=== PATIENT | male | born 1950 | race Caucasian/White ===

== ENCOUNTER 2016-06-10 13:35 | Inpatient (IN) | payer MEDICARE, OTHER ==
[~2016-06-10] VITALS: Ht 172.7 cm; Wt 76.8 kg
[~2016-06-10 13:35] MED LIST: /ADVA50050 IN; /ESOM40CA OR; /GLYB5TA OR; /MOXI40TA PO; /TIOT18INH INH; ACET20VL INH; ACET65TA OR; ADVAIR DISKUS 250/50 INH; ALBU83IN IN; ALBUTEROL INH; ALLE25CA OR; ASTE0.15; ASTELIN; ASTEPRO NASAL SPRAY; AVEL1TAB PO; AZIT250T3 PO; B-12100010 PO; BABY81CH OR; BACITAB3 PO; BACT800T OR; BIAX500T OR; CEFD300CAP PO; CEFT1INJ65 IV; CEFT2ADD IV; CEFT2INJ IV; CEFT500T OR; CELE10TA PO; CELE20TA PO; COMBAER6 INH; COMBVENT INH; DALI1TAB2 PO; DELT1TAB PO; FERR325T OR; FERR325T3 PO; FISHCAP PO; FLAG500T PO; FLUC10TA OR; FLUC10TA PO; FOLI1TAB OR; FOLI1TAB2 PO; GLYB25TA PO; GUAI1200 PO; IMOD2TAB14 PO; INSULANT SC; IRON CR PO; KETO0.4S OP; KETO5OPD OD; LASI20TA PO; LEVA750T PO; LIPI80TA PO; LIVA2TAB PO; LOPR50TA OR; LOPRESSOR OR; MEGA D PO; MEGA RED OMEGA PO; META800T82 PO; METO50TA2 PO; METO50TA4 OR; MUCI1TAB18 PO; MUCI600T34 PO; MUCINEX DM PO; MYCOSTATIN SS; NEUR300C OR; NITR0.4S SL; NITR4TASL SL; NYAM10003 SS; OCTAGAM IV; OMEP40CA2 PO; OXYGEN; PERCOCET PO; PERF20NE2 INH; PERFOROMIST INH; PLAV75TA PO; PLAV75TA2 OR; PRAV20TA2 OR; PRED10TA PO; PRED10TA2 OR; PRED10TA2 PO; PRED20TA OR; PRED20TA PO; PRED50TA OR; PRED50TA PO; PREDNISOLONE; PREDOPD; PROBCAP4 PO; PULM0.5S IN; PULM0.5S INH; PULM1SUS INH; RAMI25CA OR; RANI1TAB6 PO; RANI300T OR; ROCE1INJ IV; SALI0.9I2 IV; SKEL-29 PO; SKEL800T5 OR; SODI3NEB INH; THEO1CAP6 PO; THEO200T7 OR; TIOT18INH INH; TOPR50TA OR; TOPR50TA PO; TRAV0.00; TUDO1AER2 INH; TUDORZA PRESSAIR INH; TYLE325T5 PO; VENTAER IN; VENTOLIN; VENTOLIN INH; VICO5TAB OR; VIT D 2000 PO; VIT D 4000 PO; VITA10006 PO; VITA2000 PO; VITA250L PO; VITA500T OR; VITAMIN D 2 PO; ZANT300T OR; ZITH250T OR; ZOCO20TA PO; [UNRECOGNIZED DRUG - CODE] IV; [UNRECOGNIZED DRUG - CODE] IV; [UNRECOGNIZED DRUG - OTHER]; [UNRECOGNIZED DRUG - OTHER]; daliresp PO; loperamide PO; mucinex PO
[2016-06-10] MEDS ORDERED: IPRATROPIUM 0.5MG/ALBUTEROL 2.5MG INH SOL UD 3ML (DUONEB)(J7620) As Ordered ONE (14:22)
[2016-06-10 14:38] LABS: ABG BASE EXCESS 2.8 (-2.0-2.0); ABG DEVICE NASAL CANN; ABG HCO3 27.6 MEQ/L (22.0-26.0); ABG PARTIAL PRESSURE CO2 42.8 mmHg (35.0-45.0); ABG STANDARD HCO3 26.9 MEQ/L (22.0-26.0); ABG TOTAL CO2 28.9 MEQ/L (23.0-31.0); ABG pH (ARTERIAL) 7.427 UNITS (7.350-7.450)
[2016-06-10 14:44] LABS: BASO % 0.3 % (0.0-1.0); EOS % 0.3 % (0.0-3.0); LARGE UNSTAINED CELL # 0.3 K/mm3 (0.0-0.4); LARGE UNSTAINED CELL % 1.9 % (0.0-4.0); LYMPH # 0.5 K/mm3 (1.5-4.5); LYMPH % 3.8 % (24.0-44.0); MEAN CORPUSCULAR HEMOGLOBIN 32.9 pg (27.0-33.0); MEAN CORPUSCULAR HGB CONC 34.3 g/dl (32.0-36.5); MEAN CORPUSCULAR VOLUME 95.8 fl (80.0-96.0); MONO # 0.4 K/mm3 (0.0-0.8); MONO % 3.1 % (0.0-5.0); NEUTROPHILS # 12.7 K/mm3 (1.8-7.7); NEUTROPHILS % 90.6 % (36.0-66.0); PLATELET COUNT, AUTOMATED 209 k/mm3 (150-450); RED CELL DISTRIBUTION WIDTH 12.5 % (11.5-14.5)
[2016-06-10 15:06] LABS: ANION GAP 8 MEQ/L (8-16); BLOOD UREA NITROGEN 17 MG/DL (7-18); CALCIUM LEVEL 9.1 MG/DL (8.8-10.2); CARBON DIOXIDE LEVEL 30 MEQ/L (21-32); CHLORIDE LEVEL 99 MEQ/L (98-107); CREATININE FOR GFR 1.02 MG/DL (0.70-1.30); GLOMERULAR FILTRATION RATE > 60.0 (>49); GLUCOSE, FASTING 147 MG/DL (80-110); SODIUM LEVEL 137 MEQ/L (136-145)
[2016-06-10] MEDS ORDERED: methylPREDNISolone INJ 125 MG/2 ML VIAL (J2930) As Ordered ONE (15:14)
--- NOTE | 2016-06-10 15:21 | REP ---
CHEST, ONE VIEW: HISTORY: Chest pain. COMPARISON: 05/07/2016. There is elevation of the right hemidiaphragm. Increased density is present in the lower lobes consistent with scarring. The heart is normal in size. The pulmonary vasculature is normal in appearance. IMPRESSION: Bibasilar scarring. Signed by Wei Parker MD 06/10/2016 03:49 P
[2016-06-10 15:25] LABS: POTASSIUM SERUM 5.3 MEQ/L (3.5-5.1)
[2016-06-10] MEDS ORDERED: OSELTAMIVIR PHOSPHATE 75 MG CAP (TAMIFLU) As Ordered ONE (16:27)
[2016-06-10] MEDS ORDERED: ACETAMINOPHEN 325 MG TAB As Ordered ONE (16:27)
[2016-06-10] MEDS ORDERED: NITROGLYCERIN 0.4 MG SUBL TABLET SL PRN (18:00)
[2016-06-10] MEDS ORDERED: NS 1,000 ML IV SCH (18:09)
[2016-06-10] MEDS ORDERED: IPRATROPIUM 0.5MG/ALBUTEROL 2.5MG INH SOL UD 3ML (DUONEB)(J7620) NEB PRN (18:15)
[2016-06-10] MEDS ORDERED: ACETAMINOPHEN TAB 650MG DOSE (2X325MG) PO PRN (18:15)
[2016-06-10] MEDS ORDERED: ACETAMINOPHEN 650 MG SUPP PR PRN (18:15)
[2016-06-10] MEDS ORDERED: ONDANSETRON 4MG/2ML VIAL (J2405) IV PRN ×2 (18:15)
[2016-06-10] MEDS ORDERED: ALBU83IN INH (18:20)
[2016-06-10] MEDS ORDERED: IPRA2IN INH (18:20)
[2016-06-10] MEDS ORDERED: CETI10TA PO (18:20)
[2016-06-10] MEDS ORDERED: LOPE2TAB PO (18:20)
[2016-06-10] MEDS ORDERED: [UNRECOGNIZED DRUG - CODE] SC (18:20)
[2016-06-10] MEDS ORDERED: MAGN250T2 PO (18:20)
[2016-06-10] MEDS ORDERED: PRED20TA PO (18:20)
[2016-06-10] MEDS ORDERED: VITATAB11 PO (18:20)
[2016-06-10] MEDS ORDERED: RANI300T PO (18:20)
[2016-06-10] MEDS ORDERED: FLUC200T2 PO (18:21)
[2016-06-10] MEDS ORDERED: HIZENTRA SC SCH (19:15)
[2016-06-10] MEDS ORDERED: SODIUM CHLORIDE 0.9% 1000 ML IV ONE (19:45)
[2016-06-10] MEDS: FORMOTEROL FUMARATE 20 MCG/2 ML INHALATION SOLUTION (PERFOROMIST) INH SCH (20:00)
--- NOTE | 2016-06-10 20:03 | ECGEPIP ---
Stationary ECG Study [facility] - ED Test Date: 2016-06-10 Pat Name: MINOO CASTILLO Department: Room: - Gender: M Clearing Hand: Ria : 1950 Requested By: Mickie Bingham Order Number: [id number] Reading MD: Mickie Bingham Measurements Intervals Garrett Rate: 98 P: 38 NV: 137 QRS: 32 QRSD: 87 T: 81 QT: 326 QTc: 417 Interpretive Statements SINUS RHYTHM NONSPECIFIC ST & T-WAVE ABNORMALITY Electronically Signed On 06-10-2016 20:03:29 EST by Mickie Bingham
--- NOTE | 2016-06-10 20:42 | EDDOCDS ---
Physician Documentation [facility] Name: Casey Velasquez Age: 65 yrs Sex: Male : 1950 Arrival Date: 06/10/2016 Time: 13:35 Bed 15 Private MD: Blaze Ruano FPA Disposition: 06/10/16 17:29 Hospitalization ordered by Billy Angulo for Inpatient Admission. Preliminary diagnosis are Influenza due to identified novel influenza A virus with other manifestations, Chronic obstructive pulmonary disease with (acute) exacerbation. - Bed requested for PCU. - Status is Inpatient Admission. sls1 - Condition is Stable. - Problem is new. - Symptoms have improved. Historical: - Allergies: Isa; PENICILLINS; Quinine Sulfate; - Home Meds: 1. folic acid 1 mg Oral tab 1 tab once daily (Last dose: 06/10/2016 08:30) 2. Tudorza Pressair 400 mcg/actuation inhalation aepb 1 puff every 12 hours (Last dose: 06/10/2016 06:00) 3. albuterol sulfate 1.25 mg/3 mL Nebulizer nebu prn 4. Atrovent 0.02 % Nebulizer soln (Last dose: 06/10/2016 13:00) 5. Toprol XL 50 mg Oral Tb24 1 tab once daily (Last dose: 06/10/2016 08:30) 6. Perforomist 20 mcg/2 mL inhalation nebu 2 times per day (Last dose: 06/10/2016 06:00) 7. budesonide 0.5 mg/2 mL inhalation nbsp 2 times per day (Last dose: 06/10/2016 06:00) 8. Vitamin C 1,000 mg Oral tab daily (Last dose: 06/10/2016 08:30) 9. vitamin b daily (Last dose: 06/10/2016 08:30) 10. Vitamin D3 2,000 unit oral cap daily (Last dose: 06/10/2016 08:30) 11. virginie daily probiotic 1 tab daily (Last dose: 06/10/2016 08:30) 12. ferrous sulfate 325 mg (65 mg iron) Oral tab twice a day (Last dose: 06/10/2016 12:00) 13. magnesium 250mg daily (Last dose: 06/10/2016 12:00) 14. Plavix 75 mg Oral tab 1 tab once daily (Last dose: 06/09/2016 21:00) 15. nitroglycerin 0.4 mg SL subl 1 tab as needed 16. loperamide 2 mg Oral cap 2 caps daily (Last dose: 06/09/2016 21:00) 17. ranitidine HCl 300 mg Oral cap 1 cap nightly (Last dose: 06/09/2016 21:00) 18. Musinex 1200 mg twice a day (Last dose: 06/10/2016 08:30) 19. prednisone 20 mg Oral tab once daily (Last dose: 06/10/2016 08:30) 20. Livalo 2 mg oral tab 1 tab nightly (Last dose: 06/09/2016 21:00) 21. Skelaxin 800 mg Oral tab 3 times per day prn 22. Celexa 20 mg Oral tab 1 tab nightly (Last dose: 06/09/2016 21:00) 23. Zyrtec 10 mg Oral tab 1 tab once daily (Last dose: 06/10/2016 08:30) 24. saline neb twice a day 25. Oxygen 2 L NC daily 26. Hizentra subcutaneous subcutaneous once wkly (Last dose: 06/05/2016) - PMHx: COPD; Emphysema; Heart Disease; - PSHx: Cardiac stents; Laminectomy; Aortic Valve Replacement, Bovine; broncoscopy; - Social history: Smoking status: Patient states former smoker of tobacco. No barriers to communication noted, The patient speaks fluent [place], Speaks appropriately for age. - Family history: Not pertinent. - : The pt / caregiver states he / she is on anticoagulants: Plavix. Home medication list is obtained from the patient. - Exposure Risk Screening:: None identified. Vital Signs: 06/10 13:37 BP 132 / 87; Pulse 103; Resp 26 S; Temp 100.2(O); Pulse Ox 95% on 2 lpm NC; Weight dd6 80.74 kg / 178 lbs (R); Height 5 ft. 8 in. (172.72 cm) (R); 14:29 BP 118 / 66 (auto/); hs1 14:30 Pulse 96 MON; Pulse Ox 94% ; hs1 14:59 BP 124 / 80 (auto/); hs1 15:00 Pulse 108 MON; Pulse Ox 95% ; hs1 15:14 BP 123 / 89 (auto/); hs1 15:15 Pulse 110 MON; Pulse Ox 94% ; hs1 15:29 BP 125 / 83 (auto/); hs1 15:30 Pulse 112 MON; Pulse Ox 93% ; hs1 15:44 BP 128 / 81 (auto/); hs1 15:45 Pulse 114 MON; Pulse Ox 93% ; hs1 15:59 BP 133 / 82 (auto/); hs1 16:00 Pulse 112 MON; Pulse Ox 92% ; hs1 16:14 BP 122 / 81 (auto/); hs1 16:15 Pulse 110 MON; Pulse Ox 92% ; hs1 16:29 BP 123 / 82 (auto/); hs1 16:29 Pulse 108 MON; Resp 20; Temp 103.2(O); Pulse Ox 93% ; hs1 16:44 BP 118 / 80 (auto/); hs1 16:45 Pulse 106 MON; Pulse Ox 93% ; hs1 16:59 BP 120 / 82 (auto/); hs1 17:00 Pulse 104 MON; Pulse Ox 93% ; hs1 17:14 BP 115 / 74 (auto/); hs1 17:15 Pulse 100 MON; Pulse Ox 92% ; hs1 17:29 BP 112 / 71 (auto/); hs1 17:30 Pulse 98 MON; Pulse Ox 93% ; hs1 17:44 BP 111 / 70 (auto/); hs1 17:45 Pulse 94 MON; Pulse Ox 93% ; hs1 17:59 BP 114 / 73 (auto/); hs1 18:00 Pulse 92 MON; Pulse Ox 94% ; hs1 18:14 BP 116 / 74 (auto/); hs1 18:15 Pulse 92 MON; Pulse Ox 94% ; hs1 18:29 BP 133 / 88 (auto/); hs1 18:29 Pulse 92 MON; Pulse Ox 94% ; hs1 18:44 BP 131 / 89 (auto/); hs1 18:44 BP 131 / 89; Pulse 92 MON; Resp 18; Temp 98.6(O); Pulse Ox 94% ; Pain 0/10; hs1 20:33 BP 120 / 77; Pulse 92; Resp 18 S; Temp 98.5(O); Pulse Ox 95% on 2 lpm NC; af2 13:37 Body Mass Index 27.06 (80.74 kg, 172.72 cm) dd6 MDM: 13:59 ECG WITH READING ER PHYS+CARDIAG ordered. EDMS 14:06 -Blood Culture (Adults Only), peripheral from different site, or from device/port/PICC sd1 etc. if present ordered. 14:06 Call Respiratory ordered. sd1 14:06 Web Analyst/Pulse Ox/q 15 min VS ordered. sd1 14:06 IV Saline Lock ordered. sd1 14:06 Oxygen at 4L/Min NC or Home dosage ordered. sd1 14:06 Rhythm Strip to chart ordered. sd1 14:06 -Arterial Blood Gas Ordered. EDMS 14:06 -Blood Culture Ordered. EDMS 14:06 B-Type Natiuretic Peptide Ordered. EDMS 14:06 Basic Metabolic Profile Ordered. EDMS 14:06 CBC with Diff Ordered. EDMS 14:06 Cardiac Injury Profile Ordered. EDMS 14:06 Troponin Ordered. EDMS 14:06 Albuterol-Ipratropium 1 neb Nebulizer every 20 minutes x3 ordered. sd1 14:07 Solu-MEDROL 125 mg IVP once ordered. sd1 14:08 -Influenza A&B Rapid Antigen - Nose Ordered. EDMS 14:08 Chest, 1 View Ordered. EDMS 14:29 Call Respiratory complete. hs1 14:34 -Blood Culture (Adults Only), peripheral from different site, or from device/port/PICC lbd etc. if present complete. 14:38 BLOOD CULTURES Ordered. EDMS 15:19 Financial registration complete. gjb 15:23 [facility] [place] was scanned into [employer] and attached to record. gjb 16:24 Acetaminophen Tablet 650 mg PO once ordered. sd1 16:24 -Arterial Blood Gas Reviewed. sd1 16:24 Basic Metabolic Profile Reviewed. sd1 16:24 CBC with Diff Reviewed. sd1 16:24 -Influenza A&B Rapid Antigen - Nose Reviewed. sd1 16:24 B-Type Natiuretic Peptide Reviewed. sd1 16:24 Cardiac Injury Profile Reviewed. sd1 16:24 Troponin Reviewed. sd1 16:24 Chest, 1 View Reviewed. sd1 16:25 Oseltamivir 75 mg PO once ordered. sd1 17:13 Chest, 1 View Reviewed. sd1 17:14 BED REQUEST+ADM ordered. EDMS 17:39 Admission / Observation Status ordered. EDMS 17:54 Admission / Observation Status ordered. EDMS 18:16 URINALYSIS Ordered. EDMS 18:16 MAGNESIUM LEVEL Ordered. EDMS 18:17 LACTIC ACID LEVEL, LACTATE Ordered. EDMS 18:22 SPUTUM CULTURE AND GRAM STAIN Ordered. EDMS 19:08 CPAP INPATIENT ordered. EDMS 19:34 CBC WITH DIFFERENTIAL Ordered. EDMS 19:34 BASIC METABOLIC PROFILE Ordered. EDMS 19:36 LACTIC ACID LEVEL, LACTATE Ordered. EDMS 19:52 LOW FAT LOW CHOLESTEROL DIET ordered. EDMS Administered Medications: 14:28 Drug: Albuterol-Ipratropium 1 neb [ipratropium-albuterol 0.5 mg-3 mg(2.5 mg base)/3 mL sd7 nebulization soln (1 neb)] Route: Nebulizer; 14:41 Follow up: Response: Nebulizer completed 7 14:47 Drug: Albuterol-Ipratropium 1 neb [ipratropium-albuterol 0.5 mg-3 mg(2.5 mg base)/3 mL sd7 nebulization soln (1 neb)] Route: Nebulizer; 14:55 Follow up: Response: Nebulizer completed sd7 15:05 Drug: Albuterol-Ipratropium 1 neb [ipratropium-albuterol 0.5 mg-3 mg(2.5 mg base)/3 mL sd7 nebulization soln (1 neb)] Route: Nebulizer; 15:51 Follow up: Response: Nebulizer completed 7 15:17 Drug: Solu-MEDROL 125 mg [Solu-Medrol 500 mg intravenous solution (125 mg)] Route: IVP; hs1 Site: right forearm; 16:34 Drug: Acetaminophen 650 mg [acetaminophen 325 mg tablet (2 tabs)] Route: PO; hs1 16:34 Drug: Oseltamivir 75 mg [oseltamivir 75 mg capsule (1 caps)] Route: PO; hs1 Signatures: Dispatcher [employer] EDMS Mickie Bingham MD MD sd1 [address], [employer] lbd Miroslava Arreguin RN RN [facility] Mily FARRELL, SHOLA Randall RN, Hannah, RN RN hs1 Laine Moon RN RN sls1 Loreto Mary RN RN af2 Traci Cheng Samantha RT sd7 The chart was reviewed and I authenticate all verbal orders and agree with the evaluation and treatment provided.Corrections: (The following items were deleted from the chart) 18:21 18:15 LOW FAT LOW CHOLESTEROL DIET ordered. EDMS EDMS 18:58 18:21 CONSISTENT CARBOHYDRATES ordered. EDMS EDMS 19:36 19:34 COMPLETE BLOOD COUNT ordered. EDMS EDMS 19:52 18:59 LOW FAT LOW CHOLESTEROL DIET ordered. EDMS EDMS 19:55 19:34 RENAL PROFILE ordered. EDMS EDMS 19:55 19:52 LACTIC ACID LEVEL, LACTATE ordered. EDMS EDMS Attachments: 15:23 [facility] [place] gjb MTDD
--- NOTE | 2016-06-10 20:43 | EDDOCDS ---
Nurse's Notes [facility] Name: Casey Velasquez Age: 65 yrs Sex: Male : 1950 Arrival Date: 06/10/2016 Time: 13:35 Bed 15 Private MD: Blaze Ruano FPA Diagnosis: Influenza due to identified novel influenza A virus with other manifestations;Chronic obstructive pulmonary disease with (acute) exacerbation Presentation: 06/10 13:45 Presenting complaint: Patient states: chest pressure worsening over 3 days. started in [facility] back now in chest. pain does not radiate. admitted 3 weeks ago for strep pneumoniae in sputum. finished avelox Wednesday and last week was on rocephin injections for 7 days. bringing up a lot of thick stuff.SOB with speaking and exertion. Adult Sepsis Screening: The patient does not have new or worsening altered mentation. Patient has a respiratory rate of greater than or equal to 22 (1 point). Systolic blood pressure is greater than 100. Patient has a qSOFA score of 0- Negative Sepsis Screen. Suicide/Homicide risk assessment- the patient denies having any suicidal and/or homicidal ideations and does not present with any other emotional, behavioral or mental health complaints. Status: Patient is not a financial services consultant or dependent. Transition of care: patient was not received from another setting of care. 13:45 Acuity: ISABELL Level 2 [facility] 13:45 Method Of Arrival: Wheelchair [facility] 13:47 Aspirin was not taken prior to arrival. [facility] Triage Assessment: 13:55 General: Appears in no apparent distress, Behavior is appropriate for age, cooperative. srm Pain: Denies pain. Quality of pain is described as pressure. HIV screening NA for this visit Offered previously. Cardiovascular: Chest pain is described as vague, tight and pressure. radiates Does not radiate. episodes are continuous began 3-4 dfays. Historical: - Allergies: Isa; PENICILLINS; Quinine Sulfate; - Home Meds: 1. folic acid 1 mg Oral tab 1 tab once daily (Last dose: 06/10/2016 08:30) 2. Tudorza Pressair 400 mcg/actuation inhalation aepb 1 puff every 12 hours (Last dose: 06/10/2016 06:00) 3. albuterol sulfate 1.25 mg/3 mL Nebulizer nebu prn 4. Atrovent 0.02 % Nebulizer soln (Last dose: 06/10/2016 13:00) 5. Toprol XL 50 mg Oral Tb24 1 tab once daily (Last dose: 06/10/2016 08:30) 6. Perforomist 20 mcg/2 mL inhalation nebu 2 times per day (Last dose: 06/10/2016 06:00) 7. budesonide 0.5 mg/2 mL inhalation nbsp 2 times per day (Last dose: 06/10/2016 06:00) 8. Vitamin C 1,000 mg Oral tab daily (Last dose: 06/10/2016 08:30) 9. vitamin b daily (Last dose: 06/10/2016 08:30) 10. Vitamin D3 2,000 unit oral cap daily (Last dose: 06/10/2016 08:30) 11. virginie daily probiotic 1 tab daily (Last dose: 06/10/2016 08:30) 12. ferrous sulfate 325 mg (65 mg iron) Oral tab twice a day (Last dose: 06/10/2016 12:00) 13. magnesium 250mg daily (Last dose: 06/10/2016 12:00) 14. Plavix 75 mg Oral tab 1 tab once daily (Last dose: 06/09/2016 21:00) 15. nitroglycerin 0.4 mg SL subl 1 tab as needed 16. loperamide 2 mg Oral cap 2 caps daily (Last dose: 06/09/2016 21:00) 17. ranitidine HCl 300 mg Oral cap 1 cap nightly (Last dose: 06/09/2016 21:00) 18. Musinex 1200 mg twice a day (Last dose: 06/10/2016 08:30) 19. prednisone 20 mg Oral tab once daily (Last dose: 06/10/2016 08:30) 20. Livalo 2 mg oral tab 1 tab nightly (Last dose: 06/09/2016 21:00) 21. Skelaxin 800 mg Oral tab 3 times per day prn 22. Celexa 20 mg Oral tab 1 tab nightly (Last dose: 06/09/2016 21:00) 23. Zyrtec 10 mg Oral tab 1 tab once daily (Last dose: 06/10/2016 08:30) 24. saline neb twice a day 25. Oxygen 2 L NC daily 26. Hizentra subcutaneous subcutaneous once wkly (Last dose: 06/05/2016) - PMHx: COPD; Emphysema; Heart Disease; - PSHx: Cardiac stents; Laminectomy; Aortic Valve Replacement, Bovine; broncoscopy; - Social history: Smoking status: Patient states former smoker of tobacco. No barriers to communication noted, The patient speaks fluent French, Speaks appropriately for age. - Family history: Not pertinent. - : The pt / caregiver states he / she is on anticoagulants: Plavix. Home medication list is obtained from the patient. - Exposure Risk Screening:: None identified. Screenin:29 Screening information is obtained from the patient. Fall risk: No risks identified. hs1 Assistance ADL's: requires no assistance with activities of daily living. Abuse/DV Screen: The patient / caregiver reports he/she is: not in a situation that causes fear, pain or injury. Nutritional screening: No deficits noted. Advance Directives: There is no active DNR order. home support is adequate. Assessment: 14:20 General: Appears in no apparent distress, Behavior is appropriate for age. Pain: Denies hs1 pain. Neurological: No deficits noted. Cardiovascular: Rhythm is sinus rhythm No ectopy. Respiratory: Airway is patent Respiratory effort is labored, Respiratory pattern is regular, Breath sounds are diminished bilaterally. Breath sounds with wheezes. Derm: Skin is pink, warm & dry. normal. 15:38 Reassessment: Patient appears in no apparent distress at this time. Patient states hs1 symptoms have not improved. Pt still having SOB on exertion. Pt asking for drink at present. . 16:18 Reassessment: Patient appears in no apparent distress at this time. Adult Sepsis hs1 Screening: The patient does not have new or worsening altered mentation. Patient has a respiratory rate of greater than or equal to 22 (1 point). Systolic blood pressure is greater than 100. Patient has a qSOFA score of 0- Negative Sepsis Screen. General: Appears. General: Behavior is appropriate for age, cooperative. Pain: Denies pain. Cardiovascular: Rhythm is sinus rhythm. Respiratory: Airway is patent Respiratory effort is even, Respiratory pattern is regular, Breath sounds with wheezes bilaterally. Derm: Skin is normal, Skin temperature is hot. 17:35 Reassessment: Patient appears in no apparent distress at this time. Patient states hs1 symptoms have improved. Pt resting on stretcher aware of admission no needs at present. Pt wondering if Dr Angulo is integration assistant. Pt resting and is leaving at present due to weather conditions. . 18:06 General: Appears in no apparent distress, Behavior is appropriate for age, cooperative. hs1 Pain: Denies pain. Neurological: Level of Consciousness is awake, alert. Respiratory: Airway is patent Respiratory effort is even, Respiratory pattern is regular, Breath sounds are diminished bilaterally. Breath sounds with wheezes bilaterally. Reports shortness of breath on exertion. GI: No deficits noted. Derm: Skin is pink, warm & dry. 18:44 General: Appears in no apparent distress, Behavior is appropriate for age, cooperative. hs1 Neurological: Level of Consciousness is awake, alert. Cardiovascular: Rhythm is sinus rhythm No ectopy. Respiratory: Airway is patent Respiratory effort is even, unlabored, Respiratory pattern is regular, symmetrical. Derm: Skin is pink, warm & dry. 19:08 General: Appears in no apparent distress, Behavior is appropriate for age, cooperative, af2 assumed care of pt at this time, rr even and unlabored. pt eating meal.. Neurological: Level of Consciousness is awake, alert. Cardiovascular: Rhythm is sinus rhythm No ectopy. Respiratory: Airway is patent Respiratory effort is even, unlabored. Derm: Skin is normal. 19:47 General: Appears in no apparent distress, Behavior is appropriate for age, cooperative, af2 This policy writer called hospitalist to notify of critical value, lactic acid of 2.5. No new orders received. . 20:16 General: Appears in no apparent distress, Behavior is appropriate for age, cooperative, af2 pt assisted to use urinal at bedside at this time. updated regarding treatment plan at this time. . Vital Signs: 13:37 BP 132 / 87; Pulse 103; Resp 26 S; Temp 100.2(O); Pulse Ox 95% on 2 lpm NC; Weight dd6 80.74 kg (R); Height 5 ft. 8 in. (172.72 cm) (R); 14:29 BP 118 / 66 (auto/); hs1 14:30 Pulse 96 MON; Pulse Ox 94% ; hs1 14:59 BP 124 / 80 (auto/); hs1 15:00 Pulse 108 MON; Pulse Ox 95% ; hs1 15:14 BP 123 / 89 (auto/); hs1 15:15 Pulse 110 MON; Pulse Ox 94% ; hs1 15:29 BP 125 / 83 (auto/); hs1 15:30 Pulse 112 MON; Pulse Ox 93% ; hs1 15:44 BP 128 / 81 (auto/); hs1 15:45 Pulse 114 MON; Pulse Ox 93% ; hs1 15:59 BP 133 / 82 (auto/); hs1 16:00 Pulse 112 MON; Pulse Ox 92% ; hs1 16:14 BP 122 / 81 (auto/); hs1 16:15 Pulse 110 MON; Pulse Ox 92% ; hs1 16:29 BP 123 / 82 (auto/); hs1 16:29 Pulse 108 MON; Resp 20; Temp 103.2(O); Pulse Ox 93% ; hs1 16:44 BP 118 / 80 (auto/); hs1 16:45 Pulse 106 MON; Pulse Ox 93% ; hs1 16:59 BP 120 / 82 (auto/); hs1 17:00 Pulse 104 MON; Pulse Ox 93% ; hs1 17:14 BP 115 / 74 (auto/); hs1 17:15 Pulse 100 MON; Pulse Ox 92% ; hs1 17:29 BP 112 / 71 (auto/); hs1 17:30 Pulse 98 MON; Pulse Ox 93% ; hs1 17:44 BP 111 / 70 (auto/); hs1 17:45 Pulse 94 MON; Pulse Ox 93% ; hs1 17:59 BP 114 / 73 (auto/); hs1 18:00 Pulse 92 MON; Pulse Ox 94% ; hs1 18:14 BP 116 / 74 (auto/); hs1 18:15 Pulse 92 MON; Pulse Ox 94% ; hs1 18:29 BP 133 / 88 (auto/); hs1 18:29 Pulse 92 MON; Pulse Ox 94% ; hs1 18:44 BP 131 / 89 (auto/); hs1 18:44 BP 131 / 89; Pulse 92 MON; Resp 18; Temp 98.6(O); Pulse Ox 94% ; Pain 0/10; hs1 20:33 BP 120 / 77; Pulse 92; Resp 18 S; Temp 98.5(O); Pulse Ox 95% on 2 lpm NC; af2 13:37 Body Mass Index 27.06 (80.74 kg, 172.72 cm) dd6 Vitals: 13:37 Log In Time: June 10, 2016 at 13:35. RN notified that patient meets Red Flag dd6 criteria. ED Course: 13:37 Patient visited by Bradly Ramírez PCA. dd6 13:37 Blaze Ruano is Private Physician. dd6 13:37 Patient moved to Waiting dd6 13:45 Patient moved to 15 srm 13:47 Triage Initiated srm 13:55 Mickie Bingham MD is Attending Physician. sd1 13:59 Patient visited by Mickie Bingham MD. sd1 14:18 EKG done. (by ED staff). Reviewed by Mickie Bingham MD. jml1 14:19 Patient visited by Errol Gaitan. jml1 14:25 Inserted saline lock: 20 gauge in right forearm and blood collected. The patient hs1 tolerated the procedure well. 14:29 -Blood Culture Sent. hs1 14:29 B-Type Natiuretic Peptide Sent. hs1 14:29 Basic Metabolic Profile Sent. hs1 14:29 CBC with Diff Sent. hs1 14:29 Cardiac Injury Profile Sent. hs1 14:29 Troponin Sent. hs1 14:32 -Arterial Blood Gas Sent. sd7 15:17 Patient visited by Giana Phillip RN. hs1 15:23 [facility] was scanned into [employer] and attached to record. gjb 15:44 Chest, 1 View Returned. EDMS 15:51 BLOOD CULTURES Sent. jml1 16:18 Patient visited by Giana Phillip RN. hs1 16:34 Chest, 1 View Returned. EDMS 16:36 The patient / caregiver is instructed regarding the plan of care and ED course. Cardiac hs1 monitor on. Pulse ox on. NIBP on. 17:02 Patient visited by Yvan Celaya PCA. jlf 17:29 Billy Angulo DO is Hospitalizing Provider. sd1 18:50 Patient visited by Giana Phillip RN. hs1 19:04 Loreto Mary,SHOLA is Primary Nurse. af2 19:09 Patient visited by Loreto Mary RN. af2 19:48 Patient visited by Loreto Mary,RN. af2 20:06 EKG-ADULT Returned. EDMS 20:15 No procedures done that require assistance. af2 20:16 Patient visited by Loreto Mary RN. af2 20:17 Patient visited by Loreto Mary RN. af2 20:26 URINALYSIS Sent. af2 20:27 Patient visited by Loreto Mary RN. af2 Administered Medications: 14:28 Drug: Albuterol-Ipratropium 1 neb [ipratropium-albuterol 0.5 mg-3 mg(2.5 mg base)/3 mL sd7 nebulization soln (1 neb)] Route: Nebulizer; 14:41 Follow up: Response: Nebulizer completed sd7 14:47 Drug: Albuterol-Ipratropium 1 neb [ipratropium-albuterol 0.5 mg-3 mg(2.5 mg base)/3 mL sd7 nebulization soln (1 neb)] Route: Nebulizer; 14:55 Follow up: Response: Nebulizer completed sd7 15:05 Drug: Albuterol-Ipratropium 1 neb [ipratropium-albuterol 0.5 mg-3 mg(2.5 mg base)/3 mL sd7 nebulization soln (1 neb)] Route: Nebulizer; 15:51 Follow up: Response: Nebulizer completed sd7 15:17 Drug: Solu-MEDROL 125 mg [Solu-Medrol 500 mg intravenous solution (125 mg)] Route: IVP; hs1 Site: right forearm; 16:34 Drug: Acetaminophen 650 mg [acetaminophen 325 mg tablet (2 tabs)] Route: PO; hs1 16:34 Drug: Oseltamivir 75 mg [oseltamivir 75 mg capsule (1 caps)] Route: PO; hs1 Output: 20:27 Urine: 600.00ml (Voided); Total: 600.00ml. af2 RT: 14:25 ABG's drawn from left radial artery allens test done and positive pressure held for 5 sd7 minutes no bleeding noted pressure bandage applied specimen sent pt. tolerated well. 14:28 Initial Med Neb Given as ordered Patient was instructed and evaluated on procedure sd7 Patient tolerated procedure well without adverse effect. Respiratory: Breath sounds are diminished bilaterally. Breath sounds with wheezes bilaterally. at expiration. 14:50 Subsequent Med Neb Given as ordered Patient tolerated procedure well without adverse sd7 effect. Respiratory: Breath sounds are diminished bilaterally. Breath sounds with wheezes bilaterally. at expiration. 15:05 Subsequent Med Neb Given as ordered Patient tolerated procedure well without adverse sd7 effect. Respiratory: Breath sounds are diminished bilaterally. Breath sounds with wheezes bilaterally. at expiration. Order Results: Lab Order: -Arterial Blood Gas; SPEC'06/10/16 14:24 Test: ABG pH (ARTERIAL); Value: 7.427; Range: 7.350-7.450; Units: UNITS; Status: F Test: ABG PARTIAL PRESSURE CO2; Value: 42.8; Range: 35.0-45.0; Units: mmHg; Status: F Test: ABG PARTIAL PRESSURE O2; Value: 66.0; Range: 75.0-100.0; Abnormal: Below low normal; Units: mmHg; Status: F Test: ABG TOTAL CO2; Value: 28.9; Range: 23.0-31.0; Units: MEQ/L; Status: F Test: ABG HCO3; Value: 27.6; Range: 22.0-26.0; Abnormal: Above high normal; Units: MEQ/L; Status: F Test: ABG BASE EXCESS; Value: 2.8; Range: -2.0-2.0; Abnormal: Above high normal; Status: F Test: ABG STANDARD HCO3; Value: 26.9; Range: 22.0-26.0; Abnormal: Above high normal; Units: MEQ/L; Status: F Test: ABG O2 SATURATION; Value: 93.6; Range: 95.0-99.0; Abnormal: Below low normal; Units: %; Status: F Test: ABG DEVICE; Value: NASAL BHAVESH; Status: F Lab Order: B-Type Natiuretic Peptide; SPEC'06/10/16 14:31 Test: BRAIN NATRIURETIC PEPTIDE; Value: 27.4; Range: <100; Units: PG/ML; Status: F Lab Order: Basic Metabolic Profile; SPEC'06/10/16 14:31 Test: GLUCOSE, FASTING; Value: 147; Range: 80-110; Abnormal: Above high normal; Units: MG/DL; Status: F Test: BLOOD UREA NITROGEN; Value: 17; Range: 7-18; Units: MG/DL; Status: F Test: CREATININE FOR GFR; Value: 1.02; Range: 0.70-1.30; Units: MG/DL; Status: F Test: GLOMERULAR FILTRATION RATE; Value: > 60.0; Range: >49; Status: F Test: SODIUM LEVEL; Value: 137; Range: 136-145; Units: MEQ/L; Status: F Test: POTASSIUM SERUM; Value: 5.3; Range: 3.5-5.1; Abnormal: Above high normal; Units: MEQ/L; Status: F Test: CHLORIDE LEVEL; Value: 99; Range: 98-107; Units: MEQ/L; Status: F Test: CARBON DIOXIDE LEVEL; Value: 30; Range: 21-32; Units: MEQ/L; Status: F Test: ANION GAP; Value: 8; Range: 8-16; Units: MEQ/L; Status: F Test: CALCIUM LEVEL; Value: 9.1; Range: 8.8-10.2; Units: MG/DL; Status: F Test Note: ; Units are mL/min/1.73 m2 Chronic Kidney Disease Staging per NKF: Stage I & II GFR >=60 Normal to Mildly Decreased Stage III GFR 30-59 Moderately Decreased Stage IV GFR 15-29 Severely Decreased Stage V GFR <15 Very Little GFR Left ESRD GFR <15 on FITNESS TRAINER Lab Order: CBC with Diff; SPEC'M 06/10/16 14:31 Test: WHITE BLOOD COUNT; Value: 14.0; Range: 4.0-10.0; Abnormal: Above high normal; Units: K/mm3; Status: F Test: RED BLOOD COUNT; Value: 4.45; Range: 4.30-6.10; Units: M/mm3; Status: F Test: HEMOGLOBIN; Value: 14.6; Range: 14.0-18.0; Units: g/dl; Status: F Test: HEMATOCRIT; Value: 42.6; Range: 42.0-52.0; Units: %; Status: F Test: MEAN CORPUSCULAR VOLUME; Value: 95.8; Range: 80.0-96.0; Units: fl; Status: F Test: MEAN CORPUSCULAR HEMOGLOBIN; Value: 32.9; Range: 27.0-33.0; Units: pg; Status: F Test: MEAN CORPUSCULAR HGB CONC; Value: 34.3; Range: 32.0-36.5; Units: g/dl; Status: F Test: RED CELL DISTRIBUTION WIDTH; Value: 12.5; Range: 11.5-14.5; Units: %; Status: F Test: PLATELET COUNT, AUTOMATED; Value: 209; Range: 150-450; Units: k/mm3; Status: F Test: NEUTROPHILS %; Value: 90.6; Range: 36.0-66.0; Abnormal: Above high normal; Units: %; Status: F Test: LYMPH %; Value: 3.8; Range: 24.0-44.0; Abnormal: Below low normal; Units: %; Status: F Test: MONO %; Value: 3.1; Range: 0.0-5.0; Units: %; Status: F Test: EOS %; Value: 0.3; Range: 0.0-3.0; Units: %; Status: F Test: BASO %; Value: 0.3; Range: 0.0-1.0; Units: %; Status: F Test: LARGE UNSTAINED CELL %; Value: 1.9; Range: 0.0-4.0; Units: %; Status: F Test: NEUTROPHILS #; Value: 12.7; Range: 1.8-7.7; Abnormal: Above high normal; Units: K/mm3; Status: F Test: LYMPH #; Value: 0.5; Range: 1.5-4.5; Abnormal: Below low normal; Units: K/mm3; Status: F Test: MONO #; Value: 0.4; Range: 0.0-0.8; Units: K/mm3; Status: F Test: EOS #; Value: 0.0; Range: 0.0-0.50; Units: K/mm3; Status: F Test: BASO #; Value: 0.0; Range: 0.0-0.2; Units: K/mm3; Status: F Test: LARGE UNSTAINED CELL #; Value: 0.3; Range: 0.0-0.4; Units: K/mm3; Status: F Lab Order: Cardiac Injury Profile; SPEC'M 06/10/16 14:31 Test: CPK CREATINE PHOSPHOKINASE; Value: 84; Range: 39-308; Units: U/L; Status: F Test: CK-MB VALUE MASS; Value: 1.6; Range: 0.0-3.6; Units: NG/ML; Status: F Test: MB/CK RELATIVE INDEX; Value: 1.90; Range: < OR =4; Status: F Test Note: ; DIAGNOSIS CRITERIA MMB ng/ml Relative Index (RI) NON-AMI < or = 5 N/A CUEVAS ZONE > 5 < or = 4 AMI > 5 > 4 Lab Order: Troponin; SPEC'M 06/10/16 14:31 Test: TROPONIN I; Value: < 0.02; Range: < 0.10; Units: NG/ML; Status: F Test Note: ; Troponin I Reference Interval for [employer] LOCI: 99th Percentile= 0.00-0.045 ng/ml Risk Stratification: <= 0.10 ng/ml Decreased Risk for Adverse Clinical Events. 0.10-1.50 ng/ml Increased Risk for Adverse Clinical Events. Evaluation of additional criterion and/or repeat testing in 2-6 hours is suggested to rule out myocardial damage. >= 1.50 ng/ml Indicative of Myocardial Injury. Lab Order: -Influenza A&B Rapid Antigen - Nose; SPEC'M 06/10/16 14:31 Test: INFLUENZA A RAPID SCR by ICA; Value: INFLUENZA A RESULTS POSITIVE; Abnormal: Abnormal; Status: F Test: INFLUENZA A RAPID SCR by ICA; Value: Comments:; Status: F Test: INFLUENZA B RAPID SCR by ICA; Value: INFLUENZA B RESULTS NEGATIVE; Status: F Test Note: ; The Influenza test is a direct rapid immunoassay for the qualitative detection of Influenza viral antigen. Cell culture (Viral Culture) testing should be considered to confirm NEGATIVE results and to assist in detecting other viruses that can provide similar clinical symptoms. Please contact the lab within 24 hours ([phone]) if confirmatory testing is desired. Lab Order: MAGNESIUM LEVEL; SPEC'M 06/10/16 18:48 Test: MAGNESIUM LEVEL; Value: 2.3; Range: 1.8-2.4; Units: MG/DL; Status: F Lab Order: LACTIC ACID LEVEL, LACTATE; SPEC'M 06/10/16 18:48 Test: LACTIC ACID LEVEL, LACTATE; Value: 2.5; Range: 0.4-2.0; Abnormal: Above upper panic limits; Units: MMOL/L; Status: F Radiology Order: EKG-ADULT Test: EKG-ADULT REASON FOR EXAMINATION: Chest Pain; Stationary ECG Study; [facility] - ED; ; Test Date: 2016-06-10; Pat Name: CASEY VELASQUEZ Department:; Room: -; Gender: M Validation Architect: JT; : 1950 Requested By: Mickie Bingham; Order Number: [id number] Reading MD: Mickie Bingham; Measurements; Intervals [place]; Rate: 98 P: 38; ID: [id number] QRS: 32; QRSD: 87 T: 81; QT: 326; QTc: 417; Interpretive Statements; SINUS RHYTHM; NONSPECIFIC ST T-WAVE ABNORMALITY; ; Electronically Signed On 06-10-2016 20:03:29 EST by Mickie Bingham; Radiology Order: Chest, 1 View Test: Chest, 1 View REASON FOR EXAMINATION: Chest Pain; CHEST, ONE VIEW:; ; HISTORY: Chest pain.; ; COMPARISON: 05/07/2016.; ; There is elevation of the right hemidiaphragm. Increased density is present in; the lower lobes consistent with scarring. The heart is normal in size. The; pulmonary vasculature is normal in appearance.; ; IMPRESSION:; ; Bibasilar scarring.; ; ; Signed by; Wei Parker MD 06/10/2016 03:49 P; Outcome: 17:29 Decision to Hospitalize by Provider. sd1 20:15 Discharge Assessment: Patient awake, alert and oriented x 3. No cognitive and/or af2 functional deficits noted. Patient verbalized understanding of disposition instructions. patient administered narcotics - no. The following High Risk Discharge criteria are identified: None. Admitted to PCU accompanied by nurse, accompanied by tech, via stretcher, with oxygen, on monitor, with chart. Condition: stable. No special radiology studies were completed. Property :Personal belongings accompany Pt. 20:41 Patient left the ED. sls1 Signatures: Dispatcher [employer] Mickie Garrett MD MD sd1 Miroslava Arreguin, SHOLA RN Bradly Enriquez, MANAGER FINANCIAL MANAGER FINANCIAL dd6 Giana Phillip RN RN hs1 Laine Moon RN RN sls1 Errol Gaitan Jordain, MANAGER FINANCIAL MANAGER FINANCIAL jlf Omayra Britt,RT RT sd7 Loreto Mary,RN RN af2 Traci Chengb Corrections: (The following items were deleted from the chart) 13:40 13:37 BP 132 / 87; Pulse 103bpm; Resp 26bpm; Spontaneous; Pulse Ox 95% RA; Temp 100.2F dd6 Oral; 80.74 kg Reported; Height 5 ft. 8 in. Reported; BMI: 27.0; dd6 MTDD
[2016-06-10 20:45] VITALS: BP 137/73
[2016-06-10] MEDS: HumaLOG INSULIN (NovoLOG) PER UNIT SC SCH (21:00)
[2016-06-10] MEDS ORDERED: DOCUSATE SODIUM 100 MG CAP PO SCH (21:00)
[2016-06-10] MEDS ORDERED: FAMOTIDINE 20 MG TAB PO SCH (21:00)
[2016-06-10] MEDS ORDERED: LevoFLOXacin 750 MG in APPROPRIATE DILUENT 1 EA IV SCH (22:00)
[2016-06-10] MEDS: methylPREDNISolone INJ 125 MG/2 ML VIAL (J2930) IV SCH (22:21)
[2016-06-10] MEDS: guaiFENesin ER 600 MG TAB PO SCH (22:22)
[2016-06-10] MEDS: LOPERAMIDE 2 MG CAP PO SCH (22:22)
[2016-06-10] MEDS: FAMOTIDINE 20 MG TAB PO SCH (22:22)
[2016-06-10] MEDS: HEPARIN SOD (PORCINE) 5000 UNITS/ML VIAL SC SCH (22:22)
[2016-06-10] MEDS: FERROUS SULFATE 325MG TAB PO SCH (22:22)
[2016-06-10] MEDS: DOXYCYCLINE HYCLATE 100 MG TAB PO SCH (22:23)
[2016-06-10] MEDS: CLOPIDOGREL 75 MG TAB PO SCH (22:23)
[2016-06-10] MEDS: SENOKOT S TAB PO SCH (22:23)
[2016-06-10] MEDS: CitaloPRAM (CeleXA) 20 MG TAB PO SCH (22:23)
[2016-06-10] MEDS: OSELTAMIVIR PHOSPHATE 75 MG CAP (TAMIFLU) PO SCH (22:23)
[2016-06-11] VITALS: BP 138/86
[2016-06-11] MEDS ORDERED: IPRATROPIUM 0.5MG/ALBUTEROL 2.5MG INH SOL UD 3ML (DUONEB)(J7620) NEB SCH
[2016-06-11] MEDS: IPRATROPIUM 0.5MG/ALBUTEROL 2.5MG INH SOL UD 3ML (DUONEB)(J7620) NEB SCH ×3 (00:14→15:30)
[2016-06-11] MEDS: BUDESONIDE 0.5 MG/2 ML INHALATION SUSPENSION INH SCH ×3 (00:14→19:38)
[2016-06-11] MEDS ORDERED: GLUCAGON FOR INJ 1 MG VIAL (J1610) SC PRN (00:45)
[2016-06-11] MEDS ORDERED: GLUCOSE 4 GM CHEW TABLET PO PRN (00:45)
[2016-06-11] MEDS ORDERED: DEXTROSE 50% 50 ML SYRINGE IV PRN (00:45)
[2016-06-11] MEDS ORDERED: SODIUM CHLORIDE 0.9% 1000 ML IV ONE (00:45)
[2016-06-11 04:00] VITALS: BP 135/81
[2016-06-11] MEDS: methylPREDNISolone INJ 125 MG/2 ML VIAL (J2930) IV SCH ×3 (04:07→14:35)
[2016-06-11] MEDS: IPRATROPIUM 0.5MG/ALBUTEROL 2.5MG INH SOL UD 3ML (DUONEB)(J7620) NEB PRN (04:10)
[2016-06-11 06:07] LABS: BASO % 0.1 % (0.0-1.0); EOS % 0.4 % (0.0-3.0); LARGE UNSTAINED CELL # 0.1 K/mm3 (0.0-0.4); LARGE UNSTAINED CELL % 0.7 % (0.0-4.0); LYMPH # 0.4 K/mm3 (1.5-4.5); LYMPH % 4.1 % (24.0-44.0); MEAN CORPUSCULAR HEMOGLOBIN 32.1 pg (27.0-33.0); MEAN CORPUSCULAR HGB CONC 33.6 g/dl (32.0-36.5); MEAN CORPUSCULAR VOLUME 95.5 fl (80.0-96.0); MONO # 0.3 K/mm3 (0.0-0.8); MONO % 2.9 % (0.0-5.0); NEUTROPHILS # 9.1 K/mm3 (1.8-7.7); NEUTROPHILS % 91.7 % (36.0-66.0); PLATELET COUNT, AUTOMATED 193 k/mm3 (150-450); RED CELL DISTRIBUTION WIDTH 12.6 % (11.5-14.5)
[2016-06-11] MEDS: HEPARIN SOD (PORCINE) 5000 UNITS/ML VIAL SC SCH ×3 (06:25→21:13)
[2016-06-11 06:28] LABS: ANION GAP 12 MEQ/L (8-16); BLOOD UREA NITROGEN 17 MG/DL (7-18); CARBON DIOXIDE LEVEL 25 MEQ/L (21-32); CHLORIDE LEVEL 99 MEQ/L (98-107); CREATININE FOR GFR 0.95 MG/DL (0.70-1.30); GLOMERULAR FILTRATION RATE > 60.0 (>49); GLUCOSE, FASTING 184 MG/DL (80-110); POTASSIUM SERUM 4.4 MEQ/L (3.5-5.1); SODIUM LEVEL 136 MEQ/L (136-145)
[2016-06-11] MEDS: FORMOTEROL FUMARATE 20 MCG/2 ML INHALATION SOLUTION (PERFOROMIST) INH SCH ×2 (07:27→19:38)
[2016-06-11 08:00] VITALS: BP 154/90
[2016-06-11] MEDS: HumaLOG INSULIN (NovoLOG) PER UNIT SC SCH ×4 (08:01→21:00)
[2016-06-11] MEDS: AZTREONAM 2 GM in D5W MINI-BAG PLUS 100 ML IV SCH ×3 (08:01)
[2016-06-11] MEDS ORDERED: ROFLUMILAST 500 MCG TAB (DALIRESP) PO SCH (09:00)
[2016-06-11] MEDS ORDERED: ENOXAPARIN 40 MG/0.4 ML SYRINGE (J1650) SC SCH (09:00)
[2016-06-11] MEDS: LACTOBACILLUS ACIDOPHILUS CAP (BACID) PO SCH (09:18)
[2016-06-11] MEDS: FERROUS SULFATE 325MG TAB PO SCH ×2 (09:18→21:14)
[2016-06-11] MEDS: guaiFENesin ER 600 MG TAB PO SCH ×2 (09:18→21:11)
[2016-06-11] MEDS: DOXYCYCLINE HYCLATE 100 MG TAB PO SCH (09:18)
[2016-06-11] MEDS: CETIRIZINE (ZyrTEC) 10 MG TAB PO SCH (09:18)
[2016-06-11] MEDS: OSELTAMIVIR PHOSPHATE 75 MG CAP (TAMIFLU) PO SCH ×2 (09:18→21:12)
[2016-06-11] MEDS: VITAMIN B COMPLEX/VIT C CAP PO SCH (09:18)
[2016-06-11] MEDS: VITAMIN D 1,000 INTERNATIONAL UNITS TABLET PO SCH (09:18)
[2016-06-11] MEDS: METOPROLOL SUCC (TopROL XL) 50MG **XL** TAB PO SCH (09:19)
[2016-06-11] MEDS: OMEPRAZOLE 20 MG CAP PO SCH (09:19)
[2016-06-11] MEDS: LOPERAMIDE 2 MG CAP PO SCH ×2 (09:19→21:12)
[2016-06-11] MEDS: SENOKOT S TAB PO SCH ×2 (09:19→21:13)
[2016-06-11] MEDS: ASCORBIC ACID 500 MG TAB PO SCH (09:19)
[2016-06-11] MEDS: FOLIC ACID 1 MG TAB PO SCH (09:19)
[2016-06-11] MEDS: MEROPENEM INJ 500 MG in D5W MINI-BAG PLUS 100 ML IV SCH ×2 (11:52→17:10)
[2016-06-11 12:00] VITALS: BP 154/82
--- NOTE | 2016-06-11 13:49 | HPE ---
DATE OF ADMISSION: 06/10/2016 TIME PATIENT WAS SEEN: 18:00 PRIMARY CARE PROVIDER: Blaze Ruano PA-C RABBIT BREEDER: Dr. Kline INFECTIOUS DISEASE SPECIALIST: Dr. Davis RESIDENTIAL SALES REPRESENTATIVE: Dr. Otoole CHIEF COMPLAINT: Fever, chills, coughing, shortness of breath. HISTORY OF PRESENT ILLNESS: 65-year-old male with past medical history of chronic obstructive pulmonary disease, autoimmune deficiency receiving transfusion weekly, coronary artery disease, status post stent placement, obstructive sleep apnea, recurrent pneumonias, hyperglycemia secondary to steroid use, common variable immune deficiency, chronically elevated lactic acid level secondary to albuterol use, also anxiety, vitamin D deficiency, iron deficiency anemia, hyperlipidemia, aortic valve disease status post bioprosthetic valve replacement presented with shortness of breath, chest pressure started 3 days ago. It has been getting worse and, per patient, he also has some chills. In addition, he was admitted about a month ago due to chronic obstructive pulmonary disease (COPD) exacerbation and recurrent pneumonia, and patient was placed on Avelox and also Rocephin recently. Patient got better, however, it has worsened again three days ago. Per patient, he was on 2 liters of nasal cannula oxygen at home at night before the last episode; however, since discharged from last admission, patient has been on oxygen 24 hours a day. In addition, he has significant common variable immune deficiency, has been receiving infusions on a monthly basis for the past six years. However, for the past three months his infections are getting more frequent. Therefore, he has been getting weekly injection at home, and he also follows Dr. Otoole for the injection. He also sees Dr. Davis, infectious disease, and also Dr. Kline for pulmonology. Otherwise, patient also admits to some cough, has a small amount of thick mucusy sputum which was grayish in color. Denies any objective fever. Denies any recent traveling or sick contact and nothing seems to make the breathing worse or better. ALLERGIES: Patient is allergic to ASPIRIN, FEXOFENADINE, PENICILLIN, and QUININE. Aspirin causes rectal bleed. Quinine causes swelling and rash. Penicillin caused throat and face swelling. Fexofenadine causes anaphylaxis reaction and, however, patient was able to take Benadryl. HOME MEDICATIONS: Including; - albuterol 2.5 mg one inhalation twice a day - Combivent Respimat 2100 mcg one puff inhalation four times a day as needed - vitamin C 1000 mg one tablet by mouth every day - vitamin B complex one tablet by mouth every day - Pulmicort 0.5 mg one inhalation twice a day - Cetirizine 10 mg one tablet by mouth every day - vitamin D3 2000 units one tablet by mouth every day - Celexa 20 mg one tablet by mouth at bedtime - Plavix 75 mg one tablet by mouth at bedtime - ferrous sulfate 325 mg one tablet by mouth twice a day - fluconazole 200 mg one tablet by mouth every weekly on - folic acid 1 mg one tablet by mouth every day - Perforomist 20 mcg inhalation twice a day - guaifenesin 1200 mg one tablet by mouth twice a day - Hizentra injection subcutaneously every week - ipratropium bromide 0.5 mg one inhalation every day - probiotic one tablet by mouth every day - loperamide 4 mg one tablet by mouth twice a day - magnesium 250 mg one tablet by mouth every day - metoprolol succinate 50 mg one tablet by mouth every day - nitroglycerin 0.4 mg sublingual every 5 minutes as needed - omeprazole 40 mg one tablet by mouth every day - Livalo 2 mg one tablet by mouth at bedtime - prednisone 20 mg one tablet by mouth daily - ranitidine one tablet by mouth at bedtime - Tudorza Pressair 400 mcg one inhalation twice a day PAST MEDICAL HISTORY: Including; 1. Severe chronic obstructive pulmonary disease, 2 liters of oxygen 24 hours a day since last admission. Follows Dr. Kline. 2. Variable immunodeficiency. 3. Coronary artery disease status post stent placement. 4. Aortic valve disease status post aortic valve replacement. 5. Obstructive sleep apnea on continuous positive airway pressure (CPAP) at night. 6. History of pneumothorax. 7. History of diverticulitis. 8. History of dyslipidemia. 9. History of borderline diabetic mellitus. 10. History of cataract disease. 11. History of osteoarthritis and back problems. 12. Thrush. 13. Bolus on CT. 14. Bronchiectasis. SURGICAL HISTORY: 1. Cardiac stent placement 2. Laminectomy. 3. Aortic valve placement with bioprosthetic valve placement. SOCIAL HISTORY: Patient lives with his at home. Denies any smoking, drinking, or recreational drug use. Patient, however, did smoke 6 years ago and used to smoke one pack per day for 30 years. FAMILY HISTORY: Patient's grandfather had colon cancer. Father and father's siblings had heart disease and his children also have diabetes. REVIEW OF SYSTEMS: GENERAL: Patient denies any recent weight changes, any recent traveling or sick contact. Admits to fever and chills. HEENT: Denies any changes with vision, smell, hearing, or taste. Admits to cough. Admits to some sore throat. Admits to sputum production. CARDIOVASCULAR: Denies any chest pain. Admits to chest pressure. Admits to coughing. Admits to shortness of breath. PULMONARY: Admits to shortness of breath. Admits to emphysema, chronic obstructive pulmonary disease, also was on oxygen 2 liters 24 hours a day prior to this admission. GI: Denies any abdominal pain, any nausea, vomiting, diarrhea, constipation : Denies any problem with urination. Denies any blood in the urine. MUSCULOSKELETAL: Denies any pain anywhere. HEMATOLOGY/ONCOLOGY: Denies any bruising or any bleeding anywhere. ENDOCRINE: Denies any diabetes. Denies any heat or cold intolerance. PSYCH: Denies any depression or anxiety. NEURO: Denies any weakness on any side of his body. Any change of sensation. PHYSICAL EXAMINATION: VITAL SIGNS: Blood pressure 123/82, pulse 108, respiration 20, temperature 103.2. Oxygen was saturating at 93% on 2 liters of nasal cannula. Weight was 80 kg, height was 172 cm. GENERAL: Patient is a obese elderly male who was alert, awake, and oriented times three. Does not appear to be in distress, sitting up comfortably in bed with head elevated at 60 degrees. HEENT: Normocephalic, atraumatic . Extraocular motor intact. Mucous moist. NECK: Supple. No neck lymphadenopathy. CARDIOVASCULAR: Regular rate and rhythm. S1, S2. Patient does have a 2/6 systolic heart murmur. LUNGS: Diffuse wheezing bilaterally and poor air movement. ABDOMEN: Positive bowel sounds. Obese, soft, nontender, nondistended, no peritoneal signs. No ecchymosis. EXTREMITIES: No edema, clubbing or cyanosis. SKIN: Warm and dry. NEURO: Cranial nerves II through XII intact. No focal neurologic deficit. LABS: WBC 14, hemoglobin 14.6, hematocrit 42.6, platelet count of 209. MCV of 95.8. Neutrophil count was 90% and lymphocyte count was 3.8%. Sodium 137, potassium 5.3, chloride 99, bicarbonate 30, BUN 17, creatinine 1.02. Glomerular filtration rate (GFR) greater than 60. Fasting glucose 147, lactic acid 2.5, magnesium 3.2. Total CK 84, CKMB 1.6, troponin less than 0.02. BNP was 27.4. Patient had ABG done in the emergency room, shows a pH of 7.427, PCO2 42.8, PO2 66, and bicarbonate was 27. Oxygen sating was 93.6%. Base excess was 2.8 on 2 liters of nasal cannula. Patient's blood culture times two is pending. Patient's influenza rapid screen shows positive for Influenza A. Patient's sputum culture has been ordered. Result is pending. IMAGING: Patient had a portable chest x-ray in the emergency room that shows bibasilar scaring. Otherwise, no acute process. ASSESSMENT AND PLAN: 65-year-old male with past medical history of severe emphysema, chronic obstructive pulmonary disease, obstructive sleep apnea on continuous positive airway pressure (CPAP) at night, coronary artery disease status post stents, severe aortic valve disease status post bioprosthetic replacement, borderline diabetes, common variable immunoglobulin deficiency, recurrent influenza infection also recurrent pneumonia, dyslipidemia, diverticulitis, presented with: 1. Sepsis likely secondary to Influenza A virus with possible superimposed infection. However, due to patient's borderline diabetes also common variable immunodeficiency we will start patient on dual pseudomonas antibacterial therapy with aztreonam and also levofloxacin. Sputum culture has been ordered. We will also followup with blood culture and also methicillin-resistant Staphylococcus aureus (MRSA) screening and continue patient on 2 liters of nasal cannula. Patient's rapid influenza screen also shows influenza A. 2. Acute chronic obstructive pulmonary disease exacerbation with worsening hypoxia. We will start patient on Solu-Medrol 60 mg IV every 6 hours for now and we will taper down tomorrow. Continue budesonide formoterol and also Pressair inhaler and continue DuoNeb's and keep patient's oxygen saturation between 88% and 92%. 3. Common variable immunoglobulin deficiency. Patient receives injection every week currently and follows with Dr. Davis and Dr. Otoole for management. If patient requires prolonged hospital stay, we will allow patient to bring home injection kit and give him injection in the hospital. 4. Steroid induced hyperglycemia and borderline diabetes. Patient's glucose at this time was 147. Currently does not need insulin. We will keep patient on carbohydrate consistent diet and continue to monitor patient. 5. Coronary artery disease status post catheterization and stent. We will continue home medications and continue Plavix, beta jenny, and continue to monitor patient. 6. Severe aortic valve disease status post bioprosthetic valve replacement. Continue Plavix. 7. Allergies. Continue allergic medication. 8. Deep vein thrombosis prophylaxis. Heparin 5000 units subcutaneously every 8 hours. DISPOSITION: Patient has a sepsis likely secondary to influenza A virus upper respiratory infection. However, due to patient's common variable immunodeficiency, we will cover patient will dual pseudomonas coverage, and we will continue to monitor patient in the progressive care unit (PCU) due to patient's complicated history and required multiple consults in the past. Patient has been discussed with attending doctor, Dr. Blily Angulo. My preceptor for this patient encounter was Dr. Billy Angulo. The preceptor was physically present in the building during the encounter and was fully available as needed. All aspects of the patient interview, examination, medical decision making process, and medical care plan development were reviewed and approved by the preceptor. The preceptor is aware and concurs with the plan as stated in the body of this note and will attest to such by his/her co-signature. Attending Note: I have independently examined this patient and all aspects of the exam and treatment decisions have been discussed with the resident. A member of the hospitalist staff will continue to follow this patient through discharge. EDILBERTO
[2016-06-11] MEDS ORDERED: GASTROGRAFIN SOLUTION 30ML PO ONE (14:45)
[2016-06-11] MEDS ORDERED: GASTROGRAFIN SOLUTION 30ML (Q9963) PO ONE (15:15)
[2016-06-11] MEDS ORDERED: ISOVUE-370 76% 100ML VIAL (Q9967) As Ordered ONE (15:52)
[2016-06-11 16:00] VITALS: BP 154/80
[2016-06-11] MEDS: SIMETHICONE 80 MG CHEW TAB PO SCH ×2 (17:10→21:14)
--- NOTE | 2016-06-11 17:26 | REP ---
PA and lateral chest radiograph, 06/11/2016: Indication: Influenza. Comparison made with CT abdomen and pelvis 06/11/2016, CT chest 01/09/2016 performed at [facility], chest radiograph 02/25/2016. Cardiomediastinal silhouette is stable. There is mild ectasia of the ascending thoracic aorta. The patient has an aortic valvular prosthesis. There is mild bilateral hyperinflation, and fibrotic scarring is seen in the lung bases, right greater than left. There is generalized osteopenia. Small irregular density within the right lower lobe is most compatible with small calcified granuloma and/or scarring. Impression: COPD and bibasilar fibroatelectatic scarring, right greater than left. Probable small calcified granuloma and/or parenchymal scarring in the right lower lobe. Recommend correlation with CT chest also performed today Aortic valvular prosthesis. There is mild persistent ectasia within the ascending thoracic aorta. Signed by Elaina Osullivan MD 06/13/2016 03:37 P
[2016-06-11 20:00] VITALS: BP 137/83
--- NOTE | 2016-06-11 20:31 | REP ---
CT abdomen/ pelvis with IV and oral contrast 06/11/2016 Indication: Abdominal distension Comparison: CT of the abdomen and pelvis 07/30/2008, and 02/05/2013 Technique: After drinking two cups of oral contrast, each containing 10 ml gastrographin in 290 ml water, 100 L Isovue 370 mg/ml was injected intravenously, and 3 mm contiguous spiral axial sections were performed through the abdomen and pelvis. Findings: Fibro atelectatic changes and scarring present within the lung bases, with improvement in the posterior basilar segments bilaterally when compared with 02/05/2013. There are extensive coronary artery calcifications. There is aneurysmal dilatation of the ascending thoracic aorta, distal to the aortic root, measuring 4.2 cm AP by 4.5 cm transverse dimension. Descending thoracic aorta is without aneurysm in its visualized portions. There is mild diffuse fatty infiltration of liver. The spleen, pancreas are normal. Gallbladder is without stones, wall thickening, or biliary dilatation. Adrenal glands are normal. Kidneys are without hydronephrosis or obstructing ureteral calculi bilaterally. Exophytic 2.5 cm cyst is identified within the anterior left kidney. There is moderate gastric distension, moderately filled with contrast and air . Small bowel is without obstruction. The terminal ileum is normal. Appendix is without inflammation. Moderate atherosclerotic changes are noted in the ectatic abdominal aorta . Extensive calcification is noted within the superior mesenteric artery distal to its origin. Small amount of calcification and mild narrowing is seen at the origin of the celiac artery. There are no pathologically enlarged retroperitoneal nodes Bladder and prostate are normal. Moderate diffuse stool is identified within the left colon. Focal narrowing within the mid ascending colon on image 55 series 205 is most compatible with spasm/under distension. There are few scattered colonic diverticula. Bladder and prostate are normal. There is no free air or ascites. Small sclerotic density, stable, seen within the intertrochanteric portion of the left hip and unchanged from prior study 07/30/2008 therefore considered benign Impression: Significant atherosclerotic changes within the superior mesenteric artery and to a lesser extent the origin of the celiac artery. Few foci of pneumatosis are seen within the proximal sigmoid colon, a nonspecific finding but can be seen with mesenteric ischemia. At this time there is also no colonic mural thickening. Clinical follow-up is recommended. Focal area of narrowing within the mid ascending colon is most compatible with spasm/under distension. Clinical follow-up however is recommended Signed by Elaina Osullivan MD 06/11/2016 08:23 P
--- NOTE | 2016-06-11 20:32 | CR ---
DATE OF CONSULTATION: 06/11/2016 INFECTIOUS DISEASE CONSULTATION Asked to consult by Dr. Sebastián Ortiz for evaluation of chronic obstructive pulmonary disease (COPD) exacerbation and influenza. HISTORY OF PRESENT ILLNESS: Mr. Velasquez is a 64-year-old gentleman with a history of severe advanced COPD, common variable immune deficiency for which he received subcutaneous Hizentra weekly and frequent pneumonia. The patient was recently hospitalized with COPD exacerbation. Sputum culture had Streptococcus pneumoniae and Serratia marcescens. I saw him the week before [place] in followup in my office, and the patient was still complaining of significant chest pressure, cough and shortness of breath and therefore, he was treated with IV Rocephin for about 5 days at the outpatient unit. He had improved. He finished IV Rocephin on 05/30/2016 and then took avelox for another week. The patient worsened about 3 days prior to admission, somewhere around , where he required more oxygen, he had significant chest pressure, congestion and body aches. He had a low grade fever. He had a mild headache. The patient had an influenza test done which was positive for influenza A. The patient has received his influenza vaccine. He denies any nausea, vomiting or diarrhea. ALLERGIES: ASPIRIN, PENICILLIN and QUININE, NARESH. PAST MEDICAL HISTORY: COPD, severe, on chronic 2 liters of oxygen. Common variable immunodeficiency. Coronary artery disease, status post stent placement, aortic valve replacement. Obstructive sleep apnea. History of pneumothorax. Diverticulitis. Dyslipidemia. Cataracts. History of thrush from chronic antibiotics. Bronchiectasis. PAST SURGICAL HISTORY: Laminectomy. Aortic valve replacement with bioprosthetic valve. SOCIAL HISTORY: He lives with his at home. He denies any smoking, drinking. He has a dog. He has not smoked for 6 years. REVIEW OF SYSTEMS: He complains of bloating but no nausea, vomiting or diarrhea. He complains of muscle aches. He has chest pressure and increasing shortness of breath, cough is mostly nonproductive. No urinary symptoms, dysuria, hematuria. LABORATORY DATA: White count yesterday was 14, today it was 10, hemoglobin 13.5 , hematocrit 40.2, platelets 193, 91% neutrophils, 4% lymphocytes, 2% monocytes. Sodium 136, potassium 4.4, chloride 99, bicarbonate 25, BUN 17, creatinine 0.95, glucose 184, lactic acid was 4.1, down today to 2.9, calcium was 9, magnesium 2.3. Blood cultures, two sets, were no growth after 24 hours. Influenza A was positive. Influenza B negative. Chest x-ray portable showed bibasilar scarring. He is scheduled for a chest x-ray, PA and lateral; this was done portable. On physical exam, he is a sick looking gentleman in moderate respiratory discomfort. Temperature is 99.1 this morning, pulse 102, respirations 24, blood pressure 154/82, oxygen saturation 94% on 2 liters nasal cannula. Heart: Normal S1, S2, tachycardiac. Lungs: Diminished air entry, very poor aeration and wheezing throughout. Abdomen: Distended, bloated. No hepatosplenomegaly. Bowel sounds present. Back: Mild lumbosacral tenderness. Extremities: No clubbing, cyanosis or edema. MEDICATIONS: - pitavastatin one tablet daily - vitamin C 1000 mg by mouth daily - vitamin D 2000 units daily - folic acid 1 mg daily - probiotics one tablet daily - Toprol XL 50 mg daily - omeprazole 40 mg daily - vitamin B and C complex one tablet daily - Zyrtec 10 mg daily - albuterol, Atrovent nebs every 8 hours as needed - Tamiflu 75 mg by mouth twice a day - Solu-Medrol 60 mg IV every 6 hours as needed - Celexa 20 mg by mouth nightly - Plavix 75 mg by mouth nightly - ferrous sulfate 325 by mouth twice a day - Mucinex 1200 mg by mouth twice a day - Senokot one tablet by mouth twice a day - Nitrostat as needed - doxycycline 100 mg by mouth twice a day - levofloxacin 750 mg IV every 24 hours - aztreonam 2 grams IV every 8 hours IMPRESSION: This is a 65-year-old gentleman with severe chronic obstructive pulmonary disease, oxygen dependent, common variable immunodeficiency who was admitted after prolonged courses of antibiotics including IV Rocephin recently for 5 days at the infusion unit, Avelox, a 10-day course of Levaquin, who was admitted again with COPD exacerbation, but this time it is caused by influenza A. I do not think this is related to a bacterial infection; he just finished many courses of broad-spectrum antibiotic. PLAN: 1. Discontinue doxycycline, aztreonam, levofloxacin. The patient just finished a prolonged course of quinolones. 2. Continue meropenem until results of sputum culture are available. The patient has not been able to bring up anything. Will obtain a chest x-ray, PA and lateral. Discussed with pulmonary whether he could have Heliox treatment again as this has helped during his previous hospitalization. Consult pulmonary. EDILBERTO
--- NOTE | 2016-06-11 20:47 | IPN ---
DATE: 06/11/2016 Time patient was seen was this morning at 10:30. The patient has been seen and examined at bedside. No acute events overnight. The patient was breathing better today compared to the day prior. However, he still complains of trouble breathing. Denies any fever or chills. Still admits to chest pressure. Denies any abdominal pain, nausea, vomiting, diarrhea, constipation, however, the patient does admit to feeling bloated. The patient denies any other current new complaints. PHYSICAL EXAMINATION: VITAL SIGNS: Temperature 98.1, pulse 98, respirations 24, blood pressure 154/90 , oxygen saturation 97% on 2 liters. GENERAL: The patient is a pleasant, elderly male who was alert, awake, oriented times three. Does not appear to be in distress. Lying comfortably in bed with head elevated at 45 degree angle. HEENT: The patient's face does look slightly swollen. Otherwise, normocephalic , atraumatic. Extraocular motors intact. Mucosa moist. Neck supple. No neck lymphadenopathy. CARDIOVASCULAR: Regular rate and rhythm. S1, S2. No murmurs, rubs or gallops. LUNGS: Diffuse wheezing bilaterally. Also increased AP diameter. ABDOMEN: Positive bowel sounds. Soft, nontender, nondistended. No peritoneal signs. No ecchymoses. EXTREMITIES: No edema, clubbing or cyanosis. SKIN: Warm and dry. NEUROLOGIC: Cranial nerves II through XII intact. No focal neurological deficit. LABORATORY DATA: WBC 10, hemoglobin 13.5, hematocrit 40.2, platelet count of 193 and MCV of 95.5. Sodium 136, potassium 4.4, chloride 99, bicarbonate 25, BUN 17, creatinine 0.95, GFR greater than 60, fasting glucose 184, lactic acid is 2.9 this morning. Calcium level was 9. Blood culture times two shows no growth after 24 hours. Influenza A was positive on admission. The patient had a CT of the chest, abdomen and pelvis, result is pending. CURRENT MEDICATIONS: - fluconazole 200 mg one tablet by mouth every Wednesday - pitavastatin one tablet by mouth daily - Tudorza Pressair 400 mcg one inhalation twice a day - meropenem 500 mg IV every 8 hours - vitamin C 1000 mg one by mouth daily - vitamin D 2000 units by mouth daily - folic acid 1 mg one tablet by mouth daily - Bacid one tablet by mouth daily - metoprolol 50 mg one tablet by mouth daily - omeprazole 40 mg one tablet by mouth daily - vitamin D complex one tablet by mouth daily - cetirizine 10 mg one tablet by mouth daily - insulin sliding scale - dextrose glucose and Glucagon - DuoNeb treatment every 8 hours - heparin 5000 units subcutaneously every 8 hours - Tamiflu 75 mg one tablet by mouth twice a day - Solu-Medrol 80 mg IV every 6 hours - Celexa 20 mg one tablet by mouth at night - Plavix 75 mg one tablet by mouth at night - ferrous sulfate 325 mg one tablet by mouth twice a day - Mucinex 1200 mg one tablet by mouth twice a day - Colace with Senna one tablet by mouth twice a day - Imodium 4 mg one tablet by mouth twice a day - Pepcid 40 mg one tablet by mouth at night - Pulmicort 0.5 mg one inhalation twice a day - formoterol 20 mcg one inhalation twice a day - Tylenol 650 mg one tablet by mouth every 4 hours as needed - Tylenol 650 mg one suppository - Zofran 4 mg every 6 hours IV as needed - DuoNeb treatment every 2 hours as needed - nitroglycerin 0.4 mg sublingually every 5 minutes as needed ASSESSMENT AND PLAN: 65-year-old male with a past medical history of severe emphysema, chronic obstructive pulmonary disease (COPD), obstructive sleep apnea on continuous positive airway pressure (CPAP) at night, coronary artery disease status post stent, severe aortic valve disease, status post bioprosthetic replacement, borderline diabetes, common variable immunoglobulin deficiency, recurrent influenza infection, also recurrent pneumonia, dyslipidemia, diverticulitis, who presented with: 1. Sepsis, likely secondary to influenza A virus with possible superimposed infection. Dr. Davis from infectious disease has been consulted. We will follow her recommendations. The patient was on azithromycin and levofloxacin yesterday , which have been discontinued and placed on meropenem. Sputum culture has been ordered. Result is pending. Blood culture has been ordered as well and the result is pending. Currently, shows no growth. We will continue the patient on 2 liters of nasal cannula. The patient's rapid influenza screening shows influenza A. 2. COPD exacerbation with worsening hypoxia. Continue to taper down the patient's Solu-Medrol from 60 mg intravenous every 6 hours to 40 mg intravenous every 8 hours. The patient's lungs do sound better today. Continue budesonide formoterol and Pressair and continue DuoNeb and nasal cannula oxygen. Keep oxygen between 88 and 92%. 3. Common variable immunoglobulin deficiency. Dr. Davis has been consulted. We will follow her recommendations. The patient does receive infusion on a weekly basis now. We will allow him to receive infusion this Wednesday. 4. Steroid induced hyperglycemia, borderline diabetes. Glucose is 147. We will place the patient on carbohydrate consistent diet and also fingersticks and insulin sliding scale. Continue to monitor the patient. 5. Coronary artery disease status post catheterization and stents. Continue the patient on Plavix, beta jenny. Continue to monitor. 6. Severe aortic valve disease, status post bioprosthetic valve replacement. Continue Plavix. 7. Allergies. Continue allergy medication. 8. Facial swelling. Possibly secondary to steroid usage. However, we will check TSH as well tomorrow. 9. The patient also had some bloating. CT of the abdomen and pelvis, and also CT of the chest has been ordered. Results are pending. We will followup. 10. Deep vein thrombosis (DVT) prophylaxis. Continue heparin 5000 units subcutaneously every 8 hours. DISPOSITION: The patient's sepsis has improved secondary to influenza A virus and upper respiratory infection. Dr. Davis from infectious disease has been consulted. The patient is on meropenem currently. We will continue to monitor the patient and we will consider possibly consulting pulmonary tomorrow. The patient has been discussed with attending doctor, Dr. Patel. My preceptor for this patient encounter was Dr. Alisson Patel. The preceptor was physically present in the building during the encounter and was fully available. As needed, all aspects of the patient interview, examination, medical decision making process, and medical care plan development were reviewed and approved by the preceptor. The preceptor is aware and concurs with the plan as stated in the body of this note and will attest to such by his/her cosignature. I have both independently examined this patient as well as reviewed the note. I have discussed in detail with the resident the findings and plan of treatment as documented in the residents note. I will continue to follow the patient and offer further guidance to the patients care as necessary during this hospital stay. Alisson CASANOVA
[2016-06-11] MEDS: ACLIDINIUM INH SCH (21:00)
[2016-06-11] MEDS: CitaloPRAM (CeleXA) 20 MG TAB PO SCH (21:11)
[2016-06-11] MEDS: CLOPIDOGREL 75 MG TAB PO SCH (21:12)
[2016-06-11] MEDS: FAMOTIDINE 20 MG TAB PO SCH (21:13)
[2016-06-11] MEDS: methylPREDNISolone INJ 40 MG/1 ML VIAL (J2920) IV SCH (21:14)
[2016-06-12] VITALS (7 sets, daily range): BP systolic 130–156; BP diastolic 78–92
--- NOTE | 2016-06-12 00:33 | REP ---
Clinical: Dyspnea. Rule out pneumonia. Technique: Axial contrast enhanced images from the thoracic inlet to the upper abdomen using 100 ml Isovue 370 intravenous contrast material with coronal and sagittal re-formations. Comparison: 01/09/2016, 05/27/2015 . Findings: Moderate chronic COPD and emphysematous changes are again appreciated along with bronchiectasis as well as biapical, right middle lobe and bibasilar scarring and fibroatelectatic changes similar compared to prior examinations. No acute consolidation, pleural effusion/reaction, or pneumothorax. No obvious nodule or mass lesion. Normal stable mediastinal and hilar lymph nodes noted. Heart demonstrates atherosclerotic disease and prior aortic valve repair without cardiomegaly or pericardial effusion. Atherosclerotic changes to the thoracic aorta noted without aneurysm or dissection. Surrounding musculoskeletal structures are grossly intact without focal osseous abnormality. Limited upper abdomen demonstrates normal bilateral adrenal glands. Impression: 1. Moderate COPD with bronchiectasis and scattered scarring and fibroatelectatic changes. 2. No acute mediastinal or pleuroparenchymal process appreciated. Signed by Gilberto Hudson MD 06/12/2016 12:24 A
[2016-06-12] MEDS: IPRATROPIUM 0.5MG/ALBUTEROL 2.5MG INH SOL UD 3ML (DUONEB)(J7620) NEB SCH ×4 (01:31→20:00)
[2016-06-12] MEDS: MEROPENEM INJ 500 MG in D5W MINI-BAG PLUS 100 ML IV SCH (02:06)
[2016-06-12] MEDS: IPRATROPIUM 0.5MG/ALBUTEROL 2.5MG INH SOL UD 3ML (DUONEB)(J7620) NEB PRN ×2 (04:58→12:27)
[2016-06-12] MEDS: methylPREDNISolone INJ 40 MG/1 ML VIAL (J2920) IV SCH ×3 (05:17→21:09)
[2016-06-12] MEDS: HEPARIN SOD (PORCINE) 5000 UNITS/ML VIAL SC SCH ×3 (05:17→21:10)
[2016-06-12 05:33] LABS: BASO % 0.1 % (0.0-1.0); EOS % 0.4 % (0.0-3.0); LARGE UNSTAINED CELL # 0.2 K/mm3 (0.0-0.4); LARGE UNSTAINED CELL % 1.6 % (0.0-4.0); LYMPH # 0.8 K/mm3 (1.5-4.5); LYMPH % 5.6 % (24.0-44.0); MEAN CORPUSCULAR HEMOGLOBIN 32.6 pg (27.0-33.0); MEAN CORPUSCULAR VOLUME 95.7 fl (80.0-96.0); MONO # 0.6 K/mm3 (0.0-0.8); MONO % 4.3 % (0.0-5.0); NEUTROPHILS # 12.7 K/mm3 (1.8-7.7); PLATELET COUNT, AUTOMATED 193 k/mm3 (150-450); RED CELL DISTRIBUTION WIDTH 12.6 % (11.5-14.5); WHITE BLOOD COUNT 14.5 K/mm3 (4.0-10.0)
[2016-06-12 06:04] LABS: ANION GAP 11 MEQ/L (8-16); BLOOD UREA NITROGEN 20 MG/DL (7-18); CALCIUM LEVEL 9.1 MG/DL (8.8-10.2); CARBON DIOXIDE LEVEL 25 MEQ/L (21-32); CHLORIDE LEVEL 102 MEQ/L (98-107); CREATININE FOR GFR 0.96 MG/DL (0.70-1.30); FREE T4 0.85 NG/DL (0.76-1.46); GLOMERULAR FILTRATION RATE > 60.0 (>49); GLUCOSE, FASTING 185 MG/DL (80-110); POTASSIUM SERUM 4.2 MEQ/L (3.5-5.1); SODIUM LEVEL 138 MEQ/L (136-145)
[2016-06-12] MEDS: SIMETHICONE 80 MG CHEW TAB PO SCH ×3 (08:32→21:11)
[2016-06-12] MEDS: CETIRIZINE (ZyrTEC) 10 MG TAB PO SCH (08:32)
[2016-06-12] MEDS: HumaLOG INSULIN (NovoLOG) PER UNIT SC SCH ×4 (08:32→21:12)
[2016-06-12] MEDS: VITAMIN D 1,000 INTERNATIONAL UNITS TABLET PO SCH (08:32)
[2016-06-12] MEDS: LACTOBACILLUS ACIDOPHILUS CAP (BACID) PO SCH (08:32)
[2016-06-12] MEDS: FERROUS SULFATE 325MG TAB PO SCH ×2 (08:32→21:11)
[2016-06-12] MEDS: OMEPRAZOLE 20 MG CAP PO SCH (08:32)
[2016-06-12] MEDS: FOLIC ACID 1 MG TAB PO SCH (08:33)
[2016-06-12] MEDS: VITAMIN B COMPLEX/VIT C CAP PO SCH (08:33)
[2016-06-12] MEDS: guaiFENesin ER 600 MG TAB PO SCH ×2 (08:33→21:11)
[2016-06-12] MEDS: ASCORBIC ACID 500 MG TAB PO SCH (08:33)
[2016-06-12] MEDS: METOPROLOL SUCC (TopROL XL) 50MG **XL** TAB PO SCH (08:33)
[2016-06-12] MEDS: LOPERAMIDE 2 MG CAP PO SCH ×2 (08:33→21:10)
[2016-06-12] MEDS: SENOKOT S TAB PO SCH ×2 (08:34→21:00)
[2016-06-12] MEDS: ACLIDINIUM INH SCH ×2 (08:39→21:24)
[2016-06-12] MEDS: FORMOTEROL FUMARATE 20 MCG/2 ML INHALATION SOLUTION (PERFOROMIST) INH SCH ×2 (08:39→21:24)
[2016-06-12] MEDS: BUDESONIDE 0.5 MG/2 ML INHALATION SUSPENSION INH SCH ×2 (08:39→21:24)
[2016-06-12] MEDS ORDERED: SODIUM CHLORIDE HYPERTONIC 3% 15ML NEB SOL NEB ONE (08:45)
[2016-06-12] MEDS ORDERED: PITAVASTATIN CALCIUM PO SCH (09:00)
[2016-06-12] MEDS: OSELTAMIVIR PHOSPHATE 75 MG CAP (TAMIFLU) PO SCH ×2 (10:10→21:11)
[2016-06-12] MEDS ORDERED: CEPACOL LOZENGE PO PRN (13:45)
[2016-06-12] MEDS ORDERED: diphenhydrAMINE 50 MG CAP PO SCH (20:00)
[2016-06-12] MEDS ORDERED: HIZENTRA SC SCH (20:00)
[2016-06-12] MEDS: CitaloPRAM (CeleXA) 20 MG TAB PO SCH (21:09)
[2016-06-12] MEDS: FAMOTIDINE 20 MG TAB PO SCH (21:10)
[2016-06-12] MEDS: CLOPIDOGREL 75 MG TAB PO SCH (21:11)
--- NOTE | 2016-06-12 21:41 | EDDOCDS ---
Nurse's Notes [facility] Name: Casey Velasquez Age: 65 yrs Sex: Male : 1950 Arrival Date: 06/10/2016 Time: 13:35 Bed 15 Private MD: Blaze Ruano FPA Diagnosis: Influenza due to identified novel influenza A virus with other manifestations;Chronic obstructive pulmonary disease with (acute) exacerbation Presentation: 06/10 13:45 Presenting complaint: Patient states: chest pressure worsening over 3 days. started in [facility] back now in chest. pain does not radiate. admitted 3 weeks ago for strep pneumoniae in sputum. finished avelox Wednesday and last week was on rocephin injections for 7 days. bringing up a lot of thick stuff.SOB with speaking and exertion. Adult Sepsis Screening: The patient does not have new or worsening altered mentation. Patient has a respiratory rate of greater than or equal to 22 (1 point). Systolic blood pressure is greater than 100. Patient has a qSOFA score of 0- Negative Sepsis Screen. Suicide/Homicide risk assessment- the patient denies having any suicidal and/or homicidal ideations and does not present with any other emotional, behavioral or mental health complaints. 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 Transition of care: patient was not received from another setting of care. 13:45 Acuity: ISABELL Level 2 [facility] 13:45 Method Of Arrival: Wheelchair [facility] 13:47 Aspirin was not taken prior to arrival. [facility] Triage Assessment: 13:55 General: Appears in no apparent distress, Behavior is appropriate for age, cooperative. srm Pain: Denies pain. Quality of pain is described as pressure. HIV screening NA for this visit Offered previously. Cardiovascular: Chest pain is described as vague, tight and pressure. radiates Does not radiate. episodes are continuous began 3-4 dfays. Historical: - Allergies: Isa; PENICILLINS; Quinine Sulfate; - Home Meds: 1. folic acid 1 mg Oral tab 1 tab once daily (Last dose: 06/10/2016 08:30) 2. Tudorza Pressair 400 mcg/actuation inhalation aepb 1 puff every 12 hours (Last dose: 06/10/2016 06:00) 3. albuterol sulfate 1.25 mg/3 mL Nebulizer nebu prn 4. Atrovent 0.02 % Nebulizer soln (Last dose: 06/10/2016 13:00) 5. Toprol XL 50 mg Oral Tb24 1 tab once daily (Last dose: 06/10/2016 08:30) 6. Perforomist 20 mcg/2 mL inhalation nebu 2 times per day (Last dose: 06/10/2016 06:00) 7. budesonide 0.5 mg/2 mL inhalation nbsp 2 times per day (Last dose: 06/10/2016 06:00) 8. Vitamin C 1,000 mg Oral tab daily (Last dose: 06/10/2016 08:30) 9. vitamin b daily (Last dose: 06/10/2016 08:30) 10. Vitamin D3 2,000 unit oral cap daily (Last dose: 06/10/2016 08:30) 11. virginie daily probiotic 1 tab daily (Last dose: 06/10/2016 08:30) 12. ferrous sulfate 325 mg (65 mg iron) Oral tab twice a day (Last dose: 06/10/2016 12:00) 13. magnesium 250mg daily (Last dose: 06/10/2016 12:00) 14. Plavix 75 mg Oral tab 1 tab once daily (Last dose: 06/09/2016 21:00) 15. nitroglycerin 0.4 mg SL subl 1 tab as needed 16. loperamide 2 mg Oral cap 2 caps daily (Last dose: 06/09/2016 21:00) 17. ranitidine HCl 300 mg Oral cap 1 cap nightly (Last dose: 06/09/2016 21:00) 18. Musinex 1200 mg twice a day (Last dose: 06/10/2016 08:30) 19. prednisone 20 mg Oral tab once daily (Last dose: 06/10/2016 08:30) 20. Livalo 2 mg oral tab 1 tab nightly (Last dose: 06/09/2016 21:00) 21. Skelaxin 800 mg Oral tab 3 times per day prn 22. Celexa 20 mg Oral tab 1 tab nightly (Last dose: 06/09/2016 21:00) 23. Zyrtec 10 mg Oral tab 1 tab once daily (Last dose: 06/10/2016 08:30) 24. saline neb twice a day 25. Oxygen 2 L NC daily 26. Hizentra subcutaneous subcutaneous once wkly (Last dose: 06/05/2016) - PMHx: COPD; Emphysema; Heart Disease; - PSHx: Cardiac stents; Laminectomy; Aortic Valve Replacement, Bovine; broncoscopy; - Social history: Smoking status: Patient states former smoker of tobacco. No barriers to communication noted, The patient speaks fluent Malay, Speaks appropriately for age. - Family history: Not pertinent. - : The pt / caregiver states he / she is on anticoagulants: Plavix. Home medication list is obtained from the patient. - Exposure Risk Screening:: None identified. Screenin:29 Screening information is obtained from the patient. Fall risk: No risks identified. hs1 Assistance ADL's: requires no assistance with activities of daily living. Abuse/DV Screen: The patient / caregiver reports he/she is: not in a situation that causes fear, pain or injury. Nutritional screening: No deficits noted. Advance Directives: There is no active DNR order. home support is adequate. Assessment: 14:20 General: Appears in no apparent distress, Behavior is appropriate for age. Pain: Denies hs1 pain. Neurological: No deficits noted. Cardiovascular: Rhythm is sinus rhythm No ectopy. Respiratory: Airway is patent Respiratory effort is labored, Respiratory pattern is regular, Breath sounds are diminished bilaterally. Breath sounds with wheezes. Derm: Skin is pink, warm & dry. normal. 15:38 Reassessment: Patient appears in no apparent distress at this time. Patient states hs1 symptoms have not improved. Pt still having SOB on exertion. Pt asking for drink at present. . 16:18 Reassessment: Patient appears in no apparent distress at this time. Adult Sepsis hs1 Screening: The patient does not have new or worsening altered mentation. Patient has a respiratory rate of greater than or equal to 22 (1 point). Systolic blood pressure is greater than 100. Patient has a qSOFA score of 0- Negative Sepsis Screen. General: Appears. General: Behavior is appropriate for age, cooperative. Pain: Denies pain. Cardiovascular: Rhythm is sinus rhythm. Respiratory: Airway is patent Respiratory effort is even, Respiratory pattern is regular, Breath sounds with wheezes bilaterally. Derm: Skin is normal, Skin temperature is hot. 17:35 Reassessment: Patient appears in no apparent distress at this time. Patient states hs1 symptoms have improved. Pt resting on stretcher aware of admission no needs at present. Pt wondering if Dr Angulo is reservations sales agent. Pt resting and is leaving at present due to weather conditions. . 18:06 General: Appears in no apparent distress, Behavior is appropriate for age, cooperative. hs1 Pain: Denies pain. Neurological: Level of Consciousness is awake, alert. Respiratory: Airway is patent Respiratory effort is even, Respiratory pattern is regular, Breath sounds are diminished bilaterally. Breath sounds with wheezes bilaterally. Reports shortness of breath on exertion. GI: No deficits noted. Derm: Skin is pink, warm & dry. 18:44 General: Appears in no apparent distress, Behavior is appropriate for age, cooperative. hs1 Neurological: Level of Consciousness is awake, alert. Cardiovascular: Rhythm is sinus rhythm No ectopy. Respiratory: Airway is patent Respiratory effort is even, unlabored, Respiratory pattern is regular, symmetrical. Derm: Skin is pink, warm & dry. 19:08 General: Appears in no apparent distress, Behavior is appropriate for age, cooperative, af2 assumed care of pt at this time, rr even and unlabored. pt eating meal.. Neurological: Level of Consciousness is awake, alert. Cardiovascular: Rhythm is sinus rhythm No ectopy. Respiratory: Airway is patent Respiratory effort is even, unlabored. Derm: Skin is normal. 19:47 General: Appears in no apparent distress, Behavior is appropriate for age, cooperative, af2 This narrative writer called hospitalist to notify of critical value, lactic acid of 2.5. No new orders received. . 20:16 General: Appears in no apparent distress, Behavior is appropriate for age, cooperative, af2 pt assisted to use urinal at bedside at this time. updated regarding treatment plan at this time. . Vital Signs: 13:37 BP 132 / 87; Pulse 103; Resp 26 S; Temp 100.2(O); Pulse Ox 95% on 2 lpm NC; Weight dd6 80.74 kg (R); Height 5 ft. 8 in. (172.72 cm) (R); 14:29 BP 118 / 66 (auto/); hs1 14:30 Pulse 96 MON; Pulse Ox 94% ; hs1 14:59 BP 124 / 80 (auto/); hs1 15:00 Pulse 108 MON; Pulse Ox 95% ; hs1 15:14 BP 123 / 89 (auto/); hs1 15:15 Pulse 110 MON; Pulse Ox 94% ; hs1 15:29 BP 125 / 83 (auto/); hs1 15:30 Pulse 112 MON; Pulse Ox 93% ; hs1 15:44 BP 128 / 81 (auto/); hs1 15:45 Pulse 114 MON; Pulse Ox 93% ; hs1 15:59 BP 133 / 82 (auto/); hs1 16:00 Pulse 112 MON; Pulse Ox 92% ; hs1 16:14 BP 122 / 81 (auto/); hs1 16:15 Pulse 110 MON; Pulse Ox 92% ; hs1 16:29 BP 123 / 82 (auto/); hs1 16:29 Pulse 108 MON; Resp 20; Temp 103.2(O); Pulse Ox 93% ; hs1 16:44 BP 118 / 80 (auto/); hs1 16:45 Pulse 106 MON; Pulse Ox 93% ; hs1 16:59 BP 120 / 82 (auto/); hs1 17:00 Pulse 104 MON; Pulse Ox 93% ; hs1 17:14 BP 115 / 74 (auto/); hs1 17:15 Pulse 100 MON; Pulse Ox 92% ; hs1 17:29 BP 112 / 71 (auto/); hs1 17:30 Pulse 98 MON; Pulse Ox 93% ; hs1 17:44 BP 111 / 70 (auto/); hs1 17:45 Pulse 94 MON; Pulse Ox 93% ; hs1 17:59 BP 114 / 73 (auto/); hs1 18:00 Pulse 92 MON; Pulse Ox 94% ; hs1 18:14 BP 116 / 74 (auto/); hs1 18:15 Pulse 92 MON; Pulse Ox 94% ; hs1 18:29 BP 133 / 88 (auto/); hs1 18:29 Pulse 92 MON; Pulse Ox 94% ; hs1 18:44 BP 131 / 89 (auto/); hs1 18:44 BP 131 / 89; Pulse 92 MON; Resp 18; Temp 98.6(O); Pulse Ox 94% ; Pain 0/10; hs1 20:33 BP 120 / 77; Pulse 92; Resp 18 S; Temp 98.5(O); Pulse Ox 95% on 2 lpm NC; af2 13:37 Body Mass Index 27.06 (80.74 kg, 172.72 cm) dd6 Vitals: 13:37 Log In Time: June 10, 2016 at 13:35. RN notified that patient meets Red Flag dd6 criteria. ED Course: 13:37 Patient visited by Bradly Ramírez PCA. dd6 13:37 Blaze Ruano is Private Physician. dd6 13:37 Patient moved to Waiting dd6 13:45 Patient moved to 15 srm 13:47 Triage Initiated srm 13:55 Mickie Bingham MD is Attending Physician. sd1 13:59 Patient visited by Mickie Bingham MD. sd1 14:18 EKG done. (by ED staff). Reviewed by Mickie Bingham MD. jml1 14:19 Patient visited by Errol Gaitan. jml1 14:25 Inserted saline lock: 20 gauge in right forearm and blood collected. The patient hs1 tolerated the procedure well. 14:29 -Blood Culture Sent. hs1 14:29 B-Type Natiuretic Peptide Sent. hs1 14:29 Basic Metabolic Profile Sent. hs1 14:29 CBC with Diff Sent. hs1 14:29 Cardiac Injury Profile Sent. hs1 14:29 Troponin Sent. hs1 14:32 -Arterial Blood Gas Sent. sd7 15:17 Patient visited by Giana Phillip RN. hs1 15:23 [facility] Payment Agreement was scanned into [employer] and attached to record. gjb 15:44 Chest, 1 View Returned. EDMS 15:51 BLOOD CULTURES Sent. jml1 16:18 Patient visited by Giana Phillip RN. hs1 16:34 Chest, 1 View Returned. EDMS 16:36 The patient / caregiver is instructed regarding the plan of care and ED course. Cardiac hs1 monitor on. Pulse ox on. NIBP on. 17:02 Patient visited by Yvan Celaya PCA. jlf 17:29 Billy Angulo DO is Hospitalizing Provider. sd1 18:50 Patient visited by Giana Phillip RN. hs1 19:04 Loreto Mary,SHOLA is Primary Nurse. af2 19:09 Patient visited by Loreto Mary RN. af2 19:48 Patient visited by Loreto Mary,RN. af2 20:06 EKG-ADULT Returned. EDMS 20:15 No procedures done that require assistance. af2 20:16 Patient visited by Loreto Mary RN. af2 20:17 Patient visited by Lroeto Mary RN. af2 20:26 URINALYSIS Sent. af2 20:27 Patient visited by Loreto Mary RN. af2 06/12 11:30 T-Sheet-- Draft Copy was scanned into [employer] and attached to record. gb 11:31 ECG/EKG was scanned into [employer] and attached to record. gb 11:31 T-Sheet-- Draft Copy was scanned into [employer] and attached to record. gb Administered Medications: 06/10 14:28 Drug: Albuterol-Ipratropium 1 neb [ipratropium-albuterol 0.5 mg-3 mg(2.5 mg base)/3 mL sd7 nebulization soln (1 neb)] Route: Nebulizer; 14:41 Follow up: Response: Nebulizer completed sd7 14:47 Drug: Albuterol-Ipratropium 1 neb [ipratropium-albuterol 0.5 mg-3 mg(2.5 mg base)/3 mL sd7 nebulization soln (1 neb)] Route: Nebulizer; 14:55 Follow up: Response: Nebulizer completed sd7 15:05 Drug: Albuterol-Ipratropium 1 neb [ipratropium-albuterol 0.5 mg-3 mg(2.5 mg base)/3 mL sd7 nebulization soln (1 neb)] Route: Nebulizer; 15:51 Follow up: Response: Nebulizer completed sd7 15:17 Drug: Solu-MEDROL 125 mg [Solu-Medrol 500 mg intravenous solution (125 mg)] Route: IVP; hs1 Site: right forearm; 16:34 Drug: Acetaminophen 650 mg [acetaminophen 325 mg tablet (2 tabs)] Route: PO; hs1 16:34 Drug: Oseltamivir 75 mg [oseltamivir 75 mg capsule (1 caps)] Route: PO; hs1 Output: 20:27 Urine: 600.00ml (Voided); Total: 600.00ml. af2 RT: 14:25 ABG's drawn from left radial artery allens test done and positive pressure held for 5 sd7 minutes no bleeding noted pressure bandage applied specimen sent pt. tolerated well. 14:28 Initial Med Neb Given as ordered Patient was instructed and evaluated on procedure sd7 Patient tolerated procedure well without adverse effect. Respiratory: Breath sounds are diminished bilaterally. Breath sounds with wheezes bilaterally. at expiration. 14:50 Subsequent Med Neb Given as ordered Patient tolerated procedure well without adverse sd7 effect. Respiratory: Breath sounds are diminished bilaterally. Breath sounds with wheezes bilaterally. at expiration. 15:05 Subsequent Med Neb Given as ordered Patient tolerated procedure well without adverse sd7 effect. Respiratory: Breath sounds are diminished bilaterally. Breath sounds with wheezes bilaterally. at expiration. Order Results: Lab Order: -Arterial Blood Gas; SPEC'06/10/16 14:24 Test: ABG pH (ARTERIAL); Value: 7.427; Range: 7.350-7.450; Units: UNITS; Status: F Test: ABG PARTIAL PRESSURE CO2; Value: 42.8; Range: 35.0-45.0; Units: mmHg; Status: F Test: ABG PARTIAL PRESSURE O2; Value: 66.0; Range: 75.0-100.0; Abnormal: Below low normal; Units: mmHg; Status: F Test: ABG TOTAL CO2; Value: 28.9; Range: 23.0-31.0; Units: MEQ/L; Status: F Test: ABG HCO3; Value: 27.6; Range: 22.0-26.0; Abnormal: Above high normal; Units: MEQ/L; Status: F Test: ABG BASE EXCESS; Value: 2.8; Range: -2.0-2.0; Abnormal: Above high normal; Status: F Test: ABG STANDARD HCO3; Value: 26.9; Range: 22.0-26.0; Abnormal: Above high normal; Units: MEQ/L; Status: F Test: ABG O2 SATURATION; Value: 93.6; Range: 95.0-99.0; Abnormal: Below low normal; Units: %; Status: F Test: ABG DEVICE; Value: NASAL BHAVESH; Status: F Lab Order: B-Type Natiuretic Peptide; SPEC'06/10/16 14:31 Test: BRAIN NATRIURETIC PEPTIDE; Value: 27.4; Range: <100; Units: PG/ML; Status: F Lab Order: Basic Metabolic Profile; SPEC'06/10/16 14:31 Test: GLUCOSE, FASTING; Value: 147; Range: 80-110; Abnormal: Above high normal; Units: MG/DL; Status: F Test: BLOOD UREA NITROGEN; Value: 17; Range: 7-18; Units: MG/DL; Status: F Test: CREATININE FOR GFR; Value: 1.02; Range: 0.70-1.30; Units: MG/DL; Status: F Test: GLOMERULAR FILTRATION RATE; Value: > 60.0; Range: >49; Status: F Test: SODIUM LEVEL; Value: 137; Range: 136-145; Units: MEQ/L; Status: F Test: POTASSIUM SERUM; Value: 5.3; Range: 3.5-5.1; Abnormal: Above high normal; Units: MEQ/L; Status: F Test: CHLORIDE LEVEL; Value: 99; Range: 98-107; Units: MEQ/L; Status: F Test: CARBON DIOXIDE LEVEL; Value: 30; Range: 21-32; Units: MEQ/L; Status: F Test: ANION GAP; Value: 8; Range: 8-16; Units: MEQ/L; Status: F Test: CALCIUM LEVEL; Value: 9.1; Range: 8.8-10.2; Units: MG/DL; Status: F Test Note: ; Units are mL/min/1.73 m2 Chronic Kidney Disease Staging per NKF: Stage I & II GFR >=60 Normal to Mildly Decreased Stage III GFR 30-59 Moderately Decreased Stage IV GFR 15-29 Severely Decreased Stage V GFR <15 Very Little GFR Left ESRD GFR <15 on CONTRACT LEAD Lab Order: CBC with Diff; SPEC'M 06/10/16 14:31 Test: WHITE BLOOD COUNT; Value: 14.0; Range: 4.0-10.0; Abnormal: Above high normal; Units: K/mm3; Status: F Test: RED BLOOD COUNT; Value: 4.45; Range: 4.30-6.10; Units: M/mm3; Status: F Test: HEMOGLOBIN; Value: 14.6; Range: 14.0-18.0; Units: g/dl; Status: F Test: HEMATOCRIT; Value: 42.6; Range: 42.0-52.0; Units: %; Status: F Test: MEAN CORPUSCULAR VOLUME; Value: 95.8; Range: 80.0-96.0; Units: fl; Status: F Test: MEAN CORPUSCULAR HEMOGLOBIN; Value: 32.9; Range: 27.0-33.0; Units: pg; Status: F Test: MEAN CORPUSCULAR HGB CONC; Value: 34.3; Range: 32.0-36.5; Units: g/dl; Status: F Test: RED CELL DISTRIBUTION WIDTH; Value: 12.5; Range: 11.5-14.5; Units: %; Status: F Test: PLATELET COUNT, AUTOMATED; Value: 209; Range: 150-450; Units: k/mm3; Status: F Test: NEUTROPHILS %; Value: 90.6; Range: 36.0-66.0; Abnormal: Above high normal; Units: %; Status: F Test: LYMPH %; Value: 3.8; Range: 24.0-44.0; Abnormal: Below low normal; Units: %; Status: F Test: MONO %; Value: 3.1; Range: 0.0-5.0; Units: %; Status: F Test: EOS %; Value: 0.3; Range: 0.0-3.0; Units: %; Status: F Test: BASO %; Value: 0.3; Range: 0.0-1.0; Units: %; Status: F Test: LARGE UNSTAINED CELL %; Value: 1.9; Range: 0.0-4.0; Units: %; Status: F Test: NEUTROPHILS #; Value: 12.7; Range: 1.8-7.7; Abnormal: Above high normal; Units: K/mm3; Status: F Test: LYMPH #; Value: 0.5; Range: 1.5-4.5; Abnormal: Below low normal; Units: K/mm3; Status: F Test: MONO #; Value: 0.4; Range: 0.0-0.8; Units: K/mm3; Status: F Test: EOS #; Value: 0.0; Range: 0.0-0.50; Units: K/mm3; Status: F Test: BASO #; Value: 0.0; Range: 0.0-0.2; Units: K/mm3; Status: F Test: LARGE UNSTAINED CELL #; Value: 0.3; Range: 0.0-0.4; Units: K/mm3; Status: F Lab Order: Cardiac Injury Profile; SPEC'M 06/10/16 14:31 Test: CPK CREATINE PHOSPHOKINASE; Value: 84; Range: 39-308; Units: U/L; Status: F Test: CK-MB VALUE MASS; Value: 1.6; Range: 0.0-3.6; Units: NG/ML; Status: F Test: MB/CK RELATIVE INDEX; Value: 1.90; Range: < OR =4; Status: F Test Note: ; DIAGNOSIS CRITERIA MMB ng/ml Relative Index (RI) NON-AMI < or = 5 N/A [place] ZONE > 5 < or = 4 AMI > 5 > 4 Lab Order: Troponin; SPEC'M 06/10/16 14:31 Test: TROPONIN I; Value: < 0.02; Range: < 0.10; Units: NG/ML; Status: F Test Note: ; Troponin I Reference Interval for [place] LOCI: 99th Percentile= 0.00-0.045 ng/ml Risk Stratification: <= 0.10 ng/ml Decreased Risk for Adverse Clinical Events. 0.10-1.50 ng/ml Increased Risk for Adverse Clinical Events. Evaluation of additional criterion and/or repeat testing in 2-6 hours is suggested to rule out myocardial damage. >= 1.50 ng/ml Indicative of Myocardial Injury. Lab Order: -Influenza A&B Rapid Antigen - Nose; SPEC'M 06/10/16 14:31 Test: INFLUENZA A RAPID SCR by ICA; Value: INFLUENZA A RESULTS POSITIVE; Abnormal: Abnormal; Status: F Test: INFLUENZA A RAPID SCR by ICA; Value: Comments:; Status: F Test: INFLUENZA B RAPID SCR by ICA; Value: INFLUENZA B RESULTS NEGATIVE; Status: F Test Note: ; The Influenza test is a direct rapid immunoassay for the qualitative detection of Influenza viral antigen. Cell culture (Viral Culture) testing should be considered to confirm NEGATIVE results and to assist in detecting other viruses that can provide similar clinical symptoms. Please contact the lab within 24 hours ([phone] if confirmatory testing is desired. Lab Order: MAGNESIUM LEVEL; SPEC'M 06/10/16 18:48 Test: MAGNESIUM LEVEL; Value: 2.3; Range: 1.8-2.4; Units: MG/DL; Status: F Lab Order: LACTIC ACID LEVEL, LACTATE; SPEC'M 06/10/16 18:48 Test: LACTIC ACID LEVEL, LACTATE; Value: 2.5; Range: 0.4-2.0; Abnormal: Above upper panic limits; Units: MMOL/L; Status: F Radiology Order: EKG-ADULT Test: EKG-ADULT REASON FOR EXAMINATION: Chest Pain; Stationary ECG Study; [facility] - ED; ; Test Date: 2016-06-10; Pat Name: CASEY VELASQUEZ Department:; Room: -; Gender: M Manager Agricultural: JT; : 1950 Requested By: Mickie Bingham; Order Number: [id number] Reading MD: Mickie Bingham; Measurements; Intervals [place]; Rate: 98 P: 38; PA: 137 QRS: 32; QRSD: 87 T: 81; QT: 326; QTc: 417; Interpretive Statements; SINUS RHYTHM; NONSPECIFIC ST T-WAVE ABNORMALITY; ; Electronically Signed On 06-10-2016 20:03:29 EST by Mickie Bingham; Radiology Order: Chest, 1 View Test: Chest, 1 View REASON FOR EXAMINATION: Chest Pain; CHEST, ONE VIEW:; ; HISTORY: Chest pain.; ; COMPARISON: 05/07/2016.; ; There is elevation of the right hemidiaphragm. Increased density is present in; the lower lobes consistent with scarring. The heart is normal in size. The; pulmonary vasculature is normal in appearance.; ; IMPRESSION:; ; Bibasilar scarring.; ; ; Signed by; Wei Parker MD 06/10/2016 03:49 P; Outcome: 17:29 Decision to Hospitalize by Provider. sd1 20:15 Discharge Assessment: Patient awake, alert and oriented x 3. No cognitive and/or af2 functional deficits noted. Patient verbalized understanding of disposition instructions. patient administered narcotics - no. The following High Risk Discharge criteria are identified: None. Admitted to PCU accompanied by nurse, accompanied by tech, via stretcher, with oxygen, on monitor, with chart. Condition: stable. No special radiology studies were completed. Property :Personal belongings accompany Pt. 20:41 Patient left the ED. sls1 Signatures: Dispatcher [employer] EDMA Zachery, Mickie, MD MD sd1 Miroslava Arreguin, RN RN srm Autumn, Annette, Reg Reg gb Bradly Ramírez, CRM TECHNICAL LEAD CRM TECHNICAL LEAD dd6 Giana Phillip, SHOLA RN hs1 Laine Moon RN RN sls1 Errol Gaitan jml1 Belia, Yvan, CRM TECHNICAL LEAD CRM TECHNICAL LEAD jlf Omayra Britt,RT RT sd7 Loreto Mary RN RN af2 Traci Cheng Corrections: (The following items were deleted from the chart) 13:40 13:37 BP 132 / 87; Pulse 103bpm; Resp 26bpm; Spontaneous; Pulse Ox 95% RA; Temp 100.2F dd6 Oral; 80.74 kg Reported; Height 5 ft. 8 in. Reported; BMI: 27.0; dd6 Chart Complete MTDD
--- NOTE | 2016-06-12 21:41 | EDDOCDS ---
Physician Documentation [facility] Name: Casey Velasquez Age: 65 yrs Sex: Male : 1950 Arrival Date: 06/10/2016 Time: 13:35 Bed 15 Private MD: Blaze Ruano FPA Disposition: 06/10/16 17:29 Hospitalization ordered by Billy Anguol for Inpatient Admission. Preliminary diagnosis are Influenza due to identified novel influenza A virus with other manifestations, Chronic obstructive pulmonary disease with (acute) exacerbation. - Bed requested for PCU. - Status is Inpatient Admission. sls1 - Condition is Stable. - Problem is new. - Symptoms have improved. Historical: - Allergies: Isa; PENICILLINS; Quinine Sulfate; - Home Meds: 1. folic acid 1 mg Oral tab 1 tab once daily (Last dose: 06/10/2016 08:30) 2. Tudorza Pressair 400 mcg/actuation inhalation aepb 1 puff every 12 hours (Last dose: 06/10/2016 06:00) 3. albuterol sulfate 1.25 mg/3 mL Nebulizer nebu prn 4. Atrovent 0.02 % Nebulizer soln (Last dose: 06/10/2016 13:00) 5. Toprol XL 50 mg Oral Tb24 1 tab once daily (Last dose: 06/10/2016 08:30) 6. Perforomist 20 mcg/2 mL inhalation nebu 2 times per day (Last dose: 06/10/2016 06:00) 7. budesonide 0.5 mg/2 mL inhalation nbsp 2 times per day (Last dose: 06/10/2016 06:00) 8. Vitamin C 1,000 mg Oral tab daily (Last dose: 06/10/2016 08:30) 9. vitamin b daily (Last dose: 06/10/2016 08:30) 10. Vitamin D3 2,000 unit oral cap daily (Last dose: 06/10/2016 08:30) 11. virginie daily probiotic 1 tab daily (Last dose: 06/10/2016 08:30) 12. ferrous sulfate 325 mg (65 mg iron) Oral tab twice a day (Last dose: 06/10/2016 12:00) 13. magnesium 250mg daily (Last dose: 06/10/2016 12:00) 14. Plavix 75 mg Oral tab 1 tab once daily (Last dose: 06/09/2016 21:00) 15. nitroglycerin 0.4 mg SL subl 1 tab as needed 16. loperamide 2 mg Oral cap 2 caps daily (Last dose: 06/09/2016 21:00) 17. ranitidine HCl 300 mg Oral cap 1 cap nightly (Last dose: 06/09/2016 21:00) 18. Musinex 1200 mg twice a day (Last dose: 06/10/2016 08:30) 19. prednisone 20 mg Oral tab once daily (Last dose: 06/10/2016 08:30) 20. Livalo 2 mg oral tab 1 tab nightly (Last dose: 06/09/2016 21:00) 21. Skelaxin 800 mg Oral tab 3 times per day prn 22. Celexa 20 mg Oral tab 1 tab nightly (Last dose: 06/09/2016 21:00) 23. Zyrtec 10 mg Oral tab 1 tab once daily (Last dose: 06/10/2016 08:30) 24. saline neb twice a day 25. Oxygen 2 L NC daily 26. Hizentra subcutaneous subcutaneous once wkly (Last dose: 06/05/2016) - PMHx: COPD; Emphysema; Heart Disease; - PSHx: Cardiac stents; Laminectomy; Aortic Valve Replacement, Bovine; broncoscopy; - Social history: Smoking status: Patient states former smoker of tobacco. No barriers to communication noted, The patient speaks fluent Pashto, Speaks appropriately for age. - Family history: Not pertinent. - : The pt / caregiver states he / she is on anticoagulants: Plavix. Home medication list is obtained from the patient. - Exposure Risk Screening:: None identified. Vital Signs: 06/10 13:37 BP 132 / 87; Pulse 103; Resp 26 S; Temp 100.2(O); Pulse Ox 95% on 2 lpm NC; Weight dd6 80.74 kg / 178 lbs (R); Height 5 ft. 8 in. (172.72 cm) (R); 14:29 BP 118 / 66 (auto/); hs1 14:30 Pulse 96 MON; Pulse Ox 94% ; hs1 14:59 BP 124 / 80 (auto/); hs1 15:00 Pulse 108 MON; Pulse Ox 95% ; hs1 15:14 BP 123 / 89 (auto/); hs1 15:15 Pulse 110 MON; Pulse Ox 94% ; hs1 15:29 BP 125 / 83 (auto/); hs1 15:30 Pulse 112 MON; Pulse Ox 93% ; hs1 15:44 BP 128 / 81 (auto/); hs1 15:45 Pulse 114 MON; Pulse Ox 93% ; hs1 15:59 BP 133 / 82 (auto/); hs1 16:00 Pulse 112 MON; Pulse Ox 92% ; hs1 16:14 BP 122 / 81 (auto/); hs1 16:15 Pulse 110 MON; Pulse Ox 92% ; hs1 16:29 BP 123 / 82 (auto/); hs1 16:29 Pulse 108 MON; Resp 20; Temp 103.2(O); Pulse Ox 93% ; hs1 16:44 BP 118 / 80 (auto/); hs1 16:45 Pulse 106 MON; Pulse Ox 93% ; hs1 16:59 BP 120 / 82 (auto/); hs1 17:00 Pulse 104 MON; Pulse Ox 93% ; hs1 17:14 BP 115 / 74 (auto/); hs1 17:15 Pulse 100 MON; Pulse Ox 92% ; hs1 17:29 BP 112 / 71 (auto/); hs1 17:30 Pulse 98 MON; Pulse Ox 93% ; hs1 17:44 BP 111 / 70 (auto/); hs1 17:45 Pulse 94 MON; Pulse Ox 93% ; hs1 17:59 BP 114 / 73 (auto/); hs1 18:00 Pulse 92 MON; Pulse Ox 94% ; hs1 18:14 BP 116 / 74 (auto/); hs1 18:15 Pulse 92 MON; Pulse Ox 94% ; hs1 18:29 BP 133 / 88 (auto/); hs1 18:29 Pulse 92 MON; Pulse Ox 94% ; hs1 18:44 BP 131 / 89 (auto/); hs1 18:44 BP 131 / 89; Pulse 92 MON; Resp 18; Temp 98.6(O); Pulse Ox 94% ; Pain 0/10; hs1 20:33 BP 120 / 77; Pulse 92; Resp 18 S; Temp 98.5(O); Pulse Ox 95% on 2 lpm NC; af2 13:37 Body Mass Index 27.06 (80.74 kg, 172.72 cm) dd6 MDM: 13:59 ECG WITH READING ER PHYS+CARDIAG ordered. EDMS 14:06 -Blood Culture (Adults Only), peripheral from different site, or from device/port/PICC sd1 etc. if present ordered. 14:06 Call Respiratory ordered. sd1 14:06 Lamp Wirer/Pulse Ox/q 15 min VS ordered. sd1 14:06 IV Saline Lock ordered. sd1 14:06 Oxygen at 4L/Min NC or Home dosage ordered. sd1 14:06 Rhythm Strip to chart ordered. sd1 14:06 -Arterial Blood Gas Ordered. EDMS 14:06 -Blood Culture Ordered. EDMS 14:06 B-Type Natiuretic Peptide Ordered. EDMS 14:06 Basic Metabolic Profile Ordered. EDMS 14:06 CBC with Diff Ordered. EDMS 14:06 Cardiac Injury Profile Ordered. EDMS 14:06 Troponin Ordered. EDMS 14:06 Albuterol-Ipratropium 1 neb Nebulizer every 20 minutes x3 ordered. sd1 14:07 Solu-MEDROL 125 mg IVP once ordered. sd1 14:08 -Influenza A&B Rapid Antigen - Nose Ordered. EDMS 14:08 Chest, 1 View Ordered. EDMS 14:29 Call Respiratory complete. hs1 14:34 -Blood Culture (Adults Only), peripheral from different site, or from device/port/PICC lbd etc. if present complete. 14:38 BLOOD CULTURES Ordered. EDMS 15:19 Financial registration complete. gjb 15:23 [facility] [place] Agreement was scanned into [employer] and attached to record. gjb 16:24 Acetaminophen Tablet 650 mg PO once ordered. sd1 16:24 -Arterial Blood Gas Reviewed. sd1 16:24 Basic Metabolic Profile Reviewed. sd1 16:24 CBC with Diff Reviewed. sd1 16:24 -Influenza A&B Rapid Antigen - Nose Reviewed. sd1 16:24 B-Type Natiuretic Peptide Reviewed. sd1 16:24 Cardiac Injury Profile Reviewed. sd1 16:24 Troponin Reviewed. sd1 16:24 Chest, 1 View Reviewed. sd1 16:25 Oseltamivir 75 mg PO once ordered. sd1 17:13 Chest, 1 View Reviewed. sd1 17:14 BED REQUEST+ADM ordered. EDMS 17:39 Admission / Observation Status ordered. EDMS 17:54 Admission / Observation Status ordered. EDMS 18:16 URINALYSIS Ordered. EDMS 18:16 MAGNESIUM LEVEL Ordered. EDMS 18:17 LACTIC ACID LEVEL, LACTATE Ordered. EDMS 18:22 SPUTUM CULTURE AND GRAM STAIN Ordered. EDMS 19:08 CPAP INPATIENT ordered. EDMS 19:34 CBC WITH DIFFERENTIAL Ordered. EDMS 19:34 BASIC METABOLIC PROFILE Ordered. EDMS 19:36 LACTIC ACID LEVEL, LACTATE Ordered. EDMS 19:52 LOW FAT LOW CHOLESTEROL DIET ordered. EDMS 06/11 12:17 LACTIC ACID LEVEL, LACTATE Reviewed. sd1 12:17 MAGNESIUM LEVEL Reviewed. sd1 12:17 EKG-ADULT Reviewed. sd1 06/12 11:30 T-Sheet-- Draft Copy was scanned into [employer] and attached to record. gb 11:31 ECG/EKG was scanned into [employer] and attached to record. gb 11:31 T-Sheet-- Draft Copy was scanned into [employer] and attached to record. gb Administered Medications: 06/10 14:28 Drug: Albuterol-Ipratropium 1 neb [ipratropium-albuterol 0.5 mg-3 mg(2.5 mg base)/3 mL sd7 nebulization soln (1 neb)] Route: Nebulizer; 14:41 Follow up: Response: Nebulizer completed sd7 14:47 Drug: Albuterol-Ipratropium 1 neb [ipratropium-albuterol 0.5 mg-3 mg(2.5 mg base)/3 mL sd7 nebulization soln (1 neb)] Route: Nebulizer; 14:55 Follow up: Response: Nebulizer completed sd7 15:05 Drug: Albuterol-Ipratropium 1 neb [ipratropium-albuterol 0.5 mg-3 mg(2.5 mg base)/3 mL sd7 nebulization soln (1 neb)] Route: Nebulizer; 15:51 Follow up: Response: Nebulizer completed sd7 15:17 Drug: Solu-MEDROL 125 mg [Solu-Medrol 500 mg intravenous solution (125 mg)] Route: IVP; hs1 Site: right forearm; 16:34 Drug: Acetaminophen 650 mg [acetaminophen 325 mg tablet (2 tabs)] Route: PO; hs1 16:34 Drug: Oseltamivir 75 mg [oseltamivir 75 mg capsule (1 caps)] Route: PO; hs1 Signatures: Dispatcher [employer] EDMS Mickie Bingham MD MD sd1 [address], [employer] lbd Miroslava Arreguin RN SH[facility] Randall RN daq Annette Leyva, Reg Reg gb Giana Phillip RN RN hs1 Laine Moon RN RN sls1 Loreto Mary RN RN af2 Traci Cheng gjb Omayra Britt RT sd7 The chart was reviewed and I authenticate all verbal orders and agree with the evaluation and treatment provided.Corrections: (The following items were deleted from the chart) 18:21 18:15 LOW FAT LOW CHOLESTEROL DIET ordered. EDMS EDMS 18:58 18:21 CONSISTENT CARBOHYDRATES ordered. EDMS EDMS 19:36 19:34 COMPLETE BLOOD COUNT ordered. EDMS EDMS 19:52 18:59 LOW FAT LOW CHOLESTEROL DIET ordered. EDMS EDMS 19:55 19:34 RENAL PROFILE ordered. EDMS EDMS 19:55 19:52 LACTIC ACID LEVEL, LACTATE ordered. EDMS EDMS Attachments: 15:23 [facility] [place] Payment Agreement gjb 11:31 ECG/EKG gb 11:31 T-Sheet-- Draft Copy gb Chart Complete MTDD
[2016-06-13] MEDS: IPRATROPIUM 0.5MG/ALBUTEROL 2.5MG INH SOL UD 3ML (DUONEB)(J7620) NEB SCH ×7 (00:53→23:54)
--- NOTE | 2016-06-13 04:22 | IPN ---
DATE OF SERVICE: 06/12/2016 Mr. Velasquez seems a little better today than yesterday. He has not had any fever, but he complains of generalized achiness, mild headache intermittently. He has been afebrile. Temperature is 97.7, pulse 78, respirations 18, blood pressure 136/80, oxygen saturation 95% on 3 liters nasal cannula. LABORATORY DATA: White count is 14.5, hemoglobin 13.5, hematocrit 39.6, platelets 193, 88% neutrophils, 5% lymphocytes. Sodium 138, potassium 4.2, chloride 102, bicarbonate 25, BUN 20, creatinine 0.96, glucose 185, calcium 9.1, TSH 0.257, free T4 0.85, lactic acid down from 4.1 to 2.9. Sputum culture could not be obtained. The patient is not able to bring up his sputum. Blood cultures two sets are no growth after 24 hours. Influenza A positive. IMAGING STUDIES: Chest x-ray shows bibasilar fibroatelectatic scarring, right more than left, possible small calcified granuloma, previous aortic valve prosthesis, mild persistent ectasia in thoracic aorta. No acute infiltrate noted. CT abdomen shows a focal area of narrowing in the mid descending colon compatible with spasm, few foci of pneumatosis in the proximal sigmoid colon, no mural thickening, scarring of both base lungs, improved compared to 2013. Extensive coronary artery calcifications. IMPRESSION: 1. Influenza with chronic obstructive pulmonary disease (COPD) exacerbation. The patient has significant respiratory wheezing and shortness of breath, but he is not significantly hypoxic. The patient has myalgia consistent with influenza. He has been on broad-spectrum antibiotics for the past 3 weeks. I doubt he has a bacterial infection. His chest x-ray does not suggest pneumonia and I would rather treat him with Tamiflu and steroids than giving him more broad-spectrum antibiotics. The patient is at very high risk of multidrug resistant infection as he is on antibiotics more than three-quarters of the month as an outpatient. He had just finished a course of Rocephin, Levaquin and Avelox. Continue treatment for influenza unless the patient deteriorates or is febrile sputum culture is consistent more for Pseudomonas infection. 2. Common variable immunodeficiency. The patient is on Hizentra subcutaneously once a week, which could be held during this hospitalization and be given every other week. His most recent IgG level 162 during previous hospitalization.
[2016-06-13 04:45] VITALS: BP 143/79
[2016-06-13 05:43] LABS: BASO # 0.1 K/mm3 (0.0-0.2); BASO % 0.6 % (0.0-1.0); EOS # 0.1 K/mm3 (0.0-0.50); EOS % 0.5 % (0.0-3.0); LARGE UNSTAINED CELL # 0.4 K/mm3 (0.0-0.4); LARGE UNSTAINED CELL % 3.1 % (0.0-4.0); LYMPH # 0.8 K/mm3 (1.5-4.5); LYMPH % 6.4 % (24.0-44.0); MEAN CORPUSCULAR HGB CONC 33.7 g/dl (32.0-36.5); MONO # 0.5 K/mm3 (0.0-0.8); NEUTROPHILS # 10.5 K/mm3 (1.8-7.7); NEUTROPHILS % 85.4 % (36.0-66.0); PLATELET COUNT, AUTOMATED 208 k/mm3 (150-450); RED CELL DISTRIBUTION WIDTH 12.7 % (11.5-14.5); WHITE BLOOD COUNT 12.3 K/mm3 (4.0-10.0)
[2016-06-13 06:06] LABS: ANION GAP 9 MEQ/L (8-16); BLOOD UREA NITROGEN 27 MG/DL (7-18); CALCIUM LEVEL 9.1 MG/DL (8.8-10.2); CARBON DIOXIDE LEVEL 26 MEQ/L (21-32); CHLORIDE LEVEL 102 MEQ/L (98-107); CREATININE FOR GFR 0.86 MG/DL (0.70-1.30); GLOMERULAR FILTRATION RATE > 60.0 (>49); GLUCOSE, FASTING 227 MG/DL (80-110); POTASSIUM SERUM 4.3 MEQ/L (3.5-5.1); SODIUM LEVEL 137 MEQ/L (136-145)
[2016-06-13] MEDS: HEPARIN SOD (PORCINE) 5000 UNITS/ML VIAL SC SCH ×3 (06:06→20:55)
[2016-06-13] MEDS: methylPREDNISolone INJ 40 MG/1 ML VIAL (J2920) IV SCH ×3 (06:06→20:55)
[2016-06-13] MEDS: BUDESONIDE 0.5 MG/2 ML INHALATION SUSPENSION INH SCH ×2 (07:17→19:24)
[2016-06-13] MEDS: FORMOTEROL FUMARATE 20 MCG/2 ML INHALATION SOLUTION (PERFOROMIST) INH SCH ×2 (07:17→19:24)
[2016-06-13] MEDS: ACLIDINIUM INH SCH ×2 (07:18→19:26)
[2016-06-13 08:00] VITALS: BP 135/87
[2016-06-13] MEDS: HumaLOG INSULIN (NovoLOG) PER UNIT SC SCH ×4 (08:24→21:25)
[2016-06-13] MEDS: LOPERAMIDE 2 MG CAP PO SCH ×2 (08:25→20:54)
[2016-06-13] MEDS: OSELTAMIVIR PHOSPHATE 75 MG CAP (TAMIFLU) PO SCH ×2 (08:25→20:54)
[2016-06-13] MEDS: FOLIC ACID 1 MG TAB PO SCH (08:25)
[2016-06-13] MEDS: VITAMIN B COMPLEX/VIT C CAP PO SCH (08:25)
[2016-06-13] MEDS: FERROUS SULFATE 325MG TAB PO SCH ×2 (08:25→20:53)
[2016-06-13] MEDS: guaiFENesin ER 600 MG TAB PO SCH ×2 (08:25→20:54)
[2016-06-13] MEDS: LACTOBACILLUS ACIDOPHILUS CAP (BACID) PO SCH (08:25)
[2016-06-13] MEDS: CETIRIZINE (ZyrTEC) 10 MG TAB PO SCH (08:25)
[2016-06-13] MEDS: ASCORBIC ACID 500 MG TAB PO SCH (08:25)
[2016-06-13] MEDS: METOPROLOL SUCC (TopROL XL) 50MG **XL** TAB PO SCH (08:26)
[2016-06-13] MEDS: SENOKOT S TAB PO SCH ×2 (08:26→21:03)
[2016-06-13] MEDS: OMEPRAZOLE 20 MG CAP PO SCH (08:26)
[2016-06-13] MEDS: VITAMIN D 1,000 INTERNATIONAL UNITS TABLET PO SCH (08:26)
[2016-06-13] MEDS: SIMETHICONE 80 MG CHEW TAB PO SCH ×3 (08:26→20:53)
--- NOTE | 2016-06-13 09:43 | IPN ---
DATE OF SERVICE: 06/12/2015 Patient seen and examined. Continues to have dyspnea and chest pressure. Denies any fevers or chills. No able to cough up any sputum, but comfortable. VITAL SIGNS: Temperature 97.7, pulse 78, respirations 18, blood pressure 136/80, pulse oximetry 95% on 2 liters nasal cannula. LABORATORIES: WBC 14.5, hemoglobin and hematocrit (H and H) 13.5 and 39.6, platelets 193. Chemistry: Sodium 138, potassium 4.2, chloride 102, bicarbonate 25, BUN 20, creatinine 0.96. PHYSICAL EXAMINATION: GENERAL: Patient is pleasant, elderly, alert and oriented times three. No acute distress. Lying comfortably in bed. HEENT: Normocephalic, atraumatic. Moist mucous membranes. CARDIAC: Regular rate and rhythm. Normal S1, S2. No murmurs detected. PULMONARY: Diffuse bilateral wheeze. Distant breath sounds. ABDOMEN: Soft, nontender. Positive bowel sounds. No rebound. No guarding. EXTREMITIES: No clubbing, cyanosis or edema. ASSESSMENT AND PLAN: This a 65-year-old male patient with underlying medical history of severe emphysema, chronic obstructive pulmonary disease (COPD) end-stage, oxygen dependent, obstructive sleep apnea on continuous positive airway pressure (CPAP) at night, coronary artery disease with stent placement, severe aortic valve disease status post bioprosthetic valve replacement, borderline diabetes, common variable immunodeficiency, recurrent influenza infection, recurrent pneumonia, dyslipidemia, diverticulitis, who presented with sepsis secondary to influenza A virus with possible superimposed infection. 1. Sepsis secondary to influenza A virus with possible superimposed infection. Patient initially given antibiotics. Infectious disease, Dr. Davis, was consulted. Currently patient on Tamiflu. CT scan of the chest has been appreciated. Will follow C-reactive protein. Adjustment of antibiotics as per Dr. Davis. 2. Chronic obstructive pulmonary disease (COPD) exacerbation with worsening hypoxia. Continue taper steroids as tolerated. Die Repairer Trimmer Dies, Dr. Kline, has been consulted. Patient with severe end-stage emphysema/COPD. Continue inhalers of budesonide, formoterol, ProAir, nebulizer treatment, oxygen supplementation. Further management as per Dr. Kline. Patient previously required heliox during previous admissions. 3. Common variable immunodeficiency. Dr. Davis has been consulted. Continue home medications. Refusing weekly infusion. Continue medication as ordered. 4. Steroid-induced hypoglycemia and borderline diabetes. Followup fingersticks. Insulin as needed. Continue to monitor. 5. Coronary artery disease with catheterization. Continue Plavix, beta-jenny. Continue to monitor. 6. Severe aortic valve disease with bioprosthetic valve. Continue Plavix. 7. Allergy. Continue medication as ordered. 8. Facial swelling, possibly related to steroids. Continue to follow. Thyroid stimulating hormone (TSH) appreciated. 9. Abdominal distention. CT appreciated. No obstructive pattern. Bowel regimen as prescribed. 10. Constipation. Bowl regimen as prescribed. Follow up bowel movements. 11. Deep venous thrombosis (DVT) prophylaxis. Heparin subcutaneously. DISPOSITION PLANNING: Pending clinical improvement, cultures, IDN, pulmonary recommendations. Patient with severe lung disease, immunocompromised. Poor overall prognosis.
[2016-06-13 12:00] VITALS: BP 134/78
[2016-06-13 16:00] VITALS: BP 151/77
[2016-06-13 20:00] VITALS: BP 156/72
[2016-06-13] MEDS: MONTELUKAST 10 MG TAB PO SCH (20:53)
[2016-06-13] MEDS: FAMOTIDINE 20 MG TAB PO SCH (20:54)
[2016-06-13] MEDS: CLOPIDOGREL 75 MG TAB PO SCH (20:54)
[2016-06-13] MEDS: CitaloPRAM (CeleXA) 20 MG TAB PO SCH (20:54)
[2016-06-13] MEDS ORDERED: HIZENTRA SC ONE (21:00)
[2016-06-13] MEDS ORDERED: diphenhydrAMINE 50 MG CAP As Ordered ONE (21:19)
[2016-06-13 23:59] VITALS: BP 153/90
[2016-06-14] MEDS: IPRATROPIUM 0.5MG/ALBUTEROL 2.5MG INH SOL UD 3ML (DUONEB)(J7620) NEB SCH ×6 (03:08→23:48)
[2016-06-14 04:45] VITALS: BP 160/88
[2016-06-14] MEDS: methylPREDNISolone INJ 40 MG/1 ML VIAL (J2920) IV SCH (05:28)
[2016-06-14] MEDS: HEPARIN SOD (PORCINE) 5000 UNITS/ML VIAL SC SCH ×3 (05:28→22:38)
[2016-06-14 05:31] LABS: BASO # 0.3 K/mm3 (0.0-0.2); BASO % 2.2 % (0.0-1.0); LARGE UNSTAINED CELL # 0.9 K/mm3 (0.0-0.4); LARGE UNSTAINED CELL % 5.6 % (0.0-4.0); LYMPH % 7.4 % (24.0-44.0); MEAN CORPUSCULAR HEMOGLOBIN 32.4 pg (27.0-33.0); MEAN CORPUSCULAR VOLUME 95.1 fl (80.0-96.0); MONO # 0.5 K/mm3 (0.0-0.8); MONO % 3.4 % (0.0-5.0); NEUTROPHILS # 12.4 K/mm3 (1.8-7.7); NEUTROPHILS % 81.3 % (36.0-66.0); PLATELET COUNT, AUTOMATED 224 k/mm3 (150-450); RED CELL DISTRIBUTION WIDTH 13.4 % (11.5-14.5); WHITE BLOOD COUNT 15.2 K/mm3 (4.0-10.0)
[2016-06-14 06:35] LABS: ANION GAP 10 MEQ/L (8-16); BLOOD UREA NITROGEN 25 MG/DL (7-18); CALCIUM LEVEL 9.1 MG/DL (8.8-10.2); CARBON DIOXIDE LEVEL 25 MEQ/L (21-32); CHLORIDE LEVEL 100 MEQ/L (98-107); CREATININE FOR GFR 0.92 MG/DL (0.70-1.30); GLOMERULAR FILTRATION RATE > 60.0 (>49); GLUCOSE, FASTING 199 MG/DL (80-110); POTASSIUM SERUM 4.2 MEQ/L (3.5-5.1); SODIUM LEVEL 135 MEQ/L (136-145)
[2016-06-14] MEDS: FORMOTEROL FUMARATE 20 MCG/2 ML INHALATION SOLUTION (PERFOROMIST) INH SCH ×2 (07:23→19:33)
[2016-06-14] MEDS: BUDESONIDE 0.5 MG/2 ML INHALATION SUSPENSION INH SCH ×2 (07:23→19:33)
[2016-06-14] MEDS: ACLIDINIUM INH SCH ×2 (07:24→21:00)
[2016-06-14 08:00] VITALS: BP 121/78
[2016-06-14] MEDS: HumaLOG INSULIN (NovoLOG) PER UNIT SC SCH ×4 (08:03→22:39)
[2016-06-14] MEDS: VITAMIN B COMPLEX/VIT C CAP PO SCH (08:04)
[2016-06-14] MEDS: FOLIC ACID 1 MG TAB PO SCH (08:05)
[2016-06-14] MEDS: METOPROLOL SUCC (TopROL XL) 50MG **XL** TAB PO SCH (08:05)
[2016-06-14] MEDS: LACTOBACILLUS ACIDOPHILUS CAP (BACID) PO SCH (08:05)
[2016-06-14] MEDS: OMEPRAZOLE 20 MG CAP PO SCH (08:05)
[2016-06-14] MEDS: ASCORBIC ACID 500 MG TAB PO SCH (08:05)
[2016-06-14] MEDS: FERROUS SULFATE 325MG TAB PO SCH ×2 (08:06→22:39)
[2016-06-14] MEDS: VITAMIN D 1,000 INTERNATIONAL UNITS TABLET PO SCH (08:06)
[2016-06-14] MEDS: OSELTAMIVIR PHOSPHATE 75 MG CAP (TAMIFLU) PO SCH ×2 (08:06→22:40)
[2016-06-14] MEDS: LOPERAMIDE 2 MG CAP PO SCH ×2 (08:06→22:39)
[2016-06-14] MEDS: CETIRIZINE (ZyrTEC) 10 MG TAB PO SCH (08:06)
[2016-06-14] MEDS: SIMETHICONE 80 MG CHEW TAB PO SCH ×3 (08:07→22:40)
[2016-06-14] MEDS: SENOKOT S TAB PO SCH ×2 (08:07→22:39)
[2016-06-14] MEDS: guaiFENesin ER 600 MG TAB PO SCH ×2 (08:07→22:40)
--- NOTE | 2016-06-14 10:54 | IPN ---
DATE OF SERVICE: 06/13/2016 TIME THE PATIENT WAS SEEN: Was at 9:25. ATTENDING DOCTOR: Dr. Alisson Patel The patient was seen and examined at bedside. No acute events overnight. The patient stated that he is breathing better with the heliox treatment. Denies any fever or chills. He admits to a little bit of chest pressure. Otherwise, no abdominal pains, nausea, vomiting, diarrhea, constipation, or problem with urination. PHYSICAL EXAMINATION: VITAL SIGNS: Temperature was 96.6, pulse 73, respiration 18, blood pressure 125/87, oxygen was saturating 99% on 2 liters of nasal cannula. GENERAL: The patient is an obese elderly male who was alert, awake, oriented times three. Does not appear to be in distress. Resting comfortably in bed with head elevated at 60-degree angle. HEENT: Normocephalic, atraumatic. Extraocular motor intact. Mucosa moist. NECK: Supple. No neck lymphadenopathy. CARDIOVASCULAR: Regular rate and rhythm. S1, S2. Difficult to auscultate due to increased AP diameter and body habitus. LUNGS: Diffuse wheezing bilaterally, mostly on expiration, and the patient does have increased AP diameter. The patient also has prolonged expiration around 3 seconds. ABDOMEN: Positive bowel sounds. Soft, nontender, nondistended. No peritoneal signs. No ecchymosis. EXTREMITIES: No edema, clubbing, or cyanosis. SKIN: Warm and dry. NEUROLOGIC: Cranial nerves II-XII intact. No focal neurologic deficit. LABORATORIES: On 06/13/2016, the patient WBC 12.3, hemoglobin 13.2, hematocrit 39.2, with a platelet count of 208, MCV was 95. Sodium 137, potassium 4.3, chloride 102, bicarbonate 26, BUN 27, creatinine 0.86 , GFR greater than 60, fasting glucose 227, calcium 9.1, CRP was 3.02. Accu-Chek blood glucose was 262, 235, 240. Blood culture times two shows no growth after 3 days. No new imaging. ASSESSMENT AND PLAN: A 65-year-old male with a past medical history of severe emphysema, chronic obstructive pulmonary disease (COPD) end-stage, oxygen dependent, and obstructive sleep apnea on continuous positive airway pressure (CPAP) at night, coronary artery disease with stent placement, severe aortic valve disease status post bioprosthetic valve replacement, borderline diabetes, common variable immunoglobulin deficiency, recurrent influenza infection, recurrent pneumonia, dyslipidemia, diverticulitis, who presented with sepsis secondary to influenza A virus and possible superimposed infection. 1. Sepsis secondary to influenza A virus and possible superimposed infection. Infectious disease, Dr. Davis, has been consulted. We appreciate her help. Continue the patient on Tamiflu. CT scan of the chest was done. Will continue to trend C-reactive protein (CRP) and will adjust antibiotic per Dr. Davis. The patient was on Merrem 2. Chronic obstructive pulmonary disease (COPD) exacerbation with worsening hypoxia. Continue to taper steroid per crowning inspector, Dr. Kline', recommendation. Will continue to follow Dr. Kline' recommendation regarding management. Continue inhalers of budesonide, formoterol, ProAir, nebulizer treatment, oxygen supplements. The patient is also on heliox. Will continue. 3. Common variable immunoglobulin deficiency. Dr. Davis has been consulted. Will follow her recommendation. Per Dr. Davis, the patient does not need a weekly infusion while in the hospital due to stable immunoglobulin the last time he was in the hospital and can go back to biweekly infusion while the patient is in the hospital. 4. Steroid-induced hypoglycemia and borderline diabetes. Continue fingersticks and insulin as needed. 5. Coronary artery disease with stent placement and catheterization. Continue Plavix, beta jenny. Continue to monitor. 6. Severe aortic valve disease with bioprosthetic valve. Continue Plavix. 7. Allergies. Continue home medication. 8. Facial swelling, possibly related to steroid. Continue to follow. Thyroid stimulating hormone (TSH) has been normal. 9. Abdominal distention. CT has been ordered. No obstruction. Continue bowel regimen. 10. Constipation. Continue bowel regimen. 11. Deep venous thrombosis (DVT) prophylaxis. On subcutaneous heparin. DISPOSITION: Pending clinical improvement. Will continue to follow infectious disease and pulmonary recommendations. The patient, however, does have a poor prognosis overall and due to severe lung disease and the immunocompromise. The patient has been discussed with attending doctor, Dr. Patel. My preceptor for this patient encounter was Dr. Alisson Patel. The preceptor was physically present in the building during the encounter and was fully available. As needed, all aspects of the patient interview, examination, medical decision making process, and medical care plan development were reviewed and approved by the preceptor. The preceptor is aware and concurs with the plan as stated in the body of this note and will attest to such by his/her cosignature. I have both independently examined this patient as well as reviewed the note. I have discussed in detail with the resident the findings and plan of treatment as documented in the residents note. I will continue to follow the patient and offer further guidance to the patients care as necessary during this hospital stay. Alisson CASANOVA
[2016-06-14 12:00] VITALS: BP 156/90
[2016-06-14] MEDS: predniSONE 20 MG TAB PO SCH (12:42)
[2016-06-14 16:00] VITALS: BP 168/85
[2016-06-14 22:25] VITALS: BP 157/83
[2016-06-14] MEDS: MONTELUKAST 10 MG TAB PO SCH (22:39)
[2016-06-14] MEDS: CLOPIDOGREL 75 MG TAB PO SCH (22:39)
[2016-06-14] MEDS: CitaloPRAM (CeleXA) 20 MG TAB PO SCH (22:39)
[2016-06-14] MEDS: FAMOTIDINE 20 MG TAB PO SCH (22:40)
[2016-06-14 23:59] VITALS: BP 158/84
[2016-06-15] MEDS: IPRATROPIUM 0.5MG/ALBUTEROL 2.5MG INH SOL UD 3ML (DUONEB)(J7620) NEB SCH ×3 (03:12→11:56)
[2016-06-15 03:15] VITALS: O2SAT 91
[2016-06-15 04:00] VITALS: BP 162/87
[2016-06-15] MEDS: HEPARIN SOD (PORCINE) 5000 UNITS/ML VIAL SC SCH (05:13)
[2016-06-15 05:44] LABS: BASO # 0.1 K/mm3 (0.0-0.2); BASO % 0.7 % (0.0-1.0); EOS % 0.2 % (0.0-3.0); LARGE UNSTAINED CELL # 0.4 K/mm3 (0.0-0.4); LARGE UNSTAINED CELL % 3.5 % (0.0-4.0); LYMPH # 2.2 K/mm3 (1.5-4.5); LYMPH % 17.9 % (24.0-44.0); MEAN CORPUSCULAR HEMOGLOBIN 32.9 pg (27.0-33.0); MEAN CORPUSCULAR HGB CONC 35.3 g/dl (32.0-36.5); MEAN CORPUSCULAR VOLUME 93.5 fl (80.0-96.0); MONO # 0.6 K/mm3 (0.0-0.8); MONO % 5.1 % (0.0-5.0); NEUTROPHILS % 72.5 % (36.0-66.0); PLATELET COUNT, AUTOMATED 239 k/mm3 (150-450); RED CELL DISTRIBUTION WIDTH 12.5 % (11.5-14.5); WHITE BLOOD COUNT 12.4 K/mm3 (4.0-10.0)
[2016-06-15 06:10] LABS: ANION GAP 9 MEQ/L (8-16); BLOOD UREA NITROGEN 30 MG/DL (7-18); CALCIUM LEVEL 8.7 MG/DL (8.8-10.2); CARBON DIOXIDE LEVEL 27 MEQ/L (21-32); CHLORIDE LEVEL 104 MEQ/L (98-107); CREATININE FOR GFR 0.76 MG/DL (0.70-1.30); GLOMERULAR FILTRATION RATE > 60.0 (>49); GLUCOSE, FASTING 149 MG/DL (80-110); POTASSIUM SERUM 3.7 MEQ/L (3.5-5.1); SODIUM LEVEL 140 MEQ/L (136-145); T UPTAKE 35 % (33-40); THYROXINE (T4) 3.1 UG/DL (4.5-12.0)
[2016-06-15 07:40] VITALS: BP 166/89
[2016-06-15] MEDS: BUDESONIDE 0.5 MG/2 ML INHALATION SUSPENSION INH SCH (08:34)
[2016-06-15] MEDS: FORMOTEROL FUMARATE 20 MCG/2 ML INHALATION SOLUTION (PERFOROMIST) INH SCH (08:34)
[2016-06-15] MEDS: ACLIDINIUM INH SCH (08:37)
[2016-06-15] MEDS: SENOKOT S TAB PO SCH (09:00)
[2016-06-15] MEDS ORDERED: FLUCONAZOLE 100 MG TAB PO SCH (09:00)
[2016-06-15] MEDS ORDERED: CEPA1LOZ2 PO (09:07)
[2016-06-15] MEDS ORDERED: PRED20TA PO (09:07)
[2016-06-15] MEDS ORDERED: ALBU83IN INH (09:07)
[2016-06-15] MEDS ORDERED: IPRA2IN INH (09:07)
[2016-06-15] MEDS ORDERED: SIME80TA PO (09:07)
[2016-06-15] MEDS ORDERED: MONT10TA2 PO (09:07)
[2016-06-15] MEDS ORDERED: SENN1TAB2 PO (09:07)
[2016-06-15] MEDS: HumaLOG INSULIN (NovoLOG) PER UNIT SC SCH ×2 (09:58→12:00)
[2016-06-15] MEDS: ASCORBIC ACID 500 MG TAB PO SCH (09:59)
[2016-06-15] MEDS: OMEPRAZOLE 20 MG CAP PO SCH (09:59)
[2016-06-15] MEDS: LACTOBACILLUS ACIDOPHILUS CAP (BACID) PO SCH (09:59)
[2016-06-15] MEDS: guaiFENesin ER 600 MG TAB PO SCH (10:00)
[2016-06-15] MEDS: predniSONE 20 MG TAB PO SCH (10:00)
[2016-06-15] MEDS: FOLIC ACID 1 MG TAB PO SCH (10:00)
[2016-06-15] MEDS: VITAMIN B COMPLEX/VIT C CAP PO SCH (10:01)
[2016-06-15] MEDS: VITAMIN D 1,000 INTERNATIONAL UNITS TABLET PO SCH (10:01)
[2016-06-15] MEDS: LOPERAMIDE 2 MG CAP PO SCH (10:02)
[2016-06-15] MEDS: CETIRIZINE (ZyrTEC) 10 MG TAB PO SCH (10:02)
[2016-06-15 10:03] VITALS: BP 166/89
[2016-06-15] MEDS: METOPROLOL SUCC (TopROL XL) 50MG **XL** TAB PO SCH (10:03)
[2016-06-15] MEDS: OSELTAMIVIR PHOSPHATE 75 MG CAP (TAMIFLU) PO SCH (10:03)
[2016-06-15] MEDS: SIMETHICONE 80 MG CHEW TAB PO SCH (10:04)
[2016-06-15] MEDS: FERROUS SULFATE 325MG TAB PO SCH (10:04)
--- NOTE | 2016-06-15 19:53 | IPN ---
DATE OF SERVICE: 06/14/2016 The patient feels a little better today. Denies any worsening of shortness of breath. He does feel that he is moving more air. Denies any fever or chills. Denies any nausea or vomiting or diarrhea. Denies any abdominal pain or cough. Denies any leg swelling. PHYSICAL EXAMINATION: VITAL SIGNS: Temperature 96, pulse 80, respiratory rate 20, blood pressure 156/90, pulse oximetry 94% on 2 liters nasal cannula. GENERAL: The patient is awake, alert and oriented times three. Sitting up in bed in no acute distress. HEENT: Normocephalic atraumatic. Moist mucous membranes. Anicteric eyes. CHEST: Overall poor air entry; however, right sided air entry is worse than the left. There is mild wheezing present on the right also. CARDIOVASCULAR: S1, S2 regular. ABDOMEN: Obese, soft, nontender. Bowel sounds present. EXTREMITIES: No edema. LABORATORY DATA: WBC 15, hemoglobin 13.6, platelets 224. Sodium 135, potassium 4.2. Chloride 100, bicarbonate 25, BUN 25, creatinine 0.9. Glucose 199, calcium 9.1. ASSESSMENT AND PLAN: This is a 65-year-old male admitted for influenza A, sepsis , possible superimposed secondary infection and chronic pulmonary obstructive disease (COPD) exacerbation. PLAN: 1. Influenza A. Will continue treatment with Tamiflu. The patient does not seem to have any other focus of infection so antibiotics have been discontinued. 2. Chronic obstructive pulmonary disease (COPD) exacerbation thought to be due to influenza. The patient's treatment as per Dr. Kline. The patient has been started on steroid tapering. The patient is on Heliox. Will continue with budesonide, formoterol, albuterol nebulizer treatment. 3. Common variable immunoglobulin deficiency. The patient has stable IgG levels from outpatient so as per Dr. Davis does not need weekly infusions at this point. Can do biweekly infusions while in the hospital. 4. Steroid induced hyperglycemia. Better controlled now with a decreasing dose of steroids. Leukocytosis possibly related to a combination of COPD exacerbation and steroids. 5. Coronary artery disease with history of cardiac catheterization. Continue with beta jenny and Plavix. 6. History of bioprosthetic aortic valve replacement. Stable at this point. 7. History of ALLERGIES: Continue home medications. 8. Deep venous thrombosis (DVT) prophylaxis, has been ordered. 9. Abnormal thyroid function test with low TSH level and low normal free T4 level. Will recheck levels tomorrow. MTDD
--- NOTE | 2016-06-19 02:54 | DSES ---
DATE OF ADMISSION: 06/10/2016 DATE OF DISCHARGE: 06/15/2016 PRIMARY CARE PROVIDER: MARGA Walsh. TIMERS INSPECTOR: Warren Kline DO. DISCHARGE DIAGNOSES: 1. Influenza A treated with a course of Tamiflu. 2. Chronic obstructive pulmonary disease (COPD) exacerbation. 3. 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 4. Steroid-induced hyperglycemia. 5. Coronary artery disease with a history of cardiac catheterization. 6. Aortic stenosis status post bioprosthetic aortic valve replacement. 7. Chronic respiratory failure with hypoxia. 8. Lactic acidosis, resolved. 9. Obstructive sleep apnea. 10. Bronchiectasis. 11. Hyperlipidemia. 12. History of pneumothorax. 13. Hypertension. DISCHARGE MEDICATIONS: - albuterol ipratropium metered-dose inhaler (MDI) one puff inhalation four times a day as needed - ascorbic acid 1000 mg by mouth daily - Montelukast sodium 10 mg by mouth at bedtime - prednisone tapering course. - simethicone 80 mg by mouth three times a day - Senokot-S one tablet by mouth twice a day - Cepacol lozenges one lozenge every 4 hours as needed for cough - vitamin B complex one tablet by mouth daily - budesonide inhalation 0.5 mg inhalation twice a day - sertraline 10 mg by mouth daily - cholecalciferol 2000 units by mouth daily - Celexa 20 mg at bedtime - Plavix 75 mg at bedtime - ferrous sulfate 325 mg by mouth twice a day - fluconazole 200 mg once a week - folic acid 1 mg by mouth daily - formoterol nebulizer solution 20 mcg twice a day - guaifenesin 1200 mg by mouth twice a day - Hizentra one injection subcutaneously every 2 weeks, dose reduced from every week to every 2 weeks - lactobacillus one capsule by mouth daily - loperamide 4 mg by mouth twice a day - magnesium 250 mg by mouth daily - metoprolol succinate 50 mg by mouth daily - nitroglycerin 0.4 mg sublingually as needed for angina - omeprazole 40 mg by mouth daily - pitavastatin 20 mg by mouth at bedtime - ranitidine 300 mg at bedtime - Tudorza Pressair one inhalation twice a day - albuterol nebulizer solution one twice a day - ipratropium nebulizer solution 0.4 mg three times a day HOSPITAL COURSE: This is a 65-year-old male who presented to the hospital with fever, chills, cough, and shortness of breath. Patient was diagnosed with influenza A and was started on Tamiflu. Patient was also found to have COPD exacerbation thought to be due to influenza requiring increased oxygenation, frequent nebulizers, high-dose steroids, as well as heliox treatment. Patient was seen by Dr. Davis, infectious disease and Dr. Kline, pharmacy technician per diem in the hospital. Patient slowly improved in the hospital and gradually oxygen was tapered down to his home level of 2 liters. Patient's IgG level was checked and found to be most recent level was 162 during a previous hospitalization and as per Dr. Davis's recommendation, his Hizentra injection was reduced from once a week to once every 2 weeks. On the day of the discharge, patient was comfortable with stable vital signs, back to his functional baseline. Patient opted to be DO NOT RESUSCITATE. His Medical Orders for Life-Sustaining Treatment (MOLST) form has been placed in his chart. VITAL SIGNS: Temperature 96.5, pulse 77, respiratory rate 20, blood pressure 166/89, pulse oximetry 95% with 2 liters nasal cannula. GENERAL: Patient awake, alert, oriented times three, sitting up in bed in no acute distress. HEENT: Normocephalic, atraumatic. Moist mucous membranes. Anicteric eyes. CHEST: Clear to auscultation. CARDIOVASCULAR: S1, S2, regular. No rub, murmur or gallop. ABDOMEN: Obese, soft, nontender, bowel sounds present. EXTREMITIES: No edema. LABORATORY DATA: WBC 12.4, hemoglobin 13.1, platelets 239. Sodium 140, potassium 3.7, chloride 104, bicarbonate 27, BUN 13, creatinine 0.6, glucose 149, calcium 8.7. TSH was 1.29. Blood cultures were negative. DISPOSITION: Patient is discharged home in a stable condition. DISCHARGE INSTRUCTIONS: Patient to followup with primary care provider in 1-2 weeks. Patient to followup with Dr. Kline as an outpatient. Carbohydrate consistent diet. Activity as tolerated.
== END 2016-06-15 15:00 | disposition home or self-care (01) | DRG 872 ==
LOC: M ED 13:35 → M ED INP 17:36 → M PCU 20:42
PROVIDERS: ADMIT Hospitalist; ATTEND Internal Medicine Nephrology
DX: A41.9 Sepsis, unspecified organism (principal); D83.9 Common variable immunodeficiency, unspecified; E87.2 Acidosis; J44.1 Chronic obstructive pulmonary disease with (acute) exacerbation; J96.11 Chronic respiratory failure with hypoxia; J10.1 Influenza due to other identified influenza virus with other respiratory manifestations; I25.10 Atherosclerotic heart disease of native coronary artery without angina pectoris; G47.33 Obstructive sleep apnea (adult) (pediatric); F41.9 Anxiety disorder, unspecified; E55.9 Vitamin D deficiency, unspecified; K59.00 Constipation, unspecified; R14.0 Abdominal distension (gaseous); D50.9 Iron deficiency anemia, unspecified; R22.0 Localized swelling, mass and lump, head; E78.5 Hyperlipidemia, unspecified; R73.03 Prediabetes; T38.0X5A Adverse effect of glucocorticoids and synthetic analogues, initial encounter; Z88.0 Allergy status to penicillin; Z88.6 Allergy status to analgesic agent; Z88.8 Allergy status to other drugs, medicaments and biological substances; Z79.51 Long term (current) use of inhaled steroids; Z79.52 Long term (current) use of systemic steroids; Z79.899 Other long term (current) drug therapy; Z99.81 Dependence on supplemental oxygen; Z95.5 Presence of coronary angioplasty implant and graft; Z95.2 Presence of prosthetic heart valve; Z79.02 Long term (current) use of antithrombotics/antiplatelets

== ENCOUNTER → 2016-07-01 | Outpatient (CLI) | payer MEDICARE, OTHER ==
[~2016-07-01] MED LIST changes: +ALBU83IN INH; +CEPA1LOZ2 PO; +CETI10TA PO; +FLUC200T2 PO; -IMOD2TAB14 PO; +IMOD2TAB16 PO; +IPRA2IN INH; +LOPE2TAB PO; +MAGN250T2 PO; +MONT10TA2 PO; -PLAV75TA PO; +PLAV75TA38 PO; +RANI300T PO; +SENN1TAB2 PO; +SIME80TA PO; +THEO1CAP2 PO; -THEO1CAP6 PO; +VITATAB11 PO; +[UNRECOGNIZED DRUG - CODE] SC
== END ==
LOC: M RADPRO 08:00
PROVIDERS: ATTEND Internal Medicine Infectious Disease
DX: A49.1 Streptococcal infection, unspecified site (principal)

== ENCOUNTER 2016-07-02 09:47 | Outpatient (CLI) | payer MEDICARE, OTHER ==
[~2016-07-02 09:47] MED LIST changes: +SODIUM CHLORIDE 0.9% INJ 10 ML SYR IV PRN
[2016-07-02] MEDS ORDERED: VANCOMYCIN HCL 1,000 MG, VIAL MATE ADAPTER 1 EACH in D5W 250 ML IV ONE (10:00)
[2016-07-02] MEDS ORDERED: SODIUM CHLORIDE 0.9% INJ 10 ML SYR IV SCH (18:00)
== END 2016-07-02 11:10 | disposition home or self-care (01) ==
LOC: M INFU 09:47
PROVIDERS: ATTEND Internal Medicine Infectious Disease
DX: A49.1 Streptococcal infection, unspecified site (principal)

== ENCOUNTER → 2016-07-02 | Outpatient (CLI) | payer MEDICARE, OTHER ==
--- NOTE | 2016-07-02 17:00 | REP ---
PICC LINE INSERTION WITH SITE-RITE: The procedure was performed under the direct supervision of Dr. Donaldson. The risks and benefits of the procedure were explained to the patient and informed consent was obtained. The right basilic vein was localized using ultrasound guidance. The skin was prepped and draped in a sterile fashion. 2% Lidocaine was used as a local anesthetic. Using ultrasound guidance the basilic vein was cannulated and a 0.018 guidewire was inserted and then advanced to the SVC using fluoroscopic guidance. The needle was removed and a 4.5-[place] dilator and peel-away sheath was inserted over the guidewire. A 4.5-[place]ank[place] single lumen catheter was cut to a length of 45 cm. The dilator was removed and the catheter was inserted over the guidewire with the tip ending in the SVC. The peel-away sheath was removed and the catheter with flushed with heparinized saline as per hospital protocol. The catheter was affixed to the skin and a sterile dressing was applied. The patient tolerated the procedure well and there were no immediate complications. 0.2 minutes of fluoroscopic time was utilized for this procedure. Reviewed by OZZY Quesada 07/03/2016 10:09 AEdited and Signed by Arnie Donaldson MD 07/03/2016 10:42 A
== END ==
LOC: M RADPRO 08:15
PROVIDERS: ATTEND Internal Medicine Infectious Disease
DX: A49.1 Streptococcal infection, unspecified site (principal)
CPT/HCPCS: 36569; 76937; 96365; J3370

== ENCOUNTER → 2016-07-08 | Outpatient (REF) | payer MEDICARE, OTHER ==
[~2016-07-08] MED LIST changes: -SODIUM CHLORIDE 0.9% INJ 10 ML SYR IV PRN
[2016-07-08 12:39] LABS: BASO # 0.1 K/mm3 (0.0-0.2); BASO % 0.4 % (0.0-1.0); EOS # 0.1 K/mm3 (0.0-0.50); EOS % 0.8 % (0.0-3.0); LARGE UNSTAINED CELL # 0.2 K/mm3 (0.0-0.4); LARGE UNSTAINED CELL % 1.5 % (0.0-4.0); LYMPH # 1.8 K/mm3 (1.5-4.5); LYMPH % 12.9 % (24.0-44.0); MEAN CORPUSCULAR HEMOGLOBIN 31.5 pg (27.0-33.0); MEAN CORPUSCULAR HGB CONC 32.7 g/dl (32.0-36.5); MEAN CORPUSCULAR VOLUME 96.3 fl (80.0-96.0); MONO # 0.5 K/mm3 (0.0-0.8); MONO % 3.5 % (0.0-5.0); NEUTROPHILS # 11.1 K/mm3 (1.8-7.7); NEUTROPHILS % 80.9 % (36.0-66.0); PLATELET COUNT, AUTOMATED 396 k/mm3 (150-450); RED CELL DISTRIBUTION WIDTH 12.9 % (11.5-14.5); WHITE BLOOD COUNT 13.7 K/mm3 (4.0-10.0)
[2016-07-08 13:11] LABS: ANION GAP 9 MEQ/L (8-16); BLOOD UREA NITROGEN 17 MG/DL (7-18); CALCIUM LEVEL 9.2 MG/DL (8.8-10.2); CARBON DIOXIDE LEVEL 31 MEQ/L (21-32); CHLORIDE LEVEL 102 MEQ/L (98-107); CREATININE FOR GFR 0.85 MG/DL (0.70-1.30); GLOMERULAR FILTRATION RATE > 60.0 (>49); GLUCOSE, FASTING 96 MG/DL (80-110); POTASSIUM SERUM 4.3 MEQ/L (3.5-5.1); SODIUM LEVEL 142 MEQ/L (136-145)
== END ==
LOC: M SHH 12:16
PROVIDERS: ATTEND Internal Medicine Infectious Disease
DX: A49.1 Streptococcal infection, unspecified site (principal)

== ENCOUNTER → 2016-07-09 | Outpatient (REF) | payer MEDICARE, OTHER | LOC: M SFHCPLAZ 13:56 | PROVIDERS: ATTEND Internal Medicine Infectious Disease | DX: A49.1 Streptococcal infection, unspecified site (principal) | CPT/HCPCS: 87070; 87077; 87185; 87205; G0463 ==

== ENCOUNTER 2016-07-10 08:24 | Outpatient (CLI) | payer MEDICARE, OTHER ==
[~2016-07-10] VITALS: Ht 172.7 cm; Wt 74.5 kg
[~2016-07-10 08:24] MED LIST changes: +SODIUM CHLORIDE 0.9% INJ 10 ML SYR IV SCH
[2016-07-10] MEDS ORDERED: SODIUM CHLORIDE 0.9% INJ 10 ML SYR IV PRN (08:45)
[2016-07-10] MEDS ORDERED: CEFTAROLINE FOSAMIL 600 MG in D5W MINI-BAG PLUS 50 ML IV ONE (09:00)
== END 2016-07-10 10:00 | disposition home or self-care (01) ==
LOC: M INFU 08:24
PROVIDERS: ATTEND Internal Medicine Infectious Disease
DX: A49.1 Streptococcal infection, unspecified site (principal)

== ENCOUNTER → 2016-07-15 | Outpatient (REF) | payer MEDICARE, OTHER ==
[~2016-07-15] MED LIST changes: -SODIUM CHLORIDE 0.9% INJ 10 ML SYR IV SCH
[2016-07-15 21:45] LABS: MEAN CORPUSCULAR HEMOGLOBIN 32.6 pg (27.0-33.0); MEAN CORPUSCULAR HGB CONC 33.4 g/dl (32.0-36.5); MEAN CORPUSCULAR VOLUME 97.8 fl (80.0-96.0); WHITE BLOOD COUNT 10.2 K/mm3 (4.0-10.0)
== END ==
LOC: M LAB REF 21:03
PROVIDERS: ATTEND Internal Medicine Infectious Disease
DX: N18.6 End stage renal disease (principal)

== ENCOUNTER → 2016-07-22 | Outpatient (REF) | payer MEDICARE, OTHER ==
[2016-07-22 15:07] LABS: MEAN CORPUSCULAR HEMOGLOBIN 32.8 pg (27.0-33.0); MEAN CORPUSCULAR HGB CONC 33.7 g/dl (32.0-36.5); MEAN CORPUSCULAR VOLUME 97.1 fl (80.0-96.0); RED CELL DISTRIBUTION WIDTH 13.3 % (11.5-14.5); WHITE BLOOD COUNT 12.2 K/mm3 (4.0-10.0)
== END ==
LOC: M SHH 14:30
PROVIDERS: ATTEND Internal Medicine Infectious Disease
DX: D83.9 Common variable immunodeficiency, unspecified (principal)

== ENCOUNTER → 2016-07-23 | Outpatient (REF) | payer MEDICARE, OTHER | LOC: M LAB REF 13:07 | PROVIDERS: ATTEND Internal Medicine Pulmonary Disease | DX: J44.9 Chronic obstructive pulmonary disease, unspecified (principal) ==

== ENCOUNTER → 2016-07-29 | Outpatient (REF) | payer MEDICARE, OTHER ==
[2016-07-29 15:36] LABS: RED CELL DISTRIBUTION WIDTH 13.1 % (11.5-14.5); WHITE BLOOD COUNT 10.6 K/mm3 (4.0-10.0)
== END ==
LOC: M SHH 15:21 → M LAB REF 15:21
PROVIDERS: ATTEND Internal Medicine Infectious Disease
DX: N18.6 End stage renal disease (principal)

== ENCOUNTER → 2016-07-31 | Outpatient (REF) | payer MEDICARE, OTHER | LOC: M LAB REF 13:03 | PROVIDERS: ATTEND Internal Medicine Pulmonary Disease | DX: J44.9 Chronic obstructive pulmonary disease, unspecified (principal) ==

== ENCOUNTER → 2016-08-26 | Outpatient (REF) | payer MEDICARE, OTHER | LOC: M SFHCPLAZ 15:33 | PROVIDERS: ATTEND Internal Medicine Infectious Disease | DX: J44.1 Chronic obstructive pulmonary disease with (acute) exacerbation (principal) ==

== ENCOUNTER → 2016-09-15 | Outpatient (REF) | payer MEDICARE, OTHER | LOC: M SFHCPLAZ 08:32 | PROVIDERS: ATTEND Internal Medicine Infectious Disease | DX: J44.9 Chronic obstructive pulmonary disease, unspecified (principal) ==

== ENCOUNTER → 2017-01-04 | Outpatient (CLI) | payer MEDICARE, OTHER ==
[~2017-01-04] MED LIST changes: -AVEL1TAB PO; +AVEL1TAB3 PO; +AZIT-12 PO; -AZIT250T3 PO; +AZIT500T2 PO; +BACITAB PO; -BACITAB3 PO; +BACT800T5 PO; +CEFD1CAP8 PO; -FOLI1TAB2 PO; +FOLI1TAB4 PO; +GUAI400T6 PO; -LEVA750T PO; +LEVA750T7 PO; +LOPE2CAP PO; -LOPE2TAB PO; +LOPE2TAB3 PO; +LOPE2TAB5 PO; -MAGN250T2 PO; +MAGN250T7 PO; +METH125VL IM; +MUCI600T37 PO; +PLAV1TAB2 PO; -PLAV75TA38 PO; -SKEL-29 PO; +SKEL800T97 PO; +TUSS1CAP5 PO; +TUSSSUS6 PO; +[UNRECOGNIZED DRUG - CODE] PO; +omnicef PO
[2017-01-04 13:40] LABS: ANION GAP 12 MEQ/L (8-16); BLOOD UREA NITROGEN 13 MG/DL (7-18); CALCIUM LEVEL 9.4 MG/DL (8.8-10.2); CARBON DIOXIDE LEVEL 25 MEQ/L (21-32); CHLORIDE LEVEL 104 MEQ/L (98-107); CREATININE FOR GFR 1.24 MG/DL (0.70-1.30); GLOMERULAR FILTRATION RATE > 60.0 (>49); GLUCOSE, FASTING 138 MG/DL (80-110); POTASSIUM SERUM 4.5 MEQ/L (3.5-5.1); SODIUM LEVEL 141 MEQ/L (136-145)
== END ==
LOC: M SMT 08:04
PROVIDERS: ATTEND Physician Assistant
DX: R60.0 Localized edema (principal); R06.02 Shortness of breath

== ENCOUNTER 2017-02-05 08:54 | Inpatient (IN) | payer MEDICARE, OTHER ==
[~2017-02-05] VITALS: Ht 172.7 cm; Wt 84.2 kg
[~2017-02-05 08:54] MED LIST changes: -AZIT500T2 PO; -BACT800T5 PO; -CEFD1CAP8 PO; -GUAI400T6 PO; -LOPE2TAB3 PO; -LOPE2TAB5 PO; -METH125VL IM; -TUSS1CAP5 PO; -TUSSSUS6 PO; -[UNRECOGNIZED DRUG - CODE] PO; -omnicef PO
[2017-02-05] MEDS ORDERED: LOPE2TAB5 PO (09:16)
[2017-02-05] MEDS ORDERED: AZIT500T2 PO (09:16)
[2017-02-05] MEDS ORDERED: [UNRECOGNIZED DRUG - CODE] PO (09:16)
[2017-02-05] MEDS ORDERED: DALI1TAB2 PO (09:16)
[2017-02-05] MEDS ORDERED: LOPE2CAP PO (09:16)
[2017-02-05] MEDS ORDERED: BACT800T5 PO (09:16)
[2017-02-05] MEDS ORDERED: omnicef PO (09:16)
--- NOTE | 2017-02-05 09:49 | ECGEPIP ---
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
[2017-02-05] MEDS ORDERED: methylPREDNISolone INJ 125 MG/2 ML VIAL (J2930) IV ONE (10:00)
[2017-02-05] MEDS: IPRATROPIUM 0.5MG/ALBUTEROL 2.5MG INH SOL UD 3ML (DUONEB)(J7620) NEB PRN ×3 (10:18→10:42)
[2017-02-05 10:24] LABS: ABG BASE EXCESS 3.2 (-2.0-2.0); ABG HCO3 27.1 MEQ/L (22.0-26.0); ABG PARTIAL PRESSURE CO2 39.1 mmHg (35.0-45.0); ABG PARTIAL PRESSURE O2 74.8 mmHg (75.0-100.0); ABG STANDARD HCO3 27.3 MEQ/L (22.0-26.0); ABG TOTAL CO2 28.3 MEQ/L (23.0-31.0); ABG pH (ARTERIAL) 7.459 UNITS (7.350-7.450)
[2017-02-05 10:29] LABS: BASO % 0.3 % (0.0-1.0); EOS # 0.1 K/mm3 (0.0-0.50); EOS % 0.5 % (0.0-3.0); LARGE UNSTAINED CELL # 0.2 K/mm3 (0.0-0.4); LARGE UNSTAINED CELL % 1.1 % (0.0-4.0); LYMPH # 2.2 K/mm3 (1.5-4.5); LYMPH % 14.3 % (24.0-44.0); MEAN CORPUSCULAR HGB CONC 34.1 g/dl (32.0-36.5); MEAN CORPUSCULAR VOLUME 96.7 fl (80.0-96.0); MONO # 0.7 K/mm3 (0.0-0.8); MONO % 5.1 % (0.0-5.0); NEUTROPHILS # 11.4 K/mm3 (1.8-7.7); NEUTROPHILS % 78.8 % (36.0-66.0); PLATELET COUNT, AUTOMATED 283 k/mm3 (150-450); RED CELL DISTRIBUTION WIDTH 12.4 % (11.5-14.5); WHITE BLOOD COUNT 14.5 K/mm3 (4.0-10.0)
[2017-02-05 10:39] LABS: ANION GAP 8 MEQ/L (8-16); BLOOD UREA NITROGEN 23 MG/DL (7-18); CALCIUM LEVEL 9.4 MG/DL (8.8-10.2); CARBON DIOXIDE LEVEL 28 MEQ/L (21-32); CHLORIDE LEVEL 103 MEQ/L (98-107); CREATININE FOR GFR 0.89 MG/DL (0.70-1.30); GLOMERULAR FILTRATION RATE > 60.0 (>49); GLUCOSE, FASTING 185 MG/DL (80-110); POTASSIUM SERUM 3.8 MEQ/L (3.5-5.1); SODIUM LEVEL 139 MEQ/L (136-145)
[2017-02-05] MEDS ORDERED: GUAI400T6 PO (10:57)
[2017-02-05] MEDS ORDERED: IPRA2IN INH (10:57)
[2017-02-05] MEDS ORDERED: METH125VL IM (10:57)
[2017-02-05] MEDS ORDERED: CEFD1CAP8 PO (10:57)
[2017-02-05] MEDS ORDERED: PRED20TA PO (10:57)
[2017-02-05] MEDS ORDERED: ALBU83IN INH (10:57)
[2017-02-05] MEDS ORDERED: LOPE2TAB3 PO (10:57)
[2017-02-05] MEDS ORDERED: IPRATROPIUM 0.5MG/ALBUTEROL 2.5MG INH SOL UD 3ML (DUONEB)(J7620) NEB PRN (13:15)
[2017-02-05] MEDS ORDERED: ACETAMINOPHEN TAB 650MG DOSE (2X325MG) PO PRN (13:30)
[2017-02-05] MEDS ORDERED: ONDANSETRON 4MG/2ML VIAL (J2405) IV PRN (13:30)
[2017-02-05] MEDS: IPRATROPIUM 0.5MG/ALBUTEROL 2.5MG INH SOL UD 3ML (DUONEB)(J7620) NEB SCH ×2 (13:49→20:00)
--- NOTE | 2017-02-05 14:14 | CCN ---
DATE: 02/05/2017 PULMONARY CRITICAL CARE SERVICE I was called to see this patient in the emergency department. A 66-year-old male with severe dyspnea. He is known to our service. He has a advanced obstructive lung disease related to a 30 pack-year smoking history and severe reactive component. His symptoms have been increasing over the past 5-6 days with dyspnea, dry cough. He was exposed to some cement dust prior to this occasion, but recalls no ill contacts. He has no chest pain. Has had no hemoptysis. He has been using his nebulizers six times a day and receiving IV Solu-Medrol on an outpatient basis. There is a significant past history of advanced obstructive airways disease with an FEV-1 of 1.4 (32% predicted) and FEV-1 of 0.93 (28% predicted). He has a 30 pack-year smoking history in the past. He also has a history of coronary artery disease post stent. He had an aortic valve replaced and has immune deficiency, for which he receives immunoglobulins and rotating antibiotics. At bedside he is dyspneic, able to speak. His temperature is 97, pulse rate is 99, respirations 18, blood pressure 135/97. He is cushingoid in appearance. Oral mucosa is pink. Neck is supple without adenopathy. The jugular veins are not distended. Carotid upstroke sluggish without bruit. Heart sounds are regular with a systolic murmur. Breath sounds diffuse fine expiratory wheezes bilaterally and depressed lung sounds in the bases. Chest is hyperinflated. Hyperresonance percussion. Abdomen is soft with intact bowel sounds. Extremities show trace edema. DIAGNOSTIC STUDIES: Chest x-ray shows some scarring in the right side. A CT scan has been ordered. White cell count is 14, hemoglobin 14, hematocrit 42, platelet count 283,000. Differential, white cell count shows 78% neutrophils. Sodium is 139, potassium 3.8, chloride 103, CO2 28, BUN 33, creatinine 0.89, glucose 185. Arterial blood gases show pH 7.45, pCO2 39, pO2 74. The primary problem requiring critical attention is status asthmaticus. I agree with the use of IV steroids and nebulized therapy. We will change delivery device to Heliox with 70/30 helium and reevaluate. Admission for close monitoring is appropriate. 76 minutes was spent in provision of bedside critical care coordination in exclusion of procedure time.
[2017-02-05 14:38] LABS: ERYTHROCYTE SEDIMENTATION RATE 8 mm/hr (0-20)
--- NOTE | 2017-02-05 14:45 | REP ---
Chest one-view HISTORY: Dyspnea Comparison: 09/25/2016 There is elevation of the right hemidiaphragm. Linear densities are present in the lower lobes consistent with scarring. The heart is normal in size. The pulmonary vasculature is normal in appearance. Impression: Bibasilar scarring. Signed by Wei Parker MD 02/05/2017 10:09 A
--- NOTE | 2017-02-05 14:54 | REP ---
Clinical: Cough and dyspnea. Technique: Axial noncontrast images from the thoracic inlet to the upper abdomen with coronal and sagittal re-formations. Comparison: 06/11/2016. Findings: Lung rodriguez demonstrate moderate to advanced COPD and emphysematous changes including biapical scarring and bilateral mid to lower lobe chronic fibro atelectatic changes. No acute consolidation, nodule or mass lesion appreciated. No pleural effusion/reaction or pneumothorax. Again bronchial tree is patent. Atherosclerotic changes to the thoracic aorta and coronary arteries noted. No cardiomegaly or pericardial effusion. Musculoskeletal structures demonstrate age-related osteopenia and degenerative change. Impression: 1. Moderate to early advanced chronic COPD and emphysematous changes along with biapical scarring and bilateral fibro atelectatic changes. 2. No acute mediastinal or pleuroparenchymal process. Signed by Gilberto Hudson MD 02/05/2017 02:22 P
[2017-02-05 15:30] VITALS: BP 115/73
[2017-02-05] MEDS: methylPREDNISolone INJ 125 MG/2 ML VIAL (J2930) IV SCH (17:59)
[2017-02-05] MEDS: BACTRIM 160MG/800MG DS TAB PO SCH (18:57)
[2017-02-05 19:29] VITALS: BP 122/73
[2017-02-05] MEDS: BUDESONIDE 0.5 MG/2 ML INHALATION SUSPENSION INH SCH (19:40)
[2017-02-05] MEDS: FORMOTEROL FUMARATE 20 MCG/2 ML INHALATION SOLUTION (PERFOROMIST) INH SCH (19:40)
[2017-02-05] MEDS: CitaloPRAM (CeleXA) 20 MG TAB PO SCH (22:24)
[2017-02-05] MEDS: FERROUS SULFATE 325MG TAB PO SCH (22:24)
[2017-02-05] MEDS: guaiFENesin ER 600 MG TAB PO SCH (22:24)
[2017-02-05] MEDS: LACTOBACILLUS ACIDOPHILUS CAP (BACID) PO SCH (22:24)
[2017-02-05] MEDS: CLOPIDOGREL 75 MG TAB PO SCH (22:25)
[2017-02-05] MEDS: HEPARIN SOD (PORCINE) 5000 UNITS/ML VIAL SC SCH (22:25)
[2017-02-05] MEDS: CEFDINIR 300 MG CAP (OMNICEF) PO SCH (22:25)
[2017-02-05] MEDS: FAMOTIDINE 20 MG TAB PO SCH (22:26)
--- NOTE | 2017-02-06 00:11 | HPE ---
DATE OF ADMISSION: 02/05/2017 PRIMARY CARE PROVIDER: Blaze Ruano. BUTTON ATTACHING MACHINE OPERATOR: Dr. Kline, covered by Dr. Pedroza INFECTIOUS DISEASE: Dr. Davis. CUSTODIAL OPERATIONS MANAGER: Dr. Elizondo CHIEF COMPLAINT: Shortness of breath and chest tightness. HISTORY OF THE PRESENT ILLNESS: This is a 66-year-old male patient with underlying medical history of chronic obstructive pulmonary disease (COPD) - on oxygen at home, 2 to 4 liters, autoimmune deficiency with variable immune deficiency, receiving transfusion weekly, immunoglobulin, as well as coronary artery disease with stent placement, obstructive sleep apnea, recurrent pneumonia, hyperglycemia secondary to steroid use, common variable immunodeficiency, chronically elevated lactic acid secondary to albuterol use. Also, anxiety, vitamin D deficiency, iron deficiency anemia, dyslipidemia, aortic valve disease status post bioprosthetic valve replacement. Furthermore, patient is chronically on suppression antibiotics for prophylaxis. He presented with since yesterday shortness of breath, chest tightness for 2 days with cough that is nonproductive. Denies any fevers, chills, palpitations. Unable to cough up any mucus. As per patient, he has been getting steroid injections by primary care provider for the past week or so, initially with mild improvement since Wednesday, but over the weekend, the patient's symptoms got worse and subsequently, during the week, the patient has not improved with steroid injection of Solu-Medrol. Furthermore, the patient had sick contact with granddaughter who had upper respiratory infection (URI) versus allergy symptoms. Denies any recent travel. ALLERGIES: To ASPIRIN, FEXOFENADINE, LEVOFLOXACIN, PENICILLIN, QUININE. PAST MEDICAL HISTORY: Severe COPD, on 2 to 4 liters of oxygen at home. Variable immunodeficiency. Coronary artery disease with stent. Aortic valve disease with bioprosthetic valve. Obstructive sleep apnea, on continuous positive airway pressure (CPAP) at night. History of pneumothorax. History of diverticulitis. History of dyslipidemia. History of borderline diabetes. History of cataract disease. History of osteoarthritis and back problem. Oral thrush. Bullous emphysema. Bronchiectasis. PAST SURGICAL HISTORY: Cardiac stent. Laminectomy. Aortic valve replacement with bioprosthetic valve. SOCIAL HISTORY: Lives at home with . Denies any smoking, recreational drugs. Quit smoking 7 years ago, [id number] smoke history. No alcohol use. FAMILY HISTORY: Grandfather with colon cancer. Father with heart disease. REVIEW OF SYSTEMS: Reported shortness of breath, chest tightness, wheezing, coughing, nonproductive. All other review of systems are negative. HOME MEDICATIONS: - albuterol 2.5 mg inhalation three times a day - vitamin C 1000 mg by mouth daily - azithromycin 100 mg by mouth daily - vitamin B complex one tablet by mouth daily - Pulmicort inhalation twice a day - calcium citrate 1000 mg by mouth twice a day - cefdinir 300 mg by mouth twice a day - citalopram 20 mg by mouth nightly - Plavix 75 mg by mouth nightly - ferrous sulfate 325 mg by mouth twice a day - fluconazole 200 mg by mouth weekly - folic acid 1 mg by mouth daily - formoterol inhalation twice a day - Mucinex 1200 mg by mouth twice a day - Hizentra weekly - ipratropium inhalation three times a day nebulized - probiotics by mouth daily - loperamide 4 mg by mouth nightly and 2 mg by mouth every morning - Solu-Medrol 125 mg injection daily - metoprolol 50 mg by mouth daily - nitroglycerin sublingual 0.4 as needed - omeprazole 40 mg by mouth daily - Livalo 2 mg by mouth nightly - prednisone 20 mg by mouth daily - ranitidine one tablet by mouth nightly - Daliresp 500 mcg by mouth daily - Bactrim double strength 800/160 by mouth three times a day - Tudorza inhalation twice a day PHYSICAL EXAMINATION: VITAL SIGNS: Temperature 99, pulse 109, respirations 21, blood pressure 115/73, pulse oximetry 95% on 2 liters. GENERAL: Patient alert and oriented times three, in no acute distress. HEENT: Normocephalic, atraumatic. PULMONARY: Bilateral expiratory wheeze. No rhonchi. CARDIAC: Mild tachycardia, regular, S1, S2. ABDOMEN: Soft, nontender. Positive bowel sounds. EXTREMITIES: No clubbing, cyanosis or edema. LABORATORY: WBC 14.5, hemoglobin and hematocrit 14.3 over 41.9, platelets 283. Chemistry: Sodium 139, potassium 3.8, chloride 103, bicarbonate 28, BUN 23, creatinine 0.89, C-reactive protein negative, lactic acid 1.7, cardiac enzymes negative times two. EKG: Sinus rhythm. No ST segment changes. ASSESSMENT AND PLAN: This is a 66-year-old male patient with underlying medical history of severe chronic obstructive pulmonary disease, variable immunodeficiency, coronary artery disease with stent, obstructive sleep apnea, recurrent pneumonia, hyperglycemia, vitamin D deficiency, iron deficiency anemia, dyslipidemia, aortic valve disease with bioprosthetic valve replacement, admitted for acute COPD exacerbation. PROBLEMS: 1. Acute COPD exacerbation. Nebulizer treatment. Solu-Medrol IV. Taper as tolerated. Continue Pulmicort, formoterol. Continue home medication. Aerospace Engineer, Dr. Pedroza, has been consulted. 2. Variable immune deficiency. Continue suppressive antibiotics as ordered. Case was discussed with Dr. Davis. C-reactive protein has been negative. 3. Coronary artery disease. Continue Plavix, beta jenny. 4. History of aortic valve disease with bioprosthetic valve. Supportive care. Outpatient followup. 5. Sleep apnea. Encourage continuous positive airway pressure (CPAP) at night. Monitor oxygen saturations. 6. Chronic hypoxia. Oxygen supplementation. 7. Dyslipidemia. Continue statin. 8. Diabetes. Secondary to steroids, chronic steroid use. Insulin as per protocol. 9. History of oral thrush. Continue current medications. Will continue to monitor. 10. Gastroesophageal reflux disease (GERD). Continue proton pump inhibitor (PPI). 11. Deep vein thrombosis (DVT) prophylaxis. Heparin subcutaneously. DISPOSITION PLANNING Pending cardiology consultation, clinical improvement.
[2017-02-06 00:28] VITALS: BP 123/85
[2017-02-06] MEDS: methylPREDNISolone INJ 125 MG/2 ML VIAL (J2930) IV SCH ×3 (01:20→17:52)
[2017-02-06 04:26] VITALS: BP 145/81
[2017-02-06] MEDS: IPRATROPIUM 0.5MG/ALBUTEROL 2.5MG INH SOL UD 3ML (DUONEB)(J7620) NEB SCH ×4 (04:34→20:00)
[2017-02-06 04:37] LABS: MEAN CORPUSCULAR HGB CONC 34.6 g/dl (32.0-36.5); MEAN CORPUSCULAR VOLUME 95.3 fl (80.0-96.0); RED CELL DISTRIBUTION WIDTH 12.3 % (11.5-14.5); WHITE BLOOD COUNT 14.5 K/mm3 (4.0-10.0)
[2017-02-06 05:00] LABS: ALBUMIN 3.3 GM/DL (3.2-5.2); ALBUMIN/GLOBULIN RATIO 0.87 (1.00-1.93); ALKALINE PHOSPHATASE 66 U/L (45-117); ALT/SGPT 44 U/L (12-78); ANION GAP 9 MEQ/L (8-16); AST/SGOT 15 U/L (15-37); BILIRUBIN,TOTAL 0.3 MG/DL (0.2-1.0); BLOOD UREA NITROGEN 22 MG/DL (7-18); CALCIUM LEVEL 8.6 MG/DL (8.8-10.2); CARBON DIOXIDE LEVEL 28 MEQ/L (21-32); CHLORIDE LEVEL 100 MEQ/L (98-107); CREATININE FOR GFR 1.04 MG/DL (0.70-1.30); GLOMERULAR FILTRATION RATE > 60.0 (>49); GLUCOSE, FASTING 177 MG/DL (80-110); MAGNESIUM LEVEL 2.2 MG/DL (1.8-2.4); SODIUM LEVEL 137 MEQ/L (136-145); TOTAL PROTEIN 7.1 GM/DL (6.4-8.2)
[2017-02-06 05:31] LABS: POTASSIUM SERUM 4.8 MEQ/L (3.5-5.1)
[2017-02-06] MEDS: HEPARIN SOD (PORCINE) 5000 UNITS/ML VIAL SC SCH ×3 (06:00→20:31)
[2017-02-06 08:00] VITALS: BP 114/90
[2017-02-06] MEDS: FORMOTEROL FUMARATE 20 MCG/2 ML INHALATION SOLUTION (PERFOROMIST) INH SCH ×2 (08:14→19:38)
[2017-02-06] MEDS: BUDESONIDE 0.5 MG/2 ML INHALATION SUSPENSION INH SCH ×2 (08:14→19:38)
[2017-02-06] MEDS: AZITHROMYCIN 250 MG TAB PO SCH (09:00)
[2017-02-06] MEDS: LOPERAMIDE 2 MG CAP PO SCH (09:03)
[2017-02-06] MEDS: FERROUS SULFATE 325MG TAB PO SCH ×2 (09:03→20:29)
[2017-02-06] MEDS: METOPROLOL SUCC (TopROL XL) 50MG **XL** TAB PO SCH (09:04)
[2017-02-06] MEDS: OMEPRAZOLE 20 MG CAP PO SCH (09:04)
[2017-02-06] MEDS: VITAMIN B COMPLEX/VIT C CAP PO SCH (09:04)
[2017-02-06] MEDS: CEFDINIR 300 MG CAP (OMNICEF) PO SCH ×2 (09:04→20:29)
[2017-02-06] MEDS: LACTOBACILLUS ACIDOPHILUS CAP (BACID) PO SCH ×2 (09:05→20:28)
[2017-02-06] MEDS: FOLIC ACID 1 MG TAB PO SCH (09:06)
[2017-02-06] MEDS: ASCORBIC ACID 500 MG TAB PO SCH (09:06)
[2017-02-06] MEDS: guaiFENesin ER 600 MG TAB PO SCH ×2 (09:06→20:29)
[2017-02-06 12:00] VITALS: BP 132/89
--- NOTE | 2017-02-06 15:19 | IPN ---
DATE: 02/06/2017 This morning, he is still short of breath but has been helped by his treatments. H does feel back to his baseline. Temperature 98.1, pulse 102, respiratory rate 20, blood pressure 114/89, 93% on 2 liters. Input and output notable for negative fluid balance of -170. Body mass index 27.8. He is awake, appropriately interactive. Breathing is symmetrical. Speaking in short sentences. No accessory muscle use. I/E ratio is 1:5. Diminished throughout with scattered polyphonic wheezes. Heart sounds are normal S1, S2. Abdomen soft, doughy, nontender. No significant lower extremity edema. White count 14.5, hemoglobin 14, platelets 272. BUN 22, creatinine 1.04. Respiratory panel is negative. ASSESSMENT: This is a 66-year-old with severe obstructive pulmonary disease, variable immunodeficiency, coronary artery disease with stent, obstructive sleep apnea, recurrent pneumonia, hyperglycemia, vital D deficiency, iron deficiency, dyslipidemia, aortic valve disease with bioprosthetic replacement admitted for acute COPD exacerbation. PLAN: 1. The patient has acute COPD exacerbation: I discussed this case in person with Dr. Pedroza. He has received treatment with inhaled helium, Solu-Medrol, Pulmicort. Greatly appreciative for Dr. Pedroza's input. 2. The patient has variable immunodeficiency. Continue with suppressive antibiotics as previously ordered. 3. The patient has coronary artery disease. 4. The patient has aortic valve disease, status post bioprosthetic valve. 5. The patient has obstructive sleep apnea with CPAP at night. 6. The patient has chronic hypoxia. 7. The patient has diabetes: Giving insulin as needed. 8. The patient has a history of gastroesophageal reflux disease. 9. Deep venous thrombosis (DVT) prophylaxis: Heparin.
[2017-02-06 16:00] VITALS: BP 125/79
[2017-02-06 19:34] VITALS: BP 134/79
[2017-02-06] MEDS: CitaloPRAM (CeleXA) 20 MG TAB PO SCH (20:29)
[2017-02-06] MEDS: CLOPIDOGREL 75 MG TAB PO SCH (20:30)
[2017-02-06] MEDS: FAMOTIDINE 20 MG TAB PO SCH (20:30)
[2017-02-07] MEDS: IPRATROPIUM 0.5MG/ALBUTEROL 2.5MG INH SOL UD 3ML (DUONEB)(J7620) NEB SCH ×2 (00:30→08:00)
[2017-02-07] MEDS: methylPREDNISolone INJ 125 MG/2 ML VIAL (J2930) IV SCH ×3 (02:24→17:23)
[2017-02-07 04:00] VITALS: BP 123/80
[2017-02-07 04:31] LABS: MEAN CORPUSCULAR HEMOGLOBIN 33.4 pg (27.0-33.0); MEAN CORPUSCULAR VOLUME 95.4 fl (80.0-96.0); RED CELL DISTRIBUTION WIDTH 12.3 % (11.5-14.5); WHITE BLOOD COUNT 14.2 K/mm3 (4.0-10.0)
[2017-02-07 04:56] LABS: ALBUMIN 3.4 GM/DL (3.2-5.2); ALBUMIN/GLOBULIN RATIO 1.06 (1.00-1.93); ALKALINE PHOSPHATASE 64 U/L (45-117); ALT/SGPT 43 U/L (12-78); ANION GAP 11 MEQ/L (8-16); AST/SGOT 12 U/L (15-37); BILIRUBIN,TOTAL 0.3 MG/DL (0.2-1.0); BLOOD UREA NITROGEN 22 MG/DL (7-18); CALCIUM LEVEL 9.1 MG/DL (8.8-10.2); CARBON DIOXIDE LEVEL 26 MEQ/L (21-32); CHLORIDE LEVEL 100 MEQ/L (98-107); CREATININE FOR GFR 1.02 MG/DL (0.70-1.30); GLOMERULAR FILTRATION RATE > 60.0 (>49); GLUCOSE, FASTING 201 MG/DL (80-110); MAGNESIUM LEVEL 2.7 MG/DL (1.8-2.4); POTASSIUM SERUM 4.6 MEQ/L (3.5-5.1); SODIUM LEVEL 137 MEQ/L (136-145); TOTAL PROTEIN 6.6 GM/DL (6.4-8.2)
[2017-02-07] MEDS: HEPARIN SOD (PORCINE) 5000 UNITS/ML VIAL SC SCH ×3 (06:24→21:13)
[2017-02-07 08:00] VITALS: BP 138/80
[2017-02-07] MEDS: BUDESONIDE 0.5 MG/2 ML INHALATION SUSPENSION INH SCH ×2 (08:00→19:43)
[2017-02-07] MEDS: FORMOTEROL FUMARATE 20 MCG/2 ML INHALATION SOLUTION (PERFOROMIST) INH SCH ×2 (08:05→19:43)
[2017-02-07] MEDS: CEFDINIR 300 MG CAP (OMNICEF) PO SCH ×2 (08:35→21:13)
[2017-02-07] MEDS: LACTOBACILLUS ACIDOPHILUS CAP (BACID) PO SCH ×2 (08:35→21:13)
[2017-02-07] MEDS: VITAMIN B COMPLEX/VIT C CAP PO SCH (08:35)
[2017-02-07] MEDS: OMEPRAZOLE 20 MG CAP PO SCH (08:36)
[2017-02-07] MEDS: FERROUS SULFATE 325MG TAB PO SCH ×2 (08:37→21:13)
[2017-02-07] MEDS: guaiFENesin ER 600 MG TAB PO SCH ×2 (08:37→21:13)
[2017-02-07] MEDS: ASCORBIC ACID 500 MG TAB PO SCH (08:37)
[2017-02-07] MEDS: METOPROLOL SUCC (TopROL XL) 50MG **XL** TAB PO SCH (08:37)
[2017-02-07] MEDS: LOPERAMIDE 2 MG CAP PO SCH (08:37)
[2017-02-07] MEDS: AZITHROMYCIN 250 MG TAB PO SCH (08:38)
[2017-02-07] MEDS: FOLIC ACID 1 MG TAB PO SCH (08:38)
[2017-02-07] MEDS ORDERED: ALBUTEROL SULFATE 2.5 MG/0.5 ML INH NEB SOLN INH PRN (08:45)
[2017-02-07 12:00] VITALS: BP 161/95
--- NOTE | 2017-02-07 12:27 | IPN ---
DATE: 02/07/2017 Mr. Velasquez says he is feeling about the same as he did yesterday. He has no complaints of pain and is still somewhat short of breath. He is coughing, but feels he does not have anything to produce. He has not yet given a sputum sample. Temperature 97.6, pulse 94, respiratory rate 22, blood pressure 138/80, and 92% on 2 liters. Negative fluid balance of -1690. Body mass index 26.1. He is awake and appropriately interactive, pleasantly conversant, asking good questions. Mucous membranes moist. Round facies. Neck thick. Breathing symmetrically diminished, but similar aeration to yesterday without significant wheezing. I was able to examine him during the course of receiving a nebulizer treatment. Heart is regular. The patient is off telemetry. Radial pulses 2+. Abdomen is somewhat distended, soft, nontender. White cell count 14.2, hemoglobin 14.3 and platelets 278. BUN 22, creatinine 1.02. Blood cultures are negative at 48 hours. ASSESSMENT: 66-year-old with severe obstructive pulmonary disease and very low immunodeficiency, coronary artery disease with stent, obstructive sleep apnea, recurrent pneumonia, hyperglycemia, vitamin D deficiency, iron deficiency, dyslipidemia, and aortic valve disease with bioprosthetic replacement admitted for acute chronic obstructive pulmonary disease (COPD) exacerbation. PLAN: 1. Respiratory. The patient continues with relatively aggressive treatment for acute COPD. He is on Heliox with treatments. He continues with Solu-Medrol and Pulmicort and is continuing some of his own home medications. 2. The patient has very low immunodeficiency. Continue with suppressive antibiotics and luckily blood cultures are negative at this point. 3. The patient has coronary artery disease. 4. The patient has aortic valve disease status post bioprosthetic valve. 5. The patient has obstructive sleep apnea (MYKEL) and is using his own CPAP at night, which is at bedside. 6. The patient has chronic hypoxia. 7. The patient has diabetes, currently on insulin. 8. The patient has gastroesophageal reflux disease (GERD). 9. The patient has appropriate deep vein thrombosis (DVT) prophylaxis.
[2017-02-07] MEDS: ALBUTEROL SULFATE 2.5 MG/0.5 ML INH NEB SOLN INH SCH ×4 (12:45→23:23)
[2017-02-07 20:00] VITALS: BP 130/80
[2017-02-07] MEDS: CitaloPRAM (CeleXA) 20 MG TAB PO SCH (21:13)
[2017-02-07] MEDS: FAMOTIDINE 20 MG TAB PO SCH (21:13)
[2017-02-07] MEDS: CLOPIDOGREL 75 MG TAB PO SCH (21:13)
[2017-02-07 22:35] VITALS: BP 145/89
[2017-02-07 23:14] VITALS: O2SAT 97
[2017-02-08] MEDS: methylPREDNISolone INJ 125 MG/2 ML VIAL (J2930) IV SCH ×2 (01:32→09:27)
[2017-02-08 02:00] VITALS: BP 142/62
[2017-02-08 03:30] VITALS: O2SAT 94
[2017-02-08] MEDS: ALBUTEROL SULFATE 2.5 MG/0.5 ML INH NEB SOLN INH SCH ×6 (03:37→23:12)
[2017-02-08] MEDS: HEPARIN SOD (PORCINE) 5000 UNITS/ML VIAL SC SCH ×3 (05:37→21:16)
[2017-02-08 06:00] VITALS: BP 131/80
[2017-02-08 07:11] LABS: MEAN CORPUSCULAR HGB CONC 34.5 g/dl (32.0-36.5); MEAN CORPUSCULAR VOLUME 95.5 fl (80.0-96.0); RED CELL DISTRIBUTION WIDTH 12.3 % (11.5-14.5); WHITE BLOOD COUNT 13.8 K/mm3 (4.0-10.0)
[2017-02-08 07:13] LABS: ALBUMIN 3.4 GM/DL (3.2-5.2); ALBUMIN/GLOBULIN RATIO 0.92 (1.00-1.93); ALKALINE PHOSPHATASE 60 U/L (45-117); ALT/SGPT 43 U/L (12-78); ANION GAP 11 MEQ/L (8-16); AST/SGOT 14 U/L (15-37); BILIRUBIN,TOTAL 0.3 MG/DL (0.2-1.0); BLOOD UREA NITROGEN 29 MG/DL (7-18); CALCIUM LEVEL 8.5 MG/DL (8.8-10.2); CARBON DIOXIDE LEVEL 26 MEQ/L (21-32); CHLORIDE LEVEL 97 MEQ/L (98-107); CREATININE FOR GFR 1.14 MG/DL (0.70-1.30); GLOMERULAR FILTRATION RATE > 60.0 (>49); GLUCOSE, FASTING 252 MG/DL (80-110); MAGNESIUM LEVEL 2.4 MG/DL (1.8-2.4); POTASSIUM SERUM 4.5 MEQ/L (3.5-5.1); SODIUM LEVEL 134 MEQ/L (136-145); TOTAL PROTEIN 7.1 GM/DL (6.4-8.2)
[2017-02-08] MEDS: BUDESONIDE 0.5 MG/2 ML INHALATION SUSPENSION INH SCH ×2 (07:54→18:20)
[2017-02-08] MEDS: FERROUS SULFATE 325MG TAB PO SCH ×2 (09:25→21:14)
[2017-02-08] MEDS: AZITHROMYCIN 250 MG TAB PO SCH (09:25)
[2017-02-08] MEDS: ASCORBIC ACID 500 MG TAB PO SCH (09:25)
[2017-02-08] MEDS: BACTRIM 160MG/800MG DS TAB PO SCH (09:25)
[2017-02-08] MEDS: CEFDINIR 300 MG CAP (OMNICEF) PO SCH ×2 (09:25→21:14)
[2017-02-08] MEDS: OMEPRAZOLE 20 MG CAP PO SCH (09:25)
[2017-02-08] MEDS: LOPERAMIDE 2 MG CAP PO SCH (09:25)
[2017-02-08] MEDS: VITAMIN B COMPLEX/VIT C CAP PO SCH (09:26)
[2017-02-08] MEDS: METOPROLOL SUCC (TopROL XL) 50MG **XL** TAB PO SCH (09:26)
[2017-02-08] MEDS: FOLIC ACID 1 MG TAB PO SCH (09:26)
[2017-02-08] MEDS: LACTOBACILLUS ACIDOPHILUS CAP (BACID) PO SCH ×2 (09:26→21:14)
[2017-02-08] MEDS: guaiFENesin ER 600 MG TAB PO SCH ×2 (09:26→21:14)
[2017-02-08] MEDS: FORMOTEROL FUMARATE 20 MCG/2 ML INHALATION SOLUTION (PERFOROMIST) INH SCH ×2 (11:32→18:20)
[2017-02-08] MEDS ORDERED: FLUCONAZOLE 100 MG TAB PO SCH (12:00)
[2017-02-08 14:00] VITALS: BP 148/80
--- NOTE | 2017-02-08 14:05 | IPN ---
DATE OF SERVICE: 02/08/2017 Mr. Velasquez is feeling about the same this morning. Certainly, better than arrival. He is helped with treatments with heliox. No chest pain. Not short of breath. Tolerating a diet. Temperature is 98, pulse 94, respiratory rate 18, blood pressure 131/80, 95% on room air. Intake and output (I and O) notable for a negative fluid balance of -990. One bowel movement yesterday. Breathing is symmetrical, diminished. I-to-E ratio is 1:4. No wheezes, rales, or rhonchi. Heart is distant sounding. Normal S1, S2. Abdomen is soft, doughy, nontender. No significant lower extremity edema. White count 13.8, hemoglobin 14.5, platelets of 291. Sodium is 134, creatinine is 1.14. This is a 66-year-old with severe obstructive pulmonary disease and combined immunodeficiency, coronary artery disease with stent, obstructive sleep apnea (MYKEL), recurrent pneumonia, hyperglycemia, vitamin D deficiency, iron deficiency, dyslipidemia, and aortic valve disease with bioprosthetic replacement, admitted for acute chronic obstructive pulmonary disease (COPD) exacerbation. The plan is as follows: 1. Respiratory. The patient continues with heliox treatments this morning. He is on steroids. Continues on steroids, which can be weaned today. 2. The patient has aortic valve disease, status post bioprosthetic valve. 3. The patient has coronary artery disease. 4. The patient has obstructive sleep apnea and has been compliant with continuous positive airway pressure (CPAP) at night. 5. The patient has chronic hypoxia. 6. The patient has diabetes, on insulin. 7. The patient has appropriate deep vein thrombosis (DVT) prophylaxis.
[2017-02-08] MEDS: FAMOTIDINE 20 MG TAB PO SCH (21:14)
[2017-02-08] MEDS: CitaloPRAM (CeleXA) 20 MG TAB PO SCH (21:14)
[2017-02-08] MEDS: CLOPIDOGREL 75 MG TAB PO SCH (21:14)
[2017-02-08] MEDS: methylPREDNISolone INJ 40 MG/1 ML VIAL (J2920) IV SCH (21:15)
[2017-02-08 22:00] VITALS: BP 144/95
[2017-02-08 23:13] VITALS: O2SAT 96
[2017-02-09] MEDS: ALBUTEROL SULFATE 2.5 MG/0.5 ML INH NEB SOLN INH SCH ×6 (03:12→23:31)
[2017-02-09] MEDS: HEPARIN SOD (PORCINE) 5000 UNITS/ML VIAL SC SCH ×3 (05:45→21:09)
[2017-02-09 06:00] VITALS: BP 129/99
[2017-02-09 06:43] LABS: MEAN CORPUSCULAR HEMOGLOBIN 34.3 pg (27.0-33.0); MEAN CORPUSCULAR VOLUME 95.3 fl (80.0-96.0); RED CELL DISTRIBUTION WIDTH 12.2 % (11.5-14.5); WHITE BLOOD COUNT 15.3 K/mm3 (4.0-10.0)
[2017-02-09] MEDS: BUDESONIDE 0.5 MG/2 ML INHALATION SUSPENSION INH SCH ×2 (07:16→19:20)
[2017-02-09] MEDS: FORMOTEROL FUMARATE 20 MCG/2 ML INHALATION SOLUTION (PERFOROMIST) INH SCH ×2 (07:16→19:20)
[2017-02-09 07:56] LABS: ALBUMIN 3.6 GM/DL (3.2-5.2); ALBUMIN/GLOBULIN RATIO 1.13 (1.00-1.93); ALKALINE PHOSPHATASE 64 U/L (45-117); ALT/SGPT 49 U/L (12-78); ANION GAP 13 MEQ/L (8-16); AST/SGOT 13 U/L (15-37); BILIRUBIN,TOTAL 0.4 MG/DL (0.2-1.0); BLOOD UREA NITROGEN 26 MG/DL (7-18); CARBON DIOXIDE LEVEL 25 MEQ/L (21-32); CHLORIDE LEVEL 95 MEQ/L (98-107); CREATININE FOR GFR 1.01 MG/DL (0.70-1.30); GLOMERULAR FILTRATION RATE > 60.0 (>49); GLUCOSE, FASTING 225 MG/DL (80-110); MAGNESIUM LEVEL 2.6 MG/DL (1.8-2.4); POTASSIUM SERUM 4.5 MEQ/L (3.5-5.1); SODIUM LEVEL 133 MEQ/L (136-145); TOTAL PROTEIN 6.8 GM/DL (6.4-8.2)
[2017-02-09] MEDS: AZITHROMYCIN 250 MG TAB PO SCH (09:42)
[2017-02-09] MEDS: FOLIC ACID 1 MG TAB PO SCH (09:42)
[2017-02-09] MEDS: FERROUS SULFATE 325MG TAB PO SCH ×2 (09:42→21:12)
[2017-02-09] MEDS: guaiFENesin ER 600 MG TAB PO SCH ×2 (09:43→21:11)
[2017-02-09] MEDS: LOPERAMIDE 2 MG CAP PO SCH (09:44)
[2017-02-09] MEDS: OMEPRAZOLE 20 MG CAP PO SCH (09:44)
[2017-02-09] MEDS: METOPROLOL SUCC (TopROL XL) 50MG **XL** TAB PO SCH (09:44)
[2017-02-09] MEDS: CEFDINIR 300 MG CAP (OMNICEF) PO SCH ×2 (09:44→21:11)
[2017-02-09] MEDS: VITAMIN B COMPLEX/VIT C CAP PO SCH (09:44)
[2017-02-09] MEDS: methylPREDNISolone INJ 40 MG/1 ML VIAL (J2920) IV SCH ×2 (09:44→21:09)
[2017-02-09] MEDS: ASCORBIC ACID 500 MG TAB PO SCH (09:44)
[2017-02-09] MEDS: LACTOBACILLUS ACIDOPHILUS CAP (BACID) PO SCH ×2 (09:44→21:11)
[2017-02-09 14:00] VITALS: BP 157/86
--- NOTE | 2017-02-09 14:19 | IPNPDOC ---
Date Seen The patient was seen on 02/09/17. Progress Note SUBJECTIVE: Patient is a 66-year-old Male that presented on Monday 02/05 with COPD exacerbation. Pt has PMH of autoimmune deficiency receiving transfusion weekly, CAD with stent placement, MYKEL on CPAP, recurrent pneumonia and immunodeficiency on rotating antibiotic prophylaxis, hyperglycemia secondary to steroid use, anemia, dyslipidemia, aortic valve disease with valve replacement. Pt presented with SOB and is being treated with heliox and continuous 2L O2 nasal cannula. Pt has been eating his normal diet and drinking fluids regularly. Pt states he is feeling better today and states throughout the night he experienced hot flashes, nonproductive cough, improvement of his SOB with occasional wheezing, and improvement of his chest tightness. Pt is still SOB and explains that before this exacerbation he used to be able to walk for 1 hour (40 min of rest, 20 min walking) until experiencing SOB. Today he states he is able to walk from his bed to the door before getting SOB. Pt has been having his normal BM of 1-2 per day with regular, frequent urination. Pt denies fever, chills, change in vision, change in hearing, sinus pain, throat pain, palpitations, orthopnea, paroxysmal nocturnal dyspnea, abdominal pain, N/V /D/C, change in bowel or urinary habits, edema, numbness, tingling. OBJECTIVE PHYSICAL EXAMINATION: VITAL SIGNS: Please see below. GENERAL: 66yo male that appears stated age. AXOx3. NAD. Pt clammy and warm to touch. HEENT: AT/NC. Orbits without pain on palpation. PERRL. External ears without pain or deformity. Sinuses and nasal bones nontender to palpation. Mucosa pink, septum midline. No thyromegaly or lymphadenopathy. Posterior pharynx pink and moist without exudate. CARDIOVASCULAR: Chest w/o palpable lifts, heaves, thrills. RRR w/o MRG. PMI nondisplaced. RESPIRATORY: Nontender to palpation. Chest expansion equal bilaterally. Crackles appreciated in the left middle lobe with audible wheezes. ABDOMINAL: Symmetrical, soft nontender with active BS w/o bruits of any arteries. Resonant to percussion. Without masses or guarding. EXTREMITIES: No edema of lower extremities. Pulses (carotid, brachial, radial, posterior tibialis) 2+ and equal bilaterally. Cap refill <2 sec. NEUROLOGICAL: EOMI, sensation intact upper and lower extremities. LABORATORY DATA: Please see below. MICROBIOLOGY: Please see below. 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 Today pt has improvement of SOB, chest tightness, and cough (now nonproductive) since admission. PROBLEMS: 1. COPD exacerbation and chronic hypoxia: Continue with Heliox, O2, duoneb, pulmicort, mucinex, proventil nebulizers, solumedrol. Consider weaning steroids. 2. Aortic Valve Dz: Post valve replacement. 3. Obstructive Sleep Apnea: Continue CPAP at night. 4. Hyperglycemia secondary to steroid use. 5. CAD: Plavix, Metoprolol. 6. Variable immune deficiency: Continue Bactrim, Cefdinir, Azithromycin. 7. Dyslipidemia: Continue Statin. 8. GERD: Continue with pepcid. DISPOSITION: Continue to appreciate pulmonary consult. Continue with Heliox. Pt has been cleared by PT to return home. VS, I&O, 24H, [facility] Vital Signs/I&O Vital Signs Date Time Temp Pulse Resp B/P (MAP) Pulse Ox O2 Delivery O2 Flow Rate FiO2 02/09/17 06:00 97.4 92 16 129/99 (109) 93 Nasal Cannula 2.0 02/05/17 10:19 98 I&O- Last 24 Hours up to 6 AM 02/09/17 05:59 Intake Total 1460 ml Output Total 1550 ml Balance -90 ml Laboratory Data 24H LABS Laboratory Tests 2 02/09/17 07:16: Anion Gap 13, Glomerular Filtration Rate > 60.0, Blood Urea Nitrogen 26H, Creatinine 1.01, Sodium Level 133L, Potassium Level 4.5, Chloride Level 95L, Carbon Dioxide Level 25, Calcium Level 9.0, Aspartate Amino Transf (AST/SGOT) 13L, Alanine Aminotransferase (ALT/SGPT) 49, Alkaline Phosphatase 64, Total Bilirubin 0.4, Total Protein 6.8, Albumin 3.6, Magnesium Level 2.6H, C-Reactive Protein, Quantitative < 0.30, Albumin/Globulin Ratio 1.13 CBC/BMP Laboratory Tests 02/09/17 06:28 Red Blood Count 4.37, Mean Corpuscular Volume 95.3, Mean Corpuscular Hemoglobin 34.3 H, Mean Corpuscular Hemoglobin Concent 36.0, Red Cell Distribution Width 12.2 02/09/17 07:16 Calcium Level 9.0, Aspartate Amino Transf (AST/SGOT) 13 L, Alanine Aminotransferase (ALT/SGPT) 49, Alkaline Phosphatase 64, Total Bilirubin 0.4, Total Protein 6.8, Albumin 3.6 Microbiology Microbiology 02/05/17 Blood Culture - Preliminary, Resulted No Growth after 72 hours. All specime... 02/05/17 Blood Culture - Preliminary, Resulted No Growth after 72 hours. All specime... 02/05/17 Respiratory Virus Panel (PCR) ([facility]) - Final, Complete MALINDA GAITAN-Melinda Feb 09, 2017 09:13
[2017-02-09 19:22] VITALS: O2SAT 95
[2017-02-09] MEDS: LIVALO 2 MG PO SCH (21:09)
[2017-02-09] MEDS: CitaloPRAM (CeleXA) 20 MG TAB PO SCH (21:11)
[2017-02-09] MEDS: CLOPIDOGREL 75 MG TAB PO SCH (21:12)
[2017-02-09] MEDS: FAMOTIDINE 20 MG TAB PO SCH (21:12)
[2017-02-09 22:00] VITALS: BP 119/80
[2017-02-09 23:31] VITALS: O2SAT 94
[2017-02-10] MEDS: ALBUTEROL SULFATE 2.5 MG/0.5 ML INH NEB SOLN INH SCH ×6 (03:49→23:09)
[2017-02-10] MEDS: HEPARIN SOD (PORCINE) 5000 UNITS/ML VIAL SC SCH ×3 (05:12→21:05)
[2017-02-10 07:19] LABS: MEAN CORPUSCULAR HEMOGLOBIN 34.2 pg (27.0-33.0); MEAN CORPUSCULAR VOLUME 94.9 fl (80.0-96.0); RED CELL DISTRIBUTION WIDTH 11.8 % (11.5-14.5); WHITE BLOOD COUNT 14.4 K/mm3 (4.0-10.0)
[2017-02-10] MEDS: BUDESONIDE 0.5 MG/2 ML INHALATION SUSPENSION INH SCH ×2 (07:19→19:13)
[2017-02-10] MEDS: FORMOTEROL FUMARATE 20 MCG/2 ML INHALATION SOLUTION (PERFOROMIST) INH SCH ×2 (07:19→19:13)
[2017-02-10 07:41] LABS: ALBUMIN 3.4 GM/DL (3.2-5.2); ALBUMIN/GLOBULIN RATIO 0.94 (1.00-1.93); ALKALINE PHOSPHATASE 57 U/L (45-117); ALT/SGPT 50 U/L (12-78); ANION GAP 12 MEQ/L (8-16); AST/SGOT 27 U/L (15-37); BILIRUBIN,TOTAL 0.4 MG/DL (0.2-1.0); BLOOD UREA NITROGEN 28 MG/DL (7-18); CALCIUM LEVEL 8.4 MG/DL (8.8-10.2); CARBON DIOXIDE LEVEL 26 MEQ/L (21-32); CHLORIDE LEVEL 96 MEQ/L (98-107); CREATININE FOR GFR 0.98 MG/DL (0.70-1.30); GLOMERULAR FILTRATION RATE > 60.0 (>49); GLUCOSE, FASTING 199 MG/DL (80-110); MAGNESIUM LEVEL 2.4 MG/DL (1.8-2.4); POTASSIUM SERUM 4.9 MEQ/L (3.5-5.1); SODIUM LEVEL 134 MEQ/L (136-145)
[2017-02-10] MEDS: LACTOBACILLUS ACIDOPHILUS CAP (BACID) PO SCH ×2 (09:13→21:03)
[2017-02-10] MEDS: FOLIC ACID 1 MG TAB PO SCH (09:14)
[2017-02-10] MEDS: BACTRIM 160MG/800MG DS TAB PO SCH (09:14)
[2017-02-10] MEDS: FERROUS SULFATE 325MG TAB PO SCH ×2 (09:14→21:03)
[2017-02-10] MEDS: LOPERAMIDE 2 MG CAP PO SCH (09:14)
[2017-02-10] MEDS: guaiFENesin ER 600 MG TAB PO SCH ×2 (09:15→21:03)
[2017-02-10] MEDS: CEFDINIR 300 MG CAP (OMNICEF) PO SCH ×2 (09:15→21:08)
[2017-02-10] MEDS: VITAMIN B COMPLEX/VIT C CAP PO SCH (09:18)
[2017-02-10] MEDS: OMEPRAZOLE 20 MG CAP PO SCH (09:18)
[2017-02-10] MEDS: ASCORBIC ACID 500 MG TAB PO SCH (09:19)
[2017-02-10] MEDS: AZITHROMYCIN 250 MG TAB PO SCH (09:19)
[2017-02-10] MEDS: METOPROLOL SUCC (TopROL XL) 50MG **XL** TAB PO SCH (09:19)
[2017-02-10] MEDS: methylPREDNISolone INJ 40 MG/1 ML VIAL (J2920) IV SCH ×2 (09:28→21:02)
--- NOTE | 2017-02-10 10:57 | IPNPDOC ---
Date Seen The patient was seen on 02/10/17. Progress Note SUBJECTIVE: Patient is a 66-year-old Male with COPD exacerbation that began Wednesday02/05/17. Pt has a PMH of COPD for 7 years, autoimmune deficiency with stent placement, MYKEL on CPAP at night, recurrent pneumonia and immunodeficiency on antibiotic prophylaxis, dyslipidemia, hyperglycemia secondary to steroid use, valve disease with valve replacement. Pt is currently being treated for COPD exacerbation with heliox and continuous O2 2L nasal cannula at 96%. Pt states he feels about the same today and is still experiencing ZAVALA, SOB, nonproductive cough, and chest pressure without chest pain that pt describes as "not being able to get enough air in." Pt states he has been drinking fluids more than normal due to his dry mouth. Pt pulled out IV last night that was in the R arm, now placed in L arm. Pt is able to walk around room with getting SOB when walking to door and back causing a drop in his O2 from 96% to 93%. Pt denies fever, chills, night sweats, sinus congestion/ pain, throat pain, trouble swallowing, palpitations, orthopnea, paroxysmal nocturnal dyspnea, abdominal pain, N/V/D/C, changes in bowel or urinary habits, lower leg edema, numbness, tingling. OBJECTIVE PHYSICAL EXAMINATION: VITAL SIGNS: Please see below. GENERAL: 66yo male who appears stated age. AXOx3. NAD. Pt warm to touch. Bruising noted right antecubital space due to pulling out of IV. HEENT: AT/NC. PEERL. External ears without pain on palpation. Sinuses and nasal bones nontender to palpation. No lymphadenopathy noted. Lips dry. Posterior pharynx pink and moist without exudate. CARDIOVASCULAR: W/o palpable lifts, heaves, or thrills. RRR w/o MRG. RESPIRATORY: Nontender to palpation. Chest expansion equal bilaterally. Decreased TF, decreased E-A change, crackles, audible wheezing throughout lung space. Resonant to percussion throughout. ABDOMINAL: Symmetrical, nontender with active BS w/o bruits of any arteries. Nontender to palpation without masses or guarding. EXTREMITIES: No edema noted on lower extremities. Pulses (carotid, brachial, radial, PT, DP) 2+ and equal bilaterally. Cap refill <2 sec. LABORATORY DATA: Please see below. MICROBIOLOGY: Please see below. DVT prophylaxis ordered: Heparin 5,000 units SC every 8 hours. ASSESSMENT AND PLAN: This is a 66-year-old Male with COPD exacerbation and PMH of autoimmune deficiency, CAD, MYKEL, recurrent pneumonia, immunodeficiency, dyslipidemia, aortic valve disease, hyperglycemia secondary to steroid use. Today, pt complains of ongoing nonproductive cough, chest pressure, ZAVALA, and SOB. PROBLEMS: 1. COPD exacerbation with Chronic hypoxia: Continue with Heliox, O2, Duoneb, Pulmicort, Mucinex, Proventil nebs, Solumedrol. Consider weaning steroids. Appreciate pulmonology's assistance. 2. Aortic valve disease: Post valve replacement. 3. Obstructive Sleep Apnea: Continue CPAP at night. 4. Hyperglycemia and leukocytosis secondary to steroid use. 5. CAD: Continue Plavix and Metoprolol. 6. Variable immune deficiency: Continue Bactrim, Cefdinir, Azithromycin prophylaxis. Patient remains on diflucan. 7. Dyslipidemia: Continue Statin. 8. GERD: Continue Pepcid and Prilosec. 9. Bowel regimen: Continue with bacid and immodium. DISPOSITION: Appreciate the continued assistance of pulmonology. Continue with Heliox. Pt has been cleared by PT to return home. VS, I&O, 24H, [facility] Vital Signs/I&O Vital Signs Date Time Temp Pulse Resp B/P (MAP) Pulse Ox O2 Delivery O2 Flow Rate FiO2 02/09/17 23:31 94 BIPAP/CPAP 2.0 02/09/17 22:00 96.2 95 17 119/80 (93) 02/05/17 10:19 98 I&O- Last 24 Hours up to 6 AM 02/10/17 06:00 Intake Total 1920 ml Output Total 2250 ml Balance -330 ml Laboratory Data 24H LABS Laboratory Tests 2 02/09/17 20:32: Bedside Glucose (Misc Panel) 357H 02/10/17 06:40: Bedside Glucose (Misc Panel) 217H 02/10/17 06:53: Anion Gap 12, Glomerular Filtration Rate > 60.0, Blood Urea Nitrogen 28H, Creatinine 0.98, Sodium Level 134L, Potassium Level 4.9, Chloride Level 96L, Carbon Dioxide Level 26, Calcium Level 8.4L, Aspartate Amino Transf (AST/SGOT) 27, Alanine Aminotransferase (ALT/SGPT) 50, Alkaline Phosphatase 57, Total Bilirubin 0.4, Total Protein 7.0, Albumin 3.4, Magnesium Level 2.4, C-Reactive Protein, Quantitative < 0.30, Albumin/Globulin Ratio 0.94L CBC/BMP Laboratory Tests 02/10/17 06:53 Red Blood Count 4.44, Mean Corpuscular Volume 94.9, Mean Corpuscular Hemoglobin 34.2 H, Mean Corpuscular Hemoglobin Concent 36.0, Red Cell Distribution Width 11.8, Calcium Level 8.4 L, Aspartate Amino Transf (AST/SGOT) 27, Alanine Aminotransferase (ALT/SGPT) 50, Alkaline Phosphatase 57, Total Bilirubin 0.4, Total Protein 7.0, Albumin 3.4 Microbiology Microbiology 02/05/17 Blood Culture - Final, Complete 02/05/17 Blood Culture - Final, Complete 02/05/17 Respiratory Virus Panel (PCR) ([facility]) - Final, Complete MALINDA GAITAN-Melinda Feb 10, 2017 09:12
[2017-02-10 14:00] VITALS: BP 133/84
[2017-02-10] MEDS: LIVALO 2 MG PO SCH (19:13)
[2017-02-10] MEDS: CitaloPRAM (CeleXA) 20 MG TAB PO SCH (21:03)
[2017-02-10] MEDS: FAMOTIDINE 20 MG TAB PO SCH (21:03)
[2017-02-10] MEDS: CLOPIDOGREL 75 MG TAB PO SCH (21:03)
[2017-02-10 22:00] VITALS: BP 129/85
[2017-02-11] MEDS: ALBUTEROL SULFATE 2.5 MG/0.5 ML INH NEB SOLN INH SCH ×6 (04:00→22:53)
[2017-02-11] MEDS: HEPARIN SOD (PORCINE) 5000 UNITS/ML VIAL SC SCH ×3 (05:26→21:22)
[2017-02-11 06:00] VITALS: BP 145/90
[2017-02-11] MEDS: BUDESONIDE 0.5 MG/2 ML INHALATION SUSPENSION INH SCH ×2 (07:08→19:46)
[2017-02-11] MEDS: FORMOTEROL FUMARATE 20 MCG/2 ML INHALATION SOLUTION (PERFOROMIST) INH SCH ×2 (07:08→21:42)
[2017-02-11 07:13] LABS: MEAN CORPUSCULAR HGB CONC 36.1 g/dl (32.0-36.5); MEAN CORPUSCULAR VOLUME 94.2 fl (80.0-96.0); RED CELL DISTRIBUTION WIDTH 11.7 % (11.5-14.5); WHITE BLOOD COUNT 13.3 K/mm3 (4.0-10.0)
[2017-02-11 08:00] LABS: ALBUMIN 3.6 GM/DL (3.2-5.2); ALBUMIN/GLOBULIN RATIO 1.16 (1.00-1.93); ALKALINE PHOSPHATASE 56 U/L (45-117); ALT/SGPT 55 U/L (12-78); ANION GAP 12 MEQ/L (8-16); AST/SGOT 13 U/L (15-37); BILIRUBIN,TOTAL 0.4 MG/DL (0.2-1.0); BLOOD UREA NITROGEN 22 MG/DL (7-18); CALCIUM LEVEL 8.8 MG/DL (8.8-10.2); CARBON DIOXIDE LEVEL 24 MEQ/L (21-32); CHLORIDE LEVEL 97 MEQ/L (98-107); CREATININE FOR GFR 0.96 MG/DL (0.70-1.30); GLOMERULAR FILTRATION RATE > 60.0 (>49); GLUCOSE, FASTING 190 MG/DL (80-110); MAGNESIUM LEVEL 2.3 MG/DL (1.8-2.4); POTASSIUM SERUM 4.4 MEQ/L (3.5-5.1); SODIUM LEVEL 133 MEQ/L (136-145); TOTAL PROTEIN 6.7 GM/DL (6.4-8.2)
[2017-02-11] MEDS: AZITHROMYCIN 250 MG TAB PO SCH (09:10)
[2017-02-11] MEDS: FERROUS SULFATE 325MG TAB PO SCH ×2 (09:10→21:26)
[2017-02-11] MEDS: VITAMIN B COMPLEX/VIT C CAP PO SCH (09:10)
[2017-02-11] MEDS: methylPREDNISolone INJ 40 MG/1 ML VIAL (J2920) IV SCH ×2 (09:10→21:23)
[2017-02-11] MEDS: LACTOBACILLUS ACIDOPHILUS CAP (BACID) PO SCH ×2 (09:11→21:25)
[2017-02-11] MEDS: LOPERAMIDE 2 MG CAP PO SCH (09:11)
[2017-02-11] MEDS: METOPROLOL SUCC (TopROL XL) 50MG **XL** TAB PO SCH (09:11)
[2017-02-11] MEDS: ASCORBIC ACID 500 MG TAB PO SCH (09:11)
[2017-02-11] MEDS: guaiFENesin ER 600 MG TAB PO SCH ×2 (09:11→21:24)
[2017-02-11] MEDS: CEFDINIR 300 MG CAP (OMNICEF) PO SCH ×2 (09:11→21:23)
[2017-02-11] MEDS: FOLIC ACID 1 MG TAB PO SCH (09:12)
[2017-02-11] MEDS: OMEPRAZOLE 20 MG CAP PO SCH (09:12)
--- NOTE | 2017-02-11 09:31 | IPNPDOC ---
Date Seen The patient was seen on 02/11/17. Progress Note SUBJECTIVE: Patient is a 66-year-old Male with COPD exacerbation that began Wednesday02/05/17. Pt has a PMH of COPD for 7 years, autoimmune deficiency with stent placement, MYKEL on CPAP at night, recurrent pneumonia and immunodeficiency on antibiotic prophylaxis, dyslipidemia, hyperglycemia secondary to steroid use, valve disease with valve replacement. Pt is currently being treated for COPD exacerbation with O2 2L nasal cannula at 95%. Pt feels the same today, but did have a bad night. Pt was up last night due to night sweats and nonproductive cough. Pt is still experiencing ZAVALA, SOB, nonproductive cough, and chest pressure without chest pain. Pt has been drinking fluids more than normal due to his dry mouth. Pt gets SOB when walking around room and into bathroom. Pt has mild tingling in his toes bilaterally. Pt denies fever, chills, change in vision, sinus congestion, sore throat, trouble swallowing, palpitations, orthopnea, paroxysmal nocturnal dyspnea, abdominal pain/cramping, N/V/D/C, changes in bowel or urinary habits, lower leg edema. OBJECTIVE PHYSICAL EXAMINATION: VITAL SIGNS: Please see below. GENERAL: 66yo male who appears stated age. AXOx3. NAD. Skin clammy. Bruising noted right antecubital space due to pulling out of IV Wednesday and lower abdomen due to heparin injections. HEENT: AT/NC. PERRLA. Sinuses and nasal bones nontender to palpation. No lymphadenopathy noted. Lips dry. CARDIOVASCULAR: W/o palpable lifts, heaves, or thrills. RRR w/o MRG. RESPIRATORY: Nontender to palpation. Chest expansion equal bilaterally. Decreased TF, decreased E-A change, wheezing throughout lung space. Resonant to percussion throughout. Pt was completing breathing treatment during lung exam. ABDOMINAL: Symmetrical, tender over bruising of lower abdomen, nontender remainder of abdomen. Active BS w/o bruits of any arteries. No masses or guarding. EXTREMITIES: No edema of lower extremities. Pulses (carotid, brachial, radial, PT, DP) 2+ and equal bilaterally. Cap refill <2 sec. NEUROLOGICAL: Sensation intact lower extremities. LABORATORY DATA: Please see below. MICROBIOLOGY: Please see below. DVT prophylaxis ordered: Heparin 5,000 units SC every 8 hours, but is refusing secondary to increased tenderness to his abdomen. ASSESSMENT AND PLAN: Pt 66-year-old Male with COPD exacerbation and PMH of autoimmune deficiency, CAD, MYKEL, recurrent pneumonia, immunodeficiency, dyslipidemia, aortic valve disease, hyperglycemia secondary to steroid use. Today, pt complains of night sweats, nonproductive cough, chest pressure, ZAVALA, SOB, and mild tingling on toes bilaterally. PROBLEMS: 1. COPD exacerbation with Chronic hypoxia: Continue O2, Duoneb, Pulmicort, Mucinex, Proventil nebs, Solumedrol. Continue weaning steroids from IV to PO. Appreciate pulmonology's assistance. 2. Aortic valve disease: Post valve replacement. 3. Obstructive Sleep Apnea: Continue CPAP at night. 4. Hyperglycemia and leukocytosis secondary to steroid use. 5. CAD: Continue Plavix and Metoprolol. 6. Variable immune deficiency: Continue Bactrim, Cefdinir, Azithromycin prophylaxis. Patient remains on Diflucan. 7. Dyslipidemia: Continue Statin. 8. GERD: Continue Pepcid and Prilosec. 9. Bowel regimen: Continue with Bacid and Imodium. DISPOSITION: Appreciate the continued assistance of pulmonology. Continue weaning steroids. Ambulate pt with and without O2 to consider continuous O2 use at home. [facility] Sign[facility]I&O Vital Signs Date Time Temp Pulse Resp B/P (MAP) Pulse Ox O2 Delivery O2 Flow Rate FiO2 02/11/17 06:00 97.4 83 18 145/90 (108) 95 Room Air 02/10/17 21:54 2.0 02/05/17 10:19 98 I&O- Last 24 Hours up to 6 AM 02/11/17 06:00 Intake Total 2060 ml Output Total 3150 ml Balance -1090 ml Laboratory Data 24H LABS Laboratory Tests 2 02/11/17 07:29: Anion Gap 12, Glomerular Filtration Rate > 60.0, Blood Urea Nitrogen 22H, Creatinine 0.96, Sodium Level 133L, Potassium Level 4.4, Chloride Level 97L, Carbon Dioxide Level 24, Calcium Level 8.8, Aspartate Amino Transf (AST/SGOT) 13L, Alanine Aminotransferase (ALT/SGPT) 55, Alkaline Phosphatase 56, Total Bilirubin 0.4, Total Protein 6.7, Albumin 3.6, Magnesium Level 2.3, C-Reactive Protein, Quantitative < 0.30, Albumin/Globulin Ratio 1.16 CBC/BMP Laboratory Tests 02/11/17 06:33 Red Blood Count 4.50, Mean Corpuscular Volume 94.2, Mean Corpuscular Hemoglobin 34.0 H, Mean Corpuscular Hemoglobin Concent 36.1, Red Cell Distribution Width 11.7 02/11/17 07:29 Calcium Level 8.8, Aspartate Amino Transf (AST/SGOT) 13 L, Alanine Aminotransferase (ALT/SGPT) 55, Alkaline Phosphatase 56, Total Bilirubin 0.4, Total Protein 6.7, Albumin 3.6 Microbiology Microbiology 02/05/17 Blood Culture - Final, Complete 02/05/17 Blood Culture - Final, Complete 02/05/17 Respiratory Virus Panel (PCR) ([facility]) - Final, Complete MALINDA GAITAN-Melinda Feb 11, 2017 08:55
[2017-02-11 14:00] VITALS: BP 148/91
[2017-02-11] MEDS ORDERED: TUSSICAPS ER 10/8MG CAPSULE PO SCH (21:00)
[2017-02-11] MEDS: LIVALO 2 MG PO SCH (21:21)
[2017-02-11] MEDS: FAMOTIDINE 20 MG TAB PO SCH (21:25)
[2017-02-11] MEDS: CitaloPRAM (CeleXA) 20 MG TAB PO SCH (21:25)
[2017-02-11] MEDS: CLOPIDOGREL 75 MG TAB PO SCH (21:25)
[2017-02-11 22:00] VITALS: BP 117/80
[2017-02-12] MEDS: ALBUTEROL SULFATE 2.5 MG/0.5 ML INH NEB SOLN INH SCH ×3 (03:08→11:19)
[2017-02-12 06:00] VITALS: BP 135/84
[2017-02-12] MEDS: HEPARIN SOD (PORCINE) 5000 UNITS/ML VIAL SC SCH ×2 (06:13→13:10)
[2017-02-12 06:33] LABS: MEAN CORPUSCULAR HEMOGLOBIN 33.5 pg (27.0-33.0); MEAN CORPUSCULAR HGB CONC 35.1 g/dl (32.0-36.5); MEAN CORPUSCULAR VOLUME 95.4 fl (80.0-96.0); RED CELL DISTRIBUTION WIDTH 12.2 % (11.5-14.5); WHITE BLOOD COUNT 13.5 K/mm3 (4.0-10.0)
[2017-02-12 06:42] LABS: ALBUMIN 3.7 GM/DL (3.2-5.2); ALKALINE PHOSPHATASE 63 U/L (45-117); ALT/SGPT 58 U/L (12-78); ANION GAP 13 MEQ/L (8-16); AST/SGOT 27 U/L (15-37); BILIRUBIN,TOTAL 0.5 MG/DL (0.2-1.0); BLOOD UREA NITROGEN 24 MG/DL (7-18); CARBON DIOXIDE LEVEL 23 MEQ/L (21-32); CHLORIDE LEVEL 95 MEQ/L (98-107); CREATININE FOR GFR 1.02 MG/DL (0.70-1.30); GLOMERULAR FILTRATION RATE > 60.0 (>49); GLUCOSE, FASTING 231 MG/DL (80-110); MAGNESIUM LEVEL 2.4 MG/DL (1.8-2.4); POTASSIUM SERUM 4.4 MEQ/L (3.5-5.1); SODIUM LEVEL 131 MEQ/L (136-145); TOTAL PROTEIN 7.4 GM/DL (6.4-8.2)
[2017-02-12] MEDS: BUDESONIDE 0.5 MG/2 ML INHALATION SUSPENSION INH SCH (07:10)
[2017-02-12] MEDS: FORMOTEROL FUMARATE 20 MCG/2 ML INHALATION SOLUTION (PERFOROMIST) INH SCH (07:10)
[2017-02-12] MEDS ORDERED: TUSS1CAP5 PO (08:59)
[2017-02-12] MEDS ORDERED: PRED20TA PO ×3 (08:59→09:25)
[2017-02-12] MEDS ORDERED: predniSONE 10 MG TAB PO SCH (09:00)
[2017-02-12] MEDS: AZITHROMYCIN 250 MG TAB PO SCH (09:14)
[2017-02-12] MEDS: CEFDINIR 300 MG CAP (OMNICEF) PO SCH (09:15)
[2017-02-12] MEDS: VITAMIN B COMPLEX/VIT C CAP PO SCH (09:15)
[2017-02-12 09:16] VITALS: BP 135/84
[2017-02-12] MEDS: ASCORBIC ACID 500 MG TAB PO SCH (09:16)
[2017-02-12] MEDS: METOPROLOL SUCC (TopROL XL) 50MG **XL** TAB PO SCH (09:16)
[2017-02-12] MEDS: FOLIC ACID 1 MG TAB PO SCH (09:16)
[2017-02-12] MEDS: OMEPRAZOLE 20 MG CAP PO SCH (09:16)
[2017-02-12] MEDS: LACTOBACILLUS ACIDOPHILUS CAP (BACID) PO SCH (09:16)
[2017-02-12] MEDS: guaiFENesin ER 600 MG TAB PO SCH (09:17)
[2017-02-12] MEDS: LOPERAMIDE 2 MG CAP PO SCH (09:17)
[2017-02-12] MEDS: FERROUS SULFATE 325MG TAB PO SCH (09:17)
[2017-02-12] MEDS: BACTRIM 160MG/800MG DS TAB PO SCH (09:17)
[2017-02-12] MEDS ORDERED: PRED50TA PO (09:21)
[2017-02-12] MEDS ORDERED: TUSSSUS6 PO (13:34)
--- NOTE | 2017-02-12 14:25 | DS.PDOC ---
Discharge Summary General Date of Admission Feb 05, 2017 at 13:16 Date of Discharge 02/12/2017 Attending Physician: PAMELA BARRIGA MD Specialist/Consultants Involve: Sidney Pedroza DO, [facility] Specialist/Consultants Involve Primary care provider: Roman Ruano Discharge Summary PROCEDURES PERFORMED DURING STAY: None. ADMITTING DIAGNOSES: 1. COPD exacerbation. 2. Variable immune deficiency. 3. Coronary artery disease. 4. Aortic bioprosthetic valve. 5. Sleep apnea with CPAP. 6. Dyslipidemia. 7. Gastroesophageal reflux disease. DISCHARGE DIAGNOSES: 1. COPD exacerbation. 2. Variable immune deficiency. 3. Coronary artery disease. 4. Aortic bioprosthetic valve. 5. Sleep apnea with CPAP. 6. Dyslipidemia. 7. Gastroesophageal reflux disease. COMPLICATIONS/CHIEF COMPLAINT: COPD Exacerbation. HISTORY OF PRESENT ILLNESS: Mr. Velasquez is a 66-year-old male patient with underlying medical history of chronic obstructive pulmonary disease (COPD) - on oxygen at home, 2 to 4 liters, autoimmune deficiency with variable immune deficiency, receiving transfusion weekly, immunoglobulin, as well as coronary artery disease with stent placement, obstructive sleep apnea, recurrent pneumonia, hyperglycemia secondary to steroid use, chronically elevated lactic acid secondary to albuterol use. Also, anxiety, vitamin D deficiency, iron deficiency anemia, dyslipidemia, aortic valve disease status post bioprosthetic valve replacement. Furthermore, patient is chronically on suppression antibiotics for prophylaxis. He presented with since yesterday shortness of breath, chest tightness for 2 days with cough that is nonproductive. Denies any fevers, chills, palpitations. Unable to cough up any mucus. As per patient, he has been getting steroid injections by primary care provider for the past week or so, initially with mild improvement since Wednesday, but over the weekend, the patient's symptoms got worse and subsequently, during the week, the patient has not improved with steroid injection of Solu-Medrol. Furthermore, the patient had sick contact with granddaughter who had upper respiratory infection (URI) versus allergy symptoms. Denies any recent travel. HOSPITAL COURSE: Patient was admitted to the medical-surgical unit and his COPD exacerbation was managed with IV SoluMedrol taper with eventual switch to tapering dose of oral prednisone, pulmicort, formoterol, and continued other current home medication regimen. Pulmonology was consulted. Recommendations from pulmonary included administering Heliox 70/30. Upon discharge patient was given Tussionex Pennkinetic for a cough. Patient remained on rotating antibiotics for variable immune deficiency. Coronary artery disease was managed with Plavix and beta jenny. Sleep apnea managed with continuous positive airway pressure (CPAP) at night. Remained on oxygen throughout hospitalization. Continued on statin for dyslipidemia. Proton pump inhibitor for GERD. Heparin for anticoagulation prophylaxis. Patient improved throughout hospitalization and had returned to baseline by time of discharge. Patient did note during hospitalization that there was mention of considering immunotherapy with IgE. Advised patient to discuss with primary care provider and various specialists involved with patient's care. DISCHARGE MEDICATIONS: Please see below. ALLERGIES: Please see below. PHYSICAL EXAMINATION ON DISCHARGE: VITAL SIGNS: Please see below. GENERAL: Pleasant male, appears stated age, well nourished, well developed, in no acute distress HEENT: Atraumatic, normocephalic, PERRL, EOMI, oral mucosa appears pink and moist, nasal septum appears midline, nares are patent NECK: Round, soft, supple, trachea midline, no lymphadenopathy CARDIOVASCULAR EXAMINATION: Regular rate and rhythm, normal S1 and S2, no murmur , rub, click RESPIRATORY EXAMINATION: Left upper right lobes with rales that are improving, great improvement in wheezing ABDOMINAL EXAMINATION: Obese, soft, non-distended, bowel sounds appreciated, multiple ecchymoses along lower abdomen from heparin injection EXTREMITIES: Peripheral pulses appreciated bilaterally, equal, symmetrical, +2/4 SKIN: Warm, dry, intact NEUROLOGICAL EXAMINATION: CN II-XII grossly intact PSYCHIATRIC EXAMINATION: Pleasant LABORATORY DATA: Please see below. IMAGING: Chest x-ray IMPRESSION: Bibasilar scarring. CT chest without contrast IMPRESSION: 1. Moderate to early advanced chronic COPD and emphysematous changes along with biapical scarring and bilateral fibro atelectatic changes. 2. No acute mediastinal or pleuroparenchymal process. PROGNOSIS: Long-term prognosis guarded, but stable at discharge ACTIVITY: As tolerated. DIET: 2mg sodium. DISCHARGE PLAN: 1. Continue oral tapering dose of prednisone starting with 30mg daily for one week, 25mg daily for one week, and ending with home daily dose of 20mg. 2. Start taking Tussionex Pennkinetic 5mL at night for cough. 3. Return to the emergency department if your symptoms do not improve or worsen. DISPOSITION: Home. DISCHARGE INSTRUCTIONS: 1. Follow-up with Roman Ruano in 7-10 days. 2. Follow-up with Dr. Kline in 7-10 days. 3. Follow-up with Dr. Davis in 7-10 days. 4. Follow-up with Dr. Otoole in 7-10 days. ITEMS TO FOLLOWUP ON ON OUTPATIENT: 1. COPD. 2. Variable immunodeficiency. 3. Chronic medical conditions. DISCHARGE CONDITION: Stable. TIME SPENT ON DISCHARGE: Greater than 30 minutes. Vital Signs/I&Os Vital Signs Date Time Temp Pulse Resp B/P (MAP) Pulse Ox O2 Delivery O2 Flow Rate FiO2 02/12/17 09:16 84 135/84 02/12/17 09:00 Nasal Cannula 2.0 02/12/17 06:00 96.9 18 97 I&O- Last 24 Hours up to 6 AM 02/12/17 06:00 Intake Total 720 ml Output Total 1150 ml Balance -430 ml Laboratory Data Labs 24H Laboratory Tests 2 02/12/17 05:48: Anion Gap 13, Glomerular Filtration Rate > 60.0, Blood Urea Nitrogen 24H, Creatinine 1.02, Sodium Level 131L, Potassium Level 4.4, Chloride Level 95L, Carbon Dioxide Level 23, Calcium Level 9.0, Aspartate Amino Transf (AST/SGOT) 27 , Alanine Aminotransferase (ALT/SGPT) 58, Alkaline Phosphatase 63, Total Bilirubin 0.5, Total Protein 7.4, Albumin 3.7, Magnesium Level 2.4, C-Reactive Protein, Quantitative < 0.30, Albumin/Globulin Ratio 1.00 CBC/BMP Laboratory Tests 02/12/17 05:48 Red Blood Count 4.58, Mean Corpuscular Volume 95.4, Mean Corpuscular Hemoglobin 33.5 H, Mean Corpuscular Hemoglobin Concent 35.1, Red Cell Distribution Width 12.2, Calcium Level 9.0, Aspartate Amino Transf (AST/SGOT) 27, Alanine Aminotransferase (ALT/SGPT) 58, Alkaline Phosphatase 63, Total Bilirubin 0.5, Total Protein 7.4, Albumin 3.7 Microbiology Microbiology 02/05/17 Blood Culture - Final, Complete 02/05/17 Blood Culture - Final, Complete 02/05/17 Respiratory Virus Panel (PCR) ([facility]YMAN) - Final, Complete Discharge Medications Scheduled (Tudorza Pressair) 400 Mcg/Act Aer, 1 INH INH BID, (Reported) (Juanzenjeimy) Unknown Strength Inj, Unknown Dose SC QWEEK, (Reported) SATURDAYS Albuterol Sulfate (Albuterol Sulfate) 2.5 Mg/3 Ml Nebu, 2.5 MG INH TID, ( Reported) Ascorbic Acid (Vitamin C) 1,000 Mg Tab, 1,000 MG PO DAILY, (Reported) Azithromycin (Azithromycin) 500 Mg Tab, 500 MG PO DAILY, (Reported) STARTED 02/04 FOR 7 DAYS B1/B2/B3/B5/B6 (Vitamin B Complex) 1 Tab Tab, 1 TAB PO DAILY, (Reported) Budesonide (Pulmicort) 0.5 Mg/2 Ml Mely, 0.5 MG INH BID, (Reported) USED WITH PERFOROMIST Calcium Citrate (Calcium Citrate) 1,040 Mg Tab, 1,000 MG PO BID, (Reported) Cefdinir (Cefdinir) 300 Mg Cap, 300 MG PO BID, (Reported) STARTED 02/02 FOR 14 DAYS Chlorphenir/Hydrocod Polistir (Tussicaps 10-8 mg) 1 Cap Cap, 1 CAP PO QHS Citalopram Hydrobromide (Celexa) 20 Mg Tab, 20 MG PO QHS, (Reported) Clopidogrel Bisulfate (Plavix) 75 Mg Tab, 75 MG PO QHS, (Reported) Ferrous Sulfate (Ferrous Sulfate) 325 Mg Tab, 325 MG PO BID, (Reported) TAKES AT NOON, AND BEDTIME Fluconazole (Fluconazole) 200 Mg Tab, 200 MG PO QWEEK, (Reported) MONDAYS AT NOON Folic Acid (Folic Acid) 1 Mg Tab, 1 MG PO DAILY, (Reported) Formoterol Fumarate Dihydrate (Perforomist) 20 Mcg/2 Ml Neb, 20 MCG INH BID, ( Reported) USED WITH PULMICORT NEB Guaifenesin (Guaifenesin) 400 Mg Tab, 1,200 MG PO BID, (Reported) Ipratropium Norman (Ipratropium Norman) 0.5 Mg/2.5 Ml Soln, 0.5 MG INH TID, ( Reported) Lactobacillus Acidophilus (Probiotic) 1 Cap Cap, 1 CAP PO DAILY, (Reported) Loperamide HCl (Loperamide HCl) 2 Mg Tab, 4 MG PO QHS, (Reported) Loperamide HCl (Loperamide A-D) 2 Mg Tab, 2 MG PO QAM, (Reported) Metoprolol Succinate (Toprol Xl) 50 Mg Tab, 50 MG PO DAILY, (Reported) Omeprazole (Omeprazole) 40 Mg Cap, 40 MG PO DAILY, (Reported) Pitavastatin Calcium (Livalo) 2 Mg Tab, 2 MG PO QHS, (Reported) Prednisone (Prednisone) 20 Mg Tab, 30 MG PO DAILY TAKE 30MG FOR ONE WEEK, THEN 25MG FOR ONE WEEK, THEN REGULAR DOSE OF 20MG Prednisone (Prednisone) 50 Mg Tab, 25 MG PO DAILY TAKE 30MG FOR ONE WEEK, THEN 25MG FOR ONE WEEK, THEN REGULAR DOSE OF 20MG DAILY Prednisone (Prednisone) 20 Mg Tab, 20 MG PO DAILY TAKE 30MG DAILY FOR ONE WEEK, THEN 25MG DAILY FOR ONE WEEK, THEN TAKE REGULAR 20MG DAILY Ranitidine HCl (Ranitidine HCl) 300 Mg Tab, 1 TAB PO QHS, (Reported) Roflumilast (Daliresp) 500 Mcg Tab, 500 MCG PO DAILY, (Reported) NOONTIME Trimethoprim/Sulfamethoxazole (Bactrim Ds 800-160 mg) 1 Tab Tab, 1 TAB PO 3XW, ( Reported) WED/WED/WED Scheduled PRN Nitroglycerin (Nitrostat) 0.4 Mg Subl, 0.4 MG SL Q5MP PRN for ANGINA, (Reported) Allergies Coded Allergies: Fexofenadine (Verified Allergy, Severe, ANAPHYLAXIS; BENADRYL [place], 09/12/12) Penicillins (Verified Allergy, Severe, THROAT AND FACE SWELLING, 09/30/15) PT REPORTS THAT HE HAS TAKEN ROCEPHIN AND OTHER CEPHALOSPORNS IN THE PAST WITH NO ADVERSE EFFECTS Quinine (Verified Allergy, Intermediate, SWELLING AND RASH, 09/12/12) Aspirin (Unverified Adverse Reaction, Unknown, Rectal Bleeding, 09/28/15) Levofloxacin (Verified Adverse Reaction, Unknown, extremity cramping, ) MALINDA GAITAN-Melinda Feb 12, 2017 14:25
== END 2017-02-12 14:00 | disposition home or self-care (01) | DRG 191 ==
LOC: M ED 08:54 → M ED INP 13:16 → M ICU 15:30 → M MS5PR 02-07 22:24
PROVIDERS: ADMIT Hospitalist; ATTEND Internal Medicine
DX: J44.1 Chronic obstructive pulmonary disease with (acute) exacerbation (principal); D83.9 Common variable immunodeficiency, unspecified; I25.10 Atherosclerotic heart disease of native coronary artery without angina pectoris; G47.33 Obstructive sleep apnea (adult) (pediatric); F41.9 Anxiety disorder, unspecified; E55.9 Vitamin D deficiency, unspecified; R73.03 Prediabetes; D50.9 Iron deficiency anemia, unspecified; K21.9 Gastro-esophageal reflux disease without esophagitis; R09.02 Hypoxemia; E78.5 Hyperlipidemia, unspecified; Z99.81 Dependence on supplemental oxygen; Z95.2 Presence of prosthetic heart valve; Z88.0 Allergy status to penicillin; Z88.1 Allergy status to other antibiotic agents; Z88.6 Allergy status to analgesic agent; Z88.8 Allergy status to other drugs, medicaments and biological substances; Z95.5 Presence of coronary angioplasty implant and graft; Z87.891 Personal history of nicotine dependence; Z79.02 Long term (current) use of antithrombotics/antiplatelets; Z79.52 Long term (current) use of systemic steroids; Z79.899 Other long term (current) drug therapy

== ENCOUNTER → 2017-02-23 | Outpatient (REF) | payer MEDICARE, OTHER ==
[~2017-02-23] MED LIST changes: +AZIT500T2 PO; +BACT800T5 PO; +CEFD1CAP8 PO; +GUAI400T6 PO; +LOPE2TAB3 PO; +LOPE2TAB5 PO; +METH125VL IM; +TUSS1CAP5 PO; +TUSSSUS6 PO; +[UNRECOGNIZED DRUG - CODE] PO; +omnicef PO
[2017-02-23 14:47] LABS: IMMUNOGLOBULIN G 895 MG/DL (681-1648)
[2017-02-23 15:09] LABS: IMMUNOGLOBULIN A 15.3 MG/DL (70-400); IMMUNOGLOBULIN M < 5.3 MG/DL (40-230)
== END ==
LOC: M SFHCPLAZ 11:02
PROVIDERS: ATTEND Internal Medicine Infectious Disease
DX: J44.9 Chronic obstructive pulmonary disease, unspecified (principal)

== ENCOUNTER → 2017-03-02 | Outpatient (REF) | payer MEDICARE, OTHER | LOC: M LAB REF 13:24 | PROVIDERS: ATTEND Internal Medicine Pulmonary Disease | DX: J47.9 Bronchiectasis, uncomplicated (principal); R05 Cough ==

== ENCOUNTER 2017-04-25 10:19 | Emergency (ER) | payer MEDICARE, OTHER ==
[~2017-04-25] VITALS: Ht 172.7 cm; Wt 79.1 kg
[2017-04-25] MEDS ORDERED: DYMI137S (10:35)
[2017-04-25] MEDS ORDERED: GLIM2TAB PO (10:35)
[2017-04-25] MEDS ORDERED: SING10TA32 PO (10:35)
[2017-04-25] MEDS ORDERED: PERC5TAB12 PO (10:35)
[2017-04-25 11:26] LABS: BASO # 0.1 10^3/uL (0.0-0.2); BASO % 0.6 % (0.0-1.0); EOS # 0.2 10^3/uL (0.0-0.50); EOS % 1.5 % (0.0-3.0); IMMATURE GRANULOCYTE % 0.5 % (0-0); LYMPH # 1.9 10^3/uL (1.5-4.5); MEAN CORPUSCULAR HEMOGLOBIN 33.1 pg (27.0-33.0); MEAN CORPUSCULAR HGB CONC 34.5 g/dl (32.0-36.5); MEAN CORPUSCULAR VOLUME 96.1 fl (80.0-96.0); MONO # 1.1 10^3/uL (0.0-0.8); MONO % 8.9 % (0.0-5.0); NEUTROPHILS # 8.8 10^3/uL (1.8-7.7); NEUTROPHILS % 72.5 % (36.0-66.0); PLATELET COUNT, AUTOMATED 315 10^3/uL (150-450); RED CELL DISTRIBUTION WIDTH 12.7 % (11.5-14.5); WHITE BLOOD COUNT 12.1 10^3/uL (4.0-10.0)
[2017-04-25] MEDS ORDERED: methylPREDNISolone INJ 125 MG/2 ML VIAL (J2930) IV ONE (11:30)
[2017-04-25] MEDS ORDERED: IPRATROPIUM 0.5MG/ALBUTEROL 2.5MG INH SOL UD 3ML (DUONEB)(J7620) NEB ONE (11:30)
--- NOTE | 2017-04-25 11:33 | ECGEPIP ---
Stationary ECG Study [facility] Test Date: 2017-04-25 Pat Name: MINOO CASTILLO Department: Room: - Gender: M [employer] Specialist: HIEN : 1950 Requested By: MAURILIO Parr Order Number: [id number] Reading MD: Nhung Stanton Measurements Intervals [place] Rate: 72 P: 27 CA: 148 QRS: 19 QRSD: 100 T: 47 QT: 413 QTc: 452 Interpretive Statements SINUS RHYTHM NO CHANGE SINCE 02/05/17 Electronically Signed On 04-25-2017 11:32:54 EST by Nhung Stanton
[2017-04-25 11:40] LABS: ALBUMIN 3.6 GM/DL (3.2-5.2); ALBUMIN/GLOBULIN RATIO 0.92 (1.00-1.93); ALKALINE PHOSPHATASE 91 U/L (45-117); ALT/SGPT 28 U/L (12-78); ANION GAP 5 MEQ/L (8-16); AST/SGOT 17 U/L (7-37); BILIRUBIN,DIRECT 0.1 MG/DL (0.0-0.2); BILIRUBIN,TOTAL 0.5 MG/DL (0.2-1.0); BLOOD UREA NITROGEN 9 MG/DL (7-18); CALCIUM LEVEL 9.3 MG/DL (8.8-10.2); CARBON DIOXIDE LEVEL 27 MEQ/L (21-32); CHLORIDE LEVEL 106 MEQ/L (98-107); CREATININE FOR GFR 0.96 MG/DL (0.70-1.30); GLOMERULAR FILTRATION RATE > 60.0 (>49); GLUCOSE, FASTING 114 MG/DL (80-110); POTASSIUM SERUM 4.4 MEQ/L (3.5-5.1); SODIUM LEVEL 138 MEQ/L (136-145); TOTAL PROTEIN 7.5 GM/DL (6.4-8.2)
[2017-04-25 11:43] LABS: INR 0.96
[2017-04-25] MEDS ORDERED: ISOVUE-370 76% 100ML VIAL (Q9967) As Ordered ONE (11:49)
--- NOTE | 2017-04-25 13:33 | REP ---
PORTABLE CHEST: AP portable view of the chest is performed and compared to a prior study of 02/05/2017. There is linear fibroatelectatic change in each lung base with mild diffuse interstitial fibrosis. Heart is normal in size. There is calcification of the thoracic aorta. The mediastinal silhouette is unchanged. IMPRESSION: Mild bibasilar fibroatelectasis. Signed by Choco Schneider MD 04/25/2017 05:37 P
--- NOTE | 2017-04-25 13:56 | REP ---
CT ANGIOGRAM ABDOMEN AND PELVIS: TECHNIQUE: Axial contrast enhanced images from the lung bases to the pubic symphysis using 100 mL Isovue 370 intravenous contrast material with multiplanar reformations and reconstruction images. There is no evidence of abdominal aortic aneurysm. There are moderate atherosclerotic calcifications of the abdominal aorta diffusely. There is moderate stenosis at the origin of the celiac and superior mesenteric arteries and there also appears to be narrowing at the origin of the inferior mesenteric artery. There appears to be fairly high grade stenosis at the origin of the right renal artery. There is moderate stenosis at the origin of the left renal artery. The liver, spleen, adrenals, and pancreas are unremarkable. Right kidney is unremarkable. There is a left renal cyst. This measures about 2.3 cm in diameter, located in the mid anterior left kidney. There is no free air or free fluid. There is no bowel wall thickening. There is no evidence of appendicitis. Urinary bladder appears unremarkable. There is no pelvic mass. There is sigmoid diverticulosis without acute diverticulitis. IMPRESSION: No evidence of abdominal aortic aneurysm or dissection. Moderate diffuse atherosclerotic calcifications with stenosis at the origin of the mesenteric arteries and renal arteries as discussed in detail above. No free air or free fluid. No acute abdominal or pelvic abnormality. Note is made of a new mild compression fracture of T9 when compared to the prior CT of the chest 02/05/2017 with no retropulsion of fragments into the spinal canal. Signed by Choco Schneider MD 04/25/2017 05:38 P
[2017-04-25] MEDS ORDERED: PERCOCET 5MG/325MG TAB PO ONE (16:15)
[2017-04-25 16:24] VITALS: BP 126/80
[2017-04-25] MEDS ORDERED: [UNRECOGNIZED DRUG - SUPPLY] EXT (16:24)
--- NOTE | 2017-04-26 06:19 | REP ---
CT ANGIOGRAM OF THE CHEST: TECHNIQUE: Axial contrast enhanced images from the thoracic inlet to the upper abdomen using 100 mL Isovue 370 intravenous contrast material with multiplanar reformations. There is mild dilatation of the ascending thoracic aorta with a maximum AP diameter of 4.4 cm. There is no evidence of aortic dissection. Mild atherosclerotic calcifications are scattered throughout the thoracic aorta. There is no evidence of pulmonary embolism. No adenopathy is seen in the chest. The heart is normal in size. There is no pleural or pericardial effusion. There is diffuse interstitial fibrosis. There is mild biapical pleural scarring. There is mild patchy atelectasis/infiltrate in each lung base not seen on prior CT of 02/05/2017. There is right lower lobe bronchiectasis with some mild inspissated secretions within these dilated bronchioles. There are two old compression deformities of the T6 and T7 vertebral bodies. There is a new mild compression fracture of T9 not seen on prior CT of 02/05/2017. IMPRESSION: Mild dilatation of ascending thoracic aorta at 4.4 cm in AP diameter. No evidence of aortic dissection. Chronic fibrotic changes in both lungs with mild superimposed atelectasis/infiltrate in each lung base. There is right lower lobe bronchiectasis with some mild inspissated secretions in the right lower lobe dilated bronchioles. There are two old compression deformities of the T6 and T7 vertebral bodies. There is a new mild compression fracture of T9 not seen on prior CT of 02/05/2017. Signed by Choco Schneider MD 04/26/2017 09:06 A
== END 2017-04-25 17:05 | disposition home or self-care (01) ==
LOC: M ED 10:19
DX: J44.9 Chronic obstructive pulmonary disease, unspecified (principal); S22.070A Wedge compression fracture of T9-T10 vertebra, initial encounter for closed fracture; X58.XXXA Exposure to other specified factors, initial encounter; Y92.89 Other specified places as the place of occurrence of the external cause; Y93.89 Activity, other specified; Y99.8 Other external cause status; I10 Essential (primary) hypertension; G47.30 Sleep apnea, unspecified; M48.00 Spinal stenosis, site unspecified; F41.9 Anxiety disorder, unspecified; F33.9 Major depressive disorder, recurrent, unspecified; I25.2 Old myocardial infarction; Z79.899 Other long term (current) drug therapy; Z79.01 Long term (current) use of anticoagulants; Z88.8 Allergy status to other drugs, medicaments and biological substances; Z88.1 Allergy status to other antibiotic agents; Z95.2 Presence of prosthetic heart valve; Z95.5 Presence of coronary angioplasty implant and graft; Z86.79 Personal history of other diseases of the circulatory system; Z87.442 Personal history of urinary calculi; Z86.73 Personal history of transient ischemic attack (TIA), and cerebral infarction without residual deficits; Z87.891 Personal history of nicotine dependence
CPT/HCPCS: 36415; 71010; 71275; 74174; 80048; 80076; 81001; 82550; 82553; 83605; 83690; 84484; 85025; 85610; 87070; 87077; 87186; 87205; 93005; 93041; 94640; 99285; J2930; Q9967

== ENCOUNTER → 2017-06-10 | Outpatient (CLI) | payer MEDICARE, OTHER | LOC: M SMT 13:09 | DX: S22.079A Unspecified fracture of T9-T10 vertebra, initial encounter for closed fracture (principal); Z87.310 Personal history of (healed) osteoporosis fracture; X58.XXXA Exposure to other specified factors, initial encounter; Y92.9 Unspecified place or not applicable; Y93.9 Activity, unspecified; Y99.8 Other external cause status | CPT/HCPCS: 72072 ==

== ENCOUNTER → 2017-06-28 | Outpatient (CLI) | payer MEDICARE, OTHER | LOC: M WHC 08:58 | DX: M80.88XS Other osteoporosis with current pathological fracture, vertebra(e), sequela (principal); Z79.52 Long term (current) use of systemic steroids | CPT/HCPCS: 77080 ==

== ENCOUNTER → 2017-07-12 | Outpatient (CLI) | payer MEDICARE, OTHER ==
[2017-07-12 13:37] LABS: BASO % 0.3 % (0.0-1.0); EOS # 0.2 10^3/uL (0.0-0.50); EOS % 2.3 % (0.0-3.0); HEMATOCRIT 44.7 % (42.0-52.0); HEMOGLOBIN 15.3 g/dl (14.0-18.0); IMMATURE GRANULOCYTE % 0.2 % (0-0); MEAN CORPUSCULAR HEMOGLOBIN 32.2 pg (27.0-33.0); MEAN CORPUSCULAR HGB CONC 34.2 g/dl (32.0-36.5); MEAN CORPUSCULAR VOLUME 94.1 fl (80.0-96.0); MONO # 0.9 10^3/uL (0.0-0.8); MONO % 9.5 % (0.0-5.0); NEUTROPHILS # 6.5 10^3/uL (1.8-7.7); NEUTROPHILS % 66.7 % (36.0-66.0); PLATELET COUNT, AUTOMATED 362 10^3/uL (150-450); RED BLOOD COUNT 4.75 10^6/uL (4.30-6.10); RED CELL DISTRIBUTION WIDTH 12.5 % (11.5-14.5); WHITE BLOOD COUNT 9.7 10^3/uL (4.0-10.0)
[2017-07-12 14:47] LABS: IMMUNOGLOBULIN E 7.6 IU/ML (<100)
== END ==
LOC: M SMT 09:41
DX: J44.9 Chronic obstructive pulmonary disease, unspecified (principal); Z91.048 Other nonmedicinal substance allergy status
CPT/HCPCS: 82785

== ENCOUNTER → 2017-09-22 | Outpatient (CLI) | payer MEDICARE, OTHER ==
[2017-09-22 13:52] LABS: BASO # 0.1 10^3/uL (0.0-0.2); BASO % 0.9 % (0.0-1.0); EOS # 0.2 10^3/uL (0.0-0.50); EOS % 1.7 % (0.0-3.0); HEMATOCRIT 41.8 % (42.0-52.0); HEMOGLOBIN 14.1 g/dl (13.5-17.5); IMMATURE GRANULOCYTE # 0.1 10^3/uL (0-0); IMMATURE GRANULOCYTE % 0.8 % (0-3.0); LYMPH # 3.3 10^3/uL (1.5-4.5); LYMPH % 32.7 % (24.0-44.0); MEAN CORPUSCULAR HEMOGLOBIN 32.6 pg (27.0-33.0); MEAN CORPUSCULAR HGB CONC 33.7 g/dl (32.0-36.5); MEAN CORPUSCULAR VOLUME 96.5 fl (80.0-96.0); MONO # 0.9 10^3/uL (0.0-0.8); MONO % 8.8 % (0.0-5.0); NEUTROPHILS # 5.6 10^3/uL (1.8-7.7); NEUTROPHILS % 55.1 % (36.0-66.0); PLATELET COUNT, AUTOMATED 324 10^3/uL (150-450); RED BLOOD COUNT 4.33 10^6/uL (4.30-6.10); RED CELL DISTRIBUTION WIDTH 13.2 % (11.5-14.5); WHITE BLOOD COUNT 10.1 10^3/uL (4.0-10.0)
[2017-09-22 14:18] LABS: ALBUMIN 3.8 GM/DL (3.2-5.2); ALBUMIN/GLOBULIN RATIO 1.06 (1.00-1.93); ALKALINE PHOSPHATASE 95 U/L (45-117); ALT/SGPT 36 U/L (12-78); ANION GAP 5 MEQ/L (8-16); AST/SGOT 21 U/L (7-37); BILIRUBIN,TOTAL 0.3 MG/DL (0.2-1.0); BLOOD UREA NITROGEN 10 MG/DL (7-18); CALCIUM LEVEL 9.5 MG/DL (8.8-10.2); CARBON DIOXIDE LEVEL 28 MEQ/L (21-32); CHLORIDE LEVEL 106 MEQ/L (98-107); CREATININE FOR GFR 0.98 MG/DL (0.70-1.30); GLOMERULAR FILTRATION RATE > 60.0 (>49); GLUCOSE, FASTING 79 MG/DL (70-100); IMMUNOGLOBULIN G 1140 MG/DL (681-1648); POTASSIUM SERUM 4.2 MEQ/L (3.5-5.1); SODIUM LEVEL 139 MEQ/L (136-145); TOTAL PROTEIN 7.4 GM/DL (6.4-8.2)
== END ==
LOC: M SMT 08:49
DX: D83.9 Common variable immunodeficiency, unspecified (principal)
CPT/HCPCS: 80053

== ENCOUNTER → 2017-10-18 | Outpatient (REF) | payer MEDICARE, OTHER | LOC: M SFHCPLAZ 15:33 | DX: J44.1 Chronic obstructive pulmonary disease with (acute) exacerbation (principal) | CPT/HCPCS: 87186; 87205 ==

== ENCOUNTER → 2017-11-16 | Outpatient (CLI) | payer MEDICARE, OTHER | LOC: M RAD 12:06 | DX: I70.213 Atherosclerosis of native arteries of extremities with intermittent claudication, bilateral legs (principal); Z87.891 Personal history of nicotine dependence; I65.23 Occlusion and stenosis of bilateral carotid arteries | CPT/HCPCS: 93880 ==

== ENCOUNTER → 2017-11-26 | Outpatient (CLI) | payer MEDICARE, OTHER | LOC: M CARPUL 09:10 | DX: I25.10 Atherosclerotic heart disease of native coronary artery without angina pectoris (principal); J42 Unspecified chronic bronchitis; Z95.2 Presence of prosthetic heart valve | CPT/HCPCS: 93306 ==

== ENCOUNTER → 2017-11-30 | Outpatient (REF) | payer MEDICARE, OTHER | LOC: M LAB REF 17:12 | DX: J44.1 Chronic obstructive pulmonary disease with (acute) exacerbation (principal) | CPT/HCPCS: 87186 ==

== ENCOUNTER → 2017-12-01 | Outpatient (CLI) | payer MEDICARE, OTHER | LOC: M RAD 08:05 | DX: J44.9 Chronic obstructive pulmonary disease, unspecified (principal) | CPT/HCPCS: 71250 ==

== ENCOUNTER 2017-12-09 16:43 | Inpatient (IN) | payer MEDICARE, OTHER ==
[2017-12-08] MEDS: CEFDINIR 300 MG CAP (OMNICEF) PO (21:00)
[2017-12-09] MEDS: CEFDINIR 300 MG CAP (OMNICEF) PO ×3 (09:00→23:39)
[~2017-12-09 16:43] MED LIST changes: -/ADVA50050 IN; -/ESOM40CA OR; -/GLYB5TA OR; -/MOXI40TA PO; -/TIOT18INH INH; -ACET20VL INH; -ACET65TA OR; -ADVAIR DISKUS 250/50 INH; -ALBU83IN IN; -ALBU83IN INH; -ALBUTEROL INH; -ALLE25CA OR; -ASTE0.15; -ASTELIN; -ASTEPRO NASAL SPRAY; -AVEL1TAB3 PO; -AZIT-12 PO; -AZIT500T2 PO; -B-12100010 PO; -BABY81CH OR; -BACITAB PO; -BACT800T OR; -BACT800T5 PO; -BIAX500T OR; +BUDESONIDE 0.5 MG/2 ML INHALATION SUSPENSION INH; -CEFD1CAP8 PO; -CEFD300CAP PO; -CEFT1INJ65 IV; -CEFT2ADD IV; -CEFT2INJ IV; -CEFT500T OR; -CELE10TA PO; -CELE20TA PO; -CEPA1LOZ2 PO; -CETI10TA PO; -COMBAER6 INH; -COMBVENT INH; -DALI1TAB2 PO; -DELT1TAB PO; -FERR325T OR; -FERR325T3 PO; -FISHCAP PO; -FLAG500T PO; -FLUC10TA OR; -FLUC10TA PO; -FLUC200T2 PO; -FOLI1TAB OR; -FOLI1TAB4 PO; -GLYB25TA PO; -GUAI1200 PO; -GUAI400T6 PO; -IMOD2TAB16 PO; -INSULANT SC; -IPRA2IN INH; -IRON CR PO; -KETO0.4S OP; -KETO5OPD OD; -LASI20TA PO; -LEVA750T7 PO; -LIPI80TA PO; -LIVA2TAB PO; -LOPE2CAP PO; -LOPE2TAB3 PO; -LOPE2TAB5 PO; -LOPR50TA OR; -LOPRESSOR OR; -MAGN250T7 PO; -MEGA D PO; -MEGA RED OMEGA PO; -META800T82 PO; -METH125VL IM; -METO50TA2 PO; -METO50TA4 OR; -MONT10TA2 PO; -MUCI1TAB18 PO; -MUCI600T34 PO; -MUCI600T37 PO; -MUCINEX DM PO; -MYCOSTATIN SS; -NEUR300C OR; -NITR0.4S SL; -NITR4TASL SL; -NYAM10003 SS; -OCTAGAM IV; -OMEP40CA2 PO; -OXYGEN; -PERCOCET PO; -PERF20NE2 INH; -PERFOROMIST INH; -PLAV1TAB2 PO; -PLAV75TA2 OR; -PRAV20TA2 OR; -PRED10TA PO; -PRED10TA2 OR; -PRED10TA2 PO; -PRED20TA OR; -PRED20TA PO; -PRED50TA OR; -PRED50TA PO; -PREDNISOLONE; -PREDOPD; -PROBCAP4 PO; -PULM0.5S IN; -PULM0.5S INH; -PULM1SUS INH; -RAMI25CA OR; -RANI1TAB6 PO; -RANI300T OR; -RANI300T PO; -ROCE1INJ IV; -SALI0.9I2 IV; -SENN1TAB2 PO; -SIME80TA PO; -SKEL800T5 OR; -SKEL800T97 PO; -SODI3NEB INH; -THEO1CAP2 PO; -THEO200T7 OR; -TIOT18INH INH; -TOPR50TA OR; -TOPR50TA PO; -TRAV0.00; -TUDO1AER2 INH; -TUDORZA PRESSAIR INH; -TUSS1CAP5 PO; -TUSSSUS6 PO; -TYLE325T5 PO; -VENTAER IN; -VENTOLIN; -VENTOLIN INH; -VICO5TAB OR; -VIT D 2000 PO; -VIT D 4000 PO; -VITA10006 PO; -VITA2000 PO; -VITA250L PO; -VITA500T OR; -VITAMIN D 2 PO; -VITATAB11 PO; -ZANT300T OR; -ZITH250T OR; -ZOCO20TA PO; -[UNRECOGNIZED DRUG - CODE] IV; -[UNRECOGNIZED DRUG - CODE] IV; -[UNRECOGNIZED DRUG - CODE] PO; -[UNRECOGNIZED DRUG - CODE] SC; -[UNRECOGNIZED DRUG - OTHER]; -[UNRECOGNIZED DRUG - OTHER]; -daliresp PO; -loperamide PO; -mucinex PO; -omnicef PO
[2017-12-09] MEDS ORDERED: methylPREDNISolone INJ 125 MG/2 ML VIAL (J2930) IV (18:00)
[2017-12-09] MEDS: IPRATROPIUM 0.5MG/ALBUTEROL 2.5MG INH SOL UD 3ML (DUONEB)(J7620) NEB ×3 (18:12→18:58)
[2017-12-09 18:27] LABS: ABG BASE EXCESS 0.1 (-2.0-2.0); ABG HCO3 23.2 MEQ/L (22.0-26.0); ABG O2 SATURATION 78.5 % (95.0-99.0); ABG PARTIAL PRESSURE CO2 33.4 mmHg (35.0-45.0); ABG STANDARD HCO3 24.1 MEQ/L (22.0-26.0); ABG TOTAL CO2 24.2 MEQ/L (23.0-31.0); ABG pH (ARTERIAL) 7.459 UNITS (7.350-7.450)
[2017-12-09 18:40] LABS: ABG PARTIAL PRESSURE O2 41.9 mmHg (75.0-100.0)
[2017-12-09] MEDS: methylPREDNISolone INJ 40 MG/1 ML VIAL (J2920) IV (18:52)
[2017-12-09 18:55] LABS: BASO % 0.2 % (0.0-1.0); HEMATOCRIT 41.3 % (42.0-52.0); IMMATURE GRANULOCYTE % 1.8 % (0-3.0); LYMPH # 0.5 10^3/uL (1.5-4.5); LYMPH % 2.9 % (24.0-44.0); MEAN CORPUSCULAR HEMOGLOBIN 33.6 pg (27.0-33.0); MEAN CORPUSCULAR HGB CONC 36.3 g/dl (32.0-36.5); MEAN CORPUSCULAR VOLUME 92.4 fl (80.0-96.0); MONO # 0.3 10^3/uL (0.0-0.8); MONO % 1.5 % (0.0-5.0); NEUTROPHILS # 15.3 10^3/uL (1.8-7.7); NEUTROPHILS % 93.6 % (36.0-66.0); PLATELET COUNT, AUTOMATED 271 10^3/uL (150-450); RED BLOOD COUNT 4.47 10^6/uL (4.30-6.10); RED CELL DISTRIBUTION WIDTH 12.6 % (11.5-14.5); WHITE BLOOD COUNT 16.3 10^3/uL (4.0-10.0)
[2017-12-09 19:04] LABS: INR 0.84; PROTHROMBIN TIME 11.6 SECONDS (12.1-14.4)
[2017-12-09 19:28] LABS: ALBUMIN 3.5 GM/DL (3.2-5.2); ALKALINE PHOSPHATASE 84 U/L (45-117); ALT/SGPT 58 U/L (12-78); ANION GAP 15 MEQ/L (8-16); AST/SGOT 17 U/L (7-37); BILIRUBIN,DIRECT 0.1 MG/DL (0.0-0.2); BILIRUBIN,TOTAL 0.4 MG/DL (0.2-1.0); BLOOD UREA NITROGEN 28 MG/DL (7-18); CALCIUM LEVEL 8.7 MG/DL (8.8-10.2); CARBON DIOXIDE LEVEL 22 MEQ/L (21-32); CHLORIDE LEVEL 94 MEQ/L (98-107); CK-MB VALUE MASS 1.8 NG/ML (<3.6); CPK CREATINE PHOSPHOKINASE 61 U/L (39-308); CREATININE FOR GFR 1.14 MG/DL (0.70-1.30); GLOMERULAR FILTRATION RATE > 60.0 (>49); GLUCOSE, FASTING 344 MG/DL (70-100); MB/CK RELATIVE INDEX 2.95 (< OR =4); NT-PRO BNP 120 PG/ML (<125); POTASSIUM SERUM 4.8 MEQ/L (3.5-5.1); SODIUM LEVEL 131 MEQ/L (136-145); TROPONIN I < 0.02 NG/ML (< 0.10)
[2017-12-09 19:37] LABS: LACTIC ACID SEPSIS PROTOCOL 5.7 MMOL/L (0.4-2.0)
[2017-12-09] MEDS: BUDESONIDE 0.5 MG/2 ML INHALATION SUSPENSION INH (20:00)
[2017-12-09] MEDS: FORMOTEROL FUMARATE 20 MCG/2 ML INHALATION SOLUTION (PERFOROMIST) INH (20:00)
[2017-12-09] MEDS: IPRATROPIUM 0.02% SOLN 0.5MG/2.5 ML NEB INH (20:00)
[2017-12-09] MEDS ORDERED: GLUCAGON FOR INJ 1 MG VIAL (J1610) SC (20:45)
[2017-12-09] MEDS: MAGNESIUM OXIDE 400 MG TAB (MAG-OX) PO (20:45)
[2017-12-09] MEDS ORDERED: NITROGLYCERIN 0.4 MG SUBL TABLET SL (20:45)
[2017-12-09] MEDS ORDERED: GLUCOSE 4 GM CHEW TABLET PO (20:45)
[2017-12-09] MEDS ORDERED: BISACODYL 5 MG TAB PO (20:45)
[2017-12-09] MEDS ORDERED: DEXTROSE 50% 50 ML SYRINGE IV (20:45)
[2017-12-09] MEDS: ALBUTEROL SULFATE 2.5 MG/0.5 ML INH NEB SOLN INH (21:00)
[2017-12-09 22:16] LABS: ABG BASE EXCESS -0.6 (-2.0-2.0); ABG HCO3 21.8 MEQ/L (22.0-26.0); ABG O2 SATURATION 96.2 % (95.0-99.0); ABG PARTIAL PRESSURE CO2 30.3 mmHg (35.0-45.0); ABG PARTIAL PRESSURE O2 81.7 mmHg (75.0-100.0); ABG STANDARD HCO3 23.9 MEQ/L (22.0-26.0); ABG TOTAL CO2 22.7 MEQ/L (23.0-31.0); ABG pH (ARTERIAL) 7.475 UNITS (7.350-7.450)
[2017-12-09] MEDS: FAMOTIDINE 20 MG TAB PO (23:39)
[2017-12-09] MEDS: guaiFENesin 200 MG TAB PO (23:39)
[2017-12-09] MEDS: MONTELUKAST 10 MG TAB PO (23:39)
[2017-12-09] MEDS: ATORVASTATIN 20 MG TAB PO (23:40)
[2017-12-09] MEDS: CitaloPRAM (CeleXA) 20 MG TAB PO (23:40)
[2017-12-09] MEDS: CLOPIDOGREL 75 MG TAB PO (23:40)
[2017-12-09] MEDS: FERROUS SULFATE 325MG TAB PO (23:40)
[2017-12-09] MEDS: HEPARIN SOD (PORCINE) 5000 UNITS/ML VIAL SC (23:41)
[2017-12-10 04:28] LABS: BASO % 0.2 % (0.0-1.0); HEMATOCRIT 40.4 % (42.0-52.0); HEMOGLOBIN 14.6 g/dl (13.5-17.5); IMMATURE GRANULOCYTE % 1.8 % (0-3.0); LYMPH # 0.6 10^3/uL (1.5-4.5); MEAN CORPUSCULAR HEMOGLOBIN 33.3 pg (27.0-33.0); MEAN CORPUSCULAR HGB CONC 36.1 g/dl (32.0-36.5); MONO # 0.5 10^3/uL (0.0-0.8); MONO % 3.2 % (0.0-5.0); NEUTROPHILS # 13.1 10^3/uL (1.8-7.7); NEUTROPHILS % 90.8 % (36.0-66.0); PLATELET COUNT, AUTOMATED 254 10^3/uL (150-450); RED BLOOD COUNT 4.39 10^6/uL (4.30-6.10); RED CELL DISTRIBUTION WIDTH 12.6 % (11.5-14.5); WHITE BLOOD COUNT 14.5 10^3/uL (4.0-10.0)
[2017-12-10 04:46] LABS: ESTIMATED AVERAGE GLUCOSE 160 MG/DL (60-110); HEMOGLOBIN A1c 7.2 %
[2017-12-10 05:04] LABS: ANION GAP 11 MEQ/L (8-16); BLOOD UREA NITROGEN 27 MG/DL (7-18); CALCIUM LEVEL 8.4 MG/DL (8.8-10.2); CARBON DIOXIDE LEVEL 26 MEQ/L (21-32); CHLORIDE LEVEL 95 MEQ/L (98-107); CREATININE FOR GFR 1.04 MG/DL (0.70-1.30); GLOMERULAR FILTRATION RATE > 60.0 (>49); GLUCOSE, FASTING 248 MG/DL (70-100); POTASSIUM SERUM 4.6 MEQ/L (3.5-5.1); SODIUM LEVEL 132 MEQ/L (136-145); THYROID STIMULATING HORMONE 0.439 uIU/ML (0.358-3.740)
[2017-12-10 06:05] LABS: ABG BASE EXCESS 1.3 (-2.0-2.0); ABG HCO3 24.5 MEQ/L (22.0-26.0); ABG PARTIAL PRESSURE CO2 34.7 mmHg (35.0-45.0); ABG PARTIAL PRESSURE O2 88.3 mmHg (75.0-100.0); ABG STANDARD HCO3 25.6 MEQ/L (22.0-26.0); ABG TOTAL CO2 25.6 MEQ/L (23.0-31.0); ABG pH (ARTERIAL) 7.467 UNITS (7.350-7.450)
[2017-12-10] MEDS: HEPARIN SOD (PORCINE) 5000 UNITS/ML VIAL SC ×3 (07:06→21:09)
[2017-12-10] MEDS: BUDESONIDE 0.5 MG/2 ML INHALATION SUSPENSION INH ×2 (07:46→19:33)
[2017-12-10] MEDS: ALBUTEROL SULFATE 2.5 MG/0.5 ML INH NEB SOLN INH ×4 (07:46→19:33)
[2017-12-10] MEDS: IPRATROPIUM 0.02% SOLN 0.5MG/2.5 ML NEB INH ×3 (07:46→19:33)
[2017-12-10] MEDS: FORMOTEROL FUMARATE 20 MCG/2 ML INHALATION SOLUTION (PERFOROMIST) INH ×2 (07:46→19:32)
[2017-12-10] MEDS: CEFDINIR 300 MG CAP (OMNICEF) PO ×2 (08:43→21:09)
[2017-12-10] MEDS: HumaLOG INSULIN (NovoLOG) PER UNIT SC ×3 (08:43→16:33)
[2017-12-10] MEDS: predniSONE 20 MG TAB PO (08:43)
[2017-12-10] MEDS: guaiFENesin 200 MG TAB PO (08:44)
[2017-12-10] MEDS: OMEPRAZOLE 20 MG CAP PO (08:44)
[2017-12-10] MEDS: FOLIC ACID 1 MG TAB PO (08:44)
[2017-12-10] MEDS: VITAMIN D 1,000 INTERNATIONAL UNITS TABLET PO (08:44)
[2017-12-10] MEDS: VITAMIN B COMPLEX/VIT C CAP PO (08:44)
[2017-12-10] MEDS: ASCORBIC ACID 500 MG TAB PO (08:44)
[2017-12-10] MEDS: LACTOBACILLUS ACIDOPHILUS CAP (BACID) PO (08:44)
[2017-12-10] MEDS: NYSTATIN 500,000 U/5 ML SUSP UDC PO (08:45)
[2017-12-10 11:55] LABS: BEDSIDE GLUCOSE 227 MG/DL (80-115)
[2017-12-10] MEDS: FERROUS SULFATE 325MG TAB PO ×2 (12:21→21:08)
[2017-12-10] MEDS: FLUCONAZOLE 100 MG TAB PO (13:47)
[2017-12-10 16:19] LABS: BEDSIDE GLUCOSE 335 MG/DL (80-115)
[2017-12-10] MEDS: CLOTRIMAZOLE 10 MG TROCHE MT (16:33)
[2017-12-10 19:47] LABS: BEDSIDE GLUCOSE 312 MG/DL (80-115)
[2017-12-10] MEDS: MONTELUKAST 10 MG TAB PO (21:08)
[2017-12-10] MEDS: CitaloPRAM (CeleXA) 20 MG TAB PO (21:08)
[2017-12-10] MEDS: FAMOTIDINE 20 MG TAB PO (21:08)
[2017-12-10] MEDS: SIMBRINZA OU (21:09)
[2017-12-10] MEDS: guaiFENesin ER 600 MG TAB PO (21:09)
[2017-12-10] MEDS: CLOPIDOGREL 75 MG TAB PO (21:09)
[2017-12-10] MEDS: methylPREDNISolone INJ 40 MG/1 ML VIAL (J2920) IV (21:09)
[2017-12-11] MEDS: HEPARIN SOD (PORCINE) 5000 UNITS/ML VIAL SC ×3 (05:33→21:07)
[2017-12-11 06:34] LABS: BEDSIDE GLUCOSE 286 MG/DL (80-115)
[2017-12-11] MEDS: FORMOTEROL FUMARATE 20 MCG/2 ML INHALATION SOLUTION (PERFOROMIST) INH ×2 (07:10→19:36)
[2017-12-11] MEDS: BUDESONIDE 0.5 MG/2 ML INHALATION SUSPENSION INH ×2 (07:12→19:36)
[2017-12-11] MEDS: ALBUTEROL SULFATE 2.5 MG/0.5 ML INH NEB SOLN INH ×4 (08:00→19:36)
[2017-12-11] MEDS: IPRATROPIUM 0.02% SOLN 0.5MG/2.5 ML NEB INH ×3 (08:00→19:37)
[2017-12-11] MEDS: LACTOBACILLUS ACIDOPHILUS CAP (BACID) PO (08:36)
[2017-12-11] MEDS: FOLIC ACID 1 MG TAB PO (08:36)
[2017-12-11] MEDS: FLUCONAZOLE 100 MG TAB PO (08:36)
[2017-12-11] MEDS: CEFDINIR 300 MG CAP (OMNICEF) PO ×2 (08:36→21:06)
[2017-12-11] MEDS: ASCORBIC ACID 500 MG TAB PO (08:36)
[2017-12-11] MEDS: VITAMIN B COMPLEX/VIT C CAP PO (08:36)
[2017-12-11] MEDS: guaiFENesin ER 600 MG TAB PO ×2 (08:36→21:06)
[2017-12-11] MEDS: predniSONE 20 MG TAB PO (08:37)
[2017-12-11] MEDS: VITAMIN D 1,000 INTERNATIONAL UNITS TABLET PO (08:37)
[2017-12-11] MEDS: OMEPRAZOLE 20 MG CAP PO (08:37)
[2017-12-11] MEDS: NYSTATIN 500,000 U/5 ML SUSP UDC PO (08:37)
[2017-12-11] MEDS: SIMBRINZA OU ×2 (08:38→21:06)
[2017-12-11] MEDS: CLOTRIMAZOLE 10 MG TROCHE MT (08:38)
[2017-12-11] MEDS: HumaLOG INSULIN (NovoLOG) PER UNIT SC ×3 (08:39→17:30)
[2017-12-11 12:30] LABS: BEDSIDE GLUCOSE 285 MG/DL (80-115)
[2017-12-11] MEDS: FERROUS SULFATE 325MG TAB PO ×2 (12:58→21:06)
[2017-12-11] MEDS ORDERED: SCOPOLAMINE 1MG TRANSDERMAL PATCH TOP (14:00)
[2017-12-11] MEDS: CLOPIDOGREL 75 MG TAB PO (21:06)
[2017-12-11] MEDS: MONTELUKAST 10 MG TAB PO (21:06)
[2017-12-11] MEDS: FAMOTIDINE 20 MG TAB PO (21:06)
[2017-12-11] MEDS: CitaloPRAM (CeleXA) 20 MG TAB PO (21:06)
[2017-12-12] MEDS: HEPARIN SOD (PORCINE) 5000 UNITS/ML VIAL SC ×3 (05:31→21:41)
[2017-12-12] MEDS: HumaLOG INSULIN (NovoLOG) PER UNIT SC ×3 (07:30→17:33)
[2017-12-12] MEDS: ALBUTEROL SULFATE 2.5 MG/0.5 ML INH NEB SOLN INH ×4 (08:00→20:00)
[2017-12-12] MEDS: VITAMIN D 1,000 INTERNATIONAL UNITS TABLET PO (08:10)
[2017-12-12] MEDS: NYSTATIN 500,000 U/5 ML SUSP UDC PO (08:10)
[2017-12-12] MEDS: SIMBRINZA OU ×2 (08:10→21:42)
[2017-12-12] MEDS: LORazepam 1 MG TAB PO (08:10)
[2017-12-12] MEDS: LACTOBACILLUS ACIDOPHILUS CAP (BACID) PO (08:10)
[2017-12-12] MEDS: FOLIC ACID 1 MG TAB PO (08:10)
[2017-12-12] MEDS: OMEPRAZOLE 20 MG CAP PO (08:11)
[2017-12-12] MEDS: FLUCONAZOLE 100 MG TAB PO (08:11)
[2017-12-12] MEDS: guaiFENesin ER 600 MG TAB PO ×2 (08:11→21:42)
[2017-12-12] MEDS: predniSONE 20 MG TAB PO (08:11)
[2017-12-12] MEDS: ASCORBIC ACID 500 MG TAB PO (08:12)
[2017-12-12] MEDS: CEFDINIR 300 MG CAP (OMNICEF) PO ×2 (08:12→21:42)
[2017-12-12] MEDS: VITAMIN B COMPLEX/VIT C CAP PO (08:13)
[2017-12-12] MEDS: IPRATROPIUM 0.02% SOLN 0.5MG/2.5 ML NEB INH ×3 (08:20→20:49)
[2017-12-12] MEDS: BUDESONIDE 0.5 MG/2 ML INHALATION SUSPENSION INH ×2 (08:20→20:49)
[2017-12-12] MEDS: FORMOTEROL FUMARATE 20 MCG/2 ML INHALATION SOLUTION (PERFOROMIST) INH ×2 (08:20→20:49)
[2017-12-12] MEDS: ACETAMINOPHEN TAB 650MG DOSE (2X325MG) PO (12:34)
[2017-12-12] MEDS: FERROUS SULFATE 325MG TAB PO ×2 (12:34→21:42)
[2017-12-12 16:02] LABS: BEDSIDE GLUCOSE 347 MG/DL (80-115)
[2017-12-12] MEDS: CLOPIDOGREL 75 MG TAB PO (21:42)
[2017-12-12] MEDS: MONTELUKAST 10 MG TAB PO (21:42)
[2017-12-12] MEDS: FAMOTIDINE 20 MG TAB PO (21:42)
[2017-12-12] MEDS: CitaloPRAM (CeleXA) 20 MG TAB PO (21:42)
[2017-12-12] MEDS: MORPHINE 10MG/0.5ML ORAL CONCENTRATE SOLUTION U/D SL (21:44)
[2017-12-13] MEDS: HEPARIN SOD (PORCINE) 5000 UNITS/ML VIAL SC (05:45)
[2017-12-13] MEDS: ALBUTEROL SULFATE 2.5 MG/0.5 ML INH NEB SOLN INH ×2 (08:00→12:00)
[2017-12-13 08:19] LABS: BEDSIDE GLUCOSE 175 MG/DL (80-115)
[2017-12-13] MEDS: IPRATROPIUM 0.02% SOLN 0.5MG/2.5 ML NEB INH (08:34)
[2017-12-13] MEDS: BUDESONIDE 0.5 MG/2 ML INHALATION SUSPENSION INH (08:34)
[2017-12-13] MEDS: FORMOTEROL FUMARATE 20 MCG/2 ML INHALATION SOLUTION (PERFOROMIST) INH (08:34)
[2017-12-13] MEDS: HumaLOG INSULIN (NovoLOG) PER UNIT SC ×2 (09:17→13:33)
[2017-12-13] MEDS: NYSTATIN 500,000 U/5 ML SUSP UDC PO (09:17)
[2017-12-13] MEDS: LACTOBACILLUS ACIDOPHILUS CAP (BACID) PO (09:17)
[2017-12-13] MEDS: predniSONE 20 MG TAB PO (09:18)
[2017-12-13] MEDS: VITAMIN B COMPLEX/VIT C CAP PO (09:18)
[2017-12-13] MEDS: ASCORBIC ACID 500 MG TAB PO (09:18)
[2017-12-13] MEDS: VITAMIN D 1,000 INTERNATIONAL UNITS TABLET PO (09:18)
[2017-12-13] MEDS: FLUCONAZOLE 100 MG TAB PO (09:18)
[2017-12-13] MEDS: CEFDINIR 300 MG CAP (OMNICEF) PO (09:18)
[2017-12-13] MEDS: OMEPRAZOLE 20 MG CAP PO (09:19)
[2017-12-13] MEDS: FOLIC ACID 1 MG TAB PO (09:19)
[2017-12-13] MEDS: SIMBRINZA OU (09:20)
[2017-12-13] MEDS: guaiFENesin ER 600 MG TAB PO (09:20)
[2017-12-13 11:49] LABS: BEDSIDE GLUCOSE 191 MG/DL (80-115)
[2017-12-13] MEDS: IPRATROPIUM 0.5MG/ALBUTEROL 2.5MG INH SOL UD 3ML (DUONEB)(J7620) INH (12:23)
[2017-12-13] MEDS: FERROUS SULFATE 325MG TAB PO (13:33)
== END 2017-12-13 14:18 | disposition home health service (06) | DRG 189 ==
LOC: M MSPAV 12-10 16:45 → M ED 16:43 → M ED INP 20:43 → M ICU 23:15
DX: J96.21 Acute and chronic respiratory failure with hypoxia (principal); J44.1 Chronic obstructive pulmonary disease with (acute) exacerbation; E87.2 Acidosis; D83.9 Common variable immunodeficiency, unspecified; D50.9 Iron deficiency anemia, unspecified; I25.10 Atherosclerotic heart disease of native coronary artery without angina pectoris; G47.33 Obstructive sleep apnea (adult) (pediatric); F41.9 Anxiety disorder, unspecified; T38.0X5A Adverse effect of glucocorticoids and synthetic analogues, initial encounter; E55.9 Vitamin D deficiency, unspecified; Z51.5 Encounter for palliative care; R73.9 Hyperglycemia, unspecified; E78.5 Hyperlipidemia, unspecified; Z66 Do not resuscitate; Z95.3 Presence of xenogenic heart valve; Z99.81 Dependence on supplemental oxygen; Z95.5 Presence of coronary angioplasty implant and graft; Z87.891 Personal history of nicotine dependence; Z79.52 Long term (current) use of systemic steroids; Z79.84 Long term (current) use of oral hypoglycemic drugs; Z79.899 Other long term (current) drug therapy; Z88.6 Allergy status to analgesic agent; Z88.8 Allergy status to other drugs, medicaments and biological substances; Z88.1 Allergy status to other antibiotic agents

== ENCOUNTER → 2018-01-05 | Outpatient (CLI) | payer MEDICARE, OTHER ==
[~2018-01-05] MED LIST changes: -BUDESONIDE 0.5 MG/2 ML INHALATION SUSPENSION INH; +HEPARIN 1,000 UNITS/ML 10ML VIAL (FOR RADIOLOGY& DIALYSIS ONLY) As Ordered; +ISOVUE-300 61% 50ML VIAL (Q9967) As Ordered; +MIDAZOLAM INJ 2 MG/2 ML VIAL (J2250) As Ordered; +fentaNYL 100 MCG/2 ML INJECTION (J3010) As Ordered
== END | disposition home or self-care (01) ==
LOC: M IRPRO 06:35
DX: I70.212 Atherosclerosis of native arteries of extremities with intermittent claudication, left leg (principal); I70.92 Chronic total occlusion of artery of the extremities; I25.10 Atherosclerotic heart disease of native coronary artery without angina pectoris; J44.9 Chronic obstructive pulmonary disease, unspecified; E11.9 Type 2 diabetes mellitus without complications
CPT/HCPCS: 36247

== ENCOUNTER → 2018-01-27 | Outpatient (REF) | payer MEDICARE, OTHER | LOC: M LAB REF 13:24 | DX: J44.1 Chronic obstructive pulmonary disease with (acute) exacerbation (principal) | CPT/HCPCS: 87205 ==

== ENCOUNTER → 2018-02-17 | Outpatient (REF) | payer MEDICARE, OTHER ==
[2018-02-17 15:09] LABS: BASO # 0.1 10^3/uL (0.0-0.2); BASO % 0.5 % (0.0-1.0); EOS # 0.1 10^3/uL (0.0-0.50); EOS % 1.2 % (0.0-3.0); HEMOGLOBIN 13.7 g/dl (13.5-17.5); LYMPH # 1.1 10^3/uL (1.5-4.5); LYMPH % 10.9 % (24.0-44.0); MEAN CORPUSCULAR HEMOGLOBIN 33.4 pg (27.0-33.0); MEAN CORPUSCULAR HGB CONC 33.4 g/dl (32.0-36.5); MONO # 0.7 10^3/uL (0.0-0.8); MONO % 6.8 % (0.0-5.0); NEUTROPHILS # 7.7 10^3/uL (1.8-7.7); NEUTROPHILS % 79.6 % (36.0-66.0); PLATELET COUNT, AUTOMATED 288 10^3/uL (150-450); RED CELL DISTRIBUTION WIDTH 12.7 % (11.5-14.5); WHITE BLOOD COUNT 9.7 10^3/uL (4.0-10.0)
[2018-02-17 17:06] LABS: ALBUMIN 4.1 GM/DL (3.2-5.2); ALBUMIN/GLOBULIN RATIO 1.24 (1.00-1.93); ALKALINE PHOSPHATASE 66 U/L (45-117); ALT/SGPT 44 U/L (12-78); ANION GAP 6 MEQ/L (8-16); AST/SGOT 22 U/L (7-37); BILIRUBIN,TOTAL 0.3 MG/DL (0.2-1.0); BLOOD UREA NITROGEN 14 MG/DL (7-18); CALCIUM LEVEL 9.7 MG/DL (8.8-10.2); CARBON DIOXIDE LEVEL 29 MEQ/L (21-32); CHLORIDE LEVEL 105 MEQ/L (98-107); CREATININE FOR GFR 0.95 MG/DL (0.70-1.30); GLOMERULAR FILTRATION RATE > 60.0 (>49); GLUCOSE, FASTING 99 MG/DL (70-100); IMMUNOGLOBULIN G 955 MG/DL (681-1648); POTASSIUM SERUM 4.3 MEQ/L (3.5-5.1); SODIUM LEVEL 140 MEQ/L (136-145); TOTAL PROTEIN 7.4 GM/DL (6.4-8.2)
[2018-02-17 19:08] LABS: IMMUNOGLOBULIN M < 5.3 MG/DL (40-230)
== END ==
LOC: M SFHCPLAZ 09:25
DX: D83.9 Common variable immunodeficiency, unspecified (principal)
CPT/HCPCS: 80053

== ENCOUNTER 2018-03-12 10:29 | Inpatient (IN) | payer MEDICARE, OTHER ==
[2018-03-12 11:32] LABS: BASO % 0.2 % (0.0-1.0); HEMATOCRIT 42.3 % (42.0-52.0); HEMOGLOBIN 14.5 g/dl (13.5-17.5); IMMATURE GRANULOCYTE % 1.2 % (0-3.0); MEAN CORPUSCULAR HEMOGLOBIN 32.8 pg (27.0-33.0); MEAN CORPUSCULAR HGB CONC 34.3 g/dl (32.0-36.5); MEAN CORPUSCULAR VOLUME 95.7 fl (80.0-96.0); MONO # 1.2 10^3/uL (0.0-0.8); MONO % 5.9 % (0.0-5.0); NEUTROPHILS # 17.2 10^3/uL (1.8-7.7); NEUTROPHILS % 87.7 % (36.0-66.0); PLATELET COUNT, AUTOMATED 333 10^3/uL (150-450); RED BLOOD COUNT 4.42 10^6/uL (4.30-6.10); RED CELL DISTRIBUTION WIDTH 12.2 % (11.5-14.5); WHITE BLOOD COUNT 19.5 10^3/uL (4.0-10.0)
[2018-03-12] MEDS: IPRATROPIUM 0.5MG/ALBUTEROL 2.5MG INH SOL UD 3ML (DUONEB)(J7620) NEB ×3 (11:37→12:01)
[2018-03-12] MEDS: methylPREDNISolone INJ 125 MG/2 ML VIAL (J2930) IV ×2 (11:40→20:46)
[2018-03-12 11:41] LABS: ABG BASE EXCESS 2.8 (-2.0-2.0); ABG HCO3 26.5 MEQ/L (22.0-26.0); ABG O2 SATURATION 95.6 % (95.0-99.0); ABG PARTIAL PRESSURE CO2 37.8 mmHg (35.0-45.0); ABG PARTIAL PRESSURE O2 78.1 mmHg (75.0-100.0); ABG STANDARD HCO3 26.9 MEQ/L (22.0-26.0); ABG TOTAL CO2 27.7 MEQ/L (23.0-31.0); ABG pH (ARTERIAL) 7.464 UNITS (7.350-7.450)
[2018-03-12 11:51] LABS: ANION GAP 10 MEQ/L (8-16); BLOOD UREA NITROGEN 21 MG/DL (7-18); CALCIUM LEVEL 9.7 MG/DL (8.8-10.2); CARBON DIOXIDE LEVEL 29 MEQ/L (21-32); CHLORIDE LEVEL 101 MEQ/L (98-107); CPK CREATINE PHOSPHOKINASE 76 U/L (39-308); CREATININE FOR GFR 1.07 MG/DL (0.70-1.30); GLOMERULAR FILTRATION RATE > 60.0 (>49); GLUCOSE, FASTING 134 MG/DL (70-100); MB/CK RELATIVE INDEX 5.39 (< OR =4); NT-PRO BNP 161 PG/ML (<125); POTASSIUM SERUM 4.1 MEQ/L (3.5-5.1); SODIUM LEVEL 140 MEQ/L (136-145); TROPONIN I < 0.02 NG/ML (< 0.10)
[2018-03-12 11:53] LABS: LACTIC ACID SEPSIS PROTOCOL 2.9 MMOL/L (0.4-2.0)
[2018-03-12] MEDS ORDERED: LEVALBUTEROL 1.25 MG/0.5 ML CONCENTRATE NEB NEB (12:45)
[2018-03-12] MEDS: LEVALBUTEROL 1.25 MG/0.5 ML CONCENTRATE NEB NEB ×3 (13:19→23:38)
[2018-03-12] MEDS: IPRATROPIUM 0.02% SOLN 0.5MG/2.5 ML NEB INH ×2 (14:00→20:00)
[2018-03-12] MEDS: AZITHROMYCIN 250 MG TAB PO (14:04)
[2018-03-12] MEDS ORDERED: CLOTRIMAZOLE 10 MG TROCHE MT (14:30)
[2018-03-12] MEDS ORDERED: NYSTATIN 500,000 U/5 ML SUSP UDC PO (14:30)
[2018-03-12] MEDS ORDERED: GLUCOSE 4 GM CHEW TABLET PO ×2 (14:45)
[2018-03-12] MEDS ORDERED: GLUCAGON FOR INJ 1 MG VIAL (J1610) SC ×2 (14:45)
[2018-03-12] MEDS ORDERED: DEXTROSE 50% 50 ML SYRINGE IV ×2 (14:45)
[2018-03-12 15:40] LABS: ESTIMATED AVERAGE GLUCOSE 146 MG/DL (60-110); HEMOGLOBIN A1c 6.7 %
[2018-03-12] MEDS: NS 1,000 ML IV ×2 (15:46→17:00)
[2018-03-12] MEDS ORDERED: cefTRIAXone SOD 2 GM in D5W MINI-BAG PLUS 50 ML IV (17:00)
[2018-03-12 17:11] LABS: BEDSIDE GLUCOSE 247 MG/DL (80-115)
[2018-03-12] MEDS ORDERED: HumaLOG INSULIN (NovoLOG) PER UNIT SC ×2 (17:30→21:00)
[2018-03-12] MEDS: cefTRIAXone SOD 2 GM in D5W MINI-BAG PLUS 50 ML IV (17:58)
[2018-03-12] MEDS: HumaLOG INSULIN (NovoLOG) PER UNIT SC ×2 (17:59→20:47)
[2018-03-12 18:27] LABS: CPK CREATINE PHOSPHOKINASE 60 U/L (39-308); TROPONIN I < 0.02 NG/ML (< 0.10)
[2018-03-12] MEDS: FORMOTEROL FUMARATE 20 MCG/2 ML INHALATION SOLUTION (PERFOROMIST) INH (20:00)
[2018-03-12] MEDS: BUDESONIDE 0.5 MG/2 ML INHALATION SUSPENSION INH (20:00)
[2018-03-12 20:08] LABS: BEDSIDE GLUCOSE 327 MG/DL (80-115)
[2018-03-12] MEDS: LEVEMIR (INSULIN DETEMIR) 1 UNITS/0.01ML SC (20:47)
[2018-03-12] MEDS: MONTELUKAST 10 MG TAB PO (20:47)
[2018-03-12] MEDS: CLOPIDOGREL 75 MG TAB PO (20:47)
[2018-03-12] MEDS: LATANOPROST 0.005% OPHTH SOLN 2.5 ML OU (20:48)
[2018-03-12] MEDS: guaiFENesin ER 600 MG TAB PO (20:48)
[2018-03-12] MEDS: FERROUS SULFATE 325MG TAB PO (20:48)
[2018-03-12] MEDS: CitaloPRAM (CeleXA) 20 MG TAB PO (20:48)
[2018-03-12] MEDS ORDERED: metFORMIN (GLUCOPHAGE) 500 MG TAB PO (21:00)
[2018-03-13 00:40] LABS: CPK CREATINE PHOSPHOKINASE 54 U/L (39-308); TROPONIN I < 0.02 NG/ML (< 0.10)
[2018-03-13] MEDS: methylPREDNISolone INJ 125 MG/2 ML VIAL (J2930) IV ×3 (04:09→19:58)
[2018-03-13] MEDS: LEVALBUTEROL 1.25 MG/0.5 ML CONCENTRATE NEB NEB ×5 (04:56→20:00)
[2018-03-13 06:33] LABS: HEMATOCRIT 37.9 % (42.0-52.0); HEMOGLOBIN 12.9 g/dl (13.5-17.5); MEAN CORPUSCULAR HEMOGLOBIN 32.5 pg (27.0-33.0); MEAN CORPUSCULAR VOLUME 95.5 fl (80.0-96.0); PLATELET COUNT, AUTOMATED 293 10^3/uL (150-450); RED BLOOD COUNT 3.97 10^6/uL (4.30-6.10); WHITE BLOOD COUNT 16.4 10^3/uL (4.0-10.0)
[2018-03-13 07:04] LABS: ALBUMIN 3.3 GM/DL (3.2-5.2); ANION GAP 9 MEQ/L (8-16); BLOOD UREA NITROGEN 22 MG/DL (7-18); CALCIUM LEVEL 8.3 MG/DL (8.8-10.2); CARBON DIOXIDE LEVEL 27 MEQ/L (21-32); CHLORIDE LEVEL 103 MEQ/L (98-107); CREATININE FOR GFR 0.87 MG/DL (0.70-1.30); GLOMERULAR FILTRATION RATE > 60.0 (>49); GLUCOSE, FASTING 172 MG/DL (70-100); PHOSPHORUS LEVEL 2.5 MG/DL (2.5-4.9); POTASSIUM SERUM 3.6 MEQ/L (3.5-5.1); SODIUM LEVEL 139 MEQ/L (136-145)
[2018-03-13] MEDS: IPRATROPIUM 0.02% SOLN 0.5MG/2.5 ML NEB INH ×3 (08:00→20:00)
[2018-03-13] MEDS: BUDESONIDE 0.5 MG/2 ML INHALATION SUSPENSION INH ×2 (08:09→20:00)
[2018-03-13] MEDS: FORMOTEROL FUMARATE 20 MCG/2 ML INHALATION SOLUTION (PERFOROMIST) INH ×2 (08:09→20:00)
[2018-03-13] MEDS: ASCORBIC ACID 500 MG TAB PO (08:51)
[2018-03-13] MEDS: VITAMIN B COMPLEX/VIT C CAP PO (08:52)
[2018-03-13] MEDS: OMEPRAZOLE 20 MG CAP PO (08:52)
[2018-03-13] MEDS: AZITHROMYCIN 250 MG TAB PO (08:52)
[2018-03-13] MEDS: VITAMIN D 1,000 INTERNATIONAL UNITS TABLET PO (08:52)
[2018-03-13] MEDS: LACTOBACILLUS ACIDOPHILUS CAP (BACID) PO (08:52)
[2018-03-13] MEDS: FOLIC ACID 1 MG TAB PO (08:52)
[2018-03-13] MEDS: guaiFENesin ER 600 MG TAB PO ×2 (08:52→20:25)
[2018-03-13] MEDS: HumaLOG INSULIN (NovoLOG) PER UNIT SC ×4 (08:53→20:25)
[2018-03-13 12:31] LABS: BEDSIDE GLUCOSE 271 MG/DL (80-115)
[2018-03-13] MEDS: FERROUS SULFATE 325MG TAB PO ×2 (12:41→20:25)
[2018-03-13 16:42] LABS: BEDSIDE GLUCOSE 386 MG/DL (80-115)
[2018-03-13] MEDS: BRIMONIDINE 0.2% EYE DROPS (PATIENT'S OWN MED) OU ×3 (17:11→20:36)
[2018-03-13] MEDS: TUDORZA PRESSAIR INH ×3 (18:55→21:00)
[2018-03-13 20:12] LABS: BEDSIDE GLUCOSE 323 MG/DL (80-115)
[2018-03-13] MEDS: LEVEMIR (INSULIN DETEMIR) 1 UNITS/0.01ML SC (20:25)
[2018-03-13] MEDS: CitaloPRAM (CeleXA) 20 MG TAB PO (20:26)
[2018-03-13] MEDS: MONTELUKAST 10 MG TAB PO (20:26)
[2018-03-13] MEDS: LATANOPROST 0.005% OPHTH SOLN 2.5 ML OU (20:26)
[2018-03-13] MEDS: CLOPIDOGREL 75 MG TAB PO (20:26)
[2018-03-14] MEDS: LEVALBUTEROL 1.25 MG/0.5 ML CONCENTRATE NEB NEB ×6 (00:06→20:00)
[2018-03-14] MEDS: methylPREDNISolone INJ 125 MG/2 ML VIAL (J2930) IV ×3 (03:43→21:21)
[2018-03-14] MEDS: TUDORZA PRESSAIR INH ×2 (06:18→20:20)
[2018-03-14] MEDS: BUDESONIDE 0.5 MG/2 ML INHALATION SUSPENSION INH ×2 (06:18→20:08)
[2018-03-14] MEDS: FORMOTEROL FUMARATE 20 MCG/2 ML INHALATION SOLUTION (PERFOROMIST) INH ×2 (06:18→20:08)
[2018-03-14] MEDS: IPRATROPIUM 0.02% SOLN 0.5MG/2.5 ML NEB INH ×3 (06:18→20:08)
[2018-03-14 07:08] LABS: HEMATOCRIT 38.6 % (42.0-52.0); HEMOGLOBIN 13.4 g/dl (13.5-17.5); MEAN CORPUSCULAR HEMOGLOBIN 32.8 pg (27.0-33.0); MEAN CORPUSCULAR HGB CONC 34.7 g/dl (32.0-36.5); MEAN CORPUSCULAR VOLUME 94.4 fl (80.0-96.0); PLATELET COUNT, AUTOMATED 311 10^3/uL (150-450); RED BLOOD COUNT 4.09 10^6/uL (4.30-6.10); RED CELL DISTRIBUTION WIDTH 12.1 % (11.5-14.5); WHITE BLOOD COUNT 18.8 10^3/uL (4.0-10.0)
[2018-03-14 07:29] LABS: ALBUMIN 3.5 GM/DL (3.2-5.2); ANION GAP 10 MEQ/L (8-16); BLOOD UREA NITROGEN 28 MG/DL (7-18); CALCIUM LEVEL 8.8 MG/DL (8.8-10.2); CARBON DIOXIDE LEVEL 25 MEQ/L (21-32); CHLORIDE LEVEL 104 MEQ/L (98-107); CREATININE FOR GFR 1.07 MG/DL (0.70-1.30); GLOMERULAR FILTRATION RATE > 60.0 (>49); GLUCOSE, FASTING 209 MG/DL (70-100); PHOSPHORUS LEVEL 3.2 MG/DL (2.5-4.9); POTASSIUM SERUM 4.2 MEQ/L (3.5-5.1); SODIUM LEVEL 139 MEQ/L (136-145)
[2018-03-14] MEDS: ASCORBIC ACID 500 MG TAB PO (08:15)
[2018-03-14] MEDS: VITAMIN B COMPLEX/VIT C CAP PO (08:15)
[2018-03-14] MEDS: VITAMIN D 1,000 INTERNATIONAL UNITS TABLET PO (08:15)
[2018-03-14] MEDS: FOLIC ACID 1 MG TAB PO (08:15)
[2018-03-14] MEDS: HumaLOG INSULIN (NovoLOG) PER UNIT SC ×4 (08:15→21:21)
[2018-03-14] MEDS: OMEPRAZOLE 20 MG CAP PO (08:15)
[2018-03-14] MEDS: AZITHROMYCIN 250 MG TAB PO (08:16)
[2018-03-14] MEDS: BACTRIM 160MG/800MG DS TAB PO (08:16)
[2018-03-14] MEDS: LACTOBACILLUS ACIDOPHILUS CAP (BACID) PO (08:16)
[2018-03-14] MEDS: guaiFENesin ER 600 MG TAB PO ×2 (08:16→21:20)
[2018-03-14] MEDS: BRIMONIDINE 0.2% EYE DROPS (PATIENT'S OWN MED) OU ×2 (08:17→21:22)
[2018-03-14 11:37] LABS: BEDSIDE GLUCOSE 292 MG/DL (80-115)
[2018-03-14] MEDS: FERROUS SULFATE 325MG TAB PO ×2 (12:47→21:20)
[2018-03-14] MEDS: ACETYLCYSTEINE 20% 4 ML VIAL (200MG/ML) INH ×2 (13:30→20:00)
[2018-03-14 17:00] LABS: BEDSIDE GLUCOSE 336 MG/DL (80-115)
[2018-03-14] MEDS ORDERED: cefTRIAXone SOD 1 GM in D5W MINI-BAG PLUS 50 ML IV (18:00)
[2018-03-14 20:08] LABS: BEDSIDE GLUCOSE 375 MG/DL (80-115)
[2018-03-14] MEDS: MONTELUKAST 10 MG TAB PO (21:20)
[2018-03-14] MEDS: CitaloPRAM (CeleXA) 20 MG TAB PO (21:20)
[2018-03-14] MEDS: CLOPIDOGREL 75 MG TAB PO (21:20)
[2018-03-14] MEDS: LEVEMIR (INSULIN DETEMIR) 1 UNITS/0.01ML SC (21:21)
[2018-03-14] MEDS: LATANOPROST 0.005% OPHTH SOLN 2.5 ML OU (21:22)
[2018-03-15] MEDS: methylPREDNISolone INJ 125 MG/2 ML VIAL (J2930) IV ×3 (03:20→21:06)
[2018-03-15 05:49] LABS: HEMOGLOBIN 13.2 g/dl (13.5-17.5); MEAN CORPUSCULAR HEMOGLOBIN 32.7 pg (27.0-33.0); MEAN CORPUSCULAR HGB CONC 34.7 g/dl (32.0-36.5); MEAN CORPUSCULAR VOLUME 94.1 fl (80.0-96.0); PLATELET COUNT, AUTOMATED 287 10^3/uL (150-450); RED BLOOD COUNT 4.04 10^6/uL (4.30-6.10); RED CELL DISTRIBUTION WIDTH 11.9 % (11.5-14.5); WHITE BLOOD COUNT 17.6 10^3/uL (4.0-10.0)
[2018-03-15 06:17] LABS: ALBUMIN 3.3 GM/DL (3.2-5.2); ANION GAP 8 MEQ/L (8-16); BLOOD UREA NITROGEN 25 MG/DL (7-18); CALCIUM LEVEL 8.4 MG/DL (8.8-10.2); CARBON DIOXIDE LEVEL 27 MEQ/L (21-32); CHLORIDE LEVEL 101 MEQ/L (98-107); CREATININE FOR GFR 0.98 MG/DL (0.70-1.30); GLOMERULAR FILTRATION RATE > 60.0 (>49); GLUCOSE, FASTING 201 MG/DL (70-100); PHOSPHORUS LEVEL 2.7 MG/DL (2.5-4.9); POTASSIUM SERUM 4.2 MEQ/L (3.5-5.1); SODIUM LEVEL 136 MEQ/L (136-145)
[2018-03-15] MEDS: LEVALBUTEROL 1.25 MG/0.5 ML CONCENTRATE NEB NEB ×5 (08:00→20:00)
[2018-03-15] MEDS: IPRATROPIUM 0.02% SOLN 0.5MG/2.5 ML NEB INH ×3 (08:00→20:00)
[2018-03-15] MEDS: ACETYLCYSTEINE 20% 4 ML VIAL (200MG/ML) INH ×2 (08:08→20:26)
[2018-03-15] MEDS: FORMOTEROL FUMARATE 20 MCG/2 ML INHALATION SOLUTION (PERFOROMIST) INH ×2 (08:08→20:26)
[2018-03-15] MEDS: BUDESONIDE 0.5 MG/2 ML INHALATION SUSPENSION INH ×2 (08:08→20:26)
[2018-03-15] MEDS: TUDORZA PRESSAIR INH ×2 (08:09→20:27)
[2018-03-15] MEDS: ASCORBIC ACID 500 MG TAB PO (08:38)
[2018-03-15] MEDS: OMEPRAZOLE 20 MG CAP PO (08:38)
[2018-03-15] MEDS: LACTOBACILLUS ACIDOPHILUS CAP (BACID) PO (08:38)
[2018-03-15] MEDS: HumaLOG INSULIN (NovoLOG) PER UNIT SC ×4 (08:38→21:07)
[2018-03-15] MEDS: VITAMIN D 1,000 INTERNATIONAL UNITS TABLET PO (08:38)
[2018-03-15] MEDS: BRIMONIDINE 0.2% EYE DROPS (PATIENT'S OWN MED) OU ×2 (08:39→21:05)
[2018-03-15] MEDS: VITAMIN B COMPLEX/VIT C CAP PO (08:39)
[2018-03-15] MEDS: FOLIC ACID 1 MG TAB PO (08:39)
[2018-03-15] MEDS: guaiFENesin ER 600 MG TAB PO ×2 (08:39→21:06)
[2018-03-15 12:33] LABS: BEDSIDE GLUCOSE 313 MG/DL (80-115)
[2018-03-15] MEDS: FERROUS SULFATE 325MG TAB PO ×2 (12:44→21:06)
[2018-03-15 17:14] LABS: BEDSIDE GLUCOSE 448 MG/DL (80-115)
[2018-03-15 20:50] LABS: BEDSIDE GLUCOSE 405 MG/DL (80-115)
[2018-03-15] MEDS: LATANOPROST 0.005% OPHTH SOLN 2.5 ML OU (21:05)
[2018-03-15] MEDS: CLOPIDOGREL 75 MG TAB PO (21:06)
[2018-03-15] MEDS: CitaloPRAM (CeleXA) 20 MG TAB PO (21:06)
[2018-03-15] MEDS: MONTELUKAST 10 MG TAB PO (21:06)
[2018-03-15] MEDS: LEVEMIR (INSULIN DETEMIR) 1 UNITS/0.01ML SC (21:08)
[2018-03-16] MEDS: LEVALBUTEROL 1.25 MG/0.5 ML CONCENTRATE NEB NEB ×4 (00:15→11:50)
[2018-03-16] MEDS: methylPREDNISolone INJ 125 MG/2 ML VIAL (J2930) IV ×2 (03:04→11:32)
[2018-03-16 07:08] LABS: HEMATOCRIT 38.4 % (42.0-52.0); HEMOGLOBIN 13.1 g/dl (13.5-17.5); MEAN CORPUSCULAR HEMOGLOBIN 32.6 pg (27.0-33.0); MEAN CORPUSCULAR HGB CONC 34.1 g/dl (32.0-36.5); MEAN CORPUSCULAR VOLUME 95.5 fl (80.0-96.0); PLATELET COUNT, AUTOMATED 295 10^3/uL (150-450); RED BLOOD COUNT 4.02 10^6/uL (4.30-6.10)
[2018-03-16] MEDS: IPRATROPIUM 0.02% SOLN 0.5MG/2.5 ML NEB INH ×2 (07:28→11:50)
[2018-03-16] MEDS: ACETYLCYSTEINE 20% 4 ML VIAL (200MG/ML) INH (07:29)
[2018-03-16] MEDS: FORMOTEROL FUMARATE 20 MCG/2 ML INHALATION SOLUTION (PERFOROMIST) INH (07:29)
[2018-03-16] MEDS: BUDESONIDE 0.5 MG/2 ML INHALATION SUSPENSION INH (07:29)
[2018-03-16] MEDS: HumaLOG INSULIN (NovoLOG) PER UNIT SC ×2 (07:30→11:31)
[2018-03-16 07:39] LABS: ALBUMIN 3.1 GM/DL (3.2-5.2); ANION GAP 9 MEQ/L (8-16); BLOOD UREA NITROGEN 29 MG/DL (7-18); CALCIUM LEVEL 7.8 MG/DL (8.8-10.2); CARBON DIOXIDE LEVEL 26 MEQ/L (21-32); CHLORIDE LEVEL 102 MEQ/L (98-107); CREATININE FOR GFR 0.97 MG/DL (0.70-1.30); GLOMERULAR FILTRATION RATE > 60.0 (>49); GLUCOSE, FASTING 231 MG/DL (70-100); PHOSPHORUS LEVEL 2.5 MG/DL (2.5-4.9); POTASSIUM SERUM 4.3 MEQ/L (3.5-5.1); SODIUM LEVEL 137 MEQ/L (136-145)
[2018-03-16] MEDS: guaiFENesin ER 600 MG TAB PO (08:40)
[2018-03-16] MEDS: OMEPRAZOLE 20 MG CAP PO (08:40)
[2018-03-16] MEDS: LACTOBACILLUS ACIDOPHILUS CAP (BACID) PO (08:40)
[2018-03-16] MEDS: FOLIC ACID 1 MG TAB PO (08:40)
[2018-03-16] MEDS: VITAMIN D 1,000 INTERNATIONAL UNITS TABLET PO (08:40)
[2018-03-16] MEDS: BACTRIM 160MG/800MG DS TAB PO (08:41)
[2018-03-16] MEDS: ASCORBIC ACID 500 MG TAB PO (08:41)
[2018-03-16] MEDS: VITAMIN B COMPLEX/VIT C CAP PO (08:41)
[2018-03-16] MEDS: BRIMONIDINE 0.2% EYE DROPS (PATIENT'S OWN MED) OU (08:44)
[2018-03-16] MEDS: TUDORZA PRESSAIR INH (08:47)
[2018-03-16 11:08] LABS: BEDSIDE GLUCOSE 257 MG/DL (80-115)
[2018-03-16] MEDS: FERROUS SULFATE 325MG TAB PO (11:31)
[2018-03-16] MEDS: FLUBLOK(EGG FREE)(QUAD)INFLUENZA VACC 0.5ML SYRINGE (90682)18YRS&OLDER IM (11:36)
== END 2018-03-16 13:19 | disposition home health service (06) | DRG 191 ==
LOC: M ED 10:29 → M ED INP 12:33 → M MS5PR 14:32
DX: J44.1 Chronic obstructive pulmonary disease with (acute) exacerbation (principal); D83.9 Common variable immunodeficiency, unspecified; J96.11 Chronic respiratory failure with hypoxia; E87.2 Acidosis; B37.0 Candidal stomatitis; G47.33 Obstructive sleep apnea (adult) (pediatric); I25.10 Atherosclerotic heart disease of native coronary artery without angina pectoris; F41.9 Anxiety disorder, unspecified; E55.9 Vitamin D deficiency, unspecified; I73.9 Peripheral vascular disease, unspecified; E78.5 Hyperlipidemia, unspecified; B34.8 Other viral infections of unspecified site; J06.9 Acute upper respiratory infection, unspecified; D50.9 Iron deficiency anemia, unspecified; Z66 Do not resuscitate; Z99.81 Dependence on supplemental oxygen; Z79.51 Long term (current) use of inhaled steroids; Z95.5 Presence of coronary angioplasty implant and graft; Z95.4 Presence of other heart-valve replacement; Z87.891 Personal history of nicotine dependence; Z88.6 Allergy status to analgesic agent; Z88.1 Allergy status to other antibiotic agents; Z88.8 Allergy status to other drugs, medicaments and biological substances; Z79.02 Long term (current) use of antithrombotics/antiplatelets; Z79.84 Long term (current) use of oral hypoglycemic drugs; Z79.899 Other long term (current) drug therapy; Z79.52 Long term (current) use of systemic steroids

== ENCOUNTER 2018-03-22 09:24 | Inpatient (IN) | payer MEDICARE, OTHER ==
[2018-03-22 10:14] LABS: BEDSIDE GLUCOSE 270 MG/DL (80-115)
[2018-03-22] MEDS: LR 1,000 ML IV ×2 (10:47→14:41)
[2018-03-22] MEDS ORDERED: MIDAZOLAM INJ 2 MG/2 ML VIAL (J2250) As Ordered (11:53)
[2018-03-22] MEDS ORDERED: ceFAZolin 2 GM/D5W 50 ML IV BAG (J0690 PER 500MG) As Ordered (12:02)
[2018-03-22] MEDS ORDERED: PROPOFOL 200 MG/20 ML VIAL As Ordered (12:39)
[2018-03-22] MEDS ORDERED: fentaNYL 100 MCG/2 ML INJECTION (J3010) As Ordered (12:39)
[2018-03-22] MEDS ORDERED: ONDANSETRON 4MG/2ML VIAL (J2405) As Ordered (12:39)
[2018-03-22] MEDS: LIDOCAINE 1% MDV 20ML VIAL As Ordered (12:58)
[2018-03-22] MEDS: BUPIVACAINE HCL 0.5% 30 ML VIAL As Ordered (12:58)
[2018-03-22] MEDS ORDERED: HEPARIN SOD (PORCINE) 5000 UNITS/ML VIAL As Ordered ×2 (13:02)
[2018-03-22] MEDS: HEPARIN SOD (PORCINE) 5000 UNITS/ML VIAL As Ordered (13:10)
[2018-03-22] MEDS: THROMBIN SOLN 20,000 UNITS KIT As Ordered (14:00)
[2018-03-22] MEDS ORDERED: PROTAMINE SULF INJ 50 MG/5 ML VIAL (J2720) As Ordered (14:08)
[2018-03-22] MEDS ORDERED: ONDANSETRON 4MG/2ML VIAL (J2405) IV ×2 (14:30→15:15)
[2018-03-22] MEDS ORDERED: NITROGLYCERIN 0.4 MG SUBL TABLET SL (14:30)
[2018-03-22] MEDS ORDERED: BISACODYL 10 MG SUPP PR (14:30)
[2018-03-22] MEDS ORDERED: NYSTATIN 500,000 U/5 ML SUSP UDC PO (14:30)
[2018-03-22] MEDS ORDERED: ACETAMINOPHEN TAB 650MG DOSE (2X325MG) PO (14:30)
[2018-03-22] MEDS ORDERED: IPRATROPIUM 0.5MG/ALBUTEROL 2.5MG INH SOL UD 3ML (DUONEB)(J7620) INH (14:30)
[2018-03-22] MEDS ORDERED: predniSONE 50 MG TAB PO (14:30)
[2018-03-22] MEDS ORDERED: MOM 30ML SUSPENSION UDC PO (14:30)
[2018-03-22] MEDS ORDERED: predniSONE 20 MG TAB PO (14:30)
[2018-03-22 15:09] LABS: BASO % 0.2 % (0.0-1.0); EOS % 0.2 % (0.0-3.0); HEMOGLOBIN 12.4 g/dl (13.5-17.5); IMMATURE GRANULOCYTE % 1.2 % (0-3.0); LYMPH # 1.4 10^3/uL (1.5-4.5); LYMPH % 11.6 % (24.0-44.0); MEAN CORPUSCULAR HEMOGLOBIN 32.6 pg (27.0-33.0); MEAN CORPUSCULAR HGB CONC 33.5 g/dl (32.0-36.5); MEAN CORPUSCULAR VOLUME 97.4 fl (80.0-96.0); MONO # 0.7 10^3/uL (0.0-0.8); MONO % 5.7 % (0.0-5.0); NEUTROPHILS % 81.1 % (36.0-66.0); PLATELET COUNT, AUTOMATED 199 10^3/uL (150-450); RED CELL DISTRIBUTION WIDTH 12.2 % (11.5-14.5); WHITE BLOOD COUNT 12.3 10^3/uL (4.0-10.0)
[2018-03-22] MEDS ORDERED: fentaNYL 100 MCG/2 ML INJECTION (J3010) IV (15:15)
[2018-03-22 15:30] LABS: ALBUMIN 2.9 GM/DL (3.2-5.2); ALKALINE PHOSPHATASE 58 U/L (45-117); ALT/SGPT 40 U/L (12-78); ANION GAP 6 MEQ/L (8-16); AST/SGOT 9 U/L (7-37); BILIRUBIN,TOTAL 0.3 MG/DL (0.2-1.0); BLOOD UREA NITROGEN 13 MG/DL (7-18); CALCIUM LEVEL 7.7 MG/DL (8.8-10.2); CARBON DIOXIDE LEVEL 28 MEQ/L (21-32); CHLORIDE LEVEL 103 MEQ/L (98-107); CREATININE FOR GFR 0.96 MG/DL (0.70-1.30); GLOMERULAR FILTRATION RATE > 60.0 (>49); GLUCOSE, FASTING 181 MG/DL (70-100); POTASSIUM SERUM 4.7 MEQ/L (3.5-5.1); SODIUM LEVEL 137 MEQ/L (136-145); TOTAL PROTEIN 5.8 GM/DL (6.4-8.2)
[2018-03-22] MEDS: NORCO, ANEXSIA 5/325MG TABLET (HYDROcodone/ACETAMINOPHEN) PO ×2 (16:05→21:31)
[2018-03-22] MEDS: GLIMEPIRIDE 2 MG TAB PO (17:30)
[2018-03-22] MEDS: metFORMIN (GLUCOPHAGE) 500 MG TAB PO (18:00)
[2018-03-22 18:27] LABS: BEDSIDE GLUCOSE 84 MG/DL (80-115)
[2018-03-22] MEDS: FOLIC ACID 1 MG TAB PO (18:49)
[2018-03-22] MEDS: LACTOBACILLUS ACIDOPHILUS CAP (BACID) PO (18:49)
[2018-03-22] MEDS: ASCORBIC ACID 500 MG TAB PO (18:49)
[2018-03-22] MEDS: VITAMIN D 1,000 INTERNATIONAL UNITS TABLET PO (18:50)
[2018-03-22] MEDS: ALBUTEROL SULFATE 2.5 MG/0.5 ML INH NEB SOLN INH (19:48)
[2018-03-22] MEDS: IPRATROPIUM 0.02% SOLN 0.5MG/2.5 ML NEB INH (19:48)
[2018-03-22] MEDS: BUDESONIDE 0.5 MG/2 ML INHALATION SUSPENSION INH (19:49)
[2018-03-22] MEDS: FORMOTEROL FUMARATE 20 MCG/2 ML INHALATION SOLUTION (PERFOROMIST) INH (19:49)
[2018-03-22 21:13] LABS: BEDSIDE GLUCOSE 119 MG/DL (80-115)
[2018-03-22] MEDS: LATANOPROST 0.005% OPHTH SOLN 2.5 ML OU (21:29)
[2018-03-22] MEDS: HEPARIN SOD (PORCINE) 5000 UNITS/ML VIAL SC (21:29)
[2018-03-22] MEDS: FAMOTIDINE 20 MG TAB PO (21:31)
[2018-03-22] MEDS: DOCUSATE SODIUM 100 MG CAP PO (21:31)
[2018-03-22] MEDS: SENOKOT S TAB PO (21:31)
[2018-03-22] MEDS: CitaloPRAM (CeleXA) 20 MG TAB PO (21:31)
[2018-03-22] MEDS: CLOPIDOGREL 75 MG TAB PO (21:31)
[2018-03-22] MEDS: guaiFENesin ER 600 MG TAB PO (21:31)
[2018-03-22] MEDS: MONTELUKAST 10 MG TAB PO (21:31)
[2018-03-22] MEDS: FERROUS SULFATE 325MG TAB PO (21:32)
[2018-03-22] MEDS: TUDORZA 400 MCG INH (23:46)
[2018-03-23] MEDS: MORPHINE 4 MG/ML 1ML VIAL/SYRINGE (J2270) IV (00:07)
[2018-03-23] MEDS: HEPARIN SOD (PORCINE) 5000 UNITS/ML VIAL SC (05:36)
[2018-03-23] MEDS: FORMOTEROL FUMARATE 20 MCG/2 ML INHALATION SOLUTION (PERFOROMIST) INH (07:46)
[2018-03-23] MEDS: BUDESONIDE 0.5 MG/2 ML INHALATION SUSPENSION INH (07:48)
[2018-03-23] MEDS: TUDORZA 400 MCG INH (07:49)
[2018-03-23] MEDS: IPRATROPIUM 0.02% SOLN 0.5MG/2.5 ML NEB INH (07:50)
[2018-03-23] MEDS: ALBUTEROL SULFATE 2.5 MG/0.5 ML INH NEB SOLN INH ×2 (07:50→12:29)
[2018-03-23 08:08] LABS: BEDSIDE GLUCOSE 107 MG/DL (80-115)
[2018-03-23] MEDS: GLIMEPIRIDE 2 MG TAB PO (08:49)
[2018-03-23] MEDS: DOCUSATE SODIUM 100 MG CAP PO (08:49)
[2018-03-23] MEDS: VITAMIN B COMPLEX/VIT C CAP PO (08:49)
[2018-03-23] MEDS: LACTOBACILLUS ACIDOPHILUS CAP (BACID) PO (08:49)
[2018-03-23] MEDS: OMEPRAZOLE 20 MG CAP PO (08:49)
[2018-03-23] MEDS: SENOKOT S TAB PO (08:49)
[2018-03-23] MEDS: FOLIC ACID 1 MG TAB PO (08:50)
[2018-03-23] MEDS: guaiFENesin ER 600 MG TAB PO (08:50)
[2018-03-23] MEDS: predniSONE 20 MG TAB PO (08:50)
[2018-03-23] MEDS: metFORMIN (GLUCOPHAGE) 500 MG TAB PO (08:50)
[2018-03-23] MEDS: FERROUS SULFATE 325MG TAB PO (08:51)
[2018-03-23] MEDS: ASCORBIC ACID 500 MG TAB PO (08:51)
[2018-03-23] MEDS: VITAMIN D 1,000 INTERNATIONAL UNITS TABLET PO (08:51)
[2018-03-23] MEDS: BACTRIM 160MG/800MG DS TAB PO (08:51)
[2018-03-23] MEDS: NORCO, ANEXSIA 5/325MG TABLET (HYDROcodone/ACETAMINOPHEN) PO ×2 (08:54→14:56)
[2018-03-23] MEDS ORDERED: VITAMIN D 1,000 INTERNATIONAL UNITS TABLET PO (09:00)
[2018-03-23 09:39] LABS: HEMATOCRIT 38.9 % (42.0-52.0); HEMOGLOBIN 13.5 g/dl (13.5-17.5); MEAN CORPUSCULAR HEMOGLOBIN 33.3 pg (27.0-33.0); MEAN CORPUSCULAR HGB CONC 34.7 g/dl (32.0-36.5); PLATELET COUNT, AUTOMATED 217 10^3/uL (150-450); RED BLOOD COUNT 4.05 10^6/uL (4.30-6.10); RED CELL DISTRIBUTION WIDTH 12.1 % (11.5-14.5); WHITE BLOOD COUNT 20.4 10^3/uL (4.0-10.0)
[2018-03-23 09:51] LABS: ANION GAP 6 MEQ/L (8-16); BLOOD UREA NITROGEN 14 MG/DL (7-18); CALCIUM LEVEL 8.4 MG/DL (8.8-10.2); CARBON DIOXIDE LEVEL 31 MEQ/L (21-32); CHLORIDE LEVEL 96 MEQ/L (98-107); CREATININE FOR GFR 0.92 MG/DL (0.70-1.30); GLOMERULAR FILTRATION RATE > 60.0 (>49); GLUCOSE, FASTING 101 MG/DL (70-100); POTASSIUM SERUM 3.6 MEQ/L (3.5-5.1); SODIUM LEVEL 133 MEQ/L (136-145)
[2018-03-23] MEDS: CLOTRIMAZOLE 10 MG TROCHE MT (13:00)
[2018-03-24] MEDS ORDERED: FLUBLOK(EGG FREE)(QUAD)INFLUENZA VACC 0.5ML SYRINGE (90682)18YRS&OLDER IM (09:00)
== END 2018-03-23 15:08 | disposition home or self-care (01) | DRG 271 ==
LOC: M OR 09:24 → M ICU 17:25
PROVIDERS: Surgery Vascular Surgery
PROC: 04CJ0ZZ Extirpation of Matter from Left External Iliac Artery, Open Approach (ICD-10-PCS; principal; 2018-03-22 11:00)
PROC: 04CN0ZZ Extirpation of Matter from Left Popliteal Artery, Open Approach (ICD-10-PCS; 2018-03-22 11:00)
DX: I70.212 Atherosclerosis of native arteries of extremities with intermittent claudication, left leg (principal); J96.11 Chronic respiratory failure with hypoxia; D83.9 Common variable immunodeficiency, unspecified; I10 Essential (primary) hypertension; E11.51 Type 2 diabetes mellitus with diabetic peripheral angiopathy without gangrene; E78.00 Pure hypercholesterolemia, unspecified; J45.909 Unspecified asthma, uncomplicated; J44.9 Chronic obstructive pulmonary disease, unspecified; I25.10 Atherosclerotic heart disease of native coronary artery without angina pectoris; K21.9 Gastro-esophageal reflux disease without esophagitis; D50.9 Iron deficiency anemia, unspecified; M81.0 Age-related osteoporosis without current pathological fracture; E55.9 Vitamin D deficiency, unspecified; Z95.3 Presence of xenogenic heart valve; Z95.5 Presence of coronary angioplasty implant and graft; Z98.41 Cataract extraction status, right eye; Z98.42 Cataract extraction status, left eye; Z87.891 Personal history of nicotine dependence; Z86.73 Personal history of transient ischemic attack (TIA), and cerebral infarction without residual deficits; Z79.84 Long term (current) use of oral hypoglycemic drugs; Z79.02 Long term (current) use of antithrombotics/antiplatelets; Z79.52 Long term (current) use of systemic steroids; Z79.891 Long term (current) use of opiate analgesic; Z79.899 Other long term (current) drug therapy; Z88.0 Allergy status to penicillin; Z88.8 Allergy status to other drugs, medicaments and biological substances

== ENCOUNTER → 2018-04-27 | Outpatient (CLI) | payer MEDICARE, OTHER ==
[~2018-04-27] MED LIST changes: +ACETAMINOPHEN 325 MG TAB As Ordered; +LIDOCAINE 2% MDV 20 ML VIAL As Ordered; +PROTAMINE SULF INJ 50 MG/5 ML VIAL (J2720) As Ordered
== END | disposition home or self-care (01) ==
LOC: M IRPRO 06:33
DX: I70.213 Atherosclerosis of native arteries of extremities with intermittent claudication, bilateral legs (principal); I70.0 Atherosclerosis of aorta; J44.9 Chronic obstructive pulmonary disease, unspecified
CPT/HCPCS: 37226

== ENCOUNTER → 2018-05-05 | Outpatient (REF) | payer MEDICARE, OTHER | LOC: M LAB REF 17:24 | DX: J47.9 Bronchiectasis, uncomplicated (principal) | CPT/HCPCS: 87205 ==

== ENCOUNTER 2018-05-11 21:28 | Inpatient (IN) | payer MEDICARE, OTHER ==
[2018-05-11] MEDS: MORPHINE 4 MG/ML 1ML VIAL/SYRINGE (J2270) IV (22:09)
[2018-05-11] MEDS: dexameTHASONE 20 MG/5 ML VIAL (J1100) IV (22:11)
[2018-05-11 22:12] LABS: BASO # 0.1 10^3/uL (0.0-0.2); BASO % 0.3 % (0.0-1.0); EOS # 0.4 10^3/uL (0.0-0.50); EOS % 2.1 % (0.0-3.0); HEMATOCRIT 37.9 % (42.0-52.0); HEMOGLOBIN 12.7 g/dl (13.5-17.5); IMMATURE GRANULOCYTE % 1.4 % (0-3.0); LYMPH # 1.8 10^3/uL (1.5-4.5); MEAN CORPUSCULAR HEMOGLOBIN 32.1 pg (27.0-33.0); MEAN CORPUSCULAR HGB CONC 33.5 g/dl (32.0-36.5); MEAN CORPUSCULAR VOLUME 95.7 fl (80.0-96.0); MONO % 5.7 % (0.0-5.0); NEUTROPHILS # 14.6 10^3/uL (1.8-7.7); NEUTROPHILS % 80.5 % (36.0-66.0); PLATELET COUNT, AUTOMATED 373 10^3/uL (150-450); RED BLOOD COUNT 3.96 10^6/uL (4.30-6.10); RED CELL DISTRIBUTION WIDTH 12.6 % (11.5-14.5); WHITE BLOOD COUNT 18.1 10^3/uL (4.0-10.0)
[2018-05-11] MEDS: IPRATROPIUM 0.5MG/ALBUTEROL 2.5MG INH SOL UD 3ML (DUONEB)(J7620) NEB ×3 (22:21→23:08)
[2018-05-11 22:31] LABS: ANION GAP 6 MEQ/L (8-16); BLOOD UREA NITROGEN 18 MG/DL (7-18); CALCIUM LEVEL 8.4 MG/DL (8.8-10.2); CARBON DIOXIDE LEVEL 29 MEQ/L (21-32); CHLORIDE LEVEL 98 MEQ/L (98-107); CREATININE FOR GFR 0.99 MG/DL (0.70-1.30); GLOMERULAR FILTRATION RATE > 60.0 (>49); GLUCOSE, FASTING 92 MG/DL (70-100); POTASSIUM SERUM 3.9 MEQ/L (3.5-5.1); SODIUM LEVEL 133 MEQ/L (136-145)
[2018-05-11 22:40] LABS: ABG BASE EXCESS 3.4 (-2.0-2.0); ABG HCO3 28.7 MEQ/L (22.0-26.0); ABG O2 SATURATION 92.9 % (95.0-99.0); ABG PARTIAL PRESSURE CO2 46.2 mmHg (35.0-45.0); ABG STANDARD HCO3 27.4 MEQ/L (22.0-26.0); ABG TOTAL CO2 30.1 MEQ/L (23.0-31.0); ABG pH (ARTERIAL) 7.411 UNITS (7.350-7.450)
[2018-05-12] MEDS ORDERED: IPRATROPIUM 0.5MG/ALBUTEROL 2.5MG INH SOL UD 3ML (DUONEB)(J7620) NEB ×2 (00:30→04:00)
[2018-05-12] MEDS ORDERED: ISOVUE-370 76% 100ML VIAL (Q9967) As Ordered (00:31)
[2018-05-12 00:39] LABS: INR 1.04; PROTHROMBIN TIME 13.7 SECONDS (12.1-14.4)
[2018-05-12 00:40] LABS: PARTIAL THROMBOPLASTIN TIME 24.8 SECONDS (25.4-37.6)
[2018-05-12 00:42] LABS: D-DIMER QUANT 824.39 ng/ml (<500)
[2018-05-12] MEDS ORDERED: DEXTROSE 50% 50 ML SYRINGE IV (00:45)
[2018-05-12] MEDS ORDERED: GLUCAGON FOR INJ 1 MG VIAL (J1610) SC (00:45)
[2018-05-12] MEDS ORDERED: ACETAMINOPHEN TAB 650MG DOSE (2X325MG) PO (00:45)
[2018-05-12] MEDS ORDERED: GLUCOSE 4 GM CHEW TABLET PO (00:45)
[2018-05-12] MEDS ORDERED: ONDANSETRON 4 MG TAB (S0181) PO (00:45)
[2018-05-12] MEDS ORDERED: SENOKOT S TAB PO (00:45)
[2018-05-12 00:54] LABS: CPK CREATINE PHOSPHOKINASE 128 U/L (39-308); MB/CK RELATIVE INDEX 3.36 (< OR =4); NT-PRO BNP 131 PG/ML (<125)
[2018-05-12] MEDS: HumaLOG INSULIN (NovoLOG) PER UNIT SC ×5 (00:57→20:33)
[2018-05-12] MEDS: BUDESONIDE 0.5 MG/2 ML INHALATION SUSPENSION INH ×3 (00:58→20:29)
[2018-05-12] MEDS: FORMOTEROL FUMARATE 20 MCG/2 ML INHALATION SOLUTION (PERFOROMIST) INH ×3 (00:59→20:29)
[2018-05-12] MEDS: ENOXAPARIN 80 MG/0.8 ML SYRINGE (J1650) SC (02:25)
[2018-05-12 03:21] LABS: BEDSIDE GLUCOSE 164 MG/DL (80-115)
[2018-05-12] MEDS: CLOPIDOGREL 75 MG TAB PO ×2 (03:28→20:54)
[2018-05-12] MEDS: MONTELUKAST 10 MG TAB PO ×2 (03:29→20:54)
[2018-05-12] MEDS: FERROUS SULFATE 325MG TAB PO ×3 (03:29→20:54)
[2018-05-12] MEDS: SIMVASTATIN 20 MG TAB PO ×2 (03:29→20:54)
[2018-05-12] MEDS: guaiFENesin ER 600 MG TAB PO ×3 (03:29→20:55)
[2018-05-12] MEDS: CitaloPRAM (CeleXA) 20 MG TAB PO ×2 (03:30→20:54)
[2018-05-12] MEDS: LATANOPROST 0.005% OPHTH SOLN 2.5 ML OU ×2 (03:30→20:54)
[2018-05-12 03:32] LABS: TROPONIN I 0.02 NG/ML (< 0.10)
[2018-05-12] MEDS: DOXYCYCLINE HYCLATE 100 MG in D5W MINI-BAG PLUS 100 ML IV ×2 (03:58→13:33)
[2018-05-12] MEDS: LEVALBUTEROL 1.25 MG/0.5 ML CONCENTRATE NEB NEB ×4 (04:27→20:00)
[2018-05-12 06:03] LABS: BEDSIDE GLUCOSE 266 MG/DL (80-115)
[2018-05-12 07:05] LABS: CPK CREATINE PHOSPHOKINASE 95 U/L (39-308); MB/CK RELATIVE INDEX 3.26 (< OR =4); TROPONIN I < 0.02 NG/ML (< 0.10)
[2018-05-12] MEDS: OMEPRAZOLE 20 MG CAP PO (09:43)
[2018-05-12] MEDS: LACTOBACILLUS ACIDOPHILUS CAP (BACID) PO (09:43)
[2018-05-12] MEDS: ASCORBIC ACID 500 MG TAB PO (09:43)
[2018-05-12] MEDS: predniSONE 20 MG TAB PO (09:44)
[2018-05-12] MEDS: FOLIC ACID 1 MG TAB PO (09:44)
[2018-05-12 12:05] LABS: BEDSIDE GLUCOSE 303 MG/DL (80-115)
[2018-05-12 14:33] LABS: CPK CREATINE PHOSPHOKINASE 77 U/L (39-308); MB/CK RELATIVE INDEX 3.51 (< OR =4); TROPONIN I < 0.02 NG/ML (< 0.10)
[2018-05-12] MEDS: SLF 3 ML SYR IV ×3 (14:34→21:05)
[2018-05-12] MEDS: GLIMEPIRIDE 2 MG TAB PO (16:35)
[2018-05-12 16:54] LABS: BEDSIDE GLUCOSE 270 MG/DL (80-115)
[2018-05-12 19:58] LABS: BEDSIDE GLUCOSE 224 MG/DL (80-115)
[2018-05-12] MEDS: LEVEMIR (INSULIN DETEMIR) 1 UNITS/0.01ML SC (20:55)
[2018-05-12] MEDS: PERCOCET 5MG/325MG TAB PO (20:55)
[2018-05-13] MEDS: LEVALBUTEROL 1.25 MG/0.5 ML CONCENTRATE NEB NEB ×4 (00:07→20:00)
[2018-05-13] MEDS: PERCOCET 5MG/325MG TAB PO ×4 (02:09→17:42)
[2018-05-13] MEDS: DOXYCYCLINE HYCLATE 100 MG in D5W MINI-BAG PLUS 100 ML IV ×2 (02:09→16:33)
[2018-05-13] MEDS: SLF 3 ML SYR IV ×4 (04:00→21:59)
[2018-05-13 05:58] LABS: HEMATOCRIT 34.8 % (42.0-52.0); HEMOGLOBIN 11.8 g/dl (13.5-17.5); MEAN CORPUSCULAR HEMOGLOBIN 31.3 pg (27.0-33.0); MEAN CORPUSCULAR HGB CONC 33.9 g/dl (32.0-36.5); MEAN CORPUSCULAR VOLUME 92.3 fl (80.0-96.0); PLATELET COUNT, AUTOMATED 368 10^3/uL (150-450); RED BLOOD COUNT 3.77 10^6/uL (4.30-6.10); RED CELL DISTRIBUTION WIDTH 12.5 % (11.5-14.5); WHITE BLOOD COUNT 16.8 10^3/uL (4.0-10.0)
[2018-05-13 06:22] LABS: ANION GAP 7 MEQ/L (8-16); BLOOD UREA NITROGEN 18 MG/DL (7-18); CALCIUM LEVEL 8.2 MG/DL (8.8-10.2); CARBON DIOXIDE LEVEL 28 MEQ/L (21-32); CHLORIDE LEVEL 102 MEQ/L (98-107); CREATININE FOR GFR 0.82 MG/DL (0.70-1.30); GLOMERULAR FILTRATION RATE > 60.0 (>49); GLUCOSE, FASTING 175 MG/DL (70-100); MAGNESIUM LEVEL 2.2 MG/DL (1.8-2.4); SODIUM LEVEL 137 MEQ/L (136-145)
[2018-05-13] MEDS: BUDESONIDE 0.5 MG/2 ML INHALATION SUSPENSION INH ×2 (07:14→20:31)
[2018-05-13] MEDS: FORMOTEROL FUMARATE 20 MCG/2 ML INHALATION SOLUTION (PERFOROMIST) INH ×2 (07:14→20:31)
[2018-05-13] MEDS: OMEPRAZOLE 20 MG CAP PO (08:28)
[2018-05-13] MEDS: guaiFENesin ER 600 MG TAB PO ×2 (08:28→21:56)
[2018-05-13] MEDS: predniSONE 20 MG TAB PO (08:29)
[2018-05-13] MEDS: BACTRIM 160MG/800MG DS TAB PO (08:29)
[2018-05-13] MEDS: GLIMEPIRIDE 2 MG TAB PO ×2 (08:29→13:16)
[2018-05-13] MEDS: ASCORBIC ACID 500 MG TAB PO (08:29)
[2018-05-13] MEDS: FOLIC ACID 1 MG TAB PO (08:30)
[2018-05-13] MEDS: LACTOBACILLUS ACIDOPHILUS CAP (BACID) PO (08:30)
[2018-05-13] MEDS: ENOXAPARIN 40 MG/0.4 ML SYRINGE (J1650) SC (08:30)
[2018-05-13] MEDS: HumaLOG INSULIN (NovoLOG) PER UNIT SC ×4 (08:31→21:00)
[2018-05-13 12:34] LABS: BEDSIDE GLUCOSE 257 MG/DL (80-115)
[2018-05-13] MEDS: FERROUS SULFATE 325MG TAB PO ×2 (13:15→21:57)
[2018-05-13] MEDS: DICLOFENAC EPOLAMINE 1.3 % PATCH TOP ×2 (14:57→21:58)
[2018-05-13 17:32] LABS: BEDSIDE GLUCOSE 275 MG/DL (80-115)
[2018-05-13] MEDS: SIMVASTATIN 20 MG TAB PO (21:56)
[2018-05-13] MEDS: MONTELUKAST 10 MG TAB PO (21:57)
[2018-05-13] MEDS: CLOPIDOGREL 75 MG TAB PO (21:57)
[2018-05-13] MEDS: CitaloPRAM (CeleXA) 20 MG TAB PO (21:57)
[2018-05-13] MEDS: LEVEMIR (INSULIN DETEMIR) 1 UNITS/0.01ML SC (21:58)
[2018-05-13] MEDS: LATANOPROST 0.005% OPHTH SOLN 2.5 ML OU (21:59)
[2018-05-13 22:16] LABS: BEDSIDE GLUCOSE 212 MG/DL (80-115)
[2018-05-14] MEDS: DOXYCYCLINE HYCLATE 100 MG in D5W MINI-BAG PLUS 100 ML IV ×2 (01:18→15:56)
[2018-05-14] MEDS: LEVALBUTEROL 1.25 MG/0.5 ML CONCENTRATE NEB NEB ×4 (01:46→20:00)
[2018-05-14 05:18] LABS: HEMATOCRIT 37.6 % (42.0-52.0); HEMOGLOBIN 12.7 g/dl (13.5-17.5); MEAN CORPUSCULAR HEMOGLOBIN 31.4 pg (27.0-33.0); MEAN CORPUSCULAR HGB CONC 33.8 g/dl (32.0-36.5); MEAN CORPUSCULAR VOLUME 92.8 fl (80.0-96.0); PLATELET COUNT, AUTOMATED 416 10^3/uL (150-450); RED BLOOD COUNT 4.05 10^6/uL (4.30-6.10); RED CELL DISTRIBUTION WIDTH 12.6 % (11.5-14.5)
[2018-05-14 05:39] LABS: ANION GAP 8 MEQ/L (8-16); BLOOD UREA NITROGEN 19 MG/DL (7-18); CALCIUM LEVEL 8.4 MG/DL (8.8-10.2); CARBON DIOXIDE LEVEL 27 MEQ/L (21-32); CHLORIDE LEVEL 105 MEQ/L (98-107); CREATININE FOR GFR 0.84 MG/DL (0.70-1.30); GLOMERULAR FILTRATION RATE > 60.0 (>49); GLUCOSE, FASTING 132 MG/DL (70-100); MAGNESIUM LEVEL 2.1 MG/DL (1.8-2.4); POTASSIUM SERUM 3.6 MEQ/L (3.5-5.1); SODIUM LEVEL 140 MEQ/L (136-145)
[2018-05-14] MEDS: SLF 3 ML SYR IV ×3 (06:00→21:09)
[2018-05-14] MEDS: PERCOCET 5MG/325MG TAB PO ×4 (06:10→18:06)
[2018-05-14] MEDS: BUDESONIDE 0.5 MG/2 ML INHALATION SUSPENSION INH ×2 (07:40→21:15)
[2018-05-14] MEDS: FORMOTEROL FUMARATE 20 MCG/2 ML INHALATION SOLUTION (PERFOROMIST) INH ×2 (07:40→21:14)
[2018-05-14] MEDS: OMEPRAZOLE 20 MG CAP PO (08:26)
[2018-05-14] MEDS: predniSONE 20 MG TAB PO (08:27)
[2018-05-14] MEDS: LACTOBACILLUS ACIDOPHILUS CAP (BACID) PO (08:28)
[2018-05-14] MEDS: FOLIC ACID 1 MG TAB PO (08:28)
[2018-05-14] MEDS: ENOXAPARIN 40 MG/0.4 ML SYRINGE (J1650) SC (08:28)
[2018-05-14] MEDS: guaiFENesin ER 600 MG TAB PO ×2 (08:28→21:06)
[2018-05-14] MEDS: ASCORBIC ACID 500 MG TAB PO (08:29)
[2018-05-14] MEDS: DICLOFENAC EPOLAMINE 1.3 % PATCH TOP ×2 (08:29→21:06)
[2018-05-14] MEDS: GLIMEPIRIDE 2 MG TAB PO ×2 (08:29→12:27)
[2018-05-14] MEDS: HumaLOG INSULIN (NovoLOG) PER UNIT SC ×4 (08:30→21:00)
[2018-05-14] MEDS: FERROUS SULFATE 325MG TAB PO ×2 (12:27→21:06)
[2018-05-14 17:09] LABS: BEDSIDE GLUCOSE 210 MG/DL (80-115)
[2018-05-14] MEDS: MONTELUKAST 10 MG TAB PO (21:06)
[2018-05-14] MEDS: CLOPIDOGREL 75 MG TAB PO (21:06)
[2018-05-14] MEDS: SIMVASTATIN 20 MG TAB PO (21:06)
[2018-05-14] MEDS: CitaloPRAM (CeleXA) 20 MG TAB PO (21:06)
[2018-05-14] MEDS: LEVEMIR (INSULIN DETEMIR) 1 UNITS/0.01ML SC (21:07)
[2018-05-14] MEDS: LATANOPROST 0.005% OPHTH SOLN 2.5 ML OU (21:07)
[2018-05-14 21:16] LABS: BEDSIDE GLUCOSE 157 MG/DL (80-115)
[2018-05-15] MEDS: LEVALBUTEROL 1.25 MG/0.5 ML CONCENTRATE NEB NEB ×2 (01:03→08:00)
[2018-05-15] MEDS: DOXYCYCLINE HYCLATE 100 MG in D5W MINI-BAG PLUS 100 ML IV (02:12)
[2018-05-15 04:57] LABS: HEMATOCRIT 38.2 % (42.0-52.0); HEMOGLOBIN 12.9 g/dl (13.5-17.5); MEAN CORPUSCULAR HEMOGLOBIN 31.2 pg (27.0-33.0); MEAN CORPUSCULAR HGB CONC 33.8 g/dl (32.0-36.5); MEAN CORPUSCULAR VOLUME 92.3 fl (80.0-96.0); PLATELET COUNT, AUTOMATED 381 10^3/uL (150-450); RED BLOOD COUNT 4.14 10^6/uL (4.30-6.10); RED CELL DISTRIBUTION WIDTH 12.6 % (11.5-14.5)
[2018-05-15 05:17] LABS: ANION GAP 6 MEQ/L (8-16); BLOOD UREA NITROGEN 16 MG/DL (7-18); CALCIUM LEVEL 8.9 MG/DL (8.8-10.2); CARBON DIOXIDE LEVEL 30 MEQ/L (21-32); CHLORIDE LEVEL 103 MEQ/L (98-107); CREATININE FOR GFR 0.77 MG/DL (0.70-1.30); GLOMERULAR FILTRATION RATE > 60.0 (>49); GLUCOSE, FASTING 69 MG/DL (70-100); POTASSIUM SERUM 3.7 MEQ/L (3.5-5.1); SODIUM LEVEL 139 MEQ/L (136-145)
[2018-05-15] MEDS: SLF 3 ML SYR IV (05:42)
[2018-05-15] MEDS ORDERED: KETOROLAC 30 MG/ML VIAL (J1885) IV (06:45)
[2018-05-15] MEDS: HumaLOG INSULIN (NovoLOG) PER UNIT SC (07:30)
[2018-05-15] MEDS: guaiFENesin ER 600 MG TAB PO (08:06)
[2018-05-15] MEDS: OMEPRAZOLE 20 MG CAP PO (08:06)
[2018-05-15] MEDS: predniSONE 20 MG TAB PO (08:06)
[2018-05-15] MEDS: ASCORBIC ACID 500 MG TAB PO (08:07)
[2018-05-15] MEDS: ENOXAPARIN 40 MG/0.4 ML SYRINGE (J1650) SC (08:07)
[2018-05-15] MEDS: FOLIC ACID 1 MG TAB PO (08:07)
[2018-05-15] MEDS: LACTOBACILLUS ACIDOPHILUS CAP (BACID) PO (08:07)
[2018-05-15] MEDS: DICLOFENAC EPOLAMINE 1.3 % PATCH TOP (08:13)
[2018-05-15] MEDS: PERCOCET 5MG/325MG TAB PO (08:17)
[2018-05-15] MEDS: BUDESONIDE 0.5 MG/2 ML INHALATION SUSPENSION INH (08:24)
[2018-05-15] MEDS: FORMOTEROL FUMARATE 20 MCG/2 ML INHALATION SOLUTION (PERFOROMIST) INH (08:24)
[2018-05-15] MEDS: GLIMEPIRIDE 2 MG TAB PO (10:23)
[2018-05-15 10:26] LABS: BEDSIDE GLUCOSE 384 MG/DL (80-115)
[2018-05-15] MEDS ORDERED: DOXYCYCLINE HYCLATE 100 MG TAB PO (21:00)
== END 2018-05-15 12:05 | disposition home or self-care (01) | DRG 191 ==
LOC: M ED INP 05-12 00:56 → M ED 21:28 → M PCU 05-12 02:53
DX: J44.1 Chronic obstructive pulmonary disease with (acute) exacerbation (principal); D83.9 Common variable immunodeficiency, unspecified; J96.11 Chronic respiratory failure with hypoxia; I25.10 Atherosclerotic heart disease of native coronary artery without angina pectoris; G47.33 Obstructive sleep apnea (adult) (pediatric); E55.9 Vitamin D deficiency, unspecified; D50.9 Iron deficiency anemia, unspecified; D64.9 Anemia, unspecified; I73.9 Peripheral vascular disease, unspecified; Z66 Do not resuscitate; E78.5 Hyperlipidemia, unspecified; I10 Essential (primary) hypertension; K21.9 Gastro-esophageal reflux disease without esophagitis; F32.9 Major depressive disorder, single episode, unspecified; E53.8 Deficiency of other specified B group vitamins; Z99.81 Dependence on supplemental oxygen; Z95.3 Presence of xenogenic heart valve; Z79.52 Long term (current) use of systemic steroids; Z79.01 Long term (current) use of anticoagulants; Z87.891 Personal history of nicotine dependence; Z88.6 Allergy status to analgesic agent; Z88.8 Allergy status to other drugs, medicaments and biological substances; Z79.899 Other long term (current) drug therapy; Z79.84 Long term (current) use of oral hypoglycemic drugs; Z95.5 Presence of coronary angioplasty implant and graft; R73.9 Hyperglycemia, unspecified; T38.0X5A Adverse effect of glucocorticoids and synthetic analogues, initial encounter

== ENCOUNTER 2018-09-27 18:19 | Emergency (ER) | payer MEDICARE, OTHER ==
[~2018-09-27] VITALS: Ht 172.7 cm; Wt 76.4 kg
[~2018-09-27 18:19] MED LIST changes: +ACET65TA OR; -ACETAMINOPHEN 325 MG TAB As Ordered; +ADVA1AER2 IN; +ADVAIR DISKUS 250/50 INH; +ALBU83IN IN; +ALBU83IN INH; +ALBUTEROL INH; +ALLE25CA OR; +ALPH0.156 OU; +ASTE0.15; +ASTELIN; +ASTEPRO NASAL SPRAY; +AUGM875T28 PO; +AVEL1TAB2 PO; +AVEL1TAB3 PO; +AZIT-12 PO; +AZIT500T2 PO; +B-12100010 PO; +BABY81CH OR; +BACITAB PO; +BACT800T OR; +BACT800T5 PO; +BIAX500T OR; +BONI1TAB PO; +BRIM0.2S13 OU; +CALC1TAB12 PO; +CEFD1CAP8 PO; +CEFD300C41 PO; +CEFP200T PO; +CEFT1INJ65 IV; +CEFT2ADD IV; +CEFT2INJ IV; +CEFT500T OR; +CELE10TA PO; +CELE20TA PO; +CEPA1LOZ2 PO; +CETI10TA PO; +CIPR500T3 PO; +CLOT10TR MT; +COLA100C5 PO; +COMBAER6 INH; +COMBVENT INH; +DALI1TAB2 PO; +DELT1TAB PO; +DICL13PA TOP; +DILT240C47 PO; +DOXY100T PO; +DYMI137S; +FERR325T OR; +FERR325T3 PO; +FISHCAP PO; +FLAG500T PO; +FLUC10TA OR; +FLUC10TA PO; +FLUC200T2 PO; +FOLI1TAB OR; +FOLI1TAB11 PO; +GLIM2TAB PO; +GLIM4TAB PO; +GLYB1TAB29 OR; +GLYB25TA PO; +GUAI1200 PO; +GUAI1TAB PO; +GUAI400T9 PO; -HEPARIN 1,000 UNITS/ML 10ML VIAL (FOR RADIOLOGY& DIALYSIS ONLY) As Ordered; +HIZE20IN IV; +HYDR-3715 PO; +HYOS125TA PO; +IMOD2TAB16 PO; +INSULANT SC; +IPRA2IN INH; +IRON CR PO; -ISOVUE-300 61% 50ML VIAL (Q9967) As Ordered; +KETO0.4S OP; +KETO0.5S15 OD; +LASI20TA3 PO; +LEVA750T7 PO; -LIDOCAINE 2% MDV 20 ML VIAL As Ordered; +LIPI80TA PO; +LIVA2TAB PO; +LOPE2CAP PO; +LOPE2TAB3 PO; +LOPE2TAB5 PO; +LOPR50TA OR; +LOPRESSOR OR; +LORA0.5T11 PO; +MAGN250T7 PO; +MAGN400C3 PO; +MEGA D PO; +MEGA RED OMEGA PO; +META800T82 PO; +METF500T13 PO; +METH125VL IM; +METH125VL IV; +METO-743 OR; +METO50TA2 PO; +METO50TA4 OR; -MIDAZOLAM INJ 2 MG/2 ML VIAL (J2250) As Ordered; +MONT10TA2 PO; +MORP20SO3 PO; +MUCI1TAB18 PO; +MUCI600T34 PO; +MUCI600T37 PO; +MUCINEX DM PO; +MYCOSTATIN SS; +NEUR300C OR; +NEXI1CAP3 OR; +NITR0.4S SL; +NITR4TASL SL; +NYAM10003 SS; +NYST50SS PO; +OCTAGAM IV; +OMEP40CA2 PO; +OXYC1TAB23 PO; +OXYGEN; +PATIENT COMMENT; +PERC5TAB12 PO; +PERCOCET PO; +PERF20NE2 INH; +PERFOROMIST INH; +PLAV1TAB2 PO; +PLAV75TA2 OR; +PRAV20TA2 OR; +PRED-351 PO; +PRED10TA2 OR; +PRED10TA2 PO; +PRED20TA OR; +PRED20TA PO; +PRED50TA OR; +PRED50TA PO; +PREDNISOLONE; +PREDOPD; +PROB250C PO; +PROBCAP4 PO; -PROTAMINE SULF INJ 50 MG/5 ML VIAL (J2720) As Ordered; +PULM0.5S IN; +PULM0.5S INH; +PULM1SUS INH; +RAMI25CA OR; +RANI1TAB6 PO; +RANI300T OR; +RANI300T PO; +ROCE1INJ IV; +SALI0.9I2 IV; +SENN1TAB40 PO; +SIMB1SUS OU; +SIME80TA PO; +SING10TA32 PO; +SKEL800T5 OR; +SKEL800T97 PO; +SODI3NEB INH; +SPIR12.9 INH; +SPIR1CAP INH; +THEO1CAP2 PO; +THEO200T7 OR; +TIOT18INH INH; +TOPR50TA PO; +TRAV0.00; +TRAV04OPD OU; +TUDO1AER2 INH; +TUDORZA PRESSAIR INH; +TUSS1CAP5 PO; +TUSS1SUS2 PO; +TYLE1TAB5 PO; +TYLE325T5 PO; +VENTAER IN; +VENTOLIN; +VENTOLIN INH; +VICO5TAB OR; +VIGA0.02; +VIT D 2000 PO; +VIT D 4000 PO; +VITA10006 PO; +VITA2000 PO; +VITA200038 PO; +VITA250L PO; +VITA500T OR; +VITAMIN D 2 PO; +VITATAB11 PO; +ZANT300T OR; +ZITH250T OR; +ZOCO20TA PO; +[UNRECOGNIZED DRUG - CODE] INH; +[UNRECOGNIZED DRUG - CODE] IV; +[UNRECOGNIZED DRUG - CODE] IV; +[UNRECOGNIZED DRUG - CODE] PO; +[UNRECOGNIZED DRUG - CODE] SC; +[UNRECOGNIZED DRUG - OTHER]; +[UNRECOGNIZED DRUG - SUPPLY] EXT; +daliresp PO; -fentaNYL 100 MCG/2 ML INJECTION (J3010) As Ordered; +loperamide PO; +mucinex PO; +mucomyst INH; +omnicef PO
[2018-09-27 19:05] LABS: BASO % 0.3 % (0.0-1.0); EOS % 0.1 % (0.0-3.0); HEMATOCRIT 41.3 % (42.0-52.0); HEMOGLOBIN 14.3 g/dl (13.5-17.5); LYMPH # 1.7 10^3/uL (1.5-4.5); LYMPH % 11.8 % (24.0-44.0); MEAN CORPUSCULAR HEMOGLOBIN 32.4 pg (27.0-33.0); MEAN CORPUSCULAR HGB CONC 34.6 g/dl (32.0-36.5); MEAN CORPUSCULAR VOLUME 93.4 fl (80.0-96.0); MONO # 0.7 10^3/uL (0.0-0.8); MONO % 4.7 % (0.0-5.0); NEUTROPHILS # 11.8 10^3/uL (1.8-7.7); NEUTROPHILS % 82.4 % (36.0-66.0); PLATELET COUNT, AUTOMATED 338 10^3/uL (150-450); RED BLOOD COUNT 4.42 10^6/uL (4.30-6.10); WHITE BLOOD COUNT 14.3 10^3/uL (4.0-10.0)
[2018-09-27 19:20] LABS: INR 0.95; PROTHROMBIN TIME 12.8 SECONDS (12.1-14.4)
[2018-09-27 19:30] LABS: ALBUMIN 3.9 GM/DL (3.2-5.2); ALT/SGPT 36 U/L (12-78); BILIRUBIN,DIRECT < 0.1 MG/DL (0.0-0.2); BILIRUBIN,TOTAL 0.3 MG/DL (0.2-1.0); BLOOD UREA NITROGEN 10 MG/DL (7-18); CALCIUM LEVEL 9.7 MG/DL (8.8-10.2); CARBON DIOXIDE LEVEL 27 MEQ/L (21-32); CHLORIDE LEVEL 101 MEQ/L (98-107); CPK CREATINE PHOSPHOKINASE 147 U/L (39-308); CREATININE FOR GFR 0.93 MG/DL (0.70-1.30); GLOMERULAR FILTRATION RATE > 60.0 (>49); GLUCOSE, FASTING 79 MG/DL (70-100); LIPASE 90 U/L (73-393); MB/CK RELATIVE INDEX 2.38 (< OR =4); NT-PRO BNP 76 PG/ML (<125); POTASSIUM SERUM 4.3 MEQ/L (3.5-5.1); SODIUM LEVEL 137 MEQ/L (136-145); TOTAL PROTEIN 7.7 GM/DL (6.4-8.2); TROPONIN I < 0.02 NG/ML (< 0.10)
[2018-09-27 20:38] VITALS: BP 108/77
--- NOTE | 2018-09-27 23:27 | ECGEPIP ---
Stationary ECG Study [facility] - ED Test Date: 2018-09-27 Pat Name: MINOO CASTILLO Department: Room: - Gender: M Patient Manager: TC : 1950 Requested By: Mickie Bingham Order Number: [id number] Reading MD: Deshawn Brandon Measurements Intervals [place] Rate: 92 P: 22 ME: 135 QRS: 20 QRSD: 90 T: 62 QT: 352 QTc: 435 Interpretive Statements SINUS RHYTHM NONSPECIFIC T-WAVE ABNORMALITY BASELINE ARTIFACT AFFECTS INTERPRETATION SIMILAR TO 05/12/18 Electronically Signed On 09-27-2018 23:27:40 EDT by Deshawn Brandon
--- NOTE | 2018-09-28 08:26 | REP ---
CHEST X-RAY: SINGLE VIEW. HISTORY: Chest pain. COMPARISON STUDY: May 11, 2018 FINDINGS: There is mild bibasilar linear fibrosis similar to the prior study. Prior sternotomy wires are seen. Patient is status post what appears to be aortic valve replacement. Heart is mildly enlarged, unchanged. There are emphysematous changes in the upper lobes. No acute infiltrate. The aorta is somewhat tortuous. IMPRESSION: No acute infiltrate. Status post aortic valve replacement. Bibasilar fibrosis and bilateral upper lobe emphysema. Electronically Signed by Arnie Donaldson MD 09/28/2018 09:16 A
== END 2018-09-27 21:08 | disposition home or self-care (01) ==
LOC: M ED 18:19
DX: J44.9 Chronic obstructive pulmonary disease, unspecified (principal); I10 Essential (primary) hypertension; E78.5 Hyperlipidemia, unspecified; I25.10 Atherosclerotic heart disease of native coronary artery without angina pectoris; G47.33 Obstructive sleep apnea (adult) (pediatric); Z95.5 Presence of coronary angioplasty implant and graft; Z99.81 Dependence on supplemental oxygen; Z79.899 Other long term (current) drug therapy; Z79.52 Long term (current) use of systemic steroids; Z79.02 Long term (current) use of antithrombotics/antiplatelets; Z88.1 Allergy status to other antibiotic agents; Z88.8 Allergy status to other drugs, medicaments and biological substances; Z87.891 Personal history of nicotine dependence

== ENCOUNTER 2018-10-02 11:25 | Inpatient (IN) | payer MEDICARE, OTHER ==
[2018-10-01] MEDS: GLYCOPYRROLATE INH SCH (19:30)
[~2018-10-02] VITALS: Ht 172.7 cm; Wt 67.5 kg
[2018-10-02] MEDS ORDERED: LIVA2TAB PO (11:56)
[2018-10-02] MEDS ORDERED: PROBCAP14 PO (11:56)
[2018-10-02] MEDS ORDERED: BONI1TAB PO (11:56)
[2018-10-02] MEDS ORDERED: [UNRECOGNIZED DRUG - CODE] INH (11:56)
[2018-10-02] MEDS ORDERED: MUCI120T PO (11:56)
[2018-10-02] MEDS ORDERED: BRIM1OPD OU (11:56)
[2018-10-02] MEDS ORDERED: CELE20TA PO (11:56)
[2018-10-02 12:23] LABS: VENOUS BASE EXCESS -0.3 (-2.0-2.0); VENOUS HCO3 23.3 MEQ/L (23.0-27.0); VENOUS O2 SATURATION 94.7 % (60.0-80.0); VENOUS PARTIAL PRESSURE CO2 35.1 mmHg (38.0-50.0); VENOUS PARTIAL PRESSURE O2 72.7 mmHg (30.0-50.0); VENOUS STANDARD HCO3 24.2 MEQ/L; VENOUS TOTAL CO2 24.4 MEQ/L (24.0-28.0)
[2018-10-02 12:24] LABS: BASO % 0.1 % (0.0-1.0); EOS % 0.2 % (0.0-3.0); HEMATOCRIT 38.1 % (42.0-52.0); HEMOGLOBIN 13.2 g/dl (13.5-17.5); LYMPH # 0.5 10^3/uL (1.5-4.5); LYMPH % 2.9 % (24.0-44.0); MEAN CORPUSCULAR HGB CONC 34.6 g/dl (32.0-36.5); MEAN CORPUSCULAR VOLUME 92.5 fl (80.0-96.0); MONO % 5.4 % (0.0-5.0); NEUTROPHILS # 16.6 10^3/uL (1.8-7.7); NEUTROPHILS % 90.7 % (36.0-66.0); PLATELET COUNT, AUTOMATED 352 10^3/uL (150-450); RED BLOOD COUNT 4.12 10^6/uL (4.30-6.10); WHITE BLOOD COUNT 18.3 10^3/uL (4.0-10.0)
[2018-10-02 12:35] LABS: INR 0.95; PROTHROMBIN TIME 12.8 SECONDS (12.1-14.4)
--- NOTE | 2018-10-02 12:49 | REP ---
Chest one-view HISTORY: Cough Comparison: None The lungs are clear. The heart is normal in size. The pulmonary vasculature is normal in appearance. Impression: No acute disease. Electronically Signed by Wei Parker MD 10/02/2018 12:40 P
[2018-10-02] MEDS ORDERED: IPRATROPIUM 0.5MG/ALBUTEROL 2.5MG INH SOL UD 3ML (DUONEB)(J7620) NEB ONE (13:00)
[2018-10-02] MEDS ORDERED: ALBUTEROL SULFATE 2.5 MG/0.5 ML INH NEB SOLN INH ONE (13:00)
[2018-10-02 13:03] LABS: ALBUMIN 3.4 GM/DL (3.2-5.2); ALT/SGPT 40 U/L (12-78); BILIRUBIN,DIRECT 0.1 MG/DL (0.0-0.2); BILIRUBIN,TOTAL 0.4 MG/DL (0.2-1.0); BLOOD UREA NITROGEN 13 MG/DL (7-18); CALCIUM LEVEL 9.1 MG/DL (8.8-10.2); CARBON DIOXIDE LEVEL 25 MEQ/L (21-32); CHLORIDE LEVEL 102 MEQ/L (98-107); CPK CREATINE PHOSPHOKINASE 50 U/L (39-308); CREATININE FOR GFR 0.84 MG/DL (0.70-1.30); GLOMERULAR FILTRATION RATE > 60.0 (>49); GLUCOSE, FASTING 60 MG/DL (70-100); NT-PRO BNP 104 PG/ML (<125); POTASSIUM SERUM 3.7 MEQ/L (3.5-5.1); SODIUM LEVEL 135 MEQ/L (136-145); TOTAL PROTEIN 7.8 GM/DL (6.4-8.2); TROPONIN I < 0.02 NG/ML (< 0.10)
[2018-10-02] MEDS ORDERED: PIPERACILLIN/TAZOBACTAM SOD 3.375 GM in D5W MINI-BAG PLUS 50 ML IV ONE (13:15)
[2018-10-02] MEDS ORDERED: dexameTHASONE 4 MG/ML 1ML VIAL (J1100) IV ONE (13:15)
[2018-10-02 13:35] LABS: INFLUENZA A AMPLIFICATION NEGATIVE (NEGATIVE); INFLUENZA B AMPLIFICATION NEGATIVE (NEGATIVE)
[2018-10-02] MEDS ORDERED: META1TAB22 PO (13:51)
[2018-10-02] MEDS ORDERED: MUCI1TAB16 PO (13:51)
[2018-10-02] MEDS ORDERED: FLUC200T2 PO (13:51)
[2018-10-02] MEDS ORDERED: ASCO500T PO (13:51)
[2018-10-02] MEDS ORDERED: EQL50TAB2 PO (13:51)
[2018-10-02] MEDS ORDERED: ALBUTEROL SULFATE 2.5 MG/0.5 ML INH NEB SOLN NEB PRN (15:00)
--- NOTE | 2018-10-02 15:16 | HPEPDOC ---
General Date of Admission 10/02/18 Chief Complaint The patient is a 67-year-old male admitted with a reason for visit of SOB. Source: Patient, Family, RN/MD, Old records Exam Limitations: No limitations Associated Symptoms: Cough, Chills, Malaise, Shortness of breath, Weakness History of Present Illness 67 year old male with PMH of COPD steroid and oxygen dependent, chronic hypoxic respiratory failure, Bronchiectasis on chronic antibiotic cycles of 1 week on and 2 weeks off { alternating between cefdinir/ ciprofloxacin/bactrim}, Emphysema, Common variable immunodeficiency on IVIG , CAD s/p stents, PAD s/p femoral endarterectomy, Diabetes, glaucoma, hearing impairment, MYKEL on CPAP, hypertension, depression, Aortic valve replaced with bioprosthetic valve, chronic thoracic vertebral body compression fracture presented to the ED with increasing cough and SOB for the past 4 days with increased sputum production sometimes green sometimes green. He has been feeling very tired at home. He has also noted episodes of feeling cold and chills. He was here in the ED 5 days ago for retrosternal chest pain when he was ruled out for ACS and discharged home. After going home he started feeling bad from the next day and he believes either he may have picked up some infection then at the ED or it was alresdy starting and the pain was from there. In the ED he was found to have an elevated WBC of 18k, CXR did not show any acute changes does show emphysema, bronchiectatic changes , fibrosis at eh right base. CXR did not show any difference from the prior one. pateint probably has acute bronchitis with acute exacerbation of bronchiectasis. He was flu negative. will check full respiratory panel. Patient admitted for acute bronchitis with acute exacerbation of Bronchiectasis. Home Medications Scheduled Albuterol Sulf (Albuterol Sulfate) 2.5 Mg/3 Ml Nebu, 2.5 MG INH QID, (Reported) Ascorbic Acid (Ascorbic Acid) 500 Mg Tablet, 1,000 MG PO DAILY, (Reported) Brimonidine Tartrate (Alphagan P) 0.1% 5ML Drops, 1 DROP OU BID, (Reported) USES MORNING/DINNERTIME Budesonide (Pulmicort) 0.5 Mg/2 Ml Mely, 0.5 MG INH BID, (Reported) USED WITH PERFOROMIST, USES 30MIN AFTER ALBUTEROL/IPRATROPIUM NEB Calcium Citrate/Vitamin D3 (Calcium Citrate-Vit D3 Caplet) 1 Tab Tab, 1 TAB PO BID, (Reported) Cefdinir (Cefdinir) 300 Mg Cap, 300 MG PO ASDIRECTED, (Reported) TAKES BID FOR 2 WEEKS, THEN OFF FOR 2 WEEKS, STARTED ON 09/30 AT HS Cholecalciferol (Vitamin D3) (Vitamin D3) 2,000 Unit Cap, 2,000 UNIT PO DAILY, (Reported) Ciprofloxacin HCl (Ciprofloxacin HCl) 500 Mg Tab, 500 MG PO ASDIRECTED, (Reported) TAKES BID FOR 2 WEEKS, THEN OFF FOR 2 WEEKS Citalopram Hydrobromide (Celexa) 20 Mg Tablet, 20 MG PO QHS, (Reported) Clopidogrel Bisulfate (Plavix) 75 Mg Tab, 75 MG PO QHS, (Reported) Diltiazem HCl (Diltiazem 24Hr ER) 240 Mg Cap, 240 MG PO DAILY, (Reported) Ferrous Sulfate (Ferrous Sulfate) 325 Mg Tab, 325 MG PO DAILY, (Reported) Folic Acid (Folic Acid) 1 Mg Tab, 1 MG PO DAILY, (Reported) Formoterol Fumarate (Perforomist) 20 Mcg/2 Ml Neb, 20 MCG INH BID, (Reported) USED WITH PULMICORT, USES 30MIN AFTER ALBUTEROL/IPRATROPIUM NEB Glimepiride (Glimepiride) 4 Mg Tab, 4 MG PO BID, (Reported) Glycopyrrolate/Neb.accessories (Lonhala Magnair 25 Mcg Refill) 25 Mcg/1 Ml Vial.neb, 25 MCG INH BID, (Reported) USES 30 MIN PRIOR TO ALBUTEROL/IPRATROPIUM NEB Guaifenesin (Mucinex) 1,200 Mg Tab.er.12h, 1,200 MG PO BID, (Reported) Ibandronate Sodium (Boniva) 150 Mg Tablet, 150 MG PO QMONTH, (Reported) TAKES ON 10TH OF EACH MONTH Immun Glob G(IgG)/Pro/Iga 0-50 (Hizentra 10 Gram/50 ml Vial) 10 Gm/50 Ml Inj, 14 GM IV QWEEK, (Reported) SATURDAYS Ipratropium Haslett (Ipratropium Haslett) 0.5 Mg/2.5 Ml Soln, 0.5 MG INH TID, (Reported) MIXES WITH ALBUTEROL, USES 30 MIN AFTER LONHALA NEB Lactobacillus Acidophilus (Probiotic) 1 Each Capsule, 1 CAP PO DAILY, (Reported) Metformin HCl (Metformin HCl) 500 Mg Tab, 500 MG PO BID, (Reported) Montelukast Sodium (Singulair) 10 Mg Tab, 10 MG PO QHS, (Reported) Omeprazole (Omeprazole) 40 Mg Cap, 40 MG PO DAILY, (Reported) Pitavastatin Calcium (Livalo) 2 Mg Tablet, 2 MG PO QHS, (Reported) Prednisone (Prednisone) 20 Mg Tab, 20 MG PO DAILY, (Reported) Ranitidine HCl (Ranitidine HCl) 300 Mg Tab, 1 TAB PO QHS, (Reported) Sulfamethoxazole/Trimethoprim (Bactrim Ds Tablet) 1 Tab Tab, 1 TAB PO 3XW, (Reported) TAKES ON WEDNESDAY, WEDNESDAY AND WEDNESDAY Travoprost (Travatan Z) 50 Drop/2.5 Ml Soln, 1 DROP OU QHS, (Reported) Vitamin B Complex (Vitamin B Complex) 1 Each Tablet, 1 TAB PO DAILY, (Reported) Scheduled PRN Clotrimazole (Clotrimazole) 10 Mg Troc, 10 MG MT Q2H PRN for THRUSH, (Reported) Fluconazole (Fluconazole) 200 Mg Tablet, 200 MG PO QWEEK PRN for THRUSH, (Reported) Ipratropium/Albuterol Sulfate (Combivent Respimat 20-100 Mcg) 1 Aer Aer, 1 PUFF INH QID PRN for SHORTNESS OF BREATH, (Reported) Metaxalone (Metaxalone) 800 Mg Tablet, 800 MG PO TID PRN for BACK PAIN, (Reported) Nitroglycerin (Nitrostat) 0.4 Mg Subl, 0.4 MG SL Q5MP PRN for CHEST PAIN, (Reported) Nystatin (Nystatin Oral Susp) 5 Ml Susp, 4 ML PO QID PRN for THRUSH, (Reported) Allergies Coded Allergies: aspirin (Verified Allergy, Mild, RECTAL BLEEDING, 10/02/18) levofloxacin (Verified Allergy, Mild, MUSCLE CRAMPING, 10/02/18) quinidine (Verified Allergy, Mild, HIVES, 10/02/18) fexofenadine (Verified Allergy, Unknown, anaphylaxis, 10/02/18) furosemide (Verified Allergy, Unknown, dizziness, 10/02/18) metoprolol (Verified Allergy, Unknown, d/t lung condition, 10/02/18) pravastatin (Verified Allergy, Unknown, 10/02/18) Past Medical History Medical History Old chronic thoracic vertebral body compression fractures. Bronchiectasis on rotating cycle of antibiotics. COPD Chronic hypoxic respiratory failure. Hypogammaglobulinemia due to Common variable immunodeficiency receives IVIG CAD with stents PAD s/p Left femoral endarterectomy in Mar 2018 Steroid induced diabetes Chronic steroid dependence Depression Hypertension MYKEL on CPAP Aortic stenosis s/p Aortic valve replacement with Bioprosthetic valve. Chronic anemia Iron deficiency Vit B12 deficiency Oral thrush osteoporosis Surgical History Invasive aortic valve replacement with bioprosthetic valve. Left femoral endarterectomy with patch repair recently in March 2018 Social History * Smoker: Denies Alcohol: Denies Drugs: denies A-FIB/CHADSVASC A-FIB History Current/History of A-Fib/PAF?: No Review of Systems Constitutional: Reports: Chills, Malaise, Fatigue Eyes: Denies: Pain, Vision change ENT: Denies: Head Aches, Ear Pain, Dysphagia Skin: Denies: Rash, Lesions, Breakdown Pulmonary: Reports: Dyspnea, Cough Cardiovascular: Reports: Chest Pain, Palpitations Gastrointestinal: Denies: Nausea, Vomiting, Abdominal Pain, Diarrhea Genitourinary: Denies: Dysuria, Frequency, Incontinence, Retention Hematologic: Denies: Bruising, Bleeding Excessively Musculoskeletal: Reports: Back Pain Physical Examination General Exam: Positive: Alert, Cooperative, No Acute Distress Eye Exam: Positive: PERRLA, Conjunctiva & lids normal, EOMI; Negative: Sclera icteric ENT Exam: Positive: Atraumatic, Mucous membr. moist/pink, Pharynx Normal Neck Exam: Positive: Supple; Negative: JVD, thyromegaly Chest Exam: Positive: Rales (bilateral coarse crackles right > left. ), Rhonchi (faint expiratory wheezing), Diminished Heart Exam: Positive: Tachycardic, Regular Rhythm, Normal S1, Normal S2 Telemetry: Positive: Sinus, Tachycardia Abdomen Exam: Positive: Normal bowel sounds, Soft; Negative: Tenderness, Hepatospenomegaly Extremity Exam: Positive: Normal pulses; Negative: Clubbing, Cyanosis, Edema Skin Exam: Positive: Nl turgor and temperature; Negative: Breakdown, Lesion Vital Signs Vital Signs Date Time Temp Pulse Resp B/P (MAP) Pulse Ox O2 Delivery O2 Flow Rate FiO2 10/02/18 12:51 99.7 10/02/18 11:29 117 28 148/82 (104) 88 Nasal Cannula 2.0 Laboratory Data Labs 24H Laboratory Tests 2 10/02/18 12:11: Immature Granulocyte % (Auto) 0.7, White Blood Count 18.3H, Red Blood Count 4.12L, Hemoglobin 13.2L, Hematocrit 38.1L, Mean Corpuscular Volume 92.5, Mean Corpuscular Hemoglobin 32.0, Mean Corpuscular Hemoglobin Concent 34.6, Red Cell Distribution Width 13.0, Platelet Count 352, Neutrophils (%) (Auto) 90.7H, Lymphocytes (%) (Auto) 2.9L, Monocytes (%) (Auto) 5.4H, Eosinophils (%) (Auto) 0.2, Basophils (%) (Auto) 0.1, Neutrophils # (Auto) 16.6H, Lymphocytes # (Auto) 0.5L, Monocytes # (Auto) 1.0H, Eosinophils # (Auto) 0.0, Basophils # (Auto) 0.0, Nucleated Red Blood Cells % (auto) 0.0, Prothrombin Time 12.8, Prothromb Time International Ratio 0.95, Blood Gas Bicarbonate Standard 24.2, Venous Blood pH 7.440H, Venous Blood Partial Pressure CO2 35.1L, Venous Blood Partial Pressure O2 72.7H, Venous Blood Total Carbon Dioxide 24.4, Venous Blood HCO3 23.3, Venous Blood Oxygen Saturation 94.7H, Venous Blood Base Excess -0.3, Anion Gap 8, Glomerular Filtration Rate > 60.0, Lactic Acid Level 1.4, Calcium Level 9.1, Aspartate Amino Transf (AST/SGOT) 26, Alanine Aminotransferase (ALT/SGPT) 40, Alkaline Phosphatase 90, Total Bilirubin 0.4, Direct Bilirubin 0.1, Total Creatine Kinase 50, Creatine Kinase MB 1.0, Creatine Kinase MB Relative Index 2.60, Troponin I < 0.02, GJ-Ujh-[id number]-Type Natriuretic Peptide 104, Total Protein 7.8, Albumin 3.4, Albumin/Globulin Ratio 0.77L, Thyroid Stimulating Hormone (TSH) 1.510 10/02/18 12:52: Influenza Type A (RT-PCR) NEGATIVE, Influenza Type B (RT-PCR) NEGATIVE CBC/BMP Laboratory Tests 10/02/18 12:11 Red Blood Count 4.12 L, Mean Corpuscular Volume 92.5, Mean Corpuscular Hemoglobin 32.0, Mean Corpuscular Hemoglobin Concent 34.6, Red Cell Distribution Width 13.0, Neutrophils (%) (Auto) 90.7 H, Lymphocytes (%) (Auto) 2.9 L, Monocy qasim (%) (Auto) 5.4 H, Eosinophils (%) (Auto) 0.2, Basophils (%) (Auto) 0.1, Neutrophils # (Auto) 16.6 H, Lymphocytes # (Auto) 0.5 L, Monocytes # (Auto) 1.0 H, Eosinophils # (Auto) 0.0, Basophils # (Auto) 0.0 Microbiology Microbiology 10/02/18 Blood Culture, Received Pending 10/02/18 Blood Culture, Received Pending 10/02/18 Gram Stain - Final, Resulted 10/02/18 Sputum Culture, Resulted Pending Assessment/Plan 67 year old male with PMH of COPD steroid and oxygen dependent, chronic hypoxic respiratory failure, Bronchiectasis on chronic antibiotic cycles of 1 week on and 2 weeks off { alternating between cefdinir/ ciprofloxacin/bactrim}, Emphysema, Common variable immunodeficiency on IVIG , CAD s/p stents, PAD s/p femoral endarterectomy, Diabetes, glaucoma, hearing impairment, MYKEL on CPAP, hypertension, depression, Aortic valve replaced with bioprosthetic valve, chronic thoracic vertebral body compression fracture presented to the ED with increasing cough and SOB for the past 4 days with increased sputum production sometimes green sometimes green. He has been feeling very tired at home. He has also noted episodes of feeling cold and chills. He was here in the ED 5 days ago for retrosternal chest pain when he was ruled out for ACS and discharged home. After going home he started feeling bad from the next day and he believes either he may have picked up some infection then at the ED or it was alresdy starting and the pain was from there. In the ED he was found to have an elevated WBC of 18k, CXR did not show any acute changes does show emphysema, bronchiectatic changes , fibrosis at eh right base. CXR did not show any difference from the prior one. pateint probably has acute bronchitis with acute exacerbation of bronchiectasis. He was flu negative. will check full respiratory panel. Patient admitted for acute bronchitis with acute exacerbation of Bronchiectasis. Acute Bronchitis with Acute flare of Bronchiectasis cannot rule out underlying pneumonia will give Zosyn continue glycopyrrolate with duonebs, chest vest percussion. COPD with chronic respiratory failure with hypoxia. Now in exacerbation. got a dose of dexamethasone in ED . Will continue his home steroids. On chronic steroids. continue duonebs, performist , budesonide, prednisone 20 mg oxygen. Old chronic thoracic vertebral body compression fractures. due to osteoporosis has chronic back pain Hypogammaglobulinemia due to Common variable immunodeficiency receives IVIG every wednesday. CAD with stents continue plavix, stain PAD s/p Left femoral endarterectomy in Mar 2018 Depression continue home meds Hypertension continue diltiazem MYKEL on CPAP may use own CPAP. Aortic stenosis s/p Aortic valve replacement with Bioprosthetic valve. no issues Chronic anemia Iron deficiency, Vit B12 deficiency continue supplementation Gi prophylaxis with omeprazole and famotidine DVT prophylaxis has been ordered. Plan / VTE VTE Prophylaxis Ordered?: Yes DENVER RAMOS MD Oct 02, 2018 14:25
[2018-10-02] MEDS ORDERED: GLUCAGON FOR INJ 1 MG VIAL (J1610) SC PRN (15:30)
[2018-10-02] MEDS ORDERED: DEXTROSE 50% 50 ML SYRINGE IV PRN (15:30)
[2018-10-02] MEDS ORDERED: GLUCOSE 4 GM CHEW TABLET PO PRN (15:30)
[2018-10-02] MEDS: IPRATROPIUM 0.5MG/ALBUTEROL 2.5MG INH SOL UD 3ML (DUONEB)(J7620) NEB SCH ×2 (16:00→19:57)
--- NOTE | 2018-10-02 16:46 | ECGEPIP ---
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
[2018-10-02] MEDS: ENOXAPARIN 40 MG/0.4 ML SYRINGE (J1650) SC SCH (17:56)
[2018-10-02] MEDS: LACTOBACILLUS ACIDOPHILUS CAP (BACID) PO SCH (17:57)
[2018-10-02] MEDS: HumaLOG INSULIN (NovoLOG) PER UNIT SC SCH ×2 (17:57→21:02)
[2018-10-02] MEDS: GLIMEPIRIDE 2 MG TAB PO SCH (17:57)
[2018-10-02] MEDS: BUDESONIDE 0.5 MG/2 ML INHALATION SUSPENSION INH SCH (19:57)
[2018-10-02] MEDS: FORMOTEROL FUMARATE 20 MCG/2 ML INHALATION SOLUTION (PERFOROMIST) INH SCH (19:57)
[2018-10-02 21:00] VITALS: BP 140/83
[2018-10-02] MEDS: BRIMONIDINE 0.1% OPHTH SOLN 5 ML OU SCH (21:01)
[2018-10-02] MEDS: guaiFENesin ER 600 MG TAB PO SCH (21:01)
[2018-10-02] MEDS: CitaloPRAM (CeleXA) 20 MG TAB PO SCH (21:01)
[2018-10-02] MEDS: MONTELUKAST 10 MG TAB PO SCH (21:01)
[2018-10-02] MEDS: LATANOPROST 0.005% OPHTH SOLN 2.5 ML OU SCH (21:01)
[2018-10-02] MEDS: FAMOTIDINE 20 MG TAB PO SCH (21:01)
[2018-10-02] MEDS: CLOPIDOGREL 75 MG TAB PO SCH (21:01)
[2018-10-02] MEDS: PIPERACILLIN/TAZOBACTAM SOD 3.375 GM in D5W MINI-BAG PLUS 50 ML IV SCH (21:02)
[2018-10-02 22:00] VITALS: BP 140/83
[2018-10-03] MEDS: PIPERACILLIN/TAZOBACTAM SOD 3.375 GM in D5W MINI-BAG PLUS 50 ML IV SCH ×4 (02:17→20:37)
[2018-10-03 06:00] VITALS: BP 157/88
[2018-10-03 06:48] LABS: HEMATOCRIT 37.6 % (42.0-52.0); HEMOGLOBIN 12.8 g/dl (13.5-17.5); MEAN CORPUSCULAR HEMOGLOBIN 31.4 pg (27.0-33.0); MEAN CORPUSCULAR VOLUME 92.4 fl (80.0-96.0); PLATELET COUNT, AUTOMATED 363 10^3/uL (150-450); RED BLOOD COUNT 4.07 10^6/uL (4.30-6.10); WHITE BLOOD COUNT 13.3 10^3/uL (4.0-10.0)
[2018-10-03 07:08] LABS: ALBUMIN 3.1 GM/DL (3.2-5.2); ALT/SGPT 37 U/L (12-78); BILIRUBIN,TOTAL 0.3 MG/DL (0.2-1.0); BLOOD UREA NITROGEN 19 MG/DL (7-18); CALCIUM LEVEL 9.2 MG/DL (8.8-10.2); CARBON DIOXIDE LEVEL 27 MEQ/L (21-32); CHLORIDE LEVEL 102 MEQ/L (98-107); CREATININE FOR GFR 0.88 MG/DL (0.70-1.30); GLOMERULAR FILTRATION RATE > 60.0 (>49); GLUCOSE, FASTING 156 MG/DL (70-100); POTASSIUM SERUM 4.2 MEQ/L (3.5-5.1); SODIUM LEVEL 136 MEQ/L (136-145); TOTAL PROTEIN 7.3 GM/DL (6.4-8.2)
[2018-10-03] MEDS: GLYCOPYRROLATE INH SCH ×2 (07:30→19:30)
[2018-10-03] MEDS: FORMOTEROL FUMARATE 20 MCG/2 ML INHALATION SOLUTION (PERFOROMIST) INH SCH ×2 (07:41→20:53)
[2018-10-03] MEDS: IPRATROPIUM 0.5MG/ALBUTEROL 2.5MG INH SOL UD 3ML (DUONEB)(J7620) NEB SCH ×4 (07:42→20:53)
[2018-10-03] MEDS: BUDESONIDE 0.5 MG/2 ML INHALATION SUSPENSION INH SCH ×2 (07:42→20:53)
[2018-10-03] MEDS: ENOXAPARIN 40 MG/0.4 ML SYRINGE (J1650) SC SCH (09:00)
[2018-10-03] MEDS: BACTRIM 160MG/800MG DS TAB PO SCH (09:13)
[2018-10-03] MEDS: OMEPRAZOLE 20 MG CAP PO SCH (09:13)
[2018-10-03] MEDS: LACTOBACILLUS ACIDOPHILUS CAP (BACID) PO SCH ×2 (09:13→17:22)
[2018-10-03] MEDS: guaiFENesin ER 600 MG TAB PO SCH ×2 (09:13→20:37)
[2018-10-03] MEDS: FERROUS SULFATE 325MG TAB PO SCH (09:13)
[2018-10-03] MEDS: GLIMEPIRIDE 2 MG TAB PO SCH ×2 (09:14→17:22)
[2018-10-03] MEDS: predniSONE 20 MG TAB PO SCH (09:14)
[2018-10-03] MEDS: ASCORBIC ACID 500 MG TAB PO SCH (09:14)
[2018-10-03] MEDS: FOLIC ACID 1 MG TAB PO SCH (09:14)
[2018-10-03] MEDS: BRIMONIDINE 0.1% OPHTH SOLN 5 ML OU SCH ×2 (09:15→20:38)
[2018-10-03] MEDS: HumaLOG INSULIN (NovoLOG) PER UNIT SC SCH ×4 (09:15→20:38)
--- NOTE | 2018-10-03 09:30 | IPN ---
DATE: 10/03/2018 PULMONARY PROGRESS NOTE Mr. Velasquez is seen on [address] [facility]. He is in his bed. He is able to speak in full sentences without dyspnea. He states he came in because of increased copious amounts of mucus and difficulty breathing. He is actually starting to feel slightly better today. He has been on Zosyn and steroids. Sputum cultures pending. I had seen him in my office last week. He was complaining about chest tightness but no increased mucus production, fevers or chills. At that time, did not sound as rhonchorous on exam as he does as outlined below. 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 This was done and he returned home. After that he had copious amounts of mucus. This morning he has had no fevers overnight; however, the patient remains on high dose steroids with a history of immunodeficiency. He does have some abdominal discomfort from the severity of coughing. PHYSICAL EXAMINATION: Temperature is 97, pulse is 80, respiratory rate is 18, blood pressure is 157/88 with a mean arterial pressure 111, oxygen saturations 97% on 3 liters, which is well above his normal. General: Awake, alert and oriented. Affect and mood are appropriate. Nutrition and hygiene are fair. HEENT: Sclerae clear and anicteric. Pupils equal, react to light. Mucous membranes are moist without lesions. Oropharynx without erythema or exudate. Neck is supple. No tracheal deviation or mass. Lymphs: No cervical, supraclavicular, or axillary adenopathy. Cardiac: Distant S1, S2, regular without murmur, rub or gallop. Point of maximum impulse (PMI) is nondisplaced. No lower extremity edema. Pulmonary: Diffuse rhonchi, which are new. He does have a significantly prolonged expiratory phase, which is not new, and prolonged expiratory wheeze, which again is not new. He is not using any accessory muscle use at this point in time. Abdomen is slightly distended but fairly potty. No discernible hepatosplenomegaly. No mass or hernia. Extremities: No cyanosis, clubbing or edema. Skin: No rash, jaundice or bruising. Musculoskeletal: Some muscle wasting without joint effusion or evidence of recent fracture. Laboratory evaluation shows white blood cell count of 13.3, hemoglobin of 12.8, platelet count of 363. His white count is down from 18.3. Sputum culture is pending. Appears to have different bacteria in it and states many gram-positive cocci in pairs and few gram-negative cocci. I have him repeating of a sputum culture. IMPRESSION: Acute on chronic obstructive pulmonary disease (COPD) exacerbation, bronchiectasis with either bronchiectatic exacerbation versus pneumonia. I do not see a pneumonia on chest x-ray. His white count is elevated. I agree with broad-spectrum antibiotics. We will obtain a second sputum culture to ensure no evidence of Pseudomonas. He is clinically slowly improving. RECOMMENDATIONS: Frequent nebulization, efforts towards mucociliary clearance.
--- NOTE | 2018-10-03 10:41 | IPNPDOC ---
Subjective Date Seen The patient was seen on 10/03/18. Subjective Chief Complaint/HPI Increased cough and sputum production and SOB. Events since last encounter Feels a little better today, still has some abdominal wall soreness from the coughing bouts. His sputum production is reducing. His SOB is improving, no fever or chills, no chest tighness today. No nausea or vomiting or diarrhea. Objective Physical Examination General Exam: Positive: Alert, Cooperative, No Acute Distress Eye Exam: Positive: PERRLA, Conjunctiva & lids normal, EOMI; Negative: Sclera icteric ENT Exam: Positive: Atraumatic, Mucous membr. moist/pink, Pharynx Normal Neck Exam: Positive: Supple; Negative: JVD, thyromegaly Chest Exam: Positive: Rales (bilateral coarse crackles right > left. ), Rhonchi (bilateral ronchi), Wheezing (faint expiratory wheezing heard. ), Diminished Heart Exam: Positive: Tachycardic, Regular Rhythm, Normal S1, Normal S2 Telemetry: Positive: Sinus, Tachycardia Abdomen Exam: Positive: Normal bowel sounds, Soft; Negative: Tenderness, Hepatospenomegaly Extremity Exam: Positive: Normal pulses; Negative: Clubbing, Cyanosis, Edema Skin Exam: Positive: Nl turgor and temperature; Negative: Breakdown, Lesion Assessment /Plan Assessment 67 year old male with PMH of COPD steroid and oxygen dependent, chronic hypoxic respiratory failure, Bronchiectasis on chronic antibiotic cycles of 1 week on and 2 weeks off { alternating between cefdinir/ ciprofloxacin/bactrim}, Emphysema, Common variable immunodeficiency on IVIG , CAD s/p stents, PAD s/p femoral endarterectomy, Diabetes, glaucoma, hearing impairment, MYKEL on CPAP, hypertension, depression, Aortic valve replaced with bioprosthetic valve, chronic thoracic vertebral body compression fracture presented to the ED with increasing cough and SOB for the past 4 days with increased sputum production sometimes green sometimes green. He has been feeling very tired at home. He has also noted episodes of feeling cold and chills. He was here in the ED 5 days ago for retrosternal chest pain when he was ruled out for ACS and discharged home. After going home he started feeling bad from the next day and he believes either he may have picked up some infection then at the ED or it was alresdy starting and the pain was from there. In the ED he was found to have an elevated WBC of 18k, CXR did not show any acute changes does show emphysema, bronchiectatic changes , fibrosis at eh right base. CXR did not show any difference from the prior one. patient probably has acute bronchitis with acute exacerbation of bronchiectasis. He was flu negative. will check full respiratory panel. Patient admitted for acute bronchitis with acute exacerbation of Bronchiectasis. Acute Bronchitis with Acute flare of Bronchiectasis cannot rule out underlying pneumonia though XCR does not show any pneumonia. will give Zosyn continue glycopyrrolate with duonebs, chest vest percussion. follow up sputum cultures. COPD with chronic respiratory failure with hypoxia. Now in exacerbation. got a dose of dexamethasone in ED . Will continue his home steroids. On chronic steroids. continue duonebs, performist , budesonide, prednisone 20 mg oxygen. Old chronic thoracic vertebral body compression fractures. due to osteoporosis has chronic back pain Hypogammaglobulinemia due to Common variable immunodeficiency receives IVIG every wednesday. CAD with stents continue plavix, stain PAD s/p Left femoral endarterectomy in Mar 2018 Depression continue home meds Hypertension continue diltiazem MYKEL on CPAP may use own CPAP. Aortic stenosis s/p Aortic valve replacement with Bioprosthetic valve. no issues Chronic anemia Iron deficiency, Vit B12 deficiency continue supplementation Gi prophylaxis with omeprazole and famotidine DVT prophylaxis has been ordered. Plan/VTE VTE Prophylaxis Ordered?: Yes VS, I&O, 24H, Fishbone Vital Signs/I&O Vital Signs Date Time Temp Pulse Resp B/P (MAP) Pulse Ox O2 Delivery O2 Flow Rate FiO2 10/03/18 09:14 80 157/88 10/03/18 08:00 3.0 10/03/18 06:00 97.0 18 97 10/02/18 16:17 Nasal Cannula I&O- Last 24 Hours up to 6 AM 10/03/18 06:00 Intake Total 290 ml Output Total 1600 ml Balance -1310 ml Laboratory Data 24H LABS Laboratory Tests 2 10/02/18 12:11: Immature Granulocyte % (Auto) 0.7, White Blood Count 18.3H, Red Blood Count 4.12L, Hemoglobin 13.2L, Hematocrit 38.1L, Mean Corpuscular Volume 92.5, Mean Corpuscular Hemoglobin 32.0, Mean Corpuscular Hemoglobin Concent 34.6, Red Cell Distribution Width 13.0, Platelet Count 352, Neutrophils (%) (Auto) 90.7H, Lymphocytes (%) (Auto) 2.9L, Monocytes (%) (Auto) 5.4H, Eosinophils (%) (Auto) 0.2, Basophils (%) (Auto) 0.1, Neutrophils # (Auto) 16.6H, Lymphocytes # (Auto) 0.5L, Monocytes # (Auto) 1.0H, Eosinophils # (Auto) 0.0, Basophils # (Auto) 0.0, Nucleated Red Blood Cells % (auto) 0.0, Prothrombin Time 12.8, Prothromb Time International Ratio 0.95, Blood Gas Bicarbonate Standard 24.2, Venous Blood pH 7.440H, Venous Blood Partial Pressure CO2 35.1L, Venous Blood Partial Pressure O2 72.7H, Venous Blood Total Carbon Dioxide 24.4, Venous Blood HCO3 23.3, Venous Blood Oxygen Saturation 94.7H, Venous Blood Base Excess -0.3, Anion Gap 8, Glomerular Filtration Rate > 60.0, Lactic Acid Level 1.4, Calcium Level 9.1, Aspartate Amino Transf (AST/SGOT) 26, Alanine Aminotransferase (ALT/SGPT) 40, Alkaline Phosphatase 90, Total Bilirubin 0.4, Direct Bilirubin 0.1, Total Creatine Kinase 50, Creatine Kinase MB 1.0, Creatine Kinase MB Relative Index 2.60, Troponin I < 0.02, UP-Oho-I-Type Natriuretic Peptide 104, Total Protein 7.8, Albumin 3.4, Albumin/Globulin Ratio 0.77L, Thyroid Stimulating Hormone (TSH) 1.510 10/02/18 12:52: Influenza Type A (RT-PCR) NEGATIVE, Influenza Type B (RT-PCR) NEGATIVE 10/02/18 17:49: Bedside Glucose (Misc Panel) 369H 10/02/18 20:38: Bedside Glucose (Misc Panel) 390H 10/03/18 06:34: Nucleated Red Blood Cells % (auto) 0.0, Anion Gap 7L, Glomerular Filtration Rate > 60.0, Blood Urea Nitrogen 19H, Creatinine 0.88, Sodium Level 136, Potassium Level 4.2, Chloride Level 102, Carbon Dioxide Level 27, Calcium Level 9.2, Aspartate Amino Transf (AST/SGOT) 17, Alanine Aminotransferase (ALT/SGPT) 37, Alkaline Phosphatase 86, Total Bilirubin 0.3, Total Protein 7.3, Albumin 3.1L, Albumin/Globulin Ratio 0.74L CBC/BMP Laboratory Tests 10/02/18 12:11 Red Blood Count 4.12 L, Mean Corpuscular Volume 92.5, Mean Corpuscular Hemog lobin 32.0, Mean Corpuscular Hemoglobin Concent 34.6, Red Cell Distribution Width 13.0, Neutrophils (%) (Auto) 90.7 H, Lymphocytes (%) (Auto) 2.9 L, Monocytes (%) (Auto) 5.4 H, Eosinophils (%) (Auto) 0.2, Basophils (%) (Auto) 0.1, Neutrophils # (Auto) 16.6 H, Lymphocytes # (Auto) 0.5 L, Monocytes # (Auto) 1.0 H, Eosinophils # (Auto) 0.0, Basophils # (Auto) 0.0 10/03/18 06:34 Red Blood Count 4.07 L, Mean Corpuscular Volume 92.4, Mean Corpuscular Hemoglobin 31.4, Mean Corpuscular Hemoglobin Concent 34.0, Red Cell Distribution Width 13.0, Calcium Level 9.2, Aspartate Amino Transf (AST/SGOT) 17, Alanine Aminotransferase (ALT/SGPT) 37, Alkaline Phosphatase 86, Total Bilirubin 0.3, Total Protein 7.3, Albumin 3.1 L Microbiology Microbiology 10/02/18 Blood Culture, Received Pending 10/02/18 Blood Culture, Received Pending 10/02/18 Gram Stain - Final, Resulted 10/02/18 Sputum Culture, Resulted Pending DENVER RAMOS MD Oct 03, 2018 10:41
[2018-10-03 14:25] VITALS: BP 116/80
[2018-10-03] MEDS: CLOPIDOGREL 75 MG TAB PO SCH (20:37)
[2018-10-03] MEDS: MONTELUKAST 10 MG TAB PO SCH (20:37)
[2018-10-03] MEDS: CitaloPRAM (CeleXA) 20 MG TAB PO SCH (20:37)
[2018-10-03] MEDS: LATANOPROST 0.005% OPHTH SOLN 2.5 ML OU SCH (20:38)
[2018-10-03] MEDS: FAMOTIDINE 20 MG TAB PO SCH (20:38)
[2018-10-03 22:00] VITALS: BP 146/83
[2018-10-03 22:02] VITALS: BP 146/83
[2018-10-04] MEDS: PIPERACILLIN/TAZOBACTAM SOD 3.375 GM in D5W MINI-BAG PLUS 50 ML IV SCH ×4 (01:40→19:50)
[2018-10-04 06:15] VITALS: BP 145/79
[2018-10-04 06:47] LABS: BASO # 0.1 10^3/uL (0.0-0.2); BASO % 0.5 % (0.0-1.0); EOS # 0.2 10^3/uL (0.0-0.50); EOS % 1.6 % (0.0-3.0); HEMATOCRIT 34.8 % (42.0-52.0); HEMOGLOBIN 12.1 g/dl (13.5-17.5); LYMPH # 2.3 10^3/uL (1.5-4.5); LYMPH % 18.1 % (24.0-44.0); MEAN CORPUSCULAR HEMOGLOBIN 32.4 pg (27.0-33.0); MEAN CORPUSCULAR HGB CONC 34.8 g/dl (32.0-36.5); MONO % 7.6 % (0.0-5.0); NEUTROPHILS % 70.5 % (36.0-66.0); PLATELET COUNT, AUTOMATED 341 10^3/uL (150-450); RED BLOOD COUNT 3.74 10^6/uL (4.30-6.10); WHITE BLOOD COUNT 12.8 10^3/uL (4.0-10.0)
[2018-10-04 07:15] LABS: BLOOD UREA NITROGEN 16 MG/DL (7-18); CALCIUM LEVEL 8.3 MG/DL (8.8-10.2); CARBON DIOXIDE LEVEL 28 MEQ/L (21-32); CHLORIDE LEVEL 105 MEQ/L (98-107); CREATININE FOR GFR 0.78 MG/DL (0.70-1.30); GLOMERULAR FILTRATION RATE > 60.0 (>49); GLUCOSE, FASTING 111 MG/DL (70-100); POTASSIUM SERUM 3.7 MEQ/L (3.5-5.1); SODIUM LEVEL 138 MEQ/L (136-145)
[2018-10-04] MEDS: GLYCOPYRROLATE INH SCH ×2 (07:30→19:30)
[2018-10-04] MEDS: IPRATROPIUM 0.5MG/ALBUTEROL 2.5MG INH SOL UD 3ML (DUONEB)(J7620) NEB SCH ×4 (07:40→20:54)
[2018-10-04] MEDS: FORMOTEROL FUMARATE 20 MCG/2 ML INHALATION SOLUTION (PERFOROMIST) INH SCH ×2 (07:40→20:54)
[2018-10-04] MEDS: BUDESONIDE 0.5 MG/2 ML INHALATION SUSPENSION INH SCH ×2 (07:40→20:54)
[2018-10-04] MEDS: FERROUS SULFATE 325MG TAB PO SCH (08:28)
[2018-10-04] MEDS: GLIMEPIRIDE 2 MG TAB PO SCH ×2 (08:28→18:19)
[2018-10-04] MEDS: LACTOBACILLUS ACIDOPHILUS CAP (BACID) PO SCH ×2 (08:28→18:19)
[2018-10-04] MEDS: ASCORBIC ACID 500 MG TAB PO SCH (08:28)
[2018-10-04] MEDS: OMEPRAZOLE 20 MG CAP PO SCH (08:28)
[2018-10-04] MEDS: HumaLOG INSULIN (NovoLOG) PER UNIT SC SCH ×4 (08:28→21:06)
[2018-10-04] MEDS: guaiFENesin ER 600 MG TAB PO SCH ×2 (08:29→21:06)
[2018-10-04] MEDS: predniSONE 20 MG TAB PO SCH (08:29)
[2018-10-04] MEDS: FOLIC ACID 1 MG TAB PO SCH (08:29)
[2018-10-04] MEDS: BRIMONIDINE 0.1% OPHTH SOLN 5 ML OU SCH ×2 (08:30→21:07)
--- NOTE | 2018-10-04 11:35 | CCN ---
DATE: 10/04/2018 Mr. Velasquez is seen on [facility]. He is in his bed and speaking in complete sentences. He states he is actually feeling better today. He states the chest pressure and tightness that he had has resolved. He states he feels he is mobilizing more sputum. He denies fevers or chills. He states he believes his breathing has been improving to some degree as well although he does still continue to have baseline dyspnea. He is on broad-spectrum antibiotics with Zosyn. He remains on oral prednisone. PHYSICAL EXAMINATION: Vitals: Temperature is 97.2, pulse 86, respiratory rate 20, blood pressure is 145/79, and pulse ox is 97% on 3 liters. General: Alert and oriented times three. Mood and affect appropriate. HEENT: Head is normocephalic, atraumatic. Sclerae clear. Pupils are reactive. Moist mucous membranes. Tongue is midline. Neck: Neck is supple. No cervical lymphadenopathy. No jugular venous distention (JVD. Trachea is midline. Cardiac: Regular rate and rhythm without obvious murmur. Pulmonary: The patient has scattered rhonchi and wheezing. Prolonged expiratory phase. No accessory muscle use. Abdomen: Positive bowel sounds, soft, nontender. No rebound or guarding. Extremities: No clubbing, cyanosis or edema. LABORATORY DATA: WBC 12.8, hemoglobin 12.1, hematocrit 34.8, platelets 341. Sodium 138, potassium 3.7, chloride 105, carbon dioxide 28, BUN 16, creatinine 0.78, glucose 111, calcium 8.3. Blood cultures showed no growth after 24 hours times two. Sputum culture grew Serratia marcescens, additional sputum culture is pending. ASSESSMENT/PLAN: 1. Acute on chronic obstructive pulmonary disease exacerbation. 2. Bronchiectasis. Bronchiectatic exacerbation versus pneumonia. White counts is down a little bit to 12.8 from 13.3 yesterday. His sputum culture grew Serratia and an additional sputum culture is pending. The patient is on broad-spectrum antibiotics with Zosyn. He is showing clinical improvement. He is afebrile. Continue with antibiotics. Continue to monitor. The patient is getting Nebs. Continue efforts towards mucociliary clearance.
[2018-10-04 14:00] VITALS: BP 153/97
--- NOTE | 2018-10-04 14:07 | IPNPDOC ---
Date Seen The patient was seen on 10/04/18. Progress Note SUBJECTIVE: Patient tells me that he is breathing more easily he is less short of breath and he is getting back to his normal. He tells me that he still has some difficulty with activity OBJECTIVE PHYSICAL EXAMINATION: VITAL SIGNS: Please see below. GENERAL: Elderly man appears older than stated age sitting comfortably in bed no acute distress HEENT: Cranial nerves II through XII are grossly intact CARDIOVASCULAR: S1 S2 regular heart sounds appreciated. RESPIRATORY: Prolonged expiratory phase no audible rails and 3 muscle use speaking complete sentences. ABDOMINAL: Obese bowel sounds present abdomen soft EXTREMITIES: no clubbing cyanosis or edema LABORATORY DATA, IMAGING STUDIES, MICROBIOLOGY: Please see below. DVT prophylaxis ordered?: Teds patient refused pharmacological agents ASSESSMENT AND PLAN: This is a 67-year-old man with cough and shortness of breath. 1. Cough and shortness of breath: Likely secondary to Acute Bronchitis with Acute flare of Bronchiectasis. I suspect less likely underlying pneumonia and more likely bronchiectasis. He appears to be improved with his current measures and as such we'll continue with Zosyn continue with sven, chest PT. follow up repeat sputum cultures. Pulmonary help is greatly appreciated he appears to be approaching his baseline respiratory status. Continue with Mucinex singular with desonide, Bactrim. Consider transitioning Zosyn to by mouth antibiotic tomorrow 2. COPD with chronic respiratory failure with hypoxia: Possibly some acute exacerbation he's been continued on his regular home steroid dosing as well as nebulizers performed with desonide, he is approaching his baseline respiratory status once again pulmonary help greatly appreciated. 3. Old chronic thoracic vertebral body compression fractures: due to osteoporosis chronic steroid use has chronic back pain, stable 4. 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 Patient is chronically immunocompromised secondary to long-standing steroid use as well he is on Bactrim for prophylaxis 5. CAD with stents: Stable continue plavix, stain no beta jenny likely secondary to his advanced pulmonary disease 6. PAD: s/p Left femoral endarterectomy in Mar 2018, continue with statin and Plavix 7. Depression: continue Celexa 8. Hypertension: continue diltiazem 9. MYKEL on CPAP:may use own CPAP. 10. Aortic stenosis: s/p Aortic valve replacement with Bioprosthetic valve.no issues 11. Chronic anemia: Iron deficiency, Vit B12 deficiency continue supplementation 12. Gastroesophageal reflux disease: Continue with omeprazole and famotidine DISPOSITION: Possibly home within the next 24-48 hours. VS, I&O, 24H, Fishbone Vital Signs/I&O Vital Signs Date Time Temp Pulse Resp B/P (MAP) Pulse Ox O2 Delivery O2 Flow Rate FiO2 10/04/18 08:29 86 145/79 10/04/18 08:00 3.0 10/04/18 06:15 97.2 20 97 10/02/18 16:17 Nasal Cannula I&O- Last 24 Hours up to 6 AM 10/04/18 06:00 Intake Total 1140 ml Output Total 950 ml Balance 190 ml Laboratory Data 24H LABS Laboratory Tests 2 10/03/18 17:08: Bedside Glucose (Misc Panel) 357H 10/03/18 20:16: Bedside Glucose (Misc Panel) 233H 10/04/18 06:36: Immature Granulocyte % (Auto) 1.7, White Blood Count 12.8H, Red Blood Count 3.74L, Hemoglobin 12.1L, Hematocrit 34.8L, Mean Corpuscular Volume 93.0, Mean Corpuscular Hemoglobin 32.4, Mean Corpuscular Hemoglobin Concent 34.8, Red Cell Distribution Width 13.1, Platelet Count 341, Neutrophils (%) (Auto) 70.5H, Lymphocytes (%) (Auto) 18.1L, Monocytes (%) (Auto) 7.6H, Eosinophils (%) (Auto) 1.6, Basophils (%) (Auto) 0.5, Neutrophils # (Auto) 9.0H, Lymphocytes # (Auto) 2.3, Monocytes # (Auto) 1.0H, Eosinophils # (Auto) 0.2, Basophils # (Auto) 0.1, Nucleated Red Blood Cells % (auto) 0.0, Anion Gap 5L, Glomerular Filtration Rate > 60.0, Blood Urea Nitrogen 16, Creatinine 0.78, Sodium Level 138, Potassium Level 3.7, Chloride Level 105, Carbon Dioxide Level 28, Calcium Level 8.3L 10/04/18 12:18: Bedside Glucose (Misc Panel) 184H CBC/BMP Laboratory Tests 10/04/18 06:36 Red Blood Count 3.74 L, Mean Corpuscular Volume 93.0, Mean Corpuscular Hemoglobin 32.4, Mean Corpuscular Hemoglobin Concent 34.8, Red Cell Distribution Width 13.1, Neutrophils (%) (Auto) 70.5 H, Lymphocytes (%) (Auto) 18.1 L, Monocytes (%) (Auto) 7.6 H, Eosinophils (%) (Auto) 1.6, Basophils (%) (Auto) 0.5, Neutrophils # (Auto) 9.0 H, Lymphocytes # (Auto) 2.3, Monocytes # (Auto) 1.0 H, Eosinophils # (Auto) 0.2, Basophils # (Auto) 0.1, Calcium Level 8.3 L Microbiology Microbiology 10/02/18 Blood Culture - Preliminary, Resulted No Growth after 48 hours. All Specime... 10/02/18 Blood Culture - Preliminary, Resulted No Growth after 48 hours. All Specime... 10/04/18 Gram Stain - Final, Resulted 10/04/18 Sputum Culture, Resulted Pending 10/02/18 Gram Stain - Final, Resulted 10/02/18 Sputum Culture - Preliminary, Resulted Serratia Marcescens RICH GREEN MD Oct 04, 2018 14:07
[2018-10-04 20:00] VITALS: BP 118/76
[2018-10-04] MEDS: LATANOPROST 0.005% OPHTH SOLN 2.5 ML OU SCH (21:05)
[2018-10-04] MEDS: CLOPIDOGREL 75 MG TAB PO SCH (21:06)
[2018-10-04] MEDS: MONTELUKAST 10 MG TAB PO SCH (21:06)
[2018-10-04] MEDS: FAMOTIDINE 20 MG TAB PO SCH (21:06)
[2018-10-04] MEDS: CitaloPRAM (CeleXA) 20 MG TAB PO SCH (21:06)
[2018-10-05] MEDS: PIPERACILLIN/TAZOBACTAM SOD 3.375 GM in D5W MINI-BAG PLUS 50 ML IV SCH ×2 (02:37→09:30)
[2018-10-05 06:00] VITALS: BP 149/88
[2018-10-05] MEDS: GLYCOPYRROLATE INH SCH (07:30)
[2018-10-05] MEDS: HumaLOG INSULIN (NovoLOG) PER UNIT SC SCH (07:30)
[2018-10-05] MEDS: FORMOTEROL FUMARATE 20 MCG/2 ML INHALATION SOLUTION (PERFOROMIST) INH SCH (07:48)
[2018-10-05] MEDS: IPRATROPIUM 0.5MG/ALBUTEROL 2.5MG INH SOL UD 3ML (DUONEB)(J7620) NEB SCH ×2 (07:49→11:43)
[2018-10-05] MEDS: BUDESONIDE 0.5 MG/2 ML INHALATION SUSPENSION INH SCH (07:49)
[2018-10-05 08:13] LABS: BASO # 0.1 10^3/uL (0.0-0.2); BASO % 0.9 % (0.0-1.0); EOS # 0.3 10^3/uL (0.0-0.50); HEMATOCRIT 35.7 % (42.0-52.0); HEMOGLOBIN 12.2 g/dl (13.5-17.5); LYMPH # 2.7 10^3/uL (1.5-4.5); LYMPH % 18.5 % (24.0-44.0); MEAN CORPUSCULAR HEMOGLOBIN 32.2 pg (27.0-33.0); MEAN CORPUSCULAR HGB CONC 34.2 g/dl (32.0-36.5); MEAN CORPUSCULAR VOLUME 94.2 fl (80.0-96.0); MONO # 1.1 10^3/uL (0.0-0.8); MONO % 7.6 % (0.0-5.0); NEUTROPHILS # 9.6 10^3/uL (1.8-7.7); PLATELET COUNT, AUTOMATED 372 10^3/uL (150-450); RED BLOOD COUNT 3.79 10^6/uL (4.30-6.10); WHITE BLOOD COUNT 14.4 10^3/uL (4.0-10.0)
[2018-10-05 08:31] LABS: BLOOD UREA NITROGEN 16 MG/DL (7-18); CALCIUM LEVEL 8.5 MG/DL (8.8-10.2); CARBON DIOXIDE LEVEL 28 MEQ/L (21-32); CHLORIDE LEVEL 107 MEQ/L (98-107); CREATININE FOR GFR 0.78 MG/DL (0.70-1.30); GLOMERULAR FILTRATION RATE > 60.0 (>49); GLUCOSE, FASTING 80 MG/DL (70-100); POTASSIUM SERUM 3.6 MEQ/L (3.5-5.1); SODIUM LEVEL 141 MEQ/L (136-145)
[2018-10-05] MEDS: BRIMONIDINE 0.1% OPHTH SOLN 5 ML OU SCH (09:00)
[2018-10-05] MEDS: BACTRIM 160MG/800MG DS TAB PO SCH (09:00)
[2018-10-05 09:29] VITALS: BP 139/87
[2018-10-05] MEDS: ASCORBIC ACID 500 MG TAB PO SCH (09:29)
[2018-10-05] MEDS: OMEPRAZOLE 20 MG CAP PO SCH (09:29)
[2018-10-05] MEDS: predniSONE 20 MG TAB PO SCH (09:29)
[2018-10-05] MEDS: guaiFENesin ER 600 MG TAB PO SCH (09:29)
[2018-10-05] MEDS: FERROUS SULFATE 325MG TAB PO SCH (09:29)
[2018-10-05] MEDS: GLIMEPIRIDE 2 MG TAB PO SCH (09:29)
[2018-10-05] MEDS: FOLIC ACID 1 MG TAB PO SCH (09:30)
[2018-10-05] MEDS: LACTOBACILLUS ACIDOPHILUS CAP (BACID) PO SCH (09:30)
--- NOTE | 2018-10-05 10:32 | CCN ---
DATE OF SERVICE: 10/05/2018 Mr. Velasquez is seen on 4 [facility]. He overall feels that he is doing much better. He states that the chest tightness and pressure has completely resolved. He states he is breathing better and feeling like he has less of a productive cough. He denies fevers or chills. PHYSICAL EXAMINATION: Vitals: Temperature 98.0, pulse 84, respiratory rate 18, blood pressure 139/87, pulse ox 96% on 2 liters. General: Alert and oriented times three. Mood and affect appropriate. The patient is sitting up in bed and talks in complete sentences. HEENT: Head is normocephalic, atraumatic. Sclerae clear. Pupils reactive. Moist mucous membranes. Tongue is midline. Neck: Neck is supple. No cervical lymphadenopathy. No jugular venous distention (JVD). Trachea is midline. Cardiac: Regular rate and rhythm. No murmur. Pulmonary: The patient has scattered expiratory wheezing. There is prolonged expiratory phase. No accessory muscle use. Abdomen: Positive bowel sounds, soft, nontender. No rebound or guarding. Extremities: No clubbing, cyanosis or edema. LABORATORY DATA: WBC 14.4, hemoglobin 12.2, hematocrit 35.7, platelets 372. Sodium 141, potassium 3.6, chloride 107, carbon dioxide 28, BUN 16, creatinine 0.78, glucose 80, calcium 8.5. Sputum collected on 10/02/2018 grew Serratia marcescens and Moraxella catarrahalis. Additional sputum culture collected on 10/04/2018 is pending. Blood culture shows no growth after 48 hours times two. ASSESSMENT/PLAN: Acute on chronic obstructive pulmonary disease exacerbation/bronchiectasis/bronchiectatic exacerbation versus pneumonia. The patient is continuing to show overall improvement. The patient is currently on IV Zosyn. Plan is likely that will transition him over to oral antibiotics and likely will be able to be discharged today. He is on chronic prednisone therapy. He is on Bactrim 3 days a week for prophylaxis. He is on nebulized budesonide and formoterol. Will continue nebs and continue efforts towards mucociliary clearance. The patient should followup with Dr. Kline at pulmonary a couple weeks after discharge.
[2018-10-05] MEDS ORDERED: CEFD300CAP PO (11:50)
--- NOTE | 2018-10-05 17:50 | DSES ---
DATE OF ADMISSION: 10/02/2018 DATE OF DISCHARGE: 10/05/2018 DISCHARGE DIAGNOSIS: Cough and shortness of breath. SECONDARY DIAGNOSES: 1. Bronchiectasis exacerbation. 2. Chronic obstructive pulmonary disease (COPD) exacerbation. 3. Chronic back pain. 4. Hypogammaglobulinemia. 5. Common variable immunodeficiency. 6. Chronic hypoxic respiratory failure. 7. Coronary artery disease. 8. Peripheral arterial disease. 9. Depression. 10. Hypertension. 11. Obstructive sleep apnea. 12. Aortic stenosis. 13. Chronic anemia. 14. Gastroesophageal reflux disease. HOSPITAL COURSE: The patient is a 67-year-old man with known frequent exacerbation of bronchiectasis and chronic obstructive pulmonary disease (COPD) with chronic 20 mg daily steroid dependence and rotating antibiotic cycles of cefdinir and ciprofloxacin. He is also is on chronic Bactrim for pneumocystis pneumonia (PCP) prophylaxis related to immunosuppressive state from chronic steroid use. He presented with cough and shortness of breath. It was felt to be related to an exacerbation of bronchiectasis as well as possibly some <<1:06>> MICHAELA. His steroids were not titrated up and he was continued on 20 mg. He was treated with nebulizer treatments and on IV Zosyn for several days. His respiratory status did improve. He also did use DuoNebs and chest physical therapy (PT). He was seen in consultation by Dr. Kline of pulmonary whose help was greatly appreciated. The patient did return to his baseline respiratory status. SUBJECTIVE: This morning, the patient tells me that his cough is resolving. His shortness of breath has improved. He feels back to normal and would like to go home. OBJECTIVE: VITAL SIGNS: Temperature 98, pulse 81, <<1:34>> blood pressure 149/88, oxygen saturation 96% on two liters. GENERAL: He is a very pleasant, obese, man sitting up in bed, awake, alert, oriented, speaking in complete sentences. He does not appear to be in any acute distress. NEUROLOGIC: Cranial nerves II-XII are grossly intact. HEENT: He has moist mucous membranes. No elevation of central venous pressure (CVP). He is wearing nasal cannula. CARDIOVASCULAR: S1, S2, regular. RESPIRATORY: Prolonged expiratory phase. No audible wheeze today. ABDOMEN: Obese. EXTREMITIES: No clubbing, cyanosis, or edema. In general, he does have a pink puffer phenotype. LABORATORY STUDIES: WBC 14.1, hemoglobin 12.2, platelet count 372. Chemistry Panel: Sodium 141, potassium 3.6, chloride 107, bicarbonate 28, BUN 16, creatinine 0.7. MICROBIOLOGY: Sputum culture is positive for Serratia marcescens and Moraxella catarrhalis, otherwise negative. IMAGING: He did have a chest x-ray at the time of his admission on 10/02/2018 that revealed no acute disease. ASSESSMENT AND PLAN: This is a 67-year-old man with cough and shortness of breath. 1. Cough and shortness of breath, likely secondary to acute exacerbation of bronchiectasis and probably acute bronchitis, less likely any pneumonia. He did improve with several days of Zosyn. He was continued on DuoNebs and chest physical therapy (PT). Pulmonary help was greatly appreciated. He is at his baseline respiratory status. Continue with Singulair, Mucinex, budesonide, Bactrim prophylaxis, chronic 20 mg prednisone. I will transition him to complete a 10-day course of antibiotics on cefdinir at pulmonary recommendations. I have discussed the case with Dr. Kline. 2. Chronic obstructive pulmonary disease (COPD) with chronic hypoxic respiratory failure. He did have some acute exacerbation and worsening of his chronic hypoxic respiratory failure. At this time, he has improved to his baseline. We did not elevated his steroids during this hospitalization. Continue with his medications as outlined above. He will followup with Dr. Kline within two weeks. 3. Chronic back pain. He has old chronic thoracic vertebral body compression fractures, likely osteoporosis secondary to chronic steroid use. Back pain is stable. Followup with his primary care provider (PCP). 4. Hypogammaglobulinemia due to common variable immunodeficiency. He received intravenous immunoglobulin (IVIG) every Wednesday. He is chronically immunocompromised due to longstanding steroid use and is on Bactrim prophylaxis for this. 5. Coronary artery disease, status post stents. He is on Plavix, statin. No beta jenny secondary to his advanced pulmonary disease. 6. Peripheral arterial disease, status post left femoral endarterectomy in March 2018. Continue with statin and Plavix. 7. Depression. He is continued on Celexa. 8. Hypertension. He is continued on diltiazem. 9. Obstructive sleep apnea. He is compliant with continuous positive airway pressure (CPAP). 10. Aortic stenosis, status post aortic bioprosthetic valve replacement. 11. Chronic anemia related to B12 and iron deficiency. He is continued on his home supplementation. 12. Gastroesophageal reflux disease. He is continued on omeprazole and Pepcid. DISPOSITION: He is being discharged home. He is at his functional baseline and his clinical syndrome has improved. He is to followup with Dr. Kline within two weeks, followup with his primary care provider (PCP) within seven days. Activity is as tolerated. His diet is as prior to admission. He is to return to the emergency room (ER) if his symptoms worsen. MEDICATIONS AT THE TIME OF DISCHARGE: - cefdinir 300 mg by mouth twice a day for seven days - albuterol sulfate 2.5 mg nebulizer four times a day - vitamin C 1 gram daily - Alphagan one drop in each eye twice a day - 0.1% budesonide 0.5 mg per 2 mL suspension 0.5 mg inhaled twice a day - calcium/vitamin D3 one tablet twice a day - cefdinir 300 mg twice a day for two weeks and then off for two weeks - vitamin D3 2000 units daily - ciprofloxacin 500 mg as directed for the two weeks and then off for two weeks - Celexa 20 mg at bedtime - Plavix 75 mg at bedtime - clotrimazole 10 mg every two hours as needed for thrush - diltiazem extended release 240 mg daily - ferrous sulfate 325 mg daily - fluconazole 200 mg weekly as needed for thrush - folic acid 1 mg daily - Perforomist 20 mcg inhaled twice a day - glimepiride 4 mg twice a day - Mucinex 1200 mg twice a day - Boniva 150 mg every month on the of each month - immunoglobulin 14 grams every Wednesday intravenously - ipratropium solution three times a day as needed nebulizer inhaler - Combivent 20/100 one puff four times a day as needed for shortness of breath - metaxalone 800 mg three times a day as needed for back pain - Bacid one capsule daily - metformin 500 mg twice a day - Singulair 10 mg at bedtime - Nitrostat 0.4 mg sublingually every five minutes as needed for chest pain - Nystatin 4 mL suspension four times a day as needed for oral thrush - omeprazole 40 mg daily - pitavastatin 2 mg at bedtime - prednisone 20 mg daily - ranitidine 300 mg at bedtime - Bactrim three times a week Wednesday, Wednesday, Wednesday - Travatan one drop daily at bedtime - vitamin B complex one tablet daily 50 minutes spent organizing disposition.
== END 2018-10-05 13:14 | disposition home or self-care (01) | DRG 191 ==
LOC: M ED 11:25 → EEVIPCON 14:46 → M ED INP 14:46 → M MS4PR 16:37
PROVIDERS: ADMIT Internal Medicine Nephrology; ATTEND Internal Medicine
DX: J47.1 Bronchiectasis with (acute) exacerbation (principal); J96.11 Chronic respiratory failure with hypoxia; D83.9 Common variable immunodeficiency, unspecified; B37.0 Candidal stomatitis; I25.10 Atherosclerotic heart disease of native coronary artery without angina pectoris; E11.51 Type 2 diabetes mellitus with diabetic peripheral angiopathy without gangrene; H40.9 Unspecified glaucoma; G47.33 Obstructive sleep apnea (adult) (pediatric); I10 Essential (primary) hypertension; K21.9 Gastro-esophageal reflux disease without esophagitis; F32.9 Major depressive disorder, single episode, unspecified; E53.8 Deficiency of other specified B group vitamins; D50.9 Iron deficiency anemia, unspecified; M80.08XD Age-related osteoporosis with current pathological fracture, vertebra(e), subsequent encounter for fracture with routine healing; Z95.3 Presence of xenogenic heart valve; Z95.5 Presence of coronary angioplasty implant and graft; Z99.81 Dependence on supplemental oxygen; Z79.84 Long term (current) use of oral hypoglycemic drugs; Z79.52 Long term (current) use of systemic steroids; Z79.899 Other long term (current) drug therapy; Z88.1 Allergy status to other antibiotic agents; Z88.5 Allergy status to narcotic agent; Z88.8 Allergy status to other drugs, medicaments and biological substances

== ENCOUNTER 2018-10-26 02:39 | Inpatient (IN) | payer MEDICARE, OTHER ==
[~2018-10-26] VITALS: Ht 172.7 cm; Wt 76.0 kg
[~2018-10-26 02:39] MED LIST changes: +ASCO500T PO; +BRIM1OPD OU; +CEFD300CAP PO; +EQL50TAB2 PO; +META1TAB22 PO; +MUCI120T PO; +MUCI1TAB16 PO; +PROBCAP14 PO; +[UNRECOGNIZED DRUG - CODE] INH
[2018-10-26] MEDS ORDERED: methylPREDNISolone INJ 125 MG/2 ML VIAL (J2930) IV ONE (03:00)
[2018-10-26] MEDS ORDERED: LORazepam 2 MG/ML VIAL (J2060) IV ONE (03:00)
[2018-10-26 03:05] LABS: BASO # 0.1 10^3/uL (0.0-0.2); BASO % 0.5 % (0.0-1.0); EOS # 0.1 10^3/uL (0.0-0.50); EOS % 0.6 % (0.0-3.0); HEMATOCRIT 42.6 % (42.0-52.0); HEMOGLOBIN 14.3 g/dl (13.5-17.5); LYMPH # 0.9 10^3/uL (1.5-4.5); LYMPH % 8.3 % (24.0-44.0); MEAN CORPUSCULAR HEMOGLOBIN 32.9 pg (27.0-33.0); MEAN CORPUSCULAR HGB CONC 33.6 g/dl (32.0-36.5); MEAN CORPUSCULAR VOLUME 97.9 fl (80.0-96.0); MONO # 0.9 10^3/uL (0.0-0.8); MONO % 7.7 % (0.0-5.0); NEUTROPHILS # 9.1 10^3/uL (1.8-7.7); NEUTROPHILS % 82.1 % (36.0-66.0); PLATELET COUNT, AUTOMATED 250 10^3/uL (150-450); RED BLOOD COUNT 4.35 10^6/uL (4.30-6.10)
[2018-10-26] MEDS: IPRATROPIUM 0.5MG/ALBUTEROL 2.5MG INH SOL UD 3ML (DUONEB)(J7620) NEB PRN ×3 (03:05→03:16)
[2018-10-26 03:35] LABS: ABG BASE EXCESS 1.7 (-2.0-2.0); ABG HCO3 29.4 MEQ/L (22.0-26.0); ABG PARTIAL PRESSURE CO2 59.5 mmHg (35.0-45.0); ABG PARTIAL PRESSURE O2 184.5 mmHg (75.0-100.0); ABG TOTAL CO2 31.2 MEQ/L (23.0-31.0); ABG pH (ARTERIAL) 7.312 UNITS (7.350-7.450)
[2018-10-26 03:43] LABS: BLOOD UREA NITROGEN 13 MG/DL (7-18); CALCIUM LEVEL 8.6 MG/DL (8.8-10.2); CARBON DIOXIDE LEVEL 30 MEQ/L (21-32); CHLORIDE LEVEL 103 MEQ/L (98-107); CPK CREATINE PHOSPHOKINASE 106 U/L (39-308); CREATININE FOR GFR 1.03 MG/DL (0.70-1.30); GLOMERULAR FILTRATION RATE > 60.0 (>49); GLUCOSE, FASTING 144 MG/DL (70-100); MB/CK RELATIVE INDEX 1.98 (< OR =4); NT-PRO BNP 210 PG/ML (<125); POTASSIUM SERUM 4.2 MEQ/L (3.5-5.1); SODIUM LEVEL 141 MEQ/L (136-145); TROPONIN I 0.03 NG/ML (< 0.10)
[2018-10-26] MEDS ORDERED: BACITAB PO (04:06)
[2018-10-26] MEDS ORDERED: ACETAMINOPHEN TAB 650MG DOSE (2X325MG) PO ONE (04:30)
--- NOTE | 2018-10-26 06:35 | REPVR ---
EXAM: CT Chest Without Contrast EXAM DATE/TIME: 10/26/2018 4:22 AM CLINICAL HISTORY: 67 years old, male; Signs and symptoms; Shortness of breath; Additional info: Fever, bronciectasis R/O pneumonia TECHNIQUE: Imaging protocol: Axial computed tomography images of the chest without intravenous contrast. Coronal and sagittal reformatted images were created and reviewed. 3D rendering: MIP reconstructed images were created and reviewed. Radiation optimization: All CT scans at this facility use at least one of these dose optimization techniques: automated exposure control; mA and/or kV adjustment per patient size (includes targeted exams where dose is matched to clinical indication); or iterative reconstruction. COMPARISON: CT Chest without contrast 12/01/2017 8:19 AM FINDINGS: Lungs: There is extensive centrilobular lung emphysema. There is a small area of scarring with volume loss in the right middle lobe, unchanged. There is small patchy opacity in the medial right lung base. Minimal subsegmental atelectatic changes seen in the left lung base. There is bronchial wall thickening. Minimal chronic changes seen in the lingula. There is a small calcified plaque in the left lung (axial image 57). Pleural space: Normal. No pneumothorax. No pleural effusion. Heart: There is severe coronary vascular calcifications versus stent. The patient status post aortic root repair. Mediastinum: Layering mucus seen in the trachea. Aorta: There is fusiform aneurysmal dilatation of the ascending aorta measuring up to 5.1 cm, grossly unchanged. There is significant calcification of the aortic arch and descending thoracic aorta. Lymph nodes: Unremarkable. No enlarged lymph nodes. Bones/joints: There is diffuse bony osteopenia. There is mild chronic compression deformity of L1 vertebral body, unchanged. There is moderate compression deformity of T9 and T10, unchanged. There is interval development of severe compression deformity of T8 vertebral body. There is mild T7 and moderate T6 chronic compression deformity. There is interval development of L2 compression deformity. Soft tissues: Unremarkable. IMPRESSION: 1. Severe centrilobular emphysematous lung changes with focal areas of scarring in the right middle lobe and lingula, grossly unchanged. 2. Mild bronchial wall thickening suggestive of an element of bronchitis. 3. More prominent bronchial wall thickening in the right lung base associated with small patchy opacity suggestive of early pneumonia. 4. Status post aortic root/valve repair with no change in the fusiform ascending aortic aneurysm measuring 5.1 cm. 5. Multiple thoracic and lumbar spine compression deformities as described above. Compression deformities at T8 and L2 vertebral bodies were not seen on the prior exam, an exact age cannot be discerned. Correlate with symptoms. If indicated MRI may be obtained for further evaluation. Electronically signed by: Diego Arreola On 10/26/2018 06:35:13 AM
--- NOTE | 2018-10-26 06:41 | HPEPDOC ---
General Date of Admission October 26, 2018 at 05:35 Date of Service: October 26, 2018 Chief Complaint The patient is a 67-year-old male admitted with a reason for visit of Acute Bronchitis & Bronchiolitis. Source: Patient, Family, RN/MD, Old records Exam Limitations: Clinical conditions, Hard of hearing Severity: Severe Associated Symptoms: Cough, Diaphoresis, Fever, Chills, Shortness of breath, Increased agitation History of Present Illness 67 year old male with PMH of COPD steroid and oxygen dependent, chronic hypoxic respiratory failure, Bronchiectasis on chronic antibiotic cycles of 2 week on and 2 weeks off { alternating between cefdinir/ ciprofloxacin/}. Bactrim prophylaxis on mon, wed, fri, Emphysema, Common variable immunodeficiency on IVIG , CAD s/p stents, PAD s/p femoral endarterectomy, Diabetes, glaucoma, hearing impairment, MYKEL on CPAP, hypertension, depression, Aortic valve replaced with bioprosthetic valve, chronic thoracic vertebral body compression fracture presented to the ED with increasing shortness of breath for 3 days, fever and chills for 1 days, increased cough and sputum production for 1 day. Patient was recently hospitalized here from 10/02 to 10/05 for exacerbation of his bronchiectasis and copd exacerbation. He was treated with zosyn then discharged home with cefdinir which he finished as instructed. He went for a cardiac cath 2 days ago and report was good did not get any more stents. His breathing was already a little worse than usual that day but it became worse the next day. He also developed chills and a fever at home. His breathing was very noisy and he had increased cough. Then overnight his breathing became so bad that he could not speak in full sentences and he could not lay down. So he was brought to the ED. In the ED on arrival he was very anxious as he needed a dose of ativan to calm him down. He also got duonebs and methyl prednisone. He was febrile to 102.3. He had a CT chest done. His ABG showed mild CO2 retention. He was admitted for Acute on chronic respiratory failure with hypercarbia and hypoxia, COPD exacerbation and exacerbation of bronchiectasis and acute bronchitis. Home Medications Scheduled Albuterol Sulf (Albuterol Sulfate) 2.5 Mg/3 Ml Nebu, 2.5 MG INH QID, (Reported) Ascorbic Acid (Ascorbic Acid) 500 Mg Tablet, 1,000 MG PO DAILY, (Reported) Brimonidine Tartrate (Alphagan P) 0.1% 5ML Drops, 1 DROP OU BID, (Reported) USES MORNING/DINNERTIME Budesonide (Pulmicort) 0.5 Mg/2 Ml Mely, 0.5 MG INH BID, (Reported) USED WITH PERFOROMIST, USES 30MIN AFTER ALBUTEROL/IPRATROPIUM NEB Calcium Citrate/Vitamin D3 (Calcium Citrate-Vit D3 Caplet) 1 Tab Tab, 1 TAB PO BID, (Reported) Cefdinir (Cefdinir) 300 Mg Cap, 300 MG PO ASDIRECTED, (Reported) TAKES BID FOR 2 WEEKS, THEN OFF FOR 2 WEEKS, STARTED ON 09/30 AT HS Cholecalciferol (Vitamin D3) (Vitamin D3) 2,000 Unit Cap, 2,000 UNIT PO DAILY, (Reported) Ciprofloxacin HCl (Ciprofloxacin HCl) 500 Mg Tab, 500 MG PO ASDIRECTED, (Reported) TAKES BID FOR 2 WEEKS, THEN OFF FOR 2 WEEKS Citalopram Hydrobromide (Celexa) 20 Mg Tablet, 20 MG PO QHS, (Reported) Clopidogrel Bisulfate (Plavix) 75 Mg Tab, 75 MG PO QHS, (Reported) Diltiazem HCl (Diltiazem 24Hr ER) 240 Mg Cap, 240 MG PO DAILY, (Reported) Ferrous Sulfate (Ferrous Sulfate) 325 Mg Tab, 325 MG PO DAILY, (Reported) Folic Acid (Folic Acid) 1 Mg Tab, 1 MG PO DAILY, (Reported) Formoterol Fumarate (Perforomist) 20 Mcg/2 Ml Neb, 20 MCG INH BID, (Reported) USED WITH PULMICORT, USES 30MIN AFTER ALBUTEROL/IPRATROPIUM NEB Glimepiride (Glimepiride) 4 Mg Tab, 4 MG PO BID, (Reported) Glycopyrrolate/Neb.accessories (Lonhala Magnair 25 Mcg Refill) 25 Mcg/1 Ml Vial.neb, 25 MCG INH BID, (Reported) USES 30 MIN PRIOR TO ALBUTEROL/IPRATROPIUM NEB Guaifenesin (Mucinex) 1,200 Mg Tab.er.12h, 1,200 MG PO BID, (Reported) Ibandronate Sodium (Boniva) 150 Mg Tablet, 150 MG PO QMONTH, (Reported) TAKES ON OF EACH MONTH Immun Glob G(IgG)/Pro/Iga 0-50 (Hizentra 10 Gram/50 ml Vial) 10 Gm/50 Ml Inj, 12 GM IV QWEEK, (Reported) SATURDAYS Ipratropium Arley (Ipratropium Arley) 0.5 Mg/2.5 Ml Soln, 0.5 MG INH TID, (Reported) MIXES WITH ALBUTEROL, USES 30 MIN AFTER LONHALA NEB L.acidoph/L.bulg/B.bif/S.therm (Bacid Caplet) 1 Each Tablet, 1 TAB PO DAILY, (Reported) Metformin HCl (Metformin HCl) 500 Mg Tab, 500 MG PO BID, (Reported) Montelukast Sodium (Singulair) 10 Mg Tab, 10 MG PO QHS, (Reported) Omeprazole (Omeprazole) 40 Mg Cap, 40 MG PO DAILY, (Reported) Pitavastatin Calcium (Livalo) 2 Mg Tablet, 2 MG PO QHS, (Reported) Prednisone (Prednisone) 20 Mg Tab, 20 MG PO DAILY, (Reported) Ranitidine HCl (Ranitidine HCl) 300 Mg Tab, 1 TAB PO QHS, (Reported) Sulfamethoxazole/Trimethoprim (Bactrim Ds Tablet) 1 Tab Tab, 1 TAB PO 3XW, (Reported) TAKES ON WEDNESDAY, WEDNESDAY AND WEDNESDAY Travoprost (Travatan Z) 50 Drop/2.5 Ml Soln, 1 DROP OU QHS, (Reported) Vitamin B Complex (Vitamin B Complex) 1 Each Tablet, 1 TAB PO DAILY, (Reported) Scheduled PRN Clotrimazole (Clotrimazole) 10 Mg Troc, 10 MG MT Q2H PRN for THRUSH, (Reported) Metaxalone (Metaxalone) 800 Mg Tablet, 800 MG PO TID PRN for MUSCLE SPASMS, (Reported) Nitroglycerin (Nitrostat) 0.4 Mg Subl, 0.4 MG SL NITRO PRN for CHEST PAIN, (Reported) Nystatin (Nystatin Oral Susp) 5 Ml Susp, 4 ML PO QID PRN for THRUSH, (Reported) Allergies Coded Allergies: aspirin (Verified Allergy, Mild, RECTAL BLEEDING, 10/26/18) levofloxacin (Verified Allergy, Mild, MUSCLE CRAMPING, 10/26/18) quinidine (Verified Allergy, Mild, HIVES, 10/26/18) fexofenadine (Verified Allergy, Unknown, anaphylaxis, 10/26/18) furosemide (Verified Allergy, Unknown, dizziness, 10/26/18) metoprolol (Verified Allergy, Unknown, d/t lung condition, 10/26/18) pravastatin (Verified Allergy, Unknown, 10/26/18) Past Medical History Medical History COPD steroid and oxygen dependent, chronic hypoxic respiratory failure, Bronchiectasis on chronic antibiotic cycles of 2 week on and 2 weeks off { alternating between cefdinir/ ciprofloxacin/}. Bactrim prophylaxis on mon, wed, wed, Emphysema, Common variable immunodeficiency on IVIG , CAD s/p stents, PAD s/p left femoral endarterectomy and right stenting, Diabetes, glaucoma, hearing impairment, MYKEL on CPAP, hypertension, depression, h/o Aortic stenosis with Aortic valve replaced with bioprosthetic valve, chronic thoracic vertebral body compression fracture ,Iron deficiency, Vit B12 deficiency, Oral thrush, osteoporosis Surgical History Invasive aortic valve replacement with bioprosthetic valve. Cardiac stents x 13, Eyelid procedure, tongue biopsy, Left femoral endarterectomy with patch repair recently in March 2018, stent in right leg 04/2018 Family History FATHER: , HEART ATTACK MOTHER: ALIVE SIBLINGS: , SISTER HOUSE FIRE SON(S): ALIVE DAUGHTER(S): ALIVE 2 BROTHER(S) , 6 SISTER(S) - HEALTHY 1 SON(S) , 1 DAUGHTER(S) -HEALTHY. Social History * Smoker: Denies Alcohol: Denies Drugs: denies A-FIB/CHADSVASC A-FIB History Current/History of A-Fib/PAF?: No Review of Systems Constitutional: Reports: Chills, Fever, Malaise, Night Sweats, Weakness, Fatigue Eyes: Denies: Pain, Vision change ENT: Denies: Head Aches, Ear Pain, Dysphagia Skin: Denies: Rash, Lesions, Breakdown Pulmonary: Reports: Dyspnea, Cough Cardiovascular: Reports: Chest Pain, Palpitations Gastrointestinal: Denies: Nausea, Vomiting, Abdominal Pain, Diarrhea Genitourinary: Denies: Dysuria, Frequency, Incontinence, Retention Hematologic: Denies: Bruising, Bleeding Excessively Musculoskeletal: Reports: Back Pain, Shoulder Pain Neurological: Reports: Weakness; Denies: Numbness, Incoordination, Change in speech, Confusion Psych: Reports: Anxiety Physical Examination General Exam: Positive: Alert, Cooperative, Severe Distress Eye Exam: Positive: PERRLA, Conjunctiva & lids normal, EOMI; Negative: Sclera icteric ENT Exam: Positive: Atraumatic, Mucous membr. moist/pink, Pharynx Normal Neck Exam: Positive: Supple Chest Exam: Positive: Rales, Rhonchi, Wheezing, Diminished, Other (accessoryry muscles working. ) Heart Exam: Positive: Tachycardic, Regular Rhythm, Normal S1, Normal S2; Negative: Irregular Rhythm, Gallops, Murmurs, Rubs Telemetry: Positive: Sinus, Tachycardia Abdomen Exam: Positive: Normal bowel sounds, Soft Extremity Exam: Negative: Clubbing, Cyanosis, Edema Psych Exam: Positive: Anxiety, Memory Intact, Oriented x 3 Vital Signs Vital Signs Date Time Temp Pulse Resp B/P (MAP) Pulse Ox O2 Delivery O2 Flow Rate FiO2 10/26/18 04:18 102.3 10/26/18 03:54 134 30 92 Nasal Cannula 2.5 10/26/18 03:18 190/95 (126) Laboratory Data Labs 24H Laboratory Tests 2 10/26/18 02:49: Immature Granulocyte % (Auto) 0.8, White Blood Count 11.0H, Red Blood Count 4.35, Hemoglobin 14.3, Hematocrit 42.6, Mean Corpuscular Volume 97.9H, Mean Corpuscular Hemoglobin 32.9, Mean Corpuscular Hemoglobin Concent 33.6, Red Cell Distribution Width 13.2, Platelet Count 250, Neutrophils (%) (Auto) 82.1H, Lym phocytes (%) (Auto) 8.3L, Monocytes (%) (Auto) 7.7H, Eosinophils (%) (Auto) 0.6, Basophils (%) (Auto) 0.5, Neutrophils # (Auto) 9.1H, Lymphocytes # (Auto) 0.9L, Monocytes # (Auto) 0.9H, Eosinophils # (Auto) 0.1, Basophils # (Auto) 0.1, Nucleated Red Blood Cells % (auto) 0.0, Anion Gap 8, Glomerular Filtration Rate > 60.0, Lactic Acid Level 2.0, Blood Urea Nitrogen 13, Creatinine 1.03, Sodium Level 141, Potassium Level 4.2, Chloride Level 103, Carbon Dioxide Level 30, Calcium Level 8.6L, Total Creatine Kinase 106, Creatine Kinase MB 2.0, Creatine Kinase MB Relative Index 1.98, Troponin I 0.03, OL-Cam-V-Type Natriuretic Peptide 210H, Thyroid Stimulating Hormone (TSH) 2.540 10/26/18 03:10: Blood Gas Bicarbonate Standard 26.0, Arterial Blood pH 7.312L, Arterial Blood Partial Pressure CO2 59.5H, Arterial Blood Partial Pressure O2 184.5H, Arterial Blood Total CO2 31.2H, Arterial Blood HCO3 29.4H, Arterial Blood Base Excess 1.7, Arterial Blood Oxygen Saturation 99.0 CBC/BMP Laboratory Tests 10/26/18 02:49 Red Blood Count 4.35, Mean Corpuscular Volume 97.9 H, Mean Corpuscular Hemoglobin 32.9, Mean Corpuscular Hemoglobin Concent 33.6, Red Cell Distribution Width 13.2, Neutrophils (%) (Auto) 82.1 H, Lymphocytes (%) (Auto) 8.3 L, Monocytes (%) (Auto) 7.7 H, Eosinophils (%) (Auto) 0.6, Basophils (%) (Auto) 0.5, Neutrophils # (Auto) 9.1 H, Lymphocytes # (Auto) 0.9 L, Monocytes # (Auto) 0.9 H, Eosinophils # (Auto) 0.1, Basophils # (Auto) 0.1, Calcium Level 8.6 L, Total Creatine Kinase 106 Microbiology Microbiology 10/26/18 Blood Culture, Received Pending 10/26/18 Blood Culture, Received Pending Assessment/Plan 67 year old male with PMH of COPD steroid and oxygen dependent, chronic hypoxic respiratory failure, Bronchiectasis on chronic antibiotic cycles of 2 week on and 2 weeks off { alternating between cefdinir/ ciprofloxacin/}. Bactrim prophylaxis on mon, wed, wed, Emphysema, Common variable immunodeficiency on IVIG , CAD s/p stents, PAD s/p femoral endarterectomy, Diabetes, glaucoma, hearing impairment, MYKEL on CPAP, hypertension, depression, Aortic valve replaced with bioprosthetic valve, chronic thoracic vertebral body compression fracture presented to the ED with increasing shortness of breath for 3 days, fever and chills for 1 days, increased cough and sputum production for 1 day. Patient was recently hospitalized here from 10/02 to 10/05 for exacerbation of his bronchiectasis and copd exacerbation. He was treated with zosyn then discharged home with cefdinir which he finished as instructed. He went for a cardiac cath 2 days ago and report was good did not get any more stents. His breathing was already a little worse than usual that day but it became worse the next day. He also developed chills and a fever at home. His breathing was very noisy and he had increased cough. Then overnight his breathing became so bad that he could no t speak in full sentences and he could not lay down. So he was brought to the ED. In the ED on arrival he was very anxious as he needed a dose of ativan to calm him down. He also got duonebs and methyl prednisone. He was febrile to 102.3. He had a CT chest done. His ABG showed mild CO2 retention. He was admitted for Acute on chronic respiratory failure with hypercarbia and hypoxia, COPD exacerbation and exacerbation of bronchiectasis and acute bronchitis. Acute exacerbation of Bronchiectasis and Acute bronchitis R/O pneumonia, CT chest pending. will sent sputum culture and gram stain resp panel Zosyn based on last sputum culture. Mucinex glycopyrrolate nebs if available Acute on chronic respiratory failure with hypoxia and hypercarbia due to copd exacerbation, and acute exacerbation or bronchiectasis will give duonebs, formoterol, budesonide nebs albuterol prn , methyl pred will reapeat ABG this am to see if there is any improvement or not patient is DNR and DNI COPD exacerbation will give duonebs, formoterol, budesonide nebs albuterol prn , methyl pred , zosyn repeat ABG. and restart CPAP if CCO2 elevated again MYKEL continue own CPAP Severe anxiety will start xanax prn. continue citalopram Diabetes secondary thought to be steroid induced continue glimiperide lispro insulin Hypertension continue Diltiazem Hyperlipidemia continue home meds if available GERD continue omeprazole and famotidine. DVT prophylaxis ordered. Plan / VTE VTE Prophylaxis Ordered?: Yes DENVER RAMOS MD October 26, 2018 06:41
[2018-10-26] MEDS ORDERED: GLUCOSE 4 GM CHEW TABLET PO PRN (06:45)
[2018-10-26] MEDS ORDERED: GLUCAGON FOR INJ 1 MG VIAL (J1610) SC PRN (06:45)
[2018-10-26] MEDS ORDERED: DEXTROSE 50% 50 ML SYRINGE IV PRN (06:45)
[2018-10-26 08:00] VITALS: BP 148/78
[2018-10-26] MEDS: [UNRECOGNIZED DRUG - OTHER] NEB SCH (08:00)
[2018-10-26] MEDS ORDERED: IPRATROPIUM 0.5MG/ALBUTEROL 2.5MG INH SOL UD 3ML (DUONEB)(J7620) NEB SCH (08:00)
[2018-10-26] MEDS: BUDESONIDE 0.5 MG/2 ML INHALATION SUSPENSION INH SCH ×2 (08:01→17:31)
[2018-10-26] MEDS: methylPREDNISolone INJ 40 MG/1 ML VIAL (J2920) IV SCH ×3 (08:12→20:35)
[2018-10-26] MEDS: BACTRIM 160MG/800MG DS TAB PO SCH (08:12)
[2018-10-26] MEDS: guaiFENesin ER 600 MG TAB PO SCH ×2 (08:13→20:36)
[2018-10-26] MEDS: OMEPRAZOLE 20 MG CAP PO SCH (08:13)
[2018-10-26] MEDS: HumaLOG INSULIN (NovoLOG) PER UNIT SC SCH ×4 (08:13→20:36)
[2018-10-26] MEDS: PIPERACILLIN/TAZOBACTAM SOD 3.375 GM in D5W MINI-BAG PLUS 50 ML IV SCH ×3 (08:14→20:37)
[2018-10-26] MEDS: BRIMONIDINE 0.1% OPHTH SOLN 5 ML OU SCH ×2 (08:14→17:56)
[2018-10-26] MEDS: FORMOTEROL FUMARATE 20 MCG/2 ML INHALATION SOLUTION (PERFOROMIST) INH SCH ×2 (09:00→17:31)
[2018-10-26] MEDS ORDERED: GLIMEPIRIDE 2 MG TAB PO SCH (09:00)
[2018-10-26] MEDS ORDERED: methylPREDNISolone INJ 40 MG/1 ML VIAL (J2920) IV SCH (09:00)
[2018-10-26 12:00] VITALS: BP 149/80
--- NOTE | 2018-10-26 12:06 | REP ---
CHEST, SINGLE VIEW: Single view of the chest is performed and compared to prior study of 10/02/2018. There is mild elevation of the right hemidiaphragm. Bilateral fibrotic changes are seen diffusely, more significantly in the right lung base. There is no definite superimposed acute infiltrate. Heart is normal in size. There is mild calcification and tortuosity of the thoracic aorta. The mediastinal silhouette is unchanged. Metallic clips are seen in the right hilar region. IMPRESSION: Stable chronic findings with no definite acute pulmonary disease. Electronically Signed by Choco Schneider MD 10/27/2018 10:53 A
[2018-10-26 13:10] VITALS: BP 188/86
[2018-10-26] MEDS: LEVALBUTEROL 1.25 MG/0.5 ML CONCENTRATE NEB INH SCH ×2 (13:31→20:08)
[2018-10-26] MEDS ORDERED: [UNRECOGNIZED DRUG - OTHER] NEB SCH (14:00)
[2018-10-26] MEDS ORDERED: SLF 3 ML SYR IV PRN (14:30)
[2018-10-26 16:00] VITALS: BP 155/82
--- NOTE | 2018-10-26 17:06 | IPNPDOC ---
Date Seen The patient was seen on 10/26/18. Progress Note SUBJECTIVE: Patient was seen and examined this morning. He continues to complain of a cough with sputum production as well as shortness of breath. He denies any chest pain. He denies any fevers or chills. OBJECTIVE PHYSICAL EXAMINATION: VITAL SIGNS: Please see below. GENERAL: Awake, alert, and oriented. He appears in no acute distress. He is ill and frail appearing. HEENT: Atrumatic, normocephalic. Eyes are nonicteric. No conjunctival injection. Nasal cannula in place CARDIOVASCULAR: Distant heart sounds. Normal S1, S2. Regular rate and rhythm. No clicks, rubs, or murmurs RESPIRATORY: Rhonchorous breath sounds bilaterally. Scattered wheezing throughout. Increased inspiratory phase. Diaphagmatic breathing ABDOMINAL: Soft, distended. Nontender to palpation throughout. No rebound tenderness or guarding. Positive bowel sounds throughout. No hernias EXTREMITIES: Full and equal pulses in bilateral lower extremities. No edema NEUROLOGICAL: No focal neurological deficits PSYCHOLOGICAL: Mood and affect appear appropriate LABORATORY DATA, IMAGING STUDIES, MICROBIOLOGY: Please see below. DVT prophylaxis ordered?: Mechanical ASSESSMENT AND PLAN: Patient is a 67 year old male with a past medical history significant for COPD steroid and oxygen dependant, chronic hypoxic respiratory failure, bronchiectasis on chronic antibiotics cycles of 2 weeks on and 2 weeks off alternating between cerfdinir/cipro, emphysema, common variable immunodeficiency on IVIG, CAD s/p JESÚS, PAD s/p endardectomy, diabetes, glaucoma, MYKEL on CPAP, hypertension, depression, aortic valve replacement with bioprosthetic valve, who presented to the [facility] ER with complaint of increasing shortness of breath and sputum production over a 3 day period. PROBLEMS: 1. Acute exacerbation of Bronchiectasis and Acute Bronchitis -Chest CT demonstrating severe centrilobular emphysematous guarding in the right middle lobe and lingula, mild bronchial wall thickening sensitive element of bronchitis, more prominent bronchial wall thickening in the right lung base associated with small patchy opacity suggestive of early pneumonia. -Sputum cultures were obtained and currently pending -Respiratory panel, resulted with Parainfluenza Type 3 2. Acute on chronic hypercarbic respiratory failure 2/2 COPD excaerbation and acute bronchitis and bronchiectasis -Patient was hypercarbic on presentation in the ER. He is currently on nasal cannula with 2 L oxygen saturations at 93%. -Patient does not appear confused and as such, will not order another blood gas. -Patient will be placed on Xopenex nebulizer sinus tachycardia. He can continue his home medication glycopyrrolate 30 min prior to Xopenex nebulizer. -Albuterol nebulizer every 2 hours when necessary -Methylprednisolone 60 mg every 6 hours IV. -Pulmicort 0.5 mg required twice a day -Mucinex tab 200 mg twice a day -Perforomist -Patient is currently on Zosyn. He does have a respiratory panel positive for Parainflunzea Type 3. I will continue antibiotics until sputum culture returns as patient does have bronchiectasis and risk factors for bacterial infection. 3. MYKEL -Patient to continue with his home CPAP 4. Anxiety -Patient was stated to have fairly severe anxiety. He was started on Xanax 0.25 mg every 12 hours when necessary. He is to be continued on citalopram 20 mg daily at bedtime 5., Diabetes -Patient is a history of diabetes, likely secondary to chronic steroid use. Continue with sliding scale protocol -Glimepiride 4 mg twice a day 6., Hypertension -Diltiazem 240 mg daily 7. Gastroesophageal reflux disease -Famotidine 40 mg daily at bedtime -Omeprazole 40 mg daily 8. Coronary disease status post JESÚS, peripheral arterial disease status post stent placement. -Continue Plavix and 75 mg daily at bedtime 9. DVT prophylaxis. -Josue's and sequentials Attending note: Patient seen and examined at bedside. Case discussed with resident physician, continue Zosyn and will continue all the home meds and an ticoagulation as patient been taken from outpatient. A-FIB/CHADSVASC A-FIB History Current/History of A-Fib/PAF?: No VS, I&O, 24H, Fishbone Vital Signs/I&O Vital Signs Date Time Temp Pulse Resp B/P (MAP) Pulse Ox O2 Delivery O2 Flow Rate FiO2 10/26/18 13:10 97.6 108 24 188/86 (120) 93 2.0 10/26/18 06:00 Nasal Cannula Laboratory Data 24H LABS Laboratory Tests 2 10/26/18 02:49: Immature Granulocyte % (Auto) 0.8, White Blood Count 11.0H, Red Blood Count 4.35, Hemoglobin 14.3, Hematocrit 42.6, Mean Corpuscular Volume 97.9H, Mean Corpuscular Hemoglobin 32.9, Mean Corpuscular Hemoglobin Concent 33.6, Red Cell Distribution Width 13.2, Platelet Count 250, Neutrophils (%) (Auto) 82.1H, Lymphocytes (%) (Auto) 8.3L, Monocytes (%) (Auto) 7.7H, Eosinophils (%) (Auto) 0.6, Basophils (%) (Auto) 0.5, Neutrophils # (Auto) 9.1H, Lymphocytes # (Auto) 0.9L, Monocytes # (Auto) 0.9H, Eosinophils # (Auto) 0.1, Basophils # (Auto) 0.1, Nucleated Red Blood Cells % (auto) 0.0, Anion Gap 8, Glomerular Filtration Rate > 60.0, Lactic Acid Level 2.0, Blood Urea Nitrogen 13, Creatinine 1.03, Sodium Level 141, Potassium Level 4.2, Chloride Level 103, Carbon Dioxide Level 30, Calcium Level 8.6L, Total Creatine Kinase 106, Creatine Kinase MB 2.0, Creatine Kinase MB Relative Index 1.98, Troponin I 0.03, [id number]-Type Natriuretic Peptide 210H, Thyroid Stimulating Hormone (TSH) 2.540 10/26/18 03:10: Blood Gas Bicarbonate Standard 26.0, Arterial Blood pH 7.312L, Arterial Blood Partial Pressure CO2 59.5H, Arterial Blood Partial Pressure O2 184.5H, Arterial Blood Total CO2 31.2H, Arterial Blood HCO3 29.4H, Arterial Blood Base Excess 1.7, Arterial Blood Oxygen Saturation 99.0 10/26/18 07:31: Bedside Glucose (Misc Panel) 210H 10/26/18 11:38: Bedside Glucose (Misc Panel) 345H CBC/BMP Laboratory Tests 10/26/18 02:49 Red Blood Count 4.35, Mean Corpuscular Volume 97.9 H, Mean Corpuscular Hemoglobin 32.9, Mean Corpuscular Hemoglobin Concent 33.6, Red Cell Distribution Width 13.2, Neutrophils (%) (Auto) 82.1 H, Lymphocytes (%) (Auto) 8.3 L, Monocytes (%) (Auto) 7.7 H, Eosinophils (%) (Auto) 0.6, Basophils (%) (Auto) 0.5, Neutrophils # (Auto) 9.1 H, Lymphocytes # (Auto) 0.9 L, Monocytes # (Auto) 0.9 H, Eosinophils # (Auto) 0.1, Basophils # (Auto) 0.1, Calcium Level 8.6 L, Total Creatine Kinase 106 Microbiology Microbiology 10/26/18 Blood Culture, Received Pending 10/26/18 Blood Culture, Received Pending 10/26/18 Gram Stain - Final, Resulted 10/26/18 Sputum Culture, Resulted Pending 10/26/18 Respiratory Virus Panel (PCR) ([facility]) - Final, Complete Parainfluenza 3 (Piv3) BREANA HERRERA DO October 26, 2018 15:33 ABEBA BURT MD October 27, 2018 07:39
[2018-10-26] MEDS: GLIMEPIRIDE 2 MG TAB PO SCH (17:33)
[2018-10-26] MEDS: ALPRAZolam 0.25 MG TAB PO PRN (17:55)
[2018-10-26 20:00] VITALS: BP 133/82
[2018-10-26] MEDS: MONTELUKAST 10 MG TAB PO SCH (20:36)
[2018-10-26] MEDS: CLOPIDOGREL 75 MG TAB PO SCH (20:36)
[2018-10-26] MEDS: FAMOTIDINE 20 MG TAB PO SCH (20:36)
[2018-10-26] MEDS: CitaloPRAM (CeleXA) 20 MG TAB PO SCH (20:36)
[2018-10-26] MEDS: SLF 3 ML SYR IV SCH (20:37)
[2018-10-26] MEDS: LATANOPROST 0.005% OPHTH SOLN 2.5 ML OU SCH (20:53)
[2018-10-26] MEDS ORDERED: ENTER DRUG NAME HERE (PATIENT'S OWN MED) NEB SCH (21:00)
[2018-10-26 23:59] VITALS: BP 149/76
[2018-10-27] VITALS (7 sets, daily range): BP systolic 125–138; BP diastolic 73–91; O2SAT 92
[2018-10-27] MEDS: LEVALBUTEROL 1.25 MG/0.5 ML CONCENTRATE NEB INH SCH ×4 (02:07→19:50)
[2018-10-27] MEDS: methylPREDNISolone INJ 40 MG/1 ML VIAL (J2920) IV SCH ×4 (03:41→20:52)
[2018-10-27] MEDS: SLF 3 ML SYR IV SCH ×3 (03:41→20:54)
[2018-10-27] MEDS: PIPERACILLIN/TAZOBACTAM SOD 3.375 GM in D5W MINI-BAG PLUS 50 ML IV SCH ×4 (03:42→20:51)
[2018-10-27 05:18] LABS: BASO % 0.1 % (0.0-1.0); HEMATOCRIT 36.9 % (42.0-52.0); HEMOGLOBIN 12.5 g/dl (13.5-17.5); LYMPH # 0.3 10^3/uL (1.5-4.5); LYMPH % 2.8 % (24.0-44.0); MEAN CORPUSCULAR HGB CONC 33.9 g/dl (32.0-36.5); MEAN CORPUSCULAR VOLUME 94.4 fl (80.0-96.0); MONO # 0.4 10^3/uL (0.0-0.8); MONO % 3.4 % (0.0-5.0); NEUTROPHILS # 10.5 10^3/uL (1.8-7.7); NEUTROPHILS % 93.3 % (36.0-66.0); PLATELET COUNT, AUTOMATED 225 10^3/uL (150-450); RED BLOOD COUNT 3.91 10^6/uL (4.30-6.10); WHITE BLOOD COUNT 11.2 10^3/uL (4.0-10.0)
[2018-10-27 05:40] LABS: BLOOD UREA NITROGEN 15 MG/DL (7-18); CALCIUM LEVEL 8.8 MG/DL (8.8-10.2); CARBON DIOXIDE LEVEL 30 MEQ/L (21-32); CHLORIDE LEVEL 97 MEQ/L (98-107); CREATININE FOR GFR 0.86 MG/DL (0.70-1.30); GLOMERULAR FILTRATION RATE > 60.0 (>49); GLUCOSE, FASTING 225 MG/DL (70-100); POTASSIUM SERUM 3.9 MEQ/L (3.5-5.1); SODIUM LEVEL 133 MEQ/L (136-145)
[2018-10-27 06:12] LABS: ABG BASE EXCESS 3.4 (-2.0-2.0); ABG HCO3 27.9 MEQ/L (22.0-26.0); ABG O2 SATURATION 97.6 % (95.0-99.0); ABG PARTIAL PRESSURE CO2 41.7 mmHg (35.0-45.0); ABG PARTIAL PRESSURE O2 95.2 mmHg (75.0-100.0); ABG STANDARD HCO3 27.5 MEQ/L (22.0-26.0); ABG TOTAL CO2 29.2 MEQ/L (23.0-31.0); ABG pH (ARTERIAL) 7.443 UNITS (7.350-7.450)
[2018-10-27] MEDS: ALPRAZolam 0.25 MG TAB PO PRN ×2 (06:28→17:53)
--- NOTE | 2018-10-27 07:13 | ECGEPIP ---
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
[2018-10-27] MEDS: BUDESONIDE 0.5 MG/2 ML INHALATION SUSPENSION INH SCH ×2 (07:29→19:50)
[2018-10-27] MEDS: FORMOTEROL FUMARATE 20 MCG/2 ML INHALATION SOLUTION (PERFOROMIST) INH SCH ×2 (07:29→19:50)
[2018-10-27] MEDS: [UNRECOGNIZED DRUG - OTHER] NEB SCH (07:31)
[2018-10-27] MEDS: HumaLOG INSULIN (NovoLOG) PER UNIT SC SCH ×4 (08:08→20:53)
[2018-10-27] MEDS: OMEPRAZOLE 20 MG CAP PO SCH (08:09)
[2018-10-27] MEDS: GLIMEPIRIDE 2 MG TAB PO SCH ×2 (08:09→17:53)
[2018-10-27] MEDS: guaiFENesin ER 600 MG TAB PO SCH ×2 (08:10→20:52)
[2018-10-27] MEDS: BRIMONIDINE 0.1% OPHTH SOLN 5 ML OU SCH ×2 (08:11→17:54)
--- NOTE | 2018-10-27 10:08 | IPNPDOC ---
Date Seen The patient was seen on 10/27/18. Progress Note SUBJECTIVE: Patient was seen and examined this morning. He states that his breathing has only mildly improved. He does admit that his breathing is not worse. He has tested positive for Parainflunenza type 3 on his respiratory panel. He continues to cough and have sputum production although he admits to having some difficulty getting mucous out. OBJECTIVE PHYSICAL EXAMINATION: VITAL SIGNS: Please see below. GENERAL: Awake, alert, and oriented. He appears in no acute distress. He does appear slightly anxious with continued accessory muscle use with respiration HEENT: Atraumatic, normocephalic. Eyes are nonicteric. Trachea is midline. Dentition is poor. CARDIOVASCULAR: Normal S1, S2. Tachycardic rate. Regular rhythm. No clicks rubs, or murmurs RESPIRATORY: Rhonchorous breath sounds bilaterally. Scattered wheezing throughout with increased expiratory phase. Diaphagmatic breathing ABDOMINAL:Soft, distended. Nontender to palpation throughout. No rebound tenderness or guarding. Positive bowel sounds throughout. No hernias or masses EXTREMITIES: No edema. Full and equal pulses in bilateral upper and lower extremities NEUROLOGICAL:No focal neurological deficits noted PSYCHOLOGICAL: Appears slightly anxious. Affect appropriate LABORATORY DATA, IMAGING STUDIES, MICROBIOLOGY: Please see below. DVT prophylaxis ordered?: Mechanical ASSESSMENT AND PLAN: Patient is a 67 year old male with a past medical history significant for COPD steroid and oxygen dependant, chronic hypoxic respiratory failure, bronchiectasis on chronic antibiotics cycles of 2 weeks on and 2 weeks off alternating between cerfdinir/cipro, emphysema, common variable immunodeficiency on IVIG, CAD s/p JESÚS, PAD s/p endardectomy, diabetes, glaucoma, MYKEL on CPAP, hypertension, depression, aortic valve replacement with bioprosthetic valve, who presented to the [facility] ER with complaint of increasing shortness of breath and sputum production over a 3 day period. PROBLEMS: 1. Acute exacerbation of Bronchiectasis and Acute Bronchitis -Chest CT demonstrating severe centrilobular emphysematous guarding in the right middle lobe and lingula, mild bronchial wall thickening sensitive element of bronchitis, more prominent bronchial wall thickening in the right lung base associated with small patchy opacity suggestive of early pneumonia. -Sputum cultures were obtained and currently pending -Respiratory panel, resulted with Parainfluenza Type 3 -Patient continues to have difficulty breathing. Will continue with Nebs. -Patient has had difficulty clearing secretions secondary to his bronchiectasis. Will add chest PT to help with clearance. Consider mucolytic such as mucomyst however will try to avoid if possible due to possibility of bronchospasm with mucomyst. 2. Acute on chronic hypercarbic respiratory failure 2/2 COPD excaerbation and acute bronchitis and bronchiectasis -Patient was hypercarbic on presentation in the ER. He is currently on nasal cannula with 2 L oxygen saturations at 93%. -Patient does not appear confused and as such, will not order another blood gas. -Patient will be placed on Xopenex nebulizer sinus tachycardia. He can continue his home medication glycopyrrolate 30 min prior to Xopenex nebulizer. -Albuterol nebulizer every 2 hours when necessary -Methylprednisolone 60 mg every 6 hours IV. -Pulmicort 0.5 mg required twice a day -Mucinex tab 200 mg twice a day -Perforomist -Patient is currently on Zosyn. He does have a respiratory panel positive for Parainflunzea Type 3. I will continue antibiotics until sputum culture returns as patient does have bronchiectasis and risk factors for bacterial infection. -Procalcitonin pending 3. MYKEL -Patient to continue with his home CPAP 4. Anxiety -Patient was stated to have fairly severe anxiety. He was started on Xanax 0.25 mg every 12 hours when necessary. He is to be continued on citalopram 20 mg daily at bedtime 5., Diabetes -Patient is a history of diabetes, likely secondary to chronic steroid use. Continue with sliding scale protocol -Glimepiride 4 mg twice a day 6., Hypertension -Diltiazem 240 mg daily 7. Gastroesophageal reflux disease -Famotidine 40 mg daily at bedtime -Omeprazole 40 mg daily 8. Coronary disease status post JESÚS, peripheral arterial disease status post s tent placement. -Continue Plavix and 75 mg daily at bedtime 9. DVT prophylaxis. -Josue's and sequentials DISPOSITION: Patient continues to have difficulty breathing 2/2 to his severe emphysema and current COPD exacerbation 2/2 Parainfluneza type 3 infection. Currently his treatment is supportive. A-FIB/CHADSVASC A-FIB History Current/History of A-Fib/PAF?: No VS, I&O, 24H, Fishbone Vital Signs/I&O Vital Signs Date Time Temp Pulse Resp B/P (MAP) Pulse Ox O2 Delivery O2 Flow Rate FiO2 10/27/18 08:10 135/83 10/27/18 08:00 97.7 107 20 96 2.0 10/26/18 06:00 Nasal Cannula I&O- Last 24 Hours up to 6 AM 10/27/18 06:00 Intake Total 1220 ml Output Total 1260 ml Balance -40 ml Laboratory Data 24H LABS Laboratory Tests 2 10/26/18 11:38: Bedside Glucose (Misc Panel) 345H 10/26/18 17:19: Bedside Glucose (Misc Panel) 259H 10/26/18 20:23: Bedside Glucose (Misc Panel) 258H 10/27/18 05:05: Immature Granulocyte % (Auto) 0.4, White Blood Count 11.2H, Red Blood Count 3.91L, Hemoglobin 12.5L, Hematocrit 36.9L, Mean Corpuscular Volume 94.4, Mean Corpuscular Hemoglobin 32.0, Mean Corpuscular Hemoglobin Concent 33.9, Red Cell Distribution Width 13.0, Platelet Count 225, Neutrophils (%) (Auto) 93.3H, Lymphocytes (%) (Auto) 2.8L, Monocytes (%) (Auto) 3.4, Eosinophils (%) (Auto) 0.0, Basophils (%) (Auto) 0.1, Neutrophils # (Auto) 10.5H, Lymphocytes # (Auto) 0.3L, Monocytes # (Auto) 0.4, Eosinophils # (Auto) 0.0, Basophils # (Auto) 0.0, Nucleated Red Blood Cells % (auto) 0.0, Anion Gap 6L, Glomerular Filtration Rate > 60.0, Blood Urea Nitrogen 15, Creatinine 0.86, Sodium Level 133#L, Potassium Level 3.9, Chloride Level 97L, Carbon Dioxide Level 30, Calcium Level 8.8 10/27/18 06:00: Blood Gas Bicarbonate Standard 27.5H, Arterial Blood pH 7.443, Arterial Blood Partial Pressure CO2 41.7, Arterial Blood Partial Pressure O2 95.2, Arterial Blood Total CO2 29.2, Arterial Blood HCO3 27.9H, Arterial Blood Base Excess 3.4H, Arterial Blood Oxygen Saturation 97.6 CBC/BMP Laboratory Tests 10/27/18 05:05 Red Blood Count 3.91 L, Mean Corpuscular Volume 94.4, Mean Corpuscular Hem oglobin 32.0, Mean Corpuscular Hemoglobin Concent 33.9, Red Cell Distribution Width 13.0, Neutrophils (%) (Auto) 93.3 H, Lymphocytes (%) (Auto) 2.8 L, Monocytes (%) (Auto) 3.4, Eosinophils (%) (Auto) 0.0, Basophils (%) (Auto) 0.1, Neutrophils # (Auto) 10.5 H, Lymphocytes # (Auto) 0.3 L, Monocytes # (Auto) 0.4, Eosinophils # (Auto) 0.0, Basophils # (Auto) 0.0, Calcium Level 8.8 Microbiology Microbiology 10/26/18 Blood Culture - Preliminary, Resulted No growth after 24 hours . All specim... 10/26/18 Blood Culture - Preliminary, Resulted No growth after 24 hours . All specim... 10/26/18 Gram Stain - Final, Resulted 10/26/18 Sputum Culture, Resulted Pending 10/26/18 Respiratory Virus Panel (PCR) ([facility]) - Final, Complete Parainfluenza 3 (Piv3) GME ATTESTATION GME ATTESTATION My faculty preceptor for this patient encounter was physically present during the encounter and was fully available. All aspects of the patient interview, examination, medical decision making process, and medical care plan development were reviewed and approved by the faculty preceptor. The faculty preceptor is aware and concurs with the plan as stated in the body of this note and will attest to such by his/her cosignature. ATTENDING NOTE Patient seen and examined at bedside, discussed the resident physician Patient has a positive test for para- influenza virus Will start Tamiflu and will also continue IV antibiotics as patient has a history of immunodeficiency Continue present care BREANA HERRERA DO October 27, 2018 10:08 ABEBA BURT MD October 27, 2018 13:55
[2018-10-27] MEDS: OSELTAMIVIR PHOSPHATE 75 MG CAP (TAMIFLU) PO SCH ×2 (12:26→20:52)
--- NOTE | 2018-10-27 19:56 | CCN ---
DATE: 10/27/2018 CRITICAL CARE TIME: 1 hour. This excludes all procedures. I was urgently called to the patient's bedside by respiratory therapy. I am attempting to contact his primary hospitalist now; however, have not received a return call. The patient is well known to me for severe end-stage lung disease with chronic immunosuppression and immunodeficiency, on IVIG and cycling antibiotics, with history of severe bronchospasm. Upon my arrival to the room, he is tripoding. He states he is unable to breathe, has trouble completing sentences. He is diaphoretic. He did state ever since he had his catheterization on Wednesday, he has felt short of breath. He was told that his catheterization showed no coronary artery disease, and his initial EKG on admission showed no ST elevation. He states his chest is tight with difficulty breathing similar to his prior exacerbations. He is unable to provide much more as far as information because he has such severe shortness of breath. PHYSICAL EXAMINATION: Temperature is 99.2, pulse is 101, respiratory rate is 34, blood pressures 138/91 with a mean arterial pressure of 107, oxygen saturation 97% on 2 liters. General: The patient is tripoding at the side of his bed, leaning over his table, diaphoretic. Using accessory muscles to breathe. HEENT: Sclerae clear, nonicteric. Pupils equal, react to light. Mucous membranes are moist without lesions. Tongue is midline. Neck is supple. No tracheal deviation. He does have steroid facies. Lymphs: No cervical, supraclavicular, or axillary adenopathy. Cardiac: Distant S1, S2 without audible murmur, rub or gallop. No elevated jugular venous pressure (JVP). No peripheral edema. Pulmonary: Diffuse expiratory wheeze, very poor air entry. There is prolongation of the expiratory phase. Abdomen: Soft, nontender, nondistended. No hepatosplenomegaly. No masses or hernia. Extremities: No cyanosis, clubbing or edema. Skin: No rash, jaundice or bruising. Musculoskeletal: No muscle wasting. No evidence of joint effusion or recent musculoskeletal injury. Neurologic: No unilateral weakness. No tremor. LABORATORY EVALUATION: Shows leukocytosis with a white blood cell count of 11.2, hematocrit of 36.9, platelet count of 225. Arterial blood gas from 6 o'clock this morning shows a pH of 7.44, pCO2 of 42, pAO2 of 95. Chemistry shows a sodium of 133, potassium 3.9, chloride 97, bicarbonate of 30, BUN of 15, creatinine of 0.86 and a fasting glucose of 225. Lactate was normal yesterday at the time of admission. Procalcitonin is pending. Blood culture showed no growth after 24 hours. Sputum culture has a few white blood cells, a few epithelial cells, moderate gram-positive cocci and few gram-negative cocci. Respiratory virus panel showed a parainfluenza III. Chest CT showed air trapping, dynamic airway collapse with some sputum in the airway. Otherwise no significant abnormalities other than his known emphysema. There is no new infiltrate to suggest a new pneumonia. There is no pleural effusions. There is chronic bronchial wall thickening and evidence of prior thoracic compression fractures. IMPRESSION: Bronchospasm due to severe chronic obstructive pulmonary disease (COPD) exacerbation, likely prompted by viral infection. Would continue high dose steroids. Due to the severity of his bronchospasm, I have started Heliox. Will continue to monitor the patient. I have also provided with Acapella given the evidence of dynamic airway collapse with mucus in the airway. Continue mucociliary clearance techniques along with nebulization is recommended. Overall, the patient has poor prognosis given the severity of his lung disease. Will continue monitoring. I agree with initial antibiotics; however, would taper as soon as possible as the patient has chronic antibiotic use. I believe this is most likely a viral infection.
[2018-10-27] MEDS: CLOPIDOGREL 75 MG TAB PO SCH (20:52)
[2018-10-27] MEDS: CitaloPRAM (CeleXA) 20 MG TAB PO SCH (20:52)
[2018-10-27] MEDS: FAMOTIDINE 20 MG TAB PO SCH (20:52)
[2018-10-27] MEDS: MONTELUKAST 10 MG TAB PO SCH (20:52)
[2018-10-27] MEDS: LATANOPROST 0.005% OPHTH SOLN 2.5 ML OU SCH (20:53)
[2018-10-28] MEDS: LEVALBUTEROL 1.25 MG/0.5 ML CONCENTRATE NEB INH SCH ×5 (02:12→23:32)
[2018-10-28] MEDS: methylPREDNISolone INJ 40 MG/1 ML VIAL (J2920) IV SCH ×4 (02:39→21:14)
[2018-10-28] MEDS: PIPERACILLIN/TAZOBACTAM SOD 3.375 GM in D5W MINI-BAG PLUS 50 ML IV SCH ×4 (02:39→21:14)
[2018-10-28 04:00] VITALS: BP 141/85
[2018-10-28] MEDS: SLF 3 ML SYR IV SCH ×3 (04:44→21:24)
[2018-10-28 05:49] LABS: BASO % 0.1 % (0.0-1.0); HEMATOCRIT 36.4 % (42.0-52.0); HEMOGLOBIN 12.2 g/dl (13.5-17.5); LYMPH # 0.4 10^3/uL (1.5-4.5); LYMPH % 4.1 % (24.0-44.0); MEAN CORPUSCULAR HEMOGLOBIN 31.4 pg (27.0-33.0); MEAN CORPUSCULAR HGB CONC 33.5 g/dl (32.0-36.5); MEAN CORPUSCULAR VOLUME 93.8 fl (80.0-96.0); MONO # 0.4 10^3/uL (0.0-0.8); MONO % 3.6 % (0.0-5.0); NEUTROPHILS # 9.3 10^3/uL (1.8-7.7); NEUTROPHILS % 91.6 % (36.0-66.0); PLATELET COUNT, AUTOMATED 248 10^3/uL (150-450); RED BLOOD COUNT 3.88 10^6/uL (4.30-6.10); WHITE BLOOD COUNT 10.1 10^3/uL (4.0-10.0)
[2018-10-28 06:17] LABS: BLOOD UREA NITROGEN 18 MG/DL (7-18); CALCIUM LEVEL 8.7 MG/DL (8.8-10.2); CARBON DIOXIDE LEVEL 31 MEQ/L (21-32); CHLORIDE LEVEL 100 MEQ/L (98-107); CREATININE FOR GFR 0.82 MG/DL (0.70-1.30); GLOMERULAR FILTRATION RATE > 60.0 (>49); GLUCOSE, FASTING 231 MG/DL (70-100); POTASSIUM SERUM 3.8 MEQ/L (3.5-5.1); SODIUM LEVEL 137 MEQ/L (136-145)
[2018-10-28] MEDS: FORMOTEROL FUMARATE 20 MCG/2 ML INHALATION SOLUTION (PERFOROMIST) INH SCH ×2 (07:21→19:48)
[2018-10-28] MEDS: BUDESONIDE 0.5 MG/2 ML INHALATION SUSPENSION INH SCH ×2 (07:21→19:48)
[2018-10-28] MEDS: [UNRECOGNIZED DRUG - OTHER] NEB SCH ×2 (07:22→19:49)
[2018-10-28 08:00] VITALS: BP 126/76
[2018-10-28] MEDS: HumaLOG INSULIN (NovoLOG) PER UNIT SC SCH ×4 (09:33→21:24)
[2018-10-28] MEDS: BRIMONIDINE 0.1% OPHTH SOLN 5 ML OU SCH ×2 (09:33→17:50)
[2018-10-28] MEDS: OSELTAMIVIR PHOSPHATE 75 MG CAP (TAMIFLU) PO SCH ×2 (09:34→21:14)
[2018-10-28] MEDS: BACTRIM 160MG/800MG DS TAB PO SCH (09:34)
[2018-10-28] MEDS: OMEPRAZOLE 20 MG CAP PO SCH (09:34)
[2018-10-28] MEDS: guaiFENesin ER 600 MG TAB PO SCH ×2 (09:34→21:14)
[2018-10-28] MEDS: GLIMEPIRIDE 2 MG TAB PO SCH ×2 (09:35→17:50)
[2018-10-28] MEDS: ALPRAZolam 0.25 MG TAB PO PRN ×2 (09:46→17:54)
--- NOTE | 2018-10-28 09:57 | CCN ---
DATE OF SERVICE: 10/28/2018 Mr. Velasquez continues to be short of breath, however, he is not using as much accessory muscles this morning. He is short of breath with minimal speech. He is unable to complete full sentences without pausing. He did notice significant improvement in his breathing with the use of Heliox, however, this has been stopped.. He states after his nebulizer his chest got tighter. He has been having difficulty with mucociliary clearance. With any movement, he feels extremely short of breath. So far, viral panel for parainfluenza is the only thing positive, sputum culture is still pending. PHYSICAL EXAMINATION: Temperature is 97.4, pulse is 98, respiratory rate is 20 to 30, although it is documented as 20 throughout the entire night I highly doubt this. Blood pressure is 126/76 with a mean arterial pressure of 93 and oxygen saturation 98% on 2 liters. General: Awake, alert and oriented. Affect and mood are appropriate. Nutrition and hygiene are good. Oral and nasal mucosa pink and moist without lesions. Oropharynx without erythema or exudate. Cardiac: Regular S1 and S2, without audible murmur, rub or gallop. Pulmonary: Diffuse expiratory wheeze throughout all lung rodriguez. There is significant prolongation of the expiratory phase. There is no dullness to percussion. There is hyperexpansion and use of accessory muscles. There is paradoxical abdominal wall motion. The abdomen is slightly protuberant, but tympanic. Soft, nontender, nondistended. No hepatosplenomegaly. No masses or hernia. Extremities: No cyanosis, clubbing or edema. Musculoskeletal: Some minimal muscle wasting. No evidence joint effusion or recent musculoskeletal injury. Neurologic: No unilateral weakness or tremor. LABORATORY EVALUATION: White blood cell count is 10.1, hemoglobin is 12.2, hematocrit of 36.4 with a platelet count of 248. Sodium is 137, potassium is 3.18, chloride is 100, bicarbonate is 31, BUN is 18, creatinine 0.82, with a fasting glucose of 231. No recent arterial blood gas. Microbiology as mentioned above, parainfluenza III on viral respiratory panel was positive. Of note, I reviewed chest CT and I do not see any significant signs of pneumonia. There is mucus in the airway. There is hyperdynamic collapse of the airway. I do not see any dense infiltrate suggesting pneumonia. There is evidence of air trapping in the lung rodriguez which can cause of the appearance of adjacent ground glass abnormalities. IMPRESSION: 67-year-old male with severe bronchospasm secondary to COPD exacerbation likely provoked by a viral illness. Because of the severity of his bronchospasm, will intermittently use Heliox. Will use this in order to be able to administer nebulized therapy. I have changed his Acapella to a blue Acapella. We discussed efforts towards mucociliary clearance. Advanced directives discussed with the patient in front of his today. He wants to be DO NOT RESUSCITATE (DNR). He does not want intubation. He does not want a trial of noninvasive ventilation. He states he could not stand the mask. He states he does not want comfort measures only. He wants antibiotics and wants to try to get better, however, does not want more aggressive measures. I feel this is reasonable. Will continue to support the patient. If he has a significant decline. will consider discussions of palliative care only.
--- NOTE | 2018-10-28 10:49 | IPNPDOC ---
Date Seen The patient was seen on 10/28/18. Progress Note SUBJECTIVE: Patient was seen and examined this morning. It appears that last night he had significant worsening of his breathing. He was evaluated urgently at bedside by pulmonary service. The patient was noted to be tripoding and significantly short of breath. He had apparently gotten up to walk to the bathroom when his breathing worsened. He was placed on Heliox and appeared to have improved. This morning he states that his breathing has improved a little bit. He states that he is still unable to cough much up. He denies fevers or chills. OBJECTIVE PHYSICAL EXAMINATION: VITAL SIGNS: Please see below. GENERAL: Awake, alert, and oriented. He appears in no acute distress. Decreased accessory muscle use. He is conversive but with conversational dyspnea HEENT: Atraumatic, normocephalic. Eyes are nonicteric. Trachea is midline. Dentition is poor. CARDIOVASCULAR: Normal S1, S2. Tachycardic rate. Regular rhythm. No clicks rubs, or murmurs RESPIRATORY: Less rhonchi compared to previous examination. Continued diffuse scattered wheezing throughout with increased expiratory phase. Diaphagmatic breathing. Less accessory muscle use compared to previous examination ABDOMINAL:Soft, distended. Nontender to palpation throughout. No rebound tenderness or guarding. Positive bowel sounds throughout. No hernias or masses EXTREMITIES: No edema. Full and equal pulses in bilateral upper and lower extremities NEUROLOGICAL:No focal neurological deficits noted PSYCHOLOGICAL: Appears slightly anxious. Affect appropriate LABORATORY DATA, IMAGING STUDIES, MICROBIOLOGY: Please see below. DVT prophylaxis ordered?: YES ASSESSMENT AND PLAN: Patient is a 67 year old male with a past medical history significant for COPD steroid and oxygen dependant, chronic hypoxic respiratory failure, bronchiectasis on chronic antibiotics cycles of 2 weeks on and 2 weeks off alternating between cerfdinir/cipro, emphysema, common variable immunodeficiency on IVIG, CAD s/p JESÚS, PAD s/p endardectomy, diabetes, glaucoma, MYKEL on CPAP, hypertension, depression, aortic valve replacement with bioprosth etic valve, who presented to the [facility] ER with complaint of increasing shortness of breath and sputum production over a 3 day period. PROBLEMS: 1. Acute exacerbation of Bronchiectasis and Acute Bronchitis -Chest CT demonstrating severe centrilobular emphysematous guarding in the right middle lobe and lingula, mild bronchial wall thickening sensitive element of bronchitis, more prominent bronchial wall thickening in the right lung base associated with small patchy opacity suggestive of early pneumonia. -Sputum cultures were obtained and currently pending -Respiratory panel, resulted with Parainfluenza Type 3 -Patient continues to have difficulty breathing. Will continue with Nebs. -Patient has had difficulty clearing secretions secondary to his bronchiectasis. -Acapella and Chest PT -Pulmonary consultation has been placed. Assistance is greatly appreciated 2. Acute on chronic hypercarbic respiratory failure 2/2 COPD exacerbation and acute bronchitis and bronchiectasis -Patient was hypercarbic on presentation in the ER. He is currently on nasal cannula with 2 L oxygen saturations at 93%. -Patient does not appear confused and as such, will not order another blood gas. -Patient will be placed on Xopenex nebulizer sinus tachycardia. He can continue his home medication glycopyrrolate 30 min prior to Xopenex nebulizer. -Albuterol nebulizer every 2 hours when necessary -Methylprednisolone 60 mg every 6 hours IV. -Pulmicort 0.5 mg required twice a day -Mucinex tab 200 mg twice a day -Perforomist -Patient is currently on Zosyn. He does have a respiratory panel positive for Parainflunzea Type 3. I will continue antibiotics until sputum culture returns as patient does have bronchiectasis and risk factors for bacterial infection. -Procalcitonin 0.49 -Pulmonary consultation has been placed assistance greatly appreciated. Patient was placed on heliox last night as he was noticed to have increased shortness of breath and was unable to tolerate nebs. He has noted improvement with the use of Heliox. He will be on Heliox intermittently. -Given the severity of the patients lung disease his fpc prognosis is fairly poor. He is currently DNR/DNI. Will continue current treatment with recommendations from pulmonary medicine. 3. MYKEL -Patient to continue with his home CPAP 4. Anxiety -Patient was stated to have fairly severe anxiety. He was started on Xanax 0.25 mg every 12 hours when necessary. He is to be continued on citalopram 20 mg daily at bedtime 5., Diabetes -Patient is a history of diabetes, likely secondary to chronic steroid use. Continue with sliding scale protocol -Glimepiride 4 mg twice a day 6., Hypertension -Diltiazem 240 mg daily 7. Gastroesophageal reflux disease -Famotidine 40 mg daily at bedtime -Omeprazole 40 mg daily 8. Coronary disease status post JESÚS, peripheral arterial disease status post stent placement. -Continue Plavix and 75 mg daily at bedtime 9. DVT prophylaxis. -Josue's and sequentials DISPOSITION: Patient continues to have difficulty breathing 2/2 to his severe emphysema and current COPD exacerbation 2/2 Parainfluneza type 3 infection. His overall dosier operator prognosis is poor. Attending note: Patient seen and examined at the bedside. Case discussed with resident Patient has been started on heliox and also was seen by Dr. Kline for pulmonary consultation Continue Xopenex anti-cholinergic from home IV steroids, IV antibiotics and by mouth antiviral meds Monitor, continuous pulse ox oxygen support A-FIB/CHADSVASC A-FIB History Current/History of A-Fib/PAF?: No VS, I&O, 24H, Fishbone Vital Signs/I&O Vital Signs Date Time Temp Pulse Resp B/P (MAP) Pulse Ox O2 Delivery O2 Flow Rate FiO2 10/28/18 09:34 98 126/76 10/28/18 08:00 97.4 20 98 2.0 10/27/18 19:30 Nasal Cannula 21 I&O- Last 24 Hours up to 6 AM 10/28/18 05:59 Intake Total 2330 ml Output Total 2350 ml Balance -20 ml Laboratory Data 24H LABS Laboratory Tests 2 10/27/18 11:28: Bedside Glucose (Misc Panel) 283H 10/27/18 16:48: Bedside Glucose (Misc Panel) 368H 10/27/18 20:35: Bedside Glucose (Misc Panel) 204H 10/28/18 05:07: Immature Granulocyte % (Auto) 0.6, White Blood Count 10.1H, Red Blood Count 3.88L, Hemoglobin 12.2L, Hematocrit 36.4L, Mean Corpuscular Volume 93.8, Mean Corpuscular Hemoglobin 31.4, Mean Corpuscular Hemoglobin Concent 33.5, Red Cell Distribution Width 13.0, Platelet Count 248, Neutrophils (%) (Auto) 91.6H, Lymphocytes (%) (Auto) 4.1L, Monocytes (%) (Auto) 3.6, Eosinophils (%) (Auto) 0.0, Basophils (%) (Auto) 0.1, Neutrophils # (Auto) 9.3H, Lymphocytes # (Auto) 0.4L, Monocytes # (Auto) 0.4, Eosinophils # (Auto) 0.0, Basophils # (Auto) 0.0, Nucleated Red Blood Cells % (auto) 0.0, Anion Gap 6L, Glomerular Filtration Rate > 60.0, Blood Urea Nitrogen 18, Creatinine 0.82, Sodium Level 137, Potassium Le tamika 3.8, Chloride Level 100, Carbon Dioxide Level 31, Calcium Level 8.7L CBC/BMP Laboratory Tests 10/28/18 05:07 Red Blood Count 3.88 L, Mean Corpuscular Volume 93.8, Mean Corpuscular Hemoglobin 31.4, Mean Corpuscular Hemoglobin Concent 33.5, Red Cell Distribution Width 13.0, Neutrophils (%) (Auto) 91.6 H, Lymphocytes (%) (Auto) 4.1 L, Monocytes (%) (Auto) 3.6, Eosinophils (%) (Auto) 0.0, Basophils (%) (Auto) 0.1, Neutrophils # (Auto) 9.3 H, Lymphocytes # (Auto) 0.4 L, Monocytes # (Auto) 0.4, Eosinophils # (Auto) 0.0, Basophils # (Auto) 0.0, Calcium Level 8.7 L Microbiology Microbiology 10/26/18 Blood Culture - Preliminary, Resulted No Growth after 48 hours. All Specime... 10/26/18 Blood Culture - Preliminary, Resulted No Growth after 48 hours. All Specime... 10/26/18 Gram Stain - Final, Resulted 10/26/18 Sputum Culture, Resulted Pending 10/26/18 Respiratory Virus Panel (PCR) ([facility]) - Final, Complete Parainfluenza 3 (Piv3) BREANA HERRERA DO October 28, 2018 10:48 ABEBA BURT MD October 28, 2018 12:48
[2018-10-28 12:00] VITALS: BP 148/87
[2018-10-28 16:00] VITALS: BP 141/83
[2018-10-28] MEDS: ALBUTEROL SULFATE 2.5 MG/0.5 ML INH NEB SOLN NEB PRN (17:09)
[2018-10-28 20:00] VITALS: BP 148/87
[2018-10-28] MEDS: CitaloPRAM (CeleXA) 20 MG TAB PO SCH (21:14)
[2018-10-28] MEDS: LATANOPROST 0.005% OPHTH SOLN 2.5 ML OU SCH (21:14)
[2018-10-28] MEDS: MONTELUKAST 10 MG TAB PO SCH (21:14)
[2018-10-28] MEDS: CLOPIDOGREL 75 MG TAB PO SCH (21:14)
[2018-10-28] MEDS: FAMOTIDINE 20 MG TAB PO SCH (21:14)
[2018-10-28 23:59] VITALS: BP 163/88
[2018-10-29] MEDS: PIPERACILLIN/TAZOBACTAM SOD 3.375 GM in D5W MINI-BAG PLUS 50 ML IV SCH ×4 (02:37→19:50)
[2018-10-29] MEDS: methylPREDNISolone INJ 40 MG/1 ML VIAL (J2920) IV SCH ×4 (02:37→19:50)
[2018-10-29 04:00] VITALS: BP 144/84
[2018-10-29] MEDS: ALBUTEROL SULFATE 2.5 MG/0.5 ML INH NEB SOLN NEB PRN ×3 (04:13→15:47)
[2018-10-29] MEDS: SLF 3 ML SYR IV SCH ×3 (05:31→21:33)
[2018-10-29 05:41] LABS: HEMATOCRIT 35.9 % (42.0-52.0); HEMOGLOBIN 12.1 g/dl (13.5-17.5); MEAN CORPUSCULAR HEMOGLOBIN 32.2 pg (27.0-33.0); MEAN CORPUSCULAR HGB CONC 33.7 g/dl (32.0-36.5); MEAN CORPUSCULAR VOLUME 95.5 fl (80.0-96.0); PLATELET COUNT, AUTOMATED 253 10^3/uL (150-450); RED BLOOD COUNT 3.76 10^6/uL (4.30-6.10); WHITE BLOOD COUNT 10.3 10^3/uL (4.0-10.0)
[2018-10-29 06:05] LABS: BLOOD UREA NITROGEN 20 MG/DL (7-18); CARBON DIOXIDE LEVEL 30 MEQ/L (21-32); CHLORIDE LEVEL 101 MEQ/L (98-107); CREATININE FOR GFR 0.74 MG/DL (0.70-1.30); GLOMERULAR FILTRATION RATE > 60.0 (>49); GLUCOSE, FASTING 255 MG/DL (70-100); SODIUM LEVEL 135 MEQ/L (136-145)
[2018-10-29 06:08] LABS: POTASSIUM SERUM 4.9 MEQ/L (3.5-5.1)
[2018-10-29 06:21] LABS: ATYPICAL LYMPH 2 % (0-5); LYMPHOCYTES 3 % (16-52); MONOCYTES 5 % (0-8); NEUTROPHILS 90 % (35-75)
[2018-10-29 06:22] LABS: PLATELET ESTIMATE NORMAL (NORMAL)
[2018-10-29] MEDS: FORMOTEROL FUMARATE 20 MCG/2 ML INHALATION SOLUTION (PERFOROMIST) INH SCH ×2 (07:47→20:26)
[2018-10-29] MEDS: BUDESONIDE 0.5 MG/2 ML INHALATION SUSPENSION INH SCH ×2 (07:47→20:26)
[2018-10-29] MEDS: LEVALBUTEROL 1.25 MG/0.5 ML CONCENTRATE NEB INH SCH ×3 (07:49→20:00)
[2018-10-29 08:00] VITALS: BP 142/82
[2018-10-29] MEDS: [UNRECOGNIZED DRUG - OTHER] NEB SCH ×2 (08:00→20:27)
[2018-10-29] MEDS: GLIMEPIRIDE 2 MG TAB PO SCH ×2 (08:47→17:58)
[2018-10-29] MEDS: HumaLOG INSULIN (NovoLOG) PER UNIT SC SCH ×4 (08:47→19:59)
[2018-10-29] MEDS: OSELTAMIVIR PHOSPHATE 75 MG CAP (TAMIFLU) PO SCH ×2 (08:48→19:50)
[2018-10-29] MEDS: guaiFENesin ER 600 MG TAB PO SCH ×2 (08:48→19:50)
[2018-10-29] MEDS: OMEPRAZOLE 20 MG CAP PO SCH (08:48)
[2018-10-29] MEDS: BRIMONIDINE 0.1% OPHTH SOLN 5 ML OU SCH ×2 (08:49→18:03)
[2018-10-29 09:27] LABS: ABG BASE EXCESS 2.6 (-2.0-2.0); ABG HCO3 27.5 MEQ/L (22.0-26.0); ABG O2 SATURATION 96.5 % (95.0-99.0); ABG PARTIAL PRESSURE CO2 43.4 mmHg (35.0-45.0); ABG STANDARD HCO3 26.7 MEQ/L (22.0-26.0); ABG TOTAL CO2 28.8 MEQ/L (23.0-31.0); ABG pH (ARTERIAL) 7.419 UNITS (7.350-7.450)
--- NOTE | 2018-10-29 09:54 | CCN ---
DATE OF SERVICE: 10/29/2018 Casey had a significant exacerbation this morning, had worsening tachypnea, however, he did receive benzodiazepines for his anxiety. On my arrival to the room he did not appear any different from yesterday, although remains in significant respiratory distress. He is dyspneic with minimal conversation although he is able to complete sentences. He continues to have a nonproductive cough. He denies any chest discomfort and his biggest complaint is that he just cannot breathe. He has had no fevers. He does complain of a skin tear on his left arm. On physical exam temperature is 97.4, pulse is 72, respiratory rate of 17 with a blood pressure 142/80, oxygen saturations 99% on 3 liters. General: Awake, alert and oriented. Affect and mood are appropriate however, does have significant anxiety when he has worsening respiratory symptoms. He is sitting upright in bed. HEENT: Sclerae clear and anicteric. Pupils equal, react to light. Mucous membranes are moist without lesions. Tongue is midline. Neck: Is supple. No tracheal deviation or mass. Lymph nodes: No cervical, supraclavicular, or axillary adenopathy. Cardiac: Distant S1-S2 without audible murmur, rub, or gallop. No elevated jugular venous pulse (JVP). No peripheral edema. Pulmonary: Increased AP diameter, decreased breath sounds throughout both lung rodriguez with very poor air entry and significantly prolonged expiratory phase. There is an expiratory wheeze throughout the entire phase of exhalation. There are no rhonchi. There are no rales. Abdomen is protuberant but tympanic, soft, no discernible hepatosplenomegaly. No masses. Extremities: No cyanosis, clubbing or edema. Skin: Is pale without rash, jaundice present. Varying stages of bruising, likely from chronic prednisone use. There is a linear skin tear in the antecubital fossa without surrounding erythema or exudate. Musculoskeletal: There is significant musculoskeletal wasting. No evidence of joint effusions. Laboratory evaluation shows a white blood cell count of 10.3, hemoglobin 12.1, platelet count of 253, sodium is 135, potassium 4.9, chloride is 101, bicarb of 30, BUN of 28, creatinine 0.74 with a glucose of 255. Arterial blood gas from 10/27/2018 shows a pH of 7.44, pCO2 of 42, pO2 of 95. The sputum shows Serratia marcescens which he had previously grown. IMPRESSION: Chronic obstructive pulmonary artery disease (COPD) exacerbation with severe respiratory distress. We will obtain arterial blood gas to look for ventilatory failure. The patient because of his severe bronchospasm does better with heliox, this is mostly salvage therapy. He remains on high dose steroids, antibiotics, inhaled therapy along with mucociliary clearance for his bronchiectasis. Prognosis remains very guarded. However, the patient has expressed he would not want noninvasive ventilation. He does not want to be resuscitated and does not want invasive mechanical ventilation.
[2018-10-29 12:00] VITALS: BP 154/84
--- NOTE | 2018-10-29 12:07 | IPNPDOC ---
Date Seen The patient was seen on 10/29/18. Progress Note SUBJECTIVE: Patient was seen and examined this morning. He continues to have exacerbations throughout the day. This morning he was quite short of breath and anxious. He continues to have difficulty with clearing his secretions. He has been continued on the heliox which he states helps his breathing. OBJECTIVE PHYSICAL EXAMINATION: VITAL SIGNS: Please see below. GENERAL: Awake, alert, and oriented. He appears in no acute distress. He has some tripoding this morning. He appears anxious. He is speaking in full sentences but becomes short of breath when speaking. HEENT: Atraumatic, normocephalic. Eyes are nonicteric. Trachea is midline. Dentition is poor. CARDIOVASCULAR: Normal S1, S2. Tachycardic rate. Regular rhythm. No clicks rubs, or murmurs RESPIRATORY: rhonchorous breath sounds throughout. Continued scattered wheezing. Prolonged expiratory phase. Continued accessory muscle use ABDOMINAL:Soft, distended and protuberant. Tympanic. Nontender to palpation throughout. No rebound tenderness or guarding. Positive bowel sounds throughout. No hernias or masses EXTREMITIES: No edema. Full and equal pulses in bilateral upper and lower extremities. Skin tear on his left antecubital fossa NEUROLOGICAL:No focal neurological deficits noted PSYCHOLOGICAL: Appears slightly anxious. Affect appropriate LABORATORY DATA, IMAGING STUDIES, MICROBIOLOGY: Please see below. 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 PROBLEMS: 1. Acute exacerbation of Bronchiectasis and Acute Bronchitis -Patient continues to have difficulty with muscocillary clearance. He has been given an Acapella which he is using. Respiratory panel was positive for Parainfluenza Type 3. His sputum culture was positive for Serratia marcescens however, he may be chornically colonized. He has been receiving Zosyn. Given his degree of bronchiectasis and condition we will continue his antibiotics. -Pulmonary consultation has been placed. Recommendations and assistance are greatly appreciated 2. Acute on chronic hypercarbic respiratory failure 2/2 COPD exacerbation and acute bronchitis and bronchiectasis -Patient was hypercarbic on presentation in the ER. He is currently on nasal cannula with 2 L oxygen saturations at 93%. -Patient will be placed on Xopenex nebulizer sinus tachycardia. He can continue his home medication glycopyrrolate 30 min prior to Xopenex nebulizer. -Albuterol nebulizer every 2 hours when necessary -Methylprednisolone 60 mg every 6 hours IV. -Pulmicort 0.5 mg required twice a day -Mucinex tab 200 mg twice a day -Perforomist -Procalcitonin 0.49 -Sputum Culture was positive for Serratia marcescens. Patient may be chronically colonized. Will continue antibiotics given patients degree of bronchiectasis -Pulmonary consultation has been placed assistance greatly appreciated. Patient will be continued on heliox -Given the severity of the patients lung disease his assisted prognosis is fairly poor. He is currently DNR/DNI. Will continue current treatment with recommendations from pulmonary medicine. 3. MYKEL -Patient to continue with his home CPAP 4. Anxiety -Patient was stated to have fairly severe anxiety. He was started on Xanax 0.25 mg every 12 hours when necessary. He is to be continued on citalopram 20 mg daily at bedtime 5., Diabetes -Patient is a history of diabetes, likely secondary to chronic steroid use. Continue with sliding scale protocol -Glimepiride 4 mg twice a day 6., Hypertension -Diltiazem 240 mg daily 7. Gastroesophageal reflux disease -Famotidine 40 mg daily at bedtime -Omeprazole 40 mg daily 8. Coronary disease status post JESÚS, peripheral arterial disease status post stent placement. -Continue Plavix and 75 mg daily at bedtime 9. DVT prophylaxis. -Josue's and sequentials DISPOSITION: Patient continues to have difficulty breathing 2/2 to his severe emphysema and current COPD exacerbation 2/2 Parainfluneza type 3 infection. His overall prognosis is poor. VS, I&O, 24H, Fishbone Vital Signs/I&O Vital Signs Date Time Temp Pulse Resp B/P (MAP) Pulse Ox O2 Delivery O2 Flow Rate FiO2 10/29/18 08:58 3.0 5/25/19 08:48 72 142/82 10/29/18 08:00 97.4 17 99 10/28/18 23:32 Nasal Cannula 10/27/18 19:30 21 I&O- Last 24 Hours up to 6 AM 10/29/18 06:00 Intake Total 2080 ml Output Total 2250 ml Balance -170 ml Laboratory Data 24H LABS Laboratory Tests 2 10/28/18 12:05: Bedside Glucose (Misc Panel) 249H 10/28/18 17:30: Bedside Glucose (Misc Panel) 365H 10/28/18 21:22: Bedside Glucose (Misc Panel) 339H 10/29/18 05:15: Nucleated Red Blood Cells % (auto) 0.0, Neutrophils 90H, Lymphocytes (Manual) 3L, Monocytes (Manual) 5, Atypical Lymphocytes 2, Platelet Estimate NORMAL, Red Blood Cell Morphology NORMAL, Anion Gap 4L, Glomerular Filtration Rate > 60.0, Blood Urea Nitrogen 20H, Creatinine 0.74, Sodium Level 135L, Potassium Level 4.9#, Chloride Level 101, Carbon Dioxide Level 30, Calcium Level 8.0L 10/29/18 09:14: Blood Gas Bicarbonate Standard 26.7H, Arterial Blood pH 7.419, Arterial Blood Partial Pressure CO2 43.4, Arterial Blood Partial Pressure O2 88.0, Arterial Blood Total CO2 28.8, Arterial Blood HCO3 27.5H, Arterial Blood Base Excess 2.6H, Arterial Blood Oxygen Saturation 96.5 10/29/18 11:34: Bedside Glucose (Misc Panel) 248H CBC/BMP Laboratory Tests 10/29/18 05:15 Red Blood Count 3.76 L, Mean Corpuscular Volume 95.5, Mean Corpuscular Hemoglobin 32.2, Mean Corpuscular Hemoglobin Concent 33.7, Red Cell Distribution Width 13.0, Calcium Level 8.0 L Microbiology Microbiology 10/26/18 Blood Culture - Preliminary, Resulted No Growth after 72 hours. All specime... 10/26/18 Blood Culture - Preliminary, Resulted No Growth after 72 hours. All specime... 10/26/18 Gram Stain - Final, Complete 10/26/18 Sputum Culture - Final, Complete Serratia Marcescens 10/26/18 Respiratory Virus Panel (PCR) ([facility]) - Final, Complete Parainfluenza 3 (Piv3) GME ATTESTATION GME ATTESTATION My faculty preceptor for this patient encounter was physically present during the encounter and was fully available. All aspects of the patient interview, examination, medical decision making process, and medical care plan development were reviewed and approved by the faculty preceptor. The faculty preceptor is aware and concurs with the plan as stated in the body of this note and will attest to such by his/her cosignature. ATTENDING NOTE Patient seen and examined at the bedside As discussed with the resident physician Patient is using ACAPELLA for Chest PT Pulmonary follow-up appreciated Continue present care BREANA HERERRA DO October 29, 2018 12:07 ABEBA BURT MD October 29, 2018 16:26
[2018-10-29 16:00] VITALS: BP 152/72
[2018-10-29] MEDS: CitaloPRAM (CeleXA) 20 MG TAB PO SCH (19:50)
[2018-10-29] MEDS: FAMOTIDINE 20 MG TAB PO SCH (19:50)
[2018-10-29] MEDS: LATANOPROST 0.005% OPHTH SOLN 2.5 ML OU SCH (19:50)
[2018-10-29] MEDS: MONTELUKAST 10 MG TAB PO SCH (19:50)
[2018-10-29] MEDS: CLOPIDOGREL 75 MG TAB PO SCH (19:50)
[2018-10-29 20:00] VITALS: BP 156/78
[2018-10-29 23:59] VITALS: BP 160/81
[2018-10-30] MEDS: PIPERACILLIN/TAZOBACTAM SOD 3.375 GM in D5W MINI-BAG PLUS 50 ML IV SCH ×4 (02:00→20:58)
[2018-10-30] MEDS: LEVALBUTEROL 1.25 MG/0.5 ML CONCENTRATE NEB INH SCH ×6 (02:08→23:35)
[2018-10-30] MEDS: methylPREDNISolone INJ 40 MG/1 ML VIAL (J2920) IV SCH ×4 (03:00→21:07)
[2018-10-30 04:00] VITALS: BP 157/76
[2018-10-30] MEDS: ALBUTEROL SULFATE 2.5 MG/0.5 ML INH NEB SOLN NEB PRN (04:36)
[2018-10-30] MEDS: SLF 3 ML SYR IV SCH ×3 (05:20→20:59)
[2018-10-30 06:28] LABS: HEMOGLOBIN 12.2 g/dl (13.5-17.5); MEAN CORPUSCULAR HGB CONC 33.9 g/dl (32.0-36.5); MEAN CORPUSCULAR VOLUME 94.5 fl (80.0-96.0); PLATELET COUNT, AUTOMATED 290 10^3/uL (150-450); RED BLOOD COUNT 3.81 10^6/uL (4.30-6.10); WHITE BLOOD COUNT 12.8 10^3/uL (4.0-10.0)
[2018-10-30 06:51] LABS: BLOOD UREA NITROGEN 23 MG/DL (7-18); CALCIUM LEVEL 8.5 MG/DL (8.8-10.2); CARBON DIOXIDE LEVEL 30 MEQ/L (21-32); CHLORIDE LEVEL 99 MEQ/L (98-107); CREATININE FOR GFR 0.77 MG/DL (0.70-1.30); GLOMERULAR FILTRATION RATE > 60.0 (>49); GLUCOSE, FASTING 233 MG/DL (70-100); SODIUM LEVEL 135 MEQ/L (136-145)
[2018-10-30 07:12] LABS: LYMPHOCYTES 18 % (16-52); NEUTROPHILS 81 % (35-75)
[2018-10-30 07:13] LABS: PLATELET ESTIMATE NORMAL (NORMAL)
[2018-10-30] MEDS: BUDESONIDE 0.5 MG/2 ML INHALATION SUSPENSION INH SCH ×2 (07:56→20:44)
[2018-10-30] MEDS: FORMOTEROL FUMARATE 20 MCG/2 ML INHALATION SOLUTION (PERFOROMIST) INH SCH ×2 (07:56→20:44)
[2018-10-30] MEDS: [UNRECOGNIZED DRUG - OTHER] NEB SCH ×2 (08:00→20:10)
[2018-10-30] MEDS: GLIMEPIRIDE 2 MG TAB PO SCH ×2 (08:01→17:31)
[2018-10-30] MEDS: HumaLOG INSULIN (NovoLOG) PER UNIT SC SCH ×4 (08:02→21:07)
[2018-10-30 08:47] VITALS: BP 152/75
[2018-10-30] MEDS: OSELTAMIVIR PHOSPHATE 75 MG CAP (TAMIFLU) PO SCH (09:12)
[2018-10-30] MEDS: ALPRAZolam 0.25 MG TAB PO PRN ×2 (09:12→20:57)
[2018-10-30] MEDS: OMEPRAZOLE 20 MG CAP PO SCH (09:12)
[2018-10-30] MEDS: guaiFENesin ER 600 MG TAB PO SCH ×2 (09:13→20:58)
[2018-10-30] MEDS: BRIMONIDINE 0.1% OPHTH SOLN 5 ML OU SCH ×2 (09:13→17:31)
--- NOTE | 2018-10-30 10:14 | IPN ---
DATE OF SERVICE: 10/30/2018 On my arrival to the patient's room today, he was sitting at bedside. Slightly tripoding but much less distress than on prior exams. He states he just cannot breathe. He states he feels this is the worst he has ever been. He is requesting that his nebulizers be given every 4 hours rather than every six. I will address this. He continues to receive his nebulizers with heliox for better laminar flow. Continues to have severe bronchospasm. He is not having any significant mucus production, although he does feel chest tightness and some chest rattling. He states he is having difficulty using the acapella device even with the reduced resistance because of shortness of breath. He states he just does not have enough in him to be able to perform this maneuver. He has had no fevers or chills. He states he is severely short of breath with minimal walking. He states he has to have people help him to the bathroom which is not usual for him. He states he is off balance also. PHYSICAL EXAMINATION: Temperature is 98.2, pulse is 95, respiratory rate is 18-22, blood pressure is 152/75 with oxygen saturation 95% on 3 liters. General: Awake, alert and oriented. Affect and mood are appropriate. Nutrition and hygiene are good. Oral nasal mucosa pink and moist. Oropharynx has no erythema. There is thrush on the soft palate, pretty extensive thrush in the posterior airway. Tongue is midline. Neck is supple. No tracheal deviation or mass. Lymph: No cervical, supraclavicular or axillary adenopathy. Cardiac: Regular S1, S2 distant without murmur, rub or gallop. No elevated JVP. No peripheral edema. Pulmonary: Decreased breath sounds throughout with prolonged expiratory phase, prolonged expiratory wheeze. For the first time I am auscultating some rhonchi bilaterally. I believe there is slightly better air entry, although overall exam continues to be poor. There is no accessory muscle use. Abdomen is protuberant but tympanic, soft, no discernible mass or hepatosplenomegaly. Extremities: No cyanosis, clubbing or edema. Laboratory evaluation shows a white blood cell count of 12.8, hemoglobin of 12.2, sodium is 135, potassium 4.0, chloride is 99, bicarb of 30 with a BUN of 23, creatinine of 0.77. IMPRESSION: 1. Chronic obstructive pulmonary disease (COPD) exacerbation, probably from parainfluenza. The patient is also growing Serratia in his sputum which he has grown before. He remains on antibiotic therapy. He is also on high dose IV steroids. Will continue the heliox nebs. Will schedule these every 4 hours and see how he does over the next few days. I think he is too bronchospastic to tolerate Mucomyst or any other potentially irritating inhalants. Overall very poor prognosis. He has had end-stage lung disease for a number of years. 2. Oral thrush. I have prescribed one dose of oral Diflucan and then Nystatin swish and swallow. He remains on high dose steroids with antibiotics. Therefore I believe he will require this during his hospital stay.
[2018-10-30] MEDS ORDERED: FLUCONAZOLE 50MG TABLET PO ONE (11:00)
[2018-10-30] MEDS: NYSTATIN 500,000 U/5 ML SUSP UDC SS SCH ×3 (11:22→20:58)
[2018-10-30 12:00] VITALS: BP 158/92
--- NOTE | 2018-10-30 12:04 | IPNPDOC ---
Subjective Date Seen The patient was seen on 10/30/18. Subjective Chief Complaint/HPI Patient feeling slightly better now, but he does have a poor prognosis. Patient is on heliox treatments General: Denies: ROS Unobtainable, Chills, Night Sweats, Fatigue, Malaise, Normal Appetite, Other Symptoms Constitutional: Denies: Chills, Fever, Malaise, Night Sweats, Weakness, Fatigue, Weight Loss, Lethargy, Other Eyes: Denies: Pain, Vision change, Conjunctivae inflammation, Eyelid inflammation, Redness, Other ENT: Denies: Head Aches, Ear Pain, Dysphagia, Sinus Congestion, Post Nasal Drip, Sore Throat, Epistaxis, Other Symptoms Skin: Denies: Rash, Lesions, Jaundice, Bruising, Itching, Dry, Breakdown, Nail Changes, Other Pulmonary: Reports: Dyspnea; Denies: Cough, Pleuritic Chest Pain, Other Symptoms Cardiovascular: Denies: Chest Pain, Palpitations, Orthopnea, Paroxysmal Noc. Dyspnea, Edema, Lt Headedness, Other Symptoms Gastrointestinal: Denies: Nausea, Vomiting, Abdominal Pain, Diarrhea, Constipation, Melena, Hematochezia, Other Symptoms Genitourinary: Denies: Dysuria, Frequency, Incontinence, Hematuria, Retention, Other Symptoms Hematologic: Denies: Bruising, Bleeding Excessively, Petecchia, Purpura, Enlarged Lymph Nodes, Other Hematologic Endocrine: Denies: Polydipsia, Polyphagia, Polyuria, Heat Intolerance, Cold Intolerance, Other Endocrine Sx Musculoskeletal: Denies: Neck Pain, Back Pain, Shoulder Pain, Arm Pain, Hand Pain, Leg Pain, Foot Pain, Joint Pain, Muscle Pain, Spasms, Other Symptoms Psych: Denies: Mood Normal, Anxiety, Depression, Memory Issues, Thoughts of Self Harm, Anger, Thoughts of Harming Other, Other Psych Objective Physical Examination General Exam: Positive: Alert, Cooperative, Severe Distress Eye Exam: Positive: PERRLA, Conjunctiva & lids normal, EOMI; Negative: Sclera icteric ENT Exam: Positive: Atraumatic, Mucous membr. moist/pink, Pharynx Normal Neck Exam: Positive: Supple Chest Exam: Positive: Rales, Rhonchi, Wheezing, Diminished, Other (accessoryry muscles working. ) Heart Exam: Positive: Tachycardic, Regular Rhythm, Normal S1, Normal S2; Negative: Irregular Rhythm, Gallops, Murmurs, Rubs Telemetry: Positive: Sinus, Tachycardia Abdomen Exam: Positive: Normal bowel sounds, Soft Extremity Exam: Negative: Clubbing, Cyanosis, Edema Psych Exam: Positive: Anxiety, Memory Intact, Oriented x 3 Assessment /Plan Problems (1) Acute on chronic respiratory failure with hypoxia and hypercapnia Status: Acute (2) Acute bronchitis and bronchiolitis Status: Acute (3) Bronchiectasis with acute exacerbation Status: Acute Plan/VTE VTE Prophylaxis Ordered?: Yes Plan 1. Acute exacerbation of Bronchiectasis and Acute Bronchitis -Patient continues to have difficulty with muscocillary clearance. He has been given an Acapella which he is using. Respiratory panel was positive for Parainfluenza Type 3. His sputum culture was positive for Serratia marcescens ho wever, he may be chornically colonized. He has been receiving Zosyn. Given his degree of bronchiectasis and condition we will continue his antibiotics. -Pulmonary follow-up appreciated Patient has poor prognosis Continue heliox treatments Further, as per Dr. Luna's recommendation 2. Acute on chronic hypercarbic respiratory failure 2/2 COPD exacerbation and acute bronchitis and bronchiectasis -Patient was hypercarbic on presentation in the ER. He is currently on nasal cannula with 2 L oxygen saturations at 93%. -Patient will be placed on Xopenex nebulizer sinus tachycardia. He can continue his home medication glycopyrrolate 30 min prior to Xopenex nebulizer. -Albuterol nebulizer every 2 hours when necessary -Methylprednisolone 60 mg every 6 hours IV. -Pulmicort 0.5 mg required twice a day -Mucinex tab 200 mg twice a day -Perforomist -Procalcitonin 0.49 -Sputum Culture was positive for Serratia marcescens. Patient may be chronically colonized. Will continue antibiotics given patients degree of bronchiectasis -Pulmonary consultation has been placed assistance greatly appreciated. 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 He is currently DNR/DNI. Will continue current treatment with r ecommendations from pulmonary medicine. 3. MYKEL -Patient to continue with his home CPAP 4. Anxiety -Patient was stated to have fairly severe anxiety. He was started on Xanax 0.25 mg every 12 hours when necessary. He is to be continued on citalopram 20 mg daily at bedtime 5., Diabetes -Patient is a history of diabetes, likely secondary to chronic steroid use. Continue with sliding scale protocol -Glimepiride 4 mg twice a day 6., Hypertension -Diltiazem 240 mg daily 7. Gastroesophageal reflux disease -Famotidine 40 mg daily at bedtime -Omeprazole 40 mg daily 8. Coronary disease status post JESÚS, peripheral arterial disease status post stent placement. -Continue Plavix and 75 mg daily at bedtime 9. DVT prophylaxis. -Josue's and sequentials VS, I&O, 24H, Fishbone Vital Signs/I&O Vital Signs Date Time Temp Pulse Resp B/P (MAP) Pulse Ox O2 Delivery O2 Flow Rate FiO2 10/30/18 11:36 3.0 10/30/18 09:13 95 152/75 10/30/18 08:47 98.2 18 95 10/28/18 23:32 Nasal Cannula 10/27/18 19:30 21 I&O- Last 24 Hours up to 6 AM 10/30/18 06:00 Intake Total 1860 ml Output Total 1050 ml Balance 810 ml Laboratory Data 24H LABS Laboratory Tests 2 10/29/18 17:43: Bedside Glucose (Misc Panel) 401H 10/29/18 19:55: Bedside Glucose (Misc Panel) 348H 10/30/18 05:45: Nucleated Red Blood Cells % (auto) 0.0, Neutrophils 81H, Band Neutrophils 1, Lymphocytes (Manual) 18, Platelet Estimate NORMAL, Anion Gap 6L, Glomerular Filtration Rate > 60.0, Blood Urea Nitrogen 23H, Creatinine 0.77, Sodium Level 135L, Potassium Level 4.0, Chloride Level 99, Carbon Dioxide Level 30, Calcium Level 8.5L 10/30/18 11:28: Bedside Glucose (Misc Panel) 370H CBC/BMP Laboratory Tests 10/30/18 05:45 Red Blood Count 3.81 L, Mean Corpuscular Volume 94.5, Mean Corpuscular Hemoglobin 32.0, Mean Corpuscular Hemoglobin Concent 33.9, Red Cell Distribution Width 13.0, Calcium Level 8.5 L Microbiology Microbiology 10/26/18 Blood Culture - Preliminary, Resulted No Growth after 72 hours. All specime... 10/26/18 Blood Culture - Preliminary, Resulted No Growth after 72 hours. All specime... 10/26/18 Gram Stain - Final, Complete 10/26/18 Sputum Culture - Final, Complete Serratia Marcescens 10/26/18 Respiratory Virus Panel (PCR) ([facility]) - Final, Complete Parainfluenza 3 (Piv3) ABEBA BURT MD October 30, 2018 12:04
[2018-10-30 16:00] VITALS: BP 146/88
[2018-10-30 20:00] VITALS: BP 150/80
[2018-10-30] MEDS: CLOPIDOGREL 75 MG TAB PO SCH (20:57)
[2018-10-30] MEDS: MONTELUKAST 10 MG TAB PO SCH (20:58)
[2018-10-30] MEDS: FAMOTIDINE 20 MG TAB PO SCH (20:58)
[2018-10-30] MEDS: CitaloPRAM (CeleXA) 20 MG TAB PO SCH (20:58)
[2018-10-30] MEDS: LATANOPROST 0.005% OPHTH SOLN 2.5 ML OU SCH (20:59)
[2018-10-30 23:59] VITALS: BP 150/74
[2018-10-31] MEDS: methylPREDNISolone INJ 40 MG/1 ML VIAL (J2920) IV SCH ×4 (02:55→21:24)
[2018-10-31] MEDS: PIPERACILLIN/TAZOBACTAM SOD 3.375 GM in D5W MINI-BAG PLUS 50 ML IV SCH ×4 (02:55→19:45)
[2018-10-31] MEDS: LEVALBUTEROL 1.25 MG/0.5 ML CONCENTRATE NEB INH SCH ×6 (03:47→23:37)
[2018-10-31 04:00] VITALS: BP 148/80
[2018-10-31 05:24] LABS: BASO % 0.1 % (0.0-1.0); HEMATOCRIT 34.7 % (42.0-52.0); HEMOGLOBIN 11.6 g/dl (13.5-17.5); LYMPH # 1.1 10^3/uL (1.5-4.5); LYMPH % 7.9 % (24.0-44.0); MEAN CORPUSCULAR HEMOGLOBIN 31.6 pg (27.0-33.0); MEAN CORPUSCULAR HGB CONC 33.4 g/dl (32.0-36.5); MEAN CORPUSCULAR VOLUME 94.6 fl (80.0-96.0); MONO # 0.6 10^3/uL (0.0-0.8); MONO % 4.6 % (0.0-5.0); NEUTROPHILS # 11.7 10^3/uL (1.8-7.7); NEUTROPHILS % 83.7 % (36.0-66.0); PLATELET COUNT, AUTOMATED 293 10^3/uL (150-450); RED BLOOD COUNT 3.67 10^6/uL (4.30-6.10)
[2018-10-31] MEDS: SLF 3 ML SYR IV SCH ×3 (05:41→21:24)
[2018-10-31 05:49] LABS: BLOOD UREA NITROGEN 23 MG/DL (7-18); CALCIUM LEVEL 7.5 MG/DL (8.8-10.2); CARBON DIOXIDE LEVEL 32 MEQ/L (21-32); CHLORIDE LEVEL 104 MEQ/L (98-107); CREATININE FOR GFR 0.76 MG/DL (0.70-1.30); GLOMERULAR FILTRATION RATE > 60.0 (>49); GLUCOSE, FASTING 254 MG/DL (70-100); POTASSIUM SERUM 4.1 MEQ/L (3.5-5.1); SODIUM LEVEL 142 MEQ/L (136-145)
[2018-10-31] MEDS: BUDESONIDE 0.5 MG/2 ML INHALATION SUSPENSION INH SCH ×2 (07:45→20:18)
[2018-10-31] MEDS: [UNRECOGNIZED DRUG - OTHER] NEB SCH ×2 (07:45→19:46)
[2018-10-31] MEDS: FORMOTEROL FUMARATE 20 MCG/2 ML INHALATION SOLUTION (PERFOROMIST) INH SCH ×2 (07:45→20:17)
[2018-10-31 08:00] VITALS: BP 160/78
[2018-10-31] MEDS: OMEPRAZOLE 20 MG CAP PO SCH (08:30)
[2018-10-31] MEDS: guaiFENesin ER 600 MG TAB PO SCH ×2 (08:30→20:44)
[2018-10-31] MEDS: NYSTATIN 500,000 U/5 ML SUSP UDC SS SCH ×3 (08:30→20:44)
[2018-10-31] MEDS: BRIMONIDINE 0.1% OPHTH SOLN 5 ML OU SCH ×2 (08:31→17:04)
[2018-10-31] MEDS: GLIMEPIRIDE 2 MG TAB PO SCH ×2 (08:31→17:04)
[2018-10-31] MEDS: BACTRIM 160MG/800MG DS TAB PO SCH (08:32)
[2018-10-31] MEDS: HumaLOG INSULIN (NovoLOG) PER UNIT SC SCH ×4 (08:32→20:44)
[2018-10-31] MEDS: LACTOBACILLUS ACIDOPHILUS CAP (BACID) PO SCH (09:36)
--- NOTE | 2018-10-31 10:17 | IPNPDOC ---
Subjective Date Seen The patient was seen on 10/31/18. Subjective Chief Complaint/HPI Patient feels much better, decreased labored breathing and has no complaint except minus SOB all the time General: Denies: ROS Unobtainable, Chills, Night Sweats, Fatigue, Malaise, Normal Appetite, Other Symptoms Constitutional: Denies: Chills, Fever, Malaise, Night Sweats, Weakness, Fatigue, Weight Loss, Lethargy, Other Eyes: Denies: Pain, Vision change, Conjunctivae inflammation, Eyelid inflammation, Redness, Other ENT: Denies: Head Aches, Ear Pain, Dysphagia, Sinus Congestion, Post Nasal Drip, Sore Throat, Epistaxis, Other Symptoms Skin: Denies: Rash, Lesions, Jaundice, Bruising, Itching, Dry, Breakdown, Nail Changes, Other Pulmonary: Reports: Dyspnea; Denies: Cough, Pleuritic Chest Pain, Other Symptoms Cardiovascular: Denies: Chest Pain, Palpitations, Orthopnea, Paroxysmal Noc. Dyspnea, Edema, Lt Headedness, Other Symptoms Gastrointestinal: Denies: Nausea, Vomiting, Abdominal Pain, Diarrhea, Constipation, Melena, Hematochezia, Other Symptoms Genitourinary: Denies: Dysuria, Frequency, Incontinence, Hematuria, Retention, Other Symptoms Hematologic: Denies: Bruising, Bleeding Excessively, Petecchia, Purpura, Enlarged Lymph Nodes, Other Hematologic Endocrine: Denies: Polydipsia, Polyphagia, Polyuria, Heat Intolerance, Cold Intolerance, Other Endocrine Sx Musculoskeletal: Denies: Neck Pain, Back Pain, Shoulder Pain, Arm Pain, Hand Pain, Leg Pain, Foot Pain, Joint Pain, Muscle Pain, Spasms, Other Symptoms Neurological: Denies: Weakness, Numbness, Incoordination, Change in speech, Confusion, Seizures, Other Symptoms Psych: Denies: Mood Normal, Anxiety, Depression, Memory Issues, Thoughts of Self Harm, Anger, Thoughts of Harming Other, Other Psych Objective Physical Examination General Exam: Positive: Alert, Cooperative, Severe Distress Eye Exam: Positive: PERRLA, Conjunctiva & lids normal, EOMI; Negative: Sclera icteric ENT Exam: Positive: Atraumatic, Mucous membr. moist/pink, Pharynx Normal Neck Exam: Positive: Supple Chest Exam: Positive: Rales, Rhonchi, Wheezing, Diminished, Other (accessoryry muscles working. ) Heart Exam: Positive: Tachycardic, Regular Rhythm, Normal S1, Normal S2; Negative: Irregular Rhythm, Gallops, Murmurs, Rubs Telemetry: Positive: Sinus, Tachycardia Abdomen Exam: Positive: Normal bowel sounds, Soft Extremity Exam: Negative: Clubbing, Cyanosis, Edema Psych Exam: Positive: Anxiety, Memory Intact, Oriented x 3 Assessment /Plan Problems (1) Acute on chronic respiratory failure with hypoxia and hypercapnia Status: Acute Problem Text: Pulmonary follow-up appreciated Patient on heliox every 6 hours Continue by mouth steroids Continue DuoNeb as per orders Poor prognosis Once cleared by pulmonary. We will discharge him home on present meds (2) Acute bronchitis and bronchiolitis Status: Acute Problem Text: As above (3) Bronchiectasis with acute exacerbation Status: Chronic Problem Text: As above Plan/VTE VTE Prophylaxis Ordered?: Yes VS, I&O, 24H, Fishbone Vital Signs/I&O Vital Signs Date Time Temp Pulse Resp B/P (MAP) Pulse Ox O2 Delivery O2 Flow Rate FiO2 10/31/18 08:30 160/78 10/31/18 08:00 97.0 64 20 98 3.0 10/28/18 23:32 Nasal Cannula 10/27/18 19:30 21 I&O- Last 24 Hours up to 6 AM 10/31/18 06:00 Intake Total 2320 ml Output Total 3550 ml Balance -1230 ml Laboratory Data 24H LABS Laboratory Tests 2 10/30/18 11:28: Bedside Glucose (Misc Panel) 370H 10/30/18 16:54: Bedside Glucose (Misc Panel) 373H 10/30/18 21:02: Bedside Glucose (Misc Panel) 491H 10/31/18 04:59: Immature Granulocyte % (Auto) 3.7H, White Blood Count 14.0H, Red Blood Count 3.67L, Hemoglobin 11.6L, Hematocrit 34.7L, Mean Corpuscular Volume 94.6, Mean Corpuscular Hemoglobin 31.6, Mean Corpuscular Hemoglobin Concent 33.4, Red Cell Distribution Width 12.9, Platelet Count 293, Neutrophils (%) (Auto) 83.7H, Lymphocytes (%) (Auto) 7.9L, Monocytes (%) (Auto) 4.6, Eosinophils (%) (Auto) 0.0, Basophils (%) (Auto) 0.1, Neutrophils # (Auto) 11.7H, Lymphocytes # (Auto) 1.1L, Monocytes # (Auto) 0.6, Eosinophils # (Auto) 0.0, Basophils # (Auto) 0.0, Nucleated Red Blood Cells % (auto) 0.2H, Anion Gap 6L, Glomerular Filtration Ra te > 60.0, Blood Urea Nitrogen 23H, Creatinine 0.76, Sodium Level 142#, Potassium Level 4.1, Chloride Level 104, Carbon Dioxide Level 32, Calcium Level 7.5L CBC/BMP Laboratory Tests 10/31/18 04:59 Red Blood Count 3.67 L, Mean Corpuscular Volume 94.6, Mean Corpuscular Hemoglobin 31.6, Mean Corpuscular Hemoglobin Concent 33.4, Red Cell Distribution Width 12.9, Neutrophils (%) (Auto) 83.7 H, Lymphocytes (%) (Auto) 7.9 L, Monocytes (%) (Auto) 4.6, Eosinophils (%) (Auto) 0.0, Basophils (%) (Auto) 0.1, Neutrophils # (Auto) 11.7 H, Lymphocytes # (Auto) 1.1 L, Monocytes # (Auto) 0.6, Eosinophils # (Auto) 0.0, Basophils # (Auto) 0.0, Calcium Level 7.5 L Microbiology Microbiology 10/26/18 Blood Culture - Final, Complete NO GROWTH AFTER 5 DAYS 10/26/18 Blood Culture - Final, Complete NO GROWTH AFTER 5 DAYS 10/26/18 Gram Stain - Final, Complete 10/26/18 Sputum Culture - Final, Complete Serratia Marcescens 10/26/18 Respiratory Virus Panel (PCR) ([facility]) - Final, Complete Parainfluenza 3 (Piv3) ABEBA BURT MD October 31, 2018 10:17
[2018-10-31 12:00] VITALS: BP 138/78
[2018-10-31 16:00] VITALS: BP 152/72
[2018-10-31 20:00] VITALS: BP 140/72
[2018-10-31] MEDS: CLOPIDOGREL 75 MG TAB PO SCH (20:44)
[2018-10-31] MEDS: CitaloPRAM (CeleXA) 20 MG TAB PO SCH (20:44)
[2018-10-31] MEDS: MONTELUKAST 10 MG TAB PO SCH (20:44)
[2018-10-31] MEDS: FAMOTIDINE 20 MG TAB PO SCH (20:44)
[2018-10-31] MEDS: ALPRAZolam 0.25 MG TAB PO PRN (20:45)
[2018-10-31] MEDS: LATANOPROST 0.005% OPHTH SOLN 2.5 ML OU SCH (20:45)
[2018-10-31 23:59] VITALS: BP 144/80
[2018-11-01] MEDS: methylPREDNISolone INJ 40 MG/1 ML VIAL (J2920) IV SCH (02:37)
[2018-11-01] MEDS: PIPERACILLIN/TAZOBACTAM SOD 3.375 GM in D5W MINI-BAG PLUS 50 ML IV SCH ×4 (02:37→20:03)
[2018-11-01] MEDS: LEVALBUTEROL 1.25 MG/0.5 ML CONCENTRATE NEB INH SCH ×6 (03:29→23:58)
[2018-11-01 04:00] VITALS: BP 160/70
[2018-11-01 05:23] LABS: BASO % 0.2 % (0.0-1.0); HEMATOCRIT 35.6 % (42.0-52.0); HEMOGLOBIN 11.9 g/dl (13.5-17.5); LYMPH # 0.8 10^3/uL (1.5-4.5); LYMPH % 5.1 % (24.0-44.0); MEAN CORPUSCULAR HEMOGLOBIN 31.5 pg (27.0-33.0); MEAN CORPUSCULAR HGB CONC 33.4 g/dl (32.0-36.5); MEAN CORPUSCULAR VOLUME 94.2 fl (80.0-96.0); MONO # 0.4 10^3/uL (0.0-0.8); MONO % 2.6 % (0.0-5.0); NEUTROPHILS # 13.7 10^3/uL (1.8-7.7); NEUTROPHILS % 88.1 % (36.0-66.0); PLATELET COUNT, AUTOMATED 320 10^3/uL (150-450); RED BLOOD COUNT 3.78 10^6/uL (4.30-6.10); WHITE BLOOD COUNT 15.6 10^3/uL (4.0-10.0)
[2018-11-01] MEDS: SLF 3 ML SYR IV SCH ×3 (05:27→20:54)
[2018-11-01 05:42] LABS: BLOOD UREA NITROGEN 21 MG/DL (7-18); CALCIUM LEVEL 7.7 MG/DL (8.8-10.2); CARBON DIOXIDE LEVEL 29 MEQ/L (21-32); CHLORIDE LEVEL 100 MEQ/L (98-107); GLOMERULAR FILTRATION RATE > 60.0 (>49); GLUCOSE, FASTING 261 MG/DL (70-100); POTASSIUM SERUM 4.3 MEQ/L (3.5-5.1); SODIUM LEVEL 138 MEQ/L (136-145)
--- NOTE | 2018-11-01 07:42 | CCN ---
DATE: 10/31/2018 The patient was interviewed and examined in his hospital room this morning. He reports subjective improvement in his breathing overnight. He states that this morning he was able to ambulate from his bed to the window and back with minimal difficulty. This is compared to his limited ambulating ability yesterday. The patient has also reported an increase in the amount of diarrhea secondary to cough. He was able to produce a small amount of sputum this morning, the first of this hospitalization. He reports subjective improvement since then. The patient denies any chest tightness or audible rattling at this time. He is continuing to receive his nebulizer treatments with heliox to improve laminar flow. He denies any headache, changes in vision, chest tightness or chest pain with deep inspiration. No chest pain or discomfort. No abdominal pain or discomfort. No nausea or vomiting. He did have diarrhea this morning as previously mentioned. No difficulty with urination. No lower extremity swelling or edema. PHYSICAL EXAMINATION: VITAL SIGNS: Temperature 95.7, pulse is 61, respiratory rate is 20, blood pressure is 148/80, mean arterial pressure of 102, pulse oximetry was 98. He still continues to receive 3 liters of oxygen via nasal cannula. GENERAL: The patient was interviewed and examined in his hospital room. The patient was found to be sitting upright in his hospital bed, wearing hospital clothing in no acute distress. The patient was able to answer questions appropriately and actively participate in his care. HEENT: Head normocephalic, atraumatic. Mucosa is pink and moist. Fair oral hygiene. The patient continues to demonstrate extensive thrush. No tracheal deviation. NECK: No cervical lymphadenopathy. No jugular venous distention (JVD). CARDIAC: Regular S1 and S2. No murmurs appreciated. No peripheral edema. PULMONARY: Decreased breath sounds throughout. The patient continues to have a prolonged expiratory phase, decreased wheezing throughout compared to prior examination. No accessory muscle use. ABDOMEN: Protuberant, nontender, nondistended. No discernible masses. EXTREMITIES: No lower extremity edema. No calf tenderness bilaterally. No cyanosis. No clubbing appreciated either. LABORATORY EVALUATION: CBC does demonstrate a white count of 14, hemoglobin and hematocrit of 11.6/34.7. BMP this morning within normal limits except for a BUN/creatinine of 23/0.76, calcium also low at 7.5. IMPRESSION: 1. Chronic obstructive pulmonary disease (COPD) exacerbation, secondary to parainfluenza. Serratia was also grown in sputum. This has also been grown before with this patient. The patient is currently receiving antibiotic therapy in addition to high dose steroids. The patient is also receiving heliox with his nebulizer treatments to increase effectiveness. He is receiving those every 4 hours. The patient has had end stage lung disease for a number of years. He has demonstrated notable improvement this morning with the aforementioned treatments. The patient will continue to receive those with a potential date of discharge for possibly Wednesday, or 11/02/2018. 2. Oral thrush. The patient is continuing on nystatin swish and swallow. He did receive an oral dose of Diflucan. The patient is on high dose steroid therapy in addition to antibiotics. 3. Diarrhea. The patient is reporting a single episode of diarrhea this morning. A probiotic will be prescribed. [facility]
[2018-11-01] MEDS: FORMOTEROL FUMARATE 20 MCG/2 ML INHALATION SOLUTION (PERFOROMIST) INH SCH ×2 (07:49→20:07)
[2018-11-01] MEDS: BUDESONIDE 0.5 MG/2 ML INHALATION SUSPENSION INH SCH ×2 (07:49→20:07)
[2018-11-01] MEDS: [UNRECOGNIZED DRUG - OTHER] NEB SCH ×2 (07:53→20:07)
[2018-11-01 08:00] VITALS: BP 166/78
[2018-11-01] MEDS: OMEPRAZOLE 20 MG CAP PO SCH (10:03)
[2018-11-01] MEDS: HumaLOG INSULIN (NovoLOG) PER UNIT SC SCH ×4 (10:04→20:53)
[2018-11-01] MEDS: LACTOBACILLUS ACIDOPHILUS CAP (BACID) PO SCH (10:04)
[2018-11-01] MEDS: GLIMEPIRIDE 2 MG TAB PO SCH ×2 (10:06→18:19)
[2018-11-01] MEDS: predniSONE 20 MG TAB PO SCH (10:06)
[2018-11-01] MEDS: NYSTATIN 500,000 U/5 ML SUSP UDC SS SCH ×3 (10:06→20:52)
[2018-11-01] MEDS: guaiFENesin ER 600 MG TAB PO SCH ×2 (10:06→20:52)
[2018-11-01] MEDS: BRIMONIDINE 0.1% OPHTH SOLN 5 ML OU SCH ×2 (10:07→18:19)
--- NOTE | 2018-11-01 10:13 | CCN ---
DATE: 11/01/2018 Mr. Velasquez is seen in progressive care unit (PCU). He states that today he is feeling better than he had been. He does feel that he is able to use his Acapella and bring up more mucus. Feels that he is moving more air than he had been. He feels he is slowly returning to baseline. He does continue to use his nebulizer treatments and Heliox. He denies any fevers or chills. He states his diarrhea has improved some. He is hoping to be able to be discharged home in the next day or two. PHYSICAL EXAMINATION: Vitals: Temperature is 97.8, pulse 70, respiratory rate 24, blood pressure is 166/78, pulse ox 99% on 3 liters. GENERAL: The patient is alert and oriented. He speaks in complete sentences. He is sitting up in his hospital bed. HEENT: Head is normocephalic, atraumatic. Moist oral mucosa. NECK: Neck is supple. No cervical lymphadenopathy. No jugular venous distention (JVD). Trachea is midline. PULMONARY: Diminished breath sounds throughout. Very prolonged expiratory phase. Scattered expiratory wheezing. No accessory muscle use. HEART: Regular rate and rhythm. S1, S2. No murmurs. ABDOMEN: Positive bowel sounds, soft, nontender. No rebound or guarding. EXTREMITIES: No lower extremity edema. LABORATORY DATA: WBC 15.6, hemoglobin 11.9, hematocrit 35.6, platelets 320. Sodium 138, potassium 4.3, chloride 100, carbon dioxide 29, BUN 21, creatinine 0.70, glucose 261, calcium 7.7. ASSESSMENT AND PLAN: 1. Chronic obstructive pulmonary disease (COPD) exacerbation secondary to parainfluenza. Serratia growth in sputum is also noted. The patient is currently being treated with Zosyn. He continues to receive Heliox with nebulizer treatments. The patient is overall improving and his breathing does sound to be close to his baseline. We feel that the patient can probably be discharged home on oral antibiotics within the next 24 hours. 2. Oral thrush. The patient is using nystatin swish and swallow.
--- NOTE | 2018-11-01 11:12 | IPNPDOC ---
Subjective Date Seen The patient was seen on 11/01/18. Subjective Chief Complaint/HPI Patient is much improved, good air exchange offers no other complaints General: Denies: ROS Unobtainable, Chills, Night Sweats, Fatigue, Malaise, Normal Appetite, Other Symptoms Constitutional: Denies: Chills, Fever, Malaise, Night Sweats, Weakness, Fatigue, Weight Loss, Lethargy, Other Eyes: Denies: Pain, Vision change, Conjunctivae inflammation, Eyelid inflammation, Redness, Other ENT: Denies: Head Aches, Ear Pain, Dysphagia, Sinus Congestion, Post Nasal Drip, Sore Throat, Epistaxis, Other Symptoms Skin: Denies: Rash, Lesions, Jaundice, Bruising, Itching, Dry, Breakdown, Nail Changes, Other Pulmonary: Denies: Dyspnea, Cough, Pleuritic Chest Pain, Other Symptoms Cardiovascular: Denies: Chest Pain, Palpitations, Orthopnea, Paroxysmal Noc. Dyspnea, Edema, Lt Headedness, Other Symptoms Gastrointestinal: Denies: Nausea, Vomiting, Abdominal Pain, Diarrhea, Cons tipation, Melena, Hematochezia, Other Symptoms Genitourinary: Denies: Dysuria, Frequency, Incontinence, Hematuria, Retention, Other Symptoms Hematologic: Denies: Bruising, Bleeding Excessively, Petecchia, Purpura, Enlarged Lymph Nodes, Other Hematologic Endocrine: Denies: Polydipsia, Polyphagia, Polyuria, Heat Intolerance, Cold Intolerance, Other Endocrine Sx Musculoskeletal: Denies: Neck Pain, Back Pain, Shoulder Pain, Arm Pain, Hand Pain, Leg Pain, Foot Pain, Joint Pain, Muscle Pain, Spasms, Other Symptoms Neurological: Denies: Weakness, Numbness, Incoordination, Change in speech, Confusion, Seizures, Other Symptoms Psych: Denies: Mood Normal, Anxiety, Depression, Memory Issues, Thoughts of Self Harm, Anger, Thoughts of Harming Other, Other Psych Objective Physical Examination General Exam: Positive: Alert, Cooperative, Severe Distress Eye Exam: Positive: PERRLA, Conjunctiva & lids normal, EOMI; Negative: Sclera icteric ENT Exam: Positive: Atraumatic, Mucous membr. moist/pink, Pharynx Normal Neck Exam: Positive: Supple Chest Exam: Positive: Diminished Heart Exam: Positive: Regular Rhythm, Normal S1, Normal S2; Negative: Irregular Rhythm, Gallops, Murmurs, Rubs Telemetry: Positive: Sinus, Tachycardia Abdomen Exam: Positive: Normal bowel sounds, Soft Extremity Exam: Negative: Clubbing, Cyanosis, Edema Psych Exam: Positive: Memory Intact, Oriented x 3 Assessment /Plan Problems (1) Acute on chronic respiratory failure with hypoxia and hypercapnia Status: Acute Problem Text: Pulmonary follow-up appreciated Patient on heliox every 6 hours Continue by mouth steroids Continue DuoNeb as per orders Improving very well Follow-up by pulmonary appreciated Possible discharge in all antibiotics in 24 hours Poor prognosis (2) Acute bronchitis and bronchiolitis Status: Acute Problem Text: As above (3) Bronchiectasis with acute exacerbation Status: Chronic Problem Text: As above Plan/VTE VTE Prophylaxis Ordered?: Yes VS, I&O, 24H, Fishbone Vital Signs/I&O Vital Signs Date Time Temp Pulse Resp B/P (MAP) Pulse Ox O2 Delivery O2 Flow Rate FiO2 11/01/18 10:05 166/78 11/01/18 08:00 97.8 70 24 99 11/01/18 04:00 3.0 10/28/18 23:32 Nasal Cannula 10/27/18 19:30 21 I&O- Last 24 Hours up to 6 AM 11/01/18 06:00 Intake Total 2860 ml Output Total 2400 ml Balance 460 ml Laboratory Data 24H LABS Laboratory Tests 2 10/31/18 11:55: Bedside Glucose (Misc Panel) 332H 10/31/18 16:48: Bedside Glucose (Misc Panel) 358H 10/31/18 20:34: Bedside Glucose (Misc Panel) 312H 11/01/18 04:55: Immature Granulocyte % (Auto) 4.0H, White Blood Count 15.6H, Red Blood Count 3.78L, Hemoglobin 11.9L, Hematocrit 35.6L, Mean Corpuscular Volume 94.2, Mean Corpuscular Hemoglobin 31.5, Mean Corpuscular Hemoglobin Concent 33.4, Red Cell Distribution Width 12.8, Platelet Count 320, Neutrophils (%) (Auto) 88.1H, Lymphocytes (%) (Auto) 5.1L, Monocytes (%) (Auto) 2.6, Eosinophils (%) (Auto) 0.0, Basophils (%) (Auto) 0.2, Neutrophils # (Auto) 13.7H, Lymphocytes # (Auto) 0.8L, Monocytes # (Auto) 0.4, Eosinophils # (Auto) 0.0, Basophils # (Auto) 0.0, Nucleated Red Blood Cells % (auto) 0.3H, Anion Gap 9, Glomerular Filtration Rate > 60.0, Blood Urea Nitrogen 21H, Creatinine 0.70, Sodium Level 138, Potassium Level 4.3, Chloride Level 100, Carbon Dioxide Level 29, Calcium Level 7.7L CBC/BMP Laboratory Tests 11/01/18 04:55 Red Blood Count 3.78 L, Mean Corpuscular Volume 94.2, Mean Corpuscular Hemoglobin 31.5, Mean Corpuscular Hemoglobin Concent 33.4, Red Cell Distribution Width 12.8, Neutrophils (%) (Auto) 88.1 H, Lymphocytes (%) (Auto) 5.1 L, Monocytes (%) (Auto) 2.6, Eosinophils (%) (Auto) 0.0, Basophils (%) (Auto) 0.2, Neutrophils # (Auto) 13.7 H, Lymphocytes # (Auto) 0.8 L, Monocytes # (Auto) 0.4, Eosinophils # (Auto) 0.0, Basophils # (Auto) 0.0, Calcium Level 7.7 L Microbiology Microbiology 10/26/18 Blood Culture - Final, Complete NO GROWTH AFTER 5 DAYS 10/26/18 Blood Culture - Final, Complete NO GROWTH AFTER 5 DAYS 10/26/18 Gram Stain - Final, Complete 10/26/18 Sputum Culture - Final, Complete Serratia Marcescens 10/26/18 Respiratory Virus Panel (PCR) ([facility]) - Final, Complete Parainfluenza 3 (Piv3) ABEBA BURT MD November 01, 2018 11:12
[2018-11-01 12:00] VITALS: BP 158/85
[2018-11-01 16:00] VITALS: BP 164/76
[2018-11-01 20:00] VITALS: BP 132/74
[2018-11-01] MEDS: FAMOTIDINE 20 MG TAB PO SCH (20:52)
[2018-11-01] MEDS: CitaloPRAM (CeleXA) 20 MG TAB PO SCH (20:52)
[2018-11-01] MEDS: MONTELUKAST 10 MG TAB PO SCH (20:52)
[2018-11-01] MEDS: CLOPIDOGREL 75 MG TAB PO SCH (20:52)
[2018-11-01] MEDS: LATANOPROST 0.005% OPHTH SOLN 2.5 ML OU SCH (20:54)
[2018-11-01 23:59] VITALS: BP 156/80
[2018-11-02] MEDS: PIPERACILLIN/TAZOBACTAM SOD 3.375 GM in D5W MINI-BAG PLUS 50 ML IV SCH ×2 (02:09→07:41)
[2018-11-02 04:00] VITALS: BP 142/68
[2018-11-02] MEDS: LEVALBUTEROL 1.25 MG/0.5 ML CONCENTRATE NEB INH SCH ×3 (04:08→11:13)
[2018-11-02] MEDS: SLF 3 ML SYR IV SCH (05:31)
[2018-11-02 05:55] LABS: HEMATOCRIT 36.9 % (42.0-52.0); HEMOGLOBIN 12.5 g/dl (13.5-17.5); MEAN CORPUSCULAR HEMOGLOBIN 31.7 pg (27.0-33.0); MEAN CORPUSCULAR HGB CONC 33.9 g/dl (32.0-36.5); MEAN CORPUSCULAR VOLUME 93.7 fl (80.0-96.0); PLATELET COUNT, AUTOMATED 335 10^3/uL (150-450); RED BLOOD COUNT 3.94 10^6/uL (4.30-6.10); WHITE BLOOD COUNT 15.1 10^3/uL (4.0-10.0)
[2018-11-02 06:16] LABS: BLOOD UREA NITROGEN 17 MG/DL (7-18); CALCIUM LEVEL 7.7 MG/DL (8.8-10.2); CARBON DIOXIDE LEVEL 32 MEQ/L (21-32); CHLORIDE LEVEL 101 MEQ/L (98-107); GLOMERULAR FILTRATION RATE > 60.0 (>49); GLUCOSE, FASTING 138 MG/DL (70-100); POTASSIUM SERUM 3.9 MEQ/L (3.5-5.1); SODIUM LEVEL 140 MEQ/L (136-145)
[2018-11-02 07:29] LABS: ATYPICAL LYMPH 1 % (0-5); LYMPHOCYTES 15 % (16-52); MONOCYTES 6 % (0-8); NEUTROPHILS 78 % (35-75)
[2018-11-02 07:30] LABS: PLATELET ESTIMATE NORMAL (NORMAL)
[2018-11-02] MEDS: GLIMEPIRIDE 2 MG TAB PO SCH (07:40)
[2018-11-02] MEDS: HumaLOG INSULIN (NovoLOG) PER UNIT SC SCH ×2 (07:41→12:39)
[2018-11-02] MEDS: BUDESONIDE 0.5 MG/2 ML INHALATION SUSPENSION INH SCH (07:51)
[2018-11-02] MEDS: FORMOTEROL FUMARATE 20 MCG/2 ML INHALATION SOLUTION (PERFOROMIST) INH SCH (07:51)
[2018-11-02] MEDS: [UNRECOGNIZED DRUG - OTHER] NEB SCH (07:53)
[2018-11-02 08:00] VITALS: BP 169/85
[2018-11-02 09:27] VITALS: BP 169/85
[2018-11-02] MEDS: OMEPRAZOLE 20 MG CAP PO SCH (09:27)
[2018-11-02] MEDS: BRIMONIDINE 0.1% OPHTH SOLN 5 ML OU SCH (09:27)
[2018-11-02] MEDS: NYSTATIN 500,000 U/5 ML SUSP UDC SS SCH (09:27)
[2018-11-02] MEDS: BACTRIM 160MG/800MG DS TAB PO SCH (09:27)
[2018-11-02] MEDS: predniSONE 20 MG TAB PO SCH (09:27)
[2018-11-02] MEDS: LACTOBACILLUS ACIDOPHILUS CAP (BACID) PO SCH (09:27)
[2018-11-02] MEDS: guaiFENesin ER 600 MG TAB PO SCH (09:27)
--- NOTE | 2018-11-02 11:10 | DS.PDOC ---
Discharge Summary General Date of Admission October 26, 2018 at 05:35 Date of Discharge 11/02/2018 Attending Physician: ABEBA BURT MD Discharge Summary PROCEDURES PERFORMED DURING STAY: None. ADMITTING DIAGNOSES: 1. Bronchiectasis. DISCHARGE DIAGNOSES: 1. Pancreatitis. COMPLICATIONS/CHIEF COMPLAINT: Acute Bronchitis & Bronchiolitis. HISTORY OF PRESENT ILLNESS: 67 year old male with PMH of COPD steroid and oxygen dependent, chronic hypoxic respiratory failure, Bronchiectasis on chronic antibiotic cycles of 2 week on and 2 weeks off { alternating between cefdinir/ ciprofloxacin/}. Bactrim prophylaxis on mon, wed, wed, Emphysema, Common variable immunodeficiency on IVIG , CAD s/p stents, PAD s/p femoral endarterectomy, Diabetes, glaucoma, hearing impairment, MYKEL on CPAP, hypertension, depression, Aortic valve replaced with bioprosthetic valve, chronic thoracic vertebral body compression fracture presented to the ED with increasing shortness of breath for 3 days, fever and chills for 1 days, increased cough and sputum production for 1 day. Patient was recently hospi talized here from 10/02 to 10/05 for exacerbation of his bronchiectasis and copd exacerbation. He was treated with zosyn then discharged home with cefdinir which he finished as instructed. He went for a cardiac cath 2 days ago and report was good did not get any more stents. His breathing was already a little worse than usual that day but it became worse the next day. He also developed chills and a fever at home. His breathing was very noisy and he had increased cough. Then overnight his breathing became so bad that he could not speak in full sentences and he could not lay down. So he was brought to the ED. In the ED on arrival he was very anxious as he needed a dose of ativan to calm him down. He also got duonebs and methyl prednisone. He was febrile to 102.3. He had a CT chest done. His ABG showed mild CO2 retention. He was admitted for Acute on chronic respiratory failure with hypercarbia and hypoxia, COPD exacerbation and exacerbation of bronchiectasis and acute bronchitis.. HOSPITAL COURSE: Patient on heliox every 6 hours Continue by mouth steroids Continue DuoNeb as per orders Improving very well Follow-up by pulmonary appreciated Possible discharge in all home antibiotic antibiotics today Discussed with Dr. Eagle as patient is clinically stable for discharge. Follow with Dr. Kline in 7-10 days Poor prognosis. DISCHARGE MEDICATIONS: Please see below. ALLERGIES: Please see below. PHYSICAL EXAMINATION ON DISCHARGE: VITAL SIGNS: Please see below. GENERAL: Normal HEENT: PERRLA NECK: Supple CARDIOVASCULAR EXAMINATION: S1, S2, regular RESPIRATORY EXAMINATION: Decreased breath sounds but no wheezing ABDOMINAL EXAMINATION: Benign EXTREMITIES: No clubbing, cyanosis SKIN: Normal, normal NEUROLOGICAL EXAMINATION: Normal PSYCHIATRIC EXAMINATION: Normal LABORATORY DATA: Please see below. IMAGING: As per EMR PROGNOSIS: Poor ACTIVITY: As tolerated. DIET: As tolerated DISCHARGE PLAN: Follow with pulmonary in 7-10 days DISPOSITION: . DISCHARGE INSTRUCTIONS: 1. As above. ITEMS TO FOLLOWUP ON ON OUTPATIENT: 1. As above. DISCHARGE CONDITION: Stable. TIME SPENT ON DISCHARGE: 35 minutes. Vital Signs/I&Os Vital Signs Date Time Temp Pulse Resp B/P (MAP) Pulse Ox O2 Delivery O2 Flow Rate FiO2 11/02/18 09:27 72 169/85 11/02/18 08:00 97.9 24 98 3.0 10/28/18 23:32 Nasal Cannula 10/27/18 19:30 21 I&O- Last 24 Hours up to 6 AM 11/02/18 06:00 Intake Total 1600 ml Output Total 3600 ml Balance -2000 ml Laboratory Data Labs 24H Laboratory Tests 2 11/01/18 11:49: Bedside Glucose (Misc Panel) 316H 11/01/18 17:23: Bedside Glucose (Misc Panel) 278H 11/01/18 20:43: Bedside Glucose (Misc Panel) 440H 11/02/18 05:22: Immature Granulocyte % (Auto) , Nucleated Red Blood Cells % (auto) 0.5H, Neutrophils 78H, Lymphocytes (Manual) 15L, Monocytes (Manual) 6, Atypical Lymphocytes 1, Platelet Estimate NORMAL, Red Blood Cell Morphology NORMAL, Anion Gap 7L, Glomerular Filtration Rate > 60.0, Blood Urea Nitrogen 17, Creatinine 0.70, Sodium Level 140, Potassium Level 3.9, Chloride Level 101, Carbon Dioxide Level 32, Calcium Level 7.7L CBC/BMP Laboratory Tests 11/02/18 05:22 Red Blood Count 3.94 L, Mean Corpuscular Volume 93.7, Mean Corpuscular Hemoglobin 31.7, Mean Corpuscular Hemoglobin Concent 33.9, Red Cell Distribution Width 12.7, Calcium Level 7.7 L FSBS Laboratory Tests Test 11/01/18 11:49 11/01/18 17:23 11/01/18 20:43 Range/Units Bedside Glucose (Misc Panel) 316 278 440 80-115 MG/DL Microbiology Microbiology 10/26/18 Blood Culture - Final, Complete NO GROWTH AFTER 5 DAYS 10/26/18 Blood Culture - Final, Complete NO GROWTH AFTER 5 DAYS 10/26/18 Gram Stain - Final, Complete 10/26/18 Sputum Culture - Final, Complete Serratia Marcescens 10/26/18 Respiratory Virus Panel (PCR) ([facility]) - Final, Complete Parainfluenza 3 (Piv3) Discharge Medications Scheduled Albuterol Sulf (Albuterol Sulfate) 2.5 Mg/3 Ml Nebu, 2.5 MG INH QID, (Reported) Ascorbic Acid (Ascorbic Acid) 500 Mg Tablet, 1,000 MG PO DAILY, (Reported) Brimonidine Tartrate (Alphagan P) 0.1% 5ML Drops, 1 DROP OU BID, (Reported) USES MORNING/DINNERTIME Budesonide (Pulmicort) 0.5 Mg/2 Ml Mely, 0.5 MG INH BID, (Reported) USED WITH PERFOROMIST, USES 30MIN AFTER ALBUTEROL/IPRATROPIUM NEB Calcium Citrate/Vitamin D3 (Calcium Citrate-Vit D3 Caplet) 1 Tab Tab, 1 TAB PO BID, (Reported) Cefdinir (Cefdinir) 300 Mg Cap, 300 MG PO ASDIRECTED, (Reported) TAKES BID FOR 2 WEEKS, THEN OFF FOR 2 WEEKS, STARTED ON 09/30 AT HS Cholecalciferol (Vitamin D3) (Vitamin D3) 2,000 Unit Cap, 2,000 UNIT PO DAILY, (Reported) Ciprofloxacin HCl (Ciprofloxacin HCl) 500 Mg Tab, 500 MG PO ASDIRECTED, (Reported) TAKES BID FOR 2 WEEKS, THEN OFF FOR 2 WEEKS Citalopram Hydrobromide (Celexa) 20 Mg Tablet, 20 MG PO QHS, (Reported) Clopidogrel Bisulfate (Plavix) 75 Mg Tab, 75 MG PO QHS, (Reported) Diltiazem HCl (Diltiazem 24Hr ER) 240 Mg Cap, 240 MG PO DAILY, (Reported) Ferrous Sulfate (Ferrous Sulfate) 325 Mg Tab, 325 MG PO DAILY, (Reported) Folic Acid (Folic Acid) 1 Mg Tab, 1 MG PO DAILY, (Reported) Formoterol Fumarate (Perforomist) 20 Mcg/2 Ml Neb, 20 MCG INH BID, (Reported) USED WITH PULMICORT, USES 30MIN AFTER ALBUTEROL/IPRATROPIUM NEB Glimepiride (Glimepiride) 4 Mg Tab, 4 MG PO BID, (Reported) Glycopyrrolate/Neb.accessories ([place] Magnair 25 Mcg Refill) 25 Mcg/1 Ml Vial.neb, 25 MCG INH BID, (Reported) USES 30 MIN PRIOR TO ALBUTEROL/IPRATROPIUM NEB Guaifenesin (Mucinex) 1,200 Mg Tab.er.12h, 1,200 MG PO BID, (Reported) Ibandronate Sodium (Boniva) 150 Mg Tablet, 150 MG PO QMONTH, (Reported) TAKES ON 10TH OF EACH MONTH Immun Glob G(IgG)/Pro/Iga 0-50 (Hizentra 10 Gram/50 ml Vial) 10 Gm/50 Ml Inj, 12 GM IV QWEEK, (Reported) SATURDAYS Ipratropium [place] (Ipratropium [place]) 0.5 Mg/2.5 Ml Soln, 0.5 MG INH TID, (Reported) MIXES WITH ALBUTEROL, USES 30 MIN AFTER LONHALA NEB L.acidoph/L.bulg/B.bif/S.therm (Bacid Caplet) 1 Each Tablet, 1 TAB PO DAILY, (Reported) Metformin HCl (Metformin HCl) 500 Mg Tab, 500 MG PO BID, (Reported) Montelukast Sodium (Singulair) 10 Mg Tab, 10 MG PO QHS, (Reported) Omeprazole (Omeprazole) 40 Mg Cap, 40 MG PO DAILY, (Reported) Pitavastatin Calcium (Livalo) 2 Mg Tablet, 2 MG PO QHS, (Reported) Prednisone (Prednisone) 20 Mg Tab, 20 MG PO DAILY, (Reported) Ranitidine HCl (Ranitidine HCl) 300 Mg Tab, 1 TAB PO QHS, (Reported) Sulfamethoxazole/Trimethoprim (Bactrim Ds Tablet) 1 Tab Tab, 1 TAB PO 3XW, (Reported) TAKES ON WEDNESDAY, WEDNESDAY AND WEDNESDAY Travoprost (Travatan Z) 50 Drop/2.5 Ml Soln, 1 DROP OU QHS, (Reported) Vitamin B Complex (Vitamin B Complex) 1 Each Tablet, 1 TAB PO DAILY, (Reported) Scheduled PRN Clotrimazole (Clotrimazole) 10 Mg Troc, 10 MG MT Q2H PRN for THRUSH, (Reported) Metaxalone (Metaxalone) 800 Mg Tablet, 800 MG PO TID PRN for MUSCLE SPASMS, (Reported) Nitroglycerin (Nitrostat) 0.4 Mg Subl, 0.4 MG SL NITRO PRN for CHEST PAIN, (Reported) Nystatin (Nystatin Oral Susp) 5 Ml Susp, 4 ML PO QID PRN for THRUSH, (Reported) Allergies Coded Allergies: aspirin (Verified Allergy, Mild, RECTAL BLEEDING, 10/26/18) levofloxacin (Verified Allergy, Mild, MUSCLE CRAMPING, 10/26/18) quinidine (Verified Allergy, Mild, HIVES, 10/26/18) fexofenadine (Verified Allergy, Unknown, anaphylaxis, 10/26/18) furosemide (Verified Allergy, Unknown, dizziness, 10/26/18) metoprolol (Verified Allergy, Unknown, d/t lung condition, 10/26/18) pravastatin (Verified Allergy, Unknown, 10/26/18) ABEBA BURT MD November 02, 2018 11:10
== END 2018-11-02 14:15 | disposition home or self-care (01) | DRG 189 ==
LOC: M ED 02:39 → M ED INP 05:35 → M PCU 13:11
PROVIDERS: ADMIT Internal Medicine Nephrology; ATTEND Internal Medicine
DX: J96.21 Acute and chronic respiratory failure with hypoxia (principal); J44.1 Chronic obstructive pulmonary disease with (acute) exacerbation; D83.9 Common variable immunodeficiency, unspecified; B37.0 Candidal stomatitis; J44.0 Chronic obstructive pulmonary disease with (acute) lower respiratory infection; J96.22 Acute and chronic respiratory failure with hypercapnia; G47.33 Obstructive sleep apnea (adult) (pediatric); F41.9 Anxiety disorder, unspecified; I10 Essential (primary) hypertension; E78.5 Hyperlipidemia, unspecified; Z66 Do not resuscitate; R19.7 Diarrhea, unspecified; K21.9 Gastro-esophageal reflux disease without esophagitis; E09.9 Drug or chemical induced diabetes mellitus without complications; B34.8 Other viral infections of unspecified site; I25.10 Atherosclerotic heart disease of native coronary artery without angina pectoris; H40.9 Unspecified glaucoma; T38.0X5D Adverse effect of glucocorticoids and synthetic analogues, subsequent encounter; Z95.5 Presence of coronary angioplasty implant and graft; Z99.81 Dependence on supplemental oxygen; Z79.52 Long term (current) use of systemic steroids; Z79.84 Long term (current) use of oral hypoglycemic drugs; Z79.899 Other long term (current) drug therapy; Z88.6 Allergy status to analgesic agent; Z88.1 Allergy status to other antibiotic agents; Z88.8 Allergy status to other drugs, medicaments and biological substances; Z79.2 Long term (current) use of antibiotics

== ENCOUNTER → 2018-11-24 | Outpatient (CLI) | payer MEDICARE, OTHER ==
--- NOTE | 2018-11-24 11:11 | REP ---
Bilateral lower extremity arterial Doppler ultrasound: History: Intermittent claudication bilaterally. Atherosclerosis. Findings: The ankle brachial index on the right is normal at 1.0. Left ZEB is reduced at 0.6. A patent stent is seen in the distal superficial femoral artery on the right. Mild multifocal plaquing is seen in the right. Moderate to severe plaquing is noted in the left popliteal fossa. Collateral vessels are seen adjacent to the distal femoral artery and popliteal artery. Significant stenosis is seen in the popliteal artery on the left. Monophasic wave form distal to this. Arterial Doppler velocity chart right lower extremity: CF A 111 cm/S Profunda 52 Proximal SFA 111 Mid SFA 104 Distal SFA stent 66 Popliteal 45 Proximal AT A 68 Tibioperoneal trunk 51 Proximal BELLOWS TESTER 62 Distal BELLOWS TESTER 66 Proximal AT A 52 Arterial Doppler velocity chart left lower extremity: CF A 62 cm/S Profunda 52 Proximal SFA 76 Mid SFA 74 Distal SFA 82 Popliteal 9.8/111 Proximal AT A not seen Tibioperoneal trunk 13 Proximal BELLOWS TESTER 28 Distal BELLOWS TESTER 16 Distal AT A 17 Electronically Signed by Arnie Donaldson MD 11/24/2018 11:02 A
== END ==
LOC: M RAD 08:53
PROVIDERS: ATTEND Surgery Vascular Surgery
DX: I70.213 Atherosclerosis of native arteries of extremities with intermittent claudication, bilateral legs (principal)

== ENCOUNTER → 2018-12-06 | Outpatient (CLI) | payer MEDICARE, OTHER ==
[~2018-12-06] MED LIST changes: -TUDO1AER2 INH; +TUDO1AER3 INH
--- NOTE | 2018-12-06 11:38 | REP ---
Clinical: Contusion. Technique: Internal rotation, external rotation, and Y view of the left shoulder. Findings: Age-related osteopenia with mild degenerative changes including cortical irregularity and subtle spurring at the acromioclavicular joint noted. No acute fracture or dislocation. No periarticular calcifications or loose bodies identified. Surrounding soft tissues are normal. Impression: Generalized age-related changes. No acute fracture or dislocation. Electronically Signed by Gilberto Hudson MD 12/06/2018 11:29 A
--- NOTE | 2018-12-06 11:39 | REP ---
Clinical: Contusion. Technique: AP and lateral views of the left humerus. Findings: Age-related degenerative changes at the shoulder and elbow joint noted. No acute fracture or dislocation. Surrounding soft tissues are unremarkable. Impression: No acute fracture or dislocation. Electronically Signed by Gilberto Hudson MD 12/06/2018 11:30 A
--- NOTE | 2018-12-06 11:49 | REP ---
REASON: Contusion. COMPARISON: None. FINDINGS: No acute fracture or destructive osseous lesion. Electronically Signed by Cornelius Andrade DO 12/06/2018 04:08 P
== END ==
LOC: M WUC 10:53
PROVIDERS: ATTEND Physician Assistant
DX: S40.022A Contusion of left upper arm, initial encounter (principal); S40.012A Contusion of left shoulder, initial encounter; M19.012 Primary osteoarthritis, left shoulder; M85.812 Other specified disorders of bone density and structure, left shoulder; X58.XXXA Exposure to other specified factors, initial encounter; Y92.9 Unspecified place or not applicable

== ENCOUNTER → 2019-01-28 | Outpatient (CLI) | payer MEDICARE, OTHER ==
--- NOTE | 2019-01-28 15:11 | REP ---
Left shoulder MRI: There are no comparison studies. The study is performed with T1, T2 and gradient echo data sets in sagittal, axial coronal projections. There is acromioclavicular osteoarthritis. There is fluid in the acromioclavicular joint. This could be physiologic or inflammatory. There is a small volume of fluid in the subacromial bursa which could be physiologic or inflammatory. There are severe tendinosis and multiple partial-thickness tears of the supraspinatus and infraspinatus tendons. There is no tendon retraction. There is tendinosis of the subscapularis tendon without retraction. There is a ring-shaped T2 signal in the superior posterior humeral head compatible with a nondisplaced Hill-Sachs fracture. There is questionably a tear of the superior glenoid labrum. Impression: Probable nondisplaced Hill-Sachs fracture. Severe tendinosis of the supraspinatus and infraspinatus and subscapularis tendons without tendon retraction. Probable superior glenoid labral tear. The inferior glenoid labrum is obscured by motion artifact. The remainder of the study is limited because of motion artifact. Electronically Signed by Choco Griffin MD 01/28/2019 03:03 P
== END ==
LOC: M RAD 10:00
PROVIDERS: ATTEND Orthopaedic Surgery
DX: S46.012A Strain of muscle(s) and tendon(s) of the rotator cuff of left shoulder, initial encounter (principal); X58.XXXA Exposure to other specified factors, initial encounter; Y92.89 Other specified places as the place of occurrence of the external cause

== ENCOUNTER 2019-05-19 15:00 | Inpatient (IN) | payer MEDICARE, OTHER ==
[~2019-05-19] VITALS: Ht 172.7 cm; Wt 70.6 kg
[~2019-05-19 15:00] MED LIST changes: -AZIT500T2 PO; +AZIT500T5 PO; -GLIM2TAB PO; +GLIM2TAB2 PO; -GLIM4TAB PO; +GLIM4TAB3 PO; -OMEP40CA2 PO; +OMEP40CA97 PO; +RANI-397 PO; -RANI1TAB6 PO; +SENN-53 PO; -SENN1TAB40 PO
[2019-05-19] MEDS ORDERED: cefTRIAXone SOD 2 GM in D5W MINI-BAG PLUS 50 ML IV ONE (15:45)
[2019-05-19] MEDS ORDERED: methylPREDNISolone INJ 125 MG/2 ML VIAL (J2930) IV ONE (15:45)
[2019-05-19 15:57] LABS: BASO % 0.2 % (0.0-1.0); EOS % 0.1 % (0.0-3.0); HEMATOCRIT 40.7 % (42.0-52.0); HEMOGLOBIN 13.9 g/dl (13.5-17.5); LYMPH # 1.5 10^3/uL (1.5-5.0); LYMPH % 7.9 % (24.0-44.0); MEAN CORPUSCULAR HEMOGLOBIN 32.3 pg (27.0-33.0); MEAN CORPUSCULAR HGB CONC 34.2 g/dl (32.0-36.5); MEAN CORPUSCULAR VOLUME 94.4 fl (80.0-96.0); MONO # 0.8 10^3/uL (0.0-0.8); MONO % 4.5 % (0.0-5.0); NEUTROPHILS # 15.6 10^3/uL (1.5-8.5); NEUTROPHILS % 85.4 % (36.0-66.0); PLATELET COUNT, AUTOMATED 477 10^3/uL (150-450); RED BLOOD COUNT 4.31 10^6/uL (4.30-6.10); WHITE BLOOD COUNT 18.2 10^3/uL (4.0-10.0)
[2019-05-19] MEDS: IPRATROPIUM 0.5MG/ALBUTEROL 2.5MG INH SOL UD 3ML (DUONEB)(J7620) NEB PRN ×3 (15:58→17:12)
[2019-05-19] MEDS ORDERED: [UNRECOGNIZED DRUG - CODE] SC (16:08)
[2019-05-19] MEDS ORDERED: TUDO1AER3 INH (16:08)
[2019-05-19 16:13] LABS: ABG BASE EXCESS 5.2 (-2.0-2.0); ABG HCO3 28.7 MEQ/L (22.0-26.0); ABG O2 SATURATION 90.8 % (95.0-99.0); ABG PARTIAL PRESSURE CO2 38.4 mmHg (35.0-45.0); ABG PARTIAL PRESSURE O2 54.4 mmHg (75.0-100.0); ABG TOTAL CO2 29.9 MEQ/L (23.0-31.0); ABG pH (ARTERIAL) 7.492 UNITS (7.350-7.450)
[2019-05-19 16:22] LABS: BLOOD UREA NITROGEN 16 MG/DL (7-18); CALCIUM LEVEL 9.8 MG/DL (8.8-10.2); CARBON DIOXIDE LEVEL 30 MEQ/L (21-32); CHLORIDE LEVEL 93 MEQ/L (98-107); CREATININE FOR GFR 0.93 MG/DL (0.70-1.30); GLOMERULAR FILTRATION RATE > 60.0 (>49); GLUCOSE, FASTING 60 MG/DL (70-100); POTASSIUM SERUM 4.3 MEQ/L (3.5-5.1); SODIUM LEVEL 133 MEQ/L (136-145)
[2019-05-19] MEDS ORDERED: MOM 30ML SUSPENSION UDC PO PRN (17:30)
[2019-05-19] MEDS ORDERED: IPRATROPIUM 0.5MG/ALBUTEROL 2.5MG INH SOL UD 3ML (DUONEB)(J7620) NEB PRN (17:30)
[2019-05-19] MEDS ORDERED: ACETAMINOPHEN TAB 650MG DOSE (2X325MG) PO PRN (17:30)
[2019-05-19] MEDS ORDERED: MAALOX 30 ML SUSP *UDC PO PRN (17:30)
--- NOTE | 2019-05-19 17:48 | HPEPDOC ---
General Date of Admission 05/19/19 Date of Service: May 19, 2019 Chief Complaint The patient is a 68-year-old male admitted with a reason for visit of SOB. Source: Patient, Family Exam Limitations: No limitations Timing/Duration: Other Severity: Moderate (5 days) Associated Symptoms: Cough, Shortness of breath History of Present Illness This is 68 years old white male with past medical history of COPD who is on steroids and oxygen dependent, chronic hypoxic respiratory failure, bron chiectasis on chronic antibiotics cycles 2 weeks on and 2 weeks off with Ceftin R and ciprofloxacin. 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 He is being admitted with strep pneumonia infection and chronic bronchiectasis. Home Medications Scheduled Aclidinium [place] (Tudorza Pressair) 400 Mcg Aer.pow.ba, 1 PUFF INH BID, (Reported) Albuterol Sulf (Albuterol Sulfate) 2.5 Mg/3 Ml Nebu, 2.5 MG INH QID, (Reported) Ascorbic Acid (Ascorbic Acid) 500 Mg Tablet, 1,000 MG PO DAILY, (Reported) Brimonidine Tartrate (Alphagan P) 0.1% 5ML Drops, 1 DROP OU BID, (Reported) USES MORNING/DINNERTIME Budesonide (Pulmicort) 0.5 Mg/2 Ml Mely, 0.5 MG INH BID, (Reported) USED WITH PERFOROMIST, USES 30MIN AFTER ALBUTEROL/IPRATROPIUM NEB Calcium Citrate/Vitamin D3 (Calcium Citrate-Vit D3 Caplet) 1 Tab Tab, 1 TAB PO BID, (Reported) Cholecalciferol (Vitamin D3) (Vitamin D3) 2,000 Unit Cap, 2,000 UNIT PO DAILY, (Reported) Ciprofloxacin HCl (Ciprofloxacin HCl) 500 Mg Tab, 500 MG PO ASDIRECTED, (Reported) TAKES BID FOR 2 WEEKS, THEN OFF FOR 2 WEEKS Citalopram Hydrobromide (Celexa) 20 Mg Tablet, 20 MG PO QHS, (Reported) Clopidogrel Bisulfate (Plavix) 75 Mg Tab, 75 MG PO QHS, (Reported) Diltiazem HCl (Diltiazem 24Hr ER) 240 Mg Cap, 240 MG PO DAILY, (Reported) Ferrous Sulfate (Ferrous Sulfate) 325 Mg Tab, 325 MG PO DAILY, (Reported) Folic Acid (Folic Acid) 1 Mg Tab, 1 MG PO DAILY, (Reported) Formoterol Fumarate (Perforomist) 20 Mcg/2 Ml Neb, 20 MCG INH BID, (Reported) USED WITH PULMICORT, USES 30MIN AFTER ALBUTEROL/IPRATROPIUM NEB Glimepiride (Glimepiride) 4 Mg Tab, 4 MG PO BID, (Reported) Glycopyrrolate/Neb.accessories (Lonhala Magnair 25 Mcg Refill) 25 Mcg/1 Ml Vial.neb, 25 MCG INH BID, (Reported) USES 30 MIN PRIOR TO ALBUTEROL/IPRATROPIUM NEB Guaifenesin (Mucinex) 1,200 Mg Tab.er.12h, 1,200 MG PO BID, (Reported) Ibandronate Sodium (Boniva) 150 Mg Tablet, 150 MG PO QMONTH, (Reported) TAKES ON 10TH OF EACH MONTH Immun Glob G(IgG)/Pro/Iga 0-50 (Hizentra 1 Gram/5 ml Vial) 1 Gm/5 Ml Vial, 14 MG SC QWEEK, (Reported) Ipratropium [place] (Ipratropium [place]) 0.5 Mg/2.5 Ml Soln, 0.5 MG INH TID, (Reported) MIXES WITH ALBUTEROL, USES 30 MIN AFTER LONHALA NEB L.acidoph/L.bulg/B.bif/S.therm (Bacid Caplet) 1 Each Tablet, 1 TAB PO DAILY, (Reported) Metformin HCl (Metformin HCl) 500 Mg Tab, 500 MG PO BID, (Reported) Montelukast Sodium (Singulair) 10 Mg Tab, 10 MG PO QHS, (Reported) Omeprazole (Omeprazole) 40 Mg Cap, 40 MG PO DAILY, (Reported) Pitavastatin Calcium (Livalo) 2 Mg Tablet, 2 MG PO QHS, (Reported) Prednisone (Prednisone) 20 Mg Tab, 12 MG PO DAILY, (Reported) Travoprost (Travatan Z) 50 Drop/2.5 Ml Soln, 1 DROP OU QHS, (Reported) Vitamin B Complex (Vitamin B Complex) 1 Each Tablet, 1 TAB PO DAILY, (Reported) Scheduled PRN Clotrimazole (Clotrimazole) 10 Mg Troc, 10 MG MT Q2H PRN for THRUSH, (Reported) Nitroglycerin (Nitrostat) 0.4 Mg Subl, 0.4 MG SL NITRO PRN for CHEST PAIN, (Reported) Nystatin (Nystatin Oral Susp) 5 Ml Susp, 4 ML PO QID PRN for THRUSH, (Reported) Allergies Coded Allergies: aspirin (Verified Allergy, Mild, RECTAL BLEEDING, 10/26/18) levofloxacin (Verified Allergy, Mild, MUSCLE CRAMPING, 10/26/18) quinidine (Verified Allergy, Mild, HIVES, 10/26/18) fexofenadine (Verified Allergy, Unknown, anaphylaxis, 10/26/18) furosemide (Verified Allergy, Unknown, dizziness, 10/26/18) metoprolol (Verified Allergy, Unknown, d/t lung condition, 10/26/18) pravastatin (Verified Allergy, Unknown, 10/26/18) Past Medical History Medical History COPD who is on steroids and oxygen dependent, chronic hypoxic respiratory failure, bronchiectasis on chronic antibiotics cycles 2 weeks on and 2 weeks off with Ceftin R and ciprofloxacin. Also on Bactrim prophylaxis on Wednesday, Wednesday, Wednesday, emphysema, common variable immunodeficiency on IVIG, CAD status post stents, PAD, status post femoral endarterectomy, diabetes mellitus, glaucoma, hearing impairment, MYKEL on CPAP, hypertension, depression, aortic wall replacement with bioprosthetic wall, chronic thoracic vertebral compression fracture Surgical History Invasive aortic wall replacement with bioprosthetic wall, cardiac stents 13, eyelid procedure, time biopsy, left femoral endarterectomy with patch repair and a stent in right leg Family History Father with CAD Social History * Smoker: Denies Alcohol: Denies Drugs: denies A-FIB/CHADSVASC A-FIB History Current/History of A-Fib/PAF?: No Review of Systems Constitutional: Reports: Chills, Fever Eyes: Denies: Pain, Vision change, Conjunctivae inflammation, Eyelid inflammation, Redness, Other ENT: Denies: Head Aches, Ear Pain, Dysphagia, Sinus Congestion, Post Nasal Drip, Sore Throat, Epistaxis, Other Symptoms Skin: Denies: Rash, Lesions, Jaundice, Bruising, Itching, Dry, Breakdown, Nail Changes, Other Pulmonary: Reports: Dyspnea Cardiovascular: Denies: Chest Pain, Palpitations, Orthopnea, Paroxysmal Noc. Dyspnea, Edema, Lt Headedness, Other Symptoms Gastrointestinal: Denies: Nausea, Vomiting, Abdominal Pain, Diarrhea, Constipation, Melena, Hematochezia, Other Symptoms Endocrine: Denies: Polydipsia, Polyphagia, Polyuria, Heat Intolerance, Cold Intolerance, Other Endocrine Sx Musculoskeletal: Denies: Neck Pain, Back Pain, Shoulder Pain, Arm Pain, Hand Pain, Leg Pain, Foot Pain, Joint Pain, Muscle Pain, Spasms, Other Symptoms Neurological: Denies: Weakness, Numbness, Incoordination, Change in speech, Confusion, Seizures, Other Symptoms Psych: Denies: Mood Normal, Anxiety, Depression, Memory Issues, Thoughts of Self Harm, Anger, Thoughts of Harming Other, Other Psych Physical Examination General Exam: Positive: Alert, Cooperative Eye Exam: Positive: PERRLA, Conjunctiva & lids normal ENT Exam: Positive: Atraumatic, Mucous membr. moist/pink Neck Exam: Positive: Supple Chest Exam: Positive: Wheezing Heart Exam: Positive: Rate Normal, Normal S1 Abdomen Exam: Positive: Normal bowel sounds, Soft, Tenderness Extremity Exam: Positive: Normal pulses Skin Exam: Positive: Nl turgor and temperature Neuro Exam: Positive: Strength at 5/5 X4 ext, Normal Tone, Sensation Intact Psych Exam: Positive: Mental status NL, Mood NL, Oriented x 3 Vital Signs Vital Signs Date Time Temp Pulse Resp B/P (MAP) Pulse Ox O2 Delivery O2 Flow Rate FiO2 05/19/19 16:15 98.0 93 18 139/72 (94) 93 05/19/19 16:09 Nasal Cannula 3.0 Laboratory Data Labs 24H Laboratory Tests 2 05/19/19 15:45: Immature Granulocyte % (Auto) 1.9, Neutrophils (%) (Auto) 85.4H, Lymphocytes (%) (Auto) 7.9L, Monocytes (%) (Auto) 4.5, Eosinophils (%) (Auto) 0.1, Basophils (%) (Auto) 0.2, Neutrophils # (Auto) 15.6H, Lymphocytes # (Auto) 1.5, Monocytes # (Auto) 0.8, Eosinophils # (Auto) 0.0, Basophils # (Auto) 0.0, Nucleated Red Blood Cells % (auto) 0.0 05/19/19 15:46: Anion Gap 10, Glomerular Filtration Rate > 60.0, Lactic Acid Level 2.8*H, Calcium Level 9.8 05/19/19 15:59: Blood Gas Bicarbonate Standard 29.0H, Arterial Blood pH 7.492H, Arterial Blood Partial Pressure CO2 38.4, Arterial Blood Partial Pressure O2 54.4L, Arterial Blood Total CO2 29.9, Arterial Blood HCO3 28.7H, Arterial Blood Base Excess 5.2H, Arterial Blood Oxygen Saturation 90.8L CBC/BMP Laboratory Tests 05/19/19 15:45 05/19/19 15:46 Microbiology Microbiology 05/19/19 Blood Culture, Received Pending 05/19/19 Blood Culture, Received Pending Problems (1) Streptococcal pneumonia Status: Acute Problem Text: This is 68 years old white male with past medical history of COPD who is on steroids and oxygen dependent, chronic hypoxic respiratory failure, bronchiectasis on chronic antibiotics cycles 2 weeks on and 2 weeks off with Ceftin R and ciprofloxacin. 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 He is being admitted with strep pneumonia infection and chronic bronchiectasis. Patient. WBC count is 18.2, hemoglobin and hematocrit within normal range. Electrolytes are within normal range. His BUN of 16, creatinine 0.93. Lactic acid is 2.8 Chest x-ray is consistent with: Admit patient to Medr floor with telemetry IV fluid normal saline at 70 mL per hour pt received 1 dose of Rocephin in ED for strep pneumoniae and will continue the same Also, will start Solu-Medrol 60 mg IV every 8 hours Oxygen supplemen DuoNeb every 6 hours and every 2 hours when necessary Pulmonary consult was called from ED awaiting the feedback DVT prophylaxis with Lovenox Regular diet Activity as tolerated Other as per pulmonary recommendation (2) Bronchiectasis Status: Acute Problem Text: O2 support Continue home meds (3) Acute on chronic respiratory failure with hypoxia Status: Acute Problem Text: Patient's ABG shows pH of 7.49, PCO2 38, PO2 54.4, and percentage 90.8% Acute on chronic respiratory failure, most likely secondary to acute infection and chronic bronchiectasis Management as per bronchiectasis and acute pneumonia (4) PVD (peripheral vascular disease) Status: Acute Problem Text: Continue home meds (5) CAD (coronary artery disease) Status: Chronic Problem Text: stable Continue home meds (6) Hypogammaglobulinemia Status: Chronic Problem Text: Continue home meds and prophylactic antibiotics (7) Diabetes mellitus Status: Chronic Problem Text: Requesting gastric blood sugar every before meals and at bedtime with coverage Home meds Plan / VTE VTE Prophylaxis Ordered?: Yes ABEBA BURT MD May 19, 2019 17:48
[2019-05-19] MEDS ORDERED: VITA100066 PO (18:09)
[2019-05-19] MEDS ORDERED: PRED20TA PO (18:09)
[2019-05-19] MEDS ORDERED: FAMO40TA3 PO (18:09)
[2019-05-19] MEDS ORDERED: TRIPOIN11 TOP (18:12)
[2019-05-19] MEDS ORDERED: MUPI2OI TOP (18:12)
[2019-05-19] MEDS ORDERED: BACT800T5 PO ×2 (18:12)
[2019-05-19] MEDS ORDERED: CEFD300CAP PO (18:15)
[2019-05-19] MEDS ORDERED: NITROGLYCERIN 0.4 MG SUBL TABLET SL PRN (18:30)
[2019-05-19] MEDS ORDERED: NEOSPORIN TOP OINT 15GM TOP PRN (18:30)
[2019-05-19] MEDS ORDERED: NYSTATIN 500,000 U/5 ML SUSP UDC PO PRN (18:30)
[2019-05-19] MEDS ORDERED: GLUCOSE 4 GM CHEW TABLET PO PRN (18:30)
[2019-05-19] MEDS ORDERED: CLOTRIMAZOLE 10 MG TROCHE MT PRN (18:30)
[2019-05-19] MEDS ORDERED: GLUCAGON FOR INJ 1 MG VIAL (J1610) SC PRN (18:30)
[2019-05-19] MEDS ORDERED: DEXTROSE 50% 50 ML SYRINGE IV PRN (18:30)
[2019-05-19] MEDS: FORMOTEROL FUMARATE 20 MCG/2 ML INHALATION SOLUTION (PERFOROMIST) INH SCH (20:00)
[2019-05-19] MEDS: IPRATROPIUM 0.5MG/ALBUTEROL 2.5MG INH SOL UD 3ML (DUONEB)(J7620) NEB SCH (20:00)
[2019-05-19] MEDS: BUDESONIDE 0.5 MG/2 ML INHALATION SUSPENSION INH SCH (20:00)
--- NOTE | 2019-05-19 20:20 | ECGEPIP ---
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
[2019-05-19] MEDS ORDERED: SODIUM CHLORIDE 0.9% 1000ML IV STA (21:36)
[2019-05-19 22:00] VITALS: BP 159/76
[2019-05-19] MEDS: BRIMONIDINE 0.1% OPHTH SOLN 5 ML OU SCH (22:00)
[2019-05-19] MEDS: MONTELUKAST 10 MG TAB PO SCH (22:00)
[2019-05-19] MEDS: guaiFENesin ER 600 MG TAB PO SCH (22:00)
[2019-05-19] MEDS ORDERED: NS 500 ML IV ONE (22:00)
[2019-05-19] MEDS: DOCUSATE SODIUM 100 MG CAP PO SCH (22:00)
[2019-05-19] MEDS: LATANOPROST 0.005% OPHTH SOLN 2.5 ML OU SCH (22:00)
[2019-05-19] MEDS: FAMOTIDINE 20 MG TAB PO SCH (22:00)
[2019-05-19] MEDS: CitaloPRAM (CeleXA) 20 MG TAB PO SCH (22:00)
[2019-05-19] MEDS: CLOPIDOGREL 75 MG TAB PO SCH (22:00)
[2019-05-19] MEDS: HumaLOG INSULIN (NovoLOG) PER UNIT SC SCH (22:01)
[2019-05-19] MEDS: NS 1,000 ML IV SCH (22:30)
[2019-05-19] MEDS: methylPREDNISolone INJ 125 MG/2 ML VIAL (J2930) IV SCH (23:53)
[2019-05-20] MEDS: IPRATROPIUM 0.5MG/ALBUTEROL 2.5MG INH SOL UD 3ML (DUONEB)(J7620) NEB SCH ×4 (02:36→19:27)
[2019-05-20 05:55] LABS: HEMATOCRIT 38.6 % (42.0-52.0); MEAN CORPUSCULAR HEMOGLOBIN 32.3 pg (27.0-33.0); MEAN CORPUSCULAR HGB CONC 33.7 g/dl (32.0-36.5); MEAN CORPUSCULAR VOLUME 95.8 fl (80.0-96.0); PLATELET COUNT, AUTOMATED 464 10^3/uL (150-450); RED BLOOD COUNT 4.03 10^6/uL (4.30-6.10); WHITE BLOOD COUNT 10.2 10^3/uL (4.0-10.0)
[2019-05-20 06:28] LABS: ALBUMIN 3.1 GM/DL (3.2-5.2); ALT/SGPT 54 U/L (12-78); BILIRUBIN,TOTAL 0.8 MG/DL (0.2-1.0); BLOOD UREA NITROGEN 17 MG/DL (7-18); CARBON DIOXIDE LEVEL 28 MEQ/L (21-32); CHLORIDE LEVEL 94 MEQ/L (98-107); CREATININE FOR GFR 1.11 MG/DL (0.70-1.30); GLOMERULAR FILTRATION RATE > 60.0 (>49); GLUCOSE, FASTING 272 MG/DL (70-100); MAGNESIUM LEVEL 2.3 MG/DL (1.8-2.4); POTASSIUM SERUM 4.6 MEQ/L (3.5-5.1); SODIUM LEVEL 133 MEQ/L (136-145); TOTAL PROTEIN 7.1 GM/DL (6.4-8.2)
--- NOTE | 2019-05-20 07:38 | REP ---
HISTORY: Cough and dyspnea. COMPARISON: 10/26/2018 Since the last examination a patchy opacity has developed in the right lower lobe with right CP angle blunting. The lung rodriguez are hyperexpanded. The left lung is clear and stable. The heart is not enlarged. There is no change in the osseous structures. Note is again made of multiple mid thoracic vertebral body compression fractures of various stages. IMPRESSION: Right lower lobe patchy opacity with right CP angle blunting consistent with pneumonia and a small right pleural effusion. Electronically Signed by Cornelius Andrade DO 05/22/2019 01:17 P
[2019-05-20] MEDS: FORMOTEROL FUMARATE 20 MCG/2 ML INHALATION SOLUTION (PERFOROMIST) INH SCH ×2 (07:47→19:26)
[2019-05-20] MEDS: BUDESONIDE 0.5 MG/2 ML INHALATION SUSPENSION INH SCH ×2 (07:47→19:27)
[2019-05-20] MEDS ORDERED: metFORMIN (GLUCOPHAGE) 500 MG TAB PO SCH (08:00)
[2019-05-20] MEDS: BRIMONIDINE 0.1% OPHTH SOLN 5 ML OU SCH ×2 (08:51→17:25)
[2019-05-20] MEDS: FOLIC ACID 1 MG TAB PO SCH (08:52)
[2019-05-20] MEDS: GLIMEPIRIDE 2 MG TAB PO SCH (08:52)
[2019-05-20] MEDS: ASCORBIC ACID 500 MG TAB PO SCH (08:52)
[2019-05-20] MEDS: guaiFENesin ER 600 MG TAB PO SCH ×2 (08:52→21:15)
[2019-05-20] MEDS: DOCUSATE SODIUM 100 MG CAP PO SCH ×2 (08:53→21:15)
[2019-05-20] MEDS: LACTOBACILLUS ACIDOPHILUS CAP (BACID) PO SCH (08:53)
[2019-05-20] MEDS: methylPREDNISolone INJ 125 MG/2 ML VIAL (J2930) IV SCH ×2 (08:53→17:23)
[2019-05-20] MEDS: NS 1,000 ML IV SCH ×2 (08:53→22:21)
[2019-05-20] MEDS: OMEPRAZOLE 20 MG CAP PO SCH (08:53)
[2019-05-20] MEDS: FERROUS SULFATE 325MG TAB PO SCH (08:53)
[2019-05-20] MEDS: ENOXAPARIN 40 MG/0.4 ML SYRINGE (J1650) SC SCH (08:53)
[2019-05-20] MEDS: VITAMIN D 1,000 INTERNATIONAL UNITS TABLET PO SCH (08:53)
[2019-05-20] MEDS: HumaLOG INSULIN (NovoLOG) PER UNIT SC SCH ×4 (08:54→21:19)
--- NOTE | 2019-05-20 11:58 | IPNPDOC ---
Subjective Date Seen The patient was seen on 05/20/19. Subjective Chief Complaint/HPI Patient is still not feeling better/still has shortness of breath General: Denies: ROS Unobtainable, Chills, Night Sweats, Fatigue, Malaise, Normal Appetite, Other Symptoms Constitutional: Denies: Chills, Fever, Malaise, Night Sweats, Weakness, Fatigue, Weight Loss, Lethargy, Other Skin: Denies: Rash, Lesions, Jaundice, Bruising, Itching, Dry, Breakdown, Nail Changes, Other Pulmonary: Reports: Dyspnea Cardiovascular: Denies: Chest Pain, Palpitations, Orthopnea, Paroxysmal Noc. Dyspnea, Edema, Lt Headedness, Other Symptoms Gastrointestinal: Denies: Nausea, Vomiting, Abdominal Pain, Diarrhea, Constipation, Melena, Hematochezia, Other Symptoms Musculoskeletal: Denies: Neck Pain, Back Pain, Shoulder Pain, Arm Pain, Hand Pain, Leg Pain, Foot Pain, Joint Pain, Muscle Pain, Spasms, Other Symptoms Neurological: Denies: Weakness, Numbness, Incoordination, Change in speech, Confusion, Seizures, Other Symptoms Objective Physical Examination General Exam: Positive: Alert, Cooperative Neck Exam: Positive: Supple Chest Exam: Positive: Wheezing Heart Exam: Positive: Rate Normal, Normal S1 Abdomen Exam: Positive: Normal bowel sounds, Soft, Tenderness Extremity Exam: Positive: Normal pulses Skin Exam: Positive: Nl turgor and temperature Neuro Exam: Positive: Strength at 5/5 X4 ext, Normal Tone, Sensation Intact Psych Exam: Positive: Mental status NL, Mood NL, Oriented x 3 Assessment /Plan Problems (1) Streptococcal pneumonia Status: Acute Problem Text: This is 68 years old white male with past medical history of COPD who is on steroids and oxygen dependent, chronic hypoxic respiratory failure, bronchiectasis on chronic antibiotics cycles 2 weeks on and 2 weeks off with Ceftin R and ciprofloxacin. 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 He is being admitted with strep pneumonia infection and chronic bronchiectasis. Patient. WBC count is 18.2, hemoglobin and hematocrit within normal range. Electrolytes are within normal range. His BUN of 16, creatinine 0.93. Lactic acid is 2.8 Chest x-ray is consistent with: [facility] with [facility] IV fluid normal saline at 70 mL per hour pt received 1 dose of Rocephin in ED for strep pneumoniae and will continue the same Also, will start Solu-Medrol 60 mg IV every 8 hours Oxygen supplemen DuoNeb every 6 hours and every 2 hours when necessary Pulmonary consult was called from ED awaiting the feedback DVT prophylaxis with Lovenox Regular diet Activity as tolerated Other as per pulmonary recommendation (2) Acute respiratory failure with hypoxia Status: Acute Problem Text: Patient's ABG shows pH of 7.49, PCO2 38, PO2 54.4, and percentage 90.8% Acute on chronic respiratory failure, most likely secondary to acute infection and chronic bronchiectasis Continue IV antibiotics Pulmonary consult has been requested Will appreciated. Recommendations from pulmonary to manage this patient (3) Bronchiectasis Status: Acute Problem Text: O2 support Discussed with Dr. Mendoza. Patient will be seen today by her Further changes in management as per pulmonary Continue home meds (4) Diabetes mellitus Status: Chronic Problem Text: Fingerstick blood sugar acute CHF with coverage Plan/VTE VTE Prophylaxis Ordered?: Yes VS, I&O, 24H, Fishbone Vital Signs/I&O Vital Signs Date Time Temp Pulse Resp B/P (MAP) Pulse Ox O2 Delivery O2 Flow Rate FiO2 05/20/19 09:00 2.0 05/20/19 08:52 95 159/76 05/20/19 06:00 98.2 16 94 Nasal Cannula I&O- Last 24 Hours up to 6 AM 05/20/19 06:00 Intake Total 650 ml Output Total 400 ml Balance 250 ml Laboratory Data 24H LABS Laboratory Tests 2 05/19/19 15:45: Immature Granulocyte % (Auto) 1.9, Neutrophils (%) (Auto) 85.4H, Lymphocytes (%) (Auto) 7.9L, Monocytes (%) (Auto) 4.5, Eosinophils (%) (Auto) 0.1, Basophils (%) (Auto) 0.2, Neutrophils # (Auto) 15.6H, Lymphocytes # (Auto) 1.5, Monocytes # (Auto) 0.8, Eosinophils # (Auto) 0.0, Basophils # (Auto) 0.0, Nucleated Red Blood Cells % (auto) 0.0 05/19/19 15:46: Anion Gap 10, Glomerular Filtration Rate > 60.0, Lactic Acid Level 2.8*H, Calcium Level 9.8 05/19/19 15:59: Blood Gas Bicarbonate Standard 29.0H, Arterial Blood pH 7.492H, Arterial Blood Partial Pressure CO2 38.4, Arterial Blood Partial Pressure O2 54.4L, Arterial Blood Total CO2 29.9, Arterial Blood HCO3 28.7H, Arterial Blood Base Excess 5.2H, Arterial Blood Oxygen Saturation 90.8L 05/19/19 20:03: Lactic Acid Followup at 4 Hours 5.2*H 05/19/19 21:28: Bedside Glucose (Misc Panel) 328H 05/20/19 05:21: Nucleated Red Blood Cells % (auto) 0.0, Anion Gap 11, Glomerular Filtration Rate > 60.0, Calcium Level 9.0, Magnesium Level 2.3, Total Bilirubin 0.8, Aspartate Amino Transf (AST/SGOT) 25, Alanine Aminotransferase (ALT/SGPT) 54, Alkaline Phosphatase 68, Total Protein 7.1, Albumin 3.1L, Albumin/Globulin Ratio 0.78L 05/20/19 11:35: Bedside Glucose (Misc Panel) 249H CBC/BMP Laboratory Tests 05/19/19 15:45 05/19/19 15:46 05/20/19 05:21 Microbiology Microbiology 05/19/19 Blood Culture, Received Pending 05/19/19 Blood Culture, Received Pending ABEBA BURT MD May 20, 2019 11:58
[2019-05-20 14:00] VITALS: BP 156/82
[2019-05-20] MEDS ORDERED: cefTRIAXone SOD 1 GM in D5W MINI-BAG PLUS 50 ML IV SCH (16:00)
--- NOTE | 2019-05-20 17:57 | CR ---
DATE OF CONSULTATION: 05/20/2019 CHIEF COMPLAINT: Shortness breath and cough. HISTORY OF PRESENT ILLNESS: Mr. Velasquez is a 68-year-old male with a past medical history of chronic obstructive pulmonary disease (COPD) with chronic hypoxemic respiratory failure, on nasal cannula oxygen supplementation, bronchiectasis, on chronic antibiotics, common variable immunodeficiency, on IVIG, coronary artery disease (CAD) status post stent, history of aortic valve replacement, obstructive sleep apnea (MYKEL), on continuous positive airway pressure (CPAP), gastroesophageal reflux disease (GERD), hyperlipidemia, who presented with complaints of increased shortness of breath and cough. The patient follows with Dr. Davis as well as Dr. Kline for pulmonary. He gets IVIG infusions through infectious disease (ID), and he also is on chronic antibiotics with cycles of 2 weeks of Ceftin and alternating with ciprofloxacin as well as with Bactrim for prophylaxis on Wednesday, Wednesday, Wednesday. He had presented to his PMD a few days ago with increased shortness breath and cough and was told to take his Bactrim daily. He also had a sputum culture done during his visit as well. The patient reports his symptoms did not improve with the Bactrim, and he was told that his sputum culture was positive for Streptococcus pneumoniae, and so he presented to the emergency department (ED) for further evaluation. The patient is also on chronic prednisone. He has been able to be weaned down, he says, to 11-12 mg daily from his previous 20 mg. He does have a history of exacerbation when he is being weaned from his prednisone. The patient denies any chest pain. Has not had any fevers or chills. Today he continues to report significant shortness of breath and difficulty getting air in. He also continues to have a cough, which is increased, but has not been productive of sputum. He denies any increased lower extremity edema or orthopnea. PAST MEDICAL AND SURGICAL HISTORY: 1. COPD with history of bronchiectasis, on chronic steroids. 2. Chronic hypoxemic respiratory failure, on nasal cannula oxygen supplementation. 3. Common variable immune deficiency, on IVIG. 4. CAD status post stents. 5. Peripheral arterial disease status post femoral endarterectomy. 6. Diabetes. 7. Glaucoma. 8. Hearing impairment. 9. MYKEL on CPAP. 10. Hypertension. 11. Aortic valve replacement. 12. Chronic thoracic vertebral compression fracture. 13. GERD. 14. Hyperlipidemia. 15. History of pneumothorax. HOME MEDICATIONS: Ascorbic acid, brimonidine drops, Pulmicort nebulizers, calcium citrate and vitamin D3, ciprofloxacin Celexa, Plavix, diltiazem, ferrous sulfate, folic acid, Perforomist, glimepiride, glycopyrrolate , Mucinex, Boniva, Hyzentra, DuoNeb, metformin, Singulair omeprazole, patavastatin, Tordoza, prednisone 12 mg daily, travoprost. ALLERGIES: ASPIRIN, LEVAQUIN, QUINIDINE, FEXOFENADINE, FUROSEMIDE, METOPROLOL PRAVASTATIN. FAMILY HISTORY: Father with history of coronary artery disease. SOCIAL HISTORY: The patient is a former smoker, 45 pack years. PHYSICAL EXAMINATION: Temperature 98.2, pulse 95, respiration 16, blood pressure 159/76, oxygen 94% on 2 liters nasal cannula. GENERAL: Patient is sitting in bed. Appears to be in some mild respiratory distress. Is using some accessory muscles for respiration but able to speak in short sentences. He is mildly diaphoretic. HEENT: Normocephalic, atraumatic. Pupils are reactive to light bilaterally. Mucous membranes are moist. He has some oral thrush noted and dentures. NECK: Supple. Trachea is midline. Unable to appreciate any cervical adenopathy. CARDIAC: Distant heart sounds with regular S1, S2 with no audible murmur. PULMONARY: Prolonged expiration bilaterally with significantly diminished breath sounds bilaterally with bilateral coarse wheezing noted. ABDOMEN: Soft, nontender, nondistended. LOWER EXTREMITIES: There is no lower extremity edema noted bilaterally. ASSESSMENT AND PLAN: Mr. Velasquez is 68-year-old male with a history of chronic obstructive pulmonary disease (COPD) with bronchiectasis, on chronic steroids, with a history of chronic hypoxemic respiratory failure, on nasal cannula oxygen supplementation, history of chronic antibiotics, common and variable immunodeficiency, on IVIG, coronary artery disease (CAD), peripheral arterial disease (PAD), diabetes, hypertension, hyperlipidemia, obstructive sleep apnea (MYKEL), on CPAP, who presented with increased shortness of breath and cough. The patient was treated as an outpatient with Bactrim with no improvement, and his sputum culture as an outpatient was positive for Streptococcus pneumoniae, which was pansensitive, as well as Serratia miracenses, which he has previously had in his sputum cultures. It was sensitive to ciprofloxacin, Levaquin, cefepime and imipenem. It was an intermediate to ceftriaxone and Zosyn. He patient continues to have shortness of breath and wheezing today. He feels his breathing is only slightly improved from previous. He does continue have a cough, although it is nonproductive at this time. 1. Acute COPD exacerbation and acute bronchiectasis exacerbation secondary to Streptococcus pneumoniae infection. - The patient was started on ceftriaxone for antibiotics for the Streptococcus pneumoniae. He has a history of Serratia, which may potentially be colonization at this point, but would consider broadening antibiotics to cefepime if there is no improvement to treat both of the organisms in his recent sputum culture. Would follow up with infectious disease (ID) consult and recommendations about antibiotics. - Continue with Solu-Medrol 60 mg every 8 hours. - Continue with DuoNeb every 6 hours and will use the heliox for the nebulizer administration, as he previously reports improvement in his shortness of breath and in his bronchospasm when he uses heliox for his nebulizer treatments - Will check a procalcitonin to help with the escalation of antibiotics. - Would restart his Bactrim for Pneumocystis carinii pneumonia (PCP) prophylaxis given his chronic steroid use. - Continue with nasal cannula oxygen supplementation. The patient is on 2 liters nasal cannula chronically, and he appears to be at his baseline. His arterial blood gas (ABG) shows chronic hypoxemic respiratory failure, which is at his baseline, with no significant respiratory acidosis. - Will continue to monitor his lactic acidosis. The patient had increased lactic acidosis, likely secondary to his increased work of breathing. Deep vein thrombosis (DVT) prophylaxis. Lovenox Code status: DO NOT RESUSCITATE/DO NOT INTUBATE. MTDD
[2019-05-20] MEDS: TUDORZA PRESSAIR INH SCH (19:26)
[2019-05-20] MEDS: MONTELUKAST 10 MG TAB PO SCH (21:15)
[2019-05-20] MEDS: CLOPIDOGREL 75 MG TAB PO SCH (21:15)
[2019-05-20] MEDS: FAMOTIDINE 20 MG TAB PO SCH (21:15)
[2019-05-20] MEDS: CitaloPRAM (CeleXA) 20 MG TAB PO SCH (21:15)
[2019-05-20] MEDS: TRAVOPROST EYE OU SCH (21:16)
[2019-05-20] MEDS: LATANOPROST 0.005% OPHTH SOLN 2.5 ML OU SCH (21:19)
[2019-05-20 22:00] VITALS: BP 149/85
[2019-05-21] MEDS: IPRATROPIUM 0.5MG/ALBUTEROL 2.5MG INH SOL UD 3ML (DUONEB)(J7620) NEB SCH ×4 (01:58→19:23)
[2019-05-21] MEDS: methylPREDNISolone INJ 125 MG/2 ML VIAL (J2930) IV SCH ×4 (02:10→23:57)
[2019-05-21 06:00] VITALS: BP 170/90
[2019-05-21 06:05] VITALS: BP 148/82
[2019-05-21] MEDS: TUDORZA PRESSAIR INH SCH ×2 (07:31→19:22)
[2019-05-21] MEDS: BUDESONIDE 0.5 MG/2 ML INHALATION SUSPENSION INH SCH ×2 (07:31→19:22)
[2019-05-21] MEDS: FORMOTEROL FUMARATE 20 MCG/2 ML INHALATION SOLUTION (PERFOROMIST) INH SCH ×2 (07:31→19:22)
[2019-05-21 08:13] LABS: BASO % 0.1 % (0.0-1.0); HEMATOCRIT 36.1 % (42.0-52.0); HEMOGLOBIN 12.4 g/dl (13.5-17.5); LYMPH # 0.6 10^3/uL (1.5-5.0); LYMPH % 2.9 % (24.0-44.0); MEAN CORPUSCULAR HEMOGLOBIN 32.8 pg (27.0-33.0); MEAN CORPUSCULAR HGB CONC 34.3 g/dl (32.0-36.5); MEAN CORPUSCULAR VOLUME 95.5 fl (80.0-96.0); MONO # 0.4 10^3/uL (0.0-0.8); MONO % 1.6 % (0.0-5.0); NEUTROPHILS # 20.2 10^3/uL (1.5-8.5); NEUTROPHILS % 93.8 % (36.0-66.0); PLATELET COUNT, AUTOMATED 483 10^3/uL (150-450); RED BLOOD COUNT 3.78 10^6/uL (4.30-6.10); WHITE BLOOD COUNT 21.5 10^3/uL (4.0-10.0)
[2019-05-21 08:44] LABS: ALBUMIN 3.1 GM/DL (3.2-5.2); ALT/SGPT 57 U/L (12-78); BILIRUBIN,TOTAL 0.3 MG/DL (0.2-1.0); BLOOD UREA NITROGEN 19 MG/DL (7-18); CALCIUM LEVEL 8.3 MG/DL (8.8-10.2); CARBON DIOXIDE LEVEL 28 MEQ/L (21-32); CHLORIDE LEVEL 100 MEQ/L (98-107); CREATININE FOR GFR 0.83 MG/DL (0.70-1.30); GLOMERULAR FILTRATION RATE > 60.0 (>49); GLUCOSE, FASTING 177 MG/DL (70-100); POTASSIUM SERUM 4.5 MEQ/L (3.5-5.1); SODIUM LEVEL 137 MEQ/L (136-145); TOTAL PROTEIN 6.2 GM/DL (6.4-8.2)
[2019-05-21] MEDS: guaiFENesin ER 600 MG TAB PO SCH ×2 (08:44→21:44)
[2019-05-21] MEDS: ASCORBIC ACID 500 MG TAB PO SCH (08:44)
[2019-05-21] MEDS: OMEPRAZOLE 20 MG CAP PO SCH (08:44)
[2019-05-21] MEDS: VITAMIN D 1,000 INTERNATIONAL UNITS TABLET PO SCH (08:44)
[2019-05-21] MEDS: DOCUSATE SODIUM 100 MG CAP PO SCH ×2 (08:45→21:45)
[2019-05-21] MEDS: FOLIC ACID 1 MG TAB PO SCH (08:45)
[2019-05-21] MEDS: GLIMEPIRIDE 2 MG TAB PO SCH (08:45)
[2019-05-21] MEDS: LACTOBACILLUS ACIDOPHILUS CAP (BACID) PO SCH (08:45)
[2019-05-21] MEDS: FERROUS SULFATE 325MG TAB PO SCH (08:45)
[2019-05-21] MEDS: ENOXAPARIN 40 MG/0.4 ML SYRINGE (J1650) SC SCH (08:46)
[2019-05-21] MEDS: HumaLOG INSULIN (NovoLOG) PER UNIT SC SCH ×4 (08:49→21:44)
[2019-05-21] MEDS: BRIMONIDINE 0.1% OPHTH SOLN 5 ML OU SCH ×2 (08:50→18:32)
[2019-05-21] MEDS: NS 1,000 ML IV SCH ×2 (08:51→21:49)
[2019-05-21] MEDS: CEFEPIME HCL 1 GM in D5W MINI-BAG PLUS 50 ML IV SCH ×2 (09:34→21:43)
--- NOTE | 2019-05-21 10:16 | IPNPDOC ---
Subjective Date Seen The patient was seen on 05/21/19. Subjective Chief Complaint/HPI Patient is slightly better but still has shortness of breath and wheezing General: Denies: ROS Unobtainable, Chills, Night Sweats, Fatigue, Malaise, Normal Appetite, Other Symptoms Constitutional: Denies: Chills, Fever, Malaise, Night Sweats, Weakness, Fatigue, Weight Loss, Lethargy, Other Pulmonary: Reports: Dyspnea Cardiovascular: Denies: Chest Pain, Palpitations, Orthopnea, Paroxysmal Noc. Dyspnea, Edema, Lt Headedness, Other Symptoms Gastrointestinal: Denies: Nausea, Vomiting, Abdominal Pain, Diarrhea, Constipation, Melena, Hematochezia, Other Symptoms Genitourinary: Denies: Dysuria, Frequency, Incontinence, Hematuria, Retention, Other Symptoms Musculoskeletal: Denies: Neck Pain, Back Pain, Shoulder Pain, Arm Pain, Hand Pain, Leg Pain, Foot Pain, Joint Pain, Muscle Pain, Spasms, Other Symptoms Neurological: Denies: Weakness, Numbness, Incoordination, Change in speech, Confusion, Seizures, Other Symptoms Objective Physical Examination Neck Exam: Positive: Supple Chest Exam: Positive: Wheezing Heart Exam: Positive: Rate Normal, Normal S1 Abdomen Exam: Positive: Normal bowel sounds, Soft, Tenderness Extremity Exam: Positive: Normal pulses Skin Exam: Positive: Nl turgor and temperature Neuro Exam: Positive: Strength at 5/5 X4 ext, Normal Tone, Sensation Intact Psych Exam: Positive: Mental status NL, Mood NL, Oriented x 3 Assessment /Plan Problems (1) Streptococcal pneumonia Status: Acute Problem Text: This is 68 years old white male with past medical history of COPD who is on steroids and oxygen dependent, chronic hypoxic respiratory fail ure, bronchiectasis on chronic antibiotics cycles 2 weeks on and 2 weeks off with Ceftin R and ciprofloxacin. 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 He is being admitted with strep pneumonia infection and chronic bronchiectasis. Patient. WBC count is 18.2, hemoglobin and hematocrit within normal range. Electrolytes are within normal range. His BUN of 16, creatinine 0.93. Lactic acid is 2.8 Chest x-ray is consistent with: Patient admitted to [facility] floor with telemetry Will DC IV fluid as he is good oral intake Rocephin DC'd and patient is started on cefepime as per pulmonary's recommendation Continue Solu-Medrol 60 mg IV every 8 hours Continue oxygen supplementation DuoNeb every 6 hours and every 2 hours when necessary Pulmonary consult appreciated and will also consult infectious disease consult as per pulmonary recommendations DVT prophylaxis with Lovenox Regular diet Activity as tolerated (2) Acute respiratory failure with hypoxia Status: Acute Problem Text: Patient's ABG shows pH of 7.49, PCO2 38, PO2 54.4, and percentage 90.8% Acute on chronic respiratory failure, most likely secondary to acute infection and chronic bronchiectasis Continue IV antibiotics Pulmonary consult and guidelines appreciated (3) Bronchiectasis Status: Acute Problem Text: O2 support Discussed with Dr. Mendoza. Patient will be seen today by her Further changes in management as per pulmonary Continue home meds (4) Diabetes mellitus Status: Chronic Problem Text: Fingerstick blood sugar acute CHF with coverage Plan/VTE VTE Prophylaxis Ordered?: Yes VS, I&O, 24H, Fishbone Vital Signs/I&O Vital Signs Date Time Temp Pulse Resp B/P (MAP) Pulse Ox O2 Delivery O2 Flow Rate FiO2 05/21/19 08:45 73 148/82 05/21/19 06:00 97.9 19 96 Nasal Cannula 2.0 I&O- Last 24 Hours up to 6 AM 05/21/19 06:00 Intake Total 2760 ml Output Total 1200 ml Balance 1560 ml Laboratory Data 24H LABS Laboratory Tests 2 05/20/19 11:35: Bedside Glucose (Misc Panel) 249H 05/20/19 16:51: Bedside Glucose (Misc Panel) 237H 05/20/19 21:16: Bedside Glucose (Misc Panel) 276H 05/21/19 06:39: Bedside Glucose (Misc Panel) 172H 05/21/19 07:54: Immature Granulocyte % (Auto) 1.6, Neutrophils (%) (Auto) 93.8H, Lymphocytes (%) (Auto) 2.9L, Monocytes (%) (Auto) 1.6, Eosinophils (%) (Auto) 0.0, Basophils (%) (Auto) 0.1, Neutrophils # (Auto) 20.2H, Lymphocytes # (Auto) 0.6L, Monocytes # (Auto) 0.4, Eosinophils # (Auto) 0.0, Basophils # (Auto) 0.0, Nucleated Red Blood Cells % (auto) 0.0, Anion Gap 9, Glomerular Filtration Rate > 60.0, Lactic Acid Level 3.1*H, Calcium Level 8.3L, Total Bilirubin 0.3#, Aspartate Amino Transf (AST/SGOT) 20, Alanine Aminotransferase (ALT/SGPT) 57, Alkaline Phosphatase 63, Total Protein 6.2L, Albumin 3.1L, Albumin/Globulin Ratio 1.00 CBC/BMP Laboratory Tests 05/21/19 07:54 Microbiology Microbiology 05/19/19 Blood Culture - Preliminary, Resulted No growth after 24 hours . All specim... 05/19/19 Blood Culture - Preliminary, Resulted No growth after 24 hours . All specim... ABEBA BURT MD May 21, 2019 10:16
[2019-05-21 14:00] VITALS: BP 145/80
--- NOTE | 2019-05-21 18:15 | IPN ---
DATE: 05/21/2019 The patient was seen and examined this morning during bedside rounds. This morning he continues report shortness of breath which has only mildly improved since his admission. He denies any chest pain but does have some chest tightness and discomfort. He continues to have a cough which is not productive of any mucus. He denies any fevers or chills. Has not had any abdominal pain. No nausea or vomiting and denies any lower extremity edema. PHYSICAL EXAMINATION: Temperature 97.9, pulse 73, respirations 19, blood pressure 148/82, oxygen saturation 96% on 2 liters nasal cannula. General: Patient is sitting in bed, is using some accessory muscles for respiration, but is able to speak in short sentences and does not appear to be in significant respiratory distress. HEENT: Normocephalic, atraumatic. Pupils reactive light bilaterally. Mucous membranes are moist. The patient has oral thrush noted and dentures. Neck is supple. Trachea is midline. Unable to appreciate any cervical adenopathy. Cardiac: Distant heart sounds with regular S1, S2 and no appreciable murmur. Pulmonary: Diminished breath sounds bilaterally with prolonged expiration. No significant wheezes or rhonchi noted today except mild wheezing with forceful exhalation. Abdomen: Soft, nontender, nondistended. No palpable masses. Extremities: There is no lower extremity edema noted bilaterally. ASSESSMENT AND PLAN: Mr. 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 The patient had sputum culture as an outpatient which was positive for Streptococcus pneumoniae as well as Serratia marcescens. Patient with an acute COPD and bronchiectasis exacerbation secondary to a Streptococcus pneumoniae infection. - The patient was initially started on ceftriaxone for antibiotics. As he reports that he has not been improving significantly he was brought in to cefepime for more broader coverage to cover both the Streptococcus pneumoniae as well as the Serratia which was resistant to the ceftriaxone. - Appreciate ID consult and recommendations about further antibiotic adjustments. - The patient procalcitonin was 0.04, however, would continue with antibiotics at this time as the procalcitonin is for trending for de-escalation and discontinuing. - Continue with Solu-Medrol 60 mg every 8 hours. - Continue with DuoNebs every 6 hours and will start heliox to be used with his nebulizer treatments to help improve his bronchospasm. - Can continue with his home nebulizers of budesonide and Perforomist as well as Tudorza. - The patient does have thrush and he was on nystatin lozenges as well as swish and swallow as outpatient - Continue with Bactrim for PCP prophylaxis given his chronic steroid use. - Continue with nasal cannula oxygen supplementation. He is at his baseline on 2 liters a minute currently. - The patient's lactic acidosis is trending down. He likely had increased lactic acidosis due to his increased work of breathing on his initial presentation. DVT prophylaxis. Lovenox. CODE STATUS: DO NOT RESUSCITATE/DO NOT INTUBATE. MTDD
[2019-05-21] MEDS: CLOPIDOGREL 75 MG TAB PO SCH (21:44)
[2019-05-21] MEDS: MONTELUKAST 10 MG TAB PO SCH (21:44)
[2019-05-21] MEDS: FAMOTIDINE 20 MG TAB PO SCH (21:44)
[2019-05-21] MEDS: CitaloPRAM (CeleXA) 20 MG TAB PO SCH (21:44)
[2019-05-21] MEDS: LATANOPROST 0.005% OPHTH SOLN 2.5 ML OU SCH (21:45)
[2019-05-21] MEDS: TRAVOPROST EYE OU SCH (21:45)
[2019-05-21 22:00] VITALS: BP 167/87
[2019-05-22 00:08] VITALS: O2SAT 95
[2019-05-22] MEDS: IPRATROPIUM 0.5MG/ALBUTEROL 2.5MG INH SOL UD 3ML (DUONEB)(J7620) NEB SCH ×6 (01:09→23:06)
[2019-05-22 06:28] LABS: BASO % 0.1 % (0.0-1.0); HEMATOCRIT 35.3 % (42.0-52.0); HEMOGLOBIN 12.1 g/dl (13.5-17.5); LYMPH # 0.6 10^3/uL (1.5-5.0); LYMPH % 2.8 % (24.0-44.0); MEAN CORPUSCULAR HEMOGLOBIN 32.7 pg (27.0-33.0); MEAN CORPUSCULAR HGB CONC 34.3 g/dl (32.0-36.5); MEAN CORPUSCULAR VOLUME 95.4 fl (80.0-96.0); MONO # 0.3 10^3/uL (0.0-0.8); MONO % 1.4 % (0.0-5.0); NEUTROPHILS # 18.3 10^3/uL (1.5-8.5); PLATELET COUNT, AUTOMATED 457 10^3/uL (150-450); WHITE BLOOD COUNT 19.5 10^3/uL (4.0-10.0)
[2019-05-22 06:54] LABS: ALBUMIN 2.8 GM/DL (3.2-5.2); ALT/SGPT 52 U/L (12-78); BILIRUBIN,TOTAL 0.2 MG/DL (0.2-1.0); BLOOD UREA NITROGEN 22 MG/DL (7-18); CALCIUM LEVEL 8.4 MG/DL (8.8-10.2); CARBON DIOXIDE LEVEL 27 MEQ/L (21-32); CHLORIDE LEVEL 103 MEQ/L (98-107); CREATININE FOR GFR 0.73 MG/DL (0.70-1.30); GLOMERULAR FILTRATION RATE > 60.0 (>49); GLUCOSE, FASTING 193 MG/DL (70-100); SODIUM LEVEL 138 MEQ/L (136-145); TOTAL PROTEIN 6.5 GM/DL (6.4-8.2)
[2019-05-22] MEDS: BUDESONIDE 0.5 MG/2 ML INHALATION SUSPENSION INH SCH ×2 (07:51→19:36)
[2019-05-22] MEDS: FORMOTEROL FUMARATE 20 MCG/2 ML INHALATION SOLUTION (PERFOROMIST) INH SCH ×2 (07:51→19:36)
[2019-05-22] MEDS: TUDORZA PRESSAIR INH SCH ×2 (07:52→19:36)
[2019-05-22 09:00] VITALS: O2SAT 94
[2019-05-22] MEDS: DOCUSATE SODIUM 100 MG CAP PO SCH (09:00)
[2019-05-22] MEDS: methylPREDNISolone INJ 125 MG/2 ML VIAL (J2930) IV SCH (09:44)
[2019-05-22] MEDS: LACTOBACILLUS ACIDOPHILUS CAP (BACID) PO SCH (09:44)
[2019-05-22] MEDS: HumaLOG INSULIN (NovoLOG) PER UNIT SC SCH ×4 (09:44→21:05)
[2019-05-22] MEDS: BRIMONIDINE 0.1% OPHTH SOLN 5 ML OU SCH ×2 (09:45→17:27)
[2019-05-22] MEDS: ENOXAPARIN 40 MG/0.4 ML SYRINGE (J1650) SC SCH (09:45)
[2019-05-22] MEDS: CEFEPIME HCL 1 GM in D5W MINI-BAG PLUS 50 ML IV SCH ×2 (09:45→21:04)
[2019-05-22] MEDS: VITAMIN D 1,000 INTERNATIONAL UNITS TABLET PO SCH (09:45)
[2019-05-22] MEDS: GLIMEPIRIDE 2 MG TAB PO SCH (09:46)
[2019-05-22] MEDS: FOLIC ACID 1 MG TAB PO SCH (09:46)
[2019-05-22] MEDS: OMEPRAZOLE 20 MG CAP PO SCH (09:46)
[2019-05-22] MEDS: guaiFENesin ER 600 MG TAB PO SCH ×2 (09:46→21:04)
[2019-05-22] MEDS: ASCORBIC ACID 500 MG TAB PO SCH (09:46)
[2019-05-22] MEDS: BACTRIM 160MG/800MG DS TAB PO SCH (09:47)
[2019-05-22] MEDS: FERROUS SULFATE 325MG TAB PO SCH (09:47)
[2019-05-22] MEDS ORDERED: DOCUSATE SODIUM 100 MG CAP PO PRN (10:00)
--- NOTE | 2019-05-22 10:32 | IPNPDOC ---
Subjective Date Seen The patient was seen on 05/22/19. Subjective Chief Complaint/HPI Patient feels slightly better but still short of breath and he wishes his nebulizer to be every 4 hours General: Denies: ROS Unobtainable, Chills, Night Sweats, Fatigue, Malaise, Normal Appetite, Other Symptoms Constitutional: Denies: Chills, Fever, Malaise, Night Sweats, Weakness, Fatigue, Weight Loss, Lethargy, Other Pulmonary: Reports: Dyspnea Cardiovascular: Denies: Chest Pain, Palpitations, Orthopnea, Paroxysmal Noc. Dyspnea, Edema, Lt Headedness, Other Symptoms Gastrointestinal: Denies: Nausea, Vomiting, Abdominal Pain, Diarrhea, Constipation, Melena, Hematochezia, Other Symptoms Genitourinary: Denies: Dysuria, Frequency, Incontinence, Hematuria, Retention, Other Symptoms Musculoskeletal: Denies: Neck Pain, Back Pain, Shoulder Pain, Arm Pain, Hand Pain, Leg Pain, Foot Pain, Joint Pain, Muscle Pain, Spasms, Other Symptoms Neurological: Denies: Weakness, Numbness, Incoordination, Change in speech, Confusion, Seizures, Other Symptoms Psych: Denies: Mood Normal, Anxiety, Depression, Memory Issues, Thoughts of Self Harm, Anger, Thoughts of Harming Other, Other Psych Objective Physical Examination General Exam: Positive: Alert, Cooperative Eye Exam: Positive: PERRLA, Conjunctiva & lids normal ENT Exam: Positive: Atraumatic, Mucous membr. moist/pink Neck Exam: Positive: Supple Chest Exam: Positive: Wheezing (significantly decreased wheezing but diminished bilaterally) Heart Exam: Positive: Rate Normal, Normal S1 Abdomen Exam: Positive: Normal bowel sounds, Soft, Tenderness Extremity Exam: Positive: Normal pulses Skin Exam: Positive: Nl turgor and temperature Neuro Exam: Positive: Strength at 5/5 X4 ext, Normal Tone, Sensation Intact Psych Exam: Positive: Mental status NL, Mood NL, Oriented x 3 Assessment /Plan Problems (1) Streptococcal pneumonia Status: Acute Problem Text: This is 68 years old white male with past medical history of COPD who is on steroids and oxygen dependent, chronic hypoxic respiratory failure, bronchiectasis on chronic antibiotics cycles 2 weeks on and 2 weeks off with Ceftin R and ciprofloxacin. 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 He is being admitted with strep pneumonia infection and chronic bronchiectasis. Patient. WBC count is 18.2, hemoglobin and hematocrit within normal range. Electrolytes are within normal range. His BUN of 16, creatinine 0.93. Lactic acid is 2.8 Patient admitted to [facility] floor with telemetry Is a slow but steady progress in his respiratory status Will DC IV fluid as he is good oral intake Continue cefepime 1 g IV piggyback every 12 hours Continue Solu-Medrol 60 mg IV every 8 hours Continue oxygen supplementation The change DuoNeb every 4 hours and every 2 hours when necessary Pulmonary was done and appreciated Infectious disease consult is pending DVT prophylaxis with Lovenox Regular diet Out of bed as tolerated (2) Acute respiratory failure with hypoxia Status: Acute Problem Text: Patient's ABG shows pH of 7.49, PCO2 38, PO2 54.4, and percentage 90.8% Acute on chronic respiratory failure, most likely secondary to acute infection and chronic bronchiectasis Continue IV antibiotics Pulmonary consult and guidelines appreciated Oxygen support as per orders (3) Bronchiectasis Status: Acute Problem Text: O2 support Discussed with Dr. Mendoza. Patient will be seen today by her Further changes in management as per pulmonary Continue home meds (4) Diabetes mellitus Status: Chronic Problem Text: Fingerstick blood sugar acute CHF with coverage Plan/VTE VTE Prophylaxis Ordered?: Yes VS, I&O, 24H, Fishbone Vital Signs/I&O Vital Signs Date Time Temp Pulse Resp B/P (MAP) Pulse Ox O2 Delivery O2 Flow Rate FiO2 05/22/19 09:48 96 152/77 05/22/19 06:00 98.9 18 93 Nasal Cannula 3.0 I&O- Last 24 Hours up to 6 AM 05/22/19 06:00 Intake Total 4275 ml Output Total 3950 ml Balance 325 ml Laboratory Data 24H LABS Laboratory Tests 2 05/21/19 11:49: Bedside Glucose (Misc Panel) 232H 05/21/19 12:08: Lactic Acid Followup at 4 Hours 3.1*H 05/21/19 16:35: Bedside Glucose (Misc Panel) 340H 05/21/19 21:03: Bedside Glucose (Misc Panel) 300H 05/22/19 05:54: Immature Granulocyte % (Auto) 1.7, Neutrophils (%) (Auto) 94.0H, Lymphocytes (%) (Auto) 2.8L, Monocytes (%) (Auto) 1.4, Eosinophils (%) (Auto) 0.0, Basophils (%) (Auto) 0.1, Neutrophils # (Auto) 18.3H, Lymphocytes # (Auto) 0.6L, Monocytes # (Auto) 0.3, Eosinophils # (Auto) 0.0, Basophils # (Auto) 0.0, Nucleated Red Blood Cells % (auto) 0.0, Anion Gap 8, Glomerular Filtration Rate > 60.0, Calcium Level 8.4L, Total Bilirubin 0.2, Aspartate Amino Transf (AST/SGOT) 18, Alanine Aminotransferase (ALT/SGPT) 52, Alkaline Phosphatase 56, Total Protein 6.5, Albumin 2.8L, Albumin/Globulin Ratio 0.76L CBC/BMP Laboratory Tests 05/22/19 05:54 Microbiology Microbiology 05/19/19 Blood Culture - Preliminary, Resulted No Growth after 48 hours. All Specime... 05/19/19 Blood Culture - Preliminary, Resulted No Growth after 48 hours. All Specime... BAEBA BURT MD May 22, 2019 10:32
--- NOTE | 2019-05-22 12:24 | IPN ---
DATE: 05/22/2019 The patient was seen, examined this morning during bedside rounds. This morning the patient reports his shortness of breath has improved slightly when using the nebulizer treatments with Heliox administration. He was asking for more frequent nebulizer treatments, however, with every 4 hours instead of every 6 hours. He continues to have an occasional cough, which is not productive of mucus. He denies any chest pain. No fevers or chills. PHYSICAL EXAMINATION: Temperature 98.9, pulse 77, respirations 18, blood pressure was 167/87, O2 sat. 93% on 3 liters nasal cannula. Ins 4.2 liters, out 2.5. GENERAL: Patient is sitting in bed. Is able to speak in short sentences and is using some accessory muscles for respiration with pursed-lip breathing but does not appear to be in significant respiratory distress. HEENT: Normocephalic, atraumatic. The pupils reactive to light bilaterally. Mucous membranes are moist. The patient has oral thrush and dentures. NECK: Supple. Trachea is midline. I do not appreciate any cervical adenopathy. CARDIAC: Distant heart sounds regular S1, S2. No appreciable murmur. PULMONARY: Diminished breath sounds bilaterally with prolonged expiration but improvement in the air entry noted. There is no wheezing or rhonchi noted today. ABDOMEN: Soft, nontender, nondistended. No palpable masses. EXTREMITIES: There is no lower extremity edema noted bilaterally. ASSESSMENT/PLAN: Mr. Velasquez is a 68-year male with history of chronic obstructive pulmonary disease (COPD) with bronchiectasis on chronic steroids with a history of chronic hypoxemic respiratory failure on nasal cannula oxygen supplementation, history of chronic antibiotics with common variable immunodeficiency on intravenous immune globulin (IVIG), coronary artery disease (CAD), peripheral artery disease (PAD) diabetes, hypertension, hyperlipidemia, obstructive sleep apnea (MYKEL) on CPAP who presented with increased shortness breath and cough. The patient has been cultured as an outpatient. It was positive for strep pneumonia as well as Serratia. Acute COPD and bronchiectasis exacerbation secondary to a possible strep pneumoniae infection. - The patient was brought in on antibiotics cefepime to cover both the Strep pneumonia and the Serratia. which was resistant to ceftriaxone which she was initially started on the - the patient's procalcitonin came back at 0.04, however, given the positive sputum culture, would continue with the antibiotics at this time pending recommendations from infectious disease (ID) for de-escalation and changing him back to his chronic alternating cycles of antibiotics. - Continue with Solu-Medrol. Will wean him down from 60 mg every 8 to 40 mg every 8 hours with a slowed wean and taper. He does have a history of exacerbating with weaning in tapering of his steroids. He was previously on chronic prednisone and 11-12 mg on his admission. - Continue with DuoNebs: Will change to every 4 hours with Helios administration to help with his severe bronchospasm. - Continue with his home nebulizers of budesonide performance and as well as with the home Tudorza. - Continue treatment for his thrush. - Continue Bactrim for PCP prophylaxis given his chronic steroid use. - Continue nasal cannula oxygen supplementation. He has at baseline on 2 liters minute. Would continue to maintain O2 sat above 90% - Will discontinue his IV fluids. The patient has been eating and drinking well. - Continue with home C-PAP for his MYKEL - Deep venous thrombosis (DVT) prophylax Lovenox. Code status: DO NOT RESUSCITATE /DO NOT INTUBATE. MTDD
[2019-05-22 14:00] VITALS: BP 132/75
[2019-05-22] MEDS: methylPREDNISolone INJ 40 MG/1 ML VIAL (J2920) IV SCH ×2 (17:27→23:14)
[2019-05-22] MEDS: LATANOPROST 0.005% OPHTH SOLN 2.5 ML OU SCH (21:03)
[2019-05-22] MEDS: TRAVOPROST EYE OU SCH (21:03)
[2019-05-22] MEDS: CLOPIDOGREL 75 MG TAB PO SCH (21:04)
[2019-05-22] MEDS: MONTELUKAST 10 MG TAB PO SCH (21:04)
[2019-05-22] MEDS: CitaloPRAM (CeleXA) 20 MG TAB PO SCH (21:04)
[2019-05-22] MEDS: FAMOTIDINE 20 MG TAB PO SCH (21:04)
[2019-05-22 22:00] VITALS: BP 141/77
[2019-05-22 23:00] VITALS: O2SAT 94
[2019-05-23] MEDS: IPRATROPIUM 0.5MG/ALBUTEROL 2.5MG INH SOL UD 3ML (DUONEB)(J7620) NEB SCH ×6 (03:39→23:51)
[2019-05-23 06:00] VITALS: BP 142/78
[2019-05-23 06:23] LABS: BASO % 0.2 % (0.0-1.0); HEMATOCRIT 37.8 % (42.0-52.0); HEMOGLOBIN 12.8 g/dl (13.5-17.5); LYMPH # 0.6 10^3/uL (1.5-5.0); LYMPH % 3.2 % (24.0-44.0); MEAN CORPUSCULAR HEMOGLOBIN 32.6 pg (27.0-33.0); MEAN CORPUSCULAR HGB CONC 33.9 g/dl (32.0-36.5); MEAN CORPUSCULAR VOLUME 96.2 fl (80.0-96.0); MONO # 0.4 10^3/uL (0.0-0.8); MONO % 2.3 % (0.0-5.0); NEUTROPHILS # 16.2 10^3/uL (1.5-8.5); NEUTROPHILS % 92.1 % (36.0-66.0); PLATELET COUNT, AUTOMATED 462 10^3/uL (150-450); RED BLOOD COUNT 3.93 10^6/uL (4.30-6.10); WHITE BLOOD COUNT 17.6 10^3/uL (4.0-10.0)
[2019-05-23 06:56] LABS: ALT/SGPT 57 U/L (12-78); BILIRUBIN,TOTAL 0.5 MG/DL (0.2-1.0); BLOOD UREA NITROGEN 20 MG/DL (7-18); CALCIUM LEVEL 8.5 MG/DL (8.8-10.2); CARBON DIOXIDE LEVEL 28 MEQ/L (21-32); CHLORIDE LEVEL 97 MEQ/L (98-107); CREATININE FOR GFR 0.88 MG/DL (0.70-1.30); GLOMERULAR FILTRATION RATE > 60.0 (>49); GLUCOSE, FASTING 206 MG/DL (70-100); POTASSIUM SERUM 4.2 MEQ/L (3.5-5.1); SODIUM LEVEL 134 MEQ/L (136-145); TOTAL PROTEIN 6.6 GM/DL (6.4-8.2)
[2019-05-23] MEDS: FORMOTEROL FUMARATE 20 MCG/2 ML INHALATION SOLUTION (PERFOROMIST) INH SCH ×2 (07:03→19:46)
[2019-05-23] MEDS: BUDESONIDE 0.5 MG/2 ML INHALATION SUSPENSION INH SCH ×2 (07:03→19:46)
[2019-05-23] MEDS: TUDORZA PRESSAIR INH SCH ×2 (07:03→19:46)
[2019-05-23] MEDS: methylPREDNISolone INJ 40 MG/1 ML VIAL (J2920) IV SCH ×2 (08:08→15:52)
[2019-05-23] MEDS: LACTOBACILLUS ACIDOPHILUS CAP (BACID) PO SCH (08:08)
[2019-05-23] MEDS: FERROUS SULFATE 325MG TAB PO SCH (08:09)
[2019-05-23] MEDS: OMEPRAZOLE 20 MG CAP PO SCH (08:09)
[2019-05-23] MEDS: ASCORBIC ACID 500 MG TAB PO SCH (08:09)
[2019-05-23] MEDS: FOLIC ACID 1 MG TAB PO SCH (08:09)
[2019-05-23] MEDS: guaiFENesin ER 600 MG TAB PO SCH ×2 (08:09→21:04)
[2019-05-23] MEDS: GLIMEPIRIDE 2 MG TAB PO SCH (08:09)
[2019-05-23] MEDS: VITAMIN D 1,000 INTERNATIONAL UNITS TABLET PO SCH (08:09)
[2019-05-23] MEDS: ENOXAPARIN 40 MG/0.4 ML SYRINGE (J1650) SC SCH (08:10)
[2019-05-23] MEDS: CEFEPIME HCL 1 GM in D5W MINI-BAG PLUS 50 ML IV SCH ×2 (08:10→21:02)
[2019-05-23] MEDS: BRIMONIDINE 0.1% OPHTH SOLN 5 ML OU SCH ×2 (08:10→17:06)
[2019-05-23] MEDS: HumaLOG INSULIN (NovoLOG) PER UNIT SC SCH ×4 (08:11→21:03)
[2019-05-23 08:17] LABS: IMMUNOGLOBULIN A 23.6 MG/DL (70-400); IMMUNOGLOBULIN M 7.6 MG/DL (40-230)
[2019-05-23 09:00] VITALS: O2SAT 93
--- NOTE | 2019-05-23 11:16 | IPN ---
DATE: 05/23/2019 The patient was seen and examined this morning during bedside rounds. He state he is feeling a lot better this morning. The tight that he felt in the center of the chest has improved overnight. He is happy with his nebulized treatments now that are every 4 hours. He does continue to admit to having occasional cough, still dry and not bringing up anything. He denies any chest pain, worsening shortness of breath, fevers or chills. He has no other complaints today. PHYSICAL EXAMINATION: VITALS: Temperature 97.9, pulse 89, respiration rate 18, blood pressure 142/78 (99), pulse ox 99% on 2 liters of nasal cannula. Intake 3257 mL. Output 2850, balance positive 407. GENERAL: This is a very pleasant 68-year-old male who presented to the emergency room in acute distress, able to speak in short sentences and not using his accessory muscle for respiration. Does not appear in respiratory distress. HEENT: Normocephalic, atraumatic, pupils equal, round, and reactive. Moist mucous membranes. No jugular venous distention (JVD). No cervical adenopathy. CARDIAC: Regular S1, S2 sounds with a rate of 97-98. No abnormal murmur, rubs or gallop. Heart sounds are not as distant today. PULMONARY: Breath sounds improving, diminished in the upper lobes with prolonged expiration that significantly improved since yesterday. Lower bibasilar expiratory wheezing appreciated as well. ABDOMEN: Soft, nontender, nondistended with no palpable masses. EXTREMITIES: No lower extremity edema noted. LABORATORY: WBC 17.6, hemoglobin 12,8, hematocrit 37.8, platelets 462. Chemistry: Sodium 134, potassium 4.2, chloride 97, carbon dioxide 28, BUN 20, creatinine 0.88, fasting glucose 206. Blood cultures times two negative for growth at 72 hours. ASSESSMENT/PLAN: Mr. Velasquez is a 68-year-old male with a history of chronic obstructive pulmonary disease, bronchiectasis on chronic steroids with a history of chronic hypoxemic respiratory failure on nasal cannula oxygen supplementation, history of chronic antibiotics with common variable immunodeficiency on intravenous immune globulin (IVIG), coronary artery disease (CAD), peripheral artery disease (PAD) diabetes, hypertension, hyperlipidemia, obstructive sleep apnea (MYKEL) on CPAP who presented with increased shortness breath and cough. The patient has been cultured as an outpatient. It was positive for strep pneumoniae as well as Serratia. Acute chronic obstructive pulmonary disease (COPD) and bronchiectasis exacerbation secondary to possible strep pneumoniae infection. He was brought in on antibiotics cefepime to cover both strep and Serratia. This was resistant to ceftriaxone, which he was initially started on. His procalcitonin came back 0.04, however, given the positive sputum cultures outpatient, will continue the antibiotics at this time pending recommendations for infectious disease. Continue with Solu- Medrol 40 mg every 8 hours for 2 more days, then taper to 40 mg every 12 for 2 days, then switch from Solu-Medrol to prednisone 40 mg daily. He will be discharged on prednisone 40 mg by mouth daily and when he follows up with Dr. Kline as outpatient, she will taper him down. He was previously on chronic prednisone of 11-12 mg on admission. Continue with DuoNebs every 4 hours as well as Heliox administration for severe bronchospasm. Continue with his home nebulizer for budesonide as well as home Tudorza. Continue his treatment for thrush. Continue Bactrim for PCP prophylaxis for his chronic steroid use. Continue with nasal cannula oxygen supplementation currently on his baseline 2 liters of nasal cannula. Maintain saturations above 90%. Continue with CPAP for his obstructive sleep apnea. Deep venous thrombosis prophylaxis, Lovenox. Code Status: DO NOT RESUSCITATE, DO NOT INTUBATE. MTDD
[2019-05-23 14:00] VITALS: BP 166/87
--- NOTE | 2019-05-23 19:45 | CR ---
DATE OF CONSULTATION: 05/22/2019 Asked to consult by the hospitalist for followup on pneumococcal infection and pneumonia. HISTORY OF PRESENT ILLNESS: Mr. Velasquez is a 68-year-old gentleman well known to me from outpatient and multiple hospitalizations. He has a history of chronic obstructive pulmonary disease (COPD) with chronic respiratory failure, on oxygen 2 liters nasal cannula, bronchiectasis, on rotating antibiotics with cefdinir and ciprofloxacin 2 weeks every months, variable immune deficiency, on subcutaneous IG, Hyzentra given to him by Dr. Otoole . The patient had finished his rotating cefdinir dose on May 05, the day after . Five days later he had a flu-like illness with a fever, and he was started on Tamiflu even though his flu test was negative. He had body aches. His arms and legs were hurting. He also was started on Bactrim DS one tablet twice a day for 10 days. The patient's fever improved. He slightly got better with temperatures and body aches, but his cough got worse, and his shortness of breath and chest heaviness got worse. The patient was admitted on Wednesday, mostly because of his shortness of breath. Sputum culture from May 10 with received. That was done at [facility]. Had numerous pneumococcus strep pneumonia and sensitive to Bactrim, and the patient had received 5 days of Bactrim. Actually it was a pansensitive pneumococcus and Serratia marcescens, which was resistant to ampicillin, amoxicillin, and inducible resistance to ceftriaxone and cefotaxime, sensitive to Invanz, gentamicin, imipenem, and cefepime. The patient initially received two doses of intravenous (IV) Rocephin daily and then was switched to cefepime. He still complains of significant congestion and shortness. PAST MEDICAL HISTORY: Significant for: 1. COPD. 2. Bronchiectasis, on chronic steroids. He was on 20 mg but had decrease to 12 mg in the past month. 3. Chronic hypoxic respiratory failure, on 2 liters oxygen. 4. Variable immune deficiency, on subcutaneous IG. 5. Coronary artery disease status post stents 6. Peripheral vascular disease status post femoral endarterectomy. 7. Diabetes. 8. Glaucoma. 9. Hearing impairment. 10. Obstructive sleep apnea, on continuous positive airway pressure (CPAP). 11. Hypertension. 12. Aortic valve replacement. 13. Chronic vertebral compression fracture. 14. GERD. 15. Hyperlipidemia. 16. History of pneumothorax. ALLERGIES ASPIRIN, NARESH FUROSEMIDE LEVAQUIN causes tendon pain, METOPROLOL, PRAVACHOL QUINIDINE. MEDICATIONS: - Alphagan one drop to both eyes twice a day - glimepiride 4 mg by mouth daily - probiotics one tablet by mouth daily - Bactrim one tablet Wednesday, Wednesday, Wednesday - diltiazem 240 mg by mouth daily - citalopram 20 mg by mouth daily - Colace 100 mg by mouth twice a day. The patient refused. - albuterol/Atrovent nebulizers as needed - metformin 500 mg by mouth twice a day - insulin sliding scale - Lovenox 40 mg subcutaneous daily - cefepime 1 gram IV every 12 hours - clotrimazole 10 mg every 2 as needed - Tudorza inhaled twice a day - famotidine 40 mg by mouth at bedtime - Perforomist 20 mcg inhaled twice a day - omeprazole 40 mg by mouth daily - Plavix 75 mg by mouth at bedtime Chest x-ray PA and lateral showed a right lower lobe opacity, consistent with pneumonia. PHYSICAL EXAMINATION: A pleasant gentleman in no acute distress. HEART: Normal S1, S2. No murmurs appreciated. Distant. LUNGS: Decreased breath sounds bilaterally with no wheezes or rhonchi. Poor air entry. ABDOMEN: Bloated, soft, nontender. No hepatosplenomegaly. BACK: No costovertebral angle (CVA) or lumbosacral tenderness. EXTREMITIES: No clubbing, cyanosis, or edema. No calf tenderness. Oropharynx dry with no thrush. No lesions. NEUROLOGIC: Alert, oriented times three. Motor strength normal. IMPRESSION: This is a 68-year-old gentleman admitted with chronic obstructive pulmonary disease (COPD) exacerbation/bronchiectasis exacerbation from pneumococcal infection with evidence of right lower lobe pneumonia on chest x-ray. The patient was on appropriate antibiotic as an outpatient with Bactrim double-strength twice a day. Fever has resolved, but his chest congestion has remained. His procalcitonin on admission was 0.04, which makes the likelihood that is persistent infection less likely. The patient has always had very long flare-up exacerbation of his COPD with any infection, and what I suspect he is dealing with right now is not infection as much as COPD/bronchiectasis acute exacerbation. He has is on appropriate antibiotic with IV cefepime and this point. Will continue with that antibiotic. I will be rediscuss with him his allergy to quinolones, to Levaquin, as this may also be an appropriate treatment at this time. PLAN: Continue IV cefepime 1 gram every 12 hours. Will discuss the side effect of Levaquin, but patient regularly takes Cipro, so I cannot imagine this bad reaction. Heliox and increase nebulizers to every 4 hours to help with COPD exacerbation. MTDD
[2019-05-23 19:50] VITALS: O2SAT 96
--- NOTE | 2019-05-23 20:08 | IPNPDOC ---
Date Seen The patient was seen on 05/23/19. 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 Patient is evaluated by pulmonology and infectious disease, currently on cef epime and Bactrim for PCP prophylaxis due to chronic oral steroids. Patient continues to have cough, without any sputum production at this time. Patient denies any chest pain, nausea, vomiting or diarrhea. 10 point review of systems negative. PHYSICAL EXAMINATION: VITAL SIGNS: Please see below. GENERAL: No distress, frail HEENT: Normocephalic, atraumatic, moist mucous membranes NECK: Supple CARDIOVASCULAR EXAMINATION: S1, S2, no murmurs RESPIRATORY EXAMINATION: Scattered rhonchi, no wheezing ABDOMINAL EXAMINATION: Soft, nontender, nondistended, positive bowel sounds EXTREMITIES: Range of motion intact SKIN: No rash NEUROLOGICAL EXAMINATION: Alert and oriented 3, no focal deficits PSYCHIATRIC EXAMINATION: Calm and cooperative LABORATORY DATA, IMAGING STUDIES, MICROBIOLOGY: Please see below. DVT prophylaxis ordered?: Yes ASSESSMENT AND PLAN: 68-year-old male with extensive medical history is admitted for pneumonia. PROBLEMS: 1. Pneumonia/bronchiectasis: Continue IV steroids, DuoNeb, Mucinex, Singulair, Pulmicort, cefepime and Bactrim for PCP prophylaxis, supplemental oxygen as needed to maintain O2 sats of 88-92%. Pulmonary and ID following.. 2. Common variable immunodeficiency: On IVIG outpatient, immunoglobulin levels low. 3. COPD: Treatment as per above. 4. Obstructive sleep apnea: Continue CPAP 5. Diabetes mellitus: Continue glimepiride and sliding scale insulin before meals and at bedtime 6. Hypertension: Continue home meds. DVT prophylaxis: Lovenox. GI professor: PPI VS, I&O, 24H, Marisa Vital Signs/I&O Vital Signs Date Time Temp Pulse Resp B/P (MAP) Pulse Ox O2 Delivery O2 Flow Rate FiO2 05/23/19 19:50 96 Nasal Cannula 2.0 05/23/19 14:00 99.0 89 15 166/87 (113) 05/22/19 12:16 28 I&O- Last 24 Hours up to 6 AM 05/23/19 06:00 Intake Total 3077 ml Output Total 2200 ml Balance 877 ml Laboratory Data 24H LABS Laboratory Tests 2 05/22/19 20:03: Bedside Glucose (Misc Panel) 299H 05/23/19 05:48: Immature Granulocyte % (Auto) 2.2, Neutrophils (%) (Auto) 92.1H, Lymphocytes (%) (Auto) 3.2L, Monocytes (%) (Auto) 2.3, Eosinophils (%) (Auto) 0.0, Basophils (%) (Auto) 0.2, Neutrophils # (Auto) 16.2H, Lymphocytes # (Auto) 0.6L, Monocytes # (Auto) 0.4, Eosinophils # (Auto) 0.0, Basophils # (Auto) 0.0, Nucleated Red Blood Cells % (auto) 0.0, Anion Gap 9, Glomerular Filtration Rate > 60.0, Calcium Level 8.5L, Total Bilirubin 0.5#, Aspartate Amino Transf (AST/SGOT) 13, Alanine Aminotransferase (ALT/SGPT) 57, Alkaline Phosphatase 56, Total Protein 6.6, Albumin 3.0L, Albumin/Globulin Ratio 0.83L, Immunoglobulin A 23.6L, Immunoglobulin G 798, Immunoglobulin M 7.6L 05/23/19 11:54: Bedside Glucose (Misc Panel) 255H 05/23/19 16:47: Bedside Glucose (Misc Panel) 337H CBC/BMP Laboratory Tests 05/23/19 05:48 Microbiology Microbiology 05/19/19 Blood Culture - Preliminary, Resulted No Growth after 72 hours. All specime... 05/19/19 Blood Culture - Preliminary, Resulted No Growth after 72 hours. All specime... MAG HERNANDEZ MD May 23, 2019 20:08
[2019-05-23 21:00] VITALS: O2SAT 94
[2019-05-23] MEDS: LATANOPROST 0.005% OPHTH SOLN 2.5 ML OU SCH (21:03)
[2019-05-23] MEDS: TRAVOPROST EYE OU SCH (21:03)
[2019-05-23] MEDS: CitaloPRAM (CeleXA) 20 MG TAB PO SCH (21:04)
[2019-05-23] MEDS: CLOPIDOGREL 75 MG TAB PO SCH (21:04)
[2019-05-23] MEDS: FAMOTIDINE 20 MG TAB PO SCH (21:04)
[2019-05-23] MEDS: MONTELUKAST 10 MG TAB PO SCH (21:04)
[2019-05-23 22:00] VITALS: BP 146/71
[2019-05-24] MEDS: methylPREDNISolone INJ 40 MG/1 ML VIAL (J2920) IV SCH ×4 (00:09→23:00)
[2019-05-24] MEDS: IPRATROPIUM 0.5MG/ALBUTEROL 2.5MG INH SOL UD 3ML (DUONEB)(J7620) NEB SCH ×6 (04:00→23:05)
[2019-05-24 06:00] VITALS: BP 144/79
[2019-05-24] MEDS: FORMOTEROL FUMARATE 20 MCG/2 ML INHALATION SOLUTION (PERFOROMIST) INH SCH ×2 (06:32→19:45)
[2019-05-24] MEDS: BUDESONIDE 0.5 MG/2 ML INHALATION SUSPENSION INH SCH ×2 (06:32→19:44)
[2019-05-24] MEDS: TUDORZA PRESSAIR INH SCH ×2 (06:32→21:52)
[2019-05-24] MEDS: CEFEPIME HCL 1 GM in D5W MINI-BAG PLUS 50 ML IV SCH ×2 (08:04→21:37)
[2019-05-24] MEDS: HumaLOG INSULIN (NovoLOG) PER UNIT SC SCH ×4 (08:04→21:52)
[2019-05-24] MEDS: guaiFENesin ER 600 MG TAB PO SCH ×2 (08:05→21:37)
[2019-05-24] MEDS: FERROUS SULFATE 325MG TAB PO SCH (08:05)
[2019-05-24] MEDS: GLIMEPIRIDE 2 MG TAB PO SCH (08:05)
[2019-05-24] MEDS: VITAMIN D 1,000 INTERNATIONAL UNITS TABLET PO SCH (08:05)
[2019-05-24] MEDS: LACTOBACILLUS ACIDOPHILUS CAP (BACID) PO SCH (08:05)
[2019-05-24] MEDS: ASCORBIC ACID 500 MG TAB PO SCH (08:05)
[2019-05-24] MEDS: FOLIC ACID 1 MG TAB PO SCH (08:05)
[2019-05-24] MEDS: OMEPRAZOLE 20 MG CAP PO SCH (08:05)
[2019-05-24] MEDS: BACTRIM 160MG/800MG DS TAB PO SCH (08:05)
[2019-05-24] MEDS: BRIMONIDINE 0.1% OPHTH SOLN 5 ML OU SCH ×2 (08:06→17:59)
[2019-05-24 09:10] VITALS: O2SAT 92
[2019-05-24] MEDS: ENOXAPARIN 40 MG/0.4 ML SYRINGE (J1650) SC SCH (09:48)
[2019-05-24 14:00] VITALS: BP 132/77
--- NOTE | 2019-05-24 16:26 | IPNPDOC ---
Date Seen The patient was seen on 05/24/19. 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 Patient is evaluated by pulmonology and infectious disease, currently on cefepime and Bactrim for PCP prophylaxis due to chronic oral steroids. Patient continues to have cough, without any sputum production at this time. Patient denies any chest pain, nausea, vomiting or diarrhea. 05/24/2019 Patient comfortable in bed, reports significant improvement of symptoms, still has dyspnea with exertion, but otherwise close to baseline. He remains on 2 L of oxygen via nasal cannula, having nonproductive cough, no other complaints. He denies any chest pain, nausea, vomiting or abdominal pain. He does report loose stools for the past 24 hours, one episode today. 10 point review of systems negative. PHYSICAL EXAMINATION: VITAL SIGNS: Please see below. GENERAL: No distress, frail HEENT: Normocephalic, atraumatic, moist mucous membranes NECK: Supple CARDIOVASCULAR EXAMINATION: S1, S2, tachycardic RESPIRATORY EXAMINATION: Scattered rhonchi, diminished, minimal wheezing appreciated. ABDOMINAL EXAMINATION: Soft, nontender, nondistended, positive bowel sounds EXTREMITIES: Range of motion intact SKIN: No rash NEUROLOGICAL EXAMINATION: Alert and oriented 3, no focal deficits PSYCHIATRIC EXAMINATION: Calm and cooperative LABORATORY DATA, IMAGING STUDIES, MICROBIOLOGY: Please see below. DVT prophylaxis ordered?: Yes ASSESSMENT AND PLAN: 68-year-old male with extensive medical history is admitted for pneumonia. PROBLEMS: 1. COPD/bronchiectasis exacerbation: Continue IV steroids, DuoNeb, Mucinex, Singulair, Pulmicort, cefepime and Bactrim for PCP prophylaxis, supplemental oxygen as needed to maintain O2 sats of 88-92%. Pulmonary and ID following. C. difficile PCR ordered 2. Common variable immunodeficiency: On IVIG outpatient 3. COPD: Treatment as per above. 4. Obstructive sleep apnea: Continue CPAP 5. Diabetes mellitus: Continue glimepiride and sliding scale insulin before meals and at bedtime 6. Hypertension: Continue home meds. DVT prophylaxis: Lovenox. GI professor: PPI VS, I&O, 24H, Fishbone Vital Signs/I&O Vital Signs Date Time Temp Pulse Resp B/P (MAP) Pulse Ox O2 Delivery O2 Flow Rate FiO2 05/24/19 14:00 98.3 91 18 132/77 (95) 95 Nasal Cannula 2.0 05/22/19 12:16 28 I&O- Last 24 Hours up to 6 AM 05/24/19 06:00 Intake Total 2800 ml Output Total 1650 ml Balance 1150 ml Laboratory Data 24H LABS Laboratory Tests 2 05/23/19 16:47: Bedside Glucose (Misc Panel) 337H 05/23/19 20:45: Bedside Glucose (Misc Panel) 337H 05/24/19 05:42: Bedside Glucose (Misc Panel) 176H 05/24/19 05:43: Procalcitonin 0.14 Microbiology Microbiology 05/19/19 Blood Culture - Final, Complete NO GROWTH AFTER 5 DAYS 05/19/19 Blood Culture - Final, Complete NO GROWTH AFTER 5 DAYS MAG HERNANDEZ MD May 24, 2019 16:26
[2019-05-24] MEDS: CitaloPRAM (CeleXA) 20 MG TAB PO SCH (21:37)
[2019-05-24] MEDS: MONTELUKAST 10 MG TAB PO SCH (21:37)
[2019-05-24] MEDS: FAMOTIDINE 20 MG TAB PO SCH (21:37)
[2019-05-24] MEDS: CLOPIDOGREL 75 MG TAB PO SCH (21:37)
[2019-05-24] MEDS: LATANOPROST 0.005% OPHTH SOLN 2.5 ML OU SCH (21:52)
[2019-05-24] MEDS: TRAVOPROST EYE OU SCH (21:53)
[2019-05-24 22:00] VITALS: BP 128/78
[2019-05-25] MEDS: IPRATROPIUM 0.5MG/ALBUTEROL 2.5MG INH SOL UD 3ML (DUONEB)(J7620) NEB SCH ×3 (03:59→11:27)
[2019-05-25 06:00] VITALS: BP 150/90
[2019-05-25 06:11] LABS: HEMATOCRIT 39.7 % (42.0-52.0); HEMOGLOBIN 13.5 g/dl (13.5-17.5); MEAN CORPUSCULAR HEMOGLOBIN 32.1 pg (27.0-33.0); MEAN CORPUSCULAR VOLUME 94.5 fl (80.0-96.0); PLATELET COUNT, AUTOMATED 409 10^3/uL (150-450); WHITE BLOOD COUNT 14.7 10^3/uL (4.0-10.0)
[2019-05-25 06:34] LABS: BLOOD UREA NITROGEN 21 MG/DL (7-18); CALCIUM LEVEL 8.3 MG/DL (8.8-10.2); CARBON DIOXIDE LEVEL 27 MEQ/L (21-32); CHLORIDE LEVEL 96 MEQ/L (98-107); CREATININE FOR GFR 0.84 MG/DL (0.70-1.30); GLOMERULAR FILTRATION RATE > 60.0 (>49); GLUCOSE, FASTING 192 MG/DL (70-100); MAGNESIUM LEVEL 2.3 MG/DL (1.8-2.4); PHOSPHORUS LEVEL 2.6 MG/DL (2.5-4.9); POTASSIUM SERUM 4.2 MEQ/L (3.5-5.1); SODIUM LEVEL 132 MEQ/L (136-145)
[2019-05-25] MEDS: BUDESONIDE 0.5 MG/2 ML INHALATION SUSPENSION INH SCH (07:32)
[2019-05-25] MEDS: FORMOTEROL FUMARATE 20 MCG/2 ML INHALATION SOLUTION (PERFOROMIST) INH SCH (07:32)
[2019-05-25] MEDS: TUDORZA PRESSAIR INH SCH (07:33)
[2019-05-25] MEDS: ENOXAPARIN 40 MG/0.4 ML SYRINGE (J1650) SC SCH (08:00)
[2019-05-25] MEDS: methylPREDNISolone INJ 40 MG/1 ML VIAL (J2920) IV SCH (08:00)
[2019-05-25] MEDS: FOLIC ACID 1 MG TAB PO SCH (08:00)
[2019-05-25] MEDS: VITAMIN D 1,000 INTERNATIONAL UNITS TABLET PO SCH (08:00)
[2019-05-25] MEDS: HumaLOG INSULIN (NovoLOG) PER UNIT SC SCH ×2 (08:00→12:16)
[2019-05-25] MEDS: FERROUS SULFATE 325MG TAB PO SCH (08:00)
[2019-05-25 08:01] VITALS: BP 150/90
[2019-05-25] MEDS: GLIMEPIRIDE 2 MG TAB PO SCH (08:01)
[2019-05-25] MEDS: OMEPRAZOLE 20 MG CAP PO SCH (08:01)
[2019-05-25] MEDS: LACTOBACILLUS ACIDOPHILUS CAP (BACID) PO SCH (08:01)
[2019-05-25] MEDS: guaiFENesin ER 600 MG TAB PO SCH (08:01)
[2019-05-25] MEDS: ASCORBIC ACID 500 MG TAB PO SCH (08:01)
[2019-05-25] MEDS: CEFEPIME HCL 1 GM in D5W MINI-BAG PLUS 50 ML IV SCH (08:02)
[2019-05-25] MEDS: BRIMONIDINE 0.1% OPHTH SOLN 5 ML OU SCH (08:05)
[2019-05-25 09:10] VITALS: O2SAT 92
[2019-05-25] MEDS ORDERED: PRED20TA PO (11:59)
[2019-05-25 14:00] VITALS: BP 127/86
--- NOTE | 2019-05-25 20:08 | DS.PDOC ---
Discharge Summary General Date of Admission May 19, 2019 at 17:19 Date of Discharge 05/25/19 Attending Physician: MAG HERNANDEZ MD Discharge Summary PROCEDURES PERFORMED DURING STAY: None ADMITTING DIAGNOSES: 1. COPD/Bronchiectasis exacerbation, PNA DISCHARGE DIAGNOSES: 1. COPD/Bronchiectasis exacerbation & PNA COMPLICATIONS/CHIEF COMPLAINT: Bronchiectasis, Strepococcal Pneumonia. HISTORY OF PRESENT ILLNESS: 68 y.o male w/ PMH of COPD, Bronchiectasis, CVID on IVIG & DM was admitted for COPD/Bronchiectasis exacerbation and PNA. Patient was treated w/ IV steroids & antibiotics with significant clinical improvement. He was evaluated by ID & Pulmonology during his stay. He is chronically oxygen & systemic steroid dependent, also requires Bactrim for PCP prophylaxis. He is clinically and hemodynamically stable for discharge and outpatient follow up w/ Senior Gis Analyst, ID & PCP. He was evaluated by PT and cleared for discharge home. HOSPITAL COURSE: as above DISCHARGE MEDICATIONS: Please see below. ALLERGIES: Please see below. PHYSICAL EXAMINATION: VITAL SIGNS: Please see below. GENERAL: No distress, frail HEENT: Normocephalic, atraumatic, moist mucous membranes NECK: Supple CARDIOVASCULAR EXAMINATION: S1, S2, tachycardic RESPIRATORY EXAMINATION: Scattered rhonchi, diminished, minimal wheezing appreciated. ABDOMINAL EXAMINATION: Soft, nontender, nondistended, positive bowel sounds EXTREMITIES: Range of motion intact SKIN: No rash NEUROLOGICAL EXAMINATION: Alert and oriented 3, no focal deficits PSYCHIATRIC EXAMINATION: Calm and cooperative LABORATORY DATA: Please see below. PROGNOSIS: guarded ACTIVITY: As tolerated DIET: cardiac w/ consistent carbs DISCHARGE PLAN: follow up w/ Pulm, ID & PCP in 1-2 weeks DISPOSITION: 01 Home, Self-Care. DISCHARGE INSTRUCTIONS: 1. as above DISCHARGE CONDITION: Stable TIME SPENT ON DISCHARGE: Greater than 32 minutes. Vital Signs/I&Os Vital Signs Date Time Temp Pulse Resp B/P (MAP) Pulse Ox O2 Delivery O2 Flow Rate FiO2 05/25/19 14:00 98.2 95 15 127/86 (100) 94 05/25/19 09:10 2.0 05/25/19 09:10 Nasal Cannula 05/22/19 12:16 28 I&O- Last 24 Hours up to 6 AM 05/25/19 05:59 Intake Total 3660 ml Output Total 3325 ml Balance 335 ml Laboratory Data Labs 24H Laboratory Tests 2 05/24/19 20:24: Bedside Glucose (Misc Panel) 348H 05/25/19 05:38: Nucleated Red Blood Cells % (auto) 0.0, Anion Gap 9, Glomerular Filtration Rate > 60.0, Calcium Level 8.3L, Phosphorus Level 2.6, Magnesium Level 2.3 05/25/19 11:40: Bedside Glucose (Misc Panel) 221H CBC/BMP Laboratory Tests 05/25/19 05:38 FSBS Laboratory Tests Test 05/24/19 20:24 05/25/19 11:40 Range/Units Bedside Glucose (Misc Panel) 348 221 80-115 MG/DL Microbiology Microbiology 05/19/19 Blood Culture - Final, Complete NO GROWTH AFTER 5 DAYS 05/19/19 Blood Culture - Final, Complete NO GROWTH AFTER 5 DAYS Discharge Medications Scheduled Aclidinium Rawlins (Tudorza Pressair) 400 Mcg Aer.pow.ba, 1 PUFF INH BID, (Reported) Albuterol Sulf (Albuterol Sulfate) 2.5 Mg/3 Ml Nebu, 2.5 MG INH QID, (Reported) MIXES WITH IPRATROPIUM Ascorbic Acid (Ascorbic Acid) 500 Mg Tablet, 1,000 MG PO DAILY, (Reported) Brimonidine Tartrate (Alphagan P) 0.1% 5ML Drops, 1 DROP OU BID, (Reported) USES MORNING/DINNERTIME Budesonide (Pulmicort) 0.5 Mg/2 Ml Mely, 0.5 MG INH BID, (Reported) USED WITH PERFOROMIST, USES 30MIN AFTER ALBUTEROL/IPRATROPIUM NEB Calcium Citrate/Vitamin D3 (Calcium Citrate-Vit D3 Caplet) 1 Tab Tab, 1 TAB PO BID, (Reported) Cholecalciferol (Vitamin D3) (Vitamin D3) 1,000 Unit Tablet, 2,000 UNIT PO DAILY, (Reported) Citalopram Hydrobromide (Celexa) 20 Mg Tablet, 20 MG PO QHS, (Reported) Clopidogrel Bisulfate (Plavix) 75 Mg Tab, 75 MG PO QHS, (Reported) Diltiazem HCl (Diltiazem 24Hr ER) 240 Mg Cap, 240 MG PO DAILY, (Reported) Famotidine (Famotidine) 40 Mg Tablet, 40 MG PO QHS, (Reported) Ferrous Sulfate (Ferrous Sulfate) 325 Mg Tab, 325 MG PO DAILY, (Reported) Folic Acid (Folic Acid) 1 Mg Tab, 1 MG PO DAILY, (Reported) Formoterol Fumarate (Perforomist) 20 Mcg/2 Ml Neb, 20 MCG INH BID, (Reported) USED WITH PULMICORT, USES 30MIN AFTER ALBUTEROL/IPRATROPIUM NEB Glimepiride (Glimepiride) 4 Mg Tab, 4 MG PO DAILY, (Reported) WILL TAKE SECOND DOSE IF BS READS HIGH Guaifenesin (Mucinex) 1,200 Mg Tab.er.12h, 1,200 MG PO BID, (Reported) Ibandronate Sodium (Boniva) 150 Mg Tablet, 150 MG PO QMONTH, (Reported) TAKES ON 10TH OF EACH MONTH Immun Glob G(IgG)/Pro/Iga 0-50 (Hizentra 1 Gram/5 ml Vial) 1 Gm/5 Ml Vial, 14 MG SC QWEEK, (Reported) DUE 05/21/19 Ipratropium Rawlins (Ipratropium Rawlins) 0.5 Mg/2.5 Ml Soln, 0.5 MG INH QID, (Reported) MIXES WITH ALBUTEROL L.acidoph/L.bulg/B.bif/S.therm (Bacid Caplet) 1 Each Tablet, 1 TAB PO DAILY, (Reported) Metformin HCl (Metformin HCl) 500 Mg Tab, 500 MG PO BID, (Reported) Montelukast Sodium (Singulair) 10 Mg Tab, 10 MG PO QHS, (Reported) Omeprazole (Omeprazole) 40 Mg Cap, 40 MG PO DAILY, (Reported) Pitavastatin Calcium (Livalo) 2 Mg Tablet, 2 MG PO QHS, (Reported) Prednisone (Prednisone) 20 Mg Tablet, 2 TAB PO DAILY Sulfamethoxazole/Trimethoprim (Bactrim Ds Tablet) 1 Each Tablet, 1 TAB PO 3XW, (Reported) MON/WED/FRI Travoprost (Travatan Z) 50 Drop/2.5 Ml Soln, 1 DROP OU QHS, (Reported) Vitamin B Complex (Vitamin B Complex) 1 Each Tablet, 1 TAB PO DAILY, (Reported) Scheduled PRN Clotrimazole (Clotrimazole) 10 Mg Troc, 10 MG MT Q2H PRN for THRUSH, (Reported) Mupirocin (Mupirocin) 22 Gm Oint...g., 1 APLCT TOP TID PRN for SORES, (Reported) APPLY TO NARES AND UPPER LIP Neomycin/Bacitracin/Polymyxinb (Triple Antibiotic Ointment) 28 Gm Oint...g., 1 APLCT TOP BID PRN for SORES, (Reported) APPLY TO NARES AND UPPER LIP Nitroglycerin (Nitrostat) 0.4 Mg Subl, 0.4 MG SL NITRO PRN for CHEST PAIN, (Reported) Nystatin (Nystatin Oral Susp) 5 Ml Susp, 4 ML PO QID PRN for THRUSH, (Reported) Allergies Coded Allergies: aspirin (Verified Allergy, Mild, RECTAL BLEEDING, 10/26/18) levofloxacin (Verified Allergy, Mild, MUSCLE CRAMPING, 10/26/18) quinidine (Verified Allergy, Mild, HIVES, 10/26/18) fexofenadine (Verified Allergy, Unknown, anaphylaxis, 10/26/18) furosemide (Verified Allergy, Unknown, dizziness, 10/26/18) metoprolol (Verified Allergy, Unknown, d/t lung condition, 10/26/18) pravastatin (Verified Allergy, Unknown, 10/26/18) MAG HERNANDEZ MD May 25, 2019 20:08
== END 2019-05-25 13:47 | disposition home or self-care (01) | DRG 193 ==
LOC: M ED 15:00 → M ED INP 17:19 → M MSPAV 20:57
PROVIDERS: ADMIT Internal Medicine; ATTEND Internal Medicine
DX: J13 Pneumonia due to Streptococcus pneumoniae (principal); J96.21 Acute and chronic respiratory failure with hypoxia; J47.1 Bronchiectasis with (acute) exacerbation; D80.1 Nonfamilial hypogammaglobulinemia; D83.9 Common variable immunodeficiency, unspecified; J43.9 Emphysema, unspecified; E11.51 Type 2 diabetes mellitus with diabetic peripheral angiopathy without gangrene; Z79.52 Long term (current) use of systemic steroids; Z99.81 Dependence on supplemental oxygen; Z79.899 Other long term (current) drug therapy; Z88.6 Allergy status to analgesic agent; Z88.8 Allergy status to other drugs, medicaments and biological substances; H40.9 Unspecified glaucoma; G47.33 Obstructive sleep apnea (adult) (pediatric); F32.9 Major depressive disorder, single episode, unspecified; Z95.2 Presence of prosthetic heart valve; I25.10 Atherosclerotic heart disease of native coronary artery without angina pectoris; E78.5 Hyperlipidemia, unspecified; Z66 Do not resuscitate

== ENCOUNTER → 2019-06-13 | Outpatient (CLI) | payer MEDICARE, OTHER ==
[~2019-06-13] MED LIST changes: +FAMO40TA3 PO; +MUPI2OI TOP; +TRIPOIN11 TOP; +VITA100066 PO
--- NOTE | 2019-06-13 10:41 | REP ---
Bilateral lower extremity arterial Doppler ultrasound: History: Peripheral vascular disease. Atherosclerosis of the [place] arteries. Intermittent claudication. Findings: Ankle brachial indices are measured at 1.1 on the right and 0.7 on the left. Asymmetric blayne brachial artery blood pressures, systolic 140 on the left and 110 on the right. Mild plaquing is seen throughout the right lower extremity moderate plaquing on the left. Significant plaquing is seen in the popliteal artery on the left with a some stenosis. Monophasic waveforms are noted at and distal to the popliteal artery on the left. There are collateral arteries identified in the in and about the knee region on the left. A patent stent is again noted at the level of the distal femoral artery on the right. Velocity chart left lower extremity arteries: CF A 105 cm/S Profunda 97 Proximal SFA 37 Mid SFA 78 Distal SFA 145 Popliteal 16/138 Proximal AT A 35 Tibioperoneal trunk 15 Proximal MULTIMEDIA MANAGER 19 Distal MULTIMEDIA MANAGER 15 Distal AT A 13 Velocity chart right lower extremity arteries: CF A 118 cm/S Profunda 88 Proximal SFA 103 Mid SFA 76 Distal SFA stent 58 Popliteal 70 Proximal AT A 57 Tibioperoneal trunk 65 Proximal MULTIMEDIA MANAGER 58 Distal MULTIMEDIA MANAGER 67 Distal AT A 42 Electronically Signed by Arnie Donaldson MD 06/13/2019 10:32 A
== END ==
LOC: M RAD 08:48
PROVIDERS: ATTEND Physician Assistant
DX: I70.213 Atherosclerosis of native arteries of extremities with intermittent claudication, bilateral legs (principal)

== ENCOUNTER 2019-09-05 09:30 | Inpatient (IN) | payer MEDICARE, OTHER ==
[~2019-09-05] VITALS: Ht 172.7 cm; Wt 73.7 kg
[~2019-09-05 09:30] MED LIST changes: -GLIM2TAB2 PO; +GLIM2TAB4 PO; -GLIM4TAB3 PO; +GLIM4TAB5 PO; -LORA0.5T11 PO; +LORA0.5T5 PO; -MONT10TA2 PO; +MONT10TA4 PO; -NYST50SS PO; +NYST50SS SSP
[2019-09-05] MEDS ORDERED: dexameTHASONE 20MG/5ML VIAL (J1100 PER 1MG) IV ONE (10:00)
[2019-09-05] MEDS: ALBUTEROL 90 MCG/ACT 8GM HFA INHALER INH PRN ×2 (10:12→13:23)
[2019-09-05 10:32] LABS: ABG BASE EXCESS -3.1 (-2.0-2.0); ABG HCO3 20.6 MEQ/L (22.0-26.0); ABG PARTIAL PRESSURE CO2 32.8 mmHg (35.0-45.0); ABG PARTIAL PRESSURE O2 90.4 mmHg (75.0-100.0); ABG STANDARD HCO3 21.9 MEQ/L (22.0-26.0); ABG TOTAL CO2 21.6 MEQ/L (23.0-31.0); ABG pH (ARTERIAL) 7.415 UNITS (7.350-7.450)
--- NOTE | 2019-09-05 10:39 | REP ---
CHEST, SINGLE VIEW: Single view of the chest is performed and compared to prior studies, most recently 05/19/2019. There is pleural and parenchymal scarring in the right base which appears stable. No new infiltrate is seen bilaterally. Heart does not appear to be significantly enlarged. There is calcification and tortuosity of the thoracic aorta. Mediastinal silhouette is unchanged. Metallic clips are seen in the mediastinum. IMPRESSION: Chronic changes with no evidence of acute infiltrate. Electronically Signed by Choco Schneider MD 09/05/2019 11:45 A
[2019-09-05 11:11] LABS: BASO # 0.1 10^3/uL (0.0-0.2); BASO % 0.4 % (0.0-1.0); EOS # 0.2 10^3/uL (0.0-0.5); EOS % 0.6 % (0.0-3.0); HEMATOCRIT 41.7 % (42.0-52.0); HEMOGLOBIN 14.5 g/dl (13.5-17.5); LYMPH # 1.4 10^3/uL (1.5-5.0); LYMPH % 5.1 % (24.0-44.0); MEAN CORPUSCULAR HEMOGLOBIN 33.6 pg (27.0-33.0); MEAN CORPUSCULAR HGB CONC 34.8 g/dl (32.0-36.5); MEAN CORPUSCULAR VOLUME 96.5 fl (80.0-96.0); MONO # 1.4 10^3/uL (0.0-0.8); MONO % 5.1 % (0.0-5.0); NEUTROPHILS # 24.4 10^3/uL (1.5-8.5); NEUTROPHILS % 87.2 % (36.0-66.0); PLATELET COUNT, AUTOMATED 335 10^3/uL (150-450); RED BLOOD COUNT 4.32 10^6/uL (4.30-6.10)
[2019-09-05 11:21] LABS: INR 0.95; PROTHROMBIN TIME 12.4 SECONDS (11.8-14.0)
[2019-09-05 11:50] LABS: ALT/SGPT 31 U/L (12-78); BILIRUBIN,DIRECT 0.1 MG/DL (0.0-0.2); BILIRUBIN,TOTAL 0.4 MG/DL (0.2-1.0); BLOOD UREA NITROGEN 18 MG/DL (7-18); CALCIUM LEVEL 9.3 MG/DL (8.8-10.2); CARBON DIOXIDE LEVEL 29 MEQ/L (21-32); CHLORIDE LEVEL 102 MEQ/L (98-107); CK-MB VALUE MASS 2.2 NG/ML (<3.6); CPK CREATINE PHOSPHOKINASE 79 U/L (39-308); CREATININE FOR GFR 0.83 MG/DL (0.70-1.30); GLOMERULAR FILTRATION RATE > 60.0 (>49); GLUCOSE, FASTING 34 MG/DL (70-100); MB/CK RELATIVE INDEX 2.78 (< OR =4); NT-PRO BNP 155 PG/ML (<125); POTASSIUM SERUM 3.9 MEQ/L (3.5-5.1); SODIUM LEVEL 137 MEQ/L (136-145); THYROXINE (T4) 5.9 UG/DL (4.5-12.0); TOTAL PROTEIN 7.4 GM/DL (6.4-8.2); TROPONIN I < 0.02 NG/ML (< 0.10)
[2019-09-05] MEDS ORDERED: DEXTROSE 50% 50 ML SYRINGE IV STA (11:53)
[2019-09-05] MEDS ORDERED: CEFD1CAP8 PO (12:42)
[2019-09-05] MEDS ORDERED: COMMENTS (12:42)
[2019-09-05] MEDS ORDERED: VITAD1000T PO (12:42)
[2019-09-05] MEDS ORDERED: PRED5TA PO (12:42)
[2019-09-05] MEDS ORDERED: CIPR500T3 PO (12:42)
[2019-09-05] MEDS ORDERED: PRED20TA PO (12:54)
--- NOTE | 2019-09-05 14:32 | HPEPDOC ---
General Date of Admission Sep 05, 2019 at 13:14 Date of Service: Sep 05, 2019 Chief Complaint The patient is a 68-year-old male admitted with a reason for visit of Difficulty Breathing. Source: Patient Exam Limitations: No limitations Severity: Moderate History of Present Illness 68 year old male presents with worsening shortness of breath. Symptoms started 3 days ago, notes compliance with medications. Denies fever/chills, N/V/D, abdominal pain, chest pain/pressure. Presents with stable vitals, afebrile, saturating 97% on 2L NC. Labs with WBC 28, glucose 34 (repeat 166 after D50), CXR negative, CT chest pending, positive rhinovirus on respiratory panel, covid- 19 pending. Started on IV zosyn, admission for further management. Home Medications Scheduled Aclidinium Thrall (Tudorza Pressair) 400 Mcg Aer.pow.ba, 1 PUFF INH BID, (Reported) Albuterol Sulf (Albuterol Sulfate) 2.5 Mg/3 Ml Nebu, 2.5 MG INH QID, (Reported) MIXES WITH IPRATROPIUM Ascorbic Acid (Ascorbic Acid) 500 Mg Tablet, 1,000 MG PO DAILY, (Reported) Brimonidine Tartrate (Alphagan P) 0.1% 5ML Drops, 1 DROP OU BID, (Reported) USES MORNING/DINNERTIME Budesonide (Pulmicort) 0.5 Mg/2 Ml Mely, 0.5 MG INH BID, (Reported) USED WITH PERFOROMIST, USES 30MIN AFTER ALBUTEROL/IPRATROPIUM NEB Calcium Citrate/Vitamin D3 (Calcium Citrate-Vit D3 Caplet) 1 Tab Tab, 1 TAB PO BID, (Reported) Cefdinir (Cefdinir) 300 Mg Capsule, 300 MG PO BID, (Reported) TOOK LAST DOSE THIS 09/05/2019. WAIT 2 DAYS THEN START CIPROFLOXACIN. Cholecalciferol (Vitamin D3) (Vitamin D3) 1,000 Unit Tablet, 2,000 UNITS PO DAILY, (Reported) Ciprofloxacin HCl (Ciprofloxacin HCl) 500 Mg Tablet, 500 MG PO BID, (Reported) WAIT TWO DAYS THEN START 14 DAY COURSE ON 09/07/2019 Citalopram Hydrobromide (Celexa) 20 Mg Tablet, 20 MG PO QHS, (Reported) Clopidogrel Bisulfate (Plavix) 75 Mg Tab, 75 MG PO QHS, (Reported) Diltiazem HCl (Diltiazem 24Hr ER) 240 Mg Cap, 240 MG PO DAILY, (Reported) Famotidine (Famotidine) 40 Mg Tablet, 40 MG PO QHS, (Reported) Ferrous Sulfate (Ferrous Sulfate) 325 Mg Tab, 325 MG PO DAILY, (Reported) Folic Acid (Folic Acid) 1 Mg Tab, 1 MG PO DAILY, (Reported) Formoterol Fumarate (Perforomist) 20 Mcg/2 Ml Neb, 20 MCG INH BID, (Reported) USED WITH PULMICORT, USES 30MIN AFTER ALBUTEROL/IPRATROPIUM NEB Glimepiride (Glimepiride) 4 Mg Tab, 4 MG PO DAILY, (Reported) WILL TAKE SECOND DOSE IF BS READS HIGH Guaifenesin (Mucinex) 1,200 Mg Tab.er.12h, 1,200 MG PO BID, (Reported) Ibandronate Sodium (Boniva) 150 Mg Tablet, 150 MG PO QMONTH, (Reported) TAKES ON 10TH OF EACH MONTH Immun Glob G(IgG)/Pro/Iga 0-50 (Hizentra 1 Gram/5 ml Vial) 1 Gm/5 Ml Vial, 14 MG SC QWEEK, (Reported) Ipratropium Thrall (Ipratropium Thrall) 0.5 Mg/2.5 Ml Soln, 0.5 MG INH QID, (Reported) MIXES WITH ALBUTEROL L.acidoph/L.bulg/B.bif/S.therm (Bacid Caplet) 1 Each Tablet, 1 TAB PO DAILY, (Reported) Metformin HCl (Metformin HCl) 500 Mg Tab, 500 MG PO BID, (Reported) Montelukast Sodium (Singulair) 10 Mg Tab, 10 MG PO QHS, (Reported) Omeprazole (Omeprazole) 40 Mg Cap, 40 MG PO DAILY, (Reported) Pitavastatin Calcium (Livalo) 2 Mg Tablet, 2 MG PO QHS, (Reported) Prednisone (Prednisone) 20 Mg Tablet, 40 MG PO DAILY, (Reported) PCP TOLD PT TO INCREASE TO 40MG AND THEN DECREASE ON 09/05 TO 30MG Sulfamethoxazole/Trimethoprim (Bactrim Ds Tablet) 1 Each Tablet, 1 TAB PO 3XW, (Reported) MON/WED/FRI Travoprost (Travatan Z) 50 Drop/2.5 Ml Soln, 1 DROP OU QHS, (Reported) Vitamin B Complex (Vitamin B Complex) 1 Each Tablet, 1 TAB PO DAILY, (Reported) Scheduled PRN Clotrimazole (Clotrimazole) 10 Mg Troc, 10 MG MT Q2H PRN for THRUSH, (Reported) Mupirocin (Mupirocin) 22 Gm Oint...g., 1 APLCT TOP TID PRN for SORES, (Reported) APPLY TO NARES AND UPPER LIP Neomycin/Bacitracin/Polymyxinb (Triple Antibiotic Ointment) 28 Gm Oint...g., 1 APLCT TOP BID PRN for SORES, (Reported) APPLY TO NARES AND UPPER LIP Nitroglycerin (Nitrostat) 0.4 Mg Subl, 0.4 MG SL NITRO PRN for CHEST PAIN, (Reported) Nystatin (Nystatin Oral Susp) 5 Ml Susp, 4 ML SSP QID PRN for THRUSH, (Reported) Miscellaneous Medications [Comments] , (Reported) PT. ALTERNATES CIPRO AND OMNICEF. TAKES ONE FOR 14 DAYS THEN WAITS TWO DAYS AND STARTS THE OTHER FOR 14 DAYS AND THEN OFF 14 DAYS. Allergies Coded Allergies: fexofenadine (Verified Allergy, Severe, anaphylaxis, 09/05/19) quinidine (Verified Allergy, Intermediate, HIVES, 09/05/19) metoprolol (Verified Adverse Reaction, Intermediate, d/t lung condition, 09/05/19) pravastatin (Verified Adverse Reaction, Intermediate, MUSCLE WEAKNESS, 09/05/19) aspirin (Verified Adverse Reaction, Mild, RECTAL BLEEDING, 09/05/19) furosemide (Verified Adverse Reaction, Mild, dizziness, 09/05/19) levofloxacin (Verified Adverse Reaction, Mild, MUSCLE CRAMPING, 09/05/19) Past Medical History Medical History COPD who is on steroids and oxygen dependent, chronic hypoxic respiratory failure, bronchiectasis on chronic antibiotics cycles 2 weeks on and 2 weeks off with Ceftin R and ciprofloxacin. Also on Bactrim prophylaxis on Wednesday, Wednesday, Wednesday, emphysema, common variable immunodeficiency on IVIG, CAD status post stents, PAD, status post femoral endarterectomy, diabetes mellitus, glaucoma, hearing impairment, MYKEL on CPAP, hypertension, depression, aortic wall replacement with bioprosthetic wall, chronic thoracic vertebral compression fracture Surgical History Invasive aortic wall replacement with bioprosthetic wall, cardiac stents 13, eyelid procedure, time biopsy, left femoral endarterectomy with patch repair and a stent in right leg Surgical History as above A-FIB/CHADSVASC A-FIB History Current/History of A-Fib/PAF?: No Review of Systems Constitutional: Reports: Fatigue; Denies: Chills, Fever, Night Sweats Eyes: Denies: Pain, Vision change ENT: Denies: Head Aches, Ear Pain, Dysphagia Skin: Denies: Rash, Lesions, Breakdown Pulmonary: Reports: Dyspnea, Cough Cardiovascular: Denies: Chest Pain, Palpitations, Orthopnea, Paroxysmal Noc. Dyspnea, Lt Headedness Gastrointestinal: Denies: Nausea, Vomiting, Abdominal Pain, Diarrhea Genitourinary: Denies: Dysuria, Frequency, Incontinence, Retention Hematologic: Denies: Bruising, Bleeding Excessively Musculoskeletal: Denies: Neck Pain, Back Pain, Joint Pain, Muscle Pain, Spasms Neurological: Denies: Weakness, Numbness, Change in speech, Confusion Psych: Reports: Mood Normal; Denies: Depression, Memory Issues Physical Examination General Exam: Positive: Alert, No Acute Distress Eye Exam: Positive: PERRLA, Conjunctiva & lids normal, EOMI; Negative: Sclera icteric ENT Exam: Positive: Atraumatic, Mucous membr. moist/pink, Pharynx Normal Neck Exam: Positive: Supple; Negative: JVD, thyromegaly Chest Exam: Positive: Clear to auscultation, Normal air movement, Diminished Heart Exam: Positive: Rate Normal, Regular Rhythm, Normal S1, Normal S2; Negative: Murmurs, Rubs Telemetry: Positive: No significant arrhythmia Abdomen Exam: Positive: Normal bowel sounds, Soft; Negative: Tenderness, Hepatospenomegaly Extremity Exam: Positive: Normal pulses; Negative: Clubbing, Cyanosis, Edema Skin Exam: Positive: Nl turgor and temperature; Negative: Breakdown, Lesion Neuro Exam: Positive: Normal Gait, Normal Speech, Cranial Nerves 3-12 NL, Reflexes 2+ Psych Exam: Positive: Mental status NL, Mood NL, Oriented x 3 Vital Signs Vital Signs Date Time Temp Pulse Resp B/P (MAP) Pulse Ox O2 Delivery O2 Flow Rate FiO2 09/05/19 14:17 97.5 84 96 09/05/19 14:15 157/86 (109) 09/05/19 09:30 24 Nasal Cannula 2.0 Laboratory Data Labs 24H Laboratory Tests 2 09/05/19 10:08: Blood Gas Bicarbonate Standard 21.9L, Arterial Blood pH 7.415, Arterial Blood Partial Pressure CO2 32.8L, Arterial Blood Partial Pressure O2 90.4, Arterial Blood Total CO2 21.6L, Arterial Blood HCO3 20.6L, Arterial Blood Base Excess - 3.1L, Arterial Blood Oxygen Saturation 97.0 09/05/19 10:32: Immature Granulocyte % (Auto) 1.6, Neutrophils (%) (Auto) 87.2H, Lymphocytes (%) (Auto) 5.1L, Monocytes (%) (Auto) 5.1H, Eosinophils (%) (Auto) 0.6, Basophils (%) (Auto) 0.4, Neutrophils # (Auto) 24.4H, Lymphocytes # (Auto) 1.4L, Monocytes # (Auto) 1.4H, Eosinophils # (Auto) 0.2, Basophils # (Auto) 0.1, Nucleated Red Blood Cells % (auto) 0.0, Prothrombin Time 12.4, Prothromb Time International Ratio 0.95, Anion Gap 6L, Glomerular Filtration Rate > 60.0, Lactic Acid Level 1.6, Calcium Level 9.3, Total Bilirubin 0.4, Direct Bilirubin 0.1, Aspartate Amino Transf (AST/SGOT) 21, Alanine Aminotransferase (ALT/SGPT) 31, Alkaline Phosphatase 77, Total Creatine Kinase 79, Creatine Kinase MB 2.2, Creatine Kinase MB Relative Index 2.78, Troponin I < 0.02, GV-Wsc-L-Type Natriuretic Peptide 155H, Total Protein 7.4, Albumin 4.0, Albumin/Globulin Ratio 1.18, Thyroid Stimulating Hormone (TSH) 1.100, Thyroxine (T4) 5.9 09/05/19 12:03: Bedside Glucose (Misc Panel) 33*L 09/05/19 12:51: Bedside Glucose (Misc Panel) 166H CBC/BMP Laboratory Tests 09/05/19 10:32 Microbiology Microbiology 09/05/19 Respiratory Virus Panel (PCR) ([facility]) - Final, Complete Human Rhinovirus/Enterovirus 09/05/19 Blood Culture, Received Pending 09/05/19 Blood Culture, Received Pending Assessment/Plan 1. acute exacerbation of bronchiectasis/acute bronchitis - sputum cultures/stain, blood cultures, strep/legionella, respiratory panel rhinovirus positive, covid pending. - droplet/contact precautions. - IV zosyn. - duonebs/albuterol prn, supplemental oxygen, IV steroids. 2. hypoglycemia - hold oral medications, monitor FSBS. - SSI coverage as needed. 3. MYKEL - continue home CPAP. 4. HTN - continue cardizem. JADE DAWN MD Sep 05, 2019 14:32
[2019-09-05 14:33] VITALS: BP 134/71
[2019-09-05] MEDS ORDERED: ACETAMINOPHEN TAB 650MG DOSE (2X325MG) PO PRN (15:00)
[2019-09-05] MEDS ORDERED: NEOSPORIN TOP OINT 15GM TOP PRN (15:15)
[2019-09-05] MEDS ORDERED: CLOTRIMAZOLE 10 MG TROCHE MT PRN (15:15)
[2019-09-05] MEDS ORDERED: NYSTATIN 500,000 U/5 ML SUSP UDC SSP PRN (15:15)
[2019-09-05] MEDS ORDERED: MUPIROCIN 2% OINT 22 GM TUBE TOP PRN (15:15)
[2019-09-05] MEDS ORDERED: ALBUTEROL 90 MCG/ACT 8GM HFA INHALER INH PRN (15:15)
--- NOTE | 2019-09-05 16:46 | REP ---
CT CHEST WITHOUT IV CONTRAST: CT chest performed without IV contrast. Sagittal and coronal reconstruction images are performed. COMPARISON: 10/26/2018 There is again mild elevation of the right hemidiaphragm with diffuse fibrotic scarring, most significantly on the right inferiorly. There is new mild ill-defined infiltrate along the left hemidiaphragm. There is no axillary or mediastinal adenopathy. There is moderate atherosclerotic calcification of the thoracic aorta. There is ectasia of the ascending thoracic aorta up to 4.7 cm. No mediastinal adenopathy is seen. There is no pleural or pericardial effusion. Multiple compression deformities of thoracic vertebral bodies are stable compared to the prior study. IMPRESSION: New mild ill-defined infiltrate along the left hemidiaphragm. Diffuse bilateral scarring is otherwise stable. Electronically Signed by Choco Schneider MD 09/05/2019 06:23 P
[2019-09-05] MEDS: PIPERACILLIN/TAZOBACTAM SOD 3.375 GM in D5W MINI-BAG PLUS 50 ML IV SCH ×2 (16:47→21:09)
[2019-09-05] MEDS: methylPREDNISolone INJ 40 MG/1 ML VIAL (J2920) IV SCH (17:42)
[2019-09-05] MEDS: BUDESONIDE 0.5 MG/2 ML INHALATION SUSPENSION INH SCH (19:59)
[2019-09-05] MEDS: FORMOTEROL FUMARATE 20 MCG/2 ML INHALATION SOLUTION (PERFOROMIST) INH SCH (19:59)
[2019-09-05] MEDS: IPRATROPIUM 0.5MG/ALBUTEROL 2.5MG INH SOL UD 3ML (DUONEB)(J7620) NEB SCH (19:59)
[2019-09-05] MEDS: CitaloPRAM (CeleXA) 20 MG TAB PO SCH (20:25)
[2019-09-05] MEDS: FAMOTIDINE 20 MG TAB PO SCH (20:25)
[2019-09-05] MEDS: BRIMONIDINE 0.1% OPHTH SOLN 5 ML OU SCH (20:26)
[2019-09-05] MEDS: LATANOPROST 0.005% OPHTH SOLN 2.5 ML OU SCH (20:26)
[2019-09-05] MEDS: guaiFENesin ER 600 MG TAB PO SCH (20:26)
[2019-09-05] MEDS: CLOPIDOGREL 75 MG TAB PO SCH (20:26)
[2019-09-05 22:00] VITALS: BP 129/75
--- NOTE | 2019-09-06 01:06 | ECGEPIP ---
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
[2019-09-06] MEDS: methylPREDNISolone INJ 40 MG/1 ML VIAL (J2920) IV SCH ×3 (01:09→17:58)
[2019-09-06] MEDS: IPRATROPIUM 0.5MG/ALBUTEROL 2.5MG INH SOL UD 3ML (DUONEB)(J7620) NEB SCH ×4 (01:13→19:32)
[2019-09-06] MEDS ORDERED: GLUCAGON FOR INJ 1 MG VIAL (J1610) SC PRN (01:15)
[2019-09-06] MEDS ORDERED: DEXTROSE 50% 50 ML SYRINGE IV PRN (01:15)
[2019-09-06] MEDS ORDERED: GLUCOSE 4 GM CHEW TABLET PO PRN (01:15)
[2019-09-06] MEDS: HumaLOG INSULIN (NovoLOG) PER UNIT SC SCH ×5 (01:31→23:41)
[2019-09-06] MEDS: PIPERACILLIN/TAZOBACTAM SOD 3.375 GM in D5W MINI-BAG PLUS 50 ML IV SCH ×4 (03:59→21:10)
[2019-09-06 06:00] VITALS: BP 133/77
[2019-09-06 06:01] LABS: ALBUMIN 3.1 GM/DL (3.2-5.2); ALT/SGPT 27 U/L (12-78); BILIRUBIN,TOTAL 0.4 MG/DL (0.2-1.0); BLOOD UREA NITROGEN 21 MG/DL (7-18); CALCIUM LEVEL 8.7 MG/DL (8.8-10.2); CARBON DIOXIDE LEVEL 26 MEQ/L (21-32); CHLORIDE LEVEL 100 MEQ/L (98-107); CREATININE FOR GFR 0.99 MG/DL (0.70-1.30); GLOMERULAR FILTRATION RATE > 60.0 (>49); GLUCOSE, FASTING 201 MG/DL (70-100); SODIUM LEVEL 136 MEQ/L (136-145); TOTAL PROTEIN 6.6 GM/DL (6.4-8.2)
[2019-09-06] MEDS: BUDESONIDE 0.5 MG/2 ML INHALATION SUSPENSION INH SCH ×2 (07:26→19:32)
[2019-09-06] MEDS: FERROUS SULFATE 325MG TAB PO SCH (08:11)
[2019-09-06] MEDS: guaiFENesin ER 600 MG TAB PO SCH ×2 (08:11→21:10)
[2019-09-06] MEDS: FOLIC ACID 1 MG TAB PO SCH (08:11)
[2019-09-06] MEDS: OMEPRAZOLE 20 MG CAP PO SCH (08:12)
[2019-09-06] MEDS: ASCORBIC ACID 500 MG TAB PO SCH (08:12)
[2019-09-06] MEDS: VITAMIN D 1,000 INTERNATIONAL UNITS TABLET PO SCH (08:12)
[2019-09-06] MEDS: BRIMONIDINE 0.1% OPHTH SOLN 5 ML OU SCH ×2 (08:13→21:10)
[2019-09-06] MEDS: FORMOTEROL FUMARATE 20 MCG/2 ML INHALATION SOLUTION (PERFOROMIST) INH SCH ×2 (08:24→19:32)
[2019-09-06 08:56] LABS: HEMATOCRIT 37.9 % (42.0-52.0); HEMOGLOBIN 13.2 g/dl (13.5-17.5); MEAN CORPUSCULAR HEMOGLOBIN 33.6 pg (27.0-33.0); MEAN CORPUSCULAR HGB CONC 34.8 g/dl (32.0-36.5); MEAN CORPUSCULAR VOLUME 96.4 fl (80.0-96.0); PLATELET COUNT, AUTOMATED 305 10^3/uL (150-450); RED BLOOD COUNT 3.93 10^6/uL (4.30-6.10); WHITE BLOOD COUNT 17.3 10^3/uL (4.0-10.0)
--- NOTE | 2019-09-06 09:54 | IPNPDOC ---
Subjective Date Seen The patient was seen on 09/06/19. Subjective Chief Complaint/HPI Seen and examined at bedside, awake and alert, d/w nurse. General: Reports: Normal Appetite; Denies: Chills, Night Sweats, Fatigue, Malaise Constitutional: Denies: Chills, Fever, Night Sweats Eyes: Denies: Pain, Vision change ENT: Denies: Head Aches, Ear Pain, Dysphagia Skin: Denies: Rash, Lesions, Breakdown Pulmonary: Reports: Dyspnea, Cough Cardiovascular: Denies: Chest Pain, Palpitations, Orthopnea, Paroxysmal Noc. Dyspnea, Lt Headedness Gastrointestinal: Denies: Nausea, Vomiting, Abdominal Pain, Diarrhea, Constipation Genitourinary: Denies: Dysuria, Frequency, Incontinence, Retention Hematologic: Denies: Bruising, Bleeding Excessively Musculoskeletal: Denies: Neck Pain, Back Pain, Joint Pain, Muscle Pain, Spasms Neurological: Denies: Weakness, Numbness, Change in speech, Confusion Psych: Reports: Mood Normal; Denies: Depression, Memory Issues Objective Physical Examination General Exam: Positive: Alert, No Acute Distress Eye Exam: Positive: PERRLA, Conjunctiva & lids normal, EOMI; Negative: Sclera icteric ENT Exam: Positive: Atraumatic, Mucous membr. moist/pink, Pharynx Normal Neck Exam: Positive: Supple; Negative: JVD, thyromegaly Chest Exam: Positive: Clear to auscultation, Normal air movement, Diminished Heart Exam: Positive: Rate Normal, Regular Rhythm, Normal S1, Normal S2; Negative: Murmurs, Rubs Telemetry: Positive: No significant arrhythmia Abdomen Exam: Positive: Normal bowel sounds, Soft; Negative: Tenderness, Hepatospenomegaly Male Exam: Positive: Normal Genital Exam Extremity Exam: Positive: Normal pulses; Negative: Clubbing, Cyanosis, Edema Skin Exam: Positive: Nl turgor and temperature; Negative: Breakdown, Lesion Neuro Exam: Positive: Normal Gait, Normal Speech, Cranial Nerves 3-12 NL, Reflexes 2+ Psych Exam: Positive: Mental status NL, Mood NL, Oriented x 3 Assessment /Plan Assessment 1. acute exacerbation of bronchiectasis/acute bronchitis - sputum cultures/stain, blood cultures, strep/legionella, respiratory panel rhinovirus positive, covid pending. - droplet/contact precautions. - CT chest with L sided infiltrate. - IV zosyn. - duonebs/albuterol prn, supplemental oxygen, IV steroids. - consult to DELILAH Davis. 2. hypoglycemia - resolved. - hold oral medications, monitor FSBS. - SSI coverage. 3. MYKEL - continue home CPAP. 4. HTN - continue cardizem. Plan/VTE VTE Prophylaxis Ordered?: Yes VS, I&O, 24H, Fishbone Vital Signs/I&O Vital Signs Date Time Temp Pulse Resp B/P (MAP) Pulse Ox O2 Delivery O2 Flow Rate FiO2 09/06/19 08:12 97 135/76 09/06/19 06:00 96.7 20 96 Nasal Cannula 2.0 I&O- Last 24 Hours up to 6 AM 09/06/19 06:00 Intake Total 1540 ml Output Total 1875 ml Balance -335 ml Laboratory Data 24H LABS Laboratory Tests 2 09/05/19 10:08: Blood Gas Bicarbonate Standard 21.9L, Arterial Blood pH 7.415, Arterial Blood Partial Pressure CO2 32.8L, Arterial Blood Partial Pressure O2 90.4, Arterial Blood Total CO2 21.6L, Arterial Blood HCO3 20.6L, Arterial Blood Base Excess - 3.1L, Arterial Blood Oxygen Saturation 97.0 09/05/19 10:32: Immature Granulocyte % (Auto) 1.6, Neutrophils (%) (Auto) 87.2H, Lymphocytes (%) (Auto) 5.1L, Monocytes (%) (Auto) 5.1H, Eosinophils (%) (Auto) 0.6, Basophils (%) (Auto) 0.4, Neutrophils # (Auto) 24.4H, Lymphocytes # (Auto) 1.4L, Monocytes # (Auto) 1.4H, Eosinophils # (Auto) 0.2, Basophils # (Auto) 0.1, Nucleated Red Blood Cells % (auto) 0.0, Prothrombin Time 12.4, Prothromb Time International Ratio 0.95, Anion Gap 6L, Glomerular Filtration Rate > 60.0, Lactic Acid Level 1.6, Calcium Level 9.3, Total Bilirubin 0.4, Direct Bilirubin 0.1, Aspartate Amino Transf (AST/SGOT) 21, Alanine Aminotransferase (ALT/SGPT) 31, Alkaline Phosphatase 77, Total Creatine Kinase 79, Creatine Kinase MB 2.2, Creatine Kinase MB Relative Index 2.78, Troponin I < 0.02, TC-Kiy-C-Type Natriuretic Peptide 155H, Total Protein 7.4, Albumin 4.0, Albumin/Globulin Ratio 1.18, Thyroid Stimulating Hormone (TSH) 1.100, Thyroxine (T4) 5.9 09/05/19 12:03: Bedside Glucose (Misc Panel) 33*L 09/05/19 12:51: Bedside Glucose (Misc Panel) 166H 09/05/19 15:48: Bedside Glucose (Misc Panel) 108 09/05/19 16:33: 09/05/19 17:25: Bedside Glucose (Misc Panel) 149H 09/06/19 00:36: Bedside Glucose (Misc Panel) 318H 09/06/19 05:03: Bedside Glucose (Misc Panel) 220H 09/06/19 05:09: Nucleated Red Blood Cells % (auto) 0.0, Anion Gap 10, Glomerular Filtration Rate > 60.0, Calcium Level 8.7L, Total Bilirubin 0.4, Aspartate Amino Transf (AST/SGOT) 11, Alanine Aminotransferase (ALT/SGPT) 27, Alkaline Phosphatase 67, Total Protein 6.6, Albumin 3.1#L, Albumin/Globulin Ratio 0.89L CBC/BMP Laboratory Tests 09/05/19 10:32 09/06/19 05:09 Microbiology Microbiology 09/05/19 Gram Stain, Received Pending 09/05/19 Sputum Culture, Received Pending 09/05/19 Blood Culture, Received Pending 09/05/19 Coronavirus COVID-19 PCR ([facility]), Received Pending 09/05/19 Respiratory Virus Panel (PCR) ([facility]) - Final, Complete Human Rhinovirus/Enterovirus 09/05/19 Blood Culture, Received Pending 09/05/19 Blood Culture, Received Pending JADE DAWN MD Sep 06, 2019 09:54
[2019-09-06 16:04] VITALS: BP 139/70
[2019-09-06] MEDS: LATANOPROST 0.005% OPHTH SOLN 2.5 ML OU SCH (21:10)
[2019-09-06] MEDS: CLOPIDOGREL 75 MG TAB PO SCH (21:11)
[2019-09-06] MEDS: FAMOTIDINE 20 MG TAB PO SCH (21:11)
[2019-09-06] MEDS: CitaloPRAM (CeleXA) 20 MG TAB PO SCH (21:11)
[2019-09-06 21:16] VITALS: BP 158/86
[2019-09-07] MEDS: IPRATROPIUM 0.5MG/ALBUTEROL 2.5MG INH SOL UD 3ML (DUONEB)(J7620) NEB SCH ×4 (01:08→20:00)
[2019-09-07] MEDS: PIPERACILLIN/TAZOBACTAM SOD 3.375 GM in D5W MINI-BAG PLUS 50 ML IV SCH ×4 (02:53→21:58)
[2019-09-07] MEDS: methylPREDNISolone INJ 40 MG/1 ML VIAL (J2920) IV SCH ×3 (02:53→17:08)
[2019-09-07 05:46] LABS: BASO % 0.1 % (0.0-1.0); HEMATOCRIT 35.7 % (42.0-52.0); HEMOGLOBIN 12.3 g/dl (13.5-17.5); LYMPH # 0.3 10^3/uL (1.5-5.0); LYMPH % 1.8 % (24.0-44.0); MEAN CORPUSCULAR HEMOGLOBIN 32.7 pg (27.0-33.0); MEAN CORPUSCULAR HGB CONC 34.5 g/dl (32.0-36.5); MEAN CORPUSCULAR VOLUME 94.9 fl (80.0-96.0); MONO # 0.5 10^3/uL (0.0-0.8); MONO % 2.5 % (0.0-5.0); NEUTROPHILS # 17.7 10^3/uL (1.5-8.5); NEUTROPHILS % 94.8 % (36.0-66.0); PLATELET COUNT, AUTOMATED 309 10^3/uL (150-450); RED BLOOD COUNT 3.76 10^6/uL (4.30-6.10); WHITE BLOOD COUNT 18.7 10^3/uL (4.0-10.0)
[2019-09-07 06:02] LABS: BLOOD UREA NITROGEN 20 MG/DL (7-18); CALCIUM LEVEL 8.7 MG/DL (8.8-10.2); CARBON DIOXIDE LEVEL 29 MEQ/L (21-32); CHLORIDE LEVEL 101 MEQ/L (98-107); CREATININE FOR GFR 0.92 MG/DL (0.70-1.30); GLOMERULAR FILTRATION RATE > 60.0 (>49); GLUCOSE, FASTING 221 MG/DL (70-100); POTASSIUM SERUM 4.1 MEQ/L (3.5-5.1); SODIUM LEVEL 137 MEQ/L (136-145)
[2019-09-07] MEDS: HumaLOG INSULIN (NovoLOG) PER UNIT SC SCH ×3 (06:08→17:09)
[2019-09-07 06:10] VITALS: BP 150/81
[2019-09-07] MEDS: guaiFENesin ER 600 MG TAB PO SCH ×2 (07:31→21:58)
[2019-09-07] MEDS: FERROUS SULFATE 325MG TAB PO SCH (07:32)
[2019-09-07] MEDS: OMEPRAZOLE 20 MG CAP PO SCH (07:32)
[2019-09-07] MEDS: FOLIC ACID 1 MG TAB PO SCH (07:32)
[2019-09-07] MEDS: ASCORBIC ACID 500 MG TAB PO SCH (07:32)
[2019-09-07] MEDS: VITAMIN D 1,000 INTERNATIONAL UNITS TABLET PO SCH (07:32)
[2019-09-07] MEDS: BRIMONIDINE 0.1% OPHTH SOLN 5 ML OU SCH ×2 (07:33→21:58)
[2019-09-07] MEDS: FORMOTEROL FUMARATE 20 MCG/2 ML INHALATION SOLUTION (PERFOROMIST) INH SCH ×2 (07:39→20:26)
[2019-09-07] MEDS: BUDESONIDE 0.5 MG/2 ML INHALATION SUSPENSION INH SCH ×2 (07:39→20:26)
--- NOTE | 2019-09-07 09:03 | IPNPDOC ---
Subjective Date Seen The patient was seen on 09/07/19. Subjective Chief Complaint/HPI Seen and examined at bedside, awake and alert, denies cp/pressure, shortness of breath near baseline. General: Reports: Normal Appetite; Denies: Chills, Night Sweats, Fatigue, Malaise Constitutional: Denies: Chills, Fever, Night Sweats Eyes: Denies: Pain, Vision change ENT: Denies: Head Aches, Ear Pain, Dysphagia Skin: Denies: Rash, Lesions, Breakdown Pulmonary: Denies: Dyspnea, Cough Cardiovascular: Denies: Chest Pain, Palpitations, Orthopnea, Paroxysmal Noc. Dyspnea, Lt Headedness Gastrointestinal: Denies: Nausea, Vomiting, Abdominal Pain, Diarrhea, Constipation Genitourinary: Denies: Dysuria, Frequency, Incontinence, Retention Hematologic: Denies: Bruising, Bleeding Excessively Musculoskeletal: Denies: Neck Pain, Back Pain, Joint Pain, Muscle Pain, Spasms Neurological: Denies: Weakness, Numbness, Change in speech, Confusion Psych: Reports: Mood Normal; Denies: Depression, Memory Issues Objective Physical Examination General Exam: Positive: Alert, No Acute Distress Eye Exam: Positive: PERRLA, Conjunctiva & lids normal, EOMI; Negative: Sclera icteric ENT Exam: Positive: Atraumatic, Mucous membr. moist/pink, Pharynx Normal Neck Exam: Positive: Supple; Negative: JVD, thyromegaly Chest Exam: Positive: Clear to auscultation, Normal air movement, Diminished Heart Exam: Positive: Rate Normal, Regular Rhythm, Normal S1, Normal S2; Negative: Murmurs, Rubs Telemetry: Positive: No significant arrhythmia Abdomen Exam: Positive: Normal bowel sounds, Soft; Negative: Tenderness, Hepatospenomegaly Male Exam: Positive: Normal Genital Exam Extremity Exam: Positive: Normal pulses; Negative: Clubbing, Cyanosis, Edema Skin Exam: Positive: Nl turgor and temperature; Negative: Breakdown, Lesion Neuro Exam: Positive: Normal Gait, Normal Speech, Cranial Nerves 3-12 NL, Reflexes 2+ Psych Exam: Positive: Mental status NL, Mood NL, Oriented x 3 Assessment /Plan Assessment 1. acute exacerbation of bronchiectasis/acute bronchitis - sputum cultures/stain, blood cultures, strep/legionella, respiratory panel rhinovirus positive, covid pending. - droplet/contact precautions. - CT chest with L sided infiltrate. - IV zosyn. - duonebs/albuterol prn, supplemental oxygen, IV steroids. - consult to DELILAH Davis. 2. hypoglycemia - resolved. - hold oral medications, monitor FSBS. - SSI coverage. 3. MYKEL - continue home CPAP. 4. HTN - continue cardizem. Plan/VTE VTE Prophylaxis Ordered?: Yes VS, I&O, 24H, Fishbone Vital Signs/I&O Vital Signs Date Time Temp Pulse Resp B/P (MAP) Pulse Ox O2 Delivery O2 Flow Rate FiO2 09/07/19 07:32 79 150/81 09/07/19 06:10 97.9 21 96 Nasal Cannula 1.0 I&O- Last 24 Hours up to 6 AM 09/07/19 06:00 Intake Total 2050 ml Output Total 3000 ml Balance -950 ml Laboratory Data 24H LABS Laboratory Tests 2 09/06/19 12:05: Bedside Glucose (Misc Panel) 387H 09/06/19 17:52: Bedside Glucose (Misc Panel) 287H 09/06/19 23:38: Bedside Glucose (Misc Panel) 400H 09/07/19 05:20: Immature Granulocyte % (Auto) 0.8, Neutrophils (%) (Auto) 94.8H, Lymphocytes (%) (Auto) 1.8L, Monocytes (%) (Auto) 2.5, Eosinophils (%) (Auto) 0.0, Basophils (%) (Auto) 0.1, Neutrophils # (Auto) 17.7H, Lymphocytes # (Auto) 0.3L, Monocytes # (Auto) 0.5, Eosinophils # (Auto) 0.0, Basophils # (Auto) 0.0, Nucleated Red Blood Cells % (auto) 0.0, Anion Gap 7L, Glomerular Filtration Rate > 60.0, Calcium Level 8.7L CBC/BMP Laboratory Tests 09/07/19 05:20 Microbiology Microbiology 09/05/19 Gram Stain - Final, Resulted 09/05/19 Sputum Culture, Resulted Pending 09/05/19 Blood Culture - Preliminary, Resulted No growth after 24 hours . All specim... 09/05/19 Coronavirus COVID-19 PCR ([facility]), Received Pending 09/05/19 Respiratory Virus Panel (PCR) ([facility]) - Final, Complete Human Rhinovirus/Enterovirus 09/05/19 Blood Culture - Preliminary, Resulted No growth after 24 hours . All specim... 09/05/19 Blood Culture - Preliminary, Resulted No growth after 24 hours . All specim... JADE DAWN MD Sep 07, 2019 09:03
[2019-09-07] MEDS: TUDORZA 400 MCG INH SCH ×2 (10:53→20:29)
[2019-09-07 11:06] LABS: ABG BASE EXCESS 1.7 (-2.0-2.0); ABG O2 SATURATION 95.8 % (95.0-99.0); ABG PARTIAL PRESSURE O2 78.3 mmHg (75.0-100.0); ABG STANDARD HCO3 25.9 MEQ/L (22.0-26.0); ABG pH (ARTERIAL) 7.507 UNITS (7.350-7.450)
[2019-09-07 14:46] VITALS: BP 146/68
--- NOTE | 2019-09-07 17:58 | CR ---
DATE OF CONSULTATION: 09/07/2019 INFECTIOUS DISEASE CONSULTATION Asked to consult by hospitalist for evaluation of chronic obstructive pulmonary disease (COPD) exacerbation and left lower lobe infiltrate. HISTORY OF PRESENT ILLNESS: Casey is a 68-year-old gentleman with end-stage COPD, oxygen and steroid dependent, on prednisone 20 mg daily. The patient started having increasing shortness of breath about 4 days prior to admission. He increased his dose of prednisone to 30, then 40 mg daily without any improvement. He denied having any fever, chills, nausea, vomiting, diarrhea, abdominal pain, sore throat or headache. He had no myalgias. The patient was brought in by his to the emergency room because of increasing congestion, difficulty bringing up the phlegm and worsening shortness of breath. He is usually on oxygen 2 liters nasal cannula and was saturating well, but his white count was elevated at 28,000, glucose 35, that increase to 166 after D50. Chest x-ray Showed chronic changes. Chest CT showed an ill-defined infiltrate at the left base with bilateral scarring. The patient was started on IV Zosyn and Solu-Medrol 40 mg every 8 hours with some improvement, but he feels he needs his nebulizers every 4 hours not every 6 hours and would like to try Heliox. He has been afebrile since he is here. The patient has a past medical history significant for severe COPD, oxygen and steroid dependent, chronic hypoxic respiratory failure, bronchiectasis, alternating 2 weeks on, 2 weeks off of ciprofloxacin and cefdinir. He also takes Bactrim for PCP prophylaxis since he is on chronic steroids at 20 mg daily. Common variable immunodeficiency, on subcu immunoglobulin, follows up with Dr. Otoole, takes weekly injections. Coronary artery disease, status post stenting, peripheral vascular disease, diabetes. glaucoma, hearing impairment, obstructive sleep apnea - on continuous positive airway pressure (CPAP), follows with Dr. Kline, hypertension, depression. PAST SURGICAL HISTORY: Post femoral endarterectomy, aortic valve replacement with bioprosthetic valve, cardiac stents, eyelid surgery, right leg stent for peripheral vascular disease. SOCIAL HISTORY: He is . He lives with his . He has children and three grandchildren that he watches since their parents are going through a divorce. He has no travel, no contact except with the three grandchildren that have been healthy. ALLERGIES: ASPIRIN, NARESH, FUROSEMIDE, LEVOFLOXACIN, METOPROLOL, PRAVACHOL, QUINIDINE. MEDICATIONS: - Zosyn 3.375 grams IV every 6 hours - ascorbic acid 1000 mg daily - vitamin D 2000 units daily - diltiazem 240 mg daily - ferrous sulfate 325 mg daily - folic acid 1 mg daily - omeprazole 40 mg daily - citalopram 20 mg by mouth nightly - Plavix 75 mg by mouth nightly - famotidine 40 mg by mouth nightly - Mucinex 1200 mg by mouth twice a day - albuterol/Atrovent nebs every 6 hours - budesonide 0.5 mg inhaled twice a day - Perforomist 20 mcg inhaled twice a day - Solu-Medrol 40 mg IV every 8 hours LABORATORY DATA: White count is 28 on admission, today it is 18.7, hemoglobin 12.3, hematocrit 35.7, platelets 309, 95% neutrophils, 2% lymphocytes. Sodium 137, potassium 4.1, chloride 101, bicarbonate 29, BUN 20, creatinine 0.92, glucose 221, calcium 8.7, albumin 3.1, total protein 6.6, AST 11, ALT 27, alkaline phosphatase 67, TSH 1.1, T4 of 5.9. PT 12.4, INR 0.95. Urine Legionella antigen is pending. Pneumococcal antigen is pending. Blood cultures, two sets, are negative. Respiratory panel positive for Enterovirus, COVID is pending. Sputum culture is negative. Gram stain had many white cells and gram-positive cocci in clusters. Chest CT had diffuse scarring with left lower lobe ill-defined infiltrate. IMPRESSION: This is a 68-year-old gentleman with known advanced COPD, oxygen and steroid dependent, on rotating antibiotics - ciprofloxacin and cefdinir 2 weeks of every month, Bactrim for PCP prophylaxis, admitted with COPD exacerbation with positive respiratory panel for rhinovirus. There is a questionable CT finding of infiltrate, may have bacterial pneumonia. Seemed to have more of a viral COPD exacerbation. He is afebrile. His white count is probably reactive leukocytosis, stress induced. He has improved on IV Zosyn, although his culture is negative, but the patient had just finished a course of antibiotic, and he is chronically on Bactrim. We will add procalcitonin to see if it is elevated; that would help us decide whether he has a bacterial superinfection. PLAN: Continue IV Zosyn at current dose 3.375 grams every 6 hours, add procalcitonin to see if it is viral or bacterial infection, change his nebulizers to every 4 hours, this is his maintenance dose, and add Heliox 70/30 to be given with a nebulizer to help with improved laminar flow. Case has been discussed with Dr. Kline, his customer program specialist, who agrees with the plan. This is definitely not COVID infection.
[2019-09-07] MEDS: CitaloPRAM (CeleXA) 20 MG TAB PO SCH (21:58)
[2019-09-07] MEDS: FAMOTIDINE 20 MG TAB PO SCH (21:58)
[2019-09-07] MEDS: CLOPIDOGREL 75 MG TAB PO SCH (21:58)
[2019-09-07] MEDS: LATANOPROST 0.005% OPHTH SOLN 2.5 ML OU SCH (21:58)
[2019-09-07 22:03] VITALS: BP 145/73
[2019-09-08] MEDS: IPRATROPIUM 0.5MG/ALBUTEROL 2.5MG INH SOL UD 3ML (DUONEB)(J7620) NEB SCH ×3 (01:17→11:00)
[2019-09-08] MEDS: methylPREDNISolone INJ 40 MG/1 ML VIAL (J2920) IV SCH ×2 (03:06→09:25)
[2019-09-08] MEDS: PIPERACILLIN/TAZOBACTAM SOD 3.375 GM in D5W MINI-BAG PLUS 50 ML IV SCH ×3 (03:07→15:10)
[2019-09-08 06:16] VITALS: BP 150/81
[2019-09-08] MEDS: HumaLOG INSULIN (NovoLOG) PER UNIT SC SCH ×3 (06:17→12:00)
[2019-09-08] MEDS: TUDORZA 400 MCG INH SCH (07:41)
[2019-09-08] MEDS: FORMOTEROL FUMARATE 20 MCG/2 ML INHALATION SOLUTION (PERFOROMIST) INH SCH (07:41)
[2019-09-08] MEDS: BUDESONIDE 0.5 MG/2 ML INHALATION SUSPENSION INH SCH (07:41)
[2019-09-08] MEDS: VITAMIN D 1,000 INTERNATIONAL UNITS TABLET PO SCH (09:24)
[2019-09-08 09:25] VITALS: BP 150/81
[2019-09-08] MEDS: BRIMONIDINE 0.1% OPHTH SOLN 5 ML OU SCH (09:25)
[2019-09-08] MEDS: ASCORBIC ACID 500 MG TAB PO SCH (09:25)
[2019-09-08] MEDS: FOLIC ACID 1 MG TAB PO SCH (09:25)
[2019-09-08] MEDS: FERROUS SULFATE 325MG TAB PO SCH (09:25)
[2019-09-08] MEDS: guaiFENesin ER 600 MG TAB PO SCH (09:25)
[2019-09-08] MEDS: OMEPRAZOLE 20 MG CAP PO SCH (09:25)
--- NOTE | 2019-09-08 10:55 | IPNPDOC ---
Subjective Date Seen The patient was seen on 09/08/19. Subjective Chief Complaint/HPI Seen and examined at bedside, awake and alert, d/w nurse. General: Reports: Normal Appetite; Denies: Chills, Night Sweats, Fatigue, Malaise Constitutional: Denies: Chills, Fever, Night Sweats Eyes: Denies: Pain, Vision change ENT: Denies: Head Aches, Ear Pain, Dysphagia Skin: Denies: Rash, Lesions, Breakdown Pulmonary: Denies: Dyspnea, Cough Cardiovascular: Denies: Chest Pain, Palpitations, Orthopnea, Paroxysmal Noc. Dyspnea, Lt Headedness Gastrointestinal: Denies: Nausea, Vomiting, Abdominal Pain, Diarrhea, Constipation Genitourinary: Denies: Dysuria, Frequency, Incontinence, Retention Hematologic: Denies: Bruising, Bleeding Excessively Musculoskeletal: Denies: Neck Pain, Back Pain, Joint Pain, Muscle Pain, Spasms Neurological: Denies: Weakness, Numbness, Change in speech, Confusion Psych: Reports: Mood Normal; Denies: Depression, Memory Issues Objective Physical Examination General Exam: Positive: Alert, No Acute Distress Eye Exam: Positive: PERRLA, Conjunctiva & lids normal, EOMI; Negative: Sclera icteric ENT Exam: Positive: Atraumatic, Mucous membr. moist/pink, Pharynx Normal Neck Exam: Positive: Supple; Negative: JVD, thyromegaly Chest Exam: Positive: Clear to auscultation, Normal air movement, Diminished Heart Exam: Positive: Rate Normal, Regular Rhythm, Normal S1, Normal S2; Negative: Murmurs, Rubs Telemetry: Positive: No significant arrhythmia Abdomen Exam: Positive: Normal bowel sounds, Soft; Negative: Tenderness, Hepatospenomegaly Male Exam: Positive: Normal Genital Exam Extremity Exam: Positive: Normal pulses; Negative: Clubbing, Cyanosis, Edema Skin Exam: Positive: Nl turgor and temperature; Negative: Breakdown, Lesion Neuro Exam: Positive: Normal Gait, Normal Speech, Cranial Nerves 3-12 NL, Reflexes 2+ Psych Exam: Positive: Mental status NL, Mood NL, Oriented x 3 Assessment /Plan Assessment 1. acute exacerbation of bronchiectasis/acute bronchitis - sputum cultures/stain, blood cultures, strep/legionella, respiratory panel rhinovirus positive, covid pending. - droplet/contact precautions. - CT chest with ?L sided infiltrate. - on IV zosyn. - duonebs/albuterol prn, supplemental oxygen, IV steroids. - seen by DELILAH Davis. - procalcitonin pending. - rhinovirus positive, f/u procalcitonin to determine need for continued a ntibiotics. 2. hypoglycemia - resolved. - hold oral medications, monitor FSBS. - SSI coverage. 3. MYKEL - continue home CPAP. 4. HTN - continue cardizem. Plan/VTE VTE Prophylaxis Ordered?: Yes VS, I&O, 24H, Fishbone Vital Signs/I&O Vital Signs Date Time Temp Pulse Resp B/P (MAP) Pulse Ox O2 Delivery O2 Flow Rate FiO2 09/08/19 09:25 82 150/81 09/08/19 09:22 2.0 09/08/19 06:16 97.8 20 98 Nasal Cannula I&O- Last 24 Hours up to 6 AM 09/08/19 06:00 Intake Total 3750 ml Output Total 4840 ml Balance -1090 ml Laboratory Data 24H LABS Laboratory Tests 2 09/07/19 10:58: Blood Gas Bicarbonate Standard 25.9, Arterial Blood pH 7.507H, Arterial Blood Partial Pressure CO2 31.0L, Arterial Blood Partial Pressure O2 78.3, Arterial Blood Total CO2 25.0, Arterial Blood HCO3 24.0, Arterial Blood Base Excess 1.7, Arterial Blood Oxygen Saturation 95.8 09/07/19 11:43: Bedside Glucose (Misc Panel) 233H 09/07/19 16:56: Bedside Glucose (Misc Panel) 283H 09/07/19 23:56: Bedside Glucose (Misc Panel) 343H 09/08/19 06:14: Bedside Glucose (Misc Panel) 258H Microbiology Microbiology 09/05/19 Gram Stain - Final, Complete 09/05/19 Sputum Culture - Final, Complete 09/05/19 Blood Culture - Preliminary, Resulted No Growth after 48 hours. All Specime... 09/05/19 Coronavirus COVID-19 PCR ([facility]), Received Pending 09/05/19 Respiratory Virus Panel (PCR) ([facility]) - Final, Complete Human Rhinovirus/Enterovirus 09/05/19 Blood Culture - Preliminary, Resulted No Growth after 48 hours. All Specime... 09/05/19 Blood Culture - Preliminary, Resulted No Growth after 48 hours. All Specime... JADE DAWN MD Sep 08, 2019 10:55
[2019-09-08 13:06] VITALS: BP 136/83
[2019-09-08] MEDS ORDERED: PRED20TA PO (14:19)
[2019-09-08] MEDS ORDERED: AUGM500T34 PO (14:19)
--- NOTE | 2019-09-08 14:19 | IPN ---
DATE: 09/08/2019 Casey is feeling better today. He wants to go home. He does not want to stay in the hospital worried about getting infected from COVID while in the hospital. He was able to bring up some phlegm yesterday which was grayish in color and that has helped with his breathing. He had heliox treatment this morning and is getting that treatment every 4 hours. LABS: Respiratory panel was positive for human rhinovirus enterovirus. Sputum culture was normal sukhi. MEDICATIONS: Currently day number day 4 of IV Zosyn. LABORATORY DATA: None were drawn today. Procalcitonin is pending from yesterday. PHYSICAL EXAMINATION: Temperature is 98.7, pulse 93, respirations 18, blood pressure 136/83, O2 sat 94% on room air. HEART: Normal S1-S2. No murmurs appreciated. LUNGS: Better air entry with few expiratory rhonchi bilaterally and few exterior wheezes. His breath sounds are diminished in general, but he has improved from yesterday. ABDOMEN: Soft, nontender. No hepatosplenomegaly. EXTREMITIES: No clubbing, cyanosis or edema. IMPRESSION: 1. COPD exacerbation most likely related to viral infection, enterovirus/rhinovirus. There is a questionable left lower lobe infiltrate ill defined along the left hemidiaphragm. The patient does not have COVID and has not been exposed, does not have any of the typical presentation. 2. Advanced chronic obstructive pulmonary disease (COPD). Oxygenating well on his baseline O2, doing better with heliox treatments. PLAN: Discharge the patient home this afternoon per his wishes and since he is clinically stable. I have discussed the case with his counter help, Dr. Kline who recommended his prednisone to be 40 mg for 1 week, 35 mg second week, 30 mg third week, 25 mg fourth week, and then back to his 20 mg baseline. The urine Legionella antigen and pneumococcal antigen are pending. He is to call pulmonary a week after discharge. He does not need to followup with infectious disease as an outpatient. The patient would like to be discharged home later this afternoon. Would suggest also giving him another 5 days of Augmentin for possibility of left lower lobe infiltrate. He has received a four day course of IV Zosyn.
[2019-09-08] MEDS ORDERED: PRED5TA PO (14:43)
--- NOTE | 2019-09-08 15:03 | DS.PDOC ---
Discharge Summary General Date of Admission Sep 05, 2019 at 13:14 Date of Discharge 09/08/19 Discharge Summary PROCEDURES PERFORMED DURING STAY: [None]. ADMITTING DIAGNOSES: 1. COPD exacerbation DISCHARGE DIAGNOSES: 1. COPD exacerbation COMPLICATIONS/CHIEF COMPLAINT: Difficulty Breathing. HISTORY OF PRESENT ILLNESS: Please refer to admission history and physical for detailed HPI. HOSPITAL COURSE: Patient was admitted to the hospital and treated for following conditions: 1. acute exacerbation of bronchiectasis/acute bronchitis - started on IV steroids, duonebs, IV zosyn. - sputum cultures/blood cultures negative, strep/legionella pending, respiratory panel rhinovirus positive, covid pending. - seen by DELILAH Davis, unlikely Covid infection, taken off contact/droplet precautions. - rhinovirus positive. - patient improved on IV steroids and duonebs, is now at baseline oxygen requirement. - cleared for discharge home, will continue prednisone taper, augmentin BID x 7 days, outpatient follow up with pulmonary in 1 week. 3. MYKEL - continue home CPAP. 4. HTN - continue cardizem. DISCHARGE MEDICATIONS: Please see below. ALLERGIES: Please see below. PHYSICAL EXAMINATION ON DISCHARGE: VITAL SIGNS: Please see below. GENERAL: awake, alert, NAD HEENT: NCAT, anicteric sclera, PERRLA/EOMI NECK: supple, no JVD, no masses/thyromegaly CARDIOVASCULAR EXAMINATION: NS1S2, regular, no M/R/G RESPIRATORY EXAMINATION: CTA b/l, no wheezes/rales/rhonchi ABDOMINAL EXAMINATION: NT/ND, positive bowel sounds x 4 EXTREMITIES: no cyanosis, clubbing, edema SKIN: warm, no rashes NEUROLOGICAL EXAMINATION: AAO x 3, no focal motor/sensory deficits PSYCHIATRIC EXAMINATION: calm, cooperative, normal affect LABORATORY DATA: Please see below. IMAGING: CT chest: New mild ill-defined infiltrate along the left hemidiaphragm. Diffuse bilateral scarring is otherwise stable. PROGNOSIS: good ACTIVITY: [As tolerated]. DIET: diabetic diet DISPOSITION: home DISCHARGE INSTRUCTIONS: 1. please follow up with pulmonary in 1 week. ITEMS TO FOLLOWUP ON ON OUTPATIENT: 1. Covid-19 testing DISCHARGE CONDITION: [Stable]. TIME SPENT ON DISCHARGE: Greater than [30] minutes. Vital Signs/I&Os Vital Signs Date Time Temp Pulse Resp B/P (MAP) Pulse Ox O2 Delivery O2 Flow Rate FiO2 09/08/19 13:06 98.7 93 18 136/83 (100) 94 Nasal Cannula 2.0 I&O- Last 24 Hours up to 6 AM 09/08/19 06:00 Intake Total 3750 ml Output Total 4840 ml Balance -1090 ml Laboratory Data Labs 24H Laboratory Tests 2 09/07/19 16:56: Bedside Glucose (Misc Panel) 283H 09/07/19 23:56: Bedside Glucose (Misc Panel) 343H 09/08/19 06:14: Bedside Glucose (Misc Panel) 258H 09/08/19 13:02: Bedside Glucose (Misc Panel) 258H FSBS Laboratory Tests Test 09/07/19 16:56 09/07/19 23:56 09/08/19 06:14 09/08/19 13:02 Range/Units Bedside Glucose (Misc Panel) 283 343 258 258 80-115 MG/DL Microbiology Microbiology 09/05/19 Gram Stain - Final, Complete 09/05/19 Sputum Culture - Final, Complete 09/05/19 Blood Culture - Preliminary, Resulted No Growth after 48 hours. All Specime... 09/05/19 Coronavirus COVID-19 PCR ([facility]), Received Pending 09/05/19 Respiratory Virus Panel (PCR) ([facility]) - Final, Complete Human Rhinovirus/Enterovirus 09/05/19 Blood Culture - Preliminary, Resulted No Growth after 72 hours. All specime... 09/05/19 Blood Culture - Preliminary, Resulted No Growth after 72 hours. All specime... Discharge Medications Scheduled Aclidinium [place] (Tudorza Pressair) 400 Mcg Aer.pow.ba, 1 PUFF INH BID, (Reported) Albuterol Sulf (Albuterol Sulfate) 2.5 Mg/3 Ml Nebu, 2.5 MG INH QID, (Reported) MIXES WITH IPRATROPIUM Amoxicillin/Potassium Clav (Augmentin 500-125 Tablet) 1 Each Tablet, 1 TAB PO BID Ascorbic Acid (Ascorbic Acid) 500 Mg Tablet, 1,000 MG PO DAILY, (Reported) Brimonidine Tartrate (Alphagan P) 0.1% 5ML Drops, 1 DROP OU BID, (Reported) USES MORNING/DINNERTIME Budesonide (Pulmicort) 0.5 Mg/2 Ml Mely, 0.5 MG INH BID, (Reported) USED WITH PERFOROMIST, USES 30MIN AFTER ALBUTEROL/IPRATROPIUM NEB Calcium Citrate/Vitamin D3 (Calcium Citrate-Vit D3 Caplet) 1 Tab Tab, 1 TAB PO BID, (Reported) Cefdinir (Cefdinir) 300 Mg Capsule, 300 MG PO BID, (Reported) TOOK LAST DOSE THIS 09/05/2019. WAIT 2 DAYS THEN START CIPROFLOXACIN. Cholecalciferol (Vitamin D3) (Vitamin D3) 1,000 Unit Tablet, 2,000 UNITS PO DAILY, (Reported) Ciprofloxacin HCl (Ciprofloxacin HCl) 500 Mg Tablet, 500 MG PO BID, (Reported) WAIT TWO DAYS THEN START 14 DAY COURSE ON 09/07/2019 Citalopram Hydrobromide (Celexa) 20 Mg Tablet, 20 MG PO QHS, (Reported) Clopidogrel Bisulfate (Plavix) 75 Mg Tab, 75 MG PO QHS, (Reported) Diltiazem HCl (Diltiazem 24Hr ER) 240 Mg Cap, 240 MG PO DAILY, (Reported) Famotidine (Famotidine) 40 Mg Tablet, 40 MG PO QHS, (Reported) Ferrous Sulfate (Ferrous Sulfate) 325 Mg Tab, 325 MG PO DAILY, (Reported) Folic Acid (Folic Acid) 1 Mg Tab, 1 MG PO DAILY, (Reported) Formoterol Fumarate (Perforomist) 20 Mcg/2 Ml Neb, 20 MCG INH BID, (Reported) USED WITH PULMICORT, USES 30MIN AFTER ALBUTEROL/IPRATROPIUM NEB Glimepiride (Glimepiride) 4 Mg Tab, 4 MG PO DAILY, (Reported) WILL TAKE SECOND DOSE IF BS READS HIGH Guaifenesin (Mucinex) 1,200 Mg Tab.er.12h, 1,200 MG PO BID, (Reported) Ibandronate Sodium (Boniva) 150 Mg Tablet, 150 MG PO QMONTH, (Reported) TAKES ON 10TH OF EACH MONTH Immun Glob G(IgG)/Pro/Iga 0-50 (Hizentra 1 Gram/5 ml Vial) 1 Gm/5 Ml Vial, 14 MG SC QWEEK, (Reported) Ipratropium [place] (Ipratropium [place]) 0.5 Mg/2.5 Ml Soln, 0.5 MG INH QID, (Reported) MIXES WITH ALBUTEROL L.acidoph/L.bulg/B.bif/S.therm (Bacid Caplet) 1 Each Tablet, 1 TAB PO DAILY, (Reported) Metformin HCl (Metformin HCl) 500 Mg Tab, 500 MG PO BID, (Reported) Montelukast Sodium (Singulair) 10 Mg Tab, 10 MG PO QHS, (Reported) Omeprazole (Omeprazole) 40 Mg Cap, 40 MG PO DAILY, (Reported) Pitavastatin Calcium (Livalo) 2 Mg Tablet, 2 MG PO QHS, (Reported) Prednisone (Prednisone) 5 Mg Tablet, 1 TAB PO DAILY 40mg daily x 7 days, then 35mg daily x 7 days, then 30mg daily x 7 days, then 25mg daily x 7 days. Sulfamethoxazole/Trimethoprim (Bactrim Ds Tablet) 1 Each Tablet, 1 TAB PO 3XW, (Reported) MON/WED/WED Travoprost (Travatan Z) 50 Drop/2.5 Ml Soln, 1 DROP OU QHS, (Reported) Vitamin B Complex (Vitamin B Complex) 1 Each Tablet, 1 TAB PO DAILY, (Reported) Scheduled PRN Clotrimazole (Clotrimazole) 10 Mg Troc, 10 MG MT Q2H PRN for THRUSH, (Reported) Mupirocin (Mupirocin) 22 Gm Oint...g., 1 APLCT TOP TID PRN for SORES, (Reported) APPLY TO NARES AND UPPER LIP Neomycin/Bacitracin/Polymyxinb (Triple Antibiotic Ointment) 28 Gm Oint...g., 1 APLCT TOP BID PRN for SORES, (Reported) APPLY TO NARES AND UPPER LIP Nitroglycerin (Nitrostat) 0.4 Mg Subl, 0.4 MG SL NITRO PRN for CHEST PAIN, (Reported) Nystatin (Nystatin Oral Susp) 5 Ml Susp, 4 ML SSP QID PRN for THRUSH, (Reported) Allergies Coded Allergies: fexofenadine (Verified Allergy, Severe, anaphylaxis, 09/05/19) quinidine (Verified Allergy, Intermediate, HIVES, 09/05/19) metoprolol (Verified Adverse Reaction, Intermediate, d/t lung condition, 09/05/19) pravastatin (Verified Adverse Reaction, Intermediate, MUSCLE WEAKNESS, 09/05/19) aspirin (Verified Adverse Reaction, Mild, RECTAL BLEEDING, 09/05/19) furosemide (Verified Adverse Reaction, Mild, dizziness, 09/05/19) levofloxacin (Verified Adverse Reaction, Mild, MUSCLE CRAMPING, 09/05/19) JADE DAWN MD Sep 08, 2019 14:47
[2019-09-09 00:06] LABS: BODY FLUID CULTURE Not indicated. (.); LEGIONELLA ANTIGEN URINE Negative (Negative); ORGANISM ID Not indicated. (.); SPECIMEN SOURCE Urine (.); URINE STREP PNEUMONIAE ANTIGEN Negative (Negative)
== END 2019-09-08 16:45 | disposition home health service (06) | DRG 202 ==
LOC: M ED 09:30 → M ED INP 13:14 → ENRESERVDT 13:27 → ENRESERVTM 13:27 → M MS5PR 14:31
PROVIDERS: ADMIT Internal Medicine; ATTEND Internal Medicine
DX: J20.6 Acute bronchitis due to rhinovirus (principal); J96.11 Chronic respiratory failure with hypoxia; D83.9 Common variable immunodeficiency, unspecified; J44.0 Chronic obstructive pulmonary disease with (acute) lower respiratory infection; J44.1 Chronic obstructive pulmonary disease with (acute) exacerbation; I25.10 Atherosclerotic heart disease of native coronary artery without angina pectoris; E11.51 Type 2 diabetes mellitus with diabetic peripheral angiopathy without gangrene; H93.90 Unspecified disorder of ear, unspecified ear; H40.9 Unspecified glaucoma; Z66 Do not resuscitate; G47.33 Obstructive sleep apnea (adult) (pediatric); I10 Essential (primary) hypertension; F32.9 Major depressive disorder, single episode, unspecified; Z95.3 Presence of xenogenic heart valve; Z95.5 Presence of coronary angioplasty implant and graft; Z95.820 Peripheral vascular angioplasty status with implants and grafts; E11.649 Type 2 diabetes mellitus with hypoglycemia without coma; Z79.52 Long term (current) use of systemic steroids; Z79.02 Long term (current) use of antithrombotics/antiplatelets; Z88.6 Allergy status to analgesic agent; Z88.1 Allergy status to other antibiotic agents; Z88.8 Allergy status to other drugs, medicaments and biological substances; Z11.59 Encounter for screening for other viral diseases

== ENCOUNTER 2019-10-05 09:12 | Inpatient (IN) | payer MEDICARE, OTHER ==
[~2019-10-05] VITALS: Ht 172.7 cm; Wt 74.7 kg
[~2019-10-05 09:12] MED LIST changes: +AUGM500T34 PO; +COMMENTS; +PRED5TA PO; +VITAD1000T PO
[2019-10-05 09:57] LABS: BASO % 0.3 % (0.0-1.0); EOS # 0.1 10^3/uL (0.0-0.5); EOS % 0.7 % (0.0-3.0); HEMATOCRIT 40.1 % (42.0-52.0); HEMOGLOBIN 13.7 g/dl (13.5-17.5); LYMPH # 1.2 10^3/uL (1.5-5.0); LYMPH % 7.6 % (24.0-44.0); MEAN CORPUSCULAR HEMOGLOBIN 32.7 pg (27.0-33.0); MEAN CORPUSCULAR HGB CONC 34.2 g/dl (32.0-36.5); MEAN CORPUSCULAR VOLUME 95.7 fl (80.0-96.0); MONO # 0.9 10^3/uL (0.0-0.8); MONO % 5.5 % (0.0-5.0); NEUTROPHILS # 13.3 10^3/uL (1.5-8.5); NEUTROPHILS % 85.2 % (36.0-66.0); PLATELET COUNT, AUTOMATED 281 10^3/uL (150-450); RED BLOOD COUNT 4.19 10^6/uL (4.30-6.10); WHITE BLOOD COUNT 15.7 10^3/uL (4.0-10.0)
[2019-10-05] MEDS ORDERED: COMBIVENT RESPIMAT 100-20MCG INHALER 4GM INH ONE (10:00)
[2019-10-05] MEDS ORDERED: methylPREDNISolone INJ 125 MG/2 ML VIAL (J2930) IV ONE (10:00)
[2019-10-05] MEDS ORDERED: NS 500 ML IV ONE (10:00)
[2019-10-05 10:11] LABS: INR 0.95; PROTHROMBIN TIME 12.4 SECONDS (11.8-14.0)
[2019-10-05 10:33] LABS: ALBUMIN 3.6 GM/DL (3.2-5.2); ALT/SGPT 32 U/L (12-78); BILIRUBIN,DIRECT 0.1 MG/DL (0.0-0.2); BILIRUBIN,TOTAL 0.5 MG/DL (0.2-1.0); BLOOD UREA NITROGEN 18 MG/DL (7-18); CALCIUM LEVEL 9.8 MG/DL (8.8-10.2); CARBON DIOXIDE LEVEL 27 MEQ/L (21-32); CHLORIDE LEVEL 102 MEQ/L (98-107); CK-MB VALUE MASS 1.5 NG/ML (<3.6); CPK CREATINE PHOSPHOKINASE 89 U/L (39-308); CREATININE FOR GFR 1.04 MG/DL (0.70-1.30); GLOMERULAR FILTRATION RATE > 60.0 (>49); GLUCOSE, FASTING 47 MG/DL (70-100); MB/CK RELATIVE INDEX 1.69 (< OR =4); POTASSIUM SERUM 3.3 MEQ/L (3.5-5.1); SODIUM LEVEL 136 MEQ/L (136-145); THYROXINE (T4) 5.4 UG/DL (4.5-12.0); TOTAL PROTEIN 7.6 GM/DL (6.4-8.2)
--- NOTE | 2019-10-05 10:37 | REP ---
REASON: Cough and dyspnea. COMPARISON: Multiple, the latest 09/05/2019. The technique utilized in obtaining the radiograph has magnified the cardiac silhouette and accentuated the interstitial markings. The cardiomediastinal silhouette and lung rodriguez are unchanged. Chronic bibasilar changes are noted status quo, right greater than left. No acute patchy parenchymal opacities or pleural effusions have developed. There is no change in the osseous structures. IMPRESSION: Stable appearing chronic changes. Electronically Signed by Cornelius Andrade DO 10/05/2019 11:00 A
[2019-10-05] MEDS ORDERED: DEXTROSE 50% 50 ML SYRINGE IV STA (10:49)
[2019-10-05 13:21] LABS: CK-MB VALUE MASS 1.1 NG/ML (<3.6); MB/CK RELATIVE INDEX 1.33 (< OR =4); TROPONIN I 0.29 NG/ML (< 0.10)
[2019-10-05] MEDS ORDERED: cefTRIAXone SOD 1 GM in D5W MINI-BAG PLUS 50 ML IV ONE (13:30)
[2019-10-05] MEDS ORDERED: DOXYCYCLINE HYCLATE 100 MG in D5W MINI-BAG PLUS 100 ML IV ONE (13:30)
--- NOTE | 2019-10-05 14:01 | REP ---
CT CHEST WITHOUT IV CONTRAST: CT chest performed without IV contrast. Sagittal and coronal reconstruction images are performed. Comparison made with a prior study of 09/05/2019. New scattered diffuse infiltrate is seen in the right lower lobe posteriorly and inferiorly. There is a slight increase in the previously noted left lower lobe infiltrate just above the diaphragm. More superiorly, there are scattered chronic pleural and parenchymal fibrotic changes which appear stable. There is again mild elevation of the right hemidiaphragm. There is no axillary or mediastinal adenopathy. There is moderate atherosclerotic calcification of the abdominal aorta without aneurysm. Ectasia is again noted of the ascending thoracic aorta. There is no pleura or pericardial effusion. The heart is normal in size. There are stable compression deformities of the thoracic vertebral bodies. IMPRESSION: New diffuse inferior right lower lobe infiltrate. Slight increase in left lower lobe infiltrate. No other acute findings. Electronically Signed by Choco Schneider MD 10/05/2019 02:43 P
[2019-10-05] MEDS ORDERED: DEXTROSE 50% 50 ML SYRINGE IV PRN (14:30)
[2019-10-05] MEDS ORDERED: GLUCAGON INJ 1MG VIAL SC PRN (14:30)
[2019-10-05] MEDS ORDERED: GLUCOSE 4GM CHEW TABLET PO PRN (14:30)
[2019-10-05] MEDS ORDERED: BACT800T5 PO (14:52)
[2019-10-05] MEDS ORDERED: FLUC200T2 PO (14:52)
[2019-10-05] MEDS ORDERED: PRED20TA PO (14:56)
[2019-10-05] MEDS ORDERED: VANCOMYCIN HCL 500 MG in D5W MINI-BAG PLUS 100 ML IV SCH (15:00)
[2019-10-05] MEDS ORDERED: MUPIROCIN 2% OINT 22 GM TUBE TOP PRN (15:30)
[2019-10-05] MEDS ORDERED: CLOTRIMAZOLE 10 MG TROCHE MT PRN (15:30)
[2019-10-05] MEDS ORDERED: NEOSPORIN TOP OINT 15GM TOP PRN (15:30)
[2019-10-05] MEDS ORDERED: BACTRIM 160MG/800MG DS TAB PO SCH (15:30)
[2019-10-05] MEDS ORDERED: NYSTATIN 500,000 U/5 ML SUSP UDC SSP PRN (15:30)
[2019-10-05] MEDS ORDERED: CIPROFLOXACIN 500MG TABLET PO SCH (15:30)
[2019-10-05] MEDS ORDERED: CEFDINIR 300 MG CAP (OMNICEF) PO SCH (15:30)
[2019-10-05] MEDS ORDERED: ENTER DRUG NAME HERE (PATIENT'S OWN MED) SC SCH (15:45)
--- NOTE | 2019-10-05 15:45 | HPEPDOC ---
[facility] Medical History & Physical Date of Admission Oct 05, 2019 Date of Service: Oct 05, 2019 Attending Physician: MAG HERNANDEZ MD History and Physical PRIMARY CARE PROVIDER: Blaze Ruano ATTENDING: Dr. Mag Hernandez CHIEF COMPLAINT: SOB HISTORY OF PRESENT ILLNESS: Patient is a 68 year old male presenting with chief complaint of shortness of breath. He states for the past 2 days he has had intermittent fevers, chills, cough productive of green sputum, and worsening shortness of breath causing him to present to [facility] ED. He denies any recent, sick contacts, exposures or changes in the last month and states he has stayed at home with his , daughter, and grandchildren who practice safe social distancing. Of note, he does report he has mostly been sitting in his chair at home all day watching tv and using his incentive spirometer only twice daily. In the ED, he was found to have an elevated WBC count and imaging findings consistent with RLL pneumonia so the hospitalist service was called for admission. 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 CAD s/p stents PAD s/p left femoral endarterectomy and right stenting Diabetes Glaucoma hearing impairment MYKEL on CPAP hypertension depression h/o Aortic stenosis with Aortic valve replaced with bioprosthetic valve chronic thoracic vertebral body compression fracture Iron deficiency Vit B12 deficiency Oral thrush osteoporosis PAST SURGICAL HISTORY: Invasive aortic valve replacement with bioprosthetic valve Cardiac stents x 13 Eyelid procedure Tongue biopsy Left femoral endarterectomy with patch repair recently in March 2018 Stent in right leg 04/2018 SOCIAL HISTORY: Denies alcohol use, Quit smoking 10 years ago, denies any marijuana, heroin, cocaine, or PCP use. Lives at home with , daughter, three grandchildren. FAMILY HISTORY: FATHER: , HEART ATTACK MOTHER: ALIVE SIBLINGS: , SISTER HOUSE FIRE SON(S): ALIVE DAUGHTER(S): ALIVE 2 BROTHER(S) , 6 SISTER(S) - HEALTHY 1 SON(S) , 1 DAUGHTER(S) -HEALTHY. ALLERGIES: Please see below. REVIEW OF SYSTEMS: GENERAL: Denies recent unexpected weight change, night sweats, hemoptysis HEENT: Denies headache, dizziness, vision changes, hearing loss, sore throat CARDIOVASCULAR: Denies chest pain, palpitations, orthopnea RESPIRATORY: Denies wheezing GASTROINTESTINAL: denies nausea, vomiting, abdominal pain, constipation, diarrhea, bloody stool GENITOURINARY: Denies dysuria,urinary urgency, hematuria. MUSCULOSKELETAL: Denies muscle/joint pain, weakness, stiffness NEUROLOGICAL: Denies any numbness/tingling, focal weakness, or syncope HOME MEDICATIONS: Please see below. PHYSICAL EXAMINATION: Vitals: (see below) General: No acute distress, sitting up comfortably in bed, no accessory muscle use, speaking in full sentences, no increased WOB. HEENT: Normocephalic, atraumatic. EOMI. No scleral icterus. Moist mucous membranes. No pharyngeal erythema or uvular deviation. Neck: No JVD, lymphadenopathy, or thyromegaly. Cardiac: RRR, Normal S1 and S2, No murmurs, gallops, rubs. Pulm: Clear to auscultation b/l. Symmetric thorax. Inspiratory rhonchi with prolonged expiratory phase, no wheezing or crackles. Abd: Bowel Sounds present. Abdomen is soft, non-tender, non-distended. No guarding, rebound tenderness, or rigidity. Ext: trace pitting edema of bilateral LE. Neuro: No focal neuro deficits. LABORATORY DATA: See below. IMAGING: MICROBIOLOGY: Please see below. ASSESSMENT/PLAN: #. Right lower lobe pneumonia -History, physical, and imaging findings consistent with right lower lobe pneumonia. -Broad-spectrum antibiotic coverage Vanc/Zosyn, giving IVF bolusx2 total, repeating lactic acid level, pro-calcitonin ordered -Incentive spirometry ordered as CT showing fairly prominent atelectasis as well #. Lactic acidosis -NS bolus given in ED, repeating NS bolusx1, suspect this is from the underlying pneumonia #. Elevated troponin level -Down trending, likely 2/2 demand ischemia from infection #. COPD steroid and O2 dependent - Home Nebs with heliox - Continue home O2, titrate for 88-92% - Continue prednisone, perforomist, atrovent, singulair, converting to home LAMA to spiriva #. Bronchiectasis -Continue on alternating antibiotics cycles of 2 week on and 2 weeks off {alternating between cefdinir/ ciprofloxacin/} #. Oral thrush likely 2/2 albuterol -Continue home nystatin, fluconazole #. 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 CAD s/p stents and PAD s/p left femoral endarterectomy and right stenting - Continue home plavix #. T2DM -Sliding scale - Consistent carb diet #. MYKEL on CPAP -May use home CPAP settings #. Glaucoma -Continue home meds #. GERD - Continue home omeprazole #. Depression - Continue home citalopram #. Iron deficiency -Continue home iron supplementation #. Sepsis -[place] sepsis as he is SIRS+ with source of infection. He is also being treated with broad spectrum abx and receiving IV fluids, though they are not at a 30cc/kg dose as I do not feel it is warranted since he appears euvolemic. However, I do not feel he exhibits signs of end organ dysfunction and so from a clinical standpoint does not meet sepsis criteria. -DVT prophy: heparin -GI prophylaxis: omeprazole Attending attestation: I evaluated and examined the patient in person; I discussed the care with Resident in detail and agree with the plan above. Vital Signs Vital Signs Date Time Temp Pulse Resp B/P (MAP) Pulse Ox O2 Delivery O2 Flow Rate FiO2 10/05/19 14:30 93 18 150/92 (111) 93 Nasal Cannula 2.0 10/05/19 12:45 98.0 Laboratory Data Labs 24H Laboratory Tests 2 10/05/19 09:38: Immature Granulocyte % (Auto) 0.7, Neutrophils (%) (Auto) 85.2H, Lymphocytes (%) (Auto) 7.6L, Monocytes (%) (Auto) 5.5H, Eosinophils (%) (Auto) 0.7, Basophils (%) (Auto) 0.3, Neutrophils # (Auto) 13.3H, Lymphocytes # (Auto) 1.2L, Monocytes # (Auto) 0.9H, Eosinophils # (Auto) 0.1, Basophils # (Auto) 0.0, Nucleated Red Blood Cells % (auto) 0.1H, Prothrombin Time 12.4, Prothromb Time International Ratio 0.95, Anion Gap 7L, Glomerular Filtration Rate > 60.0, Lactic Acid Level 2.1*H, Calcium Level 9.8, Total Bilirubin 0.5, Direct Bilirubin 0.1, Aspartate Amino Transf (AST/SGOT) 18, Alanine Aminotransferase (ALT/SGPT) 32, Alkaline Phosphatase 74, Total Creatine Kinase 89, Creatine Kinase MB 1.5, Creatine Kinase MB Relative Index 1.69, Troponin I 0.40H, ZW-Ith-P-Type Natriuretic Peptide 213H, Total Protein 7.6, Albumin 3.6, Albumin/Globulin Ratio 0.90L, Thyroid Stimulating Hormone (TSH) 1.620, Thyroxine (T4) 5.4 10/05/19 12:02: Bedside Glucose (Misc Panel) 125H 10/05/19 12:28: Total Creatine Kinase 83, Creatine Kinase MB 1.1, Creatine Kinase MB Relative Index 1.33, Troponin I 0.29#H CBC/BMP Laboratory Tests 10/05/19 09:38 Microbiology Microbiology 10/05/19 Gram Stain - Final, Resulted 10/05/19 Sputum Culture, Resulted Pending 10/05/19 Blood Culture, Received Pending 10/05/19 Blood Culture, Received Pending Home Medications Scheduled Aclidinium [place] (Tudorza Pressair) 400 Mcg Aer.pow.ba, 1 PUFF INH BID Albuterol Sulf (Albuterol Sulfate) 2.5 Mg/3 Ml Nebu, 2.5 MG INH QID MIXES WITH IPRATROPIUM Ascorbic Acid (Ascorbic Acid) 500 Mg Tablet, 1,000 MG PO DAILY Brimonidine Tartrate (Alphagan P) 0.1% 5ML Drops, 1 DROP OU BID USES MORNING/DINNERTIME Budesonide (Pulmicort) 0.5 Mg/2 Ml Mely, 0.5 MG INH BID USED WITH PERFOROMIST, USES 30MIN AFTER ALBUTEROL/IPRATROPIUM NEB Calcium Citrate/Vitamin D3 (Calcium Citrate-Vit D3 Caplet) 1 Tab Tab, 1 TAB PO BID Cefdinir (Cefdinir) 300 Mg Capsule, 1 CAP PO BID Cholecalciferol (Vitamin D3) (Vitamin D3) 1,000 Unit Tablet, 2,000 UNITS PO DAILY Citalopram Hydrobromide (Celexa) 20 Mg Tablet, 20 MG PO QHS Clopidogrel Bisulfate (Plavix) 75 Mg Tab, 75 MG PO QHS Diltiazem HCl (Diltiazem 24Hr ER) 240 Mg Cap, 240 MG PO DAILY Famotidine (Famotidine) 40 Mg Tablet, 40 MG PO QHS Ferrous Sulfate (Ferrous Sulfate) 325 Mg Tab, 325 MG PO DAILY Fluconazole (Fluconazole) 200 Mg Tablet, 200 MG PO QWEEK [place] Folic Acid (Folic Acid) 1 Mg Tab, 1 MG PO DAILY Formoterol Fumarate (Perforomist) 20 Mcg/2 Ml Neb, 20 MCG INH BID USED WITH PULMICORT, USES 30MIN AFTER ALBUTEROL/IPRATROPIUM NEB Glimepiride (Glimepiride) 4 Mg Tab, 4 MG PO BID Guaifenesin (Mucinex) 1,200 Mg Tab.er.12h, 1,200 MG PO BID Ibandronate Sodium (Boniva) 150 Mg Tablet, 150 MG PO QMONTH TAKES ON 10TH OF EACH MONTH Immun Glob G(IgG)/Pro/Iga 0-50 (Hizentra 1 Gram/5 ml Vial) 1 Gm/5 Ml Vial, 14 MG SC QWEEK SATURDAYS Ipratropium [place] (Ipratropium [place]) 0.5 Mg/2.5 Ml Soln, 0.5 MG INH QID MIXES WITH ALBUTEROL L.acidoph/L.bulg/B.bif/S.therm (Bacid Caplet) 1 Each Tablet, 1 TAB PO DAILY Metformin HCl (Metformin HCl) 500 Mg Tab, 500 MG PO BID Montelukast Sodium (Singulair) 10 Mg Tab, 10 MG PO QHS Omeprazole (Omeprazole) 40 Mg Cap, 40 MG PO DAILY Pitavastatin Calcium (Livalo) 2 Mg Tablet, 2 MG PO QHS Prednisone (Prednisone) 5 Mg Tablet, 5 MG PO DAILY Take 4 tabs (20mg) for 4 days, then take 3 tabs (15mg) for 7 days, take 2 tabs (10mg) for 7 days, take 1 tab (5mg) for 7 days. Sulfamethoxazole/Trimethoprim (Bactrim Ds Tablet) 1 Each Tablet, 1 TAB PO 3XW MON/WED/FRI Travoprost (Travatan Z) 50 Drop/2.5 Ml Soln, 1 DROP OU QHS Vitamin B Complex (Vitamin B Complex) 1 Each Tablet, 1 TAB PO DAILY Scheduled PRN Clotrimazole (Clotrimazole) 10 Mg Troc, 10 MG MT Q2H PRN for THRUSH Mupirocin (Mupirocin) 22 Gm Oint...g., 1 APLCT TOP TID PRN for SORES APPLY TO NARES AND UPPER LIP Neomycin/Bacitracin/Polymyxinb (Triple Antibiotic Ointment) 28 Gm Oint...g., 1 APLCT TOP BID PRN for SORES APPLY TO NARES AND UPPER LIP Nitroglycerin (Nitrostat) 0.4 Mg Subl, 0.4 MG SL NITRO PRN for CHEST PAIN Nystatin (Nystatin Oral Susp) 5 Ml Susp, 4 ML SSP QID PRN for THRUSH Allergies Coded Allergies: fexofenadine (Verified Allergy, Severe, anaphylaxis, 09/05/19) quinidine (Verified Allergy, Intermediate, HIVES, 09/05/19) metoprolol (Verified Adverse Reaction, Intermediate, d/t lung condition, 09/05/19) pravastatin (Verified Adverse Reaction, Intermediate, MUSCLE WEAKNESS, 09/05/19) aspirin (Verified Adverse Reaction, Mild, RECTAL BLEEDING, 09/05/19) furosemide (Verified Adverse Reaction, Mild, dizziness, 09/05/19) levofloxacin (Verified Adverse Reaction, Mild, MUSCLE CRAMPING, 09/05/19) A-FIB/CHADSVASC A-FIB History Current/History of A-Fib/PAF?: No GME ATTESTATION GME ATTESTATION My faculty preceptor for this patient encounter was physically present during the encounter and was fully available. All aspects of the patient interview, examination, medical decision making process, and medical care plan development were reviewed and approved by the faculty preceptor. The faculty preceptor is aware and concurs with the plan as stated in the body of this note and will attest to such by his/her cosignature. JOY KIRK DO Oct 05, 2019 15:44 MGA HERNANDEZ MD October 10, 2019 19:21
[2019-10-05 15:46] VITALS: BP 151/85
[2019-10-05] MEDS ORDERED: NS 1,000 ML IV ONE (16:00)
[2019-10-05] MEDS: IPRATROPIUM 0.5MG/ALBUTEROL 2.5MG INH SOL UD 3ML (DUONEB)(J7620) INH SCH ×2 (16:00→20:00)
[2019-10-05] MEDS ORDERED: ALBUTEROL SULFATE 2.5 MG/0.5 ML INH NEB SOLN INH SCH (16:00)
[2019-10-05] MEDS ORDERED: POTASSIUM CHLORIDE 10 MEQ SR TABLET PO ONE (16:15)
[2019-10-05 16:30] VITALS: O2SAT 95
[2019-10-05] MEDS: HumaLOG INSULIN (NovoLOG) PER UNIT SC SCH ×2 (17:10→21:51)
[2019-10-05] MEDS ORDERED: VANCOMYCIN HCL 1,000 MG, VIAL MATE ADAPTER 1 EACH in D5W 250 ML IV ONE (18:00)
[2019-10-05] MEDS ORDERED: VANCOMYCIN HCL 500 MG in D5W MINI-BAG PLUS 100 ML IV ONE (19:00)
[2019-10-05] MEDS: PIPERACILLIN/TAZOBACTAM SOD 4.5 GM in D5W MINI-BAG PLUS 100 ML IV SCH (20:08)
[2019-10-05] MEDS: BRIMONIDINE 0.1% OPHTH SOLN 5 ML OU SCH (20:08)
[2019-10-05] MEDS: LATANOPROST 0.005% OPHTH SOLN 2.5 ML OU SCH (20:08)
[2019-10-05] MEDS: CLOPIDOGREL 75 MG TAB PO SCH (20:09)
[2019-10-05] MEDS: CitaloPRAM (CeleXA) 20 MG TAB PO SCH (20:09)
[2019-10-05] MEDS: MONTELUKAST 10 MG TAB PO SCH (20:09)
[2019-10-05] MEDS: guaiFENesin ER 600 MG TAB PO SCH (20:09)
[2019-10-05] MEDS: FORMOTEROL FUMARATE 20 MCG/2 ML INHALATION SOLUTION (PERFOROMIST) INH SCH (20:14)
[2019-10-05] MEDS: BUDESONIDE 0.5 MG/2 ML INHALATION SUSPENSION INH SCH (20:14)
[2019-10-05] MEDS: HEPARIN SOD (PORCINE) 5000UNITS/ML VIAL (J1644 PER 1000UNITS) SC SCH (21:50)
[2019-10-05 22:00] VITALS: BP 125/65
[2019-10-06] MEDS: PIPERACILLIN/TAZOBACTAM SOD 4.5 GM in D5W MINI-BAG PLUS 100 ML IV SCH ×4 (01:32→20:50)
--- NOTE | 2019-10-06 01:51 | ECGEPIP ---
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
[2019-10-06] MEDS ORDERED: VANCOMYCIN HCL 1,000 MG, VIAL MATE ADAPTER 1 EACH in D5W 250 ML IV SCH (02:00)
[2019-10-06 04:19] LABS: HEMATOCRIT 35.6 % (42.0-52.0); HEMOGLOBIN 12.3 g/dl (13.5-17.5); MEAN CORPUSCULAR HEMOGLOBIN 33.2 pg (27.0-33.0); MEAN CORPUSCULAR HGB CONC 34.6 g/dl (32.0-36.5); MEAN CORPUSCULAR VOLUME 96.2 fl (80.0-96.0); PLATELET COUNT, AUTOMATED 234 10^3/uL (150-450); WHITE BLOOD COUNT 15.1 10^3/uL (4.0-10.0)
[2019-10-06 04:37] LABS: BLOOD UREA NITROGEN 17 MG/DL (7-18); CALCIUM LEVEL 8.7 MG/DL (8.8-10.2); CARBON DIOXIDE LEVEL 26 MEQ/L (21-32); CHLORIDE LEVEL 104 MEQ/L (98-107); CREATININE FOR GFR 0.88 MG/DL (0.70-1.30); GLOMERULAR FILTRATION RATE > 60.0 (>49); GLUCOSE, FASTING 214 MG/DL (70-100); POTASSIUM SERUM 4.3 MEQ/L (3.5-5.1); SODIUM LEVEL 136 MEQ/L (136-145)
[2019-10-06 06:00] VITALS: BP 146/84
[2019-10-06] MEDS: HEPARIN SOD (PORCINE) 5000UNITS/ML VIAL (J1644 PER 1000UNITS) SC SCH ×3 (06:32→22:15)
[2019-10-06] MEDS: FORMOTEROL FUMARATE 20 MCG/2 ML INHALATION SOLUTION (PERFOROMIST) INH SCH ×2 (07:42→19:21)
[2019-10-06] MEDS: BUDESONIDE 0.5 MG/2 ML INHALATION SUSPENSION INH SCH ×2 (07:42→19:22)
[2019-10-06] MEDS: TIOTROPIUM INHALER/CAPSULE (SPIRIVA) INH SCH (07:42)
[2019-10-06] MEDS: IPRATROPIUM 0.5MG/ALBUTEROL 2.5MG INH SOL UD 3ML (DUONEB)(J7620) INH SCH ×6 (07:43→19:22)
[2019-10-06] MEDS: HumaLOG INSULIN (NovoLOG) PER UNIT SC SCH ×4 (08:55→20:50)
[2019-10-06] MEDS: FERROUS SULFATE 325MG TAB PO SCH (08:56)
[2019-10-06] MEDS: OMEPRAZOLE 20 MG CAP PO SCH (08:56)
[2019-10-06] MEDS: LACTOBACILLUS ACIDOPHILUS CAP (BACID) PO SCH (08:56)
[2019-10-06] MEDS: FOLIC ACID 1 MG TAB PO SCH (08:56)
[2019-10-06] MEDS: BRIMONIDINE 0.1% OPHTH SOLN 5 ML OU SCH ×2 (08:59→20:50)
[2019-10-06] MEDS: guaiFENesin ER 600 MG TAB PO SCH ×2 (08:59→20:49)
[2019-10-06] MEDS ORDERED: predniSONE 5 MG TAB PO SCH (09:00)
[2019-10-06] MEDS ORDERED: FLUCONAZOLE 100 MG TAB PO SCH (09:00)
[2019-10-06 14:00] VITALS: BP 133/73; O2SAT 95
--- NOTE | 2019-10-06 15:52 | IPNPDOC ---
Text Note Date of Service The patient was seen on 10/06/19. NOTE SUBJECTIVE: Patient is a 68 year old male presented with a 2 day history of up per respiratory symptoms and diagnosed with RLL pneumonia. No acute events overnight, patient admits to mildly improved dyspnea, continues to have productive cough. Patient denies any fevers, chills, chest pain, abdominal pain, nausea, vomiting. States he has not been getting heliox with his nebulizer therapy. OBJECTIVE: PHYSICAL EXAMINATION: Vitals: (see below) General: No acute distress, sitting up comfortably in bed, no accessory muscle use, speaking in full sentences, no increased WOB. HEENT: Normocephalic, atraumatic. EOMI. No scleral icterus. Moist mucous membranes. No pharyngeal erythema or uvular deviation. Neck: No JVD, lymphadenopathy, or thyromegaly. Cardiac: RRR, Normal S1 and S2, No murmurs, gallops, rubs. Pulm: Clear to auscultation b/l. Symmetric thorax. Inspiratory rhonchi with prolonged expiratory phase, no wheezing or crackles. Abd: Bowel Sounds present. Abdomen is soft, non-tender, non-distended. No guarding, rebound tenderness, or rigidity. Ext: trace pitting edema of bilateral LE. Neuro: No focal neuro deficits. LABORATORY DATA, MICROBIOLOGY: Please see below. IMAGING STUDIES: ASSESSMENT/PLAN: #. Right lower lobe pneumonia -Continue Zosyn for broad spectrum coverage sputum culture pending, Vanc DC'd as MRSA pcr was negative. Pro-milton pending. Resp. panel negative. -Encourage incentive spirometry ordered as CT showing fairly prominent atelecta sis as well #. COPD steroid and O2 dependent - Home Nebs with heliox - Continue home O2, titrate for 88-92% - Continue prednisone, perforomist, atrovent, singulair, converting to home LAMA to spiriva #. Bronchiectasis -Continue on alternating antibiotics cycles of 2 week on and 2 weeks off {alter nating between cefdinir/ ciprofloxacin/} #. Lactic acidosis -Resolved #. Elevated troponin level -Down trending, likely 2/2 demand ischemia from infection #. Oral thrush likely 2/2 albuterol -Continue home nystatin, fluconazole #. 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 CAD s/p stents and PAD s/p left femoral endarterectomy and right stenting - Continue home plavix #. T2DM -Sliding scale - Consistent carb diet #. MYKEL on CPAP -May use home CPAP settings #. Glaucoma -Continue home meds #. GERD - Continue home omeprazole #. Depression - Continue home citalopram #. Iron deficiency -Continue home iron supplementation #. Sepsis -Patient meets N[facility] billing criteria for sepsis as he is SIRS+ with source of in fection. He was initially treated with broad spectrum abx and received IV fluids, though they were not at a 30cc/kg dose as it was not warranted. I do not feel he exhibits signs of end organ dysfunction and so from a clinical standpoint does not meet sepsis criteria. -DVT prophy: heparin -GI prophylaxis: omeprazole Attending attestation: I evaluated and examined the patient in person; I discussed the care with Resident in detail and agree with the plan above. VS,Fishbone, I+O VS, Fishbone, I+O Laboratory Tests 10/06/19 03:56 Vital Signs Date Time Temp Pulse Resp B/P (MAP) Pulse Ox O2 Delivery O2 Flow Rate FiO2 10/06/19 14:00 98.2 85 19 133/73 (93) 95 Room Air 10/06/19 06:00 2.0 I&O- Last 24 Hours up to 6 AM 10/06/19 06:00 Intake Total 2460 ml Output Total 1875 ml Balance 585 ml GME ATTESTATION GME ATTESTATION My faculty preceptor for this patient encounter was physically present during the encounter and was fully available. All aspects of the patient interview, examination, medical decision making process, and medical care plan development were reviewed and approved by the faculty preceptor. The faculty preceptor is aware and concurs with the plan as stated in the body of this note and will attest to such by his/her cosignature. JOY KIRK DO October 06, 2019 15:52 MAG HERNANDEZ MD October 10, 2019 19:25
[2019-10-06] MEDS: CLOPIDOGREL 75 MG TAB PO SCH (20:49)
[2019-10-06] MEDS: MONTELUKAST 10 MG TAB PO SCH (20:49)
[2019-10-06] MEDS: CitaloPRAM (CeleXA) 20 MG TAB PO SCH (20:49)
[2019-10-06] MEDS: LATANOPROST 0.005% OPHTH SOLN 2.5 ML OU SCH (20:50)
[2019-10-06 22:00] VITALS: BP 124/66
[2019-10-07] MEDS: IPRATROPIUM 0.5MG/ALBUTEROL 2.5MG INH SOL UD 3ML (DUONEB)(J7620) INH SCH ×7 (00:26→23:11)
[2019-10-07] MEDS: PIPERACILLIN/TAZOBACTAM SOD 4.5 GM in D5W MINI-BAG PLUS 100 ML IV SCH ×4 (01:27→20:24)
[2019-10-07 02:22] VITALS: O2SAT 97
[2019-10-07] MEDS: HEPARIN SOD (PORCINE) 5000UNITS/ML VIAL (J1644 PER 1000UNITS) SC SCH ×3 (05:49→22:44)
[2019-10-07] MEDS: ACETAMINOPHEN TAB 650MG DOSE (2X325MG) PO PRN ×2 (05:49→11:47)
[2019-10-07 06:00] VITALS: BP 138/76
[2019-10-07 06:54] LABS: HEMATOCRIT 35.5 % (42.0-52.0); HEMOGLOBIN 12.1 g/dl (13.5-17.5); MEAN CORPUSCULAR HEMOGLOBIN 32.5 pg (27.0-33.0); MEAN CORPUSCULAR HGB CONC 34.1 g/dl (32.0-36.5); MEAN CORPUSCULAR VOLUME 95.4 fl (80.0-96.0); PLATELET COUNT, AUTOMATED 247 10^3/uL (150-450); RED BLOOD COUNT 3.72 10^6/uL (4.30-6.10); WHITE BLOOD COUNT 13.2 10^3/uL (4.0-10.0)
[2019-10-07 07:08] LABS: BLOOD UREA NITROGEN 18 MG/DL (7-18); CALCIUM LEVEL 8.3 MG/DL (8.8-10.2); CARBON DIOXIDE LEVEL 27 MEQ/L (21-32); CHLORIDE LEVEL 105 MEQ/L (98-107); GLOMERULAR FILTRATION RATE > 60.0 (>49); GLUCOSE, FASTING 147 MG/DL (70-100); POTASSIUM SERUM 3.3 MEQ/L (3.5-5.1); SODIUM LEVEL 139 MEQ/L (136-145)
[2019-10-07] MEDS: BUDESONIDE 0.5 MG/2 ML INHALATION SUSPENSION INH SCH ×2 (07:10→19:13)
[2019-10-07] MEDS: TIOTROPIUM INHALER/CAPSULE (SPIRIVA) INH SCH (07:10)
[2019-10-07] MEDS: FORMOTEROL FUMARATE 20 MCG/2 ML INHALATION SOLUTION (PERFOROMIST) INH SCH ×2 (07:10→19:13)
--- NOTE | 2019-10-07 08:29 | REP ---
Clinical: Chest pain. Fever. Comparison: 10/05/2019. Findings: Mediastinum and cardiac silhouette are stable. Lung rodriguez demonstrate diffuse chronic interstitial changes with scattered scarring. Opacities in the right mid to lower lung zone and linear atelectasis in the left base are similar to prior examination. No new acute or increased areas of opacity are appreciated. No definite effusion. No pneumothorax. Impression: Diffuse chronic changes. Stable opacities in the right lower lung zone and left base without significant increase. Electronically Signed by Gilberto Hudson MD 10/07/2019 08:21 A
[2019-10-07] MEDS: LACTOBACILLUS ACIDOPHILUS CAP (BACID) PO SCH (09:18)
[2019-10-07] MEDS: guaiFENesin ER 600 MG TAB PO SCH ×2 (09:18→20:24)
[2019-10-07] MEDS: FOLIC ACID 1 MG TAB PO SCH (09:18)
[2019-10-07] MEDS: HumaLOG INSULIN (NovoLOG) PER UNIT SC SCH ×4 (09:18→21:00)
[2019-10-07] MEDS: FERROUS SULFATE 325MG TAB PO SCH (09:21)
[2019-10-07] MEDS: predniSONE 20 MG TAB PO SCH (09:21)
[2019-10-07] MEDS: OMEPRAZOLE 20 MG CAP PO SCH (09:21)
[2019-10-07] MEDS: BRIMONIDINE 0.1% OPHTH SOLN 5 ML OU SCH ×2 (09:22→20:24)
[2019-10-07 10:46] LABS: APPEARANCE, URINE CLEAR (CLEAR); BACTERIA, URINE AUTO NEGATIVE (NEGATIVE); BILIRUBIN, URINE AUTO NEGATIVE (NEGATIVE); BLOOD, URINE BLOOD NEGATIVE (NEGATIVE); COLOR, URINE YELLOW (YELLOW); GLUCOSE, URINE (UA) AUTO 3+ mg/dL (NEGATIVE); KETONE, URINE AUTO TRACE mg/dL (NEGATIVE); LEUKOCYTE ESTERASE, URINE AUTO NEGATIVE (NEGATIVE); MUCUS, URINE SMALL (NEGATIVE); NITRITE, URINE AUTO NEGATIVE (NEGATIVE); PROTEIN, URINE AUTO NEGATIVE (NEGATIVE); RBC, URINE AUTO 12 /HPF (0-3); SPECIFIC GRAVITY URINE AUTO 1.028 (1.002-1.035); SQUAMOUS EPITHELIAL CELL UR AU 0 /HPF (0-6); UROBILINOGEN, URINE AUTO 0.2 mg/dL (0.0-2.0); WBC, URINE AUTO 1 /HPF (0-3)
--- NOTE | 2019-10-07 12:51 | IPNPDOC ---
Text Note Date of Service The patient was seen on 10/07/19. NOTE SUBJECTIVE: Patient is a 68 year old male presented with a 2 day history of up per respiratory symptoms and diagnosed with RLL pneumonia. Patient had a fever early this morning and repeat blood cultures were drawn, he is feeling ok since then, he feels like his dyspnea is unchanged currently, he coughed up a lot sputum yesterday and is overall starting to feel better. Patient denies any chills, chest pain, abdominal pain, nausea, vomiting. OBJECTIVE: PHYSICAL EXAMINATION: Vitals: (see below) General: No acute distress, sitting up comfortably in bed, no accessory muscle u se, speaking in full sentences, no increased WOB. HEENT: Normocephalic, atraumatic. EOMI. No scleral icterus. Moist mucous membranes. No pharyngeal erythema or uvular deviation. Neck: No JVD, lymphadenopathy, or thyromegaly. Cardiac: RRR, Normal S1 and S2, No murmurs, gallops, rubs. Pulm: Clear to auscultation b/l. Symmetric thorax. Inspiratory rhonchi with prolonged expiratory phase improved from day prior, no wheezing or crackles. Abd: Bowel Sounds present. Abdomen is soft, non-tender, non-distended. No guarding, rebound tenderness, or rigidity. Ext: trace pitting edema of bilateral LE. Neuro: No focal neuro deficits. LABORATORY DATA, MICROBIOLOGY: Please see below. IMAGING STUDIES: ASSESSMENT/PLAN: #. Right lower lobe pneumonia -Continue Zosyn for broad spectrum coverage, sputum culture growing E.Coli, pro- milton 0.15, resp panel, initial BC negative, but with fever spike overnight will continue abx. -Encourage incentive spirometry ordered as CT showing fairly prominent at electasis as well -If patient spikes fever again, will reach out to pulmonology to see if they have any additional suggestions as they are quite familiar with this patient. #. COPD steroid and O2 dependent - Home Nebs with heliox - Continue home O2, titrate for 88-92% - Continue prednisone, perforomist, atrovent, singulair, converting to home LAMA to spiriva #. Bronchiectasis -Held alternating abx, will resume outpatient. #. Lactic acidosis -Resolved #. Elevated troponin level -Down trending, likely 2/2 demand ischemia from infection #. Oral thrush likely 2/2 albuterol -Continue home nystatin, fluconazole #. 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 CAD s/p stents and PAD s/p left femoral endarterectomy and right stenting - Continue home plavix #. T2DM -Sliding scale - Consistent carb diet #. MYKEL on CPAP -May use home CPAP settings #. Glaucoma -Continue home meds #. GERD - Continue home omeprazole #. Depression - Continue home citalopram #. Iron deficiency -Continue home iron supplementation #. Sepsis -Patient meets [facility] billing criteria for sepsis as he is SIRS+ with source of infection. He was initially treated with broad spectrum abx and received IV fluids, though they were not at a 30cc/kg dose as it was not warranted. I do not feel he exhibits signs of end organ dysfunction and so from a clinical standpoint does not meet sepsis criteria. -DVT prophy: heparin -GI prophylaxis: omeprazole Attending attestation: I evaluated and examined the patient in person; I discussed the care with Resident in detail and agree with the plan above. VS,Fishbone, I+O VS, Fishbone, I+O Laboratory Tests 10/07/19 05:48 Vital Signs Date Time Temp Pulse Resp B/P (MAP) Pulse Ox O2 Delivery O2 Flow Rate FiO2 10/07/19 09:21 105 134/75 10/07/19 07:37 99.7 10/07/19 06:00 17 94 Room Air 10/07/19 02:22 2.0 I&O- Last 24 Hours up to 6 AM 10/07/19 06:00 Intake Total 4250 ml Output Total 3800 ml Balance 450 ml GME ATTESTATION GME ATTESTATION My faculty preceptor for this patient encounter was physically present during the encounter and was fully available. All aspects of the patient interview, examination, medical decision making process, and medical care plan development were reviewed and approved by the faculty preceptor. The faculty preceptor is aware and concurs with the plan as stated in the body of this note and will attest to such by his/her cosignature. JOY KIRK DO October 07, 2019 12:51 MAG HERNANDEZ MD October 10, 2019 18:35
[2019-10-07 14:00] VITALS: BP 124/64
[2019-10-07] MEDS: MONTELUKAST 10 MG TAB PO SCH (20:24)
[2019-10-07] MEDS: CLOPIDOGREL 75 MG TAB PO SCH (20:24)
[2019-10-07] MEDS: CitaloPRAM (CeleXA) 20 MG TAB PO SCH (20:24)
[2019-10-07] MEDS: LATANOPROST 0.005% OPHTH SOLN 2.5 ML OU SCH (20:24)
[2019-10-07 22:00] VITALS: BP 135/76
[2019-10-08] MEDS: PIPERACILLIN/TAZOBACTAM SOD 4.5 GM in D5W MINI-BAG PLUS 100 ML IV SCH ×4 (02:55→20:55)
[2019-10-08] MEDS: IPRATROPIUM 0.5MG/ALBUTEROL 2.5MG INH SOL UD 3ML (DUONEB)(J7620) INH SCH ×6 (02:58→23:29)
[2019-10-08 04:23] VITALS: O2SAT 94
[2019-10-08] MEDS: HEPARIN SOD (PORCINE) 5000UNITS/ML VIAL (J1644 PER 1000UNITS) SC SCH ×3 (05:24→21:01)
[2019-10-08 06:00] VITALS: BP 141/78
[2019-10-08 06:43] LABS: HEMATOCRIT 35.5 % (42.0-52.0); HEMOGLOBIN 11.9 g/dl (13.5-17.5); MEAN CORPUSCULAR HEMOGLOBIN 32.5 pg (27.0-33.0); MEAN CORPUSCULAR HGB CONC 33.5 g/dl (32.0-36.5); PLATELET COUNT, AUTOMATED 236 10^3/uL (150-450); RED BLOOD COUNT 3.66 10^6/uL (4.30-6.10); WHITE BLOOD COUNT 11.9 10^3/uL (4.0-10.0)
[2019-10-08 07:02] LABS: BLOOD UREA NITROGEN 13 MG/DL (7-18); CALCIUM LEVEL 8.6 MG/DL (8.8-10.2); CARBON DIOXIDE LEVEL 28 MEQ/L (21-32); CHLORIDE LEVEL 105 MEQ/L (98-107); CREATININE FOR GFR 0.85 MG/DL (0.70-1.30); GLOMERULAR FILTRATION RATE > 60.0 (>49); GLUCOSE, FASTING 109 MG/DL (70-100); POTASSIUM SERUM 3.6 MEQ/L (3.5-5.1); SODIUM LEVEL 140 MEQ/L (136-145)
[2019-10-08] MEDS: BUDESONIDE 0.5 MG/2 ML INHALATION SUSPENSION INH SCH ×2 (07:27→19:24)
[2019-10-08] MEDS: TIOTROPIUM INHALER/CAPSULE (SPIRIVA) INH SCH (07:27)
[2019-10-08] MEDS: FORMOTEROL FUMARATE 20 MCG/2 ML INHALATION SOLUTION (PERFOROMIST) INH SCH ×2 (07:27→19:23)
[2019-10-08] MEDS: HumaLOG INSULIN (NovoLOG) PER UNIT SC SCH ×4 (09:06→20:56)
[2019-10-08] MEDS: OMEPRAZOLE 20 MG CAP PO SCH (09:07)
[2019-10-08] MEDS: guaiFENesin ER 600 MG TAB PO SCH ×2 (09:08→20:56)
[2019-10-08] MEDS: FOLIC ACID 1 MG TAB PO SCH (09:08)
[2019-10-08] MEDS: FERROUS SULFATE 325MG TAB PO SCH (09:08)
[2019-10-08] MEDS: LACTOBACILLUS ACIDOPHILUS CAP (BACID) PO SCH (09:08)
[2019-10-08] MEDS: predniSONE 20 MG TAB PO SCH (09:08)
[2019-10-08] MEDS: BRIMONIDINE 0.1% OPHTH SOLN 5 ML OU SCH ×2 (09:09→20:57)
--- NOTE | 2019-10-08 12:51 | IPNPDOC ---
Date Seen The patient was seen on 10/08/19. Progress Note SUBJECTIVE: 68-year-old male with past medical history of coronary artery disease, COPD, bronchiectasis, oxygen and steroid dependent, peripheral vascular disease, diabetes mellitus, obstructive sleep apnea, common variable immunodeficiency and hypertension was admitted for right lower lobe pneumonia. Patient has been treated with Zosyn with good clinical improvement, afebrile for 24 hours, no acute events overnight, without any complaints at this time. Patient continues to have mild dyspnea and cough, slightly worse than his baseline, has been ambulating around the room without difficulty or worsening in dyspnea/cough. He denies any chest pain, nausea, vomiting, diarrhea or constipation. 10 point review of system is negative except for above PHYSICAL EXAMINATION: VITAL SIGNS: Please see below. GENERAL: No distress HEENT: Normocephalic, atraumatic, moist mucous membranes NECK: Supple CARDIOVASCULAR EXAMINATION: S1, S2 RESPIRATORY EXAMINATION: Very poor air movement, no rhonchi, no wheezing ABDOMINAL EXAMINATION: Soft, nontender, nondistended, positive bowel sounds EXTREMITIES: Range of motion intact SKIN: No rash NEUROLOGICAL EXAMINATION: Alert and oriented 3, no focal deficits PSYCHIATRIC EXAMINATION: Calm and cooperative LABORATORY DATA, IMAGING STUDIES, MICROBIOLOGY: Please see below. ASSESSMENT AND PLAN: 68-year-old male with multiple medical comorbidities including COPD/bronchiectasis, steroid/oxygen dependent is admitted for pneumonia. PROBLEMS: 1. Pneumonia: Sputum cultures grew Escherichia coli, resistant to the fluoroquinolones he was getting in the outpatient setting, continue Zosyn, clinically improving, plan for discharge in 24-48 hours if continues to make steady progress. 2. COPD/bronchiectasis: Continue extensive home regimen including prednisone, nebs with heliox, supplemental oxygen to maintain O2 sats between 88-92%. 3. Common variable immunodeficiency: On weekly IVIG. 4. Obstructive sleep apnea: Continue CPAP 5. Peripheral vascular disease: Continue Plavix. 6. Hypertension: Continue Cardizem 7. Diabetes mellitus: Continue sliding scale insulin coverage with meals and at bedtime. DVT prophylaxis: Heparin subcutaneous. Reflexes: Protonix VS, I&O, 24H, Fishbone Vital Signs/I&O Vital Signs Date Time Temp Pulse Resp B/P (MAP) Pulse Ox O2 Delivery O2 Flow Rate FiO2 10/08/19 09:08 138/76 10/08/19 06:00 97.0 89 18 95 Nasal Cannula 10/08/19 04:23 2.0 I&O- Last 24 Hours up to 6 AM 10/08/19 06:00 Intake Total 2510 ml Output Total 1275 ml Balance 1235 ml Laboratory Data 24H LABS Laboratory Tests 2 10/07/19 16:36: Bedside Glucose (Misc Panel) 336H 10/07/19 20:05: Bedside Glucose (Misc Panel) 233H 10/08/19 06:02: Nucleated Red Blood Cells % (auto) 0.0, Anion Gap 7L, Glomerular Filtration Rate > 60.0, Calcium Level 8.6L 10/08/19 12:34: Bedside Glucose (Misc Panel) 175H CBC/BMP Laboratory Tests 10/08/19 06:02 Microbiology Microbiology 10/07/19 Blood Culture - Preliminary, Resulted No growth after 24 hours . All specim... 10/05/19 Respiratory Virus Panel (PCR) ([facility]) - Final, Complete 10/05/19 Gram Stain - Final, Complete 10/05/19 Sputum Culture - Final, Complete Escherichia Coli 10/05/19 Blood Culture - Preliminary, Resulted No Growth after 72 hours. All specime... 10/05/19 Blood Culture - Preliminary, Resulted No Growth after 72 hours. All specime... MAG HERNANDEZ MD October 08, 2019 12:51
[2019-10-08] MEDS: CitaloPRAM (CeleXA) 20 MG TAB PO SCH (20:56)
[2019-10-08] MEDS: CLOPIDOGREL 75 MG TAB PO SCH (20:56)
[2019-10-08] MEDS: MONTELUKAST 10 MG TAB PO SCH (20:56)
[2019-10-08] MEDS: LATANOPROST 0.005% OPHTH SOLN 2.5 ML OU SCH (20:57)
[2019-10-08 21:00] VITALS: O2SAT 93
[2019-10-08 22:00] VITALS: BP 135/76
[2019-10-09] MEDS: PIPERACILLIN/TAZOBACTAM SOD 4.5 GM in D5W MINI-BAG PLUS 100 ML IV SCH ×3 (02:13→14:41)
[2019-10-09] MEDS: IPRATROPIUM 0.5MG/ALBUTEROL 2.5MG INH SOL UD 3ML (DUONEB)(J7620) INH SCH ×4 (02:49→14:44)
[2019-10-09] MEDS: HEPARIN SOD (PORCINE) 5000UNITS/ML VIAL (J1644 PER 1000UNITS) SC SCH ×2 (05:55→14:00)
[2019-10-09 06:00] VITALS: BP 138/78
[2019-10-09] MEDS: FORMOTEROL FUMARATE 20 MCG/2 ML INHALATION SOLUTION (PERFOROMIST) INH SCH (07:05)
[2019-10-09] MEDS: TIOTROPIUM INHALER/CAPSULE (SPIRIVA) INH SCH (07:05)
[2019-10-09] MEDS: BUDESONIDE 0.5 MG/2 ML INHALATION SUSPENSION INH SCH (07:05)
[2019-10-09 07:21] LABS: HEMATOCRIT 34.7 % (42.0-52.0); HEMOGLOBIN 12.1 g/dl (13.5-17.5); MEAN CORPUSCULAR HEMOGLOBIN 33.5 pg (27.0-33.0); MEAN CORPUSCULAR HGB CONC 34.9 g/dl (32.0-36.5); MEAN CORPUSCULAR VOLUME 96.1 fl (80.0-96.0); PLATELET COUNT, AUTOMATED 247 10^3/uL (150-450); RED BLOOD COUNT 3.61 10^6/uL (4.30-6.10); WHITE BLOOD COUNT 11.8 10^3/uL (4.0-10.0)
[2019-10-09 07:44] LABS: BLOOD UREA NITROGEN 13 MG/DL (7-18); CARBON DIOXIDE LEVEL 28 MEQ/L (21-32); CHLORIDE LEVEL 102 MEQ/L (98-107); CREATININE FOR GFR 0.82 MG/DL (0.70-1.30); GLOMERULAR FILTRATION RATE > 60.0 (>49); GLUCOSE, FASTING 154 MG/DL (70-100); POTASSIUM SERUM 3.4 MEQ/L (3.5-5.1); SODIUM LEVEL 136 MEQ/L (136-145)
[2019-10-09] MEDS: predniSONE 20 MG TAB PO SCH (08:16)
[2019-10-09] MEDS: HumaLOG INSULIN (NovoLOG) PER UNIT SC SCH ×2 (08:16→12:21)
[2019-10-09] MEDS: guaiFENesin ER 600 MG TAB PO SCH (08:16)
[2019-10-09] MEDS: LACTOBACILLUS ACIDOPHILUS CAP (BACID) PO SCH (08:16)
[2019-10-09] MEDS: FOLIC ACID 1 MG TAB PO SCH (08:16)
[2019-10-09] MEDS: FERROUS SULFATE 325MG TAB PO SCH (08:16)
[2019-10-09] MEDS: OMEPRAZOLE 20 MG CAP PO SCH (08:16)
[2019-10-09 08:17] VITALS: BP 138/78
[2019-10-09] MEDS: BRIMONIDINE 0.1% OPHTH SOLN 5 ML OU SCH (08:17)
[2019-10-09 08:56] LABS: MAGNESIUM LEVEL 2.1 MG/DL (1.8-2.4)
[2019-10-09] MEDS: POTASSIUM CHLORIDE 10 MEQ SR TABLET PO SCH ×2 (10:33→12:21)
[2019-10-09] MEDS ORDERED: PRED5TA PO (11:32)
[2019-10-09] MEDS ORDERED: CEFD1CAP8 PO (11:32)
[2019-10-09 14:00] VITALS: BP 130/71; O2SAT 96
--- NOTE | 2019-10-09 15:12 | DS.PDOC ---
Discharge Summary General Date of Admission Oct 05, 2019 at 14:35 Date of Discharge October 09, 2019 Attending Physician: MAG HERNANDEZ MD Discharge Summary PROCEDURES PERFORMED DURING STAY: None. ADMITTING DIAGNOSES: 1. Pneumonia 2. COPD exacerbation 3. Common variable immunodeficiency. 4. MYKEL 5. PPD. 6. Hypertension. 7. Diabetes mellitus DISCHARGE DIAGNOSES: 1. Pneumonia 2. COPD exacerbation 3. Common variable immunodeficiency. 4. MYKEL 5. PPD. 6. Hypertension. 7. Diabetes mellitus COMPLICATIONS/CHIEF COMPLAINT: Copd Exacerbation. HISTORY OF PRESENT ILLNESS: 68 year old male presenting with chief complaint of shortness of breath. He states for the past 2 days he has had intermittent fevers, chills, cough productive of green sputum, and worsening shortness of breath causing him to present to [facility] ED. He denies any recent, sick contacts, exposures or changes in the last month and states he has stayed at home with his , daughter, and grandchildren who practice safe social distancing. Of note, he does report he has mostly been sitting in his chair at home all day watching tv and using his incentive spirometer only twice daily. In the ED, he was found to have an elevated WBC count and imaging findings consistent with RLL pneumonia so the hospitalist service was called for admission. HOSPITAL COURSE: Patient was admitted to the hospital and started on IV antib iotics with vancomycin and Zosyn for broad coverage. Based on culture results, he was switched to meropenem. He was also started on a prednisone taper. He was continued on his home nebulizer treatments. On admission, the patient was requiring higher levels of supplemental oxygen than his baseline. As he improved over the course of his admission, his oxygen requirement decreased back to his baseline 2 L, which she uses at home. He will be discharged on 1 week of oral cefdinir and a prednisone taper. On day of discharge, patient was stable and safe for discharge home. DISCHARGE MEDICATIONS: Please see below. ALLERGIES: Please see below. PHYSICAL EXAMINATION ON DISCHARGE: VITAL SIGNS: Please see below. GENERAL: Alert, comfortable, in no acute distress HEENT: Normocephalic, atraumatic, sclera anicteric, moist mucous membranes NECK: Supple, trachea midline, no lymphadenopathy, no JVD CARDIOVASCULAR: Regular rate and rhythm, normal S1 and S2. No murmurs, rubs, or gallops RESPIRATORY: Clear to auscultation bilaterally with equal air entry bilaterally. No wheezing, rhonchi, or rales. ABDOMEN: Soft, nontender, nondistended, bowel sounds present EXTREMITIES: No edema or cyanosis SKIN: [place], warm, dry NEUROLOGIC: Alert and oriented 3. No focal deficits appreciated PSYCHIATRIC: Mood and affect appropriate LABORATORY DATA: Please see below. IMAGING: CXR 10/04: Stable appearing chronic changes. CT Chest 10/04: New diffuse inferior right lower lobe infiltrate. Slight increase in left lower lobe infiltrate. No other acute findings. CXR 10/06: Diffuse chronic changes. Stable opacities in the right lower lung zone and left base without significant increase. PROGNOSIS: Fair ACTIVITY: As tolerated. DIET: Consistent Carb DISCHARGE PLAN: Oral antibiotics and prednisone taper DISPOSITION: Home DISCHARGE INSTRUCTIONS: 1. Follow up with your PCP in 7-10 days 2. Please complete the full course of antibiotics and full prednisone taper 3. If your symptoms return, call your doctor or return to the ED for further evaluation. ITEMS TO FOLLOWUP ON ON OUTPATIENT: 1. Pneumonia DISCHARGE CONDITION: Stable. TIME SPENT ON DISCHARGE: Greater than 35 minutes. Attending attestation: I evaluated and examined the patient in person; I discussed the care with Resident in detail and agree with the plan above. Vital Signs/I&Os Vital Signs Date Time Temp Pulse Resp B/P (MAP) Pulse Ox O2 Delivery O2 Flow Rate FiO2 10/09/19 14:00 96 Nasal Cannula 2.0 10/09/19 08:17 93 138/78 10/09/19 06:00 98.1 18 I&O- Last 24 Hours up to 6 AM 10/09/19 06:00 Intake Total 2950 ml Output Total 2315 ml Balance 635 ml Laboratory Data Labs 24H Laboratory Tests 2 10/08/19 16:37: Bedside Glucose (Misc Panel) 371H 10/08/19 20:06: Bedside Glucose (Misc Panel) 258H 10/09/19 06:43: Nucleated Red Blood Cells % (auto) 0.2H, Anion Gap 6L, Glomerular Filtration Rate > 60.0, Calcium Level 9.0, Magnesium Level 2.1 10/09/19 11:44: Bedside Glucose (Misc Panel) 233H CBC/BMP Laboratory Tests 10/09/19 06:43 FSBS Laboratory Tests Test 10/08/19 16:37 10/08/19 20:06 10/09/19 11:44 Range/Units Bedside Glucose (Misc Panel) 371 258 233 80-115 MG/DL Microbiology Microbiology 10/07/19 Blood Culture - Preliminary, Resulted No Growth after 48 hours. All Specime... 10/05/19 Respiratory Virus Panel (PCR) ([facility]) - Final, Complete 10/05/19 Gram Stain - Final, Complete 10/05/19 Sputum Culture - Final, Complete Escherichia Coli 10/05/19 Blood Culture - Preliminary, Resulted No Growth after 72 hours. All specime... 10/05/19 Blood Culture - Preliminary, Resulted No Growth after 72 hours. All specime... Discharge Medications Scheduled Aclidinium Stevinson (Tudorza Pressair) 400 Mcg Aer.pow.ba, 1 PUFF INH BID, (Reported) Albuterol Sulf (Albuterol Sulfate) 2.5 Mg/3 Ml Nebu, 2.5 MG INH QID, (Reported) MIXES WITH IPRATROPIUM Ascorbic Acid (Ascorbic Acid) 500 Mg Tablet, 1,000 MG PO DAILY, (Reported) Brimonidine Tartrate (Alphagan P) 0.1% 5ML Drops, 1 DROP OU BID, (Reported) USES MORNING/DINNERTIME Budesonide (Pulmicort) 0.5 Mg/2 Ml Mely, 0.5 MG INH BID, (Reported) USED WITH PERFOROMIST, USES 30MIN AFTER ALBUTEROL/IPRATROPIUM NEB Calcium Citrate/Vitamin D3 (Calcium Citrate-Vit D3 Caplet) 1 Tab Tab, 1 TAB PO BID, (Reported) Cefdinir (Cefdinir) 300 Mg Capsule, 1 CAP PO BID Cholecalciferol (Vitamin D3) (Vitamin D3) 1,000 Unit Tablet, 2,000 UNITS PO DAILY, (Reported) Citalopram Hydrobromide (Celexa) 20 Mg Tablet, 20 MG PO QHS, (Reported) Clopidogrel Bisulfate (Plavix) 75 Mg Tab, 75 MG PO QHS, (Reported) Diltiazem HCl (Diltiazem 24Hr ER) 240 Mg Cap, 240 MG PO DAILY, (Reported) Famotidine (Famotidine) 40 Mg Tablet, 40 MG PO QHS, (Reported) Ferrous Sulfate (Ferrous Sulfate) 325 Mg Tab, 325 MG PO DAILY, (Reported) Fluconazole (Fluconazole) 200 Mg Tablet, 200 MG PO QWEEK, (Reported) FRIDAYS Folic Acid (Folic Acid) 1 Mg Tab, 1 MG PO DAILY, (Reported) Formoterol Fumarate (Perforomist) 20 Mcg/2 Ml Neb, 20 MCG INH BID, (Reported) USED WITH PULMICORT, USES 30MIN AFTER ALBUTEROL/IPRATROPIUM NEB Glimepiride (Glimepiride) 4 Mg Tab, 4 MG PO BID, (Reported) Guaifenesin (Mucinex) 1,200 Mg Tab.er.12h, 1,200 MG PO BID, (Reported) Ibandronate Sodium (Boniva) 150 Mg Tablet, 150 MG PO QMONTH, (Reported) TAKES ON 10TH OF EACH MONTH Immun Glob G(IgG)/Pro/Iga 0-50 (Hizentra 1 Gram/5 ml Vial) 1 Gm/5 Ml Vial, 14 MG SC QWEEK, (Reported) SATURDAYS Ipratropium Stevinson (Ipratropium Stevinson) 0.5 Mg/2.5 Ml Soln, 0.5 MG INH QID, (Reported) MIXES WITH ALBUTEROL L.acidoph/L.bulg/B.bif/S.therm (Bacid Caplet) 1 Each Tablet, 1 TAB PO DAILY, (Reported) Metformin HCl (Metformin HCl) 500 Mg Tab, 500 MG PO BID, (Reported) Montelukast Sodium (Singulair) 10 Mg Tab, 10 MG PO QHS, (Reported) Omeprazole (Omeprazole) 40 Mg Cap, 40 MG PO DAILY, (Reported) Pitavastatin Calcium (Livalo) 2 Mg Tablet, 2 MG PO QHS, (Reported) Prednisone (Prednisone) 5 Mg Tablet, 5 MG PO DAILY Take 4 tabs (20mg) for 4 days, then take 3 tabs (15mg) for 7 days, take 2 tabs (10mg) for 7 days, take 1 tab (5mg) for 7 days. Sulfamethoxazole/Trimethoprim (Bactrim Ds Tablet) 1 Each Tablet, 1 TAB PO 3XW, (Reported) MON/WED/FRI Travoprost (Travatan Z) 50 Drop/2.5 Ml Soln, 1 DROP OU QHS, (Reported) Vitamin B Complex (Vitamin B Complex) 1 Each Tablet, 1 TAB PO DAILY, (Reported) Scheduled PRN Clotrimazole (Clotrimazole) 10 Mg Troc, 10 MG MT Q2H PRN for THRUSH, (Reported) Mupirocin (Mupirocin) 22 Gm Oint...g., 1 APLCT TOP TID PRN for SORES, (Reported) APPLY TO NARES AND UPPER LIP Neomycin/Bacitracin/Polymyxinb (Triple Antibiotic Ointment) 28 Gm Oint...g., 1 APLCT TOP BID PRN for SORES, (Reported) APPLY TO NARES AND UPPER LIP Nitroglycerin (Nitrostat) 0.4 Mg Subl, 0.4 MG SL NITRO PRN for CHEST PAIN, (Reported) Nystatin (Nystatin Oral Susp) 5 Ml Susp, 4 ML SSP QID PRN for THRUSH, (Reported) Allergies Coded Allergies: fexofenadine (Verified Allergy, Severe, anaphylaxis, 09/05/19) quinidine (Verified Allergy, Intermediate, HIVES, 09/05/19) metoprolol (Verified Adverse Reaction, Intermediate, d/t lung condition, 09/05/19) pravastatin (Verified Adverse Reaction, Intermediate, MUSCLE WEAKNESS, 09/05/19) aspirin (Verified Adverse Reaction, Mild, RECTAL BLEEDING, 09/05/19) furosemide (Verified Adverse Reaction, Mild, dizziness, 09/05/19) levofloxacin (Verified Adverse Reaction, Mild, MUSCLE CRAMPING, 09/05/19) DALJIT ANTHONY D.O. October 09, 2019 15:12 MAG HERNANDEZ MD October 10, 2019 19:51
[2019-10-14] MEDS ORDERED: predniSONE 5 MG TAB PO SCH (09:00)
[2019-10-21] MEDS ORDERED: predniSONE 10 MG TAB PO SCH (09:00)
[2019-10-28] MEDS ORDERED: predniSONE 5 MG TAB PO SCH (09:00)
== END 2019-10-09 17:15 | disposition home health service (06) | DRG 178 ==
LOC: M ED 09:12 → M ED INP 14:35 → ENRESERV 15:00 → M MSPAV 16:11
PROVIDERS: ADMIT Internal Medicine; ATTEND Internal Medicine
DX: J15.5 Pneumonia due to Escherichia coli (principal); E87.2 Acidosis; J44.0 Chronic obstructive pulmonary disease with (acute) lower respiratory infection; B37.0 Candidal stomatitis; D83.9 Common variable immunodeficiency, unspecified; J96.11 Chronic respiratory failure with hypoxia; J44.1 Chronic obstructive pulmonary disease with (acute) exacerbation; I25.10 Atherosclerotic heart disease of native coronary artery without angina pectoris; H91.90 Unspecified hearing loss, unspecified ear; Z66 Do not resuscitate; E11.51 Type 2 diabetes mellitus with diabetic peripheral angiopathy without gangrene; G47.33 Obstructive sleep apnea (adult) (pediatric); H40.9 Unspecified glaucoma; I10 Essential (primary) hypertension; M81.0 Age-related osteoporosis without current pathological fracture; F32.9 Major depressive disorder, single episode, unspecified; E53.8 Deficiency of other specified B group vitamins; E61.1 Iron deficiency; Z99.81 Dependence on supplemental oxygen; Z79.52 Long term (current) use of systemic steroids; Z95.5 Presence of coronary angioplasty implant and graft; Z95.3 Presence of xenogenic heart valve; Z79.02 Long term (current) use of antithrombotics/antiplatelets; Z79.84 Long term (current) use of oral hypoglycemic drugs; Z79.899 Other long term (current) drug therapy; Z88.1 Allergy status to other antibiotic agents; Z88.6 Allergy status to analgesic agent; Z88.8 Allergy status to other drugs, medicaments and biological substances; Z95.820 Peripheral vascular angioplasty status with implants and grafts

== ENCOUNTER → 2020-01-09 | Outpatient (REF) | payer MEDICARE, OTHER ==
[~2020-01-09] MED LIST changes: +D31000TA2 PO; -VITAD1000T PO
== END ==
LOC: M LAB REF 12:35
PROVIDERS: ATTEND Internal Medicine Pulmonary Disease
DX: J44.9 Chronic obstructive pulmonary disease, unspecified (principal)

== ENCOUNTER → 2020-02-05 | Outpatient (CLI) | payer MEDICARE, OTHER ==
--- NOTE | 2020-03-05 07:36 | REP ---
BILATERAL LOWER EXTREMITY DOPPLER ARTERIAL ULTRASOUND HISTORY: Atherosclerosis. FINDINGS: Real-time ultrasound evaluation and duplex Doppler interrogation of bilateral lower extremity arterial systems was performed. ZEB right is 0.8 and left 0.7. Heavy atherosclerotic calcifications are seen diffusely bilaterally. There appears to be a patent stent in the distal right femoral artery. Triphasic waveforms are seen in the right common femoral artery and proximal superficial femoral artery with biphasic waveforms more distally. No focal stenosis is seen in the right lower extremity arterial system. On the left, the popliteal artery is occluded. There is revascularization distally via a collateral vessel with triphasic waveforms throughout the left common femoral and superficial femoral arteries and monophasic waveforms in the left popliteal artery and calf arteries. PEAK SYSTOLIC VELOCITY RIGHT cm/s LEFT cm/s Femoral artery 43.0 94.8 Profunda 93.5 69.4 Proximal SFA 131.1 84.3 Mid SFA 127.3 92.4 Distal SFA 86.8 83.0 Popliteal 57.8 12.2 Proximal LÁZARO 66.5 19.3 Tibioperoneal trunk 50.1 16.8 Proximal SOCCER REFEREE 40.6 14.5 Distal SOCCER REFEREE 44.0 11.4 Distal LÁZARO 47.4 10.2 MTDD
== END ==
LOC: M RAD 09:09
PROVIDERS: ATTEND Physician Assistant
DX: I70.213 Atherosclerosis of native arteries of extremities with intermittent claudication, bilateral legs (principal)

== ENCOUNTER → 2020-06-11 | Outpatient (CLI) | payer MEDICARE, OTHER ==
[~2020-06-11] MED LIST changes: -MONT10TA4 PO; +MONT5TAB2 PO
--- NOTE | 2020-06-11 12:33 | REPPI ---
INDICATION: RECURRENT PNEUMONIA COMPARISON: 10/07/2019, 05/19/2019 TECHNIQUE: PA and lateral. FINDINGS: The mediastinum and cardiac silhouette are stable. The lung rodriguez demonstrate chronic stable changes including asymmetric chronic changes in the right lower lung zone. No obvious acute consolidation, effusion, or pneumothorax identified. Skeletal structures demonstrate osteopenia and degenerative changes with lateral view demonstrating chronic compression deformities of midthoracic vertebral bodies. IMPRESSION: Chronic appearing changes similar to multiple prior examinations dating through 05/19/2019. <Electronically signed by Gilberto Hudson > 06/11/20 [id number]
--- NOTE | 2020-06-11 12:39 | REPPI ---
INDICATION: RECURRENT PNEUMONIA COMPARISON: None. TECHNIQUE: Four views of the left hemithorax. FINDINGS: Multiple views of the hemithorax demonstrates no acute rib fracture/injury or pathology. IMPRESSION: Normal rib series. <Electronically signed by Gilberto Hudson > 06/11/20 [id number]
== END ==
LOC: M PLAIMG 11:39
PROVIDERS: ATTEND Internal Medicine Infectious Disease
DX: R07.81 Pleurodynia (principal); J18.9 Pneumonia, unspecified organism
CPT/HCPCS: 36415; 71046; 71100; 80053; 85652; 86140; 86360; G0463

== ENCOUNTER → 2020-06-11 | Outpatient (REF) | payer MEDICARE, OTHER ==
[2020-06-11 14:04] LABS: ALBUMIN 3.9 GM/DL (3.2-5.2); ALT/SGPT 36 U/L (12-78); BILIRUBIN,TOTAL 0.3 MG/DL (0.2-1.0); BLOOD UREA NITROGEN 14 MG/DL (7-18); C REACTIVE PROTEIN QUANTITATIV 0.51 MG/DL (0.00-0.30); CALCIUM LEVEL 9.8 MG/DL (8.8-10.2); CARBON DIOXIDE LEVEL 27 MEQ/L (21-32); CHLORIDE LEVEL 102 MEQ/L (98-107); CREATININE FOR GFR 0.97 MG/DL (0.70-1.30); GLOMERULAR FILTRATION RATE > 60.0 (>49); GLUCOSE, FASTING 119 MG/DL (70-100); POTASSIUM SERUM 4.6 MEQ/L (3.5-5.1); SODIUM LEVEL 137 MEQ/L (136-145); TOTAL PROTEIN 7.1 GM/DL (6.4-8.2)
[2020-06-12 17:12] LABS: %CD4 Pos Lymphs 36.2 % (30.8-58.5); ABS Basophils 0.1 x10E3/uL (0.0-0.2); ABS Lymphs 0.6 x10E3/uL (0.7-3.1); ABS Monocytes 0.4 x10E3/uL (0.1-0.9); Abs CD4 Helper 217 /uL (359-1519); Abs CD8 Suppres 240 /uL (109-897); CD4/CD8 Ratio 0.91 (0.92-3.72); Eosinophils 0 % (Not Estab.); HCT 40.3 % (37.5-51.0); HGB 13.8 g/dL (13.0-17.7); Imm ABS Grans 0.2 x10E3/uL (0.0-0.1); Immature Grans 1 % (Not Estab.); Lymphocytes 3 % (Not Estab.); MCH 32.9 pg (26.6-33.0); MCHC 34.2 g/dL (31.5-35.7); MCV 96 fL (79-97); Monocytes 2 % (Not Estab.); Neutrophils 94 % (Not Estab.); Platelets 256 x10E3/uL (150-450); RDW 13.1 % (11.6-15.4); WBC 17.2 x10E3/uL (3.4-10.8)
== END ==
LOC: M SFHCPLAZ 11:36
PROVIDERS: ATTEND Internal Medicine Infectious Disease
DX: J18.9 Pneumonia, unspecified organism (principal)

== ENCOUNTER 2020-11-22 17:34 | Inpatient (IN) | payer MEDICARE, OTHER ==
[~2020-11-22] VITALS: Ht 172.7 cm; Wt 59.9 kg
[~2020-11-22 17:34] MED LIST changes: +GLYB2.5T7 PO; -GLYB25TA PO; +MONT10TA10 PO; -MONT5TAB2 PO; +OMEP40CA4 PO; -OMEP40CA97 PO; +SIME80CH5 PO; -SIME80TA PO
[2020-11-22] MEDS ORDERED: methylPREDNISolone 125MG 2ML VIAL IV ONE (17:50)
[2020-11-22] MEDS ORDERED: ALBUTEROL SULFATE 2.5 MG/0.5 ML INH NEB SOLN INH ONE (17:50)
[2020-11-22] MEDS ORDERED: IPRATROPIUM 0.5MG/ALBUTEROL 2.5MG INH SOL UD 3ML (DUONEB) NEB ONE ×2 (17:50→21:00)
[2020-11-22 18:19] LABS: BASO % 0.2 % (0.0-1.0); HEMATOCRIT 44.7 % (42.0-52.0); HEMOGLOBIN 14.5 g/dl (13.5-17.5); LYMPH # 0.8 10^3/uL (1.5-5.0); MEAN CORPUSCULAR HEMOGLOBIN 31.7 pg (27.0-33.0); MEAN CORPUSCULAR HGB CONC 32.4 g/dl (32.0-36.5); MEAN CORPUSCULAR VOLUME 97.6 fl (80.0-96.0); MONO # 0.6 10^3/uL (0.0-0.8); MONO % 2.8 % (2.0-8.0); NEUTROPHILS # 19.2 10^3/uL (1.5-8.5); NEUTROPHILS % 91.6 % (36.0-66.0); PLATELET COUNT, AUTOMATED 272 10^3/uL (150-450); RED BLOOD COUNT 4.58 10^6/uL (4.30-6.10)
[2020-11-22] MEDS ORDERED: AZITHROMYCIN INJ 500 MG, VIAL MATE ADAPTER 1 EACH in NS 250 ML IV ONE (18:20)
[2020-11-22] MEDS ORDERED: cefTRIAXone SOD 1 GM in D5W MINI-BAG PLUS 50 ML IV ONE (18:20)
--- NOTE | 2020-11-22 18:35 | REP ---
INDICATION: DYSPNEA/COUGH. COMPARISON: Two view of the chest 06/11/2020 TECHNIQUE: Portable FINDINGS: The technique utilized in obtaining the radiograph has magnified the cardiac silhouette and accentuated the interstitial markings. The cardiomediastinal silhouette is magnified by technique. Mild cardiomegaly cannot be ruled out. There is chronic interstitial fibrotic change with right basilar predominance. This is stable. No acute patchy parenchymal opacities or pleural effusions have developed. There is an age undetermined old left rib fracture. IMPRESSION: Chronic changes as described above. <Electronically signed by Cornelius Andrade > 11/22/20 [id number]
[2020-11-22] MEDS ORDERED: PIPERACILLIN/TAZOBACTAM SOD 4.5 GM in D5W MINI-BAG PLUS 50 ML IV ONE (18:45)
[2020-11-22 18:53] LABS: ALBUMIN 3.9 GM/DL (3.2-5.2); ALT/SGPT 88 U/L (12-78); BILIRUBIN,DIRECT 0.2 MG/DL (0.0-0.2); BILIRUBIN,TOTAL 0.4 MG/DL (0.2-1.0); BLOOD UREA NITROGEN 26 MG/DL (7-18); CALCIUM LEVEL 8.6 MG/DL (8.8-10.2); CARBON DIOXIDE LEVEL 26 MEQ/L (21-32); CHLORIDE LEVEL 98 MEQ/L (98-107); CREATININE FOR GFR 1.02 MG/DL (0.70-1.30); GLOMERULAR FILTRATION RATE > 60.0 (>49); GLUCOSE, FASTING 232 MG/DL (70-100); NT-PRO BNP 8538 PG/ML (<125); POTASSIUM SERUM 4.8 MEQ/L (3.5-5.1); SODIUM LEVEL 133 MEQ/L (136-145); THYROXINE (T4) 4.6 UG/DL (4.5-12.0); TOTAL PROTEIN 7.5 GM/DL (6.4-8.2)
[2020-11-22] MEDS ORDERED: D5W 1,000 ML IV SCH (21:20)
[2020-11-22] MEDS ORDERED: MAALOX 30 ML SUSP *UDC PO PRN (21:20)
[2020-11-22] MEDS ORDERED: ACETAMINOPHEN TAB 650MG DOSE (2X325MG) PO PRN (21:20)
[2020-11-22] MEDS ORDERED: MOM 30ML SUSPENSION UDC PO PRN (21:20)
[2020-11-22] MEDS ORDERED: CEFD1CAP8 PO (21:42)
--- NOTE | 2020-11-22 21:43 | HPEPDOC ---
[facility] Medical History & Physical Date of Admission Nov 22, 2020 Date of Service: Nov 22, 2020 Other Provider Blaze Ruano Attending Physician: DIANA HERNANDEZ MD History and Physical TIME OF SERVICE: 947pm CHIEF COMPLAINT: shortness of breath HISTORY OF PRESENT ILLNESS: has been feeling short of breath for 3 or 4 weeks. On Wednesday, after eating out at a restaurant for his birthday, the his shortness of breath became acutely worse; his thought it might be due to the humidity and rain. He saw his PCP on Wednesday and received IV/IM steroids on Wed, Wed and for acute COPD which seemed to help his symptoms. Despite receiving another dose of steroids this morning his shortness of breath got much worse to the point that he was not able walk more than a few feet, eat and or even speak. He has also had some chest tightness but denied overt chest pain. For several years he has been sleeping in recliner because he feels like someone is hanging him if he tries to lie down on his back. He denies having lower extremity edema. REVIEW OF SYSTEMS: 10-point review of systems negative except as listed in HPI PAST MEDICAL/ SURGICAL HISTORY: DNR/DNI COPD / chronic hypoxic O2 respiratory failure (2L) / steroid dependence on Bactrim for PJP prophylaxis on wed, wed, Wednesday Bronchiectasis on chronic antibiotic cycles of 2 week on and 2 weeks off alter nating between cefdinir/ ciprofloxacin Common variable immunodeficiency (CVID) Chronic CAD w stents x 13 / chronically elevated troponin PAD s/p left femoral endarterectomy and right stenting NIDDM Glaucoma Hearing Loss MYKEL on CPAP Essential HTN Depression h/o Aortic stenosis with Aortic valve replaced with bioprosthetic valve Chronic thoracic vertebral body compression fracture / Osteoporosis Iron deficiency Vit B12 deficiency Oral thrush Eyelid procedure Tongue biopsy Left femoral endarterectomy with patch repair recently in March 2018 SOCIAL HISTORY: He quit smoking 10 years ago, denies any alcohol, marijuana, heroin, cocaine, or PCP use. Lives at home with , daughter, three grand children. FAMILY HISTORY: FATHER: , HEART ATTACK ALLERGIES: Please see below. HOME MEDICATIONS: Please see below. PHYSICAL EXAMINATION: Vital Signs Date Time Temp Pulse Resp B/P (MAP) Pulse Ox O2 Delivery O2 Flow Rate FiO2 11/22/20 17:49 124 94 11/22/20 18:00 138/80 (99) NIPPV (BIPAP/CPAP) 60 11/22/20 18:03 96.8 35 GENERAL APPEARANCE: well-nourished and developed / slightly anxious HEENT: EOMI / BIPAP mask in place / lips not cyanotic / he has JVD CARDIOVASCULAR: tachycardic/NMRG / no LE edema LUNGS: chest barrel shaped/ expiratory crackles ABDOMEN: contour convex / soft & NT w palpation MUSCULOSKELETAL: NCAT / LUCIANA x 4 INTEGUMENT: slightly flushed flushed / not diaphoretic NEUROLOGICAL: CN 2-12 intact except hearing / speech not dysarthric PSYCHIATRIC: A&O x3 LABORATORY DATA: IMAGING: Chest xray Chronic changes as described above. MICROBIOLOGY: respiratory panel neg ASSESSMENT: is a 70 yr old w COPD with steroid and O2 dependence, CVID, CAD, PAD, NIDDM, MYKEL, Essential HTN, depression, h/o Aortic stenosis with Aortic valve replaced with bioprosthetic valve, & osteoporosis who is admitted for SIRS, acute hypercapneic respiratory failure & acute COPD. PLAN: 1 Acute BIPAP dependent Hypercapneic respiratory failure Likely due to acute COPD and possibly acute CHF His PCO2 was 55.6 at 18:03 Plan: admit to ICU for BIPAP / NPO w breaks for sips & ice chips / f/u repeat ABG tonight and in the morning/ treat COPD / give 1 dose of Lasix 2 Acute COPD with steroid dependence & Chronic O2 dependent respiratory failure / Bronchiectasis Trigger of Acute COPD may be undiagnosed heart failure, aspiration, or pulmonary embolism Plan: supplemental O2 / continuous pulse oximetry / aspiration precautions / f/u ABG, d-dimer, / DuoNeb Q6H, Levalbuterol Q2HP, IV Solumedrol w PPI / c/w, Montelukast, Cefdir as scheduled for Bronchiectasis & Bactrim for PJP prophylaxis / the day time team may consider placing a Pulm consult in the morning for Heliox 3 Elevated BNP possibly due to acute CHF/ cor-pulmonale or type 3 pulmonary HTN Despite the absence of BLE, he has a hx of PND. He also has JVD, inspiratory crackles and a doubling of his BNP. 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 The EKG showed a septal infarct. He also has a hx of elevated troponins in the past Plan: telemetry / f/u repeat EKG in the morning 7 Chronic CAD w stents x 13 / PAD s/p left femoral endarterectomy and right stenting Plan: Clopidogrel / allergic to ASA / no Pivastatin on our formulary 8 CVID Plan IVIG weekly 9 NIDDM Plan: f/u accuchecks / hypoglycemia protocol / sliding scale insulin / hold oral anti-glycemic / f/u A1C (target A1C is for him bc of his age & co- morbidities is about 8.5%) 10 Essential HTN Plan: Diltiazem 12 Chronic thoracic vertebral body compression fracture / Osteoporosis Plan: calcium w vitamin D / Ibandronate monthly 15 Oral thrush Plan: Nystatin DVT px w Lovenox (Yas score is 4 points = pharmacological px indicated) Dispo: home after at least 2 midnights stay Home Medications Scheduled Aclidinium [place] (Tudorza Pressair) 400 Mcg Aer.pow.ba, 1 PUFF INH BID Albuterol Sulf (Albuterol Sulfate) 2.5 Mg/3 Ml Nebu, 2.5 MG INH QID MIXES WITH IPRATROPIUM Ascorbic Acid (Ascorbic Acid) 500 Mg Tablet, 1,000 MG PO DAILY Brimonidine Tartrate (Alphagan P) 0.1% 5ML Drops, 1 DROP OU BID USES MORNING/DINNERTIME Budesonide (Pulmicort) 0.5 Mg/2 Ml Mely, 0.5 MG INH BID USED WITH PERFOROMIST, USES 30MIN AFTER ALBUTEROL/IPRATROPIUM NEB Calcium Citrate/Vitamin D3 (Calcium Citrate-Vit D3 Caplet) 1 Tab Tab, 1 TAB PO BID Cefdinir (Cefdinir) 300 Mg Capsule, 300 MG PO BID started 11/10/20 x 2 weeks Cholecalciferol (Vitamin D3) (Vitamin D3) 1,000 Unit Tablet, 2,000 UNITS PO DAILY Citalopram Hydrobromide (Celexa) 20 Mg Tablet, 20 MG PO QHS Clopidogrel Bisulfate (Plavix) 75 Mg Tab, 75 MG PO QHS Diltiazem HCl (Diltiazem 24Hr ER) 240 Mg Cap, 240 MG PO DAILY Empagliflozin (Jardiance) 25 Mg Tablet, 25 MG PO DAILY Famotidine (Famotidine) 40 Mg Tablet, 40 MG PO QHS Ferrous Sulfate (Ferrous Sulfate) 325 Mg Tab, 325 MG PO DAILY Fluconazole (Fluconazole) 200 Mg Tablet, 200 MG PO QWEEK FRIDAYS Folic Acid (Folic Acid) 1 Mg Tab, 1 MG PO DAILY Formoterol Fumarate (Perforomist) 20 Mcg/2 Ml Neb, 20 MCG INH BID USED WITH PULMICORT, USES 30MIN AFTER ALBUTEROL/IPRATROPIUM NEB Guaifenesin (Mucinex) 600 Mg Tab.er.12h, 600 MG PO BID Ibandronate Sodium (Boniva) 150 Mg Tablet, 150 MG PO QMONTH TAKES ON 10TH OF EACH MONTH Immun Glob G(IgG)/Pro/Iga 0-50 (Hizentra 1 Gram/5 ml Vial) 1 Gm/5 Ml Vial, 14 MG SC QWEEK SATURDAYS Ipratropium [place] (Ipratropium [place]) 0.5 Mg/2.5 Ml Soln, 0.5 MG INH QID MIXES WITH ALBUTEROL L.acidoph/L.bulg/B.bif/S.therm (Bacid Caplet) 1 Each Tablet, 1 TAB PO DAILY Metformin HCl (Metformin HCl) 500 Mg Tab, 500 MG PO TID Methylprednisolone (Solu-Medrol 125 mg Vial) 125 Mg/2 Ml Vial, 125 MG IM DAILY started 11/20/20 x 3 days Montelukast Sodium (Singulair) 10 Mg Tab, 10 MG PO QHS Omeprazole (Omeprazole) 40 Mg Cap, 40 MG PO DAILY Pitavastatin Calcium (Livalo) 2 Mg Tablet, 2 MG PO QHS Prednisone (Prednisone) 10 Mg Tablet, 20 MG PO DAILY Sulfamethoxazole/Trimethoprim (Bactrim Ds Tablet) 1 Each Tablet, 1 TAB PO 3XW MON/WED/WED Travoprost (Travatan Z) 50 Drop/2.5 Ml Soln, 1 DROP OU QHS Vitamin B Complex (Vitamin B Complex) 1 Each Tablet, 1 TAB PO DAILY Scheduled PRN Nitroglycerin (Nitrostat) 0.4 Mg Subl, 0.4 MG SL NITRO PRN for CHEST PAIN Allergies Coded Allergies: fexofenadine (Verified Allergy, Severe, anaphylaxis, 09/05/19) quinidine (Verified Allergy, Intermediate, HIVES, 09/05/19) metoprolol (Verified Adverse Reaction, Intermediate, d/t lung condition, 09/05/19) pravastatin (Verified Adverse Reaction, Intermediate, MUSCLE WEAKNESS, 09/05/19) aspirin (Verified Adverse Reaction, Mild, RECTAL BLEEDING, 09/05/19) furosemide (Verified Adverse Reaction, Mild, dizziness, 09/05/19) levofloxacin (Verified Adverse Reaction, Mild, MUSCLE CRAMPING, 09/05/19) A-FIB/CHADSVASC A-FIB History Current/History of A-Fib/PAF?: No Current PO Anticoag Therapy: DIANA Caraballo MD Nov 22, 2020 21:43
[2020-11-22] MEDS ORDERED: PRED10TA2 PO (21:45)
[2020-11-22] MEDS ORDERED: MUCI600T31 PO (21:46)
[2020-11-22] MEDS ORDERED: METH125VL IM (21:55)
[2020-11-22] MEDS ORDERED: JARD1TAB3 PO (21:55)
[2020-11-22 21:57] LABS: ABG BASE EXCESS -1.2 (-2.0-2.0); ABG HCO3 23.2 MEQ/L (22.0-26.0); ABG O2 SATURATION 99.4 % (95.0-99.0); ABG PARTIAL PRESSURE CO2 38.1 mmHg (35.0-45.0); ABG PARTIAL PRESSURE O2 304.1 mmHg (75.0-100.0); ABG STANDARD HCO3 23.5 MEQ/L (22.0-26.0); ABG TOTAL CO2 24.4 MEQ/L (23.0-31.0); ABG pH (ARTERIAL) 7.403 UNITS (7.350-7.450)
[2020-11-22] MEDS ORDERED: ALBUTEROL SULFATE 2.5 MG/0.5 ML INH NEB SOLN NEB PRN (22:35)
[2020-11-22] MEDS ORDERED: ISOVUE-370 76% 100ML VIAL As Ordered ONE (22:40)
[2020-11-22] MEDS ORDERED: FUROSEMIDE 40MG/4ML VIAL (J1940) IV ONE (22:40)
[2020-11-23] VITALS (10 sets, daily range): BP systolic 111–137; BP diastolic 59–91
[2020-11-23] MEDS ORDERED: LEVALBUTEROL 1.25 MG/0.5 ML CONCENTRATE NEB INH PRN (00:45)
[2020-11-23] MEDS ORDERED: NITROGLYCERIN 0.4 MG SUBL TABLET SL PRN (01:00)
[2020-11-23] MEDS ORDERED: GLUCOSE 4GM CHEW TABLET PO PRN (01:10)
[2020-11-23] MEDS ORDERED: DEXTROSE 50% 50 ML SYRINGE IV PRN (01:10)
[2020-11-23] MEDS ORDERED: GLUCAGON INJ 1MG VIAL SC PRN (01:10)
[2020-11-23] MEDS: LATANOPROST 0.005% OPHTH SOLN 2.5 ML OU SCH ×2 (01:15→20:20)
[2020-11-23] MEDS: CitaloPRAM (CeleXA) 20 MG TAB PO SCH ×2 (01:27→20:19)
[2020-11-23] MEDS: MONTELUKAST 10 MG TAB PO SCH ×2 (01:27→20:19)
[2020-11-23] MEDS: CALCIUM/VITAMIN D 500 MG TAB PO SCH ×3 (01:27→20:19)
[2020-11-23] MEDS: CLOPIDOGREL 75 MG TAB PO SCH ×2 (01:27→20:19)
[2020-11-23] MEDS: CEFDINIR 300 MG CAP (OMNICEF) PO SCH ×3 (01:27→20:19)
[2020-11-23] MEDS: HumaLOG INSULIN (NovoLOG) PER UNIT SC SCH ×4 (01:29→18:56)
[2020-11-23] MEDS: IPRATROPIUM 0.5MG/ALBUTEROL 2.5MG INH SOL UD 3ML (DUONEB) NEB SCH ×4 (01:36→19:59)
[2020-11-23] MEDS ORDERED: methylPREDNISolone 125MG 2ML VIAL IV SCH (04:00)
[2020-11-23 04:33] LABS: HEMATOCRIT 42.2 % (42.0-52.0); HEMOGLOBIN 14.1 g/dl (13.5-17.5); MEAN CORPUSCULAR HEMOGLOBIN 31.5 pg (27.0-33.0); MEAN CORPUSCULAR HGB CONC 33.4 g/dl (32.0-36.5); MEAN CORPUSCULAR VOLUME 94.2 fl (80.0-96.0); PLATELET COUNT, AUTOMATED 221 10^3/uL (150-450); RED BLOOD COUNT 4.48 10^6/uL (4.30-6.10); WHITE BLOOD COUNT 9.8 10^3/uL (4.0-10.0)
[2020-11-23 05:14] LABS: ALBUMIN 3.7 GM/DL (3.2-5.2); ALT/SGPT 79 U/L (12-78); BILIRUBIN,TOTAL 0.5 MG/DL (0.2-1.0); BLOOD UREA NITROGEN 29 MG/DL (7-18); CALCIUM LEVEL 8.4 MG/DL (8.8-10.2); CARBON DIOXIDE LEVEL 31 MEQ/L (21-32); CHLORIDE LEVEL 98 MEQ/L (98-107); GLOMERULAR FILTRATION RATE > 60.0 (>49); GLUCOSE, FASTING 181 MG/DL (70-100); POTASSIUM SERUM 3.7 MEQ/L (3.5-5.1); SODIUM LEVEL 133 MEQ/L (136-145); TOTAL PROTEIN 7.4 GM/DL (6.4-8.2)
[2020-11-23 06:00] LABS: ABG BASE EXCESS 4.4 (-2.0-2.0); ABG HCO3 28.1 MEQ/L (22.0-26.0); ABG O2 SATURATION 98.4 % (95.0-99.0); ABG PARTIAL PRESSURE O2 118.1 mmHg (75.0-100.0); ABG STANDARD HCO3 28.4 MEQ/L (22.0-26.0); ABG TOTAL CO2 29.3 MEQ/L (23.0-31.0); ABG pH (ARTERIAL) 7.476 UNITS (7.350-7.450)
[2020-11-23] MEDS ORDERED: LevoFLOXacin 750 MG TABLET PO SCH (06:00)
--- NOTE | 2020-11-23 07:49 | ECGEPIP ---
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
--- NOTE | 2020-11-23 08:02 | ECGEPIP ---
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
[2020-11-23] MEDS ORDERED: IMMUNE GLOBULIN IM SCH (09:00)
[2020-11-23] MEDS ORDERED: ALBUTEROL SULFATE 2.5 MG/0.5 ML INH NEB SOLN INH SCH (09:00)
[2020-11-23] MEDS ORDERED: HIZENTRA SC SCH (09:00)
--- NOTE | 2020-11-23 09:54 | ECGEPIP ---
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: RUSLAN : 1950 Requested By: DIANA HERNANDEZ Order Number: [id number] Reading MD: Eloise Espinosa Measurements Intervals [place] Rate: 85 P: 26 [place]: 124 QRS: -1 QRSD: 88 T: 160 QT: 390 QTc: 464 Interpretive Statements Poor data quality, interpretation may be adversely affected Normal sinus rhythm LAE Left ventricular hypertrophy with repolarization abnormality ( R in aVL , Sokolow-Cooper , Ruperto product , Romhilt Cooper , Ruperto product , Romhilt-Gavin ) Cannot rule out Septal infarct , age undetermined LATERAL STT W ABN POSSIBLY ASSOC WITH LEFT VENTRICULAR HYPERTROPHY OR OTHER // ALSO NONSPECIFIC INF STTABN sIMILAR TO 11/22/20 Electronically Signed on 11-23-2020 9:54:41 EDT by Eloise Espinosa
[2020-11-23] MEDS: BRIMONIDINE 0.1% OPHTH SOLN 5 ML OU SCH ×2 (10:11→18:52)
[2020-11-23] MEDS: ENOXAPARIN 40MG/0.4ML SYRINGE (J1650 PER 10MG) SC SCH (10:11)
[2020-11-23] MEDS: PANTOPRAZOLE 40MG TAB (PROTONIX) PO SCH (10:12)
--- NOTE | 2020-11-23 10:29 | REPVR ---
PROCEDURE INFORMATION: Exam: US Abdomen, Limited; Right Upper Quadrant Exam date and time: 11/23/2020 7:03 AM Age: 70 years old Clinical indication: Abnormal findings; Abnormal lab test; Abnormal function test of other organs/systems; Additional info: Transaminitis TECHNIQUE: Imaging protocol: US abdomen. Real time ultrasound with image documentation. Limited exam focused on the right upper quadrant. COMPARISON: CT ABD PELVIS WITH CONTRAST 06/11/2016 3:55 PM FINDINGS: Liver: Fatty infiltration of the liver. Gallbladder: No cholelithiasis, gallbladder wall edema, or pericholecystic fluid. Technologist reported negative sonographic Grant sign. Common bile duct: Normal caliber of the common bile duct measuring 2 mm in diameter. Pancreas: Fatty replacement of the visualized proximal pancreas without obscuration of the distal pancreas by bowel gas. Right kidney: Normal right renal morphology. No hydronephrosis. IMPRESSION: Fatty infiltration of the liver. Electronically signed by: Joby Kent On 11/23/2020 10:29:27 AM
[2020-11-23] MEDS: BUDESONIDE 0.5 MG/2 ML INHALATION SUSPENSION INH SCH ×2 (11:17→19:59)
[2020-11-23] MEDS: FORMOTEROL FUMARATE 20 MCG/2 ML INHALATION SOLUTION (PERFOROMIST) INH SCH ×2 (11:17→19:59)
[2020-11-23] MEDS: predniSONE 20 MG TAB PO SCH (12:34)
[2020-11-23] MEDS ORDERED: FUROSEMIDE 40MG/4ML VIAL (J1940) IV ONE (13:00)
--- NOTE | 2020-11-23 14:39 | IPNPDOC ---
Subjective Date Seen The patient was seen on 11/23/20. Subjective Chief Complaint/HPI Dyspnea has improved. Feeling much better. Not requiring any BIPAP. oxygen requirement only 0.5 to 1 liters at rest. Echo shows severe aortic stenoisi with aortic valve area of 0.7cm2 and reduced ef of 38%. Objective Physical Examination General Exam: Positive: Alert, Cooperative, No Acute Distress Eye Exam: Positive: PERRLA, Conjunctiva & lids normal, EOMI; Negative: Sclera icteric Neck Exam: Positive: Supple; Negative: JVD, thyromegaly Chest Exam: Positive: Normal air movement, Other (bilateral basal crackles) Heart Exam: Positive: Rate Normal, Regular Rhythm, Normal S1, Normal S2, Murmurs (systolic murmur); Negative: Rubs Telemetry: Positive: No significant arrhythmia Abdomen Exam: Positive: Normal bowel sounds, Soft; Negative: Tenderness, Hepatospenomegaly Extremity Exam: Negative: Clubbing, Cyanosis, Edema Assessment /Plan Assessment is a 70 year old male with PMH of Aortic stenosis s/p bovine aortic valve replacement in 2009, COPD with chronic hypoxic respiratory failure, steroid dependent, bronchiectasis with chronic antibiotic therapy alternating between cefdinir and ciprofloxacin, common variable immunodeficiency, coronary artery disease status post multiple stents, peripheral artery disease status post femoral left femoral endarterectomy 2018 and right stents , diabetes, hypertension, MYKEL, chronic thoracic vertebral body fractures, glaucoma, depression, iron deficiency. Vitamin B-12 deficiency, hearing loss, presented to the emergency room for dyspnea for 3-4 weeks has been feeling short of breath for 3 or 4 weeks. 5 days echo after eating out at a restaurant for his birthday, the his shortness of breath became acutely worse. He saw his PCP and was started on treatment for COPD exacerbation without any improvement. On the day of admission his shortness of breath got much worse to the point that he was not able walk more than a few feet, eat and or even speak , so was brought to the emergency room. He was found to be in acute hypercarbic and hypoxic respiratory failure which was initially felt to be due to COPD exacerbation. He was started on BiPAP and given a dose of Lasix, a dose of methylprednisolone along with the standard COPD treatments. He had a negative balance of 1600 mL overnight with a dramatic improvement of his symptoms in the morning. So I think his dyspnea was due to CHF exacerbation rather than COPD. His prelim echo result was communicated to me by Dr welch which showed EF of 38% and severe aortic stenosis with a valve area of less than 0.7 cm. Acute systolic CHF exacerbation Give 1 more dose of Lasix Appears to be euvolemic at this time Fluid restriction 1.8 L Will stop diltiazem and start on coreg. Acute on chronic respiratory failure with hypoxia and hypercarbia Due to systolic CHF exacerbation Now resolved He is only requiring 0.5 L of oxygen at rest. . He tells me that he uses 2 L at home COPD Continue home Inhalers and nebs and home dose of prednisone 20 mg per day, Singulair Continue Bactrim for PJP prophylaxis Bronchiectasis Continue with antibiotic therapy as per outpatient schedule SIRS/lactic acidosis Detected dyspnea and acute CHF Leukocytosis improved this morning. Lactate improved Elevated Troponin due acute CHF discussed the elevated troponin with , the patients Stopper Maker Helper who felt that the patient could be cared for here because the patient didnt have an acute elevation in his trop. He also has a hx of elevated troponins in the past CAD w stents x 13 / PAD s/p left femoral endarterectomy and right stenting continue Clopidogrel / allergic to ASA / no Pivastatin on our formulary CVID IVIG weekly NIDDM Fingerstick before meals , lispro as per sliding scale HTN Diltiazem will has to be changed in view of his reduced EF. will start on low dose coreg Chronic thoracic vertebral body compression fracture / Osteoporosis calcium w vitamin D / Ibandronate monthly Oral thrush Nystatin Plan/VTE VTE Prophylaxis Ordered?: Yes VS, I&O, 24H, Marisa Vital Signs/I&O Vital Signs Date Time Temp Pulse Resp B/P (MAP) Pulse Ox O2 Delivery O2 Flow Rate FiO2 11/23/20 12:00 0.5 11/23/20 10:12 93 118/68 11/23/20 08:00 97.2 20 93 Room Air 11/23/20 06:00 25 I&O- Last 24 Hours up to 6 AM 11/23/20 06:00 Intake Total 350 ml Output Total 1920 ml Balance -1570 ml Laboratory Data 24H LABS Laboratory Tests 2 11/22/20 17:55: Immature Granulocyte % (Auto) 1.4, Neutrophils (%) (Auto) 91.6H, Lymphocytes (%) (Auto) 4.0L, Monocytes (%) (Auto) 2.8, Eosinophils (%) (Auto) 0.0, Basophils (%) (Auto) 0.2, Neutrophils # (Auto) 19.2H, Lymphocytes # (Auto) 0.8L, Monocytes # (Auto) 0.6, Eosinophils # (Auto) 0.0, Basophils # (Auto) 0.0, Nucleated Red Bl ood Cells % (auto) 0.0, Anion Gap 9, Glomerular Filtration Rate > 60.0, Lactic Acid Level 7.5*H, Calcium Level 8.6L, Total Bilirubin 0.4, Direct Bilirubin 0.2, Aspartate Amino Transf (AST/SGOT) 51H, Alanine Aminotransferase (ALT/SGPT) 88H, Alkaline Phosphatase 68, LP-Uya-A-Type Natriuretic Peptide 8538H, Total Protein 7.5, Albumin 3.9, Albumin/Globulin Ratio 1.1, Thyroid Stimulating Hormone (TSH) 2.000, Thyroxine (T4) 4.6 11/22/20 18:03: POC pH (Misc Panel) 7.296L, POC Base Excess (Misc Panel) 1.0, POC Saturated Percent O2 (Misc) 100H, POC pO2 (Misc Panel) 281.0H, POC pCO2 (Misc Panel) 55.6H, POC HCO3 (Misc Panel) 27.1H, POC Total CO2 (Misc Panel) 29.0H 11/22/20 18:05: POC Total CO2 (Misc Panel) 24.0, POC Glucose (Misc Panel) 241H, POC Sodium (Misc Panel) 136, POC Potassium (Misc Panel) 4.7, POC Chloride (Misc Panel) 96L, POC Blood Urea Nitrogen (Misc Panel 28H, POC Ionized Calcium (Misc Panel) 4.7, POC Creatinine (Misc Panel) 0.8, POC Hematocrit (Misc Panel) 46.0 11/22/20 18:09: POC Troponin I (Misc) 0.16H 11/22/20 20:44: POC Troponin I (Misc) 0.13H 11/22/20 21:51: Blood Gas Bicarbonate Standard 23.5, Arterial Blood pH 7.403, Arterial Blood Partial Pressure CO2 38.1, Arterial Blood Partial Pressure O2 304.1H, Arterial Blood Total CO2 24.4, Arterial Blood HCO3 23.2, Arterial Blood Base Excess -1.2, Arterial Blood Oxygen Saturation 99.4H 11/22/20 22:27: D-Dimer, Quantitative 361.67, Lactic Acid Followup at 4 Hours 1.6 11/23/20 01:28: Bedside Glucose (Misc Panel) 190H 11/23/20 04:06: Nucleated Red Blood Cells % (auto) 0.0, Anion Gap 4L, Glomerular Filtration Rate > 60.0, Calcium Level 8.4L, Total Bilirubin 0.5, Aspartate Amino Transf (AST/SGOT) 35, Alanine Aminotransferase (ALT/SGPT) 79H, Alkaline Phosphatase 61, Troponin I 0.40H, Total Protein 7.4, Albumin 3.7, Albumin/Globulin Ratio 1.0 11/23/20 05:49: Blood Gas Bicarbonate Standard 28.4H, Arterial Blood pH 7.476H, Arterial Blood P artial Pressure CO2 39.0, Arterial Blood Partial Pressure O2 118.1H, Arterial Blood Total CO2 29.3, Arterial Blood HCO3 28.1H, Arterial Blood Base Excess 4.4H, Arterial Blood Oxygen Saturation 98.4 11/23/20 09:08: Troponin I 0.40H 11/23/20 12:22: Bedside Glucose (Misc Panel) 158H CBC/BMP Laboratory Tests 11/22/20 17:55 11/23/20 04:06 Microbiology Microbiology 11/22/20 Blood Culture, Received Pending 11/22/20 Respiratory Virus Panel (PCR) ([facility]) - Final, Complete 11/22/20 Blood Culture, Received Pending DENVER RAMOS MD Nov 23, 2020 14:39
[2020-11-23] MEDS ORDERED: FAMOTIDINE 20 MG TAB PO SCH (21:00)
[2020-11-23] MEDS ORDERED: HumaLOG INSULIN (NovoLOG) PER UNIT SC SCH (21:00)
[2020-11-24] VITALS: BP 114/75
[2020-11-24] MEDS ORDERED: UNRESOLVED PATIENT OWN MED ORDER XX SCH (00:01)
[2020-11-24] MEDS: IPRATROPIUM 0.5MG/ALBUTEROL 2.5MG INH SOL UD 3ML (DUONEB) NEB SCH ×4 (02:15→13:51)
[2020-11-24 04:00] VITALS: BP 127/86
[2020-11-24 05:55] LABS: BASO % 0.1 % (0.0-1.0); HEMATOCRIT 40.3 % (42.0-52.0); HEMOGLOBIN 13.6 g/dl (13.5-17.5); LYMPH # 0.6 10^3/uL (1.5-5.0); LYMPH % 4.5 % (24.0-44.0); MEAN CORPUSCULAR HEMOGLOBIN 31.6 pg (27.0-33.0); MEAN CORPUSCULAR HGB CONC 33.7 g/dl (32.0-36.5); MEAN CORPUSCULAR VOLUME 93.5 fl (80.0-96.0); MONO # 1.1 10^3/uL (0.0-0.8); MONO % 7.9 % (2.0-8.0); NEUTROPHILS # 11.9 10^3/uL (1.5-8.5); NEUTROPHILS % 86.6 % (36.0-66.0); PLATELET COUNT, AUTOMATED 229 10^3/uL (150-450); RED BLOOD COUNT 4.31 10^6/uL (4.30-6.10); WHITE BLOOD COUNT 13.7 10^3/uL (4.0-10.0)
[2020-11-24 06:24] LABS: BLOOD UREA NITROGEN 50 MG/DL (7-18); CALCIUM LEVEL 8.6 MG/DL (8.8-10.2); CARBON DIOXIDE LEVEL 32 MEQ/L (21-32); CHLORIDE LEVEL 100 MEQ/L (98-107); CREATININE FOR GFR 0.74 MG/DL (0.70-1.30); GLOMERULAR FILTRATION RATE > 60.0 (>49); GLUCOSE, FASTING 156 MG/DL (70-100); SODIUM LEVEL 135 MEQ/L (136-145)
[2020-11-24] MEDS: FORMOTEROL FUMARATE 20 MCG/2 ML INHALATION SOLUTION (PERFOROMIST) INH SCH (07:05)
[2020-11-24] MEDS: BUDESONIDE 0.5 MG/2 ML INHALATION SUSPENSION INH SCH (07:05)
[2020-11-24] MEDS: ENOXAPARIN 40MG/0.4ML SYRINGE (J1650 PER 10MG) SC SCH (08:26)
[2020-11-24] MEDS: PANTOPRAZOLE 40MG TAB (PROTONIX) PO SCH (08:27)
[2020-11-24] MEDS: CEFDINIR 300 MG CAP (OMNICEF) PO SCH (08:27)
[2020-11-24] MEDS: HumaLOG INSULIN (NovoLOG) PER UNIT SC SCH ×2 (08:27→11:38)
[2020-11-24] MEDS: CALCIUM/VITAMIN D 500 MG TAB PO SCH (08:27)
[2020-11-24] MEDS: predniSONE 20 MG TAB PO SCH (08:27)
[2020-11-24 08:28] VITALS: BP 120/84
[2020-11-24] MEDS ORDERED: CARVedilol 3.125 MG TAB PO SCH (09:00)
[2020-11-24] MEDS: BRIMONIDINE 0.1% OPHTH SOLN 5 ML OU SCH (09:00)
[2020-11-24] MEDS ORDERED: TORS20TA2 PO (11:23)
[2020-11-24] MEDS ORDERED: CORE6.25 PO (11:23)
--- NOTE | 2020-11-24 11:46 | DS.PDOC ---
Discharge Summary General Date of Admission Nov 22, 2020 at 21:20 Date of Discharge 11/24/20 Discharge Summary PROCEDURES PERFORMED DURING STAY: [None]. DISCHARGE DIAGNOSES: Acute systolic CHF Acute on chronic respiratory failure with hypoxia and hypercarbia SECONDARY DIAGNOSIS: Aortic valve replaced by bovine valve for aortic stenosis in 2009. COPD / chronic hypoxic O2 respiratory failure (2L) / steroid dependence on Bactrim for PJP prophylaxis on wed, wed, Wednesday Bronchiectasis on chronic antibiotic cycles of 2 week on and 2 weeks off alternating between cefdinir/ ciprofloxacin Common variable immunodeficiency (CVID) Chronic CAD w stents x 13 / chronically elevated troponin PAD s/p left femoral endarterectomy and right stenting in 2018 NIDDM Glaucoma Hearing Loss MYKEL on CPAP Essential HTN Depression Chronic thoracic vertebral body compression fracture / Osteoporosis Iron deficiency Vit B12 deficiency Oral thrush Eyelid procedure Tongue biopsy COMPLICATIONS/CHIEF COMPLAINT: Dyspnea. HOSPITAL COURSE: is a 70 year old male with PMH of Aortic stenosis s/p bovine aortic valve replacement in 2009, COPD with chronic hypoxic respiratory failure, steroid dependent, bronchiectasis with chronic antibiotic therapy alternating between cefdinir and ciprofloxacin, common variable immuno deficiency, coronary artery disease status post multiple stents, peripheral artery disease status post femoral left femoral endarterectomy 2018 and right stents , diabetes, hypertension, MYKEL, chronic thoracic vertebral body fractures, glaucoma, depression, iron deficiency. Vitamin B-12 deficiency, hearing loss, presented to the emergency room for dyspnea for 3-4 weeks has been feeling short of breath for 3 or 4 weeks. 5 days echo after eating out at a restaurant for his birthday, the his shortness of breath became acutely worse. He saw his PCP and was started on treatment for COPD exacerbation without any improvement. On the day of admission his shortness of breath got much worse to the point that he was not able walk more than a few feet, eat and or even speak , so was brought to the emergency room. He was found to be in acute hypercarbic and hypoxic respiratory failure which was initially felt to be due to COPD exacerbation. He was started on BiPAP and given a dose of Lasix, a dose of methylprednisolone along with the standard COPD treatments. He had a negative balance of 1600 mL overnight with a dramatic improvement of his symptoms in the morning. So I think his dyspnea was due to CHF exacerbation rather than COPD. His prelim echo result was communicated to me by Dr welch which showed EF of 38% and severe aortic stenosis with a valve area of less than 0.7 cm. Acute systolic CHF exacerbation torsemide 20 mg daily, fluid restriction 1.8 liters/ 24 hours stopped diltiazem and started on coreg. Discussed with Dr Bal environmental protection forester pool finisher covering for Dr Gould. Patient will need to be seen within 1 week in the office for echo and medication adjustment. Instructed to call Dr Gould's office on 11/25/20 and make appointment [facility]. Acute on chronic respiratory failure with hypoxia and hypercarbia Due to systolic CHF exacerbation Now resolved He is not requiring any oxygen at rest. He tells me that he uses 2 L at home all the time Likely with better fluid status he may not need much oxygen at home. COPD Continue home Inhalers and nebs and home dose of prednisone 20 mg per day, Singulair Continue Bactrim for PJP prophylaxis Bronchiectasis Continue with antibiotic therapy as per outpatient schedule SIRS/lactic acidosis Detected dyspnea and acute CHF Leukocytosis improved this morning. Lactate improved Elevated Troponin due acute CHF discussed the elevated troponin with , the patients Forest Fire Prevention Manager who felt that the patient could be cared for here because the patient didnt have an acute elevation in his trop. He also has a hx of elevated troponins in the past CAD w stents x 13 / PAD s/p left femoral endarterectomy and right stenting continue Clopidogrel / allergic to ASA / Pitavastatin CVID IVIG weekly NIDDM Continue home meds. discuss with PMD whether he should continue jardiance now that he is going to be on fluid restriction. HTN Diltiazem stopped due to his reduced EF. started on low dose coreg and torsemide Chronic thoracic vertebral body compression fracture / Osteoporosis calcium w vitamin D / Ibandronate monthly Oral thrush Nystatin DISCHARGE MEDICATIONS: Please see below. ALLERGIES: Please see below. PHYSICAL EXAMINATION ON DISCHARGE: VITAL SIGNS: Please see below. General Exam: Positive: Alert, Cooperative, No Acute Distress Eye Exam: Positive: PERRLA, Conjunctiva & lids normal, EOMI; Negative: Sclera icteric Neck Exam: Positive: Supple; Negative: JVD, thyromegaly Chest Exam: Positive: Normal air movement, Other (bilateral basal crackles) Heart Exam: Positive: Rate Normal, Regular Rhythm, Normal S1, Normal S2, Murmurs (systolic murmur); Negative: Rubs Telemetry: Positive: No significant arrhythmia Abdomen Exam: Positive: Normal bowel sounds, Soft; Negative: Tenderness, Hepatosplenomegaly Extremity Exam: Negative: Clubbing, Cyanosis, Edema LABORATORY DATA: Please see below. ACTIVITY: [As tolerated]. DIET: carb consistent, 1.8 L/ fluid restriction DISCHARGE PLAN: Home DISCHARGE INSTRUCTIONS: follow up with Forest Fire Prevention Manager in 1 week ITEMS TO FOLLOWUP ON ON OUTPATIENT: Final echo report. DISCHARGE CONDITION: [Stable]. TIME SPENT ON DISCHARGE: 35 minutes. Vital Signs/I&Os Vital Signs Date Time Temp Pulse Resp B/P (MAP) Pulse Ox O2 Delivery O2 Flow Rate FiO2 11/24/20 08:28 99 120/84 11/24/20 04:00 0.5 11/24/20 04:00 98.1 17 94 Nasal Cannula 11/23/20 06:00 25 I&O- Last 24 Hours up to 6 AM 11/24/20 06:00 Intake Total 1550 ml Output Total 2200 ml Balance -650 ml Laboratory Data Labs 24H Laboratory Tests 2 11/23/20 12:22: Bedside Glucose (Misc Panel) 158H 11/23/20 18:52: Bedside Glucose (Misc Panel) 213H 11/23/20 20:23: Bedside Glucose (Misc Panel) 302H 11/24/20 05:21: Immature Granulocyte % (Auto) 0.9, Neutrophils (%) (Auto) 86.6H, Lymphocytes (%) (Auto) 4.5L, Monocytes (%) (Auto) 7.9, Eosinophils (%) (Auto) 0.0, Basophils (%) (Auto) 0.1, Neutrophils # (Auto) 11.9H, Lymphocytes # (Auto) 0.6L, Monocytes # (Auto) 1.1H, Eosinophils # (Auto) 0.0, Basophils # (Auto) 0.0, Nucleated Red Blood Cells % (auto) 0.0, Anion Gap 3L, Glomerular Filtration Rate > 60.0, Calcium Level 8.6L 11/24/20 11:24: Bedside Glucose (Misc Panel) 179H CBC/BMP Laboratory Tests 11/24/20 05:21 FSBS Laboratory Tests Test 11/23/20 12:22 11/23/20 18:52 11/23/20 20:23 11/24/20 11:24 Range/Units Bedside Glucose (Misc Panel) 158 213 302 179 80-115 MG/DL Microbiology Microbiology 11/22/20 Blood Culture - Preliminary, Resulted No growth after 24 hours . All specim... 11/22/20 Respiratory Virus Panel (PCR) ([facility]) - Final, Complete 11/22/20 Blood Culture - Preliminary, Resulted No growth after 24 hours . All specim... Discharge Medications Scheduled Aclidinium [place] (Tudorza Pressair) 400 Mcg Aer.pow.ba, 1 PUFF INH BID, (Reported) Albuterol Sulf (Albuterol Sulfate) 2.5 Mg/3 Ml Nebu, 2.5 MG INH QID, (Reported) MIXES WITH IPRATROPIUM Ascorbic Acid (Ascorbic Acid) 500 Mg Tablet, 1,000 MG PO DAILY, (Reported) Brimonidine Tartrate (Alphagan P) 0.1% 5ML Drops, 1 DROP OU BID, (Reported) USES MORNING/DINNERTIME Budesonide (Pulmicort) 0.5 Mg/2 Ml Mely, 0.5 MG INH BID, (Reported) USED WITH PERFOROMIST, USES 30MIN AFTER ALBUTEROL/IPRATROPIUM NEB Calcium Citrate/Vitamin D3 (Calcium Citrate-Vit D3 Caplet) 1 Tab Tab, 1 TAB PO BID, (Reported) Carvedilol (Coreg) 6.25 Mg Tablet, 1 TAB PO BID Cefdinir (Cefdinir) 300 Mg Capsule, 300 MG PO BID, (Reported) started 11/10/20 x 2 weeks Cholecalciferol (Vitamin D3) (Vitamin D3) 1,000 Unit Tablet, 2,000 UNITS PO DAILY, (Reported) Citalopram Hydrobromide (Celexa) 20 Mg Tablet, 20 MG PO QHS, (Reported) Clopidogrel Bisulfate (Plavix) 75 Mg Tab, 75 MG PO QHS, (Reported) Empagliflozin (Jardiance) 25 Mg Tablet, 25 MG PO DAILY, (Reported) Famotidine (Famotidine) 40 Mg Tablet, 40 MG PO QHS, (Reported) Ferrous Sulfate (Ferrous Sulfate) 325 Mg Tab, 325 MG PO DAILY, (Reported) Fluconazole (Fluconazole) 200 Mg Tablet, 200 MG PO QWEEK, (Reported) FRIDAYS Folic Acid (Folic Acid) 1 Mg Tab, 1 MG PO DAILY, (Reported) Formoterol Fumarate (Perforomist) 20 Mcg/2 Ml Neb, 20 MCG INH BID, (Reported) USED WITH PULMICORT, USES 30MIN AFTER ALBUTEROL/IPRATROPIUM NEB Guaifenesin (Mucinex) 600 Mg Tab.er.12h, 600 MG PO BID, (Reported) Ibandronate Sodium (Boniva) 150 Mg Tablet, 150 MG PO QMONTH, (Reported) TAKES ON 10TH OF EACH MONTH Immun Glob G(IgG)/Pro/Iga 0-50 (Hizentra 1 Gram/5 ml Vial) 1 Gm/5 Ml Vial, 14 MG SC QWEEK, (Reported) SATURDAYS Ipratropium [place] (Ipratropium [place]) 0.5 Mg/2.5 Ml Soln, 0.5 MG INH QID, (Reported) MIXES WITH ALBUTEROL L.acidoph/L.bulg/B.bif/S.therm (Bacid Caplet) 1 Each Tablet, 1 TAB PO DAILY, (R eported) Metformin HCl (Metformin HCl) 500 Mg Tab, 500 MG PO TID, (Reported) Montelukast Sodium (Singulair) 10 Mg Tab, 10 MG PO QHS, (Reported) Omeprazole (Omeprazole) 40 Mg Cap, 40 MG PO DAILY, (Reported) Pitavastatin Calcium (Livalo) 2 Mg Tablet, 2 MG PO QHS, (Reported) Prednisone (Prednisone) 10 Mg Tablet, 20 MG PO DAILY, (Reported) Sulfamethoxazole/Trimethoprim (Bactrim Ds Tablet) 1 Each Tablet, 1 TAB PO 3XW, (Reported) MON/WED/FRI Torsemide (Torsemide) 20 Mg Tablet, 1 TAB PO DAILY Travoprost (Travatan Z) 50 Drop/2.5 Ml Soln, 1 DROP OU QHS, (Reported) Vitamin B Complex (Vitamin B Complex) 1 Each Tablet, 1 TAB PO DAILY, (Reported) Scheduled PRN Nitroglycerin (Nitrostat) 0.4 Mg Subl, 0.4 MG SL NITRO PRN for CHEST PAIN, (Reported) Allergies Coded Allergies: fexofenadine (Verified Allergy, Severe, anaphylaxis, 09/05/19) quinidine (Verified Allergy, Intermediate, HIVES, 09/05/19) metoprolol (Verified Adverse Reaction, Intermediate, d/t lung condition, 09/05/19) pravastatin (Verified Adverse Reaction, Intermediate, MUSCLE WEAKNESS, 09/05/19) aspirin (Verified Adverse Reaction, Mild, RECTAL BLEEDING, 09/05/19) furosemide (Verified Adverse Reaction, Mild, dizziness, 09/05/19) levofloxacin (Verified Adverse Reaction, Mild, MUSCLE CRAMPING, 09/05/19) DENVER RAMOS MD Nov 24, 2020 11:46
[2020-11-24 12:00] VITALS: BP 123/74
--- NOTE | 2020-11-25 08:48 | ECHO ---
ECHOCARDIOGRAM DATE OF PROCEDURE: 11/23/2020 Age: 70 Gender: Male Height: 163 cm Weight: 64 kg REFERRING PHYSICIAN: Analisa Pedersen M.D. INDICATION: Dyspnea, unspecified. MEASUREMENTS: 2D Measurements: Aortic root 4.0 cm Proximal ascending aorta 4.0 cm Aortic annulus 2.5 cm Left atrium 4.2 cm Interventricular septum 1.38 cm Posterior wall 1.44 cm Left ventricle diastole 5.0 cm Left ventricle asystole 4.1 cm Inferior vena cava 1.8 cm with reduced respiratory variations suggestive of elevated CVP (CVP estimated to be 10-15 mmHg) Right ventricle 3.1 cm Doppler Measurements: Peak aortic valve velocity 425 cm/s Peak aortic valve gradient 72 mmHg Mean aortic valve gradient 49 mmHg Aortic valve VTI 95.2 cm/s Aortic valve area (continuity equation) 0.71 cm2 Dimensionless index 0.145 LVOT velocity 57.4 cm/s LVOT VTI 13.8 cm Trace mitral regurgitation Mitral E velocity 77.6 cm/s Mitral A velocity 97.6 cm/s Mitral deceleration time 108 msec Trace tricuspid regurgitation No pulmonic regurgitation Pulmonary artery acceleration time 119 ms suggestive of normal PA systolic pressure. MITRAL ANNULAR TISSUE DOPPLER E prime septal 4.7 cm/s E prime lateral 6.2 cm/s DESCRIPTION: Rhythm was sinus. The image quality was fair. No pericardial effusion. This was a 2D, M-mode, color flow Doppler and pulsed wave Doppler examination and included mitral annular tissue Doppler. CONCLUSIONS: 1. Well-seated abnormal aortic valve bioprosthesis with severe thickening and calcification and severe reduction of mobility of the aortic cusp. Severe aortic stenosis. Trace aortic regurgitation. Mean aortic valve gradient 49 mmHg. Aortic valve area (VTI, continuity creation) 0.71 cm2, dimensions index 0.145. Trace aortic regurgitation. 2. Mild concentric left ventricular hypertrophy with moderate global left ventricular (LV) hypokinesis, left ventricular ejection fraction (LVEF) 38% (3D). Grade 1 LV diastolic dysfunction (impaired relaxation filling pattern). 3. Mild dilatation of the aortic root at the level of the sinuses of Valsalva and proximal ascending aorta. 4. Normal right ventricle size and systolic function. Suggestive of normal pulmonary PA systolic pressure. Suggestive of mild elevation of CVP (10-15 mmHg). 5. Mild mitral annular calcification. Trace mitral regurgitation. 6. Mild left atrial dilatation. ADDITIONAL COMMENTS AND RECOMMENDATIONS: Results of this echocardiogram Doppler were provided by cell phone call to Dr. Yakelin Parker. I recommend patient be seen by the valve clinic at [facility] in [place] for consideration of valve replacement. Recommend infective endocarditis prophylaxis prior to dental procedures likely to produce transient bacteremia.
[2020-11-25] MEDS ORDERED: BACTRIM 160MG/800MG DS TAB PO SCH (09:00)
[2020-11-29] MEDS ORDERED: FLUCONAZOLE 100 MG TAB PO SCH (09:00)
== END 2020-11-24 14:20 | disposition home or self-care (01) | DRG 291 ==
LOC: M ED 17:34 → M ED INP 21:20 → M ICU 11-23 00:08 → M PCU 11-23 21:09
PROVIDERS: ADMIT Internal Medicine; ATTEND Internal Medicine Nephrology
DX: I11.0 Hypertensive heart disease with heart failure (principal); J96.21 Acute and chronic respiratory failure with hypoxia; J96.22 Acute and chronic respiratory failure with hypercapnia; J44.1 Chronic obstructive pulmonary disease with (acute) exacerbation; D83.9 Common variable immunodeficiency, unspecified; E87.2 Acidosis; B37.0 Candidal stomatitis; I50.23 Acute on chronic systolic (congestive) heart failure; I25.10 Atherosclerotic heart disease of native coronary artery without angina pectoris; E11.51 Type 2 diabetes mellitus with diabetic peripheral angiopathy without gangrene; H91.90 Unspecified hearing loss, unspecified ear; H40.9 Unspecified glaucoma; Z66 Do not resuscitate; G47.33 Obstructive sleep apnea (adult) (pediatric); I35.0 Nonrheumatic aortic (valve) stenosis; F32.9 Major depressive disorder, single episode, unspecified; Z95.3 Presence of xenogenic heart valve; M80.08XD Age-related osteoporosis with current pathological fracture, vertebra(e), subsequent encounter for fracture with routine healing; E53.8 Deficiency of other specified B group vitamins; E61.1 Iron deficiency; Z87.891 Personal history of nicotine dependence; Z95.5 Presence of coronary angioplasty implant and graft; Z79.02 Long term (current) use of antithrombotics/antiplatelets; Z79.52 Long term (current) use of systemic steroids; Z79.899 Other long term (current) drug therapy; Z88.1 Allergy status to other antibiotic agents; Z88.6 Allergy status to analgesic agent; Z88.8 Allergy status to other drugs, medicaments and biological substances; Z20.822 Contact with and (suspected) exposure to COVID-19; Z95.820 Peripheral vascular angioplasty status with implants and grafts; Z79.84 Long term (current) use of oral hypoglycemic drugs

== ENCOUNTER → 2021-02-18 | Outpatient (REF) | payer MEDICARE, OTHER ==
[~2021-02-18] MED LIST changes: +CORE6.25 PO; +JARD1TAB3 PO; +MORP1SOL5 PO; -MORP20SO3 PO; +MUCI600T31 PO; +TORS20TA2 PO
[2021-02-18 13:50] LABS: APPEARANCE, URINE CLEAR (CLEAR); BACTERIA, URINE AUTO NEGATIVE (NEGATIVE); BILIRUBIN, URINE AUTO NEGATIVE (NEGATIVE); BLOOD, URINE BLOOD NEGATIVE (NEGATIVE); CALCIUM OXALATE CRYSTALS SMALL; COLOR, URINE YELLOW (YELLOW); GLUCOSE, URINE (UA) AUTO NEGATIVE (NEGATIVE); KETONE, URINE AUTO NEGATIVE (NEGATIVE); LEUKOCYTE ESTERASE, URINE AUTO NEGATIVE (NEGATIVE); NITRITE, URINE AUTO NEGATIVE (NEGATIVE); PROTEIN, URINE AUTO NEGATIVE (NEGATIVE); RBC, URINE AUTO 1 /HPF (0-3); SPECIFIC GRAVITY URINE AUTO 1.015 (1.002-1.035); SQUAMOUS EPITHELIAL CELL UR AU 0 /HPF (0-6); UROBILINOGEN, URINE AUTO 0.2 mg/dL (0.0-2.0); WBC, URINE AUTO 0 /HPF (0-3)
== END ==
LOC: M SMT 12:53
PROVIDERS: ATTEND Urology
DX: R35.0 Frequency of micturition (principal)
CPT/HCPCS: 81001; 87086; G0463

== ENCOUNTER → 2021-03-27 | Outpatient (CLI) | payer MEDICARE, OTHER ==
--- NOTE | 2021-03-27 15:55 | REP ---
INDICATION: ATHEROSCLEROSIS COMPARISON: None. TECHNIQUE: Bilateral lower extremity arterial ultrasound with Doppler FINDINGS: All numeric values represent peak systolic velocities in cm/S EC On the right: The ankle brachial index is 1.4 METALLURGICAL ENGINEERING TECHNICIAN: 90.6 triphasic Profunda: 77.5 triphasic SFA proximal: 84.4 biphasic SFA mid: 90.3 triphasic SFA distal: 59.5 triphasic Popliteal: 126.6 biphasic LÁZARO proximal: 52.6 biphasic Tibioperoneal trunk: 58.9 triphasic DISEASE CASE MANAGER proximal: 49.4 biphasic DISEASE CASE MANAGER distal: 48.3 biphasic LÁZARO distal: 52.4 biphasic On the left: The ankle brachial index is 0.5 METALLURGICAL ENGINEERING TECHNICIAN: 82.3 biphasic Profunda: 74.4 triphasic SFA proximal: 40.1 biphasic SFA mid: 41.6 triphasic SFA distal: 66.3 triphasic Popliteal: Proximal occluded/distal 26.8 monophasic LÁZARO proximal: 19.8 monophasic Tibioperoneal trunk: 24.8 monophasic DISEASE CASE MANAGER proximal: 15.5 monophasic DISEASE CASE MANAGER distal: 12.4 monophasic LÁZARO distal: 5.6 with no diastolic flow monophasic Severe plaque was seen bilaterally popliteal was seen to be occluded on the left with collateral revascularization distally or monophasic waveform was seen from there to the ankle . IMPRESSION: As above <Electronically signed by Cornelius Andrade > 03/27/21 [id number]
== END ==
LOC: M RAD 12:12
PROVIDERS: ATTEND Surgery Vascular Surgery
DX: I70.213 Atherosclerosis of native arteries of extremities with intermittent claudication, bilateral legs (principal); Z95.828 Presence of other vascular implants and grafts

== ENCOUNTER 2021-05-01 09:58 | Inpatient (IN) | payer MEDICARE, OTHER ==
[~2021-05-01] VITALS: Ht 172.7 cm; Wt 62.3 kg
[2021-05-01 03:15] VITALS: BP 132/67
[~2021-05-01 09:58] MED LIST changes: -CEFD1CAP8 PO; -FLUC200T2 PO; +FLUC200T4 PO; +FLUCONAZOLE 100 MG TAB PO SCH; -MONT10TA10 PO; +MONT10TA97 PO
[2021-05-01] MEDS ORDERED: dexameTHASONE 4 MG/ML 1ML VIAL (J1100 PER 1MG) IV ONE (10:20)
[2021-05-01 10:48] LABS: VENOUS BASE EXCESS 0.5 (-2.0-2.0); VENOUS HCO3 25.7 MEQ/L (23.0-27.0); VENOUS O2 SATURATION 83.3 % (60.0-80.0); VENOUS PARTIAL PRESSURE CO2 43.4 mmHg (38.0-50.0); VENOUS PARTIAL PRESSURE O2 47.6 mmHg (30.0-50.0); VENOUS PH 7.391 UNITS (7.330-7.430); VENOUS STANDARD HCO3 24.6 MEQ/L; VENOUS TOTAL CO2 27.1 MEQ/L (24.0-28.0)
[2021-05-01 10:53] LABS: BASO # 0.1 10^3/uL (0.0-0.2); BASO % 0.3 % (0.0-1.0); EOS # 0.1 10^3/uL (0.0-0.5); EOS % 0.4 % (0.0-3.0); HEMATOCRIT 43.9 % (42.0-52.0); HEMOGLOBIN 14.8 g/dl (13.5-17.5); LYMPH # 0.6 10^3/uL (1.5-5.0); LYMPH % 3.8 % (24.0-44.0); MEAN CORPUSCULAR HEMOGLOBIN 31.8 pg (27.0-33.0); MEAN CORPUSCULAR HGB CONC 33.7 g/dl (32.0-36.5); MEAN CORPUSCULAR VOLUME 94.2 fl (80.0-96.0); MONO # 0.8 10^3/uL (0.0-0.8); MONO % 5.3 % (2.0-8.0); NEUTROPHILS # 13.4 10^3/uL (1.5-8.5); NEUTROPHILS % 89.2 % (36.0-66.0); PLATELET COUNT, AUTOMATED 200 10^3/uL (150-450); RED BLOOD COUNT 4.66 10^6/uL (4.30-6.10); WHITE BLOOD COUNT 15.1 10^3/uL (4.0-10.0)
[2021-05-01 11:04] LABS: INR 0.93; PARTIAL THROMBOPLASTIN TIME 26.3 SECONDS (25.9-37.0); PROTHROMBIN TIME 12.8 SECONDS (12.7-14.5)
[2021-05-01 11:18] LABS: CK-MB VALUE MASS 2.2 NG/ML (<3.6); MB/CK RELATIVE INDEX 3.38 (< OR =4)
[2021-05-01 11:30] LABS: RSV AMPLIFICATION NEGATIVE (NEGATIVE)
[2021-05-01 11:36] LABS: ALBUMIN 3.6 GM/DL (3.2-5.2); ALT/SGPT 33 U/L (12-78); BILIRUBIN,DIRECT < 0.1 MG/DL (0.0-0.2); BILIRUBIN,TOTAL 0.4 MG/DL (0.2-1.0); BLOOD UREA NITROGEN 11 MG/DL (7-18); C REACTIVE PROTEIN QUANTITATIV 2.55 MG/DL (0.00-0.30); CALCIUM LEVEL 10.2 MG/DL (8.8-10.2); CARBON DIOXIDE LEVEL 28 MEQ/L (21-32); CHLORIDE LEVEL 101 MEQ/L (98-107); FERRITIN 80 NG/ML (26-388); GLOMERULAR FILTRATION RATE > 60.0 (>49); GLUCOSE, FASTING 79 MG/DL (70-100); LDH LACTATE DEHYDROGENASE 290 U/L (87-241); NT-PRO BNP 453 PG/ML (<125); POTASSIUM SERUM 3.8 MEQ/L (3.5-5.1); SODIUM LEVEL 136 MEQ/L (136-145); TOTAL PROTEIN 7.7 GM/DL (6.4-8.2)
[2021-05-01] MEDS: COMBIVENT RESPIMAT 100-20MCG INHALER 4GM INH SCH ×3 (11:41→12:20)
[2021-05-01] MEDS ORDERED: AZITHROMYCIN INJ 500 MG, VIAL MATE ADAPTER 1 EACH in NS 250 ML IV SCH (12:20)
[2021-05-01] MEDS ORDERED: GLUCOSE 4GM CHEW TABLET PO PRN (12:20)
[2021-05-01] MEDS ORDERED: ACETAMINOPHEN TAB 650MG DOSE (2X325MG) PO PRN (12:20)
[2021-05-01] MEDS ORDERED: cefTRIAXone SOD 1 GM in D5W MINI-BAG PLUS 50 ML IV SCH (12:20)
[2021-05-01] MEDS ORDERED: DEXTROSE 50% 50 ML SYRINGE IV PRN (12:20)
[2021-05-01] MEDS ORDERED: GLUCAGON INJ 1MG VIAL SC PRN (12:20)
[2021-05-01] MEDS ORDERED: ZINC1TAB2 PO (12:37)
[2021-05-01] MEDS ORDERED: CIPR-249 PO (12:37)
[2021-05-01] MEDS ORDERED: LEVO50TA5 PO (12:37)
[2021-05-01] MEDS ORDERED: DILT240C83 PO (12:37)
[2021-05-01] MEDS ORDERED: GLIM4TAB5 PO (12:37)
[2021-05-01] MEDS ORDERED: HOME MED LIST COMPLETE! XX SCH (12:40)
[2021-05-01] MEDS ORDERED: ACETAMINOPHEN TAB 650MG DOSE (2X325MG) PO ONE (14:05)
[2021-05-01 15:01] VITALS: O2SAT 96
[2021-05-01] MEDS: IPRATROPIUM 0.02% SOLN 0.5MG 2.5ML NEB INH SCH ×2 (15:45→20:17)
[2021-05-01 15:52] VITALS: O2SAT 97
[2021-05-01] MEDS ORDERED: REMDESIVIR 200 MG in NS 250 ML IV ONE (16:00)
[2021-05-01] MEDS ORDERED: SODIUM CHLORIDE 0.9% INJ 10 ML SYR IV ONE (18:00)
[2021-05-01] MEDS: methylPREDNISolone 125MG 2ML VIAL IV SCH (18:28)
[2021-05-01] MEDS: HumaLOG INSULIN (NovoLOG) PER UNIT SC SCH ×2 (18:29→21:55)
[2021-05-01 19:35] VITALS: BP 133/86
[2021-05-01] MEDS: FORMOTEROL FUMARATE 20 MCG/2 ML INHALATION SOLUTION (PERFOROMIST) INH SCH (20:00)
[2021-05-01] MEDS: BUDESONIDE 0.5 MG/2 ML INHALATION SUSPENSION INH SCH (20:17)
[2021-05-01] MEDS ORDERED: LATANOPROST 0.005% OPHTH SOLN 2.5 ML OU SCH (21:00)
[2021-05-01] MEDS: TRAVOPROST OU SCH (21:55)
[2021-05-01] MEDS: BRIMONIDINE 0.1% OPHTH SOLN 5 ML OU SCH (21:55)
[2021-05-01] MEDS: CEFDINIR 300 MG CAP (OMNICEF) PO SCH (21:56)
[2021-05-01] MEDS: LEVOTHYROXINE 50MCG TABLET (0.05MG) PO SCH (21:56)
[2021-05-01] MEDS: MONTELUKAST 10 MG TAB PO SCH (21:56)
[2021-05-01] MEDS: guaiFENesin ER 600 MG TAB PO SCH (21:56)
[2021-05-01] MEDS: CitaloPRAM (CeleXA) 20 MG TAB PO SCH (21:56)
[2021-05-01] MEDS: CLOPIDOGREL 75 MG TAB PO SCH (21:56)
[2021-05-01 23:30] VITALS: O2SAT 97
[2021-05-02] VITALS (7 sets, daily range): BP systolic 117–150; BP diastolic 81–88; O2SAT 94–96
[2021-05-02] MEDS: methylPREDNISolone 125MG 2ML VIAL IV SCH ×3 (01:27→17:25)
[2021-05-02 07:34] LABS: HEMATOCRIT 39.5 % (42.0-52.0); HEMOGLOBIN 13.3 g/dl (13.5-17.5); MEAN CORPUSCULAR HEMOGLOBIN 31.7 pg (27.0-33.0); MEAN CORPUSCULAR HGB CONC 33.7 g/dl (32.0-36.5); MEAN CORPUSCULAR VOLUME 94.3 fl (80.0-96.0); PLATELET COUNT, AUTOMATED 192 10^3/uL (150-450); RED BLOOD COUNT 4.19 10^6/uL (4.30-6.10)
[2021-05-02] MEDS: IPRATROPIUM 0.02% SOLN 0.5MG 2.5ML NEB INH SCH ×4 (07:59→20:30)
[2021-05-02] MEDS: FORMOTEROL FUMARATE 20 MCG/2 ML INHALATION SOLUTION (PERFOROMIST) INH SCH ×2 (07:59→20:30)
[2021-05-02] MEDS: BUDESONIDE 0.5 MG/2 ML INHALATION SUSPENSION INH SCH ×2 (07:59→20:31)
[2021-05-02 08:26] LABS: ALBUMIN 2.8 GM/DL (3.2-5.2); ALT/SGPT 27 U/L (12-78); BILIRUBIN,TOTAL 0.1 MG/DL (0.2-1.0); BLOOD UREA NITROGEN 21 MG/DL (7-18); CALCIUM LEVEL 8.3 MG/DL (8.8-10.2); CARBON DIOXIDE LEVEL 27 MEQ/L (21-32); CHLORIDE LEVEL 101 MEQ/L (98-107); GLOMERULAR FILTRATION RATE > 60.0 (>49); GLUCOSE, FASTING 216 MG/DL (70-100); MAGNESIUM LEVEL 1.8 MG/DL (1.8-2.4); POTASSIUM SERUM 4.2 MEQ/L (3.5-5.1); SODIUM LEVEL 134 MEQ/L (136-145); TOTAL PROTEIN 6.9 GM/DL (6.4-8.2)
[2021-05-02] MEDS: VITAMIN D 1,000 INTERNATIONAL UNITS TABLET PO SCH (08:44)
[2021-05-02] MEDS: CEFDINIR 300 MG CAP (OMNICEF) PO SCH ×2 (08:44→20:39)
[2021-05-02] MEDS: FOLIC ACID 1 MG TAB PO SCH (08:44)
[2021-05-02] MEDS: OMEPRAZOLE 20MG CAP PO SCH (08:44)
[2021-05-02] MEDS: guaiFENesin ER 600 MG TAB PO SCH ×2 (08:44→20:40)
[2021-05-02] MEDS: FERROUS SULFATE 325MG TAB PO SCH (08:44)
[2021-05-02] MEDS: LACTOBACILLUS ACIDOPHILUS CAP (BACID) PO SCH (08:44)
[2021-05-02] MEDS: ASCORBIC ACID 500 MG TAB PO SCH (08:44)
[2021-05-02] MEDS: ENOXAPARIN 40MG/0.4ML SYRINGE (J1650 PER 10MG) SC SCH (08:46)
[2021-05-02] MEDS: HumaLOG INSULIN (NovoLOG) PER UNIT SC SCH ×4 (08:47→20:40)
[2021-05-02] MEDS: BRIMONIDINE 0.1% OPHTH SOLN 5 ML OU SCH ×2 (08:49→20:40)
[2021-05-02] MEDS ORDERED: BACTRIM 160MG/800MG DS TAB PO SCH (09:00)
[2021-05-02] MEDS ORDERED: REMDESIVIR 100 MG in NS 250 ML IV SCH (17:00)
[2021-05-02] MEDS ORDERED: SODIUM CHLORIDE 0.9% INJ 10 ML SYR IV SCH (18:00)
[2021-05-02] MEDS: LEVOTHYROXINE 50MCG TABLET (0.05MG) PO SCH (20:39)
[2021-05-02] MEDS: MONTELUKAST 10 MG TAB PO SCH (20:39)
[2021-05-02] MEDS: CitaloPRAM (CeleXA) 20 MG TAB PO SCH (20:39)
[2021-05-02] MEDS: TRAVOPROST OU SCH (20:40)
[2021-05-02] MEDS: CLOPIDOGREL 75 MG TAB PO SCH (20:40)
[2021-05-03] MEDS: methylPREDNISolone 125MG 2ML VIAL IV SCH (01:27)
[2021-05-03 04:00] VITALS: BP 136/89
[2021-05-03] MEDS: FORMOTEROL FUMARATE 20 MCG/2 ML INHALATION SOLUTION (PERFOROMIST) INH SCH (07:51)
[2021-05-03] MEDS: IPRATROPIUM 0.02% SOLN 0.5MG 2.5ML NEB INH SCH ×2 (07:51→11:50)
[2021-05-03] MEDS: BUDESONIDE 0.5 MG/2 ML INHALATION SUSPENSION INH SCH (07:51)
[2021-05-03 08:00] VITALS: O2SAT 98
[2021-05-03] MEDS: ASCORBIC ACID 500 MG TAB PO SCH (08:14)
[2021-05-03] MEDS: ENOXAPARIN 40MG/0.4ML SYRINGE (J1650 PER 10MG) SC SCH (08:14)
[2021-05-03] MEDS: guaiFENesin ER 600 MG TAB PO SCH (08:14)
[2021-05-03] MEDS: FOLIC ACID 1 MG TAB PO SCH (08:14)
[2021-05-03] MEDS: LACTOBACILLUS ACIDOPHILUS CAP (BACID) PO SCH (08:14)
[2021-05-03] MEDS: FERROUS SULFATE 325MG TAB PO SCH (08:14)
[2021-05-03] MEDS: CEFDINIR 300 MG CAP (OMNICEF) PO SCH (08:14)
[2021-05-03] MEDS: OMEPRAZOLE 20MG CAP PO SCH (08:15)
[2021-05-03] MEDS: VITAMIN D 1,000 INTERNATIONAL UNITS TABLET PO SCH (08:15)
[2021-05-03] MEDS: BRIMONIDINE 0.1% OPHTH SOLN 5 ML OU SCH (08:15)
[2021-05-03 08:39] LABS: HEMATOCRIT 38.7 % (42.0-52.0); MEAN CORPUSCULAR HEMOGLOBIN 31.5 pg (27.0-33.0); MEAN CORPUSCULAR HGB CONC 33.6 g/dl (32.0-36.5); MEAN CORPUSCULAR VOLUME 93.7 fl (80.0-96.0); PLATELET COUNT, AUTOMATED 200 10^3/uL (150-450); RED BLOOD COUNT 4.13 10^6/uL (4.30-6.10); WHITE BLOOD COUNT 19.1 10^3/uL (4.0-10.0)
[2021-05-03] MEDS ORDERED: predniSONE 20 MG TAB PO SCH (09:00)
[2021-05-03 09:01] LABS: BLOOD UREA NITROGEN 16 MG/DL (7-18); CARBON DIOXIDE LEVEL 29 MEQ/L (21-32); CHLORIDE LEVEL 101 MEQ/L (98-107); CREATININE FOR GFR 0.71 MG/DL (0.70-1.30); GLOMERULAR FILTRATION RATE > 60.0 (>49); GLUCOSE, FASTING 174 MG/DL (70-100); POTASSIUM SERUM 3.9 MEQ/L (3.5-5.1); SODIUM LEVEL 136 MEQ/L (136-145)
[2021-05-03 09:02] LABS: CALCIUM LEVEL 8.8 MG/DL (8.8-10.2); MAGNESIUM LEVEL 2.1 MG/DL (1.8-2.4)
[2021-05-03] MEDS ORDERED: PRED10TA2 PO (09:35)
[2021-05-03] MEDS: HumaLOG INSULIN (NovoLOG) PER UNIT SC SCH (09:40)
== END 2021-05-03 11:47 | disposition home or self-care (01) | DRG 178 ==
LOC: M ED 09:58 → M ED INP 12:19 → ENRESERV 13:12 → M 4MAIN 15:15
PROVIDERS: ADMIT Family Medicine; ATTEND Family Medicine
PROC: XW033E5 Introduction of Remdesivir Anti-infective into Peripheral Vein, Percutaneous Approach, New Technology Group 5 (ICD-10-PCS; principal; 2021-05-01)
PROC: 3E0333Z Introduction of Anti-inflammatory into Peripheral Vein, Percutaneous Approach (ICD-10-PCS; 2021-05-01)
DX: U07.1 COVID-19 (principal); J44.1 Chronic obstructive pulmonary disease with (acute) exacerbation; J96.11 Chronic respiratory failure with hypoxia; I10 Essential (primary) hypertension; E11.51 Type 2 diabetes mellitus with diabetic peripheral angiopathy without gangrene; Z99.81 Dependence on supplemental oxygen; I25.10 Atherosclerotic heart disease of native coronary artery without angina pectoris; Z95.5 Presence of coronary angioplasty implant and graft; Z95.820 Peripheral vascular angioplasty status with implants and grafts; F32.A Depression, unspecified; H40.9 Unspecified glaucoma; G47.33 Obstructive sleep apnea (adult) (pediatric); H91.90 Unspecified hearing loss, unspecified ear; Z95.2 Presence of prosthetic heart valve; Z87.891 Personal history of nicotine dependence; Z66 Do not resuscitate; Z79.02 Long term (current) use of antithrombotics/antiplatelets; Z79.899 Other long term (current) drug therapy; Z79.84 Long term (current) use of oral hypoglycemic drugs; Z88.6 Allergy status to analgesic agent; Z88.8 Allergy status to other drugs, medicaments and biological substances; Z88.1 Allergy status to other antibiotic agents

== ENCOUNTER 2021-05-06 08:22 | Inpatient (IN) | payer MEDICARE, OTHER ==
[~2021-05-06] VITALS: Ht 167.6 cm; Wt 66.7 kg
[2021-05-06] MEDS: TIOTROPIUM INHALER/CAPSULE (SPIRIVA) INH SCH (08:00)
[~2021-05-06 08:22] MED LIST changes: +CEFD1CAP8 PO; +CIPR-249 PO; +DILT240C83 PO; +FLUC200T2 PO; -FLUC200T4 PO; -FLUCONAZOLE 100 MG TAB PO SCH; +LEVO50TA5 PO; +MONT10TA10 PO; -MONT10TA97 PO; +ZINC1TAB2 PO
--- OUTSIDE RECORDS SUMMARY | 2021-05-06 08:31 | CCD | Continuity of Care Document ---
Author Author Casey RUANO [facility] Organization Unknown Address [address] [facility] [address] [place] [address] Phone [phone] Care Team Providers Care Crowning Hammer Operator Name Role Phone [facility] AUTM [phone] [facility] - [facility] AUTM [phone] Problems Active Problems Provider Date Coronary arteriosclerosis AmFady antoine Onset: 009 Note: Dr. Sequeira Type 2 diabetes mellitus Fady Salter Onset: 08/09/19 09 Heart murmur AmFady antoine Onset: 08/08/2008 Chronic obstructive lung disease AmFady antoine Onset: 08/08/2008 Sleep apnea AmFady antoine R Onset: 08/08/2008 Diverticulitis of colon Fady Salter Onset: 9 Gastroesophageal reflux disease Nahun Tolentino M.D. Onset: 01/08/2009 Pulmonary emphysema Blaze Ruano RPA Onset: 06/27/2009 Low back pain Blaze Ruano RPA Onset: 08/07/2009 Aortic valve disorder Blaze Ruano RPA Onset: 01/08/20 10 Common variable agammaglobulinemia Blaze Ruano RPA On set: 10/28/2010 Note: Dr. 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 Blaze Ruano RPA On set: 07/05/2017 Nocturia Blaze Ruano RPA Onset: 11/25/2018 Chronic hypoxemic respiratory failure Blaze Ruano RPA Onset: 11/25/2018 Long-term current use of systemic steroid Blaze Ruano RPA Onset: 11/25/2018 Hyperlipidemia Blaze Ruano RPA Onset: 06/19/2020 Aneurysm of ascending aorta Blaze Ruano RPA Onset: Note: 4.7cm 08/27/20 Hypothyroidism Blaze Ruano RPA Onset: 01/09/2021 Social History Type Date Description Comments Sex Unknown ETOH Use Denies alcohol use Tobacco Use Start: Unknown End: Unknown Patient is a former smoker Cigarettes, Cigars and Pipe - Quit 12/24/09 Recreational Drug Use Denies Drug Use Allergies and adverse reactions Active Allergies Criticality Reaction | Severity Comments Date Penicillin Unable to assess criticality 08/08/2008 Quinine Unable to assess criticality 08/08/2008 Levaquin Unable to assess criticality muscle pain 11/20/2009 Isa Unable to assess criticality heart races 11/02/2012 Pravastatin Unable to assess criticality Headaches 02/16/2013 Crestor Unable to assess criticality Myalgias/Abn ormal LFT's 02/16/2013 Medications Active Medications SIG Qnty Indications Ordering Provide r Date Flagyl 500mg Tablets 1 by mouth three times a day x 7 days 21tabs Stephen Pugh D.O., FAAF P 04/09/2021 Glimepiride 4mg Tablets 1 by mouth every day 30minutes before his largest meal. change 02/06/21) 90tabs Stephen Pugh D.O., FAAFP 02/06/2021 Synthroid 50mcg Tablets 1 by mouth every day 90tabs Stephen Pugh D.O., FAAFP 11/2020 Solu-Medrol 125mg Solution Rec intramuscular stat 1units Stephen Pugh D.O., FAAFP 07/18/2020 Metformin HCL 500mg Tablets take one tablet by mouth three times a day (change 07/29/20) 270tabs Stephen Pugh D.O., FAAFP 05/27/2020 Lidoderm 5% Patches apply 1 patch to the affected area(s) once daily (12 hours on and 12 hours off) 30units Stephen Pugh D.O., FAAFP 04/17/2020 Zinc 50mg Tablets 1 PO Daily Stephen Pugh D.O., FAAFP 03/19/2020 Diflucan 200mg Tablets take 1 tablet by mouth daily for 5 days and then once a week 10tabs Stephen Pugh D.O., FAAFP 12/15/2019 Vitamin B12 1000mcg Tablets ER 2.5 by mouth every day otc Stephen Pugh D.O., FAAFP 03/2020 Famotidine 40mg Tablets take 1 tablet by mouth every night at bedtime 90tabs Av Greenberg, FAAFP 03/06/2019 Singulair 10mg Tablets take one tablet by mouth at bedtime 30tabs Stephen Pugh D.O., FAAFP Nystatin [id number] Suspension 1 teaspoon by mouth four times a day swish and swallow x 7 days 140ml Yogesh Yanez M.D. 11/19/2017 Albuterol Sulfate (2 .5mg/3ML) 0.083% Nebulizer 1 vial via nebulizer every 4-6 hours as needed for cough. (replaces xopenex) 360ml Stephen Pugh D.O., FAAFP Cardizem CD 240mg Caps ER 24HR take one capsule by mouth every day 90caps Stephen Pugh D.O. , FAAFP 09/28/2017 Boniva 150mg Tablets take 1 tablet by mouth every month. take 30 minutes before a meal and stay upright for 30 minutes after taking 3tabs Stephen Pugh D.O., FAAFP 07/2017 Nebulizer Misc Nebulizer Compressor , use every 4 hours prn for sob. 1units Stephen Pugh D.O. , [facility] 08/09/2015 Folic Acid 1mg Tablets 1 by mouth every day 90tabs Stephen Pugh D.O., [facility] Onetouch Verio Strips use every day before meals and as needed to test blood sugars E11.9 300units E11.9 Stephen Pugh D.O., [facility] 05/10/2014 Onetouch Delica Lancets Fine 30G 3 0G Misc use every day before meals and as needed as directed 300units E11.9 Stephen Pugh D.O., [facility] 05/10/2014 Celexa 20mg Tablets take one tablet by mouth once daily 90tabs Stephen Pugh D.O., [facility] Nebulizer Kit/Tubing/Mouthpiece/Cup Kit for use with nebulizer 1units Stephen Pugh D.O., [facility] 07/13/2013 Iron 325(65Fe) mg Tablets 1 p o bid Laine Shearer D.O. 07/08/2010 Tamsulosin HCL 0.4mg Capsules 1 by mouth every day Unknown Nitrostat 0.4mg Tablets Sub 1 sl q 5 min for chest pain. may take up to 3 doses at which point also seek medical attention. 30tabs Stephen Pugh D.O., [facility] Torsemide 10mg Tablets Unknown Tudorza Pressair 400mcg/Act Aeroso l 1 puff twice a day Unknown Prednisone 10mg Tablets 2 po daily Unknown Livalo 2mg Tablets take one tablet by mouth every day 90tabs Stephen Pugh D.O., [facility] Cefdinir 300mg Capsules 1 tab by mouth twice a day for 2 weeks, alternate with Cipro Un known Cipro 500mg Tablets 1 by mouth twice a day x 2 weeks.. alt. with cefdinir Unknown [address] 1 by mouth every day Unknown Calcium Citrate + D [id number] Tablets 2 by mouth daily Unknown Hizentra Solution inj ect every other wek Unknown Alphagan P 0.1% Solution 1 drop three times daily both eyes Unknown Travatan Z 0.004% Solution instill one drop in each eye once daily Unknown Bactrim DS 800-160mg Tablets 1 by mouth on Wed, Wed,and Wed Unknown Ipratropium Spencer 0.02% Solution inhale one vial via nebulizer 3 times a day Unknown Vitamin B Complex Tablets 1 by mouth every day OTC Unknown Probiotic Capsules 1 by mouth every day OTC Unknown Vitamin C 1000mg Tablets 1 by mouth every day Unknown Perforomist 20mcg/2ML Nebulizer as directed Unknown Budesonide 0.5mg/2ML Suspension use one vial in nebulizer twice daily Unknown Mucinex 1200mg. 1 tab po bid Unknown O2 @ 2L Via NC @ hs Unknown Plavix 75mg Tablets 1 PO qd Unknown History Medications Glimepiride 2mg Tablets 1 by mouth every day 30minutes before his largest meal. 90tabs Stephen Pugh D.O., [facility] 01/02/2021 - 02/06/2021 Januvia 100mg Tablets 1 by mouth every day 90tabs Stephen Pugh D.O., FAAFP - 01/02/2021 Medications Administered in Office Medication SIG Qnty Indications Ordering Provider Date Injection (SC)/(Im) Injection Yogesh Yanez M.D. 07/19/2020 Injection (SC)/(Im) Injection Nurses Schedule 07/19/2020 Injection (SC)/(Im) Injection Blaze Ruano, RPA 07/18/2020 Injection (SC)/(Im) Injection Blaze Ruano, RPA 07/17/2020 Injection (SC)/(Im) Injection Blaze Ruano, RPA 06/21/2020 Injection (SC)/(Im) Injection Blaze Ruano, [facility] 06/20/2020 Injection (SC)/(Im) Injection Blaze Ruano, [facility] 06/19/2020 Injection (SC)/(Im) Injection Blaze Ruano, [facility] 08/19/2018 Injection (SC)/(Im) Injection Blaze Ruano, [facility] 08/18/2018 Injection (SC)/(Im) Injection Blaze Ruano, [facility] 05/06/2018 Injection (SC)/(Im) Injection Blaze Ruano, [facility] 04/25/2018 Injection (SC)/(Im) Injection Blaze Ruano, [facility] 12/02/2017 Injection (SC)/(Im) Injection Blaze Ruano, [facility] 12/01/2017 Injection (SC)/(Im) Injection Blaze Ruano, [facility] 10/29/2017 Injection (SC)/(Im) Injection Blaze Ruano, [facility] 10/28/2017 Injection (SC)/(Im) Injection Blaze Ruano, [facility] 10/27/2017 Injection (SC)/(Im) Injection Blaze Ruano, [facility] 10/08/2017 Injection (SC)/(Im) Injection Blaze Ruano, [facility] 10/07/2017 Injection (SC)/(Im) Injection Blaze Ruano, [facility] 10/06/2017 Injection (SC)/(Im) Injection Blaze Ruano, [facility] 10/05/2017 Injection (SC)/(Im) Injection Blaze Ruano, [facility] 10/04/2017 Injection (SC)/(Im) Injection Blaze Ruano, [facility] 10/01/2017 Injection (SC)/(Im) Injection Kimberly Tijerina, COMPOSING MACHINE OPERATOR-C 08/06/2017 Injection (SC)/(Im) Injection Kimberly Tijerina, COMPOSING MACHINE OPERATOR-C 08/05/2017 Injection (SC)/(Im) Injection Kimberly Tijerina, COMPOSING MACHINE OPERATOR-C 08/04/2017 Injection (SC)/(Im) Injection Kimberly Tijerina, COMPOSING MACHINE OPERATOR-C 08/03/2017 Injection (SC)/(Im) Injection Kimberly Breezy, COMPOSING MACHINE OPERATOR-C 08/02/2017 Injection (SC)/(Im) Injection Blaze Ruano, [facility] 05/14/2017 Injection (SC)/(Im) Injection Blaze Ruano, [facility] 05/13/2017 Injection (SC)/(Im) Injection Blaze Ruano, [facility] 05/12/2017 Injection (SC)/(Im) Injection Blaze Ruano, [facility] 05/11/2017 Injection (SC)/(Im) Injection Blaze Ruano, [facility] 05/07/2017 Injection (SC)/(Im) Injection Blaze Ruano, [facility] 05/07/2017 Injection (SC)/(Im) Injection Blaze Ruano, [facility] 05/06/2017 Injection (SC)/(Im) Injection Blaze Ruano, [facility] 05/06/2017 Injection (SC)/(Im) Injection Blaze Ruano, [facility] 05/05/2017 Injection (SC)/(Im) Injection Blaze Ruano, [facility] 05/05/2017 Injection (SC)/(Im) Injection Blaze Ruano, [facility] 02/04/2017 Injection (SC)/(Im) Injection Blaze Ruano, [facility] 02/03/2017 Injection (SC)/(Im) Injection Blaze Ruano, [facility] 02/02/2017 Injection (SC)/(Im) Injection Blaze Ruano, [facility] 02/01/2017 Injection (SC)/(Im) Injection Balze Ruano, [facility] 09/23/2016 Injection (SC)/(Im) Injection Blaze Ruano, [facility] 09/22/2016 Injection (SC)/(Im) Injection Blaze Ruano, [facility] 09/21/2016 Injection (SC)/(Im) Injection Blaze Ruano, [facility] 09/17/2016 Injection (SC)/(Im) Injection Blaze Ruano, [facility] 06/19/2016 Injection (SC)/(Im) Injection Blaze Ruano, [facility] 06/19/2016 Injection (SC)/(Im) Injection Blaze Ruano, [facility] 06/18/2016 Injection (SC)/(Im) Injection Blaze Ruano, [facility] 06/18/2016 Injection (SC)/(Im) Injection Blaze Ruano, RPA 04/10/2016 Injection (SC)/(Im) Injection Blaze Ruano, RPA 04/10/2016 Injection (SC)/(Im) Injection Blaze Ruano, RPA 02/07/2016 Injection (SC)/(Im) Injection Blaze Ruano, RPA 02/06/2016 Injection (SC)/(Im) Injection Blaze Ruano, RPA 11/08/2015 Injection (SC)/(Im) Injection Yogesh Yanez M.D. 08/16/2015 Injection (SC)/(Im) Injection Blaze Ruano, RPA 08/15/2015 Injection (SC)/(Im) Injection Yogesh Yanez M.D. 08/14/2015 Injection (SC)/(Im) Injection [facility] 08/14/2015 Injection (SC)/(Im) Injection Mickie Shearer, [facility] 08/13/2015 Injection (SC)/(Im) Injection Mickie Shearer, [facility] 08/13/2015 Injection (SC)/(Im) Injection Blaze Ruano, RPA 09/07/2014 Injection (SC)/(Im) Injection Stephen Pugh D.O., [facility] 09/06/2014 Injection (SC)/(Im) Injection Blaze Ruano, [facility] 09/05/2014 Injection (SC)/(Im) Injection Blaze Ruano, RPA 04/30/2014 Injection (SC)/(Im) Injection Kajal Harris, COMPOSING MACHINE OPERATOR-C 01/05/2014 Injection (SC)/(Im) Injection Kajal Harris, COMPOSING MACHINE OPERATOR-C 01/04/2014 Injection (SC)/(Im) Injection Kajal Harris, COMPOSING MACHINE OPERATOR-C 01/03/2014 Injection (SC)/(Im) Injection Blaze Ruano, RPA 12/15/2013 Injection (SC)/(Im) Injection Blaze Ruano, RPA 12/14/2013 Injection (SC)/(Im) Injection Blaze Ruano, RPA 05/01/2013 Injection (SC)/(Im) Injection Blaze Ruano, RPA 04/28/2013 Injection (SC)/(Im) Injection Blaze Ruano, [facility] 04/27/2013 Injection (SC)/(Im) Injection Blaze Ruano, [facility] 01/18/2013 Injection (SC)/(Im) Injection Blaze Ruano, [facility] 12/19/2012 Injection (SC)/(Im) Injection Blaze Ruano, [facility] 10/10/2012 Injection (SC)/(Im) Injection Blaze Ruano, [facility] 10/07/2012 Injection (SC)/(Im) Injection Blaze Ruano, [facility] 10/06/2012 Injection (SC)/(Im) Injection Blaze Ruano, [facility] 10/05/2012 Injection (SC)/(Im) Injection Blaze Ruano, [facility] 10/04/2012 Injection (SC)/(Im) Injection Blaze Ruano, [facility] 07/25/2012 Injection (SC)/(Im) Injection Blaze Ruano, [facility] 05/25/2012 Injection (SC)/(Im) Injection Blaze Ruano, [facility] 04/14/2012 Injection (SC)/(Im) Injection Blaze Ruano, [facility] 12/29/2011 Injection (SC)/(Im) Injection Blaze Ruano, [facility] 12/24/2011 Injection (SC)/(Im) Injection Blaze Ruano, [facility] 07/07/2011 Injection (SC)/(Im) Injection Blaze Ruano, [facility] 07/06/2011 Injection (SC)/(Im) Injection Blaze Ruano, [facility] 07/02/2011 Injection (SC)/(Im) Injection Blaze Ruano, [facility] 06/25/2011 Injection (SC)/(Im) Injection Blaze Ruano, [facility] 06/05/2011 Injection (SC)/(Im) Injection Blaze Ruano, [facility] 04/11/2010 Injection (SC)/(Im) Injection Blaze Ruano, [facility] 04/10/2010 Injection (SC)/(Im) Injection Blaze Ruano, [facility] 03/28/2010 Injection (SC)/(Im) Injection Blaze Ruano, [facility] 03/27/2010 Injection (SC)/(Im) Injection Blaze Ruano, [facility] 10/11/2009 Injection (SC)/(Im) Injection Blaze Ruano, [facility] 06/21/2009 Injection (SC)/(Im) Injection Fady Salter 11/02/2008 Immunizations CPT Code Status Date Vaccine Reaction Lot # [id number] Given 12/30/2017 Zoster (Shingles) Vaccine RE CEIVED AT [facility] [address] [id number] Refused 04/09/2021 Influenza Virus Vaccine, Quadrivalent, Slit Virus, Im Use 3Y & Up RECEIVED AT [facility] 03/16/21 [id number] Refused 03/19/2020 Influenza Virus Vaccine, Quadrivalent, Slit Virus, Im Use 3Y & Up Senior dose given 03/11/2020 at [facility] Vital Signs Date Vital Result Comment 04/09/2021 3:33pm BP Systolic 124 mmHg BP Diastolic 84 mmHg Body Temperature 97.6 F Heart Rate 105 /min Respiratory Rate 20 /min Height 68 inches 5'8" Weight 147.00 lb Hallie Body Weight 154 lb BMI (Body Mass Index) 22.3 kg/m2 O2 % BldC Oximetry 97 % (On O2 @ 2 LPM NC) 02/24/2021 4:04pm BP Systolic 130 mmHg BP Diastolic 80 mmHg Body Temperature 97.6 F Heart Rate 85 /min Respiratory Rate 16 /min Height 68 inches 5'8" Weight 151.00 lb Hallie Body Weight 154 lb BMI (Body Mass Index) 23.0 kg/m2 O2 % BldC Oximetry 93 % (Room Air) Results Test Acquired Date Facility Test Result H/L Range Note Laboratory test finding 05/01/2021 [facility] (Interface) [phone] Lactic Acid Sepsis Protocol 1.5 mmol/L Normal 0.4- 2.0 1 Influenza A/B RSV Covid Amp 05/01/2021 [facility] dical (Interface) [phone] Influenza A Amplification NEGATIVE Normal Negati ve 2 Influenza B Amplification NEGATIVE Normal Negative 3 RSV Amplification NEGATIVE Normal Negative 4 Sars Covid-19 Amplification POSITIVE Abnormal Negative 5 Laboratory test finding 05/01/2021 [facility] (Interface) [phone] Procalcitonin <0.05 Normal 6 Venous Blood Gas 05/01/2021 [facility] Medical (I nterface) [phone] Venous PH 7.391 units Normal 7.330-7.430 Venous Partial Pressure Co2 43.4 mmHg Normal 38.0-50.0 Venous Partial Pressure O2 47.6 mmHg Normal 30.0-50.0 Venous Total Co2 27.1 mEq/L Normal 24.0-28.0 Venous Hco3 25.7 mEq/L Normal 23.0-27.0 Venous Base Excess 0.5 Normal -2.0-2.0 Venous Standard Hco3 24.6 mEq/L Normal Venous O2 Saturation 83.3 % High 60.0-80.0 PT & Aptt 05/01/2021 [facility] ([facility]) [phone] Prothrombin Time 12.8 seconds Normal 12.7-14.5 Inr 0.93 Normal 7 Partial Thromboplastin Time 26.3 seconds Normal 25.9-37.0 Laboratory test finding 05/01/2021 [facility] (Interface) [phone] Fibrinogen 566 mg/dL High 268-480 Cardiac Marker Panel 05/01/2021 [facility] ( Interface) [phone] CPK Creatine Phosphokinase 65 U/L Normal 39-30 8 CK-MB Value Mass 2.2 NG/ML Normal <3.6 MB/CK Relative Index 3.38 Normal < Or =4 8 Troponin I High Sensitivity 53.0 ng/L Normal 3.0-78 Liver Profile 05/01/2021 [facility] ([facility]) [phone] Ast/Sgot 23 U/L Normal 7-37 Alt/SGPT 33 U/L Normal 12-78 Alkaline Phosphatase 79 U/L Normal 45-117 Bilirubin,Total 0.4 mg/dL Normal 0.2-1.0 Bilirubin,Direct < 0.1 mg/dL Normal 0.0-0.2 Total Protein 7.7 GM/DL Normal 6.4-8.2 Albumin 3.6 GM/DL Normal 3.2-5.2 Albumin/Globulin Ratio 0.9 Normal Basic Metabolic Profile 05/01/2021 [facility] (Interface) [phone] Glucose, Fasting 79 mg/dL Normal 70-100 Blood Urea Nitrogen 11 mg/dL Normal 7-18 Creatinine For GFR 1.00 mg/dL Normal 0.70-1.30 Glomerular Filtration Rate > 60.0 Normal >49 9 Sodium Level 136 mEq/L Normal 136-145 Potassium Serum 3.8 mEq/L Normal 3.5-5.1 Chloride Level 101 mEq/L Normal 98-107 Carbon Dioxide Level 28 mEq/L Normal 21-32 Anion Gap 7 mEq/L Low 8-16 Calcium Level 10.2 mg/dL Normal 8.8-10.2 Laboratory test finding 05/01/2021 [facility] (Interface) [phone] LDH Lactate Dehydrogenase 290 U/L High 87-241 Magnesium Level 2.0 mg/dL Normal 1.8-2.4 NT-Pro BNP 453 pg/mL High <125 Thyroid Stimulating Hormone 1.050 uIU/ML Normal 0.358-3.740 Ferritin 80 NG/ML Normal 26-388 C Reactive Protein Quantitativ 2.55 mg/dL High 0.00-0.30 CBC With Differential 05/01/2021 [facility] (Interface) [phone] White Blood Count 15.1 10 High 4.0-10.0 Red Blood Count 4.66 10 Normal 4.30-6.10 Hemoglobin 14.8 g/dL Normal 13.5-17.5 Hematocrit 43.9 % Normal 42.0-52.0 Mean Corpuscular Volume 94.2 fl Normal 80.0-96.0 Mean Corpuscular Hemoglobin 31.8 pg Normal 27.0-33.0 Mean Corpuscular HGB Conc 33.7 g/dL Normal 32.0-36.5 Red Cell Distribution Width 13.6 % Normal 11.5-14.5 Platelet Count, Automated 200 10 Normal 150-450 Neutrophils % 89.2 % High 36.0-66.0 Lymph % 3.8 % Low 24.0-44.0 Barron % 5.3 % Normal 2.0-8.0 Eos % 0.4 % Normal 0.0-3.0 Baso % 0.3 % Normal 0.0-1.0 Immature Granulocyte % 1.0 % Normal 0-3.0 Nucleated Red Blood Cell % 0.0 % Normal 0-0 Neutrophils # 13.4 10 High 1.5-8.5 Lymph # 0.6 10 Low 1.5-5.0 Barron # 0.8 10 Normal 0.0-0.8 Eos # 0.1 10 Normal 0.0-0.5 Baso # 0.1 10 Normal 0.0-0.2 Laboratory test finding 02/24/2021 [facility] TSH 2.449 ulU/mL 0.60 - 4.8 CBC W/Automated Diff 02/21/2021 [facility] [place] [address] [phone] CBC W/Automated Diff (SEE NOTE) 10 WBC 17.4 10^3/uL High 4.2 - 11.0 RBC 4.26 10^6/uL Low 4.50 - 6.30 Hemoglobin 13.7 g/dL Low 14.0 - 16.0 Hematocrit 41.1 % 41.0 - 51.0 MCV 96.5 fL High 80.0 - 94.0 MCH 32.2 pg 27.0 - 34.0 MCHC 33.3 g/dL 31.0 - 36.0 RDW 13.4 % 11.5 - 14.8 Platelets 247 10^3/uL 150 - 450 MPV 8.6 fL 7.4 - 10.4 Neut 89.8 % High 37.0 - 80.0 Lymph 5.5 % Low 25.0 - 40.0 Barron 2.9 % Low 3.0 - 8.0 Eos 0.4 % 0.0 - 7.0 Baso 0.4 % 0.0 - 2.0 %Ig 1.0 % High 0.0 - 0.0 %NRBC 0.0 % 0.0 - 0.0 #Neut 15.59 10^3/uL High 2.00 - 6.90 #Lymph 0.96 10^3/uL 0.60 - 3.40 #Barron 0.51 10^3/uL 0.00 - 0.90 #Eos 0.07 10^3/uL 0.00 - 0.70 #Baso 0.07 10^3/uL 0.00 - 0.20 #Ig 0.18 10^3/uL High 0.00 - 0.10 #NRBC 0.00 10^3/uL 0.00 - 0.00 Manual Diff NOT INDICATED RBC Morph NOT INDICATED Laboratory test finding 02/21/2021 [facility] [place], [place] [id number] [phone] Immunoglob G (Igg) S 955 mg/dL [phone] Comprehensive Metabolic Panel 02/21/2021 [place] [address] [phone] Comprehensive Metabo (SEE NOTE) 11 Sodium 136 mEq/L 134 - 153 Potassium 4.3 mEq/L 3.6 - 5.0 Chloride 99 mEq/L 98 - 107 Co2 23 mEq/L 22 - 30 Glucose 126 mg/dL High 70 - 99 BUN 22 mg/dL High 7 - 21 Creatinine 0.8 mg/dL 0.7 - 1.5 BUN/Creat 28 High 8 - 27 Total Protein 7.0 g/dL 6.3 - 8.2 Albumin 4.7 g/dL 3.9 - 5.0 Globulin 2.3 GM/DL Low 2.4 - 3.2 A/G Ratio 2.0 0.8 - 2.0 Calcium 9.9 mg/dL 8.4 - 10.2 Total Bili <0.7 mg/dL 0.2 - 1.3 Alkaline Phos 71 U/L 38 - 126 Sgot/Ast 26 U/L 5 - 40 SGPT/Alt 22 U/L 7 - 56 Anion Gap 14.0 mmol/L 8.0 - 16.0 Age 70 yrs Non-Aa GFR >60 mL/min Afr Amer GFR >60 mL/min 12 Laboratory test finding 01/07/2021 [facility] TSH 13.532 ulU/mL High 0.60 - 4.8 CMP 01/07/2021 [facility] Glu 69 mg/dL Low 70 - 110 13 BUN 14 mg/dL 8 - 23 Creat 0.6 mg/dL Low 0.7 - 1.2 BUN/Creatinine Ratio 23.4 Calc Na 135 mmol/L Low 136 - 145 K 4.4 mmol/L 3.5 - 5.1 CL 99.3 mmol/L 98.0 - 107.0 Co2 24.8 mmol/L 22.0 - 29.0 CA 10.2 mg/dL 8.6 - 10.2 TP 7.1 g/dL 6.6 - 8.7 Alb 4.4 g/dL 3.5 - 5.2 A/G Ratio 1.6 Calc Globulin 2.7 Calc Alp 76.4 U/L 40 - 129 Alt (SGPT) 24 U/L 0 - 41 Ast (Sgot) 18 U/L 0 - 40 Tbili 0.20 mg/dL 0.0 - 1.2 Osmolality-Calculated 268.2 Calc Anion Gap 15 mmol/L eGFR 120 # Calc 14 eGFR Non-Afr. Vincentian 103 # Calc 15 Lipid Panel 01/07/2021 [facility] Chol 166 mg/dL 0 - 200 Trig 175 mg/dL 35 - 200 HDL 68 mg/dL High 35 - 55 LDL_C 63 Calc Low 75 - 129 Cho/HDL Ratio 2.5 Calc Laboratory test finding 01/07/2021 [facility] Hemoglobin A1c 6.3 % High 4.50-6.20 U/A DIP A 12/12/2020 [facility] Color Urine YELLOW Yellow Appearance CLEAR Clear Specific [place] 1.025 1.00-1.03 PH Urine 7.5 5.0-8.0 Glucose Urine 1+ High Negative Bilirubin Urine NEG Negative Ketones TRACE Negative Blood Urine NEG Negative Protein Urine NEG Negative Urobilinogen .2 EU/dl 0.2-1.0 Nitrite NEG Negative Leukocytes NEG Negative U/A DIP FPA 12/04/2020 [facility] Color Urine yellow Yellow Appearance clear Clear Specific [place] 1.010 1.00-1.03 PH Urine 5.0 5.0-8.0 Glucose Urine 2+ High Negative Bilirubin Urine neg Negative Ketones neg Negative Blood Urine neg Negative Protein Urine neg Negative Urobilinogen .2 EU/dl 0.2-1.0 Nitrite neg Negative Leukocytes neg Negative CBC 12/04/2020 [facility] WBC 14.0 10E3/uL High 4.1 - 10.9 16 RBC 4.54 10E6/uL 4.20 - 6.30 HGB 14.8 g/dL 12.0 - 18.0 HCT 43.4 % 37.0 - 51.0 MCV 95.6 fL 80.0 - 97.0 MCH 32.6 pg High 26.0 - 32.0 MCHC 34.1 g/dL 31.0 - 36.0 PLT 227 10E3/uL 140 - 440 RDW-CV 13.7 % 11.5 - 14.5 Lym% 11.1 % 10.0 - 58.5 Neut% 83.0 % 37.0 - 92.0 MXD% 5.9 % 0.1 - 24.0 Lym# 1.6 10E3/uL 0.6 - 4.1 Neut# 11.6 % High 2.0 - 7.8 MXD# 0.8 10E3/uL 0.0 - 1.8 MPV 9.7 fL 9.0 - 13.0 CMP 12/04/2020 [facility]/Inhouse Glu 119 mg/dL High 70 - 110 BUN 24 mg/dL High 8 - 23 Creat 0.8 mg/dL 0.7 - 1.2 BUN/Creatinine Ratio 29.0 CALC Na 136 mmol/L 136 - 145 K 4.2 mmol/L 3.5 - 5.1 CL 100.5 mmol/L 98.0 - 107.0 Co2 21.2 mmol/L Low 22.0 - 29.0 CA 9.7 mg/dL 8.6 - 10.2 TP 6.7 g/dL 6.6 - 8.7 Alb 4.3 g/dL 3.5 - 5.2 A/G Ratio 1.8 CALC Globulin 2.4 CALC Alp 93.2 U/L 40 - 129 Alt (SGPT) 21 U/L 0 - 41 Ast (Sgot) 16 U/L 0 - 40 Tbili 0.27 mg/dL 0.0 - 1.2 Osmolality-Calculated 277.5 CALC Anion Gap 19 mmol/L eGFR 106 # Calc 17 eGFR Non-Afr. Vincentian 92 # Calc 18 1 Y/N query for Sepsis Lactate Rule: Y 2 Negative results do not prec lude influenza or RSV virus infection and should not be used as the sole basis for treatment or other patient management decisions. 3 Negative results do not prec lude influenza or RSV virus infection and should not be used as the sole basis for treatment or other patient management decisions. 4 Negative results do not prec lude influenza or RSV virus infection and should not be used as the sole basis for treatment or other patient management decisions. 5 ASSAY INFORMATION: Real Time RT-PCR test. DISCLAIMER: Testing was performed using the [employer] SARS-CoV-2 test. This test was developed and its performance characteristics determined by [employer]. This test has not been FDA cleared or approved. This test has been authorized by FDA under an Emergency Use Authorization (EUA). This test is only authorized for the duration of time the declaration that circumstances exist justifying the authorization of the emergency use of in vitro diagnostic tests for detection of SARS-CoV-2 virus and/or diagnosis of COVID-19 infection under section 564(b)(1) of the Act, 21 U.S.C. 360bbb-3(b)(1), unless the authorization is terminated or revoked sooner. 6 SEPSIS INTERPRETATION OF RES ULTS <0.5 ng/ml Low risk for progression to severe sepsis and or septic shock. 0.50-2.00 ng/ml Sepsis should be consid ered. >2.00 ng/ml High risk for progression to severe sepsis and or septic shock. LOWER RESPIRATORY TRACT INFECTION REFERENCE INTERVAL <0.1 ng/ml Antibiotics strongly discouraged. 0.1-0.25 ng/ml Antibiotics are disc ouraged. 0.26-0.5 ng/ml Antibiotics are enco uraged. >0.5 ng/ml Antibiotics are strongly encouraged. 7 THERAPUTIC HUMAN INR VALUES INDICATIONS NORMAL RANGES PROPHYLAXIS/TREATMENT OF: VENOUS THROMBOSIS 2.0-3.0 PULMONARY EMBOLISM 2.0-3.0 PREVENTION OF SYSTEMIC EMBOLISM FROM: TISSUE HEART VALVES 2.0-3.0 ACUTE MYOCARDIAL INFARCTION 2.0-3.0 VALVULAR HEART DISEASE 2.0-3.0 ATRIAL FIBRILLATION 2.0-3.0 MECHANICAL VALVES(HIGH RISK) 2.5-3.5 RECURRENT MYOCARDIAL INFARCTION 2.5-3.5 8 DIAGNOSIS CRITERIA MMB ng/ml Relative Index (RI) NON-AMI < or = 5 N/A CUEVAS ZONE > 5 < or = 4 AMI > 5 > 4 9 Units are mL/min/1.73 m2 Chronic Kidney Disease Staging per NKF: Stage I & II GFR >=60 Normal to Mildly Decreased Stage III GFR 30-59 Moderately Decreased Stage IV GFR 15-29 Severely Decreased Stage V GFR <15 Very Little GFR Left ESRD GFR <15 on [employer] 10 COMPLETE BLOOD COUNT [address] METABOLIC PANE L 12 Male GFR Interprentation 20-49 yrs >60 mL/min Normal 50-59 yrs >56 mL/min Normal 60-69 yrs >49 mL/min Normal 70-79yrs >42 mL/min Normal 80 and above >35 mL/min Normal Female GFR Interpretation 20-39 yrs >60 mL/min Normal 40-49 yrs >58 mL/min Normal 50-59 yrs >51 mL/min Normal 60-69 yrs >45 mL/min Normal 70-79 yrs >39 mL/min Normal 80 and above >32 mL/min Normal 13 CHRONIC KIDNEY DISEASE STAGI NG PER NKF: MALE GFR INTERPRETATION: 20-49 YRS: >60 mL/min Normal 50-59 YRS: >56 mL/min Normal 60-69 YRS: >49 mL/min Normal 70-79 YRS: >42 mL/min Normal 80 and above >35 mL/min Normal FEMALE GRF INTERPRETATION: 20-39 YRS: >60 mL/min Normal 40-49 YRS: >58 mL/min Normal 50-59 YRS: >51 mL/min Normal 60-69 YRS: >45 mL/min Normal 70-79 YRS: >39 mL/min Normal 80 and above >32 mL/min NormalCLASSIFICATION CHOLESTEROL FOR ADULTS CHILDREN/ADOLESCENTS* DESIRABLE: <200 MG/DL <170 MG/DL BORDER-LINE HIGH RISK: 200-239 MG/DL 170-199 MG/DL HIGH RISK: >240 MG/DL >200 MG/DL CLASS. FOR PRIMARY LDL CHOL PREVENTION: LDL CHOL-CHILD/ADOLESCENTS* DESIRABLE: <130 MG/DL <110 MG/DL BORDERLINE-HIGH RISK: 130-159 MG/DL 110-129 MG/DL HIGH RISK: >160 MG/DL >130 MG/DL *CHILDREN AND ADOLESCENTS REPRESENTS INDIVIDUALA AGED 2-19 YEARS EXCLUSIVE. 14 CKD-EPI 15 CKD-EPI 16 NORMAL RANGES Age WBC RBC HGB HCT MCV PLT Adult M 4.1-10.9 4.20-6.30 12.0-18.0 37.0-51.0 80-97 140-440 Adult F 4.1-10.9 4.04-5.48 12.0-18.0 37.0-51.0 80-97 140-440 0 -1 Yr 5.0-20.0 3.9-5.9 15-18 MV: 44 MV: 91 MV: 277 2-9 Yr. 6.0-17.0 3.8-5.4 11-13 MV: 37 MV: 78 MV: 300 10 Yrs. 5.0-13.0 3.8-5.4 12-15 MV: 39 MV: 80 MV: 250 NOTE: * FOR ADULT BLACK MALES AND FEMALES, NORMAL WBC IS 2.9-7.7 K/ML * FOR ADULT BLACK MALES AND FEMALES, NORMAL RBC,HGB, AND HCT IS 5% LESS SOURCE FOR DATA: [employer] 1800 OPERATION MANUAL( AUTOMATED BLOOD COUNTS AND DIFF.) APPENDIX B-3 CHRONIC KIDNEY DISEASE STAGING PER NKF: MALE GFR INTERPRETATION: 20-49 YRS: >60 mL/min Normal 50-59 YRS: >56 mL/min Normal 60-69 YRS: >49 mL/min Normal 70-79 YRS: >42 mL/min Normal 80 and above >35 mL/min Normal FEMALE GRF INTERPRETATION: 20-39 YRS: >60 mL/min Normal 40-49 YRS: >58 mL/min Normal 50-59 YRS: >51 mL/min Normal 60-69 YRS: >45 mL/min Normal 70-79 YRS: >39 mL/min Normal 80 and above >32 mL/min Normal 17 CKD-EPI 18 CKD-EPI Procedures Date Code Description Status 04/09/2021 13726 Office/Outpatient Established Mo d MDM 30-39 Min Completed 02/24/2021 35115 Office/Outpatient Established Lo w MDM 20-29 Min Completed 01/07/2021 99660 Office/Outpatient Established Mo d MDM 30-39 Min Completed 12/04/2020 56541 Office/Outpatient Established Mo d MDM 30-39 Min Completed 11/21/2020 03204 Office/Outpatient Established Lo w MDM 20-29 Min Completed 11/20/2020 07403 Office/Outpatient Established Lo w MDM 20-29 Min Completed 11/19/2020 29600 Office/Outpatient Established Mo d MDM 30-39 Min Completed Medical Devices Description No Information Available Encounters Type Date Location Provider Dx Diagnosis Office Visit 04/09/2021 3:30p [facility] Blaze Ruano, RP A E11.9 Type 2 diabetes mellitus without complications I10 Essential (primary) hyperten dennise E78.5 Hyperlipidemia, unspecified E03.9 Hypothyroidism, unspecified J44.9 Chronic obstructive pulmonar y disease, unspecified R30.0 Dysuria Office Visit 02/24/2021 10:20a [facility] Blaze Ruano, RP A E03.9 Hypothyroidism, unspecified Office Visit 01/07/2021 11:15a [facility] Blaze Ruano, RP A E11.9 Type 2 diabetes mellitus without complications I10 Essential (primary) hyperten dennise E78.5 Hyperlipidemia, unspecified 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, unspecified R30.0 Dysuria Office Visit 12/04/2020 9:45a [facility] Blaze Ruano, RP A I50.21 Acute systolic (congestive) heart failure I35.1 Nonrheumatic aortic (valve) insufficiency I10 Essential (primary) hyperten dennise E11.9 Type 2 diabetes mellitus wit hout complications Office Visit 11/21/2020 8:15a [facility] Blaze Ruano, RP A J44.1 Chronic obstructive pulmonary disease w (acute) exacerbation R06.02 Shortness of breath Office Visit 11/20/2020 2:20p [facility] Blaze Ruano, RP A J44.1 Chronic obstructive pulmonary disease w (acute) exacerbation R06.02 Shortness of breath Office Visit 11/19/2020 11:00a [facility] Blaze Ruano, RP A J44.1 Chronic obstructive pulmonary disease w (acute) exacerbation R06.02 Shortness of breath Assessments Date Code Description Provider 04/09/2021 E11.9 Type 2 diabetes mellitus without complications Blaze Ruano, RPA 04/09/2021 I10 Essential (primary) hypertension Blaze Ruano, RPA 04/09/2021 E78.5 Hyperlipidemia, unspecified Blaze Garcia, RPA 04/09/2021 E03.9 Hypothyroidism, unspecified Blaze Garcia, RPA 04/09/2021 J44.9 Chronic obstructive pulmonary di sease, unspecified Blaze Ruano, RPA 04/09/2021 R30.0 Dysuria Blaze Ruano, RPA 02/24/2021 E03.9 Hypothyroidism, unspecified Blaze Garcia, RPA 01/07/2021 E11.9 Type 2 diabetes mellitus without complications Blaze Ruano, RPA 01/07/2021 I10 Essential (primary) hypertension Blaze Ruano, RPA 01/07/2021 E78.5 Hyperlipidemia, unspecified Blaze Garcia, RPA 01/07/2021 D83.9 Common variable immunodeficiency , unspecified Blaze Ruano, RPA 01/07/2021 R30.0 Dysuria Blaze Ruano, RPA 12/12/2020 E11.9 Type 2 diabetes mellitus without complications Stephen Pugh D.O., [facility] 12/12/2020 E11.9 Type 2 diabetes mellitus without complications [facility] 12/12/2020 I50.21 Acute systolic (congestive) hear t failure Blaze Ruano, RPA 12/04/2020 I50.21 Acute systolic (congestive) hear t failure Blaze Ruano, RPA 12/04/2020 I35.1 Nonrheumatic aortic (valve) insu fficiency Blaze Ruano, RPA 12/04/2020 I10 Essential (primary) hypertension Blaze Ruano, RPA 12/04/2020 E11.9 Type 2 diabetes mellitus without complications Blaze Ruano, RPA 11/21/2020 J44.1 Chronic obstructive pulmonary disease with (acute) exacerbation Blaze Ruano, RPA 11/21/2020 R06.02 Shortness of breath Santo Ruano, RPA 11/20/2020 J44.1 Chronic obstructive pulmonary disease with (acute) exacerbation Blaze Ruano, RPA 11/20/2020 R06.02 Shortness of breath Santo Ruano, RPA 11/19/2020 J44.1 Chronic obstructive pulmonary disease with (acute) exacerbation Blaze Ruano, RPA 11/19/2020 R06.02 Shortness of breath Santo Ruano, RPA Plan of Treatment Future Appointment(s):* 07/11/2021 8:30 am - Blaze Ruano RPA at [facility] Functional Status Description No Information Available Mental Status Description No Information Available Referrals Refer to Reason for Referral Status Appt Date [facility] Burning, frequency, and urin dasha urgency dating to 12/04/20. See UA for 12/04/20 and 12/12/20. Sent 02/18/2021 [id number] [facility], [facility] [place] [address] [phone]
--- OUTSIDE RECORDS SUMMARY | 2021-05-06 08:31 | CCD | Continuity of Care Document ---
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 1units Stephen Pugh D.O. , [facility] 08/09/2015 Folic Acid 1mg Tablets 1 by mouth every day 90tabs Stephen Pugh D.O., [facility] Onetouch Verio Strips use every day before meals and as needed to test blood sugars E11.9 300units E11.9 Stephen Pugh D.O., [facility] 05/10/2014 Onetouch Delica Lancets Fine 30G 3 0G Misc use every day before meals and as needed as directed 300units E11.9 Stephen Pugh D.O., [facility] 05/10/2014 Celexa 20mg Tablets take one tablet by mouth once daily 90tabs Stephen Pugh D.O., [facility] Nebulizer Kit/Tubing/Mouthpiece/Cup Kit for use with nebulizer 1units Stephen Pugh D.O., [facility] 07/13/2013 Iron 325(65Fe) mg Tablets 1 p o bid Laine Shearer D.O. 07/08/2010 Tamsulosin HCL 0.4mg Capsules 1 by mouth every day Unknown Nitrostat 0.4mg Tablets Sub 1 sl q 5 min for chest pain. may take up to 3 doses at which point also seek medical attention. 30tabs Stephen Pugh D.O., [facility] Torsemide 10mg Tablets Unknown Tudorza Pressair 400mcg/Act Aeroso l 1 puff twice a day Unknown Prednisone 10mg Tablets 2 po daily Unknown Livalo 2mg Tablets take one tablet by mouth every day 90tabs Stephen Pugh D.O., [facility] Cefdinir 300mg Capsules 1 tab by mouth twice a day for 2 weeks, alternate with Cipro Un known Cipro 500mg Tablets 1 by mouth twice a day x 2 weeks.. alt. with cefdinir Unknown [address] 1 by mouth every day Unknown Calcium Citrate + D 499-468yd-Ipyw Tablets 2 by mouth daily Unknown Hizentra Solution inj ect every other wek Unknown Alphagan P 0.1% Solution 1 drop three times daily both eyes Unknown Travatan Z 0.004% Solution instill one drop in each eye once daily Unknown Bactrim DS 800-160mg Tablets 1 by mouth on Wed, Wed,and Wed Unknown Ipratropium Megargel 0.02% Solution inhale one vial via nebulizer [...] his largest meal. 90tabs Stephen Pugh D.O., [facility] 01/02/2021 - 02/06/2021 Januvia 100mg Tablets [...] RPA 06/21/2020 Injection (SC)/(Im) Injection Blaze Ruano, [facility] 06/20/2020 Injection (SC)/(Im) Injection Blaze Ruano, [facility] 06/19/2020 Injection (SC)/(Im) Injection Blaze Ruano, [facility] 08/19/2018 Injection (SC)/(Im) Injection Blaze Ruano, [facility] 08/18/2018 Injection (SC)/(Im) Injection Blaze Ruano, [facility] 05/06/2018 Injection (SC)/(Im) Injection Blaze Ruano, [facility] 04/25/2018 Injection (SC)/(Im) Injection Blaze Ruano, [facility] 12/02/2017 Injection (SC)/(Im) Injection Blaze Ruano, [facility] 12/01/2017 Injection (SC)/(Im) Injection Blaze Ruano, [facility] 10/29/2017 Injection (SC)/(Im) Injection Blaze Ruano, [facility] 10/28/2017 Injection (SC)/(Im) Injection Blaze Ruano, [facility] 10/27/2017 Injection (SC)/(Im) Injection Blaze Ruano, [facility] 10/08/2017 Injection (SC)/(Im) Injection Blaze Ruano, [facility] 10/07/2017 Injection (SC)/(Im) Injection Blaze Ruano, [facility] 10/06/2017 Injection (SC)/(Im) Injection Blaze Ruano, [facility] 10/05/2017 Injection (SC)/(Im) Injection Blaze Rauno, [facility] 10/04/2017 Injection (SC)/(Im) Injection Blaze Ruano, [facility] 10/01/2017 Injection (SC)/(Im) Injection Kimberly Tijerina, [facility] 08/06/2017 Injection (SC)/(Im) Injection Kimberly Tijerina, [facility] 08/05/2017 Injection (SC)/(Im) Injection Kimberly Tijerina, [facility] 08/04/2017 Injection (SC)/(Im) Injection Kimberly Tijerina, [facility] 08/03/2017 Injection (SC)/(Im) Injection Kimberly Breezy, [facility] 08/02/2017 Injection (SC)/(Im) Injection Blaze Ruano, [facility] 05/14/2017 Injection (SC)/(Im) Injection Blaze Ruano, [facility] 05/13/2017 Injection (SC)/(Im) Injection Blaze Ruano, [facility] 05/12/2017 Injection (SC)/(Im) Injection Blaze Ruano, [facility] 05/11/2017 Injection (SC)/(Im) Injection Blaze Ruano, [facility] 05/07/2017 Injection (SC)/(Im) Injection Blaze Ruano, [facility] 05/07/2017 Injection (SC)/(Im) Injection Blaze Ruano, [facility] 05/06/2017 Injection (SC)/(Im) Injection Blaze Ruano, [facility] 05/06/2017 Injection (SC)/(Im) Injection Blaze Ruano, [facility] 05/05/2017 Injection (SC)/(Im) Injection Blaze Ruano, [facility] 05/05/2017 Injection (SC)/(Im) Injection Blaze Ruano, [facility] 02/04/2017 Injection (SC)/(Im) Injection Blaze Ruano, [facility] 02/03/2017 Injection (SC)/(Im) Injection Blaze Ruano, [facility] 02/02/2017 Injection (SC)/(Im) Injection Blaze Ruano, [facility] 02/01/2017 Injection (SC)/(Im) Injection Blaze Ruano, [facility] 09/23/2016 Injection (SC)/(Im) Injection Blaze Ruano, [facility] 09/22/2016 Injection (SC)/(Im) Injection Blaze Ruano, [facility] 09/21/2016 Injection (SC)/(Im) Injection Blaze Ruano, [facility] 09/17/2016 Injection (SC)/(Im) Injection Blaze Ruano, [facility] 06/19/2016 Injection (SC)/(Im) Injection Blaze Ruano, [facility] 06/19/2016 Injection (SC)/(Im) Injection Blaze Ruano, [facility] 06/18/2016 Injection (SC)/(Im) Injection Blaze Ruano, [facility] 06/18/2016 Injection (SC)/(Im) Injection Blaze Ruano, [facility] 04/10/2016 Injection (SC)/(Im) Injection Blaze Ruano, [facility] 04/10/2016 Injection (SC)/(Im) Injection Blaze Ruano, [facility] 02/07/2016 Injection (SC)/(Im) Injection Blaze Ruano, [facility] 02/06/2016 Injection (SC)/(Im) Injection Blaze Ruano, [facility] 11/08/2015 Injection (SC)/(Im) Injection Yogesh Yanez M.D. 08/16/2015 Injection (SC)/(Im) Injection Blaze Ruano, [facility] 08/15/2015 Injection (SC)/(Im) Injection Yogesh Yanez M.D. 08/14/2015 Injection (SC)/(Im) Injection [facility] 08/14/2015 Injection (SC)/(Im) Injection Mickie Shearer, [facility] 08/13/2015 Injection (SC)/(Im) Injection Mickie Shearer, [facility] 08/13/2015 Injection (SC)/(Im) Injection Blaze Ruano, [facility] 09/07/2014 Injection (SC)/(Im) Injection Stephen Pugh D.O., [facility] 09/06/2014 Injection (SC)/(Im) Injection Blaze Ruano, [facility] 09/05/2014 Injection (SC)/(Im) Injection Blaze Ruano, [facility] 04/30/2014 Injection (SC)/(Im) Injection Kajal Harris, [facility] 01/05/2014 Injection (SC)/(Im) Injection Kajal Harris, [facility] 01/04/2014 Injection (SC)/(Im) Injection Kajal Harris, [facility] 01/03/2014 Injection (SC)/(Im) Injection Blaze Ruano, [facility] 12/15/2013 Injection (SC)/(Im) Injection Blaze Ruano, [facility] 12/14/2013 Injection (SC)/(Im) Injection Blaze Ruano, [facility] 05/01/2013 Injection (SC)/(Im) Injection Blaze Ruano, [facility] 04/28/2013 Injection (SC)/(Im) Injection Blaze Ruano, [facility] 04/27/2013 Injection (SC)/(Im) Injection Blaze Ruano, [facility] 01/18/2013 Injection (SC)/(Im) Injection Blaze Ruano, [facility] 12/19/2012 Injection (SC)/(Im) Injection Blaze Ruano, [facility] 10/10/2012 Injection (SC)/(Im) Injection Blaze Ruano, [facility] 10/07/2012 Injection (SC)/(Im) Injection Blaze Ruano, [facility] 10/06/2012 Injection (SC)/(Im) Injection Blaze Ruano, [facility] 10/05/2012 Injection (SC)/(Im) Injection Blaze Ruano, [facility] 10/04/2012 Injection (SC)/(Im) Injection Blaze Ruano, [facility] 07/25/2012 Injection (SC)/(Im) Injection Blaze Ruano, [facility] 05/25/2012 Injection (SC)/(Im) Injection Blaze Ruano, [facility] 04/14/2012 Injection (SC)/(Im) Injection Blaze Ruano, [facility] 12/29/2011 Injection (SC)/(Im) Injection Blaze Ruano, [facility] 12/24/2011 Injection (SC)/(Im) Injection Blaze Ruano, [facility] 07/07/2011 Injection (SC)/(Im) Injection Blaze Ruano, [facility] 07/06/2011 Injection (SC)/(Im) Injection Blaze Ruano, [facility] 07/02/2011 Injection (SC)/(Im) Injection Blaze Ruano, [facility] 06/25/2011 Injection (SC)/(Im) Injection Blaze Ruano, [facility] 06/05/2011 Injection (SC)/(Im) Injection Blaze Ruano, [facility] 04/11/2010 Injection (SC)/(Im) Injection Blaze Ruano, [facility] 04/10/2010 Injection (SC)/(Im) Injection Blaze Ruano, [facility] 03/28/2010 Injection (SC)/(Im) Injection Blaze Ruano, [facility] 03/27/2010 Injection (SC)/(Im) Injection Blaze Ruano, [facility] 10/11/2009 Injection (SC)/(Im) Injection Blaze Ruano, [facility] 06/21/2009 Injection (SC)/(Im) Injection Fady Salter 11/02/2008 Immunizations CPT Code Status Date Vaccine Reaction Lot # [id number] Given 12/30/2017 Zoster (Shingles) Vaccine RE CEIVED AT [facility] [address] [address] Refused 04/09/2021 Influenza Virus Vaccine, Quadrivalent, Slit Virus, Im Use 3Y & Up RECEIVED AT [facility] 03/16/21 23060 Refused 03/19/2020 Influenza Virus Vaccine, Quadrivalent, Slit Virus, Im Use 3Y & Up Senior dose given 03/11/2020 at [facility] Vital Signs Date Vital Result Comment 04/09/2021 3:33pm BP Systolic 124 mmHg BP Diastolic 84 mmHg Body Temperature 97.6 F Heart Rate 105 /min Respiratory Rate 20 /min Height 68 inches 5'8" Weight 147.00 lb [place] Body Weight 154 lb BMI (Body Mass Index) 22.3 kg/m2 O2 % BldC Oximetry 97 % (On O2 @ 2 LPM NC) 02/24/2021 4:04pm BP Systolic 130 mmHg BP Diastolic 80 mmHg Body Temperature 97.6 F Heart Rate 85 /min Respiratory Rate 16 /min Height 68 inches 5'8" Weight 151.00 lb [place] Body Weight 154 lb BMI (Body Mass Index) 23.0 kg/m2 O2 % BldC Oximetry 93 % (Room Air) Results Test Acquired Date Facility Test Result H/L Range Note Laboratory test finding 05/01/2021 [facility] (Interface) [phone] Lactic Acid Sepsis Protocol 1.5 mmol/L Normal 0.4- 2.0 1 Influenza A/B RSV Covid Amp 05/01/2021 [facility] dical (Interface) [phone] Influenza A Amplification NEGATIVE Normal Negati ve 2 Influenza B Amplification NEGATIVE Normal Negative 3 RSV Amplification NEGATIVE Normal Negative 4 Sars Covid-19 Amplification POSITIVE Abnormal Negative 5 Laboratory test finding 05/01/2021 [facility] (Interface) [phone] Procalcitonin <0.05 Normal 6 Venous Blood Gas 05/01/2021 [facility] (I nterface) [phone] Venous PH 7.391 units Normal 7.330-7.430 Venous Partial Pressure Co2 43.4 mmHg Normal 38.0-50.0 Venous Partial Pressure O2 47.6 mmHg Normal 30.0-50.0 Venous Total Co2 27.1 mEq/L Normal 24.0-28.0 Venous Hco3 25.7 mEq/L Normal 23.0-27.0 Venous Base Excess 0.5 Normal -2.0-2.0 Venous Standard Hco3 24.6 mEq/L Normal Venous O2 Saturation 83.3 % High 60.0-80.0 PT & Aptt 05/01/2021 [facility] ([facility]) [phone] Prothrombin Time 12.8 seconds Normal 12.7-14.5 Inr 0.93 Normal 7 Partial Thromboplastin Time 26.3 seconds Normal 25.9-37.0 Laboratory test finding 05/01/2021 [facility] (Interface) [phone] Fibrinogen 566 mg/dL High 268-480 Cardiac Marker Panel 05/01/2021 [facility] ( Interface) [phone] CPK Creatine Phosphokinase 65 U/L Normal 39-30 8 CK-MB Value Mass 2.2 NG/ML Normal <3.6 MB/CK Relative Index 3.38 Normal < Or =4 8 Troponin I High Sensitivity 53.0 ng/L Normal 3.0-78 Liver Profile 05/01/2021 [facility] ([facility]) [phone] Ast/Sgot 23 U/L Normal 7-37 Alt/SGPT 33 U/L Normal 12-78 Alkaline Phosphatase 79 U/L Normal 45-117 Bilirubin,Total 0.4 mg/dL Normal 0.2-1.0 Bilirubin,Direct < 0.1 mg/dL Normal 0.0-0.2 Total Protein 7.7 GM/DL Normal 6.4-8.2 Albumin 3.6 GM/DL Normal 3.2-5.2 Albumin/Globulin Ratio 0.9 Normal Basic Metabolic Profile 05/01/2021 [facility] (Interface) [phone] Glucose, Fasting 79 mg/dL Normal 70-100 Blood [...] mg/dL Normal 8.8-10.2 Laboratory test finding 05/01/2021 [facility] (Interface) [phone] LDH Lactate Dehydrogenase 290 U/L High 87-241 Magnesium Level 2.0 mg/dL Normal 1.8-2.4 NT-Pro BNP 453 pg/mL High <125 Thyroid Stimulating Hormone 1.050 uIU/ML Normal 0.358-3.740 Ferritin 80 NG/ML Normal 26-388 C Reactive Protein Quantitativ 2.55 mg/dL High 0.00-0.30 CBC With Differential 05/01/2021 [facility] (Interface) [phone] White Blood Count 15.1 10 High 4.0-10.0 [...] 36.0-66.0 Lymph % 3.8 % Low 24.0-44.0 Bacon % 5.3 % Normal 2.0-8.0 Eos % 0.4 % Normal 0.0-3.0 Baso % 0.3 % Normal 0.0-1.0 Immature Granulocyte % 1.0 % Normal 0-3.0 Nucleated Red Blood Cell % 0.0 % Normal 0-0 Neutrophils # 13.4 10 High 1.5-8.5 Lymph # 0.6 10 Low 1.5-5.0 Bacon # 0.8 10 Normal 0.0-0.8 Eos # 0.1 10 Normal 0.0-0.5 Baso # 0.1 10 Normal 0.0-0.2 Laboratory test finding 02/24/2021 [facility] TSH 2.449 ulU/mL 0.60 - 4.8 CBC W/Automated Diff 02/21/2021 [facility] [place] [address] [phone] CBC W/Automated Diff (SEE NOTE) 10 WBC [...] Lymph 5.5 % Low 25.0 - 40.0 Bacon 2.9 % Low 3.0 - 8.0 Eos 0.4 % 0.0 - 7.0 Baso 0.4 % 0.0 - 2.0 %Ig 1.0 % High 0.0 - 0.0 %NRBC 0.0 % 0.0 - 0.0 #Neut 15.59 10^3/uL High 2.00 - 6.90 #Lymph 0.96 10^3/uL 0.60 - 3.40 #Bacon 0.51 10^3/uL 0.00 - 0.90 #Eos 0.07 10^3/uL 0.00 - 0.70 #Baso 0.07 10^3/uL 0.00 - 0.20 #Ig 0.18 10^3/uL High 0.00 - 0.10 #NRBC 0.00 10^3/uL 0.00 - 0.00 Manual Diff NOT INDICATED RBC Morph NOT INDICATED Laboratory test finding 02/21/2021 [facility] [place], [place] [id number] [phone] Immunoglob G (Igg) S 955 mg/dL [phone] Comprehensive Metabolic Panel 02/21/2021 [place] [address] [phone] Comprehensive Metabo (SEE NOTE) 11 Sodium 136 [...] eGFR 120 # Calc 14 eGFR Non-Afr. Kenyan 103 # Calc 15 Lipid Panel 01/07/2021 [facility] Chol 166 mg/dL 0 - 200 Trig 175 mg/dL 35 - 200 HDL 68 mg/dL High 35 - 55 LDL_C 63 Calc Low 75 - 129 Cho/HDL Ratio 2.5 Calc Laboratory test finding 01/07/2021 [facility] Hemoglobin A1c 6.3 % High 4.50-6.20 U/A DIP A 12/12/2020 [facility] Color Urine YELLOW Yellow Appearance CLEAR Clear Specific [place] 1.025 1.00-1.03 PH Urine 7.5 5.0-8.0 Glucose Urine 1+ High Negative Bilirubin Urine NEG Negative Ketones TRACE Negative Blood Urine NEG Negative Protein Urine NEG Negative Urobilinogen .2 EU/dl 0.2-1.0 Nitrite NEG Negative Leukocytes NEG Negative U/A DIP FPA 12/04/2020 [facility]so ci[facility] Color Urine yellow Yellow Appearance clear Clear Specific [place] 1.010 1.00-1.03 PH Urine 5.0 5.0-8.0 Glucose [...] eGFR 106 # Calc 17 eGFR Non-Afr. Kenyan 92 # Calc 18 1 Y/N query [...] test. DISCLAIMER: Testing was performed using the [employer] SARS-CoV-2 test. This test was developed and its performance characteristics determined by [employer]. This test has not been FDA cleared [...] Little GFR Left ESRD GFR <15 on CONTOUR PATH TAPE MILL OPERATOR 10 COMPLETE BLOOD COUNT 11 COMPREHENSIVE METABOLIC [...] HCT IS 5% LESS SOURCE FOR DATA: [employer] 1800 OPERATION MANUAL( AUTOMATED BLOOD COUNTS AND [...] CKD-EPI Procedures Date Code Description Status 04/09/2021 40575 Office/Outpatient Established Mo d MDM 30-39 Min Completed 02/24/2021 18329 Office/Outpatient Established Lo w MDM 20-29 Min Completed 01/07/2021 41259 Office/Outpatient Established Mo d MDM 30-39 Min Completed 12/04/2020 87497 Office/Outpatient Established Mo d MDM 30-39 Min Completed 11/21/2020 41513 Office/Outpatient Established Lo w MDM 20-29 Min Completed 11/20/2020 25813 Office/Outpatient Established Lo w MDM 20-29 Min Completed 11/19/2020 93315 Office/Outpatient Established Mo d MDM 30-39 Min Completed Medical Devices Description No Information Available Encounters Type Date Location Provider Dx Diagnosis Office Visit 04/09/2021 3:30p [place] [facility] Blaze Ruano, RP A E11.9 Type 2 diabetes mellitus without complications I10 Essential (primary) hyperten dennise E78.5 Hyperlipidemia, unspecified E03.9 Hypothyroidism, unspecified J44.9 Chronic obstructive pulmonar y disease, unspecified R30.0 Dysuria Office Visit 02/24/2021 10:20a [place] Blaze Ruano, RP A E03.9 Hypothyroidism, unspecified Office Visit 01/07/2021 11:15a [place] Blaze Ruano, RP A E11.9 Type 2 diabetes mellitus without complications I10 Essential (primary) hyperten dennise E78.5 Hyperlipidemia, unspecified 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, unspecified R30.0 Dysuria Office Visit 12/04/2020 9:45a [place] Blaze Ruano, RP A I50.21 Acute systolic (congestive) heart failure I35.1 Nonrheumatic aortic (valve) insufficiency I10 Essential (primary) hyperten dennise E11.9 Type 2 diabetes mellitus wit hout complications Office Visit 11/21/2020 8:15a [place] Blaze Ruano, RP A J44.1 Chronic obstructive pulmonary disease w (acute) exacerbation R06.02 Shortness of breath Office Visit 11/20/2020 2:20p [facility] Blaze Ruano, RP A J44.1 Chronic obstructive pulmonary disease w (acute) exacerbation R06.02 Shortness of breath Office Visit 11/19/2020 11:00a [place] Blaze Ruano, RP A J44.1 Chronic [...] diabetes mellitus without complications Stephen Pugh D.O., [facility] 12/12/2020 E11.9 Type 2 diabetes mellitus without complications Laboratory [place] Schedule 12/12/2020 I50.21 Acute systolic (congestive) hear [...] 8:30 am - Blaze Ruano RPA at [place] [facility] Functional Status Description No Information Available Mental Status Description No Information Available Referrals Refer to Reason for Referral Status Appt Date [facility] Burning, frequency, and urin dasha urgency dating to 12/04/20. See UA for 12/04/20 and 12/12/20. Sent 02/18/2021 [address] [facility], [place] [address] [phone]
--- OUTSIDE RECORDS SUMMARY | 2021-05-06 08:34 | CCD ---
Author Author [facility] Organization [facility] Address Unknown Phone Unavailable Care Team Providers Care Efficiency Engineer Name Role Phone KETTY ESCALANTE MD Unavailable Unavailable KETTY ESCALANTE MD Unavailable Unavailable KETTY ESCALANTE MD Unavailable Unavailable KETTY ESCALANTE MD Unavailable Unavailable KETTY ESCALANTE MD Unavailable Unavailable KETTY ESCALANTE MD Unavailable Unavailable KETTY ESCALANTE MD Unavailable Unavailable KETTY ESCALANTE MD Unavailable Unavailable KETTY ESCALANTE MD Unavailable Unavailable KETTY ESCALANTE MD Unavailable Unavailable KETTY ESCALANTE MD Unavailable Unavailable KETTY ESCALANTE MD Unavailable Unavailable KETTY ESCALANTE MD Unavailable Unavailable KETTY ESCALANTE MD Unavailable Unavailable KETTY ESCALANTE MD Unavailable Unavailable KETTY ESCALANTE MD Unavailable Unavailable KETTY ESCALANTE MD Unavailable Unavailable KETTY ESCALANTE MD Unavailable Unavailable CHROSTOWSKIJONELLEKETTY MD Unavailable Unavailable CHROSTOWSKIJONELLEKETTY MD Unavailable Unavailable CHROSTOWSKIJONELLEKETTY MD Unavailable Unavailable CHROSTOWSKIJONELLEKETTY MD Unavailable Unavailable CHROSTOWSKIJONELLEKETTY MD Unavailable Unavailable CHROSTOWSKIJONELLEKETTY MD Unavailable Unavailable CHROSTOWSKI, KETTY MD Unavailable Unavailable CHROSTOWSKI KETTY MD Unavailable Unavailable CHROSTOWSKI, KETTY MD Unavailable Unavailable CHROSTOWSKI KETTY MD Unavailable Unavailable CHROSTOWSKI, KETTY MD Unavailable Unavailable CHROSTOWSKI, KETTY MD Unavailable Unavailable CHROSTOWSKI, KETTY MD Unavailable Unavailable CHROSTOWSKI, KETTY MD Unavailable Unavailable CHROSTOWSKI, KETTY MD Unavailable Unavailable CHROSTOWSKI, KETTY MD Unavailable Unavailable CHROSTOWSKI, KETTY MD Unavailable Unavailable CHROSTOWSKIJONELLEKETTY MD Unavailable Unavailable CHROSTOWSKIJONELLEKETTY MD Unavailable Unavailable CHROSTOWSKIKETTY MD Unavailable Unavailable CHROSTOWSKIKETTY MD Unavailable Unavailable Felicity Mtz MD Unavailable Unavailable Felicity Mtz MD Unavailable Unavailable Felicity Mtz MD Unavailable Unavailable Felicity Mtz MD Unavailable Unavailable Felicity Mtz MD Unavailable Unavailable Felicity Mtz MD Unavailable Unavailable Felicity Mtz MD Unavailable Unavailable Felicity Mtz MD Unavailable Unavailable Felicity Mtz MD Unavailable Unavailable Felicity Mtz MD Unavailable Unavailable Felicity Mtz MD Unavailable Unavailable Felicity Mtz MD Unavailable Unavailable Felicity Mtz MD Unavailable Unavailable Felicity Mtz MD Unavailable Unavailable Felicity Mtz MD Unavailable Unavailable Felicity Mtz MD Unavailable Unavailable Felicity Mtz MD Unavailable Unavailable Felicity Mtz MD Unavailable Unavailable Felicity Mtz MD Unavailable Unavailable Felicity Mtz MD Unavailable Unavailable Felicity Mtz MD Unavailable Unavailable Felicity Mtz MD Unavailable Unavailable Felicity Mtz MD Unavailable Unavailable Felicity Mtz MD Unavailable Unavailable Felicity Mtz MD Unavailable Unavailable Felicity Mtz MD Unavailable Unavailable Felicity Mtz MD Unavailable Unavailable Felicity Mtz MD Unavailable Unavailable Felicity Mtz MD Unavailable Unavailable Felicity Mtz MD Unavailable Unavailable Felicity Mtz MD Unavailable Unavailable Felicity Mtz MD Unavailable Unavailable Felicity Mtz MD Unavailable Unavailable Felicity Mtz MD Unavailable Unavailable Felicity Mtz MD Unavailable Unavailable Felicity Mtz MD Unavailable Unavailable Felicity Mtz MD Unavailable Unavailable Bibi, Felicity Camilo MD Unavailable Unavailable Cheridalia, Felicity Camilo MD Unavailable Unavailable Cheridalia, Felicity Camilo MD Unavailable Unavailable Cheridalia, Felicity Camilo MD Unavailable Unavailable Cheridalia, Felicity Camilo MD Unavailable Unavailable Cheridalia, Felicity Camilo MD Unavailable Unavailable Bibi, Felicity Camilo MD Unavailable Unavailable Bibi, Felicity Camilo MD Unavailable Unavailable Bibi, Felicity Camilo MD Unavailable Unavailable CAMPITELLI, Domingo CHONG MD Unavailable Unavailable CAMPITELLI, Domingo CHONG MD Unavailable Unavailable CAMPITELLI, Domingo CHONG MD Unavailable Unavailable FISCHI, Fco BAY MD Unavailable Unavailable FISCHI, Fco BAY MD Unavailable Unavailable FISCHI, Fco BAY MD Unavailable Unavailable FISCHI, Fco BAY MD Unavailable Unavailable FISCHI, Fco BAY MD Unavailable Unavailable FISCHI, Fco BAY MD Unavailable Unavailable FISCHI, Fco BAY MD Unavailable Unavailable FISCHI, Fco BAY MD Unavailable Unavailable FISCHI, Fco BAY MD Unavailable Unavailable FISCHI, Fco BAY MD Unavailable Unavailable FISCHI, Fco BAY MD Unavailable Unavailable FISCHI, Fco BAY MD Unavailable Unavailable FISCHI, Fco BAY MD Unavailable Unavailable FISCHI, Fco BAY MD Unavailable Unavailable FISCHI, Fco BAY MD Unavailable Unavailable FISCHI, Fco BAY MD Unavailable Unavailable FISCHI, Fco BAY MD Unavailable Unavailable FISCHI, Fco BAY MD Unavailable Unavailable FISCHI, Fco BAY MD Unavailable Unavailable FISCHI, Fco BAY MD Unavailable Unavailable FISCHI, Fco BAY MD Unavailable Unavailable FISCHI, Fco BAY MD Unavailable Unavailable FISCHI, Fco BAY MD Unavailable Unavailable FISCHI, Fco BAY MD Unavailable Unavailable FISCHI, Fco BAY MD Unavailable Unavailable FISCHI, Fco BAY MD Unavailable Unavailable FISCHI, Fco BAY MD Unavailable Unavailable FISCHI, Fco BAY MD Unavailable Unavailable FISCHI, Fco BAY MD Unavailable Unavailable FISCHI, Fco BAY MD Unavailable Unavailable FISCHI, Fco BAY MD Unavailable Unavailable FISCHI, Fco BAY MD Unavailable Unavailable FISCHI, Fco BAY MD Unavailable Unavailable FISCHI, Foc BAY MD Unavailable Unavailable FISCHI, Fco BAY MD Unavailable Unavailable FISCHI, Fco BAY MD Unavailable Unavailable FISCHI, Fco BAY MD Unavailable Unavailable FISCHI, Fco BAY MD Unavailable Unavailable FISCHI, Fco BAY MD Unavailable Unavailable FISCHI, Fco BAY MD Unavailable Unavailable FISCHI, Fco BAY MD Unavailable Unavailable FISCHI, Fco BAY MD Unavailable Unavailable FISCHI, Fco ABY MD Unavailable Unavailable FISCHI, Fco BAY MD Unavailable Unavailable FISCHI, Fco BAY MD Unavailable Unavailable FISCHI, Fco BAY MD Unavailable Unavailable FISCHI, Fco BAY MD Unavailable Unavailable FISCHI, Fco BAY MD Unavailable Unavailable FISCHI, Fco BAY MD Unavailable Unavailable FISCHI, Fco BAY MD Unavailable Unavailable FISCHI, Fco BAY MD Unavailable Unavailable FISCHI, Fco BAY MD Unavailable Unavailable FISCHI, Fco BAY MD Unavailable Unavailable FISCHI, Fco BAY MD Unavailable Unavailable FISCHI, Fco BAY MD Unavailable Unavailable FISCHI, Fco BAY MD Unavailable Unavailable FISCHI, Fco BAY MD Unavailable Unavailable FISCHI, Fco BAY MD Unavailable Unavailable FISCHI, Fco BAY MD Unavailable Unavailable FISCHI, Fco BAY MD Unavailable Unavailable FISCHI, Fco BAY MD Unavailable Unavailable FISCHI, Fco BAY MD Unavailable Unavailable FISCHI, Fco BAY MD Unavailable Unavailable FISCHI, Fco BAY MD Unavailable Unavailable FISCHI, Fco BAY MD Unavailable Unavailable FISCHI, Fco BAY MD Unavailable Unavailable FISCHI, Fco BAY MD Unavailable Unavailable FISCHI, Fco BAY MD Unavailable Unavailable FISCHI, Fco BAY MD Unavailable Unavailable FISCHI, Fco BAY MD Unavailable Unavailable FISCHI, Fco BAY MD Unavailable Unavailable FISCHI, Fco BAY MD Unavailable Unavailable FISCHI, Fco BAY MD Unavailable Unavailable FISCHI, Fco BAY MD Unavailable Unavailable FISCHI, Fco BAY MD Unavailable Unavailable FISCHI, Fco BAY MD Unavailable Unavailable FISCHI, Fco BAY MD Unavailable Unavailable FISCHI, Fco BAY MD Unavailable Unavailable FISCHI, Fco BAY MD Unavailable Unavailable Mohan, L Karla RPA Unavailable Unavailable Mohan, L Karla RPA Unavailable Unavailable Mohan, L Karla RPA Unavailable Unavailable Mohan, L Karla RPA Unavailable Unavailable Mohan, L Karla RPA Unavailable Unavailable Mohan, L Karla RPA Unavailable Unavailable Mohan, L Karla RPA Unavailable Unavailable Mohan, L Karla RPA Unavailable Unavailable Mohan, L Karla RPA Unavailable Unavailable Mohan, L Karla RPA Unavailable Unavailable Mohan, L Karla RPA Unavailable Unavailable Mohan, L Karla RPA Unavailable Unavailable Mohan, L Karla RPA Unavailable Unavailable Mohan, L Karla RPA Unavailable Unavailable Mohan, L Karla RPA Unavailable Unavailable Mohan, L Karla RPA Unavailable Unavailable Mohan, L Karla RPA Unavailable Unavailable Mohan, L Karla RPA Unavailable Unavailable Mohan, L Karla RPA Unavailable Unavailable Mohan, L Karla RPA Unavailable Unavailable Mohan, L Karla RPA Unavailable Unavailable Mohan, L Karla RPA Unavailable Unavailable Mohan, L Karla RPA Unavailable Unavailable Mohan, L Karla RPA Unavailable Unavailable Mohan, L Karla RPA Unavailable Unavailable Mohan, L Karla RPA Unavailable Unavailable Mohan, L Karla RPA Unavailable Unavailable Mohan, L Karla RPA Unavailable Unavailable Mohan, L Karla RPA Unavailable Unavailable Mohan, L Karla RPA Unavailable Unavailable Mohan, L Karla RPA Unavailable Unavailable Mohan, L Karla RPA Unavailable Unavailable Sweet, Gambee Renae PA-C Unavailable Unavailable Sweet, Gambee Renae PA-C Unavailable Unavailable Sweet, Gambee Renae PA-C Unavailable Unavailable Sweet, Gambee Renae PA-C Unavailable Unavailable Sweet, Gambee Renae PA-C Unavailable Unavailable Sweet, Gambee Renae PA-C Unavailable Unavailable Sweet, Gambee Renae PA-C Unavailable Unavailable Sweet, Gambee Renae PA-C Unavailable Unavailable Sweet, Gambee Renae PA-C Unavailable Unavailable Sweet, Gambee Renae PA-C Unavailable Unavailable Sweet, Gambee Renae PA-C Unavailable Unavailable Sweet, Gambee Renae PA-C Unavailable Unavailable Sweet, Gambee Renae PA-C Unavailable Unavailable Sweet, Gambee Renae PA-C Unavailable Unavailable Sweet, Gambee Renae PA-C Unavailable Unavailable Sweet, Gambee Renae PA-C Unavailable Unavailable Sweet, Gambee Renae PA-C Unavailable Unavailable Sweet, Gambee Renae PA-C Unavailable Unavailable Sweet, Gambee Renae PA-C Unavailable Unavailable Sweet, Gambee Renae PA-C Unavailable Unavailable Sweet, Gambee Renae PA-C Unavailable Unavailable Sweet, Gambee Renae PA-C Unavailable Unavailable Sweet, Gambee Renae PA-C Unavailable Unavailable Sweet, Gambee Renae PA-C Unavailable Unavailable Sweet, Gambee Renae PA-C Unavailable Unavailable Sweet, Gambee Renae PA-C Unavailable Unavailable Sweet, Gambee Renae PA-C Unavailable Unavailable Sweet, Gambee Renae PA-C Unavailable Unavailable Sweet, Gambee Renae PA-C Unavailable Unavailable Sweet, Gambee Renae PA-C Unavailable Unavailable Sweet, Gambee Renae PA-C Unavailable Unavailable Sweet, Gambee Renae PA-C Unavailable Unavailable Sweet, Gambee Renae PA-C Unavailable Unavailable Sweet, Gambee Renae PA-C Unavailable Unavailable Sweet, Gambee Renae PA-C Unavailable Unavailable Sweet, Gambee Renae PA-C Unavailable Unavailable Sweet, Gambee Renae PA-C Unavailable Unavailable Sweet, Gambee Renae PA-C Unavailable Unavailable Sweet, Gambee Renae PA-C Unavailable Unavailable Sweet, Gambee Renae PA-C Unavailable Unavailable FISCHI, Fco BAY MD Unavailable Unavailable FISCHI, Fco BAY MD Unavailable Unavailable FISCHI, Fco BAY MD Unavailable Unavailable FISCHI, Fco BAY MD Unavailable Unavailable FISCHI, Fco BAY MD Unavailable Unavailable FISCHI, Fco BAY MD Unavailable Unavailable FISCHI, Fco BAY MD Unavailable Unavailable FISCHI, Fco BAY MD Unavailable Unavailable FISCHI, Fco BAY MD Unavailable Unavailable FISCHI, Fco BAY MD Unavailable Unavailable FISCHI, Fco BAY MD Unavailable Unavailable FISCHI, Fco BAY MD Unavailable Unavailable FISCHI, Fco BAY MD Unavailable Unavailable FISCHI, Fco BAY MD Unavailable Unavailable FISCHI, Fco BAY MD Unavailable Unavailable FISCHI, Fco BAY MD Unavailable Unavailable FISCHI, Fco BAY MD Unavailable Unavailable FISCHI, Fco BAY MD Unavailable Unavailable FISCHI, Fco BAY MD Unavailable Unavailable FISCHI, Fco BAY MD Unavailable Unavailable FISCHI, Fco BAY MD Unavailable Unavailable FISCHI, Fco BAY MD Unavailable Unavailable FISCHI, Fco BAY MD Unavailable Unavailable FISCHI, Fco BAY MD Unavailable Unavailable FISCHI, Fco BAY MD Unavailable Unavailable FISCHI, Fco BAY MD Unavailable Unavailable FISCHI, Fco BAY MD Unavailable Unavailable FISCHI, Fco BAY MD Unavailable Unavailable FISCHI, Fco BAY MD Unavailable Unavailable FISCHI, Fco BAY MD Unavailable Unavailable FISCHI, Fco BAY MD Unavailable Unavailable FISCHI, Fco BAY MD Unavailable Unavailable FISCHI, Fco BAY MD Unavailable Unavailable FISCHI, Fco BAY MD Unavailable Unavailable FISCHI, Fco BAY MD Unavailable Unavailable FISCHI, Fco BAY MD Unavailable Unavailable FISCHI, Fco BAY MD Unavailable Unavailable FISCHI, Fco BAY MD Unavailable Unavailable FISCHI, Fco BAY MD Unavailable Unavailable FISCHI, Fco BAY MD Unavailable Unavailable FISCHI, Fco BAY MD Unavailable Unavailable FISCHI, Fco BAY MD Unavailable Unavailable FISCHI, Fco BAY MD Unavailable Unavailable FISCHI, Fco BAY MD Unavailable Unavailable FISCHI, Fco BAY MD Unavailable Unavailable FISCHI, Fco BAY MD Unavailable Unavailable FISCHI, Fco BAY MD Unavailable Unavailable FISCHI, Fco BAY MD Unavailable Unavailable FISCHI, Fco BAY MD Unavailable Unavailable FISCHI, Fco BAY MD Unavailable Unavailable FISCHI, Fco BAY MD Unavailable Unavailable FISCHI, Fco BAY MD Unavailable Unavailable FISCHI, Fco BAY MD Unavailable Unavailable FISCHI, Fco BAY MD Unavailable Unavailable FISCHI, Fco BAY MD Unavailable Unavailable FISCHI, Fco BAY MD Unavailable Unavailable FISCHI, Fco BAY MD Unavailable Unavailable FISCHI, Fco BAY MD Unavailable Unavailable FISCHI, Fco BAY MD Unavailable Unavailable FISCHI, Fco BAY MD Unavailable Unavailable FISCHI, Fco BAY MD Unavailable Unavailable FISCHI, Fco BAY MD Unavailable Unavailable FISCHI, Fco BAY MD Unavailable Unavailable FISCHI, Fco BAY MD Unavailable Unavailable FISCHI, Fco BAY MD Unavailable Unavailable FISCHI, Fco BAY MD Unavailable Unavailable FISCHI, Fco BAY MD Unavailable Unavailable FISCHI, Fco BAY MD Unavailable Unavailable FISCHI, Fco BAY MD Unavailable Unavailable FISCHI, Fco BAY MD Unavailable Unavailable FISCHI, Fco BAY MD Unavailable Unavailable FISCHI, Fco BAY MD Unavailable Unavailable FISCHI, Fco BAY MD Unavailable Unavailable FISCHI, cFo BAY MD Unavailable Unavailable FISCHI, Fco BAY MD Unavailable Unavailable FISCHI, Fco BAY MD Unavailable Unavailable FISCHI, Fco BYA MD Unavailable Unavailable FISCHI, Fco BAY MD Unavailable Unavailable FISCHI, Fco BAY MD Unavailable Unavailable Overholt, T Henri PA Unavailable Unavailable Overholt, T Henri PA Unavailable Unavailable Overholt, T Henri PA Unavailable Unavailable Overholt, T Henri PA Unavailable Unavailable Overholt, T Henri PA Unavailable Unavailable Overholt, T Henri PA Unavailable Unavailable Overholt, T Henri PA Unavailable Unavailable Overholt, T Henri PA Unavailable Unavailable Overholt, T Henri PA Unavailable Unavailable Overholt, T Henri PA Unavailable Unavailable Overholt, T Henri PA Unavailable Unavailable Overholt, T Henri PA Unavailable Unavailable Overholt, T Henri PA Unavailable Unavailable Overholt, T Henri PA Unavailable Unavailable Overholt, T Henri PA Unavailable Unavailable Oswald, Nina Bay PA Unavailable Unavailable Oswald, Nina Bay PA Unavailable Unavailable OswaldNina wright PA Unavailable Unavailable OswaldNina wright PA Unavailable Unavailable OswaldNina wright PA Unavailable Unavailable OswaldNina wright PA Unavailable Unavailable OswaldNina wright PA Unavailable Unavailable OswaldNina wright PA Unavailable Unavailable OswaldNina wright PA Unavailable Unavailable OswaldNina wright PA Unavailable Unavailable OswaldNina wright PA Unavailable Unavailable Oswald, Nina Bay PA Unavailable Unavailable OswaldNina wright PA Unavailable Unavailable OswaldNina lou PA Unavailable Unavailable OswaldNina lou PA Unavailable Unavailable OswaldNina lou PA Unavailable Unavailable OswaldNina lou PA Unavailable Unavailable OswaldNina lou PA Unavailable Unavailable OswaldNina lou PA Unavailable Unavailable OswaldNina lou PA Unavailable Unavailable OswaldNina lou PA Unavailable Unavailable OswaldNina lou PA Unavailable Unavailable Oswald, D Shanique PA Unavailable Unavailable Oswald, D Shanique PA Unavailable Unavailable Oswald, D Shanique PA Unavailable Unavailable Oswald, D Shanique PA Unavailable Unavailable Oswald, D Shanique PA Unavailable Unavailable Oswald, D Shanique PA Unavailable Unavailable Oswald, D Shanique PA Unavailable Unavailable Oswald, D Shanique PA Unavailable Unavailable Oswald, D Shanique PA Unavailable Unavailable Oswald, D Shanique PA Unavailable Unavailable Oswald, D Shanique PA Unavailable Unavailable Oswald, D Shanique PA Unavailable Unavailable Oswald, D Shanique PA Unavailable Unavailable Oswald, D Shanique PA Unavailable Unavailable Oswald, D Shanique PA Unavailable Unavailable Oswald, D Shanique PA Unavailable Unavailable Oswald, D Shanique PA Unavailable Unavailable Oswald, D Shanique PA Unavailable Unavailable Oswald, D Shanique PA Unavailable Unavailable Oswald, D Shanique PA Unavailable Unavailable Oswald, D Shanique PA Unavailable Unavailable Oswald, D Shanique PA Unavailable Unavailable Oswald, D Shanique PA Unavailable Unavailable Oswald, D Shanique PA Unavailable Unavailable Oswald, D Shanique PA Unavailable Unavailable Oswald, D Shanique PA Unavailable Unavailable Oswald, D Shanique PA Unavailable Unavailable Oswald, D Shanique PA Unavailable Unavailable Oswald, D Shanique PA Unavailable Unavailable Oswald, D Shanique PA Unavailable Unavailable Oswald, D Shanique PA Unavailable Unavailable Oswald, D Shanique PA Unavailable Unavailable Oswald, D Shanique PA Unavailable Unavailable Oswald, D Shanique PA Unavailable Unavailable Oswald, D Shanique PA Unavailable Unavailable Oswald, D Shanique PA Unavailable Unavailable Oswald, D Shanique PA Unavailable Unavailable Oswald, D Shanique PA Unavailable Unavailable Oswald, D Shanique PA Unavailable Unavailable Oswald, D Shanique PA Unavailable Unavailable Oswald, D Shanique PA Unavailable Unavailable Oswald, D Shanique PA Unavailable Unavailable Oswald, D Shanique PA Unavailable Unavailable Oswald, D Shanique PA Unavailable Unavailable Oswald, D Shanique PA Unavailable Unavailable Oswald, D Shanique PA Unavailable Unavailable Fco PLASENCIA MD Unavailable Unavailable Fco PLASENCIA MD Unavailable Unavailable Fco PLASENCIA MD Unavailable Unavailable Fco PLASENCIA MD Unavailable Unavailable Fco PLASENCIA MD Unavailable Unavailable Fco PLASENCIA MD Unavailable Unavailable Fco PLASENCIA MD Unavailable Unavailable Fco PLASENCIA MD Unavailable Unavailable Fco PLASENCIA MD Unavailable Unavailable Fco PLASENCIA MD Unavailable Unavailable Fco PLASENCIA MD Unavailable Unavailable Fco PLASENCIA MD Unavailable Unavailable Fco PLASENCIA MD Unavailable Unavailable Fco PLASENCIA MD Unavailable Unavailable Fco PLASENCIA MD Unavailable Unavailable Fco PLASENCIA MD Unavailable Unavailable Fco PLASENCIA MD Unavailable Unavailable SOBIAFco MERCER MD Unavailable Unavailable Fco PLASENCIA MD Unavailable Unavailable SOBIAFco MERCER MD Unavailable Unavailable SOBIAFco MERCER MD Unavailable Unavailable Fco PLASENCIA MD Unavailable Unavailable SOBIAFco MERCER MD Unavailable Unavailable SOBIAFco MERCER MD Unavailable Unavailable SOBIAFco MD Unavailable Unavailable SOBIAFco MERCER MD Unavailable Unavailable SOBIAFco MERCER MD Unavailable Unavailable Fco PLASENCIA MD Unavailable Unavailable Fco PLASENCIA MD Unavailable Unavailable SOBIAFco MERCER MD Unavailable Unavailable SOBIAFco MERCER MD Unavailable Unavailable SOBIAFco MD Unavailable Unavailable SOBIAFco MD Unavailable Unavailable SOBIA, C ASHANTI MD Unavailable Unavailable Homero II, Ajay PA Unavailable Unavailable Homero II, Ajay PA Unavailable Unavailable Homero II, Ajay PA Unavailable Unavailable Homero II, Ajay PA Unavailable Unavailable Homero II, Ajay PA Unavailable Unavailable Homero II, Ajay PA Unavailable Unavailable Homero II, Ajay PA Unavailable Unavailable Homero II, Ajay PA Unavailable Unavailable Homero II, Ajay PA Unavailable Unavailable Homero II, Ajay PA Unavailable Unavailable Homero II, Ajay PA Unavailable Unavailable Homero II, Ajay PA Unavailable Unavailable Homero II, Ajay PA Unavailable Unavailable Homero II, Ajay PA Unavailable Unavailable Homero II, Ajay PA Unavailable Unavailable Homero II, Ajay PA Unavailable Unavailable Homero II, Ajay PA Unavailable Unavailable Homero II, Ajay PA Unavailable Unavailable Homero II, Ajay PA Unavailable Unavailable Ria OCASIO MD Unavailable Unavailable Ria OCASIO MD Unavailable Unavailable Ria OCASIO MD Unavailable Unavailable Ria OCASIO MD Unavailable Unavailable Ria OCASIO MD Unavailable Unavailable FERMIN ROSAS MD Unavailable Unavailable FERMIN ROSAS MD Unavailable Unavailable FERMIN ROSAS MD Unavailable Unavailable KETTY ESCALANTE MD Unavailable Unavailable KETTY ESCALANTE MD Unavailable Unavailable KETTY ESCALANTE MD Unavailable Unavailable CHROSTOWSKI, KETTY MD Unavailable Unavailable CHROSTOWSKIJONELLEKETTY MD Unavailable Unavailable CHROSTOWSKIJONELLEKETTY MD Unavailable Unavailable CHROSTOWSKIKETTY MD Unavailable Unavailable CHROSTOWSKIKETTY MD Unavailable Unavailable CHROSTOWSKIKETTY MD Unavailable Unavailable CHROSTOWSKIKETTY MD Unavailable Unavailable CHROSTOWSKIJONELLEKETTY MD Unavailable Unavailable CHROSTOWSKIJONELLEKETTY MD Unavailable Unavailable CHROSTOWSKIJONELLEKETTY MD Unavailable Unavailable CHROSTOWSKIKETTY MD Unavailable Unavailable CHROSTOWSKIKETTY MD Unavailable Unavailable CHROSTOWSKIJONELLEKETTY MD Unavailable Unavailable CHROSTOWSKIJONELLEKETTY MD Unavailable Unavailable CHROSTOWSKIJONELLEKETTY MD Unavailable Unavailable CHROSTOWSKIJONELLEKETTY MD Unavailable Unavailable CHROSTOWSKIKETTY MD Unavailable Unavailable CHROSTOWSKIKETTY MD Unavailable Unavailable CHROSTOWSKIKETTY MD Unavailable Unavailable CHROSTOWSKIJONELLEKETTY MD Unavailable Unavailable CHROSTOWSKIJONELLEKETTY MD Unavailable Unavailable CHROSTOWSKIJONELLEKETTY MD Unavailable Unavailable CHROSTOWSKIKETTY MD Unavailable Unavailable CHROSTOWSKIKETTY MD Unavailable Unavailable CHROSTOWSKIKETTY MD Unavailable Unavailable CHROSTOWSKIJONELLEKETTY MD Unavailable Unavailable CHROSTOWSKIJONELLEKETTY MD Unavailable Unavailable CHROSTOWSKIJONELLEKETTY MD Unavailable Unavailable CHROSTOWSKIKETTY MD Unavailable Unavailable CHROSTOWSKIKETTY MD Unavailable Unavailable CHROSTOWSKIKETTY MD Unavailable Unavailable CHROSTOWSKIJONELLEKETTY MD Unavailable Unavailable CHROSTOWSKIJONELLEKETTY MD Unavailable Unavailable CHROSTOWSKIJONELLEKETTY MD Unavailable Unavailable CHROSTOWSKIKETTY MD Unavailable Unavailable CHROSTOWSKIKETTY MD Unavailable Unavailable ZABOROWSKI, J PO FOREST FIRE FIGHTER Unavailable Unavailable ZABOROWSKI, J PO FOREST FIRE FIGHTER Unavailable Unavailable ZABOROWSKI, J PO FOREST FIRE FIGHTER Unavailable Unavailable ZABOROWSKI, J PO FOREST FIRE FIGHTER Unavailable Unavailable ZABOROWSKI, J PO FOREST FIRE FIGHTER Unavailable Unavailable ZABOROWSKI, J PO FOREST FIRE FIGHTER Unavailable Unavailable ZABOROWSKI, J PO FOREST FIRE FIGHTER Unavailable Unavailable ZABOROWSKI, J PO FOREST FIRE FIGHTER Unavailable Unavailable ZABOROWSKI, J PO FOREST FIRE FIGHTER Unavailable Unavailable ZABOROWSKI, J PO FOREST FIRE FIGHTER Unavailable Unavailable ZABOROWSKI, J PO FOREST FIRE FIGHTER Unavailable Unavailable ZABOROWSKI, J PO FOREST FIRE FIGHTER Unavailable Unavailable ZABOROWSKI, J PO FOREST FIRE FIGHTER Unavailable Unavailable ZABOROWSKI, J PO FOREST FIRE FIGHTER Unavailable Unavailable ZABOROWSKI, J PO FOREST FIRE FIGHTER Unavailable Unavailable ZABOROWSKI, J PO FOREST FIRE FIGHTER Unavailable Unavailable ZABOROWSKI, J PO FOREST FIRE FIGHTER Unavailable Unavailable ZABOROWSKI, J PO FOREST FIRE FIGHTER Unavailable Unavailable ZABOROWSKI, J PO FOREST FIRE FIGHTER Unavailable Unavailable ZABOROWSKI, J PO FOREST FIRE FIGHTER Unavailable Unavailable ZABOROWSKI, J PO FOREST FIRE FIGHTER Unavailable Unavailable ZABOROWSKI, J PO FOREST FIRE FIGHTER Unavailable Unavailable ZABOROWSKI, J PO FOREST FIRE FIGHTER Unavailable Unavailable ZABOROWSKI, J PO FOREST FIRE FIGHTER Unavailable Unavailable ZABOROWSKI, J PO FOREST FIRE FIGHTER Unavailable Unavailable ZABOROWSKI, J PO FOREST FIRE FIGHTER Unavailable Unavailable ZABOROWSKI, J PO FOREST FIRE FIGHTER Unavailable Unavailable ZABOROWSKI, J PO FOREST FIRE FIGHTER Unavailable Unavailable ZABOROWSKI, J PO FOREST FIRE FIGHTER Unavailable Unavailable ZABOROWSKI, J PO FOREST FIRE FIGHTER Unavailable Unavailable ZABOROWSKI, J PO FOREST FIRE FIGHTER Unavailable Unavailable ZABOROWSKI, J PO FOREST FIRE FIGHTER Unavailable Unavailable ZABOROWSKI, J PO FOREST FIRE FIGHTER Unavailable Unavailable ZABOROWSKI, J PO FOREST FIRE FIGHTER Unavailable Unavailable ZABOROWSKI, J PO FOREST FIRE FIGHTER Unavailable Unavailable ZABOROWSKI, J PO FOREST FIRE FIGHTER Unavailable Unavailable ZABOROWSKI, J PO FOREST FIRE FIGHTER Unavailable Unavailable ZABOROWSKI, J PO FOREST FIRE FIGHTER Unavailable Unavailable ZABOROWSKI, J PO FOREST FIRE FIGHTER Unavailable Unavailable ZABOROWSKI, J PO FOREST FIRE FIGHTER Unavailable Unavailable ZABOROWSKI, J PO FOREST FIRE FIGHTER Unavailable Unavailable ZABOROWSKI, J PO FOREST FIRE FIGHTER Unavailable Unavailable ZABOROWSKI, J PO FOREST FIRE FIGHTER Unavailable Unavailable ZABOROWSKI, J PO FOREST FIRE FIGHTER Unavailable Unavailable ZABOROWSKI, J PO FOREST FIRE FIGHTER Unavailable Unavailable ZABOROWSKI, J PO FOREST FIRE FIGHTER Unavailable Unavailable ZABOROWSKI, J PO FOREST FIRE FIGHTER Unavailable Unavailable ZABOROWSKI, J PO FOREST FIRE FIGHTER Unavailable Unavailable ZABOROWSKI, J PO FOREST FIRE FIGHTER Unavailable Unavailable SEARS, A DINESH DO Unavailable Unavailable SEARS, A DINESH DO Unavailable Unavailable SEARS, A DINESH DO Unavailable Unavailable SEARS, A DINESH DO Unavailable Unavailable SEARS, A DINESH DO Unavailable Unavailable SEARS, A DINESH DO Unavailable Unavailable SEARS, A DINESH DO Unavailable Unavailable SEARS, A DINESH DO Unavailable Unavailable SEARS, A DINESH DO Unavailable Unavailable SEARS, A DINESH DO Unavailable Unavailable SEARS, A DINESH DO Unavailable Unavailable SEARS, A DINESH DO Unavailable Unavailable SEARS, A DINESH DO Unavailable Unavailable SEARS, A DINESH DO Unavailable Unavailable SEARS, A DINESH DO Unavailable Unavailable SEARS, A DINESH DO Unavailable Unavailable SEARS, A DINESH DO Unavailable Unavailable SEARS, A DINESH DO Unavailable Unavailable SEARS, A DINESH DO Unavailable Unavailable SEARS, A DINESH DO Unavailable Unavailable SEARS, A DINESH DO Unavailable Unavailable SEARS, A DINESH DO Unavailable Unavailable SEARS, A DINESH DO Unavailable Unavailable SEARS, A DINESH DO Unavailable Unavailable SEARS, A DINESH DO Unavailable Unavailable SEARS, A DINESH DO Unavailable Unavailable SEARS, A DINESH DO Unavailable Unavailable SEARS, A DINESH DO Unavailable Unavailable SEARS, A DINESH DO Unavailable Unavailable SEARS, A DINESH DO Unavailable Unavailable SEARS, A DINESH DO Unavailable Unavailable SEARS, A DINESH DO Unavailable Unavailable SEARS, A DINESH DO Unavailable Unavailable SEARS, A DINESH DO Unavailable Unavailable SEARS, A DINESH DO Unavailable Unavailable SEARS, A DINESH DO Unavailable Unavailable SEARS, A DINESH DO Unavailable Unavailable SEARS, A DINESH DO Unavailable Unavailable SEARS, A DINESH DO Unavailable Unavailable SEARS, A DINESH DO Unavailable Unavailable SEARS, A DINESH DO Unavailable Unavailable SEARS, A DINESH DO Unavailable Unavailable SEARS, A DINESH DO Unavailable Unavailable SEARS, A DINESH DO Unavailable Unavailable SEARS, A DINESH DO Unavailable Unavailable SEARS, A DINESH DO Unavailable Unavailable SEARS, A DINESH DO Unavailable Unavailable SEARS, A DINESH DO Unavailable Unavailable Oswald, D Shanique PA Unavailable Unavailable Oswald, D Shanique PA Unavailable Unavailable Oswald, D Shanique PA Unavailable Unavailable Oswald, D Shanique PA Unavailable Unavailable Oswald, D Shanique PA Unavailable Unavailable Oswald, D Shanique PA Unavailable Unavailable Oswald, D Shanique PA Unavailable Unavailable Oswald, D Shanique PA Unavailable Unavailable Oswald, D Shanique PA Unavailable Unavailable Oswald, D Shanique PA Unavailable Unavailable Oswald, D Shanique PA Unavailable Unavailable Oswald, D Shanique PA Unavailable Unavailable Oswald, D Shanique PA Unavailable Unavailable Oswald, D Shanique PA Unavailable Unavailable Oswald, D Shanique PA Unavailable Unavailable Oswald, D Shanique PA Unavailable Unavailable Oswald, D Shanique PA Unavailable Unavailable Oswald, D Shanique PA Unavailable Unavailable Oswald, D Shanique PA Unavailable Unavailable Oswald, D Shanique PA Unavailable Unavailable Oswald, D Shanique PA Unavailable Unavailable Oswald, D Shanique PA Unavailable Unavailable Oswald, D Shanique PA Unavailable Unavailable Oswald, D Shanique PA Unavailable Unavailable Oswald, D Shanique PA Unavailable Unavailable Oswald, D Shanique PA Unavailable Unavailable Oswald, D Shanique PA Unavailable Unavailable Oswald, D Shanique PA Unavailable Unavailable Oswald, D Shanique PA Unavailable Unavailable Oswald, D Shanique PA Unavailable Unavailable Oswald, D Shanique PA Unavailable Unavailable Oswald, D Shanique PA Unavailable Unavailable Oswald, D Shanique PA Unavailable Unavailable Oswald, D Shanique PA Unavailable Unavailable Oswald, D Shanique PA Unavailable Unavailable Oswald, D Shanique PA Unavailable Unavailable Oswald, D Shanique PA Unavailable Unavailable Oswald, D Shanique PA Unavailable Unavailable Oswald, D Shanique PA Unavailable Unavailable Oswald, D Shanique PA Unavailable Unavailable Oswald, D Shanique PA Unavailable Unavailable Oswald, D Shanique PA Unavailable Unavailable Oswald, D Shanique PA Unavailable Unavailable Oswald, D Shanique PA Unavailable Unavailable Oswald, D Shanique PA Unavailable Unavailable Oswald, D Shanique PA Unavailable Unavailable Oswald, D Shanique PA Unavailable Unavailable Oswald, D Shanique PA Unavailable Unavailable Oswald, D Shanique PA Unavailable Unavailable Oswald, D Shanique PA Unavailable Unavailable Oswald, D Shanique PA Unavailable Unavailable Oswald, D Shanique PA Unavailable Unavailable Oswald, D Shanique PA Unavailable Unavailable Oswald, D Shanique PA Unavailable Unavailable Oswald, D Shanique PA Unavailable Unavailable Oswald, D Shanique PA Unavailable Unavailable Oswald, D Shanique PA Unavailable Unavailable Oswald, D Shanique PA Unavailable Unavailable Oswald, D Shanique PA Unavailable Unavailable Oswald, D Shanique PA Unavailable Unavailable Oswald, D Shanique PA Unavailable Unavailable Oswald, D Shanique PA Unavailable Unavailable Oswald, D Shanique PA Unavailable Unavailable Oswald, D Shanique PA Unavailable Unavailable Oswald, D Shanique PA Unavailable Unavailable Oswald, D Shanique PA Unavailable Unavailable Oswald, D Shanique PA Unavailable Unavailable Oswald, D Shanique PA Unavailable Unavailable Mohan, L Karla RPA Unavailable Unavailable Mohan, L Karla RPA Unavailable Unavailable Mohan, L Karla RPA Unavailable Unavailable Mohan, L Karla RPA Unavailable Unavailable Mohan, L Karla RPA Unavailable Unavailable Mohan, L Karla RPA Unavailable Unavailable Mohan, L Karla RPA Unavailable Unavailable Mohan, L Karla RPA Unavailable Unavailable Mohan, L Karla RPA Unavailable Unavailable Mohan, L Karla RPA Unavailable Unavailable Mohan, L Karla RPA Unavailable Unavailable Mohan, L Karla RPA Unavailable Unavailable Mohan, L Karla RPA Unavailable Unavailable Mohan, L Karla RPA Unavailable Unavailable Mohan, L Karla RPA Unavailable Unavailable Mohan, L Karla RPA Unavailable Unavailable Mohan, L Karla RPA Unavailable Unavailable Mohan, L Karla RPA Unavailable Unavailable Mohan, L Karla RPA Unavailable Unavailable Mohan, L Karla RPA Unavailable Unavailable Mhoan, L Karla RPA Unavailable Unavailable Mohan, L Karla RPA Unavailable Unavailable Mohan, L Karla RPA Unavailable Unavailable Mohan, L Karla RPA Unavailable Unavailable Mohan, L Karla RPA Unavailable Unavailable Mohan, L Karla RPA Unavailable Unavailable Mohan, L Karla RPA Unavailable Unavailable Mohan, L Karla RPA Unavailable Unavailable Mohan, L Karla RPA Unavailable Unavailable Mohan, L Karla RPA Unavailable Unavailable Mohan, L Karla RPA Unavailable Unavailable Mohan, L Karla RPA Unavailable Unavailable BESHARA, MAZEN MD Unavailable Unavailable BESHARA, MAZEN MD Unavailable Unavailable BESHARA, MAZEN MD Unavailable Unavailable BESHARA, MAZEN MD Unavailable Unavailable BESHARA, MAZEN MD Unavailable Unavailable BESHARA, MAZEN MD Unavailable Unavailable BESHARA, MAZEN MD Unavailable Unavailable BESHARA, MAZEN MD Unavailable Unavailable BESHARA, MAZEN MD Unavailable Unavailable BESHARA, MAZEN MD Unavailable Unavailable BESHARA, MAZEN MD Unavailable Unavailable BESHARA, MAZEN MD Unavailable Unavailable BESHARA, MAZEN MD Unavailable Unavailable BESHARA, MAZEN MD Unavailable Unavailable BESHARA, MAZEN MD Unavailable Unavailable BESHARA, MAZEN MD Unavailable Unavailable BESHARA, MAZEN MD Unavailable Unavailable BESHARA, MAZEN MD Unavailable Unavailable BESHARA, MAZEN MD Unavailable Unavailable BESHARA, MAZEN MD Unavailable Unavailable BESHARA, MAZEN MD Unavailable Unavailable BESHARA, MAZEN MD Unavailable Unavailable BESHARA, MAZEN MD Unavailable Unavailable BESHARA, MAZEN MD Unavailable Unavailable BESHARA, MAZEN MD Unavailable Unavailable BESHARA, MAZEN MD Unavailable Unavailable BESHARA, MAZEN MD Unavailable Unavailable BESHARA, MAZEN MD Unavailable Unavailable BESHARA, MAZEN MD Unavailable Unavailable BESHARA, MAZEN MD Unavailable Unavailable BESHARA, MAZEN MD Unavailable Unavailable BESHARA, MAZEN MD Unavailable Unavailable BESHARA, MAZEN MD Unavailable Unavailable BESHARA, MAZEN MD Unavailable Unavailable BESHARA, MAZEN MD Unavailable Unavailable BESHARA, MAZEN MD Unavailable Unavailable BESHARA, MAZEN MD Unavailable Unavailable BESHARA, MAZEN MD Unavailable Unavailable BESHARA, MAZEN MD Unavailable Unavailable BESHARA, MAZEN MD Unavailable Unavailable BESHARA, MAZEN MD Unavailable Unavailable BESHARA, MAZEN MD Unavailable Unavailable BESHARA, MAZEN MD Unavailable Unavailable BESHARA, MAZEN MD Unavailable Unavailable BESHARA, MAZEN MD Unavailable Unavailable BESHARA, MAZEN MD Unavailable Unavailable BESHARA, MAZEN MD Unavailable Unavailable BESHARA, MAZEN MD Unavailable Unavailable BESHARA, MAZEN MD Unavailable Unavailable BESHARA, MAZEN MD Unavailable Unavailable BESHARA, MAZEN MD Unavailable Unavailable BESHARA, MAZEN MD Unavailable Unavailable BESHARA, MAZEN MD Unavailable Unavailable BESHARA, MAZEN MD Unavailable Unavailable BESHARA, MAZEN MD Unavailable Unavailable BESHARA, MAZEN MD Unavailable Unavailable BESHARA, MAZEN MD Unavailable Unavailable BESHARA, MAZEN MD Unavailable Unavailable BESHARA, MAZEN MD Unavailable Unavailable BESHARA, MAZEN MD Unavailable Unavailable BESHARA, MAZEN MD Unavailable Unavailable BESHARA, MAZEN MD Unavailable Unavailable BESHARA, MAZEN MD Unavailable Unavailable BESHARA, MAZEN MD Unavailable Unavailable BESHARA, MAZEN MD Unavailable Unavailable Re-disclosure Warning The records that you are about to access may contain information from federally-assisted alcohol or drug abuse programs. If such information is present, then the following federally mandated warning applies: This information has been disclosed to you from records protected by federal confidentiality rules (42 CFR part 2). The federal rules prohibit you from making any further disclosure of this information unless further disclosure is expressly permitted by the written consent of the person to whom it pertains or as otherwise permitted by 42 CFR part 2. A general authorization for the release of medical or other information is NOT sufficient for this purpose. The Federal rules restrict any use of the information to criminally investigate or prosecute any alcohol or drug abuse patient.The records that you are about to access may contain highly sensitive health information, the redisclosure of which is protected by Article 27-F of the [place] [facility] Public Health law. If you continue you may have access to information: Regarding HIV / AIDS; Provided by facilities licensed or operated by the [facility] Office of Mental Health; or Provided by the [facility] Office for People With Developmental Disabilities. If such information is present, then the following [facility] mandated warning applies: This information has been disclosed to you from confidential records which are protected by state law. State law prohibits you from making any further disclosure of this information without the specific written consent of the person to whom it pertains, or as otherwise permitted by law. Any unauthorized further disclosure in violation of state law may result in a fine or senior living sentence or both. A general authorization for the release of medical or other information is NOT sufficient authorization for further disc losure. Allergies and Adverse Reactions Type Description Substance Reaction Status Data Source(s ) Drug allergy QUININE QUININE [facility] Propensity to adverse reactions NARESH NARESH tachycardia [facility] Propensity to adverse reactions PENICILLINS (CLASS) PENICILLINS (CLASS) ANAPHYLAXIS [facility] Propensity to adverse reactions PRAVASTATIN Pravastatin Ac tive [facility] Propensity to adverse reactions ASPIRIN Aluminum aspirin Active [facility] Family History Family Member Name Family Member Gender Family Member Status Date o f Status Description Data Source(s) Unknown Female Problem [facility] ([facility] Encounters Encounter Providers Location Date Indications Data Source(s ) Outpatient Attender: SAHIL Plasencia/Lan/Armand/Re indl 04/10/2021 01:00:00 PM EDT [facility] ([facility] Outpatient Attender: Shanique GRESHAM [place] [facility] 08/2020 03:30:00 PM EDT [facility] ([facility] [place] [address] [address] 03/27/2021 12:00:00 AM EDT [facility] Outpatient Attender: CASTILLO Plasencia/Lan/Armand/ Reindl 03/03/2021 02:45:00 PM EDT [facility] ([facility] Outpatient Attender: KETTY ESCALANTE MD Main Office 02/28/2021 09:15:00 AM EDT [facility] ([facility] Outpatient Attender: Shanique GRESHAM [place] [facility] 10:20:00 AM EDT [facility] ([facility] Outpatient Attender: KETTY ESCALANTE MDConsultant: Santo GRESHAM 02/21/2021 11:22:00 AM EDT - 02/21/2021 12:22:00 PM EDT [facility] [place] [address] [address] 02/20/2021 12:00:00 AM EDT eCW1 ([facility]) [place]patient [address] [address] 02/18/2021 12:00:00 AM EDT eCW1 ([facility]) Outpatient Referrer: PO MACHUCA NP BF-BF 02:03:11 PM EDT - 01/29/2021 03:41:49 PM EDT [facility] Outpatient Attender: PO MACHUCA NP BF-BF 12:00:00 AM EDT - 01/29/2021 03:51:17 PM EDT [facility] Outpatient Attender: Shanique GRESHAM [facility] 08/2020 11:15:00 AM EDT [facility] ([facility] Inpatient Admitter: SHANIQUE RAMÍREZ MDReferrer: ARTURO OCASIO MD [id number] 12/25/2020 11:37:19 AM EDT [facility] Inpatient Attender: SHANIQUE RAMÍREZ MDAdmitter: SHANIQUE PEREZ CHI, MD [id number] 12/25/2020 10:06:00 AM EDT - 12/26/2020 05:14:00 PM EDT [facility] Patient discharged. Outpatient Attender: SHANIQUE RAMÍREZ MDReferrer: SHANIQUE PEREZ CHI, MD [id number] 12/23/2020 09:06:37 AM EDT - 12/23/2020 11:35:43 AM EDT [facility] Outpatient Attender: Ton Mtz MD [id number] 12/10 10:04:42 AM EDT - 12/10/2020 11:59:00 PM EDT [facility] Patient discharged. [facility] 12:00:00 AM EDT - 12/10/2020 02:08:44 PM EDT [facility] Outpatient Attender: [place] [facility] 09:45:00 AM EDT [facility] ([facility] Outpatient Referrer: SHANIQUE RAMÍREZ MD 12/03/2020 03:18:02 PM EDT [facility] Outpatient Attender: CALLIE ENAMORADO MDAd mitter: CALLIE ENAMORADO MDReferrer: CALLIE ENAMORADO MD [id number] 11/27/2020 06:29:00 AM EDT - 11/27/2020 02:51:00 PM EDT [facility] Patient discharged. Outpatient Attender: Renae [facility] 12:00:00 AM EDT - 11/25/2020 03:56:53 PM EDT [facility] Outpatient Attender: Shanique [place] [facility] 08:15:00 AM EDT [facility] ([facility] Outpatient Attender: [facility] [place] [facility] 02:20:00 PM EDT [facility] ([facility] Outpatient Attender: [place]ique [place] [facility] 11:00:00 AM EDT [facility] ([facility] Outpatient Attender: Shanique Ruano PAConsultant: Shanique GRESHAM 10/22/2020 10:59:00 AM EDT - 10/22/2020 11:59:00 AM EDT [facility] Outpatient Attender: DINESH Trivedi/Lan/Armand/Bety 10/08/2020 02:30:00 PM EDT [facility] ([facility] Outpatient Attender: Ajay Plasencia/[place]/Armand/Rein dl 09/23/2020 01:00:00 PM EDT [facility] ([facility] Outpatient Attender: ASHANTI Plasencia/[place]/Armand/Reind l 08/30/2020 03:30:00 PM EDT [facility] ([facility] Outpatient Attender: KETTY ESCALANTE MD Main Office 08/28/2020 11:00:00 AM EDT [facility] ([facility] Outpatient Attender: Shanique Ruano PAConsultant: Shanique GRESHAM 08/22/2020 08:46:00 AM EDT - 08/22/2020 09:46:00 AM EDT [facility] Patient discharged. Outpatient Attender: Karla Plasencia/[place]/Armand/R eindl 07/24/2020 10:15:00 AM EST [facility] ([facility] Outpatient Attender: Karla Mohan RPA 07/23/2020 0 8:32:00 AM EST BILATERAL ARTERIAL LEGS, DISCOLORATION OF TOES [facility] BILATERAL ARTERIAL LEGS, DISCOLORATION O F TOES Outpatient Attender: Karla Plasencia/[place]/Armand/R eindl 07/17/2020 12:30:00 PM EST [facility] Outpatient Attender: DINESH Trivedi/[place]/Armand/Reindl 07/16/2020 08:00:00 AM EST [facility] ([facility] Outpatient Attender: Shanique GRESHAM [place] [facility] 07:45:00 AM EST [facility] ([facility] [place] [address] [address] 06/11/2020 12:00:00 AM EST eCW1 ([facility]) [place] [address] [address] 06/11/2020 12:00:00 AM EST eCW1 ([facility]) Outpatient Attender: Shanique GRESHAM [place] [facility] 04/2020 10:00:00 AM EST [facility] ([facility] Outpatient Attender: DINESH Trivedi/Lan/Armand/Reindl 04/03/2020 11:00:00 AM EDT [facility] ([facility] Outpatient Attender: Henri Overholt PAConsultant: Shanique GRESHAM 03/28/2020 09:14:00 AM EDT - 03/28/2020 10:14:00 AM EDT [facility] Outpatient Attender: Shanique GRESHAM [place] [facility] 09:00:00 AM EDT MED[facility] ([facility] Immunizations Vaccine Date Status Description Data Source(s) COVID-19 VACCINE Moderna 04/26/2021 12:00:00 AM EST completed [facility] Vaccine Series Complete: YESThis Data wa s Submitted to [facility] Via [employer]. New in 2012. IIV4 04/09/2021 03:34:00 PM EDT completed [facility] ([facility] 207 09/04/2020 12:00:00 AM EDT completed <td I D="[id number]">Covid-19 (Moderna)</td><td>09/04/2020, 08/04/2020</td><td></td> [facility] COVID-19 VACCINE Moderna 09/04/2020 12:00:00 AM EDT completed [facility] Vaccine Series Complete: YESThis Data wa s Submitted to [facility] [employer]. COVID-19 VACCINE Moderna 09/04/2020 12:00:00 AM EDT completed [facility] Vaccine Series Complete: YESThis Data wa s Submitted to [facility] Via [employer]. COVID-19 VACCINE, MRNA-1273, LNP-S (MODERNA)/PF 09/04/2020 1 2:00:00 AM EDT completed [facility] 207 08/04/2020 12:00:00 AM EST completed <td I D="[id number]">Covid-19 (Moderna)</td><td>09/04/2020, 08/04/2020</td><td></td> [facility] COVID-19 VACCINE Moderna 08/04/2020 12:00:00 AM EST completed [facility] Vaccine Series Complete: YESThis Data wa s Submitted to [facility] [employer]. COVID-19 VACCINE Moderna 08/04/2020 12:00:00 AM EST completed [facility] Vaccine Series Complete: NOThis Data was Submitted to [facility] [employer]. COVID-19 VACCINE, MRNA-1273, LNP-S (MODERNA)/PF 08/04/2020 1 2:00:00 AM EST completed [facility] New in 2012. IIV4 03/19/2020 09:09:00 AM EDT completed [facility] ([facility] Medications Medication Brand Name Start Date Product Form Dose Route Admi nistrative Instructions Pharmacy Instructions Status Indications Reaction Description Data Source(s) Metronidazole 500 MG Oral Tablet [Flagyl] Flagyl 04/09/2021 12:00 :00 AM EDT ORAL active [facility] ([facility] Phenazopyridine hydrochloride 100 MG Oral Tablet [Pyri dium] Pyridium 100 MG Pyridium 100 MG 03/27/2021 12:00:00 AM EDT active Pyridium 100 MG eCW1 ([facility]) 240 mcg/0.7 mL 03/16/2021 12:00:00 AM EDT syringe 0 INJECT DIRECTED PER STANDING ORDER INJECT DIRECTED PER STANDING ORDER SOLD: 03/16/2021 [facility] Tamsulosin hydrochloride 0.4 MG Oral Capsule Tamsulosi n HCl 0.4 MG Tamsulosin HCl 0.4 MG 02/21/2021 12:00:00 AM EDT 1.0 {capsule} active Tamsulosin HCl 0.4 MG eCW1 ([facility]) Tamsulosin hydrochloride 0.4 MG Oral Capsule Tamsulosi n HCl 0.4 MG Tamsulosin HCl 0.4 MG 02/21/2021 12:00:00 AM EDT 1.0 {capsule} active Tamsulosin HCl 0.4 MG eCW1 ([facility]) Tamsulosin hydrochloride 0.4 MG Oral Capsule Tamsulosi n HCl 0.4 MG Tamsulosin HCl 0.4 MG 02/21/2021 12:00:00 AM EDT 1.0 {capsule} active Tamsulosin HCl 0.4 MG eCW1 ([facility]) Tamsulosin hydrochloride 0.4 MG Oral Capsule Tamsulosi n HCl 0.4 MG Tamsulosin HCl 0.4 MG 02/18/2021 12:00:00 AM EDT 1.0 {capsule} active Tamsulosin HCl 0.4 MG eCW1 ([facility]) Tamsulosin hydrochloride 0.4 MG Oral Capsule Tamsulosi n HCl 0.4 MG Tamsulosin HCl 0.4 MG 02/18/2021 12:00:00 AM EDT 1.0 {capsule} active Tamsulosin HCl 0.4 MG eCW1 ([facility]) Tamsulosin hydrochloride 0.4 MG Oral Capsule Tamsulosi n HCl 0.4 MG Tamsulosin HCl 0.4 MG 02/18/2021 12:00:00 AM EDT 1.0 {capsule} active Tamsulosin HCl 0.4 MG eCW1 ([facility]) glimepiride 4 MG Oral Tablet Glimepiride 02/06/2021 12:00:00 AM EDT ORAL active [facility] ([facility] Hizentra Hizentra 02/05/2021 12:00:00 AM EDT SUBCUTANEOUS active [facility] Nystatin [id number] UNT/ML Oral Suspension Nystatin 02/05/2021 12:00:00 AM EDT ORAL active [facility] Levothyroxine Sodium 0.05 MG Oral Tablet [Synthroid] Synthro id 01/10/2021 12:00:00 AM EDT ORAL active M [facility]ENT ([facility] Levothyroxine Sodium 0.05 MG Oral Tablet levothyroxine (SYNTHROID, LEVOTHROID) 50 MCG tablet levothyroxine (SYNTHROID, LEVOTHROID) 50 MCG tablet 12:00:00 AM EDT 50 ug Oral active Take 50 mcg by mouth daily [facility] glimepiride 2 MG Oral Tablet Glimepiride 01/02/2021 12:00:00 AM EDT ORAL completed [facility] ([facility] glimepiride 2 MG Oral Tablet glimepiride (AMARYL) 2 MG tablet glimepiride (AMARYL) 2 MG tablet 01/02/2021 12:00:00 AM EDT active TAKE ONE TABLET BY MOUTH EVERY DAY 30 MINUTES BEFORE HIS LARGEST MEAL [facility] glimepiride 2 MG Oral Tablet GLIMEPIRIDE 01/02/2021 12:00:00 AM EDT ta blet 30 TAKE ONE TABLET BY MOUTH EVERY DAY 30 MINUTES BEFORE HIS LARGEST MEAL TAKE ONE TABLET BY MOUTH EVERY DAY 30 MINUTES BEFORE HIS LARGEST MEAL SOLD: 01/02/2021 [facility] sitagliptin 100 MG Oral Tablet [Januvia] Januvia 01/01/2021 12:00: 00 AM EDT ORAL completed [facility] ([facility] [facility] Bisacodyl 10 MG Rectal Suppository bisacodyl (DULCOLAX ) suppository 10 mg bisacodyl (DULCOLAX) suppository 10 mg 12/28/2020 09:00:00 AM EDT 10 mg Rectal active 10 mg, Rectal, Daily PRN, constipation, Starting on 12/28/20 at 0900, Post-op
If lactulose not effective, give bisacodyl suppository x 1 per rectum prn starting POD #3.
[facility] Medication administered onsite Sulfamethoxazole 800 MG / Trimethoprim 1 60 MG Oral Tablet sulfamethoxazole- trimethoprim (BACTRIM DS,SEPTRA DS) 800-160 MG per tablet 1 tablet sulfamethoxazole-trimethoprim (BACTRIM DS,SEPTRA DS) 800-160 MG per tablet 1 tablet 12/27/2020 09:00:00 AM EDT 1 {tbl} Oral activ e Urinary Tract Infection 1 tablet, Oral, 3 times week ly (Once per day on Wed), Indications: Urinary Tract Infection, First dose on Wed12/27/20 at 0900 [facility] Urinary Tract Infection Medication administered onsite POLYETHYLENE GLYCOL 3350 142 MG/ML Oral Solution polyethylene glycol (GLYCOLAX) packet 17 g polyethylene glycol (GLYCOLAX) packet 17 g 12/27/2020 07:00:00 AM EDT 17 g Oral active 17 g, Or al, Daily PRN, For constipation, Starting on Wed12/27/20 at 0700, PACU & Post-op
hold for loose stools
[facility] Medication administered onsite latanoprost 0.05 MG/ML Ophthalmic Soluti on latanoprost (XALATAN) 0.005 % ophthalmic solution 1 drop latanoprost (XALATAN) 0.005 % ophthalmic solution 1 drop 12/26/2020 09:00:00 AM EDT 1 [drp] active 1 drop, Both Eyes, Daily, First dose on Lottie 12/26/20 at 0900 [facility] Medication administered onsite Prednisone 20 MG Oral Tablet predniSONE (DELTASONE) ta blet 20 mg predniSONE (DELTASONE) tablet 20 mg 12/26/2020 09:00:00 AM EDT 20 mg Oral active 20 mg, Oral, Daily, First dose on Wed12/26/20 at 0900 [facility] Medication administered onsite Docusate Sodium 100 MG Oral Capsule docusate sodium (C OLACE) capsule 100 mg docusate sodium (COLACE) capsule 100 mg 12/26/2020 09:00:00 AM EDT 100 mg Oral active 100 mg, Oral, 2 times daily, First dose on Wed12/26/20 at 0900, Post-op
Start first POD.
[facility] Medication administered onsite heparin (porcine) injection 5,000 Units [id number] 12/27/19 09:00:00 AM EDT 5000 U Subcutaneous active 5,000 Units , Subcutaneous, Every 12 hours (scheduled), First dose on Wed12/26/20 at 0900, Post-op
If platelet count is less than 100,000 or hematocrit is less than 25, or if there is a 5 point decrea se in hematocrit, do not give the dose and call physician/designee. Hold for INR greater than or equal to 1.7 if receiving Coumadin therapy.
[facility] Medication administered onsite Folic Acid 1 MG Oral Tablet folic acid (FOLVITE) table t 1 mg folic acid (FOLVITE) tablet 1 mg 12/26/2020 09:00:00 AM EDT 1 mg Oral active 1 mg, Oral, Daily, First dose on Lottie 12/26/20 at 0900 [facility] Medication administered onsite Aspirin 81 MG Delayed Release Oral Tablet aspirin EC t ablet 81 mg aspirin EC tablet 81 mg 12/26/2020 09:00:00 AM EDT 81 mg Oral activ e 81 mg, Oral, Daily, First dose on Lottie 12/26/20 at 0900, Post-op
Starting POD # 1 for DAVIDE patient. Hold for platelet count less than 90,000. If OG tube in place, give non-enteric aspirin.
[facility] Medication administered onsite clopidogrel 75 MG Oral Tablet clopidogrel (PLAVIX) tab let 75 mg clopidogrel (PLAVIX) tablet 75 mg 12/26/2020 09:00:00 AM EDT 75 mg Oral active 75 mg, Oral, Daily, First dose on Lottie 12/26/20 at 0900, Post-op
Start first POD.
[facility] Medication administered onsite Insulin Lispro 100 UNT/ML Injectable Chloe ution insulin lispro (HumaLOG) injection 1-4 Units insulin lispro (HumaLOG) injection 1-4 Units 08:00:00 AM EDT U Subcutaneous active 1-4 Units, Subcutaneous, MEALSS, First dose on Lottie 12/26/20 at 0800
2 units Nutritional and Correction Insulin Scale Blood Glucose (mg/dl) <70 start hypoglycemia protocol Glucose &nbsp ; Eats >=50% Eats <50%& amp;nbsp; Eats Nothing (mg/dl) of meal of meal or NPO &am p;nbsp;70- 120 1 units 1 units 0 units 121-170 & amp;nbsp; 2 units 1 units 0 units 171-220 & nbsp; 2 units 1 units 0 units 221-270 &n bsp; 3 units 2 units 1 units 271- 320 3 units 2 units 1 units 321- 370 3 units 2 units 1 units 371-42 0 4 units 3 units 2 units >420 call MD 4 units 3 units 2 units Test glucose within 30 minutes of insulin administration. Administer insulin within 15 minutes (before or after) of the patient starting to eat. For patients that are NPO, use the NPO (correction) scale to cover POC glucose at 08:00, 12:00, 17:00.
[facility] Medication administered onsite clopidogrel 75 MG Oral Tablet clopidogrel (PLAVIX) 75 MG tablet clopidogrel (PLAVIX) 75 MG tablet 12/26/2020 12:00:00 AM EDT 75 mg Oral active Take 1 tablet (75 mg total) by mouth nightly [facility] normal saline flush 0.9 % injection 3 mL [id number] 12/25/2020 09:00:00 PM EDT 3 mL Intravenous active 3 mL , Intravenous, PROTOCOL, First dose on Wed12/25/20 at 2100, Post-op
flush per protocol, D/C Main IV fluid if appropriate
[facility] Medication administered onsite Nystatin 240381 UNT/ML Oral Suspension n ystatin (MYCOSTATIN) 005914 UNIT/ML oral suspension 200,000 Units nystatin (MYCOSTATIN) 740614 UNIT/ML ora l suspension 200,000 Units 12/25/2020 09:00:00 PM EDT 111381 U Oral ac tive 200,000 Units, Oral, 4 times daily, First dose on Wed12/25/20 at 2099
Swish and spit
[facility] Medication administered onsite 12 HR Guaifenesin 600 MG Extended Releas e Oral Tablet guaiFENesin (MUCINEX) 12 hr tablet 1,200 mg guaiFENesin (MUCINEX) 12 hr tablet 1,200 mg 12/25/2020 09:00:00 PM EDT 1200 mg Oral active 1,200 mg, Oral, 2 times daily, First dose on Wed12/25/20 at 2099 [facility] Medication administered onsite montelukast 10 MG Oral Tablet montelukast (SINGULAIR) tablet 10 mg montelukast (SINGULAIR) tablet 10 mg 12/25/2020 09:00:00 PM EDT 10 mg Oral active 10 mg, Oral, Nightly, First dose on Wed12/25/20 at 2099 [facility] Medication administered onsite Famotidine 20 MG Oral Tablet famotidine (PEPCID) table t 40 mg famotidine (PEPCID) tablet 40 mg 12/25/2020 09:00:00 PM EDT 40 mg Oral active 40 mg, Oral, Nightly, First dose on Wed12/25/20 at 2099 [facility] Medication administered onsite Citalopram 20 MG Oral Tablet citalopram (CeleXA) table t 20 mg citalopram (CeleXA) tablet 20 mg 12/25/2020 09:00:00 PM EDT 20 mg Oral active 20 mg, Oral, Nightly, First dose on Wed12/25/20 at 2099 [facility] Medication administered onsite Cefazolin 1000 MG Injection ceFAZolin (ANCEF) injectio n 1 g ceFAZolin (ANCEF) injection 1 g 12/25/2020 08:00:00 PM EDT 1 g Intravenous completed Perioperative Pharmacoprophylaxis 1 g, Intravenous, Ev giovanna 8 hours (relative), First dose on Wed12/25/20 at 1999, For 2 doses, Post-op
Reconstitute with 10 ml sterile water for injection. Administer IV push over 3 minutes. Use within 1 hour of reconstitution
[facility] Perioperative Pharmacoprophylaxis Medication administered onsite formoterol fumarate 0.01 MG/ML Inhalant Solution formoterol (PERFOROMIST) nebulizer solution 20 mcg formoterol (PERFOROMIST) nebulizer solution 20 mcg 12/25/2020 08:00:00 PM EDT 20 ug active 20 mcg, Nebulization, 2 times daily, First dose on Wed12/25/20 at 1999 [facility] Medication administered onsite Budesonide 0.25 MG/ML Inhalant Solution budesonide (PULMICORT) nebulizer solution 0.5 mg budesonide (PULMICORT) nebulizer solution 0.5 mg 12/25 08:00:00 PM EDT 0.5 mg active 0.5 mg, Nebulization, 2 times daily, First dose on Wed12/25/20 at 1999 [facility] Medication administered onsite sodium chloride 0.9% (NS) infusion [id number] 12/25/2020 05:00:00 P M EDT Intravenous completed at 75 mL/hr, Intravenous, Continuous, Starting on Wed12/25/20 at 1700, For 4 hours, Post-op [facility] Medication administered onsite ferrous sulfate 325 MG Oral Tablet ferrous sulfate tab let 325 mg ferrous sulfate tablet 325 mg 12/25/2020 05:00:00 PM EDT 325 mg Oral act erica 325 mg, Oral, 2 times daily with meals, First dose on Wed12/25/20 at 1700
Separate from antacids as far as possible. Take with food, do not crush
[facility] Medication administered onsite ondansetron (ZOFRAN) injection 4 mg [id number] 12/25/2020 04:44:3 3 PM EDT 4 mg Intravenous active 4 mg, In travenous, Every 6 hours PRN, nausea, vomiting, Starting on Wed12/25/20 at 1644, Post-op
If no response in 15-30 minutes then give metoclopramide 10 mg IV x 1 then q6h prn N/V.
[facility] Medication administered onsite acetaminophen (TYLENOL) 325 MG tablet 650 mg 04:44:33 PM EDT 650 mg Oral active [Order 1 S tart] Name: acetaminophen (TYLENOL) 325 MG tablet 650 mg Signed Summary: 650 mg, Oral, Every 4 hours PRN, mild pain (1-3), for temperature > 101. Call MD/PA. May also give for headache., Starting on Wed12/25/20 at 1644, Post-op
"Maximum dose of acetaminophen is 4,000 mg from all sources in 24 hours."
[Order 1 End] [Order 2 Start] Name: acetaminophen (TYLENOL) suppository 650 mg Signed Summary: 650 mg (1 suppository), Rectal, Every 4 hours PRN, mild pain (1-3), for temperature > 101. Call MD/PA. May also give for headache., Starting on Wed12/25/20 at 1644, Post-op [Order 2 End] [facility] Medication administered onsite 2 ML Metoclopramide 5 MG/ML Prefilled Sy ringe metoclopramide (REGLAN) injection 10 mg metoclopramide (REGLAN) injection 10 mg 12/25/2020 04:44:32 PM E DT 10 mg Intravenous active 10 mg, I ntravenous, Every 6 hours PRN, nausea, vomiting, Starting on Wed12/25/20 at 1644, Post-op
Give once if no response to Zofran after 15-30 minutes, then q6h prn N/V.
[facility] Medication administered onsite Ipratropium [place] 0.2 MG/ML Inhalant S olution ipratropium (ATROVENT) 0.02 % nebulizer solution 0.5 mg ipratropium (ATROVENT) 0.02 % nebulizer solution 0.5 mg 12/25/2020 03:00:00 PM EDT 0.5 mg active 0.5 mg, Nebulization, 4 times daily, First dose on Wed12/25/20 at 1500 [facility] Medication administered onsite Albuterol 0.83 MG/ML Inhalant Solution a lbuterol (PROVENTIL) nebulizer solution 2.5 mg albuterol (PROVENTIL) nebulizer solution 2.5 mg 2020 03:00:00 PM EDT 2.5 mg active 2.5 mg, Nebulization, 4 times daily, First dose on Wed12/25/20 at 1500 [facility] Medication administered onsite Nitroglycerin 0.4 MG Sublingual Tablet n itroglycerin (NITROSTAT) SL tablet 0.4 mg nitroglycerin (NITROSTAT) SL tablet 0.4 mg 12/25/2020 02:38:07 P M EDT 0.4 mg Sublingual active 0.4 mg, S ublingual, Every 5 min PRN, chest pain, Starting on Wed12/25/20 at 1438
May administer up to 3 doses per episode.
[facility] Medication administered onsite sodium chloride 0.9% (NS) infusion [id number] 12/25/2020 11:00:00 A M EDT Intravenous active at 75 mL/hr, Intravenous, Continuous, Starting on Wed12/25/20 at 1100, Pre-op [facility] Medication administered onsite Magnesium Chloride 0.95308 MEQ/ML / Pota ssium Chloride 0.0497 MEQ/ML / Sodium Acetate 0.0163 MEQ/ML / Sodium Chloride 0.0899 MEQ/ML / Sodium gluconate 5.02 MG/ML Injectable Solution [Normosol-R] electrolyte-R (NORMOSOL-R/PLASMALYTE-R) solution electrolyte-R (NORMOSOL-R/PLASMALYTE-R) solution 12/25 11:00:00 AM EDT Intravenous active at 1 00 mL/hr, Intravenous, Continuous, Starting on Wed12/25/20 at 1100 [facility] Medication administered onsite Furosemide 20 MG Oral Tablet furosemide (LASIX) 20 MG tablet furosemide (LASIX) 20 MG tablet 12/10/2020 12:00:00 AM EDT 20 mg Oral abort ed Take 1 tablet (20 mg total) by mouth daily [facility] clopidogrel 75 MG Oral Tablet clopidogrel (PLAVIX) 75 MG tablet clopidogrel (PLAVIX) 75 MG tablet 12/10/2020 12:00:00 AM EDT 75 mg Oral aborted Take 1 tablet (75 mg total) by mouth daily [facility] normal saline flush 0.9 % injection 3 mL [id number] 11/27/2020 02:00:00 PM EDT 3 mL Intravenous active 3 mL , Intravenous, Every 8 hours (scheduled), First dose on Wed11/27/20 at 1400, PACU (only)
flush per protocol, D/C Main IV fluid if appropriate
[facility] Medication administered onsite Magnesium Chloride 0.82143 MEQ/ML / Pota ssium Chloride 0.0497 MEQ/ML / Sodium Acetate 0.0163 MEQ/ML / Sodium Chloride 0.0899 MEQ/ML / Sodium gluconate 5.02 MG/ML Injectable Solution [Normosol-R] electrolyte-R (NORMOSOL-R/PLASMALYTE-R) solution electrolyte-R (NORMOSOL-R/PLASMALYTE-R) solution 11/27 01:00:00 PM EDT Intravenous active at 1 00 mL/hr, Intravenous, Continuous, Starting on Wed11/27/20 at 1300, Pre-op
FOR DIABETIC PATIENTS: If blood glucose > 120 mg/dL, start IV of Normosol-R @100 mL/hr.
[facility] Medication administered onsite Hydralazine Hydrochloride 20 MG/ML Injec table Solution hydrALAZINE (APRESOLINE) injection 5 mg hydrALAZINE (APRESOLINE) injection 5 mg 11/27/2020 12: 19:32 PM EDT 5 mg Intravenous active 5 mg , Intravenous, Every 15 min PRN, high blood pressure, Starting on Wed11/27/20 at 1219, For 4 doses, PACU (only)
Give for a SBP >150 and /or a DBP >100
[facility] Medication administered onsite ondansetron (ZOFRAN) injection 4 mg [id number] 11/27/2020 12:19:3 2 PM EDT 4 mg Intravenous active 4 mg, In travenous, As needed, nausea, vomiting, Starting on Wed11/27/20 at 1219, For 1 dose, PACU (only)
If not given in last 4 hours
[facility] Medication administered onsite Albuterol 0.83 MG/ML Inhalant Solution a lbuterol (PROVENTIL) nebulizer solution 2.5 mg albuterol (PROVENTIL) nebulizer solution 2.5 mg 2020 12:19:32 PM EDT 2.5 mg active 2.5 mg, Nebulization, Once as needed, shortness of breath, Starting on Wed11/27/20 at 1219, For 1 dose, PACU (only) [facility] Medication administered onsite iopamidol (ISOVUE-370) 76 % [id number] 11/27/2020 12:02:05 PM EDT active As needed, Starting on Wed11/27/20 at 1202, Intra-Proc edure [facility] Medication administered onsite lidocaine 1 % injection [id number] 11/27/2020 11:50:34 AM EDT active As needed, Starting on Wed at 1150, Intra-Procedure [facility] Medication administered onsite fentaNYL Citrate (PF) (SUBLIMAZE) injection [id number] 11/27/2020 11:48:08 AM EDT active As neede d, Starting on Wed11/27/20 at 1148, Intra-Procedure [facility] Medication administered onsite 2 ML Midazolam 1 MG/ML Injection midazolam (VERSED) in jection midazolam (VERSED) injection 11/27/2020 11:47:56 AM EDT active As needed, Starting on Wed11/27/20 at 1147, Intra-Procedure [facility] Medication administered onsite Nitroglycerin 0.4 MG Sublingual Tablet n itroglycerin (NITROSTAT) 0.4 MG SL tablet nitroglycerin (NITROSTAT) 0.4 MG SL tablet 11/25/2020 12:00:00 A M EDT 0.[address] 1 t ablet (0.4 mg total) under the tongue every 5 (five) minutes as needed for chest pain [facility] Methylprednisolone 125 MG Injection [Solu-Medrol] METH YLPREDNISOLONE SOD SUCC/PF 11/21/2020 12:00:00 AM EDT recon soln 1 INJECT IN TRAMUSCULARLY IMMEDIATELY INJECT INTRAMUSCULARLY IMMEDIATELY SOLD: 11/21/2020 [facility] Methylprednisolone 125 MG Injection [Solu-Medrol] METH YLPREDNISOLONE SOD SUCC/PF 11/20/2020 12:00:00 AM EDT recon soln 1 INJECT IN TRAMUSCULARLY IMMEDIATELY INJECT INTRAMUSCULARLY IMMEDIATELY SOLD: 11/20/2020 [facility] Methylprednisolone 125 MG Injection [Solu-Medrol] METH YLPREDNISOLONE SOD SUCC/PF 11/20/2020 12:00:00 AM EDT recon soln 1 INJECT IN TRAMUSCULARLY IMMEDIATELY INJECT INTRAMUSCULARLY IMMEDIATELY SOLD: 11/20/2020 [facility] Methylprednisolone 125 MG Injection [Solu-Medrol] METH YLPREDNISOLONE SOD SUCC/PF 11/20/2020 12:00:00 AM EDT recon soln 1 INJECT IN TRAMUSCULARLY IMMEDIATELY INJECT INTRAMUSCULARLY IMMEDIATELY SOLD: 11/22/2020 [facility] Mupirocin 0.02 MG/MG Topical Ointment Mupirocin 08/30/2020 12:00:00 AM EDT active [facility] ([facility], ) Budesonide 0.25 MG/ML Inhalant Solution Budesonide 08/12/2020 12: 00:00 AM EST completed [facility] ([facility], ) Injection (SC)/(Im) 07/19/2020 12:00:00 AM EST completed [facility] ([facility] Medication administered onsite Injection (SC)/(Im) 07/19/2020 12:00:00 AM EST completed [facility] ([facility] Medication administered onsite Solu-Medrol Solu-Medrol 07/18/2020 12:00:00 AM EST active [facility] ([facility] Injection (SC)/(Im) 07/18/2020 12:00:00 AM EST completed [facility] ([facility] Medication administered onsite Injection (SC)/(Im) 07/17/2020 12:00:00 AM EST completed [facility] ([facility] Medication administered onsite Methylprednisolone 125 MG Injection [Solu-Medrol] METH YLPREDNISOLONE SODIUM SUCCINATE/PF 07/17/2020 12:00:00 AM EST recon soln 3 I NJECT INTRAMUSCULARLY IMMEDIATELY INJECT INTRAMUSCULARLY IMMEDIATELY SOLD: 07/17/2020 [facility] Injection (SC)/(Im) 06/21/2020 12:00:00 AM EST completed [facility] ([facility] Medication administered onsite Injection (SC)/(Im) 06/20/2020 12:00:00 AM EST completed [facility] ([facility] Medication administered onsite Injection (SC)/(Im) 06/19/2020 12:00:00 AM EST completed [facility] ([facility] Medication administered onsite Solu-Medrol Solu-Medrol 06/19/2020 12:00:00 AM EST active [facility] ([facility] Metformin hydrochloride 500 MG Oral Tablet Metformin HCL 05/27/2020 12:00:00 AM EST ORAL active [facility] ([facility] 5 % 04/17/2020 12:00:00 AM EST adhesive patch,medicate d 30 APPLY ONE PATCH TOPICALLY TO THE SKIN DIRECTED, 12 HOURS ON AND THEN 12 HOURS OFF APPLY ONE PATCH TOPICALLY TO THE SKIN DIRECTED, 12 HOURS ON AND THEN 12 HOURS OFF SOLD: 04/18/2020 [facility] Lidocaine Hydrochloride 0.05 MG/MG Transdermal Patch [Lidode rm] Lidoderm 04/17/2020 12:00:00 AM EST active [facility] ([facility] Albuterol 0.83 MG/ML Inhalant Solution Albuterol Sulfate 1 06/12/2019 12:00:00 AM EST completed [facility] ([facility], ) Spiriva Respimat Spiriva Respimat 04/03/2020 12:00:00 AM EDT RESPIRATORY completed [facility] ([facility], ) Zinc 03/19/2020 12:00:00 AM EDT ORAL active [facility] ([facility] clopidogrel 75 MG Oral Tablet clopidogrel (PLAVIX) 75 MG tablet clopidogrel (PLAVIX) 75 MG tablet 12/04/2019 12:00:00 AM EDT 75 mg Oral aborted Take 1 tablet (75 mg total) by mouth daily [facility] Nitroglycerin 0.4 MG Sublingual Tablet n itroglycerin (NITROSTAT) 0.4 MG SL tablet nitroglycerin (NITROSTAT) 0.4 MG SL tablet 11/22/2018 12:00:00 A M EDT 0.[address] 1 t ablet (0.4 mg total) under the tongue every 5 (five) minutes as needed for chest pain [facility] gabapentin 100 MG Oral Capsule gabapentin (NEURONTIN) 100 MG capsule gabapentin (NEURONTIN) 100 MG capsule 10/27/2017 12:00:00 AM EDT 100 mg Oral aborted Take 100 mg by mouth 3 (three) times a d ay [facility] 24 HR Diltiazem Hydrochloride 240 MG Ext ended Release Oral Capsule diltiazem (CARDIZEM CD) 240 MG 24 hr capsule diltiazem (CARDIZEM CD) 240 MG 24 hr capsule 09/28/2017 12:00:00 AM EDT aborted take 1 capsule by mouth once daily (REPLACES PRAZOSIN) [facility] Sulfamethoxazole 800 MG / Trimethoprim 1 60 MG Oral Tablet sulfamethoxazole- trimethoprim (BACTRIM DS,SEPTRA DS) 800-160 MG per tablet sulfamethoxazole- trimethoprim (BACTRIM DS,SEPTRA DS) 800-160 MG per tablet 08/27/2016 12:00:00 AM EDT aborted TAKE ONE TABLET BY MOUTH ONCE A DAY ON Wednesday AND WEDNESDAY [facility] ibandronic acid 150 MG Oral Tablet ibandronate (BONIVA ) 150 MG tablet ibandronate (BONIVA) 150 MG tablet 150 mg Oral abo rted Take 150 mg by mouth every 30 (thirty) days [facility] empagliflozin 25 MG Oral Tablet Empagliflozin 25 MG TA BS Empagliflozin 25 MG TABS 25 mg Oral aborted Take 25 mg by mout h daily [facility] Immune Globulin, Human, (HIZENTRA) 10 GM/50ML SOLN [id number] Subcutaneous aborted Inject under the skin once a week [facility] Clotrimazole 10 MG Oral Lozenge clotrimazole (MYCELEX) 10 MG parisa clotrimazole (MYCELEX) 10 MG parisa 10 mg Oral aborted Take 10 mg by mouth 5 (five) times a day [facility] carvedilol 6.25 MG Oral Tablet carvedilol (COREG) 6.25 MG tablet carvedilol (COREG) 6.25 MG tablet 6.25 mg Oral aborted Take 6.25 mg by mouth 2 (two) times a day [facility] Calcium Citrate 950 MG Oral Tablet calcium citrate (CA LCITRATE) 950 MG tablet calcium citrate (CALCITRATE) 950 MG tablet 1 {tbl} Oral aborted Take 1 tablet by mouth daily [facility] pitavastatin 2 MG Oral Tablet pitavastatin (LIVALO) 2 MG TABS pitavastatin (LIVALO) 2 MG TABS 2 mg Oral aborted Take 2 mg by mouth nightly [facility] Ranitidine 300 MG Oral Tablet ranitidine (ZANTAC) 300 MG tablet ranitidine (ZANTAC) 300 MG tablet 300 mg Oral aborted Take 300 mg by mouth nightly [facility] metaxalone 800 MG Oral Tablet metaxalone (SKELAXIN) 80 0 MG tablet metaxalone (SKELAXIN) 800 MG tablet 800 mg Oral aborted Take 800 mg by mouth 3 (three) times a day as needed for pain [facility] 12 HR Guaifenesin 600 MG Extended Releas e Oral Tablet guaiFENesin (MUCINEX) 600 MG 12 hr tablet guaiFENesin (MUCINEX) 600 MG 12 hr tablet 1200 m g Oral aborted Take 1,200 mg by mouth 2 (two) t imes a day [facility] Tiotropium [place] Monohydrate (SPIRIVA RESPIMAT IN) drug or medicati on Inhalation aborted Inhale daily [facility] torsemide 20 MG Oral Tablet torsemide (DEMADEX) 20 MG tablet torsemide (DEMADEX) 20 MG tablet 10 mg Oral aborted Take 10 mg by mouth daily [facility] 30 ACTUAT aclidinium bromide 0.4 MG/ACTU AT Dry Powder Inhaler aclidinium bromide (TUDORZA) 400 MCG/ACT AEPB inhaler aclidinium bromide (TUDORZA) 400 MCG/ACT AEPB inhaler 1 {puff} Inhalation aborted Inhale 1 puff 2 (two) times a day [facility] glimepiride 4 MG Oral Tablet glimepiride (AMARYL) 4 MG tablet glimepiride (AMARYL) 4 MG tablet 1 {tbl} Oral aborted Take 1 tablet by mouth 2 (two) times a day [facility] formoterol fumarate 0.01 MG/ML Inhalant Solution formoterol (PERFOROMIST) 20 MCG/2ML nebulizer solution formoterol (PERFOROMIST) 20 MCG/2ML nebu lizer solution aborted 1 neb twice a d ay dx:J44.9 [facility] Insurance Providers Payer name Policy type / Coverage type Policy ID Covered constitution party ID Covered constitution party's relationship to macias Policy Macias Plan Information [id number] [facility] [id number] [place] [id number] [facility] [id number] SP [id number] [place] [id number] [facility] [id number] [facility] [id number] 1 [id number] [facility] [id number] [employer] [id number] [place] [id number] [employer] [id number] [place] [id number] [employer] [phone]) [id number] MEDICARE [id number] SP [id number] A [employer] [id number] [place] [id number] [employer] [id number] [place] [id number] MEDICARE MEDICARE [id number] Self MINOO VELASQUEZ III ME DICARE [place] [id number] Medicare Part B [facility] [id number] ASSIGNED MEDICARE (81) [id number] 1 [id number] MEDICARE [id number] SP [id number] E74 [facility] [id number] WI2 [id number] UMR [id number] Spo [id number] UMR [id number] Spo [id number] UMR [id number] UMR [id number] UMR [id number] Spo [id number] UMR [facility] [id number] WI2 [id number] R [facility] [id number] WI2 [id number] COMMERCIAL GENERIC [id number] Teresa 1 [id number] COMMERCIAL GENERIC [id number] Teresa 1 [id number] Medicare Part B Medicare Primary [id number] Self [id number] MEDICARE [id number] A ANSI-Commercial [id number] ANSI-Commercial [id number] ANSI-Medicare Part B [id number] [facility] Commercial [id number] Family Dependent [id number] Medicare Part B Medicare Primary [id number] Self [id number] r Commercial [id number] Self [id number] Medicare Part B Medicare Primary [id number] Self [id number] [employer] [id number] WI2 [id number] MEDICARE C [id number] S [id number] A MEDICARE [id number] Teresa [id number] A UMR O [id number] P [id number] [employer] PPO O [id number] S [id number] MEDICARE PART A -O/P [id number] 18 [id number] [employer]-O/P [id number] 01 [id number] MEDICARE -O/P [id number] 18 [id number] MEDICARE [id number] SP [id number] E74 [employer] [id number] Spo [id number] [employer] PPO O [id number] S [id number] POM[facility] POMCO [id number] Self E [place] [employer]OM[employer] POMCO [id number] Spo [id number] MEDICARE [id number] Teresa [id number] A [employer]OM[employer] [id number] WI2 [id number] [employer] Medigap Part B [id number] Family Dependent [place] Primary [id number] Self SELF PAY 2 UNAVAILABLE 1 [place]NA[place]A BLE [employer] PPO 2 [id number] 2 [id number] [employer] PPO S UNAVAILABLE [id number] P [place] BLE MEDICARE P UNAVAILABLE [id number] P UNA[place] BLE [id number] [facility] O [id number] S [id number] R [facility] [id number] WI2 [id number] R [facility] [id number] SP [id number] UMR -O/P [id number] 01 [id number] MEDICARE PART A -O/P [id number] 18 [id number] MEDICARE [id number] Teresa [id number] E74 MEDICARE [id number] [employer] [id number] Spo [id number] MEDICARE C [id number] S [id number] E74 UMR O [id number] S [id number] NGS [place] O [id number] S [id number] UMR -O [id number] 01 [id number] MEDICARE -RECURRING [id number] 18 [id number] Commercial 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 [id number] [employer] [id number] Commercial Ins urance Co. [id number] Medicare [id number] Medicare Part [id number] Umr/Uhc/[employer] Medigap Part B [id number] Family Dependent [id number] Medicare Natl Gov't Servi Medicare Primary [id number] Self [id number] MEDICARE [id number] SP [id number] E74 ANSI-Medicare Part B [id number] ANSI-Commercial [id number] ANSI-Commercial [id number] MEDICARE PI PI UMR PI PI Umr Commercial [id number] Family Dependent [id number] Medicare Part B Medicare Primary [id number] Self [id number] NORIDIAN JE PART B C [id number] S [id number] ANSI-Commercial [id number] ANSI-Medicare Part B [id number] ANSI-Commercial [id number] [facility] Commercial [id number] Family Dependent [id number] Problems, Conditions, and Diagnoses Code Display Name Description Problem Type Effective Dates Data Source(s) 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, unspec ified Common variable immunodeficiency, unspecified Diagnosis 02/21/2021 11:22:00 AM EDT [facility] Z95.2 Presence of prosthetic heart valve Presence of p rosthetic heart valve Diagnosis 01/29/2021 02:03:11 PM EDT [facility] Z95.3 Presence of xenogenic heart valve Presence of xe nogenic heart valve Diagnosis 01/29/2021 02:03:11 PM EDT [facility] I35.0 Nonrheumatic aortic (valve) stenosis Nonrheumati c aortic (valve) stenosis Diagnosis 12/25/2020 10:06:00 AM EDT [facility] 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 Atherosclerotic heart disease of sw[place] Diagnosis 11/27/2020 06:29:00 AM EDT [facility] R06.02 Shortness of breath Shortness of breath Diagnosis 0 11/27/2020 06:29:00 AM EDT [facility] I50.20 Unspecified systolic (congestive) heart failure Unspecified systolic (congestive) heart Diagnosis 11/27/2020 06:29:00 AM EDT [facility] I20.8 Other forms of angina pectoris Other forms of angina p ectoris Diagnosis 11/27/2020 06:29:00 AM EDT [facility] E07.9 Disorder of thyroid, unspecified Disorder of thy roid, unspecified Diagnosis 11/25/2020 02:35:37 PM EDT [facility] I25.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 Atherosclerotic heart disease of sw[place] Diagnosis 11/25/2020 02:35:37 PM EDT [facility] [id number] Fracture of one rib, left side, initial encounter for closed fracture Fracture of one rib, left side, initial encounter for closed fracture Diagnosis 10/22/2020 10:59:00 AM EDT [facility] N281 Cyst of kidney, acquired Cyst of kidney, acquired Diag nosis 08/22/2020 08:46:00 AM EDT [facility] I2510 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 Diagnosis 08/22/2020 08:46:00 AM EDT [facility] R0602 Shortness of breath Shortness of breath Diagnosis 0 08/22/2020 08:46:00 AM EDT [facility] N40.1 [id number] Benign prostatic hyperplasia wit h lower urinary tract symptoms Problem 02/21/2021 12:00:00 AM EDT eCW1 ([facility]) Z95.2 S/P TAVR (transcatheter aortic valve rep lacement) S/P TAVR (transcatheter aortic valve replacement) [id number] 01/29/2021 12:00:00 AM EDT [facility] [id number] Hypothyroidism Hypothyroidism Problem 01/09/2021 12:00: 00 AM EDT [facility] ([facility] 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 ) Note: 4.7cm 08/27/20 E78.5 Hyperlipidemia Hyperlipidemia Problem 06/19/2020 12:00: 00 AM EST [facility] ([facility] [id number] ALT (SGPT) level raised ALT (SGPT) level raised Proble m 03/19/2020 12:00:00 AM EDT [facility] ([facility] ) Surgeries/Procedures Procedure Description Date Indications Data Source(s) OFFICE OUTPATIENT VISIT 25 MINUTES 04/10/2021 12:00:00 AM EDT [facility] ([facility] ) OFFICE OUTPATIENT VISIT 25 MINUTES 04/09/2021 12:00:00 AM EDT [facility] ([facility] Spirometry 03/03/2021 12:00:00 AM EDT M EDENT ([facility], ) OFFICE OUTPATIENT VISIT 25 MINUTES 03/03/2021 12:00:00 AM EDT [facility] ([facility], ) OFFICE OUTPATIENT VISIT 25 MINUTES 02/28/2021 12:00:00 AM EDT [facility] ([facility] OFFICE OUTPATIENT VISIT 15 MINUTES 02/24/2021 12:00:00 AM EDT [facility] ([facility] ECG ROUTINE ECG W/LEAST 12 LDS W/I&R <td>POCT AMB EKG</td><td>Routine</td><td>01/29/2021 4:06 PM EDT</td><td> S/P TAVR (transcatheter aortic valve replacement)</td><td> </td> 01/29/2021 04:06:00 PM EDT S/P TAVR (transcatheter aortic valve replacement) [facility] S/P TAVR (transcatheter aortic valve rep lacement) OFFICE OUTPATIENT VISIT 25 MINUTES 01/07/2021 12:00:00 AM EDT [facility] ([facility] GLUC BLD GLUC MNTR DEV CLEARED FDA SPEC HOME USE <td>P OCT GLUCOSE</td><td>Routine</td><td>12/26/2020 11:59 AM EDT</td><td></td><td> </td> 12/26/2020 11:59:00 AM EDT [facility] GLUC BLD GLUC MNTR DEV CLEARED FDA SPEC HOME USE <td>P OCT GLUCOSE</td><td>Routine</td><td>12/26/2020 8:32 AM EDT</td><td></td><td> </td> 12/26/2020 08:32:00 AM EDT [facility] ECHO TTHRC R-T 2D W/WOM-MODE COMPL SPEC&COLR DOP <td>E CHOCARDIOGRAM TRANSTHORACIC</td><td>Pending Discharge</td><td>12/26/2020 8:01 AM EDT</td><td></td><td> </td> 12/26/2020 08:01:55 AM EDT [facility] BLOOD COUNT COMPLETE AUTOMATED <td>CBC</td><td>Timed</ td><td>12/26/2020 5:55 AM EDT</td><td></td><td> </td> 12/26/2020 05:55:00 AM EDT [facility] BASIC METABOLIC PANEL CALCIUM TOTAL <td>BASIC METABOLI C PANEL</td><td>Timed</td><td>12/26/2020 5:55 AM EDT</td><td></td><td> </td> 12/26/2020 05:55:00 AM EDT [facility] GLUC BLD GLUC MNTR DEV CLEARED FDA SPEC HOME USE <td>P OCT GLUCOSE</td><td>Routine</td><td>12/25/2020 8:03 PM EDT</td><td></td><td> </td> 12/25/2020 08:03:00 PM EDT [facility] XR CHEST PORTABLE <td>XR CHEST PORTABLE</td><t d>STAT</td><td>12/25/2020 3:09 PM EDT</td><td></td><td> </td> 12/25/2020 03:09:47 PM EDT [facility] PROTHROMBIN TIME <td>PROTIME-INR</td><td>STAT </td><td>12/25/2020 2:53 PM EDT</td><td></td><td> </td> 12/25/2020 02:53:00 PM EDT [facility] BLOOD COUNT COMPLETE AUTOMATED <td>CBC</td><td>STAT</t d><td>12/25/2020 2:53 PM EDT</td><td></td><td> </td> 12/25/2020 02:53:00 PM EDT [facility] MAGNESIUM <td>MAGNESIUM</td><td>STAT</ td><td>12/25/2020 2:53 PM EDT</td><td></td><td> </td> 12/25/2020 02:53:00 PM EDT [facility] HEMOGLOBIN GLYCOSYLATED A1C <td>HEMOGLOBIN A1C</td><td>Routine</td><td>12/25/2020 2:53 PM EDT</td><td></td><td> </td> 12/25/2020 02:53:00 PM EDT [facility] BASIC METABOLIC PANEL CALCIUM TOTAL <td>BASIC METABOLI C PANEL</td><td>STAT</td><td>12/25/2020 2:53 PM EDT</td><td></td><td> </td> 12/25/2020 02:53:00 PM EDT [facility] ECG ROUTINE ECG W/LEAST 12 LDS TRCG ONLY W/O I&R <td>E CG 12- LEAD</td><td>Routine</td><td>12/25/2020 2:50 PM EDT</td><td></td><td></td> 12/25/2020 02:50:32 PM EDT [facility] GLUC BLD GLUC MNTR DEV CLEARED FDA SPEC HOME USE <td>P OCT GLUCOSE</td><td>Routine</td><td>12/25/2020 2:40 PM EDT</td><td></td><td> </td> 12/25/2020 02:40:00 PM EDT [facility] TRANSCATHETER AORTIC VALVE IMPLANT FEMORAL <td>TRANSCA THETER AORTIC VALVE IMPLANT FEMORAL</td><td>Routine</td><td>12/25/2020 2:08 PM EDT</td><td> Nonrheumatic aortic valve stenosis</td><td></td> 12/25/2020 02:08:37 PM EDT Nonrheumatic aortic valve stenosis [facility] Nonrheumatic aortic valve stenosis POC ACT <td>POC ACT</td><td>Routine< /td><td>12/25/2020 1:36 PM EDT</td><td></td><td> </td> 12/25/2020 01:36:00 PM EDT [facility] POC ACT <td>POC ACT</td><td>Routine< /td><td>12/25/2020 1:21 PM EDT</td><td></td><td> </td> 12/25/2020 01:21:00 PM EDT [facility] POC ARTERIAL BLOOD GAS W LYTES <td>POC ARTERIAL BLOOD GAS W LYTES</td><td>Routine</td><td>12/25/2020 1:21 PM EDT</td><td></td><td> </td> 12/25/2020 01:21:00 PM EDT [facility] ECG TRANSESOPHAG R-T 2D W/PRB IMG ACQUISJ I&R <td>ECHO CARDIOGRAM TRANSESOPHAGEAL</td><td>Routine</td><td>12/25/2020 11:37 AM EDT</td><td></td><td> </td> 12/25/2020 11:37:19 AM EDT [facility] GLUC BLD GLUC MNTR DEV CLEARED FDA SPEC HOME USE <td>P OCT GLUCOSE</td><td>Routine</td><td>12/25/2020 10:41 AM EDT</td><td></td><td> </td> 12/25/2020 10:41:00 AM EDT [facility] BLOOD TYPING ABO <td>PREPARE RBC</td><td>Rout ine</td><td>12/25/2020 12:01 AM EDT</td><td></td><td></td> 12/25/2020 12:01:00 AM EDT [facility] URNLS DIP STICK/TABLET RGNT AUTO W/O MICROSCOPY <td>UR INALYSIS W/O MICRO</td><td>Routine</td><td>12/23/2020 11:35 AM EDT</td><td> Nonrheumatic aortic valve stenosis</td><td> </td> 12/23/2020 11:35:00 AM EDT Nonrheumatic aortic valve stenosis [facility] Nonrheumatic aortic valve stenosis ECG ROUTINE ECG W/LEAST 12 LDS TRCG ONLY W/O I&R <td>E CG 12- LEAD</td><td>Routine</td><td>12/23/2020 10:54 AM EDT</td><td> Nonrheumatic aortic valve stenosis</td><td></td> 12/23/2020 10:54:27 AM EDT Nonrheumatic aortic valve stenosis [facility] Nonrheumatic aortic valve stenosis ROOM TEMP AB SCREEN <td>ROOM TEMP AB SCREEN</td> <td>Routine</td><td>12/23/2020 10:35 AM EDT</td><td> Nonrheumatic aortic valve stenosis</td><td> </td> 12/23/2020 10:35:00 AM EDT Nonrheumatic aortic valve stenosis [facility] Nonrheumatic aortic valve stenosis BILIRUBIN UNCONJ (INDIRECT) <td>BILIRUBIN UNCONJ (INDIRECT)</td><td>Routine</td><td>12/23/2020 10:35 AM EDT</td><td></td><td> </td> 12/23/2020 10:35:00 AM EDT [facility] NT PRO BNP <td>NT PRO BNP</td><td>Routi ne</td><td>12/23/2020 10:35 AM EDT</td><td> Nonrheumatic aortic valve stenosis</td><td> </td> 12/23/2020 10:35:00 AM EDT Nonrheumatic aortic valve stenosis [facility] Nonrheumatic aortic valve stenosis THROMBOPLASTIN TIME PARTIAL PLASMA/WHOLE BLOOD <td>APTT</td><td>Routine</td><td>12/23/2020 10:35 AM EDT</td><td> Nonrheumatic aortic valve stenosis</td><td> </td> 12/23/2020 10:35:00 AM EDT Nonrheumatic aortic valve stenosis [facility] Nonrheumatic aortic valve stenosis PROTHROMBIN TIME <td>PROTIME-INR</td><td>Rout ine</td><td>12/23/2020 10:35 AM EDT</td><td> Nonrheumatic aortic valve stenosis</td><td> </td> 12/23/2020 10:35:00 AM EDT Nonrheumatic aortic valve stenosis [facility] Nonrheumatic aortic valve stenosis BLOOD COUNT COMPLETE AUTO&AUTO DIFRNTL WBC COUNT <td>C BC AND DIFFERENTIAL</td><td>Routine</td><td>12/23/2020 10:35 AM EDT</td><td> Nonrheumatic aortic valve stenosis</td><td> </td> 12/23/2020 10:35:00 AM EDT Nonrheumatic aortic valve stenosis [facility] Nonrheumatic aortic valve stenosis BLOOD TYPING ABO <td>TYPE AND SCREEN</td><td> Routine</td><td>12/23/2020 10:35 AM EDT</td><td> Nonrheumatic aortic valve stenosis</td><td> </td> 12/23/2020 10:35:00 AM EDT Nonrheumatic aortic valve stenosis [facility] Nonrheumatic aortic valve stenosis HEMOGLOBIN GLYCOSYLATED A1C <td>HEMOGLOBIN A1C</td><td>Routine</td><td>12/23/2020 10:35 AM EDT</td><td> Nonrheumatic aortic valve stenosis</td><td> </td> 12/23/2020 10:35:00 AM EDT Nonrheumatic aortic valve stenosis [facility] Nonrheumatic aortic valve stenosis BILIRUBIN DIRECT <td>BILIRUBIN, DIRECT</td><t d>Routine</td><td>12/23/2020 10:35 AM EDT</td><td></td><td> </td> 12/23/2020 10:35:00 AM EDT [facility] COMPREHENSIVE METABOLIC PANEL <td>COMPREHENSIVE METABO LIC PANEL</td><td>Routine</td><td>12/23/2020 10:35 AM EDT</td><td> Nonrheumatic aortic valve stenosis</td><td> </td> 12/23/2020 10:35:00 AM EDT Nonrheumatic aortic valve stenosis [facility] Nonrheumatic aortic valve stenosis OFFICE OUTPATIENT VISIT 25 MINUTES 12/04/2020 12:00:00 AM EDT [facility] ([facility] DUPLEX SCAN EXTRACRANIAL ART COMPL BI STUDY <td>US CAR OTID BILATERAL</td><td>Pending Discharge</td><td>11/27/2020 1:55 PM EDT</td><td></td><td> </td> 11/27/2020 01:55:18 PM EDT [facility] BEDSIDE PULMONARY FUNCTION TEST <td>BEDSIDE PULMONARY FUNCTION TEST</td><td>Routine</td><td>11/27/2020 12:34 PM EDT</td><td></td><td></td> 11/27/2020 12:34:45 PM EDT [facility] CARDIAC CATHETERIZATION <td>CARDIAC CATHETERIZATION</td><td>Routine</td><td>11/27/2020 12:07 PM EDT</td><td> Aortic valve stenosis, etiology of cardiac valve disease unspecified Shortness of breath Stable angina Atherosclerosis of [place] coronary artery of [place] heart, angina presence unspecified Systolic heart failure, unspecified HF chronicity</td><td> </td> 11/27/2020 12:07:52 PM EDT Systolic heart failure, unspecified HF c hronicityAtherosclerosis of [place] coronary artery of [place] heart, angina presence unspecifiedStable anginaShortness of breathAortic valve stenosis, etiology of cardiac valve disease unspecified [facility] Systolic heart failure, unspecified HF c hronicity Atherosclerosis of [place] coronary arter y of [place] heart, angina presence unspecified Stable angina Shortness of breath Aortic valve stenosis, etiology of cardi ac valve disease unspecified DOP ECHOCARD COLOR FLOW VELOCITY MAPPING <td>TRANSESOP HAGEAL ECHO DOPPLER COLOR FLOW AND PULSED WAVE</td><td>Routine</td><td>11/27/2020 10:03 AM EDT</td><td></td><td> </td> 11/27/2020 10:03:51 AM EDT [facility] COVID/FLU AB/RSV PCR <td>COVID/FLU AB/RSV PCR</td ><td>STAT</td><td>11/27/2020 6:56 AM EDT</td><td></td><td> </td> 11/27/2020 06:56:00 AM EDT [facility] BLOOD COUNT COMPLETE AUTOMATED <td>CBC</td><td>STAT</t d><td>11/27/2020 6:56 AM EDT</td><td></td><td> </td> 11/27/2020 06:56:00 AM EDT [facility] BASIC METABOLIC PANEL CALCIUM TOTAL <td>BASIC METABOLI C PANEL</td><td>STAT</td><td>11/27/2020 6:56 AM EDT</td><td></td><td> </td> 11/27/2020 06:56:00 AM EDT [facility] ECG ROUTINE ECG W/LEAST 12 LDS TRCG ONLY W/O I&R <td>E CG 12- LEAD</td><td>Routine</td><td>11/27/2020 6:55 AM EDT</td><td></td><td></td> 11/27/2020 06:55:07 AM EDT [facility] ECG ROUTINE ECG W/LEAST 12 LDS W/I&R <td>POCT AMB EKG</td><td>Routine</td><td>11/25/2020 4:46 PM EDT</td><td> Coronary artery disease involving sw[place] heart, angina presence unspecified, unspecified vessel or lesion type Atherosclerosis of [place] coronary artery of [place] heart with unstable angina pectoris Disease of thyroid gland Stable angina pectoris</td><td> </td> 11/25/2020 04:46:00 PM EDT Stable angina pectorisDisease of thyroid glandAtherosclerosis of sw[place] coronary artery of [place] heart with unstable angina pectorisCoronary artery disease involving [place] heart, angina presence unspecified, unspecified vessel or lesion type [facility] Stable angina pectoris Disease of thyroid gland Atherosclerosis of [place] coronary arter y of [place] heart with unstable angina pectoris Coronary artery disease involving [place] heart, angina presence unspecified, unspecified vessel or lesion type OFFICE OUTPATIENT VISIT 15 MINUTES 11/21/2020 12:00:00 AM EDT [facility] ([facility] OFFICE OUTPATIENT VISIT 15 MINUTES 11/20/2020 12:00:00 AM EDT [facility] ([facility] OFFICE OUTPATIENT VISIT 25 MINUTES 11/19/2020 12:00:00 AM EDT [facility] ([facility] Spirometry 10/08/2020 12:00:00 AM EDT M EDENT ([facility]) OFFICE OUTPATIENT VISIT 25 MINUTES 10/08/2020 12:00:00 AM EDT [facility] ([facility]) OFFICE OUTPATIENT VISIT 15 MINUTES 09/23/2020 12:00:00 AM EDT [facility] ([facility]) OFFICE OUTPATIENT VISIT 15 MINUTES 08/30/2020 12:00:00 AM EDT [facility] ([facility]) OFFICE OUTPATIENT VISIT 15 MINUTES 08/28/2020 12:00:00 AM EDT [facility] ([facility] OFFICE OUTPATIENT VISIT 15 MINUTES 07/24/2020 12:00:00 AM EST [facility] ([facility]) OFFICE OUTPATIENT VISIT 15 MINUTES 07/17/2020 12:00:00 AM EST [facility] ([facility]) Injection Fee 07/16/2020 12:00:00 AM EST [facility] ([facility]) OFFICE OUTPATIENT VISIT 25 MINUTES 07/16/2020 12:00:00 AM EST [facility] ([facility]) Results ID Date Data Source [id number] 05/01/2021 10:40:00 AM EST [facility] Name Value Range Interpretation Code Description Data Ximnea rce(s) Supporting Document(s) SARS coronavirus 2 RNA [Presence] in Res piratory specimen by GLORIA with probe detection POSITIVE [facility] This lab was ordered by [facility] a nd reported by [facility]. ID Date Data Source [id number] 05/01/2021 10:40:00 AM EST [facility] ([facility] Name Value Range Interpretation Code Description Data Ximena rce(s) Supporting Document(s) White Blood Count 15.1 10 4.0-10.0 Above high normal [facility] ([facility] Red Blood Count 4.66 10 4.30-6.10 Normal (applies to non-numeric results) [facility] ([facility] Hemoglobin 14.8 g/dL 13.5-17.5 Normal (applies to non-numeric resul ts) [facility] ([facility] Hematocrit 43.9 % 42.0-52.0 Normal (applies to non-numeric resul ts) [facility] ([facility] Mean Corpuscular Hemoglobin 31.8 pg 27.0-33.0 Norm al (applies to non-numeric results) [facility] ([facility] ) Mean Corpuscular Volume 94.2 fl 80.0-96.0 Normal ( applies to non-numeric results) [facility] ([facility] ) Red Cell Distribution Width 13.6 % 11.5-14.5 Norm al (applies to non-numeric results) [facility] ([facility] ) Mean Corpuscular HGB Conc 33.7 g/dL 32.0-36.5 Normal (applies to non-numeric results) [facility] ([facility] ) Neutrophils % 89.2 % 36.0-66.0 Above high normal [facility] ([facility] Platelet Count, Automated 200 10 150-450 Normal (applies to non-numeric results) [facility] ([facility] ) Pacific % 5.3 % 2.0-8.0 Normal (applies to non-numeric resul ts) [facility] ([facility] Lymph % 3.8 % 24.0-44.0 Below low normal [facility] ( [facility] Baso % 0.3 % 0.0-1.0 Normal (applies to non-numeric resul ts) [facility] ([facility] Eos % 0.4 % 0.0-3.0 Normal (applies to non-numeric resul ts) [facility] ([facility] Nucleated Red Blood Cell % 0.0 % 0-0 Normal (applies to n on-numeric results) [facility] ([facility] Immature Granulocyte % 1.0 % 0-3.0 Normal (applies to non-n umeric results) [facility] ([facility] Neutrophils # 13.4 10 1.5-8.5 Above high normal [facility] ([facility] Lymph # 0.6 10 1.5-5.0 Below low normal [facility] ( [facility] Eos # 0.1 10 0.0-0.5 Normal (applies to non-numeric resul ts) [facility] ([facility] Pacific # 0.8 10 0.0-0.8 Normal (applies to non-numeric resul ts) [facility] ([facility] Baso # 0.1 10 0.0-0.2 Normal (applies to non-numeric resul ts) [facility] ([facility] ID Date Data Source [id number] 05/01/2021 10:40:00 AM EST [facility] ([facility] Name Value Range Interpretation Code Description Data Ximena rce(s) Supporting Document(s) Procalcitonin [Mass/volume] in Serum or Plasma Laboratory test r esult Normal (applies to non-numeric results) [facility] ([facility] <content>SEPSIS INTERPRETATION OF RESULT S</content>
<content><0.5 ng/ml Low risk for progression to severe</content>
<content>sepsis and or septic shock.</content>
<content>0.50-2.00 ng/ml Sepsis should be considered.</content>
<content>>2.00 ng/ml High risk for progression to severe</content>
<content>sepsis and or septic shock.</content>
<content></content>
<content>LOWER RESPIRATORY TRACT INFECTION REFERENCE INTERVAL</content>
<content><0.1 ng/ml Antibiotics strongly discouraged.</content>
<content>0.1-0.25 ng/ml Antibiotics are discouraged.</content>
<content>0.26-0.5 ng/ml Antibiotics are encouraged.</content>
<content>>0.5 ng/ml Antibiotics are strongly encouraged.</content>
<content></content> ID Date Data Source [id number] 05/01/2021 10:40:00 AM EST [facility] ([facility] Name Value Range Interpretation Code Description Data Ximena rce(s) Supporting Document(s) Influenza A Amplification Laboratory test result Normal (applies to non- numeric results) [facility] ([facility] ) Negative results do not preclude influen za or RSV virus infection and should not be used as the sole basis for treatment or other patient management decisions. Influenza B Amplification Laboratory test result Normal (applies to non- numeric results) [facility] ([facility] ) Negative results do not preclude influen za or RSV virus infection and should not be used as the sole basis for treatment or other patient management decisions. RSV Amplification Laboratory test result Normal (applies to non-numeric results) [facility] ([facility] ) Negative results do not preclude influen za or RSV virus infection and should not be used as the sole basis for treatment or other patient management decisions. Laboratory test finding (navigational concept) Laboratory test r esult Abnormal (applies to non-numeric results) [facility] ([facility] ASSAY INFORMATION: Real Time RT-PCR test . DISCLAIMER: Testing was performed using the [employer] SARS-CoV-2 test. This test was developed and its performance characteristics determined by [employer] This test has not been FDA cleared [...] the authorization is terminated or revoked sooner. ID Date Data Source [id number] 05/01/2021 10:40:00 AM EST [facility] ([facility] Name Value Range Interpretation Code Description Data Ximena rce(s) Supporting Document(s) Lactate [Mass/volume] in Serum or Plasma 1.5 mmol/L 0.4-2.0 Normal (applies to non-numeric results) [facility] ([facility]) Y/N query for Sepsis Lactate Rule: Y ID Date Data Source [id number] 05/01/2021 10:39:00 AM EST [facility] ([facility] Name Value Range Interpretation Code Description Data Ximena rce(s) Supporting Document(s) CPK Creatine Phosphokinase 65 U/L 39-308 Ester l (applies to non-numeric results) [facility] ([facility] ) CK-MB Value Mass 2.2 ng/mL Normal (applies to non-numeric results) [facility] ([facility] MB/CK Relative Index 3.38 Normal (applies to non-num santa results) [facility] ([facility] <content>DIAGNOSIS CRITERIA</content>
<content>MMB ng/ml Relative Index (RI)</content>
<content>NON-AMI < or = 5 N/A</content>
<content>CUEVAS ZONE > 5 < or = 4</content>
<content>AMI > 5 > 4</content>
<content></content> Laboratory test finding (navigational concept) 53.0 ng/L 3 .0-78 Normal (applies to non-numeric results) [facility] ([facility] ID Date Data Source [id number] 05/01/2021 10:39:00 AM EST [facility] ([facility] Name Value Range Interpretation Code Description Data Ximena rce(s) Supporting Document(s) Fibrinogen [Mass/volume] in Platelet poor plasma by Coagulat ion assay 566 mg/dL 268-480 Above high normal [facility] ([facility] ID Date Data Source [id number] 05/01/2021 10:39:00 AM EST [facility] ([facility] Name Value Range Interpretation Code Description Data Ximena rce(s) Supporting Document(s) Prothrombin Time 12.8 s 12.7-14.5 Normal (applies to non-numeric results) [facility] ([facility] Partial Thromboplastin Time 26.3 s 25.9-37.0 Norm al (applies to non-numeric results) [facility] ([facility] ) Inr 0.93 Normal (applies to non-numeric resul ts) [facility] ([facility] THERAPUTIC HUMAN INR VALUES INDICATIONS NORMAL RANGES PROPHYLAXIS/TREATMENT OF: VENOUS THROMBOSIS 2.0-3.0 PULMONARY EMBOLISM 2.0-3.0 PREVENTION OF SYSTEMIC EMBOLISM FROM: TISSUE HEART VALVES 2.0-3.0 ACUTE MYOCARDIAL INFARCTION 2.0-3.0 VALVULAR HEART DISEASE 2.0-3.0 ATRIAL FIBRILLATION 2.0-3.0 MECHANICAL VALVES(HIGH RISK) 2.5-3.5 RECURRENT MYOCARDIAL INFARCTION 2.5-3.5 ID Date Data Source [id number] 05/01/2021 10:39:00 AM EST [facility] ([facility] Name Value Range Interpretation Code Description Data Ximena rce(s) Supporting Document(s) Venous PH 7.391 units 7.330-7.430 Normal (applies to non-numeric res ults) [facility] ([facility] Venous Partial Pressure Co2 43.4 mmHg 38.0-50.0 Norm al (applies to non-numeric results) [facility] ([facility] ) Venous Total Co2 27.1 meq/L 24.0-28.0 Normal (applies to non-numeric results) [facility] ([facility] Venous Hco3 25.7 meq/L 23.0-27.0 Normal (applies to non-numeric resu lts) [facility] ([facility] Venous Partial Pressure O2 47.6 mmHg 30.0-50.0 Ester l (applies to non-numeric results) [facility] ([facility] ) Venous Standard Hco3 24.6 meq/L Normal (applies to non-num santa results) [facility] ([facility] Venous Base Excess 0.5 Normal (applies to non-numer ic results) [facility] ([facility] Venous O2 Saturation 83.3 % 60.0-80.0 Above high normal [facility] ([facility] ID Date Data Source [id number] 05/01/2021 10:39:00 AM EST [facility] Name Value Range Interpretation Code Description Data Ximena rce(s) Supporting Document(s) Lactate dehydrogenase [Enzymatic activity/volume] in Serum o r Plasma 290 U/L 87-241 Above high normal [facility] ([facility] Magnesium [Mass/volume] in Serum or Plasma 2.0 mg/dL 1.8-2 .4 Normal (applies to non-numeric results) [facility] ([facility]) Thyrotropin [Units/volume] in Serum or Plasma 1.050 uIU/ML 0. 358-3.740 Normal (applies to non-numeric results) [facility] ([facility] Natriuretic peptide.B prohormone N-Terminal [Mass/volu me] in Serum or Plasma 453 pg/mL Above high normal [facility] ([facility] Ferritin [Mass/volume] in Serum or Plasma 80 ng/mL 26-388 Normal (applies to non-numeric results) [facility] ([facility]) C reactive protein [Mass/volume] in Serum or Plasma by High sensitivity method 2.55 mg/dL 0.00-0.30 Above high normal [facility] ([facility] ID Date Data Source [id number] 05/01/2021 10:39:00 AM EST [facility] ([facility] Name Value Range Interpretation Code Description Data Ximena rce(s) Supporting Document(s) Blood Urea Nitrogen 11 mg/dL 7-18 Normal (applies to non-nume laila results) [facility] ([facility] Glucose, Fasting 79 mg/dL 70-100 Normal (applies to non-numeric results) [facility] ([facility] Glomerular Filtration Rate Laboratory test result Normal (applies to non- numeric results) [facility] ([facility] ) <content>Units are mL/min/1.73 m2</content>
<content></content>
<content>Chronic Kidney Disease Staging per NKF:</content>
<content></content>
<content>Stage I & II GFR >=60 Normal to Mildly Decreased</content>
<content>Stage III GFR 30- 59 Moderately Decreased</content>
<content>Stage IV GFR 15-29 Severely Decreased</content>
<content>Stage V GFR <15 Very Little GFR Left</content>
<content>ESRD GFR <15 on INSURANCE MANAGER</content>
<content></content> Creatinine For GFR 1.00 mg/dL 0.70-1.30 Normal (applies to non -numeric results) [facility] ([facility] Sodium Level 136 meq/L 136-145 Normal (applies to non-numeric res ults) [facility] ([facility] Potassium Serum 3.8 meq/L 3.5-5.1 Normal (applies to non-numeric results) [facility] ([facility] Chloride Level 101 meq/L 98-107 Normal (applies to non-numeric r esults) [facility] ([facility] Anion Gap 7 meq/L 8-16 Below low normal [facility] ( [facility] Carbon Dioxide Level 28 meq/L 21-32 Normal (applies to non-num santa results) [facility] ([facility] Calcium Level 10.2 mg/dL 8.8-10.2 Normal (applies to non-numeric re sults) [facility] ([facility] ID Date Data Source [id number] 05/01/2021 10:39:00 AM EST [facility] ([facility] Name Value Range Interpretation Code Description Data Ximena rce(s) Supporting Document(s) Ast/Sgot 23 U/L 7-37 Normal (applies to non-numeric resul ts) [facility] ([facility] Alt/SGPT 33 U/L 12-78 Normal (applies to non-numeric resul ts) [facility] ([facility] Alkaline Phosphatase 79 U/L 45-117 Normal (applies to non-num santa results) [facility] ([facility] Bilirubin,Direct Laboratory test result 0.0-0.2 Normal ( applies to non-numeric results) [facility] ([facility] ) Bilirubin,Total 0.4 mg/dL 0.2-1.0 Normal (applies to non-numeric results) [facility] ([facility] Total Protein 7.7 GM/DL 6.4-8.2 Normal (applies to non-numeric re sults) [facility] ([facility] Albumin/Globulin Ratio 0.9 Normal (applies to non-n umeric results) [facility] ([facility] Albumin 3.6 GM/DL 3.2-5.2 Normal (applies to non-numeric resul ts) [facility] ([facility] ID Date Data Source [id number] 02/24/2021 02:42:00 PM EDT [facility] ([facility] Name Value Range Interpretation Code Description Data Ximena rce(s) Supporting Document(s) Thyrotropin [Units/volume] in Serum or Plasma 2.449 ulU/mL 0.60-4.8 [facility] ([facility] ID Date Data Source [id number] 02/21/2021 11:28:00 AM EDT [facility] ([facility] Name Value Range Interpretation Code Description Data Ximena rce(s) Supporting Document(s) IgG [Mass/volume] in Serum or Plasma 955 mg/dL [id number] [facility] ([facility]) ID Date Data Source [id number] 02/21/2021 11:28:00 AM EDT [facility] ([facility]) Name Value Range Interpretation Code Description Data Ximena rce(s) Supporting Document(s) Laboratory test finding (navigational concept) Laboratory test result [facility] ([facility]) COMPREHENSIVE METABOLIC PANEL Laboratory test finding (navigational concept) 4.3 meq/L 3.6-5.0 [facility] ([facility] [place]) Laboratory test finding (navigational concept) 136 meq/L 134-153 [facility] ([facility]) Laboratory test finding (navigational concept) 99 meq/L 98-107 [facility] ([facility]) Laboratory test finding (navigational concept) 126 mg/dL 7 0-99 Above high normal [facility] ([facility] ) Laboratory test finding (navigational concept) 22 mg/dL 7-21 Above high normal [facility] ([facility]) Laboratory test finding (navigational concept) 23 meq/L 22-30 [facility] ([facility]) Laboratory test finding (navigational concept) 28 8-27 Above high normal [facility] ([facility]) Laboratory test finding (navigational concept) 0.8 mg/dL 0.7-1.5 [facility] ([facility]) Laboratory test finding (navigational concept) 7.0 g/dL 6.3-8.2 [facility] ([facility]) Laboratory test finding (navigational concept) 4.7 g/dL 3.9-5.0 [facility] ([facility]) Laboratory test finding (navigational concept) 2.3 GM/DL 2 .4-3.2 Below low normal [facility] ([facility] ) Laboratory test finding (navigational concept) 2.0 0.8-2.0 [facility] ([facility]) Laboratory test finding (navigational concept) 9.9 mg/dL 8.4-10.2 [facility] ([facility]) Laboratory test finding (navigational concept) 71 U/L 38-126 [facility] ([facility] [place]) Laboratory test finding (navigational concept) Laboratory test resu lt 0.2-1.3 [facility] ([facility]) Laboratory test finding (navigational concept) 26 U/L 5-40 [facility] ([facility]) Laboratory test finding (navigational concept) 22 U/L 7-56 [facility] ([facility]) Laboratory test finding (navigational concept) 14.0 mmol/L 8.0-16.0 [facility] ([facility]) Laboratory test finding (navigational concept) 70 yrs [facility] ([facility]) Laboratory test finding (navigational concept) Laboratory test result [facility] ([facility] [place]) Male GFR Interprentation 20-49 yrs >60 mL/min Normal 50-59 yrs >56 mL/min Normal 60-69 yrs >49 mL/min Normal 70-79yrs >42 mL/min Normal 80 and above >35 mL/min Normal Female GFR Interpretation 20-39 yrs >60 mL/min Normal 40-49 yrs >58 mL/min Normal 50-59 yrs >51 mL/min Normal 60-69 yrs >45 mL/min Normal 70-79 yrs >39 mL/min Normal 80 and above >32 mL/min Normal Laboratory test finding (navigational concept) Laboratory test result [facility] ([facility]) ID Date Data Source [id number] 02/21/2021 11:28:00 AM EDT [facility] ([facility] [place]) Name Value Range Interpretation Code Description Data Ximena rce(s) Supporting Document(s) Laboratory test finding (navigational concept) Laboratory test result [facility] ([facility]) COMPLETE BLOOD COUNT Laboratory test finding (navigational concept) 17.4 10^3/uL 4 .2-11.0 Above high normal [facility] ([facility] ) Laboratory test finding (navigational concept) 13.7 g/dL 1 4.0-16.0 Below low normal [facility] ([facility] ) Laboratory test finding (navigational concept) 4.26 10^6/uL 4 .50-6.30 Below low normal [facility] ([facility] ) Laboratory test finding (navigational concept) 96.5 fL 8 0.0-94.0 Above high normal [facility] ([facility] ) Laboratory test finding (navigational concept) 32.2 pg 27.0-34.0 [facility] ([facility]) Laboratory test finding (navigational concept) 41.1 % 41.0-51.0 [facility] ([facility]) Laboratory test finding (navigational concept) 247 10^3/uL 150-450 [facility] ([facility]) Laboratory test finding (navigational concept) 33.3 g/dL 31.0-36.0 [facility] ([facility]) Laboratory test finding (navigational concept) 13.4 % 11.5-14.8 [facility] ([facility]) Laboratory test finding (navigational concept) 8.6 fL 7.4-10.4 [facility] ([facility] Laboratory test finding (navigational concept) 89.8 % 3 7.0-80.0 Above high normal [facility] ([facility] ) Laboratory test finding (navigational concept) 5.5 % 25.0-40 .0 Below low normal [facility] ([facility]) Laboratory test finding (navigational concept) 2.9 % 3.0-8.0 Below low normal [facility] ([facility] Laboratory test finding (navigational concept) 0.4 % 0.0-7.0 [facility] ([facility] Laboratory test finding (navigational concept) 0.4 % 0.0-2.0 [facility] ([facility] Laboratory test finding (navigational concept) 1.0 % 0.0-0.0 Above high normal [facility] ([facility]) Laboratory test finding (navigational concept) 15.59 10^3/uL 2 .00-6.90 Above high normal [facility] ([facility] Laboratory test finding (navigational concept) 0.0 % 0.0-0.0 [facility] ([facility] Laboratory test finding (navigational concept) 0.96 10^3/uL 0.60-3.40 [facility] ([facility] Laboratory test finding (navigational concept) 0.51 10^3/uL 0.00-0.90 [facility] ([facility] Laboratory test finding (navigational concept) 0.07 10^3/uL 0.00-0.70 [facility] ([facility] Laboratory test finding (navigational concept) 0.07 10^3/uL 0.00-0.20 [facility] ([facility] Laboratory test finding (navigational concept) Laboratory test result [facility] ([facility] Laboratory test finding (navigational concept) 0.00 10^3/uL 0.00-0.00 [facility] ([facility] Laboratory test finding (navigational concept) 0.18 10^3/uL 0 .00-0.10 Above high normal [facility] ([facility] Laboratory test finding (navigational concept) Laboratory test result [facility] ([facility]) ID Date Data Source [id number] 02/22/2021 07:21:00 AM EDT [facility] Name Value Range Interpretation Code Description Data Ximena rce(s) Supporting Document(s) IgG [Mass/volume] in Serum or Plasma 955 mg/dL [id number] [facility] ID Date Data Source [id number] 02/21/2021 12:08:00 PM EDT [facility] Name Value Range Interpretation Code Description Data Ximena rce(s) Supporting Document(s) COMPREHENSIVE METABOLIC PANEL [facility] COMPREHENSIVE METABOLIC PANEL Sodium [Moles/volume] in Serum or Plasma 136 mEq/L 134 - 153 [facility] Potassium [Moles/volume] in Serum or Plasma 4.3 mEq/L 3.6 - 5.0 [facility] Chloride [Moles/volume] in Serum or Plasma 99 mEq/L 98 - 107 [facility] Carbon dioxide, total [Moles/volume] in Serum or Plasma 23 MEQ/L 22 - 30 [facility] Glucose [Mass/volume] in Serum or Plasma 126 MG/DL 70 - 99 H [facility] BUN 22 [facility] 7 [facility] Creatinine [Mass/volume] in Serum or Plasma 0.8 MG/DL 0.7 - 1.5 [facility] BUN/CREAT 28 8 - 27 [facility] Protein [Mass/volume] in Serum or Plasma 7.0 G/DL 6.3 - 8.2 [facility] Albumin [Mass/volume] in Serum or Plasma 4.7 G/DL 3.9 - 5.0 [facility] Globulin [Mass/volume] in Serum by calculation 2.3 GM/DL 2.4 - 3.2 L [facility] A/G RATIO 2.0 0.8 - 2.0 [facility] al Calcium [Mass/volume] in Serum or Plasma 9.9 MG/DL 8.4 - 10.2 [facility] Bilirubin.total [Mass/volume] in Serum or Plasma <0.7 MG/DL 0.2 - 1.3 [facility] Alkaline phosphatase [Enzymatic activity/volume] in Serum or Plasma 71 U/L 38 - 126 [facility] Aspartate aminotransferase [Enzymatic activity/volume] in Serum or Plasma 26 U/L 5 - 40 [facility] Alanine aminotransferase [Enzymatic activity/volume] in Seru m or Plasma 22 U/L 7 - 56 [facility] Anion gap 3 in Serum or Plasma 14.0 mmol/L 8.0 - 16.0 [facility] AGE 70 yrs [facility] al NON-AA GFR >60 mL/min [facility] ital AFR AMER GFR >60 mL/min [facility] Male GFR In terprentation 20-49 yrs >60 mL/min Normal 50-59 yrs >56 mL/min Normal 60-69 yrs >49 mL/min Normal 70-79yrs >42 mL/min Normal 80 and above >35 mL/min Normal Female GFR Interpretation 20-39 yrs >60 mL/min Normal 40-49 yrs >58 mL/min Normal 50-59 yrs >51 mL/min Normal 60-69 yrs >45 mL/min Normal 70-79 yrs >39 mL/min Normal 80 and above >32 mL/min Normal ID Date Data Source [id number] 02/21/2021 11:36:00 AM EDT [facility] Name Value Range Interpretation Code Description Data Ximena rce(s) Supporting Document(s) CBC W/AUTOMATED DIFF [facility] COMPLETE BLOOD COUNT Leukocytes [#/volume] in Blood by Automated count 17.4 10^3/uL 4.2 - 11.0 H [facility] Erythrocytes [#/volume] in Blood by Automated count 4.26 10^6/uL 4. 50 - 6.30 L [facility] Hemoglobin [Mass/volume] in Blood 13.7 g/dL 14.0 - 16.0 L [facility] Hematocrit [Volume Fraction] of Blood by Automated count 41.1 % 4 1.0 - 51.0 [facility] Erythrocyte mean corpuscular volume [Entitic volume] by Auto mated count 96.5 fL 80.0 - 94.0 H [facility] Erythrocyte mean corpuscular hemoglobin [Entitic mass] by Automated count 32.2 pg 27.0 - 34.0 [facility] Erythrocyte mean corpuscular hemoglobin concentration [Mass/volume] by Automated count 33.3 g/dL 31.0 - 36.0 [facility] Erythrocyte distribution width [Ratio] by Automated count 13.4 % 11.5 - 14.8 [facility] Platelets [#/volume] in Blood by Automated count 247 10^3/uL 150 - 45 0 [facility] Platelet mean volume [Entitic volume] in Blood by Automated count 8.6 fL 7.4 - 10.4 [facility] Neutrophils/100 leukocytes in Blood by Automated count 89.8 % 37. 0 - 80.0 H [facility] Lymphocytes/100 leukocytes in Blood by Manual count 5.5 % 25.0 - 40.0 L [facility] Monocytes/100 leukocytes in Blood by Automated count 2.9 % 3.0 - 8.0 L [facility] Eosinophils/100 leukocytes in Blood by Automated count 0.4 % 0.0 - 7.0 [facility] Basophils/100 leukocytes in Blood by Automated count 0.4 % 0.0 - 2.0 [facility] %IG 1.0 % 0.0 - 0.0 H [facility] al %NRBC 0.0 % 0.0 - 0.0 [facility] al Neutrophils [#/volume] in Blood by Automated count 15.59 10^3/uL 2. 00 - 6.90 H [facility] Lymphocytes [#/volume] in Blood by Automated count 0.96 10^3/uL 0.60 - 3.40 [facility] Monocytes [#/volume] in Blood by Automated count 0.51 10^3/uL 0.00 - 0.90 [facility] Eosinophils [#/volume] in Blood by Automated count 0.07 10^3/uL 0.00 - 0.70 [facility] Basophils [#/volume] in Blood by Automated count 0.07 10^3/uL 0.00 - 0.20 [facility] #IG 0.18 10^3/uL 0.00 - 0.10 H [facility] #NRBC 0.00 10^3/uL 0.00 - 0.00 [facility]ital MANUAL DIFF NOT INDICATED [facility] RBC MORPH NOT INDICATED [facility] ID Date Data Source [id number] 02/21/2021 11:28:00 AM EDT [facility] [facility] Name Value Range Interpretation Code Description Data Ximena rce(s) Supporting Document(s) Comprehensive Metabo Laboratory test result MEDENT ([facility] COMPREHENSIVE METABOLIC PANEL Sodium 136 meq/L 134-153 MEDENT ([facility] Potassium 4.3 meq/L 3.6-5.0 MEDENT ([facility] Chloride 99 meq/L 98-107 [facility] Co2 23 meq/L 22-30 MEDENT ([facility] Glucose 126 mg/dL 70-99 Above high normal MEDENT ([facility] BUN 22 mg/dL 7-21 Above high normal MEDENT ([facility] Creatinine 0.8 mg/dL 0.7-1.5 MEDENT ([facility] BUN/Creat 28 8-27 Above high normal MEDENT ([facility] Albumin 4.7 g/dL 3.9-5.0 MEDENT ([facility] Total Protein 7.0 g/dL 6.3-8.2 MEDENT ([facility] Calcium 9.9 mg/dL 8.4-10.2 MEDENT ([facility] Globulin 2.3 GM/DL 2.4-3.2 Below low normal MEDENT ( [facility] A/G Ratio 2.0 0.8-2.0 MEDENT ([facility] Alkaline Phos 71 U/L 38-126 MEDENT ([facility] Total Bili Laboratory test result 0.2-1.3 ME DENT ([facility] Sgot/Ast 26 U/L 5-40 MEDENT ([facility] Anion Gap 14.0 mmol/L 8.0-16.0 MEDENT ([facility] SGPT/Alt 22 U/L 7-56 MEDENT ([facility] Afr Amer GFR Laboratory test result MEDENT ([facility] Male GFR Interprentation 20-49 yrs >60 mL/min Normal 50-59 yrs >56 mL/min Normal 60-69 yrs >49 mL/min Normal 70-79yrs >42 mL/min Normal 80 and above >35 mL/min Normal Female GFR Interpretation 20-39 yrs >60 mL/min Normal 40-49 yrs >58 mL/min Normal 50-59 yrs >51 mL/min Normal 60-69 yrs >45 mL/min Normal 70-79 yrs >39 mL/min Normal 80 and above >32 mL/min Normal Age 70 yrs MEDENT ([facility] Non-Aa GFR Laboratory test result ME DENT ([facility] ID Date Data Source [id number] 02/21/2021 11:28:00 AM EDT MEDENT ([facility] Name Value Range Interpretation Code Description Data Ximena rce(s) Supporting Document(s) IgG [Mass/volume] in Serum or Plasma 955 mg/dL [id number] MEDENT ([facility] ID Date Data Source [id number] 02/21/2021 11:28:00 AM EDT MEDENT ([facility] Name Value Range Interpretation Code Description Data Ximena rce(s) Supporting Document(s) CBC W/Automated Diff Laboratory test result MEDENT ([facility] COMPLETE BLOOD COUNT RBC 4.26 10^6/uL 4.50-6.30 Below low normal [facility] ([facility] WBC 17.4 10^3/uL 4.2-11.0 Above high normal MEDEN T ([facility] Hematocrit 41.1 % 41.0-51.0 MEDENT ([facility] Hemoglobin 13.7 g/dL 14.0-16.0 Below low normal MEDENT ( [facility] MCV 96.5 fL 80.0-94.0 Above high normal MEDENT ([facility] MCH 32.2 pg 27.0-34.0 [facility] ([facility] MCHC 33.3 g/dL 31.0-36.0 [facility] RDW 13.4 % 11.5-14.8 MEDENT ([facility] Platelets 247 10^3/uL 150-450 MEDENT ([facility] Neut 89.8 % 37.0-80.0 Above high normal MEDENT ([facility] Lymph 5.5 % 25.0-40.0 Below low normal MEDENT ( [facility] MPV 8.6 fL 7.4-10.4 MEDENT ([facility] Eos 0.4 % 0.0-7.0 MEDENT ([facility] Pacific 2.9 % 3.0-8.0 Below low normal [facility] ([facility] Baso 0.4 % 0.0-2.0 [facility] ([facility] %Ig 1.0 % 0.0-0.0 Above high normal [facility] ([facility] %NRBC 0.0 % 0.0-0.0 [facility] ([facility] #Neut 15.59 10^3/uL 2.00-6.90 Above high normal MEDE NT ([facility] #Lymph 0.96 10^3/uL 0.60-3.40 MEDENT ([facility] #Pacific 0.51 10^3/uL 0.00-0.90 MEDENT ([facility] #Eos 0.07 10^3/uL 0.00-0.70 MEDENT ([facility] #Baso 0.07 10^3/uL 0.00-0.20 MEDENT ([facility] #Ig 0.18 10^3/uL 0.00-0.10 Above high normal MEDEN T ([facility] #NRBC 0.00 10^3/uL 0.00-0.00 MEDENT ([facility] Manual Diff Laboratory test result M EDBARBARA ([facility] RBC Morph Laboratory test result ME CARLOS ALBERTO ([facility] ID Date Data Source [id number] 02/19/2021 10:19:05 AM EDT [facility] Name Value Range Interpretation Code Description Data Ximena rce(s) Supporting Document(s) &PDF [facility] MPRSIz7lInKXFwIm95/JCMfyLGKqj3MkZBhdLWn5ZJjcPHZvD8StcEsxBCAJGmLwAxMDUX0ODSFMQXoD hdG [file] [facility]+Hy848Lsg+58ak6my5gUnqkDiHRAP/gXdXw/EXU [file] ICAgICAgICAgICAgICAgICAgICAgICAgICAgICAgIC AgICAgICAgICAgICAgICAgICAgICAgICANCiAgICAgICAgICAgICAgICAgICAgICAgICAgICAgICAgIC AgICAgICAgICAgICAgICAgICAgICAgICAgICAgICAgICAgICAgICAgICAgICAgICAgICAgICAgICAgIC AgICAgICANCiAgICAgICAgICAgICAgICAgICAgICAg ICAgICAgICAgICAgICAgICAgICAgICAgICAgICAgICAgICAgICAgICAgICAgICAgICAgICAgICAgICAg ICAgICAgICAgICAgICAgICANCiAgICAgICAgICAgICAgICAgICAgICAgICAgICAgICAgICAgICAgICAg ICAgICAgICAgICAgICAgICAgICAgICAgICAgICAgIC AgICAgICAgICAgICAgICAgICAgICAgICAgICANCiAgICAgICAgICAgICAgICAgICAgICAgICAgICAgIC AgICAgICAgICAgICAgICAgICAgICAgICAgICAgICAgICAgICAgICAgICAgICAgICAgICAgICAgICAgIC AgICAgICAgICANCiAgICAgICAgICAgICAgICAgICAg ICAgICAgICAgICAgICAgICAgICAgICAgICAgICAgICAgICAgICAgICAgICAgICAgICAgICAgICAgICAg ICAgICAgICAgICAgICAgICAgICANCiAgICAgICAgICAgICAgICAgICAgICAgICAgICAgICAgICAgICAg ICAgICAgICAgICAgICAgICAgICAgICAgICAgICAgIC AgICAgICAgICAgICAgICAgICAgICAgICAgICAgICANCiAgICAgICAgICAgICAgICAgICAgICAgICAgIC AgICAgICAgICAgICAgICAgICAgICAgICAgICAgICAgICAgICAgICAgICAgICAgICAgICAgICAgICAgIC AgICAgICAgICAgICANCiAgICAgICAgICAgICAgICAg ICAgICAgICAgICAgICAgICAgICAgICAgICAgICAgICAgICAgICAgICAgICAgICAgICAgICAgICAgICAg ICAgICAgICAgICAgICAgICAgICAgICANCiAgICAgICAgICAgICAgICAgICAgICAgICAgICAgICAgICAg ICAgICAgICAgICAgICAgICAgICAgICAgICAgICAgIC AgICAgICAgICAgICAgICAgICAgICAgICAgICAgICAgICANCjw/dNJyD7bboLErsqC6Q3yuHl5GWb8HLN 3eo7DjTUZyPAkitwMcConCJoFhFNPiTriSJpe1GDxfTI5KmMUpV6FjW6FdBKxqQD5TFRLsJSStcQRnJO XbWCDuBcX1TRUlUDqeGV1DrZTaTVoiPAUiRPQeFrQt FHWsXAMhQSJsBJ3UKFMcP654noOuAv4BHq1GSlHlGY5hfo1QEKHgWGAsEbxZYbe0UXnhKE5SkJZiJ0Dv cFFah2xYCsXcR5WAFQHwPGOhLr6THAIfVsOyTZQeWSpdML4hEAGoNSCHdUsddwU0KY0WOO0zrqKdKK8F CsQkTc0qAa6LBtEjV7LoK0GiZHRiOMHALMgtOK3XJY BtPGI6MSX7WNKsVCPIXdOrF13lUP2KD3Ahp82qJbY9ZREoJbMsSJxoOK66sCfjwcNquITczDaiUE9DCm 4+WQqjiaTuSfpHJmriFQOQCiJgPRIRLxYxYLAoBBExCTLpLdO5KcAgJz8SUDGvAHYeZKJsWfPgQSKrNB CoXNksMLOeOQW8LUo8CTQeCLPvSJ6XFbGdCUVrAjWy JmBzAMKbMGGgev4QKOZdZKDiIYM1NYIbXOIrFZUyKMwdRUEtOAQiBGv8FUEdDGXaKE1ZJhMwDEIxAYF7 ENGdBPTdBVCees0OMUOkEKAgSZx5VLQlDHZwWIVlOOudKIBtKBK4UAI1NXThGGWaQM8IZxQnJJKvFHdc NgwrEVWxLOHxma3RLDEjHWFjMaLuTPXkEHUnCQOdUX oaRZNrKHX5TjvbLUKhGWLhZL4XGxAlVJOlAFg5DUjyCEIrNKQcnk3OXQNbPHRmNIY7ENXpBWHrBWXjNU jfTCMuEEK3TqFcJJZtNXOlCH8OCeEiEWAmRFp9VzXkUTNtUQWfzn5XJNQtTXAjQQBhDDPlSBDuXKWwVS epLKCaLVD4APk5UVQaPBZaYJ4JJyStPXDhKAPmDOWa ALYzZUZyqu2XBHIyMWSfPTDlPPXbPZItTTRiYMonBXFlKGS1OmU9HSPlVBRjAD9NGnFeWYTsGAC8JPVh BOHlWJIoyl6XTKPsPWIzPqfnVTCgCIPcRVGqXJrzUTJmVIB1DIL0LULzVRSzTC2YWvRsHEEoOGebXYPy LGIoWYMsdd9VVGVzKSXhBoN7YTZxSWAqGCHeHLxjAM TgUMQ4UGH2VOBhVVZmTN9TVpIlOYNeQtv4VxQwZGAsPRViev1WMCOxEUZsDMZ7IoOwWOKdYAZuJNijJF IyVUGfVSYkWZHpHHOsJJ4UPoWgBNHfWmXpKeSwAJOaUHYiqy8GZWRcCQMoCCHqJjKdNDGmRQLxXRkjJN JcHEIsHLApLWPtTDLyIM4AAwGtNBVyTSP1QWIlXUWu JRIrhk5LVYFsHXA2XhZbNNGsGJRtMJYmWEgcVIBjFIGxFUCbZXGuHRZfOX6XQjDuSDNjFTBwNdXdJVId VAKdqn4PHFIkRZS3IYQcTOIbJDJtKRAxDGbsHNXuOQFfFKopCEHzZUJpZU7DCbWvRGJjGaHzCfmqUAFb JZWiqb4MOJWvCYQ3POQ7YaJnYYZvAPCmKIhlCHKxOD X6GDxxLUJjWYWxGI7XQpCyMKOlJkOlVrLpSLHuQOHfor5OaZNyhEwjzq2KAQuZSk1McTuxKPZyKIkfIj 7wfKH4SdEeDHVIYe3EzmZwELWqGAXBKRkkJIXnYUG4VdDkUOUkPAQ4ZDX2XqMxRSKbRpH0FLQ0WjdiOE heDjQ0RJpcZKTaDdCsROYkEjh5KbN4XVD2WWK4LWN2 OGEwODE+BD2sATe+Dg6Lm9VeooE2fxUlPDr5UKMtHJ2LJFCVG2AJZh== ID Date Data Source URINE CULTURE 02/18/2021 12:00:00 AM EDT W1 ([facility]) Name Value Range Interpretation Code Description Data Ximena rce(s) Supporting Document(s) URINE CULTURE eCW1 ([facility]) ID Date Data Source UA URINALYSIS 02/18/2021 12:00:00 AM EDT eCW1 ([facility]) Name Value Range Interpretation Code Description Data Ximena rce(s) Supporting Document(s) UA URINALYSIS eCW1 ([facility]) ID Date Data Source [id number] 01/29/2021 04:10:05 PM EDT [facility] [place] [facility] INFORMATIONPatient MRN Name Date of Age Gend*PT [id number] Minoo Velasquez III 1950 70 years M ---PT Location Admission Date/Time Visit ID Attending Provider --- --- --- --- EPI ID CSN Admitting Provider [id number] ---Cardiology Office NoteName: Minoo Velasquez III Gender: maleDate of : 1950 Age: 70 yearsPrimary Care Provider / Referring Physician: FREDDY DANIELSurrent HistoryChief Complaint: Hospital follow-upHPI:This patient is a 70 years male presents today for follow-up. He has thefollowing medical problems:1. Valvular heart disease. Status post bovine aortic valve replacement 2009.2. COPD with chronic hypoxic respiratory failure, bronchiectasis with chronicantibiotic therapy alternating between cefdinir and ciprofloxacin3. Diabetes mellitus4. Obstructive sleep apnea5. Hypertension6. Coronary artery disease status post multiple stent placement to RCA, LCx, andLeft main. Cardiac catheterization 10/24/2018 all previous stents patent. Focal50 percent lesion in RCA. Medical management recommended.7. Peripheral arterial disease status post left femoral endarterectomy [id number]. Iron deficiency anemia9. Vitamin B12 [id number]. JERI 11/27/2020 LVEF 65%. Mild LVH. Severe bioprosthetic stenosis of theaortic valve. Patent foramen ovale not present. No ASD.11. Cardiac catheterization 11/27/2020 previously placed stents are patent.Focal moderate lesions in mid LAD, mid circumflex, and mid right coronary arterywhich are not sufficiently severe to merit intervention. Referred to TAVRclinic.12. Status post TAVR with #29 [address] Kun 3 valve on [id number] presents today for follow-up. He is accompanied by his . We havereviewed his recent hospitalization. He did have TAVR procedure 12/26/2020. Hedid have echocardiogram done today and we will contact him with results.Overall, he feels much improved since his valve has been replaced. He does havesevere COPD however he tells me that he is using his oxygen "much less". Hedenies any PND orthopnea. He is not any lower extremity edema. He is havingdifficulty urinating and he is set up to see a urologist. He is curre ntly noton any diuretics. His EKG today demonstrates normal sinus rhythm unchanged fromprevious. He has not had any chest pain, dizziness, lightheadedness, presyncopeor syncope.Review of Systems General Denies dizziness or lightheadedness. Denies any recent, unexpectedweight changes. HEENT Denies any loss or change of vision. Denies tinnitus. Respiratory Denies PND, orthopnea, ZAVALA, hemoptysis, cough, or shortness ofbreath. Cardiac Denies chest pain or pressure, denies palpitations GI Denies melena, hematochezia, nausea, or vomiting. MS Denies any lower extremity edema. Neuro Denies speech, motor, or sensory impairment. Psych Denies depression or anxiety. Endo Denies polyuria or polydipsia, denies temperature intolerance. Derm Denies diaphoresis, non-healing skin woundsPast HistoryPast Medical History:Diagnosis Date Anxiety Aortic valve stenosis 11/26/2020 Added automatically from request for surgery [id number] Cardiac murmur CHF (congestive heart failure) COPD (chronic obstructive pulmonary disease) 2 L NC O2 Coronary artery disease Followed by Dr Hua Parrish Diabetes mellitus, type II Disease of thyroid gland Diverticulitis Emphysema GI bleed Hepatitis 1969 Homograft cardiac valve stenosis Hypertension Myocardial infarction 03/2008 Pneumothorax Following aortic valve surgery 2009 Sleep apnea 2L NC at night AIRVO 2 Spinal stenosis Stable angina 11/26/2020 Added automatically from request for surgery [id number] Stroke seen on imaging per patient Systolic heart failure 11/26/2020 Added automatically from request for surgery [id number] Surgical History:Procedure Laterality Date ANGIOPLASTY AORTIC VALVE REPLACEMENT 12/24/2009 Mini AVR with No. 25 magna ease and femorofemoral cannulation CARDIAC CATHETERIZATION 07/13/2012 CARDIAC CATHETERIZATION N/A 10/24/2018 Procedure: Cardiac catheterization; Surgeon: Shanique Ramírez MD; Laterality:N/A; CARDIAC CATHETERIZATION N/A 10/24/2018 Procedure: Angioplasty-coronary; Surgeon: Shanique Ramírez MD; Laterality:N/A; CARDIAC CATHETERIZATION N/A 11/27/2020 Procedure: Left heart cath; Surgeon: Shanique Ramírez MD; Laterality: N/A; CARDIAC CATHETERIZATION N/A 11/27/2020 Procedure: Angioplasty-coronary; Surgeon: Shanique Ramírez MD; Laterality:N/A; CATARACT EXTRACTION W/ INTRAOCULAR LENS IMPLANT, BILATERAL CORONARY STENT PLACEMENT 12 stents ECHOCARDIOGRAM TRANSESOPHAGEAL N/A 11/27/2020 Procedure: ECHO TRANSESOPHAGEAL; Surgeon: Callie Enamorado MD; Laterality: N/A;scheduled with Dr. Enamorado per Dr. Jones LUMBAR DISCECTOMY L3 ,4, 5 SINUS SURGERY TRANSCATHETER AORTIC VALVE REPLACEMENT N/A 12/25/2020 Procedure: TRANSCATHETER AORTIC VALVE IMPLANT FEMORAL; Surgeon: MD Severino; Laterality: N/A; VASCULAR STENT Right Lower extremity VASCULAR SURGERY Left lower extremityFamily HistoryProblem Relation Age of Onset Myocardial Infarction (DC) Father Healthy, No Significant History Mother Malig Hyperthermia Neg HxSocial HistorySocioeconomic History Marital status: Spouse name: Not on file Number of children: Not on file Years of education: Not on file Highest education level: Not on fileOccupational History Not on fileTobacco Use Smoking status: Former Smoker Packs/day: 1.00 Years: 30.00 Pack years: 30.00 Types: Cigarettes, Pipe, Cigars Quit date: 11/24/2009 Years since quittin.1 Smokeless tobacco: Never UsedVaping Use Vaping Use: Never usedSubstance and Sexual Activity Alcohol use: No Drug use: No Sexual activity: Not on fileOther Topics Concern Bike Helmet Not Asked History of Breast Feeding Not Asked Self-Exams Not Asked Caffeine Concern Not Asked Hobby Hazards Not Asked Sleep Concern Not Asked Daily Calcium Supplement Not Asked Lead Exposure Not Asked Special Diet Not Asked Daily Vitamin D Supplement Not Asked Service Not Asked Stress Concern Not Asked Domestic Violence in home Not Asked Radon exposure Not Asked Weight Concern Not Asked Exercise Not Asked Seat Belt Not Asked Well water Not Asked Firearms in home Not AskedSocial History Narrative Not on fileSocial Determinants of HealthFinancial Resource Strain: Difficulty of Paying Living Expenses:Food Insecurity: Worried About Running Out of Food in the Last Year: Ran Out of Food in the Last Year:Transportation Needs: Lack of Transportation (Medical): Lack of Transportation (Non-Medical):Physical Activity: Days of Exercise per Week: Minutes of Exercise per Session:Stress: Feeling of Stress :Social Connections: Frequency of Communication with Friends and Family: Frequency of Social Gatherings with Friends and Family: Attends Sikh Services: Active Member of Clubs or Organizations: Attends Club or Organization Meetings: Marital Status:Intimate Partner Violence: Fear of Current or Ex-Partner: Emotionally Abused: Physically Abused: Sexually Abused:Medications and AllergiesALLERGIES/SENSITIVITIES: Aspirin, Fexofenadine, Levofloxacin, Pravastatin,Quinine, and RosuvastatinCurrent Outpatient Medications: aclidinium bromide (TUDORZA PRESSAIR) 400 MCG/ACT AEPB inhaler, Inhale 1 puffdaily as needed , Disp: , Rfl: albuterol (PROVENTIL) (2.5 MG/3ML) 0.083% nebulizer solution, Take 2.5 mg bynebulization 4 (four) times a day , Disp: , Rfl: ascorbic acid (VITAMIN C) 500 MG tablet, Take 1,000 mg by mouth daily, Disp:, Rfl: B-Complex-C TABS, Take 1 tablet by mouth daily, Disp: , Rfl: Brimonidine Tartrate (ALPHAGAN P OP), Administer 1 drop to both eyes 2 (two)times a day , Disp: , Rfl: budesonide (PULMICORT) 0.5 MG/2ML nebulizer solution, Take 0.5 mg bynebulization every 12 (twelve) hours, Disp: , Rfl: Calcium Citrate-Vitamin D3 315-6.25 MG-MCG TABS, Take by mouth 2 (two) timesa day , Disp: , Rfl: cefdinir (OMNICEF) 300 MG capsule, Take 300 mg by mouth 2 (two) times a dayFor two weeks, then off for two weeks, then alternate with ciprofloxacin, Disp:, Rfl: cholecalciferol (VITAMIN D3) 1000 UNITS capsule, Take 2,000 Units by mouthdaily, Disp: , Rfl: ciprofloxacin (CIPRO) 500 MG tablet, Take 500 mg by mouth 2 (two) times a dayFor two weeks, then off for two weeks. then alternating with omnicef, Disp: ,Rfl: citalopram (CELEXA) 20 MG tablet, Take 20 mg by mouth nightly, Disp: , Rfl: clopidogrel (PLAVIX) 75 MG tablet, Take 1 tablet (75 mg total) by mouthnightly, Disp: 30 tablet, Rfl: 5 diltiazem (DILACOR XR) 240 MG 24 hr capsule, Take 240 mg by mouth daily,Disp: , Rfl: famotidine (PEPCID) 40 MG tablet, Take 40 mg by mouth nightly , Disp: , Rfl: ferrous sulfate 325 (65 FE) MG tablet, Take 325 mg by mouth daily withbreakfast , Disp: , Rfl: fluconazole (DIFLUCAN) 200 MG tablet, Take 200 mg by mouth daily For 5 daysthen once a week, Disp: , Rfl: folic acid (FOLVITE) 1 MG tablet, Take 1 mg by mouth daily, Disp: , Rfl: formoterol (PERFOROMIST) 20 MCG/2ML nebulizer solution, Take 20 mcg bynebulization 2 (two) times a day, Disp: , Rfl: glimepiride (AMARYL) 2 MG tablet, TAKE ONE TABLET BY MOUTH EVERY DAY 30MINUTES BEFORE HIS LARGEST MEAL, Disp: , Rfl: GUAIFENESIN 1200 PO, Take 1,200 mg by mouth 2 (two) times a day , Disp: ,Rfl: ibandronate (BONIVA) 150 MG tablet, Take 150 mg by mouth every 30 (thirty)days , Disp: , Rfl: 0 Immune Globulin, Human, 4 GM/20ML SOLN, Inject 14 mg under the skin once aweek On Wednesday, Disp: , Rfl: ipratropium (ATROVENT) 0.02 % nebulizer solution, Take 2.5 mL by nebulization4 (four) times a day , Disp: , Rfl: levothyroxine (SYNTHROID, LEVOTHROID) 50 MCG tablet, Take 50 mcg by mouthdaily, Disp: , Rfl: metFORMIN (GLUCOPHAGE) 500 MG tablet, Take 500 mg by mouth 3 (three) times aday , Disp: , Rfl: montelukast (SINGULAIR) 10 MG tablet, Take 10 mg by mouth daily, Disp: , Rfl:3 nitroglycerin (NITROSTAT) 0.4 MG SL tablet, Place 1 tablet (0.4 mg total)under the tongue every 5 (five) minutes as needed for chest pain, Disp: 25tablet, Rfl: 1 nystatin (MYCOSTATIN) 549475 UNIT/ML suspension, Take 200,000 Units by mouth4 (four) times a day , Disp: , Rfl: 0 omeprazole (PRILOSEC) 40 MG capsule, Take 40 mg by mouth daily, Disp: , Rfl: OXYGEN-HELIUM IN, @ 2 liters n/c at night, Disp: , Rfl: pitavastatin (LIVALO) 2 MG TABS, Take 2 mg by mouth daily, Disp: , Rfl: predniSONE (DELTASONE) 10 MG tablet, Take 20 mg by mouth daily , Disp: , Rfl: Probiotic Product (PROBIOTIC ADVANCED PO), Take by mouth, Disp: , Rfl: sulfamethoxazole-trimethoprim (BACTRIM DS,SEPTRA DS) 800-160 MG per tablet,Take 1 tablet by mouth 3 (three) times a week On Wednesday, Wednesday, and Wednesday,Disp: , Rfl: Travoprost (TRAVATAN Z OP), Administer 1 drop to both eyes daily , Disp: ,Rfl: zinc sulfate (ZINCATE) 220 (50 Zn) MG capsule, Take 50 mg by mouth daily,Disp: , Rfl:PhysicalBMI: Body mass index is 22.2 kg/m .Blood Pressure: BP: 106/70 Pulse: Heart Rate: 80Temperature: Temp: 96.4 F Respirations: Resp: 20 Weight: Weight: 66.2 kg (146 lb) O2 Saturation: SpO2: 92 %Physical Exam General Well developed, well nourished, no acute distress Neck Soft and supple without lymphadenopathy or thyromegaly. No JVD. Nobruits. Lungs Clear to auscultation, no crackles, rhonchi, or wheezes Heart Normal S1 S2, no murmurs, clicks, or gallops Musculoskeletal Appears to have normal range of motion x 4 extremities, nojoint swelling. No pedal edema Neuro Alert, orientedx3, no facial asymmetry Derm No rashes, or ulcers Vascular Pulses palpableDiagnosticsLabBMP:Lab ResultsComponent Value Date NA 138 12/26/2020 K 4.0 12/26/2020 CL 102 12/26/2020 CO2 29 12/26/2020 ANIONGAP 7 12/26/2020 CALCIUM 7.7 (L) 12/26/2020 GLU 63 (L) 12/26/2020 BUN 19 12/26/2020 CREATININE 0.73 (L) 12/26/2020 GFRAA >60 12/26/2020 GFRNONAA >60 12/26/2020ardiac:Lab ResultsComponent Value Date PROBNP 3,847 (H) 12/23/2020BC Brief:Lab ResultsComponent Value Date WBC 11.3 (H) 12/26/2020 HGB 11.5 (L) 12/26/2020 HCT 34.3 (L) 12/26/2020 PLT 223 12/26/2020HgbA1c:Lab ResultsComponent Value Date HGBA1C 6.8 (H) 12/25/2020KG:EKG Results (Last 72 hours) 01/29/21 1606 POCT AMB EKG Final result Impression: Normal sinus rhythmAssessment & Plan1. Status post TAVR to replace aortic valve replacement initially done in 2009.Patient did have echocardiogram done today and will be resulted under separatecover. He currently denies any shortness of breath and overall feels "muchbetter".2. COPD; he does have chronic oxygen to use as needed3. Hypertension; blood pressures under good control with current medicaltherapy4. Hyperlipidemia; patient is on a statin5. Known CAD; previous stents placed. He currently denies any chest pain orangina. He does remain on Plavix.We will have patient return to the office in 3 months time for follow-up. Eulalioll establish care with Dr. Tirado in the absence of Dr Ramírez. He knows tocontact our office in the interim if he has any signs or symptoms of cardiacvascular concern.We appreciate the opportunity to care for this patient.Signature: Po Machuca NPDate: January 29, 2021Time: 4:06 PMThis document or parts of this document, were dictated using [email or web address]. A reasonable attempt at proofreading has been made to minimize errors.Please call with any questions or corrections. Name Value Range Interpretation Code Description Data Ximena rce(s) Supporting Document(s) ID Date Data Source [id number] 01/29/2021 03:56:54 PM EDT [facility] Name Value Range Interpretation Code Description Data Ximena rce(s) Supporting Document(s) &PDF [facility] JUJMCc4iZfLTNxXf11/RDPryKJXjk0EzFZcaUVp8ZKrqBFUmZ1AzbWgpGBCMMxUkTnHUIZ6FCSWMZGmP hdG [file] ICAgICAgICAgICAgICAgICAgICAgICAgICAgICAgIC AgICAgICAgICAgICAgICAgICAgICAgICAgICAgICAgICAgICAgICAgICAgICANCiAgICAgICAgICAgIC AgICAgICAgICAgICAgICAgICAgICAgICAgICAgICAgICAgICAgICAgICAgICAgICAgICAgICAgICAgIC AgICAgICAgICAgICAgICAgICAgICAgICAgICANCiAg ICAgICAgICAgICAgICAgICAgICAgICAgICAgICAgICAgICAgICAgICAgICAgICAgICAgICAgICAgICAg ICAgICAgICAgICAgICAgICAgICAgICAgICAgICAgICAgICAgICANCiAgICAgICAgICAgICAgICAgICAg ICAgICAgICAgICAgICAgICAgICAgICAgICAgICAgIC AgICAgICAgICAgICAgICAgICAgICAgICAgICAgICAgICAgICAgICAgICAgICAgICANCiAgICAgICAgIC AgICAgICAgICAgICAgICAgICAgICAgICAgICAgICAgICAgICAgICAgICAgICAgICAgICAgICAgICAgIC AgICAgICAgICAgICAgICAgICAgICAgICAgICAgICAN CiAgICAgICAgICAgICAgICAgICAgICAgICAgICAgICAgICAgICAgICAgICAgICAgICAgICAgICAgICAg ICAgICAgICAgICAgICAgICAgICAgICAgICAgICAgICAgICAgICAgICANCiAgICAgICAgICAgICAgICAg ICAgICAgICAgICAgICAgICAgICAgICAgICAgICAgIC AgICAgICAgICAgICAgICAgICAgICAgICAgICAgICAgICAgICAgICAgICAgICAgICAgICANCiAgICAgIC AgICAgICAgICAgICAgICAgICAgICAgICAgICAgICAgICAgICAgICAgICAgICAgICAgICAgICAgICAgIC AgICAgICAgICAgICAgICAgICAgICAgICAgICAgICAg ICANCiAgICAgICAgICAgICAgICAgICAgICAgICAgICAgICAgICAgICAgICAgICAgICAgICAgICAgICAg ICAgICAgICAgICAgICAgICAgICAgICAgICAgICAgICAgICAgICAgICAgICANCiAgICAgICAgICAgICAg ICAgICAgICAgICAgICAgICAgICAgICAgICAgICAgIC AgICAgICAgICAgICAgICAgICAgICAgICAgICAgICAgICAgICAgICAgICAgICAgICAgICAgICANCjw/ ZuF4uqoVXekyZ9Q4gcPe4KMp0ZOJ4ug2VcWTDfKTulyzXvJbfIXgAaXICzOmvWJrl2QXbqHU2XoBMlA3 JkB0TiYGdzKU7MTALgNXUexPTuFECiIFAdPtW9GVOq AXpnVF7EgTCaTDrlRVGrDSAlXbBqHAPcQBPqRBBfIAIqKKZGBD3QMcYsN6MslC55WKYRTz7+DQplbmRv GqvZOfG7WQYyn4EjUEd7PI8DOOVlFFsfWK8AQSQpwJ4xRXlsAF4OOrQtZuIwTBSJDeNaJ61rbKBgFIb9 N7BvLvIfWZGnUivwHVWsJNauToXvGJOwDqAnGVzwEV 4+ID4+NBfmUF3LDHxwngZkMFQdBn5VEQMcEZV2CQNblOQeQriaKYYPFQcbXF3WhMYjFTQ9wH3oZKcuVK VrUHOcW3wHEaRyzYecSX92mXwxyzZhoUJxHGw+Qn9MNM3yl5QjVUk0aaOtRAfxKIGiRVovQCYjWGWtQO JvMRH9KAM7JZXCEsZiBJDjJONfRZulQRXzRMKhar8X NNGoAMV6Bxl1TUXlBZWqRYHcZTexRTUzLAY9OSAeVOKdPAGyAD3RTnRtOXSsVWEvFVZuODDfSIYrvr6D VVDwUKOvJfYcBWTkFZHzKIPyOZqpOPPmRCLvAYOtKMEbNUOpKA1AJuWpUHFbNONpPdOhXIEcALMsor1M HSCcZFXyRRTeTcTnLHAhCTMzQIlqPKNxYFE9EPO2AC UuKGZiXO0KCvKiFTVjAEewVNDbUKQnXHUngy9XKCKgHNTbMFNrCZZqTHYhMYBmDOtzSBDxCKA0OZV1EY YcNOZfCO4IZdQuLVMiTXD8YlJbWIDuOHBqxc2QVDHuTHImOYH6ZxPsZGRkTMZoLXkdXGXeZWWxHLG9VS JgHYMmAZ1CNtDmVUQkLOT5WUPmZHDyCAEtqr3ZGOIi WVKiKoToRuWqLLReSLFrRGcvNBPcXFEgEiC0TNTgMECvHK9MUwJlVWQqUSFtJwKcMBSoGXOamv2CPUWq GRCrZqQ5KPOjQKZxCZIsCEuhCPSsILFbWIR3TDXuIKDvFR0GChQhZDPpKJF7ClymIKRiBSSime0RVTNz AGFuPci7XAQvFHVyWDQaGZiwPXIkEPN5EEQ6EPXdUH JjZI5QFlQeRUZjOBa6XnegAXCwRHGzys7ZZOKlCHZmJfL7ZnMhLRMhXLTaIDcnMTTlPYG8TXCuJHSzNM UkZG9SYrQvUUFkLuBlLCxhTXDiBLIzje3LKMVeQXBiBmS1NYViJLQdORArIEqsNRHgXAD5EiD3BPQvLN WmWU3TOlFqMMFrBqvwWvRdHNTiIHQetn1GGTOuPPJ6 NGU2GPFtVDKnYQOjVNtjNBYxQUR3CAMsPRWvKYWmWG7UNkXpFMWgVDEhVbZmLFPcXOHcvl7WLIWmCMS1 FSx5PaJjPSQhOKXsQVezEGEbYNWpMYh4IHBpBHHsAG7KIhRxBRIoGyV4GbXjEYUnJDJiid3FJFEtQCX1 AHC9FIQcISPnYERmPOfyRZRlBRW7FCV1XFSdOUTyQZ 1YMgExUXblZPMCFgw7YKgmT4f9IMI2CJ7AV6Itx4MjJiazJUTJKMnoEQ8uspCkAHUbLt3CE7bOUcbgEr JzQaRpRXq4QARaNzDwPTK8LlwdLuOaLuI3ZYb6Vr9cJFGuIvLsOyY1QDr7YAOuYAT0IUsxH6QyUVH0Ru F8IiqzAgDqNQ2RBl9TGwU6BAL4gYBbRs2BDrCgWQWMWeZwUZ8AXPw= ID Date Data Source [id number] 01/07/2021 11:45:00 AM EDT [facility] ([facility] Name Value Range Interpretation Code Description Data Ximena rce(s) Supporting Document(s) Chol 166 mg/dL 0-200 [facility] CHRONIC KIDNEY DISEASE STAGING PER NKF: MALE [...] DESIRABLE: <130 MG/DL <110 MG/DL BORDERLINE-HIGH RISK: 130- 159 MG/DL 110-129 MG/DL HIGH RISK: >160 MG/DL >130 MG/DL *CHILDREN AND ADOLESCENTS REPRESENTS INDIVIDUALA AGED 2-19 YEARS EXCLUSIVE. Trig 175 mg/dL 35-200 [facility] ([facility] CHRONIC KIDNEY DISEASE STAGING PER NKF: MALE [...] DESIRABLE: <130 MG/DL <110 MG/DL BORDERLINE-HIGH RISK: 130- 159 MG/DL 110-129 MG/DL HIGH RISK: >160 MG/DL >130 MG/DL *CHILDREN AND ADOLESCENTS REPRESENTS INDIVIDUALA AGED 2-19 YEARS EXCLUSIVE. Cholesterol in HDL [Mass/volume] in Serum or Plasma 68 mg/dL 35-55 Above high normal [facility] ([facility] CHRONIC KIDNEY DISEASE STAGING PER NKF: MALE [...] DESIRABLE: <130 MG/DL <110 MG/DL BORDERLINE-HIGH RISK: 130- 159 MG/DL 110-129 MG/DL HIGH RISK: >160 MG/DL >130 MG/DL *CHILDREN AND ADOLESCENTS REPRESENTS INDIVIDUALA AGED 2-19 YEARS EXCLUSIVE. LDL_C 63 Calc 75-129 Below low normal [facility] ( [facility] CHRONIC KIDNEY DISEASE STAGING PER NKF: MALE [...] DESIRABLE: <130 MG/DL <110 MG/DL BORDERLINE-HIGH RISK: 130- 159 MG/DL 110-129 MG/DL HIGH RISK: >160 MG/DL >130 MG/DL *CHILDREN AND ADOLESCENTS REPRESENTS INDIVIDUALA AGED 2-19 YEARS EXCLUSIVE. Cho/HDL Ratio 2.5 Calc [facility] ([facility] CHRONIC KIDNEY DISEASE STAGING PER NKF: MALE [...] DESIRABLE: <130 MG/DL <110 MG/DL BORDERLINE-HIGH RISK: 130- 159 MG/DL 110-129 MG/DL HIGH RISK: >160 MG/DL >130 MG/DL *CHILDREN AND ADOLESCENTS REPRESENTS INDIVIDUALA AGED 2-19 YEARS EXCLUSIVE. ID Date Data Source [id number] 01/07/2021 11:45:00 AM EDT [facility] ([facility] Name Value Range Interpretation Code Description Data Ximena rce(s) Supporting Document(s) Glu 69 mg/dL 70-110 Below low normal [facility] ( [facility] CHRONIC KIDNEY DISEASE STAGING PER NKF: MALE [...] DESIRABLE: <130 MG/DL <110 MG/DL BORDERLINE-HIGH RISK: 130- 159 MG/DL 110-129 MG/DL HIGH RISK: >160 MG/DL >130 MG/DL *CHILDREN AND ADOLESCENTS REPRESENTS INDIVIDUALA AGED 2-19 YEARS EXCLUSIVE. Creat 0.6 mg/dL 0.7-1.2 Below low normal [facility] ( [facility] CHRONIC KIDNEY DISEASE STAGING PER NKF: MALE [...] DESIRABLE: <130 MG/DL <110 MG/DL BORDERLINE-HIGH RISK: 130- 159 MG/DL 110-129 MG/DL HIGH RISK: >160 MG/DL >130 MG/DL *CHILDREN AND ADOLESCENTS REPRESENTS INDIVIDUALA AGED 2-19 YEARS EXCLUSIVE. BUN 14 mg/dL 8-23 [facility] CHRONIC KIDNEY DISEASE STAGING PER NKF: MALE [...] DESIRABLE: <130 MG/DL <110 MG/DL BORDERLINE-HIGH RISK: 130- 159 MG/DL 110-129 MG/DL HIGH RISK: >160 MG/DL >130 MG/DL *CHILDREN AND ADOLESCENTS REPRESENTS INDIVIDUALA AGED 2-19 YEARS EXCLUSIVE. Na 135 mmol/L 136-145 Below low normal [facility] ( [facility] CHRONIC KIDNEY DISEASE STAGING PER NKF: MALE [...] DESIRABLE: <130 MG/DL <110 MG/DL BORDERLINE-HIGH RISK: 130- 159 MG/DL 110-129 MG/DL HIGH RISK: >160 MG/DL >130 MG/DL *CHILDREN AND ADOLESCENTS REPRESENTS INDIVIDUALA AGED 2-19 YEARS EXCLUSIVE. BUN/Creatinine Ratio 23.4 Calc [facility] ([facility] CHRONIC KIDNEY DISEASE STAGING PER NKF: MALE [...] DESIRABLE: <130 MG/DL <110 MG/DL BORDERLINE-HIGH RISK: 130- 159 MG/DL 110-129 MG/DL HIGH RISK: >160 MG/DL >130 MG/DL *CHILDREN AND ADOLESCENTS REPRESENTS INDIVIDUALA AGED 2-19 YEARS EXCLUSIVE. K 4.4 mmol/L 3.5-5.1 [facility] ([facility] CHRONIC KIDNEY DISEASE STAGING PER NKF: MALE [...] DESIRABLE: <130 MG/DL <110 MG/DL BORDERLINE-HIGH RISK: 130- 159 MG/DL 110-129 MG/DL HIGH RISK: >160 MG/DL >130 MG/DL *CHILDREN AND ADOLESCENTS REPRESENTS INDIVIDUALA AGED 2-19 YEARS EXCLUSIVE. CL 99.3 mmol/L 98.0-107.0 [facility] CHRONIC KIDNEY DISEASE STAGING PER NKF: MALE [...] DESIRABLE: <130 MG/DL <110 MG/DL BORDERLINE-HIGH RISK: 130- 159 MG/DL 110-129 MG/DL HIGH RISK: >160 MG/DL >130 MG/DL *CHILDREN AND ADOLESCENTS REPRESENTS INDIVIDUALA AGED 2-19 YEARS EXCLUSIVE. CA 10.2 mg/dL 8.6-10.2 [facility] CHRONIC KIDNEY DISEASE STAGING PER NKF: MALE [...] DESIRABLE: <130 MG/DL <110 MG/DL BORDERLINE-HIGH RISK: 130- 159 MG/DL 110-129 MG/DL HIGH RISK: >160 MG/DL >130 MG/DL *CHILDREN AND ADOLESCENTS REPRESENTS INDIVIDUALA AGED 2-19 YEARS EXCLUSIVE. Co2 24.8 mmol/L 22.0-29.0 [facility] CHRONIC KIDNEY DISEASE STAGING PER NKF: MALE [...] DESIRABLE: <130 MG/DL <110 MG/DL BORDERLINE-HIGH RISK: 130- 159 MG/DL 110-129 MG/DL HIGH RISK: >160 MG/DL >130 MG/DL *CHILDREN AND ADOLESCENTS REPRESENTS INDIVIDUALA AGED 2-19 YEARS EXCLUSIVE. TP 7.1 g/dL 6.6-8.7 [facility] CHRONIC KIDNEY DISEASE STAGING PER NKF: MALE [...] DESIRABLE: <130 MG/DL <110 MG/DL BORDERLINE-HIGH RISK: 130- 159 MG/DL 110-129 MG/DL HIGH RISK: >160 MG/DL >130 MG/DL *CHILDREN AND ADOLESCENTS REPRESENTS INDIVIDUALA AGED 2-19 YEARS EXCLUSIVE. Alb 4.4 g/dL 3.5-5.2 [facility] CHRONIC KIDNEY DISEASE STAGING PER NKF: MALE [...] DESIRABLE: <130 MG/DL <110 MG/DL BORDERLINE-HIGH RISK: 130- 159 MG/DL 110-129 MG/DL HIGH RISK: >160 MG/DL >130 MG/DL *CHILDREN AND ADOLESCENTS REPRESENTS INDIVIDUALA AGED 2-19 YEARS EXCLUSIVE. A/G Ratio 1.6 [facility] CHRONIC KIDNEY DISEASE STAGING PER NKF: MALE [...] DESIRABLE: <130 MG/DL <110 MG/DL BORDERLINE-HIGH RISK: 130- 159 MG/DL 110-129 MG/DL HIGH RISK: >160 MG/DL >130 MG/DL *CHILDREN AND ADOLESCENTS REPRESENTS INDIVIDUALA AGED 2-19 YEARS EXCLUSIVE. Alp 76.4 U/L 40-129 [facility] ([facility] CHRONIC KIDNEY DISEASE STAGING PER NKF: MALE [...] DESIRABLE: <130 MG/DL <110 MG/DL BORDERLINE-HIGH RISK: 130- 159 MG/DL 110-129 MG/DL HIGH RISK: >160 MG/DL >130 MG/DL *CHILDREN AND ADOLESCENTS REPRESENTS INDIVIDUALA AGED 2-19 YEARS EXCLUSIVE. Globulin 2.7 Calc [facility] CHRONIC KIDNEY DISEASE STAGING PER NKF: MALE [...] DESIRABLE: <130 MG/DL <110 MG/DL BORDERLINE-HIGH RISK: 130- 159 MG/DL 110-129 MG/DL HIGH RISK: >160 MG/DL >130 MG/DL *CHILDREN AND ADOLESCENTS REPRESENTS INDIVIDUALA AGED 2-19 YEARS EXCLUSIVE. Alt (SGPT) 24 U/L 0-41 [facility] CHRONIC KIDNEY DISEASE STAGING PER NKF: MALE [...] DESIRABLE: <130 MG/DL <110 MG/DL BORDERLINE-HIGH RISK: 130- 159 MG/DL 110-129 MG/DL HIGH RISK: >160 MG/DL >130 MG/DL *CHILDREN AND ADOLESCENTS REPRESENTS INDIVIDUALA AGED 2-19 YEARS EXCLUSIVE. Ast (Sgot) 18 U/L 0-40 [facility] CHRONIC KIDNEY DISEASE STAGING PER NKF: MALE [...] DESIRABLE: <130 MG/DL <110 MG/DL BORDERLINE-HIGH RISK: 130- 159 MG/DL 110-129 MG/DL HIGH RISK: >160 MG/DL >130 MG/DL *CHILDREN AND ADOLESCENTS REPRESENTS INDIVIDUALA AGED 2-19 YEARS EXCLUSIVE. Tbili 0.20 mg/dL 0.0-1.2 [facility] CHRONIC KIDNEY DISEASE STAGING PER NKF: MALE [...] DESIRABLE: <130 MG/DL <110 MG/DL BORDERLINE-HIGH RISK: 130- 159 MG/DL 110-129 MG/DL HIGH RISK: >160 MG/DL >130 MG/DL *CHILDREN AND ADOLESCENTS REPRESENTS INDIVIDUALA AGED 2-19 YEARS EXCLUSIVE. Osmolality-Calculated 268.2 Calc [facility] ([facility] CHRONIC KIDNEY DISEASE STAGING PER NKF: MALE [...] DESIRABLE: <130 MG/DL <110 MG/DL BORDERLINE-HIGH RISK: 130- 159 MG/DL 110-129 MG/DL HIGH RISK: >160 MG/DL >130 MG/DL *CHILDREN AND ADOLESCENTS REPRESENTS INDIVIDUALA AGED 2-19 YEARS EXCLUSIVE. Anion Gap 15 mmol/L [facility] CHRONIC KIDNEY DISEASE STAGING PER NKF: MALE [...] DESIRABLE: <130 MG/DL <110 MG/DL BORDERLINE-HIGH RISK: 130- 159 MG/DL 110-129 MG/DL HIGH RISK: >160 MG/DL >130 MG/DL *CHILDREN AND ADOLESCENTS REPRESENTS INDIVIDUALA AGED 2-19 YEARS EXCLUSIVE. eGFR Non-Afr. Citizen Of [place] 103 # [facility] ([facility] CHRONIC KIDNEY DISEASE STAGING PER NKF: MALE [...] DESIRABLE: <130 MG/DL <110 MG/DL BORDERLINE-HIGH RISK: 130- 159 MG/DL 110-129 MG/DL HIGH RISK: >160 MG/DL >130 MG/DL *CHILDREN AND ADOLESCENTS REPRESENTS INDIVIDUALA AGED 2-19 YEARS EXCLUSIVE. eGFR 120 # [facility] ( [facility] CHRONIC KIDNEY DISEASE STAGING PER NKF: MALE [...] DESIRABLE: <130 MG/DL <110 MG/DL BORDERLINE-HIGH RISK: 130- 159 MG/DL 110-129 MG/DL HIGH RISK: >160 MG/DL >130 MG/DL *CHILDREN AND ADOLESCENTS REPRESENTS INDIVIDUALA AGED 2-19 YEARS EXCLUSIVE. ID Date Data Source [id number] 01/07/2021 11:45:00 AM EDT [facility] ([facility] Name Value Range Interpretation Code Description Data Ximena rce(s) Supporting Document(s) Thyrotropin [Units/volume] in Serum or Plasma 13.532 ulU/mL 0. 60-4.8 Above high normal [facility] ([facility] ) ID Date Data Source [id number] 01/07/2021 11:44:00 AM EDT [facility] ([facility] Name Value Range Interpretation Code Description Data Ximena rce(s) Supporting Document(s) Hemoglobin A1c/Hemoglobin.total in Blood 6.3 % 4.50-6.20 Above high normal [facility] ([facility] ID Date Data Source [id number] 12/31/2020 06:03:22 PM [facility]T [facility] [place] INFORMATIONPatient MRN Name Date of Age Gend*PT [id number] Minoo Velasquez III 1950 70 years M IPPT Location Admission Date/Time Visit ID Attending [id number] 12/25/20 1006 --- --- EPI ID CSN Admitting Provider [id number] Shanique Ramírez MD([id number])HISTORY AND PHYSICALName: Minoo Velasquez III Gender: maleDate of : 1950 Age: 70 yearsDate/Time of Admit: 12/25/2020 10:06 AM Code Status: Full CodePrimary Care Provider / Referring Physician: Siobhan DANIELSformant:Current HistoryChief Complaint:HPI:70 years old white male reports a history of Mini AVR with No. 25 magna ease andfemorofemoral cannulation on December 24, 2009. Patient has been followed by hiscardiologist Dr. Ramírez. He reports shortness of breath at rest and dyspnea onexertion-such as with eating or talking. He has fatigue. He reports chestpressure and burning. He reports it occurs at a frequency of approximatelyevery other day. Pressure/burning occurs with exertion or at night. It isrelieved with 1-1/2 hours of rest. Patient reported to emergency room and wasadvised further cardiac evaluation. He underwent echo on 11/23/2020. Echo findssevere aortic stenosis. Mean aortic valve gradient 49 mmHg, aortic valve area0.71 cm . He had cardiac catheterization on 11/27/2020. Catheterization Ost LADto Prox LAD lesion is 15% stenosed. Mid RCA lesion is 50% stenosed; Dist RCAlesion is 30% stenosed; Mid Cx lesion is 50% stenosed; 1st Diag lesion is 50%stenosed; Mid LAD lesion is 50% stenosed; Prox RCA lesion is 40% stenosed.Review of Systems:No recent bleeding, No rashes, No fever/chills/vomiting, No arthralgias, Norecent trauma, No suicidal ideation.Past HistoryPast Medical History:Diagnosis Date Anxiety Aortic valve stenosis 11/26/2020 Added automatically from request for surgery [id number] Cardiac murmur CHF (congestive heart failure) COPD (chronic obstructive pulmonary disease) 2 L NC O2 Coronary artery disease Followed by Dr Ramírez Depression Diabetes mellitus, type II Disease of thyroid gland Diverticulitis Emphysema GI bleed Hepatitis 1969 Homograft cardiac valve stenosis Hypertension Myocardial infarction 03/2008 Pneumothorax Following aortic valve surgery 2009 Sleep apnea 2L NC at night AIRVO 2 Spinal stenosis Stable angina 11/26/2020 Added automatically from request for surgery [id number] Stroke seen on imaging per patient Systolic heart failure 11/26/2020 Added automatically from request for surgery [id number] Surgical History:Procedure Laterality Date ANGIOPLASTY AORTIC VALVE REPLACEMENT 12/24/2009 Mini AVR with No. 25 magna ease and femorofemoral cannulation CARDIAC CATHETERIZATION 07/13/2012 CARDIAC CATHETERIZATION N/A 10/24/2018 Procedure: Cardiac catheterization; Surgeon: Shanique Ramírez MD; Laterality:N/A; CARDIAC CATHETERIZATION N/A 10/24/2018 Procedure: Angioplasty-coronary; Surgeon: Shanique Ramírez MD; Laterality:N/A; CARDIAC CATHETERIZATION N/A 11/27/2020 Procedure: Left heart cath; Surgeon: Shanique Ramírez MD; Laterality: N/A; CARDIAC CATHETERIZATION N/A 11/27/2020 Procedure: Angioplasty-coronary; Surgeon: Shanique Ramírez MD; Laterality:N/A; CATARACT EXTRACTION W/ INTRAOCULAR LENS IMPLANT, BILATERAL CORONARY STENT PLACEMENT 12 stents ECHOCARDIOGRAM TRANSESOPHAGEAL N/A 11/27/2020 Procedure: ECHO TRANSESOPHAGEAL; Surgeon: Callie Enamorado MD; Laterality: N/A;scheduled with Dr Elissa Enamorado per Dr. Jones LUMBAR DISCECTOMY L3 ,4, 5 SINUS SURGERY TRANSCATHETER AORTIC VALVE REPLACEMENT N/A 12/25/2020 Procedure: TRANSCATHETER AORTIC VALVE IMPLANT FEMORAL; Surgeon: MD Severino; Laterality: N/A; VASCULAR STENT Right Lower extremity VASCULAR SURGERY Left lower extremityFamily HistoryProblem Relation Age of Onset Myocardial Infarction (DC) Father Healthy, No Significant History Mother Malig Hyperthermia Neg HxSocial HistorySocial History Narrative Not on fileSocial HistorySocioeconomic History Marital status: Spouse name: Not on file Number of children: Not on file Years of education: Not on file Highest education level: Not on fileOccupational History Not on fileTobacco Use Smoking status: Former Smoker Packs/day: 1.00 Years: 30.00 Pack years: 30.00 Types: Cigarettes, Pipe, Cigars Quit date: 11/24/2009 Years since quittin.1 Smokeless tobacco: Never UsedVaping Use Vaping Use: Never usedSubstance and Sexual Activity Alcohol use: No Drug use: No Sexual activity: Not on fileOther Topics Concern Bike Helmet Not Asked History of Breast Feeding Not Asked Self-Exams Not Asked Caffeine Concern Not Asked Hobby Hazards Not Asked Sleep Concern Not Asked Daily Calcium Supplement Not Asked Lead Exposure Not Asked Special Diet Not Asked Daily Vitamin D Supplement Not Asked Service Not Asked Stress Concern Not Asked Domestic Violence in home Not Asked Radon exposure Not Asked Weight Concern Not Asked Exercise Not Asked Seat Belt Not Asked Well water Not Asked Firearms in home Not AskedSocial History Narrative Not on fileSocial Determinants of HealthFinancial Resource Strain: Difficulty of Paying Living Expenses:Food Insecurity: Worried About Running Out of Food in the Last Year: Ran Out of Food in the Last Year:Transportation Needs: Lack of Transportation (Medical): Lack of Transportation (Non-Medical):Physical Activity: Days of Exercise per Week: Minutes of Exercise per Session:Stress: Feeling of Stress :Social Connections: Frequency of Communication with Friends and Family: Frequency of Social Gatherings with Friends and Family: Attends Sikh Services: Active Member of Clubs or Organizations: Attends Club or Organization Meetings: Marital Status:Intimate Partner Violence: Fear of Current or Ex-Partner: Emotionally Abused: Physically Abused: Sexually Abused:Medications and AllergiesALLERGIES/SENSITIVITIES:AllergiesAllergen Reactions Aspirin Other (See Comments) Rectal bleeding Fexofenadine Other (See Comments) Reaction: SHORT OF BREATH Comment: 05/09/2008 @ 1447- PER PATIENT FROM [facility]- PATIENT HAS BEEN TA [place] W/O PROBLEM..BETTY Levofloxacin Reaction: LEG CRAMPS Pravastatin Other (See Comments) headaches Quinine Reaction: HIVES Comment: FACIAL SWELLING Rosuvastatin Reaction: MUSCLE ACHESScheduled Meds:Continuous Infusions:PRN Meds:.PhysicalBlood Pressure: BP: 123/69 Pulse: Heart Rate: 90Temperature: Temp: 99 F Respirations: Resp: 18Admission Weight: Weight: 62.1 kg (137 lb) O2 Saturation: SpO2: 93 %Today's Weight: Weight: 64.6 kg (142 lb 6.4 oz)Physical ZjldSGBq5MkzrsoommmnIxmylid from last 7 daysLab Units [id number] mg/dL 0.73*Results from last 7 daysLab Units [id number] % 34.3*Assessment & PlanPlan for TAVR. Procedure and risks explained and understood.Shanique Ramírez MD Name Value Range Interpretation Code Description Data Ximena rce(s) Supporting Document(s) ID Date Data Source [id number] 12/31/2020 06:00:51 PM EDT [facility] [place] INFORMATIONPatient MRN Name Date of Age Gend*PT [id number] Minoo Velasquez III 1950 70 years M IPPT Location Admission Date/Time Visit ID Attending [id number] 12/25/20 1006 --- --- EPI ID CSN Admitting Provider [id number] Shanique Ramírez MD([id number]) Attestation signed by Shanique Ramírez MD at 12/31/2020 6:00 PMI saw and evaluated the patient and reviewed Ms. Desouza's note. I agree withthe history, physical and medical decision making. Safe for d/c home. Ipersonally reviewed the echo which shows the TAVR well seated.Signature: Shanique Ramírez MDDate: December 31, 2020Time: 6:00 PM Physician Discharge Summary Minoo Velasquez IIIMRN: [id number] date: 12/25/2020ttending Physician: Shanique Ramírez MDAdmission Diagnosis: Aortic valve stenosisSecondary Diagnoses: Principal Problem: Aortic valve stenosis Hypertension Diabetes mellitus COPD Sleep apnea Peripheral vascular disease Iron deficiency anemia Chronic bronchiectasis Coronary artery diseasePrinciple Procedures:Transfemoral znvtt-wh-vvqmc TAVR with a #29 mm Burch Kun 3 valveIndication for Admission:70 years old white male reports a history of AVR December 24, 2009. He had beenexperiencing shortness of breath at rest and dyspnea on exertion-such as witheating or talking as well as fatigue. He had a JERI to evaluate the valve whichrevealed severe aortic stenosis. He was referred for TAVR and underwent allrequired testing. His case was discussed at the multi-disciplinary structuralheart conference and given the patient's redo status as well as his severe COPD,they agreed that the best david tment for his severe aortic stenosis.Hospital Course & Complications:The patient underwent mtrwz-rj-cbmov TAVR on 12/26/20 with successful fracturingof his previous surgical valve. Following the procedure he remained in SR withno bradyarrhythmias on the monitor. His TVP was discontinued with no issues.On 12/26 the patient feels well. He only complains of soreness at the surgicalsites. They remain stable and without hematomas. He has been ambulating withoutany issues. He feels improvement with his breathing. He had an echocardiogramthat revealed an EF of 55-65%, no aortic insufficiency and a mean gradient of 9mmHg.The patient will be discharged to home today. He is to resume his cardizem. Hewill be discharged on plavix only for 6 months given his history of rectalbleeding with aspirin. He has a follow-up scheduled in Dr. Ramírez's office on01/29/21.Past Medical History:Past Medical History:Diagnosis Date Anxiety Aortic valve stenosis 11/26/2020 Added automatically from request for surgery [id number] Cardiac murmur CHF (congestive heart failure) COPD (chronic obstructive pulmonary disease) 2 L NC O2 Coronary artery disease Followed by Dr Ramírez Depression Diabetes mellitus, type II Disease of thyroid gland Diverticulitis Emphysema GI bleed Hepatitis 1969 Homograft cardiac valve stenosis Hypertension Myocardial infarction 03/2008 Pneumothorax Following aortic valve surgery 2009 Sleep apnea 2L NC at night AIRVO 2 Spinal stenosis Stable angina 11/26/2020 Added automatically from request for surgery [id number] Stroke seen on imaging per patient Systolic heart failure 11/26/2020 Added automatically from request for surgery [id number] Recent Labs:BMP:Lab ResultsComponent Value Date NA 138 12/26/2020 K 4.0 12/26/2020 CL 102 12/26/2020 CO2 29 12/26/2020 ANIONGAP 7 12/26/2020 CALCIUM 7.7 (L) 12/26/2020 GLU 63 (L) 12/26/2020 BUN 19 12/26/2020 CREATININE 0.73 (L) 12/26/2020 GFRAA >60 12/26/2020 GFRNONAA >60 12/26/2020BC without Diff:Lab ResultsComponent Value Date WBC 11.3 (H) 12/26/2020 RBC 3.55 (L) 12/26/2020 HGB 11.5 (L) 12/26/2020 HCT 34.3 (L) 12/26/2020 MCV 96.5 (H) 12/26/2020 MCH 32.5 (H) 12/26/2020 MCHC 33.6 12/26/2020 RDW 14.6 (H) 12/26/2020 PLT 223 12/26/2020 MPV 7.4 12/26/2020Medications:Your medication listCONTINUE taking these medications Instructions Last Dose Given Morning Afternoon Evening Bedtime As Neededalbuterol (2.5 MG/3ML) 0.083% nebulizer solutionCommonly known as: PROVENTIL Take 2.5 mg by nebulization 4 (four) times a dayALPHAGAN P OP Administer 1 drop to both eyes 2 (two) times a dayascorbic acid 500 MG tabletCommonly known as: VITAMIN C Take 1,000 mg by mouth [id number] Tabs Take 1 tablet by mouth dailybudesonide 0.5 MG/2ML nebulizer solutionCommonly known as: PULMICORT Take 0.5 mg by nebulization every 12 (twelve) hoursCalcium Citrate-Vitamin D3 315-6.25 MG-MCG Tabs Take by mouth 2 (two) times a daycefdinir 300 MG capsuleCommonly known as: OMNICEF Take 300 mg by mouth 2 (two) times a day For two weeks, then off for two weeks,then alternate with ciprofloxacincholecalciferol 25 MCG (1000 UT) capsuleCommonly known as: VITAMIN D3 Take 2,000 Units by mouth dailyciprofloxacin 500 MG tabletCommonly known as: CIPRO Take 500 mg by mouth 2 (two) times a day For two weeks, then off for two weeks.then alternating with omnicefcitalopram 20 MG tabletCommonly known as: Yakov eXA Take 20 mg by mouth nightlyclopidogrel 75 MG tabletCommonly known as: PLAVIX Take 1 tablet (75 mg total) by mouth nightlydiltiazem 240 MG 24 hr capsuleCommonly known as: DILACOR XR Take 240 mg by mouth dailyEmpagliflozin 25 MG Tabs Take 25 mg by mouth dailyfamotidine 40 MG tabletCommonly known as: PEPCID Take 40 mg by mouth nightlyferrous sulfate 325 (65 FE) MG tablet Take 325 mg by mouth 2 (two) times a day with mealsfluconazole 200 MG tabletCommonly known as: DIFLUCAN Take 200 mg by mouth daily For 5 days then once a weekfolic acid 1 MG tabletCommonly known as: FOLVITE Take 1 mg by mouth dailyformoterol 20 MCG/2ML nebulizer solutionCommonly known as: PERFOROMIST Take 20 mcg by nebulization 2 (two) times a dayGUAIFENESIN 1200 PO Take 1,200 mg by mouth 2 (two) times a dayibandronate 150 MG tabletCommonly known as: BONIVA Take 150 mg by mouth every 30 (thirty) daysImmune Globulin (Human) 4 GM/20ML Soln Inject 14 mg under the skin once a week On Wednesdayipratropium 0.02 % nebulizer solutionC ommonly known as: ATROVENT Take 2.5 mL by nebulization 4 (four) times a daymetFORMIN 500 MG tabletCommonly known as: GLUCOPHAGE Take 500 mg by mouth 3 (three) times a daymontelukast 10 MG tabletCommonly known as: SINGULAIR Take 10 mg by mouth dailynitroglycerin 0.4 MG SL tabletCommonly known as: NITROSTAT Place 1 tablet (0.4 mg total) under the tongue every 5 (five) minutes as neededfor chest painnystatin [id number] UNIT/ML suspensionCommonly known as: MYCOSTATIN Take 200,000 Units by mouth 4 (four) times a dayomeprazole 40 MG capsuleCommonly known as: PriLOSEC Take 40 mg by mouth dailyOXYGEN-HELIUM IN @ 2 liters n/c at nightpitavastatin 2 MG TabsCommonly known as: LIVALO Take 2 mg by mouth dailypredniSONE 10 MG tabletCommonly known as: DELTASONE Take 20 mg by mouth dailyPROBIOTIC ADVANCED PO Take by mouthSPIRIVA RESPIMAT IN Inhale dailysulfamethoxazole-trimethoprim 800-160 MG per tabletCommonly known as: BACTRIM DS,SEPTRA DS Take 1 tablet by mouth 3 (three) times a week On Wednesday, Wednesday, and WednesdayTRAVATAN Z OP Administer 1 drop to both eyes dailyTudorza Pressair 400 MCG/ACT Aepb inhalerGeneric drug: aclidinium bromide Inhale 1 puff daily as neededzinc sulfate 220 (50 Zn) MG capsuleCommonly known as: ZINCATE Take 50 mg by mouth dailySTOP taking these medicationsfurosemide 20 MG tabletCommonly known as: LASIXWhere to Get Your MedicationsThese medications were sent to [facility] [place], [place] - [address] [place] [address] clopidogrel 75 MG tabletDischarge Exam:Vitals: Temp: [97.2 F-99 F] 99 FHeart Rate: [76-90] 90Resp: [10-21] 18BP: (110-138)/(59-70) 123/69Arterial Line BP: (108-121)/(54-60) 114/58General appearance: alert, appears stated age and cooperativeLungs: Diminished breath sounds. No wheezes, rales or rhonchi. No cough on exam.Heart: S1, S2 normal, no murmur, click, rub or gallopAbdomen: Soft, nontender, bowel sounds present.Extremities: No edema in lower extremities.Wound/Incision: BilateralDischarged Condition:goodDisposition: Home or Self CareFollow Up: Dr. Ramírez's office on 01/29Signature: Ting Desouza, LATOYADate: December 26, 2020Time: 12:47 PM Name Value Range Interpretation Code Description Data Ximena rce(s) Supporting Document(s) ID Date Data Source [id number] 12/28/2020 07:12:47 PM EDT [facility] [place] NT INFORMATIONPatient MRN Name Date of Age Gend*PT [id number] Minoo Velasquez III 1950 70 years M IPPT Location Admission Date/Time Visit ID Attending [id number] 12/25/20 1006 --- --- EPI ID CSN Admitting Pr ovider [id number] Shanique Ramírez MD([id number]) [place] [address] OPERATIVE REPORT OPNAME: MINOO VELASQUEZ III#: [id number] #: [id number] ADMISSION DATE: 12/25/2020OB: 1950 SEX: M PT TYPE: I CRDACCT #: [id number] CARE PHYSICIAN: SHANIQUE RUIZ OF OPERATION: 12/25/2020REOPERATIVE DIAGNOSES:1. Progressive symptomatic aortic valve stenosis.2. Aortic valve regurgitation.3. Chronic obstructive pulmonary disease.4. Coronary artery disease.5. Diabetes mellitus.6. Hypertension.7. Sleep apnea.POSTOPERATIVE DIAGNOSES:1. Progressive symptomatic aortic valve stenosis.2. Aortic valve regurgitation.3. Chronic obstructive pulmonary disease.4. Coronary artery disease.5. Diabetes mellitus.6. Hypertension.7. Sleep apnea.ANESTHESIA:General anesthesia.ATTENDING PLASTIC TILE LAYER:NATHEN [place] CARDIAC SURGEON:NELSY BellaROCEDURES:Transcatheter aortic valve replacement with #26 mm Kun 3 made by [employer], the serial number for the valve is [id number].DESCRIPTION OF PROCEDURE:After the patient was brought to the OR, prep and drape was done in routinefashion. Bilateral femoral access was obtained and the right was used fordelivery of the system, the left was for a pigtail cathete r. The twoPerclosures were applied in the right side. Then, the wire was exchangedand a Lunderquist wire was inserted. Dilator was used and finally eSheathfrom Burch was inserted. Heparin was given. Aortic valve was crossedthen exchanged for Confida wire and #29 mm Burch Kun 3 valve wasadvanced into the aortic position and under rapid pacing, the valve wasdeployed. This was done under rapid pacing. There was no perivalvularleak. There was no gradient. The protamine was started and deliverysystem was pulled back. The sheath was removed. Two Perclosures on theright side was used for se curing the site and the site was held. The leftside was secured with Angio- Seal. The sites were held and the patient wastransferred to Recovery Room. There was no bleeding, no hematoma, nochange of color or temperature of the leg. The patient was transferred toRecovery Room.JULIA Bella/NOEMY Job #: [id number] DOC #: [id number] Name Value Range Interpretation Code Description Data Ximena rce(s) Supporting Document(s) ID Date Data Source [id number] 12/26/2020 12:02:37 PM EDT [facility] Name Value Range Interpretation Code Description Data Ximena rce(s) Supporting Document(s) POC NOVA GLU 174 mg/dL (70-99) H [facility] [place] PERFORMED BY [facility] CLINICAL STAFF ID Date Data Source [id number] 12/26/2020 10:02:02 AM EDT [facility] Name Value Range Interpretation Code Description Data Ximena rce(s) Supporting Document(s) POC NOVA GLU 92 mg/dL (70-99) [facility] [place] [facility] BY [facility] CLINICAL STAFF ID Date Data Source [id number] 12/26/2020 10:49:34 AM EDT [facility] Name Value Range Interpretation Code Description Data Ximena rce(s) Supporting Document(s) SODIUM 138 mmol/L (136-145) [facility] POTASSIUM 4.0 mmol/L (3.6-5.2) [facility] CHLORIDE 102 mmol/L (100-108) [facility] CO2 29 mmol/L (22-31) [facility] ANION GAP 7 mmol/L (7-16) [facility] UREA NITROGEN 19 mg/dL (7-24) [facility] CREATININE 0.73 mg/dL (0.80-1.30) L [facility] BUN/CREAT RATIO 26.0 RATIO (10.0-20.0) H [facility] GLUCOSE 63 mg/dL (70-99) L [facility] CALCIUM 7.7 mg/dL (8.4-10.2) L [facility] GFR >60 ml/min/1.73m2 (>59) [facility] GFR ( AMER) >60 ml/min/1.73m2 (>59) [facility] GFR INTERPRETATION [facility] --NORMAL KIDNEY FUNCTION OR MILD DISEASE - GFR >OR= 60CHRONIC KIDNEY DISEASE - GFR 15 - 59RENAL FAILURE - GFR <15 Est. GFR calculation based on the MDRDstudy equation, which assumes a steadystate for creatinine. Est. GFR should notbe used for medication dosing. ID Date Data Source [id number] 12/26/2020 10:13:26 AM EDT [facility] Name Value Range Interpretation Code Description Data Ximena rce(s) Supporting Document(s) WBC 11.3 10*3/uL (4.1-11.0) H [facility] RBC 3.55 10*6/uL (4.60-6.10) L [facility] HGB 11.5 g/dL (13.5-18.0) L [facility] HCT 34.3 % (41.0-53.0) L [facility] MCV 96.5 fL (80.0-95.0) H [facility] MCH 32.5 pg (27.0-32.0) H [facility] MCHC 33.6 g/dL (32.0-36.0) [facility] RDW 14.6 % (10.5-14.5) H [facility] PLT 223 10*3/uL (150-450) [facility] MPV 7.4 fL (7.1-10.7) [facility] ID Date Data Source [id number] 12/25/2020 11:00:46 PM EDT [facility] Name Value Range Interpretation Code Description Data Ximena rce(s) Supporting Document(s) POC NOVA GLU 106 mg/dL (70-99) H [facility] [place] [facility] CLINICAL STAFF ID Date Data Source [id number] 12/25/2020 03:23:03 PM EDT [address] [address]Apvwyvz Name: MINOO CHAVISSHAWNOB: 1950Sex: MOrdering Provider: TING LORENZANAuthorizing Prov: TING MACKETTReferring Provider: Procedure Performed: XR CHEST PORTABLEExam Date: 12/25/2020 15:09MRN: [id number] Number: [id number] Class: InpatientAccount #: [id number] for Exam: Post TAVR procedureTechnique: AP portable view obtained.Comparison: December 31, 2009 portable chest x-ray demonstrating an aortic valve replacement.Findings: There is a new aortic valve cage prosthesis. There is increased atelectasis at the left lung base. There is increased atelectasis at the right lung base. There are more prominent vessels bilaterally. There is no pneumothorax. Heart size remains slightly enlarged. There is a right jugular temporary external to internal pacemaker terminating in the expected region of the apex of the right ventricle. There is a right jugular Cordis.IMPRESSION: Mild cardiomegaly. Increased bibasi lar atelectasis with no pneumothorax. Increased size vasculature bilaterally. New aortic valve cage prosthesis. Follow-up should be determined clinically.Report electronically signed by: PAMELA MORAES On 12/25/2020 3:23 PMWorkstation ID: [id number] Name Value Range Interpretation Code Description Data Ximena rce(s) Supporting Document(s) ID Date Data Source [id number] 12/25/2020 03:00:55 PM EDT [facility] Name Value Range Interpretation Code Description Data Ximena rce(s) Supporting Document(s) EKG [facility] [id number] jb2 [file] ID Date Data Source [id number] 12/25/2020 08:16:35 PM EDT [facility] Name Value Range Interpretation Code Description Data Ximena rce(s) Supporting Document(s) WBC 14.2 10*3/uL (4.1-11.0) H [facility] RBC 3.92 10*6/uL (4.60-6.10) L [facility] HGB 12.9 g/dL (13.5-18.0) L [facility] HCT 37.8 % (41.0-53.0) L [facility] MCV 96.5 fL (80.0-95.0) H [facility] MCH 33.0 pg (27.0-32.0) H [facility] MCHC 34.2 g/dL (32.0-36.0) [facility] RDW 14.7 % (10.5-14.5) H [facility] PLT 240 10*3/uL (150-450) [facility] MPV 8.0 fL (7.1-10.7) [facility] ID Date Data Source [id number] 12/25/2020 04:34:52 PM EDT [facility] Name Value Range Interpretation Code Description Data Ximena rce(s) Supporting Document(s) SODIUM 136 mmol/L (136-145) [facility] POTASSIUM 3.9 mmol/L (3.6-5.2) [facility] CHLORIDE 103 mmol/L (100-108) [facility] CO2 25 mmol/L (22-31) [facility] ANION GAP 8 mmol/L (7-16) [facility] UREA NITROGEN 24 mg/dL (7-24) [facility] CREATININE 0.74 mg/dL (0.80-1.30) L [facility] BUN/CREAT RATIO 32.4 RATIO (10.0-20.0) H [facility] GLUCOSE 179 mg/dL (70-99) H [facility] CALCIUM 8.8 mg/dL (8.4-10.2) [facility] GFR >60 ml/min/1.73m2 (>59) [facility] GFR ( AMER) >60 ml/min/1.73m2 (>59) [facility] GFR INTERPRETATION [facility] --NORMAL KIDNEY FUNCTION OR MILD DISEASE - GFR >OR= 60CHRONIC KIDNEY DISEASE - GFR 15 - 59RENAL FAILURE - GFR <15 Est. GFR calculation based on the MDRDstudy equation, which assumes a steadystate for creatinine. Est. GFR should notbe used for medication dosing. ID Date Data Source [id number] 12/25/2020 04:34:52 PM EDT [facility] Name Value Range Interpretation Code Description Data Ximena rce(s) Supporting Document(s) MAGNESIUM 3.0 mg/dL (1.7-2.4) H [facility] ID Date Data Source [id number] 12/25/2020 04:34:17 PM EDT [facility] Name Value Range Interpretation Code Description Data Ximena rce(s) Supporting Document(s) HEMOGLOBIN A1C @ 6.8 % (4.0-6.0) H [facility] Performed using Siemens [place] immunoassa y.Care must be taken when interpreting UgG3zqlrgrst in patients with a hemoglobin variantor decreased erythrocyte lifespan. Values 5.7 - 6.4% suggest prediabetes.Values >=6.5% are diagnostic for diabetes.REFERENCE: DIABETES CARE 2018: 41(S13-S27).PERFORMED AT [address] [place] [id number] EST AVERAGE GLUCOSE 148 mg/dL [facility] ID Date Data Source [id number] 12/25/2020 04:14:05 PM EDT [facility] Name Value Range Interpretation Code Description Data Ximena rce(s) Supporting Document(s) PT 10.6 s (9.2-11.9) [facility] PERFORMED AT [address] [place] [address] Y [address] INR 1.01 [facility] SUGGESTED THERAPEUTIC RANGES USING INR F ORSTABILIZED ANTICOAGULATED PATIENTS:STANDARD DOSE THERAPY INR 2.0-3.0 DVT, PE, PREVENT DVT OR EMBOLISMHIGH DOSE THERAPY INR 2.5-3.5 PREVENT EMBOLISM FROM MECHANICAL HEART VALVE ID Date Data Source [id number] 12/25/2020 02:42:40 PM EDT [facility] Name Value Range Interpretation Code Description Data Ximena rce(s) Supporting Document(s) POC NOVA GLU 191 mg/dL (70-99) H [facility] [place] [facility]FOR[facility] BY [facility] CLINICAL STAFF ID Date Data Source [id number] 12/25/2020 02:33:27 PM EDT [facility] [place] NT INFORMATIONPatient MRN Name Date of Age Gend*PT [id number] Minoo Velasquez III 1950 70 years M IPPT Location Admission Date/Time Visit ID [facility] --- Shanique Rmaírez MD([id number]) EPI ID CSN Admitting Provider [id number] Shanique Ramírez MD([id number])TAVR Procedure NotePatient Name: Minoo Velasquez III of : 1950 Age 70 yearsPrimary Physician: MARGA DANIELS PCP Ybsb of Surgery: 12/25/2020 [employer] Accounting Manager NELSY [place]re-Diagnosis: Severe ASProcedure: TAVRAssistant(s): Dr. Sorensen/InterventionThe patient was brought to the hybrid room. Both yue ins were prepped and drapedin a sterile fashion. Both femoral arteries were cannulated with a 6 Frenchsheath. The right side was preclosed with 2 Perclose devices. The sheath wasthen upsized to an Burch E sheath over a stiff wire. There was someperipheral arterial disease of the common iliac artery which provided someresistance but it was eventually possible to cross through the lesion with thesheath. The valve could not be crossed with a JR4 diagnostic catheter so Iswitched to an AR-2 catheter. I was able to cross through the valve with theAR-2 catheter with moderate difficulty. The catheter then did not want to crossthrough the valve at first but with some manipulation I was eventually able tocross through the valve. Given the severity of the prosthetic stenosis Ielected to predilate the valve with a 22 mm balloon which was inflated whilerapid pacing. I then advanced a 29 mm Burch KUN 3 valve to the desiredlocation and deployed it while rapid pacing. Subsequent angiography rev ealedsome mild perivalvular leak. I elected to crack the valve with a 26 mm Trueballoon. This, again, was performed under rapid pacing. The final angiographicresult was excellent with no perivalvular leak and no gradient. The femoralaccess site was closed with the 2 Perclose devices with excellent hemostasisachieved. The left site was closed with an Angio-Seal. There were nocomplications. The case was discussed with the patient's .Plan:ObservationShanique Ramírez MD12/25/2020 2:28 PM Name Value Range Interpretation Code Description Data Ximena rce(s) Supporting Document(s) ID Date Data Source [id number] 12/25/2020 02:05:59 PM EDT [facility] Name Value Range Interpretation Code Description Data Ximena rce(s) Supporting Document(s) &PDF [facility] YDTKIw7oIeMTTaDe93/NLKjzBZGlk6IgZDcxNOb5DMnuVTXnG3DuhEnhLXEIQmUeCkXBUV6SYFSGEZvK hdG [file] ICAgICAgICAgICAgICAgICAgICAgICAgICAgICAgIC AgICAgICAgICAgICAgICAgICAgICAgICAgICAgICAgICAgICAgICAgICAgICAgICAgICAgICAgICAgIC JvYVHrQJ8DUNAlNIDbILPtJSOdYYHvTJOiENVzJSQxFFIfTRYcICRcVDUiNIAsRYUyVYXmNDXnJIEpWK AgICAgICAgICAgICAgICAgICAgICAgICAgICAgICAg AIZcIRVhGAOeCCKrJCMeFP3LOLGzKXUhQNEcIGNtOFEqFHVnGAHpLYAoDWViZKZjCWDfRVBrPZLyGACl VMBmLCSjNLOvZLQeOPMiQQWfSBPfRBMoSZRlYUQcCDQdYSEaXINxBILtGLXaJQScOHChRKNiDWHoDF2Q ICAgICAgICAgICAgICAgICAgICAgICAgICAgICAgIC AgICAgICAgICAgICAgICAgICAgICAgICAgICAgICAgICAgICAgICAgICAgICAgICAgICAgICAgICAgIC KmHKOfGARxWG6YMILgRXRbEPZqNVIeKZUaKNMmTBPyVFVkPRHqATAkPEKcMSAcXMJzAOGfXDEyZQCuKD AgICAgICAgICAgICAgICAgICAgICAgICAgICAgICAg JYTbLIIgXOQuOQJgVGVrIMClVS8EHQQcISMgXXAmIUPaHXXgOFIxOFFxDYNdGPEoISYiGJKrOAXeWWWc ICAgICAgICAgICAgICAgICAgICAgICAgICAgICAgICAgICAgICAgICAgICAgICAgICAgICAgICAgICAg QP4XKUUdMFQpEWPlSIBhKLPiYWPhIMQyFJUgBQMrRC AgICAgICAgICAgICAgICAgICAgICAgICAgICAgICAgICAgICAgICAgICAgICAgICAgICAgICAgICAgIC NsFLBdXFXgWQJhCE6HYOQlAQAoDDPuSISqTSSlMFCsWQXnSSKhJDXoIUVsKMCrDAKaUGIcORYoDPNkSJ AgICAgICAgICAgICAgICAgICAgICAgICAgICAgICAg VZRoRSUyIWBdECUzZOTwVCKcVPXbJJ6YAANtGYAlDEPqXDKjTMDqFPTaUDHjUTRhSUEmCIHoAXTnWRIm ICAgICAgICAgICAgICAgICAgICAgICAgICAgICAgICAgICAgICAgICAgICAgICAgICAgICAgICAgICAg PJTsIR0GNZZhJPItLAZxJDJkHYQzLOVuQNMcMCQgOX AgICAgICAgICAgICAgICAgICAgICAgICAgICAgICAgICAgICAgICAgICAgICAgICAgICAgICAgICAgIC TlBIQlQXYvWBXgUVStYA2PDI74cJIgl0I9DQBkNG3uige/Nv6SKCnxvvBomXYjEI2XFwYnOS9msv9VZl DqNC2hfx0AKLxONaJtH1C8sHIiEMRaBSPRIiTeP70e DIueNs77ZPgyNEOtQpAwQAy3Sd3SPeBmO9juAPCnVtZ9HQLmOxTvZZhuGX8Vu8ZatAFeTKs+Wz4LVE0i a3UzEEgpFVBiHT8vpz4YOPrONmLeC0V5nCLfK3G2DZolHu1ILBDiYFFfZJzzMAZOUMpwQR2HYO0etlH1 DZ9EbAJoDSXkPIUfkZKjJRv6P05quSYjTFnhRC9SEX A+Concha+Ku0NMRXaVPNjFFDaHwDuUXTAElNoW70xxBBdRRUzTJW5GBXjKj8ABARaQ1CugnRhxFieylZzBB PdGNTKCN3NEMlfmqCqxJJhpUgwWC24cIsuTC6XHk3TEtDrZT2nfd5XdXXuGa7EXNKnHQ0ABODlEYNgGX KyZDY4TCVgUwCmHZpqERYtYWCsTUZ3WVIxQRYcWV6C VxZpIFHmQRJ0ZWNuURHtCZGuqi5RTUSfCTUaMhC7QKVpAGVbAZFmCSumIGLyMQNxMZm1NPKkGBTsAG1N XeCsLUOvOWHtNTOrKMEjRCClzi7KZZMfPVAyJtBeWMAkDGPsWDJzGBpbPGLxSOGbPyK1EILvIYVlYR0K QyFiJBSkYIA5FaZeRBDeORNpce8WOPVqNRBvHkI1QO KbYDRdAROlSNyqVBGvGUW4KZe1YGZeTWQoCC4KPcUpJWBrKVG6GGWlXHZaLOQpke7BRKRxKYMbMQg4Rr OkYMKkSAKkDSorYGEeYGR9PIC7OAAmYGSuFD3PAzBjYIMxIGHrVXLrLGFtHIPgji5QZFHgAMItAbJoAJ EmZKZcEWWhNIqjHTYvHGDjYJM1WFVvMLYzWQ6LJfRw STCvQCF0TmRrCLVpXOXcwf3XUOUnJOFkUyPeFBLgHKQiXJIkHYebOXUhIKR9EbT3YSKkRGIoAW5GRtXl HGzfDNOWBut2IYonK5p1HZPbNZ9BY6Obq0PmWLooNSMVVBzoGQ5relAhGHKbVz3VO3yBUgxzWpluCBGg HyDhHdV4A6MmCrQhRJAoVBL3NLOpVkbjOR8xLCZ0JH W5QJZ1VACsFWntRhC4QwAnNVX9YGJyIOP9ZwSrEyUjTB9RHn1YYwQ2NTM3nGGuTw4TGFq6CcNILjDeDJ 9GDQo= ID Date Data Source [id number] 12/25/2020 03:12:40 PM EDT [facility] Name Value Range Interpretation Code Description Data Ximena rce(s) Supporting Document(s) POC ACT 246 s (80-140) H [facility]FOR[facility] BY [facility] CLINICAL STAFF ID Date Data Source [id number] 12/25/2020 01:26:41 PM EDT [facility] Name Value Range Interpretation Code Description Data Ximena rce(s) Supporting Document(s) POC TEMPERATURE [facility] 37.0C POC SOURCE [facility] POC FIO2 100 [facility] CP BYPASS [facility] POC PH 7.31 pH (7.35-7.45) L [facility] POC PCO2 61.3 MMHG (32.0-48.0) H [facility] POC PO2 519 MMHG (83-108) H [facility] POC SAT O2 100 % (95-99) H [facility] POC BASE EXCESS 3 MMOL/L (0-3) [facility] POC HCO3 30.7 MMOL/L (21.0-29.0) H [facility] POC TOTAL CO2 33 MMOL/L (23.0-32.0) H [facility] CLINICAL STAFF POC HCT 39 % (41.0-53.0) L [facility] POC SODIUM 133 MMOL/L (136-145) L [facility] POC POTASSIUM 3.8 MMOL/L (3.6-5.2) [facility] POC IONIZED CALCIUM 4.4 MG/DL (4.6-5.3) L [facility] POC GLU 209 MG/DL (70-99) H [facility] PER[facility] ID Date Data Source [id number] 12/25/2020 01:26:16 PM EDT [facility] Name Value Range Interpretation Code Description Data Ximena rce(s) Supporting Document(s) POC ACT 114 s (80-140) [facility] CLINICAL STAFF ID Date Data Source [id number] 12/25/2020 01:19:49 PM EDT [facility] [place] NT INFORMATIONPatient MRN Name Date of Age Gend*PT [id number] Minoo Velasquez III 1950 70 years M IPPT Location Admission Date/Time Visit ID Attending Provider --- --- --- --- EPI ID CSN Admitting Pr ovider [id number] ---Introducer AdditionsPatient location during procedure: CV hybrid roomIndications for introducer addition: Temporary pacingStaffingPerformed by: Terrence Pop CRNAApproved by: rAturo Ocasio, MDCompleted: patient identified, risks and benefits discussed, surgical consentobtained, anesthesia consent obtained, monitors and equipment checked, pre-opevaluation completed, timeout performed, patient was prepped and draped in usualsterile fashion,Introducer AdditionsIntroducer addition: Transvenous PacerInsertion depth (cm): 35Introducer placed: At time of introducer additionPacing wires procedure: Pacing wire was introduced, Pacing box set at VOO andWire was advanced using balloon flow directed method until ventricular capturewas notedType of pacing wires: VentricularPacing box rate: 100Pacing threshold obtained at: 1AssessmentSecurement method: securement devicePlacement verification: ventricular captureAssessment: tolerated well, no changes to vital signs and catheter flushed [id number] NS Name Value Range Interpretation Code Description Data Ximena rce(s) Supporting Document(s) ID Date Data Source [id number] 12/25/2020 01:19:19 PM EDT [facility] NT INFORMATIONPatient MRN Name Date of Age Gend*PT [id number] Minoo Velasquez E III 1950 70 years M IPPT Location Admission Date/Time Visit ID Attending Provider --- --- --- --- EPI ID CSN Admitting Pr ovider [id number] ---Central Line InsertionPatient location during procedure: CV hybrid roomIndications for central line: temporary pacingStaffingPerformed by: Terrence Pop CRNAApproved by: Arturo Ocasio, MDCompleted: patient identified, risks and benefits discussed, surgical consentobtained, anesthesia consent obtained, monitors and equipment checked, pre-opevaluation completed, timeout performed, patient was prepped and draped in usualsterile fashion,Central LineCatheter type: IntroducerCVC type: non-tunnelledNeedle gauge: 18 GCatheter size: 5 FrSite prep: chlorhexidine gluconateLaterality: rightLocation: internal jugularTechnique: CVC inserted using ultrasound guidanceProcedure: Catheter inserted and manometry was performed, Guidewire passedthrough the catheter, No arrythmias and Catheter was withdrawnAssessmentSecurement method: SuturedPlacement verification: UltrasoundAssessment: tolerated well, no changes to vital signs and catheter flushed [id number] NS Name Value Range Interpretation Code Description Data Ximena rce(s) Supporting Document(s) ID Date Data Source [id number] 12/25/2020 01:18:58 PM EDT [facility] NT INFORMATIONPatient MRN Name Date of Age Gend*PT [id number] Minoo Velasquez E III 1950 70 years M IPPT Location Admission Date/Time Visit ID Attending Provider --- --- --- --- EPI ID CSN Admitting Pr ovid [id number] ---Arterial Line PlacementPatient location during procedure: CV hybrid roomIndications for arterial line: hemodynamic monitoringStaffingPerformed by: Terrence Pop CRNAApproved by: CODY Parsonompleted: patient identified, risks and benefits discussed, surgical consentobtained, anesthesia consent obtained, monitors and equipment checked, pre-opevaluation completed, timeout performed, patient was prepped and draped in usualsterile fashion,Arterial Line InsertionSite prep: chlorhexidineAnesthesia: local infiltrationLocal anesthetic: lidocaine 1% without epinephrineLaterality: rightLocation: radial arteryNeedle gauge: 18 GTechnique: ultrasound guidedNumber of attempts: 1AssessmentSutured: noDressing: dressing appliedPatient tolerance: tolerated well Name Value Range Interpretation Code Description Data Ximena rce(s) Supporting Document(s) ID Date Data Source [id number] 12/25/2020 01:18:43 PM [facility]T [facility] [place] INFORMATIONPatient MRN Name Date of Age Gend*PT [id number] Minoo Velasquez III 1950 70 years M IPPT Location Admission Date/Time Visit ID Attending Provider --- --- --- --- EPI ID [id number] ---AirwayPatient location during procedure: CV hybrid roomUrgency: electiveDifficult airway: noAdvanced airway equipment used: noStaffingPerformed by: Arturo Ocasio MDIndications and Patient ConditionIndications for airway management: anesthesiaPreoxygenated: yesPatient position: sniffingIn-line stabilization: noMask ventilation: 0 - not attemptedFinal Airway/ApproachesFinal airway type: ETTNumber of attempts at final approach: 1Number of other approaches attempted: 0Final Airway DetailsFinal ETT airway: ETT - singleCuffed: yesTechnique used for successful ETT placement: direct laryngoscopyCricoid pressure: noRSI: noInsertion site: oralBlade type/size: Torres 2ETT size: 7.5 mmMeasured from: lipsETT to lips: 22 cmPlacement verified by: chest auscultation and + [id number]: equal breath sounds bilateral and CTAGrade view: grade I - full view of glottis Name Value Range Interpretation Code Description Data Ximena rce(s) Supporting Document(s) ID Date Data Source [id number] 12/25/2020 10:43:38 AM EDT [facility] Name Value Range Interpretation Code Description Data Ximena rce(s) Supporting Document(s) POC NOVA GLU 153 mg/dL (70-99) H [facility] [place] PERFORMED BY [facility] CLINICAL STAFF ID Date Data Source [id number] 12/27/2020 12:35:45 AM EDT [facility] SPEC EXP DATE 12/26/2020TEST ING SITE PERFORMED AT [address] [place] [address] [id number] NUMBER [id number] COMPONENT TYPE LEUKOPOOR RED CELLSUNIT DIVISION 00STATUS OF UNIT REL FROM ALLOCTRANSFUSION STATUS OK TO TRANSFUSECROSSMATCH RESULT COMPATIBLEUNIT NUMBER [id number] COMPONENT TYPE LEUKOPOOR RED CELLSUNIT DIVISION 00STATUS OF UNIT REL FROM ALLOCTRANSFUSION STATUS OK TO TRANSFUSECROSSMATCH RESULT COMPATIBLEUNIT NUMBER [id number] COMPONENT TYPE LEUKOPOOR RED CELLSUNIT DIVISION 00STATUS OF UNIT REL FROM ALLOCTRANSFUSION STATUS OK TO TRANSFUSECROSSMATCH RESULT COMPATIBLEUNIT NUMBER [id number] COMPONENT TYPE LEUKOPOOR RED CELLSUNIT DIVISION 00STATUS OF UNIT REL FROM ALLOCTRANSFUSION STATUS OK TO TRANSFUSECROSSMATCH RESULT COMPATIBLE Name Value Range Interpretation Code Description Data Ximena rce(s) Supporting Document(s) TRANSFUSE RED CELLS [facility] TESTING SITE PERFORMED AT [address] [place] [address] [id number] ID Date Data Source [id number] 12/23/2020 03:54:03 PM EDT [facility] [place] INFORMATIONPatient MRN Name Date of Age Gend*PT [id number] Minoo Velasquez III 1950 70 years M OPPT Location Admission Date/Time Visit ID Attending Provider --- --- --- Shanique Ramírez MD([id number]) EPI ID CSN Admitting Provider [id number] ---HISTORY PHYSICALName: Minoo Velasquez III : 1950 Sex: male Care Provider: Rajiv DANIELS Physician: Dr. RamírezInformant: The patient who is reliable.Chief Complaint: "I need surgery."HISTORY OF PRESENT ILLNESS: 70 years old white male reports a history of MiniAVR with No. 25 magna ease and femorofemoral cannulation on December 24, 2009.Patient has been followed by his hardwood flooring specialist Dr. Ramírez. He reports shortnessof breath at rest and dyspnea on exertion-such as with eating or talking. Hehas fatigue. He reports chest pressure and burning. He reports it occurs at afrequency of approximately every other day. Pressure/burning occurs withexertion or at night. It is relieved with 1-1/2 hours of rest. Patientreported to emergency room and was advised further cardiac evaluation. Heunderwent echo on 11/23/2020. Echo finds severe aortic stenosis. Mean aorticvalve gradient 49 mmHg, aortic valve area 0.71 cm . He had cardiaccatheterization on 11/27/2020. Catheterization Ost LAD to Prox LAD lesion is 15%stenosed. Mid RCA lesion is 50% stenosed; Dist RCA lesion is 30% stenosed; MidCx lesion is 50% stenosed; 1st Diag lesion is 50% stenosed; Mid LAD lesion is50% stenosed; Prox RCA lesion is 40% stenosed.The patient met with Dr. Ramírez, options were discussed and they have elected tounder go transcatheter aortic valve implant femoral on 12/25/2020.PAST MEDICAL HISTORY:Past Medical History:Diagnosis Date Anxiety Aortic valve stenosis 11/26/2020 Added automatically from request for surgery [id number] Cardiac murmur CHF (congestive heart failure) COPD (chronic obstructive pulmonary disease) 2 L NC O2 Coronary artery disease Followed by Dr Ramírez Depression Diabetes mellitus, type II Disease of thyroid gland Diverticulitis Emphysema GI bleed Hepatitis 1969 Homograft cardiac valve stenosis Hypertension Myocardial infarction 03/2008 Pneumothorax Following aortic valve surgery 2009 Sleep apnea 2L NC at night AIRVO 2 Spinal stenosis Stable angina 11/26/2020 Added automatically from request for surgery [id number] Stroke seen on imaging per patient Systolic heart failure 11/26/2020 Added automatically from request for surgery [id number] SURGICAL HISTORY:Past Surgical History:Procedure Laterality Date ANGIOPLASTY AORTIC VALVE REPLACEMENT 12/24/2009 Mini AVR with No. 25 magna ease and femorofemoral cannulation CARDIAC CATHETERIZATION 07/13/2012 CARDIAC CATHETERIZATION N/A 10/24/2018 Procedure: Cardiac catheterization; Surgeon: Shanique Ramírez MD; Laterality:N/A; CARDIAC CATHETERIZATION N/A 10/24/2018 Procedure: Angioplasty-coronary; Surgeon: Shanique Ramírez MD; Laterality:N/A; CARDIAC CATHETERIZATION N/A 11/27/2020 Procedure: Left heart cath; Surgeon: Shanique Ramírez MD; Laterality: N/A; CARDIAC CATHETERIZATION N/A 11/27/2020 Procedure: Angioplasty-coronary; Surgeon: Shanique Ramírez MD; Laterality:N/A; CATARACT EXTRACTION W/ INTRAOCULAR LENS IMPLANT, BILATERAL CORONARY STENT PLACEMENT 12 stents ECHOCARDIOGRAM TRANSESOPHAGEAL N/A 11/27/2020 Procedure: ECHO TRANSESOPHAGEAL; Surgeon: Callie Enamorado MD; Laterality: N/A;scheduled with Dr. Enamorado per Dr. Jones LUMBAR DISCECTOMY L3 ,4, 5 SINUS SURGERY VASCULAR STENT Right Lower extremity VASCULAR SURGERY Left lower extremityALLERGIES:AllergiesAllergen Reactions Aspirin Other (See Comments) Rectal bleeding Fexofenadine Other (See Comments) Reaction: SHORT OF BREATH Comment: 05/09/2008 @ 1447- PER PATIENT [facility]- PATIENT HAS BEEN TAKING BENADRYL W/O PROBLEM..BETTY Levofloxacin Reaction: LEG CRAMPS Pravastatin Other (See Comments) headaches Quinine Reaction: HIVES Comment: FACIAL SWELLING Rosuvastatin Reaction: MUSCLE ACHESMEDICATIONS:Prior to Admission medicationsMedication Sig Start Date End Date Taking? Authorizing Provideraclidinium bromide (TUDORZA PRESSAIR) 400 MCG/ACT AEPB inhaler Inhale 1 puffdaily as needed Historical Provider, Angielbuterol (PROVENTIL) (2.5 MG/3ML) 0.083% nebulizer solution Take 2.5 mg bynebulization 4 (four) times a d ay Historical Provider, Angiescorbic acid (VITAMIN C) 500 MG tablet Take 1,000 mg by mouth dailyHistorical Provider, OCC-Xafcucd-M TABS Take 1 tablet by mouth daily Historical Provider, Brimonidine Tartrate (ALPHAGAN P OP) Administer 1 drop to both eyes 2 (two)times a day Historical Provider, budesonide (PULMICORT) 0.5 MG/2ML nebulizer solution Take 0.5 mg by nebulizationevery 12 (twelve) hours Historical Provider, CODYalcium Citrate-Vitamin D3 315-6.25 MG- MCG TABS Take by mouth 2 (two) times aday Historical Provider, Codyefdinir (OMNICEF) 300 MG capsule Take 300 mg by mouth 2 (two) times a day Fortwo weeks, then off for two weeks, then alternate with ciprofloxacinHistorical Provider, Codyholecalciferol (VITAMIN D3) 1000 UNITS capsule Take 2,000 Units by mouth dailyHistorical Provider, Codyiprofloxacin (CIPRO) 500 MG tablet Take 500 mg by mouth 2 (two) times a day Fortwo weeks, then off for two weeks. then alternating with omnicef HistoricalProvider, Codyitalopram (CELEXA) 20 MG tablet Take 20 mg by mouth nightly HistoricalProvider, Codylopidogrel (PLAVIX) 75 MG tablet Take 1 tablet (75 mg total) by mouth dailyPatient taking differently: Take 75 mg by mouth nightly 12/10/20 Renae Lucas PAdiltiazem (DILACOR XR) 240 MG 24 hr capsule Take 240 mg by mouth dailyHistorical Provider, Empagliflozin 25 MG TABS Take 25 mg by mouth daily Historical ProviderMDfamotidine (PEPCID) 40 MG tablet Take 40 mg by mouth nightly HistoricalProvider, ferrous sulfate 325 (65 FE) MG tablet Take 325 mg by mouth 2 (two) times a daywith meals Historical Provider, fluconazole (DIFLUCAN) 200 MG tablet Take 200 mg by mouth daily For 5 days thenonce a week Historical Provider, folic acid (FOLVITE) 1 MG tablet Take 1 mg by mouth daily HistoricalProviderMDformoterol (PERFOROMIST) 20 MCG/2ML nebulizer solution Take 20 mcg bynebulization 2 (two) times a day Historical ProviderMDfurosemide (LASIX) 20 MG tablet Take 1 tablet (20 mg total) by mouth dailyPatient taking differently: Take 30 mg by mouth daily 12/10/20 Renae Lucas PAGUAIFENESIN 1200 PO Take 1,200 mg by mouth 2 (two) times a day HistoricalProvider, ibandronate (BONIVA) 150 MG tablet Take 150 mg by mouth every 30 (thirty) days08/01/17 Historical Provider, Immune Globulin, Human, 4 GM/20ML SOLN Inject 14 mg under the skin once a weekOn Wednesday Historical Provider, ipratropium (ATROVENT) 0.02 % nebulizer solution Take 2.5 mL by nebulization 4(four) times a day 06/25/16 Historical Provider, KeyonnaetFORMIN (GLUCOPHAGE) 500 MG tablet Take 500 mg by mouth 3 (three) times a dayHistorical Provider, Keyonnaontelukast (SINGULAIR) 10 MG tablet Take 10 mg by mouth daily 09/15/17Historical Provider, nitroglycerin (NITROSTAT) 0.[address] 1 tablet (0.4 mg total) underthe tongue every 5 (five) minutes as needed for chest pain 11/25/20 Renae Lucas PAnystatin (MYCOSTATIN) [id number] UNIT/ML suspension Take 200,000 Units by mouth 4(four) times a day 10/23/17 Historical Provider, omeprazole (PRILOSEC) 40 MG capsule Take 40 mg by mouth daily HistoricalProvider, OXYGEN-HELIUM IN @ 2 liters n/c at night Historical Provider, Nelsyitavastatin (LIVALO) 2 MG TABS Take 2 mg by mouth daily Historical Provider,NelsyredniSONE (DELTASONE) 10 MG tablet Take 20 mg by mouth daily HistoricalProvider, NELSYrobiotic Product (PROBIOTIC ADVANCED PO) Take by mouth Historical Provider,Carlosulfamethoxazole-trimethoprim (BACTRIM DS,SEPTRA DS) 800-160 MG per tablet Take1 tablet by mouth 3 (three) times a week On Wednesday, Wednesday, and WednesdayHistorical Provider, Tiotropium [place] Monohy drate (SPIRIVA RESPIMAT IN) Inhale daily HistoricalProvider, Travoprost (TRAVATAN Z OP) Administer 1 drop to both eyes daily HistoricalProvider, zinc sulfate (ZINCATE) 220 (50 Zn) MG capsule Take 50 mg by mouth dailyHistorical Provider, Angieclidinium bromide (TUDORZA) 400 MCG/ACT AEPB inhaler Inhale 1 puff 2 (two)times a day 12/23/20 Historical Provider, formoterol (PERFOROMIST) 20 MCG/2ML nebulizer solution 1 neb twice a daydx:J44.9 12/23/20 Historical Provider, ibandronate (BONIVA) 150 MG tablet Take 150 mg by mouth every 30 (thirty) days12/23/20 Historical Provider, CARLOSocial HistoryTobacco Use Smoking status: Former Smoker Packs/day: 1.00 Years: 30.00 Pack years: 30.00 Types: Cigarettes, Pipe, Cigars Quit date: 11/24/2009 Years since quittin.0 Smokeless tobacco: Never UsedVaping Use Vaping Use: Never usedSubstance Use Topics Alcohol use: No Drug use: NoFamily HistoryProblem Relation Age of Onset Myocardial Infarction (DC) Father Healthy, No Significant History Mother Malig Hyperthermia Neg HxREVIEW OF SYSTEMS:Constitution: Weight stable. Denies fever or chills. Caffeine intake: 10cups/day. He has fatigue.HEENT: He wears glasses. Denies any blurred vision, double vision, dizziness,tinnitus, dysphagia or headaches.Respiratory: Reports shortness of breath at rest, he is getting dyspnea withminimal exertion such as talking or eating. Denies cough, yellow sputumproduction or wheezing.Cardiovascular: Reports chest pain and burning. Denies any paroxysmal nocturnaldyspnea or orthopnea.Muscle/Skeletal System: Denies any muscle ache, joint ache or weakness.Neurologic: Denies any numbness, tingling, tremors or syncope.GI: Denies any nausea, vomiting, diarrhea, constipation or melena.: Denies any dysuria, hematuria or nocturia.Endocrine: He checks blood sugars 3 times daily, am fasting values range from 98to 160. Denies polyuria, polydipsia or polyphagia. Denies any heat or coldintolerance or night sweats.Hematology: Denies any bleeding or bruising tendencies.DNR Status: Full Code per the patient.HCP: Health care proxy and living will per patient.PHYSICAL EXAM:General: He is a 70 years old, pleasant white male, in no acute distress at timeof examination. Vitals on arrival to the office are BP 98/62 (BP Location: Leftupper arm, Patient Position: Sitting) | Pulse 88 | Ht 1.727 m (5' 8") | Wt62.6 kg (138 lb) | SpO2 92% | BMI 20.98 kg/m Body mass index is 20.98kg/m ..Skin is pink warm and dry.HEENT: He is normocephalic, atraumatic. [place] conjunctivae. Anicteric sclerae.Pupils are equal, round, reactive to light and accommodation. Extraocularmovements are intact. Ears: Without drainage or lesion. Mouth: Thrush. Fullupper and lower dentures. He has a grade 3 airway. Neck is supple midlinewithout cervical adenopathy. There is no tonsillo pharyngeal congestion. Mucousmembranes are moist. There are no oral lesions. No jugular distention. Nocarotid bruit.CHEST/BREAST: A/P less than transverse. Br east exam declined.LUNGS: Clear to auscultation. No wheezes, rhonchi or crackles.HEART: Rate rhythm regular. No murmur.ABDOMEN: Abdominal hernia. Bowel sounds positive times four. Soft, non tender.No rebound tenderness. No hepatosplenomegaly. Negative CVAT.GENITAL/RECTAL: Deferred.MUSCLE/SKELETAL: Strength is 5/5. [employer] are equal.NEUROLOGICALLY: Cranial nerves II through XII are grossly intact.VASCULAR: Pulses are left < right. No edema.Anesthesia complications: DeniesSteroid use: He has received recent oral steroid therapy for three weeks orgreater within the last 3 months.CSHA Frailty Scale :: 6/10 Moderately Frail (need help with all outsideactivities and with keeping house. Inside, they often have problems with stairsand need help with bathing and might need minimal assistance (cuing, standby)with dressing).Stop Bang Questionnaire - Total Score:IMPRESSION and PLAN:Primary Diagnosis: Nonrheumatic aortic valve stenosis. Surgery as per .Secondary Diagnosis and Plan:1. Hy pertension Continuation of prior to admission anti-hypertensivemedications unless precluded by clinical status.2. Congestive heart failure unspecified Monitor daily fluid status (Input/ Output totals) Adjust IV fluid rates based on fluid status PRN diuretics tooptimize fluid status Continuation of home oral diuretics when clinicallyappropriate3. COPD Monitor oxygen saturation Albuterol nebulizer as needed Continue homemedications when clinically appropriate4. Sleep apnea Obstructive Patient to continue with use of home CPAP /BiPAP5. Diabetes Type 2 Routine blood glucose monitoring. Sliding scaleinsulin coverage while inpatient. Hold oral diabetic medications.6. GI prophylaxis Per surgeon7. DVT prophylaxis Early ambulation. Pneumatic compression device.Subcutaneous Heparin or LMW Heparin if clinically indicated8. Anxiety9. Cswfoqivna76. Coronary artery disease EKG ordered today.Based on above medical co morbidities, length of stay may be prolonged greaterthan previously anticipated.ALLERGIES:Aspirin, Fexofenadine, Levofloxacin, Pravastatin, Quinine, andRosuvastatin12/23/2020 3:53 PMRenee Grant NP*This document or parts of this document, were dictated using [employer]iSync speaking software. A reasonable attempt at proofreading has beenmade to minimize errors. Please call with any questions or corrections. Name Value Range Interpretation Code Description Data Ximena rce(s) Supporting Document(s) ID Date Data Source [id number] 12/23/2020 12:57:43 PM EDT [facility] Name Value Range Interpretation Code Description Data Ximena rce(s) Supporting Document(s) EKG [facility] [id number] [file] [id number]== ID Date Data Source [id number] 12/24/2020 11:09:48 AM EDT [facility] SPECIMEN DESCRIPTION MIDSTREAM UR INE,CLEAN CATCHCULTURE RESULTS NO GROWTHREPORT STATUS FINAL 12/24/2020 Name Value Range Interpretation Code Description Data Ximena rce(s) Supporting Document(s) ID Date Data Source [id number] 12/23/2020 04:04:11 PM EDT [facility] Name Value Range Interpretation Code Description Data Ximena rce(s) Supporting Document(s) COLOR [facility] APPEARANCE [facility] SPEC GRAV URINE 1.036 (1.003-1.030) H [facility] PH URINE 6.0 (5.0-7.5) [facility] LEUK ESTERASE (NEG) [facility] NITRITE URINE (NEG) [facility] PROTEIN URINE (NEG) [facility] GLUCOSE URINE 3+ (NEG) A [facility] KETONE URINE (NEG) [facility] UROBILINOGEN 0.2 mg/dL (0-1.0) [facility] BILIRUBIN URINE (NEG) [facility] BLOOD/HGB URINE (NEG) [facility] ID Date Data Source [id number] 12/23/2020 10:44:36 PM EDT [facility] SPEC EXP DATE 12/26/2020ATI ENT ABO/Rh A POSITIVEANTIBODY SCREEN NEGATIVETESTING SITE PERFORMED AT [address] [place] [address] [id number] BANK COMMENT BLOOD TYPE CONFIRMED. Name Value Range Interpretation Code Description Data Ximena rce(s) Supporting Document(s) TYPE AND SCREEN [facility] ID Date Data Source [id number] 12/23/2020 05:52:12 PM EDT [facility] Name Value Range Interpretation Code Description Data Ximena rce(s) Supporting Document(s) HEMOGLOBIN A1C @ 6.7 % (4.0-6.0) H [facility] Performed using Siemens [place] immunoassa y.Care must be taken when interpreting [id number] in patients with a hemoglobin variantor decreased erythrocyte lifespan. Values 5.7 - 6.4% suggest prediabetes.Values >=6.5% are diagnostic for diabetes.REFERENCE: DIABETES CARE 2018: 41(S13-S27). EST AVERAGE GLUCOSE 146 mg/dL [facility] ID Date Data Source [id number] 12/23/2020 05:22:49 PM EDT [facility] Name Value Range Interpretation Code Description Data Ximena rce(s) Supporting Document(s) WBC 10.3 10*3/uL (4.1-11.0) [facility] RBC 4.16 10*6/uL (4.60-6.10) L [facility] HGB 13.8 g/dL (13.5-18.0) [facility] HCT 40.8 % (41.0-53.0) L [facility] MCV 98.2 fL (80.0-95.0) H [facility] MCH 33.1 pg (27.0-32.0) H [facility] MCHC 33.7 g/dL (32.0-36.0) [facility] RDW 14.7 % (10.5-14.5) H [facility] PLT 271 10*3/uL (150-450) [facility] MPV 7.6 fL (7.1-10.7) [facility] NEUT % 63.0 % (35.0-75.0) [facility] LYMPH % 21.0 % (16.0-52.0) [facility] ATYP LYMPH % 1.0 % (0.0-5.0) [facility] [place] MONO % 12.0 % (0.0-8.0) H [facility] EOS % 1.0 % (0.0-5.0) [facility] BASO % 1.0 % (0.0-4.0) [facility] MYELO % 1.0 % (0.0) H [facility] NEUT # 6.5 10*3/uL (1.8-7.7) [facility] LYMPH # 2.2 10*3/uL (1.2-4.8) [facility] ATYP LYMPH # 0.1 10*3/uL [facility] MONO # 1.2 10*3/uL (0.0-0.8) H [facility] Eosinophils [#/volume] in Blood by Automated count 0.1 10*3/uL (0.0-0 .5) [facility] BASO # 0.1 10*3/uL (0.0-0.2) [facility] MYELO # 0.1 10*3/uL (0.0) H [facility] LARGE PLT 1+ [facility] ID Date Data Source [id number] 12/23/2020 04:33:04 PM EDT [facility] Name Value Range Interpretation Code Description Data Ximena rce(s) Supporting Document(s) BILIRUBIN,UNCONJ. (0.0-0.7) [facility] ID Date Data Source [id number] 12/23/2020 04:33:04 PM EDT [facility] Name Value Range Interpretation Code Description Data Ximena rce(s) Supporting Document(s) SODIUM 139 mmol/L (136-145) [facility] POTASSIUM 3.9 mmol/L (3.6-5.2) [facility] CHLORIDE 100 mmol/L (100-108) [facility] CO2 29 mmol/L (22-31) [facility] ANION GAP 10 mmol/L (7-16) [facility] UREA NITROGEN 24 mg/dL (7-24) [facility] CREATININE 0.76 mg/dL (0.80-1.30) L [facility] BUN/CREAT RATIO 31.6 RATIO (10.0-20.0) H [facility] GLUCOSE 81 mg/dL (70-99) [facility] CALCIUM 9.4 mg/dL (8.4-10.2) [facility] TOTAL PROTEIN 6.6 g/dL (6.4-8.2) [facility] ALBUMIN 3.7 g/dL (3.2-4.5) [facility] GLOBULIN 2.9 g/dL (2.7-4.3) [facility] ALB/GLOB RATIO 1.3 RATIO [facility] ALKALINE PHOSPHATASE 66 U/L (45-117) [facility] BILIRUBIN,TOTAL 0.2 mg/dL (0.0-1.0) [facility] PLEASE NOTE:Total bilirubin results may be falselyelevated in patients taking Eltrombopag. AST (SGOT) 20 U/L (11-39) [facility] ALT (SGPT) 28 U/L (12-78) [facility] GFR >60 ml/min/1.73m2 (>59) [facility] GFR ( AMER) >60 ml/min/1.73m2 (>59) [facility] GFR INTERPRETATION [facility] --NORMAL KIDNEY FUNCTION OR MILD DISEASE - GFR >OR= 60CHRONIC KIDNEY DISEASE - GFR 15 - 59RENAL FAILURE - GFR <15 Est. GFR calculation based on the MDRDstudy equation, which assumes a steadystate for creatinine. Est. GFR should notbe used for medication dosing. ID Date Data Source [id number] 12/23/2020 04:33:04 PM EDT [facility] Name Value Range Interpretation Code Description Data Ximena rce(s) Supporting Document(s) NT PRO BNP 3847 pg/mL (0-125) H [facility] ID Date Data Source [id number] 12/23/2020 04:33:04 PM EDT [facility] Name Value Range Interpretation Code Description Data Ximena rce(s) Supporting Document(s) BILIRUBIN,CONJUGATED <0.1 mg/dL (0.0-0.3) [facility] ID Date Data Source [id number] 12/23/2020 04:06:00 PM EDT [facility] Name Value Range Interpretation Code Description Data Ximena rce(s) Supporting Document(s) APTT 23.3 s (22.0-34.3) [facility] ID Date Data Source [id number] 12/23/2020 04:06:00 PM EDT [facility] Name Value Range Interpretation Code Description Data Ximena rce(s) Supporting Document(s) PT 9.9 s (9.2-11.9) [facility] INR 0.95 [facility] CN[facility]icaela SUGGESTED THERAPEUTIC RANGES USING INR F ORSTABILIZED ANTICOAGULATED PATIENTS:STANDARD DOSE THERAPY INR 2.0-3.0 DVT, PE, PREVENT DVT OR EMBOLISMHIGH DOSE THERAPY INR 2.5-3.5 PREVENT EMBOLISM FROM MECHANICAL HEART VALVE ID Date Data Source [id number] 12/23/2020 03:19:13 PM EDT [facility] Name Value Range Interpretation Code Description Data Ximena rce(s) Supporting Document(s) ROOM TEMP AB SCREEN [facility] ROOM TEMP AB SCREEN NEGATIVE ID Date Data Source [id number] 12/24/2020 12:10:21 PM EDT [facility] Name Value Range Interpretation Code Description Data Ximena rce(s) Supporting Document(s) SPECIMEN DESCRIPTION [facility] STAPH SCREEN RESULTS (ONEGSA) [facility] COMMENT [facility] GENE TO DETECT STAPH AUREUS. (2) RT-P CR WAS PERFORMED FOR THE mecA AND [employer] GENES TO DETECT METHICILLIN RESISTANCE IN STAPH AUREUS. ID Date Data Source [id number] 12/12/2020 03:36:00 PM EDT [facility] Name Value Range Interpretation Code Description Data Ximena rce(s) Supporting Document(s) Color Urine Laboratory test result [facility] Appearance of Urine Laboratory test result [facility] Specific [place] 1.025 1.00-1.03 [facility] ([facility] Glucose Urine Laboratory test result Above high normal [facility] ([facility] PH Urine 7.5 5.0-8.0 [facility] ([facility] Ketones Laboratory test result [facility] ([facility] Bilirubin.total [Presence] in Urine by Test strip Laboratory test res ult [facility] ([facility] Blood Urine Laboratory test result M EDENT ([facility] Urobilinogen 0.2 EU/dl 0.2-1.0 [facility] ([facility] Protein Urine Laboratory test result [facility] ([facility] Nitrite Laboratory test result [facility] ([facility] Leukocytes Laboratory test result ME DENT ([facility] ID Date Data Source [id number] 12/11/2020 07:03:09 AM EDT [facility] NT INFORMATIONPatient MRN Name Date of Age Gend*PT [id number] Minoo Velasquez III 1950 70 years M ---PT Location Admission Date/Time Visit ID Attending Provider --- --- --- --- EPI ID CSN Admitting Provider [id number] ---I have reviewed all the pertinent notes for Minoo Velasquez III and agree withthe documentation.Warren Dykes MD Name Value Range Interpretation Code Description Data Ximena rce(s) Supporting Document(s) ID Date Data Source [id number] 12/10/2020 02:13:43 PM EDT [facility] NT INFORMATIONPatient MRN Name Date of Age Gend*PT [id number] Minoo Velasquez III 1950 70 years M ---PT Location Admission Date/Time Visit ID Attending Provider --- --- --- --- EPI ID CSN Admitting Provider [id number] ---Cardiology Office VisitSubjectiveChief Complaint: Follow-up cardiac catheterization and TEEHPI:This patient is a 70 years male with a past medical history stated below1. Valvular heart disease. Status post bovine aortic valve replacement 2009.2. COPD with chronic hypoxic respiratory failure, bronchiectasis with chronicantibiotic therapy alternating between cefdinir and ciprofloxacin3. Diabetes mellitus4. Obstructive sleep apnea5. Hypertension6. Coronary artery disease status post multiple stent placement to RCA, LCx, andLeft main. Cardiac catheterization 10/24/2018 all previous stents patent. Focal50 percent lesion in RCA. Medical management recommended.7. Peripheral arterial disease status post left femoral endarterectomy [id number]. Iron deficiency anemia9. Vitamin B12 [id number]. JERI 11/27/2020 LVEF 65%. Mild LVH. Severe bioprosthetic stenosis of theaortic valve. Patent foramen ovale not present. No ASD.11. Cardiac catheterization 11/27/2020 previously placed stents are patent.Focal moderate lesions in mid LAD, mid circumflex, and mid right coronary arterywhich are not sufficiently severe to merit intervention. Referred to TAVRclinic.Who presents to the office today for follow-up. Patient was last seen in officeat the end of November. He is accompanied by his . [facility] and treated for COPDexacerbation/CHF. Patient had an echocardiogram performed showing reduced LVEFof 38% with severe aortic stenosis with a valve area of less than 0.7 cm . Meanaortic valve gradient 49 mmHg. Patient was set up for JERI and cardiaccatheterization with results as stated above. Patient did not need anyintervention during cardiac catheterization. JERI does show severe bioprostheticstenosis of aortic valve. Patient is being evaluated for TAVR versus SAVR.Review of SystemsThis patient denies otherwise, weight loss or weight gain, fevers, chills,sweats, change in urine or change in bowel habits, breast, lung, liver or kidneydisease. She denies hematologic, neurologic, dermatologic, pulmonary,psychiatric, orthopedic, endocrine, hematologic, gastroenterologic, infectious,oncologic, gynecologic or gender specific diseases.Past HistoryPast Medical History:Diagnosis Date COPD (chronic obstructive pulmonary disease) Coronary artery disease Diabetes mellitus Disease of thyroid gland Diverticulitis Emphysema GI bleed Hypertension Sleep apnea Sleep apneaPast Surgical History:Procedure Laterality Date AORTIC VALVE REPLACEMENT BACK SURGERY CARDIAC CATHETERIZATION 07/13/2012 CARDIAC CATHETERIZATION N/A 10/24/2018 Procedure: Cardiac catheterization; Surgeon: Shanique Ramírez MD; Laterality:N/A; CARDIAC CATHETERIZATION N/A 10/24/2018 Procedure: Angioplasty-coronary; Surgeon: Shanique Ramírez MD; Laterality:N/A; CARDIAC CATHETERIZATION N/A 11/27/2020 Procedure: Left heart cath; Surgeon: Shanique Ramírez MD; Laterality: N/A; CARDIAC CATHETERIZATION N/A 11/27/2020 Procedure: Angioplasty-coronary; Surgeon: Shanique Ramírez MD; Laterality:N/A; CORONARY STENT PLACEMENT 12 stents ECHOCARDIOGRAM TRANSESOPHAGEAL N/A 11/27/2020 Procedure: ECHO TRANSESOPHAGEAL; Surgeon: Callie Enamorado MD; Laterality: N/A;scheduled with Dr. Enamorado per Dr. Rogel HistoryProblem Relation Age of Onset Myocardial Infarction (DC) Father Healthy, No Significant History MotherSocial HistorySocioeconomic History Marital status: Spouse name: Not on file Number of children: Not on file Years of education: Not on file Highest education level: Not on fileOccupational History Not on fileTobacco Use Smoking status: Former Smoker Packs/day: 1.00 Years: 30.00 Pack years: 30.00 Types: Cigarettes, Pipe, Cigars Quit date: 11/24/2009 Years since quittin.0 Smokeless tobacco: Never UsedVaping Use Vaping Use: Never usedSubstance and Sexual Activity Alcohol use: No Drug use: No Sexual activity: Not on fileOther Topics Concern Bike Helmet Not Asked History of Breast Feeding Not Asked Self-Exams Not Asked Caffeine Concern Not Asked Hobby Hazards Not Asked Sleep Concern Not Asked Daily Calcium Supplement Not Asked Lead Exposure Not Asked Special Diet Not Asked Daily Vitamin D Supplement Not Asked Service Not Asked Stress Concern Not Asked Domestic Violence in home Not Asked Radon exposure Not Asked Weight Concern Not Asked Exercise Not Asked Seat Belt Not Asked Well water Not Asked Firearms in home Not AskedSocial History Narrative Not on fileSocial Determinants of HealthFinancial Resource Strain: Difficulty of Paying Living Expenses:Food Insecurity: Worried About Running Out of Food in the Last Year: Ran Out of Food in the Last Year:Transportation Needs: Lack of Transportation (Medical): Lack of Transportation (Non-Medical):Physical Activity: Days of Exercise per Week: Minutes of Exercise per Session:Stress: Feeling of Stress :Social Connections: Frequency of Communication with Friends and Family: Frequency of Social Gatherings with Friends and Family: Attends Sikh Services: Active Member of Clubs or Organizations: Attends Club or Organization Meetings: Marital Status:Intimate Partner Violence: Fear of Current or Ex-Partner: Emotionally Abused: Physically Abused: Sexually Abused:Medications and AllergiesAllergiesAllergen Reactions Fexofenadine Other (See Comments) Reaction: SHORT OF BREATH Comment: 05/09/2008 @ 1447- PER PATIENT FROM [facility]- PATIENT HAS BEEN TAKING BENADRYL W/O PROBLEM..BETTY Levofloxacin Reaction: LEG CRAMPS Penicillins Reaction: THROAT SWELL11/10/17 per no longer allergic, he was tested Quinine Reaction: HIVES Comment: FACIAL SWELLING Rosuvastatin Reaction: MUSCLE ACHESCurrent Outpatient MedicationsMedication Sig Dispense Refill aclidinium bromide (TUDORZA PRESSAIR) 400 MCG/ACT AEPB inhaler Inhale 1 puff 2(two) times a day aclidinium bromide (TUDORZA) 400 MCG/ACT AEPB inhaler Inhale 1 puff 2 (two)times a day albuterol (PROVENTIL) (2.5 MG/3ML) 0.083% nebulizer solution 1 vial four timesa day as needed DX:J44.1 ascorbic acid (VITAMIN C) 500 MG tablet Take 1,000 mg by mouth daily B-Complex-C TABS Take 1 tablet by mouth daily Brimonidine Tartrate (ALPHAGAN P OP) Apply to eye 2 (two) times a day budesonide (PULMICORT) 0.5 MG/2ML nebulizer solution Take 0.5 mg bynebulization every 12 (twelve) hours Calcium Citrate-Vitamin D3 315-6.25 MG-MCG TABS Take by mouth cefdinir (OMNICEF) 300 MG capsule Take 300 mg by mouth 2 (two) times a day cholecalciferol (VITAMIN D3) 1000 UNITS capsule Take 2,000 Units by mouthdaily ciprofloxacin (CIPRO) 500 MG tablet Take 500 mg by mouth 2 (two) times a day citalopram (CELEXA) 20 MG tablet Take 20 mg by mouth nightly clopidogrel (PLAVIX) 75 MG tablet Take 1 tablet (75 mg total) by mouth daily90 tablet 3 Empagliflozin 25 MG TABS Take by mouth famotidine (PEPCID) 40 MG tablet Take 40 mg by mouth daily ferrous sulfate 325 (65 FE) MG tablet Take 325 mg by mouth 2 (two) times a daywith meals folic acid (FOLVITE) 1 MG tablet Take 1 mg by mouth daily formoterol (PERFOROMIST) 20 MCG/2ML nebulizer solution 1 neb twice a daydx:J44.9 formoterol (PERFOROMIST) 20 MCG/2ML nebulizer solution Take 20 mcg bynebulization 2 (two) times a day GUAIFENESIN 1200 PO Take by mouth ibandronate (BONIVA) 150 MG tablet Take 150 mg by mouth every 30 (thirty) days0 ibandronate (BONIVA) 150 MG tablet Take 150 mg by mouth every 30 (thirty) days Immune Globulin, Human, 4 GM/20ML SOLN Inject under the skin ipratropium (ATROVENT) 0.02 % nebulizer solution 1 vial via neb four times aday dx:j44.1 metFORMIN (GLUCOPHAGE) 500 MG tablet Take 500 mg by mouth 2 (two) times a daywith meals montelukast (SINGULAIR) 10 MG tablet Take 10 mg by mouth daily 3 nitroglycerin (NITROSTAT) 0.[address] 1 tablet (0.4 mg total) underthe tongue every 5 (five) minutes as needed for chest pain 25 tablet 1 nystatin (MYCOSTATIN) 255109 UNIT/ML suspension 0 omeprazole (PRILOSEC) 40 MG capsule Take 40 mg by mouth daily OXYGEN-HELIUM IN @ 2 liters n/c at night pitavastatin (LIVALO) 2 MG TABS Take 2 mg by mouth daily predniSONE (DELTASONE) 10 MG tablet Take 20 mg by mouth daily Probiotic Product (PROBIOTIC ADVANCED PO) Take by mouth Travoprost (TRAVATAN Z OP) Apply to eye daily zinc sulfate (ZINCATE) 220 (50 Zn) MG capsule Take 50 mg by mouth daily furosemide (LASIX) 20 MG tablet Take 1 tablet (20 mg total) by mouth daily 30tablet 2No current facility-administered medications for this visit.PhysicalBP 118/70 (BP Location: Left upper arm) | Pulse 104 | Temp 97.3 F | Resp 20| Wt 60.3 kg (133 lb) | SpO2 94% Comment: 2l | BMI 20.22 kg/m Physical Exam:Neck: Trachea is midline, there is no JVD, there are no bruitsCardiac: S1, S2, physiologically split. Rhythm is regular. There is no S3. Thereis no S4. PMI is in the fourth LICS AAL. There were no lifts, heaves, rubs orthrills.Lungs: Are clear to auscultation and percussion without rhonchi, rubs rales orwheezes. Diaphragmatic excursion is normal. Inspiratory and expiratory durationsare normalExtremities: Are without erythema, cyanosis, clubbing or edema.Neurologic/psychiatric: Cranial nerves, strength, sensory, reflexes, cerebellum,orientation, mood and affect are unremarkable. A very cursory psychiatricexamination exhibits no obvious psychiatric issues.Skin: Is warm and dry. There are no definitive areas of cellulitis or unusualskin findings.DiagnosticsLab:Admission on 11/27/2020, Discharged on 1Component Date Value Ref Range Status SPECIMEN DESCRIPTION 11/27/2020 NASOPHARYNGEAL Final Influenza A 11/27/2020 NEGATIVE NEGATIVE Final Influenza B 11/27/2020 NEGATIVE NEGATIVE Final RSV 11/27/2020 NEGATIVE NEGATIVE Final Comment 11/27/2020 SEE NOTES Final COVID19 RESULT 11/27/2020 NOT DETECTED NOT DETECTED Final FIRST TEST 11/27/2020 UNKNOWN Final EMPLOYED IN HLTHCARE 11/27/2020 UNKNOWN Final SYMPTOMATIC 11/27/2020 UNKNOWN Final DATE OF SYMPT ONSET 11/27/2020 NOT APPLICABLE Final HOSPITALIZED 11/27/2020 NO Final ICU 11/27/2020 NO Final CONGREGATE CARE SET 11/27/2020 UNKNOWN Final 11/27/2020 NO Final WBC 11/27/2020 17.0* 4.10 - 11.00 10*3/uL Final RBC 11/27/2020 5.39 4.60 - 6.10 10*6/uL Final Hemoglobin 11/27/2020 17.7 13.5 - 18.0 g/dL Final Hematocrit 11/27/2020 51.4 41.00 - 53.00 % Final MCV 11/27/2020 95.4* 80.0 - 95.0 fL Final MCH 11/27/2020 32.8* 27.0 - 32.0 pg Final MCHC 11/27/2020 34.4 32 - 36 g/dL Final RDW 11/27/2020 13.6 10.5 - 14.5 % Final Platelets 11/27/2020 232 150 - 450 10*3/uL Final MPV 11/27/2020 8.0 7.1 - 10.7 fL Final Sodium 11/27/2020 136 136 - 145 mmol/L Final Potassium 11/27/2020 3.8 3.6 - 5.2 mmol/L Final Chloride 11/27/2020 94* 100 - 108 mmol/L Final CO2 11/27/2020 32* 22 - 31 mmol/L Final Anion Gap 11/27/2020 10 7 - 16 mmol/L Final Urea nitrogen 11/27/2020 44* 7 - 24 mg/dL Final Creatinine 11/27/2020 1.11 0.80 - 1.30 mg/dL Final BUN/Creatinine Ratio 11/27/2020 39.6* 10.0 - 20.0 RATIO Final GLUCOSE 11/27/2020 279* 70 - 99 mg/dL Final Calcium 11/27/2020 11.4* 8.4 - 10.2 mg/dL Final GFR MDRD Non Af Amer 11/27/2020 >60 >59 ml/min/1.73m2 Final GFR MDRD Af Amer 11/27/2020 >60 >59 ml/min/1.73m2 Final Glom Filt Rate, Est 11/27/2020 SEE NOTES FinalImaging/Testing: N/AEKG: N/AAssessment & PlanPatient Active Problem ListDiagnosis Disease of thyroid gland Diabetes mellitus Coronary artery disease Chest pain Shortness of breath Atherosclerosis of [place] coronary artery of [place] heart Type 2 diabetes mellitus with complication Sleep apnea Hypertension Aortic valve stenosis Stable angina Systolic heart failure Homograft cardiac valve stenosis1. Systolic CHF; patient no longer on a beta-jenny. Was recommended tocontinue calcium channel jenny therapy instead due to pulmonary disease.Please see recent catheterization documentation. He also has been havingheadaches and urinary symptoms since starting torsemide. He would prefer to goback to furosemide. This change was made during today's visit. They willmonitor his weights and call with any abnormal weight gain or increased lowerextremity edema/shortness of breath.2. Bioprosthetic aortic valve stenosis; patient underwent JERI as stated above.He is waiting to hear if he is a candidate for TAVR versus TAVR.3. Status post cardiac catheterization; no progression of CAD noted. Patientis on [place]. Target LDL should be 70 or less. Right femoral access site hashealed properly.We will see him back for follow-up once he undergoes TAVR/SAVR. He is inagreement with the steps in management. He will contact the office if he hasany questions or concerns or worsening symptoms. I did spend more than halfhour with patient and .Signature: NIRMAL Hernandezate: December 10, 2020Time: 2:13 PM Name Value Range Interpretation Code Description Data Ximena rce(s) Supporting Document(s) ID Date Data Source [id number] 12/10/2020 11:35:00 AM EDT [facility] NGIO CHEST ABDOMEN PELVIS TAVRCLINICAL HISTORY: Av replace, percutaneous planning, valve plane.COMPARISON: None.TECHNIQUE: Coronal, parasagittal and 3-dimensional reconstructions or MIPS were provided (or created on the workstation) and reviewed.115 cc Isovue 370 administered.FINDINGS: The ascending aorta is dilated up to 4.4 cm just below the level of the pulmonary artery bifurcation. A prosthetic aortic valve is seen. There are mild calcified and noncalcified plaques at the aortic arch causing less than 50% narrowing of the great vessel origins. There is no evidence of an abdominal aortic aneurysm. There is approximately 70% stenosis at the celiac artery origin (series 5, image 221). There are dense calcifications at the proximal superior mesenteric artery causing moderate to severe stenosis (series 5, image 246). There is moderate stenosis at the JOSE MIGUEL origin. There is severe stenosis at the proximal left renal artery (series 5 image 254) and moderate stenosis at the right renal artery origin. The kidneys demonstrate symmetric enhancement. There are calcifications at the common, internal, and external iliac arteries bilaterally causing less than 50% stenosis.There is moderate to severe emphysema with bandlike opacities at the lung bases which likely represent a combination of atelectasis and scarring. No definite consolidation, pleural effusion, or pneumothorax. No mediastinal adenopathy or pericardial effusion.The liver, gallbladder, spleen, pancreas, and adrenal glands are unremarkable. Multiple small hypodense lesions in both kidn eys, likely cysts. No calculus or hydronephrosis. The urinary bladder is unremarkable. The prostate gland is grossly normal. There is colonic diverticulosis without evidence of acute diverticulitis. There is a large amount of stool in the colon. There is no evidence of bowel obstruction. There is no mediastinal adenopathy. There is no free air or free fluid. There is no acute osseous abnormality. There is a chronic appearing ununited fracture of the left lateral 8th rib.IMPRESSION:1. Dilated ascending aorta measuring up to 4.4 cm.2. Atherosclerotic disease as described above, notable for severe stenosis in the proximal celiac and superior mesenteric arteries as well as severe stenosis at the proximal left renal artery.3. Moderate emphysema with bibasilar atelectasis and/or scarring.4. Colonic diverticulosis.5. Large amount of stool in the colon suggestive of constipation.Dictated by: SHANIQUE BROWNLEE on 1 Transcribed by: cecil on 12/10/2020 01:12 PMCDS G code: , , ,CDS Modifier: , , ,cc: Name Value Range Interpretation Code Description Data Ximena rce(s) Supporting Document(s) ID Date Data Source [id number] 12/10/2020 11:28:29 AM EDT [facility] [place] [facility] INFORMATIONPatient MRN Name Date of Age Gend*PT [id number] Minoo Velasquez III 1950 70 years M HOPPT Location Admission Date/Time Visit ID Attending Provider 12/10/20 1000 --- --- EPI ID CSN Admitting Provider [id number] ---Cardiovascular and Thoracic Surgery HISTORY & PHYSICAL1Chief Compliant / Reason for consultation:Minoo Velasquez III is a 70 years old gentleman with severe bioprostheticValvular . He presents with several moths of fatigue, and dyspnea. He's beendizzy at times but has not passed out. No ankle swelling but he is on Torsemide.He has had several bouts of chest pressure on exertion.Past Medical History:Diagnosis Date COPD (chronic obstructive pulmonary disease) Coronary artery disease Diabetes mellitus Disease of thyroid gland Diverticulitis Emphysema GI bleed Hypertension Sleep apnea Sleep apneaPast Surgical History:Procedure Laterality Date AORTIC VALVE REPLACEMENT BACK SURGERY CARDIAC CATHETERIZATION 07/13/2012 CARDIAC CATHETERIZATION N/A 10/24/2018 Procedure: Cardiac catheterization; Surgeon: Shanique Ramírez MD; Laterality:N/A; CARDIAC CATHETERIZATION N/A 10/24/2018 Procedure: Angioplasty-coronary; Surgeon: Shanique Ramírez MD; Laterality:N/A; CARDIAC CATHETERIZATION N/A 11/27/2020 Procedure: Left heart cath; Surgeon: Shanique Ramírez MD; Laterality: N/A; CARDIAC CATHETERIZATION N/A 11/27/2020 Procedure: Angioplasty-coronary; Surgeon: Shanique Ramírez MD; Laterality:N/A; CORONARY STENT PLACEMENT 12 stents ECHOCARDIOGRAM TRANSESOPHAGEAL N/A 11/27/2020 Procedure: ECHO TRANSESOPHAGEAL; Surgeon: Callie Enamorado MD; Laterality: N/A;scheduled with Dr. Enamorado per Dr. Rogel HistoryProblem Relation Age of Onset Myocardial Infarction (DC) Father Healthy, No Significant History MotherSocial History:Social HistorySocioeconomic History Marital status: Spouse name: Not on file Number of children: Not on file Years of education: Not on file Highest education level: Not on fileOccupational History Not on fileTobacco Use Smoking status: Former Smoker Packs/day: 1.00 Years: 30.00 Pack years: 30.00 Types: Cigarettes, Pipe, Cigars Quit date: 11/24/2009 Years since quittin.0 Smokeless tobacco: Never UsedVaping Use Vaping Use: Never usedSubstance and Sexual Activity Alcohol use: No Drug use: No Sexual activity: Not on fileOther Topics Concern Bike Helmet Not Asked History of Breast Feeding Not Asked Self-Exams Not Asked Caffeine Concern Not Asked Hobby Hazards Not Asked Sleep Concern Not Asked Daily Calcium Supplement Not Asked Lead Exposure Not Asked Special Diet Not Asked Daily Vitamin D Supplement Not Asked Service Not Asked Stress Concern Not Asked Domestic Violence in home Not Asked Radon exposure Not Asked Weight Concern Not Asked Exercise Not Asked Seat Belt Not Asked Well water Not Asked Firearms in home Not AskedSocial History Narrative Not on fileSocial Determinants of HealthFinancial Resource Strain: Difficulty of Paying Living Expenses:Food Insecurity: Worried About Running Out of Food in the Last Year: Ran Out of Food in the Last Year:Transportation Needs: Lack of Transportation (Medical): Lack of Transportation (Non-Medical):Physical Activity: Days of Exercise per Week: Minutes of Exercise per Session:Stress: Feeling of Stress :Social Connections: Frequency of Communication with Friends and Family: Frequency of Social Gatherings with Friends and Family: Attends Sikh Services: Active Member of Clubs or Organizations: Attends Club or Organization Meetings: Marital Status:Intimate Partner Violence: Fear of Current or Ex-Partner: Emotionally Abused: Physically Abused: Sexually Abused:Allergies:Fexofenadine, Furosemide, Levofloxacin, Penicillins, Quinine, and RosuvastatinMedications:Current Outpatient Medications: aclidinium bromide (TUDORZA PRESSAIR) 400 MCG/ACT AEPB inhaler, Inhale 1 puff2 (two) times a day, Disp: , Rfl: aclidinium bromide (TUDORZA) 400 MCG/ACT AEPB inhaler, Inhale 1 puff 2 (two)times a day, Disp: , Rfl: albuterol (PROVENTIL) (2.5 MG/3ML) 0.083% nebulizer solution, 1 vial fourtimes a day as needed DX:J44.1, Disp: , Rfl: ascorbic acid (VITAMIN C) 500 MG tablet, Take 1,000 mg by mouth daily, Disp:, Rfl: B-Complex-C TABS, Take 1 tablet by mouth daily, Disp: , Rfl: Brimonidine Tartrate (ALPHAGAN P OP), Apply to eye 2 (two) times a day, Disp:, Rfl: budesonide (PULMICORT) 0.5 MG/2ML nebulizer solution, Take 0.5 mg bynebulization every 12 (twelve) hours, Disp: , Rfl: Calcium Citrate-Vitamin D3 315-6.25 MG-MCG TABS, Take by mouth, Disp: , Rfl: carvedilol (COREG) 6.25 MG tablet, Take 6.25 mg by mouth 2 (two) times a day,Disp: , Rfl: cefdinir (OMNICEF) 300 MG capsule, Take 300 mg by mouth 2 (two) times a day,Disp: , Rfl: cholecalciferol (VITAMIN D3) 1000 UNITS capsule, Take 2,000 Units by mouthdaily, Disp: , Rfl: ciprofloxacin (CIPRO) 500 MG tablet, Take 500 mg by mouth 2 (two) times aday, Disp: , Rfl: citalopram (CELEXA) 20 MG tablet, Take 20 mg by mouth nightly, Disp: , Rfl: clopidogrel (PLAVIX) 75 MG tablet, Take 1 tablet (75 mg total) by mouthda althea, Disp: 90 tablet, Rfl: 3 Empagliflozin 25 MG TABS, Take by mouth, Disp: , Rfl: famotidine (PEPCID) 40 MG tablet, Take 40 mg by mouth daily, Disp: , Rfl: ferrous sulfate 325 (65 FE) MG tablet, Take 325 mg by mouth 2 (two) times aday with meals, Disp: , Rfl: folic acid (FOLVITE) 1 MG tablet, Take 1 mg by mouth daily, Disp: , Rfl: formoterol (PERFOROMIST) 20 MCG/2ML nebulizer solution, 1 neb twice a daydx:J44.9, Disp: , Rfl: formoterol (PERFOROMIST) 20 MCG/2ML nebulizer solution, Take 20 mcg bynebulization 2 (two) times a day, Disp: , Rfl: GUAIFENESIN 1200 PO, Take by mouth, Disp: , Rfl: ibandronate (BONIVA) 150 MG tablet, Take 150 mg by mouth every 30 (thirty)days , Disp: , Rfl: 0 ibandronate (BONIVA) 150 MG tablet, Take 150 mg by mouth every 30 (thirty)days, Disp: , Rfl: Immune Globulin, Human, 4 GM/20ML SOLN, Inject under the skin, Disp: , Rfl: ipratropium (ATROVENT) 0.02 % nebulizer solution, 1 vial via neb four times aday dx:j44.1, Disp: , Rfl: metFORMIN (GLUCOPHAGE) 500 MG tablet, Take 500 mg by mouth 2 (two) times aday with meals, Disp: , Rfl: montelukast (SINGULAIR) 10 MG tablet, Take 10 mg by mouth daily, Disp: , Rfl:3 nitroglycerin (NITROSTAT) 0.4 MG SL tablet, Place 1 tablet (0.4 mg total)under the tongue every 5 (five) minutes as needed for chest pain, Disp: 25tablet, Rfl: 1 nystatin (MYCOSTATIN) 461537 UNIT/ML suspension, , Disp: , Rfl: 0 omeprazole (PRILOSEC) 40 MG capsule, Take 40 mg by mouth daily, Disp: , Rfl: OXYGEN-HELIUM IN, @ 2 liters n/c at night, Disp: , Rfl: predniSONE (DELTASONE) 10 MG tablet, Take 20 mg by mouth daily , Disp: , Rfl: Probiotic Product (PROBIOTIC ADVANCED PO), Take by mouth, Disp: , Rfl: torsemide (DEMADEX) 20 MG tablet, Take 20 mg by mouth daily, Disp: , Rfl: Travoprost (TRAVATAN Z OP), Apply to eye daily, Disp: , Rfl: zinc sulfate (ZINCATE) 220 (50 Zn) MG capsule, Take 50 mg by mouth daily,Disp: , Rfl:Review of SystemsReview of Systems - History obtained from the patientGeneral ROS: positive for - fatigueRespiratory ROS: positive for - shortness of breathCardiovascular ROS: positive for - chest pain and dyspnea on exertionObjective:Physicial Exam:There were no vitals filed for this visit.Cardio: Normal rate/rhythm; systolic murmur 3+Respiratory: Breath sounds equal bilaterally, faint rales bilaterallyNeuro: Grossly NormalPsych: Alert/oriented, Normal affectNo Ankle edemaPREVIOUS WEIGHTS:Wt Readings from Last 10 Encounters:11/25/20 62.6 kg (138 lb)07/17/19 70.8 kg (156 lb)07/17/19 70.8 kg (156 lb)11/22/18 73 kg (161 lb)10/24/18 74.8 kg (165 lb)10/18/18 76.2 kg (168 lb)11/09/17 77.1 kg (170 lb)10/06/16 77.1 kg (170 lb)03/13/16 80.7 kg (178 lb)09/18/15 71.5 kg (157 lb 10.1 oz)Lab ResultsComponent Value Date WBC 17.0 (H) 11/27/2020 HGB 17.7 11/27/2020 HCT 51.4 11/27/2020 MCV 95.4 (H) 11/27/2020 PLT 232 11/27/2020ab ResultsComponent Value Date NA 136 11/27/2020 K 3.8 11/27/2020 CL 94 (L) 11/27/2020 CO2 32 (H) 11/27/2020ab ResultsComponent Value Date BUN 44 (H) 11/27/2020ab ResultsComponent Value Date CREATININE 1.11 11/27/2020IOBRIEFNo intake or output data in the 24 hours ending 12/10/20 1120RADIOLOGY RESULTS:LATEST RADIOLOGY RESULTS:Echo Transesophageal (JERI)Result Date: 11/27/2020eft ventricular ejection fraction is normal, EF 65%, mild LVH. Severebioprosthetic stenosis in the aortic valve with dimensionless index of 0.25,mean gradient 45 mmHg and peak velocity 4.05 m/s. Patent foramen ovale notpresent. No interatrial septal defect present. Mild atherosclerotic diseasenoted in the aorta.Cardiac catheterizationResult Date: 11/27/2020Ost LAD to Prox LAD lesion is 15% stenosed. Mid RCA lesion is 50% stenosed. Dist RCA lesion is 30% stenosed. Mid Cx lesion is 50% stenosed. 1st Diaglesion is 50% stenosed. Mid LAD lesion is 50% stenosed. Prox RCA lesion is40% stenosed. No complications, estimated blood loss minimal. The patient'spreviously placed stents are patent. There are focal moderate lesions in themid LAD, mid circumflex and mid RCA which are not sufficiently severe to meritintervention. The patient will be referred for valve in valve TAVR. The casewas discussed with the patient and his present. With regards to thepatient's medical management he was recently switched from a calcium channelblocker to a beta-jenny after hospitalization in [place]. The patient'sspouse expressed concerns about him being on a beta- jenny given his severelung disease. I agree with her concerns and would not recommend a beta-jenny.I have advised him to resume the calcium channel jenny in lieu of carvedilol.US Carotid doppler bilateralResult Date: 11/27/2020[place]. [place] [address] Patient Name: JULIAN VELASQUEZ : 1950 Sex: M Ordering Provider: TING DESOUZA AuthorizingProv: TING DESOUZA Referring Provider: Procedure Performed: US CAROTIDBILATERAL Exam Date: 11/27/2020 13:55 Patient Class: Outpatient Reason for Exam:TAVR protocol Technique: Duplex sonography was performed. Co mparison: NoneFindings: The right and left carotid systems were examined by Dopplersonography. Carotid stenosis measurements were performed using the NASCETmethod. RIGHT CAROTID SYSTEM: Common Systolic Velocity 49 cm/s End- DiastolicVelocity 12 cm/s Internal Systolic Velocity 52 cm/s End-Diastolic Khzakknb08 cm/s External Systolic Velocity 48 cm/s End-Diastolic Velocity 5 cm/sVertebral Artery 15 Trickle flow cm/s Abnormal flow ICA/CCA Systolic Ratio= 1.1 Internal Carotid Artery Stenosis: Less than 50% LEFT CAROTID SYSTEM:Common Systolic Velocity 52 cm/s End-Diastolic Velocity 13 cm/s InternalSystolic Velocity 46 cm/s End-Diastolic Velocity 10 cm/s External SystolicVelocity 76 cm/s End-Diastolic Velocity 13 cm/s Vertebral Artery 32 cm/sAntegrade flow ICA/CCA Systolic Ratio = 0.9 Internal Carotid Artery Stenosis:Less than 50%IMPRESSION: Less than 50% bilateral ICA stenoses. Abnormal flow right vertebralartery. If patient has symptoms referable to the posterior circulation, then CTAmay be helpful for further imaging evaluation. Report electronically signed by:NASIR HOPSON On 11/27/2020 1:59 PM Workstation ID: [id number] / Impression / Plan:Minoo Velasquez presents with severe symptomatic Valvular Aortic Stenosis. NYHAClass III. I've gone over this diagnosis with him. We've discussed treatmentoptions including surgical Aortic Valve Replacement and Transcatheter AorticValve Replacement (TAVR).We've gone over TAVR procedure, including risks of bleeding, infection, stroke,kidney failure, lung complications including pneumonia and prolonged supportwith br eathing machine, possibility of needing a pacemaker and possibility ofdying. He understands this and would like to go ahead with TAVR procedure. Thiscase will be reviewed at the TAVR/Structural Heart Conference.This medical record reflects the history of present illness as obtained bymyself in discussion with the patient.Ton Mtz MD [facility] FACSCardiovascular Thoracic Surgery12/10/2020, 11:26 AM Name Value Range Interpretation Code Description Data Ximena rce(s) Supporting Document(s) ID Date Data Source [id number] 12/04/2020 10:31:00 AM EMELY CARRILLO ([facility] Name Value Range Interpretation Code Description Data Ximena e(s) Supporting Document(s) Color Urine Laboratory test result M EDENT ([facility] PH Urine 5.0 5.0-8.0 [facility] Appearance of Urine Laboratory test result MEDENT ([facility] Specific [place] 1.010 1.00-1.03 MED[facility] ([facility] Bilirubin.total [Presence] in Urine by Test strip Laboratory test res ult MEDENT ([facility] Glucose Urine Laboratory test result Above high normal MED[facility] ([facility] Ketones Laboratory test result MEDENT ([facility] Protein Urine Laboratory test result MEDENT ([facility] Blood Urine Laboratory test result M EDENT ([facility] Urobilinogen 0.2 EU/dl 0.2-1.0 [facility] ([facility] Leukocytes Laboratory test result ME DENT ([facility] Nitrite Laboratory test result MEDENT ([facility] ID Date Data Source [id number] 12/04/2020 10:12:00 AM EDT MEDENT ([facility] Name Value Range Interpretation Code Description Data Ximena rce(s) Supporting Document(s) Glu 119 mg/dL 70-110 Above high normal [facility] ([facility] NORMAL RANGES Age WBC RBC HGB HCT [...] HCT IS 5% LESS SOURCE FOR DATA: Genlot 1800 OPERATION MANUAL( AUTOMATED BLOOD COUNTS AND [...] Normal 80 and above >32 mL/min Normal BUN 24 mg/dL 8-23 Above high normal [facility] NORMAL RANGES Age WBC RBC HGB HCT [...] HCT IS 5% LESS SOURCE FOR DATA: Genlot 1800 OPERATION MANUAL( AUTOMATED BLOOD COUNTS AND [...] Normal 80 and above >32 mL/min Normal Creat 0.8 mg/dL 0.7-1.2 [facility] ([facility] NORMAL RANGES Age WBC RBC HGB HCT [...] HCT IS 5% LESS SOURCE FOR DATA: Genlot 1800 OPERATION MANUAL( AUTOMATED BLOOD COUNTS AND [...] Normal 80 and above >32 mL/min Normal BUN/Creatinine Ratio 29.0 [facility] ([facility] NORMAL RANGES Age WBC RBC HGB HCT [...] HCT IS 5% LESS SOURCE FOR DATA: Genlot 1800 OPERATION MANUAL( AUTOMATED BLOOD COUNTS AND [...] Normal 80 and above >32 mL/min Normal Na 136 mmol/L 136-145 [facility] ([facility] NORMAL RANGES Age WBC RBC HGB HCT [...] HCT IS 5% LESS SOURCE FOR DATA: Genlot 1800 OPERATION MANUAL( AUTOMATED BLOOD COUNTS AND [...] Normal 80 and above >32 mL/min Normal K 4.2 mmol/L 3.5-5.1 [facility] ([facility] NORMAL RANGES Age WBC RBC HGB HCT [...] HCT IS 5% LESS SOURCE FOR DATA: Genlot 1800 OPERATION MANUAL( AUTOMATED BLOOD COUNTS AND [...] Normal 80 and above >32 mL/min Normal Co2 21.2 mmol/L 22.0-29.0 Below low normal [facility] ([facility] NORMAL RANGES Age WBC RBC HGB HCT [...] HCT IS 5% LESS SOURCE FOR DATA: YAKOV DYN 1800 OPERATION MANUAL( AUTOMATED BLOOD COUNTS AND [...] Normal 80 and above >32 mL/min Normal CL 100.5 mmol/L 98.0-107.0 [facility] ([facility] NORMAL RANGES Age WBC RBC HGB HCT [...] HCT IS 5% LESS SOURCE FOR DATA: Genlot 1800 OPERATION MANUAL( AUTOMATED BLOOD COUNTS AND [...] Normal 80 and above >32 mL/min Normal CA 9.7 mg/dL 8.6-10.2 [facility] NORMAL RANGES Age WBC RBC HGB HCT [...] HCT IS 5% LESS SOURCE FOR DATA: Genlot 1800 OPERATION MANUAL( AUTOMATED BLOOD COUNTS AND [...] Normal 80 and above >32 mL/min Normal Alb 4.3 g/dL 3.5-5.2 [facility] NORMAL RANGES Age WBC RBC HGB HCT [...] HCT IS 5% LESS SOURCE FOR DATA: Genlot 1800 OPERATION MANUAL( AUTOMATED BLOOD COUNTS AND [...] Normal 80 and above >32 mL/min Normal TP 6.7 g/dL 6.6-8.7 [facility] ([facility] NORMAL RANGES Age WBC RBC HGB HCT [...] HCT IS 5% LESS SOURCE FOR DATA: Genlot 1800 OPERATION MANUAL( AUTOMATED BLOOD COUNTS AND [...] Normal 80 and above >32 mL/min Normal A/G Ratio 1.8 CALC [facility] ([facility] NORMAL RANGES Age WBC RBC HGB HCT [...] HCT IS 5% LESS SOURCE FOR DATA: Genlot 1800 OPERATION MANUAL( AUTOMATED BLOOD COUNTS AND [...] Normal 80 and above >32 mL/min Normal Globulin 2.4 CALC [facility] ([facility] NORMAL RANGES Age WBC RBC HGB HCT [...] HCT IS 5% LESS SOURCE FOR DATA: Genlot 1800 OPERATION MANUAL( AUTOMATED BLOOD COUNTS AND [...] Normal 80 and above >32 mL/min Normal Alt (SGPT) 21 U/L 0-41 [facility] ([facility] NORMAL RANGES Age WBC RBC HGB HCT [...] HCT IS 5% LESS SOURCE FOR DATA: Genlot 1800 OPERATION MANUAL( AUTOMATED BLOOD COUNTS AND [...] Normal 80 and above >32 mL/min Normal Alp 93.2 U/L 40-129 [facility] NORMAL RANGES Age WBC RBC HGB HCT [...] HCT IS 5% LESS SOURCE FOR DATA: Genlot 1800 OPERATION MANUAL( AUTOMATED BLOOD COUNTS AND [...] Normal 80 and above >32 mL/min Normal Ast (Sgot) 16 U/L 0-40 [facility] ([facility] NORMAL RANGES Age WBC RBC HGB HCT [...] HCT IS 5% LESS SOURCE FOR DATA: Genlot 1800 OPERATION MANUAL( AUTOMATED BLOOD COUNTS AND [...] Normal 80 and above >32 mL/min Normal Tbili 0.27 mg/dL 0.0-1.2 [employer] ([facility] NORMAL RANGES Age WBC RBC HGB HCT MCV PLT Adult M 4.1-10.9 4.20-6.30 12.0-18.0 37.0-51.0 80-97 140-440 Adult F 4.1-10.9 4.04-5.48 12.0-18.0 37.0-51.0 80- 140-440 0 -1 Yr 5.0-20.0 3.9-5.9 15-18 [...] HCT IS 5% LESS SOURCE FOR DATA: [employer] DYN 1800 OPERATION MANUAL( AUTOMATED BLOOD COUNTS AND [...] Normal 80 and above >32 mL/min Normal Osmolality-Calculated 277.5 CALC [employer] ([facility] NORMAL RANGES Age WBC RBC HGB HCT [...] HCT IS 5% LESS SOURCE FOR DATA: Genlot 1800 OPERATION MANUAL( AUTOMATED BLOOD COUNTS AND [...] Normal 80 and above >32 mL/min Normal Anion Gap 19 mmol/L [facility] NORMAL RANGES Age WBC RBC HGB HCT [...] HCT IS 5% LESS SOURCE FOR DATA: Genlot 1800 OPERATION MANUAL( AUTOMATED BLOOD COUNTS AND [...] Normal 80 and above >32 mL/min Normal eGFR 106 # [facility] ( [facility] NORMAL RANGES Age WBC RBC HGB HCT [...] HCT IS 5% LESS SOURCE FOR DATA: Genlot 1800 OPERATION MANUAL( AUTOMATED BLOOD COUNTS AND [...] Normal 80 and above >32 mL/min Normal eGFR Non-Afr. Citizen [place] 92 # [facility] ([facility] NORMAL RANGES Age WBC RBC HGB HCT [...] HCT IS 5% LESS SOURCE FOR DATA: Genlot 1800 OPERATION MANUAL( AUTOMATED BLOOD COUNTS AND [...] Normal 80 and above >32 mL/min Normal ID Date Data Source [id number] 12/04/2020 10:12:00 AM EDT [facility] ([facility] Name Value Range Interpretation Code Description Data Ximena rce(s) Supporting Document(s) WBC 14.0 10E3/uL 4.1-10.9 Above high normal BOONE T ([facility] NORMAL RANGES Age WBC RBC HGB HCT [...] HCT IS 5% LESS SOURCE FOR DATA: Genlot 1800 OPERATION MANUAL( AUTOMATED BLOOD COUNTS AND [...] Normal 80 and above >32 mL/min Normal RBC 4.54 10E6/uL 4.20-6.30 [facility] NORMAL RANGES Age WBC RBC HGB HCT [...] HCT IS 5% LESS SOURCE FOR DATA: Genlot 1800 OPERATION MANUAL( AUTOMATED BLOOD COUNTS AND [...] Normal 80 and above >32 mL/min Normal HCT 43.4 % 37.0-51.0 [facility] NORMAL RANGES Age WBC RBC HGB HCT [...] HCT IS 5% LESS SOURCE FOR DATA: Genlot 1800 OPERATION MANUAL( AUTOMATED BLOOD COUNTS AND [...] Normal 80 and above >32 mL/min Normal HGB 14.8 g/dL 12.0-18.0 [facility] ([facility] NORMAL RANGES Age WBC RBC HGB HCT [...] HCT IS 5% LESS SOURCE FOR DATA: YAKOV DYN 1800 OPERATION MANUAL( AUTOMATED BLOOD COUNTS AND [...] Normal 80 and above >32 mL/min Normal MCV 95.6 fL 80.0-97.0 [facility] ([facility] NORMAL RANGES Age WBC RBC HGB HCT [...] HCT IS 5% LESS SOURCE FOR DATA: Genlot 1800 OPERATION MANUAL( AUTOMATED BLOOD COUNTS AND [...] Normal 80 and above >32 mL/min Normal MCHC 34.1 g/dL 31.0-36.0 [facility] ([facility] NORMAL RANGES Age WBC RBC HGB HCT [...] HCT IS 5% LESS SOURCE FOR DATA: Genlot 1800 OPERATION MANUAL( AUTOMATED BLOOD COUNTS AND [...] Normal 80 and above >32 mL/min Normal MCH 32.6 pg 26.0-32.0 Above high normal [facility] ([facility] NORMAL RANGES Age WBC RBC HGB HCT [...] HCT IS 5% LESS SOURCE FOR DATA: Genlot 1800 OPERATION MANUAL( AUTOMATED BLOOD COUNTS AND [...] Normal 80 and above >32 mL/min Normal PLT 227 10E3/uL 140-440 [facility] ([facility] NORMAL RANGES Age WBC RBC HGB HCT [...] HCT IS 5% LESS SOURCE FOR DATA: Genlot 1800 OPERATION MANUAL( AUTOMATED BLOOD COUNTS AND [...] Normal 80 and above >32 mL/min Normal RDW-CV 13.7 % 11.5-14.5 [facility] ([facility] NORMAL RANGES Age WBC RBC HGB HCT [...] HCT IS 5% LESS SOURCE FOR DATA: Genlot 1800 OPERATION MANUAL( AUTOMATED BLOOD COUNTS AND [...] Normal 80 and above >32 mL/min Normal Lym% 11.1 % 10.0-58.5 [facility] ([facility] NORMAL RANGES Age WBC RBC HGB HCT [...] HCT IS 5% LESS SOURCE FOR DATA: Genlot 1800 OPERATION MANUAL( AUTOMATED BLOOD COUNTS AND [...] Normal 80 and above >32 mL/min Normal Neut% 83.0 % 37.0-92.0 [facility] ([facility] NORMAL RANGES Age WBC RBC HGB HCT [...] HCT IS 5% LESS SOURCE FOR DATA: Genlot 1800 OPERATION MANUAL( AUTOMATED BLOOD COUNTS AND [...] Normal 80 and above >32 mL/min Normal MXD% 5.9 % 0.1-24.0 [facility] ([facility] NORMAL RANGES Age WBC RBC HGB HCT [...] HCT IS 5% LESS SOURCE FOR DATA: Genlot 1800 OPERATION MANUAL( AUTOMATED BLOOD COUNTS AND [...] Normal 80 and above >32 mL/min Normal Neut# 11.6 % 2.0-7.8 Above high normal [facility] ([facility] NORMAL RANGES Age WBC RBC HGB HCT [...] HCT IS 5% LESS SOURCE FOR DATA: Genlot 1800 OPERATION MANUAL( AUTOMATED BLOOD COUNTS AND [...] Normal 80 and above >32 mL/min Normal Lym# 1.6 10E3/uL 0.6-4.1 [employer] ([facility] NORMAL RANGES Age WBC RBC HGB HCT [...] HCT IS 5% LESS SOURCE FOR DATA: Genlot 1800 OPERATION MANUAL( AUTOMATED BLOOD COUNTS AND [...] Normal 80 and above >32 mL/min Normal MXD# 0.8 10E3/uL 0.0-1.8 [facility] ([facility] NORMAL RANGES Age WBC RBC HGB HCT [...] HCT IS 5% LESS SOURCE FOR DATA: Genlot 1800 OPERATION MANUAL( AUTOMATED BLOOD COUNTS AND [...] Normal 80 and above >32 mL/min Normal MPV 9.7 fL 9.0-13.0 [facility] NORMAL RANGES Age WBC RBC HGB HCT [...] HCT IS 5% LESS SOURCE FOR DATA: Genlot 1800 OPERATION MANUAL( AUTOMATED BLOOD COUNTS AND [...] Normal 80 and above >32 mL/min Normal ID Date Data Source [id number] 11/27/2020 01:59:25 PM EDT [address] [address]Uuthkdo Name: MINOO CHAVISSHAWNOB: 1950Sex: MOrdering Provider: ITNG LORENZANAuthjossie Prov: TING DESOUZAReferrsiva Provider: Procedure Performed: US CAROTID BILATERALExam Date: 11/27/2020 13:55MRN: [id number] Number: [id number] Class: OutpatientAccount #: [id number] for Exam: TAVR protocolTechnique: Duplex sonography was performed.Comparison: NoneFindings: The right and left carotid systems were examined by Doppler sonography. Carotid stenosis measurements were performed using the NASCET method.RIGHT CAROTID SYSTEM:Common Systolic Velocity 49 cm/s End-Diastolic Velocity 12 cm/sInternal Systolic Velocity 52 cm/s End-Diastolic Velocity 17 cm/sExternal Systolic Velocity 48 cm/s End-Diastolic Velocity 5 cm/sVertebral Artery 15 Trickle flow cm/s Abnormal flowICA/CCA Systolic Ratio = 1.1 Internal Carotid Artery Stenosis: Less than 50%LEFT CAROTID SYSTEM:Common Systolic Velocity 52 cm/s End-Diastolic Velocity 13 cm/sInternal Systolic Velocity 46 cm/s End-Diastolic Velocity 10 cm/sExternal Systolic Velocity 76 cm/s End-Diastolic Velocity 13 cm/sVertebral Artery 32 cm/s Antegrade flowICA/CCA Systolic Ratio = 0.9 Internal Carotid Artery Stenosis: Less than 50%IMPRESSION: Less than 50% bilateral ICA stenoses.Abnormal flow right vertebral artery.If patient has symptoms referable to the posterior circulation, then CTA may be helpful for further imaging evaluation.Report electronically signed by: NASIR HOPSON On 11/27/2020 1:59 PMWorkstation ID: [id number] Name Value Range Interpretation Code Description Data Ximena rce(s) Supporting Document(s) ID Date Data Source [id number] 11/27/2020 12:22:13 PM EDT [facility] Name Value Range Interpretation Code Description Data Ximena rce(s) Supporting Document(s) &PDF [facility] ZHJAFb4iQeTKEqHo00/BCTyeIXUnr4TkMEyjCQv5CJnoMJNcS1PqyHrmKHZLJhAeTsOYAQ9LLYMYWJzY hdG [file] ICAgICAgICAgICAgICAgICAgICAgICAgICAgICAgICAgICAgICAgICAgICAgICAgICAgICAgICAgICAg ICAgICAgICAgICAgICAgICAgICAgICAgICAgICAgIC AjTHDjVD3ZZUYlPUNgWRMsQGAwDAFfIYAkICBlJQVrNKRbUPAaTJVvCHWhOKAiTYTbWLFcVIYxPWWvNF FvLVZsDUMgYLLtHNFzPAQiIQGtBBKuQWXfDABrHGNfHZZjOLKmWOQfBIBfYEJlDA5OOHPmFTPxGATxCW AgICAgICAgICAgICAgICAgICAgICAgICAgICAgICAg RUQaSNNhOTXeTHDpNNEmQDQxNFSkBSZzSHJkESLmGKVkDPBoGJNgEJDhWOMcZCXwDGBsOJKfYHPyXK3A ICAgICAgICAgICAgICAgICAgICAgICAgICAgICAgICAgICAgICAgICAgICAgICAgICAgICAgICAgICAg ICAgICAgICAgICAgICAgICAgICAgICAgICAgICAgIC TvKYCpRANbUN7MQFEbBGVvCSDpKQTqHUSlJGUdZNLiFTWeOXBvPIXvSZDrKVIfLPLcXZUyCIUgGLNmEK NhQHDfMDBzIRClJHQwFQBsCGSaGHNoGYSuFYPfVLBsBIZxNJSyZKEoVEWjUHIgZXCgNX7YUSSlPSAhKF AgICAgICAgICAgICAgICAgICAgICAgICAgICAgICAg ICAgICAgICAgICAgICAgICAgICAgICAgICAgICAgICAgICAgICAgICAgICAgICAgICAgICAgICAgICAg TA1XTDLeJDEyYIKtPMNqBARmGDIbNGTtXBIqCDCcESAdDXJbVILmFARsJGUtJLFzGJIiKASxWCBfUKSq ICAgICAgICAgICAgICAgICAgICAgICAgICAgICAgIC PcMIEnPOCaLPLsKL5KXWVpRVGfVMNrEMWvRPLrEAYzDWRuOGLoJTQaMCSxSYKtMQGrEBNrLYPzLIWfPJ IlIVCzTDQpQXArTRFyHDPrILEaGIAgTNSsFQMpFBSkLDIuUNViVAKuSRBwUSEgFHGhEFEvEO3XWQNlNU AgICAgICAgICAgICAgICAgICAgICAgICAgICAgICAg ICAgICAgICAgICAgICAgICAgICAgICAgICAgICAgICAgICAgICAgICAgICAgICAgICAgICAgICAgICAg YXKdQP4WIAUwFKZrMGBmAMGvWFKuLPQhHMAvIDHnTQKvTMUnJZCbLQGbICOuKIQqOSPjFEOeDAPbHYYs ICAgICAgICAgICAgICAgICAgICAgICAgICAgICAgIC YcNSRtMLYvQUGjVUXxCZ0NMM19tTHoj4J8WNXfPG6trgu/Hd2YNHrvgpWnlSZoQP7LCaAtAX0nwq7JEi ZcNZ7wlw3QNXaGKaJsW7X7oNDdDELlAKGQRuLwS14gMNsnKd72MVrgPHZfNaAdNNy1Bx1IBwUoA1mvRI IaMrP9MWKsCyQ6CZKrTfE1KUQyOpWpUXSwDDKePX1U XXFlX122ynOuLD7BWs3GIvAcHL1wua1UWaxbYTCkHlnKXqz8KXbaND3MiFSvtNXtAEUbFICQLqZiI4ry l9SvNoHbQOYMYXobSJ8Ux2IseJLcLEt+Us8UUZ2ld6UqFBpjQAKfGH3ktv8LKSmMEqBwE6KetSjfOStp hDlqjbFiFE5NLHJeHGTvhFJyYHryWQARKF2UNTmvVH D3WFNufwKpdDDsTEkcXA6ENWHzblQvUzgrFZSNCZi+Yl5ETN8ir0KgLOdiLFDxWZ4vay6GOJsYXlPrJ6 E1xYDtQ2P3NBdrPg8LHAKhXFOyHvrlIBCOVFblRI3BTY1cpxW9NQ4RxOIlVMDoNQTzsWSbRGh0M76egK GlOUviPX6OYBE+Concha+Mr9WZDMpJDKsYNLrCoHeMFDP NpYhE9NuQ5CAw3OgS5AvBE62zHjmjmTmCHnwNU9SCG7tYYQlKWIKTG6EcYIrhB9lcnKfXEPeCVUZTcAv H69vjWXxPPWpARS8TXLsTv5JTHZoX5WnfcGloWakgiJaVSTeJMQZAZ7BRZgifrZleKZitHmsBD87xHhe JT1XSp4JRzAfUK4hjk7SjAGoNq7AZQIuYu8JSHUfSW BaVNOkOHL9HGYuYjUmWVmlPKDjBPPbZVS9FTIyLPAuCP9KIzUvBSVnFEC4RLCoJDGwNISrzo4TINLkDF U8NvBnXNSbZIJeMFKqQDxoFFYcUESwKQi7WYQyZMLrYA8LCbBtKCIdSUWeQHRlZTMfNMHeby1LCBHkUS UhGtCjBDDiNZMtJPBvAImsRTYtWPA7HDVqEXBtHDKm WO8TGpNuBQEpZYT9EytrTJKnUWFabb0GIIQqWTXmYhaeRVUuJNRyEREvTQzzCLToMRZ9VDV6XOOfOTIq XC7ZWbEwAAVxTMb2AIYaQNElEMFoie2ARNPbIYOzZVumLWRhQNIyAWJnDZmwCDRgFSFdShYjZWZoCFDl QC9KPdUoOMMlDHS7CGfyBZKyUXStnf8ROUQtLDMvSI J1WQFgDPXiKFPsMJucQWMuYTSlGNCiXTUwXQRoKL6KKdFnIOJsCWEiHGPvEJIpYUTjoc6UEJWdTSQyWn U0OFRqHBTwYWEkVKirQCBqECU4NeM3ONHbGBQxOL4URbZnTXEbNEi3RrFgMFSoHCRkrj5KWLJpNLVgEb s7XXYeZKQtJSOxXEjdPPHvVGN2EHR3ZQIsLTJdHO8K CqXnSZQwUWxvLvWhHLFfJACrqe8ETEClEWGcKsZ8VvSxRJIeAPWtDOvgPJZlLGAtDMH6BJNbHSMpMJ6P DpXhTSTrThP7ZobpGJNsSOClmv6YNVOxIMZ4INyqYZVbYONcISNhTSksVHUgHLVeATb6FUDgSNSkNL2H WlFpWVHwCPK8JLLzHAPgPUTxfz9NOAPeQIO8VzlgZk VuMDQlHKKxFWtxICJrHFYsCVA7UNPsGOXsFX4RVaJuLWzaUYDELhl2BDguF0z3RSKwDr0ZO1Xmm2IfKz RzAPGVZNmcGQ5bwlJuMCMlIy3TY3kJHzu6THZzMbN2WWOtVHyaNqCrTEnwHwb2YJZqJtF6NoJsCp7uPM cjJpM4BKclC9UoLOAjBSTwQJTlAGxdZFGpRGRnB2Zz LuMdOX4QDs9REhZ3KBT6gRXfUe6JTWWzUlkXQwYvST9WQZe= ID Date Data Source [id number] 11/27/2020 12:24:50 PM EDT [facility] [place] INFORMATIONPatient MRN Name Date of Age Gend*PT [id number] VelasquezKeithMinoo E III 1950 70 years M HOPPT Location Admission Date/Time Visit ID Attending [id number] 11/27/20628 --- Callie Enamorado MD([id number]) EPI ID CSN Admitting Provider [id number] Callie Enamorado MD([id number])Cardiology H&P The patient is a 70-year-old man with a complex medical history including severeCOPD, coronary disease status post extensive prior coronary stenting, and aorticstenosis status post SAVR. 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 Plan for the femoralapproach.Shanique Ramírez MD [facility] Name Value Range Interpretation Code Description Data Ximena rce(s) Supporting Document(s) ID Date Data Source [id number] 11/27/2020 10:28:46 AM EDT [facility] Name Value Range Interpretation Code Description Data Ximena rce(s) Supporting Document(s) &PDF [facility] UCTYIw6dNfKYKsBp65/YTZicXIEsg2IdFOzyCUt2CWrbSTCeS8AdgXqzJJRNKsHkNeCQFL6QGXZDJShC hdG [file] ICAgICAgICAgICAgICAgICAgICAgICAgICAgICAgICAgICAgICAgICAgICAgICAgICAgICAgICAgICAg ICAgICAgICAgICAgICAgICAgICAgICAgICAgICAgICAgICAgDQogICAgICAgICAgICAgICAgICAgICAg ICAgICAgICAgICAgICAgICAgICAgICAgICAgICAgIC AgICAgICAgICAgICAgICAgICAgICAgICAgICAgICAgICAgICAgICAgICAgICAgDQogICAgICAgICAgIC AgICAgICAgICAgICAgICAgICAgICAgICAgICAgICAgICAgICAgICAgICAgICAgICAgICAgICAgICAgIC AgICAgICAgICAgICAgICAgICAgICAgICAgICAgDQog ICAgICAgICAgICAgICAgICAgICAgICAgICAgICAgICAgICAgICAgICAgICAgICAgICAgICAgICAgICAg ICAgICAgICAgICAgICAgICAgICAgICAgICAgICAgICAgICAgICAgDQogICAgICAgICAgICAgICAgICAg ICAgICAgICAgICAgICAgICAgICAgICAgICAgICAgIC AgICAgICAgICAgICAgICAgICAgICAgICAgICAgICAgICAgICAgICAgICAgICAgICAgDQogICAgICAgIC AgICAgICAgICAgICAgICAgICAgICAgICAgICAgICAgICAgICAgICAgICAgICAgICAgICAgICAgICAgIC AgICAgICAgICAgICAgICAgICAgICAgICAgICAgICAg DQogICAgICAgICAgICAgICAgICAgICAgICAgICAgICAgICAgICAgICAgICAgICAgICAgICAgICAgICAg ICAgICAgICAgICAgICAgICAgICAgICAgICAgICAgICAgICAgICAgICAgDQogICAgICAgICAgICAgICAg ICAgICAgICAgICAgICAgICAgICAgICAgICAgICAgIC AgICAgICAgICAgICAgICAgICAgICAgICAgICAgICAgICAgICAgICAgICAgICAgICAgICAgDQogICAgIC AgICAgICAgICAgICAgICAgICAgICAgICAgICAgICAgICAgICAgICAgICAgICAgICAgICAgICAgICAgIC AgICAgICAgICAgICAgICAgICAgICAgICAgICAgICAg ICAgDQogICAgICAgICAgICAgICAgICAgICAgICAgICAgICAgICAgICAgICAgICAgICAgICAgICAgICAg ZHZkQYFqIDRqBFWeDJOmEFEmXBHpLGJnTZDeJJTvWLHaYUTqTQGaWQZiFXZdCWj9H9pxCFRdQNNmED7v DGt2Dz3+UKpDXtZeXEB8wfTzvH2TMW0de6TvKXpoWX Xxr8BzWTj2CN8FHWGnTWbsQU9ZWTvlkq7XRXYmXLVxsQJIo6btTcFnRSB5XZHdAuzvXI3TCDWyE6jwxa NgIORaWGOCTWiyPZJTCJ8SOtGgI9QhrB50LTBTBg5+XOgmpgSqRkwOVoK0SFFre3OmDXy9UF1YVMOqDU ddRL4UOXSkeZ3fJXwxLQ8ZQhNtJFOyFKKEAgKiU68x zKBlRJj7C6VqEsBxNMMsFvlyDDVvPEovMhMkVZWdFrVlZMiqAO0+ID4+JBcjAJ4KDMcgucBwGONpHe3B EIFoUIF2TIUpjWZmWiVwQKKGSKgjDA2DyEYcVZE7xM0vTLbqWLXzCUNsI5vXQoZxqFunOI57yPxnjaDh bCBdDQo+Pj5DLJ7wb1ShULa5lpWzOVmwFFZ8TDxoGR NdTRKkCAPsYVV6BIX7IBJMTqDhCJTgUSUlNCeuDCWhWUUoks1YIHIvSLGdFvnqNyVfJIAnOHIxHEmhLW FxHRH1IdOzNVZsPDObXD4BClUlBMXsAILkNBXcFKYwFMVznr7BZZXoGQVqXsX8LtDjHHUkSFBsQFlnWN JqOAGlLeolCSKzOMTfZX6EYnUoKTYtCSH0PsPcSFYj HYOnlh9QBFIbFMJaTWVxYAOdMTIlICKiXEcmNKIwRGL0CVi9XXXjAFMsJC4YIqNkOOGiOON8FWLvMBUc AZUobc8UDZVzZKFdTEe0CRHeBJXmIDRkQYftHWEnJVQ2XDOcSXDaYQOzBE9VRdMsZNNeRNwxVzLzUXNa EYTovy9NVSBtISFjHmVlDJRoINFpEMKoKVxoZNMeZG YiTZV3ZWPwAFYmAC0PDmAnJNHqLLQ4IGCuWJMqFIZfbt6RJQYiEYVxDuR7KKYhNWAzAEDwHVsyUGRyMM ReYWE1CFLaQKKuFU8ZEbAhYSJkNVVpPKBnLPVsGBIuzq5IMXUlODTjFRMfVIBjVBHuHUHcIDxuMBDqWY N2InC7DDLqWMPrWK5CWjJuMXGcGSJkFINuRPXrEQAl mo0HAQMkJBSpBFK5FWZbYYMcLKXyGIgxYIUpWMJdFSQ0GZMkARUnVD5CGkAiQKCsCyIcBeXlIFRnXDOn fs1CBYQiRLJeBQpxIBXoNYAoIIYiUEt6bwCfnJGxEYn9BG2RR6OfpnSoKplJQr0Ph853QJB5LSHgYf6K Y3phEv6dHCDhJBUGXs2SMOa6U5MxJaU0XHL5DELgPD E9TRWiNed9KuFpSwLnEWVnKiU+IHnqFqKnDsmuWNptByK6UgDhTHQsGJEnUFNhREJmFFZdTl3fXBFJKr 4+ZQytcLOokKorLFWDJbP5BPidJPumERVVSa7P ID Date Data Source [id number] 11/27/2020 09:35:23 AM EDT [facility] [place] INFORMATIONPatient MRN Name Date of Age Gend*PT [id number] Minoo Velasquez III 1950 70 [facility] Ad[facility] Date/Time Visit ID Attending [id number] 11/27/2029 --- Callie Enamorado MD([id number]) EPI ID CSN Admitting Provider [id number] Callie Enamorado MD([id number])Patient has been seen and evaluated there is no change from the most recentevaluation Name Value Range Interpretation Code Description Data Ximena rce(s) Supporting Document(s) ID Date Data Source [id number] 11/27/2020 07:43:46 AM EDT [facility] Name Value Range Interpretation Code Description Data Ximena rce(s) Supporting Document(s) EKG [facility] NIKCSp5xQyPFVlHzq0LsZtMtWVIyII9wpcs8R4O0tRKhW4IadWWbj9meJ7CpB2EsBKOzQOYMTT6MrADf jb2 [file] riWfDRNkPUMGNa4If260THYdJQWQWec+IxstvPLkvVxhQBIJXOw6UfFFJPTOL7U= ID Date Data Source [id number] 11/27/2020 09:11:10 AM EDT [facility] Name Value Range Interpretation Code Description Data Xiemna rce(s) Supporting Document(s) SPECIMEN DESCRIPTION [facility] INFLUENZA A (NEG) [facility] [place] [facility] INFLUENZA B (NEG) [facility] [place] [facility] RSV (NEG) [facility] [place] [facility] [place] COMMENT [facility] [place] [facility] THE [place] FDA HAS MADE THIS TEST AVAILABL JARRETER AN EMERGENCY USE AUTHORIZATION(EUA) FOR THE DETECTION AND/OR DIAGNOSISOF THE VIRUS THAT CAUSES COVID-19.PERFORMED AT [address] [place] [address] COVID19 RESULT (NDET) [facility] [place] [facility] THIS ASSAY AMPLIFIES AND DETECTSTHE TARG ET RNA USING REAL-TIME PCR.TESTING PERFORMED ON [employer] GENEXPERTNEGATIVE 2019_NCOV RT-PCR RESULTS DONOT PRECLUDE 2019_NCOV INFECTION ANDSHOULD NOT BE USED THE SOLE BASISFOR PATIENT MANAGEMENT DECISIONS. FIRST TEST [facility] [place] [facility] EMPLOYED IN HLTHCARE [facility] [place] SYMPTOMATIC [facility] [place] DATE OF SYMPT ONSET [facility] HOSPITALIZED [facility] [place] ICU [facility] [place] [facility] [place] CONGREGATE CARE SET [facility] [place] [facility] ID Date Data Source [id number] 11/27/2020 08:58:58 AM EDT [facility] [place] Name Value Range Interpretation Code Description Data Ximena rce(s) Supporting Document(s) SODIUM 136 mmol/L (136-145) [facility] [place] [facility] [place] POTASSIUM 3.8 mmol/L (3.6-5.2) [facility] [place] CHLORIDE 94 mmol/L (100-108) L [facility] [place] [facility] [place] CO2 32 mmol/L (22-31) H [facility] [place] [facility] [place] ANION GAP 10 mmol/L (7-16) [facility] [place] [place] UREA NITROGEN 44 mg/dL (7-24) H [facility] [place] [facility] [place] CREATININE 1.11 mg/dL (0.80-1.30) [facility] [place] [facility] [place] BUN/CREAT RATIO 39.6 RATIO (10.0-20.0) H [facility] GLUCOSE 279 mg/dL (70-99) H [facility] [place] [facility] [place] CALCIUM 11.4 mg/dL (8.4-10.2) H [facility] [place] [facility] [place] GFR >60 ml/min/1.73m2 (>59) [facility] [place] [place] [place] GFR ( AMER) >60 ml/min/1.73m2 (>59) [facility] [place] [facility] [place] GFR INTERPRETATION [facility] [place] --NORMAL KIDNEY FUNCTION OR MILD DISEASE - GFR >OR= 60CHRONIC KIDNEY DISEASE - GFR 15 - 59RENAL FAILURE - GFR <15 Est. GFR calculation based on the MDRDstudy equation, which assumes a steadystate for creatinine. Est. GFR should notbe used for medication dosing. ID Date Data Source [id number] 11/27/2020 08:37:43 AM EDT [facility] [place] Name Value Range Interpretation Code Description Data Ximena rce(s) Supporting Document(s) WBC 17.0 10*3/uL (4.1-11.0) H [facility] [place] [facility] [place] RBC 5.39 10*6/uL (4.60-6.10) [facility] [place] [facility] [place] HGB 17.7 g/dL (13.5-18.0) [facility] HCT 51.4 % (41.0-53.0) [facility] [place] PERFORMED AT [address] [place] [address] N [place] [address] MCV 95.4 fL (80.0-95.0) H [facility] [place] [facility] [place] MCH 32.8 pg (27.0-32.0) H [facility] [place] [place] MCHC 34.4 g/dL (32.0-36.0) [facility] [place] RDW 13.6 % (10.5-14.5) [facility] [place] [facility] PLT 232 10*3/uL (150-450) [facility] [place] [facility] MPV 8.0 fL (7.1-10.7) [facility] [place] [facility] ID Date Data Source [id number] 11/27/2020 06:56:00 AM EDT [facility] Name Value Range Interpretation Code Description Data Ximena rce(s) Supporting Document(s) SARS coronavirus 2 RNA [Presence] in Res piratory specimen by GLORIA with probe detection NOT DETECTED [facility] This lab was reported by [facility] [place] [facility]. ID Date Data Source [id number] 11/25/2020 04:48:38 PM EDT [facility] [place] INFORMATIONPatient MRN Name Date of Age Gend*PT [id number] Minoo Velasquez III 1950 70 years M ---PT Location Admission Date/Time Visit ID Attending Provider --- --- --- --- EPI ID CSN Admitting Provider [id number] ---Cardiology Office VisitSubjectiveChief Complaint: Hospital follow-up visitHPI:This patient is a 70 years male with a past medical history stated below1. Valvular heart disease. Status post bovine aortic valve replacement 2009.2. COPD with chronic hypoxic respiratory failure, bronchiectasis with chronicantibiotic therapy alternating between cefdinir and ciprofloxacin3. Diabetes mellitus4. Obstructive sleep apnea5. Hypertension6. Coronary artery disease status post multiple stent placement to RCA, LCx, andLeft main. Cardiac catheterization 10/24/2018 all previous stents patent. Focal50 percent lesion in RCA. Medical management recommended.7. Peripheral arterial disease status post left femoral endarterectomy 44721. Iron deficiency anemia9. Vitamin B12 deficiencyWho presents to the office today for follow-up. He is accompanied by his wifeAlly. Patient was [facility] for shortness of breath for3 to 4 weeks. Patient originally saw his primary care provider and was startedon treatment for COPD exacerbation without improvement. He was found to be inacute hypercarbic and hypoxic respiratory failure which was initially felt to bedue to COPD exacerbation. He was started on BiPAP and given a dose of Lasix,methylprednisolone, along with standard COPD treatments. Patient had a negativebalance of 16,000 mL overnight with dramatic improvement in symptoms. It wasthought symptoms were more likely due to CHF exacerbation rather than COPD.Patient did have an echocardiogram performed showing a reduced LVEF of 38% withsevere aortic stenosis with a valve area of less than 0.7 cm . Mean aorticvalve gradient 49 mmHg.Patient continues to feel short of breath with little exertion. He alsocomplains of weakness and fatigue.Review of SystemsThis patient denies otherwise, weight loss or weight gain, fevers, chills,sweats, change in urine or change in bowel habits, breast, lung, liver or kidneydisease. She denies hematologic, neurologic, dermatologic, pulmonary,psychiatric, orthopedic, endocrine, hematologic, gastroenterologic, infectious,oncologic, gynecologic or gender specific diseases.Past HistoryPast M edical History:Diagnosis Date COPD (chronic obstructive pulmonary disease) Coronary artery disease Diabetes mellitus Disease of thyroid gland Diverticulitis Emphysema GI bleed Hypertension Sleep apnea Sleep apneaPast Surgical History:Procedure Laterality Date AORTIC VALVE REPLACEMENT BACK SURGERY CARDIAC CATHETERIZATION 07/13/2012 CARDIAC CATHETERIZATION N/A 10/24/2018 Procedure: Cardiac catheterization; Surgeon: Shanique Ramírez MD; Laterality:N/A; CARDIAC CATHETERIZATION N/A 10/24/2018 Procedure: Angioplasty-coronary; Surgeon: Shanique Ramírez MD; Laterality:N/A; CORONARY STENT PLACEMENT 12 stentsFamily HistoryProblem Relation Age of Onset Myocardial Infarction (DC) Father Healthy, No Significant History MotherSocial HistorySocioeconomic History Marital status: Spouse name: Not on file Number of children: Not on file Years of education: Not on file Highest education level: Not on fileOccupational History Not on fileTobacco Use Smoking status: Former Smoker Packs/day: 1.00 Years: 30.00 Pack years: 30.00 Types: Cigarettes, Pipe, Cigars Quit date: 11/24/2009 Years since quittin.0 Smokeless tobacco: Never UsedSubstance and Sexual Activity Alcohol use: No Drug use: No Sexual activity: Not on fileOther Topics Concern Bike Helmet Not Asked History of Breast Feeding Not Asked Self-Exams Not Asked Caffeine Concern Not Asked Hobby Hazards Not Asked Sleep Concern Not Asked Daily Calcium Supplement Not Asked Lead Exposure Not Asked Special Diet Not Asked Daily Vitamin D Supplement Not Asked Service Not Asked Stress Concern Not Asked Domestic Violence in home Not Asked Radon exposure Not Asked Weight Concern Not Asked Exercise Not Asked Seat Belt Not Asked Well water Not Asked Firearms in home Not AskedSocial History Narrative Not on fileSocial Determinants of HealthFinancial Resource Strain: Difficulty of Paying Living Expenses:Food Insecurity: Worried About Running Out of Food in the Last Year: Ran Out of Food in the Last Year:Transportation Needs: Lack of Transportation (Medical): Lack of Transportation (Non-Medical):Physical Activity: Days of Exercise per Week: Minutes of Exercise per Session:Stress: Feeling of Stress :Social Connections: Frequency of Communication with Friends and Family: Frequency of Social Gatherings with Friends and Family: Attends Sikh Services: Active Member of Clubs or Organizations: Attends Club or Organization Meetings: Marital Status:Intimate Partner Violence: Fear of Current or Ex-Partner: Emotionally Abused: Physically Abused: Sexually Abused:Medications and AllergiesAllergiesAllergen Reactions Fexofenadine Other (See Comments) Reaction: SHORT OF BREATH Comment: 05/09/2008 @ 1447- PER PATIENT FROM [facility]- PATIENT HAS BEEN TAKING BENADRYL W/O PROBLEM..BETTY Furosemide dizziness, upset stomach Levofloxacin Reaction: LEG CRAMPS Penicillins Reaction: THROAT SWELL11/10/17 per no longer allergic, he was tested Quinine Reaction: HIVES Comment: FACIAL SWELLING Rosuvastatin Reaction: MUSCLE ACHESCurrent Outpatient MedicationsMedication Sig Dispense Refill aclidinium bromide (TUDORZA PRESSAIR) 400 MCG/ACT AEPB inhaler Inhale 1 puff 2(two) times a day aclidinium bromide (TUDORZA) 400 MCG/ACT AEPB inhaler Inhale 1 puff 2 (two)times a day albuterol (PROVENTIL) (2.5 MG/3ML) 0.083% nebulizer solution 1 vial four timesa day as needed DX:J44.1 ascorbic acid (VITAMIN C) 500 MG tablet Take 1,000 mg by mouth daily B-Complex-C TABS Take 1 tablet by mouth daily Brimonidine Tartrate (ALPHAGAN P OP) Apply to eye 2 (two) times a day budesonide (PULMICORT) 0.5 MG/2ML nebulizer solution Take 0.5 mg bynebulization every 12 (twelve) hours carvedilol (COREG) 6.25 MG tablet Take 6.25 mg by mouth 2 (two) times a day cefdinir (OMNICEF) 300 MG capsule Take 300 mg by mouth 2 (two) times a day cholecalciferol (VITAMIN D3) 1000 UNITS capsule Take 2,000 Units by mouthdaily ciprofloxacin (CIPRO) 500 MG tablet Take 500 mg by mouth 2 (two) times a day citalopram (CELEXA) 20 MG tablet Take 20 mg by mouth nightly clopidogrel (PLAVIX) 75 MG tablet Take 1 tablet (75 mg total) by mouth daily90 tablet 3 Empagliflozin 25 MG TABS Take by mouth famotidine (PEPCID) 40 MG tablet Take 40 mg by mouth daily ferrous sulfate 325 (65 FE) MG tablet Take 325 mg by mouth 2 (two) times a daywith meals folic acid (FOLVITE) 1 MG tablet Take 1 mg by mouth daily formoterol (PERFOROMIST) 20 MCG/2ML nebulizer solution 1 neb twice a daydx:J44.9 formoterol (PERFOROMIST) 20 MCG/2ML nebulizer solution Take 20 mcg bynebulization 2 (two) times a day GUAIFENESIN 1200 PO Take by mouth ibandronate (BONIVA) 150 MG tablet Take 150 mg by mouth every 30 (thirty) days0 ibandronate (BONIVA) 150 MG tablet Take 150 mg by mouth every 30 (thirty) days Immune Globulin, Human, 4 GM/20ML SOLN Inject under the skin ipratropium (ATROVENT) 0.02 % nebulizer solution 1 vial via neb four times aday dx:j44.1 metFORMIN (GLUCOPHAGE) 500 MG tablet Take 500 mg by mouth 2 (two) times a daywith meals montelukast (SINGULAIR) 10 MG tablet Take 10 mg by mouth daily 3 nitroglycerin (NITROSTAT) 0.[address] 1 tablet (0.4 mg total) underthe tongue every 5 (five) minutes as needed for chest pain 25 tablet 1 nystatin (MYCOSTATIN) 073159 UNIT/ML suspension 0 omeprazole (PRILOSEC) 40 MG capsule Take 40 mg by mouth daily OXYGEN-HELIUM IN @ 2 liters n/c at night predniSONE (DELTASONE) 10 MG tablet Take 20 mg by mouth daily Probiotic Product (PROBIOTIC ADVANCED PO) Take by mouth ranitidine (ZANTAC) 300 MG tablet Take 300 mg by mouth nightly torsemide (DEMADEX) 20 MG tablet Take 20 mg by mouth daily Travoprost (TRAVATAN Z OP) Apply to eye daily zinc sulfate (ZINCATE) 220 (50 Zn) MG capsule Take 50 mg by mouth daily Calcium Citrate-Vitamin D3 315-6.25 MG-MCG TABS Take by mouthNo current facility-administered medications for this visit.PhysicalBP 122/70 (BP Location: Left upper arm) | Pulse 116 | Temp 96.8 F | Wt 62.6kg (138 lb) | SpO2 94% Comment: 2l | BMI 20.98 kg/m Physical Exam:Neck: Trachea is midline, there is no JVD, there are no bruitsCardiac: S1, S2, physiologically split. Rhythm is regular. There is no S3. Thereis no S4. PMI is in the fourth LICS AAL.There were no lifts, heaves, rubs orthrills.Lungs: Are clear to auscultation and percussion without rhonchi, rubs rales orwheezes. Diaphragmatic excursion is normal. Inspiratory and expiratory durationsare normal.Extremities: Are without erythema, cyanosis, clubbing or edema.Neurologic/psychiatric: Cranial nerves, strength, sensory, reflexes, cereb ellum,orientation, mood and affect are unremarkable. A very cursory psychiatricexamination exhibits no obvious psychiatric issues.Skin: Is warm and dry. There are no definitive areas of cellulitis or unusualskin findings.DiagnosticsLab:No visits with results within 1 Month(s) from this visit.Latest known visit with results is:Ancillary Procedure on 07/17/2019Component Date Value Ref Range Status BSA 07/17/2019 1.84 m2 Final Pt Height 07/17/2019 1.73 m Final Weight 07/17/2019 70.76 kg Final Systolic BP Echo 07/17/2019 152.00 mmHg Final Diastolic BP Echo 07/17/2019 72.00 mmHg Final Right cyst dimensions length 07/17/2019 50.70 Percent Final LV VOLUME DIASTOLE MMODE 07/17/2019 153.00 cm3 Final LV VOLUME SYSTOLE MMODE 07/17/2019 75.50 cm3 Final IVS 07/17/2019 1.25 0.6 - 1.1 cm Final LVIDD 07/17/2019 4.78 3.50 - 6.00 cm Final LVOT diameter 07/17/2019 2.1 cm Final LVOT mn grad 07/17/2019 1.0 mmHg Final LVOT peak VTI 07/17/2019 16.40 cm Final LVOT Mean Tamika 07/17/2019 0.54 m/s Final LVOT peak tamika 07/17/2019 0.76 m/s Final AV LVOT peak gradient 07/17/2019 2.00 mmHg Final PW 07/17/2019 1.24 0.6 - 1.1 cm Final MV E' Lateral Tissue Tamika 07/17/2019 0.10 m/s Final E/E' Lateral Ratio 07/17/2019 8.80 no units Final LVOT area 07/17/2019 3.46 cm2 Final LVOT stroke volume 07/17/2019 56.77 cm3 Final LA size 07/17/2019 1.72 cm Final LA size 07/17/2019 3.41 cm Final LA size 07/17/2019 3.44 cm Final LA size 07/17/2019 3.47 cm Final LA size 07/17/2019 3.50 cm Final LA size 07/17/2019 3.47 cm Final LA size 07/17/2019 3.41 cm Final LA size 07/17/2019 3.41 cm Final LA size 07/17/2019 3.38 cm Final LA size 07/17/2019 3.35 cm Final LA size 07/17/2019 3.35 cm Final LA size 07/17/2019 3.26 cm Final LA size 07/17/2019 3.17 cm Final LA size 07/17/2019 3.02 cm Final LA size 07/17/2019 2.90 cm Final LA size 07/17/2019 2.72 cm Final LA size 07/17/2019 2.44 cm Final LA size 07/17/2019 2.23 cm Final LA size 07/17/2019 1.90 cm Final LA size 07/17/2019 1.33 cm Final Left atrial length medial-lateral * 07/17/2019 4.41 cm Final LA Area Sys (A2C) 07/17/2019 13.00 cm2 Final LA ESV (A2C) 07/17/2019 31.50 cm3 Final Left Atrium [facility] 07/17/2019 3.60 cm Final LA/Ao Ratio 07/17/2019 1.20 no units Final Aortic valve mean velocity 07/17/2019 2.08 m/s Final AV mean gradient 07/17/2019 19.00 mmHg Final Aortic valve velocity time integral 07/17/2019 61.70 cm Final Ao peak tamika 07/17/2019 2.93 m/s Final AV peak gradient 07/17/2019 34.00 mmHg Final Aortic arch 07/17/2019 2.30 cm Final Ao root annulus 07/17/2019 3.00 cm Final Ascending aorta 07/17/2019 3.50 cm Final Inferior Vena Cava Diameter 07/17/2019 1.51 cm Final E wave decelartion time 07/17/2019 259.00 ms Final MV Peak A Tamika 07/17/2019 0.90 m/s Final MV Peak E Tamika 07/17/2019 0.90 m/s Final E/A ratio 07/17/2019 1.00 Final RVDD 07/17/2019 2.47 cm Final AV Velocity Ratio 07/17/2019 0.26 FinalImaging/Testing: N/AEKG: Sinus tachycardia, left atrial management, probable LVHAssessment & PlanPatient Active Problem ListDiagnosis Disease of thyroid gland Diabetes mellitus Coronary artery disease Chest pain Shortness of breath Atherosclerosis of [place] coronary artery of [place] heart Type 2 diabetes mellitus with complication Sleep apnea Hypertension1. Systolic CHF; patient is on a beta-jenny and diuretic therapy. His weightis down since his last visit. He will continue to monitor daily weights andcall with any abnormal weight gain more than 3 pounds in a day or more than 5pounds in a week. Discussed the importance of low-sodium diet. Patient wasgiven a lab requisition for repeat BMP and proBNP to be completed within thenext week or 2.2. Bioprosthetic aortic valve stenosis; we will set patient up for JERI andcardiac catheterization. He may be a candidate for transaortic valvereplacement. We will try to have this scheduled CATALINA.3. Hyponatremia; this will be rechecked as stated above.4. Coronary artery disease; as aboveSignature: NIRMAL Hernandezate: November 25, 2020Time: 4:48 PM Name Value Range Interpretation Code Description Data Ximena rce(s) Supporting Document(s) ID Date Data Source [id number] 11/22/2020 09:51:00 PM EDT [facility] ([facility], ) Name Value Range Interpretation Code Description Data Ximena rce(s) Supporting Document(s) ABG pH (Arterial) 7.403 units 7.350-7.450 Normal (applie s to non-numeric results) [facility] ([facility], ) ABG Partial Pressure Co2 38.1 mmHg 35.0-45.0 Normal (applies to non-numeric results) [facility] ([facility], ) ABG Partial Pressure O2 304.1 mmHg 75.0-100.0 Above high normal [facility] ([facility], ) ABG Total Co2 24.4 meq/L 23.0-31.0 Normal (applies to non-numeric re sults) [facility] ([facility], ) ABG Hco3 23.2 meq/L 22.0-26.0 Normal (applies to non-numeric resul ts) [facility] ([facility]) ABG Base Excess -1.2 Normal (applies to non-numeric results) [facility] ([facility]) ABG Standard Hco3 23.5 meq/L 22.0-26.0 Normal (applies to non- numeric results) [facility] ([facility]) ABG O2 Saturation 99.4 % 95.0-99.0 Above high normal [facility] ([facility]) ID Date Data Source [id number] 11/22/2020 05:55:00 PM EDT [facility] Name Value Range Interpretation Code Description Data Ximena rce(s) Supporting Document(s) SARS-CoV-2 (COVID 19) NEGATIVE - SARS-CoV-2 (COVID19) [facility] This lab was ordered by [facility] a nd reported by [facility]. ID Date Data Source [id number] 10/23/2020 09:54:00 [place] [address] PHONE: [phone] FAX: [phone] Name .................. : EVA Abdullahi Acct Number.................. : [id number] ROOM. ................. : MR Number ................... : [id number] Stay type ............. : O/P Discharge Date......... ... : 10/22/20 Admit Date ......... : 05/18/21 Admit Phys .................... : OSWALD MORLEY Date of ....... : 1950 Family Phys ................... : OSWALD MORLEY Phone .................. : [phone] Age ................................ : 69 Film# .................. .:[id number] Sex ................................. : M Unsigned transcriptions are preliminary reports and do not represent a medical or legal document RIBS UNILAT W/PA CXR LT [id number] COMPLETE:10/22/20 11:35 RLH [id number] Reason for Exam: L LATERAL RIB DEFORMITY, TENDER LEFT RIB SERIES WITH PA CHEST: INDICATION: Left lateral rib deformity, tenderness. FINDINGS: There is a fracture identified of the posterolateral 8th rib. The remaining osseous structures appear to be intact. The soft tissues appear unremarkable. No evidence of a pneumothorax is identified. Chronic increased markings are present at the right lung base, unchanged since 2013. IMPRESSION: Left 8th rib fracture. Examination dictated by MARGA Cooper. Examination was reviewed with Onofre Kebede MD, radiologist at the time of this dictation. Electronically Reviewed and Signed By Onofre Kebede MD , 10/23/20 09:54, AML Transcribe Initials: EMMA , Transcribe Date: 10/23/20 04:44, Dictation Date: Copy for: OSWALD SHANIQUE via fax Copy for: [address] [place] [address] Page 1 of 1 Name Value Range Interpretation Code Description Data Ximena rce(s) Supporting Document(s) ID Date Data Source [id number] 10/08/2020 02:22:00 PM EDT [facility] ([facility], ) Name Value Range Interpretation Code Description Data Ximena rce(s) Supporting Document(s) FVC-Pred 4.20 L [facility] ([facility], ) PDFReport Laboratory test result [facility] ([facility]) FVC-Pre 2.00 L [facility] ([facility]) FVC-%Pred-Pre 47 L [facility] ([facility]) Fev1-Pred 3.11 L [facility] ([facility]) FVC-LLN 3.32 L [facility] ([facility]) Fev1-Pre 0.74 L [facility] ([facility]) Fev1-%Pred-Pre 23 L [facility] ([facility]) Fev6-Pred 3.97 L [facility] ([facility]) Fev1-LLN 2.37 L [facility] ([facility]) Fev6-%Pred-Pre 50 L [facility] ([facility]) Fev6-Pre 2.00 L [facility] ([facility]) Fev6-LLN 3.11 L [facility] ([facility]) Lci3nyn-Rsx 37 % [facility] ([facility]) [id number]-Sudx 74 % MEDENT ([facility]) Gdl1ecu-%Pred-Pre 50 % MEDENT ([facility]) Nmz7ssk-BKB 65 % MEDENT ([facility]) Shh4cmy-Fkyk 94 % MEDENT ([facility]) Rcj4xwn-%Pred-Pre 105 % MEDENT ([facility]) Deo8mji-Hnw 100 % MEDENT ([facility]) FEFMax-Pred 8.20 L/E/sec MEDENT ([facility]) FEFMax-LLN 6.01 L/E/sec MEDENT ([facility]) FEFMax-%Pred-Pre 18 L/E/sec MEDENT ([facility]) FEFMax-Pre 1.52 L/E/sec MEDENT ([facility]) Xvm5683-Nsj 0.44 L/E/sec MEDENT ([facility]) Ybh7395-%Pred-Pre 17 L/E/sec MEDENT ([facility]) Xbd9908-Gznv 2.44 L/E/sec MEDENT ([facility]) Jmb1710-DEO 0.93 L/E/sec MEDENT ([facility]) ExpTime-Pre 5.15 sec MEDENT ([facility]) Zfh8wbv5-Pqrp 78 % MEDENT ([facility]) Kcs4mmi9-%Pred-Pre 47 % MEDENT ([facility]) Cbh5cnd7-Ewv 37 % MEDENT ([facility]) Elq5xzl2-TQN 69 % MEDENT ([facility]) ID Date Data Source [id number] 08/27/2020 11:55:00 [place] [address] PHONE: [phone] FAX: [phone] Name .................. : VELASQUEZLazarus Ricci Number.................. : [id number] ROOM. ................. : MR Number ................... : [id number] Stay type ............. : O/P Discharge Date......... ... : 08/22/20 Admit Date ......... : 08/22/20 Admit Phys .................... : [facility] Date of ....... : 1950 Family Phys ................... : OSWALD [facility] Phone .................. : [phone] Age ................................ : 69 Film# .................. .:[id number] Sex ................................. : M Unsigned transcriptions are preliminary reports and do not represent a medical or legal document CT THORAX W/O CONTRAST [id number] COMPLETE:08/22/20 19:01 JOAQUÍN 6522 (REASON FOR CHEST: SOB, NEOPLASM UNCERTAIN BEHAVIOR CT SCAN OF THE CHEST WITHOUT CONTRAST: INDICATION: Shortness of breath, neoplasm. FINDINGS: The visualized portions of the thoracic inlet appear unremarkable. Atherosclerotic disease is identified. Nonspecific mediastinal lymph nodes are identified. The largest is in the right paratracheal location measuring approximately 7 mm. The ascending aorta is aneurysmal, measuring approximately 4.7 cm. The heart appears unremarkable with the exception of atherosclerotic disease. The visualized portions of the upper abdomen show a left renal cyst anteriorly at the mid-pole. The remaining portions of the upper abdomen appear unremarkable. The lung rodriguez show COPD and bibasilar scarring. No definite focal infiltrate or consolidation is identified. IMPRESSION: COPD. Bilateral pulmonary scarring. Atherosclerotic disease. Aneurysmal dilatation of the ascending aorta measuring 4.7 cm. Left renal cyst. While performing the above CT examination, radiation dose reduction was accomplished utilizing automated exposure control, adjusting of the mA and kV based on the patient's body size and/or the use of imperative reconstructive techniques. CT dose: 335.3 mGycm Examination dictated by MARGA Cooper. Examination was reviewed with Christy Baker MD, radiologist at the time of this dictation. Electronically Reviewed and Signed By Christy Baker MD , 08/27/20 11:55, KGG Page 1 of [address] [place] [address] PHONE: [phone] FAX: [phone] Name .................. : EVA Abdullahi Acct Number.................. : [id number] ROOM. ................. : MR Number ................... : [id number] Stay type ............. : O/P Discharge Date......... ... : 08/22/20 Admit Date ......... : 08/22/20 Admit Phys .................... : [facility] Date of ....... : 1950 Family Phys ................... : [facility] Phone .................. : [phone] Age ................................ : 69 Film# .................. .:[id number] Sex ................................. : M Unsigned transcriptions are preliminary reports and do not represent a medical or legal document CT THORAX W/O CONTRAST [id number] COMPLETE:08/22/20 19:01 JOAQUÍN 6522 (REASON FOR CHEST: SOB, NEOPLASM UNCERTAIN BEHAVIOR Transcribe Initials: EMMA , Transcribe Date: 08/23/20 23:49, Dictation Date: Copy for: [facility] via fax Copy for: 710 MED REC Page 2 of 2 Name Value Range Interpretation Code Description Data Ximena rce(s) Supporting Document(s) ID Date Data Source [id number] 07/23/2020 10:02:00 AM EST [facility] [address] [place] [address] [phone] NAME SEX PT STATUS ACCOUNT NUMBER Minoo Velasquez III REG REF [id number] ORDERING PHYSICIAN LOCATION MEDICAL RECORD NO. Karla Mohan US [id number] ATTENDING PHYSICIAN DATE OF DATE OF EXAM/TIME Shanique Ruano 1950 07/[birth year]/20947 TYPE / EXAM US ARTERIAL LEGS BILAT REASON FOR EXAM ATHSCL LAC [place] ARTERIES OF EXTRM W/INTRMT SHAKA BILATERAL LEGS ULTRASOUND BILATERAL LOWER EXTREMITY DOPPLER ARTERIAL COMPARISON: None available TECHNIQUE: Ultrasound images of the bilateral lower extremity arteries using grayscale, color flow,and spectral Doppler interrogation. FINDINGS: Severe plaque is noted bilaterally. Stent is noted at the right mid SFA. Triphasic and biphasic waveforms are seen throughout the right leg. Stenosis is noted at the left popliteal artery. Triphasic waveforms are seen in the left INFERTILITY MEDICAL ASSISTANT to this SFA. Monophasic waveforms are seen distal to the popliteal artery. Severe pulses parvus and tardus waveform is seen in the left anterior tibial artery and in the PT trunk. IMPRESSION: Significantly diminished flow seen on the left distal to the popliteal artery, as described. Reported By Garrett Flood MD on 07/23/20 1002 Signed By Garrett Flood MD on 07/23/20 1006 Date Time CC: Garrett Flood MD; Shanique Ruano Techn: NOREM Trans Dt/Tm: Trans by: DT Prt Dt/Tm: : Total DLP = 0.00 mGy-cm : Total Radiation Dose = 0.0000 mSv Lifetime Dose: 0 mSv Name Value Range Interpretation Code Description Data Ximena rce(s) Supporting Document(s) ID Date Data Source [id number] 06/19/2020 09:29:00 AM EST [facility] ([facility] Name Value Range Interpretation Code Description Data Ximena rce(s) Supporting Document(s) Calcidiol [Mass/volume] in Serum or Plasma Laboratory test result MEDENT ([facility] ID Date Data Source [id number] 06/19/2020 09:27:00 AM EST MEDENT ([facility] Name Value Range Interpretation Code Description Data Ximena rce(s) Supporting Document(s) Prostate specific Ag [Mass/volume] in Serum or Plasma Laboratory test result MEDENT ([facility] ) ID Date Data Source [id number] 06/19/2020 09:27:00 AM EST MEDENT ([facility] Name Value Range Interpretation Code Description Data Ximena rce(s) Supporting Document(s) Thyrotropin [Units/volume] in Serum or Plasma Laboratory test result MEDENT ([facility] ID Date Data Source [id number] 06/19/2020 09:26:00 AM EST MEDENT ([facility] Name Value Range Interpretation Code Description Data Ximena rce(s) Supporting Document(s) Hemoglobin A1c/Hemoglobin.total in Blood 6.6 % 4.50-6.20 Above high normal MEDENT ([facility] ID Date Data Source CD4/CD8 RATIO PROFILE [id number] 06/11/2020 12:00:00 AM EST eC W1 ([facility]) Name Value Range Interpretation Code Description Data Ximena rce(s) Supporting Document(s) Deprecated CD4 in Blood [id number] Abs CD4 Help er eCW1 ([facility]) 240 109-897 Abs CD8 Suppres eCW1 ([facility]) 36.2 30.8-58.5 %CD4 Pos Lymphs eCW1 ([facility]) 0.91 0.92-3.72 CD4/CD8 Ratio eCW1 ([facility]) 40.0 12.0-35.5 % CD8 Pos Lymph eCW1 ([facility]) 17.2 3.4-10.8 WBC eCW1 ([facility]) 4.20 4.14-5.80 RBC eCW1 ([facility]) 40.3 37.5-51.0 HCT eCW1 ([facility]) 13.8 13.0-17.7 HGB eCW1 ([facility]) 96 79-97 MCV eCW1 ([facility]) 32.9 26.6-33.0 MCH eCW1 ([facility]) 94 Not Estab. Neutrophils eCW1 ([facility]) 13.1 11.6-15.4 RDW eCW1 ([facility]) 256 150-450 Platelets eCW1 ([facility]) 34.2 31.5-35.7 MCHC eCW1 ([facility]) 0 Not Estab. Basophils eCW1 ([facility]) 2 Not Estab. Monocytes eCW1 ([facility]) 3 Not Estab. Lymphocytes eCW1 ([facility]) 0 Not Estab. Eosinophils eCW1 ([facility]) 0.6 0.7-3.1 ABS Lymphs eCW1 ([facility]) 0.0 0.0-0.4 ABS Eosinophils eCW1 ([facility]) 0.4 0.1-0.9 ABS Monocytes eCW1 ([facility]) 16.0 1.4-7.0 ABS Neutophils eCW1 ([facility]) 0.1 0.0-0.2 ABS Basophils eCW1 ([facility]) ID Date Data Source ERYTHROCYTE SEDIMENTATION RATE 06/11/2020 12:00:00 AM EST eC W1 ([facility]) Name Value Range Interpretation Code Description Data Ximena rce(s) Supporting Document(s) 30 0-20 ERYTHROCYTE SEDIMENTATION RATE eCW1 ([facility]) ID Date Data Source C REACTIVE PROTEIN QUANTITATIV (At [facility]) 06/11/2020 12:00 :00 AM EST eCW1 ([facility]) Name Value Range Interpretation Code Description Data Ximena rce(s) Supporting Document(s) 0.51 0.00-0.30 C REACTIVE PROTEIN QUANTI TATIV eCW1 ([facility]) ID Date Data Source Comprehensive Metabolic Profile (CMP) 06/11/2020 12:00:00 AM EST eCW1 ([facility]) Name Value Range Interpretation Code Description Data Ximena rce(s) Supporting Document(s) 119 70-100 GLUCOSE, FASTING eCW1 ([facility]) 14 7-18 BLOOD UREA NITROGEN eCW1 ([facility]) 137 136-145 SODIUM LEVEL eCW1 ([facility]) > 60.0 >49 GLOMERULAR FILTRATION RATE eCW 1 ([facility]) 0.97 0.70-1.30 CREATININE FOR GFR eCW1 ([facility]) 27 21-32 CARBON DIOXIDE LEVEL eCW1 ([facility]) 102 98-107 CHLORIDE LEVEL eCW1 ([facility]) 4.6 3.5-5.1 POTASSIUM SERUM eCW1 ([facility]) 9.8 8.8-10.2 CALCIUM LEVEL eCW1 ([facility]) 36 12-78 ALT/SGPT eCW1 ([facility]) 17 7-37 AST/SGOT eCW1 ([facility]) 0.3 0.2-1.0 BILIRUBIN,TOTAL eCW1 ([facility]) 81 45-117 ALKALINE PHOSPHATASE eCW1 ([facility]) 1.2 ALBUMIN/GLOBULIN RATIO eCW1 ([facility]) 3.9 3.2-5.2 ALBUMIN eCW1 ([facility]) 7.1 6.4-8.2 TOTAL PROTEIN eCW1 ([facility]) ID Date Data Source [id number] 03/28/2020 09:21:00 AM EDT MEDENT ([facility] Name Value Range Interpretation Code Description Data Ximena rce(s) Supporting Document(s) IgG [Mass/volume] in Serum or Plasma 988 mg/dL [id number] MEDENT ([facility] ID Date Data Source [id number] 03/28/2020 09:21:00 AM EDT MEDENT ([facility] Name Value Range Interpretation Code Description Data Ximena rce(s) Supporting Document(s) Comprehensive Metabo Laboratory test result MEDENT ([facility] COMPREHENSIVE METABOLIC PANEL Potassium 4.3 meq/L 3.6-5.0 MED[facility] ([facility] Chloride 98 meq/L 98-107 MED[facility] ([facility] Sodium 138 meq/L 134-153 MED[facility] ([facility] Co2 30 meq/L 22-30 MED[facility] ([facility] Glucose 72 mg/dL 65-110 MED[facility] ([facility] BUN 17 mg/dL 7-21 MED[facility] ([facility] Total Protein 7.4 g/dL 6.3-8.2 [facility] ([facility] BUN/Creat 17 8-27 MED[facility] ([facility] Creatinine 1.0 mg/dL 0.7-1.5 [facility] ([facility] A/G Ratio 1.6 0.8-2.0 [facility] ([facility] Albumin 4.6 g/dL 3.9-5.0 MED[facility] ([facility] Globulin 2.8 GM/DL 2.4-3.2 [facility] ([facility] Calcium 10.0 mg/dL 8.4-10.2 [facility] ([facility] Alkaline Phos 86 U/L 38-126 MED[facility] ([facility] Total Bili Laboratory test result 0.2-1.3 ME DENT ([facility] Sgot/Ast 26 U/L 5-40 [facility] ([facility] Anion Gap 10.0 mmol/L 8.0-16.0 [facility] ([facility] SGPT/Alt 29 U/L 7-56 MEDENT ([facility] Age 69 yrs MEDENT ([facility] Non-Aa GFR Laboratory test result ME DENT ([facility] Afr Amer GFR Laboratory test result MEDENT ([facility] Male GFR Interprentation 20-49 yrs >60 mL/min Normal 50-59 yrs >56 mL/min Normal 60-69 yrs >49 mL/min Normal 70-79yrs >42 mL/min Normal 80 and above >35 mL/min Normal Female GFR Interpretation 20-39 yrs >60 mL/min Normal 40-49 yrs >58 mL/min Normal 50-59 yrs >51 mL/min Normal 60-69 yrs >45 mL/min Normal 70-79 yrs >39 mL/min Normal 80 and above >32 mL/min Normal ID Date Data Source [id number] 03/28/2020 09:21:00 AM EDT MEDENT ([facility] Name Value Range Interpretation Code Description Data Ximena rce(s) Supporting Document(s) WBC 12.3 10^3/uL 4.2-11.0 Above high normal MEDEN T ([facility] CBC W/Automated Diff Laboratory test result MEDENT ([facility] COMPLETE BLOOD COUNT RBC 4.34 10^6/uL 4.50-6.30 Below low normal MEDENT ([facility] Hemoglobin 14.3 g/dL 14.0-16.0 [facility] MCV 96.3 fL 80.0-94.0 Above high normal MEDENT ([facility] Hematocrit 41.8 % 41.0-51.0 [facility] ([facility] MCH 32.9 pg 27.0-34.0 MEDENT ([facility] MCHC 34.2 g/dL 31.0-36.0 MEDENT ([facility] RDW 12.9 % 11.5-14.8 MEDENT ([facility] Neut 71.8 % 37.0-80.0 [facility] ([facility] MPV 8.8 fL 7.4-10.4 MED[facility] ([facility] Platelets 319 10^3/uL 150-450 MED[facility] ([facility] Eos 2.0 % 0.0-7.0 MED[facility] ([facility] Pacific 7.7 % 3.0-8.0 MED[facility] ([facility] Lymph 16.8 % 25.0-40.0 Below low normal MEDENT ( [facility] Baso 0.3 % 0.0-2.0 MED[facility] ([facility] %Ig 1.4 % 0.0-0.0 Above high normal MEDENT ([facility] %NRBC 0.0 % 0.0-0.0 MED[facility] ([facility] #Neut 8.83 10^3/uL 2.00-6.90 Above high normal MEDEN T ([facility] #Eos 0.24 10^3/uL 0.00-0.70 MED[facility] ([facility] #Lymph 2.06 10^3/uL 0.60-3.40 MED[facility] ([facility] #Pacific 0.95 10^3/uL 0.00-0.90 Above high normal MEDEN T ([facility] #Baso 0.04 10^3/uL 0.00-0.20 [facility] ([facility] #Ig 0.17 10^3/uL 0.00-0.10 Above high normal MEDEN T ([facility] #NRBC 0.00 10^3/uL 0.00-0.00 MED[facility] ([facility] Manual Diff Laboratory test result M EDBARBARA ([facility] RBC Morph Laboratory test result ME CARLOS ALBERTO ([facility] ID Date Data Source [id number] 03/30/2020 02:26:00 PM EDT [facility] Name Value Range Interpretation Code Description Data Ximena rce(s) Supporting Document(s) IgG [Mass/volume] in Serum or Plasma 988 mg/dL [id number] [facility] ID Date Data Source [id number] 03/28/2020 10:43:00 AM EDT [facility] Name Value Range Interpretation Code Description Data Ximena rce(s) Supporting Document(s) COMPREHENSIVE METABOLIC PANEL [facility] COMPREHENSIVE METABOLIC PANEL Sodium [Moles/volume] in Serum or Plasma 138 mEq/L 134 - 153 [facility] Potassium [Moles/volume] in Serum or Plasma 4.3 mEq/L 3.6 - 5.0 [facility] Chloride [Moles/volume] in Serum or Plasma 98 mEq/L 98 - 107 [facility] Carbon dioxide, total [Moles/volume] in Serum or Plasma 30 MEQ/L 22 - 30 [facility] Glucose [Mass/volume] in Serum or Plasma 72 MG/DL 65 - 110 [facility] BUN 17 MG/DL 7 - 21 [facility] Creatinine [Mass/volume] in Serum or Plasma 1.0 MG/DL 0.7 - 1.5 [facility] BUN/CREAT 17 8 - 27 [facility] Protein [Mass/volume] in Serum or Plasma 7.4 G/DL 6.3 - 8.2 [facility] Albumin [Mass/volume] in Serum or Plasma 4.6 G/DL 3.9 - 5.0 [facility] Globulin [Mass/volume] in Serum by calculation 2.8 GM/DL 2.4 - 3.2 [facility] A/G RATIO 1.6 0.8 - 2.0 [facility] Calcium [Mass/volume] in Serum or Plasma 10.0 MG/DL 8.4 - 10.2 [facility] Bilirubin.total [Mass/volume] in Serum or Plasma <0.7 MG/DL 0.2 - 1.3 [facility] Alkaline phosphatase [Enzymatic activity/volume] in Serum or Plasma 86 U/L 38 - 126 [facility] Aspartate aminotransferase [Enzymatic activity/volume] in Serum or Plasma 26 U/L 5 - 40 [facility] Alanine aminotransferase [Enzymatic activity/volume] in Seru m or Plasma 29 U/L 7 - 56 [facility] Anion gap 3 in Serum or Plasma 10.0 mmol/L 8.0 - 16.0 [facility] AGE 69 yrs [facility] NON-AA GFR >60 mL/min [facility] AFR AMER GFR >60 mL/min [facility] Male GFR In terprentation 20-49 yrs >60 mL/min Normal 50-59 yrs >56 mL/min Normal 60-69 yrs >49 mL/min Normal 70-79yrs >42 mL/min Normal 80 and above >35 mL/min Normal Female GFR Interpretation 20-39 yrs >60 mL/min Normal 40-49 yrs >58 mL/min Normal 50-59 yrs >51 mL/min Normal 60-69 yrs >45 mL/min Normal 70-79 yrs >39 mL/min Normal 80 and above >32 mL/min Normal ID Date Data Source [id number] 03/28/2020 09:44:00 AM EDT [facility] Name Value Range Interpretation Code Description Data Ximena rce(s) Supporting Document(s) CBC W/AUTOMATED DIFF [facility] COMPLETE BLOOD COUNT Leukocytes [#/volume] in Blood by Automated count 12.3 10^3/uL 4.2 - 11.0 H [facility] Erythrocytes [#/volume] in Blood by Automated count 4.34 10^6/uL 4. 50 - 6.30 L [facility] Hemoglobin [Mass/volume] in Blood 14.3 g/dL 14.0 - 16.0 [facility] Hematocrit [Volume Fraction] of Blood by Automated count 41.8 % 4 1.0 - 51.0 [facility] Erythrocyte mean corpuscular volume [Entitic volume] by Auto mated count 96.3 fL 80.0 - 94.0 H [facility] Erythrocyte mean corpuscular hemoglobin [Entitic mass] by Automated count 32.9 pg 27.0 - 34.0 [facility] Erythrocyte mean corpuscular hemoglobin concentration [Mass/volume] by Automated count 34.2 g/dL 31.0 - 36.0 [facility] Erythrocyte distribution width [Ratio] by Automated count 12.9 % 11.5 - 14.8 [facility] Platelets [#/volume] in Blood by Automated count 319 10^3/uL 150 - 45 0 [facility] Platelet mean volume [Entitic volume] in Blood by Automated count 8.8 fL 7.4 - 10.4 [facility] Neutrophils/100 leukocytes in Blood by Automated count 71.8 % 37. 0 - 80.0 [facility] Lymphocytes/100 leukocytes in Blood by Manual count 16.8 % 25.0 - 40.0 L [facility] Monocytes/100 leukocytes in Blood by Automated count 7.7 % 3.0 - 8.0 [facility] Eosinophils/100 leukocytes in Blood by Automated count 2.0 % 0.0 - 7.0 [facility] Basophils/100 leukocytes in Blood by Automated count 0.3 % 0.0 - 2.0 [facility] %IG 1.4 % 0.0 - 0.0 H [facility] %NRBC 0.0 % 0.0 - 0.0 [facility] al Neutrophils [#/volume] in Blood by Automated count 8.83 10^3/uL 2.00 - 6.90 H [facility] Lymphocytes [#/volume] in Blood by Automated count 2.06 10^3/uL 0.60 - 3.40 [facility] Monocytes [#/volume] in Blood by Automated count 0.95 10^3/uL 0.00 - 0.90 H [facility] Eosinophils [#/volume] in Blood by Automated count 0.24 10^3/uL 0.00 - 0.70 [facility] Basophils [#/volume] in Blood by Automated count 0.04 10^3/uL 0.00 - 0.20 [facility] #IG 0.17 10^3/uL 0.00 - 0.10 H [facility] #NRBC 0.00 10^3/uL 0.00 - 0.00 [facility] MANUAL DIFF NOT INDICATED [facility] RBC MORPH NOT INDICATED [facility] ID Date Data Source [id number] 03/19/2020 09:52:00 AM EDT MEDENT ([facility] Name Value Range Interpretation Code Description Data Ximena rce(s) Supporting Document(s) Test Code Change Laboratory test result MEDENT ([facility] SRC:SPUTUM ID Date Data Source [id number] 03/19/2020 09:52:00 AM EDT MEDENT ([facility] Name Value Range Interpretation Code Description Data Ximena rce(s) Supporting Document(s) Microscopic observation [Identifier] in Sputum by Gram stain Laboratory test result MEDENT ([facility] SRC:SPUTUM Lower Respiratory Culture Laboratory test result MEDENT ([facility] SRC:SPUTUM Epithelial Cells Laboratory test result MEDENT ([facility] SRC:SPUTUM White Blood Cells Laboratory test result MEDENT ([facility] SRC:SPUTUM Result 2 Laboratory test result Abnormal (applies to non -numeric results) MEDENT ([facility] SRC:SPUTUM Result 1 Laboratory test result Abnormal (applies to non -numeric results) MEDENT ([facility] SRC:SPUTUM Result 1 Laboratory test result MEDENT ([facility] SRC:SPUTUM Gram Stain Evaluation Laboratory test result MEDENT ([facility] SRC:SPUTUM ID Date Data Source [id number] 03/19/2020 09:52:00 AM EDT MEDENT ([facility] Name Value Range Interpretation Code Description Data Ximena rce(s) Supporting Document(s) Bacteria identified in Unspecified specimen by Respira tory culture Laboratory test result MEDENT ([facility] ID Date Data Source [id number] 03/19/2020 09:35:00 AM EDT MEDENT ([facility] Name Value Range Interpretation Code Description Data Ximena rce(s) Supporting Document(s) Hemoglobin A1c/Hemoglobin.total in Blood 6.5 % 4.50-6.20 Above high normal MEDENT ([facility] Procedure Social History Code Duration Value Status Description Data Source(s ) Smoking 03/03/2021 12:00:00 AM EDT Patient is a former smoker completed Patient is a former smoker MEDENT ([facility] ) Smoking 02/28/2021 12:00:00 AM EDT Patient is a former smoker completed Patient is a former smoker MEDENT ([facility] ) Smoking 02/18/2021 12:00:00 AM EDT Former Smoker completed Former Smoker eCW1 ([facility]) Smoking 02/18/2021 12:00:00 AM EDT Former Smoker completed Former Smoker eCW1 ([facility]) Smoking 02/18/2021 12:00:00 AM EDT Former Smoker completed Former Smoker eCW1 ([facility]) Alcohol intake 01/29/2021 12:00:00 AM EDT Current non-d rama of alcohol (finding) completed Current non-drinker of alcohol (finding) [facility] Alcohol intake 12/26/2020 12:00:00 AM EDT Current non-d rama of alcohol (finding) completed Current non-drinker of alcohol (finding) [facility] Alcohol intake 12/23/2020 12:00:00 AM EDT Current non-d rama of alcohol (finding) completed Current non-drinker of alcohol (finding) [facility] Alcohol intake 12/10/2020 12:00:00 AM EDT Current non-d rama of alcohol (finding) completed Current non-drinker of alcohol (finding) [facility] Alcohol intake 11/27/2020 12:00:00 AM EDT Current non-d rama of alcohol (finding) completed Current non-drinker of alcohol (finding) [facility] Alcohol intake 11/25/2020 12:00:00 AM EDT Current non-d rama of alcohol (finding) completed Current non-drinker of alcohol (finding) [facility] Smoking 06/11/2020 12:00:00 AM EST Former Smoker completed Former Smoker eCW1 ([facility]) Smoking 06/11/2020 12:00:00 AM EST Former Smoker completed Former Smoker eCW1 ([facility]) Vital Signs ID Date Data Source UNK Name Value Range Interpretation Code Description Data Source(s) Systolic blood pressure 141 mm[Hg] 141 mm[Hg] [facility] Diastolic blood pressure 85 mm[Hg] 85 mm[Hg] [facility] ([facility]) Heart rate 96 /min 96 /min [facility] ([facility]) Body temperature 98.6 [degF] 98.6 [degF] [facility] ([facility]) Body height 68 [in_i] 68 [in_i] [facility] ([facility]) 5'8" Body weight 148.25 [lb_av] 148.25 [lb_av] [facility] ([facility]) Body mass index (BMI) [Ratio] 22.5 kg/m2 22.5 k g/m2 [facility] ([facility]) [place] body weight 154 [lb_av] 154 [lb_av] [facility] ([facility]) Body weight 67.246 kg 67.246 kg [facility] ([facility]) Body surface area Derived from formula 1.80 m2 1.80 m2 [facility] ([facility]) Body temperature 97.6 [degF] 97.6 [degF] [facility] Respiratory rate 20 /min 20 /min [facility] ( [facility] Body weight 147.00 [lb_av] 147.00 [lb_av] MED[facility] T ([facility] [place] body weight 154 [lb_av] 154 [lb_av] MED[facility] T ([facility] Oxygen saturation in Arterial blood by Pulse oximetry 97 % 97 % [facility] ([facility] (On O2 @ 2 LPM [place]) Systolic blood pressure 124 mm[Hg] 124 mm[Hg] M EDENT ([facility] Diastolic blood pressure 84 mm[Hg] 84 mm[Hg] [facility] Heart rate 105 /min 105 /min [facility] ([facility] Body height 68 [in_i] 68 [in_i] [facility] 5'8" Body mass index (BMI) [Ratio] 22.3 kg/m2 22.3 k g/m2 [facility] ([facility] Systolic blood pressure 118 mm[Hg] 118 mm[Hg] [facility]) Diastolic blood pressure 72 mm[Hg] 72 mm[Hg] [facility]) Heart rate 88 /min 88 /min [facility] ([facility]) Oxygen saturation in Arterial blood by Pulse oximetry 91 % 91 % [facility] ([facility]) [place] Body height 68 [in_i] 68 [in_i] [facility] ([facility]) 5'8" Body weight 147.00 [lb_av] 147.00 [lb_av] [facility] ([facility]) Body mass index (BMI) [Ratio] 22.3 kg/m2 22.3 k g/m2 [facility] ([facility]) [place] body weight 154 [lb_av] 154 [lb_av] [facility] Body weight 66.679 kg 66.679 kg [facility] ([facility]) Body surface area Derived from formula 1.79 m2 1.79 m2 [facility] ([facility]) Body weight 150.00 [lb_av] 150.00 [lb_av] [facility] ([facility] Heart rate 85 /min 85 /min [facility] ([facility] Systolic blood pressure 137 mm[Hg] 137 mm[Hg] M EDENT ([facility]) Diastolic blood pressure 72 mm[Hg] 72 mm[Hg] [facility] ([facility]) Systolic blood pressure 130 mm[Hg] 130 mm[Hg] [facility] Body mass index (BMI) [Ratio] 23.0 kg/m2 23.0 k g/m2 [facility] ([facility] Body temperature 97.6 [degF] 97.6 [degF] [facility] ([facility] Heart rate 85 /min 85 /min [facility] ([facility] Respiratory rate 16 /min 16 /min [facility] ( [facility] Body height 68 [in_i] 68 [in_i] [facility] ([facility] 5'8" Body weight 151.00 [lb_av] 151.00 [lb_av] MED[facility] T ([facility] [place] body weight 154 [lb_av] 154 [lb_av] [facility] ([facility] Diastolic blood pressure 80 mm[Hg] 80 mm[Hg] [facility] ([facility] Oxygen saturation in Arterial blood by Pulse oximetry 93 % 93 % [facility] ([facility] ([facility]) Body weight 143 [lb_av] 143 [lb_av] eCW1 ([facility]) Body weight 64.86 kg 64.86 kg eCW1 ([facility]) Body height 69 [in_i] 69 [in_i] eCW1 ([facility]) Body mass index (BMI) [Ratio] 21.12 kg/m2 21.12 kg/m2 eCW1 ([facility]) Heart rate 84 /min 84 /min eCW1 ([facility]) Respiratory rate 23 /min 23 /min eCW1 ([facility]) Body temperature 96.2 [degF] 96.2 [degF] eCW1 ( [facility]) Systolic blood pressure 146 mm[Hg] 146 mm[Hg] e CW1 ([facility]) Diastolic blood pressure 84 mm[Hg] 84 mm[Hg] eCW1 ([facility]) Systolic blood pressure 106 mm[Hg] 106 mm[Hg] [facility] Diastolic blood pressure 70 mm[Hg] 70 mm[Hg] [facility] Heart rate 80 /min 80 /min [facility] Body temperature 35.78 Yakov 35.78 Yakov [facility] Respiratory rate 20 /min 20 /min [facility] Body height 172.7 cm 172.7 cm [facility] Body weight 66.225 kg 66.225 kg [facility] Body mass index (BMI) [Ratio] 22.20 kg/m2 22.20 kg/m2 [facility] Oxygen saturation in Arterial blood by Pulse oximetry 92 % 92 % [facility] Systolic blood pressure 123 mm[Hg] 123 mm[Hg] [facility] Diastolic blood pressure 69 mm[Hg] 69 mm[Hg] [facility] Heart rate 90 /min 90 /min [facility] Body temperature 37.22 Yakov 37.22 Yakov [facility] Respiratory rate 18 /min 18 /min [facility] Oxygen saturation in Arterial blood by Pulse oximetry 93 % 93 % [facility] Body weight 64.592 kg 64.592 kg [facility] Body mass index (BMI) [Ratio] 21.65 kg/m2 21.65 kg/m2 [facility] Body height 172.7 cm 172.7 cm [facility] Systolic blood pressure 98 mm[Hg] 98 mm[Hg] [facility] Diastolic blood pressure 62 mm[Hg] 62 mm[Hg] [facility] Body weight 62.596 kg 62.596 kg [facility] Body mass index (BMI) [Ratio] 20.98 kg/m2 20.98 kg/m2 [facility] Oxygen saturation in Arterial blood by Pulse oximetry 92 % 92 % [facility] Heart rate 88 /min 88 /min [facility] Body height 172.7 cm 172.7 cm [facility] Systolic blood pressure 118 mm[Hg] 118 mm[Hg] [facility] Diastolic blood pressure 70 mm[Hg] 70 mm[Hg] [facility] Heart rate 104 /min 104 /min [facility] Body temperature 36.28 Yakov 36.28 Yakov [facility] Respiratory rate 20 /min 20 /min [facility] Body weight 60.328 kg 60.328 kg [facility] Body mass index (BMI) [Ratio] 20.22 kg/m2 20.22 kg/m2 [facility] Oxygen saturation in Arterial blood by Pulse oximetry 94 % 94 % [facility] 2l Systolic blood pressure 107 mm[Hg] 107 mm[Hg] [facility] Diastolic blood pressure 72 mm[Hg] 72 mm[Hg] [facility] Heart rate 89 /min 89 /min [facility] Body temperature 36.61 Yakov 36.61 Yakov [facility] Respiratory rate 18 /min 18 /min [facility] Oxygen saturation in Arterial blood by Pulse oximetry 98 % 98 % [facility] Systolic blood pressure 122 mm[Hg] 122 mm[Hg] [facility] Diastolic blood pressure 70 mm[Hg] 70 mm[Hg] [facility] Heart rate 116 /min 116 /min [facility] Body temperature 36 Yakov 36 Yakov [facility] Body weight 62.596 kg 62.596 kg [facility] Body mass index (BMI) [Ratio] 20.98 kg/m2 20.98 kg/m2 [facility] Oxygen saturation in Arterial blood by Pulse oximetry 94 % 94 % [facility] 2l Systolic blood pressure 120 mm[Hg] 120 mm[Hg] M EDENT ([facility], ) Body mass index (BMI) [Ratio] 21.1 kg/m2 21.1 k g/m2 [facility] ([facility], ) Body weight 139.00 [lb_av] 139.00 [lb_av] MEDEN T ([facility], ) [place] body weight 154 [lb_av] 154 [lb_av] MED[facility] T ([facility], ) Body weight 63.050 kg 63.050 kg [facility] ([facility], ) Body surface area Derived from formula 1.75 m2 1.75 m2 [facility] ([facility]) Body height 68 [in_i] 68 [in_i] [facility] 5'8" Diastolic blood pressure 70 mm[Hg] 70 mm[Hg] [facility] ([facility]) Heart rate 102 /min 102 /min [facility] ([facility]) Oxygen saturation in Arterial blood by Pulse oximetry 952 % 952 % [facility] ([facility]) Body temperature 97.4 [degF] 97.4 [degF] [facility] ([facility]) Oxygen saturation in Arterial blood by Pulse oximetry 952 % 952 % [facility] ([facility]) Body temperature 97.4 [degF] 97.4 [degF] [facility] ([facility]) Body height 68 [in_i] 68 [in_i] [facility] ([facility]) 5'8" Body weight 139.00 [lb_av] 139.00 [lb_av] MED[facility] T ([facility]) Body mass index (BMI) [Ratio] 21.1 kg/m2 21.1 k g/m2 [facility] ([facility]) [place] body weight 154 [lb_av] 154 [lb_av] [facility] T ([facility]) Body weight 63.050 kg 63.050 kg [facility] ([facility]) Body surface area Derived from formula 1.75 m2 1.75 m2 [facility] ([facility]) Body height 68 [in_i] 68 [in_i] [facility] ([facility]) 5'8" Body weight 145.00 [lb_av] 145.00 [lb_av] MED[facility] T ([facility]) Body mass index (BMI) [Ratio] 22.0 kg/m2 22.0 k g/m2 [facility] ([facility]) [place] body weight 154 [lb_av] 154 [lb_av] [facility] T ([facility]) Body weight 65.772 kg 65.772 kg [facility] ([facility]) Body surface area Derived from formula 1.78 m2 1.78 m2 [facility] ([facility]) Body weight 145.00 [lb_av] 145.00 [lb_av] MED[facility] T ([facility]) Body height 68 [in_i] 68 [in_i] [facility] ([facility]) 5'8" Body mass index (BMI) [Ratio] 22.0 kg/m2 22.0 k g/m2 [facility] ([facility]) [place] body weight 154 [lb_av] 154 [lb_av] MED[facility] T ([facility]) Body weight 65.772 kg 65.772 kg [facility] ([facility]) Body surface area Derived from formula 1.78 m2 1.78 [facility]2 [facility] Body weight 144.00 [lb_av] 144.00 [lb_av] MED[facility] T ([facility]) Body height 68 [in_i] 68 [in_i] [facility] ([facility] 5'8" Diastolic blood pressure 78 mm[Hg] 78 mm[Hg] [facility] ([facility]) Body mass index (BMI) [Ratio] 21.9 kg/m2 21.9 k g/m2 [facility] ([facility]) Systolic blood pressure 133 mm[Hg] 133 mm[Hg] M EDENT ([facility]) Heart rate 91 /min 91 /min [facility] ([facility] Respiratory rate 20 /min 20 /min [facility] ( [facility]) Systolic blood pressure 132 mm[Hg] 132 mm[Hg] M EDENT ([facility]) Diastolic blood pressure 86 mm[Hg] 86 mm[Hg] [facility] ([facility]) Body height 68 [in_i] 68 [in_i] [facility] ([facility]) 5'8" Body weight 145.50 [lb_av] 145.50 [lb_av] MEDEN T ([facility]) Body mass index (BMI) [Ratio] 22.1 kg/m2 22.1 k g/m2 [facility] ([facility]) [place] body weight 154 [lb_av] 154 [lb_av] MED[facility] T ([facility]) Body weight 65.999 kg 65.999 kg [facility] ([facility]) Body surface area Derived from formula 1.79 m2 1.79 m2 [facility] ([facility]) Systolic blood pressure 128 mm[Hg] 128 mm[Hg] M EDENT ([facility]) Diastolic blood pressure 78 mm[Hg] 78 mm[Hg] [facility] ([facility]) Body height 68 [in_i] 68 [in_i] [facility] ([facility]) 5'8" Body weight 147.12 [lb_av] 147.12 [lb_av] MED[facility] T ([facility]) Body mass index (BMI) [Ratio] 22.4 kg/m2 22.4 k g/m2 [facility] ([facility]) [place] body weight 154 [lb_av] 154 [lb_av] MED[facility] T ([facility]) Body weight 66.736 kg 66.736 kg [facility] ([facility]) Body surface area Derived from formula 1.79 m2 1.79 m2 [facility] ([facility]) Body mass index (BMI) [Ratio] 22.7 kg/m2 22.7 k g/m2 [facility] ([facility]) Body surface area Derived from formula 1.80 m2 1.80 m2 [facility] ([facility]) [place] body weight 154 [lb_av] 154 [lb_av] MED[facility] T ([facility]) Body weight 67.586 kg 67.586 kg [facility] ([facility]) Systolic blood pressure 110 mm[Hg] 110 mm[Hg] M EDENT ([facility]) Diastolic blood pressure 90 mm[Hg] 90 mm[Hg] [facility] ([facility]) Heart rate 88 /min 88 /min [facility] ([facility]) Oxygen saturation in Arterial blood by Pulse oximetry 962.5 % 962.5 % [facility], ) Body temperature 96.8 [degF] 96.8 [degF] [facility] ([facility]) Body height 68 [in_i] 68 [in_i] [facility] ([facility], ) 5'8" Body weight 149.00 [lb_av] 149.00 [lb_av] MED[facility] T ([facility], ) Systolic blood pressure 128 mm[Hg] 128 mm[Hg] M EDENT ([facility] Diastolic blood pressure 86 mm[Hg] 86 mm[Hg] [facility] ([facility] Body temperature 98.1 [degF] 98.1 [degF] [facility] ([facility] Heart rate 96 /min 96 /min [facility] ([facility] Respiratory rate 20 /min 20 /min [facility] ( [facility] Body height 68 [in_i] 68 [in_i] [facility] ([facility] 5'8" Body weight 154.00 [lb_av] 154.00 [lb_av] MED[facility] T ([facility] [place] body weight 154 [lb_av] 154 [lb_av] MED[facility] T ([facility] Body mass index (BMI) [Ratio] 23.4 kg/m2 23.4 k g/m2 [facility] ([facility] Oxygen saturation in Arterial blood by Pulse oximetry 98 % 98 % [facility] ([facility] Body weight 156 [lb_av] 156 [lb_av] eCW1 ([facility]) Body height 69 [in_i] 69 [in_i] eCW1 ([facility]) Body mass index (BMI) [Ratio] 23.03 kg/m2 23.03 kg/m2 eCW1 ([facility]) Heart rate 91 /min 91 /min eCW1 ([facility]) Respiratory rate 28 /min 28 /min eCW1 ([facility]) Body temperature 99.1 [degF] 99.1 [degF] eCW1 ( [facility]) Systolic blood pressure 142 mm[Hg] 142 mm[Hg] e CW1 ([facility]) Diastolic blood pressure 86 mm[Hg] 86 mm[Hg] eCW1 ([facility]) Body height 68 [in_i] 68 [in_i] [facility] ([facility] 5'8" Systolic blood pressure 130 mm[Hg] 130 mm[Hg] M EDENT ([facility] Diastolic blood pressure 80 mm[Hg] 80 mm[Hg] [facility] ([facility] Body temperature 97.3 [degF] 97.3 [degF] [facility] ([facility] Heart rate 80 /min 80 /min [facility] ([facility] Respiratory rate 20 /min 20 /min [facility] ( [facility] Body weight 159.00 [lb_av] 159.00 [lb_av] MEDEN T ([facility] [place] body weight 154 [lb_av] 154 [lb_av] MED[facility] T ([facility] Body mass index (BMI) [Ratio] 24.2 kg/m2 24.2 k g/m2 [facility] ([facility] Oxygen saturation in Arterial blood by Pulse oximetry 97 % 97 % [facility] ([facility] (On O2 @ 2 LPM [place]) Systolic blood pressure 110 mm[Hg] 110 mm[Hg] M EDENT ([facility], ) Heart rate 95 /min 95 /min [facility], ) Oxygen saturation in Arterial blood by Pulse oximetry 972.5 % 972.5 % [facility] ([facility], ) Body temperature 97.0 [degF] 97.0 [degF] [facility] ([facility], ) Body height 68 [in_i] 68 [in_i] [facility] ([facility], ) 5'8" Body weight 159.00 [lb_av] 159.00 [lb_av] [facility] Diastolic blood pressure 70 mm[Hg] 70 mm[Hg] [facility] [place] body weight 154 [lb_av] 154 [lb_av] [facility] Body mass index (BMI) [Ratio] 24.2 kg/m2 24.2 k g/m2 [facility] ([facility]) Body weight 72.122 kg 72.122 kg [facility] ([facility]) Body surface area Derived from formula 1.85 m2 1.85 m2 [facility] ([facility]) Patient Treatment Plan of Care Planned Activity Planned Date Details Description Data Source (s) Phenazopyridine hydrochloride 100 MG Oral Tablet [Pyri dium] 03/27/2021 12:00:00 AM EDT eCW1 ([facility]) Tamsulosin hydrochloride 0.4 MG Oral Capsule 02/21/2021 12:00:00 AM EDT eCW1 ([facility]) Tamsulosin hydrochloride 0.4 MG Oral Capsule 02/21/2021 12:00:00 AM EDT eCW1 ([facility]) Tamsulosin hydrochloride 0.4 MG Oral Capsule 02/21/2021 12:00:00 AM EDT eCW1 ([facility]) Tamsulosin hydrochloride 0.4 MG Oral Capsule 02/18/2021 12:00:00 AM EDT eCW1 ([facility]) Tamsulosin hydrochloride 0.4 MG Oral Capsule 02/18/2021 12:00:00 AM EDT eCW1 ([facility]) Tamsulosin hydrochloride 0.4 MG Oral Capsule 02/18/2021 12:00:00 AM EDT eCW1 ([facility]) Levothyroxine Sodium 0.05 MG Oral Tablet 01/10/2021 12:00:00 AM EDT [facility] glimepiride 2 MG Oral Tablet 01/02/2021 12:00:00 AM EDT [facility] Bisacodyl 10 MG Rectal Suppository 12/28/2020 09:00:00 AM EDT [facility] Sulfamethoxazole 800 MG / Trimethoprim 160 MG Oral Tab let 12/27/2020 09:00:00 AM EDT [facility] POLYETHYLENE GLYCOL 3350 142 MG/ML Oral Solution 12/27/2020 07:00:0 0 AM EDT [facility] clopidogrel 75 MG Oral Tablet 12/26/2020 12:00:00 AM EDT [facility] normal saline flush 0.9 % injection 3 mL 12/25/2020 09:00:00 PM EDT [facility] ondansetron (ZOFRAN) injection 4 mg 12/25/2020 04:44:33 PM EDT [facility] acetaminophen (TYLENOL) 325 MG tablet 650 mg 12/25/2020 04:44:33 PM EDT [facility] 2 ML Metoclopramide 5 MG/ML Prefilled Syringe 12/25/2020 04:44:32 P M EDT [facility] Nitroglycerin 0.4 MG Sublingual Tablet 12/25/2020 02:38:07 PM EDT [facility] sodium chloride 0.9% (NS) infusion 12/25/2020 11:00:00 AM EDT [facility] clopidogrel 75 MG Oral Tablet 12/10/2020 12:00:00 AM EDT [facility] Furosemide 20 MG Oral Tablet 12/10/2020 12:00:00 AM EDT [facility] normal saline flush 0.9 % injection 3 mL 11/27/2020 02:00:00 PM EDT [facility] Magnesium Chloride 0.09346 MEQ/ML / Pota ssium Chloride 0.0497 MEQ/ML / Sodium Acetate 0.0163 MEQ/ML / Sodium Chloride 0.0899 MEQ/ML / Sodium gluconate 5.02 MG/ML Injectable Solution [Normosol-R] 11/27/2020 01:00:00 PM EDT [facility] ondansetron (ZOFRAN) injection 4 mg 11/27/2020 12:19:32 PM EDT [facility] Hydralazine Hydrochloride 20 MG/ML Injectable Solution 11/27/2020 12:19:32 PM EDT [facility] Albuterol 0.83 MG/ML Inhalant Solution 11/27/2020 12:19:32 PM EDT [facility] Nitroglycerin 0.4 MG Sublingual Tablet 11/25/2020 12:00:00 AM EDT [facility] clopidogrel 75 MG Oral Tablet 12/04/2019 12:00:00 AM EDT [facility] Nitroglycerin 0.4 MG Sublingual Tablet 11/22/2018 12:00:00 AM EDT [facility] gabapentin 100 MG Oral Capsule 10/27/2017 12:00:00 AM EDT [facility] 24 HR Diltiazem Hydrochloride 240 MG Extended Release Oral Capsule 09/28/2017 12:00:00 AM EDT [facility] Sulfamethoxazole 800 MG / Trimethoprim 160 MG Oral Tab let 08/27/2016 12:00:00 AM EDT [facility] Tiotropium [place] Monohydrate (SPIRIVA RESPIMAT IN) [facility] empagliflozin 25 MG Oral Tablet [facility] ibandronic acid 150 MG Oral Tablet [facility] 30 ACTUAT aclidinium bromide 0.4 MG/ACTUAT Dry Powder Inhaler [facility] formoterol fumarate 0.01 MG/ML Inhalant Solution [facility] carvedilol 6.25 MG Oral Tablet [facility] torsemide 20 MG Oral Tablet [facility] Ranitidine 300 MG Oral Tablet [facility] Clotrimazole 10 MG Oral Lozenge [facility] Immune Globulin, Human, (HIZENTRA) 10 GM/50ML SOLN [facility] glimepiride 4 MG Oral Tablet [facility] Calcium Citrate 950 MG Oral Tablet [facility] metaxalone 800 MG Oral Tablet [facility] 12 HR Guaifenesin 600 MG Extended Release Oral Tablet [facility] pitavastatin 2 MG Oral Tablet [facility]
[2021-05-06] MEDS ORDERED: dexameTHASONE 20MG/5ML VIAL (J1100 PER 1MG) IV ONE (09:00)
[2021-05-06] MEDS ORDERED: TORSEMIDE 20 MG TAB PO SCH (09:00)
--- NOTE | 2021-05-06 09:10 | REP ---
INDICATION: SOB. COMPARISON: 05/01/2021 as well as other prior exams. TECHNIQUE: Single portable AP view of the chest was performed. FINDINGS: There are chronic bibasilar fibrotic changes. There appears to be mild superimposed bibasilar atelectasis/infiltrate. The heart is not enlarged. There is mild calcific plaque of the thoracic aorta. The mediastinal silhouette is unchanged. An old left rib fractures noted. IMPRESSION: Mild bibasilar atelectasis/infiltrate superimposed on chronic fibrotic change. <Electronically signed by Choco Schneider > 05/06/21 [id number]
[2021-05-06 09:23] LABS: ABG BASE EXCESS 0.7 (-2.0-2.0); ABG HCO3 23.7 MEQ/L (22.0-26.0); ABG O2 SATURATION 94.8 % (95.0-99.0); ABG PARTIAL PRESSURE CO2 33.4 mmHg (35.0-45.0); ABG PARTIAL PRESSURE O2 68.6 mmHg (75.0-100.0); ABG TOTAL CO2 24.7 MEQ/L (23.0-31.0); ABG pH (ARTERIAL) 7.469 UNITS (7.350-7.450)
[2021-05-06 09:32] LABS: BASO % 0.2 % (0.0-1.0); HEMATOCRIT 41.5 % (42.0-52.0); HEMOGLOBIN 14.2 g/dl (13.5-17.5); LYMPH # 0.7 10^3/uL (1.5-5.0); LYMPH % 6.3 % (24.0-44.0); MEAN CORPUSCULAR HEMOGLOBIN 31.4 pg (27.0-33.0); MEAN CORPUSCULAR HGB CONC 34.2 g/dl (32.0-36.5); MEAN CORPUSCULAR VOLUME 91.8 fl (80.0-96.0); MONO # 0.4 10^3/uL (0.0-0.8); MONO % 3.8 % (2.0-8.0); NEUTROPHILS # 9.8 10^3/uL (1.5-8.5); NEUTROPHILS % 88.8 % (36.0-66.0); PLATELET COUNT, AUTOMATED 218 10^3/uL (150-450); RED BLOOD COUNT 4.52 10^6/uL (4.30-6.10); WHITE BLOOD COUNT 11.1 10^3/uL (4.0-10.0)
--- OUTSIDE RECORDS SUMMARY | 2021-05-06 09:49 | CCD ---
Author Author [facility] Organization [facility] Address Unknown Phone Unavailable Care Team Providers Care Marketing Recruiter Name Role Phone KETTY ESCALANTE MD Unavailable Unavailable KETTY ESCALANTE MD Unavailable Unavailable KETTY ESCALANTE MD Unavailable Unavailable KETTY ESCALNATE MD Unavailable Unavailable KETTY ESCALANTE MD Unavailable [...] L Karla RPA Unavailable Unavailable Mohan, L Kalra RPA Unavailable Unavailable Mohan, L Karla RPA [...] CHROSTOWSKIKETTY MD Unavailable Unavailable ZABOROWSKI, J PO ACROBATIC RIGGER Unavailable Unavailable ZABOROWSKI, J PO ACROBATIC RIGGER Unavailable Unavailable ZABOROWSKI, J PO ACROBATIC RIGGER Unavailable Unavailable ZABOROWSKI, J PO ACROBATIC RIGGER Unavailable Unavailable ZABOROWSKI, J PO ACROBATIC RIGGER Unavailable Unavailable ZABOROWSKI, J PO ACROBATIC RIGGER Unavailable Unavailable ZABOROWSKI, J PO ACROBATIC RIGGER Unavailable Unavailable ZABOROWSKI, J PO ACROBATIC RIGGER Unavailable Unavailable ZABOROWSKI, J PO ACROBATIC RIGGER Unavailable Unavailable ZABOROWSKI, J PO ACROBATIC RIGGER Unavailable Unavailable ZABOROWSKI, J PO ACROBATIC RIGGER Unavailable Unavailable ZABOROWSKI, J PO ACROBATIC RIGGER Unavailable Unavailable ZABOROWSKI, J PO ACROBATIC RIGGER Unavailable Unavailable ZABOROWSKI, J PO ACROBATIC RIGGER Unavailable Unavailable ZABOROWSKI, J PO ACROBATIC RIGGER Unavailable Unavailable ZABOROWSKI, J PO ACROBATIC RIGGER Unavailable Unavailable ZABOROWSKI, J PO ACROBATIC RIGGER Unavailable Unavailable ZABOROWSKI, J PO ACROBATIC RIGGER Unavailable Unavailable ZABOROWSKI, J PO ACROBATIC RIGGER Unavailable Unavailable ZABOROWSKI, J PO ACROBATIC RIGGER Unavailable Unavailable ZABOROWSKI, J PO ACROBATIC RIGGER Unavailable Unavailable ZABOROWSKI, J PO ACROBATIC RIGGER Unavailable Unavailable ZABOROWSKI, J PO ACROBATIC RIGGER Unavailable Unavailable ZABOROWSKI, J PO ACROBATIC RIGGER Unavailable Unavailable ZABOROWSKI, J PO ACROBATIC RIGGER Unavailable Unavailable ZABOROWSKI, J PO ACROBATIC RIGGER Unavailable Unavailable ZABOROWSKI, J PO ACROBATIC RIGGER Unavailable Unavailable ZABOROWSKI, J PO ACROBATIC RIGGER Unavailable Unavailable ZABOROWSKI, J PO ACROBATIC RIGGER Unavailable Unavailable ZABOROWSKI, J PO ACROBATIC RIGGER Unavailable Unavailable ZABOROWSKI, J PO ACROBATIC RIGGER Unavailable Unavailable ZABOROWSKI, J PO ACROBATIC RIGGER Unavailable Unavailable ZABOROWSKI, J PO ACROBATIC RIGGER Unavailable Unavailable ZABOROWSKI, J PO ACROBATIC RIGGER Unavailable Unavailable ZABOROWSKI, J PO ACROBATIC RIGGER Unavailable Unavailable ZABOROWSKI, J PO ACROBATIC RIGGER Unavailable Unavailable ZABOROWSKI, J PO ACROBATIC RIGGER Unavailable Unavailable ZABOROWSKI, J PO ACROBATIC RIGGER Unavailable Unavailable ZABOROWSKI, J PO ACROBATIC RIGGER Unavailable Unavailable ZABOROWSKI, J PO ACROBATIC RIGGER Unavailable Unavailable ZABOROWSKI, J PO ACROBATIC RIGGER Unavailable Unavailable ZABOROWSKI, J PO ACROBATIC RIGGER Unavailable Unavailable ZABOROWSKI, J PO ACROBATIC RIGGER Unavailable Unavailable ZABOROWSKI, J PO ACROBATIC RIGGER Unavailable Unavailable ZABOROWSKI, J PO ACROBATIC RIGGER Unavailable Unavailable ZABOROWSKI, J OP ACROBATIC RIGGER Unavailable Unavailable ZABOROWSKI, J PO ACROBATIC RIGGER Unavailable Unavailable ZABOROWSKI, J PO ACROBATIC RIGGER Unavailable Unavailable ZABOROWSKI, J PO ACROBATIC RIGGER Unavailable Unavailable SEARS, A DINESH DO Unavailable [...] L Karla RPA Unavailable Unavailable Mohan, L Krala RPA Unavailable Unavailable Mohan, L Karla RPA [...] is protected by Article [address]-F of the [facility] Public Health law. If you continue you may have access to information: Regarding HIV / AIDS; Provided by facilities licensed or operated by the [facility] Office of Mental Health; or Provided by the [facility] Office for People With Developmental Disabilities. If such information is present, then the following [facility] mandated warning applies: This information has been [...] law may result in a fine or shelter sentence or both. A general authorization for the release of medical or other information is NOT sufficient authorization for further disc losure. Allergies and Adverse Reactions Type Description Substance Reaction Status Data Source(s ) Drug allergy QUININE QUININE [facility] Propensity to adverse reactions NARESH NARESH tachycardia [facility] Propensity to adverse reactions PENICILLINS (CLASS) PENICILLINS (CLASS) ANAPHYLAXIS [facility] Propensity to adverse reactions PRAVASTATIN Pravastatin Ac tive [facility] Propensity to adverse reactions ASPIRIN Aluminum aspirin Active [facility] Family History Family Member Name Family Member Gender Family Member Status Date o f Status Description Data Source(s) Unknown Female Problem [facility] ([facility] Encounters Encounter Providers Location Date Indications Data Source(s ) Outpatient Attender: SAHIL Plasencia/Lan/Armand/Re indl 04/10/2021 01:00:00 PM EDT [facility] ([facility] Outpatient Attender: Shanique GRESHAM [place] [facility] 08/2020 03:30:00 PM EDT [facility] ([facility] [place] [address] [facility] [facility] [address] 03/27/2021 12:00:00 AM EDT eCW1 ([facility]) Outpatient Attender: CASTILLO Plasencia/Lan/Armand/ Reindl 03/03/2021 02:45:00 PM EDT [facility] ([facility]) Outpatient Attender: KETTY ESCALANTE MD Main Office 02/28/2021 09:15:00 AM EDT [facility] ([facility]) Outpatient Attender: Shanique GRESHAM [place] [facility] 10:20:00 AM EDT [facility] ([facility] Outpatient Attender: KETTY ESCALANTE MDConsultant: Santo GRESHAM 02/21/2021 11:22:00 AM EDT - 02/21/2021 12:22:00 PM EDT [facility] [place] [address] [facility] [address] 02/20/2021 12:00:00 AM EDT eCW1 ([facility]) Outpatient [address] [facility] [address] 02/18/2021 12:00:00 AM EDT eCW1 ([facility]) Outpatient Referrer: PO MACHUCA NP BF-BF 02:03:11 PM EDT - 01/29/2021 03:41:49 PM [facility] Attender: PO MACHUCA NP BF-BF 12:00:00 AM EDT - 01/29/2021 03:51:17 PM EDT [facility] Out[facility] Attender: Shanique GRESHAM [facility] 08/2020 11:15:00 AM EDT [facility] ([facility] Inpatient Admitter: SHANIQUE RAMÍREZ MDReferrer: ARTURO OCASIO MD [id number] 12/25/2020 11:37:19 AM EDT [facility] Inpatient Attender: SHANIQUE RAMÍREZ MDAdmitter: SHANIQUE PEREZ CHI, MD [id number] 12/25/2020 10:06:00 AM EDT - 12/26/2020 05:14:00 PM EDT [facility] Patient discharged. Outpatient Attender: SHANIQUE RAMÍREZ MDReferrer: SHANIQUE PEREZ CHI, MD [id number] 12/23/2020 09:06:37 AM EDT - 12/23/2020 11:35:43 AM EDT [facility] Outpatient Attender: Ton Mtz MD [id number] 12/10 10:04:42 AM EDT - 12/10/2020 11:59:00 PM EDT [facility] Patient discharged. Outpatient Attender: Renae [facility] 12:00:00 AM EDT - 12/10/2020 02:08:44 PM EDT [facility] [place] Attender: [place] [facility] 09:45:00 AM EDT [facility] ([facility] Outpatient Referrer: SHANIQUE RAMÍREZ MD 12/03/2020 03:18:02 PM EDT [facility] Outpatient Attender: CALLIE ENAMORADO MDAd mitter: CALLIE ENAMORADO MDReferrer: CALLIE ENAMORADO MD [id number] 11/27/2020 06:29:00 AM EDT - 11/27/2020 02:51:00 PM EDT [facility] Patient discharged. Outpatient Attender: Renae MARCOS-BF.[facility] 12:00:00 AM EDT - 11/25/2020 03:56:53 PM EDT [facility] Outpatient Attender: Shanique [place] [facility] 08:15:00 AM EDT [facility] ([facility] Outpatient Attender: Shanique [place] [facility] 02:20:00 PM EDT [facility] ([facility] Outpatient Attender: [place]ique [place] [facility] 11:00:00 AM EDT [facility] ([facility] Outpatient Attender: Shanique Ruano PAConsultant: Shanique GRESHAM 10/22/2020 10:59:00 AM EDT - 10/22/2020 11:59:00 AM EDT [facility] Outpatient Attender: DINESH Trivedi/Lan/Armand/Bety 10/08/2020 02:30:00 PM EDT [facility] ([facility]) Outpatient Attender: Ajay Plasencia/Otway/Armand/Rein dl 09/23/2020 01:00:00 PM EDT [facility] ([facility]) Outpatient Attender: ASHANTI Plasencia/Otway/Armand/Reind l 08/30/2020 03:30:00 PM EDT [facility] ([facility]) Outpatient Attender: KETTY ESCALANTE MD Main Office 08/28/2020 11:00:00 AM EDT [facility] ([facility] Outpatient Attender: Shanique Ruano PAConsultant: Shanique GRESHAM 08/22/2020 08:46:00 AM EDT - 08/22/2020 09:46:00 AM EDT [facility] Patient discharged. Outpatient Attender: Karla Plasencia/Otway/Armand/R eindl 07/24/2020 10:15:00 AM EST [facility] ([facility]) Outpatient Attender: Karla Mohan RPA 07/23/2020 0 8:32:00 AM EST BILATERAL ARTERIAL LEGS, DISCOLORATION OF TOES [facility] BILATERAL ARTERIAL LEGS, DISCOLORATION O F TOES Outpatient Attender: Karla Plasencia/[place]/Armand/R eindl 07/17/2020 12:30:00 PM EST [facility] ([facility] Outpatient Attender: DINESH Trivedi/Otway/Armand/Reindl 07/16/2020 08:00:00 AM EST [facility] ([facility] Outpatient Attender: Shanique GRESHAM [place] [facility] 07:45:00 AM EST [facility] ([facility] [place] [address] [facility] [facility] [address] 06/11/2020 12:00:00 AM EST eCW1 ([facility]) Unknown [address] [facility] [facility] [address] 06/11/2020 12:00:00 AM EST eCW1 ([facility]) Outpatient Attender: Shanique GRESHAM [place] [facility] 04/2020 10:00:00 AM EST [facility] ([facility] Outpatient Attender: DINESH Trivedi/Lan/Armand/Reindl 04/03/2020 11:00:00 AM EDT [facility] ([facility] Outpatient Attender: Henri Overholt PAConsultant: Shanique GRESHAM 03/28/2020 09:14:00 AM EDT - 03/28/2020 10:14:00 AM EDT [facility] Outpatient Attender: Shanique GRESHAM [place] [facility] 09:00:00 AM EDT [facility] ([facility] Immunizations Vaccine Date Status Description Data Source(s) COVID-19 VACCINE Moderna 04/26/2021 12:00:00 AM EST completed [facility] Vaccine Series Complete: YESThis Data wa s Submitted to [facility] Via [employer]. New in 2012. IIV4 04/09/2021 03:34:00 PM EDT completed [facility] ([facility] 207 09/04/2020 12:00:00 AM EDT completed <td I D="[id number]">Covid-19 (Moderna)</td><td>09/04/2020, 08/04/2020</td><td></td> [facility] COVID-19 VACCINE Moderna 09/04/2020 12:00:00 AM EDT completed [facility] Vaccine Series Complete: YESThis Data wa s Submitted to [facility] Via [employer]. COVID-19 VACCINE Moderna 09/04/2020 12:00:00 AM EDT completed [facility] Vaccine Series Complete: YESThis Data wa s Submitted to [facility] Via [employer]. COVID-19 VACCINE, MRNA-1273, LNP-S (MODERNA)/PF 09/04/2020 1 2:00:00 AM EDT completed [facility] 207 08/04/2020 12:00:00 AM EST completed <td I D="[id number]">Covid-19 (Moderna)</td><td>09/04/2020, 08/04/2020</td><td></td> [facility] COVID-19 VACCINE Moderna 08/04/2020 12:00:00 AM EST completed [facility] Vaccine Series Complete: YESThis Data wa s Submitted to [facility] Via [employer]. COVID-19 VACCINE Moderna 08/04/2020 12:00:00 AM EST completed [facility] Vaccine Series Complete: NOThis Data was Submitted to [facility] Via [employer]. COVID-19 VACCINE, MRNA-1273, LNP-S (MODERNA)/PF 08/04/2020 1 2:00:00 AM EST completed [facility] New in 2012. IIV4 03/19/2020 09:09:00 AM EDT completed [facility] ([facility] Medications Medication Brand Name Start Date Product Form Dose Route Admi nistrative Instructions Pharmacy Instructions Status Indications Reaction Description Data Source(s) Metronidazole 500 MG Oral Tablet [Flagyl] Flagyl 04/09/2021 12:00 :00 AM EDT ORAL active [facility] ([facility] Phenazopyridine hydrochloride 100 MG Oral Tablet [Pyri dium] Pyridium 100 MG Pyridium 100 MG 03/27/2021 12:00:00 AM EDT active Pyridium 100 MG eCW1 ([facility]) 240 mcg/0.7 mL 03/16/2021 12:00:00 AM EDT syringe 0 INJECT DIRECTED PER STANDING ORDER INJECT DIRECTED PER STANDING ORDER SOLD: 03/16/2021 [facility] Tamsulosin hydrochloride 0.4 MG Oral Capsule Tamsulosi n HCl 0.4 MG Tamsulosin HCl 0.4 MG 02/21/2021 12:00:00 AM EDT 1.0 {capsule} active Tamsulosin HCl 0.4 MG eCW1 ([facility]) Tamsulosin hydrochloride 0.4 MG Oral Capsule Tamsulosi n HCl 0.4 MG Tamsulosin HCl 0.4 MG 02/21/2021 12:00:00 AM EDT 1.0 {capsule} active Tamsulosin HCl 0.4 MG eCW1 ([facility]) Tamsulosin hydrochloride 0.4 MG Oral Capsule Tamsulosi n HCl 0.4 MG Tamsulosin HCl 0.4 MG 02/21/2021 12:00:00 AM EDT 1.0 {capsule} active Tamsulosin HCl 0.4 MG eCW1 ([facility]) Tamsulosin hydrochloride 0.4 MG Oral Capsule Tamsulosi n HCl 0.4 MG Tamsulosin HCl 0.4 MG 02/18/2021 12:00:00 AM EDT 1.0 {capsule} active Tamsulosin HCl 0.4 MG eCW1 ([facility]) Tamsulosin hydrochloride 0.4 MG Oral Capsule Tamsulosi n HCl 0.4 MG Tamsulosin HCl 0.4 MG 02/18/2021 12:00:00 AM EDT 1.0 {capsule} active Tamsulosin HCl 0.4 MG eCW1 ([facility]) Tamsulosin hydrochloride 0.4 MG Oral Capsule Tamsulosi n HCl 0.4 MG Tamsulosin HCl 0.4 MG 02/18/2021 12:00:00 AM EDT 1.0 {capsule} active Tamsulosin HCl 0.4 MG eCW1 ([facility]) glimepiride 4 MG Oral Tablet Glimepiride 02/06/2021 12:00:00 AM EDT ORAL active [facility] ([facility] Hizentra Hizentra 02/05/2021 12:00:00 AM EDT SUBCUTANEOUS active [facility] ([facility] Nystatin 141085 UNT/ML Oral Suspension Nystatin 02/05/2021 12:00:00 AM [...] active Take 50 mcg by mouth daily [facility] glimepiride 2 MG Oral Tablet Glimepiride 01/02/2021 12:00:00 AM EDT ORAL completed [facility] ([facility] glimepiride 2 MG Oral Tablet glimepiride (AMARYL) 2 MG tablet glimepiride (AMARYL) 2 MG tablet 01/02/2021 12:00:00 AM EDT active TAKE ONE TABLET BY MOUTH EVERY DAY 30 MINUTES BEFORE HIS LARGEST MEAL [facility] glimepiride 2 MG Oral Tablet GLIMEPIRIDE 01/02/2021 12:00:00 AM EDT ta blet 30 TAKE ONE TABLET BY MOUTH EVERY DAY 30 MINUTES BEFORE HIS LARGEST MEAL TAKE ONE TABLET BY MOUTH EVERY DAY 30 MINUTES BEFORE HIS LARGEST MEAL SOLD: 01/02/2021 [facility] sitagliptin 100 MG Oral Tablet [Januvia] Januvia 01/01/2021 12:00: 00 AM EDT ORAL completed [facility] ([facility] Bisacodyl 10 MG Rectal Suppository bisacodyl (DULCOLAX ) suppository 10 mg bisacodyl (DULCOLAX) suppository 10 mg 12/28/2020 09:00:00 AM EDT 10 mg Rectal active 10 mg, Rectal, Daily PRN, constipation, Starting on 12/28/20 at 0900, Post-op
If lactulose not effective, give bisacodyl suppository x 1 per rectum prn starting POD #3.
[facility] Medication administered onsite Sulfamethoxazole 800 MG / [...] Infection, First dose on Wed12/27/20 at 0900 [facility] Urinary Tract Infection Medication administered onsite POLYETHYLENE GLYCOL 3350 142 MG/ML Oral Solution polyethylene glycol (GLYCOLAX) packet 17 g polyethylene glycol (GLYCOLAX) packet 17 g 12/27/2020 07:00:00 AM EDT 17 g Oral active 17 g, Or al, Daily PRN, For constipation, Starting on Wed12/27/20 at 0700, PACU & Post-op
hold for loose stools
[facility] Medication administered onsite latanoprost 0.05 MG/ML Ophthalmic Soluti on latanoprost (XALATAN) 0.005 % ophthalmic solution 1 drop latanoprost (XALATAN) 0.005 % ophthalmic solution 1 drop 12/26/2020 09:00:00 AM EDT 1 [drp] active 1 drop, Both Eyes, Daily, First dose on Lottie 12/26/20 at 0900 [facility] Medication administered onsite Prednisone 20 MG Oral Tablet predniSONE (DELTASONE) ta blet 20 mg predniSONE (DELTASONE) tablet 20 mg 12/26/2020 09:00:00 AM EDT 20 mg Oral active 20 mg, Oral, Daily, First dose on Wed12/26/20 at 0900 [facility] Medication administered onsite Docusate Sodium 100 MG Oral Capsule docusate sodium (C OLACE) capsule 100 mg docusate sodium (COLACE) capsule 100 mg 12/26/2020 09:00:00 AM EDT 100 mg Oral active 100 mg, Oral, 2 times daily, First dose on Wed12/26/20 at 0900, Post-op
Start first POD.
[facility] Medication administered onsite heparin (porcine) injection 5,000 Units 61630-237-36 12/27/19 09:00:00 AM EDT 5000 U Subcutaneous [...] equal to 1.7 if receiving Coumadin therapy.
[facility] Medication administered onsite Folic Acid 1 MG Oral Tablet folic acid (FOLVITE) table t 1 mg folic acid (FOLVITE) tablet 1 mg 12/26/2020 09:00:00 AM EDT 1 mg Oral active 1 mg, Oral, Daily, First dose on Lottie 12/26/20 at 0900 [facility] Medication administered onsite Aspirin 81 MG Delayed [...] OG tube in place, give non-enteric aspirin.
[facility] Medication administered onsite clopidogrel 75 MG Oral Tablet clopidogrel (PLAVIX) tab let 75 mg clopidogrel (PLAVIX) tablet 75 mg 12/26/2020 09:00:00 AM EDT 75 mg Oral active 75 mg, Oral, Daily, First dose on Lottie 12/26/20 at 0900, Post-op
Start first POD.
[facility] Medication administered onsite Insulin Lispro 100 UNT/ML [...] cover POC glucose at 08:00, 12:00, 17:00.
[facility] Medication administered onsite clopidogrel 75 MG Oral Tablet clopidogrel (PLAVIX) 75 MG tablet clopidogrel (PLAVIX) 75 MG tablet 12/26/2020 12:00:00 AM EDT 75 mg Oral active Take 1 tablet (75 mg total) by mouth nightly [facility] normal saline flush 0.9 % injection 3 mL 00681-311-72 12/25/2020 09:00:00 PM EDT 3 mL Intravenous active 3 mL , Intravenous, PROTOCOL, First dose on Wed12/25/20 at 2100, Post-op
flush per protocol, D/C Main IV fluid if appropriate
[facility] Medication administered onsite Nystatin 638875 UNT/ML Oral Suspension n ystatin (MYCOSTATIN) 311805 UNIT/ML oral suspension 200,000 Units nystatin (MYCOSTATIN) 123914 UNIT/ML ora l suspension 200,000 Units 12/25/2020 09:00:00 PM EDT 059232 U Oral ac tive 200,000 Units, Oral, 4 times daily, First dose on Wed12/25/20 at 2099
Swish and spit
[facility] Medication administered onsite 12 HR Guaifenesin 600 MG Extended Releas e Oral Tablet guaiFENesin (MUCINEX) 12 hr tablet 1,200 mg guaiFENesin (MUCINEX) 12 hr tablet 1,200 mg 12/25/2020 09:00:00 PM EDT 1200 mg Oral active 1,200 mg, Oral, 2 times daily, First dose on Wed12/25/20 at 2099 [facility] Medication administered onsite montelukast 10 MG Oral Tablet montelukast (SINGULAIR) tablet 10 mg montelukast (SINGULAIR) tablet 10 mg 12/25/2020 09:00:00 PM EDT 10 mg Oral active 10 mg, Oral, Nightly, First dose on Wed12/25/20 at 2099 [facility] Medication administered onsite Famotidine 20 MG Oral Tablet famotidine (PEPCID) table t 40 mg famotidine (PEPCID) tablet 40 mg 12/25/2020 09:00:00 PM EDT 40 mg Oral active 40 mg, Oral, Nightly, First dose on Wed12/25/20 at 2099 [facility] Medication administered onsite Citalopram 20 MG Oral Tablet citalopram (CeleXA) table t 20 mg citalopram (CeleXA) tablet 20 mg 12/25/2020 09:00:00 PM EDT 20 mg Oral active 20 mg, Oral, Nightly, First dose on Wed12/25/20 at 2099 [facility] Medication administered onsite Cefazolin 1000 MG Injection [...] minutes. Use within 1 hour of reconstitution
[facility] Perioperative Pharmacoprophylaxis Medication administered onsite formoterol fumarate 0.01 MG/ML Inhalant Solution formoterol (PERFOROMIST) nebulizer solution 20 mcg formoterol (PERFOROMIST) nebulizer solution 20 mcg 12/25/2020 08:00:00 PM EDT 20 ug active 20 mcg, Nebulization, 2 times daily, First dose on Wed12/25/20 at 1999 [facility] Medication administered onsite Budesonide 0.25 MG/ML Inhalant Solution budesonide (PULMICORT) nebulizer solution 0.5 mg budesonide (PULMICORT) nebulizer solution 0.5 mg 12/25 08:00:00 PM EDT 0.5 mg active 0.5 mg, Nebulization, 2 times daily, First dose on Wed12/25/20 at 1999 [facility] Medication administered onsite sodium chloride 0.9% (NS) infusion 8777-7007-38 12/25/2020 05:00:00 P M EDT Intravenous completed at 75 mL/hr, Intravenous, Continuous, Starting on Wed12/25/20 at 1700, For 4 hours, Post-op [facility] Medication administered onsite ferrous sulfate 325 MG Oral Tablet ferrous sulfate tab let 325 mg ferrous sulfate tablet 325 mg 12/25/2020 05:00:00 PM EDT 325 mg Oral act erica 325 mg, Oral, 2 times daily with meals, First dose on Wed12/25/20 at 1700
Separate from antacids as far as possible. Take with food, do not crush
[facility] Medication administered onsite ondansetron (ZOFRAN) injection 4 mg [id number] 12/25/2020 04:44:3 3 PM EDT 4 mg Intravenous active 4 mg, In travenous, Every 6 hours PRN, nausea, vomiting, Starting on Wed12/25/20 at 1644, Post-op
If no response in 15-30 minutes then give metoclopramide 10 mg IV x 1 then q6h prn N/V.
[facility] Medication administered onsite acetaminophen (TYLENOL) 325 MG [...] Wed12/25/20 at 1644, Post-op [Order 2 End] [facility] Medication administered onsite 2 ML Metoclopramide 5 MG/ML Prefilled Sy ringe metoclopramide (REGLAN) injection 10 mg metoclopramide (REGLAN) injection 10 mg 12/25/2020 04:44:32 PM E DT 10 mg Intravenous active 10 mg, I ntravenous, Every 6 hours PRN, nausea, vomiting, Starting on Wed12/25/20 at 1644, Post-op
Give once if no response to Zofran after 15-30 minutes, then q6h prn N/V.
[facility] Medication administered onsite Ipratropium [place] 0.2 MG/ML Inhalant S olution ipratropium (ATROVENT) 0.02 % nebulizer solution 0.5 mg ipratropium (ATROVENT) 0.02 % nebulizer solution 0.5 mg 12/25/2020 03:00:00 PM EDT 0.5 mg active 0.5 mg, Nebulization, 4 times daily, First dose on Wed12/25/20 at 1500 [facility] Medication administered onsite Albuterol 0.83 MG/ML Inhalant Solution a lbuterol (PROVENTIL) nebulizer solution 2.5 mg albuterol (PROVENTIL) nebulizer solution 2.5 mg 2020 03:00:00 PM EDT 2.5 mg active 2.5 mg, Nebulization, 4 times daily, First dose on Wed12/25/20 at 1500 [facility] Medication administered onsite Nitroglycerin 0.4 MG Sublingual Tablet n itroglycerin (NITROSTAT) SL tablet 0.4 mg nitroglycerin (NITROSTAT) SL tablet 0.4 mg 12/25/2020 02:38:07 P M EDT 0.4 mg Sublingual active 0.4 mg, S ublingual, Every 5 min PRN, chest pain, Starting on Wed12/25/20 at 1438
May administer up to 3 doses per episode.
[facility] Medication administered onsite sodium chloride 0.9% (NS) infusion 6001-7149-94 12/25/2020 11:00:00 A M EDT Intravenous active at 75 mL/hr, Intravenous, Continuous, Starting on Wed12/25/20 at 1100, Pre-op [facility] Medication administered onsite Magnesium Chloride 0.42402 MEQ/ML / Pota ssium Chloride 0.0497 MEQ/ML / Sodium Acetate 0.0163 MEQ/ML / Sodium Chloride 0.0899 MEQ/ML / Sodium gluconate 5.02 MG/ML Injectable Solution [Normosol-R] electrolyte-R (NORMOSOL-R/PLASMALYTE-R) solution electrolyte-R (NORMOSOL-R/PLASMALYTE-R) solution 12/25 11:00:00 AM EDT Intravenous active at 1 00 mL/hr, Intravenous, Continuous, Starting on Wed12/25/20 at 1100 [facility] Medication administered onsite Furosemide 20 MG Oral Tablet furosemide (LASIX) 20 MG tablet furosemide (LASIX) 20 MG tablet 12/10/2020 12:00:00 AM EDT 20 mg Oral abort ed Take 1 tablet (20 mg total) by mouth daily [facility] clopidogrel 75 MG Oral Tablet clopidogrel (PLAVIX) 75 MG tablet clopidogrel (PLAVIX) 75 MG tablet 12/10/2020 12:00:00 AM EDT 75 mg Oral aborted Take 1 tablet (75 mg total) by mouth daily [facility] normal saline flush 0.9 % injection 3 mL [id number] 11/27/2020 02:00:00 PM EDT 3 mL Intravenous active 3 mL , Intravenous, Every 8 hours (scheduled), First dose on Wed11/27/20 at 1400, PACU (only)
flush per protocol, D/C Main IV fluid if appropriate
[facility] Medication administered onsite Magnesium Chloride 0.71583 MEQ/ML / Pota ssium Chloride 0.0497 MEQ/ML [...] mg/dL, start IV of Normosol-R @100 mL/hr.
[facility] Medication administered onsite Hydralazine Hydrochloride 20 MG/ML Injec table Solution hydrALAZINE (APRESOLINE) injection 5 mg hydrALAZINE (APRESOLINE) injection 5 mg 11/27/2020 12: 19:32 PM EDT 5 mg Intravenous active 5 mg , Intravenous, Every 15 min PRN, high blood pressure, Starting on Wed11/27/20 at 1219, For 4 doses, PACU (only)
Give for a SBP >150 and /or a DBP >100
[facility] Medication administered onsite ondansetron (ZOFRAN) injection 4 mg [id number] 11/27/2020 12:19:3 2 PM EDT 4 mg Intravenous active 4 mg, In travenous, As needed, nausea, vomiting, Starting on Wed11/27/20 at 1219, For 1 dose, PACU (only)
If not given in last 4 hours
[facility] Medication administered onsite Albuterol 0.83 MG/ML Inhalant Solution a lbuterol (PROVENTIL) nebulizer solution 2.5 mg albuterol (PROVENTIL) nebulizer solution 2.5 mg 2020 12:19:32 PM EDT 2.5 mg active 2.5 mg, Nebulization, Once as needed, shortness of breath, Starting on Wed11/27/20 at 1219, For 1 dose, PACU (only) [facility] Medication administered onsite iopamidol (ISOVUE-370) 76 % [id number] 11/27/2020 12:02:05 PM EDT active As needed, Starting on Wed11/27/20 at 1202, Intra-Proc edure [facility] Medication administered onsite lidocaine 1 % injection [id number] 11/27/2020 11:50:34 AM EDT active As needed, Starting on Wed at 1150, Intra-Procedure [facility] Medication administered onsite fentaNYL Citrate (PF) (SUBLIMAZE) injection [id number] 11/27/2020 11:48:08 AM EDT active As neede d, Starting on Wed11/27/20 at 1148, Intra-Procedure [facility] Medication administered onsite 2 ML Midazolam 1 MG/ML Injection midazolam (VERSED) in jection midazolam (VERSED) injection 11/27/2020 11:47:56 AM EDT active As needed, Starting on Wed11/27/20 at 1147, Intra-Procedure [facility] Medication administered onsite Nitroglycerin 0.4 MG Sublingual Tablet n itroglycerin (NITROSTAT) 0.4 MG SL tablet nitroglycerin (NITROSTAT) 0.4 MG SL tablet 11/25/2020 12:00:00 A M EDT 0.[address] 1 t ablet (0.4 mg total) under the tongue every 5 (five) minutes as needed for chest pain [facility] Methylprednisolone 125 MG Injection [Solu-Medrol] METH YLPREDNISOLONE [...] Mupirocin 08/30/2020 12:00:00 AM EDT active [facility] ([facility], ) Budesonide 0.25 MG/ML Inhalant Solution Budesonide 08/12/2020 12: 00:00 AM EST completed [facility] ([facility], ) Injection (SC)/(Im) 07/19/2020 12:00:00 AM [...] (SC)/(Im) 07/17/2020 12:00:00 AM EST completed [facility] ([facility] Medication administered onsite Methylprednisolone 125 MG Injection [Solu-Medrol] METH YLPREDNISOLONE SODIUM SUCCINATE/PF 07/17/2020 12:00:00 AM EST recon soln 3 I NJECT INTRAMUSCULARLY IMMEDIATELY INJECT INTRAMUSCULARLY IMMEDIATELY SOLD: 07/17/2020 [facility] Injection (SC)/(Im) 06/21/2020 12:00:00 AM EST completed [facility] ([facility] Medication administered onsite Injection (SC)/(Im) 06/20/2020 12:00:00 AM EST completed [facility] ([facility] Medication administered onsite Injection (SC)/(Im) 06/19/2020 12:00:00 AM EST completed [facility] ([facility] Medication administered onsite Solu-Medrol Solu-Medrol 06/19/2020 12:00:00 AM EST active [facility] ([facility] Metformin hydrochloride 500 MG Oral Tablet Metformin HCL 05/27/2020 12:00:00 AM EST ORAL active [facility] ([facility] 5 % 04/17/2020 12:00:00 AM EST adhesive patch,medicate d 30 APPLY ONE PATCH TOPICALLY TO THE SKIN DIRECTED, 12 HOURS ON AND THEN 12 HOURS OFF APPLY ONE PATCH TOPICALLY TO THE SKIN DIRECTED, 12 HOURS ON AND THEN 12 HOURS OFF SOLD: 04/18/2020 [facility] Lidocaine Hydrochloride 0.05 MG/MG Transdermal Patch [Lidode rm] Lidoderm 04/17/2020 12:00:00 AM EST active [facility] ([facility] Albuterol 0.83 MG/ML Inhalant Solution Albuterol Sulfate 1 06/12/2019 12:00:00 AM EST completed [facility] ([facility], ) Spiriva Respimat Spiriva Respimat 04/03/2020 12:00:00 AM EDT RESPIRATORY completed [facility] ([facility], ) Zinc 03/19/2020 12:00:00 AM EDT ORAL active [facility] ([facility] clopidogrel 75 MG Oral Tablet clopidogrel (PLAVIX) 75 MG tablet clopidogrel (PLAVIX) 75 MG tablet 12/04/2019 12:00:00 AM EDT 75 mg Oral aborted Take 1 tablet (75 mg total) by mouth daily [facility] Nitroglycerin 0.4 MG Sublingual Tablet n itroglycerin (NITROSTAT) 0.4 MG SL tablet nitroglycerin (NITROSTAT) 0.4 MG SL tablet 11/22/2018 12:00:00 A M EDT 0.[address] 1 t ablet (0.4 mg total) under the tongue every 5 (five) minutes as needed for chest pain [facility] gabapentin 100 MG Oral Capsule gabapentin (NEURONTIN) 100 MG capsule gabapentin (NEURONTIN) 100 MG capsule 10/27/2017 12:00:00 AM EDT 100 mg Oral aborted Take 100 mg by mouth 3 (three) times a d ay [facility] 24 HR Diltiazem Hydrochloride 240 MG Ext ended Release Oral Capsule diltiazem (CARDIZEM CD) 240 MG 24 hr capsule diltiazem (CARDIZEM CD) 240 MG 24 hr capsule 09/28/2017 12:00:00 AM EDT aborted take 1 capsule by mouth once daily (REPLACES PRAZOSIN) [facility] Sulfamethoxazole 800 MG / Trimethoprim 1 60 MG Oral Tablet sulfamethoxazole- trimethoprim (BACTRIM DS,SEPTRA DS) 800-160 MG per tablet sulfamethoxazole- trimethoprim (BACTRIM DS,SEPTRA DS) 800-160 MG per tablet 08/27/2016 12:00:00 AM EDT aborted TAKE ONE TABLET BY MOUTH ONCE A DAY ON Wednesday AND WEDNESDAY [facility] ibandronic acid 150 MG Oral Tablet ibandronate (BONIVA ) 150 MG tablet ibandronate (BONIVA) 150 MG tablet 150 mg Oral abo rted Take 150 mg by mouth every 30 (thirty) days [facility] empagliflozin 25 MG Oral Tablet Empagliflozin 25 MG TA BS Empagliflozin 25 MG TABS 25 mg Oral aborted Take 25 mg by mout h daily [facility] Immune Globulin, Human, (HIZENTRA) 10 GM/50ML SOLN [id number] Subcutaneous aborted Inject under the skin once a week [facility] Clotrimazole 10 MG Oral Lozenge clotrimazole (MYCELEX) 10 MG parisa clotrimazole (MYCELEX) 10 MG parsia 10 mg Oral aborted Take 10 mg by mouth 5 (five) times a day [facility] carvedilol 6.25 MG Oral Tablet carvedilol (COREG) 6.25 MG tablet carvedilol (COREG) 6.25 MG tablet 6.25 mg Oral aborted Take 6.25 mg by mouth 2 (two) times a day [facility] Calcium Citrate 950 MG Oral Tablet calcium citrate (CA LCITRATE) 950 MG tablet calcium citrate (CALCITRATE) 950 MG tablet 1 {tbl} Oral aborted Take 1 tablet by mouth daily [facility] pitavastatin 2 MG Oral Tablet pitavastatin (LIVALO) 2 MG TABS pitavastatin (LIVALO) 2 MG TABS 2 mg Oral aborted Take 2 mg by mouth nightly [facility] Ranitidine 300 MG Oral Tablet ranitidine (ZANTAC) 300 MG tablet ranitidine (ZANTAC) 300 MG tablet 300 mg Oral aborted Take 300 mg by mouth nightly [facility] metaxalone 800 MG Oral Tablet metaxalone (SKELAXIN) 80 0 MG tablet metaxalone (SKELAXIN) 800 MG tablet 800 mg Oral aborted Take 800 mg by mouth 3 (three) times a day as needed for pain [facility] 12 HR Guaifenesin 600 MG Extended Releas e Oral Tablet guaiFENesin (MUCINEX) 600 MG 12 hr tablet guaiFENesin (MUCINEX) 600 MG 12 hr tablet 1200 m g Oral aborted Take 1,200 mg by mouth 2 (two) t imes a day [facility] Tiotropium [place] Monohydrate (SPIRIVA RESPIMAT IN) drug or medicati on Inhalation aborted Inhale daily [facility] torsemide 20 MG Oral Tablet torsemide (DEMADEX) 20 MG tablet torsemide (DEMADEX) 20 MG tablet 10 mg Oral aborted Take 10 mg by mouth daily [facility] 30 ACTUAT aclidinium bromide 0.4 MG/ACTU AT Dry Powder Inhaler aclidinium bromide (TUDORZA) 400 MCG/ACT AEPB inhaler aclidinium bromide (TUDORZA) 400 MCG/ACT AEPB inhaler 1 {puff} Inhalation aborted Inhale 1 puff 2 (two) times a day [facility] glimepiride 4 MG Oral Tablet glimepiride (AMARYL) 4 MG tablet glimepiride (AMARYL) 4 MG tablet 1 {tbl} Oral aborted Take 1 tablet by mouth 2 (two) times a day [facility] formoterol fumarate 0.01 MG/ML Inhalant Solution formoterol (PERFOROMIST) 20 MCG/2ML nebulizer solution formoterol (PERFOROMIST) 20 MCG/2ML nebu lizer solution aborted 1 neb twice a d ay dx:J44.9 [facility] Insurance Providers Payer name Policy type / Coverage type Policy ID Covered alliance party ID Covered alliance party's relationship to macias Policy Macias Plan Information [id number] [facility] [id number] WI2 [id number] [facility] [id number] SP [id number] [place] [id number] [facility] 7 [id number] [facility]anner [id number] 1 [id number] [facility]anner [id number] 0 [id number] [employer] [id number] WI2 [id number] [employer] [id number] WI2 [id number] [employer] (68) [id number] MEDICARE [id number] SP [id number] A POMCO [id number] WI2 [id number] POM[facility] [id number] WI2 [id number] MEDICARE MEDICARE [id number] Self MINOO VELASQUEZ III ME DICARE [place] [id number] 1 [id number] Medicare Part B [facility] [id number] ASSIGNED MEDICARE (81) [id number] 1 [id number] MEDICARE [id number] SP [id number] [facility] [id number] WI2 [id number] UMR [id number] Spo [id number] UMR [id number] Spo [id number] UMR [id number] UMR [id number] UMR [id number] Spo [id number] UMR [facility] [id number] WI2 [id number] R [facility] [id number] WI2 [id number] COMMERCIAL GENERIC [id number] Teresa 1 [id number] COMMERCIAL GENERIC [id number] Teresa 1 [id number] Medicare Part B Medicare Primary [id number] Self [id number] MEDICARE [id number] A ANSI-Commercial [id number] ANSI-Commercial [id number] ANSI-Medicare Part B [id number] [facility] Commercial [id number] Family Dependent [id number] Medicare Part B Medicare Primary [id number] Self [id number] r Commercial [id number] Self [id number] Medicare Part B Medicare Primary [id number] Self [id number] [employer] [id number] WI2 [id number] MEDICARE C [id number] S [id number] A MEDICARE [id number] Teresa [id number] A UMR O [id number] P [id number] [employer] PPO O [id number] S [id number] MEDICARE PART A -O/P [id number] 18 [id number] POMCO-O/P [id number] 01 [id number] MEDICARE -O/P [id number] 18 [id number] MEDICARE [id number] SP [id number] [employer] [id number] Spo [id number] POM[employer] PPO O [id number] S [id number] POMCO POMCO [id number] Self E V[place]ASQUEZ POMCO POMCO [id number] Spo [id number] MEDICARE [id number] Teresa [id number] A POMCO [id number] WI2 [id number] [facility] Medigap Part B [id number] Family Dependent [place] Primary [id number] Self SELF PAY 2 UNAVAILABLE 1 UNAVAILA BLE [facility]OM[facility] PPO 2 [id number] 2 [id number] [facility] PPO S UNAVAILABLE [id number] P UNAVAILA BLE MEDICARE P UNAVAILABLE [id number] P UNAVAILA BLE [id number] [facility] O [id number] S [id number] R [facility] [id number] WI2 [id number] R [facility] [id number] SP [id number] UMR -O/P [id number] 01 [id number] MEDICARE PART A -O/P [id number] 18 [id number] MEDICARE [id number] Teresa [id number] E74 MEDICARE [id number] POM[employer] [id number] Spo [id number] MEDICARE C [id number] S [id number] UMR O [id number] S [id number] NGS [place] O [id number] S [id number] UMR -O [id number] 01 [id number] MEDICARE -RECURRING [id number] 18 [id number] Commercial 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 [id number] [employer] [id number] Commercial Ins urance Co. [id number] Medicare [id number] Medicare Part B [id number] Umr/Uhc/[employer]om[employer] Medigap Part B [id number] Family Dependent [id number] Medicare Natl Gov't Servi Medicare Primary [id number] Self [id number] MEDICARE [id number] SP [id number] ANSI-Medicare Part B [id number] ANSI-Commercial [id number] ANSI-Commercial [id number] MEDICARE PI PI UMR PI PI Umr Commercial [id number] Family Dependent [id number] Medicare Part B Medicare Primary [id number] Self [id number] NORIDIAN JE PART B C [id number] S [id number] ANSI-Commercial [id number] ANSI-Medicare Part B [id number] ANSI-Commercial [id number] [facility] Commercial [id number] Family Dependent [id number] Problems, Conditions, and Diagnoses Code Display Name Description Problem Type Effective Dates Data Source(s) 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, unspec ified Common variable immunodeficiency, unspecified Diagnosis 02/21/2021 11:22:00 AM EDT [facility] Z95.2 Presence of prosthetic heart valve Presence of p rosthetic heart valve Diagnosis 01/29/2021 02:03:11 PM EDT [facility] Z95.3 Presence of xenogenic heart valve Presence of xe nogenic heart valve Diagnosis 01/29/2021 02:03:11 PM EDT [facility] I35.0 Nonrheumatic aortic (valve) stenosis Nonrheumati c aortic (valve) stenosis Diagnosis 12/25/2020 10:06:00 AM EDT [facility] I25.10 Atherosclerotic heart diseas e of [place] coronary artery without angina pectoris Atherosclerotic heart disease of [place] Diagnosis 11/27/2020 06:29:00 AM EDT [facility] R06.02 Shortness of breath Shortness of breath Diagnosis 0 11/27/2020 06:29:00 AM EDT [facility] I50.20 Unspecified systolic (congestive) heart failure Unspecified systolic (congestive) heart Diagnosis 11/27/2020 06:29:00 AM EDT [facility] I20.8 Other forms of angina pectoris Other forms of angina p ectoris Diagnosis 11/27/2020 06:29:00 AM EDT [facility] E07.9 Disorder of thyroid, unspecified Disorder of thy roid, unspecified Diagnosis 11/25/2020 02:35:37 PM EDT [facility] I25.110 Atherosclerotic heart diseas e [place] coronary artery with unstable angina pectoris Atherosclerotic heart disease of [place] Diagnosis 11/25/2020 02:35:37 PM EDT [facility] [id number] Fracture of one rib, left side, initial encounter for closed fracture Fracture of one rib, left side, initial encounter for closed fracture Diagnosis 10/22/2020 10:59:00 AM EDT [facility] N281 Cyst of kidney, acquired Cyst of kidney, acquired Diag nosis 08/22/2020 08:46:00 AM EDT [facility] I2510 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 Diagnosis 08/22/2020 08:46:00 AM EDT [facility] J449 Chronic obstructive pulmonary disease, u nspecified Chronic obstructive pulmonary disease, unspecified Diagnosis 08/22/2020 08:46:00 AM EDT [facility] 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 Diagnosis 08/22/2020 08:46:00 AM EDT [facility] R0602 Shortness of breath Shortness of breath Diagnosis 0 08/22/2020 08:46:00 AM EDT [facility] N40.1 [id number] Benign prostatic hyperplasia wit h lower urinary tract symptoms Problem 02/21/2021 12:00:00 AM EDT eCW1 ([facility]) Z95.2 S/P TAVR (transcatheter aortic valve rep lacement) S/P TAVR (transcatheter aortic valve replacement) [id number] 01/29/2021 12:00:00 AM EDT [facility] [id number] Hypothyroidism Hypothyroidism Problem 01/09/2021 12:00: 00 AM EDT [facility] ([facility] 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 ) Note: 4.7cm 08/27/20 E78.5 Hyperlipidemia Hyperlipidemia Problem 06/19/2020 12:00: 00 AM EST [facility] ([facility] [id number] ALT (SGPT) level raised ALT (SGPT) level raised Proble m 03/19/2020 12:00:00 AM EDT [facility] ([facility] ) Surgeries/Procedures Procedure Description Date Indications Data Source(s) OFFICE OUTPATIENT VISIT 25 MINUTES 04/10/2021 12:00:00 AM EDT [facility] ([facility], ) OFFICE OUTPATIENT VISIT 25 MINUTES 04/09/2021 12:00:00 AM EDT [facility] ([facility] Spirometry 03/03/2021 12:00:00 AM EDT M EDENT ([facility], ) OFFICE OUTPATIENT VISIT 25 MINUTES 03/03/2021 12:00:00 AM EDT [facility] ([facility], ) OFFICE OUTPATIENT VISIT 25 MINUTES 02/28/2021 12:00:00 AM EDT [facility] ([facility]) OFFICE OUTPATIENT VISIT 15 MINUTES 02/24/2021 12:00:00 AM EDT [facility] ([facility] ECG ROUTINE ECG W/LEAST 12 LDS W/I&R <td>POCT AMB EKG</td><td>Routine</td><td>01/29/2021 4:06 PM EDT</td><td> S/P TAVR (transcatheter aortic valve replacement)</td><td> </td> 01/29/2021 04:06:00 PM EDT S/P TAVR (transcatheter aortic valve replacement) [facility] S/P TAVR (transcatheter aortic valve rep lacement) OFFICE OUTPATIENT VISIT 25 MINUTES 01/07/2021 12:00:00 AM EDT [facility] ([facility] GLUC BLD GLUC MNTR DEV CLEARED FDA SPEC HOME USE <td>P OCT GLUCOSE</td><td>Routine</td><td>12/26/2020 11:59 AM EDT</td><td></td><td> </td> 12/26/2020 11:59:00 AM EDT [facility] GLUC BLD GLUC MNTR DEV CLEARED FDA SPEC HOME USE <td>P OCT GLUCOSE</td><td>Routine</td><td>12/26/2020 8:32 AM EDT</td><td></td><td> </td> 12/26/2020 08:32:00 AM EDT [facility] ECHO TTHRC R-T 2D W/WOM-MODE COMPL SPEC&COLR DOP <td>E CHOCARDIOGRAM TRANSTHORACIC</td><td>Pending Discharge</td><td>12/26/2020 8:01 AM EDT</td><td></td><td> </td> 12/26/2020 08:01:55 AM EDT [facility] BLOOD COUNT COMPLETE AUTOMATED <td>CBC</td><td>Timed</ td><td>12/26/2020 5:55 AM EDT</td><td></td><td> </td> 12/26/2020 05:55:00 AM EDT [facility] BASIC METABOLIC PANEL CALCIUM TOTAL <td>BASIC METABOLI C PANEL</td><td>Timed</td><td>12/26/2020 5:55 AM EDT</td><td></td><td> </td> 12/26/2020 05:55:00 AM EDT [facility] GLUC BLD GLUC MNTR DEV CLEARED FDA SPEC HOME USE <td>P OCT GLUCOSE</td><td>Routine</td><td>12/25/2020 8:03 PM EDT</td><td></td><td> </td> 12/25/2020 08:03:00 PM EDT [facility] XR CHEST PORTABLE <td>XR CHEST PORTABLE</td><t d>STAT</td><td>12/25/2020 3:09 PM EDT</td><td></td><td> </td> 12/25/2020 03:09:47 PM EDT [facility] PROTHROMBIN TIME <td>PROTIME-INR</td><td>STAT </td><td>12/25/2020 2:53 PM EDT</td><td></td><td> </td> 12/25/2020 02:53:00 PM EDT [facility] BLOOD COUNT COMPLETE AUTOMATED <td>CBC</td><td>STAT</t d><td>12/25/2020 2:53 PM EDT</td><td></td><td> </td> 12/25/2020 02:53:00 PM EDT [facility] MAGNESIUM <td>MAGNESIUM</td><td>STAT</ td><td>12/25/2020 2:53 PM EDT</td><td></td><td> </td> 12/25/2020 02:53:00 PM EDT [facility] HEMOGLOBIN GLYCOSYLATED A1C <td>HEMOGLOBIN A1C</td><td>Routine</td><td>12/25/2020 2:53 PM EDT</td><td></td><td> </td> 12/25/2020 02:53:00 PM EDT [facility] BASIC METABOLIC PANEL CALCIUM TOTAL <td>BASIC METABOLI C PANEL</td><td>STAT</td><td>12/25/2020 2:53 PM EDT</td><td></td><td> </td> 12/25/2020 02:53:00 PM EDT [facility] ECG ROUTINE ECG W/LEAST 12 LDS TRCG ONLY W/O I&R <td>E CG 12- LEAD</td><td>Routine</td><td>12/25/2020 2:50 PM EDT</td><td></td><td></td> 12/25/2020 02:50:32 PM EDT [facility] GLUC BLD GLUC MNTR DEV CLEARED FDA SPEC HOME USE <td>P OCT GLUCOSE</td><td>Routine</td><td>12/25/2020 2:40 PM EDT</td><td></td><td> </td> 12/25/2020 02:40:00 PM EDT [facility] TRANSCATHETER AORTIC VALVE IMPLANT FEMORAL <td>TRANSCA THETER AORTIC VALVE IMPLANT FEMORAL</td><td>Routine</td><td>12/25/2020 2:08 PM EDT</td><td> Nonrheumatic aortic valve stenosis</td><td></td> 12/25/2020 02:08:37 PM EDT Nonrheumatic aortic valve stenosis [facility] Nonrheumatic aortic valve stenosis POC ACT <td>POC ACT</td><td>Routine< /td><td>12/25/2020 1:36 PM EDT</td><td></td><td> </td> 12/25/2020 01:36:00 PM EDT [facility] POC ACT <td>POC ACT</td><td>Routine< /td><td>12/25/2020 1:21 PM EDT</td><td></td><td> </td> 12/25/2020 01:21:00 PM EDT [facility] POC ARTERIAL BLOOD GAS W LYTES <td>POC ARTERIAL BLOOD GAS W LYTES</td><td>Routine</td><td>12/25/2020 1:21 PM EDT</td><td></td><td> </td> 12/25/2020 01:21:00 PM EDT [facility] ECG TRANSESOPHAG R-T 2D W/PRB IMG ACQUISJ I&R <td>ECHO CARDIOGRAM TRANSESOPHAGEAL</td><td>Routine</td><td>12/25/2020 11:37 AM EDT</td><td></td><td> </td> 12/25/2020 11:37:19 AM EDT [facility] GLUC BLD GLUC MNTR DEV CLEARED FDA SPEC HOME USE <td>P OCT GLUCOSE</td><td>Routine</td><td>12/25/2020 10:41 AM EDT</td><td></td><td> </td> 12/25/2020 10:41:00 AM EDT [facility] BLOOD TYPING ABO <td>PREPARE RBC</td><td>Rout ine</td><td>12/25/2020 12:01 AM EDT</td><td></td><td></td> 12/25/2020 12:01:00 AM EDT [facility] URNLS DIP STICK/TABLET RGNT AUTO W/O MICROSCOPY <td>UR INALYSIS W/O MICRO</td><td>Routine</td><td>12/23/2020 11:35 AM EDT</td><td> Nonrheumatic aortic valve stenosis</td><td> </td> 12/23/2020 11:35:00 AM EDT Nonrheumatic aortic valve stenosis [facility] Nonrheumatic aortic valve stenosis ECG ROUTINE ECG W/LEAST 12 LDS TRCG ONLY W/O I&R <td>E CG 12- LEAD</td><td>Routine</td><td>12/23/2020 10:54 AM EDT</td><td> Nonrheumatic aortic valve stenosis</td><td></td> 12/23/2020 10:54:27 AM EDT Nonrheumatic aortic valve stenosis [facility] Nonrheumatic aortic valve stenosis ROOM TEMP AB SCREEN <td>ROOM TEMP AB SCREEN</td> <td>Routine</td><td>12/23/2020 10:35 AM EDT</td><td> Nonrheumatic aortic valve stenosis</td><td> </td> 12/23/2020 10:35:00 AM EDT Nonrheumatic aortic valve stenosis [facility] Nonrheumatic aortic valve stenosis BILIRUBIN UNCONJ (INDIRECT) <td>BILIRUBIN UNCONJ (INDIRECT)</td><td>Routine</td><td>12/23/2020 10:35 AM EDT</td><td></td><td> </td> 12/23/2020 10:35:00 AM EDT [facility] NT PRO BNP <td>NT PRO BNP</td><td>Routi ne</td><td>12/23/2020 10:35 AM EDT</td><td> Nonrheumatic aortic valve stenosis</td><td> </td> 12/23/2020 10:35:00 AM EDT Nonrheumatic aortic valve stenosis [facility] Nonrheumatic aortic valve stenosis THROMBOPLASTIN TIME PARTIAL PLASMA/WHOLE BLOOD <td>APTT</td><td>Routine</td><td>12/23/2020 10:35 AM EDT</td><td> Nonrheumatic aortic valve stenosis</td><td> </td> 12/23/2020 10:35:00 AM EDT Nonrheumatic aortic valve stenosis [facility] Nonrheumatic aortic valve stenosis PROTHROMBIN TIME <td>PROTIME-INR</td><td>Rout ine</td><td>12/23/2020 10:35 AM EDT</td><td> Nonrheumatic aortic valve stenosis</td><td> </td> 12/23/2020 10:35:00 AM EDT Nonrheumatic aortic valve stenosis [facility] Nonrheumatic aortic valve stenosis BLOOD COUNT COMPLETE AUTO&AUTO DIFRNTL WBC COUNT <td>C BC AND DIFFERENTIAL</td><td>Routine</td><td>12/23/2020 10:35 AM EDT</td><td> Nonrheumatic aortic valve stenosis</td><td> </td> 12/23/2020 10:35:00 AM EDT Nonrheumatic aortic valve stenosis [facility] Nonrheumatic aortic valve stenosis BLOOD TYPING ABO <td>TYPE AND SCREEN</td><td> Routine</td><td>12/23/2020 10:35 AM EDT</td><td> Nonrheumatic aortic valve stenosis</td><td> </td> 12/23/2020 10:35:00 AM EDT Nonrheumatic aortic valve stenosis [facility] Nonrheumatic aortic valve stenosis HEMOGLOBIN GLYCOSYLATED A1C <td>HEMOGLOBIN A1C</td><td>Routine</td><td>12/23/2020 10:35 AM EDT</td><td> Nonrheumatic aortic valve stenosis</td><td> </td> 12/23/2020 10:35:00 AM EDT Nonrheumatic aortic valve stenosis [facility] Nonrheumatic aortic valve stenosis BILIRUBIN DIRECT <td>BILIRUBIN, DIRECT</td><t d>Routine</td><td>12/23/2020 10:35 AM EDT</td><td></td><td> </td> 12/23/2020 10:35:00 AM EDT [facility] COMPREHENSIVE METABOLIC PANEL <td>COMPREHENSIVE METABO LIC PANEL</td><td>Routine</td><td>12/23/2020 10:35 AM EDT</td><td> Nonrheumatic aortic valve stenosis</td><td> </td> 12/23/2020 10:35:00 AM EDT Nonrheumatic aortic valve stenosis [facility] Nonrheumatic aortic valve stenosis OFFICE OUTPATIENT VISIT 25 MINUTES 12/04/2020 12:00:00 AM EDT [facility] ([facility] DUPLEX SCAN EXTRACRANIAL ART COMPL BI STUDY <td>US CAR OTID BILATERAL</td><td>Pending Discharge</td><td>11/27/2020 1:55 PM EDT</td><td></td><td> </td> 11/27/2020 01:55:18 PM EDT [facility] BEDSIDE PULMONARY FUNCTION TEST <td>BEDSIDE PULMONARY FUNCTION TEST</td><td>Routine</td><td>11/27/2020 12:34 PM EDT</td><td></td><td></td> 11/27/2020 12:34:45 PM EDT [facility] CARDIAC CATHETERIZATION <td>CARDIAC CATHETERIZATION</td><td>Routine</td><td>11/27/2020 12:07 PM EDT</td><td> Aortic valve stenosis, etiology of cardiac valve disease unspecified Shortness of breath Stable angina Atherosclerosis of [place] coronary artery of [place] heart, angina presence unspecified Systolic heart failure, unspecified HF chronicity</td><td> </td> 11/27/2020 12:07:52 PM EDT Systolic heart failure, unspecified HF c hronicityAtherosclerosis of [place] coronary artery of [place] heart, angina presence unspecifiedStable anginaShortness of breathAortic valve stenosis, etiology of cardiac valve disease unspecified [facility] Systolic heart failure, unspecified HF c hronicity Atherosclerosis of [place] coronary arter y of [place] heart, angina presence unspecified Stable angina Shortness of breath Aortic valve stenosis, etiology of cardi ac valve disease unspecified DOP ECHOCARD COLOR FLOW VELOCITY MAPPING <td>TRANSESOP HAGEAL ECHO DOPPLER COLOR FLOW AND PULSED WAVE</td><td>Routine</td><td>11/27/2020 10:03 AM EDT</td><td></td><td> </td> 11/27/2020 10:03:51 AM EDT [facility] COVID/FLU AB/RSV PCR <td>COVID/FLU AB/RSV PCR</td ><td>STAT</td><td>11/27/2020 6:56 AM EDT</td><td></td><td> </td> 11/27/2020 06:56:00 AM EDT [facility] BLOOD COUNT COMPLETE AUTOMATED <td>CBC</td><td>STAT</t d><td>11/27/2020 6:56 AM EDT</td><td></td><td> </td> 11/27/2020 06:56:00 AM EDT [facility] BASIC METABOLIC PANEL CALCIUM TOTAL <td>BASIC METABOLI C PANEL</td><td>STAT</td><td>11/27/2020 6:56 AM EDT</td><td></td><td> </td> 11/27/2020 06:56:00 AM EDT [facility] ECG ROUTINE ECG W/LEAST 12 LDS TRCG ONLY W/O I&R <td>E CG 12- LEAD</td><td>Routine</td><td>11/27/2020 6:55 AM EDT</td><td></td><td></td> 11/27/2020 06:55:07 AM EDT [facility] ECG ROUTINE ECG W/LEAST 12 LDS W/I&R <td>POCT AMB EKG</td><td>Routine</td><td>11/25/2020 4:46 PM EDT</td><td> Coronary artery disease involving [place] heart, angina presence unspecified, unspecified vessel or lesion type Atherosclerosis of [place] coronary artery of [place] heart with unstable angina pectoris Disease of thyroid gland Stable angina pectoris</td><td> </td> 11/25/2020 04:46:00 PM EDT Stable angina pectorisDisease of thyroid glandAtherosclerosis of [place] coronary artery of [place] heart with unstable angina pectorisCoronary artery disease involving [place] heart, angina presence unspecified, unspecified vessel or lesion type [facility] Stable angina pectoris Disease of thyroid gland Atherosclerosis of [place] coronary arter y of [place] heart with unstable angina pectoris Coronary artery disease involving [place] heart, angina presence unspecified, unspecified vessel or lesion type OFFICE OUTPATIENT VISIT 15 MINUTES 11/21/2020 12:00:00 AM EDT [facility] ([facility] OFFICE OUTPATIENT VISIT 15 MINUTES 11/20/2020 12:00:00 AM EDT [facility] ([facility] OFFICE OUTPATIENT VISIT 25 MINUTES 11/19/2020 12:00:00 AM EDT [facility] ([facility] Spirometry 10/08/2020 12:00:00 AM EDT M [facility] ([facility]) OFFICE OUTPATIENT VISIT 25 MINUTES 10/08/2020 12:00:00 AM EDT [facility] ([facility]) OFFICE OUTPATIENT VISIT 15 MINUTES 09/23/2020 12:00:00 AM EDT [facility] ([facility]) OFFICE OUTPATIENT VISIT 15 MINUTES 08/30/2020 12:00:00 AM EDT [facility] ([facility]) OFFICE OUTPATIENT VISIT 15 MINUTES 08/28/2020 12:00:00 AM EDT [facility] ([facility] OFFICE OUTPATIENT VISIT 15 MINUTES 07/24/2020 12:00:00 AM EST [facility] ([facility]) OFFICE OUTPATIENT VISIT 15 MINUTES 07/17/2020 12:00:00 AM EST [facility] ([facility]) Injection Fee 07/16/2020 12:00:00 AM EST [facility] ([facility]) OFFICE OUTPATIENT VISIT 25 MINUTES 07/16/2020 12:00:00 AM EST [facility] ([facility]) Results ID Date Data Source [id number] 05/01/2021 10:40:00 AM EST [facility] Name Value Range Interpretation Code Description Data Ximena rce(s) Supporting Document(s) SARS coronavirus 2 RNA [Presence] in Res piratory specimen by GLORIA with probe detection POSITIVE [facility] This lab was ordered by [facility] a nd reported by [facility]. ID Date Data Source [id number] 05/01/2021 10:40:00 AM EST [facility] ([facility] Name Value Range Interpretation [...] results) [facility] ([facility] ) [place] % 5.3 % 2.0-8.0 Normal (applies to [...] (applies to n on-numeric results) [facility] ([facility] Immature Granulocyte % 1.0 % 0-3.0 Normal (applies to non-n umeric results) [facility] ([facility] Neutrophils # 13.4 10 1.5-8.5 Above high normal [facility] ([facility] Lymph # 0.6 10 1.5-5.0 Below low normal [facility] ( [facility] Eos # 0.1 10 0.0-0.5 Normal (applies to non-numeric resul ts) [facility] ([facility] Victoria # 0.8 10 0.0-0.8 Normal (applies to non-numeric resul ts) [facility] ([facility] Baso # 0.1 10 0.0-0.2 Normal (applies to non-numeric resul ts) [facility] ([facility] ID Date Data Source [id number] 05/01/2021 10:40:00 AM EST [facility] ([facility] Name Value Range Interpretation Code Description Data Ximena rce(s) Supporting Document(s) Procalcitonin [Mass/volume] in Serum or Plasma Laboratory test r esult Normal (applies to non-numeric results) [facility] ([facility] <content>SEPSIS INTERPRETATION OF RESULT S</content>
[...] strongly encouraged.</content>
<content></content> ID Date Data Source [id number] 05/01/2021 10:40:00 AM EST [facility] ([facility] Name Value Range Interpretation Code Description Data Ximena rce(s) Supporting Document(s) Influenza A Amplification Laboratory test result Normal (applies to non- numeric results) [facility] ([facility] ) Negative results do not preclude influen za or RSV virus infection and should not be used as the sole basis for treatment or other patient management decisions. Influenza B Amplification Laboratory test result Normal (applies to non- numeric results) [facility] ([facility] ) Negative results do not preclude influen za or RSV virus infection and should not be used as the sole basis for treatment or other patient management decisions. RSV Amplification Laboratory test result Normal (applies to non-numeric results) [facility] ([facility] ) Negative results do not preclude influen za or RSV virus infection and should not be used as the sole basis for treatment or other patient management decisions. Laboratory test finding (navigational concept) Laboratory test r esult Abnormal (applies to non-numeric results) [facility] ASSAY INFORMATION: Real Time RT-PCR test . DISCLAIMER: Testing was performed using the [employer] SARS-CoV-2 test. This test was developed and its performance characteristics determined by [employer]. This test has not been FDA cleared [...] or revoked sooner. ID Date Data Source [id number] 05/01/2021 10:40:00 AM EST [facility] ([facility] Name Value Range Interpretation Code Description Data Ximena rce(s) Supporting Document(s) Lactate [Mass/volume] in Serum or Plasma 1.5 mmol/L 0.4-2.0 Normal (applies to non-numeric results) [facility] ([facility]) Y/N query for Sepsis Lactate Rule: Y ID Date Data Source [id number] 05/01/2021 10:39:00 AM EST [facility] ([facility] Name Value Range Interpretation Code Description Data Ximena rce(s) Supporting Document(s) CPK Creatine Phosphokinase 65 U/L 39-308 Ester l (applies to non-numeric results) [facility] ([facility] ) CK-MB Value Mass 2.2 ng/mL Normal (applies to non-numeric results) [facility] ([facility] MB/CK Relative Index 3.38 Normal (applies to non-num santa results) [facility] ([facility] <content>DIAGNOSIS CRITERIA</content>
<content>MMB ng/ml Relative Index (RI)</content>
<content>NON-AMI < or = 5 N/A</content>
<content>CUEVAS ZONE > 5 < or = 4</content>
<content>AMI > 5 > 4</content>
<content></content> Laboratory test finding (navigational concept) 53.0 ng/L 3 .0-78 Normal (applies to non-numeric results) [facility] ([facility] ID Date Data Source [id number] 05/01/2021 10:39:00 AM EST [facility] ([facility] Name Value Range Interpretation Code Description Data Ximena rce(s) Supporting Document(s) Fibrinogen [Mass/volume] in Platelet poor plasma by Coagulat ion assay 566 mg/dL 268-480 Above high normal [facility] ([facility] ID Date Data Source [id number] 05/01/2021 10:39:00 AM EST [facility] ([facility] Name Value Range Interpretation Code Description Data Ximena rce(s) Supporting Document(s) Prothrombin Time 12.8 s 12.7-14.5 Normal (applies to non-numeric results) [facility] Partial Thromboplastin Time 26.3 s 25.9-37.0 Norm al (applies to non-numeric results) [facility] ([facility] ) Inr 0.93 Normal (applies to non-numeric resul ts) [facility] ([facility] THERAPUTIC HUMAN INR VALUES INDICATIONS NORMAL RANGES PROPHYLAXIS/TREATMENT OF: VENOUS THROMBOSIS 2.0-3.0 PULMONARY EMBOLISM 2.0-3.0 PREVENTION OF SYSTEMIC EMBOLISM FROM: TISSUE HEART VALVES 2.0-3.0 ACUTE MYOCARDIAL INFARCTION 2.0-3.0 VALVULAR HEART DISEASE 2.0-3.0 ATRIAL FIBRILLATION 2.0-3.0 MECHANICAL VALVES(HIGH RISK) 2.5-3.5 RECURRENT MYOCARDIAL INFARCTION 2.5-3.5 ID Date Data Source [id number] 05/01/2021 10:39:00 AM EST [facility] ([facility] Name Value Range Interpretation Code Description Data Ximena rce(s) Supporting Document(s) Venous PH 7.391 units 7.330-7.430 Normal (applies to non-numeric res ults) [facility] Venous Partial Pressure Co2 43.4 mmHg 38.0-50.0 Norm al (applies to non-numeric results) [facility] ([facility] ) Venous Total Co2 27.1 meq/L 24.0-28.0 Normal (applies to non-numeric results) [facility] Venous Hco3 25.7 meq/L 23.0-27.0 Normal (applies to non-numeric resu lts) [facility] Venous Partial Pressure O2 47.6 mmHg 30.0-50.0 Ester l (applies to non-numeric results) [facility] ([facility] ) Venous Standard Hco3 24.6 meq/L Normal (applies to non-num santa results) [facility] ([facility] Venous Base Excess 0.5 Normal (applies to non-numer ic results) [facility] ([facility] Venous O2 Saturation 83.3 % 60.0-80.0 Above high normal [facility] ([facility] ID Date Data Source [id number] 05/01/2021 10:39:00 AM EST [facility] Name Value Range Interpretation Code Description Data Ximena rce(s) Supporting Document(s) Lactate dehydrogenase [Enzymatic activity/volume] in Serum o r Plasma 290 U/L 87-241 Above high normal [facility] ([facility] Magnesium [Mass/volume] in Serum or Plasma 2.0 mg/dL 1.8-2 .4 Normal (applies to non-numeric results) [facility] ([facility]) Thyrotropin [Units/volume] in Serum or Plasma 1.050 uIU/ML 0. 358-3.740 Normal (applies to non-numeric results) [facility] ([facility] Natriuretic peptide.B prohormone N-Terminal [Mass/volu me] in Serum or Plasma 453 pg/mL Above high normal [facility] ([facility] Ferritin [Mass/volume] in Serum or Plasma 80 ng/mL 26-388 Normal (applies to non-numeric results) [facility] ([facility]) C reactive protein [Mass/volume] in Serum or Plasma by High sensitivity method 2.55 mg/dL 0.00-0.30 Above high normal [facility] ([facility] ID Date Data Source [id number] 05/01/2021 10:39:00 AM EST [facility] ([facility] Name Value Range Interpretation Code Description Data Ximena rce(s) Supporting Document(s) Blood Urea Nitrogen 11 mg/dL 7-18 Normal (applies to non-nume laila results) [facility] ([facility] Glucose, Fasting 79 mg/dL 70-100 Normal (applies to non-numeric results) [facility] ([facility] Glomerular Filtration Rate Laboratory test result Normal (applies to non- numeric results) [facility] ([facility] ) <content>Units are mL/min/1.73 m2</content>
<content></content>
<content>Chronic Kidney Disease Staging per NKF:</content>
<content></content>
<content>Stage I & II GFR >=60 Normal to Mildly Decreased</content>
<content>Stage III GFR 30- 59 Moderately Decreased</content>
<content>Stage IV GFR 15-29 Severely Decreased</content>
<content>Stage V GFR <15 Very Little GFR Left</content>
<content>ESRD GFR <15 on CONCRETE ANALYST</content>
<content></content> Creatinine For GFR 1.00 mg/dL 0.70-1.30 Normal (applies to non -numeric results) [facility] Sodium Level 136 meq/L 136-145 Normal (applies to non-numeric res ults) [facility] ([facility] Potassium Serum 3.8 meq/L 3.5-5.1 Normal (applies to non-numeric results) [facility] ([facility] Chloride Level 101 meq/L 98-107 Normal (applies to non-numeric r esults) [facility] Anion Gap 7 meq/L 8-16 Below low normal [facility] ( [facility] Carbon Dioxide Level 28 meq/L 21-32 Normal (applies to non-num santa results) [facility] ([facility] Calcium Level 10.2 mg/dL 8.8-10.2 Normal (applies to non-numeric re sults) [facility] ([facility] ID Date Data Source [id number] 05/01/2021 10:39:00 AM EST [facility] ([facility] Name Value Range Interpretation Code Description Data Ximena rce(s) Supporting Document(s) Ast/Sgot 23 U/L 7-37 Normal (applies to non-numeric resul ts) [facility] ([facility] Alt/SGPT 33 U/L 12-78 Normal (applies to non-numeric resul ts) [facility] ([facility] Alkaline Phosphatase 79 U/L 45-117 Normal (applies to non-num santa results) [facility] ([facility] Bilirubin,Direct Laboratory test result 0.0-0.2 Normal ( applies to non-numeric results) [facility] ([facility] Bilirubin,Total 0.4 mg/dL 0.2-1.0 Normal (applies to non-numeric results) [facility] ([facility] Total Protein 7.7 GM/DL 6.4-8.2 Normal (applies to non-numeric re sults) [facility] ([facility] Albumin/Globulin Ratio 0.9 Normal (applies to non-n umeric results) [facility] ([facility] Albumin 3.6 GM/DL 3.2-5.2 Normal (applies to non-numeric resul ts) [facility] ([facility] ID Date Data Source [id number] 02/24/2021 02:42:00 PM EDT [facility] ([facility] Name Value Range Interpretation Code Description Data Ximena rce(s) Supporting Document(s) Thyrotropin [Units/volume] in Serum or Plasma 2.449 ulU/mL 0.60-4.8 [facility] ([facility] ID Date Data Source [id number] 02/21/2021 11:28:00 AM EDT [facility] ([facility] Name Value Range Interpretation Code Description Data Ximena rce(s) Supporting Document(s) IgG [Mass/volume] in Serum or Plasma 955 mg/dL [id number] [facility] ([facility]) ID Date Data Source [id number] 02/21/2021 11:28:00 AM EDT [facility] ([facility] Name Value Range Interpretation Code Description Data Ximena rce(s) Supporting Document(s) Laboratory test finding (navigational concept) Laboratory test result [facility] ([facility] COMPREHENSIVE METABOLIC PANEL Laboratory test finding (navigational [...] [facility]) ID Date Data Source [id number] 02/21/2021 11:28:00 AM EDT [facility] ([facility] [...] [facility]) ID Date Data Source [id number] 02/22/2021 07:21:00 AM EDT [facility] Name Value Range Interpretation Code Description Data Ximena rce(s) Supporting Document(s) IgG [Mass/volume] in Serum or Plasma 955 mg/dL [phone] [facility] ID Date Data Source [id number] 02/21/2021 12:08:00 PM EDT [facility] Name Value Range Interpretation Code Description Data Ximena rce(s) Supporting Document(s) COMPREHENSIVE METABOLIC PANEL [facility] COMPREHENSIVE METABOLIC PANEL Sodium [Moles/volume] in Serum or Plasma 136 mEq/L 134 - 153 [facility] Potassium [Moles/volume] in Serum or Plasma 4.3 mEq/L 3.6 - 5.0 [facility] Chloride [Moles/volume] in Serum or Plasma 99 mEq/L 98 - 107 [facility] Carbon dioxide, total [Moles/volume] in Serum or Plasma 23 MEQ/L 22 - 30 [facility] Glucose [Mass/volume] in Serum or Plasma 126 MG/DL 70 - 99 H [facility] BUN 22 MG/DL 7 - [address] [facility] Creatinine [Mass/volume] in Serum or Plasma 0.8 MG/DL 0.7 - 1.5 [facility] BUN/CREAT 28 8 - [address] [facility] Protein [Mass/volume] in Serum or Plasma 7.0 G/DL 6.3 - 8.2 [facility] Albumin [Mass/volume] in Serum or Plasma 4.7 G/DL 3.9 - 5.0 [facility] Globulin [Mass/volume] in Serum by calculation 2.3 GM/DL 2.4 - 3.2 L [facility] A/G RATIO 2.0 0.8 - 2.0 [facility] Calcium [Mass/volume] in Serum or Plasma 9.9 MG/DL 8.4 - 10.2 [facility] Bilirubin.total [Mass/volume] in Serum or Plasma <0.7 MG/DL 0.2 - 1.3 [facility] Alkaline phosphatase [Enzymatic activity/volume] in Serum or Plasma 71 U/L 38 - 126 [facility] Aspartate aminotransferase [Enzymatic activity/volume] in Serum or Plasma 26 U/L 5 - 40 [facility] Alanine aminotransferase [Enzymatic activity/volume] in Seru m or Plasma 22 U/L 7 - 56 [facility] Anion gap 3 in Serum or Plasma 14.0 mmol/L 8.0 - 16.0 [facility] AGE 70 yrs [facility] al NON-AA GFR >60 mL/min [facility] AFR AMER GFR >60 mL/min [facility] Ho spital Male GFR In terprentation 20-49 [...] >32 mL/min Normal ID Date Data Source [id number] 02/21/2021 11:36:00 AM EDT [facility] Name Value Range Interpretation Code Description Data Ximena rce(s) Supporting Document(s) CBC W/AUTOMATED DIFF [facility] COMPLETE BLOOD COUNT Leukocytes [#/volume] in Blood by Automated count 17.4 10^3/uL 4.2 - 11.0 H [facility] Erythrocytes [#/volume] in Blood by Automated count 4.26 10^6/uL 4. 50 - 6.30 L [facility] Hemoglobin [Mass/volume] in Blood 13.7 g/dL 14.0 - 16.0 L [facility] Hematocrit [Volume Fraction] of Blood by Automated count 41.1 % 4 1.0 - 51.0 [facility] Erythrocyte mean corpuscular volume [Entitic volume] by Auto mated count 96.5 fL 80.0 - 94.0 H [facility] Erythrocyte mean corpuscular hemoglobin [Entitic mass] by Automated count 32.2 pg 27.0 - 34.0 [facility] Erythrocyte mean corpuscular hemoglobin concentration [Mass/volume] by Automated count 33.3 g/dL 31.0 - 36.0 [facility] Erythrocyte distribution width [Ratio] by Automated count 13.4 % 11.5 - 14.8 [facility] Platelets [#/volume] in Blood by Automated count 247 10^3/uL 150 - 45 0 [facility] Platelet mean volume [Entitic volume] in Blood by Automated count 8.6 fL 7.4 - 10.4 [facility] Neutrophils/100 leukocytes in Blood by Automated count 89.8 % 37. 0 - 80.0 H [facility] Lymphocytes/100 leukocytes in Blood by Manual count 5.5 % 25.0 - 40.0 L [facility] Monocytes/100 leukocytes in Blood by Automated count 2.9 % 3.0 - 8.0 L [facility] Eosinophils/100 leukocytes in Blood by Automated count 0.4 % 0.0 - 7.0 [facility] Basophils/100 leukocytes in Blood by Automated count 0.4 % 0.0 - 2.0 [facility] %IG 1.0 % 0.0 - 0.0 H [facility] al %NRBC 0.0 % 0.0 - 0.0 [facility] al Neutrophils [#/volume] in Blood by Automated count 15.59 10^3/uL 2. 00 - 6.90 H [facility] Lymphocytes [#/volume] in Blood by Automated count 0.96 10^3/uL 0.60 - 3.40 [facility] Monocytes [#/volume] in Blood by Automated count 0.51 10^3/uL 0.00 - 0.90 [facility] Eosinophils [#/volume] in Blood by Automated count 0.07 10^3/uL 0.00 - 0.70 [facility] Basophils [#/volume] in Blood by Automated count 0.07 10^3/uL 0.00 - 0.20 [facility] #IG 0.18 10^3/uL 0.00 - 0.10 H [facility]ital #NRBC 0.00 10^3/uL 0.00 - 0.00 [facility] ospital MANUAL DIFF NOT INDICATED [facility] RBC MORPH NOT INDICATED [facility] Ho spital ID Date Data Source [id number] 02/21/2021 11:28:00 AM EDT [facility] ([facility] Name Value Range Interpretation Code Description Data Ximena rce(s) Supporting Document(s) Comprehensive [facility]abo Laboratory test result MED[facility] ([facility] COMPREHENSIVE METABOLIC PANEL Sodium 136 meq/L 134-153 [facility] ([facility] Potassium 4.3 meq/L 3.6-5.0 [facility] ([facility] Chloride 99 meq/L 98-107 [facility] Co2 23 meq/L 22-30 [facility] ([facility] Glucose 126 mg/dL 70-99 Above high normal [facility] ([facility] BUN 22 mg/dL 7-21 Above high normal [facility] ([facility] Creatinine 0.8 mg/dL 0.7-1.5 [facility] ([facility] BUN/Creat 28 8-27 Above high normal MED[facility] ([facility] Albumin 4.7 g/dL 3.9-5.0 [facility] ([facility] Total Protein 7.0 g/dL 6.3-8.2 [facility] ([facility] Calcium 9.9 mg/dL 8.4-10.2 [facility] ([facility] Globulin 2.3 GM/DL 2.4-3.2 Below low normal [facility] ( [facility] A/G Ratio 2.0 0.8-2.0 [facility] ([facility] Alkaline Phos 71 U/L 38-126 [facility] ([facility] Total Bili Laboratory test result 0.2-1.3 ME DENT ([facility] Sgot/Ast 26 U/L 5-40 [facility] ([facility] Anion Gap 14.0 mmol/L 8.0-16.0 [facility] ([facility] SGPT/Alt 22 U/L 7-56 [facility] ([facility] Afr Amer GFR Laboratory test result [facility] ([facility] Male GFR Interprentation 20-49 yrs >60 [...] >32 mL/min Normal Age 70 yrs MED[facility] ([facility] Non-Aa GFR Laboratory test result ME DENT ([facility] ID Date Data Source [id number] 02/21/2021 11:28:00 AM EDT MED[facility] ([facility] Name Value Range Interpretation Code Description Data Ximena rce(s) Supporting Document(s) IgG [Mass/volume] in Serum or Plasma 955 mg/dL [id number] [facility] ([facility] ID Date Data Source [id number] 02/21/2021 11:28:00 AM EDT MED[facility] ([facility] Name Value Range Interpretation Code Description Data Ximena rce(s) Supporting Document(s) CBC W/Automated Diff Laboratory test result [facility] ([facility] COMPLETE BLOOD COUNT RBC 4.26 10^6/uL 4.50-6.30 Below low normal [facility] ([facility] WBC 17.4 10^3/uL 4.2-11.0 Above high normal MEDEN T ([facility] Hematocrit 41.1 % 41.0-51.0 [facility] ([facility] Hemoglobin 13.7 g/dL 14.0-16.0 Below low normal [facility] ( [facility] MCV 96.5 fL 80.0-94.0 Above high normal [facility] ([facility] MCH 32.2 pg 27.0-34.0 [facility] MCHC 33.3 g/dL 31.0-36.0 [facility] RDW 13.4 % 11.5-14.8 [facility] ([facility] Platelets 247 10^3/uL 150-450 [facility] ([facility] Neut 89.8 % 37.0-80.0 Above high normal [facility] ([facility] Lymph 5.5 % 25.0-40.0 Below low normal [facility] ( [facility] MPV 8.6 fL 7.4-10.4 [facility] ([facility] Eos 0.4 % 0.0-7.0 [facility] ([facility] Victoria 2.9 % 3.0-8.0 Below low normal [facility] Baso 0.4 % 0.0-2.0 [facility] %Ig 1.0 % 0.0-0.0 Above high normal [facility] %NRBC 0.0 % 0.0-0.0 [facility] #Neut 15.59 10^3/uL 2.00-6.90 Above high normal MEDE NT ([facility] #Lymph 0.96 10^3/uL 0.60-3.40 [facility] ([facility] #Victoria 0.51 10^3/uL 0.00-0.90 [facility] ([facility] #Eos 0.07 10^3/uL 0.00-0.70 [facility] ([facility] #Baso 0.07 10^3/uL 0.00-0.20 [facility] ([facility] #Ig 0.18 10^3/uL 0.00-0.10 Above high normal MEDEN T ([facility] #NRBC 0.00 10^3/uL 0.00-0.00 [facility] ([facility] Manual Diff Laboratory test result M EDBARBARA ([facility] RBC Morph Laboratory test result ME CARLOS ALBERTO ([facility] ID Date Data Source [id number] 02/19/2021 10:19:05 AM EDT [facility] Name Value Range Interpretation Code Description Data Ximena rce(s) Supporting Document(s) &PDF [facility] RBXWPg5rZyCFCoYj79/KJRgjJFSwq8HrCBgkJEp8KYrzRWIiG7MksZqaOFCCMfTeTgPTSB0BPEXNGGiI hdG [file] [facility]+Dg445Tvp+06gl5sm3lTruzXxMQBZ/gXdXw/EXU [file] ICAgICAgICAgICAgICAgICAgICAgICAgICAgICAgIC AgICAgICAgICAgICAgICAgICAgICAgICANCiAgICAgICAgICAgICAgICAgICAgICAgICAgICAgICAgIC AgICAgICAgICAgICAgICAgICAgICAgICAgICAgICAgICAgICAgICAgICAgICAgICAgICAgICAgICAgIC AgICAgICANCiAgICAgICAgICAgICAgICAgICAgICAg ICAgICAgICAgICAgICAgICAgICAgICAgICAgICAgICAgICAgICAgICAgICAgICAgICAgICAgICAgICAg ICAgICAgICAgICAgICAgICANCiAgICAgICAgICAgICAgICAgICAgICAgICAgICAgICAgICAgICAgICAg ICAgICAgICAgICAgICAgICAgICAgICAgICAgICAgIC AgICAgICAgICAgICAgICAgICAgICAgICAgICANCiAgICAgICAgICAgICAgICAgICAgICAgICAgICAgIC AgICAgICAgICAgICAgICAgICAgICAgICAgICAgICAgICAgICAgICAgICAgICAgICAgICAgICAgICAgIC AgICAgICAgICANCiAgICAgICAgICAgICAgICAgICAg ICAgICAgICAgICAgICAgICAgICAgICAgICAgICAgICAgICAgICAgICAgICAgICAgICAgICAgICAgICAg ICAgICAgICAgICAgICAgICAgICANCiAgICAgICAgICAgICAgICAgICAgICAgICAgICAgICAgICAgICAg ICAgICAgICAgICAgICAgICAgICAgICAgICAgICAgIC AgICAgICAgICAgICAgICAgICAgICAgICAgICAgICANCiAgICAgICAgICAgICAgICAgICAgICAgICAgIC AgICAgICAgICAgICAgICAgICAgICAgICAgICAgICAgICAgICAgICAgICAgICAgICAgICAgICAgICAgIC AgICAgICAgICAgICANCiAgICAgICAgICAgICAgICAg ICAgICAgICAgICAgICAgICAgICAgICAgICAgICAgICAgICAgICAgICAgICAgICAgICAgICAgICAgICAg ICAgICAgICAgICAgICAgICAgICAgICANCiAgICAgICAgICAgICAgICAgICAgICAgICAgICAgICAgICAg ICAgICAgICAgICAgICAgICAgICAgICAgICAgICAgIC AgICAgICAgICAgICAgICAgICAgICAgICAgICAgICAgICANCjw/cEEfE4vzeAIoroL3Y6qsDs0CFc0MLQ 2nb4PxQWQtDBfxrzDtSxtPWjBaPJMqOtlLJcn6ITdiOO2TxAMgO4RhH7UfJOwlTG9RCPEmIXMibUNoQB AaOJWwPdN5MNQvOKjxNS1CbGMcXTeiROCoVZPzTbWa TZXmUIFlDVZhGQ4RIGLyT596mrIgWn3FNw9OQxQvHE0huv5LPOLsUAJzTfdMFdb6GRenSW2XgHZaS5Rb pRIkp6lMGeOnE0HZBWNjEGDeCv6YXEWaFyRwLPWiMDarHL5jVIViGHQWuQqaekH5QY3ERC2cyvNhTY2U ZeEyTc4xMf4ZOeFaN6MpH1KnPJSgWAWGUWglTY9QIS PgVQJ9YPQ4MGBqPGOEUbPgT41nAS4ZE5Fwq77yHoQ6JFVeBhMeRPwzPS37tXbnskPrfXSixXmtGS5ZQk 4+TXlxnyJmFcjGBnuuDYCEBiCyKTUOXtGmZQLrXNUsJGXyHzL9NqWmGd5IREEcUCQpBGVjVaAiCVOtLW RwPIxvOYInEKK0UZj7JVKqRUCmAK1EZrTcWIGuIqHg BcRtYZEvZDSrks3AYMKwKKYcIRL2LBAdGDSyNEVwWQrgCEKlKKJeBCb1RZYgDDEvFR5GScWeYLDoQYK7 EBYpMJLtTLSrdw9TEIDeSNXtFFi8WPIyWJVwCHAoMUxcKRIaRAO2BFT7ZMPqMQMnGX2WWkMeQKEbYNhy NzucIUCdYOUbtt5JMVFmPTGoCjOyMXYoCDUbKGKdMY xxGSVzCHP3XyuiPAToKHUeBB3ZBqHuIXJgJTy3TOybFDAuTGHmsl1MYZJpXPWhOHI9FEEzBHSvMSYpAC klMGEvYSZ7OoYnQGGvZGQaEH0VLlOoNKZpWFe8IaWsNXRlDCUeol9RWKQvAZShAAWdBSWdXJGrYVAgVH ffORUkOQP6ZFb6IPIeWVBbFT3DWrEoQFHhVUMcJSJe IFGcAKQqkk7WQRGoGHTaMNQlJSWbSNOuHQSvRAudADYwDZO1NtA1JWMnPRUuRB1TUmVrMUKdCHC0GRGg BMSkNLBmma3GHQTtCGZaGvysGBUfARDuMWNrJYrhPEFrFFI4HDQ9NAYbJACvZL7MLzApWZIlGHcxYAHh WZEtLVKakj0QJGToQHQeEzQ7GKAgWQVmKRBxDJtjDA EjASW2EYB4QYWoEGSlJT9XUgMbROGxGxg3IeWwQCTtCQThbp4UPKHyHGNuOMZ6CmDsANNjGEDqCTlvZM NfQIKsVIYnDDJfSSRsJQ5GJgXfDALeWeMiJmBbRAJsYWGrxs4QUDJsUVFoEIQyWiFmQILxDOWlZHmpVJ JnZMJrNUGcWKMsSNPhOX2RJaUmXUIcDKA6TKBxGWNt UTZfir2XVOKcUGY8CwZaYJHhDLLqWMUuEAbyRXEnVXCdAQDlWRIlYHPkZT9ITdQiTUQpIJFsBnWqHFAn FTMryk4CAYDoROG0GJIeCSZwONFfJXZhJJnbFAZfZGWdMFmsVKHvYKVgGN8YVaWdNEJvCjObHvjcIEJw XLCgra7UGIKgIMY2MON4OnGvZBXrCIErAJktHIHtRS Y1UNjoTBPcZZWxHS7KXpAxVDZgBlUzOrBeGVVzEWDfyv4PyUUigJvrdc0HODyGSe4EyQrdXHLfWIlmSw 9ayPO4UjHcCKHEXk9VkgNpBKZuPZDSROhwYXYaFWE6FbFwZNLeKWW6FKN0NlJoLEIcIvG9VOC8JsuqIX fpNmX8JAfwAZXbKuOoLTZoYnw5UqE3EWU0NFK7NZG6 OGEwODE+XI0zSLh+In3Hq3XcghJ1nyDmXTe0VDLtUW0IYZVZD6SVYh== ID Date Data Source URINE CULTURE 02/18/2021 12:00:00 AM EDT W1 ([facility]) Name Value Range Interpretation Code Description Data Ximena rce(s) Supporting Document(s) URINE CULTURE eCW1 ([facility]) ID Date Data Source UA URINALYSIS 02/18/2021 12:00:00 AM EDT eCW1 ([facility]) Name Value Range Interpretation Code Description Data Ximena rce(s) Supporting Document(s) UA URINALYSIS eCW1 ([facility]) ID Date Data Source [id number] 01/29/2021 04:10:05 PM EDT [facility] NT INFORMATIONPatient MRN Name Date of Age Gend*PT [id number] Minoo Velasquez III 1950 70 years M ---PT Location Admission Date/Time Visit ID Attending Provider --- --- --- --- EPI ID CSN Admitting Provider [id number] ---Cardiology Office NoteName: Minoo Velasquez III Gender: [...] arterial disease status post left femoral endarterectomy 15363. Iron deficiency anemia9. Vitamin B12 rqjloqxnqn10. JERI 11/27/2020 LVEF 65%. Mild LVH. Severe bioprosthetic stenosis of theaortic valve. Patent foramen ovale not present. No ASD.11. Cardiac catheterization 11/27/2020 previously placed stents are patent.Focal moderate lesions in mid LAD, mid circumflex, and mid right coronary arterywhich are not sufficiently severe to merit intervention. Referred to [facility].12. Status post TAVR with #29 [address]urch Kun 3 valve on 2-20-93Gwlciva presents today for follow-up. He is accompanied [...] 11/26/2020 Added automatically from request for surgery [id number] Cardiac murmur CHF (congestive heart failure) COPD [...] 11/26/2020 Added automatically from request for surgery [id number] Stroke seen on imaging per patient Systolic heart failure 11/26/2020 Added automatically from request for surgery [id number] Surgical History:Procedure Laterality Date ANGIOPLASTY AORTIC VALVE [...] HistoryProblem Relation Age of Onset Myocardial Infarction (VA) Father Healthy, No Significant History Mother Malig [...] Social Gatherings with Friends and Family: Attends [employer] Services: Active Member of Clubs or Organizations: [...] pain, Disp: 25tablet, Rfl: 1 nystatin (MYCOSTATIN) [id number] UNIT/ML suspension, Take 200,000 Units by mouth4 [...] parts of this document, were dictated using [employer]. A reasonable attempt at proofreading has been made to minimize errors.Please call with any questions or corrections. Name Value Range Interpretation Code Description Data Ximena rce(s) Supporting Document(s) ID Date Data Source [id number] 01/29/2021 03:56:54 PM EDT [facility] Name Value Range Interpretation Code Description Data Ximena rce(s) Supporting Document(s) &PDF [facility] RAEFRv2fQwEEYlOp29/RIEzuSAGup7DaPZcpHYk6IIpaAPLzM5AofHavOXEPSzZyJpJYJR7LKVTPUFxT hdG [file] ICAgICAgICAgICAgICAgICAgICAgICAgICAgICAgIC AgICAgICAgICAgICAgICAgICAgICAgICAgICAgICAgICAgICAgICAgICAgICANCiAgICAgICAgICAgIC AgICAgICAgICAgICAgICAgICAgICAgICAgICAgICAgICAgICAgICAgICAgICAgICAgICAgICAgICAgIC AgICAgICAgICAgICAgICAgICAgICAgICAgICANCiAg ICAgICAgICAgICAgICAgICAgICAgICAgICAgICAgICAgICAgICAgICAgICAgICAgICAgICAgICAgICAg ICAgICAgICAgICAgICAgICAgICAgICAgICAgICAgICAgICAgICANCiAgICAgICAgICAgICAgICAgICAg ICAgICAgICAgICAgICAgICAgICAgICAgICAgICAgIC AgICAgICAgICAgICAgICAgICAgICAgICAgICAgICAgICAgICAgICAgICAgICAgICANCiAgICAgICAgIC AgICAgICAgICAgICAgICAgICAgICAgICAgICAgICAgICAgICAgICAgICAgICAgICAgICAgICAgICAgIC AgICAgICAgICAgICAgICAgICAgICAgICAgICAgICAN CiAgICAgICAgICAgICAgICAgICAgICAgICAgICAgICAgICAgICAgICAgICAgICAgICAgICAgICAgICAg ICAgICAgICAgICAgICAgICAgICAgICAgICAgICAgICAgICAgICAgICANCiAgICAgICAgICAgICAgICAg ICAgICAgICAgICAgICAgICAgICAgICAgICAgICAgIC AgICAgICAgICAgICAgICAgICAgICAgICAgICAgICAgICAgICAgICAgICAgICAgICAgICANCiAgICAgIC AgICAgICAgICAgICAgICAgICAgICAgICAgICAgICAgICAgICAgICAgICAgICAgICAgICAgICAgICAgIC AgICAgICAgICAgICAgICAgICAgICAgICAgICAgICAg ICANCiAgICAgICAgICAgICAgICAgICAgICAgICAgICAgICAgICAgICAgICAgICAgICAgICAgICAgICAg ICAgICAgICAgICAgICAgICAgICAgICAgICAgICAgICAgICAgICAgICAgICANCiAgICAgICAgICAgICAg ICAgICAgICAgICAgICAgICAgICAgICAgICAgICAgIC AgICAgICAgICAgICAgICAgICAgICAgICAgICAgICAgICAgICAgICAgICAgICAgICAgICAgICANCjw/ NpX8lfyQHafbE9U1ecYx0KEy9KNM6tj0NlRWHkCQowtwGnIyzOWsGtNSUtZftYCkq0AFxhQY6AuEQoA9 KxL7HvDGxrNS7TZTRbKCOnqGWsQSFyGMXcIrV6KYMl XVzdBB3JxXWfCZcpGRWeYBWbRsNrPZNiHLTtWRVbRVLdOGPLKJ1VBlDdM6IkaX34OJMUTz1+DQplbmRv VouOGuM6NTBjm4KuVKg7BJ3TXZXhBBgrVI1SYUMthG1fFVwvBS3XYxAhEzWwRWQODpYgC44psZHsWYc8 W1YaGrRxFAMrMcpaZPVrWDezFxXvFRRaEjHzUUxxVP 4+ID4+KEgtXP7ARUqemiUdTCXjAp4YJJTcINY9AAZxhLRzElajCBKFYFyaCJ3WsVQlNYF8tW9nQCykXU GuHDPkZ0bMHzLblMnxPE21gJqpleWqfOZsKSc+Yx8FFQ4ne7VhFMt6zlYwSVnkDXMlSBvlZONyKLZyPM WiFGU3NNX7XCCKYmPeXAQwHQRgTYypIDXgOEKegj6Q PQRzDXB4Nwr6RGMrGSSzTDQuOHdaCXTqUDW8BNEiKTAkTPUkDS1JTlJgEKCxPPRdKGLbSWZnJFLzhb4U NHNuRGMtEnUiJYGmCQYxJYOiFActVFTiYWCpVURnSHFuRCOgWJ3ARjYhNJEfAFNvFaTvPJFvVULcvx3Y QJRqLYKeIBMjNaYdGMBoBGZxAVaiFENiVJB8SWO7DF RpJXReKS7YUsFwEKBvSBypULSkYHSjHYGrbv4NWTRfWTJzAZKzSEDdDJSpKKWwQEigNXSoJEU1IMW2RR LnUBRiWE2OFtVdQKAzWER9XcJaKTEdLVNzgv3MWRHqFHTnUKW2GtJcICQiNWDgKIlkIOLyFRBiVNB6OX DuOMGyIA0NWcJsDOCmFFS7LRKvRIWsAWYpqa9SQVCo LNDeUaVzDoKzSGDrJTOcFSjpLBFoQMGsTcD2EEZuHCYzRG0FMuXtSDHwGDPzNpDiLVGfQUIadb5JLJGt NJSmDsJ6HTGqPCPgDYEmAZztFZZbMGJqFUU6WMSaSNSpTD7PXlKhGKOiWGG8AwdeQOGbJUMphs3NNFIz DUEbYed6OSLzPBPnWWEmNZtkUBMgPSL5BKI0QTPvHI UhNW1GRuVkWEVfRYm3QdyfYKZiNOAgwc6YXYNwLBDoRlX5PwGyRRYgREGaCKbuWPLuNLM3AGAuSLXgDF ToRI0DVcDyYEPqNvRkKTzcSYIaXLSjug6OMEHcMWMyAlU6HOIpYUYkKSDuTYirWTIlKOR0GqG6VJIoYP EkCX6HFuEmOFLrUgayEiOmXSTyGMDlza2MJSFqMKU3 AGE9FFLbFZKsRCYxCJxzTXEjKBJ9ZXKjHQCqFHZfIY8WWxQnYBRrQGTtVhUjDAOeBJTcxm6UGIDvYVO8 ZXe8FfIfBQWbKWMlNFfhBFCtRWDsJQg2OFAtTROhCC0UGrIeWOSkGhU9ZbInFVMaCMQunn5WWRNdYRQ7 GGY5SSUvMEFkLHHjLRpiSVCqOCZ6CIE1FXUmHTJlKR 7WCdFzLMzwSEPWZdw2VKdaA0t0MAV7CV9ZU6Xvf3CsUpeuJJSKJVqeEW6qetRxYNAiHh3GH3qLSeplCw IpGuYfFRj7TJKiAjMaSCU6TfnxYaUeFvK6FUg2Oi7mTWVfDhXkJfH9PZf7LEJhPTY0NQnbB9DeZLE4Aw J3ExuqJyBmHO0ZPn1YEjI1BFB8cYHcRq3OVkXeTVPBJkWmZQ0HRZr= ID Date Data Source [id number] 01/07/2021 11:45:00 AM EDT MEDENT ([facility] Name Value Range Interpretation Code Description Data Ximena rce(s) Supporting Document(s) Chol 166 mg/dL 0-200 [facility] CHRONIC KIDNEY DISEASE [...] YEARS EXCLUSIVE. Trig 175 mg/dL 35-200 MED[facility] ([facility] CHRONIC KIDNEY [...] YEARS EXCLUSIVE. Cho/HDL Ratio 2.5 Calc MEDENT ([facility] CHRONIC KIDNEY DISEASE STAGING [...] 2-19 YEARS EXCLUSIVE. ID Date Data Source [id number] 01/07/2021 11:45:00 AM EDT [facility] ([facility] Name Value Range Interpretation Code Description Data Ximena rce(s) Supporting Document(s) Glu 69 mg/dL 70-110 Below low normal [facility] ( [facility] CHRONIC KIDNEY DISEASE [...] mg/dL 0.7-1.2 Below low normal MED[facility] ( [facility] CHRONIC KIDNEY DISEASE [...] mmol/L 136-145 Below low normal MED[facility] ( [facility] CHRONIC KIDNEY DISEASE [...] YEARS EXCLUSIVE. BUN/Creatinine Ratio 23.4 Calc MEDENT ([facility] CHRONIC KIDNEY DISEASE STAGING [...] EXCLUSIVE. K 4.4 mmol/L 3.5-5.1 MED[facility] ([facility] CHRONIC KIDNEY DISEASE STAGING [...] YEARS EXCLUSIVE. CA 10.2 mg/dL 8.6-10.2 MED[facility] ([facility] CHRONIC KIDNEY DISEASE STAGING PER [...] AGED 2-19 YEARS EXCLUSIVE. A/G Ratio 1.6 [facility] CHRONIC KIDNEY DISEASE STAGING PER [...] YEARS EXCLUSIVE. Alp 76.4 U/L 40-129 MED[facility] ([facility] CHRONIC KIDNEY [...] YEARS EXCLUSIVE. Tbili 0.20 mg/dL 0.0-1.2 [facility] ([facility] CHRONIC KIDNEY DISEASE STAGING PER [...] INDIVIDUALA AGED 2-19 YEARS EXCLUSIVE. eGFR Non-Afr. Serbian 103 # [facility] ([facility] [...] 2-19 YEARS EXCLUSIVE. ID Date Data Source [id number] 01/07/2021 11:45:00 AM EDT MED[facility] ([facility] Name Value Range Interpretation Code Description Data Ximena rce(s) Supporting Document(s) Thyrotropin [Units/volume] in Serum or Plasma 13.532 ulU/mL 0. 60-4.8 Above high normal [facility] ([facility] ) ID Date Data Source [id number] 01/07/2021 11:44:00 AM EDT [facility] ([facility] Name Value Range Interpretation Code Description Data Ximena rce(s) Supporting Document(s) Hemoglobin A1c/Hemoglobin.total in Blood 6.3 % 4.50-6.20 Above high normal MEDENT ([facility] ID Date Data Source [id number] 12/31/2020 06:03:22 PM EDT [facility] NT INFORMATIONPatient MRN Name Date of Age Gend*PT [id number] Minoo Velasquez III 1950 70 years M IPPT Location Admission Date/Time Visit ID Attending [id number] 12/25/20 1006 --- --- EPI ID CSN Admitting Provider [id number] Shanique Ramírez MD([id number])HISTORY AND PHYSICALName: Minoo Velasquez III Gender: maleDate of : 1950 Age: 70 yearsDate/Time of Admit: 12/25/2020 10:06 AM Code Status: Full CodePrimary Care Provider / Referring Physician: iSobhan DANIELSformant:Current HistoryChief Complaint:HPI:70 years old white male [...] 11/26/2020 Added automatically from request for surgery [id number] Cardiac murmur CHF (congestive heart failure) COPD [...] 11/26/2020 Added automatically from request for surgery [id number] Stroke seen on imaging per patient Systolic heart failure 11/26/2020 Added automatically from request for surgery [id number] Surgical History:Procedure Laterality Date ANGIOPLASTY AORTIC VALVE [...] HistoryProblem Relation Age of Onset Myocardial Infarction (VA) Father Healthy, No Significant History Mother Malig [...] Social Gatherings with Friends and Family: Attends [employer] Services: Active Member of Clubs or Organizations: [...] Weight: 64.6 kg (142 lb 6.4 oz)Physical TcjuWGAk4CfnvzxskblkDxsqzej from last 7 daysLab Units 474144YWFETCILDY mg/dL 0.73*Results from last 7 daysLab Units [id number] % 34.3*Assessment & PlanPlan for TAVR. Procedure and risks explained and understood.Shanique Ramírez MD Name Value Range Interpretation Code Description Data Ximena rce(s) Supporting Document(s) ID Date Data Source [id number] 12/31/2020 06:00:51 PM EDT [facility] NT INFORMATIONPatient MRN Name Date of Age Gend*PT [id number] Minoo Velasquez III 1950 70 years M IPPT Location Admission Date/Time Visit ID Attending [id number] 12/25/20 1006 --- --- EPI ID CSN Admitting Provider [id number] Shanique Ramírez MD([id number]) Attestation signed by Shanique Ramírez MD at 12/31/2020 6:00 PMI saw and evaluated the patient and reviewed Ms. Desouza's note. I agree withthe history, physical and medical decision making. Safe for d/c home. Ipersonally reviewed the echo which shows the TAVR well seated.Signature: Shanique Ramírez MDDate: December 31, 2020Time: 6:00 PM Physician Discharge Summary Minoo Velasquez IIIMRN: [id number] date: 12/25/2020ttending Physician: Shanique Ramírez MDAdmission Diagnosis: Aortic valve stenosisSecondary Diagnoses: Principal Problem: Aortic valve stenosis Hypertension Diabetes mellitus COPD Sleep apnea Peripheral vascular disease Iron deficiency anemia Chronic bronchiectasis Coronary artery diseasePrinciple Procedures:Transfemoral vvghv-cy-hupjh TAVR with a #29 mm Burch Kun [...] aortic stenosis.Hospital Course & Complications:The patient underwent gkblg-nf-ioscq TAVR on 12/26/20 with successful fracturingof his [...] 11/26/2020 Added automatically from request for surgery [id number] Cardiac murmur CHF (congestive heart failure) COPD [...] 11/26/2020 Added automatically from request for surgery [id number] Stroke seen on imaging per patient Systolic heart failure 11/26/2020 Added automatically from request for surgery [id number] Recent Labs:BMP:Lab ResultsComponent Value Date NA 138 [...] VITAMIN C Take 1,000 mg by mouth wtracF-Sttnvam-R Tabs Take 1 tablet by mouth dailybudesonide [...] 5 (five) minutes as neededfor chest painnystatin [id number] UNIT/ML suspensionCommonly known as: MYCOSTATIN Take 200,000 [...] Get Your MedicationsThese medications were sent to [facility] [place], [place] - [address] [place] [address] clopidogrel 75 MG tabletDischarge Exam:Vitals: Temp: [97.2 [...] rce(s) Supporting Document(s) ID Date Data Source [id number] 12/28/2020 07:12:47 PM EDT [facility] NT INFORMATIONPatient MRN Name Date of Age Gend*PT [id number] Minoo Velasquez III 1950 70 years M IPPT Location Admission Date/Time Visit ID Attending [id number] 12/25/20 1006 --- --- EPI ID CSN Admitting Pr ovider [id number] Shanique Ramírez MD([id number]) [place] [address] OPERATIVE REPORT OPNAME: MINOO VELASQUEZ III#: [id number] #: [id number] ADMISSION DATE: 12/25/2020OB: 1950 SEX: M PT TYPE: I CRDACCT #: [id number] CARE PHYSICIAN: SHANIQUE RUIZ OF OPERATION: 12/25/2020REOPERATIVE DIAGNOSES:1. Progressive symptomatic aortic valve stenosis.2. Aortic valve regurgitation.3. Chronic obstructive pulmonary disease.4. Coronary artery disease.5. Diabetes mellitus.6. Hypertension.7. Sleep apnea.POSTOPERATIVE DIAGNOSES:1. Progressive symptomatic aortic valve stenosis.2. Aortic valve regurgitation.3. Chronic obstructive pulmonary disease.4. Coronary artery disease.5. Diabetes mellitus.6. Hypertension.7. Sleep apnea.ANESTHESIA:General anesthesia.ATTENDING HEAD PACKAGER:NATHEN Phoenix CARDIAC SURGEON:NELSY BellaROCEDURES:Transcatheter aortic valve replacement with #26 mm Kun 3 made by [employer], the serial number for the valve is [id number].DESCRIPTION OF PROCEDURE:After the patient was brought to [...] was transferred toRecovery Room.JULIA Bella/NOEMY Job #: [id number] DOC #: [id number] Name Value Range Interpretation Code Description Data Ximena rce(s) Supporting Document(s) ID Date Data Source [id number] 12/26/2020 12:02:37 PM EDT [facility] Name Value Range Interpretation Code Description Data Ximena rce(s) Supporting Document(s) POC NOVA GLU 174 mg/dL (70-99) H [facility] ID Date Data Source [id number] 12/26/2020 10:02:02 AM EDT [facility] Name Value Range Interpretation Code Description Data Ximena rce(s) Supporting Document(s) POC NOVA GLU 92 mg/dL (70-99) [facility] ID Date Data Source [id number] 12/26/2020 10:49:34 AM EDT [facility] Name Value Range Interpretation Code Description Data Ximena rce(s) Supporting Document(s) SODIUM 138 mmol/L (136-145) [facility] POTASSIUM 4.0 mmol/L (3.6-5.2) [facility] CHLORIDE 102 mmol/L (100-108) [facility] CO2 29 mmol/L (22-31) [facility] ANION GAP 7 mmol/L (7-16) [facility] UREA NITROGEN 19 mg/dL (7-24) [facility] CREATININE 0.73 mg/dL (0.80-1.30) L [facility] BUN/CREAT RATIO 26.0 RATIO (10.0-20.0) [facility] GLUCOSE 63 mg/dL (70-99) L [facility] CALCIUM 7.7 mg/dL (8.4-10.2) L [facility] GFR >60 ml/min/1.73m2 (>59) [facility] GFR ( AMER) >60 ml/min/1.73m2 (>59) [facility] GFR INTERPRETATION [facility] --NORMAL KIDNEY FUNCTION OR MILD DISEASE - GFR >OR= 60CHRONIC KIDNEY DISEASE - GFR 15 - 59RENAL FAILURE - GFR <15 Est. GFR calculation based on the MDRDstudy equation, which assumes a steadystate for creatinine. Est. GFR should notbe used for medication dosing. ID Date Data Source [id number] 12/26/2020 10:13:26 AM EDT [facility] Name Value Range Interpretation Code Description Data Ximena rce(s) Supporting Document(s) WBC 11.3 10*3/uL (4.1-11.0) H [facility] RBC 3.55 10*6/uL (4.60-6.10) L [facility] HGB 11.5 g/dL (13.5-18.0) L [facility] HCT 34.3 % (41.0-53.0) [facility] MCV 96.5 fL (80.0-95.0) [facility] MCH 32.5 pg (27.0-32.0) [facility] MCHC 33.6 g/dL (32.0-36.0) [facility] RDW 14.6 % (10.5-14.5) [facility] PLT 223 10*3/uL (150-450) [facility] MPV 7.4 fL (7.1-10.7) [facility] ID Date Data Source [id number] 12/25/2020 11:00:46 PM EDT [facility] Name Value Range Interpretation Code Description Data Ximena rce(s) Supporting Document(s) POC NOVA GLU 106 mg/dL (70-99) [facility] ID Date Data Source [id number] 12/25/2020 03:23:03 PM EDT [address] [address]Zlsohoi Name: MINOO CHAVISSHAWNOB: 1950Sex: MOrdering Provider: TING LORENZANAuthorizing Prov: TING MACKETTReferring Provider: Procedure Performed: XR CHEST PORTABLEExam Date: 12/25/2020 15:09MRN: [id number] Number: [id number] Class: InpatientAccount #: [id number] for Exam: Post TAVR procedureTechnique: AP portable [...] PAMELA MORAES On 12/25/2020 3:23 PMWorkstation ID: [id number] Name Value Range Interpretation Code Description Data Ximena rce(s) Supporting Document(s) ID Date Data Source [id number] 12/25/2020 03:00:55 PM EDT [facility] Name Value Range Interpretation Code Description Data Ximena rce(s) Supporting Document(s) EKG [facility] [id number] jb2 [file] ID Date Data Source [id number] 12/25/2020 08:16:35 PM EDT [facility] Name Value Range Interpretation Code Description Data Ximena rce(s) Supporting Document(s) WBC 14.2 10*3/uL (4.1-11.0) H [facility] RBC 3.92 10*6/uL (4.60-6.10) L [facility] HGB 12.9 g/dL (13.5-18.0) L [facility] HCT 37.8 % (41.0-53.0) L [facility] MCV 96.5 fL (80.0-95.0) H [facility] MCH 33.0 pg (27.0-32.0) H [facility] MCHC 34.2 g/dL (32.0-36.0) [facility] RDW 14.7 % (10.5-14.5) H [facility] PLT 240 10*3/uL (150-450) [facility] MPV 8.0 fL (7.1-10.7) [facility] ID Date Data Source [id number] 12/25/2020 04:34:52 PM EDT [facility] Name Value Range Interpretation Code Description Data Ximena rce(s) Supporting Document(s) SODIUM 136 mmol/L (136-145) [facility] POTASSIUM 3.9 mmol/L (3.6-5.2) [facility] CHLORIDE 103 mmol/L (100-108) [facility] CO2 25 mmol/L (22-31) [facility] ANION GAP 8 mmol/L (7-16) [facility] UREA NITROGEN 24 mg/dL (7-24) [facility] CREATININE 0.74 mg/dL (0.80-1.30) L [facility] BUN/CREAT RATIO 32.4 RATIO (10.0-20.0) H [facility] GLUCOSE 179 mg/dL (70-99) H [facility] CALCIUM 8.8 mg/dL (8.4-10.2) [facility] GFR >60 ml/min/1.73m2 (>59) [facility] GFR ( AMER) >60 ml/min/1.73m2 (>59) [facility] GFR INTERPRETATION [facility] --NORMAL KIDNEY FUNCTION OR MILD DISEASE - GFR >OR= 60CHRONIC KIDNEY DISEASE - GFR 15 - 59RENAL FAILURE - GFR <15 Est. GFR calculation based on the MDRDstudy equation, which assumes a steadystate for creatinine. Est. GFR should notbe used for medication dosing. ID Date Data Source [id number] 12/25/2020 04:34:52 PM EDT [facility] Name Value Range Interpretation Code Description Data Ximena rce(s) Supporting Document(s) MAGNESIUM 3.0 mg/dL (1.7-2.4) H [facility] ID Date Data Source [id number] 12/25/2020 04:34:17 PM EDT [facility] Name Value Range Interpretation Code Description Data Ximena rce(s) Supporting Document(s) HEMOGLOBIN A1C @ 6.8 % (4.0-6.0) H [facility] Performed using Siem[employer] [place] immunoassa y.Care must be taken when interpreting UwF2zdbcyqqg in patients with a hemoglobin variantor decreased erythrocyte lifespan. Values 5.7 - 6.4% suggest prediabetes.Values >=6.5% are diagnostic for diabetes.REFERENCE: DIABETES CARE 2018: 41(S13-S27).PERFORMED AT [address] [place] [address] EST AVERAGE GLUCOSE 148 mg/dL [facility] ID Date Data Source [id number] 12/25/2020 04:14:05 PM EDT [facility] Name Value Range Interpretation Code Description Data Ximena rce(s) Supporting Document(s) PT 10.6 s (9.2-11.9) [facility] PERFORMED AT [address] [place] [address] Y [address] INR 1.01 [facility] SUGGESTED THERAPEUTIC RANGES USING INR F ORSTABILIZED ANTICOAGULATED PATIENTS:STANDARD DOSE THERAPY INR 2.0-3.0 DVT, PE, PREVENT DVT OR EMBOLISMHIGH DOSE THERAPY INR 2.5-3.5 PREVENT EMBOLISM FROM MECHANICAL HEART VALVE ID Date Data Source [id number] 12/25/2020 02:42:40 PM EDT [facility] Name Value Range Interpretation Code Description Data Ximena rce(s) Supporting Document(s) POC NOVA GLU 191 mg/dL (70-99) H [facility] [place] [facility] ID Date Data Source [id number] 12/25/2020 02:33:27 PM EDT [facility] NT INFORMATIONPatient MRN Name Date of Age Gend*PT [id number] Minoo Velasquez III 1950 70 years M IPPT Location Admission Date/Time Visit ID [facility]ending [facility] 12/25/20 1006 --- Shanique Ramírez MD([id number]) EPI ID CSN Admitting Provider [id number] Shanique Ramírez MD([id number])TAVR Procedure NotePatient Name: Minoo Velasquez III of : 1950 Age 70 yearsPrimary Physician: MARGA DANIELS PCP [facility] of Surgery: 12/25/2020 [employer] NELSY Phoenixre-Diagnosis: Severe ASProcedure: TAVRAssistant(s): Dr. Sorensen/InterventionThe [...] rce(s) Supporting Document(s) ID Date Data Source [id number] 12/25/2020 02:05:59 PM EDT [facility] Name Value Range Interpretation Code Description Data Ximena rce(s) Supporting Document(s) &PDF [facility] WPWRDq2sPnKYOdGd83/HJKhxUUJvb2InNFqtGOc8JVvpGKFyM7KkmJhcEWKWFlJzPtACXU9TAPHMJLhL hdG [file] ICAgICAgICAgICAgICAgICAgICAgICAgICAgICAgIC AgICAgICAgICAgICAgICAgICAgICAgICAgICAgICAgICAgICAgICAgICAgICAgICAgICAgICAgICAgIC HqJKFwYS2HGFSjSMZoTFErUXEjZNRuMQGzEVCgXAOoUZDgMYVoEMMjJABrUESgHCFiHDCiBVFlXLGoLZ AgICAgICAgICAgICAgICAgICAgICAgICAgICAgICAg FPQgREBeDXQqPXEqAZTkCK3QEYGhWFZtEEOhGYHyJIAlZDBbKACgZPTsAXVdRDTuDDJcEPEwSMNzVHOy ZTJxZCNlTJAtYSJgFOBxRFWyTTGuMUMsJHQaKTNySBZuDYTjYSYpGTNiTVFyOYVbFFUrSZPsRLBeIS9O ICAgICAgICAgICAgICAgICAgICAgICAgICAgICAgIC AgICAgICAgICAgICAgICAgICAgICAgICAgICAgICAgICAgICAgICAgICAgICAgICAgICAgICAgICAgIC QsQUGxGREmED8MOOPoLJTcOGDhHDPrENTcIBGvPGShIZLnTTQpFQCfDIEtWHEiCCShUBWlOCOtWKVlAJ AgICAgICAgICAgICAgICAgICAgICAgICAgICAgICAg OTHwBCKhRORgBQJrKXUaAREmEI9TNLWlKDGzKPXvLIIrUVEvBWPoIJSuWSMgFKPbJKBfYPWvGDWsBJBv ICAgICAgICAgICAgICAgICAgICAgICAgICAgICAgICAgICAgICAgICAgICAgICAgICAgICAgICAgICAg HG2FZRDnBEKqWQPjOAOgLLTuJFJeMMNhSWXhNVSrCK AgICAgICAgICAgICAgICAgICAgICAgICAgICAgICAgICAgICAgICAgICAgICAgICAgICAgICAgICAgIC EwYFPoAXWvSLQlOO8HIRLmFDDeMEVgABKgAUTaSYDuQKRnRQLcVHNgKRKmFHSxCOYyJQZrFBXyYGMvLL AgICAgICAgICAgICAgICAgICAgICAgICAgICAgICAg WDMjKWInTGEmPMStQZDuQYDaVYJfJB3QNVYgEXTrPPVrSZScWEJkGEEzFOTcPPWaLBNqHIQdJRJpKSPn ICAgICAgICAgICAgICAgICAgICAgICAgICAgICAgICAgICAgICAgICAgICAgICAgICAgICAgICAgICAg VHAeZP1WLFRdSSPhKCTxHUXnEJRmHTNbWQHrWKYmMM AgICAgICAgICAgICAgICAgICAgICAgICAgICAgICAgICAgICAgICAgICAgICAgICAgICAgICAgICAgIC OiITRxBTFxJPEbHSKjAG2JPY50yPEvd5V8UKJmVY8ghjt/Lo8QJOdetmUuyTIuND3GGfLwQR2rbv0MOg KtLA5xeg0TGAgHQlDyX6S5pZHcULXwUEHWKeVgQ59r LLooGw11MFffXPAbUlPmUIb2Tx1SYkCtY9mtPWWeIyK4BRTsQiPxWKsiTR0Vs4LeyMIjNJw+Eo2DCJ9j u8VhGFogFHKwEE2bqj7PLMlDOkNqC3H3oMAsW0W7MItlKz0TCCYdTYAkSQtqGYXXRHlvHX8GCM8yhqF9 PH6LhSGeOPExYWYcjKTiCWm8C13niZKxLFbeEN1MPK A+Concha+Wu2AITGsPAXqOWDbQvSlYDUTGlXoR11fcQBsXHBcUAW6IKRgBt8OZCDaA3LnulTtjKkzueCdSN QqRNJMZO0SHXnzluYntEXsgMsjYZ29mSbqPX0HWq5QAhGvOY4vlr8DmAHpZg5TLTTjTD6ZAVYtZHHvBT TbJCU9RVCvBuWvFWjbSJGaUKFwAHL2EPOcTWVxQM6A PuDeCPOmQTB2UHSfFBJjUHSnmt0FMMNwSOHkLrO6OIOpESQhSKViSOcfDZYwLOJqKLn4VZUmZCJqVF5D KmPnWMNwSYAxVWZqLBBkYMAwzs1XKHXqSATjDlJvNHGuJNQiASOnJWphOGXxREQjIqH9BMOyHRRqHI3F PiTzZLBzUYU4MmLaPBDxNCDohc3RNEBoBRUdPfN2KF PaJUXoHBKyRZejABMkXQL6XFc0QOCpXTFgXR4JUhLjJOUiFJH4ZOJoQLFnKENkgp6MLWRjSDEcYZl1Qs IuQDNdIBSxZMslYLRuTEA1OTB3SIHjBJXbWM1JChMuJHCzGNNeELVrHVHnWAZtkt1FUNQcKMJbIpIzDS AeQJZmIBTsZUfeKCCcOEOuSNN6FSIsSKJtDK6CXePa FEMgVAU2NaQgJQSlXBRjuh7ZOQGhOQGbTdQaXRXgCAHdOVWvVPdxKNXlOCY3MwU2QMAzVSElXD4OLeGg CBezUTHRPly9AMrbS2a3RGOdBY4LB5Ayq0PqCXsuMKZVLZdoLT1xweWrHPKtGh9VB3xQYvfsJxlsRDUv UfWdSfK3W0JxMjDjNLXcPET0TOGeRrglYG3mDNU6QV I8SXD1MMIrRYfyNnT2RvPrPBH9RTDtQRC3VtAzVtPaSL8TLj4MImO6NID9eVPdOd8VNTp0CxLHLwBbXV 9GDQo= ID Date Data Source [id number] 12/25/2020 03:12:40 PM EDT [facility] Name Value Range Interpretation Code Description Data Ximena rce(s) Supporting Document(s) POC ACT 246 s (80-140) H [facility] ID Date Data Source [id number] 12/25/2020 01:26:41 PM EDT [facility] Name Value Range Interpretation Code Description Data Ximena rce(s) Supporting Document(s) POC TEMPERATURE [facility] 37.0C POC SOURCE [facility] POC FIO2 100 [facility] CP BYPASS [facility] POC PH 7.31 pH (7.35-7.45) L [facility] POC PCO2 61.3 MMHG (32.0-48.0) H [facility] POC PO2 519 MMHG (83-108) H [facility] POC SAT O2 100 % (95-99) H [facility] POC BASE EXCESS 3 MMOL/L (0-3) [facility] POC HCO3 30.7 MMOL/L (21.0-29.0) H [facility] POC TOTAL CO2 33 MMOL/L (23.0-32.0) H [facility] POC HCT 39 % (41.0-53.0) L [facility] POC SODIUM 133 MMOL/L (136-145) L [facility] POC POTASSIUM 3.8 MMOL/L (3.6-5.2) [facility] POC IONIZED CALCIUM 4.4 MG/DL (4.6-5.3) L [facility] POC GLU 209 MG/DL (70-99) H [facility] PER[facility] ID Date Data Source [id number] 12/25/2020 01:26:16 PM EDT [facility] Name Value Range Interpretation Code Description Data Ximena rce(s) Supporting Document(s) POC ACT 114 s (80-140) [facility] ID Date Data Source [id number] 12/25/2020 01:19:49 PM EDT [facility] NT INFORMATIONPatient MRN Name Date of Age Gend*PT [id number] Minoo Velasquez III 1950 70 years M IPPT Location Admission Date/Time Visit ID Attending Provider --- --- --- --- EPI ID CSN Admitting Pr ovider [id number] ---Introducer AdditionsPatient location during procedure: CV hybrid roomIndications for introducer addition: Temporary pacingStaffingPerformed by: Terrence Pop CRNAApproved by: Arturo [...] changes to vital signs and catheter flushed [id number] NS Name Value Range Interpretation Code Description Data Ximena rce(s) Supporting Document(s) ID Date Data Source [id number] 12/25/2020 01:19:19 PM EDT [facility] NT INFORMATIONPatient MRN Name Date of Age Gend*PT [id number] Minoo Velasquez E III 1950 70 years M IPPT Location Admission Date/Time Visit ID Attending Provider --- --- --- --- EPI ID CSN Admitting Pr ovider [id number] ---Central Line InsertionPatient location during procedure: CV [...] changes to vital signs and catheter flushed [id number] NS Name Value Range Interpretation Code Description Data Ximena rce(s) Supporting Document(s) ID Date Data Source [id number] 12/25/2020 01:18:58 PM EDT [facility] NT INFORMATIONPatient MRN Name Date of Age Gend*PT [id number] Minoo Velasquez E III 1950 70 years M IPPT Location Admission Date/Time Visit ID Attending Provider --- --- --- --- EPI ID CSN Admitting Pr ovid [id number] ---Arterial Line PlacementPatient location during procedure: CV [...] rce(s) Supporting Document(s) ID Date Data Source [id number] 12/25/2020 01:18:43 PM EDT [facility] NT INFORMATIONPatient MRN Name Date of Age Gend*PT [id number] Minoo Velasquez III 1950 70 years M IPPT Location Admission Date/Time Visit ID Attending Provider --- --- --- --- EPI ID CSN Admitting Pr [facility] [id number] ---AirwayPatient location during procedure: CV hybrid roomUrgency: [...] cmPlacement verified by: chest auscultation and + [id number]: equal breath sounds bilateral and CTAGrade view: grade I - full view of glottis Name Value Range Interpretation Code Description Data Ximena rce(s) Supporting Document(s) ID Date Data Source [id number] 12/25/2020 10:43:38 AM EDT [facility] Name Value Range Interpretation Code Description Data Ximena rce(s) Supporting Document(s) POC NOVA GLU 153 mg/dL (70-99) H [facility] ID Date Data Source [id number] 12/27/2020 12:35:45 AM EDT [facility] SPEC EXP DATE 12/26/2020TEST ING SITE PERFORMED AT [address] [place] [address] 82154HHEP NUMBER [id number] COMPONENT TYPE LEUKOPOOR RED CELLSUNIT DIVISION 00STATUS OF UNIT REL FROM ALLOCTRANSFUSION STATUS OK TO TRANSFUSECROSSMATCH RESULT COMPATIBLEUNIT NUMBER [id number] COMPONENT TYPE LEUKOPOOR RED CELLSUNIT DIVISION 00STATUS OF UNIT REL FROM ALLOCTRANSFUSION STATUS OK TO TRANSFUSECROSSMATCH RESULT COMPATIBLEUNIT NUMBER [id number] COMPONENT TYPE LEUKOPOOR RED CELLSUNIT DIVISION 00STATUS OF UNIT REL FROM ALLOCTRANSFUSION STATUS OK TO TRANSFUSECROSSMATCH RESULT COMPATIBLEUNIT NUMBER [id number] COMPONENT TYPE LEUKOPOOR RED CELLSUNIT DIVISION 00STATUS OF UNIT REL FROM ALLOCTRANSFUSION STATUS OK TO TRANSFUSECROSSMATCH RESULT COMPATIBLE Name Value Range Interpretation Code Description Data Ximena rce(s) Supporting Document(s) TRANSFUSE RED CELLS [facility] TESTING SITE PERFORMED AT [address] [place] [id number] ID Date Data Source [id number] 12/23/2020 03:54:03 PM EDT [facility] NT INFORMATIONPatient MRN Name Date of Age Gend*PT [id number] Minoo Velasquez III 1950 70 years M OPPT Location Admission Date/Time Visit ID Attending Provider --- --- --- Shanique Ramírez MD([id number]) EPI ID CSN Admitting Provider [id number] ---HISTORY PHYSICALName: Minoo Velasquez III : 1950 Sex: male Care Provider: Rajiv DANIELS Physician: Dr. 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 Ramírez. He reports shortnessof breath at [...] 11/26/2020 Added automatically from request for surgery [id number] Cardiac murmur CHF (congestive heart failure) COPD [...] 11/26/2020 Added automatically from request for surgery [id number] Stroke seen on imaging per patient Systolic heart failure 11/26/2020 Added automatically from request for surgery [id number] SURGICAL HISTORY:Past Surgical History:Procedure Laterality Date ANGIOPLASTY [...] Comment: 05/09/2008 @ 1447- [facility]- PATIENT HAS BEEN TAKING BENADRYL W/O PROBLEM..BTETY Levofloxacin Reaction: LEG CRAMPS Pravastatin Other (See [...] Take 1,000 mg by mouth dailyHistorical Provider, ZJA-Cuxezsi-R TABS Take 1 tablet by mouth daily [...] chest pain 11/25/20 Renae Lucas PAnystatin (MYCOSTATIN) [id number] UNIT/ML suspension Take 200,000 Units by mouth [...] On Wednesday, Wednesday, and WednesdayHistorical Provider, Tiotropium [place] Monohy drate (SPIRIVA RESPIMAT IN) Inhale daily [...] HistoryProblem Relation Age of Onset Myocardial Infarction (VA) Father Healthy, No Significant History Mother Malig [...] warm and dry.HEENT: He is normocephalic, atraumatic. [place] conjunctivae. Anicteric sclerae.Pupils are equal, round, reactive [...] hepatosplenomegaly. Negative CVAT.GENITAL/RECTAL: Deferred.MUSCLE/SKELETAL: Strength is 5/5. Food Service Team Member are equal.NEUROLOGICALLY: Cranial nerves II through XII [...] or LMW Heparin if clinically indicated8. Anxiety9. Ljyvxstjhw02. Coronary artery disease EKG ordered today.Based on above medical co morbidities, length of stay may be prolonged greaterthan previously anticipated.ALLERGIES:Aspirin, Fexofenadine, Levofloxacin, Pravastatin, Quinine, andRosuvastatin12/23/2020 3:53 PMRenee Grant NP*This document or parts of this document, were dictated using [employer] speaking software. A reasonable attempt at proofreading has beenmade to minimize errors. Please call with any questions or corrections. Name Value Range Interpretation Code Description Data Ximena rce(s) Supporting Document(s) ID Date Data Source [id number] 12/23/2020 12:57:43 PM EDT [facility] Name Value Range Interpretation Code Description Data Ximena rce(s) Supporting Document(s) EKG [facility] AXNDFs8tCnWWQwEmt5EbEoFpMBMsTS2grxb4Z7A8hHPuB4OkoLSsa7qlG2KfC9VmPVQjBYKRSA3BpPJj jb2 [file] [id number]== ID Date Data Source [id number] 12/24/2020 11:09:48 AM EDT [facility] SPECIMEN DESCRIPTION MIDSTREAM UR INE,CLEAN CATCHCULTURE RESULTS NO GROWTHREPORT STATUS FINAL 12/24/2020 Name Value Range Interpretation Code Description Data Ximena rce(s) Supporting Document(s) ID Date Data Source [id number] 12/23/2020 04:04:11 PM EDT [facility] Name Value Range Interpretation Code Description Data Ximena rce(s) Supporting Document(s) COLOR [facility] APPEARANCE [facility] SPEC GRAV URINE 1.036 (1.003-1.030) H [facility] PH URINE 6.0 (5.0-7.5) [facility] LEUK ESTERASE (NEG) [facility] NITRITE URINE (NEG) [facility] PROTEIN URINE (NEG) [facility] GLUCOSE URINE 3+ (NEG) A [facility] KETONE URINE (NEG) [facility] UROBILINOGEN 0.2 mg/dL (0-1.0) [facility] BILIRUBIN URINE (NEG) [facility] BLOOD/HGB URINE (NEG) [facility] ID Date Data Source [id number] 12/23/2020 10:44:36 PM EDT [facility] SPEC EXP DATE 12/26/2020ATI ENT ABO/Rh A POSITIVEANTIBODY SCREEN NEGATIVETESTING SITE PERFORMED AT [address] [place] [address] [id number] BANK COMMENT BLOOD TYPE CONFIRMED. Name Value Range Interpretation Code Description Data Ximena rce(s) Supporting Document(s) TYPE AND SCREEN [facility] ID Date Data Source [id number] 12/23/2020 05:52:12 PM EDT [facility] Name Value Range Interpretation Code Description Data Ximena rce(s) Supporting Document(s) HEMOGLOBIN A1C @ 6.7 % (4.0-6.0) H [facility] Performed using Siem[employer] [place] immunoassa y.Care must be taken when interpreting LhF2yqdzgvgq in patients with a hemoglobin variantor decreased erythrocyte lifespan. Values 5.7 - 6.4% suggest prediabetes.Values >=6.5% are diagnostic for diabetes.REFERENCE: DIABETES CARE 2018: 41(S13-S27). EST AVERAGE GLUCOSE 146 mg/dL [facility] ID Date Data Source [id number] 12/23/2020 05:22:49 PM EDT [facility] Name Value Range Interpretation Code Description Data Ximena rce(s) Supporting Document(s) WBC 10.3 10*3/uL (4.1-11.0) [facility] RBC 4.16 10*6/uL (4.60-6.10) L [facility] HGB 13.8 g/dL (13.5-18.0) [facility] HCT 40.8 % (41.0-53.0) L [facility] MCV 98.2 fL (80.0-95.0) H [facility] MCH 33.1 pg (27.0-32.0) H [facility] MCHC 33.7 g/dL (32.0-36.0) [facility] RDW 14.7 % (10.5-14.5) H [facility] PLT 271 10*3/uL (150-450) [facility] MPV 7.6 fL (7.1-10.7) [facility] NEUT % 63.0 % (35.0-75.0) [facility] LYMPH % 21.0 % (16.0-52.0) [facility] ATYP LYMPH % 1.0 % (0.0-5.0) [facility] [place] MONO % 12.0 % (0.0-8.0) H [facility] EOS % 1.0 % (0.0-5.0) [facility] BASO % 1.0 % (0.0-4.0) [facility] MYELO % 1.0 % (0.0) H [facility] NEUT # 6.5 10*3/uL (1.8-7.7) [facility] LYMPH # 2.2 10*3/uL (1.2-4.8) [facility] ATYP LYMPH # 0.1 10*3/uL [facility] MONO # 1.2 10*3/uL (0.0-0.8) H [facility] Eosinophils [#/volume] in Blood by Automated count 0.1 10*3/uL (0.0-0 .5) [facility] BASO # 0.1 10*3/uL (0.0-0.2) [facility] MYELO # 0.1 10*3/uL (0.0) H [facility] LARGE PLT 1+ [facility] ID Date Data Source [id number] 12/23/2020 04:33:04 PM EDT [facility] Name Value Range Interpretation Code Description Data Ximena rce(s) Supporting Document(s) BILIRUBIN,UNCONJ. (0.0-0.7) [facility] ID Date Data Source [id number] 12/23/2020 04:33:04 PM EDT [facility] Name Value Range Interpretation Code Description Data Ximena rce(s) Supporting Document(s) SODIUM 139 mmol/L (136-145) [facility] POTASSIUM 3.9 mmol/L (3.6-5.2) [facility] CHLORIDE 100 mmol/L (100-108) [facility] CO2 29 mmol/L (22-31) [facility] ANION GAP 10 mmol/L (7-16) [facility] UREA NITROGEN 24 mg/dL (7-24) [facility] CREATININE 0.76 mg/dL (0.80-1.30) L [facility] BUN/CREAT RATIO 31.6 RATIO (10.0-20.0) H [facility] GLUCOSE 81 mg/dL (70-99) [facility] CALCIUM 9.4 mg/dL (8.4-10.2) [facility] TOTAL PROTEIN 6.6 g/dL (6.4-8.2) [facility] ALBUMIN 3.7 g/dL (3.2-4.5) [facility] GLOBULIN 2.9 g/dL (2.7-4.3) [facility] ALB/GLOB RATIO 1.3 RATIO [facility] ALKALINE PHOSPHATASE 66 U/L (45-117) [facility] BILIRUBIN,TOTAL 0.2 mg/dL (0.0-1.0) [facility] PLEASE NOTE:Total bilirubin results may be falselyelevated in patients taking Eltrombopag. AST (SGOT) 20 U/L (11-39) [facility] ALT (SGPT) 28 U/L (12-78) [facility] GFR >60 ml/min/1.73m2 (>59) [facility] GFR ( AMER) >60 ml/min/1.73m2 (>59) [facility] GFR INTERPRETATION Lab [facility] --NORMAL KIDNEY FUNCTION OR MILD DISEASE - GFR >OR= 60CHRONIC KIDNEY DISEASE - GFR 15 - 59RENAL FAILURE - GFR <15 Est. GFR calculation based on the MDRDstudy equation, which assumes a steadystate for creatinine. Est. GFR should notbe used for medication dosing. ID Date Data Source [id number] 12/23/2020 04:33:04 PM EDT [facility] Name Value Range Interpretation Code Description Data Ximena rce(s) Supporting Document(s) NT PRO BNP 3847 pg/mL (0-125) H [facility] ID Date Data Source [id number] 12/23/2020 04:33:04 PM EDT [facility] Name Value Range Interpretation Code Description Data Ximena rce(s) Supporting Document(s) BILIRUBIN,CONJUGATED <0.1 mg/dL (0.0-0.3) [facility] ID Date Data Source [id number] 12/23/2020 04:06:00 PM EDT [facility] Name Value Range Interpretation Code Description Data Ximena rce(s) Supporting Document(s) APTT 23.3 s (22.0-34.3) [facility] ID Date Data Source [id number] 12/23/2020 04:06:00 PM EDT [facility] Name Value Range Interpretation Code Description Data Ximena rce(s) Supporting Document(s) PT 9.9 s (9.2-11.9) [facility] INR 0.95 [facility] SUGGESTED THERAPEUTIC RANGES USING INR F ORSTABILIZED ANTICOAGULATED PATIENTS:STANDARD DOSE THERAPY INR 2.0-3.0 DVT, PE, PREVENT DVT OR EMBOLISMHIGH DOSE THERAPY INR 2.5-3.5 PREVENT EMBOLISM FROM MECHANICAL HEART VALVE ID Date Data Source [id number] 12/23/2020 03:19:13 PM EDT [facility] Name Value Range Interpretation Code Description Data Ximena rce(s) Supporting Document(s) ROOM TEMP AB SCREEN [facility] ROOM TEMP AB SCREEN NEGATIVE ID Date Data Source [id number] 12/24/2020 12:10:21 PM EDT [facility] Name Value Range Interpretation Code Description Data Ximena rce(s) Supporting Document(s) SPECIMEN DESCRIPTION [facility] STAPH SCREEN RESULTS (ONEGSA) [facility] COMMENT [facility] GENE TO DETECT STAPH AUREUS. (2) RT-P CR WAS PERFORMED FOR THE mecA AND SCC[employer] GENES TO DETECT METHICILLIN RESISTANCE IN STAPH AUREUS. ID Date Data Source [id number] 12/12/2020 03:36:00 PM EDT [facility] Name Value Range Interpretation Code Description Data Ximena rce(s) Supporting Document(s) Color Urine Laboratory test result M [facility] ([facility] Appearance of Urine Laboratory test result [facility] ([facility] Specific [place] 1.025 1.00-1.03 [facility] ([facility] Glucose Urine Laboratory test result Above high normal [facility] ([facility] PH Urine 7.5 5.0-8.0 [facility] ([facility] Ketones Laboratory test result [facility] ([facility] Bilirubin.total [Presence] in Urine by Test strip Laboratory test res ult [facility] ([facility] Blood Urine Laboratory test result M EDENT ([facility] Urobilinogen 0.2 EU/dl 0.2-1.0 [facility] ([facility] Protein Urine Laboratory test result [facility] ([facility] Nitrite Laboratory test result [facility] ([facility] Leukocytes Laboratory test result ME DENT ([facility] ID Date Data Source [id number] 12/11/2020 07:03:09 AM EDT [facility] NT INFORMATIONPatient MRN Name Date of Age Gend*PT [id number] Minoo Velasquez III 1950 70 years M ---PT Location Admission Date/Time Visit ID Attending Provider --- --- --- --- EPI ID CSN Admitting Provider [id number] ---I have reviewed all the pertinent notes for Minoo Velasquez III and agree withthe documentation.Warren Dykes MD Name Value Range Interpretation Code Description Data Ximena rce(s) Supporting Document(s) ID Date Data Source [id number] 12/10/2020 02:13:43 PM EDT [facility] NT INFORMATIONPatient MRN Name Date of Age Gend*PT [id number] Minoo Velasquez III 1950 70 years M ---PT Location Admission Date/Time Visit ID Attending Provider --- --- --- --- EPI ID CSN Admitting Provider [id number] ---Cardiology Office VisitSubjectiveChief Complaint: Follow-up cardiac catheterization [...] arterial disease status post left femoral endarterectomy 59969. Iron deficiency anemia9. Vitamin B12 bnevzczkmj24. JERI 11/27/2020 LVEF 65%. Mild LVH. Severe [...] his . [facility] and treated for [...] HistoryProblem Relation Age of Onset Myocardial Infarction (VA) Father Healthy, No Significant History MotherSocial HistorySocioeconomic [...] Social Gatherings with Friends and Family: Attends [employer] Services: Active Member of Clubs or Organizations: [...] chest pain 25 tablet 1 nystatin (MYCOSTATIN) 769792 UNIT/ML suspension 0 omeprazole (PRILOSEC) 40 MG [...] Chest pain Shortness of breath Atherosclerosis of [place] coronary artery of [place] heart Type 2 diabetes mellitus with complication [...] rce(s) Supporting Document(s) ID Date Data Source [id number] 12/10/2020 11:35:00 AM EDT [facility] NGIO CHEST ABDOMEN PELVIS TAVRCLINICAL [...] rce(s) Supporting Document(s) ID Date Data Source [id number] 12/10/2020 11:28:29 AM EDT [facility] NT INFORMATIONPatient MRN Name Date of Age Gend*PT [id number] Minoo Velasquez III 1950 70 years M HOPPT Location Admission Date/Time Visit ID Attending Provider 12/10/20 1000 --- --- EPI ID CSN Admitting Provider [id number] ---Cardiovascular and Thoracic Surgery HISTORY & PHYSICAL1Chief [...] HistoryProblem Relation Age of Onset Myocardial Infarction (VA) Father Healthy, No Significant History MotherSocial History:Social [...] Social Gatherings with Friends and Family: Attends [employer] Services: Active Member of Clubs or Organizations: [...] pain, Disp: 25tablet, Rfl: 1 nystatin (MYCOSTATIN) [id number] UNIT/ML suspension, , Disp: , Rfl: 0 [...] channelblocker to a beta-jenny after hospitalization in [place]. The patient'sspouse expressed concerns about him being on a beta- jenny given his severelung disease. I agree with her concerns and would not recommend a beta-jenny.I have advised him to resume the calcium channel jenny in lieu of carvedilol.US Carotid doppler bilateralResult Date: 11/27/2020t. [place] [address] Patient Name: JULIAN VELASQUEZ : 1950 Sex: [...] cm/s Internal Systolic Velocity 52 cm/s End-Diastolic Lbgijsko47 cm/s External Systolic Velocity 48 cm/s End-Diastolic [...] HOPSON On 11/27/2020 1:59 PM Workstation ID: [id number] / Impression / Plan:Minoo Velasquez presents with [...] in discussion with the patient.Ton Mtz MD [facility] FACSCardiovascular Thoracic Surgery12/10/2020, 11:26 AM Name Value Range Interpretation Code Description Data Ximena rce(s) Supporting Document(s) ID Date Data Source [id number] 12/04/2020 10:31:00 AM EMELY CARRILLO ([facility] Name Value Range Interpretation Code Description Data Ximena e(s) Supporting Document(s) Color Urine Laboratory test result M EDENT ([facility] PH Urine 5.0 5.0-8.0 [facility] Appearance of Urine Laboratory test result [facility] ([facility] Specific [place] 1.010 1.00-1.03 [facility] ([facility] Bilirubin.total [Presence] in Urine by Test strip Laboratory test res ult [facility] ([facility] Glucose Urine Laboratory test result Above high normal [facility] ([facility] Ketones Laboratory test result [facility] ([facility] Protein Urine Laboratory test result [facility] ([facility] Blood Urine Laboratory test result M EDENT ([facility] Urobilinogen 0.2 EU/dl 0.2-1.0 [facility] ([facility] Leukocytes Laboratory test result ME DENT ([facility] Nitrite Laboratory test result [facility] ([facility] ID Date Data Source [id number] 12/04/2020 10:12:00 AM EDT [facility] ([facility] Name Value Range Interpretation Code Description Data Ximena rce(s) Supporting Document(s) Glu 119 mg/dL 70-110 Above high normal [facility] ([facility] NORMAL RANGES Age WBC RBC [...] HCT IS 5% LESS SOURCE FOR DATA: Archive 1800 OPERATION MANUAL( AUTOMATED BLOOD COUNTS AND [...] 24 mg/dL 8-23 Above high normal [facility] NORMAL RANGES Age WBC [...] HCT IS 5% LESS SOURCE FOR DATA: Archive 1800 OPERATION MANUAL( AUTOMATED BLOOD COUNTS AND [...] HCT IS 5% LESS SOURCE FOR DATA: Archive 1800 OPERATION MANUAL( AUTOMATED BLOOD COUNTS AND [...] above >32 mL/min Normal BUN/Creatinine Ratio 29.0 [facility] ([facility] NORMAL RANGES Age WBC [...] HCT IS 5% LESS SOURCE FOR DATA: Archive 1800 OPERATION MANUAL( AUTOMATED BLOOD COUNTS AND [...] >32 mL/min Normal Na 136 mmol/L 136-145 [facility] ([facility] NORMAL RANGES [...] HCT IS 5% LESS SOURCE FOR DATA: Archive 1800 OPERATION MANUAL( AUTOMATED BLOOD COUNTS AND [...] >32 mL/min Normal K 4.2 mmol/L 3.5-5.1 [facility] ([facility] NORMAL RANGES Age WBC RBC HGB [...] HCT IS 5% LESS SOURCE FOR DATA: Archive 1800 OPERATION MANUAL( AUTOMATED BLOOD COUNTS AND [...] Co2 21.2 mmol/L 22.0-29.0 Below low normal [facility] NORMAL RANGES Age [...] >32 mL/min Normal CL 100.5 mmol/L 98.0-107.0 [facility] ([facility] NORMAL RANGES Age WBC RBC HGB [...] HCT IS 5% LESS SOURCE FOR DATA: Archive 1800 OPERATION MANUAL( AUTOMATED BLOOD COUNTS AND [...] >32 mL/min Normal CA 9.7 mg/dL 8.6-10.2 [facility] NORMAL RANGES Age [...] HCT IS 5% LESS SOURCE FOR DATA: Archive 1800 OPERATION MANUAL( AUTOMATED BLOOD COUNTS AND [...] >32 mL/min Normal Alb 4.3 g/dL 3.5-5.2 [facility] NORMAL RANGES Age [...] HCT IS 5% LESS SOURCE FOR DATA: Archive 1800 OPERATION MANUAL( AUTOMATED BLOOD COUNTS AND [...] >32 mL/min Normal TP 6.7 g/dL 6.6-8.7 [facility] ([facility] [...] HCT IS 5% LESS SOURCE FOR DATA: Archive 1800 OPERATION MANUAL( AUTOMATED BLOOD COUNTS AND [...] HCT IS 5% LESS SOURCE FOR DATA: Archive 1800 OPERATION MANUAL( AUTOMATED BLOOD COUNTS AND [...] HCT IS 5% LESS SOURCE FOR DATA: Archive 1800 OPERATION MANUAL( AUTOMATED BLOOD COUNTS AND [...] mL/min Normal Alt (SGPT) 21 U/L 0-41 [facility] ([facility] NORMAL RANGES Age WBC [...] HCT IS 5% LESS SOURCE FOR DATA: Archive 1800 OPERATION MANUAL( AUTOMATED BLOOD COUNTS AND [...] mL/min Normal Alp 93.2 U/L 40-129 [facility] NORMAL RANGES Age WBC RBC [...] HCT IS 5% LESS SOURCE FOR DATA: Archive 1800 OPERATION MANUAL( AUTOMATED BLOOD COUNTS AND [...] mL/min Normal Ast (Sgot) 16 U/L 0-40 [facility] ([facility] NORMAL RANGES Age WBC [...] HCT IS 5% LESS SOURCE FOR DATA: Archive 1800 OPERATION MANUAL( AUTOMATED BLOOD COUNTS AND [...] >32 mL/min Normal Tbili 0.27 mg/dL 0.0-1.2 [employer] ([facility] NORMAL RANGES Age WBC [...] HCT IS 5% LESS SOURCE FOR DATA: [employer] DYN 1800 OPERATION MANUAL( AUTOMATED BLOOD COUNTS [...] above >32 mL/min Normal Osmolality-Calculated 277.5 CALC [facility] [employer] [facility] ([facility] NORMAL RANGES [...] HCT IS 5% LESS SOURCE FOR DATA: Archive 1800 OPERATION MANUAL( AUTOMATED BLOOD COUNTS AND [...] >32 mL/min Normal Anion Gap 19 mmol/L [facility] NORMAL RANGES Age [...] HCT IS 5% LESS SOURCE FOR DATA: Archive 1800 OPERATION MANUAL( AUTOMATED BLOOD COUNTS AND [...] HCT IS 5% LESS SOURCE FOR DATA: Archive 1800 OPERATION MANUAL( AUTOMATED BLOOD COUNTS AND [...] and above >32 mL/min Normal eGFR Non-Afr. Serbian 92 # [facility] ([facility] [...] HCT IS 5% LESS SOURCE FOR DATA: Archive 1800 OPERATION MANUAL( AUTOMATED BLOOD COUNTS AND [...] >32 mL/min Normal ID Date Data Source [id number] 12/04/2020 10:12:00 AM EDT [facility] ([facility] Name Value Range Interpretation Code Description Data Ximena rce(s) Supporting Document(s) WBC 14.0 10E3/uL 4.1-10.9 Above high normal BOONE T ([facility] NORMAL RANGES Age [...] HCT IS 5% LESS SOURCE FOR DATA: Archive 1800 OPERATION MANUAL( AUTOMATED BLOOD COUNTS AND [...] HCT IS 5% LESS SOURCE FOR DATA: Archive 1800 OPERATION MANUAL( AUTOMATED BLOOD COUNTS AND [...] >32 mL/min Normal HCT 43.4 % 37.0-51.0 [facility] NORMAL RANGES Age WBC RBC [...] HCT IS 5% LESS SOURCE FOR DATA: Archive 1800 OPERATION MANUAL( AUTOMATED BLOOD COUNTS AND [...] >32 mL/min Normal HGB 14.8 g/dL 12.0-18.0 [facility] NORMAL RANGES Age WBC RBC [...] >32 mL/min Normal MCV 95.6 fL 80.0-97.0 [facility] ([facility] NORMAL RANGES [...] HCT IS 5% LESS SOURCE FOR DATA: Archive 1800 OPERATION MANUAL( AUTOMATED BLOOD COUNTS AND [...] >32 mL/min Normal MCHC 34.1 g/dL 31.0-36.0 [facility] ([facility] NORMAL RANGES [...] HCT IS 5% LESS SOURCE FOR DATA: Archive 1800 OPERATION MANUAL( AUTOMATED BLOOD COUNTS AND [...] HCT IS 5% LESS SOURCE FOR DATA: Archive 1800 OPERATION MANUAL( AUTOMATED BLOOD COUNTS AND [...] >32 mL/min Normal PLT 227 10E3/uL 140-440 [facility] ([facility] NORMAL RANGES Age WBC RBC HGB [...] HCT IS 5% LESS SOURCE FOR DATA: Archive 1800 OPERATION MANUAL( AUTOMATED BLOOD COUNTS AND [...] >32 mL/min Normal RDW-CV 13.7 % 11.5-14.5 [facility] ([facility] NORMAL RANGES [...] HCT IS 5% LESS SOURCE FOR DATA: Archive 1800 OPERATION MANUAL( AUTOMATED BLOOD COUNTS AND [...] HCT IS 5% LESS SOURCE FOR DATA: Archive 1800 OPERATION MANUAL( AUTOMATED BLOOD COUNTS AND [...] >32 mL/min Normal Neut% 83.0 % 37.0-92.0 [facility] ([facility] [...] HCT IS 5% LESS SOURCE FOR DATA: Archive 1800 OPERATION MANUAL( AUTOMATED BLOOD COUNTS AND [...] >32 mL/min Normal MXD% 5.9 % 0.1-24.0 [facility] ([facility] NORMAL RANGES [...] HCT IS 5% LESS SOURCE FOR DATA: Archive 1800 OPERATION MANUAL( AUTOMATED BLOOD COUNTS AND [...] Neut# 11.6 % 2.0-7.8 Above high normal [facility] ([facility] NORMAL RANGES Age [...] HCT IS 5% LESS SOURCE FOR DATA: Archive 1800 OPERATION MANUAL( AUTOMATED BLOOD COUNTS AND [...] >32 mL/min Normal Lym# 1.6 10E3/uL 0.6-4.1 [employer] ([facility] NORMAL RANGES Age WBC RBC [...] HCT IS 5% LESS SOURCE FOR DATA: Archive 1800 OPERATION MANUAL( AUTOMATED BLOOD COUNTS AND [...] >32 mL/min Normal MXD# 0.8 10E3/uL 0.0-1.8 [facility] ([facility] NORMAL RANGES Age WBC RBC [...] HCT IS 5% LESS SOURCE FOR DATA: Archive 1800 OPERATION MANUAL( AUTOMATED BLOOD COUNTS AND [...] >32 mL/min Normal MPV 9.7 fL 9.0-13.0 [facility] NORMAL RANGES Age [...] HCT IS 5% LESS SOURCE FOR DATA: Archive 1800 OPERATION MANUAL( AUTOMATED BLOOD COUNTS AND [...] >32 mL/min Normal ID Date Data Source [id number] 11/27/2020 01:59:25 PM EDT [address] [address]Rxiplnu Name: MINOO CHAVISSHAWNOB: 1950Sex: MOrdering Provider: TING LORENZANAuthjossie Prov: TING DESOUZAReferrsiva Provider: Procedure Performed: US CAROTID BILATERALExam Date: 11/27/2020 13:55MRN: [id number] Number: [id number] Class: OutpatientAccount #: [id number] for Exam: TAVR protocolTechnique: Duplex sonography was [...] NASIR HOPSON On 11/27/2020 1:59 PMWorkstation ID: [id number] Name Value Range Interpretation Code Description Data Ximena rce(s) Supporting Document(s) ID Date Data Source [id number] 11/27/2020 12:22:13 PM EDT [facility] Name Value Range Interpretation Code Description Data Ximena rce(s) Supporting Document(s) &PDF [facility] ECMNYi8sZoIVHpXy81/ZVWxyWECzd3RvCTcyYDt1PDnlTHAtG4SleEpyTZEKNxNwMjHRZZ5FZTLHXMkS hdG [file] ICAgICAgICAgICAgICAgICAgICAgICAgICAgICAgICAgICAgICAgICAgICAgICAgICAgICAgICAgICAg ICAgICAgICAgICAgICAgICAgICAgICAgICAgICAgIC OlYJTqPF8HYRAsYBFwENWoIRAkEWCyGDKfAGTmHHRsDRUsBYOgOCHrUNOfGJCkSLKoSWEfNVNxGMMeUL XoHMXdNCBcKUVrMBDoAMQlRVFfBHTyJBTiFLRkOIKaQSOxLJIzMMQdBRDtYYCcYI3IUPFoMMSjPCAsFU AgICAgICAgICAgICAgICAgICAgICAgICAgICAgICAg HAKiFQHsUMKeLFIxXUZzAYVuUQUzLLPdKALvKYWdSTSfGKHkRTVcTOLlINVfLOKxLYZwFZYsLJKiWZ3N ICAgICAgICAgICAgICAgICAgICAgICAgICAgICAgICAgICAgICAgICAgICAgICAgICAgICAgICAgICAg ICAgICAgICAgICAgICAgICAgICAgICAgICAgICAgIC RaRKXbCJNuSL1CRIQjOPOcNNGbQISdRYVsVQZdTFOdCNUpJUBiQCRnXNWwERPeXBYtBLBrUHKcRUEqXN YhWJXiOQHsFNNrTLJtIVMyIMMfJBVsBVOjWJMqNLEgCRJtZTGjOKYkLRQeEVLqZYIvOJ9MPSFmJTEgLV AgICAgICAgICAgICAgICAgICAgICAgICAgICAgICAg ICAgICAgICAgICAgICAgICAgICAgICAgICAgICAgICAgICAgICAgICAgICAgICAgICAgICAgICAgICAg VZ4JCXBmBJEgQKMaKKTjUVOdZFDsFYLjJHHwVDBiUGOxYGUgRLQiUTMjDVUpENIlGGAcDNNqSANjACZo ICAgICAgICAgICAgICAgICAgICAgICAgICAgICAgIC IoBVXbERBnEFKkWF6EYNFtADHuPZHsLODxUSThPVDlLZKyRYEoCLTmBRZxCPJcBGDpQQYoBGJrVQZoVN QkTJQgRCBcTKGvIZTaLNXhUVOfMGPuPPEsKSHiAFKxFPOoCVGaHRJnCDZkAIHzXMNgGURyII1FHILzHM AgICAgICAgICAgICAgICAgICAgICAgICAgICAgICAg ICAgICAgICAgICAgICAgICAgICAgICAgICAgICAgICAgICAgICAgICAgICAgICAgICAgICAgICAgICAg DAAbWD2PIAPqPKFiDCBoKPIiBKEiNBLkNXPnEIUoEGQiZYDgSUJhZYBzQLVpHEWuHUIfMCFcQIBdFHDz ICAgICAgICAgICAgICAgICAgICAgICAgICAgICAgIC BnAPQbFSBjMNJzOWCtNG6HYS66wECtd8N3JAPpDF4oapj/Fx1IQPnwmwFxfDOkKR0OZaZvJU7rin7WZd RgYQ8rsr9YWYyWIxBtM2N8fBUhDYGwSVFRXdMbD43lGVnuTf33NSveLQNfLwRdBXh6Cs4EMhUyI8wwPT TcGtY9PSTrGfF3IWBoOwO1NEAtBsNjQBFsZLSySU4I DCBiC896mmNtSB5SWd7YJsSyJT0iuv1OCugnWJMlZgiHEbl8UBpwON2VdODusCQlNPPnJYUHOkFxE4dk a4BcCrQvSMKTJNufBD4Wf3BjjAEtFKz+Ge5MFT4br2JaIWxvVLJlCC9yvu0PCSfYQkUkE0YcrDnjBNfe kKrgciHuTV4JVZHrEHFliOVbWNonUZKZAJ4EPWkgUY W2MALqesBguADxKKqsGP2IEKWzyhZjCdftWFQEZDs+Or5SRV0sg3XlGEqsRDGnZN7aiw3YJAlNBsYlK4 I3iOTtC9L3KZtnMk4JKYFcEKVrJplkPAUOTGpnBF8ENS6srhL1SF4UiDPeBKDqKZNvbXIyJBk1I73zvX WoSXiaTO7GWVC+Concha+Yy5UNISfXVWlFZPyRfIhKABO IpTyY5SmZ7QHo1VaC5ZtLI47wVndvsWuQIznGB2DNS4gVDDtMBXYZX8WvSWkrU2uuzGnPQHeYQMEBsEc D85ipNPcLCQcBPA7HPUzVd5JLEMvR2TczsPqpUpdxaBoFVQxCHUDNW8DHVbljsAouFNueRidRQ64jLwu TQ3TNf8TAgYcNE9fkw0BzOLbIx0BXRPdMd0LEUVuDW WjHIYdIYF3CAJnQoOiPInvSKLeLFJgPTC9HQXjRSZfIG6HChOvMCNpIQO5AEFxVNReITXcsh2QAVSeGQ E7EkIiRVXoJCRoGQQaUMimXQRiEFEpAYw1YXNhWAFlDR2AGgWbZRQhMOUtFTBfAQNcFIBwmx5VNLKiVB KnMcXaOAUaFKXtWRDiBMauVSJaPPI6SDWnGRFbDQFc FW1CDxGjQBElBCE1QpgyTJWeTGVwef8FVUOdGYBhYoakFREsOXQhWYYuQVxbRPVkMQS8ZGG6JTFoTKKq VU0SUaTqGPIdIXe2VYHfNELwZBThcr7LITNpKLBzDYlwYRKaQSQcMWKlFTnhVBSgGYGtLiAkTGXtQFMd PS4VHcMbXIIyRLR1KEbjCPJaFARyjp9MGNAtGBOnPE U7XGGzPRMaPEHxARvbOFHvFJBhFKEsRUZuVTHfGS4BWrReMINzFVTmWRImIPDkAVDjbh3DDBEaULLdEx I3SVVsECQdBYKdRIcmQJLsWDV5LsJ3OROlGDSgRL0YFjJoOLFaPQq6YxKqSYHlBBVbiw3RJHVuVXOzNd u7KRQzDNBzXJCfTGylUVPaJST3HQR3VLOtAVEfSH1S CcFsZQPyLVcvUsPhSIBaMAUwnb7EXJZvXERcKjW8OhOkKMLeZVSiGCddAVGtXGWlBYR6AOEgQBGhRP7O QyUbPRAnApL5QrkpWMJrUWSkun4GSAPzPDF4QHzeQSSbGTLqCHCkTSthMJYjGNEhWZw3JYZeKNEdAN8C VqBqVAMeNBB4VKXdKPZuSGPxbf0DHQCcKSH3MeyaXe NnIDVeSPGiNCsxUQIeJAOcQGY5FGVdIDIwTD8QOkGmDHvwMHZXHqy1TDovI0q1ABOvYx4PS2Elb7GyVa CiQIYPYOqeTI9phoVhPRIhKg5HD4wXMxr7UCVrFfF3SFIsETqbYtXoBOdpHxx4QROaQhY6VfZzSb0vXZ bnPbY4QYugJ0MhDUJmWLBrBGHnICvvLSDiRJHgY2Vl GwGdZC7ISk8WQeL0NDH0xHCfRr6LVZNzJpzIDfJwEZ4AKKx= ID Date Data Source [id number] 11/27/2020 12:24:50 PM EDT [facility] NT INFORMATIONPatient MRN Name Date of Age Gend*PT [id number] VelasquezKeithMinoo E III 1950 70 years M HOPPT Location Admission Date/Time Visit ID Attending ProviderCV-[id number] 11/27/20628 --- Callie Enamorado MD([id number]) EPI ID CSN Admitting Provider [id number] Callie Enamorado MD([id number])Cardiology H&P The patient is a 70-year-old man with a complex medical history including severeCOPD, coronary disease status post extensive prior coronary stenting, and aorticstenosis status post SAVR. 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 Plan for the femoralapproach.Shanique Ramírez MD [facility] Name Value Range Interpretation Code Description Data Ximena rce(s) Supporting Document(s) ID Date Data Source [id number] 11/27/2020 10:28:46 AM EDT [facility] Name Value Range Interpretation Code Description Data Ximena rce(s) Supporting Document(s) &PDF [facility] LQPRJe6ySfXTEzPo61/IVUueAPPao9BzONucDAo6PAtgFNRaH9JbuGjbKLJQTuRlGgDULT1ZPRXFDKoI hdG [file] ICAgICAgICAgICAgICAgICAgICAgICAgICAgICAgICAgICAgICAgICAgICAgICAgICAgICAgICAgICAg ICAgICAgICAgICAgICAgICAgICAgICAgICAgICAgICAgICAgDQogICAgICAgICAgICAgICAgICAgICAg ICAgICAgICAgICAgICAgICAgICAgICAgICAgICAgIC AgICAgICAgICAgICAgICAgICAgICAgICAgICAgICAgICAgICAgICAgICAgICAgDQogICAgICAgICAgIC AgICAgICAgICAgICAgICAgICAgICAgICAgICAgICAgICAgICAgICAgICAgICAgICAgICAgICAgICAgIC AgICAgICAgICAgICAgICAgICAgICAgICAgICAgDQog ICAgICAgICAgICAgICAgICAgICAgICAgICAgICAgICAgICAgICAgICAgICAgICAgICAgICAgICAgICAg ICAgICAgICAgICAgICAgICAgICAgICAgICAgICAgICAgICAgICAgDQogICAgICAgICAgICAgICAgICAg ICAgICAgICAgICAgICAgICAgICAgICAgICAgICAgIC AgICAgICAgICAgICAgICAgICAgICAgICAgICAgICAgICAgICAgICAgICAgICAgICAgDQogICAgICAgIC AgICAgICAgICAgICAgICAgICAgICAgICAgICAgICAgICAgICAgICAgICAgICAgICAgICAgICAgICAgIC AgICAgICAgICAgICAgICAgICAgICAgICAgICAgICAg DQogICAgICAgICAgICAgICAgICAgICAgICAgICAgICAgICAgICAgICAgICAgICAgICAgICAgICAgICAg ICAgICAgICAgICAgICAgICAgICAgICAgICAgICAgICAgICAgICAgICAgDQogICAgICAgICAgICAgICAg ICAgICAgICAgICAgICAgICAgICAgICAgICAgICAgIC AgICAgICAgICAgICAgICAgICAgICAgICAgICAgICAgICAgICAgICAgICAgICAgICAgICAgDQogICAgIC AgICAgICAgICAgICAgICAgICAgICAgICAgICAgICAgICAgICAgICAgICAgICAgICAgICAgICAgICAgIC AgICAgICAgICAgICAgICAgICAgICAgICAgICAgICAg ICAgDQogICAgICAgICAgICAgICAgICAgICAgICAgICAgICAgICAgICAgICAgICAgICAgICAgICAgICAg HLAbDYAlKKCdMCNzQANcYANkPGOxPGDaLCWyXCTaYAMhULYcUCTpZSUfKDLlELf3K3grTVItXHQwEO2z DGy8Sp6+ICwDMxQkONV0vuYvtI4YLD2jr8HkZFqzLX Uww1YhEXw5WG4AFEBbKIyqZH3HONoxvs0STAItAZVgjYQPh5mlUkNjWPC1JONyHspbPK2JDDIqO5yuuq DhDRGhHLPSPAsiZHKSOC7UQdQoP9FfsZ12KRKNDs9+HZbnooLiMlwZCwY7ZCBgw9MkJLq8AE8OOTAaJM qgRV9EDMWegY6dVPflSR5NWdVpWNVgJHEFGiHcA10s xXWkQDh2X0PaPgMhMWAaAozpUAVdZFosFbKhIYAdVmIfYMfrPL1+ID4+MUcmAU7HJJttvzSgYCMgMk5C XGPfXIU4TILzwNKuFeAmNWBTUQwgTU4NoRHlTOZ8uO9kJTpaZYDyRPVwO0mMEmVsdMjlMO28uFhmnzOq bCBdDQo+Er0XJF4aw0HfXQr9dbAcRVfpDIN3YRwbMJ UdWVLaMWYmTOM0ZEP1RKDGKgNjHJPsHJVxZMcrLFMaUZMtir3NLEBsARXqIxdwEbYhORCkLHMwXVosPX OvCUL5EjMqKNKiKRDrNZ3UTpRmWXBhATSvSPTvHWHoJFJjej4VZARaCMHvSvV9QtUxMDTtJLExQGmbIU MyBJEtLzcnSKPsZFPiYF1YRaEvLOEsOPK7GkZxMPXu ZJRrhy0LHOFnXEJtSCBmTDCwPCFnRCMiIYlqOGDjSVN8SPk0NVPyUCMoGC1VVmLoCSXwBPL3XRKnKCAe XZXgfm4JQKRzUFVlXRt8DQNwCUYkFOXlLQwcBRKjVIF9KDPiFGJvQPMcGW2LOrMwRBGkMUybPoBvTQZu AOVnjn5EOVSfOOTcKtPmAYGwPXLnHVYpHVvaDCLoWJ MjPAN7XBOvJPNuOR2DAeYfXKIsUFH4SKRyIEJjQRZhbe5IUFCmQAIcPaE3QZSmJXTnBFLuFXckDZGfMU RhMMC0EVOiZSEnBK9TKuWwQXJgAHQyZFKiSKWqJUSrep7SHZRnOCRxAAZmDUUjQRGcBVZpBBkvAJKgKM A8OrX9ZBXrCARmRF9LVaPtSVPdGLIcJMFpVXCvZJYg pv0KDYRxNVYnWAM2IDWjRPYkHAPnFKylCKEmZNImFNZ9QZVgMNExAX9VRnHlOJGdEyZsNgOuLCLkAAFf ww7LDGCtWQRbXJcpGAGlLCUkWTHsBAm8sjBjsTPhRCp0SG6YP1FypsSjOhgIIn5Yk165LOE0IIAvDy0K X6yjQq8hQVLrZGKKXp8PIAh2U0WnUkO2QEZ1SVLaBM G7YYFzIeu1CcLyIxJgRMXgThG+HBqoKjUxPpbkISogBiD4MmMtTZYdGYHcBCKaVKKrWCIvWp5yQXNFRy 4+ANuusYAncSpgCAWSVhQ0RBdyEAcjEVTEQz6B ID Date Data Source [id number] 11/27/2020 09:35:23 AM EDT [facility] NT INFORMATIONPatient MRN Name Date of Age Gend*PT [id number] Minoo Velasquez III 1950 70 [facility] Ad[facility] Date/Time Visit ID Attending [id number] 11/27/2029 --- Callie Enamorado MD([id number]) EPI ID CSN Admitting Provider [id number] Callie Enamorado MD([id number])Patient has been seen and evaluated there is no change from the most recentevaluation Name Value Range Interpretation Code Description Data Ximena rce(s) Supporting Document(s) ID Date Data Source [id number] 11/27/2020 07:43:46 AM EDT [facility] Name Value Range Interpretation Code Description Data Ximena rce(s) Supporting Document(s) EKG [facility] HYWYVz3yLcHYAdKth6WzTvNiVEXsNM0vgvx2Y6J3qEAdW0BlnCCgb4slH2KkW8WrUDNoTEIALM2DbFCl jb2 [file] vzMmTRCePQLVEj4Gy458ULGgNDGEJna+GlmmyVZtfSaxILJULXy4IuSLJPGXT4T= ID Date Data Source [id number] 11/27/2020 09:11:10 AM EDT [facility] Name Value Range Interpretation Code Description Data Ximena rce(s) Supporting Document(s) SPECIMEN DESCRIPTION [facility] INFLUENZA A (NEG) [facility] INFLUENZA B (NEG) [facility] RSV (NEG) [facility] COMMENT [facility] THE [place] FDA HAS MADE THIS TEST AVAILABL JARRETER AN EMERGENCY USE AUTHORIZATION(EUA) FOR THE DETECTION AND/OR DIAGNOSISOF THE VIRUS THAT CAUSES COVID-19.PERFORMED AT [address] [place] [id number] COVID19 RESULT (NDET) [facility] THIS ASSAY AMPLIFIES AND DETECTSTHE TARG ET RNA USING REAL-TIME PCR.TESTING PERFORMED ON [employer] GENEXPERTNEGATIVE 2019_NCOV RT-PCR RESULTS DONOT PRECLUDE 2019_NCOV INFECTION ANDSHOULD NOT BE USED THE SOLE BASISFOR PATIENT MANAGEMENT DECISIONS. FIRST TEST [facility] EMPLOYED IN HLTHCARE [facility] SYMPTOMATIC [facility] DATE OF SYMPT ONSET [facility] HOSPITALIZED [facility] CONGREGATE CARE SET [facility] ID Date Data Source [id number] 11/27/2020 08:58:58 AM EDT [facility] Name Value Range Interpretation Code Description Data Ximena rce(s) Supporting Document(s) SODIUM 136 mmol/L (136-145) [facility] POTASSIUM 3.8 mmol/L (3.6-5.2) [facility] CHLORIDE 94 mmol/L (100-108) L [facility] CO2 32 mmol/L (22-31) H [facility] ANION GAP 10 mmol/L (7-16) [facility] UREA NITROGEN 44 mg/dL (7-24) H [facility] CREATININE 1.11 mg/dL (0.80-1.30) [facility] BUN/CREAT RATIO 39.6 RATIO (10.0-20.0) H [facility] GLUCOSE 279 mg/dL (70-99) H [facility] CALCIUM 11.4 mg/dL (8.4-10.2) H [facility] GFR >60 ml/min/1.73m2 (>59) [facility] GFR ( AMER) >60 ml/min/1.73m2 (>59) [facility] GFR INTERPRETATION [facility] --NORMAL KIDNEY FUNCTION OR MILD DISEASE - GFR >OR= 60CHRONIC KIDNEY DISEASE - GFR 15 - 59RENAL FAILURE - GFR <15 Est. GFR calculation based on the MDRDstudy equation, which assumes a steadystate for creatinine. Est. GFR should notbe used for medication dosing. ID Date Data Source [id number] 11/27/2020 08:37:43 AM EDT [facility] Name Value Range Interpretation Code Description Data Ximena rce(s) Supporting Document(s) WBC 17.0 10*3/uL (4.1-11.0) H [facility] RBC 5.39 10*6/uL (4.60-6.10) [facility] HGB 17.7 g/dL (13.5-18.0) [facility] HCT 51.4 % (41.0-53.0) [facility] PERFORMED AT [address] [place] [address] [place] [address] MCV 95.4 fL (80.0-95.0) H [facility] MCH 32.8 pg (27.0-32.0) H [facility] MCHC 34.4 g/dL (32.0-36.0) [facility] RDW 13.6 % (10.5-14.5) [facility] PLT 232 10*3/uL (150-450) [facility] MPV 8.0 fL (7.1-10.7) [facility] ID Date Data Source [id number] 11/27/2020 06:56:00 AM EDT [facility] Name Value Range Interpretation Code Description Data Ximena rce(s) Supporting Document(s) SARS coronavirus 2 RNA [Presence] in Res piratory specimen by GLORIA with probe detection NOT DETECTED [facility] This lab was reported by [facility]. ID Date Data Source [id number] 11/25/2020 04:48:38 PM EDT [facility] NT INFORMATIONPatient MRN Name Date of Age Gend*PT [id number] Minoo Velasquez III 1950 70 years M ---PT Location Admission Date/Time Visit ID Attending Provider --- --- --- --- EPI ID CSN Admitting Provider [id number] ---Cardiology Office VisitSubjectiveChief Complaint: Hospital follow-up visitHPI:This [...] arterial disease status post left femoral endarterectomy 34728. Iron deficiency anemia9. Vitamin B12 deficiencyWho presents to the office today for follow-up. He is accompanied by his wifeAlly. Patient was [facility] for shortness of breath for3 to 4 [...] HistoryProblem Relation Age of Onset Myocardial Infarction (VA) Father Healthy, No Significant History MotherSocial HistorySocioeconomic [...] Social Gatherings with Friends and Family: Attends [employer] Services: Active Member of Clubs or Organizations: [...] chest pain 25 tablet 1 nystatin (MYCOSTATIN) 264207 UNIT/ML suspension 0 omeprazole (PRILOSEC) 40 MG [...] 07/17/2019 31.50 cm3 Final Left [facility] 07/17/2019 3.60 cm Final LA/Ao Ratio 07/17/2019 [...] Chest pain Shortness of breath Atherosclerosis of [place] coronary artery of [place] heart Type 2 diabetes mellitus with complication [...] rce(s) Supporting Document(s) ID Date Data Source [id number] 11/22/2020 09:51:00 PM EDT [facility] ([facility], ) Name Value Range Interpretation Code Description Data Ximena rce(s) Supporting Document(s) ABG pH (Arterial) 7.403 units 7.350-7.450 Normal (applie s to non-numeric results) [facility] ([facility], ) ABG Partial Pressure Co2 38.1 mmHg 35.0-45.0 Normal (applies to non-numeric results) [facility] ([facility], ) ABG Partial Pressure O2 304.1 mmHg 75.0-100.0 Above high normal [facility] ([facility], ) ABG Total Co2 24.4 meq/L 23.0-31.0 Normal (applies to non-numeric re sults) [facility] ([facility], ) ABG Hco3 23.2 meq/L 22.0-26.0 Normal (applies to non-numeric resul ts) [facility] ([facility]) ABG Base Excess -1.2 Normal (applies to non-numeric results) [facility] ([facility]) ABG Standard Hco3 23.5 meq/L 22.0-26.0 Normal (applies to non- numeric results) [facility] ([facility]) ABG O2 Saturation 99.4 % 95.0-99.0 Above high normal [facility] ([facility]) ID Date Data Source [id number] 11/22/2020 05:55:00 PM EDT [facility] Name Value Range Interpretation Code Description Data Ximena rce(s) Supporting Document(s) SARS-CoV-2 (COVID 19) NEGATIVE - SARS-CoV-2 (COVID19) [facility] This lab was ordered by [facility] a nd reported by [facility]. ID Date Data Source [id number] 10/23/2020 09:54:00 [place] [address] PHONE: [phone] FAX: [phone] Name .................. : EVA Abdullahi Acct Number.................. : [id number] ROOM. ................. : MR Number ................... : [id number] Stay type ............. : O/P Discharge Date......... ... : 10/22/20 Admit Date ......... : 05/18/21 Admit Phys .................... : OSWALD MORLEY Date of ....... : 1950 Family Phys ................... : OSWALD MORLEY Phone .................. : [phone] Age ................................ : 69 Film# .................. .:[id number] Sex ................................. : M Unsigned transcriptions are preliminary reports and do not represent a medical or legal document RIBS UNILAT W/PA CXR LT [id number] COMPLETE:10/22/20 11:35 RLH 18423 Reason for Exam: L LATERAL RIB DEFORMITY, [...] for: OSWALD SHANIQUE via fax Copy for: [address] [place] [address] Page 1 of 1 Name Value Range Interpretation Code Description Data Ximena rce(s) Supporting Document(s) ID Date Data Source [id number] 10/08/2020 02:22:00 PM EDT [facility] Name Value Range Interpretation Code Description Data Ximena rce(s) Supporting Document(s) FVC-Pred 4.20 L [facility] ([facility], ) PDFReport Laboratory test result [facility] ([facility]) FVC-Pre 2.00 L [facility] ([facility]) FVC-%Pred-Pre 47 L [facility] ([facility]) Fev1-Pred 3.11 L [facility] ([facility]) FVC-LLN 3.32 L [facility] ([facility]) Fev1-Pre 0.74 L [facility] ([facility]) Fev1-%Pred-Pre 23 L [facility] ([facility]) Fev6-Pred 3.97 L [facility] ([facility]) Fev1-LLN 2.37 L [facility] ([facility]) Fev6-%Pred-Pre 50 L [facility] ([facility]) Fev6-Pre 2.00 L [facility] ([facility]) Fev6-LLN 3.11 L [facility] ([facility]) Ztv5snz-Gbk 37 % [facility] ([facility]) Erp6sfw-Xjhd 74 % [facility] ([facility]) Piw7vza-%Pred-Pre 50 % [facility] ([facility]) Gut5erf-LHK 65 % [facility] ([facility]) Hnu8kti-Ivdn 94 % [facility] ([facility]) Hmm2ukf-%Pred-Pre 105 % [facility] ([facility]) Lza9nmb-Eyk 100 % [facility] ([facility]) FEFMax-Pred 8.20 L/E/sec [facility] ([facility]) FEFMax-LLN 6.01 L/E/sec [facility] ([facility]) FEFMax-%Pred-Pre 18 L/E/sec [facility] ([facility]) FEFMax-Pre 1.52 L/E/sec [facility] ([facility]) Qjr0537-Axv 0.44 L/E/sec [facility] ([facility]) Gys2913-%Pred-Pre 17 L/E/sec [facility] ([facility]) Mvo3402-Ffcv 2.44 L/E/sec [facility] ([facility]) Gzz0003-MCO 0.93 L/E/sec [facility] ([facility]) ExpTime-Pre 5.15 sec [facility] ([facility]) Caw8hbi1-Ggcj 78 % [facility] ([facility]) Dok5ose2-%Pred-Pre 47 % [facility] ([facility]) Irq0ocz3-Qgx 37 % [facility] ([facility]) Xxu0qss3-MXF 69 % [facility] ([facility]) ID Date Data Source [id number] 08/27/2020 11:55:00 [place] [address] PHONE: [phone] FAX: [phone] Name .................. : VELASQUEZLazarus Ricci Number.................. : [id number] ROOM. ................. : MR Number ................... : [id number] Stay type ............. : O/P Discharge Date......... ... : 08/22/20 Admit Date ......... : 08/22/20 Admit Phys .................... : OSWALD [facility] Date of ....... : 1950 Family Phys ................... : OSWALD PEYMAN Phone .................. : [phone] Age ................................ : 69 Film# .................. .:[id number] Sex ................................. : M Unsigned transcriptions are preliminary reports and do not represent a medical or legal document CT THORAX W/O CONTRAST [id number] COMPLETE:08/22/20 19:01 JOAQUÍN 6522 (REASON FOR CHEST: [...] 08/27/20 11:55, KGG Page 1 of [address] [place] [address] PHONE: [phone] FAX: [phone] Name .................. : EVA Abdullahi Acct Number.................. : [id number] ROOM. ................. : MR Number ................... : [id number] Stay type ............. : O/P Discharge Date......... ... : 08/22/20 Admit Date ......... : 08/22/20 Admit Phys .................... : [facility] Date of ....... : 1950 Family Phys ................... : [facility] Phone .................. : [phone] Age ................................ : 69 Film# .................. .:[id number] Sex ................................. : M Unsigned transcriptions are preliminary reports and do not represent a medical or legal document CT THORAX W/O CONTRAST [id number] COMPLETE:08/22/20 19:01 JOAQUÍN 6522 (REASON FOR CHEST: SOB, NEOPLASM [facility] Transcribe Initials: EMMA , Transcribe Date: 08/23/20 23:49, Dictation Date: Copy for: OSWALD BAY via fax Copy for: 710 MED REC Page 2 of 2 Name Value Range Interpretation Code Description Data Ximena rce(s) Supporting Document(s) ID Date Data Source [id number] 07/23/2020 10:02:00 AM EST [facility] [address] [place] [address] [phone] NAME SEX PT STATUS ACCOUNT NUMBER Minoo Velasquez III REG REF [id number] ORDERING PHYSICIAN LOCATION MEDICAL RECORD NO. Karla Mohan US [id number] ATTENDING PHYSICIAN DATE OF DATE OF EXAM/TIME Shanique Ruano 1950 07/23/20947 TYPE / EXAM US ARTERIAL LEGS BILAT REASON FOR EXAM ATHSCL METLAKATLA ARTERIES OF EXTRM W/INTRMT SHAKA BILATERAL LEGS [...] Triphasic waveforms are seen in the left METAL MOULDER to this SFA. Monophasic waveforms are seen [...] rce(s) Supporting Document(s) ID Date Data Source [id number] 06/19/2020 09:29:00 AM EST [facility] ([facility] Name Value Range Interpretation Code Description Data Ximena rce(s) Supporting Document(s) Calcidiol [Mass/volume] in Serum or Plasma Laboratory test result [facility] ([facility] ID Date Data Source [id number] 06/19/2020 09:27:00 AM EST [facility] ([facility] Name Value Range Interpretation Code Description Data Ximena rce(s) Supporting Document(s) Prostate specific Ag [Mass/volume] in Serum or Plasma Laboratory test result [facility] ([facility] ) ID Date Data Source [id number] 06/19/2020 09:27:00 AM EST [facility] ([facility] Name Value Range Interpretation Code Description Data Ximena rce(s) Supporting Document(s) Thyrotropin [Units/volume] in Serum or Plasma Laboratory test result [facility] ([facility] ID Date Data Source [id number] 06/19/2020 09:26:00 AM EST [facility] ([facility] Name Value Range Interpretation Code Description Data Ximena rce(s) Supporting Document(s) Hemoglobin A1c/Hemoglobin.total in Blood 6.6 % 4.50-6.20 Above high normal [facility] ([facility] ID Date Data Source CD4/CD8 RATIO PROFILE [id number] 06/11/2020 12:00:00 AM EST eC W1 ([facility]) Name Value Range Interpretation Code Description Data Ximena rce(s) Supporting Document(s) Deprecated CD4 in Blood [phone] Abs CD4 Help er eCW1 ([facility]) 240 109-897 Abs CD8 Suppres eCW1 ([facility]) 36.2 30.8-58.5 %CD4 Pos Lymphs eCW1 ([facility]) 0.91 0.92-3.72 CD4/CD8 Ratio eCW1 ([facility]) 40.0 12.0-35.5 % CD8 Pos Lymph eCW1 ([facility]) 17.2 3.4-10.8 WBC eCW1 ([facility]) 4.20 4.14-5.80 RBC eCW1 ([facility]) 40.3 37.5-51.0 HCT eCW1 ([facility]) 13.8 13.0-17.7 HGB eCW1 ([facility]) 96 79-97 MCV eCW1 ([facility]) 32.9 26.6-33.0 MCH eCW1 ([facility]) 94 Not Estab. Neutrophils eCW1 ([facility]) 13.1 11.6-15.4 RDW eCW1 ([facility]) 256 150-450 Platelets eCW1 ([facility]) 34.2 31.5-35.7 MCHC eCW1 ([facility]) 0 Not Estab. Basophils eCW1 ([facility]) 2 Not Estab. Monocytes eCW1 ([facility]) 3 Not Estab. Lymphocytes eCW1 ([facility]) 0 Not Estab. Eosinophils eCW1 ([facility]) 0.6 0.7-3.1 ABS Lymphs eCW1 ([facility]) 0.0 0.0-0.4 ABS Eosinophils eCW1 ([facility]) 0.4 0.1-0.9 ABS Monocytes eCW1 ([facility]) 16.0 1.4-7.0 ABS Neutophils eCW1 ([facility]) 0.1 0.0-0.2 ABS Basophils eCW1 ([facility]) ID Date Data Source [id number] SEDIMENTATION RATE 06/11/2020 12:00:00 AM EST eC W1 ([facility]) Name Value Range Interpretation Code Description Data Ximena rce(s) Supporting Document(s) 30 0-20 ERYTHROCYTE SEDIMENTATION RATE eCW1 ([facility]) ID Date Data Source C REACTIVE PROTEIN QUANTITATIV (At [facility]) 06/11/2020 12:00 :00 AM EST eCW1 ([facility]) Name Value Range Interpretation Code Description Data Ximena rce(s) Supporting Document(s) 0.51 0.00-0.30 C REACTIVE PROTEIN QUANTI TATIV eCW1 ([facility]) ID Date Data Source Comprehensive Metabolic Profile (CMP) 06/11/2020 12:00:00 AM EST eCW1 ([facility]) Name Value Range Interpretation Code Description Data Ximena rce(s) Supporting Document(s) 119 70-100 GLUCOSE, FASTING eCW1 ([facility]) 14 7-18 BLOOD UREA NITROGEN eCW1 ([facility]) 137 136-145 SODIUM LEVEL eCW1 ([facility]) > 60.0 >49 GLOMERULAR FILTRATION RATE eCW 1 ([facility]) 0.97 0.70-1.30 CREATININE FOR GFR eCW1 ([facility]) 27 21-32 CARBON DIOXIDE LEVEL eCW1 ([facility]) 102 98-107 CHLORIDE LEVEL eCW1 ([facility]) 4.6 3.5-5.1 POTASSIUM SERUM eCW1 ([facility]) 9.8 8.8-10.2 CALCIUM LEVEL eCW1 ([facility]) 36 12-78 ALT/SGPT eCW1 ([facility]) 17 7-37 AST/SGOT eCW1 ([facility]) 0.3 0.2-1.0 BILIRUBIN,TOTAL eCW1 ([facility]) 81 45-117 ALKALINE PHOSPHATASE eCW1 ([facility]) 1.2 ALBUMIN/GLOBULIN RATIO eCW1 ([facility]) 3.9 3.2-5.2 ALBUMIN eCW1 ([facility]) 7.1 6.4-8.2 TOTAL PROTEIN eCW1 ([facility]) ID Date Data Source [id number] 03/28/2020 09:21:00 AM EDT [facility] ([facility] Name Value Range Interpretation Code Description Data Ximena rce(s) Supporting Document(s) IgG [Mass/volume] in Serum or Plasma 988 mg/dL [id number] [facility] ([facility] ID Date Data Source [id number] 03/28/2020 09:21:00 AM EDT [facility] ([facility] Name Value Range [...] [facility] SGPT/Alt 29 U/L 7-56 [facility] ([facility] Age 69 yrs [facility] ([facility] Non-Aa GFR Laboratory test result ME DENT ([facility] Afr Amer GFR Laboratory test result [facility] ([facility] Male GFR Interprentation 20-49 yrs >60 [...] >32 mL/min Normal ID Date Data Source [id number] 03/28/2020 09:21:00 AM EDT [facility] ([facility] Name Value Range Interpretation Code Description Data Ximena rce(s) Supporting Document(s) WBC 12.3 10^3/uL 4.2-11.0 Above high normal MED[facility] T ([facility] CBC W/Automated Diff Laboratory test result [facility] ([facility] COMPLETE BLOOD COUNT RBC 4.34 10^6/uL 4.50-6.30 Below low normal [facility] ([facility] Hemoglobin 14.3 g/dL 14.0-16.0 [facility] MCV 96.3 fL 80.0-94.0 Above high normal [facility] ([facility] Hematocrit 41.8 % 41.0-51.0 [facility] ([facility] MCH 32.9 pg 27.0-34.0 [facility] ([facility] MCHC 34.2 g/dL 31.0-36.0 [facility] ([facility] RDW 12.9 % 11.5-14.8 [facility] ([facility] Neut 71.8 % 37.0-80.0 [facility] MPV 8.8 fL 7.4-10.4 [facility] ([facility] Platelets 319 10^3/uL 150-450 [facility] Eos 2.0 % 0.0-7.0 [facility] ([facility] Victoria 7.7 % 3.0-8.0 [facility] ([facility] Lymph 16.8 % 25.0-40.0 Below low normal [facility] ( [facility] Baso 0.3 % 0.0-2.0 [facility] ([facility] %Ig 1.4 % 0.0-0.0 Above high normal [facility] ([facility] %NRBC 0.0 % 0.0-0.0 [facility] ([facility] #Neut 8.83 10^3/uL 2.00-6.90 Above high normal [facility] T ([facility] #Eos 0.24 10^3/uL 0.00-0.70 [facility] ([facility] #Lymph 2.06 10^3/uL 0.60-3.40 [facility] ([facility] #Victoria 0.95 10^3/uL 0.00-0.90 Above high normal [facility] ([facility] #Baso 0.04 10^3/uL 0.00-0.20 [facility] ([facility] #Ig 0.17 10^3/uL 0.00-0.10 Above high normal [facility] ([facility] #NRBC 0.00 10^3/uL 0.00-0.00 [facility] ([facility] Manual Diff Laboratory test result M EDBARBARA ([facility] RBC Morph Laboratory test result ME CARLOS ALBERTO ([facility] ID Date Data Source [id number] 03/30/2020 02:26:00 PM EDT [facility] Name Value Range Interpretation Code Description Data Ximena rce(s) Supporting Document(s) IgG [Mass/volume] in Serum or Plasma 988 mg/dL [id number] [facility] ID Date Data Source [id number] 03/28/2020 10:43:00 AM EDT [facility] Name Value Range Interpretation Code Description Data Ximena rce(s) Supporting Document(s) COMPREHENSIVE METABOLIC PANEL [facility] COMPREHENSIVE METABOLIC PANEL Sodium [Moles/volume] in Serum or Plasma 138 mEq/L 134 - 153 [facility] Potassium [Moles/volume] in Serum or Plasma 4.3 mEq/L 3.6 - 5.0 [facility] Chloride [Moles/volume] in Serum or Plasma 98 mEq/L 98 - 107 [facility] Carbon dioxide, total [Moles/volume] in Serum or Plasma 30 MEQ/L 22 - 30 [facility] Glucose [Mass/volume] in Serum or Plasma 72 MG/DL 65 - 110 [facility] BUN 17 MG/DL 7 - 21 Health system Creatinine [Mass/volume] in Serum or Plasma 1.0 MG/DL 0.7 - 1.5 [facility] BUN/CREAT 17 8 - 27 Health system Protein [Mass/volume] in Serum or Plasma 7.4 G/DL 6.3 - 8.2 [facility] Albumin [Mass/volume] in Serum or Plasma 4.6 G/DL 3.9 - 5.0 [facility] Globulin [Mass/volume] in Serum by calculation 2.8 GM/DL 2.4 - 3.2 [facility] A/G RATIO 1.6 0.8 - 2.0 Health system Calcium [Mass/volume] in Serum or Plasma 10.0 MG/DL 8.4 - 10.2 [facility] Bilirubin.total [Mass/volume] in Serum or Plasma <0.7 MG/DL 0.2 - 1.3 [facility] Alkaline phosphatase [Enzymatic activity/volume] in Serum or Plasma 86 U/L 38 - 126 [facility] Aspartate aminotransferase [Enzymatic activity/volume] in Serum or Plasma 26 U/L 5 - 40 [facility] Alanine aminotransferase [Enzymatic activity/volume] in Seru m or Plasma 29 U/L 7 - 56 [facility] Anion gap 3 in Serum or Plasma 10.0 mmol/L 8.0 - 16.0 [facility] AGE 69 yrs [facility] NON-AA GFR >60 mL/min [facility] ital AFR AMER GFR >60 mL/min [facility] Ho spital Male GFR In terprentation 20-49 [...] >32 mL/min Normal ID Date Data Source [id number] 03/28/2020 09:44:00 AM EDT [facility] Name Value Range Interpretation Code Description Data Ximena rce(s) Supporting Document(s) CBC W/AUTOMATED DIFF [facility] COMPLETE BLOOD COUNT Leukocytes [#/volume] in Blood by Automated count 12.3 10^3/uL 4.2 - 11.0 H [facility] Erythrocytes [#/volume] in Blood by Automated count 4.34 10^6/uL 4. 50 - 6.30 L [facility] Hemoglobin [Mass/volume] in Blood 14.3 g/dL 14.0 - 16.0 [facility] Hematocrit [Volume Fraction] of Blood by Automated count 41.8 % 4 1.0 - 51.0 [facility] Erythrocyte mean corpuscular volume [Entitic volume] by Auto mated count 96.3 fL 80.0 - 94.0 H [facility] Erythrocyte mean corpuscular hemoglobin [Entitic mass] by Automated count 32.9 pg 27.0 - 34.0 [facility] Erythrocyte mean corpuscular hemoglobin concentration [Mass/volume] by Automated count 34.2 g/dL 31.0 - 36.0 [facility] Erythrocyte distribution width [Ratio] by Automated count 12.9 % 11.5 - 14.8 [facility] Platelets [#/volume] in Blood by Automated count 319 10^3/uL 150 - 45 0 [facility] Platelet mean volume [Entitic volume] in Blood by Automated count 8.8 fL 7.4 - 10.4 [facility] Neutrophils/100 leukocytes in Blood by Automated count 71.8 % 37. 0 - 80.0 [facility] Lymphocytes/100 leukocytes in Blood by Manual count 16.8 % 25.0 - 40.0 L [facility] Monocytes/100 leukocytes in Blood by Automated count 7.7 % 3.0 - 8.0 [facility] Eosinophils/100 leukocytes in Blood by Automated count 2.0 % 0.0 - 7.0 [facility] Basophils/100 leukocytes in Blood by Automated count 0.3 % 0.0 - 2.0 [facility] %IG 1.4 % 0.0 - 0.0 H [facility] al %NRBC 0.0 % 0.0 - 0.0 [facility] al Neutrophils [#/volume] in Blood by Automated count 8.83 10^3/uL 2.00 - 6.90 H [facility] Lymphocytes [#/volume] in Blood by Automated count 2.06 10^3/uL 0.60 - 3.40 [facility] Monocytes [#/volume] in Blood by Automated count 0.95 10^3/uL 0.00 - 0.90 H [facility] Eosinophils [#/volume] in Blood by Automated count 0.24 10^3/uL 0.00 - 0.70 [facility] Basophils [#/volume] in Blood by Automated count 0.04 10^3/uL 0.00 - 0.20 [facility] #IG 0.17 10^3/uL 0.00 - 0.10 H [facility] #NRBC 0.00 10^3/uL 0.00 - 0.00 [facility] MANUAL DIFF NOT INDICATED [facility] RBC MORPH NOT INDICATED [facility] sp[facility] ID Date Data Source [id number] 03/19/2020 09:52:00 AM EDT [facility] ([facility] Name Value Range Interpretation Code Description Data Ximena rce(s) Supporting Document(s) Test Code Change Laboratory test result [facility] ([facility] SRC:SPUTUM ID Date Data Source [id number] 03/19/2020 09:52:00 AM EDT [facility] ([facility] Name Value Range Interpretation Code Description Data Ximena rce(s) Supporting Document(s) Microscopic observation [Identifier] in Sputum by Gram stain Laboratory test result [facility] ([facility] SRC:SPUTUM [facility] SRC:SPUTUM ID Date Data Source [id number] 03/19/2020 09:52:00 AM EDT [facility] ([facility] Name Value Range Interpretation Code Description Data Ximena rce(s) Supporting Document(s) Bacteria identified in Unspecified specimen by Respira tory culture Laboratory test result [facility] ([facility] ID Date Data Source [id number] 03/19/2020 09:35:00 AM EDT [facility] ([facility] [...] completed Patient is a former smoker [facility] ([facility] ) Smoking 02/28/2021 12:00:00 AM EDT Patient is a former smoker completed Patient is a former smoker [facility] ([facility] ) Smoking 02/18/2021 12:00:00 AM EDT Former Smoker completed Former Smoker eCW1 ([facility]) Smoking 02/18/2021 12:00:00 AM EDT Former Smoker completed Former Smoker eCW1 ([facility]) Smoking 02/18/2021 12:00:00 AM EDT Former Smoker completed Former Smoker eCW1 ([facility]) Alcohol intake 01/29/2021 12:00:00 AM EDT Current non-d rama of alcohol (finding) completed Current non-drinker of alcohol (finding) [facility] Alcohol intake 12/26/2020 12:00:00 AM EDT Current non-d rama of alcohol (finding) completed Current non-drinker of alcohol (finding) [facility] Alcohol intake 12/23/2020 12:00:00 AM EDT Current non-d rama of alcohol (finding) completed Current non-drinker of alcohol (finding) [facility] Alcohol intake 12/10/2020 12:00:00 AM EDT Current non-d rama of alcohol (finding) completed Current non-drinker of alcohol (finding) [facility] Alcohol intake 11/27/2020 12:00:00 AM EDT Current non-d rama of alcohol (finding) completed Current non-drinker of alcohol (finding) [facility] Alcohol intake 11/25/2020 12:00:00 AM EDT Current non-d rama of alcohol (finding) completed Current non-drinker of alcohol (finding) [facility] Smoking 06/11/2020 12:00:00 AM EST Former Smoker completed Former Smoker eCW1 ([facility]) Smoking 06/11/2020 12:00:00 AM EST Former Smoker completed Former Smoker eCW1 ([facility]) Vital Signs ID Date Data Source UNK Name Value Range Interpretation Code Description Data Source(s) Systolic blood pressure 141 mm[Hg] 141 mm[Hg] [facility] Diastolic blood pressure 85 mm[Hg] 85 mm[Hg] [facility] ([facility]) Heart rate 96 /min 96 /min [facility] ([facility]) Body temperature 98.6 [degF] 98.6 [degF] [facility] ([facility]) Body height 68 [in_i] 68 [in_i] [facility] ([facility]) 5'8" Body weight 148.25 [lb_av] 148.25 [lb_av] [facility] ([facility]) Body mass index (BMI) [Ratio] 22.5 kg/m2 22.5 k g/m2 [facility] ([facility]) [place] body weight 154 [lb_av] 154 [lb_av] [facility] ([facility]) Body weight 67.246 kg 67.246 kg [facility] ([facility]) Body surface area Derived from formula 1.80 m2 1.80 m2 [facility] ([facility]) Body temperature 97.6 [degF] 97.6 [degF] [facility] Respiratory rate 20 /min 20 /min [facility] ( [facility] Body weight 147.00 [lb_av] 147.00 [lb_av] [facility] T ([facility] [place] body weight 154 [lb_av] 154 [lb_av] [facility] T ([facility] Oxygen saturation in Arterial blood by Pulse oximetry 97 % 97 % [facility] ([facility] (On O2 @ 2 LPM [place]) Systolic blood pressure 124 mm[Hg] 124 mm[Hg] M EDENT ([facility] Diastolic blood pressure 84 mm[Hg] 84 mm[Hg] [facility] Heart rate 105 /min 105 /min [facility] ([facility] Body height 68 [in_i] 68 [in_i] [facility] 5'8" Body mass index (BMI) [Ratio] 22.3 kg/m2 22.3 k g/m2 [facility] ([facility] [place] body weight 154 [lb_av] 154 [lb_av] [facility] ([facility]) Body weight 66.679 kg 66.679 kg [facility] ([facility]) Body surface area Derived from formula 1.79 m2 1.79 m2 [facility] ([facility]) Systolic blood pressure 118 mm[Hg] 118 mm[Hg] M EDENT ([facility]) Diastolic blood pressure 72 mm[Hg] 72 mm[Hg] [facility] ([facility]) Heart rate 88 /min 88 /min [facility] ([facility]) Oxygen saturation in Arterial blood by Pulse oximetry 91 % 91 % [facility] ([facility]) Room Air Body height 68 [in_i] 68 [in_i] [facility] ([facility]) 5'8" Body weight 147.00 [lb_av] 147.00 [lb_av] [facility] ([facility]) Body mass index (BMI) [Ratio] 22.3 kg/m2 22.3 k g/m2 [facility] ([facility]) Body weight 150.00 [lb_av] 150.00 [lb_av] [facility] ([facility] Systolic blood pressure 137 mm[Hg] 137 mm[Hg] M [facility] ([facility]) Diastolic blood pressure 72 mm[Hg] 72 mm[Hg] [facility] ([facility]) Heart rate 85 /min 85 /min [facility] ([facility] Body mass index (BMI) [Ratio] 23.0 kg/m2 23.0 k g/m2 [facility] ([facility] Systolic blood pressure 130 mm[Hg] 130 mm[Hg] M EDENT ([facility] Body temperature 97.6 [degF] 97.6 [degF] [facility] ([facility] Heart rate 85 /min 85 /min [facility] ([facility] Respiratory rate 16 /min 16 /min [facility] ( [facility] Body height 68 [in_i] 68 [in_i] [facility] ([facility] 5'8" Body weight 151.00 [lb_av] 151.00 [lb_av] [facility] T ([facility] [place] body weight 154 [lb_av] 154 [lb_av] [facility] T ([facility] Diastolic blood pressure 80 mm[Hg] 80 mm[Hg] [facility] ([facility] Oxygen saturation in Arterial blood by Pulse oximetry 93 % 93 % GERARDO ([facility] (Room [facility]) Body weight 143 [lb_av] 143 [lb_av] eCW1 ([facility]) Body weight 64.86 kg 64.86 kg eCW1 ([facility]) Body height 69 [in_i] 69 [in_i] eCW1 ([facility]) Body mass index (BMI) [Ratio] 21.12 kg/m2 21.12 kg/m2 eCW1 ([facility]) Heart rate 84 /min 84 /min eCW1 ([facility]) Respiratory rate 23 /min 23 /min eCW1 ([facility]) Body temperature 96.2 [degF] 96.2 [degF] eCW1 ( [facility]) Systolic blood pressure 146 mm[Hg] 146 mm[Hg] e CW1 ([facility]) Diastolic blood pressure 84 mm[Hg] 84 mm[Hg] eCW1 ([facility]) Systolic blood pressure 106 mm[Hg] 106 mm[Hg] [facility] Diastolic blood pressure 70 mm[Hg] 70 mm[Hg] [facility] Heart rate 80 /min 80 /min [facility] Body temperature 35.[address] [facility] Respiratory rate 20 /min 20 /min [facility] Body height 172.7 cm 172.7 cm [facility] Body weight 66.225 kg 66.225 kg [facility] Body mass index (BMI) [Ratio] 22.20 kg/m2 22.20 kg/m2 [facility] Oxygen saturation in Arterial blood by Pulse oximetry 92 % 92 % [facility] Systolic blood pressure 123 mm[Hg] 123 mm[Hg] [facility] Diastolic blood pressure 69 mm[Hg] 69 mm[Hg] [facility] Heart rate 90 /min 90 /min [facility] Body temperature 37.[address] [facility] Respiratory rate 18 /min 18 /min [facility] Oxygen saturation in Arterial blood by Pulse oximetry 93 % 93 % [facility] Body weight 64.592 kg 64.592 kg [facility] Body mass index (BMI) [Ratio] 21.65 kg/m2 21.65 kg/m2 [facility] Body height 172.7 cm 172.7 cm [facility] Systolic blood pressure 98 mm[Hg] 98 mm[Hg] [facility] Diastolic blood pressure 62 mm[Hg] 62 mm[Hg] [facility] Body weight 62.596 kg 62.596 kg [facility] Body mass index (BMI) [Ratio] 20.98 kg/m2 20.98 kg/m2 [facility] Oxygen saturation in Arterial blood by Pulse oximetry 92 % 92 % [facility] Heart rate 88 /min 88 /min [facility] Body height 172.7 cm 172.7 cm [facility] Systolic blood pressure 118 mm[Hg] 118 mm[Hg] [facility] Diastolic blood pressure 70 mm[Hg] 70 mm[Hg] [facility] Heart rate 104 /min 104 /min [facility] Body temperature 36.[address] [facility] Respiratory rate 20 /min 20 /min [facility] Body weight 60.328 kg 60.328 kg [facility] Body mass index (BMI) [Ratio] 20.22 kg/m2 20.22 kg/m2 [facility] Oxygen saturation in Arterial blood by Pulse oximetry 94 % 94 % [facility] 2l Systolic blood pressure 107 mm[Hg] 107 mm[Hg] [facility] Diastolic blood pressure 72 mm[Hg] 72 mm[Hg] [facility] Heart rate 89 /min 89 /min [facility] Body temperature 36.[address] [facility] Respiratory rate 18 /min 18 /min [facility] Oxygen saturation in Arterial blood by Pulse oximetry 98 % 98 % [facility] Systolic blood pressure 122 mm[Hg] 122 mm[Hg] [facility] Diastolic blood pressure 70 mm[Hg] 70 mm[Hg] [facility] Heart rate 116 /min 116 /min [facility] Body temperature [address] [facility] Body weight 62.596 kg 62.596 kg [facility] Body mass index (BMI) [Ratio] 20.98 kg/m2 20.98 kg/m2 [facility] Oxygen saturation in Arterial blood by Pulse oximetry 94 % 94 % [facility] 2l Body weight 139.00 [lb_av] 139.00 [lb_av] [facility] T ([facility], ) Body mass index (BMI) [Ratio] 21.1 kg/m2 21.1 k g/m2 [facility] ([facility], ) Systolic blood pressure 120 mm[Hg] 120 mm[Hg] Michael CUELLAR ([facility], ) [place] body weight 154 [lb_av] 154 [lb_av] [facility] T ([facility], ) Body weight 63.050 kg 63.050 kg [facility] Body surface area Derived from formula 1.75 m2 1.75 m2 [facility] ([facility]) Body height 68 [in_i] 68 [in_i] [facility] 5'8" Diastolic blood pressure 70 mm[Hg] 70 mm[Hg] [facility] ([facility]) Heart rate 102 /min 102 /min [facility] ([facility]) Oxygen saturation in Arterial blood by Pulse oximetry 952 % 952 % [facility] ([facility]) Body temperature 97.4 [degF] 97.4 [degF] [facility] ([facility]) Oxygen saturation in Arterial blood by Pulse oximetry 952 % 952 % [facility] ([facility]) Body temperature 97.4 [degF] 97.4 [degF] [facility] ([facility]) Body height 68 [in_i] 68 [in_i] [facility] ([facility]) 5'8" Body weight 139.00 [lb_av] 139.00 [lb_av] [facility] T ([facility]) Body mass index (BMI) [Ratio] 21.1 kg/m2 21.1 k g/m2 [facility] ([facility]) [place] body weight 154 [lb_av] 154 [lb_av] [facility] ([facility]) Body weight 63.050 kg 63.050 kg [facility] ([facility]) Body surface area Derived from formula 1.75 m2 1.75 m2 [facility] ([facility]) Body height 68 [in_i] 68 [in_i] [facility] ([facility]) 5'8" Body weight 145.00 [lb_av] 145.00 [lb_av] [facility] T ([facility]) Body mass index (BMI) [Ratio] 22.0 kg/m2 22.0 k g/m2 [facility] ([facility]) [place] body weight 154 [lb_av] 154 [lb_av] [facility] ([facility]) Body weight 65.772 kg 65.772 kg [facility] ([facility]) Body surface area Derived from formula 1.78 m2 1.78 m2 [facility] ([facility]) Body weight 145.00 [lb_av] 145.00 [lb_av] [facility] T ([facility]) Body height 68 [in_i] 68 [in_i] [facility] ([facility]) 5'8" Body mass index (BMI) [Ratio] 22.0 kg/m2 22.0 k g/m2 [facility] ([facility]) [place] body weight 154 [lb_av] 154 [lb_av] [facility] T ([facility]) Body weight 65.772 kg 65.772 kg [facility] ([facility]) Body surface area Derived from formula 1.78 m2 1.78 m2 [facility] Body weight 144.00 [lb_av] 144.00 [lb_av] MEDEN [...] pressure 132 mm[Hg] 132 mm[Hg] M [facility] ([facility]) Diastolic blood pressure 86 mm[Hg] 86 mm[Hg] [facility] ([facility]) Body height 68 [in_i] 68 [in_i] [facility] ([facility]) 5'8" Body weight 145.50 [lb_av] 145.50 [lb_av] [facility] T ([facility]) Body mass index (BMI) [Ratio] 22.1 kg/m2 22.1 k g/m2 [facility] ([facility]) [place] body weight 154 [lb_av] 154 [lb_av] [facility] ([facility]) Body weight 65.999 kg 65.999 kg [facility] ([facility]) Body surface area Derived from formula 1.79 m2 1.79 m2 [facility] ([facility]) Systolic blood pressure 128 mm[Hg] 128 mm[Hg] M [facility] ([facility]) Diastolic blood pressure 78 mm[Hg] 78 mm[Hg] [facility] ([facility]) Body height 68 [in_i] 68 [in_i] [facility] ([facility]) 5'8" Body weight 147.12 [lb_av] 147.12 [lb_av] [facility] T ([facility]) Body mass index (BMI) [Ratio] 22.4 kg/m2 22.4 k g/m2 [facility] ([facility]) [place] body weight 154 [lb_av] 154 [lb_av] [facility] T ([facility]) Body weight 66.736 kg 66.736 kg [facility] ([facility]) Body surface area Derived from formula 1.79 m2 1.79 m2 [facility] ([facility]) Body mass index (BMI) [Ratio] 22.7 kg/m2 22.7 k g/m2 [facility] ([facility]) [place] body weight 154 [lb_av] 154 [lb_av] [facility] T ([facility]) Body surface area Derived from formula 1.80 m2 1.80 m2 [facility] ([facility]) Body weight 67.586 kg 67.586 kg [facility] ([facility]) Systolic blood pressure 110 mm[Hg] 110 mm[Hg] [facility] Diastolic blood pressure 90 mm[Hg] 90 mm[Hg] [facility] ([facility]) Heart rate 88 /min 88 /min [facility] ([facility]) Oxygen saturation in Arterial blood by Pulse oximetry 962.5 % 962.5 % [facility], ) Body temperature 96.8 [degF] 96.8 [degF] [facility] ([facility]) Body height 68 [in_i] 68 [in_i] [facility] ([facility], ) 5'8" Body weight 149.00 [lb_av] 149.00 [lb_av] MEDEN T ([facility], ) Systolic blood pressure 128 mm[Hg] 128 mm[Hg] M EDENT ([facility] Diastolic blood pressure 86 mm[Hg] 86 mm[Hg] [facility] ([facility] Body temperature 98.1 [degF] 98.1 [degF] [facility] ([facility] Heart rate 96 /min 96 /min [facility] ([facility] Respiratory rate 20 /min 20 /min [facility] ( [facility] Body height 68 [in_i] 68 [in_i] [facility] ([facility] 5'8" Body weight 154.00 [lb_av] 154.00 [lb_av] MED[facility] T ([facility] [place] body weight 154 [lb_av] 154 [lb_av] MED[facility] T ([facility] Body mass index (BMI) [Ratio] 23.4 kg/m2 23.4 k g/m2 [facility] ([facility] Oxygen saturation in Arterial blood by Pulse oximetry 98 % 98 % [facility] ([facility] Body weight 156 [lb_av] 156 [lb_av] eCW1 ([facility]) Body height 69 [in_i] 69 [in_i] eCW1 ([facility]) Body mass index (BMI) [Ratio] 23.03 kg/m2 23.03 kg/m2 eCW1 ([facility]) Heart rate 91 /min 91 /min eCW1 ([facility]) Respiratory rate 28 /min 28 /min eCW1 ([facility]) Body temperature 99.1 [degF] 99.1 [degF] eCW1 ( [facility]) Systolic blood pressure 142 mm[Hg] 142 mm[Hg] e CW1 ([facility]) Diastolic blood pressure 86 mm[Hg] 86 mm[Hg] eCW1 ([facility]) Body height 68 [in_i] 68 [in_i] [facility] ([facility] 5'8" Systolic blood pressure 130 mm[Hg] 130 mm[Hg] M EDENT ([facility] Diastolic blood pressure 80 mm[Hg] 80 mm[Hg] [facility] ([facility] Body temperature 97.3 [degF] 97.3 [degF] [facility] ([facility] Heart rate 80 /min 80 /min [facility] ([facility] Respiratory rate 20 /min 20 /min [facility] ( [facility] Body weight 159.00 [lb_av] 159.00 [lb_av] MEDEN T ([facility] [place] body weight 154 [lb_av] 154 [lb_av] MED[facility] T ([facility] Body mass index (BMI) [Ratio] 24.2 kg/m2 24.2 k g/m2 [facility] ([facility] Oxygen saturation in Arterial blood by Pulse oximetry 97 % 97 % [facility] ([facility] (On O2 @ 2 LPM [place]) Systolic blood pressure 110 mm[Hg] 110 mm[Hg] M EDENT ([facility], ) Heart rate 95 /min 95 /min [facility] Oxygen saturation in Arterial blood by Pulse oximetry 972.5 % 972.5 % [facility], ) Body temperature 97.0 [degF] 97.0 [degF] [facility] ([facility], ) Body height 68 [in_i] 68 [in_i] [facility] ([facility], ) 5'8" Body weight 159.00 [lb_av] 159.00 [lb_av] MED[facility] T ([facility]) Body mass index (BMI) [Ratio] 24.2 kg/m2 24.2 k g/m2 [facility] ([facility]) [place] body weight 154 [lb_av] 154 [lb_av] [facility] Body weight 72.122 kg 72.122 kg [facility] ([facility]) Body surface area Derived from formula 1.85 m2 1.85 m2 [facility] ([facility]) Diastolic blood pressure 70 mm[Hg] 70 mm[Hg] [facility] ([facility]) Patient Treatment Plan of Care Planned Activity Planned Date Details Description Data Source (s) Phenazopyridine hydrochloride 100 MG Oral Tablet [Pyri dium] 03/27/2021 12:00:00 AM EDT eCW (Formerly [facility], [facility]) Tamsulosin hydrochloride 0.4 MG Oral Capsule 02/21/2021 12:00:00 AM EDT eCW ([facility], [facility]) Tamsulosin hydrochloride 0.4 MG Oral Capsule 02/21/2021 12:00:00 AM EDT eCW1 ([facility], [facility]) Tamsulosin hydrochloride 0.4 MG Oral Capsule 02/21/2021 12:00:00 AM EDT eCW1 ([facility], [facility]) Tamsulosin hydrochloride 0.4 MG Oral Capsule 02/18/2021 12:00:00 AM EDT eCW1 ([facility], [facility]) Tamsulosin hydrochloride 0.4 MG Oral Capsule 02/18/2021 12:00:00 AM EDT eCW1 ([facility], [facility]) Tamsulosin hydrochloride 0.4 MG Oral Capsule 02/18/2021 12:00:00 AM EDT eCW1 ([facility], [facility]) Levothyroxine Sodium 0.05 MG Oral Tablet 01/10/2021 12:00:00 AM EDT [facility] glimepiride 2 MG Oral Tablet 01/02/2021 12:00:00 AM EDT [facility] Bisacodyl 10 MG Rectal Suppository 12/28/2020 09:00:00 AM EDT [facility] Sulfamethoxazole 800 MG / Trimethoprim 160 MG Oral Tab let 12/27/2020 09:00:[address] [facility] POLYETHYLENE GLYCOL 3350 142 MG/ML Oral Solution 12/27/2020 07:00:0 0 AM EDT [facility] clopidogrel 75 MG Oral Tablet 12/26/2020 12:00:00 AM EDT [facility] normal saline flush 0.9 % injection 3 mL 12/25/2020 09:00:00 PM EDT [facility] ondansetron (ZOFRAN) injection 4 mg 12/25/2020 04:44:33 PM EDT [facility] acetaminophen (TYLENOL) 325 MG tablet 650 mg 12/25/2020 04:44:33 PM EDT [facility] 2 ML Metoclopramide 5 MG/ML Prefilled Syringe 12/25/2020 04:44:32 P M EDT [facility] Nitroglycerin 0.4 MG Sublingual Tablet 12/25/2020 02:38:07 PM EDT [facility] sodium chloride 0.9% (NS) infusion 12/25/2020 11:00:00 AM EDT [facility] clopidogrel 75 MG Oral Tablet 12/10/2020 12:00:00 AM EDT [facility] Furosemide 20 MG Oral Tablet 12/10/2020 12:00:00 AM EDT [facility] normal saline flush 0.9 % injection 3 mL 11/27/2020 02:00:00 PM EDT [facility] Magnesium Chloride 0.08123 MEQ/ML / Pota ssium Chloride 0.0497 MEQ/ML / Sodium Acetate 0.0163 MEQ/ML / Sodium Chloride 0.0899 MEQ/ML / Sodium gluconate 5.02 MG/ML Injectable Solution [Normosol-R] 11/27/2020 01:00:00 PM EDT [facility] ondansetron (ZOFRAN) injection 4 mg 11/27/2020 12:19:32 PM EDT [facility] Hydralazine Hydrochloride 20 MG/ML Injectable Solution 11/27/2020 12:19:[address] [facility] Albuterol 0.83 MG/ML Inhalant Solution 11/27/2020 12:19:32 PM EDT [facility] Nitroglycerin 0.4 MG Sublingual Tablet 11/25/2020 12:00:00 AM EDT [facility] clopidogrel 75 MG Oral Tablet 12/04/2019 12:00:00 AM EDT [facility] Nitroglycerin 0.4 MG Sublingual Tablet 11/22/2018 12:00:00 AM EDT [facility] gabapentin 100 MG Oral Capsule 10/27/2017 12:00:00 AM EDT [facility] 24 HR Diltiazem Hydrochloride 240 MG Extended Release Oral Capsule 09/28/2017 12:00:[address] [facility] Sulfamethoxazole 800 MG / Trimethoprim 160 MG Oral Tab let 08/27/2016 12:00:[address] [facility] Tiotropium [place] Monohydrate (SPIRIVA RESPIMAT IN) [facility] empagliflozin 25 MG Oral Tablet [facility] ibandronic acid 150 MG Oral Tablet [facility] 30 ACTUAT aclidinium bromide 0.4 MG/ACTUAT Dry Powder Inhaler [facility] formoterol fumarate 0.01 MG/ML Inhalant Solution [facility] carvedilol 6.25 MG Oral Tablet [facility] torsemide 20 MG Oral Tablet [facility] Ranitidine 300 MG Oral Tablet [facility] Clotrimazole 10 MG Oral Lozenge [facility] Immune Globulin, Human, (HIZENTRA) 10 GM/50ML SOLN [facility] glimepiride 4 MG Oral Tablet [facility] Calcium Citrate 950 MG Oral Tablet [facility] metaxalone 800 MG Oral Tablet [facility] 12 HR Guaifenesin 600 MG Extended Release Oral Tablet [facility] pitavastatin 2 MG Oral Tablet [facility]
[2021-05-06 09:53] LABS: BLOOD UREA NITROGEN 22 MG/DL (7-18); CARBON DIOXIDE LEVEL 26 MEQ/L (21-32); CHLORIDE LEVEL 101 MEQ/L (98-107); CREATININE FOR GFR 0.94 MG/DL (0.70-1.30); GLOMERULAR FILTRATION RATE > 60.0 (>49); GLUCOSE, FASTING 75 MG/DL (70-100); NT-PRO BNP 989 PG/ML (<125); POTASSIUM SERUM 3.9 MEQ/L (3.5-5.1); SODIUM LEVEL 134 MEQ/L (136-145)
[2021-05-06] MEDS ORDERED: cefTRIAXone SOD 1 GM in D5W MINI-BAG PLUS 50 ML IV ONE (10:30)
[2021-05-06] MEDS ORDERED: HOME MED LIST COMPLETE! XX SCH (10:40)
[2021-05-06] MEDS ORDERED: AZITHROMYCIN INJ 500 MG, VIAL MATE ADAPTER 1 EACH in NS 250 ML IV ONE (11:00)
--- OUTSIDE RECORDS SUMMARY | 2021-05-06 11:12 | CCD ---
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 Name Role Phone KETTY ESCALANTE MD Unavailable [...] T Henri PA Unavailable Unavailable Overholt, T Herni PA Unavailable Unavailable Overholt, T Henri PA [...] D Shanique PA Unavailable Unavailable Oswald, D Sahnique PA Unavailable Unavailable Oswald, D Shanique PA [...] Unavailable Unavailable SOBIAFco MERCER MD Unavailable Unavailable SOIBAFco MERCER MD Unavailable Unavailable SOBIAFco MD Unavailable [...] CHROSTOWSKIKETTY MD Unavailable Unavailable ZABOROWSKI, J PO INVESTIGATION CLERK Unavailable Unavailable ZABOROWSKI, J PO INVESTIGATION CLERK Unavailable Unavailable ZABOROWSKI, J PO INVESTIGATION CLERK Unavailable Unavailable ZABOROWSKI, J PO INVESTIGATION CLERK Unavailable Unavailable ZABOROWSKI, J PO INVESTIGATION CLERK Unavailable Unavailable ZABOROWSKI, J PO INVESTIGATION CLERK Unavailable Unavailable ZABOROWSKI, J PO INVESTIGATION CLERK Unavailable Unavailable ZABOROWSKI, J PO INVESTIGATION CLERK Unavailable Unavailable ZABOROWSKI, J PO INVESTIGATION CLERK Unavailable Unavailable ZABOROWSKI, J PO INVESTIGATION CLERK Unavailable Unavailable ZABOROWSKI, J PO INVESTIGATION CLERK Unavailable Unavailable ZABOROWSKI, J PO INVESTIGATION CLERK Unavailable Unavailable ZABOROWSKI, J PO INVESTIGATION CLERK Unavailable Unavailable ZABOROWSKI, J PO INVESTIGATION CLERK Unavailable Unavailable ZABOROWSKI, J PO INVESTIGATION CLERK Unavailable Unavailable ZABOROWSKI, J PO INVESTIGATION CLERK Unavailable Unavailable ZABOROWSKI, J PO INVESTIGATION CLERK Unavailable Unavailable ZABOROWSKI, J PO INVESTIGATION CLERK Unavailable Unavailable ZABOROWSKI, J PO INVESTIGATION CLERK Unavailable Unavailable ZABOROWSKI, J PO INVESTIGATION CLERK Unavailable Unavailable ZABOROWSKI, J PO INVESTIGATION CLERK Unavailable Unavailable ZABOROWSKI, J PO INVESTIGATION CLERK Unavailable Unavailable ZABOROWSKI, J PO INVESTIGATION CLERK Unavailable Unavailable ZABOROWSKI, J PO INVESTIGATION CLERK Unavailable Unavailable ZABOROWSKI, J PO INVESTIGATION CLERK Unavailable Unavailable ZABOROWSKI, J PO INVESTIGATION CLERK Unavailable Unavailable ZABOROWSKI, J PO INVESTIGATION CLERK Unavailable Unavailable ZABOROWSKI, J PO INVESTIGATION CLERK Unavailable Unavailable ZABOROWSKI, J PO INVESTIGATION CLERK Unavailable Unavailable ZABOROWSKI, J PO INVESTIGATION CLERK Unavailable Unavailable ZABOROWSKI, J PO INVESTIGATION CLERK Unavailable Unavailable ZABOROWSKI, J PO INVESTIGATION CLERK Unavailable Unavailable ZABOROWSKI, J PO INVESTIGATION CLERK Unavailable Unavailable ZABOROWSKI, J PO INVESTIGATION CLERK Unavailable Unavailable ZABOROWSKI, J PO INVESTIGATION CLERK Unavailable Unavailable ZABOROWSKI, J PO INVESTIGATION CLERK Unavailable Unavailable ZABOROWSKI, J PO INVESTIGATION CLERK Unavailable Unavailable ZABOROWSKI, J PO INVESTIGATION CLERK Unavailable Unavailable ZABOROWSKI, J PO INVESTIGATION CLERK Unavailable Unavailable ZABOROWSKI, J PO INVESTIGATION CLERK Unavailable Unavailable ZABOROWSKI, J PO INVESTIGATION CLERK Unavailable Unavailable ZABOROWSKI, J PO INVESTIGATION CLERK Unavailable Unavailable ZABOROWSKI, J PO INVESTIGATION CLERK Unavailable Unavailable ZABOROWSKI, J PO INVESTIGATION CLERK Unavailable Unavailable ZABOROWSKI, J PO INVESTIGATION CLERK Unavailable Unavailable ZABOROWSKI, J PO INVESTIGATION CLERK Unavailable Unavailable ZABOROWSKI, J PO INVESTIGATION CLERK Unavailable Unavailable ZABOROWSKI, J PO INVESTIGATION CLERK Unavailable Unavailable ZABOROWSKI, J PO INVESTIGATION CLERK Unavailable Unavailable SEARS, A DINESH DO Unavailable [...] D Shanique PA Unavailable Unavailable Oswald, D Shaniqeu PA Unavailable Unavailable Oswald, D Shanique PA [...] is protected by Article 27-F of the [facility] Public Health law. If you continue you may have access to information: Regarding HIV / AIDS; Provided by facilities licensed or operated by the [facility] Office of Mental Health; or Provided by the [facility] Office for People With Developmental Disabilities. If such information is present, then the following [facility] mandated warning applies: This information has been [...] law may result in a fine or nursing home sentence or both. A general authorization for the release of medical or other information is NOT sufficient authorization for further disc losure. Allergies and Adverse Reactions Type Description Substance Reaction Status Data Source(s ) Drug allergy QUININE QUININE [facility] Propensity to adverse reactions NARESH NARESH tachycardia [facility] Propensity to adverse reactions PENICILLINS (CLASS) PENICILLINS (CLASS) ANAPHYLAXIS [facility] Propensity to adverse reactions PRAVASTATIN Pravastatin Ac tive [facility] Propensity to adverse reactions ASPIRIN Aluminum aspirin Active [facility] Family History Family Member Name Family Member Gender Family Member Status Date o f Status Description Data Source(s) Unknown Female Problem [facility] ([facility] Encounters Encounter Providers Location Date Indications Data Source(s ) Outpatient Attender: SAHIL Plasencia/Lan/Armand/Re indl 04/10/2021 01:00:00 PM EDT [facility] ([facility] Outpatient Attender: Shanique GRESHAM [facility] 08/2020 03:30:00 PM EDT [facility] ([facility] [place] [address] [address] 03/27/2021 12:00:00 AM EDT eCW1 ([facility]) Outpatient Attender: CASTILLO Plasencia/Lan/Armand/ Reindl 03/03/2021 02:45:00 PM EDT [facility] ([facility] Outpatient Attender: KETTY ESCALANTE MD Main Office 02/28/2021 09:15:00 AM EDT [facility] ([facility] Outpatient Attender: Shanique GRESHAM [facility] 10:20:00 AM EDT [facility] ([facility] Outpatient Attender: KETTY ESCALANTE MDConsultant: Santo GRESHAM 02/21/2021 11:22:00 AM EDT - 02/21/2021 12:22:00 PM EDT [facility] Unknown [address] [address] 02/20/2021 12:00:00 AM EDT eCW1 ([facility]) Out[place] [address] [address] 02/18/2021 12:00:00 AM EDT eCW1 ([facility]) Outpatient Referrer: PO MACHUCA NP BF-BF 02:03:11 PM EDT - 01/29/2021 03:41:49 PM EDT [facility] Outpatient Attender: PO MACHUCA NP BF-BF 12:00:00 AM EDT - 01/29/2021 03:51:17 PM EDT [facility] Outpatient Attender: Shanique GRESHAM [facility] 08/2020 11:15:00 AM EDT [facility] ([facility] Inpatient Admitter: SHANIQUE RAMÍREZ MDReferrer: ARTURO OCASIO MD [id number] 12/25/2020 11:37:19 AM EDT [facility] Inpatient Attender: SHANIQUE RAMÍREZ MDAdmitter: SHANIQUE PEREZ CHI, MD [id number] 12/25/2020 10:06:00 AM EDT - 12/26/2020 05:14:00 PM EDT [facility] Patient discharged. Outpatient Attender: SHANIQUE RAMÍREZ MDReferrer: SHANIQUE PEREZ CHI, MD [id number] 12/23/2020 09:06:37 AM EDT - 12/23/2020 11:35:43 AM EDT [facility] Outpatient Attender: Ton Mtz MD [id number] 12/10 10:04:42 AM EDT - 12/10/2020 11:59:00 PM EDT [facility] Patient discharged. Outpatient Attender: Renae OSMANBF.COX MONETT 12:00:00 AM EDT - 12/10/2020 02:08:44 PM EDT [facility] Outpatient Attender: Shanique [place] [facility] 09:45:00 AM EDT [facility] ([facility] Outpatient Referrer: SHANIQUE RAMÍREZ MD 12/03/2020 03:18:02 PM EDT [facility] Outpatient Attender: CALLIE ENAMORADO MDAd mitter: CALLIE ENAMORADO MDReferrer: CALLIE ENAMORADO MD [id number] 11/27/2020 06:29:00 AM EDT - 11/27/2020 02:51:00 PM EDT [facility] Patient discharged. Outpatient Attender: Renae MARCOS-BF.COX MONETT 12:00:00 AM EDT - 11/25/2020 03:56:53 PM EDT [facility] Outpatient Attender: Shanique [place] Office 08:15:00 AM EDT [facility] ([facility] Outpatient Attender: Shanique [place] Office 02:20:00 PM EDT [facility] ([facility] Outpatient Attender: Shanique [place] [facility] 11:00:00 AM EDT [facility] ([facility] Outpatient Attender: Shanique Ruano PAConsultant: Shanique GRESHAM 10/22/2020 10:59:00 AM EDT - 10/22/2020 11:59:00 AM EDT [facility] Outpatient Attender: DINESH Trivedi/Lan/Armand/Bety 10/08/2020 02:30:00 PM EDT [facility] ([facility] Outpatient Attender: Ajay Plasencia/[place]/Armand/Rein dl 09/23/2020 01:00:00 PM EDT [facility] ([facility] Outpatient Attender: ASHANTI Plasencia/[place]/Armand/Reind l 08/30/2020 03:30:00 PM EDT [facility] ([facility]) Outpatient Attender: KETTY ESCALANTE MD Main Office 08/28/2020 11:00:00 AM EDT [facility] ([facility] Outpatient Attender: Shanique Ruano PAConsultant: Shanique GRESHAM 08/22/2020 08:46:00 AM EDT - 08/22/2020 09:46:00 AM EDT [facility] Patient discharged. Outpatient Attender: Karla Plasencia/[place]/Armand/R eindl 07/24/2020 10:15:00 AM EST [facility] ([facility] Outpatient Attender: Karla Mohan RPA 07/23/2020 0 8:32:00 AM EST BILATERAL ARTERIAL LEGS, DISCOLORATION OF TOES [facility] BILATERAL ARTERIAL LEGS, DISCOLORATION O F TOES Outpatient Attender: Karla Plasencia/[place]/Armand/R eindl 07/17/2020 12:30:00 PM EST [facility] ([facility] Outpatient Attender: DINESH Trivedi/[place]/Armand/Reindl 07/16/2020 08:00:00 AM EST [facility] ([facility] Outpatient Attender: Shanique GRESHAM [facility] 07:45:00 AM EST [facility] ([facility] Out[place] [address] [address] 06/11/2020 12:00:00 AM EST eCW1 ([facility]) Unknown [address] [address] 06/11/2020 12:00:00 AM EST eCW1 ([facility]) Outpatient Attender: Shanique GRESHAM [facility] 04/2020 10:00:00 AM EST [facility] ([facility] Outpatient Attender: DINESH Trivedi/Lan/Armand/Reindl 04/03/2020 11:00:00 AM EDT [facility] ([facility] Outpatient Attender: Henri Overholt PAConsultant: Shanique GRESHAM 03/28/2020 09:14:00 AM EDT - 03/28/2020 10:14:00 AM EDT [facility] Outpatient Attender: Shanique GRESHAM [facility] 09:00:00 AM EDT [facility] ([facility] Immunizations Vaccine Date Status Description Data Source(s) COVID-19 VACCINE Moderna 04/26/2021 12:00:00 AM EST completed [facility] Vaccine Series Complete: YESThis Data wa s Submitted to [facility] Via [employer]. New in 2012. IIV4 04/09/2021 03:34:00 PM EDT completed [facility] ([facility] 207 09/04/2020 12:00:00 AM EDT completed <td I D="[id number]">Covid-19 (Moderna)</td><td>09/04/2020, 08/04/2020</td><td></td> [facility] COVID-19 VACCINE Moderna 09/04/2020 12:00:00 AM EDT completed [facility] Vaccine Series Complete: YESThis Data wa s Submitted to [facility] Via [employer]. COVID-19 VACCINE Moderna 09/04/2020 12:00:00 AM EDT completed [facility] Vaccine Series Complete: YESThis Data wa s Submitted to [facility] Via [employer]. COVID-19 VACCINE, MRNA-1273, LNP-S (MODERNA)/PF 09/04/2020 1 2:00:00 AM EDT completed [facility] 207 08/04/2020 12:00:00 AM EST completed <td I D="[id number]">Covid-19 (Moderna)</td><td>09/04/2020, 08/04/2020</td><td></td> [facility] COVID-19 VACCINE Moderna 08/04/2020 12:00:00 AM EST completed [facility] Vaccine Series Complete: YESThis Data wa s Submitted to [facility] Via [employer]. COVID-19 VACCINE Moderna 08/04/2020 12:00:00 AM EST completed [facility] Vaccine Series Complete: NOThis Data was Submitted to [facility] Via [employer]. COVID-19 VACCINE, MRNA-1273, LNP-S (MODERNA)/PF 08/04/2020 1 2:00:00 AM EST completed [facility] New in 2012. IIV4 03/19/2020 09:09:00 AM EDT completed [facility] ([facility] Medications Medication Brand Name Start Date Product Form Dose Route Admi nistrative Instructions Pharmacy Instructions Status Indications Reaction Description Data Source(s) Metronidazole 500 MG Oral Tablet [Flagyl] Flagyl 04/09/2021 12:00 :00 AM EDT ORAL active [facility] ([facility] Phenazopyridine hydrochloride 100 MG Oral Tablet [Pyri dium] Pyridium 100 MG Pyridium 100 MG 03/27/2021 12:00:00 AM EDT active Pyridium 100 MG eCW1 ([facility]) 240 mcg/0.7 mL 03/16/2021 12:00:00 AM EDT syringe 0 INJECT DIRECTED PER STANDING ORDER INJECT DIRECTED PER STANDING ORDER SOLD: 03/16/2021 [facility] Tamsulosin hydrochloride 0.4 MG Oral Capsule Tamsulosi n HCl 0.4 MG Tamsulosin HCl 0.4 MG 02/21/2021 12:00:00 AM EDT 1.0 {capsule} active Tamsulosin HCl 0.4 MG eCW1 ([facility]) Tamsulosin hydrochloride 0.4 MG Oral Capsule Tamsulosi n HCl 0.4 MG Tamsulosin HCl 0.4 MG 02/21/2021 12:00:00 AM EDT 1.0 {capsule} active Tamsulosin HCl 0.4 MG eCW1 ([facility]) Tamsulosin hydrochloride 0.4 MG Oral Capsule Tamsulosi n HCl 0.4 MG Tamsulosin HCl 0.4 MG 02/21/2021 12:00:00 AM EDT 1.0 {capsule} active Tamsulosin HCl 0.4 MG eCW1 ([facility]) Tamsulosin hydrochloride 0.4 MG Oral Capsule Tamsulosi n HCl 0.4 MG Tamsulosin HCl 0.4 MG 02/18/2021 12:00:00 AM EDT 1.0 {capsule} active Tamsulosin HCl 0.4 MG eCW1 ([facility]) Tamsulosin hydrochloride 0.4 MG Oral Capsule Tamsulosi n HCl 0.4 MG Tamsulosin HCl 0.4 MG 02/18/2021 12:00:00 AM EDT 1.0 {capsule} active Tamsulosin HCl 0.4 MG eCW1 ([facility]) Tamsulosin hydrochloride 0.4 MG Oral Capsule Tamsulosi n HCl 0.4 MG Tamsulosin HCl 0.4 MG 02/18/2021 12:00:00 AM EDT 1.0 {capsule} active Tamsulosin HCl 0.4 MG eCW1 ([facility]) glimepiride 4 MG Oral Tablet Glimepiride 02/06/2021 12:00:00 AM EDT ORAL active [facility] ([facility] Hizentra Hizentra 02/05/2021 12:00:00 AM EDT SUBCUTANEOUS active [facility] Nystatin 483361 UNT/ML Oral Suspension Nystatin 02/05/2021 12:00:00 AM [...] active Take 50 mcg by mouth daily [facility] glimepiride 2 MG Oral Tablet Glimepiride 01/02/2021 12:00:00 AM EDT ORAL completed [facility] ([facility] glimepiride 2 MG Oral Tablet glimepiride (AMARYL) 2 MG tablet glimepiride (AMARYL) 2 MG tablet 01/02/2021 12:00:00 AM EDT active TAKE ONE TABLET BY MOUTH EVERY DAY 30 MINUTES BEFORE HIS LARGEST MEAL [facility] glimepiride 2 MG Oral Tablet GLIMEPIRIDE 01/02/2021 12:00:00 AM EDT ta blet 30 TAKE ONE TABLET BY MOUTH EVERY DAY 30 MINUTES BEFORE HIS LARGEST MEAL TAKE ONE TABLET BY MOUTH EVERY DAY 30 MINUTES BEFORE HIS LARGEST MEAL SOLD: 01/02/2021 [facility] sitagliptin 100 MG Oral Tablet [Januvia] Januvia 01/01/2021 12:00: 00 AM EDT ORAL completed [facility] ([facility] Bisacodyl 10 MG Rectal Suppository bisacodyl (DULCOLAX ) suppository 10 mg bisacodyl (DULCOLAX) suppository 10 mg 12/28/2020 09:00:00 AM EDT 10 mg Rectal active 10 mg, Rectal, Daily PRN, constipation, Starting on 12/28/20 at 0900, Post-op
If lactulose not effective, give bisacodyl suppository x 1 per rectum prn starting POD #3.
[facility] Medication administered onsite Sulfamethoxazole 800 MG [...] Infection, First dose on Wed12/27/20 at 0900 [facility] Urinary Tract Infection Medication administered onsite POLYETHYLENE GLYCOL 3350 142 MG/ML Oral Solution polyethylene glycol (GLYCOLAX) packet 17 g polyethylene glycol (GLYCOLAX) packet 17 g 12/27/2020 07:00:00 AM EDT 17 g Oral active 17 g, Or al, Daily PRN, For constipation, Starting on Wed12/27/20 at 0700, PACU & Post-op
hold for loose stools
[facility] Medication administered onsite latanoprost 0.05 MG/ML Ophthalmic Soluti on latanoprost (XALATAN) 0.005 % ophthalmic solution 1 drop latanoprost (XALATAN) 0.005 % ophthalmic solution 1 drop 12/26/2020 09:00:00 AM EDT 1 [drp] active 1 drop, Both Eyes, Daily, First dose on Lottie 12/26/20 at 0900 [facility] Medication administered onsite Prednisone 20 MG Oral Tablet predniSONE (DELTASONE) ta blet 20 mg predniSONE (DELTASONE) tablet 20 mg 12/26/2020 09:00:00 AM EDT 20 mg Oral active 20 mg, Oral, Daily, First dose on Wed12/26/20 at 0900 [facility] Medication administered onsite Docusate Sodium 100 MG Oral Capsule docusate sodium (C OLACE) capsule 100 mg docusate sodium (COLACE) capsule 100 mg 12/26/2020 09:00:00 AM EDT 100 mg Oral active 100 mg, Oral, 2 times daily, First dose on Wed12/26/20 at 0900, Post-op
Start first POD.
[facility] Medication administered onsite heparin (porcine) injection 5,000 Units 38761-064-46 12/27/19 09:00:00 AM EDT 5000 U Subcutaneous [...] equal to 1.7 if receiving Coumadin therapy.
[facility] Medication administered onsite Folic Acid 1 MG Oral Tablet folic acid (FOLVITE) table t 1 mg folic acid (FOLVITE) tablet 1 mg 12/26/2020 09:00:00 AM EDT 1 mg Oral active 1 mg, Oral, Daily, First dose on Lottie 12/26/20 at 0900 [facility] Medication administered onsite Aspirin 81 MG [...] OG tube in place, give non-enteric aspirin.
[facility] Medication administered onsite clopidogrel 75 MG Oral Tablet clopidogrel (PLAVIX) tab let 75 mg clopidogrel (PLAVIX) tablet 75 mg 12/26/2020 09:00:00 AM EDT 75 mg Oral active 75 mg, Oral, Daily, First dose on Lottie 12/26/20 at 0900, Post-op
Start first POD.
[facility] Medication administered onsite Insulin Lispro 100 [...] cover POC glucose at 08:00, 12:00, 17:00.
[facility] Medication administered onsite clopidogrel 75 MG Oral Tablet clopidogrel (PLAVIX) 75 MG tablet clopidogrel (PLAVIX) 75 MG tablet 12/26/2020 12:00:00 AM EDT 75 mg Oral active Take 1 tablet (75 mg total) by mouth nightly [facility] normal saline flush 0.9 % injection 3 mL 65045-947-38 12/25/2020 09:00:00 PM EDT 3 mL Intravenous active 3 mL , Intravenous, PROTOCOL, First dose on Wed12/25/20 at 2100, Post-op
flush per protocol, D/C Main IV fluid if appropriate
[facility] Medication administered onsite Nystatin 495881 UNT/ML Oral Suspension n ystatin (MYCOSTATIN) 533971 UNIT/ML oral suspension 200,000 Units nystatin (MYCOSTATIN) 870119 UNIT/ML ora l suspension 200,000 Units 12/25/2020 09:00:00 PM EDT 764001 U Oral ac tive 200,000 Units, Oral, 4 times daily, First dose on Wed12/25/20 at 2099
Swish and spit
[facility] Medication administered onsite 12 HR Guaifenesin 600 MG Extended Releas e Oral Tablet guaiFENesin (MUCINEX) 12 hr tablet 1,200 mg guaiFENesin (MUCINEX) 12 hr tablet 1,200 mg 12/25/2020 09:00:00 PM EDT 1200 mg Oral active 1,200 mg, Oral, 2 times daily, First dose on Wed12/25/20 at 2099 [facility] Medication administered onsite montelukast 10 MG Oral Tablet montelukast (SINGULAIR) tablet 10 mg montelukast (SINGULAIR) tablet 10 mg 12/25/2020 09:00:00 PM EDT 10 mg Oral active 10 mg, Oral, Nightly, First dose on Wed12/25/20 at 2099 [facility] Medication administered onsite Famotidine 20 MG Oral Tablet famotidine (PEPCID) table t 40 mg famotidine (PEPCID) tablet 40 mg 12/25/2020 09:00:00 PM EDT 40 mg Oral active 40 mg, Oral, Nightly, First dose on Wed12/25/20 at 2099 [facility] Medication administered onsite Citalopram 20 MG Oral Tablet citalopram (CeleXA) table t 20 mg citalopram (CeleXA) tablet 20 mg 12/25/2020 09:00:00 PM EDT 20 mg Oral active 20 mg, Oral, Nightly, First dose on Wed12/25/20 at 2099 [facility] Medication administered onsite Cefazolin 1000 MG [...] minutes. Use within 1 hour of reconstitution
[facility] Perioperative Pharmacoprophylaxis Medication administered onsite formoterol fumarate 0.01 MG/ML Inhalant Solution formoterol (PERFOROMIST) nebulizer solution 20 mcg formoterol (PERFOROMIST) nebulizer solution 20 mcg 12/25/2020 08:00:00 PM EDT 20 ug active 20 mcg, Nebulization, 2 times daily, First dose on Wed12/25/20 at 1999 [facility] Medication administered onsite Budesonide 0.25 MG/ML Inhalant Solution budesonide (PULMICORT) nebulizer solution 0.5 mg budesonide (PULMICORT) nebulizer solution 0.5 mg 12/25 08:00:00 PM EDT 0.5 mg active 0.5 mg, Nebulization, 2 times daily, First dose on Wed12/25/20 at 1999 [facility] Medication administered onsite sodium chloride 0.9% (NS) infusion 0942-5202-26 12/25/2020 05:00:00 P M EDT Intravenous completed at 75 mL/hr, Intravenous, Continuous, Starting on Wed12/25/20 at 1700, For 4 hours, Post-op [facility] Medication administered onsite ferrous sulfate 325 MG Oral Tablet ferrous sulfate tab let 325 mg ferrous sulfate tablet 325 mg 12/25/2020 05:00:00 PM EDT 325 mg Oral act erica 325 mg, Oral, 2 times daily with meals, First dose on Wed12/25/20 at 1700
Separate from antacids as far as possible. Take with food, do not crush
[facility] Medication administered onsite ondansetron (ZOFRAN) injection 4 mg [id number] 12/25/2020 04:44:3 3 PM EDT 4 mg Intravenous active 4 mg, In travenous, Every 6 hours PRN, nausea, vomiting, Starting on Wed12/25/20 at 1644, Post-op
If no response in 15-30 minutes then give metoclopramide 10 mg IV x 1 then q6h prn N/V.
[facility] Medication administered onsite acetaminophen (TYLENOL) 325 [...] Wed12/25/20 at 1644, Post-op [Order 2 End] [facility] Medication administered onsite 2 ML Metoclopramide 5 MG/ML Prefilled Sy ringe metoclopramide (REGLAN) injection 10 mg metoclopramide (REGLAN) injection 10 mg 12/25/2020 04:44:32 PM E DT 10 mg Intravenous active 10 mg, I ntravenous, Every 6 hours PRN, nausea, vomiting, Starting on Wed12/25/20 at 1644, Post-op
Give once if no response to Zofran after 15-30 minutes, then q6h prn N/V.
[facility] Medication administered onsite Ipratropium [place] 0.2 MG/ML Inhalant S olution ipratropium (ATROVENT) 0.02 % nebulizer solution 0.5 mg ipratropium (ATROVENT) 0.02 % nebulizer solution 0.5 mg 12/25/2020 03:00:00 PM EDT 0.5 mg active 0.5 mg, Nebulization, 4 times daily, First dose on Wed12/25/20 at 1500 [facility] Medication administered onsite Albuterol 0.83 MG/ML Inhalant Solution a lbuterol (PROVENTIL) nebulizer solution 2.5 mg albuterol (PROVENTIL) nebulizer solution 2.5 mg 2020 03:00:00 PM EDT 2.5 mg active 2.5 mg, Nebulization, 4 times daily, First dose on Wed12/25/20 at 1500 [facility] Medication administered onsite Nitroglycerin 0.4 MG Sublingual Tablet n itroglycerin (NITROSTAT) SL tablet 0.4 mg nitroglycerin (NITROSTAT) SL tablet 0.4 mg 12/25/2020 02:38:07 P M EDT 0.4 mg Sublingual active 0.4 mg, S ublingual, Every 5 min PRN, chest pain, Starting on Wed12/25/20 at 1438
May administer up to 3 doses per episode.
[facility] Medication administered onsite sodium chloride 0.9% (NS) infusion 2278-9334-82 12/25/2020 11:00:00 A M EDT Intravenous active at 75 mL/hr, Intravenous, Continuous, Starting on Wed12/25/20 at 1100, Pre-op [facility] Medication administered onsite Magnesium Chloride 0.95589 MEQ/ML / Pota ssium Chloride 0.0497 MEQ/ML / Sodium Acetate 0.0163 MEQ/ML / Sodium Chloride 0.0899 MEQ/ML / Sodium gluconate 5.02 MG/ML Injectable Solution [Normosol-R] electrolyte-R (NORMOSOL-R/PLASMALYTE-R) solution electrolyte-R (NORMOSOL-R/PLASMALYTE-R) solution 12/25 11:00:00 AM EDT Intravenous active at 1 00 mL/hr, Intravenous, Continuous, Starting on Wed12/25/20 at 1100 [facility] Medication administered onsite Furosemide 20 MG Oral Tablet furosemide (LASIX) 20 MG tablet furosemide (LASIX) 20 MG tablet 12/10/2020 12:00:00 AM EDT 20 mg Oral abort ed Take 1 tablet (20 mg total) by mouth daily [facility] clopidogrel 75 MG Oral Tablet clopidogrel (PLAVIX) 75 MG tablet clopidogrel (PLAVIX) 75 MG tablet 12/10/2020 12:00:00 AM EDT 75 mg Oral aborted Take 1 tablet (75 mg total) by mouth daily [facility] normal saline flush 0.9 % injection 3 mL [id number] 11/27/2020 02:00:00 PM EDT 3 mL Intravenous active 3 mL , Intravenous, Every 8 hours (scheduled), First dose on Wed11/27/20 at 1400, PACU (only)
flush per protocol, D/C Main IV fluid if appropriate
[facility] Medication administered onsite Magnesium Chloride 0.72611 MEQ/ML / Pota ssium Chloride 0.0497 MEQ/ML [...] mg/dL, start IV of Normosol-R @100 mL/hr.
[facility] Medication administered onsite Hydralazine Hydrochloride 20 MG/ML Injec table Solution hydrALAZINE (APRESOLINE) injection 5 mg hydrALAZINE (APRESOLINE) injection 5 mg 11/27/2020 12: 19:32 PM EDT 5 mg Intravenous active 5 mg , Intravenous, Every 15 min PRN, high blood pressure, Starting on Wed11/27/20 at 1219, For 4 doses, PACU (only)
Give for a SBP >150 and /or a DBP >100
[facility] Medication administered onsite ondansetron (ZOFRAN) injection 4 mg [id number] 11/27/2020 12:19:3 2 PM EDT 4 mg Intravenous active 4 mg, In travenous, As needed, nausea, vomiting, Starting on Wed11/27/20 at 1219, For 1 dose, PACU (only)
If not given in last 4 hours
[facility] Medication administered onsite Albuterol 0.83 MG/ML Inhalant Solution a lbuterol (PROVENTIL) nebulizer solution 2.5 mg albuterol (PROVENTIL) nebulizer solution 2.5 mg 2020 12:19:32 PM EDT 2.5 mg active 2.5 mg, Nebulization, Once as needed, shortness of breath, Starting on Wed11/27/20 at 1219, For 1 dose, PACU (only) [facility] Medication administered onsite iopamidol (ISOVUE-370) 76 % [id number] 11/27/2020 12:02:05 PM EDT active As needed, Starting on Wed11/27/20 at 1202, Intra-Proc edure [facility] Medication administered onsite lidocaine 1 % injection [id number] 11/27/2020 11:50:34 AM EDT active As needed, Starting on Wed at 1150, Intra-Procedure [facility] Medication administered onsite fentaNYL Citrate (PF) (SUBLIMAZE) injection [id number] 11/27/2020 11:48:08 AM EDT active As neede d, Starting on Wed11/27/20 at 1148, Intra-Procedure [facility] Medication administered onsite 2 ML Midazolam 1 MG/ML Injection midazolam (VERSED) in jection midazolam (VERSED) injection 11/27/2020 11:47:56 AM EDT active As needed, Starting on Wed11/27/20 at 1147, Intra-Procedure [facility] Medication administered onsite Nitroglycerin 0.4 MG Sublingual Tablet n itroglycerin (NITROSTAT) 0.4 MG SL tablet nitroglycerin (NITROSTAT) 0.4 MG SL tablet 11/25/2020 12:00:00 A M EDT 0.[address] 1 t ablet (0.4 mg total) under the tongue every 5 (five) minutes as needed for chest pain [facility] Methylprednisolone 125 MG Injection [Solu-Medrol] METH [...] Mupirocin 08/30/2020 12:00:00 AM EDT active [facility] ([facility], ) Budesonide 0.25 MG/ML Inhalant Solution Budesonide 08/12/2020 12: 00:00 AM EST completed [facility] ([facility], ) Injection (SC)/(Im) 07/19/2020 12:00:00 AM EST [...] (SC)/(Im) 07/17/2020 12:00:00 AM EST completed [facility] ([facility] Medication administered onsite Methylprednisolone 125 MG Injection [Solu-Medrol] METH YLPREDNISOLONE SODIUM SUCCINATE/PF 07/17/2020 12:00:00 AM EST recon soln 3 I NJECT INTRAMUSCULARLY IMMEDIATELY INJECT INTRAMUSCULARLY IMMEDIATELY SOLD: 07/17/2020 [facility] Injection (SC)/(Im) 06/21/2020 12:00:00 AM EST completed [facility] ([facility] Medication administered onsite Injection (SC)/(Im) 06/20/2020 12:00:00 AM EST completed [facility] ([facility] Medication administered onsite Injection (SC)/(Im) 06/19/2020 12:00:00 AM EST completed [facility] ([facility] Medication administered onsite Solu-Medrol Solu-Medrol 06/19/2020 12:00:00 AM EST active [facility] ([facility] Metformin hydrochloride 500 MG Oral Tablet Metformin HCL 05/27/2020 12:00:00 AM EST ORAL active [facility] ([facility] 5 % 04/17/2020 12:00:00 AM EST adhesive patch,medicate d 30 APPLY ONE PATCH TOPICALLY TO THE SKIN DIRECTED, 12 HOURS ON AND THEN 12 HOURS OFF APPLY ONE PATCH TOPICALLY TO THE SKIN DIRECTED, 12 HOURS ON AND THEN 12 HOURS OFF SOLD: 04/18/2020 [facility] Lidocaine Hydrochloride 0.05 MG/MG Transdermal Patch [Lidode rm] Lidoderm 04/17/2020 12:00:00 AM EST active [facility] ([facility] Albuterol 0.83 MG/ML Inhalant Solution Albuterol Sulfate 1 06/12/2019 12:00:00 AM EST completed [facility] ([facility], ) Spiriva Respimat Spiriva Respimat 04/03/2020 12:00:00 AM EDT RESPIRATORY completed [facility] ([facility], ) Zinc 03/19/2020 12:00:00 AM EDT ORAL active [facility] ([facility] clopidogrel 75 MG Oral Tablet clopidogrel (PLAVIX) 75 MG tablet clopidogrel (PLAVIX) 75 MG tablet 12/04/2019 12:00:00 AM EDT 75 mg Oral aborted Take 1 tablet (75 mg total) by mouth daily [facility] Nitroglycerin 0.4 MG Sublingual Tablet n itroglycerin (NITROSTAT) 0.4 MG SL tablet nitroglycerin (NITROSTAT) 0.4 MG SL tablet 11/22/2018 12:00:00 A M EDT 0.[address] 1 t ablet (0.4 mg total) under the tongue every 5 (five) minutes as needed for chest pain [facility] gabapentin 100 MG Oral Capsule gabapentin (NEURONTIN) 100 MG capsule gabapentin (NEURONTIN) 100 MG capsule 10/27/2017 12:00:00 AM EDT 100 mg Oral aborted Take 100 mg by mouth 3 (three) times a d ay [facility] 24 HR Diltiazem Hydrochloride 240 MG Ext ended Release Oral Capsule diltiazem (CARDIZEM CD) 240 MG 24 hr capsule diltiazem (CARDIZEM CD) 240 MG 24 hr capsule 09/28/2017 12:00:00 AM EDT aborted take 1 capsule by mouth once daily (REPLACES PRAZOSIN) [facility] Sulfamethoxazole 800 MG / Trimethoprim 1 60 MG Oral Tablet sulfamethoxazole- trimethoprim (BACTRIM DS,SEPTRA DS) 800-160 MG per tablet sulfamethoxazole- trimethoprim (BACTRIM DS,SEPTRA DS) 800-160 MG per tablet 08/27/2016 12:00:00 AM EDT aborted TAKE ONE TABLET BY MOUTH ONCE A DAY ON Wednesday AND WEDNESDAY [facility] ibandronic acid 150 MG Oral Tablet ibandronate (BONIVA ) 150 MG tablet ibandronate (BONIVA) 150 MG tablet 150 mg Oral abo rted Take 150 mg by mouth every 30 (thirty) days [facility] empagliflozin 25 MG Oral Tablet Empagliflozin 25 MG TA BS Empagliflozin 25 MG TABS 25 mg Oral aborted Take 25 mg by mout h daily [facility] Immune Globulin, Human, (HIZENTRA) 10 GM/50ML SOLN [id number] Subcutaneous aborted Inject under the skin once a week [facility] Clotrimazole 10 MG Oral Lozenge clotrimazole (MYCELEX) 10 MG parisa clotrimazole (MYCELEX) 10 MG parisa 10 mg Oral aborted Take 10 mg by mouth 5 (five) times a day [facility] carvedilol 6.25 MG Oral Tablet carvedilol (COREG) 6.25 MG tablet carvedilol (COREG) 6.25 MG tablet 6.25 mg Oral aborted Take 6.25 mg by mouth 2 (two) times a day [facility] Calcium Citrate 950 MG Oral Tablet calcium citrate (CA LCITRATE) 950 MG tablet calcium citrate (CALCITRATE) 950 MG tablet 1 {tbl} Oral aborted Take 1 tablet by mouth daily [facility] pitavastatin 2 MG Oral Tablet pitavastatin (LIVALO) 2 MG TABS pitavastatin (LIVALO) 2 MG TABS 2 mg Oral aborted Take 2 mg by mouth nightly [facility] Ranitidine 300 MG Oral Tablet ranitidine (ZANTAC) 300 MG tablet ranitidine (ZANTAC) 300 MG tablet 300 mg Oral aborted Take 300 mg by mouth nightly [facility] metaxalone 800 MG Oral Tablet metaxalone (SKELAXIN) 80 0 MG tablet metaxalone (SKELAXIN) 800 MG tablet 800 mg Oral aborted Take 800 mg by mouth 3 (three) times a day as needed for pain [facility] 12 HR Guaifenesin 600 MG Extended Releas e Oral Tablet guaiFENesin (MUCINEX) 600 MG 12 hr tablet guaiFENesin (MUCINEX) 600 MG 12 hr tablet 1200 m g Oral aborted Take 1,200 mg by mouth 2 (two) t imes a day [facility] Tiotropium [place] Monohydrate (SPIRIVA RESPIMAT IN) drug or medicati on Inhalation aborted Inhale daily [facility] torsemide 20 MG Oral Tablet torsemide (DEMADEX) 20 MG tablet torsemide (DEMADEX) 20 MG tablet 10 mg Oral aborted Take 10 mg by mouth daily [facility] 30 ACTUAT aclidinium bromide 0.4 MG/ACTU AT Dry Powder Inhaler aclidinium bromide (TUDORZA) 400 MCG/ACT AEPB inhaler aclidinium bromide (TUDORZA) 400 MCG/ACT AEPB inhaler 1 {puff} Inhalation aborted Inhale 1 puff 2 (two) times a day [facility] glimepiride 4 MG Oral Tablet glimepiride (AMARYL) 4 MG tablet glimepiride (AMARYL) 4 MG tablet 1 {tbl} Oral aborted Take 1 tablet by mouth 2 (two) times a day [facility] formoterol fumarate 0.01 MG/ML Inhalant Solution formoterol (PERFOROMIST) 20 MCG/2ML nebulizer solution formoterol (PERFOROMIST) 20 MCG/2ML nebu lizer solution aborted 1 neb twice a d ay dx:J44.9 [facility] Insurance Providers Payer name Policy type / Coverage type Policy ID Covered green party ID Covered green party's relationship to macias Policy Macias Plan Information [id number] [facility]URANCE [id number] WI2 [id number] [facility] [id number] SP [id number] [place] [id number] [facility] 7 [id number] 1 [id number] [facility] [id number] 1 [id number] [facility] [id number] 0 [id number] [employer] [id number] WI2 [id number] [employer] [id number] WI2 [id number] [employer] (68) [id number] 2 [id number] MEDICARE [id number] SP [id number] A [facility]OM[facility] [id number] WI2 [id number] P[facility] [id number] WI2 [id number] MEDICARE MEDICARE [id number] Self MINOO VELASQUEZ III ME DICARE [place] [id number] 1 [id number] Medicare Part B [facility] [id number] 0 [id number] ASSIGNED MEDICARE (81) [id number] MEDICARE [id number] SP [id number] [facility] [id number] WI2 [id number] UMR [id number] Spo [id number] UMR [id number] Spo [id number] UMR [id number] UMR [id number] UMR [id number] Spo [id number] UMR [facility] [id number] WI2 [id number] R [facility] [id number] WI2 [id number] COMMERCIAL GENERIC [id number] Teresa 1 [id number] COMMERCIAL GENERIC [id number] Teresa 1 [id number] Medicare Part B Medicare Primary [id number] Self [id number] MEDICARE [id number] A ANSI-Commercial [id number] ANSI-Commercial [id number] ANSI-Medicare Part B [id number] [facility] Commercial [id number] Family Dependent [id number] Medicare Part B Medicare Primary [id number] Self [id number] r Commercial [id number] Self [id number] Medicare Part B Medicare Primary [id number] Self [id number] [employer] [id number] WI2 [id number] MEDICARE C [id number] S [id number] A MEDICARE [id number] Teresa [id number] A UMR O [id number] P [id number] [employer] PPO O [id number] S [id number] MEDICARE PART A -O/P [id number] 18 [id number] [facility]OM[facility]-O/P [id number] 01 [id number] MEDICARE -O/P [id number] 18 [id number] MEDICARE [id number] SP [id number] [employer] [id number] Spo [id number] [employer] PPO O [id number] S [id number] POMCO POMCO [id number] Self E VELASQUEZ POMCO POMCO [id number] Spo [id number] MEDICARE [id number] Teresa [id number] A POMCO [id number] WI2 [id number] [place] Medigap Part B [id number] Family Dependent Medicare [place] Primary [id number] Self SELF PAY 2 UNAVAILABLE 1 UNAVAILA BLE [facility] PPO 2 [id number] 2 [id number] [facility] PPO S UNAVAILABLE [id number] P UNAVAILA BLE MEDICARE P UNAVAILABLE [id number] P UNAVAILA BLE [id number] [facility] O [id number] S [id number] R [facility] [id number] WI2 [id number] R [facility] [id number] SP [id number] UMR -O/P [id number] 01 [id number] MEDICARE PART A -O/P [id number] 18 [id number] MEDICARE [id number] Teresa [id number] MEDICARE [id number] [facility] [id number] Spo [id number] MEDICARE C [id number] S [id number] UMR O [id number] S [id number] NGS [place] O [id number] S [id number] UMR -O [id number] 01 [id number] MEDICARE -RECURRING [id number] 18 [id number] Commercial 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 [id number] [employer] [id number] Commercial Ins urance Co. [id number] Medicare [id number] Medicare Part [id number] Umr/Uhc/[facility] Medigap Part B [id number] Family Dependent [id number] Medicare Natl Gov't Servi Medicare Primary [id number] Self [id number] MEDICARE [id number] SP [id number] ANSI-Medicare Part B [id number] ANSI-Commercial [id number] ANSI-Commercial [id number] MEDICARE PI PI UMR PI PI Umr Commercial [id number] Family Dependent [id number] Medicare Part B Medicare Primary [id number] Self [id number] NORIDIAN JE PART B C [id number] S [id number] ANSI-Commercial [id number] ANSI-Medicare Part B [id number] ANSI-Commercial [id number] [facility] Commercial [id number] Family Dependent [id number] Problems, Conditions, and Diagnoses Code Display Name Description Problem Type Effective Dates Data Source(s) 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, unspec ified Common variable immunodeficiency, unspecified Diagnosis 02/21/2021 11:22:00 AM EDT [facility] Z95.2 Presence of prosthetic heart valve Presence of p rosthetic heart valve Diagnosis 01/29/2021 02:03:11 PM EDT [facility] Z95.3 Presence of xenogenic heart valve Presence of xe nogenic heart valve Diagnosis 01/29/2021 02:03:11 PM EDT [facility] I35.0 Nonrheumatic aortic (valve) stenosis Nonrheumati c aortic (valve) stenosis Diagnosis 12/25/2020 10:06:00 AM EDT [facility] 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 Atherosclerotic heart disease of yocha dehe Diagnosis 11/27/2020 06:29:00 AM EDT [facility] R06.02 Shortness of breath Shortness of breath Diagnosis 0 11/27/2020 06:29:00 AM EDT [facility] I50.20 Unspecified systolic (congestive) heart failure Unspecified systolic (congestive) heart Diagnosis 11/27/2020 06:29:00 AM EDT [facility] I20.8 Other forms of angina pectoris Other forms of angina p ectoris Diagnosis 11/27/2020 06:29:00 AM EDT [facility] E07.9 Disorder of thyroid, unspecified Disorder of thy roid, unspecified Diagnosis 11/25/2020 02:35:[address] 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[place] coronary artery with unstable angina pectoris Atherosclerotic heart disease of yocha dehe Diagnosis 11/25/2020 02:35:37 PM EDT [facility] [id number] Fracture of one rib, left side, initial encounter for closed fracture Fracture of one rib, left side, initial encounter for closed fracture Diagnosis 10/22/2020 10:59:00 AM EDT [facility] N281 Cyst of kidney, acquired Cyst of kidney, acquired Diag nosis 08/22/2020 08:46:00 AM EDT [facility] I2510 Atherosclerotic heart diseas e of y[place] de[place] coronary artery without angina pectoris 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 Diagnosis 08/22/2020 08:46:00 AM EDT [facility] J449 Chronic obstructive pulmonary disease, u nspecified Chronic obstructive pulmonary disease, unspecified Diagnosis 08/22/2020 08:46:00 AM EDT [facility] 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 ) Note: 4.7cm 08/27/20 E78.5 Hyperlipidemia Hyperlipidemia Problem 06/19/2020 12:00: 00 AM EST [facility] ([facility] [id number] ALT (SGPT) level raised ALT (SGPT) level raised Proble m 03/19/2020 12:00:00 AM EDT [facility] ([facility] ) Surgeries/Procedures Procedure Description Date Indications Data Source(s) OFFICE OUTPATIENT VISIT 25 MINUTES 04/10/2021 12:00:00 AM EDT [facility] ([facility], ) OFFICE OUTPATIENT VISIT 25 MINUTES 04/09/2021 12:00:00 AM EDT [facility] ([facility] Spirometry 03/03/2021 12:00:00 AM EDT M EDENT ([facility], ) OFFICE OUTPATIENT VISIT 25 MINUTES 03/03/2021 12:00:00 AM EDT [facility] ([facility], ) OFFICE OUTPATIENT VISIT 25 MINUTES 02/28/2021 12:00:00 AM EDT [facility] ([facility] OFFICE OUTPATIENT VISIT 15 MINUTES 02/24/2021 12:00:00 AM EDT [facility] ([facility] ECG ROUTINE ECG W/LEAST 12 LDS W/I&R <td>POCT AMB EKG</td><td>Routine</td><td>01/29/2021 4:06 PM EDT</td><td> S/P TAVR (transcatheter aortic valve replacement)</td><td> </td> 01/29/2021 04:06:00 PM EDT S/P TAVR (transcatheter aortic valve replacement) [facility] S/P TAVR (transcatheter aortic valve rep lacement) OFFICE OUTPATIENT VISIT 25 MINUTES 01/07/2021 12:00:00 AM EDT [facility] ([facility] GLUC BLD GLUC MNTR DEV CLEARED FDA SPEC HOME USE <td>P OCT GLUCOSE</td><td>Routine</td><td>12/26/2020 11:59 AM EDT</td><td></td><td> </td> 12/26/2020 11:59:00 AM EDT [facility] GLUC BLD GLUC MNTR DEV CLEARED FDA SPEC HOME USE <td>P OCT GLUCOSE</td><td>Routine</td><td>12/26/2020 8:32 AM EDT</td><td></td><td> </td> 12/26/2020 08:32:00 AM EDT [facility] ECHO TTHRC R-T 2D W/WOM-MODE COMPL SPEC&COLR DOP <td>E CHOCARDIOGRAM TRANSTHORACIC</td><td>Pending Discharge</td><td>12/26/2020 8:01 AM EDT</td><td></td><td> </td> 12/26/2020 08:01:55 AM EDT [facility] BLOOD COUNT COMPLETE AUTOMATED <td>CBC</td><td>Timed</ td><td>12/26/2020 5:55 AM EDT</td><td></td><td> </td> 12/26/2020 05:55:00 AM EDT [facility] BASIC METABOLIC PANEL CALCIUM TOTAL <td>BASIC METABOLI C PANEL</td><td>Timed</td><td>12/26/2020 5:55 AM EDT</td><td></td><td> </td> 12/26/2020 05:55:00 AM EDT [facility] GLUC BLD GLUC MNTR DEV CLEARED FDA SPEC HOME USE <td>P OCT GLUCOSE</td><td>Routine</td><td>12/25/2020 8:03 PM EDT</td><td></td><td> </td> 12/25/2020 08:03:00 PM EDT [facility] XR CHEST PORTABLE <td>XR CHEST PORTABLE</td><t d>STAT</td><td>12/25/2020 3:09 PM EDT</td><td></td><td> </td> 12/25/2020 03:09:47 PM EDT [facility] PROTHROMBIN TIME <td>PROTIME-INR</td><td>STAT </td><td>12/25/2020 2:53 PM EDT</td><td></td><td> </td> 12/25/2020 02:53:00 PM EDT [facility] BLOOD COUNT COMPLETE AUTOMATED <td>CBC</td><td>STAT</t d><td>12/25/2020 2:53 PM EDT</td><td></td><td> </td> 12/25/2020 02:53:00 PM EDT [facility] MAGNESIUM <td>MAGNESIUM</td><td>STAT</ td><td>12/25/2020 2:53 PM EDT</td><td></td><td> </td> 12/25/2020 02:53:00 PM EDT [facility] HEMOGLOBIN GLYCOSYLATED A1C <td>HEMOGLOBIN A1C</td><td>Routine</td><td>12/25/2020 2:53 PM EDT</td><td></td><td> </td> 12/25/2020 02:53:00 PM EDT [facility] BASIC METABOLIC PANEL CALCIUM TOTAL <td>BASIC METABOLI C PANEL</td><td>STAT</td><td>12/25/2020 2:53 PM EDT</td><td></td><td> </td> 12/25/2020 02:53:00 PM EDT [facility] ECG ROUTINE ECG W/LEAST 12 LDS TRCG ONLY W/O I&R <td>E CG 12- LEAD</td><td>Routine</td><td>12/25/2020 2:50 PM EDT</td><td></td><td></td> 12/25/2020 02:50:32 PM EDT [facility] GLUC BLD GLUC MNTR DEV CLEARED FDA SPEC HOME USE <td>P OCT GLUCOSE</td><td>Routine</td><td>12/25/2020 2:40 PM EDT</td><td></td><td> </td> 12/25/2020 02:40:00 PM EDT [facility] TRANSCATHETER AORTIC VALVE IMPLANT FEMORAL <td>TRANSCA THETER AORTIC VALVE IMPLANT FEMORAL</td><td>Routine</td><td>12/25/2020 2:08 PM EDT</td><td> Nonrheumatic aortic valve stenosis</td><td></td> 12/25/2020 02:08:37 PM EDT Nonrheumatic aortic valve stenosis [facility] Nonrheumatic aortic valve stenosis POC ACT <td>POC ACT</td><td>Routine< /td><td>12/25/2020 1:36 PM EDT</td><td></td><td> </td> 12/25/2020 01:36:00 PM EDT [facility] POC ACT <td>POC ACT</td><td>Routine< /td><td>12/25/2020 1:21 PM EDT</td><td></td><td> </td> 12/25/2020 01:21:00 PM EDT [facility] POC ARTERIAL BLOOD GAS W LYTES <td>POC ARTERIAL BLOOD GAS W LYTES</td><td>Routine</td><td>12/25/2020 1:21 PM EDT</td><td></td><td> </td> 12/25/2020 01:21:00 PM EDT [facility] ECG TRANSESOPHAG R-T 2D W/PRB IMG ACQUISJ I&R <td>ECHO CARDIOGRAM TRANSESOPHAGEAL</td><td>Routine</td><td>12/25/2020 11:37 AM EDT</td><td></td><td> </td> 12/25/2020 11:37:19 AM EDT [facility] GLUC BLD GLUC MNTR DEV CLEARED FDA SPEC HOME USE <td>P OCT GLUCOSE</td><td>Routine</td><td>12/25/2020 10:41 AM EDT</td><td></td><td> </td> 12/25/2020 10:41:00 AM EDT [facility] BLOOD TYPING ABO <td>PREPARE RBC</td><td>Rout ine</td><td>12/25/2020 12:01 AM EDT</td><td></td><td></td> 12/25/2020 12:01:00 AM EDT [facility] URNLS DIP STICK/TABLET RGNT AUTO W/O MICROSCOPY <td>UR INALYSIS W/O MICRO</td><td>Routine</td><td>12/23/2020 11:35 AM EDT</td><td> Nonrheumatic aortic valve stenosis</td><td> </td> 12/23/2020 11:35:00 AM EDT Nonrheumatic aortic valve stenosis [facility] Nonrheumatic aortic valve stenosis ECG ROUTINE ECG W/LEAST 12 LDS TRCG ONLY W/O I&R <td>E CG 12- LEAD</td><td>Routine</td><td>12/23/2020 10:54 AM EDT</td><td> Nonrheumatic aortic valve stenosis</td><td></td> 12/23/2020 10:54:27 AM EDT Nonrheumatic aortic valve stenosis [facility] Nonrheumatic aortic valve stenosis ROOM TEMP AB SCREEN <td>ROOM TEMP AB SCREEN</td> <td>Routine</td><td>12/23/2020 10:35 AM EDT</td><td> Nonrheumatic aortic valve stenosis</td><td> </td> 12/23/2020 10:35:00 AM EDT Nonrheumatic aortic valve stenosis [facility] Nonrheumatic aortic valve stenosis BILIRUBIN UNCONJ (INDIRECT) <td>BILIRUBIN UNCONJ (INDIRECT)</td><td>Routine</td><td>12/23/2020 10:35 AM EDT</td><td></td><td> </td> 12/23/2020 10:35:00 AM EDT [facility] NT PRO BNP <td>NT PRO BNP</td><td>Routi ne</td><td>12/23/2020 10:35 AM EDT</td><td> Nonrheumatic aortic valve stenosis</td><td> </td> 12/23/2020 10:35:00 AM EDT Nonrheumatic aortic valve stenosis [facility] Nonrheumatic aortic valve stenosis THROMBOPLASTIN TIME PARTIAL PLASMA/WHOLE BLOOD <td>APTT</td><td>Routine</td><td>12/23/2020 10:35 AM EDT</td><td> Nonrheumatic aortic valve stenosis</td><td> </td> 12/23/2020 10:35:00 AM EDT Nonrheumatic aortic valve stenosis [facility] Nonrheumatic aortic valve stenosis PROTHROMBIN TIME <td>PROTIME-INR</td><td>Rout ine</td><td>12/23/2020 10:35 AM EDT</td><td> Nonrheumatic aortic valve stenosis</td><td> </td> 12/23/2020 10:35:00 AM EDT Nonrheumatic aortic valve stenosis [facility] Nonrheumatic aortic valve stenosis BLOOD COUNT COMPLETE AUTO&AUTO DIFRNTL WBC COUNT <td>C BC AND DIFFERENTIAL</td><td>Routine</td><td>12/23/2020 10:35 AM EDT</td><td> Nonrheumatic aortic valve stenosis</td><td> </td> 12/23/2020 10:35:00 AM EDT Nonrheumatic aortic valve stenosis [facility] Nonrheumatic aortic valve stenosis BLOOD TYPING ABO <td>TYPE AND SCREEN</td><td> Routine</td><td>12/23/2020 10:35 AM EDT</td><td> Nonrheumatic aortic valve stenosis</td><td> </td> 12/23/2020 10:35:00 AM EDT Nonrheumatic aortic valve stenosis [facility] Nonrheumatic aortic valve stenosis HEMOGLOBIN GLYCOSYLATED A1C <td>HEMOGLOBIN A1C</td><td>Routine</td><td>12/23/2020 10:35 AM EDT</td><td> Nonrheumatic aortic valve stenosis</td><td> </td> 12/23/2020 10:35:00 AM EDT Nonrheumatic aortic valve stenosis [facility] Nonrheumatic aortic valve stenosis BILIRUBIN DIRECT <td>BILIRUBIN, DIRECT</td><t d>Routine</td><td>12/23/2020 10:35 AM EDT</td><td></td><td> </td> 12/23/2020 10:35:00 AM EDT [facility] COMPREHENSIVE METABOLIC PANEL <td>COMPREHENSIVE METABO LIC PANEL</td><td>Routine</td><td>12/23/2020 10:35 AM EDT</td><td> Nonrheumatic aortic valve stenosis</td><td> </td> 12/23/2020 10:35:00 AM EDT Nonrheumatic aortic valve stenosis [facility] Nonrheumatic aortic valve stenosis OFFICE OUTPATIENT VISIT 25 MINUTES 12/04/2020 12:00:00 AM EDT [facility] ([facility] DUPLEX SCAN EXTRACRANIAL ART COMPL BI STUDY <td>US CAR OTID BILATERAL</td><td>Pending Discharge</td><td>11/27/2020 1:55 PM EDT</td><td></td><td> </td> 11/27/2020 01:55:18 PM EDT [facility] BEDSIDE PULMONARY FUNCTION TEST <td>BEDSIDE PULMONARY FUNCTION TEST</td><td>Routine</td><td>11/27/2020 12:34 PM EDT</td><td></td><td></td> 11/27/2020 12:34:45 PM EDT [facility] CARDIAC CATHETERIZATION <td>CARDIAC CATHETERIZATION</td><td>Routine</td><td>11/27/2020 12:07 PM EDT</td><td> Aortic valve stenosis, etiology of cardiac valve disease unspecified Shortness of breath Stable angina Atherosclerosis of yocha dehe coronary artery of yocha dehe heart, angina presence unspecified Systolic heart failure, unspecified HF chronicity</td><td> </td> 11/27/2020 12:07:52 PM EDT Systolic heart failure, unspecified HF c hronicityAtherosclerosis of yocha dehe coronary artery of y[place] dehe heart, angina presence unspecifiedStable anginaShortness of breathAortic valve stenosis, etiology of cardiac valve disease unspecified [facility] Systolic heart failure, unspecified HF c hronicity Atherosclerosis of yocha dehe coronary arter y of yocha dehe heart, angina presence unspecified Stable angina Shortness of breath Aortic valve stenosis, etiology of cardi ac valve disease unspecified DOP ECHOCARD COLOR FLOW VELOCITY MAPPING <td>TRANSESOP HAGEAL ECHO DOPPLER COLOR FLOW AND PULSED WAVE</td><td>Routine</td><td>11/27/2020 10:03 AM EDT</td><td></td><td> </td> 11/27/2020 10:03:51 AM EDT [facility] COVID/FLU AB/RSV PCR <td>COVID/FLU AB/RSV PCR</td ><td>STAT</td><td>11/27/2020 6:56 AM EDT</td><td></td><td> </td> 11/27/2020 06:56:00 AM EDT [facility] BLOOD COUNT COMPLETE AUTOMATED <td>CBC</td><td>STAT</t d><td>11/27/2020 6:56 AM EDT</td><td></td><td> </td> 11/27/2020 06:56:00 AM EDT [facility] BASIC METABOLIC PANEL CALCIUM TOTAL <td>BASIC METABOLI C PANEL</td><td>STAT</td><td>11/27/2020 6:56 AM EDT</td><td></td><td> </td> 11/27/2020 06:56:00 AM EDT [facility] ECG ROUTINE ECG W/LEAST 12 LDS TRCG ONLY W/O I&R <td>E CG 12- LEAD</td><td>Routine</td><td>11/27/2020 6:55 AM EDT</td><td></td><td></td> 11/27/2020 06:55:07 AM EDT [facility] ECG ROUTINE ECG W/LEAST 12 LDS W/I&R <td>POCT AMB EKG</td><td>Routine</td><td>11/25/2020 4:46 PM EDT</td><td> Coronary artery disease involving yocha dehe heart, angina presence unspecified, unspecified vessel or lesion type 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 Disease of thyroid gland Stable angina pectoris</td><td> </td> 11/25/2020 04:46:00 PM EDT Stable angina pectorisDisease of thyroid gland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Coronary artery disease involving yocha dehe heart, angina presence unspecified, unspecified vessel or lesion type [facility] Stable angina pectoris Disease of thyroid gland Atherosclerosis of y[place] dehe coronary arter y of yocha dehe heart with unstable angina pectoris Coronary artery disease involving yocha dehe heart, angina presence unspecified, unspecified vessel or lesion type OFFICE OUTPATIENT VISIT 15 MINUTES 11/21/2020 12:00:00 AM EDT [facility] ([facility] OFFICE OUTPATIENT VISIT 15 MINUTES 11/20/2020 12:00:00 AM EDT [facility] ([facility] OFFICE OUTPATIENT VISIT 25 MINUTES 11/19/2020 12:00:00 AM EDT [facility] ([facility] Spirometry 10/08/2020 12:00:00 AM EDT M [facility] ([facility]) OFFICE OUTPATIENT VISIT 25 MINUTES 10/08/2020 12:00:00 AM EDT [facility] ([facility]) OFFICE OUTPATIENT VISIT 15 MINUTES 09/23/2020 12:00:00 AM EDT [facility] ([facility]) OFFICE OUTPATIENT VISIT 15 MINUTES 08/30/2020 12:00:00 AM EDT [facility] ([facility]) OFFICE OUTPATIENT VISIT 15 MINUTES 08/28/2020 12:00:00 AM EDT [facility] ([facility] OFFICE OUTPATIENT VISIT 15 MINUTES 07/24/2020 12:00:00 AM EST [facility] ([facility]) OFFICE OUTPATIENT VISIT 15 MINUTES 07/17/2020 12:00:00 AM EST [facility] ([facility]) Injection Fee 07/16/2020 12:00:00 AM EST [facility] ([facility]) OFFICE OUTPATIENT VISIT 25 MINUTES 07/16/2020 12:00:00 AM EST [facility] ([facility]) Results ID Date Data Source [id number] 05/01/2021 10:40:00 AM EST [facility] Name Value Range Interpretation Code Description Data Ximena rce(s) Supporting Document(s) SARS coronavirus 2 RNA [Presence] in Res piratory specimen by GLORIA with probe detection POSITIVE [facility] This lab was ordered by [facility] a nd reported by [facility]. ID Date Data Source [id number] 05/01/2021 10:40:00 AM EST [facility] ([facility] Name Value Range Interpretation Code [...] results) [facility] ([facility] ) [place] % 5.3 % 2.0-8.0 Normal (applies to [...] Normal (applies to n on-numeric results) [facility] ([facility] Immature Granulocyte % 1.0 % 0-3.0 Normal (applies to non-n umeric results) [facility] ([facility] Neutrophils # 13.4 10 1.5-8.5 Above high normal [facility] ([facility] Lymph # 0.6 10 1.5-5.0 Below low normal [facility] ( [facility] Eos # 0.1 10 0.0-0.5 Normal (applies to non-numeric resul ts) [facility] ([facility] [place] # 0.8 10 0.0-0.8 Normal (applies to non-numeric resul ts) [facility] ([facility] Baso # 0.1 10 0.0-0.2 Normal (applies to non-numeric resul ts) [facility] ([facility] ID Date Data Source [id number] 05/01/2021 10:40:00 AM EST [facility] ([facility] Name Value Range Interpretation Code Description Data Ximena rce(s) Supporting Document(s) Procalcitonin [Mass/volume] in Serum or Plasma Laboratory test r esult Normal (applies to non-numeric results) [facility] <content>SEPSIS INTERPRETATION OF RESULT [...] strongly encouraged.</content>
<content></content> ID Date Data Source [id number] 05/01/2021 10:40:00 AM EST [facility] ([facility] Name Value Range Interpretation Code Description Data Ximena rce(s) Supporting Document(s) Influenza A Amplification Laboratory test result Normal (applies to non- numeric results) [facility] ([facility] ) Negative results do not preclude influen za or RSV virus infection and should not be used as the sole basis for treatment or other patient management decisions. Influenza B Amplification Laboratory test result Normal (applies to non- numeric results) [facility] ([facility] ) Negative results do not preclude influen za or RSV virus infection and should not be used as the sole basis for treatment or other patient management decisions. RSV Amplification Laboratory test result Normal (applies to non-numeric results) [facility] ([facility] ) Negative results do not preclude influen za or RSV virus infection and should not be used as the sole basis for treatment or other patient management decisions. Laboratory test finding (navigational concept) Laboratory test r esult Abnormal (applies to non-numeric results) [facility] ASSAY INFORMATION: Real Time RT-PCR test . DISCLAIMER: Testing was performed using the [employer] SARS-CoV-2 test. This test was developed and its performance characteristics determined by [employer]. This test has not been FDA cleared [...] or revoked sooner. ID Date Data Source [id number] 05/01/2021 10:40:00 AM EST [facility] ([facility] Name Value Range Interpretation Code Description Data Ximena rce(s) Supporting Document(s) Lactate [Mass/volume] in Serum or Plasma 1.5 mmol/L 0.4-2.0 Normal (applies to non-numeric results) [facility] ([facility]) Y/N query for Sepsis Lactate Rule: Y ID Date Data Source [id number] 05/01/2021 10:39:00 AM EST [facility] ([facility] Name Value Range Interpretation Code Description Data Ximena rce(s) Supporting Document(s) CPK Creatine Phosphokinase 65 U/L 39-308 Ester l (applies to non-numeric results) [facility] ([facility] ) CK-MB Value Mass 2.2 ng/mL Normal (applies to non-numeric results) [facility] ([facility] MB/CK Relative Index 3.38 Normal (applies to non-num santa results) [facility] ([facility] <content>DIAGNOSIS CRITERIA</content>
<content>MMB ng/ml Relative Index (RI)</content>
<content>NON-AMI < or = 5 N/A</content>
<content>CUEVAS ZONE > 5 < or = 4</content>
<content>AMI > 5 > 4</content>
<content></content> Laboratory test finding (navigational concept) 53.0 ng/L 3 .0-78 Normal (applies to non-numeric results) [facility] ([facility] ID Date Data Source [id number] 05/01/2021 10:39:00 AM EST [facility] ([facility] Name Value Range Interpretation Code Description Data Ximena rce(s) Supporting Document(s) Fibrinogen [Mass/volume] in Platelet poor plasma by Coagulat ion assay 566 mg/dL 268-480 Above high normal [facility] ([facility] ID Date Data Source [id number] 05/01/2021 10:39:00 AM EST [facility] ([facility] Name Value Range Interpretation Code Description Data Ximena rce(s) Supporting Document(s) Prothrombin Time 12.8 s 12.7-14.5 Normal (applies to non-numeric results) [facility] ([facility] Partial Thromboplastin Time 26.3 s 25.9-37.0 Norm al (applies to non-numeric results) [facility] ([facility] ) Inr 0.93 Normal (applies to non-numeric resul ts) [facility] ([facility] THERAPUTIC HUMAN INR VALUES INDICATIONS NORMAL RANGES PROPHYLAXIS/TREATMENT OF: VENOUS THROMBOSIS 2.0-3.0 PULMONARY EMBOLISM 2.0-3.0 PREVENTION OF SYSTEMIC EMBOLISM FROM: TISSUE HEART VALVES 2.0-3.0 ACUTE MYOCARDIAL INFARCTION 2.0-3.0 VALVULAR HEART DISEASE 2.0-3.0 ATRIAL FIBRILLATION 2.0-3.0 MECHANICAL VALVES(HIGH RISK) 2.5-3.5 RECURRENT MYOCARDIAL INFARCTION 2.5-3.5 ID Date Data Source [id number] 05/01/2021 10:39:00 AM EST [facility] ([facility] Name Value Range Interpretation Code Description Data Ximena rce(s) Supporting Document(s) Venous PH 7.391 units 7.330-7.430 Normal (applies to non-numeric res ults) [facility] ([facility] Venous Partial Pressure Co2 43.4 mmHg 38.0-50.0 Norm al (applies to non-numeric results) [facility] ([facility] ) Venous Total Co2 27.1 meq/L 24.0-28.0 Normal (applies to non-numeric results) [facility] ([facility] Venous Hco3 25.7 meq/L 23.0-27.0 Normal (applies to non-numeric resu lts) [facility] ([facility] Venous Partial Pressure O2 47.6 mmHg 30.0-50.0 Ester l (applies to non-numeric results) [facility] ([facility] ) Venous Standard Hco3 24.6 meq/L Normal (applies to non-num santa results) [facility] ([facility] Venous Base Excess 0.5 Normal (applies to non-numer ic results) [facility] ([facility] Venous O2 Saturation 83.3 % 60.0-80.0 Above high normal [facility] ([facility] ID Date Data Source [id number] 05/01/2021 10:39:00 AM EST [facility] Name Value Range Interpretation Code Description Data Ximena rce(s) Supporting Document(s) Lactate dehydrogenase [Enzymatic activity/volume] in Serum o r Plasma 290 U/L 87-241 Above high normal [facility] ([facility] Magnesium [Mass/volume] in Serum or Plasma 2.0 mg/dL 1.8-2 .4 Normal (applies to non-numeric results) [facility] ([facility]) Thyrotropin [Units/volume] in Serum or Plasma 1.050 uIU/ML 0. 358-3.740 Normal (applies to non-numeric results) [facility] Natriuretic peptide.B prohormone N-Terminal [Mass/volu me] in Serum or Plasma 453 pg/mL Above high normal [facility] ([facility] Ferritin [Mass/volume] in Serum or Plasma 80 ng/mL 26-388 Normal (applies to non-numeric results) [facility] ([facility]) C reactive protein [Mass/volume] in Serum or Plasma by High sensitivity method 2.55 mg/dL 0.00-0.30 Above high normal [facility] ([facility] ID Date Data Source [id number] 05/01/2021 10:39:00 AM EST [facility] ([facility] Name Value Range Interpretation Code Description Data Ximena rce(s) Supporting Document(s) Blood Urea Nitrogen 11 mg/dL 7-18 Normal (applies to non-nume laila results) [facility] ([facility] Glucose, Fasting 79 mg/dL 70-100 Normal (applies to non-numeric results) [facility] ([facility] Glomerular Filtration Rate Laboratory test result Normal (applies to non- numeric results) [facility] ([facility] ) <content>Units are mL/min/1.73 m2</content>
<content></content>
<content>Chronic Kidney Disease Staging per NKF:</content>
<content></content>
<content>Stage I & II GFR >=60 Normal to Mildly Decreased</content>
<content>Stage III GFR 30- 59 Moderately Decreased</content>
<content>Stage IV GFR 15-29 Severely Decreased</content>
<content>Stage V GFR <15 Very Little GFR Left</content>
<content>ESRD GFR <15 on ELECT[employer] PUBLISHER</content>
<content></content> Creatinine For GFR 1.00 mg/dL 0.70-1.30 Normal (applies to non -numeric results) [facility] ([facility] Sodium Level 136 meq/L 136-145 Normal (applies to non-numeric res ults) [facility] ([facility] Potassium Serum 3.8 meq/L 3.5-5.1 Normal (applies to non-numeric results) [facility] ([facility] Chloride Level 101 meq/L 98-107 Normal (applies to non-numeric r esults) [facility] ([facility] Anion Gap 7 meq/L 8-16 Below low normal [facility] ( [facility] Carbon Dioxide Level 28 meq/L 21-32 Normal (applies to non-num santa results) [facility] ([facility] Calcium Level 10.2 mg/dL 8.8-10.2 Normal (applies to non-numeric re sults) [facility] ([facility] ID Date Data Source [id number] 05/01/2021 10:39:00 AM EST [facility] ([facility] Name Value Range Interpretation Code Description Data Ximena rce(s) Supporting Document(s) Ast/Sgot 23 U/L 7-37 Normal (applies to non-numeric resul ts) [facility] ([facility] Alt/SGPT 33 U/L 12-78 Normal (applies to non-numeric resul ts) [facility] ([facility] Alkaline Phosphatase 79 U/L 45-117 Normal (applies to non-num santa results) [facility] ([facility] Bilirubin,Direct Laboratory test result 0.0-0.2 Normal ( applies to non-numeric results) [facility] ([facility] Bilirubin,Total 0.4 mg/dL 0.2-1.0 Normal (applies to non-numeric results) [facility] ([facility] Total Protein 7.7 GM/DL 6.4-8.2 Normal (applies to non-numeric re sults) [facility] ([facility] Albumin/Globulin Ratio 0.9 Normal (applies to non-n umeric results) [facility] ([facility] Albumin 3.6 GM/DL 3.2-5.2 Normal (applies to non-numeric resul ts) [facility] ([facility] ID Date Data Source [id number] 02/24/2021 02:42:00 PM EDT [facility] ([facility] Name Value Range Interpretation Code Description Data Ximena rce(s) Supporting Document(s) Thyrotropin [Units/volume] in Serum or Plasma 2.449 ulU/mL 0.60-4.8 [facility] ([facility] ID Date Data Source [id number] 02/21/2021 11:28:00 AM EDT [facility] ([facility] Name Value Range Interpretation Code Description Data Ximena rce(s) Supporting Document(s) IgG [Mass/volume] in Serum or Plasma 955 mg/dL [id number] [facility] ([facility]) ID Date Data Source [id number] 02/21/2021 11:28:00 AM EDT [facility] ([facility] Name Value Range Interpretation Code Description Data Ximena rce(s) Supporting Document(s) Laboratory test finding (navigational concept) Laboratory test result [facility] ([facility] COMPREHENSIVE METABOLIC PANEL Laboratory test finding (navigational [...] [facility]) ID Date Data Source [id number] 02/21/2021 11:28:00 AM EDT [facility] ([facility] [...] [facility]) ID Date Data Source [id number] 02/22/2021 07:21:00 AM EDT [facility] Name Value Range Interpretation Code Description Data Ximena rce(s) Supporting Document(s) IgG [Mass/volume] in Serum or Plasma 955 mg/dL [id number] [facility] ID Date Data Source [id number] 02/21/2021 12:08:00 PM EDT [facility] Name Value Range Interpretation Code Description Data Ximena rce(s) Supporting Document(s) COMPREHENSIVE METABOLIC PANEL [facility] COMPREHENSIVE METABOLIC PANEL Sodium [Moles/volume] in Serum or Plasma 136 mEq/L 134 - 153 [facility] Potassium [Moles/volume] in Serum or Plasma 4.3 mEq/L 3.6 - 5.0 [facility] Chloride [Moles/volume] in Serum or Plasma 99 mEq/L 98 - 107 [facility] Carbon dioxide, total [Moles/volume] in Serum or Plasma 23 MEQ/L 22 - 30 [facility] Glucose [Mass/volume] in Serum or Plasma 126 MG/DL 70 - 99 H [facility] BUN 22 MG/DL 7 - 21 [facility] Creatinine [Mass/volume] in Serum or Plasma 0.8 MG/DL 0.7 - 1.5 [facility] BUN/CREAT 28 8 - 27 [facility] Protein [Mass/volume] in Serum or Plasma 7.0 G/DL 6.3 - 8.2 [facility] Albumin [Mass/volume] in Serum or Plasma 4.7 G/DL 3.9 - 5.0 [facility] Globulin [Mass/volume] in Serum by calculation 2.3 GM/DL 2.4 - 3.2 L [facility] A/G RATIO 2.0 0.8 - 2.0 [facility] Calcium [Mass/volume] in Serum or Plasma 9.9 MG/DL 8.4 - 10.2 [facility] Bilirubin.total [Mass/volume] in Serum or Plasma <0.7 MG/DL 0.2 - 1.3 [facility] Alkaline phosphatase [Enzymatic activity/volume] in Serum or Plasma 71 U/L 38 - 126 [facility] Aspartate aminotransferase [Enzymatic activity/volume] in Serum or Plasma 26 U/L 5 - 40 [facility] Alanine aminotransferase [Enzymatic activity/volume] in Seru m or Plasma 22 U/L 7 - 56 [facility] Anion gap 3 in Serum or Plasma 14.0 mmol/L 8.0 - 16.0 [facility] AGE 70 yrs [facility] NON-AA GFR >60 mL/min [facility] AFR AMER GFR >60 mL/min [facility] Male GFR In terprentation 20-49 [...] >32 mL/min Normal ID Date Data Source [id number] 02/21/2021 11:36:00 AM EDT [facility] Name Value Range Interpretation Code Description Data Ximena rce(s) Supporting Document(s) CBC W/AUTOMATED DIFF [facility] COMPLETE BLOOD COUNT Leukocytes [#/volume] in Blood by Automated count 17.4 10^3/uL 4.2 - 11.0 H [facility] Erythrocytes [#/volume] in Blood by Automated count 4.26 10^6/uL 4. 50 - 6.30 L [facility] Hemoglobin [Mass/volume] in Blood 13.7 g/dL 14.0 - 16.0 L [facility] Hematocrit [Volume Fraction] of Blood by Automated count 41.1 % 4 1.0 - 51.0 [facility] Erythrocyte mean corpuscular volume [Entitic volume] by Auto mated count 96.5 fL 80.0 - 94.0 H [facility] Erythrocyte mean corpuscular hemoglobin [Entitic mass] by Automated count 32.2 pg 27.0 - 34.0 [facility] Erythrocyte mean corpuscular hemoglobin concentration [Mass/volume] by Automated count 33.3 g/dL 31.0 - 36.0 [facility] Erythrocyte distribution width [Ratio] by Automated count 13.4 % 11.5 - 14.8 [facility] Platelets [#/volume] in Blood by Automated count 247 10^3/uL 150 - 45 0 [facility] Platelet mean volume [Entitic volume] in Blood by Automated count 8.6 fL 7.4 - 10.4 [facility] Neutrophils/100 leukocytes in Blood by Automated count 89.8 % 37. 0 - 80.0 H [facility] Lymphocytes/100 leukocytes in Blood by Manual count 5.5 % 25.0 - 40.0 L [facility] Monocytes/100 leukocytes in Blood by Automated count 2.9 % 3.0 - 8.0 L [facility] Eosinophils/100 leukocytes in Blood by Automated count 0.4 % 0.0 - 7.0 [facility] Basophils/100 leukocytes in Blood by Automated count 0.4 % 0.0 - 2.0 [facility] %IG 1.0 % 0.0 - 0.0 H [facility] al %NRBC 0.0 % 0.0 - 0.0 [facility] al Neutrophils [#/volume] in Blood by Automated count 15.59 10^3/uL 2. 00 - 6.90 H [facility] Lymphocytes [#/volume] in Blood by Automated count 0.96 10^3/uL 0.60 - 3.40 [facility] Monocytes [#/volume] in Blood by Automated count 0.51 10^3/uL 0.00 - 0.90 [facility] Eosinophils [#/volume] in Blood by Automated count 0.07 10^3/uL 0.00 - 0.70 [facility] Basophils [#/volume] in Blood by Automated count 0.07 10^3/uL 0.00 - 0.20 [facility] #IG 0.18 10^3/uL 0.00 - 0.10 [facility] #NRBC 0.00 10^3/uL 0.00 - 0.00 [facility]ital MANUAL DIFF NOT INDICATED [facility] RBC MORPH NOT INDICATED [facility] ID Date Data Source [id number] 02/21/2021 11:28:00 AM EDT MED[facility] ([facility] Name Value Range Interpretation Code Description Data Ximena rce(s) Supporting Document(s) Comprehensive Metabo Laboratory test result MEDENT ([facility] COMPREHENSIVE METABOLIC PANEL Sodium 136 meq/L 134-153 [facility] ([facility] Potassium 4.3 meq/L 3.6-5.0 [facility] ([facility] Chloride 99 meq/L 98-107 [facility] Co2 23 meq/L 22-30 [facility] ([facility] Glucose 126 mg/dL 70-99 Above high normal MEDENT ([facility] BUN 22 mg/dL 7-21 Above high normal MED[facility] ([facility] Creatinine 0.8 mg/dL 0.7-1.5 MED[facility] ([facility] BUN/Creat 28 8-27 Above high normal MEDENT ([facility] Albumin 4.7 g/dL 3.9-5.0 [facility] ([facility] Total Protein 7.0 g/dL 6.3-8.2 [facility] ([facility] Calcium 9.9 mg/dL 8.4-10.2 [facility] ([facility] Globulin 2.3 GM/DL 2.4-3.2 Below low normal MEDENT ( [facility] A/G Ratio 2.0 0.8-2.0 [facility] ([facility] Alkaline Phos 71 U/L 38-126 [facility] ([facility] Total Bili Laboratory test result 0.2-1.3 ME DENT ([facility] Sgot/Ast 26 U/L 5-40 [facility] ([facility] Anion Gap 14.0 mmol/L 8.0-16.0 [facility] ([facility] SGPT/Alt 22 U/L 7-56 [facility] ([facility] Afr Amer GFR Laboratory test result [facility] ([facility] Male GFR Interprentation 20-49 yrs >60 [...] Normal Age 70 yrs MED[facility] ([facility] Non-Aa GFR Laboratory test result ME DENT ([facility] ID Date Data Source [id number] 02/21/2021 11:28:00 AM EDT MEDENT ([facility] Name Value Range Interpretation Code Description Data Ximena rce(s) Supporting Document(s) IgG [Mass/volume] in Serum or Plasma 955 mg/dL [phone] [facility] ([facility] ID Date Data Source [id number] 02/21/2021 11:28:00 AM EDT MED[facility] ([facility] Name Value Range Interpretation Code Description Data Ximena rce(s) Supporting Document(s) CBC W/Automated Diff Laboratory test result [facility] ([facility] COMPLETE BLOOD COUNT RBC 4.26 10^6/uL 4.50-6.30 Below low normal [facility] ([facility] WBC 17.4 10^3/uL 4.2-11.0 Above high normal MEDEN T ([facility] Hematocrit 41.1 % 41.0-51.0 [facility] ([facility] Hemoglobin 13.7 g/dL 14.0-16.0 Below low normal MED[facility] ( [facility] MCV 96.5 fL 80.0-94.0 Above high normal [facility] ([facility] MCH 32.2 pg 27.0-34.0 [facility] MCHC 33.3 g/dL 31.0-36.0 [facility] RDW 13.4 % 11.5-14.8 [facility] ([facility] Platelets 247 10^3/uL 150-450 [facility] ([facility] Neut 89.8 % 37.0-80.0 Above high normal MED[facility] ([facility] Lymph 5.5 % 25.0-40.0 Below low normal MED[facility] ( [facility] MPV 8.6 fL 7.4-10.4 [facility] ([facility] Eos 0.4 % 0.0-7.0 [facility] ([facility] [place] 2.9 % 3.0-8.0 Below low normal [facility] Baso 0.4 % 0.0-2.0 [facility] ([facility] %Ig 1.0 % 0.0-0.0 Above high normal [facility] ([facility] %NRBC 0.0 % 0.0-0.0 [facility] #Neut 15.59 10^3/uL 2.00-6.90 Above high normal MEDE NT ([facility] #Lymph 0.96 10^3/uL 0.60-3.40 [facility] ([facility] #[place] 0.51 10^3/uL 0.00-0.90 [facility] ([facility] #Eos 0.07 10^3/uL 0.00-0.70 [facility] ([facility] #Baso 0.07 10^3/uL 0.00-0.20 [facility] ([facility] #Ig 0.18 10^3/uL 0.00-0.10 Above high normal MEDEN T ([facility] #NRBC 0.00 10^3/uL 0.00-0.00 [facility] ([facility] Manual Diff Laboratory test result M EDBARBARA ([facility] RBC Morph Laboratory test result ME CARLOS ALBERTO ([facility] ID Date Data Source [id number] 02/19/2021 10:19:05 AM EDT [facility] Name Value Range Interpretation Code Description Data Ximena rce(s) Supporting Document(s) &PDF [facility] GWEUHh0rCqTCZhHi70/JMGipQWXdg8NiVOyvJFa8NSaiOLGxJ6RxdTduIMOERnFpAlXAMQ5ZFAPNCLzF hdG [file] [facility]+Hj898Cjo+84oe9jr9sCaohAxGOBI/gXdXw/EXU [file] ICAgICAgICAgICAgICAgICAgICAgICAgICAgICAgIC AgICAgICAgICAgICAgICAgICAgICAgICANCiAgICAgICAgICAgICAgICAgICAgICAgICAgICAgICAgIC AgICAgICAgICAgICAgICAgICAgICAgICAgICAgICAgICAgICAgICAgICAgICAgICAgICAgICAgICAgIC AgICAgICANCiAgICAgICAgICAgICAgICAgICAgICAg ICAgICAgICAgICAgICAgICAgICAgICAgICAgICAgICAgICAgICAgICAgICAgICAgICAgICAgICAgICAg ICAgICAgICAgICAgICAgICANCiAgICAgICAgICAgICAgICAgICAgICAgICAgICAgICAgICAgICAgICAg ICAgICAgICAgICAgICAgICAgICAgICAgICAgICAgIC AgICAgICAgICAgICAgICAgICAgICAgICAgICANCiAgICAgICAgICAgICAgICAgICAgICAgICAgICAgIC AgICAgICAgICAgICAgICAgICAgICAgICAgICAgICAgICAgICAgICAgICAgICAgICAgICAgICAgICAgIC AgICAgICAgICANCiAgICAgICAgICAgICAgICAgICAg ICAgICAgICAgICAgICAgICAgICAgICAgICAgICAgICAgICAgICAgICAgICAgICAgICAgICAgICAgICAg ICAgICAgICAgICAgICAgICAgICANCiAgICAgICAgICAgICAgICAgICAgICAgICAgICAgICAgICAgICAg ICAgICAgICAgICAgICAgICAgICAgICAgICAgICAgIC AgICAgICAgICAgICAgICAgICAgICAgICAgICAgICANCiAgICAgICAgICAgICAgICAgICAgICAgICAgIC AgICAgICAgICAgICAgICAgICAgICAgICAgICAgICAgICAgICAgICAgICAgICAgICAgICAgICAgICAgIC AgICAgICAgICAgICANCiAgICAgICAgICAgICAgICAg ICAgICAgICAgICAgICAgICAgICAgICAgICAgICAgICAgICAgICAgICAgICAgICAgICAgICAgICAgICAg ICAgICAgICAgICAgICAgICAgICAgICANCiAgICAgICAgICAgICAgICAgICAgICAgICAgICAgICAgICAg ICAgICAgICAgICAgICAgICAgICAgICAgICAgICAgIC AgICAgICAgICAgICAgICAgICAgICAgICAgICAgICAgICANCjw/dHBmM3gqyJYhorA1M4pcBw0OVv7SHS 7px7NzOMJbJQkevoYuIroDTjSiWFCcEsuEKes7HPbgGZ1QdURcT6PiO1GpDFogEI2THTSzEHEdqSQwBD CbQKOfCwG7GDQwJBgsGK9HdLPxZYyuQEBrSXErCyCw BTChRNFdVEQwHW6MKQPmP644mhOlRx0OOz7XWtGiDH4opq0SDFVfDTEaTyoABhu4EUgqET7CfVMwI5Wv yYQeo2xFQzLcB0WAJQRiBAYyQy1TRVJaVsStHTEwCEcpRZ5tJJVlHDZYqMycrwL7OJ1XPC8hvoAqPZ2B AxMjAv6pDn2RJtNmZ0FiY5QcRDPqSNORBXazSV1KCH JuGLJ0BOC1NZKnSZQPEhYsU52hPD8SX5Pwv06iKkY2KDVmRfIpCXbiNV46mTsbduSsqDXycQofWD4RRd 4+ICdzzxZsNbgRXonhQKRDPzKwMOMKOwZeRHFcWBUfGFGgNfE4MxLpKq1UCTQzDHQhISXnTjEcBKJwZM OoCWfuDEFqCYZ5AWs8ZCVuDSGyWU4TYaDmJTJzEaVp BtIfWZXmBIHnek7SLUVhIYLcLFL3JIKuZDUmUKLhHAvlJOTmFNKtHEd7CAHlWDGlEO9ZZdJvBJVmHUH3 ONEnBUPqOVIksx2EERBiQVGvFRm0XTTzMMNgPTLzXJuuKQCeWQU0ZPW3NVCzQNNvSY9AJlFtNZVqMPtv DvbrOMGwCJIoxm7YLGUwDUAvYaWnZBKdZNIuFWWjET ioSRYhGQR8TixkUCHcURDvZW9QRbVdQKFyLOr6NTrzJHXdTMNiap3RCTXoNTZwNKL5TKWqEGShNHRwAP tyIAKtFXZ3KrWfEHWgERLfAG5PKyBbTRIlEMg9AgWgBIXxHBUaua4AQYNqFLPvVDVwLMAyFHLfIXDeQF tqRTZnJMP0WLn9CPQnFOXtYE8KKrRoJTWzLECoBUBk TRQbAGAmiy1DFKInUZMmHXSxOJJaQFBuXSUvYXbcRBPtSWL6MgC5FWEtTAFwCC8KIgTsOQEtJMR8KXEa VIPbJKZqlo5AMECqWOBgVfowWVCxUCDgGPSkFYzcVPMdJOT3HOW6ZQVrLZWeAK8WFvOiRJIrFBcdOGYm UVLsXGGsdj7JWDJeQOVvFhA1ZZSzYGDbARFmETxbTM SjZGV8ODD7PPZbCJPdYW7OYcQpVRLtBcl3GvZxMFZnBOByzb1SUGBtGWAgPRR5TkKaYQWbETIlCKazYA QyVEIeQZZgKLSlYWUoTW5DLzBxVZEhTtWzHdAoHVAmWIQtrm4AZEBiUXGcGMArXrBpQVIrKWJfCVxxBC TuJQDgCZTaEOLcLLSfMB7FGtCtRGLcEQT9TVAzQOAh SMXkmz7CNFHdOJN4VePnOCLaOLWcFOKkCLstUVFpFKKzAOCoREZmQXHrIW1PWqVpOZGoEDUkWqGdFRDh NRNjbk9TEMJoDBN5DDKwNRNfUPEnEJXoFGaeSETqPIXlGGlcRTTlKRYsTN4CLnLdTZZoTxGsUvfhEUOf LELztr6ZFOHfQHG1JEH1MeJfTQJuNHJrMAgyTROmIA M5TRebDBFgSBBkYG6LPvVsTJQzQdCeKrGuYLXuBNCxzz4WsSVxiKdskp3XVFxJJo3YpOhxWVNyTOrkBy 0dfPG2YrNlSIZKXd1OpaPjISAbCZBTGUsjLQOtOVC0JfSgLAKcDKZ3PMM8UgUnCWDyElY0INW9JswmTZ uyWkG5XGneDHWxRrJfBGRzPgu1KnC1RCW8GAB4DFL2 OGEwODE+AT3aMLk+Vk1Ik7ZudkF1gqAtAHp1IRHbHG7RTTJIY5XIOf== ID Date Data Source URINE CULTURE 02/18/2021 12:00:00 AM EDT W1 ([facility]) Name Value Range Interpretation Code Description Data Ximena rce(s) Supporting Document(s) URINE CULTURE eCW1 ([facility]) ID Date Data Source UA URINALYSIS 02/18/2021 12:00:00 AM EDT eCW1 ([facility]) Name Value Range Interpretation Code Description Data Ximena rce(s) Supporting Document(s) UA URINALYSIS eCW1 ([facility]) ID Date Data Source [id number] 01/29/2021 04:10:05 PM EDT [facility]FORMATIONPatient MRN Name Date of Age Gend*PT [id number] Minoo Velasquez III 1950 70 years M ---PT Location Admission Date/Time Visit ID Attending Provider --- --- --- --- EPI ID CSN Admitting Provider [id number] ---Cardiology Office NoteName: Minoo Velasquez III Gender: [...] arterial disease status post left femoral endarterectomy 63473. Iron deficiency anemia9. Vitamin B12 . JERI 11/27/2020 LVEF 65%. Mild LVH. Severe bioprosthetic stenosis of theaortic valve. Patent foramen ovale not present. No ASD.11. Cardiac catheterization 11/27/2020 previously placed stents are patent.Focal moderate lesions in mid LAD, mid circumflex, and mid right coronary arterywhich are not sufficiently severe to merit intervention. Referred to [facility]Rclinic.12. Status post TAVR with #29 Burch Kun 3 valve on 5-03-73[place] presents today for follow-up. He is accompanied [...] 11/26/2020 Added automatically from request for surgery [id number] Cardiac murmur CHF (congestive heart failure) COPD [...] 11/26/2020 Added automatically from request for surgery [id number] Stroke seen on imaging per patient Systolic heart failure 11/26/2020 Added automatically from request for surgery [id number] Surgical History:Procedure Laterality Date ANGIOPLASTY AORTIC VALVE [...] HistoryProblem Relation Age of Onset Myocardial Infarction ([place]) Father Healthy, No Significant History Mother Malig [...] Social Gatherings with Friends and Family: Attends [employer]: Active Member of Clubs or Organizations: [...] pain, Disp: 25tablet, Rfl: 1 nystatin (MYCOSTATIN) 061382 UNIT/ML suspension, Take 200,000 Units by mouth4 [...] parts of this document, were dictated using [employer]. A reasonable attempt at proofreading has been made to minimize errors.Please call with any questions or corrections. Name Value Range Interpretation Code Description Data Ximena rce(s) Supporting Document(s) ID Date Data Source [id number] 01/29/2021 03:56:54 PM EDT [facility] Name Value Range Interpretation Code Description Data Ximena rce(s) Supporting Document(s) &PDF [facility] OYFCKn2xCbPWOnPi84/IYRibSSPty4RsUBaqHZz1XYnlCYJfF2EqtAciXPDBOcFmPpEMCU2RDXBOWNyG hdG [file] ICAgICAgICAgICAgICAgICAgICAgICAgICAgICAgIC AgICAgICAgICAgICAgICAgICAgICAgICAgICAgICAgICAgICAgICAgICAgICANCiAgICAgICAgICAgIC AgICAgICAgICAgICAgICAgICAgICAgICAgICAgICAgICAgICAgICAgICAgICAgICAgICAgICAgICAgIC AgICAgICAgICAgICAgICAgICAgICAgICAgICANCiAg ICAgICAgICAgICAgICAgICAgICAgICAgICAgICAgICAgICAgICAgICAgICAgICAgICAgICAgICAgICAg ICAgICAgICAgICAgICAgICAgICAgICAgICAgICAgICAgICAgICANCiAgICAgICAgICAgICAgICAgICAg ICAgICAgICAgICAgICAgICAgICAgICAgICAgICAgIC AgICAgICAgICAgICAgICAgICAgICAgICAgICAgICAgICAgICAgICAgICAgICAgICANCiAgICAgICAgIC AgICAgICAgICAgICAgICAgICAgICAgICAgICAgICAgICAgICAgICAgICAgICAgICAgICAgICAgICAgIC AgICAgICAgICAgICAgICAgICAgICAgICAgICAgICAN CiAgICAgICAgICAgICAgICAgICAgICAgICAgICAgICAgICAgICAgICAgICAgICAgICAgICAgICAgICAg ICAgICAgICAgICAgICAgICAgICAgICAgICAgICAgICAgICAgICAgICANCiAgICAgICAgICAgICAgICAg ICAgICAgICAgICAgICAgICAgICAgICAgICAgICAgIC AgICAgICAgICAgICAgICAgICAgICAgICAgICAgICAgICAgICAgICAgICAgICAgICAgICANCiAgICAgIC AgICAgICAgICAgICAgICAgICAgICAgICAgICAgICAgICAgICAgICAgICAgICAgICAgICAgICAgICAgIC AgICAgICAgICAgICAgICAgICAgICAgICAgICAgICAg ICANCiAgICAgICAgICAgICAgICAgICAgICAgICAgICAgICAgICAgICAgICAgICAgICAgICAgICAgICAg ICAgICAgICAgICAgICAgICAgICAgICAgICAgICAgICAgICAgICAgICAgICANCiAgICAgICAgICAgICAg ICAgICAgICAgICAgICAgICAgICAgICAgICAgICAgIC AgICAgICAgICAgICAgICAgICAgICAgICAgICAgICAgICAgICAgICAgICAgICAgICAgICAgICANCjw/ VnV1bfwDTcwdF6R7teKp0NVl3DNR8vg8PrIISvWFpvhzPkMbqTFrEgWOZoCnqFJwd5GCjrRN1ZhZIrR9 YcV3XeMLefPN2RNGZyJZBkyZKxGEPlGJRpXwX1NLEu FTpqFE8GrWTpLTocVCRoGBUwLqTtZSWgGDTuOTZbWDJpBJHSLF2JFgPzS9WuzW28YEMSWt7+DQplbmRv ZuqBWhX7QQFcz0CoWGf2WZ6LMKVfHThbJF0UVMHpdP0iSDjaER3JMoIfMvLcIKHGFrPnA89sgYTsYYm1 W7McWpHlCFFwLfvaWOTgABheVeEpUKQxMiRcSGarWF 4+ID4+ESmfQU9NOZntlpNrBOUlSo1TBQGcDUZ2MJXjhJWcNjiiZAPMHTnfMW7JfUAtTRL6zQ3fOFxbCV PlDENgU4sOSlUawOrjFD59uGssigDgdOYePXa+Hc3ZKQ1vk5AvGTv2otHaXMscUERbBHeaSCCtNDYbBB YmLGL4XEN5FZZZRnLcHELiZGDyVKpxOXNaWGMzjy9D QOVmKHC5Jcw1CAWoVAOkWXFqSIezJQCeFDB9EYTtTYEgIVToGK4WGcMdPIPmHKZiQLScZHYcWTUpoc9I WQMyBXZrHmIpMULzWNZfRWAzUMboEERiDWZjWXCrWONkVWWjCB8OFxQeROKuBPPrUiFwHUOrBRInzr2C SSYsWMAuSLBbYwWxDXSfTMApMPomYJXoFWJ3LHZ5EZ QkUJKzXK9RVrNiGADxZMfbQCIjPOQxCIEmqs0PMUCtEOQwVKWyRFWcERIrKIAiZDkfGIUgLSW7LIA9TZ MnWHOdSG0VBnCnYBJrACQ9NoQbUAExRVPdza5NOIUkTXMjQLQ5GjYtOVAwEVRzEZggCMFfGXUnZWT8UM PrXAGnNI0IYjNrUEHxOSA0ZLNwAQQmYIOcgs7YNCAy ELEcAyQfPcCbAHSkDRLvPTprMXWpHAIzMxJ7YDRsADLdTC4RFdGqULPbIYOvVtIuNXHhLQCnqm6WCSXy SSXkTgD7KNNaDXRzOYUiIBrmTIYmRYSqTVX4VFNaSLIkXL4SMoOsPLQlYYE1OmhgMYUfPWGtrs7UMCPh JPCdKmx8YSUlWWNwIOXuSJkhLXLgSDT4DPD5XCGyWO PqCV5QRzGgPDEpSFs5GtoaLHEiQSTlgq3MELLtVPKsAbJ1IfBvTXNbIYQrHGkyPYXrWLM8UOOeOWEfXA NlIK5VNfFsGMDsInTpGIxbJAVfOHBcdc5YOCChIRZeZaV5HGCsROYlOKMbPGyuKLLtCAD7KxI7XSXjHB DaKR2UDkZnGHBwEzqqEuVsSZVdGCFtwe1PLJVdQOQ4 DWY1FVFaNMPxDAQyEWnhBERsZNL9PEXaZRCeHQSzIV5MFtBvDSTnALTvHgLbTNBtNNCfmy3WWTSgBRS0 NMg5RlDiNOBdQRBgKHemOJRpBCDxYKj4NKTmPBKiBY3NGvLsSUElZnR3CqNzTOIoVVVgxt3DHUFfXGN7 RCD9XEPgPQMkJJCdGGuzSTXuGJI6BHQ0XKUoVXRjFS 8THpJrQCcoJFUYAdx8BJsbK5c3UVT7CI5VG0Dpd6DzCczfFLABGNnqUH4uodRlTPSlGl8ME0hMMaisZc NcUoNfZKj9LDGlIbGfCJZ3KfiqGyNcSlX4ZVl9Ok6aRNXnAfMcNuV4CXg3PYIpKQY1ZXpjB2JoFHF4Pv D4DahiEyGcMB3IHa1PBiX6BZR2xIVaGm1MIgMvIEFOCjEkUI0FXNd= ID Date Data Source [id number] 01/07/2021 11:45:00 AM EDT MEDENT ([facility] Name Value Range Interpretation Code Description Data Ximena rce(s) Supporting Document(s) Chol 166 mg/dL 0-200 [facility] CHRONIC KIDNEY DISEASE [...] YEARS EXCLUSIVE. Trig 175 mg/dL 35-200 MED[facility] ([facility] CHRONIC KIDNEY [...] YEARS EXCLUSIVE. Cho/HDL Ratio 2.5 Calc MEDENT ([facility] CHRONIC KIDNEY DISEASE STAGING [...] 2-19 YEARS EXCLUSIVE. ID Date Data Source [id number] 01/07/2021 11:45:00 AM EDT MEDENT ([facility] Name Value Range Interpretation Code Description Data Ximena rce(s) Supporting Document(s) Glu 69 mg/dL 70-110 Below low normal MED[facility] ( [facility] CHRONIC KIDNEY DISEASE [...] mg/dL 0.7-1.2 Below low normal MED[facility] ( [facility] CHRONIC KIDNEY DISEASE [...] mmol/L 136-145 Below low normal MED[facility] ( [facility] CHRONIC KIDNEY DISEASE [...] YEARS EXCLUSIVE. BUN/Creatinine Ratio 23.4 Calc MEDENT ([facility] CHRONIC KIDNEY DISEASE [...] EXCLUSIVE. K 4.4 mmol/L 3.5-5.1 [facility] ([facility] CHRONIC KIDNEY DISEASE STAGING [...] YEARS EXCLUSIVE. CA 10.2 mg/dL 8.6-10.2 [facility] CHRONIC KIDNEY DISEASE STAGING [...] AGED 2-19 YEARS EXCLUSIVE. A/G Ratio 1.6 [facility] ([facility] CHRONIC KIDNEY DISEASE [...] YEARS EXCLUSIVE. Alp 76.4 U/L 40-129 MED[facility] ([facility] CHRONIC KIDNEY [...] YEARS EXCLUSIVE. Tbili 0.20 mg/dL 0.0-1.2 [facility] ([facility] CHRONIC KIDNEY DISEASE STAGING [...] 2-19 YEARS EXCLUSIVE. eGFR Non-Afr. Citizen Of [place] 103 # MEDENT ([facility] [...] 2-19 YEARS EXCLUSIVE. ID Date Data Source [id number] 01/07/2021 11:45:00 AM EDT MEDENT ([facility] Name Value Range Interpretation Code Description Data Ximena rce(s) Supporting Document(s) Thyrotropin [Units/volume] in Serum or Plasma 13.532 ulU/mL 0. 60-4.8 Above high normal MEDENT ([facility] ) ID Date Data Source [id number] 01/07/2021 11:44:00 AM EDT MEDENT ([facility] Name Value Range Interpretation Code Description Data Ximena rce(s) Supporting Document(s) Hemoglobin A1c/Hemoglobin.total in Blood 6.3 % 4.50-6.20 Above high normal MEDENT ([facility] ID Date Data Source [id number] 12/31/2020 06:03:22 PM EDT [facility]FORMATIONPatient MRN Name Date of Age Gend*PT [id number] Minoo Velasquez III 1950 70 years M IPPT Location Admission Date/Time Visit ID Attending [id number] 12/25/20 1006 --- --- EPI ID CSN Admitting Provider [id number] Shanique Ramírez MD([id number])HISTORY AND PHYSICALName: Minoo Velasquez III Gender: maleDate [...] 11/26/2020 Added automatically from request for surgery [id number] Cardiac murmur CHF (congestive heart failure) COPD [...] 11/26/2020 Added automatically from request for surgery [id number] Stroke seen on imaging per patient Systolic heart failure 11/26/2020 Added automatically from request for surgery [id number] Surgical History:Procedure Laterality Date ANGIOPLASTY AORTIC VALVE [...] HistoryProblem Relation Age of Onset Myocardial Infarction ([place]) Father Healthy, No Significant History Mother Malig [...] Social Gatherings with Friends and Family: Attends [employer]: Active Member of Clubs or Organizations: [...] Weight: 64.6 kg (142 lb 6.4 oz)Physical ZqptCVGu4VdimcojciduSughfde from last 7 daysLab Units [id number] mg/dL 0.73*Results from last 7 daysLab Units [id number] % 34.3*Assessment & PlanPlan for TAVR. Procedure and risks explained and understood.Shanique Ramírez MD Name Value Range Interpretation Code Description Data Ximena rce(s) Supporting Document(s) ID Date Data Source [id number] 12/31/2020 06:00:51 PM EDT [facility]FORMATIONPatient MRN Name Date of Age Gend*PT [id number] Minoo Velasquez III 1950 70 years M IPPT Location Admission Date/Time Visit ID Attending [id number] 12/25/20 1006 --- --- EPI ID CSN Admitting Provider [id number] Shanique Ramírez MD([id number]) Attestation signed by Shanique Ramírez MD at 12/31/2020 6:00 PMI saw and evaluated the patient and reviewed Ms. Desouza's note. I agree withthe history, physical and medical decision making. Safe for d/c home. Ipersonally reviewed the echo which shows the TAVR well seated.Signature: Shanique Ramírez MDDate: December 31, 2020Time: 6:00 PM Physician Discharge Summary Minoo Velasquez IIIMRN: [id number] date: 12/25/2020ttending Physician: Shanique Ramírez MDAdmission Diagnosis: Aortic valve stenosisSecondary Diagnoses: Principal Problem: Aortic valve stenosis Hypertension Diabetes mellitus COPD Sleep apnea Peripheral vascular disease Iron deficiency anemia Chronic bronchiectasis Coronary artery diseasePrinciple Procedures:Transfemoral uujzi-gn-pyuhr TAVR with a #29 mm Burch Kun [...] aortic stenosis.Hospital Course & Complications:The patient underwent hvjke-sy-eyjaf TAVR on 12/26/20 with successful fracturingof his [...] 11/26/2020 Added automatically from request for surgery [id number] Cardiac murmur CHF (congestive heart failure) COPD [...] 11/26/2020 Added automatically from request for surgery [id number] Stroke seen on imaging per patient Systolic heart failure 11/26/2020 Added automatically from request for surgery [id number] Recent Labs:BMP:Lab ResultsComponent Value Date NA 138 [...] VITAMIN C Take 1,000 mg by mouth bhcqcI-Njyvyas-I Tabs Take 1 tablet by mouth dailybudesonide [...] 5 (five) minutes as neededfor chest painnystatin [id number] UNIT/ML suspensionCommonly known as: MYCOSTATIN Take 200,000 [...] Get Your MedicationsThese medications were sent to [facility] [place], [place] - [address] [place] [address] clopidogrel 75 MG tabletDischarge Exam:Vitals: Temp: [97.2 [...] rce(s) Supporting Document(s) ID Date Data Source [id number] 12/28/2020 07:12:47 PM EDT [facility] INFORMATIONPatient MRN Name Date of Age Gend*PT [id number] Minoo Velasquez III 1950 70 years M IPPT Location Admission Date/Time Visit ID Attending [id number] 12/25/20 1006 --- --- EPI ID CSN Admitting Pr ovider [id number] Shanique Rmaírez MD([id number]) [place] [address] OPERATIVE REPORT OPNAME: MINOO VELASQUEZ III#: [id number] #: [id number] ADMISSION DATE: 12/25/2020OB: 1950 SEX: M PT TYPE: I CRDACCT #: [id number] CARE PHYSICIAN: SHANIQUE RUIZ OF OPERATION: 12/25/2020REOPERATIVE DIAGNOSES:1. Progressive symptomatic aortic valve stenosis.2. Aortic valve regurgitation.3. Chronic obstructive pulmonary disease.4. Coronary artery disease.5. Diabetes mellitus.6. Hypertension.7. Sleep apnea.POSTOPERATIVE DIAGNOSES:1. Progressive symptomatic aortic valve stenosis.2. Aortic valve regurgitation.3. Chronic obstructive pulmonary disease.4. Coronary artery disease.5. Diabetes mellitus.6. Hypertension.7. Sleep apnea.ANESTHESIA:General anesthesia.ATTENDING ECG TECHNICIAN:NATHEN Phoenix CARDIAC SURGEON:NELSY BellaROCEDURES:Transcatheter aortic valve replacement with #26 mm Kun 3 made by [employer], the serial number for the valve is [id number].DESCRIPTION OF PROCEDURE:After the patient was brought to [...] was transferred toRecovery Room.JULIA Bella/NOEMY Job #: [id number] DOC #: [id number] Name Value Range Interpretation Code Description Data Ximena rce(s) Supporting Document(s) ID Date Data Source [id number] 12/26/2020 12:02:37 PM EDT [facility] Name Value Range Interpretation Code Description Data Ximena rce(s) Supporting Document(s) POC NOVA GLU 174 mg/dL (70-99) H [facility] [place] [facility]FOR[facility] ID Date Data Source [id number] 12/26/2020 10:02:02 AM EDT [facility] Name Value Range Interpretation Code Description Data Ximena rce(s) Supporting Document(s) POC NOVA GLU 92 mg/dL (70-99) [facility] ID Date Data Source [id number] 12/26/2020 10:49:34 AM EDT [facility] Name Value Range Interpretation Code Description Data Ximena rce(s) Supporting Document(s) SODIUM 138 mmol/L (136-145) [facility] POTASSIUM 4.0 mmol/L (3.6-5.2) [facility] CHLORIDE 102 mmol/L (100-108) [facility] CO2 29 mmol/L (22-31) [facility] ANION GAP 7 mmol/L (7-16) [facility] UREA NITROGEN 19 mg/dL (7-24) [facility] CREATININE 0.73 mg/dL (0.80-1.30) L [facility] BUN/CREAT RATIO 26.0 RATIO (10.0-20.0) H [facility] GLUCOSE 63 mg/dL (70-99) L [facility] CALCIUM 7.7 mg/dL (8.4-10.2) L [facility] GFR >60 ml/min/1.73m2 (>59) [facility] GFR ( AMER) >60 ml/min/1.73m2 (>59) [facility] GFR INTERPRETATION [facility] --NORMAL KIDNEY FUNCTION OR MILD DISEASE - GFR >OR= 60CHRONIC KIDNEY DISEASE - GFR 15 - 59RENAL FAILURE - GFR <15 Est. GFR calculation based on the MDRDstudy equation, which assumes a steadystate for creatinine. Est. GFR should notbe used for medication dosing. ID Date Data Source [id number] 12/26/2020 10:13:26 AM EDT [facility] Name Value Range Interpretation Code Description Data Ximena rce(s) Supporting Document(s) WBC 11.3 10*3/uL (4.1-11.0) H [facility] RBC 3.55 10*6/uL (4.60-6.10) L [facility] HGB 11.5 g/dL (13.5-18.0) L [facility] HCT 34.3 % (41.0-53.0) L [facility] MCV 96.5 fL (80.0-95.0) H [facility] MCH 32.5 pg (27.0-32.0) H [facility] MCHC 33.6 g/dL (32.0-36.0) [facility] RDW 14.6 % (10.5-14.5) H [facility] PLT 223 10*3/uL (150-450) [facility] MPV 7.4 fL (7.1-10.7) [facility] ID Date Data Source [id number] 12/25/2020 11:00:46 PM EDT [facility] Name Value Range Interpretation Code Description Data Ximena rce(s) Supporting Document(s) POC NOVA GLU 106 mg/dL (70-99) H [facility] ID Date Data Source [id number] 12/25/2020 03:23:03 PM EDT [address] [id number] Name: MINOO CHAVSISHAWNOB: 1950Sex: MOrdering Provider: TING LORENZANAuthorizing Prov: TING MACKETTReferring Provider: Procedure Performed: XR CHEST PORTABLEExam Date: 12/25/2020 15:09MRN: [id number] Number: [id number] Class: InpatientAccount #: [id number] for Exam: Post TAVR procedureTechnique: AP portable [...] PAMELA MORAES On 12/25/2020 3:23 PMWorkstation ID: [id number] Name Value Range Interpretation Code Description Data Ximena rce(s) Supporting Document(s) ID Date Data Source [id number] 12/25/2020 03:00:55 PM EDT [facility] Name Value Range Interpretation Code Description Data Ximena rce(s) Supporting Document(s) EKG [facility] [id number] jb2 [file] ID Date Data Source [id number] 12/25/2020 08:16:35 PM EDT [facility] Name Value Range Interpretation Code Description Data Ximena rce(s) Supporting Document(s) WBC 14.2 10*3/uL (4.1-11.0) H [facility] RBC 3.92 10*6/uL (4.60-6.10) L [facility] HGB 12.9 g/dL (13.5-18.0) L [facility] HCT 37.8 % (41.0-53.0) L [facility] MCV 96.5 fL (80.0-95.0) H [facility] MCH 33.0 pg (27.0-32.0) H [facility] MCHC 34.2 g/dL (32.0-36.0) [facility] RDW 14.7 % (10.5-14.5) H [facility] PLT 240 10*3/uL (150-450) [facility] MPV 8.0 fL (7.1-10.7) [facility] ID Date Data Source [id number] 12/25/2020 04:34:52 PM EDT [facility] Name Value Range Interpretation Code Description Data Ximena rce(s) Supporting Document(s) SODIUM 136 mmol/L (136-145) [facility] POTASSIUM 3.9 mmol/L (3.6-5.2) [facility] CHLORIDE 103 mmol/L (100-108) [facility] CO2 25 mmol/L (22-31) [facility] ANION GAP 8 mmol/L (7-16) [facility] UREA NITROGEN 24 mg/dL (7-24) [facility] CREATININE 0.74 mg/dL (0.80-1.30) L [facility] BUN/CREAT RATIO 32.4 RATIO (10.0-20.0) H [facility] GLUCOSE 179 mg/dL (70-99) H [facility] CALCIUM 8.8 mg/dL (8.4-10.2) [facility] GFR >60 ml/min/1.73m2 (>59) [facility] GFR ( AMER) >60 ml/min/1.73m2 (>59) [facility] GFR INTERPRETATION [facility] --NORMAL KIDNEY FUNCTION OR MILD DISEASE - GFR >OR= 60CHRONIC KIDNEY DISEASE - GFR 15 - 59RENAL FAILURE - GFR <15 Est. GFR calculation based on the MDRDstudy equation, which assumes a steadystate for creatinine. Est. GFR should notbe used for medication dosing. ID Date Data Source [id number] 12/25/2020 04:34:52 PM EDT [facility] Name Value Range Interpretation Code Description Data Ximena rce(s) Supporting Document(s) MAGNESIUM 3.0 mg/dL (1.7-2.4) H [facility] ID Date Data Source [id number] 12/25/2020 04:34:17 PM EDT [facility] Name Value Range Interpretation Code Description Data Ximena rce(s) Supporting Document(s) HEMOGLOBIN A1C @ 6.8 % (4.0-6.0) H [facility] Performed using Siemens [place] immunoassa y.Care must be taken when interpreting [id number] in patients with a hemoglobin variantor decreased erythrocyte lifespan. Values 5.7 - 6.4% suggest prediabetes.Values >=6.5% are diagnostic for diabetes.REFERENCE: DIABETES CARE 2018: 41(S13-S27).PERFORMED AT [address] [place] [id number] EST AVERAGE GLUCOSE 148 mg/dL [facility] ID Date Data Source [id number] 12/25/2020 04:14:05 PM EDT [facility] Name Value Range Interpretation Code Description Data Ximena rce(s) Supporting Document(s) PT 10.6 s (9.2-11.9) [facility] PERFORMED AT [address] [place] [address] Y [address] INR 1.01 [facility] SUGGESTED THERAPEUTIC RANGES USING INR F ORSTABILIZED ANTICOAGULATED PATIENTS:STANDARD DOSE THERAPY INR 2.0-3.0 DVT, PE, PREVENT DVT OR EMBOLISMHIGH DOSE THERAPY INR 2.5-3.5 PREVENT EMBOLISM FROM MECHANICAL HEART VALVE ID Date Data Source [id number] 12/25/2020 02:42:40 PM EDT [facility] Name Value Range Interpretation Code Description Data Ximena rce(s) Supporting Document(s) POC NOVA GLU 191 mg/dL (70-99) H [facility] ID Date Data Source [id number] 12/25/2020 02:33:27 PM EDT [facility] INFORMATIONPatient MRN Name Date of Age Gend*PT [id number] Minoo Velasquez III 1950 70 years M IPPT Location Admission Date/Time Visit [facility] --- Shanique Ramírez MD([id number]) EPI ID CSN Admitting Provider [id number] Shanique Ramírez MD([id number])TAVR Procedure NotePatient Name: Minoo Velasquez III of : 1950 Age 70 yearsPrimary Physician: MARGA DANIELS PCP [facility]: 12/25/2020 [employer] NELSY Phoenixre-Diagnosis: Severe ASProcedure: TAVRAssistant(s): Dr. Sorensen/InterventionThe [...] rce(s) Supporting Document(s) ID Date Data Source [id number] 12/25/2020 02:05:59 PM EDT [facility] Name Value Range Interpretation Code Description Data Ximena rce(s) Supporting Document(s) &PDF [facility] ARERZu2wAsJMEnXu77/BBNxtATSfk6AsCDxeEWa8JQgtVKYgR2ErdVopOXXVMaChReXXDU6TBDRZDEaQ hdG [file] ICAgICAgICAgICAgICAgICAgICAgICAgICAgICAgIC AgICAgICAgICAgICAgICAgICAgICAgICAgICAgICAgICAgICAgICAgICAgICAgICAgICAgICAgICAgIC ZyBJUkZR4VTMBkUDMiOJUmGATwRHHjWGGiWSNmXHMgNHWaFNAlKIZgCCLiUPJdKXGnQAItGTVxKBEnQV AgICAgICAgICAgICAgICAgICAgICAgICAgICAgICAg IFXhXHZcPXVoGEHiEKRpCC1FDCEzQNErVLRhHBEiBKZhARDoXZKuHDCvZNRcDSIuSDRdGKDhFKLiRWYb ZOItEBZcQDLvFUUoPGLgTIHxEEOyZFLuQTAhGAHbALEwHOLzEACvUZTcELFbDUKfVZQaYWPiXZTkOB3I ICAgICAgICAgICAgICAgICAgICAgICAgICAgICAgIC AgICAgICAgICAgICAgICAgICAgICAgICAgICAgICAgICAgICAgICAgICAgICAgICAgICAgICAgICAgIC NnDZPcVTSpRO1PMPHaXXHzUGUyRUQoWCNvJOBcVOIbFNLrWWYoNGYdCULvEZFyHRYfFHOyXAYjSAYaCB AgICAgICAgICAgICAgICAgICAgICAgICAgICAgICAg RLLsLMQeYMUbAAHyKZScAFKcBB5UPDEiKAOnJVFxWPTkNAKtPJApEXQpPXPnHYZxZXHeCGWfVPDcGIOi ICAgICAgICAgICAgICAgICAgICAgICAgICAgICAgICAgICAgICAgICAgICAgICAgICAgICAgICAgICAg FO2KHZAuIXOtMLZxMWEsNDQuOTRwODWeRLNvFCGvBL AgICAgICAgICAgICAgICAgICAgICAgICAgICAgICAgICAgICAgICAgICAgICAgICAgICAgICAgICAgIC GuDJHmVWYkHEChOQ1KIVNvQHIwDFXoMDPxTWJmAMKyESAsDONdZOCpHUFuBSKyXWQjOYUvYRYkVNTsFU AgICAgICAgICAgICAgICAgICAgICAgICAgICAgICAg MEZdHUWeKQQsFRCxLBSmOSFcNTCzPZ8GGFGgKPXeAWShGRCgQYCfZYBgXRNrEDYfSOPiTKQuZQQjAUDd ICAgICAgICAgICAgICAgICAgICAgICAgICAgICAgICAgICAgICAgICAgICAgICAgICAgICAgICAgICAg GLUnID1KRHGdVXZnINOaWJNjZRJsCBRsQUBaBWFcXX AgICAgICAgICAgICAgICAgICAgICAgICAgICAgICAgICAgICAgICAgICAgICAgICAgICAgICAgICAgIC LjJFKrVFOcNCWtBSMiJR4RHF99hVFas6M0NXMfYT4omfp/Tp3YLXmsqhWlxSPjBU9PLrMeRT8ozj0ELe ZfZI9lbt4ZRDpPGcPrX7H1uPSyYWMuEODNChMsF50h IKgwMl67HLapWAKhOmIjSYn3Ez0HFxFdO5pzNAZaRnT2XAUtJwFhEXaxTH6Jv4WrrZPrDFf+Iv5TEV4l x2UtFBrpVSLaCU2mvx3GHFzEKqBnC7O0lJYaK5N9YKekKf2WYSHcXWEtSIwgAOPRIUcoQQ7VQH0ichW9 RE9AwWYjCCJaXWCkiOVrMUg7N66xcGTjJCfrST0GML A+Concha+Yc9FNOVwJKYfSTNgBsHlQMMXBnJrF21noOZbSEKiAVA3UKGmHw7HHHOeE8VzytNosLylcdSrKR UoSHHGKB8VNRkghxXcqQLivNuzAP19nOjpNP6FMn7PXvFoQN6sux1AeEWtOd4EJHLlKI5HNMRyKWRaOH FnCBP8NRNfSxBvHLruDWOlEKNpAPG2FTPjPUJqFF5A IhUtIFQxSTW8ZMZwJLYwCRBezg1WVKYzDQByZxY7FYSgDNVoFJTxSUjiXNMiHAVsQEc8AKEsQQDlBL1E RbFgJJAxFFGcWTNpMRDnRJSxhu8XZXPiJJYhEvXbQWChVAJbQXCbBHbzHGGfSADfMuE4DGMtMVRwTX5S UlFxKPDwLVP2PlEiUREdXFNckk9VLQHpYELcEfK2OB SpGMDuINIoEAmyBWVeXFC9IKc3TKZvGFHvLK2AFcElODXdBGN8OXMlRLFrHCOalt9OLNLyTXLzCLt1Eg UuGCGwIGQdDHiePMWvVAF8IUK8WCHsAOTmZX7AJaGvZAKdHQBtYGTeZWToABIuqr5QBWDmYJTiTfUyQW IqJIChWTAhJPiwHCWaVUMgASL7SOYrPDVdVO8JCfKu AJPxTXR6PcZnSGAbWPNbld8UISUcTQAjIvOvMYNoCZMpCVLfKHgiCJSkPYW1RqJ0SLHbFAAlCX6NCdIn IXvmSXFDDnn5PLqwU3h8GWXdOI1CE5Xws5MlIBnfATSKUVeiZW9ylxWbQODxYd1LW6yDLjvlTvbfDJMm WzUaWrF0H1EnFcVqOGSiRHM9HIIqMaieDA8mDCU7KX C2MJT4TVRxGSxkLvO9SfSdCCN9NRVsSBE1MfPcJqMlXY9URm7BMyP6VQO7oAYaGu4MDSn8JkLRIcGrMU 9GDQo= ID Date Data Source [id number] 12/25/2020 03:12:40 PM EDT [facility] Name Value Range Interpretation Code Description Data Ximena rce(s) Supporting Document(s) POC ACT 246 s (80-140) H [facility] ID Date Data Source [id number] 12/25/2020 01:26:41 PM EDT [facility] Name Value Range Interpretation Code Description Data Ximena rce(s) Supporting Document(s) POC TEMPERATURE [facility] 37.0C POC SOURCE [facility] POC FIO2 100 [facility] CP BYPASS [facility] POC PH 7.31 pH (7.35-7.45) L [facility] POC PCO2 61.3 MMHG (32.0-48.0) H [facility] POC PO2 519 MMHG (83-108) H [facility] POC SAT O2 100 % (95-99) H [facility] POC BASE EXCESS 3 MMOL/L (0-3) [facility] POC HCO3 30.7 MMOL/L (21.0-29.0) H [facility] POC TOTAL CO2 33 MMOL/L (23.0-32.0) H [facility] POC HCT 39 % (41.0-53.0) L [facility] POC SODIUM 133 MMOL/L (136-145) L [facility] POC POTASSIUM 3.8 MMOL/L (3.6-5.2) [facility] POC IONIZED CALCIUM 4.4 MG/DL (4.6-5.3) L [facility] POC GLU 209 MG/DL (70-99) H [facility] ID Date Data Source [id number] 12/25/2020 01:26:16 PM EDT [facility] Name Value Range Interpretation Code Description Data Ximena rce(s) Supporting Document(s) POC ACT 114 s (80-140) [facility] ID Date Data Source [id number] 12/25/2020 01:19:49 PM EDT [facility] INFORMATIONPatient MRN Name Date of Age Gend*PT [id number] Minoo Velasquez III 1950 70 years M IPPT Location Admission Date/Time Visit ID Attending Provider --- --- --- --- EPI ID CSN Admitting Pr ovider [id number] ---Introducer AdditionsPatient location during procedure: CV hybrid [...] changes to vital signs and catheter flushed [id number] NS Name Value Range Interpretation Code Description Data Ximena rce(s) Supporting Document(s) ID Date Data Source [id number] 12/25/2020 01:19:19 PM EDT [facility] NT INFORMATIONPatient MRN Name Date of Age Gend*PT [id number] Minoo Velasquez E III 1950 70 years M IPPT Location Admission Date/Time Visit ID Attending Provider --- --- --- --- EPI ID CSN Admitting Pr ovider [id number] ---Central Line InsertionPatient location during procedure: CV [...] changes to vital signs and catheter flushed [id number] NS Name Value Range Interpretation Code Description Data Ximena rce(s) Supporting Document(s) ID Date Data Source [id number] 12/25/2020 01:18:58 PM EDT [facility] NT INFORMATIONPatient MRN Name Date of Age Gend*PT [id number] Minoo Velasquez E III 1950 70 years M IPPT Location Admission Date/Time Visit ID Attending Provider --- --- --- --- EPI ID CSN Admitting Pr ovid [id number] ---Arterial Line PlacementPatient location during procedure: CV [...] rce(s) Supporting Document(s) ID Date Data Source [id number] 12/25/2020 01:18:43 PM EDT [facility]FORMATIONPatient [facility] Name Date of Age Gend*PT [id number] Minoo Velasquez III 1950 70 years M IPPT Location Admission Date/Time Visit ID Attending Provider --- --- --- --- EPI ID CSN Admitting Pr [facility] [id number] ---AirwayPatient location during procedure: CV hybrid roomUrgency: [...] cmPlacement verified by: chest auscultation and + [id number]: equal breath sounds bilateral and CTAGrade view: grade I - full view of glottis Name Value Range Interpretation Code Description Data Ximena rce(s) Supporting Document(s) ID Date Data Source [id number] 12/25/2020 10:43:38 AM EDT [facility] Name Value Range Interpretation Code Description Data Ximena rce(s) Supporting Document(s) POC NOVA GLU 153 mg/dL (70-99) H [facility] ID Date Data Source [id number] 12/27/2020 12:35:45 AM EDT [facility] SPEC EXP DATE 12/26/2020TEST ING SITE PERFORMED AT [address] [place] [address]NWRI NUMBER [id number] COMPONENT TYPE LEUKOPOOR RED CELLSUNIT DIVISION 00STATUS OF UNIT REL FROM ALLOCTRANSFUSION STATUS OK TO TRANSFUSECROSSMATCH RESULT COMPATIBLEUNIT NUMBER [id number] COMPONENT TYPE LEUKOPOOR RED CELLSUNIT DIVISION 00STATUS OF UNIT REL FROM ALLOCTRANSFUSION STATUS OK TO TRANSFUSECROSSMATCH RESULT COMPATIBLEUNIT NUMBER [id number] COMPONENT TYPE LEUKOPOOR RED CELLSUNIT DIVISION 00STATUS OF UNIT REL FROM ALLOCTRANSFUSION STATUS OK TO TRANSFUSECROSSMATCH RESULT COMPATIBLEUNIT NUMBER [id number] COMPONENT TYPE LEUKOPOOR RED CELLSUNIT DIVISION 00STATUS OF UNIT REL FROM ALLOCTRANSFUSION STATUS OK TO TRANSFUSECROSSMATCH RESULT COMPATIBLE Name Value Range Interpretation Code Description Data Ximena rce(s) Supporting Document(s) TRANSFUSE RED CELLS [facility] TESTING SITE PERFORMED AT [address] [place] [address] ID Date Data Source [id number] 12/23/2020 03:54:03 PM EDT [facility] INFORMATIONPatient MRN Name Date of Age Gend*PT [id number] Minoo Velasquez III 1950 70 years M OPPT Location Admission Date/Time Visit ID Attending Provider --- --- --- Shanique Ramírez MD([id number]) EPI ID CSN Admitting Provider [id number] ---HISTORY PHYSICALName: Minoo Velasquez III : 1950 Sex: male Care Provider: Rajiv DANIELS Physician: Dr. RamírezInformant: The patient who is reliable.Chief Complaint: "I need surgery."HISTORY OF PRESENT ILLNESS: 70 years old white male reports a history of MiniAVR with No. 25 magna ease and femorofemoral cannulation on December 24, 2009.Patient has been followed by his vending attendant Dr. Ramírez. He reports shortnessof breath at [...] 11/26/2020 Added automatically from request for surgery [id number] Cardiac murmur CHF (congestive heart failure) COPD [...] 11/26/2020 Added automatically from request for surgery [id number] Stroke seen on imaging per patient Systolic heart failure 11/26/2020 Added automatically from request for surgery [id number] SURGICAL HISTORY:Past Surgical History:Procedure Laterality Date ANGIOPLASTY AORTIC VALVE REPLACEMENT 12/24/2009 Mini AVR with No. 25 magna ease and femorofemoral cannulation CARDIAC CATHETERIZATION 07/13/2012 CARDIAC CATHETERIZATION N/A 10/24/2018 Procedure: Cardiac catheterization; Surgeon: Shanique Ramírez MD; Laterality:N/A; CARDIAC CATHETERIZATION N/A 10/24/2018 Procedure: Angioplasty-coronary; Surgeon: Shanique Ramírez MD; Laterality:N/A; CARDIAC CATHETERIZATION N/A 11/27/2020 Procedure: Left heart cath; Surgeon: Shaniqeu Ramírez MD; Laterality: N/A; CARDIAC CATHETERIZATION N/A [...] Comment: 05/09/2008 @ 1447- PER PATIENT FROM [facility]- PATIENT HAS BEEN TAKING BENADRYL W/O [...] Take 1,000 mg by mouth dailyHistorical Provider, FWC-Gxhggal-F TABS Take 1 tablet by mouth daily [...] chest pain 11/25/20 Renae Lucas PAnystatin (MYCOSTATIN) [id number] UNIT/ML suspension Take 200,000 Units by mouth [...] On Wednesday, Wednesday, and WednesdayHistorical Provider, Tiotropium [place] Monohy drate (SPIRIVA RESPIMAT IN) Inhale daily [...] HistoryProblem Relation Age of Onset Myocardial Infarction (NV) Father Healthy, No Significant History Mother Malig [...] warm and dry.HEENT: He is normocephalic, atraumatic. Goodwin conjunctivae. Anicteric sclerae.Pupils are equal, round, reactive [...] hepatosplenomegaly. Negative CVAT.GENITAL/RECTAL: Deferred.MUSCLE/SKELETAL: Strength is 5/5. Sql Server Architect are equal.NEUROLOGICALLY: Cranial nerves II through XII [...] or LMW Heparin if clinically indicated8. Anxiety9. [id number]. Coronary artery disease EKG ordered today.Based on above medical co morbidities, length of stay may be prolonged greaterthan previously anticipated.ALLERGIES:Aspirin, Fexofenadine, Levofloxacin, Pravastatin, Quinine, andRosuvastatin12/23/2020 3:53 PMRenee Grant NP*This document or parts of this document, were dictated using [employer] speaking software. A reasonable attempt at proofreading has beenmade to minimize errors. Please call with any questions or corrections. Name Value Range Interpretation Code Description Data Ximena rce(s) Supporting Document(s) ID Date Data Source [id number] 12/23/2020 12:57:43 PM EDT [facility] Name Value Range Interpretation Code Description Data Ximena rce(s) Supporting Document(s) EKG [facility] ZDJFBd7wIiWTFrDqz9VjPsBlVOXlKC9jotn9C9T3dJYsQ9AocYDfk4chI0KwW1YdFKWkOJQNFB3EhUUm jb2 [file] [id number]+DqN2NXW4kIKkPcd9UFXlMephZGFJIf== ID Date Data Source [id number] 12/24/2020 11:09:48 AM EDT [facility] SPECIMEN DESCRIPTION MIDSTREAM UR INE,CLEAN CATCHCULTURE RESULTS NO GROWTHREPORT STATUS FINAL 12/24/2020 Name Value Range Interpretation Code Description Data Ximena rce(s) Supporting Document(s) ID Date Data Source [id number] 12/23/2020 04:04:11 PM EDT [facility] Name Value Range Interpretation Code Description Data Ximena rce(s) Supporting Document(s) COLOR [facility] APPEARANCE [facility] SPEC GRAV URINE 1.036 (1.003-1.030) H [facility] PH URINE 6.0 (5.0-7.5) [facility] LEUK ESTERASE (NEG) [facility] NITRITE URINE (NEG) [facility] PROTEIN URINE (NEG) [facility] GLUCOSE URINE 3+ (NEG) A [facility] KETONE URINE (NEG) [facility] UROBILINOGEN 0.2 mg/dL (0-1.0) [facility] BILIRUBIN URINE (NEG) [facility] BLOOD/HGB URINE (NEG) [facility] ID Date Data Source [id number] 12/23/2020 10:44:36 PM EDT [facility] SPEC EXP DATE 12/26/2020ATI ENT ABO/Rh A POSITIVEANTIBODY SCREEN NEGATIVETESTING SITE PERFORMED AT [address] [place] [id number] BANK COMMENT BLOOD TYPE CONFIRMED. Name Value Range Interpretation Code Description Data Ximena rce(s) Supporting Document(s) TYPE AND SCREEN [facility] ID Date Data Source [id number] 12/23/2020 05:52:12 PM EDT [facility] Name Value Range Interpretation Code Description Data Ximena rce(s) Supporting Document(s) HEMOGLOBIN A1C @ 6.7 % (4.0-6.0) H [facility] Performed using Siemens [place] immunoassa y.Care must be taken when interpreting RaG4vubmqdsu in patients with a hemoglobin variantor decreased erythrocyte lifespan. Values 5.7 - 6.4% suggest prediabetes.Values >=6.5% are diagnostic for diabetes.REFERENCE: DIABETES CARE 2018: 41(S13-S27). EST AVERAGE GLUCOSE 146 mg/dL [facility] ID Date Data Source [id number] 12/23/2020 05:22:49 PM EDT [facility] Name Value Range Interpretation Code Description Data Ximena rce(s) Supporting Document(s) WBC 10.3 10*3/uL (4.1-11.0) [facility] RBC 4.16 10*6/uL (4.60-6.10) L [facility] HGB 13.8 g/dL (13.5-18.0) [facility] HCT 40.8 % (41.0-53.0) L [facility] MCV 98.2 fL (80.0-95.0) H [facility] MCH 33.1 pg (27.0-32.0) H [facility] MCHC 33.7 g/dL (32.0-36.0) [facility] RDW 14.7 % (10.5-14.5) H [facility] PLT 271 10*3/uL (150-450) [facility] MPV 7.6 fL (7.1-10.7) [facility] NEUT % 63.0 % (35.0-75.0) [facility] LYMPH % 21.0 % (16.0-52.0) [facility] ATYP LYMPH % 1.0 % (0.0-5.0) [facility] MONO % 12.0 % (0.0-8.0) [facility] EOS % 1.0 % (0.0-5.0) [facility] BASO % 1.0 % (0.0-4.0) [facility] MYELO % 1.0 % (0.0) [facility] NEUT # 6.5 10*3/uL (1.8-7.7) [facility] LYMPH # 2.2 10*3/uL (1.2-4.8) [facility] ATYP LYMPH # 0.1 10*3/uL [facility] MONO # 1.2 10*3/uL (0.0-0.8) [facility] Eosinophils [#/volume] in Blood by Automated count 0.1 10*3/uL (0.0-0 .5) [facility] BASO # 0.1 10*3/uL (0.0-0.2) [facility] MYELO # 0.1 10*3/uL (0.0) [facility] LARGE PLT 1+ [facility] ID Date Data Source [id number] 12/23/2020 04:33:04 PM EDT [facility] Name Value Range Interpretation Code Description Data Ximena rce(s) Supporting Document(s) BILIRUBIN,UNCONJ. (0.0-0.7) [facility] ID Date Data Source [id number] 12/23/2020 04:33:04 PM EDT [facility] Name Value Range Interpretation Code Description Data Ximena rce(s) Supporting Document(s) SODIUM 139 mmol/L (136-145) [facility] POTASSIUM 3.9 mmol/L (3.6-5.2) [facility] CHLORIDE 100 mmol/L (100-108) [facility] CO2 29 mmol/L (22-31) [facility] ANION GAP 10 mmol/L (7-16) [facility] UREA NITROGEN 24 mg/dL (7-24) [facility] CREATININE 0.76 mg/dL (0.80-1.30) L [facility] BUN/CREAT RATIO 31.6 RATIO (10.0-20.0) [facility] GLUCOSE 81 mg/dL (70-99) [facility] CALCIUM 9.4 mg/dL (8.4-10.2) [facility] TOTAL PROTEIN 6.6 g/dL (6.4-8.2) [facility] ALBUMIN 3.7 g/dL (3.2-4.5) [facility] GLOBULIN 2.9 g/dL (2.7-4.3) [facility] ALB/GLOB RATIO 1.3 RATIO [facility] ALKALINE PHOSPHATASE 66 U/L (45-117) [facility] BILIRUBIN,TOTAL 0.2 mg/dL (0.0-1.0) [facility] PLEASE NOTE:Total bilirubin results may be falselyelevated in patients taking Eltrombopag. AST (SGOT) 20 U/L (11-39) [facility] ALT (SGPT) 28 U/L (12-78) [facility] GFR >60 ml/min/1.73m2 (>59) [facility] GFR ( AMER) >60 ml/min/1.73m2 (>59) [facility] GFR INTERPRETATION [facility] --NORMAL KIDNEY FUNCTION OR MILD DISEASE - GFR >OR= 60CHRONIC KIDNEY DISEASE - GFR 15 - 59RENAL FAILURE - GFR <15 Est. GFR calculation based on the MDRDstudy equation, which assumes a steadystate for creatinine. Est. GFR should notbe used for medication dosing. ID Date Data Source [id number] 12/23/2020 04:33:04 PM EDT [facility] Name Value Range Interpretation Code Description Data Ximena rce(s) Supporting Document(s) NT PRO BNP 3847 pg/mL (0-125) [facility] ID Date Data Source [id number] 12/23/2020 04:33:04 PM EDT [facility] Name Value Range Interpretation Code Description Data Ximena rce(s) Supporting Document(s) BILIRUBIN,CONJUGATED <0.1 mg/dL (0.0-0.3) [facility] ID Date Data Source [id number] 12/23/2020 04:06:00 PM EDT [facility] Name Value Range Interpretation Code Description Data Ximena rce(s) Supporting Document(s) APTT 23.3 s (22.0-34.3) [facility] ID Date Data Source [id number] 12/23/2020 04:06:00 PM EDT [facility] Name Value Range Interpretation Code Description Data Ximena rce(s) Supporting Document(s) PT 9.9 s (9.2-11.9) [facility] INR 0.95 [facility] SUGGESTED THERAPEUTIC RANGES USING INR F ORSTABILIZED ANTICOAGULATED PATIENTS:STANDARD DOSE THERAPY INR 2.0-3.0 DVT, PE, PREVENT DVT OR EMBOLISMHIGH DOSE THERAPY INR 2.5-3.5 PREVENT EMBOLISM FROM MECHANICAL HEART VALVE ID Date Data Source [id number] 12/23/2020 03:19:13 PM EDT [facility] Name Value Range Interpretation Code Description Data Ximena rce(s) Supporting Document(s) ROOM TEMP AB SCREEN [facility] ROOM TEMP AB SCREEN NEGATIVE ID Date Data Source [id number] 12/24/2020 12:10:21 PM EDT [facility] Name Value Range Interpretation Code Description Data Ximena rce(s) Supporting Document(s) SPECIMEN DESCRIPTION [facility] STAPH SCREEN RESULTS (ONEGSA) [facility] COMMENT [facility] GENE TO DETECT STAPH AUREUS. (2) RT-P CR WAS PERFORMED FOR THE mecA AND [employer] GENES TO DETECT METHICILLIN RESISTANCE IN STAPH AUREUS. ID Date Data Source [id number] 12/12/2020 03:36:00 PM EDT [facility] Name Value Range Interpretation Code Description Data Ximena rce(s) Supporting Document(s) Color Urine Laboratory test result M [facility] ([facility] Appearance of Urine Laboratory test result [facility] ([facility] Specific [place] 1.025 1.00-1.03 [facility] ([facility] Glucose Urine Laboratory test result Above high normal [facility] ([facility] PH Urine 7.5 5.0-8.0 [facility] ([facility] Ketones Laboratory test result [facility] ([facility] Bilirubin.total [Presence] in Urine by Test strip Laboratory test res ult [facility] ([facility] Blood Urine Laboratory test result M [facility] ([facility] Urobilinogen 0.2 EU/dl 0.2-1.0 [facility] ([facility] Protein Urine Laboratory test result [facility] ([facility] Nitrite Laboratory test result [facility] ([facility] Leukocytes Laboratory test result ME DENT ([facility] ID Date Data Source [id number] 12/11/2020 07:03:09 AM EDT [facility] NT INFORMATIONPatient MRN Name Date of Age Gend*PT [id number] Minoo Velasquez III 1950 70 years M ---PT Location Admission Date/Time Visit ID Attending Provider --- --- --- --- EPI ID CSN Admitting Provider [id number] ---I have reviewed all the pertinent notes for Minoo Velasquez III and agree withthe documentation.Warren Dykes MD Name Value Range Interpretation Code Description Data Ximena rce(s) Supporting Document(s) ID Date Data Source [id number] 12/10/2020 02:13:43 PM EDT [facility] NT INFORMATIONPatient MRN Name Date of Age Gend*PT [id number] Minoo Velasquez III 1950 70 years M ---PT Location Admission Date/Time Visit ID Attending Provider --- --- --- --- EPI ID CSN Admitting Provider [id number] ---Cardiology Office VisitSubjectiveChief Complaint: Follow-up cardiac catheterization [...] arterial disease status post left femoral endarterectomy 38326. Iron deficiency anemia9. Vitamin B12 [id number]. JERI 11/27/2020 LVEF 65%. Mild LVH. Severe [...] accompanied by his . [facility] and treated for [...] HistoryProblem Relation Age of Onset Myocardial Infarction (NV) Father Healthy, No Significant History MotherSocial HistorySocioeconomic [...] Social Gatherings with Friends and Family: Attends [employer]: Active Member of Clubs or Organizations: [...] chest pain 25 tablet 1 nystatin (MYCOSTATIN) 137607 UNIT/ML suspension 0 omeprazole (PRILOSEC) 40 MG [...] Chest pain Shortness of breath Atherosclerosis of [place] coronary artery of [place] heart Type 2 diabetes mellitus with complication [...] rce(s) Supporting Document(s) ID Date Data Source [id number] 12/10/2020 11:35:00 AM EDT [facility]IO CHEST ABDOMEN [...] rce(s) Supporting Document(s) ID Date Data Source [id number] 12/10/2020 11:28:29 AM EDT [facility]FORMATIONPatient MRN Name Date of Age Gend*PT [id number] Minoo Velasquez III 1950 70 years M HOPPT Location Admission Date/Time Visit ID Attending Provider 12/10/20 1000 --- --- EPI ID CSN Admitting Provider [id number] ---Cardiovascular and Thoracic Surgery HISTORY & PHYSICAL1Chief [...] HistoryProblem Relation Age of Onset Myocardial Infarction (NV) Father Healthy, No Significant History MotherSocial History:Social [...] Social Gatherings with Friends and Family: Attends [employer]: Active Member of Clubs or Organizations: [...] pain, Disp: 25tablet, Rfl: 1 nystatin (MYCOSTATIN) 477553 UNIT/ML suspension, , Disp: , Rfl: 0 [...] channelblocker to a beta-jenny after hospitalization in [place]. The patient'sspouse expressed concerns about him being on a beta- jenny given his severelung disease. I agree with her concerns and would not recommend a beta-jenny.I have advised him to resume the calcium channel jenny in lieu of carvedilol.US Carotid doppler bilateralResult Date: 11/27/2020[place]. [place] [address] Patient Name: JULIAN VELASQUEZ : 1950 Sex: [...] cm/s Internal Systolic Velocity 52 cm/s End-Diastolic Xnoimhcq04 cm/s External Systolic Velocity 48 cm/s End-Diastolic [...] HOPSON On 11/27/2020 1:59 PM Workstation ID: [id number] - [id number] / Impression / Plan:Minoo Velasquez presents with [...] in discussion with the patient.Ton Mtz MD [facility] FACSCardiovascular Thoracic Surgery12/10/2020, 11:26 AM Name Value Range Interpretation Code Description Data Ximena rce(s) Supporting Document(s) ID Date Data Source [id number] 12/04/2020 10:31:00 AM EMELY CARRILLO ([facility] Name Value Range Interpretation Code Description Data Ximena e(s) Supporting Document(s) Color Urine Laboratory test result M EDENT ([facility] PH Urine 5.0 5.0-8.0 [facility] Appearance of Urine Laboratory test result [facility] ([facility] Specific [place] 1.010 1.00-1.03 [facility] ([facility] Bilirubin.total [Presence] in Urine by Test strip Laboratory test res ult [facility] ([facility] Glucose Urine Laboratory test result Above high normal [facility] ([facility] Ketones Laboratory test result [facility] ([facility] Protein Urine Laboratory test result [facility] ([facility] Blood Urine Laboratory test result M [facility] ([facility] Urobilinogen 0.2 EU/dl 0.2-1.0 [facility] ([facility] Leukocytes Laboratory test result ME [facility] ([facility] Nitrite Laboratory test result [facility] ([facility] ID Date Data Source [id number] 12/04/2020 10:12:00 AM EDT [facility] ([facility] Name Value Range Interpretation Code Description Data Ximena rce(s) Supporting Document(s) Glu 119 mg/dL 70-110 Above high normal [facility] ([facility] NORMAL RANGES Age WBC [...] HCT IS 5% LESS SOURCE FOR DATA: [employer] 1800 OPERATION MANUAL( AUTOMATED BLOOD COUNTS AND [...] 24 mg/dL 8-23 Above high normal [facility] ([facility] NORMAL RANGES Age WBC [...] HCT IS 5% LESS SOURCE FOR DATA: [employer] 1800 OPERATION MANUAL( AUTOMATED BLOOD COUNTS AND [...] HCT IS 5% LESS SOURCE FOR DATA: [employer] 1800 OPERATION MANUAL( AUTOMATED BLOOD COUNTS AND [...] above >32 mL/min Normal BUN/Creatinine Ratio 29.0 [facility] ([facility] NORMAL RANGES Age [...] HCT IS 5% LESS SOURCE FOR DATA: [employer] 1800 OPERATION MANUAL( AUTOMATED BLOOD COUNTS AND [...] >32 mL/min Normal Na 136 mmol/L 136-145 [facility] ([facility] NORMAL RANGES [...] HCT IS 5% LESS SOURCE FOR DATA: [employer] 1800 OPERATION MANUAL( AUTOMATED BLOOD COUNTS AND [...] >32 mL/min Normal K 4.2 mmol/L 3.5-5.1 [facility] ([facility] NORMAL RANGES Age WBC RBC HGB [...] HCT IS 5% LESS SOURCE FOR DATA: [employer] 1800 OPERATION MANUAL( AUTOMATED BLOOD COUNTS AND [...] Co2 21.2 mmol/L 22.0-29.0 Below low normal [facility] ([facility] NORMAL RANGES Age [...] >32 mL/min Normal CL 100.5 mmol/L 98.0-107.0 [facility] ([facility] NORMAL RANGES Age WBC RBC HGB [...] HCT IS 5% LESS SOURCE FOR DATA: [employer] 1800 OPERATION MANUAL( AUTOMATED BLOOD COUNTS AND [...] >32 mL/min Normal CA 9.7 mg/dL 8.6-10.2 [facility] NORMAL RANGES Age [...] HCT IS 5% LESS SOURCE FOR DATA: [employer] 1800 OPERATION MANUAL( AUTOMATED BLOOD COUNTS AND [...] >32 mL/min Normal Alb 4.3 g/dL 3.5-5.2 [facility] NORMAL RANGES Age [...] HCT IS 5% LESS SOURCE FOR DATA: [employer] 1800 OPERATION MANUAL( AUTOMATED BLOOD COUNTS AND [...] >32 mL/min Normal TP 6.7 g/dL 6.6-8.7 [facility] ([facility] NORMAL [...] HCT IS 5% LESS SOURCE FOR DATA: [employer] 1800 OPERATION MANUAL( AUTOMATED BLOOD COUNTS AND [...] HCT IS 5% LESS SOURCE FOR DATA: [employer] 1800 OPERATION MANUAL( AUTOMATED BLOOD COUNTS AND [...] HCT IS 5% LESS SOURCE FOR DATA: [employer] 1800 OPERATION MANUAL( AUTOMATED BLOOD COUNTS AND [...] mL/min Normal Alt (SGPT) 21 U/L 0-41 [facility] ([facility] NORMAL RANGES Age WBC [...] HCT IS 5% LESS SOURCE FOR DATA: [employer] 1800 OPERATION MANUAL( AUTOMATED BLOOD COUNTS AND [...] mL/min Normal Alp 93.2 U/L 40-129 [facility] NORMAL RANGES [...] HCT IS 5% LESS SOURCE FOR DATA: [employer] 1800 OPERATION MANUAL( AUTOMATED BLOOD COUNTS AND [...] mL/min Normal Ast (Sgot) 16 U/L 0-40 [facility] ([facility] NORMAL RANGES Age WBC [...] HCT IS 5% LESS SOURCE FOR DATA: [employer] 1800 OPERATION MANUAL( AUTOMATED BLOOD COUNTS AND [...] >32 mL/min Normal Tbili 0.27 mg/dL 0.0-1.2 [employer] ([facility] NORMAL RANGES Age WBC [...] HCT IS 5% LESS SOURCE FOR DATA: [employer] 1800 OPERATION MANUAL( AUTOMATED BLOOD COUNTS [...] above >32 mL/min Normal Osmolality-Calculated 277.5 [facility] [employer] ([facility] NORMAL RANGES [...] HCT IS 5% LESS SOURCE FOR DATA: [employer] 1800 OPERATION MANUAL( AUTOMATED BLOOD COUNTS AND [...] >32 mL/min Normal Anion Gap 19 mmol/L [facility] NORMAL RANGES Age [...] HCT IS 5% LESS SOURCE FOR DATA: [employer] 1800 OPERATION MANUAL( AUTOMATED BLOOD COUNTS AND [...] HCT IS 5% LESS SOURCE FOR DATA: [employer] 1800 OPERATION MANUAL( AUTOMATED BLOOD COUNTS AND [...] >32 mL/min Normal eGFR Non-Afr. Citizen Of [place] 92 # [facility] ([facility] [...] HCT IS 5% LESS SOURCE FOR DATA: [employer] 1800 OPERATION MANUAL( AUTOMATED BLOOD COUNTS AND [...] >32 mL/min Normal ID Date Data Source [id number] 12/04/2020 10:12:00 AM EDT [facility] ([facility] Name Value Range Interpretation Code Description Data Ximena rce(s) Supporting Document(s) WBC 14.0 10E3/uL 4.1-10.9 Above high normal [facility] ([facility] NORMAL RANGES Age [...] HCT IS 5% LESS SOURCE FOR DATA: [employer] 1800 OPERATION MANUAL( AUTOMATED BLOOD COUNTS AND [...] HCT IS 5% LESS SOURCE FOR DATA: [employer] 1800 OPERATION MANUAL( AUTOMATED BLOOD COUNTS AND [...] >32 mL/min Normal HCT 43.4 % 37.0-51.0 [facility] NORMAL RANGES [...] HCT IS 5% LESS SOURCE FOR DATA: [employer] 1800 OPERATION MANUAL( AUTOMATED BLOOD COUNTS AND [...] >32 mL/min Normal HGB 14.8 g/dL 12.0-18.0 [facility] ([facility] NORMAL RANGES [...] >32 mL/min Normal MCV 95.6 fL 80.0-97.0 [facility] ([facility] NORMAL RANGES [...] HCT IS 5% LESS SOURCE FOR DATA: [employer] 1800 OPERATION MANUAL( AUTOMATED BLOOD COUNTS AND [...] >32 mL/min Normal MCHC 34.1 g/dL 31.0-36.0 [facility] ([facility] NORMAL RANGES [...] HCT IS 5% LESS SOURCE FOR DATA: [employer] 1800 OPERATION MANUAL( AUTOMATED BLOOD COUNTS AND [...] HCT IS 5% LESS SOURCE FOR DATA: [employer] 1800 OPERATION MANUAL( AUTOMATED BLOOD COUNTS AND [...] >32 mL/min Normal PLT 227 10E3/uL 140-440 [facility] ([facility] NORMAL RANGES Age WBC RBC [...] HCT IS 5% LESS SOURCE FOR DATA: [employer] 1800 OPERATION MANUAL( AUTOMATED BLOOD COUNTS AND [...] >32 mL/min Normal RDW-CV 13.7 % 11.5-14.5 [facility] ([facility] NORMAL [...] HCT IS 5% LESS SOURCE FOR DATA: [employer] 1800 OPERATION MANUAL( AUTOMATED BLOOD COUNTS AND [...] HCT IS 5% LESS SOURCE FOR DATA: [employer] 1800 OPERATION MANUAL( AUTOMATED BLOOD COUNTS AND [...] >32 mL/min Normal Neut% 83.0 % 37.0-92.0 [facility] ([facility] NORMAL [...] HCT IS 5% LESS SOURCE FOR DATA: [employer] 1800 OPERATION MANUAL( AUTOMATED BLOOD COUNTS AND [...] >32 mL/min Normal MXD% 5.9 % 0.1-24.0 [facility] ([facility] NORMAL RANGES [...] HCT IS 5% LESS SOURCE FOR DATA: [employer] 1800 OPERATION MANUAL( AUTOMATED BLOOD COUNTS AND [...] Neut# 11.6 % 2.0-7.8 Above high normal [facility] ([facility] NORMAL RANGES Age [...] HCT IS 5% LESS SOURCE FOR DATA: [employer] 1800 OPERATION MANUAL( AUTOMATED BLOOD COUNTS AND [...] >32 mL/min Normal Lym# 1.6 10E3/uL 0.6-4.1 [employer] ([facility] NORMAL RANGES Age WBC [...] HCT IS 5% LESS SOURCE FOR DATA: [employer] 1800 OPERATION MANUAL( AUTOMATED BLOOD COUNTS AND [...] >32 mL/min Normal MXD# 0.8 10E3/uL 0.0-1.8 [facility] ([facility] NORMAL RANGES Age WBC [...] HCT IS 5% LESS SOURCE FOR DATA: [employer] 1800 OPERATION MANUAL( AUTOMATED BLOOD COUNTS AND [...] >32 mL/min Normal MPV 9.7 fL 9.0-13.0 [facility] NORMAL RANGES Age [...] HCT IS 5% LESS SOURCE FOR DATA: [employer] 1800 OPERATION MANUAL( AUTOMATED BLOOD COUNTS AND [...] >32 mL/min Normal ID Date Data Source [id number] 11/27/2020 01:59:25 PM EDT [address] [address]Lkvphux Name: MINOO CHAVISSHAWNOB: 1950Sex: MOrdering Provider: TING LORENZANAuthjossie Prov: TING DESOUZAReferrsiva Provider: Procedure Performed: US CAROTID BILATERALExam Date: 11/27/2020 13:55MRN: [id number] Number: [id number] Class: OutpatientAccount #: [id number] for Exam: TAVR protocolTechnique: Duplex sonography was [...] NASIR HOPSON On 11/27/2020 1:59 PMWorkstation ID: [id number] Name Value Range Interpretation Code Description Data Xmiena rce(s) Supporting Document(s) ID Date Data Source [id number] 11/27/2020 12:22:13 PM EDT [facility] Name Value Range Interpretation Code Description Data Ximena rce(s) Supporting Document(s) &PDF [facility] ISUUUu2pJxVORaPr15/EKJvzZREtv7AkCUznYAy4HLztPDBgJ2ZhkIesFCAZRiSvBiSVFH3IQYPZHHzL hdG [file] ICAgICAgICAgICAgICAgICAgICAgICAgICAgICAgICAgICAgICAgICAgICAgICAgICAgICAgICAgICAg ICAgICAgICAgICAgICAgICAgICAgICAgICAgICAgIC YqUKGvWI3DVOBvYLEzMTTxKNAsPWXxLINjRTZiIJCrLCFmDQCjOVXiNWNkZLAmQFFsFDEoRFGjNTHpBQ KjSUGkGZLoZSYlVRGrSGEaCNUkLUDgOVLcDMOzOXFnRIMiNKItDZIgSAHyPIXxTY8FIFEhSQNoHVUjQJ AgICAgICAgICAgICAgICAgICAgICAgICAgICAgICAg RNOuELUsYDNrOYLeZPYdYCLzUKOdDQLuMWHeTAFbJHUrRLDuJNVbBAIaUCCuCLWvDOIsOHOmSGGuGT0S ICAgICAgICAgICAgICAgICAgICAgICAgICAgICAgICAgICAgICAgICAgICAgICAgICAgICAgICAgICAg ICAgICAgICAgICAgICAgICAgICAgICAgICAgICAgIC VeDAXgMWXvQJ1SHBFbJTFmXBIwXSTlEVDwTPLvKLFsZEZmTQDwMIZuKQZdGVXkRTQlOIHbZGWgIANaJK FiGUMpXBNzCETrBCBnWXSuBLTzTDPuPNMaEGAvPVOpOCVsKKMqOIHrJVTvQEZcUMYmVR3JBRQmIGRfRZ AgICAgICAgICAgICAgICAgICAgICAgICAgICAgICAg ICAgICAgICAgICAgICAgICAgICAgICAgICAgICAgICAgICAgICAgICAgICAgICAgICAgICAgICAgICAg OE4BLRMgYYHaJJHpUZTxMNVgINLmUPKpQOSqQZLhYSZkDIOaRRXoYFBdMQXjYMSgNNYmRHTkNYTuNLQs ICAgICAgICAgICAgICAgICAgICAgICAgICAgICAgIC ZxMKCmCUAxQQQdFJ8KOMBlIRZuJJTxNDMdOWCjKYSeOZAvNUKdOMEjWHHsOULjWBVkWYIwCJBxKOUfUQ CuBRIdXNVkRSRcIPZcWPKyXMZtWLMeDIRqASWoIKOzFNEmQQNiAKQyFQBcLGHdSNOpZEUiMM7NRSIfLE AgICAgICAgICAgICAgICAgICAgICAgICAgICAgICAg ICAgICAgICAgICAgICAgICAgICAgICAgICAgICAgICAgICAgICAgICAgICAgICAgICAgICAgICAgICAg MWPmTC0HOYZzSGYmWGOmVTPrWBNeNZAzHAClKJAwDZQkZDYcVRNmXKYpAONwFXQcPBAhJRQoQABjNOHa ICAgICAgICAgICAgICAgICAgICAgICAgICAgICAgIC CiMAIdZONvXLWbPOHsCB4KLC75mNKrr6G1MZYgSD5vkut/Uf7GYDwlczDnmAJlCC7BGvSfMV0wvp6KAd GjKR7rfa5NEUkBMgWrW7V8mEGiOKQhYOXJFoQeE15aNXtwNi39CKujLEWxFvQyMVg8Kx4MLzKmL5gjIN StIeT6UPItAfY8TXIgCtC7BMDyFzRnUSUnJDAmEY9B HRFnS022wkQuRU3TXg1YVgKbZN8trj6ENyoaHBInEbmRAey6UYzxXM0ZjZCqnJCxBFXeLXKUFxClO4ii q3HmWnYkYWILQZsnDE7Pg1KmgNSoSUk+Tf8KGX0zo1IuCYvcALMdOJ7svd8XLJhOEcSzP0RptJvaKQtq kBpglhCbWM3JQXUqXVTeeFTxYRhiOCFHDT7ELCwmFI M5FWOgrbVboLQmIRveHB8IOTCbmaHeGpprLRUEYBj+Kf2NBT8fw0KbXLfxZDTlRU2pnw1OXPwSBxTdP2 K7eICyY2G4YVynKp4NMVQrFJKgJpugYQDXNWudRW6KEV2luaK2PH8MpTPxXDGhQOEgdHStMFj9J18zzC DmRYdfGG5NIEA+Concha+Hm1CKKGtBMSqUAGgHzZtJJLX JvCqL6JfJ2PWg1MqE7JuMO15wPkywkZkCDheME9LHC7hWXKmVGWHUF9LnQVoyE4tzqQeEWGzVBOKGxCy W55mwVIrFQBaDYX2FKIdOr7NOVNyC3WhvuWwhWsvvgUxXFJaQGWSPN2FZAllbqNmwIHwdAihPZ08tDcr LJ3TEg8LUwGdPQ2zot1BzAOvZm9PUQJdGf3ZEKVuAP HpMNJjLTB9FUUvRsXiXSgyNZDnVDZpVHD0OFIvKSBuID6DJoMjEMJsPQP6ACNiPFVvZGLdpp9LWCGuUL G8ScLtGJWgKEHwALJmKPzqARPpILCmMHr1BGNmFEPlXJ5BBgKhBSNwGRDySLUoRPCaHADdtq6YSHIfYY VjTvSbKTPrTCOaONEdMHlxIAPlOFI9HKZgGBAkABUi KT6WFaOaYMWdNYJ4CljcHGUtEIRbnz2FSWOlYNHkBvfiPNDuOEDmQGBkHWdqGUHsLRD0VES7OFWcRBMh SD2TKjEpZVPcENo2ELJdOGByWHBtjd6GBIUfUXQjSMyxMJHwGBAoJVTiKRklNHAcSWQvLtGxXMMlQTSn IO6XIyEoZKZxOLP8WOncGHAnRRGjbq1VRCUoQEDoZG U7DIPaWXHwSZQlJGtrDDIdWYTuXZXcYRTrOWXmPD7PErUpTKJjXAQiTWEpOYXiSUCgpe1PNSBeZJGzRh L2DUYgRUEpXGJmJZkiSCUfDJB3DnB0ZARlRRApLG3PMhDzRZGeMYv2SwPpDKKaFQSnsw4QCGJgPDRfKw o8PKMwTRLcLBNgBZvzEBNtCWG6GSU4WCNcUXXfCJ8Y LkFtKWRtJAnsRiYaTKGiRGMnoq8VXWBsSNKtOaJ0VqGeADCgEGKoTDknCEQtILGmXTW5MBCpGFCvVJ4Z IiXqRLHfTtH8ScmmTTXwUGHouy6AYQTaUAB5SDwuWUTxXZJlNQAqPCrfLLTzGXNaSLt2WKYvIQSvXJ5T JxZeNXJeSHJ1FPGqXHJrTFZqpr4FUMBoQWQ3CfldKy EoLUZlJOLlUNjeGWYqEQXkCDM4HPXkFBNfTV6EJoWcUNvqQZEYMix3LDcmC4k6RNZxQh6ZC8Hwg2BvPg GsTAICDUqsMD9ulqMuDVDmZe3BH6iWRkr7WDVzKcD5PCRdRApeOfIcWAviCqq1BIClYlE4ZmAqIg4fIQ xbIxP9ZAyoP2TdNYCpUUCrASUvCHtoXXUuYCGvN2Ms TmKiBW3UWo4EJwC0TJH2kIGnSd2HKVYxCyqBKnTrNN6PTZh= ID Date Data Source [id number] 11/27/2020 12:24:50 PM EDT [facility] NT INFORMATIONPatient MRN Name Date of Age Gend*PT [id number] VelasquezKeithMinoo E III 1950 70 years M HOPPT Location Admission Date/Time Visit ID Attending ProviderCV-27 11/27/20628 --- Callie Enamorado MD([id number]) EPI ID CSN Admitting Provider [id number] Callie Enamorado MD([id number])Cardiology H&P The patient is a 70-year-old man with a complex medical history including severeCOPD, coronary disease status post extensive prior coronary stenting, and aorticstenosis status post SAVR. 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 Plan for the femoralapproach.Shanique Ramírez MD [facility] Name Value Range Interpretation Code Description Data Ximena rce(s) Supporting Document(s) ID Date Data Source [id number] 11/27/2020 10:28:46 AM EDT [facility] Name Value Range Interpretation Code Description Data Ximena rce(s) Supporting Document(s) &PDF [facility] DJLWHt1rIrRZXsPe44/PWEdjXMJda8DsPUhxEMs5LHapWEGvE6WllFpdXCPVLmLtHwASTE0AOOPIIGeE hdG [file] ICAgICAgICAgICAgICAgICAgICAgICAgICAgICAgICAgICAgICAgICAgICAgICAgICAgICAgICAgICAg ICAgICAgICAgICAgICAgICAgICAgICAgICAgICAgICAgICAgDQogICAgICAgICAgICAgICAgICAgICAg ICAgICAgICAgICAgICAgICAgICAgICAgICAgICAgIC AgICAgICAgICAgICAgICAgICAgICAgICAgICAgICAgICAgICAgICAgICAgICAgDQogICAgICAgICAgIC AgICAgICAgICAgICAgICAgICAgICAgICAgICAgICAgICAgICAgICAgICAgICAgICAgICAgICAgICAgIC AgICAgICAgICAgICAgICAgICAgICAgICAgICAgDQog ICAgICAgICAgICAgICAgICAgICAgICAgICAgICAgICAgICAgICAgICAgICAgICAgICAgICAgICAgICAg ICAgICAgICAgICAgICAgICAgICAgICAgICAgICAgICAgICAgICAgDQogICAgICAgICAgICAgICAgICAg ICAgICAgICAgICAgICAgICAgICAgICAgICAgICAgIC AgICAgICAgICAgICAgICAgICAgICAgICAgICAgICAgICAgICAgICAgICAgICAgICAgDQogICAgICAgIC AgICAgICAgICAgICAgICAgICAgICAgICAgICAgICAgICAgICAgICAgICAgICAgICAgICAgICAgICAgIC AgICAgICAgICAgICAgICAgICAgICAgICAgICAgICAg DQogICAgICAgICAgICAgICAgICAgICAgICAgICAgICAgICAgICAgICAgICAgICAgICAgICAgICAgICAg ICAgICAgICAgICAgICAgICAgICAgICAgICAgICAgICAgICAgICAgICAgDQogICAgICAgICAgICAgICAg ICAgICAgICAgICAgICAgICAgICAgICAgICAgICAgIC AgICAgICAgICAgICAgICAgICAgICAgICAgICAgICAgICAgICAgICAgICAgICAgICAgICAgDQogICAgIC AgICAgICAgICAgICAgICAgICAgICAgICAgICAgICAgICAgICAgICAgICAgICAgICAgICAgICAgICAgIC AgICAgICAgICAgICAgICAgICAgICAgICAgICAgICAg ICAgDQogICAgICAgICAgICAgICAgICAgICAgICAgICAgICAgICAgICAgICAgICAgICAgICAgICAgICAg SEGpBYFuJMVqPIZbQRQsGTFrXYOeOTJlHENpGTGqGXElJRUtRKGlGLCoSLGvSFw1E3rsPYCbQQErFH3p NKl5Vg3+BIhKUbYhICG2edIaoQ4SJC9fq5YvGHodDK Hst5JoCPk8PS4ILKUfKErbJW7WAKpsdo3BRXSkPZVfcCBTr8ggWkDwWQC7ZQPhUlptVP1STCVgQ8yhzz YhLTEcGHBHLQbxRCTMSV2QKmLyJ3XcqO46FNDEUq9+TBvakaLyUhzZMcI2QQDyn7ExIXr6XH2TTJAqYG slUO8OGQUusB7jLYeeSD7QIjAhBGAmTOFSSlNfE34l fEUnCGo5F8WaPpIyBDMsExndOBQpRXbyMeBoYCPsAqSzQSgqTJ0+ID4+BQosQJ5MBCpihrMqZGHbIg1L NDVpFIG2SUHcqJQqAjBeJHZLUQkxOF1TiFQoIZH0lS2jITyxFHFkQZXzA6bAUkRqmBbdHR46rAkvssUl bCBdDQo+Dz2LMM0uz5JuYGw6guXlYAtePWO2FPbrHZ ZxCXKzDJDyVBU4QVT4CCXBOkWjMKLzGEZsORlkQXTxMVDtsj7CNGWgKOGvIzqgHhQdRQHrALNzUFxzZD PfSKH5BgCcPCOuULXnXF2WAaZgPZXvFBSpNPKkZHVpCTXado0ROJPiHTFtSeO1LvTzCJIrJIWjCOjnBR WnBSSjFfmpBHNfLLWiJR1LWbQyHHCkDWH0PeZiDAEl GJCotb6LPRLbUGLbBOEzMMOvEOScQTRoYOiaUKMxPYN8XAu5LACqQXAyHN9MEpAfQEHwCBW2RVOxSQPb UBMxsp1JGUVnCMPnNPg7YCScCEMxFUEtQHzyVETzWUO3ELVcZNGpWFIxPF0DMiNeSBDyGXroKgJtTROz UWJbbk2TGNEzVBYaAmRcDDCfIWPiXYLaMFngESAiBV QoNIO5XLVuBADhKU8GWdIrAZAkIIY0UULxJZYcCBDjdr7DBQKpXUFtCuT1AMWwHSWuMQQnJHkfCSWkDM QcUAN7RVPrLSZgGY1ODuNmRCGiZOTmRHWfFKUsTLOevq7CPXNlSHApFGMqOHYwQPTnEUIkCKkkQKIwDH O3BfP3QKZyOBVmWR5BSiYgWIWvVTDoYRJkJINiOJSf sz1MXUWaSWTxREA7ZBEcFWBiZOSaESdvEGGwTKEfEQF2AJCsOISlND8PBvFbLQLkHqMoRkFzLTZeUGTi pk0NBXTaQMIwXJwsRSQoYIBzJULeQRa0gfJmlYRkWYy8ZM3HF1AyioZfDynGQi6Io921CRL5MMNfJw3A O8akYu5bAESuKRPGWh5OCOi4V5HuZpV7DNW2CWQsAY V4IRRfQli1KyYeUsKrJYHrLtC+IJafEcLdDorxHKadJmW2WqYmJTPiHJEtIEEoCCWvUNHrTw5qONIPJl 4+IPwdrNTzlUcyIOYXSbF4AFfdKHtfJIEEXx0X ID Date Data Source [id number] 11/27/2020 09:35:23 AM EDT [facility] INFORMATIONPatient MRN Name Date of Age Gend*PT [id number] Minoo Velasquez III 1950 70 [facility] Ad[facility] Date/Time Visit ID Attending [id number] 11/27/2029 --- Callie Enamorado MD([id number]) EPI ID CSN Admitting Provider [id number] Callie Enamorado MD([id number])Patient has been seen and evaluated there is no change from the most recentevaluation Name Value Range Interpretation Code Description Data Ximena rce(s) Supporting Document(s) ID Date Data Source [id number] 11/27/2020 07:43:46 AM EDT [facility] Name Value Range Interpretation Code Description Data Ximena rce(s) Supporting Document(s) EKG [facility] JYAPHs8aDkTGJkNby4YsIlJqJSEfCK1ukio1E5R0iFXiO6SrvPLhs4hzM9SvH6IxKBEyLYDWPH8YeKSd jb2 [file] soPsLBOmAXDABn5Gk297JZEkBECNTew+PmvxhVJizCtgNVTIPRv1HkUHIKFIZ5L= ID Date Data Source [id number] 11/27/2020 09:11:10 AM EDT [facility] Name Value Range Interpretation Code Description Data Ximena rce(s) Supporting Document(s) SPECIMEN DESCRIPTION [facility] INFLUENZA A (NEG) [facility] INFLUENZA B (NEG) [facility] RSV (NEG) [facility] COMMENT [facility] THE [place] FDA HAS MADE THIS TEST AVAILABL JARRETER AN EMERGENCY USE AUTHORIZATION(EUA) FOR THE DETECTION AND/OR DIAGNOSISOF THE VIRUS THAT CAUSES COVID-19.PERFORMED AT [address] [place] [id number] COVID19 RESULT (NDET) [facility] THIS ASSAY AMPLIFIES AND DETECTSTHE TARG ET RNA USING REAL-TIME PCR.TESTING PERFORMED ON GetBack GENEXPERTNEGATIVE 2019_NCOV RT-PCR RESULTS DONOT PRECLUDE 2019_NCOV INFECTION ANDSHOULD NOT BE USED THE SOLE BASISFOR PATIENT MANAGEMENT DECISIONS. FIRST TEST [facility] EMPLOYED IN HLTHCARE [facility] [place] SYMPTOMATIC [facility] [place] [facility] DATE OF SYMPT ONSET [facility] HOSPITALIZED [facility] ICU [facility] [place] CONGREGATE CARE SET [facility] ID Date Data Source [id number] 11/27/2020 08:58:58 AM EDT [facility] Name Value Range Interpretation Code Description Data Ximena rce(s) Supporting Document(s) SODIUM 136 mmol/L (136-145) [facility] POTASSIUM 3.8 mmol/L (3.6-5.2) [facility] CHLORIDE 94 mmol/L (100-108) L [facility] CO2 32 mmol/L (22-31) H [facility] ANION GAP 10 mmol/L (7-16) [facility] UREA NITROGEN 44 mg/dL (7-24) H [facility] CREATININE 1.11 mg/dL (0.80-1.30) [facility] BUN/CREAT RATIO 39.6 RATIO (10.0-20.0) H [facility] GLUCOSE 279 mg/dL (70-99) H [facility] [place] CALCIUM 11.4 mg/dL (8.4-10.2) H [facility] [place] GFR >60 ml/min/1.73m2 (>59) [facility] GFR ( AMER) >60 ml/min/1.73m2 (>59) [facility] GFR INTERPRETATION [facility] [place] --NORMAL KIDNEY FUNCTION OR MILD DISEASE - GFR >OR= 60CHRONIC KIDNEY DISEASE - GFR 15 - 59RENAL FAILURE - GFR <15 Est. GFR calculation based on the MDRDstudy equation, which assumes a steadystate for creatinine. Est. GFR should notbe used for medication dosing. ID Date Data Source [id number] 11/27/2020 08:37:43 AM EDT [facility] Name Value Range Interpretation Code Description Data Ximena rce(s) Supporting Document(s) WBC 17.0 10*3/uL (4.1-11.0) H [facility] [place] RBC 5.39 10*6/uL (4.60-6.10) [facility] HGB 17.7 g/dL (13.5-18.0) [facility] HCT 51.4 % (41.0-53.0) [facility] [place] PERFORMED AT [address] [place] [address] N [place] [address] MCV 95.4 fL (80.0-95.0) H [facility] [place] MCH 32.8 pg (27.0-32.0) H [facility] [place] MCHC 34.4 g/dL (32.0-36.0) [facility] RDW 13.6 % (10.5-14.5) [facility] PLT 232 10*3/uL (150-450) [facility] MPV 8.0 fL (7.1-10.7) [facility] ID Date Data Source [id number] 11/27/2020 06:56:00 AM EDT [facility] Name Value Range Interpretation Code Description Data Ximena rce(s) Supporting Document(s) SARS coronavirus 2 RNA [Presence] in Res piratory specimen by GLORIA with probe detection NOT DETECTED [facility] This lab was reported by [facility]. ID Date Data Source [id number] 11/25/2020 04:48:38 PM EDT [facility] INFORMATIONPatient MRN Name Date of Age Gend*PT [id number] Minoo Velasquez III 1950 70 years M ---PT Location Admission Date/Time Visit ID Attending Provider --- --- --- --- EPI ID CSN Admitting Provider [id number] ---Cardiology Office VisitSubjectiveChief Complaint: Hospital follow-up visitHPI:This [...] arterial disease status post left femoral endarterectomy 68503. Iron deficiency anemia9. Vitamin B12 deficiencyWho presents to the office today for follow-up. He is accompanied by his wifeAlly. Patient was evaluated at [facility] for shortness of breath for3 to 4 [...] HistoryProblem Relation Age of Onset Myocardial Infarction (NV) Father Healthy, No Significant History MotherSocial HistorySocioeconomic [...] Social Gatherings with Friends and Family: Attends [employer]: Active Member of Clubs or Organizations: [...] chest pain 25 tablet 1 nystatin (MYCOSTATIN) 312790 UNIT/ML suspension 0 omeprazole (PRILOSEC) 40 MG [...] 07/17/2019 31.50 cm3 Final Left [facility] 07/17/2019 3.60 cm Final LA/Ao Ratio 07/17/2019 [...] Chest pain Shortness of breath Atherosclerosis of [place] de[place] coronary artery of [place] heart Type 2 diabetes mellitus with complication [...] rce(s) Supporting Document(s) ID Date Data Source [id number] 11/22/2020 09:51:00 PM EDT [facility] ([facility], ) Name Value Range Interpretation Code Description Data Ximena rce(s) Supporting Document(s) ABG pH (Arterial) 7.403 units 7.350-7.450 Normal (applie s to non-numeric results) [facility] ([facility], ) ABG Partial Pressure Co2 38.1 mmHg 35.0-45.0 Normal (applies to non-numeric results) [facility] ([facility], ) ABG Partial Pressure O2 304.1 mmHg 75.0-100.0 Above high normal [facility] ([facility], ) ABG Total Co2 24.4 meq/L 23.0-31.0 Normal (applies to non-numeric re sults) [facility] ([facility], ) ABG Hco3 23.2 meq/L 22.0-26.0 Normal (applies to non-numeric resul ts) [facility] ([facility]) ABG Base Excess -1.2 Normal (applies to non-numeric results) [facility] ([facility]) ABG Standard Hco3 23.5 meq/L 22.0-26.0 Normal (applies to non- numeric results) [facility] ([facility]) ABG O2 Saturation 99.4 % 95.0-99.0 Above high normal [facility] ([facility]) ID Date Data Source [id number] 11/22/2020 05:55:00 PM EDT [facility] Name Value Range Interpretation Code Description Data Ximena rce(s) Supporting Document(s) SARS-CoV-2 (COVID 19) NEGATIVE - SARS-CoV-2 (COVID19) [facility] This lab was ordered by [facility] a nd reported by [facility]. ID Date Data Source [id number] 10/23/2020 09:54:00 [place] [address] PHONE: [phone] FAX: [phone] Name .................. : EVA Abdullahi Acct Number.................. : [id number] ROOM. ................. : MR Number ................... : [id number] Stay type ............. : O/P Discharge Date......... ... : 10/22/20 Admit Date ......... : 05/18/21 Admit Phys .................... : OSWALD MORLEY Date of ....... : 1950 Family Phys ................... : OSWALD MORLEY Phone .................. : [phone] Age ................................ : 69 Film# .................. .:[id number] Sex ................................. : M Unsigned transcriptions are preliminary reports and do not represent a medical or legal document RIBS UNILAT W/PA CXR [place] [id number] COMPLETE:10/22/20 11:35 RLH 51760 Reason for Exam: L LATERAL RIB DEFORMITY, [...] for: OSWALD SHANIQUE via fax Copy for: [address] [place] [address] Page 1 of 1 Name Value Range Interpretation Code Description Data Ximena rce(s) Supporting Document(s) ID Date Data Source [id number] 10/08/2020 02:22:00 PM EDT [facility] ([facility], ) Name Value Range Interpretation Code Description Data Ximena rce(s) Supporting Document(s) FVC-Pred 4.20 L [facility] ([facility], ) PDFReport Laboratory test result [facility] ([facility]) FVC-Pre 2.00 L [facility] ([facility]) FVC-%Pred-Pre 47 L [facility] ([facility]) Fev1-Pred 3.11 L [facility] ([facility]) FVC-LLN 3.32 L [facility] ([facility]) Fev1-Pre 0.74 L [facility] ([facility]) Fev1-%Pred-Pre 23 L [facility] ([facility]) Fev6-Pred 3.97 L [facility] ([facility]) Fev1-LLN 2.37 L [facility] ([facility]) Fev6-%Pred-Pre 50 L [facility] ([facility]) Fev6-Pre 2.00 L [facility] ([facility]) Fev6-LLN 3.11 L [facility] ([facility]) Goq9pid-Ohv 37 % [facility] ([facility]) Pif7xke-Igoq 74 % [facility] ([facility]) Dkf2pfa-%Pred-Pre 50 % [facility] ([facility]) Wjx3ejj-KZG 65 % [facility] ([facility]) Qct3ozy-Ihpx 94 % [facility] ([facility]) Jfq7iha-%Pred-Pre 105 % [facility] ([facility]) Bbd0uey-Pbc 100 % [facility] ([facility]) FEFMax-Pred 8.20 L/E/sec [facility] ([facility]) FEFMax-LLN 6.01 L/E/sec [facility] ([facility]) FEFMax-%Pred-Pre 18 L/E/sec [facility] ([facility]) FEFMax-Pre 1.52 L/E/sec [facility] ([facility]) Qhr3684-Frw 0.44 L/E/sec [facility] ([facility]) Fph9257-%Pred-Pre 17 L/E/sec [facility] ([facility]) Msh6023-Rter 2.44 L/E/sec [facility] ([facility]) Etc6738-FBQ 0.93 L/E/sec [facility] ([facility]) ExpTime-Pre 5.15 sec [facility] ([facility]) Fdh4lou4-Rrrj 78 % [facility] ([facility]) Kux4fxt0-%Pred-Pre 47 % [facility] ([facility]) Fbf0adp6-Ngj 37 % [facility] ([facility]) Cib5smh4-SQN 69 % [facility] ([facility]) ID Date Data Source [id number] 08/27/2020 11:55:00 [place] [address] PHONE: [phone] FAX: [phone] Name .................. : VELASQUEZLazarus Ricci Number.................. : [id number] ROOM. ................. : MR Number ................... : [id number] Stay type ............. : O/P Discharge Date......... ... : 08/22/20 Admit Date ......... : 08/22/20 Admit Phys .................... : OSWALD [facility] Date of ....... : 1950 Family Phys ................... : OSWALD PEYMAN Phone .................. : [phone] Age ................................ : 69 Film# .................. .:[id number] Sex ................................. : M Unsigned transcriptions are preliminary reports and do not represent a medical or legal document CT THORAX W/O CONTRAST [id number] COMPLETE:08/22/20 19:01 JOAQUÍN 6522 (REASON FOR CHEST: [...] 08/27/20 11:55, KGG Page 1 of [address] [place] [address] PHONE: [phone] FAX: [phone] Name .................. : EVA Abdullahi Acct Number.................. : [id number] ROOM. ................. : MR Number ................... : [id number] Stay type ............. : O/P Discharge Date......... ... : 08/22/20 Admit Date ......... : 08/22/20 Admit Phys .................... : [facility] Date of ....... : 1950 Family Phys ................... : [facility] Phone .................. : [phone] Age ................................ : 69 Film# .................. .:[id number] Sex ................................. : M Unsigned transcriptions are preliminary reports and do not represent a medical or legal document CT THORAX W/O CONTRAST [id number] COMPLETE:08/22/20 19:01 JOAQUÍN 6522 (REASON FOR CHEST: SOB, NEOPLASM [facility] Transcribe Initials: EMMA , Transcribe Date: 08/23/20 23:49, Dictation Date: Copy for: OSWALD BAY via fax Copy for: 710 MED REC Page 2 of 2 Name Value Range Interpretation Code Description Data Ximena rce(s) Supporting Document(s) ID Date Data Source [id number] 07/23/2020 10:02:00 AM EST [facility] [address] [place] [address] [phone] NAME SEX PT STATUS ACCOUNT NUMBER Minoo Velasquez III REG REF [id number] ORDERING PHYSICIAN LOCATION MEDICAL RECORD NO. Karla Mohan US [id number] ATTENDING PHYSICIAN DATE OF DATE OF EXAM/TIME Shanique Ruano 1950 07/23/20947 TYPE / EXAM US ARTERIAL LEGS BILAT REASON FOR EXAM ATHSCL KWIGILLINGOK ARTERIES OF EXTRM W/INTRMT SHAKA BILATERAL LEGS [...] Triphasic waveforms are seen in the left SOFA COVER INSPECTOR to this SFA. Monophasic waveforms are seen [...] rce(s) Supporting Document(s) ID Date Data Source [id number] 06/19/2020 09:29:00 AM EST [facility] ([facility] Name Value Range Interpretation Code Description Data Ximena rce(s) Supporting Document(s) Calcidiol [Mass/volume] in Serum or Plasma Laboratory test result [facility] ([facility] ID Date Data Source [id number] 06/19/2020 09:27:00 AM EST [facility] ([facility] Name Value Range Interpretation Code Description Data Ximena rce(s) Supporting Document(s) Prostate specific Ag [Mass/volume] in Serum or Plasma Laboratory test result [facility] ([facility] ) ID Date Data Source [id number] 06/19/2020 09:27:00 AM EST [facility] ([facility] Name Value Range Interpretation Code Description Data Ximena rce(s) Supporting Document(s) Thyrotropin [Units/volume] in Serum or Plasma Laboratory test result [facility] ([facility] ID Date Data Source [id number] 06/19/2020 09:26:00 AM EST [facility] ([facility] Name Value Range Interpretation Code Description Data Ximena rce(s) Supporting Document(s) Hemoglobin A1c/Hemoglobin.total in Blood 6.6 % 4.50-6.20 Above high normal [facility] ([facility] ID Date Data Source CD4/CD8 RATIO PROFILE [id number] 06/11/2020 12:00:00 AM EST eC W1 ([facility]) Name Value Range Interpretation Code Description Data Ximena rce(s) Supporting Document(s) Deprecated CD4 in Blood 205 630-6789 Abs CD4 Help er eCW1 ([facility]) 240 109-897 Abs CD8 Suppres eCW1 ([facility]) 36.2 30.8-58.5 %CD4 Pos Lymphs eCW1 ([facility]) 0.91 0.92-3.72 CD4/CD8 Ratio eCW1 ([facility]) 40.0 12.0-35.5 % CD8 Pos Lymph eCW1 ([facility]) 17.2 3.4-10.8 WBC eCW1 ([facility]) 4.20 4.14-5.80 RBC eCW1 ([facility]) 40.3 37.5-51.0 HCT eCW1 ([facility]) 13.8 13.0-17.7 HGB eCW1 ([facility]) 96 79-97 MCV eCW1 ([facility]) 32.9 26.6-33.0 MCH eCW1 ([facility]) 94 Not Estab. Neutrophils eCW1 ([facility]) 13.1 11.6-15.4 RDW eCW1 ([facility]) 256 150-450 Platelets eCW1 ([facility]) 34.2 31.5-35.7 MCHC eCW1 ([facility]) 0 Not Estab. Basophils eCW1 ([facility]) 2 Not Estab. Monocytes eCW1 ([facility]) 3 Not Estab. Lymphocytes eCW1 ([facility]) 0 Not Estab. Eosinophils eCW1 ([facility]) 0.6 0.7-3.1 ABS Lymphs eCW1 ([facility]) 0.0 0.0-0.4 ABS Eosinophils eCW1 ([facility]) 0.4 0.1-0.9 ABS Monocytes eCW1 ([facility]) 16.0 1.4-7.0 ABS Neutophils eCW1 ([facility]) 0.1 0.0-0.2 ABS Basophils eCW1 ([facility]) ID Date Data Source ERYTHROCYTE SEDIMENTATION RATE 06/11/2020 12:00:00 AM EST eC W1 ([facility]) Name Value Range Interpretation Code Description Data Ximena rce(s) Supporting Document(s) 30 0-20 ERYTHROCYTE SEDIMENTATION RATE eCW1 ([facility]) ID Date Data Source C REACTIVE PROTEIN QUANTITATIV (At [facility]) 06/11/2020 12:00 :00 AM EST eCW1 ([facility]) Name Value Range Interpretation Code Description Data Ximena rce(s) Supporting Document(s) 0.51 0.00-0.30 C REACTIVE PROTEIN QUANTI TATIV eCW1 ([facility]) ID Date Data Source Comprehensive Metabolic Profile (CMP) 06/11/2020 12:00:00 AM EST eCW1 ([facility]) Name Value Range Interpretation Code Description Data Ximena rce(s) Supporting Document(s) 119 70-100 GLUCOSE, FASTING eCW1 ([facility]) 14 7-18 BLOOD UREA NITROGEN eCW1 ([facility]) 137 136-145 SODIUM LEVEL eCW1 ([facility]) > 60.0 >49 GLOMERULAR FILTRATION RATE eCW 1 ([facility]) 0.97 0.70-1.30 CREATININE FOR GFR eCW1 (Count includes the [facility]) 27 21-32 CARBON DIOXIDE LEVEL eCW1 ([facility]) 102 98-107 CHLORIDE LEVEL eCW1 ([facility]) 4.6 3.5-5.1 POTASSIUM SERUM eCW1 ([facility]) 9.8 8.8-10.2 CALCIUM LEVEL eCW1 ([facility]) 36 12-78 ALT/SGPT eCW1 ([facility]) 17 7-37 AST/SGOT eCW1 ([facility]) 0.3 0.2-1.0 BILIRUBIN,TOTAL eCW1 ([facility]) 81 45-117 ALKALINE PHOSPHATASE eCW1 ([facility]) 1.2 ALBUMIN/GLOBULIN RATIO eCW1 ([facility]) 3.9 3.2-5.2 ALBUMIN eCW1 ([facility]) 7.1 6.4-8.2 TOTAL PROTEIN eCW1 ([facility]) ID Date Data Source [id number] 03/28/2020 09:21:00 AM EDT [facility] ([facility] Name Value Range Interpretation Code Description Data Ximena rce(s) Supporting Document(s) IgG [Mass/volume] in Serum or Plasma 988 mg/dL [id number] [facility] ([facility] ID Date Data Source [id number] 03/28/2020 09:21:00 AM EDT [facility] ([facility] Name [...] SGPT/Alt 29 U/L 7-56 [facility] ([facility] Age 69 yrs [facility] ([facility] Non-Aa GFR Laboratory test result ME DENT ([facility] Afr Amer GFR Laboratory test result [facility] ([facility] Male GFR Interprentation 20-49 yrs >60 [...] >32 mL/min Normal ID Date Data Source [id number] 03/28/2020 09:21:00 AM EDT [facility] ([facility] Name Value Range Interpretation Code Description Data Ximena rce(s) Supporting Document(s) WBC 12.3 10^3/uL 4.2-11.0 Above high normal [facility] T ([facility] CBC W/Automated Diff Laboratory test result [facility] ([facility] COMPLETE BLOOD COUNT RBC 4.34 10^6/uL 4.50-6.30 Below low normal [facility] ([facility] Hemoglobin 14.3 g/dL 14.0-16.0 [facility] MCV 96.3 fL 80.0-94.0 Above high normal [facility] ([facility] Hematocrit 41.8 % 41.0-51.0 [facility] MCH 32.9 pg 27.0-34.0 [facility] ([facility] MCHC 34.2 g/dL 31.0-36.0 [facility] ([facility] RDW 12.9 % 11.5-14.8 [facility] ([facility] Neut 71.8 % 37.0-80.0 [facility] ([facility] MPV 8.8 fL 7.4-10.4 [facility] ([facility] Platelets 319 10^3/uL 150-450 [facility] Eos 2.0 % 0.0-7.0 [facility] ([facility] [place] 7.7 % 3.0-8.0 [facility] ([facility] Lymph 16.8 % 25.0-40.0 Below low normal [facility] ( [facility] Baso 0.3 % 0.0-2.0 [facility] ([facility] %Ig 1.4 % 0.0-0.0 Above high normal [facility] ([facility] %NRBC 0.0 % 0.0-0.0 [facility] ([facility] #Neut 8.83 10^3/uL 2.00-6.90 Above high normal MED[facility] T ([facility] #Eos 0.24 10^3/uL 0.00-0.70 [facility] ([facility] #Lymph 2.06 10^3/uL 0.60-3.40 [facility] ([facility] #[place] 0.95 10^3/uL 0.00-0.90 Above high normal [facility] T ([facility] #Baso 0.04 10^3/uL 0.00-0.20 [facility] ([facility] #Ig 0.17 10^3/uL 0.00-0.10 Above high normal [facility] T ([facility] #NRBC 0.00 10^3/uL 0.00-0.00 [facility] ([facility] Manual Diff Laboratory test result M EDBARBARA ([facility] RBC Morph Laboratory test result ME CARLOS ALBERTO ([facility] ID Date Data Source [id number] 03/30/2020 02:26:00 PM EDT [facility] Name Value Range Interpretation Code Description Data Ximena rce(s) Supporting Document(s) IgG [Mass/volume] in Serum or Plasma 988 mg/dL [id number] [facility] ID Date Data Source [id number] 03/28/2020 10:43:00 AM EDT [facility] Name Value Range Interpretation Code Description Data Ximena rce(s) Supporting Document(s) COMPREHENSIVE METABOLIC PANEL [facility] COMPREHENSIVE METABOLIC PANEL Sodium [Moles/volume] in Serum or Plasma 138 mEq/L 134 - 153 [facility] Potassium [Moles/volume] in Serum or Plasma 4.3 mEq/L 3.6 - 5.0 [facility] Chloride [Moles/volume] in Serum or Plasma 98 mEq/L 98 - 107 [facility] Carbon dioxide, total [Moles/volume] in Serum or Plasma 30 MEQ/L 22 - 30 [facility] Glucose [Mass/volume] in Serum or Plasma 72 MG/DL 65 - 110 [facility] BUN 17 MG/DL 7 - 21 [facility] Creatinine [Mass/volume] in Serum or Plasma 1.0 MG/DL 0.7 - 1.5 [facility] BUN/CREAT 17 8 - 27 [facility] Protein [Mass/volume] in Serum or Plasma 7.4 G/DL 6.3 - 8.2 [facility] Albumin [Mass/volume] in Serum or Plasma 4.6 G/DL 3.9 - 5.0 [facility] Globulin [Mass/volume] in Serum by calculation 2.8 GM/DL 2.4 - 3.2 [facility] A/G RATIO 1.6 0.8 - 2.0 [facility] Calcium [Mass/volume] in Serum or Plasma 10.0 MG/DL 8.4 - 10.2 [facility] Bilirubin.total [Mass/volume] in Serum or Plasma <0.7 MG/DL 0.2 - 1.3 [facility] Alkaline phosphatase [Enzymatic activity/volume] in Serum or Plasma 86 U/L 38 - 126 [facility] Aspartate aminotransferase [Enzymatic activity/volume] in Serum or Plasma 26 U/L 5 - 40 [facility] Alanine aminotransferase [Enzymatic activity/volume] in Seru m or Plasma 29 U/L 7 - 56 [facility] Anion gap 3 in Serum or Plasma 10.0 mmol/L 8.0 - 16.0 [facility] AGE 69 yrs [facility] NON-AA GFR >60 mL/min [facility] AFR AMER GFR >60 mL/min [facility] Male GFR In terprentation 20-49 [...] >32 mL/min Normal ID Date Data Source [id number] 03/28/2020 09:44:00 AM EDT [facility] Name Value Range Interpretation Code Description Data Ximena rce(s) Supporting Document(s) CBC W/AUTOMATED DIFF [facility] COMPLETE BLOOD COUNT Leukocytes [#/volume] in Blood by Automated count 12.3 10^3/uL 4.2 - 11.0 H [facility] Erythrocytes [#/volume] in Blood by Automated count 4.34 10^6/uL 4. 50 - 6.30 L [facility] Hemoglobin [Mass/volume] in Blood 14.3 g/dL 14.0 - 16.0 [facility] Hematocrit [Volume Fraction] of Blood by Automated count 41.8 % 4 1.0 - 51.0 [facility] [facility] Erythrocyte mean corpuscular volume [Entitic volume] by Auto mated count 96.3 fL 80.0 - 94.0 H [facility] Erythrocyte mean corpuscular hemoglobin [Entitic mass] by Automated count 32.9 pg 27.0 - 34.0 [facility] Erythrocyte mean corpuscular hemoglobin concentration [Mass/volume] by Automated count 34.2 g/dL 31.0 - 36.0 [facility] Erythrocyte distribution width [Ratio] by Automated count 12.9 % 11.5 - 14.8 [facility] Platelets [#/volume] in Blood by Automated count 319 10^3/uL 150 - 45 0 [facility] Platelet mean volume [Entitic volume] in Blood by Automated count 8.8 fL 7.4 - 10.4 [facility] Neutrophils/100 leukocytes in Blood by Automated count 71.8 % 37. 0 - 80.0 [facility] Lymphocytes/100 leukocytes in Blood by Manual count 16.8 % 25.0 - 40.0 L [facility] Monocytes/100 leukocytes in Blood by Automated count 7.7 % 3.0 - 8.0 [facility] Eosinophils/100 leukocytes in Blood by Automated count 2.0 % 0.0 - 7.0 [facility] Basophils/100 leukocytes in Blood by Automated count 0.3 % 0.0 - 2.0 [facility] %IG 1.4 % 0.0 - 0.0 [facility] %NRBC 0.0 % 0.0 - 0.0 [facility] al Neutrophils [#/volume] in Blood by Automated count 8.83 10^3/uL 2.00 - 6.90 H [facility] Lymphocytes [#/volume] in Blood by Automated count 2.06 10^3/uL 0.60 - 3.40 [facility] Monocytes [#/volume] in Blood by Automated count 0.95 10^3/uL 0.00 - 0.90 H [facility] Eosinophils [#/volume] in Blood by Automated count 0.24 10^3/uL 0.00 - 0.70 [facility] Basophils [#/volume] in Blood by Automated count 0.04 10^3/uL 0.00 - 0.20 [facility] #IG 0.17 10^3/uL 0.00 - 0.10 [facility] #NRBC 0.00 10^3/uL 0.00 - 0.00 [facility] MANUAL DIFF NOT INDICATED [facility] RBC MORPH NOT INDICATED [facility] ID Date Data Source [id number] 03/19/2020 09:52:00 AM EDT [facility] ([facility] Name Value Range Interpretation Code Description Data Ximena rce(s) Supporting Document(s) Test Code Change Laboratory test result [facility] ([facility] SRC:SPUTUM ID Date Data Source [id number] 03/19/2020 09:52:00 AM EDT [facility] ([facility] Name Value Range Interpretation Code Description Data Ximena rce(s) Supporting Document(s) Microscopic observation [Identifier] in Sputum by Gram stain Laboratory test result [facility] ([facility] SRC:SPUTUM [facility] [...] [facility] SRC:SPUTUM ID Date Data Source [id number] 03/19/2020 09:52:00 AM EDT [facility] ([facility] Name Value Range Interpretation Code Description Data Ximena rce(s) Supporting Document(s) Bacteria identified in Unspecified specimen by Respira tory culture Laboratory test result [facility] ([facility] ID Date Data Source [id number] 03/19/2020 09:35:00 AM EDT [facility] ([facility] [...] completed Patient is a former smoker [facility] ([facility] ) Smoking 02/28/2021 12:00:00 AM EDT Patient is a former smoker completed Patient is a former smoker [facility] ([facility] Smoking 02/18/2021 12:00:00 AM EDT Former Smoker completed Former Smoker eCW1 ([facility]) Smoking 02/18/2021 12:00:00 AM EDT Former Smoker completed Former Smoker eCW1 ([facility]) Smoking 02/18/2021 12:00:00 AM EDT Former Smoker completed Former Smoker eCW1 ([facility]) Alcohol intake 01/29/2021 12:00:00 AM EDT Current non-d rama of alcohol (finding) completed Current non-drinker of alcohol (finding) [facility] Alcohol intake 12/26/2020 12:00:00 AM EDT Current non-d rama of alcohol (finding) completed Current non-drinker of alcohol (finding) [facility] Alcohol intake 12/23/2020 12:00:00 AM EDT Current non-d rama of alcohol (finding) completed Current non-drinker of alcohol (finding) [facility] Alcohol intake 12/10/2020 12:00:00 AM EDT Current non-d rama of alcohol (finding) completed Current non-drinker of alcohol (finding) [facility] Alcohol intake 11/27/2020 12:00:00 AM EDT Current non-d rama of alcohol (finding) completed Current non-drinker of alcohol (finding) [facility] Alcohol intake 11/25/2020 12:00:00 AM EDT Current non-d rama of alcohol (finding) completed Current non-drinker of alcohol (finding) [facility] Smoking 06/11/2020 12:00:00 AM EST Former Smoker completed Former Smoker eCW1 ([facility]) Smoking 06/11/2020 12:00:00 AM EST Former Smoker completed Former Smoker eCW1 ([facility]) Vital Signs ID Date Data Source UNK Name Value Range Interpretation Code Description Data Source(s) Body mass index (BMI) [Ratio] 22.5 kg/m2 22.5 k g/m2 MEDENT ([facility]) Leon body weight 154 [lb_av] 154 [lb_av] MEDEN T ([facility]) Body weight 67.246 kg 67.246 kg [facility] ([facility]) Body surface area Derived from formula 1.80 m2 1.80 m2 [facility] ([facility]) Systolic blood pressure 141 mm[Hg] 141 mm[Hg] M EDENT ([facility]) Diastolic blood pressure 85 mm[Hg] 85 mm[Hg] [facility] ([facility]) Heart rate 96 /min 96 /min [facility] ([facility]) Body temperature 98.6 [degF] 98.6 [degF] [facility] ([facility]) Body height 68 [in_i] 68 [in_i] [facility] ([facility]) 5'8" Body weight 148.25 [lb_av] 148.25 [lb_av] MEDEN T ([facility]) Body temperature 97.6 [degF] 97.6 [degF] MED[facility] ([facility] Respiratory rate 20 /min 20 /min [facility] ( [facility] Body weight 147.00 [lb_av] 147.00 [lb_av] MEDEN T ([facility] Leon body weight 154 [lb_av] 154 [lb_av] MEDEN T ([facility] Oxygen saturation in Arterial blood by [facility]ulse oximetry 97 % 97 % [facility] (On O2 @ 2 LPM [place]) Heart rate 105 /min 105 /min [facility] ([facility] Body height 68 [in_i] 68 [in_i] MED[facility] ([facility] 5'8" Body mass index (BMI) [Ratio] 22.3 kg/m2 22.3 k g/m2 [facility] ([facility] Systolic blood pressure 124 mm[Hg] 124 mm[Hg] M EDENT ([facility] Diastolic blood pressure 84 mm[Hg] 84 mm[Hg] [facility] ([facility] Leon body weight 154 [lb_av] 154 [lb_av] MEDEN T ([facility]) Body weight 66.679 kg 66.679 kg [facility] ([facility]) Body surface area Derived from formula 1.79 m2 1.79 m2 [facility] ([facility]) Systolic blood pressure 118 mm[Hg] 118 mm[Hg] [facility] Diastolic blood pressure 72 mm[Hg] 72 mm[Hg] [facility] ([facility]) Heart rate 88 /min 88 /min [facility] ([facility]) Oxygen saturation in Arterial blood by Pulse oximetry 91 % 91 % [facility] ([facility]) Room Air Body height 68 [in_i] 68 [in_i] [facility] ([facility]) 5'8" Body weight 147.00 [lb_av] 147.00 [lb_av] MEDEN T ([facility]) Body mass index (BMI) [Ratio] 22.3 kg/m2 22.3 k g/m2 [facility] ([facility]) Heart rate 85 /min 85 /min [facility] Body weight 150.00 [lb_av] 150.00 [lb_av] MED[facility] T ([facility]) Systolic blood pressure 137 mm[Hg] 137 mm[Hg] M EDENT ([facility]) Diastolic blood pressure 72 mm[Hg] 72 mm[Hg] [facility] ([facility]) Systolic blood pressure 130 mm[Hg] 130 mm[Hg] M EDENT ([facility] Body mass index (BMI) [Ratio] 23.0 kg/m2 23.0 k g/m2 [facility] ([facility] Body temperature 97.6 [degF] 97.6 [degF] [facility] ([facility] Heart rate 85 /min 85 /min [facility] ([facility] Respiratory rate 16 /min 16 /min [facility] ( [facility] Body height 68 [in_i] 68 [in_i] MED[facility] ([facility] 5'8" Body weight 151.00 [lb_av] 151.00 [lb_av] MEDEN T ([facility] Leon body weight 154 [lb_av] 154 [lb_av] MEDEN T ([facility] Diastolic blood pressure 80 mm[Hg] 80 mm[Hg] [facility] ([facility] Oxygen saturation in Arterial blood by Pulse oximetry 93 % 93 % [facility] ([facility] (Room Air) Body weight 143 [lb_av] 143 [lb_av] eCW1 (Count includes the [facility]) Body weight 64.86 kg 64.86 kg eCW1 ([facility]) Body height 69 [in_i] 69 [in_i] eCW1 ([facility]) Body mass index (BMI) [Ratio] 21.12 kg/m2 21.12 kg/m2 eCW1 ([facility]) Heart rate 84 /min 84 /min eCW1 ([facility]) Respiratory rate 23 /min 23 /min eCW1 ([facility]) Body temperature 96.2 [degF] 96.2 [degF] eCW1 ( [facility]) Systolic blood pressure 146 mm[Hg] 146 mm[Hg] e CW1 ([facility]) Diastolic blood pressure 84 mm[Hg] 84 mm[Hg] eCW1 ([facility]) Systolic blood pressure 106 mm[Hg] 106 mm[Hg] [facility] Body temperature 35.78 Yakov 35.78 Yakov [facility] Diastolic blood pressure 70 mm[Hg] 70 mm[Hg] [facility] Heart rate 80 /min 80 /min [facility] Respiratory rate 20 /min 20 /min [facility] Body height 172.7 cm 172.7 cm [facility] Body weight 66.225 kg 66.225 kg [facility] Body mass index (BMI) [Ratio] 22.20 kg/m2 22.20 kg/m2 [facility] Oxygen saturation in Arterial blood by Pulse oximetry 92 % 92 % [facility] Systolic blood pressure 123 mm[Hg] 123 mm[Hg] [facility] Diastolic blood pressure 69 mm[Hg] 69 mm[Hg] [facility] Heart rate 90 /min 90 /min [facility] Body temperature 37.22 Yakov 37.22 Yakov [facility] Respiratory rate 18 /min 18 /min [facility] Oxygen saturation in Arterial blood by Pulse oximetry 93 % 93 % [facility] Body weight 64.592 kg 64.592 kg [facility] Body mass index (BMI) [Ratio] 21.65 kg/m2 21.65 kg/m2 [facility] Body height 172.7 cm 172.7 cm [facility] Systolic blood pressure 98 mm[Hg] 98 mm[Hg] [facility] Diastolic blood pressure 62 mm[Hg] 62 mm[Hg] [facility] Body mass index (BMI) [Ratio] 20.98 kg/m2 20.98 kg/m2 [facility] Body weight 62.596 kg 62.596 kg [facility] Oxygen saturation in Arterial blood by Pulse oximetry 92 % 92 % [facility] Heart rate 88 /min 88 /min [facility] Body height 172.7 cm 172.7 cm [facility] Systolic blood pressure 118 mm[Hg] 118 mm[Hg] [facility] Diastolic blood pressure 70 mm[Hg] 70 mm[Hg] [facility] Heart rate 104 /min 104 /min [facility] Body temperature 36.28 Yakov 36.28 Yakov [facility] Respiratory rate 20 /min 20 /min [facility] Body weight 60.328 kg 60.328 kg [facility] Body mass index (BMI) [Ratio] 20.22 kg/m2 20.22 kg/m2 [facility] Oxygen saturation in Arterial blood by Pulse oximetry 94 % 94 % [facility] 2l Systolic blood pressure 107 mm[Hg] 107 mm[Hg] [facility] Diastolic blood pressure 72 mm[Hg] 72 mm[Hg] [facility] Heart rate 89 /min 89 /min [facility] Body temperature 36.61 Yakov 36.61 Yakov [facility] Respiratory rate 18 /min 18 /min [facility] Oxygen saturation in Arterial blood by Pulse oximetry 98 % 98 % [facility] Systolic blood pressure 122 mm[Hg] 122 mm[Hg] [facility] Diastolic blood pressure 70 mm[Hg] 70 mm[Hg] [facility] Heart rate 116 /min 116 /min [facility] Body temperature 36 Yakov 36 Yakov [facility] Body weight 62.596 kg 62.596 kg [facility] Body mass index (BMI) [Ratio] 20.98 kg/m2 20.98 kg/m2 [facility] Oxygen saturation in Arterial blood by Pulse oximetry 94 % 94 % [facility] 2l Body weight 139.00 [lb_av] 139.00 [lb_av] MEDEN T ([facility], ) Body mass index (BMI) [Ratio] 21.1 kg/m2 21.1 k g/m2 [facility] ([facility], ) Leon body weight 154 [lb_av] 154 [lb_av] MEDEN T ([facility], ) Body weight 63.050 kg 63.050 kg [facility] ([facility], ) Body surface area Derived from formula 1.75 m2 1.75 m2 [facility] ([facility], ) Systolic blood pressure 120 mm[Hg] 120 mm[Hg] M EDENT ([facility]) Body height 68 [in_i] 68 [in_i] [facility] ([facility]) 5'8" Diastolic blood pressure 70 mm[Hg] 70 mm[Hg] [facility] ([facility]) Heart rate 102 /min 102 /min [facility] ([facility]) Oxygen saturation in Arterial blood by Pulse oximetry 952 % 952 % [facility] ([facility]) Body temperature 97.4 [degF] 97.4 [degF] [facility] ([facility]) Oxygen saturation in Arterial blood by Pulse oximetry 952 % 952 % [facility] ([facility]) Body temperature 97.4 [degF] 97.4 [degF] [facility] ([facility]) Body height 68 [in_i] 68 [in_i] [facility] ([facility]) 5'8" Body weight 139.00 [lb_av] 139.00 [lb_av] MEDEN T ([facility]) Body mass index (BMI) [Ratio] 21.1 kg/m2 21.1 k g/m2 [facility] ([facility]) Leon body weight 154 [lb_av] 154 [lb_av] MEDEN T ([facility]) Body weight 63.050 kg 63.050 kg [facility] ([facility]) Body surface area Derived from formula 1.75 m2 1.75 m2 [facility] ([facility]) Body height 68 [in_i] 68 [in_i] [facility] ([facility]) 5'8" Body weight 145.00 [lb_av] 145.00 [lb_av] MEDEN T ([facility]) Body mass index (BMI) [Ratio] 22.0 kg/m2 22.0 k g/m2 [facility] ([facility]) Leon body weight 154 [lb_av] 154 [lb_av] MEDEN T ([facility]) Body weight 65.772 kg 65.772 kg [facility] ([facility]) Body surface area Derived from formula 1.78 m2 1.78 m2 [facility] ([facility]) Body height 68 [in_i] 68 [in_i] [facility] ([facility]) 5'8" Body weight 145.00 [lb_av] 145.00 [lb_av] MEDEN T ([facility]) Body mass index (BMI) [Ratio] 22.0 kg/m2 22.0 k g/m2 [facility] ([facility]) Leon body weight 154 [lb_av] 154 [lb_av] MEDEN T ([facility]) Body weight 65.772 kg 65.772 [facility] Body surface area Derived from formula 1.78 m2 1.78 m2 [facility] ([facility]) Body weight 144.00 [lb_av] 144.00 [lb_av] MEDEN [...] pressure 132 mm[Hg] 132 mm[Hg] M EDENT ([facility]) Diastolic blood pressure 86 mm[Hg] 86 mm[Hg] [facility] ([facility]) Body height 68 [in_i] 68 [in_i] [facility] ([facility]) 5'8" Body weight 145.50 [lb_av] 145.50 [lb_av] MEDEN T ([facility]) Body mass index (BMI) [Ratio] 22.1 kg/m2 22.1 k g/m2 [facility] ([facility]) Leon body weight 154 [lb_av] 154 [lb_av] MEDEN T ([facility]) Body weight 65.999 kg 65.999 kg [facility] ([facility]) Body surface area Derived from formula 1.79 m2 1.79 m2 [facility] ([facility]) Systolic blood pressure 128 mm[Hg] 128 mm[Hg] M EDENT ([facility]) Diastolic blood pressure 78 mm[Hg] 78 mm[Hg] [facility] ([facility]) Body height 68 [in_i] 68 [in_i] [facility] ([facility]) 5'8" Body weight 147.12 [lb_av] 147.12 [lb_av] MEDEN T ([facility]) Body mass index (BMI) [Ratio] 22.4 kg/m2 22.4 k g/m2 [facility] ([facility]) Leon body weight 154 [lb_av] 154 [lb_av] MEDEN T ([facility]) Body weight 66.736 kg 66.736 kg [facility] ([facility]) Body surface area Derived from formula 1.79 m2 1.79 m2 [facility] ([facility]) Leon body weight 154 [lb_av] 154 [lb_av] MEDEN T ([facility]) Body weight 67.586 kg 67.586 kg [facility] ([facility]) Body surface area Derived from formula 1.80 m2 1.80 m2 [facility] ([facility]) Body mass index (BMI) [Ratio] 22.7 kg/m2 22.7 k g/m2 [facility] ([facility]) Systolic blood pressure 110 mm[Hg] 110 mm[Hg] M EDENT ([facility]) Diastolic blood pressure 90 mm[Hg] 90 mm[Hg] [facility] ([facility]) Heart rate 88 /min 88 /min [facility] ([facility]) Oxygen saturation in Arterial blood by Pulse oximetry 962.5 % 962.5 % [facility], ) Body temperature 96.8 [degF] 96.8 [degF] [facility] ([facility]) Body height 68 [in_i] 68 [in_i] MED[facility] ([facility], ) 5'8" Body weight 149.00 [lb_av] 149.00 [lb_av] MEDEN T ([facility], ) Systolic blood pressure 128 mm[Hg] 128 mm[Hg] M EDENT ([facility] Diastolic blood pressure 86 mm[Hg] 86 mm[Hg] [facility] ([facility] Body temperature 98.1 [degF] 98.1 [degF] [facility] ([facility] Heart rate 96 /min 96 /min [facility] ([facility] Respiratory rate 20 /min 20 /min [facility] ( [facility] Body height 68 [in_i] 68 [in_i] [facility] ([facility] 5'8" Body weight 154.00 [lb_av] 154.00 [lb_av] MEDEN T ([facility] Leon body weight 154 [lb_av] 154 [lb_av] MEDEN T ([facility] Body mass index (BMI) [Ratio] 23.4 kg/m2 23.4 k g/m2 [facility] ([facility] Oxygen saturation in Arterial blood by Pulse oximetry 98 % 98 % [facility] ([facility] Body weight 156 [lb_av] 156 [lb_av] eCW1 (Count includes the [facility]) Body height 69 [in_i] 69 [in_i] eCW1 ([facility]) Body mass index (BMI) [Ratio] 23.03 kg/m2 23.03 kg/m2 eCW1 ([facility]) Heart rate 91 /min 91 /min eCW1 ([facility]) Respiratory rate 28 /min 28 /min eCW1 ([facility]) Body temperature 99.1 [degF] 99.1 [degF] eCW1 ( [facility]) Systolic blood pressure 142 mm[Hg] 142 mm[Hg] e CW1 ([facility]) Diastolic blood pressure 86 mm[Hg] 86 mm[Hg] eCW1 ([facility]) Body height 68 [in_i] 68 [in_i] MED[facility] ([facility] 5'8" Body weight 159.00 [lb_av] 159.00 [lb_av] MEDEN T ([facility] Leon body weight 154 [lb_av] 154 [lb_av] MEDEN T ([facility] Body mass index (BMI) [Ratio] 24.2 kg/m2 24.2 k g/m2 [facility] ([facility] Oxygen saturation in Arterial blood by Pulse oximetry 97 % 97 % [facility] ([facility] (On O2 @ 2 LPM NC) Systolic blood pressure 130 mm[Hg] 130 mm[Hg] M EDENT ([facility] Diastolic blood pressure 80 mm[Hg] 80 mm[Hg] [facility] ([facility] Body temperature 97.3 [degF] 97.3 [degF] [facility] ([facility] Heart rate 80 /min 80 /min [facility] ([facility] Respiratory rate 20 /min 20 /min [facility] ( [facility] Diastolic blood pressure 70 mm[Hg] 70 mm[Hg] [facility] ([facility], ) Systolic blood pressure 110 mm[Hg] 110 mm[Hg] M EDENT ([facility], ) Heart rate 95 /min 95 /min MED[facility] ([facility], ) Body weight 159.00 [lb_av] 159.00 [lb_av] MEDEN T ([facility], ) Body temperature 97.0 [degF] 97.0 [degF] [facility] ([facility], ) Body height 68 [in_i] 68 [in_i] [facility] ([facility]) 5'8" Leon body weight 154 [lb_av] 154 [lb_av] MEDEN T ([facility]) Body mass index (BMI) [Ratio] 24.2 kg/m2 24.2 k g/m2 [facility] ([facility]) Body weight 72.122 kg 72.122 kg [facility] ([facility]) Body surface area Derived from formula 1.85 m2 1.85 m2 [facility] ([facility]) Oxygen saturation in Arterial blood by Pulse oximetry 972.5 % 972.5 % [facility] ([facility]) Patient Treatment Plan of Care Planned Activity Planned Date Details Description Data Source (s) Phenazopyridine hydrochloride 100 MG Oral Tablet [Pyri dium] 03/27/2021 12:00:00 AM EDT eCW ([facility]) Tamsulosin hydrochloride 0.4 MG Oral Capsule 02/21/2021 12:00:00 AM EDT eCW1 ([facility]) Tamsulosin hydrochloride 0.4 MG Oral Capsule 02/21/2021 12:00:00 AM EDT eCW1 ([facility]) Tamsulosin hydrochloride 0.4 MG Oral Capsule 02/21/2021 12:00:00 AM EDT eCW1 ([facility]) Tamsulosin hydrochloride 0.4 MG Oral Capsule 02/18/2021 12:00:00 AM EDT eCW1 ([facility]) Tamsulosin hydrochloride 0.4 MG Oral Capsule 02/18/2021 12:00:00 AM EDT eCW1 ([facility]) Tamsulosin hydrochloride 0.4 MG Oral Capsule 02/18/2021 12:00:00 AM EDT eCW1 ([facility]) Levothyroxine Sodium 0.05 MG Oral Tablet 01/10/2021 12:00:00 AM EDT [facility] glimepiride 2 MG Oral Tablet 01/02/2021 12:00:00 AM EDT [facility] Bisacodyl 10 MG Rectal Suppository 12/28/2020 09:00:00 AM EDT [facility] Sulfamethoxazole 800 MG / Trimethoprim 160 MG Oral Tab let 12/27/2020 09:00:00 AM EDT [facility] POLYETHYLENE GLYCOL 3350 142 MG/ML Oral Solution 12/27/2020 07:00:0 0 AM EDT [facility] clopidogrel 75 MG Oral Tablet 12/26/2020 12:00:00 AM EDT [facility] normal saline flush 0.9 % injection 3 mL 12/25/2020 09:00:00 PM EDT [facility] ondansetron (ZOFRAN) injection 4 mg 12/25/2020 04:44:33 PM EDT [facility] acetaminophen (TYLENOL) 325 MG tablet 650 mg 12/25/2020 04:44:33 PM EDT [facility] 2 ML Metoclopramide 5 MG/ML Prefilled Syringe 12/25/2020 04:44:32 P M EDT [facility] Nitroglycerin 0.4 MG Sublingual Tablet 12/25/2020 02:38:07 PM EDT [facility] sodium chloride 0.9% (NS) infusion 12/25/2020 11:00:00 AM EDT [facility] clopidogrel 75 MG Oral Tablet 12/10/2020 12:00:00 AM EDT [facility] Furosemide 20 MG Oral Tablet 12/10/2020 12:00:00 AM EDT [facility] normal saline flush 0.9 % injection 3 mL 11/27/2020 02:00:00 PM EDT [facility] Magnesium Chloride 0.66532 MEQ/ML / Pota ssium Chloride 0.0497 MEQ/ML / Sodium Acetate 0.0163 MEQ/ML / Sodium Chloride 0.0899 MEQ/ML / Sodium gluconate 5.02 MG/ML Injectable Solution [Normosol-R] 11/27/2020 01:00:00 PM EDT [facility] ondansetron (ZOFRAN) injection 4 mg 11/27/2020 12:19:32 PM EDT [facility] Hydralazine Hydrochloride 20 MG/ML Injectable Solution 11/27/2020 12:19:32 PM EDT [facility] Albuterol 0.83 MG/ML Inhalant Solution 11/27/2020 12:19:32 PM EDT [facility] Nitroglycerin 0.4 MG Sublingual Tablet 11/25/2020 12:00:00 AM EDT [facility] clopidogrel 75 MG Oral Tablet 12/04/2019 12:00:00 AM EDT [facility] Nitroglycerin 0.4 MG Sublingual Tablet 11/22/2018 12:00:00 AM EDT [facility] gabapentin 100 MG Oral Capsule 10/27/2017 12:00:00 AM EDT [facility] 24 HR Diltiazem Hydrochloride 240 MG Extended Release Oral Capsule 09/28/2017 12:00:00 AM EDT [facility] Sulfamethoxazole 800 MG / Trimethoprim 160 MG Oral Tab let 08/27/2016 12:00:00 AM EDT [facility] Tiotropium [place] Monohydrate (SPIRIVA RESPIMAT IN) [facility] empagliflozin 25 MG Oral Tablet [facility] ibandronic acid 150 MG Oral Tablet [facility] 30 ACTUAT aclidinium bromide 0.4 MG/ACTUAT Dry Powder Inhaler [facility] formoterol fumarate 0.01 MG/ML Inhalant Solution [facility] carvedilol 6.25 MG Oral Tablet [facility] torsemide 20 MG Oral Tablet [facility] Ranitidine 300 MG Oral Tablet [facility] Clotrimazole 10 MG Oral Lozenge [facility] Immune Globulin, Human, (HIZENTRA) 10 GM/50ML SOLN [facility] glimepiride 4 MG Oral Tablet [facility] Calcium Citrate 950 MG Oral Tablet [facility] metaxalone 800 MG Oral Tablet [facility] 12 HR Guaifenesin 600 MG Extended Release Oral Tablet [facility] pitavastatin 2 MG Oral Tablet [facility]
[2021-05-06] MEDS ORDERED: FUROSEMIDE 40MG/4ML VIAL (J1940) IV ONE (12:35)
[2021-05-06] MEDS: dexameTHASONE 4 MG/ML 1ML VIAL (J1100 PER 1MG) IV SCH (12:43)
[2021-05-06] MEDS: ENOXAPARIN 40MG/0.4ML SYRINGE (J1650 PER 10MG) SC SCH (12:43)
[2021-05-06] MEDS ORDERED: GLUCAGON INJ 1MG VIAL SC PRN (13:05)
[2021-05-06] MEDS ORDERED: GLUCOSE 4GM CHEW TABLET PO PRN (13:05)
[2021-05-06] MEDS ORDERED: DEXTROSE 50% 50 ML SYRINGE IV PRN (13:05)
--- NOTE | 2021-05-06 13:16 | HPEPDOC ---
General Date of Admission May 06, 2021 at 10:49 Date of Service: May 06, 2021 Chief Complaint The patient is a 70-year-old male admitted with a reason for visit of Covid- 19,Pneumonia. History of Present Illness 70-year-old male with past medical history of bronchiectasis, COPD steroid- dependent, chronic hypoxic respiratory failure on 2-1/2 L of oxygen, common variable immunodeficiency, aortic stenosis status post TAVR in December 2020, systolic congestive heart failure with EF of 35 to 40%, was recently diagnosed with Covid pneumonia on 05/01 2021. He was admitted to the hospital from 05/01-05 03 2021 without any worsening of his oxygen requirement and was subsequently discharged home with the oral prednisone taper, and to resume his routine cycle of antibiotics with cefdinir followed by ciprofloxacin as per his schedule for bronchiectasis treatment. He comes back today as his breathing has again worsened since yesterday. Even going from bed to chair has been making him very short of breath and has been panting and his oxygen saturation has been dropping to 85% with his home 2-1/2 L. On arrival to the ED he was initially requiring about 3-1/2 L of oxygen. Chest x-ray showed more prominent infiltrates at the right lower lobe compared to his x-ray on 05/01/2021. He is being admitted for right lower lobe pneumonia superadded on Covid infection. Home Medications Scheduled Aclidinium [place] (Tudorza Pressair) 400 Mcg Aer.pow.ba, 1 PUFF INH BID, (Reported) Albuterol Sulf (Albuterol Sulfate) 2.5 Mg/3 Ml Nebu, 2.5 MG INH QID, (Reported) MIXES WITH IPRATROPIUM Ascorbic Acid (Ascorbic Acid) 500 Mg Tablet, 1,000 MG PO DAILY, (Reported) Brimonidine Tartrate (Alphagan P) 0.1% 5ML Drops, 1 DROP OU BID, (Reported) USES MORNING/DINNERTIME Budesonide (Pulmicort) 0.5 Mg/2 Ml Mely, 0.5 MG INH BID, (Reported) USED WITH PERFOROMIST, USES 30MIN AFTER ALBUTEROL/IPRATROPIUM NEB Calcium Citrate/Vitamin D3 (Calcium Citrate-Vit D3 Caplet) 1 Tab Tab, 1 TAB PO BID, (Reported) Cefdinir (Cefdinir) 300 Mg Capsule, 300 MG PO BID, (Reported) STARTED 04/28 FOR 2 WEEKS, THEN 2 WEEK BREAK THEN CONTINUE WITH CIPRO Cholecalciferol (Vitamin D3) (Vitamin D3) 1,000 Unit Tablet, 2,000 UNITS PO DAILY, (Reported) Ciprofloxacin HCl (Cipro) 500 Mg Tablet, 500 MG PO ASDIRECTED, (Reported) TAKES TWICE DAILY FOR 14 DAYS, START ON 06/02 Citalopram Hydrobromide (Celexa) 20 Mg Tablet, 20 MG PO QHS, (Reported) Clopidogrel Bisulfate (Plavix) 75 Mg Tab, 75 MG PO QHS, (Reported) Ferrous Sulfate (Ferrous Sulfate) 325 Mg Tab, 325 MG PO DAILY, (Reported) Fluconazole (Fluconazole) 200 Mg Tablet, 200 MG PO QWEEK, (Reported) FRIDAYS Folic Acid (Folic Acid) 1 Mg Tab, 1 MG PO DAILY, (Reported) Formoterol Fumarate (Perforomist) 20 Mcg/2 Ml Neb, 20 MCG INH BID, (Reported) USED WITH PULMICORT, USES 30MIN AFTER ALBUTEROL/IPRATROPIUM NEB Glimepiride (Glimepiride) 4 Mg Tablet, 4 MG PO DAILY, (Reported) Guaifenesin (Mucinex) 600 Mg Tab.er.12h, 600 MG PO BID, (Reported) Ibandronate Sodium (Boniva) 150 Mg Tablet, 150 MG PO QMONTH, (Reported) TAKES ON OF EACH MONTH Immun Glob G(IgG)/Pro/Iga 0-50 (Hizentra 1 Gram/5 ml Vial) 1 Gm/5 Ml Vial, 14 MG SC QWEEK, (Reported) SATURDAYS Ipratropium [place] (Ipratropium [place]) 0.5 Mg/2.5 Ml Soln, 0.5 MG INH QID, (Reported) MIXES WITH ALBUTEROL L.acidoph/L.bulg/B.bif/S.therm (Bacid Caplet) 1 Each Tablet, 1 TAB PO DAILY, (Reported) Levothyroxine Sodium (Levothyroxine Sodium) 50 Mcg Tablet, 50 MCG PO QHS, (Reported) Metformin HCl (Metformin HCl) 500 Mg Tab, 500 MG PO TID, (Reported) Montelukast Sodium (Singulair) 10 Mg Tab, 10 MG PO QHS, (Reported) Omeprazole (Omeprazole) 40 Mg Cap, 40 MG PO DAILY, (Reported) Pitavastatin Calcium (Livalo) 2 Mg Tablet, 2 MG PO QHS, (Reported) Prednisone (Prednisone) 10 Mg Tablet, 10 MG PO ASDIRECTED Take 4 tabs daily x3 days, then take 3 tabs x4 days, then continue home 20 mg dose Sulfamethoxazole/Trimethoprim (Bactrim Ds Tablet) 1 Each Tablet, 1 TAB PO 3XW, ( Reported) WED/WED/WED Travoprost (Travatan Z) 50 Drop/2.5 Ml Soln, 1 DROP OU QHS, (Reported) Vitamin B Complex (Vitamin B Complex) 1 Each Tablet, 1 TAB PO DAILY, (Reported) Zinc (Zinc) 50 Mg Tablet, 50 MG PO DAILY, (Reported) dilTIAZem HCl (Diltiazem 24Hr Cd) 240 Mg Cap.er.24h, 240 MG PO DAILY, (Reported) Scheduled PRN Nitroglycerin (Nitrostat) 0.4 Mg Subl, 0.4 MG SL NITRO PRN for CHEST PAIN, (Reported) Allergies Coded Allergies: fexofenadine (Verified Allergy, Severe, anaphylaxis, 09/05/19) quinidine (Verified Allergy, Intermediate, HIVES, 09/05/19) metoprolol (Verified Adverse Reaction, Intermediate, d/t lung condition, 09/05/19) pravastatin (Verified Adverse Reaction, Intermediate, MUSCLE WEAKNESS, 09/05/19) aspirin (Verified Adverse Reaction, Mild, RECTAL BLEEDING, 09/05/19) furosemide (Verified Adverse Reaction, Mild, dizziness, 09/05/19) levofloxacin (Verified Adverse Reaction, Mild, MUSCLE CRAMPING, 09/05/19) Past Medical History Medical History Aortic valve replaced by bovine valve for aortic stenosis in 2009. Aortic restenosis and TAVR in December 2020. Systolic CHF with EF of 35% to 40% COPD / chronic hypoxic O2 respiratory failure (2L) / steroid dependence on Bactrim for PJP prophylaxis on wed, wed, Wednesday Bronchiectasis on chronic antibiotic cycles of 2 week on and 2 weeks off alternating between cefdinir/ ciprofloxacin Common variable immunodeficiency (CVID) Chronic CAD w stents x 13 / chronically elevated troponin PAD s/p left femoral endarterectomy and right stenting in 2018 NIDDM Glaucoma Hearing Loss MYKEL on CPAP Essential HTN Hypothyroid Depression Chronic thoracic vertebral body compression fracture / Osteoporosis Iron deficiency Vit B12 deficiency Oral thrush Surgical History Multiple aortic valve replacements with most recent being in December 2020. Eyelid procedure. Left femoral endarterectomy with patch repair March 2016. Tongue biopsy Family History Significant Family History: Heart disease (Father from heart attack) Social History * Smoker: former Smoker Alcohol: Denies Drugs: denies A-FIB/CHADSVASC A-FIB History Current/History of A-Fib/PAF?: No Review of Systems Constitutional: Reports: Weakness, Fatigue Eyes: Denies: Pain, Vision change ENT: Denies: Head Aches, Ear Pain, Dysphagia Skin: Denies: Rash, Lesions, Breakdown Pulmonary: Reports: Dyspnea, Cough, Other Symptoms (Chest tightness) Cardiovascular: Reports: Palpitations, Orthopnea Gastrointestinal: Denies: Nausea, Vomiting, Abdominal Pain, Diarrhea Genitourinary: Denies: Dysuria, Frequency, Incontinence, Retention Hematologic: Denies: Bruising, Bleeding Excessively Musculoskeletal: Denies: Neck Pain, Back Pain, Joint Pain, Muscle Pain, Spasms Neurological: Denies: Weakness, Numbness, Change in speech, Confusion Physical Examination General Exam: Positive: Alert, Cooperative, No Acute Distress Eye Exam: Positive: Conjunctiva & lids normal, EOMI ENT Exam: Positive: Atraumatic, Mucous membr. moist/pink, Pharynx Normal Neck Exam: Positive: Supple; Negative: JVD, thyromegaly Chest Exam: Positive: Diminished; Negative: Rales, Rhonchi, Wheezing Heart Exam: Positive: Rate Normal, Regular Rhythm, Normal S1, Normal S2; Negative: Murmurs, Rubs Abdomen Exam: Positive: Normal bowel sounds, Soft; Negative: Tenderness Extremity Exam: Positive: Normal pulses; Negative: Clubbing, Cyanosis, Edema Neuro Exam: Positive: Normal Speech, Strength at 5/5 X4 ext, Normal Tone Psych Exam: Positive: Memory Intact, Oriented x 3 Vital Signs Vital Signs Date Time Temp Pulse Resp B/P (MAP) Pulse Ox O2 Delivery O2 Flow Rate FiO2 05/06/21 11:00 84 118/67 (84) 93 05/06/21 09:30 Nasal Cannula 2.5 05/06/21 08:54 92 05/06/21 08:53 99.2 05/06/21 08:23 28 Laboratory Data Labs 24H Laboratory Tests 2 05/06/21 09:07: Immature Granulocyte % (Auto) 0.9, Neutrophils (%) (Auto) 88.8H, Lymphocytes (%) (Auto) 6.3L, Monocytes (%) (Auto) 3.8, Eosinophils (%) (Auto) 0.0, Basophils (%) (Auto) 0.2, Neutrophils # (Auto) 9.8H, Lymphocytes # (Auto) 0.7L, Monocytes # (Auto) 0.4, Eosinophils # (Auto) 0.0, Basophils # (Auto) 0.0, Nucleated Red Blood Cells % (auto) 0.0, Anion Gap 7L, Glomerular Filtration Rate > 60.0, Lactic Acid Level 1.9, Calcium Level 10.0, TV-Nde-D-Type Natriuretic Peptide 989H 05/06/21 09:08: Blood Gas Bicarbonate Standard 25.0, Arterial Blood pH 7.469H, Arterial Blood Partial Pressure CO2 33.4L, Arterial Blood Partial Pressure O2 68.6L, Arterial Blood Total CO2 24.7, Arterial Blood HCO3 23.7, Arterial Blood Base Excess 0.7, Arterial Blood Oxygen Saturation 94.8L CBC/BMP Laboratory Tests 05/06/21 09:07 Microbiology Microbiology 05/06/21 Blood Culture, Received Pending 05/06/21 Blood Culture, Received Pending Assessment/Plan 70-year-old male with past medical history of bronchiectasis, COPD steroid- dependent, chronic hypoxic respiratory failure on 2-1/2 L of oxygen, common variable immunodeficiency, aortic stenosis status post TAVR in December 2020, systolic congestive heart failure with EF of 35 to 40%,, hypothyroid was recently diagnosed with Covid pneumonia on 05/01 2021. He was admitted to the hospital from 05/01-05 03 2021 without any worsening of his oxygen requirement and was subsequently discharged home with the oral prednisone taper, and to resume his routine cycle of antibiotics with cefdinir followed by ciprofloxacin as per his schedule for bronchiectasis treatment. He comes back today as his breathing has again worsened since yesterday. Even going from bed to chair has been making him very short of breath and has been panting and his oxygen saturation has been dropping to 85% with his home 2-1/2 L. On arrival to the ED he was initially requiring about 3-1/2 L of oxygen. Chest x-ray showed more prominent infiltrates at the right lower lobe compared to his x-ray on 05/01/2021. He is being admitted for right lower lobe pneumonia superadded on COVID infection. Right lower lobe pneumonia Likely secondary bacterial pneumonia We will check procalcitonin Will cover with Zosyn for now Covid infection Increased shortness of breath with hypoxia on ambulation We will check Covid labs Continue on steroids, At present his oxygen requirement is at baseline at rest Will give remdesivir COPD with chronic hypoxic respiratory failure We will continue with DuoNebs, budesonide, Spiriva, formoterol Bronchiectasis We will continue with zosyn in hospital continue with bactrim ds. History of systolic CHF BNP slightly elevated from baseline though clinically does not appear to be fluid overloaded We will give 1 dose of Lasix Hypertension Continue diltiazem Sleep apnea on CPAP. Patient may use his home CPAP. Type 2 diabetes mellitus. Hold Metformin, Continue glimepiride, and start sliding scale with hypoglycemic protocol. Hypothyroid Continue Synthroid Glaucoma Continue home eyedrops Peripheral arterial disease Continue Plavix Coronary artery disease status post stenting Continue Plavix. Will resume pitavastatin on discharge Plan / VTE VTE Prophylaxis Ordered?: Yes Yakelin Parker MD May 06, 2021 12:56
[2021-05-06] MEDS ORDERED: IPRATROPIUM 0.5MG/ALBUTEROL 2.5MG INH SOL UD 3ML (DUONEB) NEB SCH (14:00)
[2021-05-06] MEDS: PIPERACILLIN/TAZOBACTAM SOD 3.375 GM in D5W MINI-BAG PLUS 50 ML IV SCH ×2 (15:16→22:43)
[2021-05-06 15:30] VITALS: BP 109/69
[2021-05-06] MEDS ORDERED: SODIUM CHLORIDE 0.9% INJ 10 ML SYR IV ONE (16:00)
[2021-05-06] MEDS ORDERED: REMDESIVIR 200 MG in NS 250 ML IV ONE (16:00)
[2021-05-06] MEDS: IPRATROPIUM 0.5MG/ALBUTEROL 2.5MG INH SOL UD 3ML (DUONEB) NEB SCH ×3 (16:30→23:16)
[2021-05-06] MEDS: HumaLOG INSULIN (NovoLOG) PER UNIT SC SCH ×2 (17:30→21:00)
[2021-05-06 20:00] VITALS: O2SAT 94
--- NOTE | 2021-05-06 20:20 | ECGEPIP ---
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
[2021-05-06] MEDS: SYMBICORT 160/4.5MCG INHALER 6GM INH SCH (20:36)
[2021-05-06 22:00] VITALS: BP 105/76
[2021-05-06] MEDS: LATANOPROST 0.005% OPHTH SOLN 2.5 ML OU SCH (22:42)
[2021-05-06] MEDS: CitaloPRAM (CeleXA) 20 MG TAB PO SCH (22:42)
[2021-05-06] MEDS: BRIMONIDINE 0.1% OPHTH SOLN 5 ML OU SCH (22:42)
[2021-05-06] MEDS: CLOPIDOGREL 75 MG TAB PO SCH (22:42)
[2021-05-06] MEDS: guaiFENesin ER 600 MG TAB PO SCH (22:42)
[2021-05-06] MEDS: LEVOTHYROXINE 50MCG TABLET (0.05MG) PO SCH (22:42)
[2021-05-06] MEDS: MONTELUKAST 10 MG TAB PO SCH (22:43)
[2021-05-07] VITALS: O2SAT 94
[2021-05-07] MEDS: IPRATROPIUM 0.5MG/ALBUTEROL 2.5MG INH SOL UD 3ML (DUONEB) NEB SCH ×6 (02:58→23:32)
[2021-05-07 04:00] VITALS: O2SAT 94
[2021-05-07] MEDS: PIPERACILLIN/TAZOBACTAM SOD 3.375 GM in D5W MINI-BAG PLUS 50 ML IV SCH ×4 (04:12→21:27)
[2021-05-07 05:28] VITALS: BP 114/79
[2021-05-07 07:23] LABS: BASO % 0.1 % (0.0-1.0); HEMATOCRIT 35.5 % (42.0-52.0); HEMOGLOBIN 12.4 g/dl (13.5-17.5); LYMPH # 0.4 10^3/uL (1.5-5.0); LYMPH % 4.2 % (24.0-44.0); MEAN CORPUSCULAR HEMOGLOBIN 31.8 pg (27.0-33.0); MEAN CORPUSCULAR HGB CONC 34.9 g/dl (32.0-36.5); MONO # 0.4 10^3/uL (0.0-0.8); MONO % 4.3 % (2.0-8.0); NEUTROPHILS # 8.7 10^3/uL (1.5-8.5); NEUTROPHILS % 90.4 % (36.0-66.0); PLATELET COUNT, AUTOMATED 221 10^3/uL (150-450); WHITE BLOOD COUNT 9.6 10^3/uL (4.0-10.0)
[2021-05-07] MEDS: SYMBICORT 160/4.5MCG INHALER 6GM INH SCH ×2 (07:28→19:12)
[2021-05-07 07:44] LABS: ALT/SGPT 40 U/L (12-78); BILIRUBIN,DIRECT < 0.1 MG/DL (0.0-0.2); BILIRUBIN,TOTAL 0.3 MG/DL (0.2-1.0); BLOOD UREA NITROGEN 20 MG/DL (7-18); CALCIUM LEVEL 8.8 MG/DL (8.8-10.2); CARBON DIOXIDE LEVEL 25 MEQ/L (21-32); CHLORIDE LEVEL 97 MEQ/L (98-107); CREATININE FOR GFR 0.81 MG/DL (0.70-1.30); GLOMERULAR FILTRATION RATE > 60.0 (>49); GLUCOSE, FASTING 267 MG/DL (70-100); POTASSIUM SERUM 3.6 MEQ/L (3.5-5.1); SODIUM LEVEL 133 MEQ/L (136-145); TOTAL PROTEIN 6.7 GM/DL (6.4-8.2)
[2021-05-07] MEDS: LACTOBACILLUS ACIDOPHILUS CAP (BACID) PO SCH (09:09)
[2021-05-07] MEDS: HumaLOG INSULIN (NovoLOG) PER UNIT SC SCH ×4 (09:09→21:24)
[2021-05-07] MEDS: dexameTHASONE 4 MG/ML 1ML VIAL (J1100 PER 1MG) IV SCH (09:09)
[2021-05-07] MEDS: ENOXAPARIN 40MG/0.4ML SYRINGE (J1650 PER 10MG) SC SCH (09:09)
[2021-05-07] MEDS: GLIMEPIRIDE 2 MG TAB PO SCH (09:10)
[2021-05-07] MEDS: diltiaZEM **CD** 180 MG CAP PO SCH (09:10)
[2021-05-07] MEDS: OMEPRAZOLE 20 MG CAP PO SCH (09:10)
[2021-05-07] MEDS: guaiFENesin ER 600 MG TAB PO SCH ×2 (09:10→21:25)
[2021-05-07] MEDS: BRIMONIDINE 0.1% OPHTH SOLN 5 ML OU SCH ×2 (09:11→21:23)
[2021-05-07] MEDS: BACTRIM 160MG/800MG DS TAB PO SCH (09:22)
[2021-05-07] MEDS: TIOTROPIUM INHALER/CAPSULE (SPIRIVA) INH SCH (11:30)
--- NOTE | 2021-05-07 12:44 | IPNPDOC ---
Subjective Date Seen The patient was seen on 05/07/21. Subjective Chief Complaint/HPI No worsening in breathing status overnight. oxygen requirement remains at 3 L at rest. Sugars elevated due to steroids. No fever or chills Objective Physical Examination General Exam: Positive: Alert, Cooperative, No Acute Distress Eye Exam: Positive: Conjunctiva & lids normal, EOMI ENT Exam: Positive: Atraumatic, Mucous membr. moist/pink, Pharynx Normal Neck Exam: Positive: Supple; Negative: JVD, thyromegaly Chest Exam: Positive: Diminished; Negative: Rales, Rhonchi, Wheezing Heart Exam: Positive: Rate Normal, Regular Rhythm, Normal S1, Normal S2; Negative: Murmurs, Rubs Abdomen Exam: Positive: Normal bowel sounds, Soft; Negative: Tenderness Extremity Exam: Positive: Normal pulses; Negative: Clubbing, Cyanosis, Edema Neuro Exam: Positive: Normal Speech, Strength at 5/5 X4 ext, Normal Tone Psych Exam: Positive: Memory Intact, Oriented x 3 Assessment /Plan Assessment 70-year-old male with past medical history of bronchiectasis, COPD steroid- dependent, chronic hypoxic respiratory failure on 2-1/2 L of oxygen, common variable immunodeficiency, aortic stenosis status post TAVR in December 2020, systolic congestive heart failure with EF of 35 to 40%,, hypothyroid was recently diagnosed with Covid pneumonia on 05/01 2021. He was admitted to the hospital from 05/01-05 03 2021 without any worsening of his oxygen requirement and was subsequently discharged home with the oral prednisone taper, and to resume his routine cycle of antibiotics with cefdinir followed by ciprofloxacin as per his schedule for bronchiectasis treatment. He comes back today as his breathing has again worsened since yesterday. Even going from bed to chair has been making him very short of breath and has been panting and his oxygen saturation has been dropping to 85% with his home 2-1/2 L. On arrival to the ED he was initially requiring about 3-1/2 L of oxygen. Chest x-ray showed more prominent infiltrates at the right lower lobe compared to his x-ray on . He is being admitted for right lower lobe pneumonia superadded on COVID infection. Right lower lobe pneumonia Likely secondary bacterial pneumonia Procalcitonin elevated 0.9 Continues to Covid infection Increased shortness of breath with hypoxia on ambulation Continue on steroids, remdesivir At present his oxygen requirement is slightly up from baseline of 2.5 to 3 L COPD with chronic hypoxic respiratory failure We will continue with DuoNebs, budesonide, Spiriva, formoterol Bronchiectasis We will continue with zosyn in hospital continue with bactrim ds. And fluconazole weekly History of systolic CHF BNP slightly elevated from baseline though clinically does not appear to be fluid overloaded continue torsemide daily Hypertension Continue diltiazem at lower dose Sleep apnea on CPAP. Patient may use his home CPAP. Type 2 diabetes mellitus. Hold Metformin, Continue glimepiride, and start sliding scale with hypoglycemic protocol. Hypothyroid Continue Synthroid Glaucoma Continue home eyedrops Peripheral arterial disease Continue Plavix Coronary artery disease status post stenting Continue Plavix. Will resume pitavastatin on discharge Plan/VTE VTE Prophylaxis Ordered?: Yes VS, I&O, 24H, Fishbone Vital Signs/I&O Vital Signs Date Time Temp Pulse Resp B/P (MAP) Pulse Ox O2 Delivery O2 Flow Rate FiO2 05/07/21 09:10 91 114/79 05/07/21 05:28 98.1 19 Nasal Cannula 3.0 05/07/21 04:00 94 05/06/21 08:54 92 I&O- Last 24 Hours up to 6 AM 05/07/21 06:00 Intake Total 1695 ml Output Total 2200 ml Balance -505 ml Laboratory Data 24H LABS Laboratory Tests 2 05/06/21 16:50: Bedside Glucose (Misc Panel) 103 05/06/21 19:47: Bedside Glucose (Misc Panel) 71L 05/07/21 05:07: Bedside Glucose (Misc Panel) 292H 05/07/21 06:43: Immature Granulocyte % (Auto) 1.0, Neutrophils (%) (Auto) 90.4H, Lymphocytes (%) (Auto) 4.2L, Monocytes (%) (Auto) 4.3, Eosinophils (%) (Auto) 0.0, Basophils (%) (Auto) 0.1, Neutrophils # (Auto) 8.7H, Lymphocytes # (Auto) 0.4L, Monocytes # (Auto) 0.4, Eosinophils # (Auto) 0.0, Basophils # (Auto) 0.0, Nucleated Red Blood Cells % (auto) 0.0, Anion Gap 11, Glomerular Filtration Rate > 60.0, Calcium Level 8.8, Magnesium Level 2.0, Total Bilirubin 0.3, Direct Bilirubin < 0.1, Aspartate Amino Transf (AST/SGOT) 24, Alanine Aminotransferase (ALT/SGPT) 40, Alkaline Phosphatase 74, Total Protein 6.7, Albumin 2.0L, Albumin/Globulin Ratio 0.4 05/07/21 11:09: Bedside Glucose (Misc Panel) 329H CBC/BMP Laboratory Tests 05/07/21 06:43 Microbiology Microbiology 05/06/21 Blood Culture - Preliminary, Resulted No growth after 24 hours . All specim... 05/06/21 Blood Culture - Preliminary, Resulted No growth after 24 hours . All specim... Yakelin Parker MD May 07, 2021 12:44
[2021-05-07] MEDS: LEVEMIR (INSULIN DETEMIR) 1 UNITS/0.01ML SC SCH (13:56)
[2021-05-07 14:00] VITALS: BP 130/59
[2021-05-07] MEDS: REMDESIVIR 100 MG in NS 250 ML IV SCH (17:42)
[2021-05-07] MEDS: SODIUM CHLORIDE 0.9% INJ 10 ML SYR IV SCH (17:43)
[2021-05-07 20:00] VITALS: BP 126/60; O2SAT 93
[2021-05-07] MEDS: LATANOPROST 0.005% OPHTH SOLN 2.5 ML OU SCH (21:24)
[2021-05-07] MEDS: CitaloPRAM (CeleXA) 20 MG TAB PO SCH (21:25)
[2021-05-07] MEDS: MONTELUKAST 10 MG TAB PO SCH (21:25)
[2021-05-07] MEDS: LEVOTHYROXINE 50MCG TABLET (0.05MG) PO SCH (21:25)
[2021-05-07] MEDS: CLOPIDOGREL 75 MG TAB PO SCH (21:25)
[2021-05-08] VITALS: O2SAT 97
[2021-05-08] MEDS: PIPERACILLIN/TAZOBACTAM SOD 3.375 GM in D5W MINI-BAG PLUS 50 ML IV SCH ×4 (02:27→20:20)
[2021-05-08] MEDS: IPRATROPIUM 0.5MG/ALBUTEROL 2.5MG INH SOL UD 3ML (DUONEB) NEB SCH ×5 (03:33→17:52)
[2021-05-08 04:00] VITALS: BP 119/67; O2SAT 92
[2021-05-08] MEDS: SYMBICORT 160/4.5MCG INHALER 6GM INH SCH ×2 (07:29→17:52)
[2021-05-08] MEDS: TIOTROPIUM INHALER/CAPSULE (SPIRIVA) INH SCH (07:29)
[2021-05-08 07:52] LABS: HEMATOCRIT 32.8 % (42.0-52.0); HEMOGLOBIN 11.3 g/dl (13.5-17.5); MEAN CORPUSCULAR HEMOGLOBIN 31.3 pg (27.0-33.0); MEAN CORPUSCULAR HGB CONC 34.5 g/dl (32.0-36.5); MEAN CORPUSCULAR VOLUME 90.9 fl (80.0-96.0); PLATELET COUNT, AUTOMATED 236 10^3/uL (150-450); RED BLOOD COUNT 3.61 10^6/uL (4.30-6.10); WHITE BLOOD COUNT 13.6 10^3/uL (4.0-10.0)
[2021-05-08 07:57] LABS: INR 1.12; PROTHROMBIN TIME 14.8 SECONDS (12.7-14.5)
[2021-05-08 07:58] LABS: PARTIAL THROMBOPLASTIN TIME 35.7 SECONDS (25.9-37.0)
[2021-05-08 08:21] LABS: ALT/SGPT 65 U/L (12-78); BILIRUBIN,DIRECT 0.1 MG/DL (0.0-0.2); BILIRUBIN,TOTAL 0.3 MG/DL (0.2-1.0); BLOOD UREA NITROGEN 20 MG/DL (7-18); CALCIUM LEVEL 8.7 MG/DL (8.8-10.2); CARBON DIOXIDE LEVEL 25 MEQ/L (21-32); CHLORIDE LEVEL 99 MEQ/L (98-107); CREATININE FOR GFR 0.71 MG/DL (0.70-1.30); FERRITIN 348 NG/ML (26-388); GLOMERULAR FILTRATION RATE > 60.0 (>49); GLUCOSE, FASTING 181 MG/DL (70-100); LDH LACTATE DEHYDROGENASE 294 U/L (87-241); NT-PRO BNP 653 PG/ML (<125); POTASSIUM SERUM 3.6 MEQ/L (3.5-5.1); SODIUM LEVEL 135 MEQ/L (136-145); TOTAL PROTEIN 6.6 GM/DL (6.4-8.2)
[2021-05-08 08:23] LABS: ATYPICAL LYMPH 2 % (0-5); LYMPHOCYTES 7 % (16-44); MONOCYTES 4 % (0-5); NEUTROPHILS 87 % (28-66)
[2021-05-08 08:24] LABS: ANISOCYTOSIS 1+; PLATELET ESTIMATE NORMAL (NORMAL); POIKILOCYTOSIS 1+
[2021-05-08] MEDS: OMEPRAZOLE 20 MG CAP PO SCH (09:08)
[2021-05-08] MEDS: ENOXAPARIN 40MG/0.4ML SYRINGE (J1650 PER 10MG) SC SCH (09:08)
[2021-05-08] MEDS: GLIMEPIRIDE 2 MG TAB PO SCH (09:09)
[2021-05-08] MEDS: guaiFENesin ER 600 MG TAB PO SCH ×2 (09:09→20:20)
[2021-05-08] MEDS: diltiaZEM **CD** 180 MG CAP PO SCH (09:09)
[2021-05-08] MEDS: LACTOBACILLUS ACIDOPHILUS CAP (BACID) PO SCH (09:09)
[2021-05-08] MEDS: LEVEMIR (INSULIN DETEMIR) 1 UNITS/0.01ML SC SCH (09:10)
[2021-05-08] MEDS: dexameTHASONE 4 MG/ML 1ML VIAL (J1100 PER 1MG) IV SCH (09:10)
[2021-05-08] MEDS: BRIMONIDINE 0.1% OPHTH SOLN 5 ML OU SCH ×2 (09:11→20:21)
[2021-05-08] MEDS: HumaLOG INSULIN (NovoLOG) PER UNIT SC SCH ×4 (09:11→20:20)
[2021-05-08 14:00] VITALS: BP 119/72
--- NOTE | 2021-05-08 16:58 | IPNPDOC ---
Subjective Date Seen The patient was seen on 05/08/21. Subjective Chief Complaint/HPI No issues overnight. Continues to be on 2.5 to 3 liters of oxygen but desaturates to 87% on ambulation. Continues to complain of SOB but says that he always has SOB. Objective Physical Examination General Exam: Positive: Alert, Cooperative, No Acute Distress Eye Exam: Positive: Conjunctiva & lids normal, EOMI ENT Exam: Positive: Atraumatic, Mucous membr. moist/pink, Pharynx Normal Neck Exam: Positive: Supple; Negative: JVD, thyromegaly Chest Exam: Positive: Diminished; Negative: Rales, Rhonchi, Wheezing Heart Exam: Positive: Rate Normal, Regular Rhythm, Normal S1, Normal S2; Negative: Murmurs, Rubs Abdomen Exam: Positive: Normal bowel sounds, Soft; Negative: Tenderness Extremity Exam: Positive: Normal pulses; Negative: Clubbing, Cyanosis, Edema Neuro Exam: Positive: Normal Speech, Strength at 5/5 X4 ext, Normal Tone Psych Exam: Positive: Memory Intact, Oriented x 3 Assessment /Plan Assessment 70-year-old male with past medical history of bronchiectasis, COPD steroid- dependent, chronic hypoxic respiratory failure on 2-1/2 L of oxygen, common variable immunodeficiency, aortic stenosis status post TAVR in December 2020, systolic congestive heart failure with EF of 35 to 40%,, hypothyroid was recently diagnosed with Covid pneumonia on 05/01 2021. He was admitted to the hospital from 05/01-05 03 2021 without any worsening of his oxygen requirement and was subsequently discharged home with the oral prednisone taper, and to resume his routine cycle of antibiotics with cefdinir followed by ciprofloxacin as per his schedule for bronchiectasis treatment. He comes back today as his breathing has again worsened since yesterday. Even going from bed to chair has been making him very short of breath and has been panting and his oxygen satura tion has been dropping to 85% with his home 2-1/2 L. On arrival to the ED he was initially requiring about 3-1/2 L of oxygen. Chest x-ray showed more prominent infiltrates at the right lower lobe compared to his x-ray on 05/01/2021. He is being admitted for right lower lobe pneumonia superadded on COVID infection. Right lower lobe pneumonia Likely secondary bacterial pneumonia Procalcitonin elevated 0.9 Continues on zosyn Covid infection Increased shortness of breath with hypoxia on ambulation Continue on steroids, remdesivir At present his oxygen requirement is slightly up from baseline of 2.5 to 3 L COPD with chronic hypoxic respiratory failure We will continue with DuoNebs, budesonide, Spiriva, formoterol Bronchiectasis We will continue with zosyn in hospital continue with bactrim ds. And fluconazole weekly History of systolic CHF BNP slightly elevated from baseline though clinically does not appear to be fluid overloaded continue torsemide daily Hypertension Continue diltiazem at lower dose Sleep apnea on CPAP. Patient may use his home CPAP. Type 2 diabetes mellitus. Hold Metformin, Continue glimepiride, and start sliding scale with hypoglycemic protocol. Hypothyroid Continue Synthroid Glaucoma Continue home eyedrops Peripheral arterial disease Continue Plavix Coronary artery disease status post stenting Continue Plavix. Will resume pitavastatin on discharge Plan/VTE VTE Prophylaxis Ordered?: Yes VS, I&O, 24H, Fishbone Vital Signs/I&O Vital Signs Date Time Temp Pulse Resp B/P (MAP) Pulse Ox O2 Delivery O2 Flow Rate FiO2 05/08/21 04:00 92 Nasal Cannula 2.5 05/08/21 04:00 97.7 79 19 119/67 (84) 05/06/21 08:54 92 I&O- Last 24 Hours up to 6 AM 05/08/21 05:59 Intake Total 2340 ml Output Total 2425 ml Balance -85 ml Laboratory Data 24H LABS Laboratory Tests 2 05/07/21 11:09: Bedside Glucose (Misc Panel) 329H 05/07/21 16:42: Bedside Glucose (Misc Panel) 297H 05/07/21 20:59: Bedside Glucose (Misc Panel) 299H 05/08/21 06:02: Bedside Glucose (Misc Panel) 200H 05/08/21 06:23: Neutrophils (%) (Auto) , Nucleated Red Blood Cells % (auto) 0.0, Prothrombin Time 14.8H, Prothromb Time International Ratio 1.12, Activated Partial Thromboplast Time 35.7, Fibrinogen 773H CBC/BMP Laboratory Tests 05/08/21 06:23 Microbiology Microbiology 05/06/21 Blood Culture - Preliminary, Resulted No growth after 24 hours . All specim... 05/06/21 Blood Culture - Preliminary, Resulted No growth after 24 hours . All specim... Yakelin Parker MD May 08, 2021 08:20
[2021-05-08] MEDS: REMDESIVIR 100 MG in NS 250 ML IV SCH (17:35)
[2021-05-08] MEDS: SODIUM CHLORIDE 0.9% INJ 10 ML SYR IV SCH (17:35)
[2021-05-08] MEDS: CLOPIDOGREL 75 MG TAB PO SCH (20:20)
[2021-05-08] MEDS: LEVOTHYROXINE 50MCG TABLET (0.05MG) PO SCH (20:20)
[2021-05-08] MEDS: CitaloPRAM (CeleXA) 20 MG TAB PO SCH (20:20)
[2021-05-08] MEDS: MONTELUKAST 10 MG TAB PO SCH (20:20)
[2021-05-08] MEDS: LATANOPROST 0.005% OPHTH SOLN 2.5 ML OU SCH (20:21)
[2021-05-08 21:00] VITALS: O2SAT 93
[2021-05-08 22:00] VITALS: BP 104/68
[2021-05-09] MEDS: PIPERACILLIN/TAZOBACTAM SOD 3.375 GM in D5W MINI-BAG PLUS 50 ML IV SCH ×3 (01:46→13:11)
[2021-05-09] MEDS: IPRATROPIUM 0.5MG/ALBUTEROL 2.5MG INH SOL UD 3ML (DUONEB) NEB SCH ×4 (02:27→11:26)
[2021-05-09 05:50] VITALS: BP 135/79
[2021-05-09 06:27] LABS: HEMATOCRIT 34.3 % (42.0-52.0); HEMOGLOBIN 11.9 g/dl (13.5-17.5); MEAN CORPUSCULAR HGB CONC 34.7 g/dl (32.0-36.5); MEAN CORPUSCULAR VOLUME 92.2 fl (80.0-96.0); PLATELET COUNT, AUTOMATED 262 10^3/uL (150-450); RED BLOOD COUNT 3.72 10^6/uL (4.30-6.10); WHITE BLOOD COUNT 17.6 10^3/uL (4.0-10.0)
[2021-05-09 06:46] LABS: BLOOD UREA NITROGEN 21 MG/DL (7-18); CALCIUM LEVEL 8.6 MG/DL (8.8-10.2); CARBON DIOXIDE LEVEL 25 MEQ/L (21-32); CHLORIDE LEVEL 102 MEQ/L (98-107); CREATININE FOR GFR 0.62 MG/DL (0.70-1.30); GLOMERULAR FILTRATION RATE > 60.0 (>49); GLUCOSE, FASTING 97 MG/DL (70-100); MAGNESIUM LEVEL 2.3 MG/DL (1.8-2.4); POTASSIUM SERUM 4.2 MEQ/L (3.5-5.1); SODIUM LEVEL 135 MEQ/L (136-145)
[2021-05-09 06:56] LABS: ATYPICAL LYMPH 1 % (0-5); LYMPHOCYTES 9 % (16-44); NEUTROPHILS 90 % (28-66)
[2021-05-09 06:57] LABS: PLATELET ESTIMATE NORMAL (NORMAL)
[2021-05-09] MEDS: HumaLOG INSULIN (NovoLOG) PER UNIT SC SCH ×2 (07:30→12:17)
[2021-05-09] MEDS: TIOTROPIUM INHALER/CAPSULE (SPIRIVA) INH SCH (07:41)
[2021-05-09] MEDS: SYMBICORT 160/4.5MCG INHALER 6GM INH SCH (07:41)
[2021-05-09] MEDS ORDERED: DILT180C78 PO ×2 (07:54→15:36)
[2021-05-09] MEDS: ENOXAPARIN 40MG/0.4ML SYRINGE (J1650 PER 10MG) SC SCH (08:35)
[2021-05-09] MEDS: LACTOBACILLUS ACIDOPHILUS CAP (BACID) PO SCH (08:35)
[2021-05-09] MEDS: dexameTHASONE 4 MG/ML 1ML VIAL (J1100 PER 1MG) IV SCH (08:35)
[2021-05-09 08:36] VITALS: BP 135/79
[2021-05-09] MEDS: diltiaZEM **CD** 180 MG CAP PO SCH (08:36)
[2021-05-09] MEDS: GLIMEPIRIDE 2 MG TAB PO SCH (08:36)
[2021-05-09] MEDS: BACTRIM 160MG/800MG DS TAB PO SCH (08:36)
[2021-05-09] MEDS: OMEPRAZOLE 20 MG CAP PO SCH (08:36)
[2021-05-09] MEDS: guaiFENesin ER 600 MG TAB PO SCH (08:36)
[2021-05-09] MEDS: LEVEMIR (INSULIN DETEMIR) 1 UNITS/0.01ML SC SCH (08:37)
[2021-05-09] MEDS: BRIMONIDINE 0.1% OPHTH SOLN 5 ML OU SCH (08:38)
[2021-05-09] MEDS ORDERED: FLUCONAZOLE 100 MG TAB PO SCH (09:00)
[2021-05-09 10:00] VITALS: O2SAT 96
--- NOTE | 2021-05-09 10:09 | DS.PDOC ---
Discharge Summary General Date of Admission May 06, 2021 at 10:49 Date of Discharge 05/09/21 Discharge Summary PROCEDURES PERFORMED DURING STAY: [None]. DISCHARGE DIAGNOSES: Right lower lobe pneumonia COVID-19 infection SECONDARY DIAGNOSIS: Aortic valve replaced by bovine valve for aortic stenosis in 2009. Aortic restenosis and TAVR in December 2020. Systolic CHF with EF of 35% to 40% COPD / chronic hypoxic O2 respiratory failure (2.5L) / steroid dependence on Bactrim for PJP prophylaxis on wed, wed, Wednesday Bronchiectasis on chronic antibiotic cycles of 2 week on and 2 weeks off alternating between cefdinir/ ciprofloxacin Common variable immunodeficiency (CVID) Chronic CAD w stents x 13 / chronically elevated troponin PAD s/p left femoral endarterectomy and right stenting in 2018 NIDDM Glaucoma Hearing Loss MYKEL on CPAP Essential HTN Hypothyroid Depression Chronic thoracic vertebral body compression fracture / Osteoporosis Iron deficiency Vit B12 deficiency COMPLICATIONS/CHIEF COMPLAINT: Covid-19,Pneumonia. HOSPITAL COURSE: 70-year-old male with past medical history of bronchiectasis, COPD steroid-dependent, chronic hypoxic respiratory failure on 2-1/2 L of oxygen, common variable immunodeficiency, aortic stenosis status post TAVR in December 2020, systolic congestive heart failure with EF of 35 to 40%,, hypothyroid was recently diagnosed with Covid pneumonia on 05/01 2021. He was admitted to the hospital from 05/01-05 03 2021 without any worsening of his oxygen requirement and was subsequently discharged home with the oral prednisone taper, and to resume his routine cycle of antibiotics with cefdinir followed by ciprofloxacin as per his schedule for bronchiectasis treatment. He comes back today as his breathing has again worsened since yesterday. Even going from bed to chair has been making him very short of breath and has been panting and his oxygen saturation has been dropping to 85% with his home 2-1/2 L. On arrival to the ED he was initially requiring about 3-1/2 L of oxygen. Chest x-ray showed more prominent infiltrates at the right lower lobe compared to his x-ray on 05/01/2021. He is being admitted for right lower lobe pneumonia superadded on COVID infection. Right lower lobe pneumonia Likely secondary bacterial pneumonia Procalcitonin elevated 0.9 Blood cultures negative till date Received 3 days of zosyn. Can continue Cefdinir at home. Covid infection Increased shortness of breath with hypoxia on ambulation Received remdesevir and dexamethasone At present his oxygen requirement is at baseline 2.5 L at rest He does require some extra oxygen during ambulation. I have advised him to increase his oxygen to 4 L when ambulating while he is recovering from the Covid infection Can continue his prednisone taper as he was prescribed during last discharge. COPD with chronic hypoxic respiratory failure We will continue with DuoNebs, budesonide, Spiriva, formoterol Bronchiectasis We will continue with zosyn in hospital continue with bactrim ds. And fluconazole weekly History of systolic CHF Patient is now euvolemic. Hypertension Blood pressure has been low normal range in the hospital We will reduce diltiazem dose from 240 to 180 mg. Sleep apnea on CPAP. Type 2 diabetes mellitus. Continue home meds Hypothyroid Continue Synthroid Glaucoma Continue home eyedrops Peripheral arterial disease Continue Plavix Coronary artery disease status post stenting Continue Plavix. Will resume pitavastatin on discharge DISCHARGE MEDICATIONS: Please see below. ALLERGIES: Please see below. PHYSICAL EXAMINATION ON DISCHARGE: VITAL SIGNS: Please see below. General Exam: Positive: Alert, Cooperative, No Acute Distress Eye Exam: Positive: Conjunctiva & lids normal, EOMI ENT Exam: Positive: Atraumatic, Mucous membr. moist/pink, Pharynx Normal Neck Exam: Positive: Supple; Negative: JVD, thyromegaly Chest Exam: Positive: Diminished; Negative: Rales, Rhonchi, Wheezing Heart Exam: Positive: Rate Normal, Regular Rhythm, Normal S1, Normal S2; Negative: Murmurs, Rubs Abdomen Exam: Positive: Normal bowel sounds, Soft; Negative: Tenderness Extremity Exam: Positive: Normal pulses; Negative: Clubbing, Cyanosis, Edema Neuro Exam: Positive: Normal Speech, Strength at 5/5 X4 ext, Normal Tone Psych Exam: Positive: Memory Intact, Oriented x 3 LABORATORY DATA: Please see below. ACTIVITY: [As tolerated]. DIET: Carb consistent DISCHARGE PLAN: Home with services DISCHARGE INSTRUCTIONS: Follow-up with PMD in 1 to 2 weeks ITEMS TO FOLLOWUP ON ON OUTPATIENT: Follow final blood cultures DISCHARGE CONDITION: [Stable]. TIME SPENT ON DISCHARGE: 40 minutes. Vital Signs/I&Os Vital Signs Date Time Temp Pulse Resp B/P (MAP) Pulse Ox O2 Delivery O2 Flow Rate FiO2 05/09/21 08:36 72 135/79 05/09/21 05:50 97.8 19 94 Nasal Cannula 2.5 05/06/21 08:54 92 I&O- Last 24 Hours up to 6 AM 05/09/21 06:00 Intake Total 1730 ml Output Total 3175 ml Balance -1445 ml Laboratory Data Labs 24H Laboratory Tests 2 05/08/21 12:02: Bedside Glucose (Misc Panel) 301H 05/08/21 16:46: Bedside Glucose (Misc Panel) 337H 05/08/21 19:52: Bedside Glucose (Misc Panel) 347H 05/09/21 05:05: Bedside Glucose (Misc Panel) 113 05/09/21 06:06: Neutrophils (%) (Auto) , Nucleated Red Blood Cells % (auto) 0.0, Neutrophils 90H, Lymphocytes (Manual) 9L, Atypical Lymphocytes 1, Red Blood Cell Morphology NORMAL, Platelet Estimate NORMAL, Anion Gap 8, Glomerular Filtration Rate > 60.0, Calcium Level 8.6L, Magnesium Level 2.3 CBC/BMP Laboratory Tests 05/09/21 06:06 FSBS Laboratory Tests Test 05/08/21 12:02 05/08/21 16:46 05/08/21 19:52 05/09/21 05:05 Range/Units Bedside Glucose (Misc Panel) 301 337 347 113 80-115 MG/DL Microbiology Microbiology 05/06/21 Blood Culture - Preliminary, Resulted No Growth after 72 hours. All specime... 05/06/21 Blood Culture - Preliminary, Resulted No Growth after 72 hours. All specime... Discharge Medications Scheduled Aclidinium [place] (Tudorza Pressair) 400 Mcg Aer.pow.ba, 1 PUFF INH BID, (Reported) Albuterol Sulf (Albuterol Sulfate) 2.5 Mg/3 Ml Nebu, 2.5 MG INH QID, (Reported) MIXES WITH IPRATROPIUM Ascorbic Acid (Ascorbic Acid) 500 Mg Tablet, 1,000 MG PO DAILY, (Reported) Brimonidine Tartrate (Alphagan P) 0.1% 5ML Drops, 1 DROP OU BID, (Reported) USES MORNING/DINNERTIME Budesonide (Pulmicort) 0.5 Mg/2 Ml Mely, 0.5 MG INH BID, (Reported) USED WITH PERFOROMIST, USES 30MIN AFTER ALBUTEROL/IPRATROPIUM NEB Calcium Citrate/Vitamin D3 (Calcium Citrate-Vit D3 Caplet) 1 Tab Tab, 1 TAB PO BID, (Reported) Cefdinir (Cefdinir) 300 Mg Capsule, 300 MG PO BID, (Reported) STARTED 04/28 FOR 2 WEEKS, THEN 2 WEEK BREAK THEN CONTINUE WITH CIPRO Cholecalciferol (Vitamin D3) (Vitamin D3) 1,000 Unit Tablet, 2,000 UNITS PO DAILY, (Reported) Ciprofloxacin HCl (Cipro) 500 Mg Tablet, 500 MG PO ASDIRECTED, (Reported) TAKES TWICE DAILY FOR 14 DAYS, START ON 06/02 Citalopram Hydrobromide (Celexa) 20 Mg Tablet, 20 MG PO QHS, (Reported) Clopidogrel Bisulfate (Plavix) 75 Mg Tab, 75 MG PO QHS, (Reported) Diltiazem Hcl (Diltiazem 24Hr ER) 180 Mg Cap.er.24h, 1 CAP PO DAILY Ferrous Sulfate (Ferrous Sulfate) 325 Mg Tab, 325 MG PO DAILY, (Reported) Fluconazole (Fluconazole) 200 Mg Tablet, 200 MG PO QWEEK, (Reported) FRIDAYS Folic Acid (Folic Acid) 1 Mg Tab, 1 MG PO DAILY, (Reported) Formoterol Fumarate (Perforomist) 20 Mcg/2 Ml Neb, 20 MCG INH BID, (Reported) USED WITH PULMICORT, USES 30MIN AFTER ALBUTEROL/IPRATROPIUM NEB Glimepiride (Glimepiride) 4 Mg Tablet, 4 MG PO DAILY, (Reported) Guaifenesin (Mucinex) 600 Mg Tab.er.12h, 600 MG PO BID, (Reported) Ibandronate Sodium (Boniva) 150 Mg Tablet, 150 MG PO QMONTH, (Reported) TAKES ON 10TH OF EACH MONTH Immun Glob G(IgG)/Pro/Iga 0-50 (Hizentra 1 Gram/5 ml Vial) 1 Gm/5 Ml Vial, 14 MG SC QWEEK, (Reported) SATURDAYS Ipratropium [place] (Ipratropium [place]) 0.5 Mg/2.5 Ml Soln, 0.5 MG INH QID, (Reported) MIXES WITH ALBUTEROL L.acidoph/L.bulg/B.bif/S.therm (Bacid Caplet) 1 Each Tablet, 1 TAB PO DAILY, (Reported) Levothyroxine Sodium (Levothyroxine Sodium) 50 Mcg Tablet, 50 MCG PO QHS, (Reported) Metformin HCl (Metformin HCl) 500 Mg Tab, 500 MG PO TID, (Reported) Montelukast Sodium (Singulair) 10 Mg Tab, 10 MG PO QHS, (Reported) Omeprazole (Omeprazole) 40 Mg Cap, 40 MG PO DAILY, (Reported) Pitavastatin Calcium (Livalo) 2 Mg Tablet, 2 MG PO QHS, (Reported) Prednisone (Prednisone) 10 Mg Tablet, 10 MG PO ASDIRECTED Take 4 tabs daily x3 days, then take 3 tabs x4 days, then continue home 20 mg dose Sulfamethoxazole/Trimethoprim (Bactrim Ds Tablet) 1 Each Tablet, 1 TAB PO 3XW, (Reported) WED/WED/WED Travoprost (Travatan Z) 50 Drop/2.5 Ml Soln, 1 DROP OU QHS, (Reported) Vitamin B Complex (Vitamin B Complex) 1 Each Tablet, 1 TAB PO DAILY, (Reported) Zinc (Zinc) 50 Mg Tablet, 50 MG PO DAILY, (Reported) Scheduled PRN Nitroglycerin (Nitrostat) 0.4 Mg Subl, 0.4 MG SL NITRO PRN for CHEST PAIN, (Reported) Allergies Coded Allergies: fexofenadine (Verified Allergy, Severe, anaphylaxis, 09/05/19) quinidine (Verified Allergy, Intermediate, HIVES, 09/05/19) metoprolol (Verified Adverse Reaction, Intermediate, d/t lung condition, 09/05/19) pravastatin (Verified Adverse Reaction, Intermediate, MUSCLE WEAKNESS, 09/05/19) aspirin (Verified Adverse Reaction, Mild, RECTAL BLEEDING, 09/05/19) furosemide (Verified Adverse Reaction, Mild, dizziness, 09/05/19) levofloxacin (Verified Adverse Reaction, Mild, MUSCLE CRAMPING, 09/05/19) Yakelin Parker MD May 09, 2021 10:08
[2021-05-09] MEDS ORDERED: REMDESIVIR 100 MG in NS 250 ML IV SCH (11:00)
[2021-05-09] MEDS ORDERED: SODIUM CHLORIDE 0.9% INJ 10 ML SYR IV SCH (12:00)
[2021-05-09 14:00] VITALS: BP 117/65
== END 2021-05-09 14:25 | disposition home health service (06) | DRG 177 ==
LOC: M ED 08:22 → M ED INP 10:49 → ENRESERV 14:14 → M 4MAIN 15:24
PROVIDERS: ADMIT Internal Medicine Nephrology; ATTEND Internal Medicine Nephrology
PROC: XW033E5 Introduction of Remdesivir Anti-infective into Peripheral Vein, Percutaneous Approach, New Technology Group 5 (ICD-10-PCS; principal; 2021-05-06)
PROC: 3E0333Z Introduction of Anti-inflammatory into Peripheral Vein, Percutaneous Approach (ICD-10-PCS; 2021-05-06)
DX: U07.1 COVID-19 (principal); J15.9 Unspecified bacterial pneumonia; J96.11 Chronic respiratory failure with hypoxia; D83.9 Common variable immunodeficiency, unspecified; I50.22 Chronic systolic (congestive) heart failure; J44.9 Chronic obstructive pulmonary disease, unspecified; I35.0 Nonrheumatic aortic (valve) stenosis; I25.10 Atherosclerotic heart disease of native coronary artery without angina pectoris; E11.51 Type 2 diabetes mellitus with diabetic peripheral angiopathy without gangrene; H40.9 Unspecified glaucoma; H91.90 Unspecified hearing loss, unspecified ear; G47.33 Obstructive sleep apnea (adult) (pediatric); Z66 Do not resuscitate; I11.0 Hypertensive heart disease with heart failure; E03.9 Hypothyroidism, unspecified; F32.A Depression, unspecified; M80.08XD Age-related osteoporosis with current pathological fracture, vertebra(e), subsequent encounter for fracture with routine healing; E53.8 Deficiency of other specified B group vitamins; E61.1 Iron deficiency; Z99.81 Dependence on supplemental oxygen; Z95.3 Presence of xenogenic heart valve; Z87.891 Personal history of nicotine dependence; Z79.84 Long term (current) use of oral hypoglycemic drugs; Z79.52 Long term (current) use of systemic steroids; Z79.899 Other long term (current) drug therapy; Z88.1 Allergy status to other antibiotic agents; Z88.6 Allergy status to analgesic agent; Z88.8 Allergy status to other drugs, medicaments and biological substances; Z95.5 Presence of coronary angioplasty implant and graft; Z95.820 Peripheral vascular angioplasty status with implants and grafts

== ENCOUNTER 2021-05-25 08:48 | Observation (INO) | payer MEDICARE, OTHER ==
[~2021-05-25] VITALS: Ht 172.7 cm; Wt 65.4 kg
[2021-05-25] MEDS: BRIMONIDINE 0.1% OPHTH SOLN 5 ML OU SCH ×2 (06:00→17:29)
[~2021-05-25 08:48] MED LIST changes: +DILT180C78 PO
[2021-05-25] MEDS ORDERED: dexameTHASONE 20MG/5ML VIAL (J1100 PER 1MG) IV ONE (09:20)
--- NOTE | 2021-05-25 09:38 | REP ---
INDICATION: DYSPNEA/COUGH COMPARISON: 05/06/2021 TECHNIQUE: Portable AP view of the chest FINDINGS: Mediastinum and cardiac silhouette are stable. Diffuse chronic interstitial changes are again noted and unchanged. Lower lobe opacities again noted but show considerable improvement. No obvious effusion. No pneumothorax. IMPRESSION: Decreased bilateral lower lobe opacities. <Electronically signed by Gilberto Hudson > 05/25/21 [id number]
[2021-05-25 10:00] LABS: BASO % 0.2 % (0.0-1.0); EOS # 0.1 10^3/uL (0.0-0.5); EOS % 0.4 % (0.0-3.0); HEMATOCRIT 37.6 % (42.0-52.0); HEMOGLOBIN 12.5 g/dl (13.5-17.5); LYMPH # 0.5 10^3/uL (1.5-5.0); LYMPH % 3.2 % (24.0-44.0); MEAN CORPUSCULAR HGB CONC 33.2 g/dl (32.0-36.5); MEAN CORPUSCULAR VOLUME 96.2 fl (80.0-96.0); MONO # 0.8 10^3/uL (0.0-0.8); NEUTROPHILS # 14.7 10^3/uL (1.5-8.5); NEUTROPHILS % 90.3 % (36.0-66.0); PLATELET COUNT, AUTOMATED 233 10^3/uL (150-450); RED BLOOD COUNT 3.91 10^6/uL (4.30-6.10); WHITE BLOOD COUNT 16.3 10^3/uL (4.0-10.0)
[2021-05-25 10:28] LABS: ALBUMIN 3.2 GM/DL (3.2-5.2); ALT/SGPT 37 U/L (12-78); BILIRUBIN,DIRECT 0.1 MG/DL (0.0-0.2); BILIRUBIN,TOTAL 0.5 MG/DL (0.2-1.0); BLOOD UREA NITROGEN 16 MG/DL (7-18); CALCIUM LEVEL 9.5 MG/DL (8.8-10.2); CARBON DIOXIDE LEVEL 28 MEQ/L (21-32); CHLORIDE LEVEL 103 MEQ/L (98-107); CREATININE FOR GFR 0.76 MG/DL (0.70-1.30); GLOMERULAR FILTRATION RATE > 60.0 (>49); GLUCOSE, FASTING 51 MG/DL (70-100); NT-PRO BNP 645 PG/ML (<125); SODIUM LEVEL 139 MEQ/L (136-145); TOTAL PROTEIN 6.6 GM/DL (6.4-8.2)
[2021-05-25] MEDS: IPRATROPIUM 0.5MG/ALBUTEROL 2.5MG INH SOL UD 3ML (DUONEB) NEB SCH ×5 (12:06→19:29)
[2021-05-25] MEDS ORDERED: MOM 30ML SUSPENSION UDC PO PRN (13:45)
[2021-05-25] MEDS ORDERED: MAALOX 30 ML SUSP *UDC PO PRN (13:45)
[2021-05-25] MEDS ORDERED: GLUCAGON INJ 1MG VIAL SC PRN (13:45)
[2021-05-25] MEDS ORDERED: GLUCOSE 4GM CHEW TABLET PO PRN (13:45)
[2021-05-25] MEDS ORDERED: ACETAMINOPHEN TAB 650MG DOSE (2X325MG) PO PRN (13:45)
[2021-05-25] MEDS ORDERED: IPRATROPIUM 0.5MG/ALBUTEROL 2.5MG INH SOL UD 3ML (DUONEB) NEB PRN (13:45)
[2021-05-25] MEDS ORDERED: DEXTROSE 50% 50 ML SYRINGE IV PRN (13:45)
--- NOTE | 2021-05-25 14:13 | REP ---
INDICATION: SOB COMPARISON: Most recent prior chest CT dated 10/05/2019 TECHNIQUE: Axial noncontrast images from the thoracic inlet to the upper abdomen with coronal and sagittal reformations. This CT examination was performed using the following dose reduction techniques: Automated exposure control, adjustment of mA and/or kv according to the patient's size, and use of iterative reconstruction technique. FINDINGS: Advanced emphysematous disease with significant bibasilar fibrosis and scarring again noted. Very subtle superimposed small areas of atelectasis in the lower lobes is suggested. No effusion. No pneumothorax. Tracheobronchial tree is grossly patent. Mediastinum demonstrates prior aortic repair and continued significant atherosclerotic disease to the thoracic aorta and coronary arteries. No significant cardiomegaly. No pericardial effusion. No adenopathy. Musculoskeletal structures without acute osseous abnormality. IMPRESSION: 1. Advanced chronic emphysematous changes with scattered scarring and fibrosis. 2. Small amounts of superimposed bibasilar atelectasis. <Electronically signed by Gilberto Hudson > 05/25/21 [id number]
--- NOTE | 2021-05-25 14:15 | HPEPDOC ---
[facility] Medical History & Physical Date of Admission May 25, 2021 Date of Service: May 25, 2021 History and Physical Chief complaint: Who presented to the ED with reported shortness of breath History of present illness: Patient is a 70-year-old male with a PMHx of HTN, Systolic CHF (EF: 35-40%), AVR (2/2 ; s/p Bovine valve 2019, TAVR 12/2020), CAD s/p 13 stents; Chronically elevated troponin, PAD, Chronic hypoxia (on 2L NC), Bronchiectasis / COPD (Steroid dependence, PCP prophylaxis MWF), MYKEL (not on CPAP) who presented to ER with complaints of shortness of breath that started yesterday. Patient reported that her shortness of breath started yesterday. He had measured his temporal temperature was noted to be 100.2 F. Patient reports a productive cough described as grade like. Denies any blood tinge to it. Denied any chest pain or palpitations. Has not experience any nausea, vomiting, abdominal pain, constipation, diarrhea, or urinary discomfort. Patient reports that his ankles are swollen and that this is not significantly changed from prior. Patient reports that his appetite is relatively normal and has not experience any changes in his weight. Past Medical History: HTN Systolic CHF (EF: 35-40%) AVR (2/2 ; s/p Bovine valve 2019, TAVR 12/2020) CAD s/p 13 stents; Chronically elevated troponin PAD s/p L femoral endarterectomy, R leg stenting (2017) Chronic hypoxia (on 2L NC) Bronchiectasis / COPD (Steroid dependence, PCP prophylaxis MWF) MYKEL (not on CPAP) NIDDM2 Hypothyroidism CVID Hx of COVID (04/2021) Glaucoma Hearing Loss Depression Chronic thoracic vertebral body compression fracture / Osteoporosis Iron and Vitamin B12 deficiency Past Surgical History: Multiple aortic valve replacements with most recent being in December 2020 Eyelid procedure. Left femoral endarterectomy with patch repair March 2016. Tongue biopsy Allergies: See below Medications: See below Family History: - Reviewed and noncontributory Social History: - Patient denies the use of alcohol or drugs; reports that he quit smoking 12 years ago but was a smoker of 30 years at one PPD - Denies recent travel or sick contacts - Lives with - Occupation; patient reports that hes to work at the [employer] office Review of Systems: 10 point review of systems complete, all negative otherwise stated in HPI Physical exam: - Vitals: BP [114/65], HR [83], RR [22], Sat [95%NC2L], Temp [99.3F] - General: Lying in bed, Speaking in full sentences, AAOx3 - HEENT: NC, AT, PERRLA - CVS: RRR, +S1S2 - Lungs: Fair air entry bilaterally, No appreciable rales / rhonchi, diffuse wheezing appreciated bilaterally - Abdomen: Soft, Non-distended, Non-tender - Extremities: LE with 1+ pitting edema bilaterally, No calf tenderness - Neuro: No focal motor or sensory deficit - Skin: No visible rashes Labs: See below Imaging: CXR 05/25: Decreased bilateral lower lobe opacities. EKG: See below Assessment and Plan: Shortness of breath / Chronic hypoxia - possibly 2/2 COPD exacerbation - Patient presented to the ER with complaints of shortness of breath and reported fever at home yesterday - Patient is saturating at 99% on 3 L of nasal cannula oxygen; he has been reduced back to 2 L (home flow) - Physical reveals evidence of wheezing bilaterally - Mild leukocytosis with neutrophil predominance - Respiratory panel 05/25: Negative - Imaging noted above - s/p Dexamethasone in the ER - Will check Procalcitonin / Blood cultures / CT Chest - Will start Solumedrol / Doxycycline - c/w Inhaled therapy as ordered Chronic Systolic CHF (EF: 35-40%) - LE with evidence of edema; patient reports this might be slightly more than usual, but is unsure - c/w Strict ins/outs, Daily weights, Fluid restriction - Will check ECHO - Currently not on any diuretics - Will give single dose of Torsemide and evaluate output Hx of COVID - Patient had last tested positive on 05/01/2021 - s/p Remdesivir / Dexamethasone - Will add Mucinex / Acapella / Incentive spirometry Lactic acidosis - Does not appear to be septic; likely 2/2 work of breathing - Will hold off on fluids HTN - BP remains well controlled - c/w Diltiazem AVR 2/2 - s/p Bovine valve 2019 - s/p TAVR 12/2020 CAD s/p 13 stents - Patient denies any chest pain or palpitations - EKG reviewed and consistent with prior - Chronically elevated troponin - c/w Plavix / Nitro PRN PAD - s/p L femoral endarterectomy - s/p R leg stenting (2017) - c/w Plavix and Pitavastatin (unless not on formulary) Bronchiectasis / COPD - Steroid dependence, PCP prophylaxis MW - c/w TMP-SMX (MWF) based on outpatient regimen (re: PCP prophylaxis) MYKEL (not on CPAP) - Patient reports that he does not have a CPAP device at home NIDDM2 - Will hold Metformin - Will start ISS Hypothyroidism - c/w Levothyroxine CVID - Patient receives immunoglobulin weekly Glaucoma Hearing Loss Depression - c/w Citalopram Chronic thoracic vertebral body compression fracture / Osteoporosis - Patient receives Ibandronate as an outpatient monthly Iron and Vitamin B12 deficiency - c/w Supplementation GERD - c/w Omeprazole DVT prophylaxis - Will start Lovenox Code status: - DNR / DNI - Confirmed code status - Discussed with ; Christine Velasquez - updated about plan of care Disposition: - Will keep on observation status Vital Signs Vital Signs Date Time Temp Pulse Resp B/P (MAP) Pulse Ox O2 Delivery O2 Flow Rate FiO2 05/25/21 11:23 Nasal Cannula 3.0 05/25/21 11:15 83 22 114/65 (81) 95 05/25/21 08:49 99.3 Laboratory Data Labs 24H Laboratory Tests 2 05/25/21 09:48: Immature Granulocyte % (Auto) 0.9, Neutrophils (%) (Auto) 90.3H, Lymphocytes (%) (Auto) 3.2L, Monocytes (%) (Auto) 5.0, Eosinophils (%) (Auto) 0.4, Basophils (%) (Auto) 0.2, Neutrophils # (Auto) 14.7H, Lymphocytes # (Auto) 0.5L, Monocytes # (Auto) 0.8, Eosinophils # (Auto) 0.1, Basophils # (Auto) 0.0, Nucleated Red Blood Cells % (auto) 0.0, Anion Gap 8, Glomerular Filtration Rate > 60.0, Calcium Level 9.5, Total Bilirubin 0.5, Direct Bilirubin 0.1, Aspartate Amino Transf (AST/SGOT) 16, Alanine Aminotransferase (ALT/SGPT) 37, Alkaline Phosphatase 75, TG-Gzu-Z-Type Natriuretic Peptide 645H, Total Protein 6.6, Albumin 3.2, Albumin/Globulin Ratio 0.9 12/19/21 13:33: POC Troponin I (Misc) 0.01 CBC/BMP Laboratory Tests 05/25/21 09:48 Microbiology Microbiology 05/25/21 Respiratory Virus Panel (PCR) ([facility]YMAN) - Final, Complete 05/25/21 Blood Culture, Received Pending 05/25/21 Blood Culture, Received Pending Home Medications Scheduled Aclidinium [place] (Tudorza Pressair) 400 Mcg Aer.pow.ba, 1 PUFF INH BID Albuterol Sulf (Albuterol Sulfate) 2.5 Mg/3 Ml Nebu, 1 VIAL INH QID MIXES WITH IPRATROPIUM Ascorbic Acid (Ascorbic Acid) 500 Mg Tablet, 1,000 MG PO DAILY Brimonidine Tartrate (Alphagan P) 0.1% 5ML Drops, 1 DROP OU BID USES MORNING/DINNERTIME Budesonide (Pulmicort) 0.5 Mg/2 Ml Mely, 0.5 MG INH BID USED WITH PERFOROMIST, USES 30MIN AFTER ALBUTEROL/IPRATROPIUM NEB Calcium Citrate/Vitamin D3 (Calcium Citrate-Vit D3 Caplet) 1 Tab Tab, 1 TAB PO BID Cholecalciferol (Vitamin D3) (Vitamin D3) 1,000 Unit Tablet, 2,000 UNITS PO DAILY Citalopram Hydrobromide (Celexa) 20 Mg Tablet, 20 MG PO QHS Clopidogrel Bisulfate (Plavix) 75 Mg Tab, 75 MG PO QHS Famotidine (Famotidine) 40 Mg Tablet, 40 MG PO QHS Ferrous Sulfate (Ferrous Sulfate) 325 Mg Tab, 325 MG PO DAILY Fluconazole (Fluconazole) 200 Mg Tablet, 200 MG PO QWEEK FRIDAYS Folic Acid (Folic Acid) 1 Mg Tab, 1 MG PO DAILY Formoterol Fumarate (Perforomist) 20 Mcg/2 Ml Neb, 20 MCG INH BID USED WITH PULMICORT, USES 30MIN AFTER ALBUTEROL/IPRATROPIUM NEB Glimepiride (Glimepiride) 4 Mg Tablet, 4 MG PO BID Guaifenesin (Mucinex) 600 Mg Tab.er.12h, 600 MG PO BID Ibandronate Sodium (Boniva) 150 Mg Tablet, 150 MG PO QMONTH TAKES ON 10TH OF EACH MONTH Immun Glob G(IgG)/Pro/Iga 0-50 (Hizentra 1 Gram/5 ml Vial) 1 Gm/5 Ml Vial, 14 MG SC QWEEK SATURDAYS Ipratropium [place] (Ipratropium [place]) 0.5 Mg/2.5 Ml Soln, 0.5 MG INH QID MIXES WITH ALBUTEROL L.acidoph/L.bulg/B.bif/S.therm (Bacid Caplet) 1 Each Tablet, 1 TAB PO DAILY Levothyroxine Sodium (Levothyroxine Sodium) 50 Mcg Tablet, 50 MCG PO QHS Metformin HCl (Metformin HCl) 500 Mg Tab, 500 MG PO TID Montelukast Sodium (Singulair) 10 Mg Tab, 10 MG PO QHS Omeprazole (Omeprazole) 40 Mg Cap, 40 MG PO DAILY Pitavastatin Calcium (Livalo) 2 Mg Tablet, 2 MG PO QHS Prednisone (Prednisone) 10 Mg Tablet, 20 MG PO DAILY Sulfamethoxazole/Trimethoprim (Bactrim Ds Tablet) 1 Each Tablet, 1 TAB PO 3XW MON/WED/FRI Travoprost (Travatan Z) 50 Drop/2.5 Ml Soln, 1 DROP OU QHS Vitamin B Complex (Vitamin B Complex) 1 Each Tablet, 1 TAB PO DAILY Zinc (Zinc) 50 Mg Tablet, 50 MG PO DAILY dilTIAZem HCl (Diltiazem 24Hr Cd) 180 Mg Cap.er.24h, 180 MG PO DAILY Scheduled PRN Nitroglycerin (Nitrostat) 0.4 Mg Subl, 0.4 MG SL NITRO PRN for CHEST PAIN Allergies Coded Allergies: fexofenadine (Verified Allergy, Severe, anaphylaxis, 05/25/21) quinidine (Verified Allergy, Intermediate, HIVES, 05/25/21) metoprolol (Verified Adverse Reaction, Intermediate, d/t lung condition, 05/25/21) pravastatin (Verified Adverse Reaction, Intermediate, MUSCLE WEAKNESS, 05/25/21) aspirin (Verified Adverse Reaction, Mild, RECTAL BLEEDING, 05/25/21) furosemide (Verified Adverse Reaction, Mild, dizziness, 05/25/21) levofloxacin (Verified Adverse Reaction, Mild, MUSCLE CRAMPING, 05/25/21) TACHO DAWN MD May 25, 2021 14:14
[2021-05-25] MEDS ORDERED: DILT180C70 PO (14:56)
[2021-05-25] MEDS ORDERED: PRED10TA2 PO (14:56)
[2021-05-25] MEDS ORDERED: FAMO40TA3 PO (14:56)
[2021-05-25] MEDS ORDERED: HOME MED LIST COMPLETE! XX SCH (15:00)
[2021-05-25] MEDS: DOXYCYCLINE HYCLATE 100MG TABLET PO SCH ×2 (15:01→21:04)
[2021-05-25 15:25] VITALS: BP 130/70
[2021-05-25] MEDS ORDERED: NITROGLYCERIN 0.4 MG SUBL TABLET SL PRN (15:25)
[2021-05-25 15:42] LABS: C REACTIVE PROTEIN QUANTITATIV 3.45 MG/DL (0.00-0.30)
[2021-05-25] MEDS ORDERED: NS 1,000 ML IV SCH (16:00)
[2021-05-25] MEDS ORDERED: TORSEMIDE 20 MG TAB PO ONE (17:00)
[2021-05-25] MEDS: HumaLOG INSULIN (NovoLOG) PER UNIT SC SCH (17:28)
[2021-05-25 18:11] LABS: MAGNESIUM LEVEL 1.8 MG/DL (1.8-2.4)
[2021-05-25] MEDS: FORMOTEROL FUMARATE 20 MCG/2 ML INHALATION SOLUTION (PERFOROMIST) INH SCH (19:28)
[2021-05-25] MEDS: BUDESONIDE 0.5 MG/2 ML INHALATION SUSPENSION INH SCH (19:28)
--- NOTE | 2021-05-25 19:29 | ECGEPIP ---
[facility] - ED Test Date: 2021-05-25 Pat Name: MINOO CASTILLO Department: Room: - Gender: Male Rn Gynecology: HIEN : 1950 Requested By: Deshawn Hart Order Number: [id number] Reading MD: Mickie Bingham Measurements Intervals [place] Rate: 111 P: 3 [place]: 124 QRS: -3 QRSD: 84 T: 71 QT: 326 QTc: 443 Interpretive Statements Sinus tachycardia Nonspecific ST and T wave abnormality increased rate 05/06/21 Electronically Signed on 05-25-2021 19:29:02 EST by Mickie Bingham
[2021-05-25] MEDS ORDERED: CLOPIDOGREL 75 MG TAB PO SCH (21:00)
[2021-05-25] MEDS ORDERED: LATANOPROST 0.005% OPHTH SOLN 2.5 ML OU SCH (21:00)
[2021-05-25] MEDS ORDERED: HumaLOG INSULIN (NovoLOG) PER UNIT SC SCH (21:00)
[2021-05-25] MEDS ORDERED: CitaloPRAM (CeleXA) 20 MG TAB PO SCH (21:00)
[2021-05-25] MEDS ORDERED: ENOXAPARIN 40MG/0.4ML SYRINGE (J1650 PER 10MG) SC SCH (21:00)
[2021-05-25] MEDS ORDERED: MONTELUKAST 10 MG TAB PO SCH (21:00)
[2021-05-25] MEDS ORDERED: FAMOTIDINE 20 MG TAB PO SCH (21:00)
[2021-05-25] MEDS ORDERED: LEVOTHYROXINE 50MCG TABLET (0.05MG) PO SCH (21:00)
[2021-05-25] MEDS: DOCUSATE SODIUM 100MG CAPSULE PO SCH (21:03)
[2021-05-25] MEDS: guaiFENesin ER 600 MG TAB PO SCH (21:04)
[2021-05-25] MEDS: methylPREDNISolone 40MG 1ML VIAL IV SCH (21:05)
[2021-05-25 22:00] VITALS: BP 130/73; O2SAT 96
[2021-05-26] MEDS: IPRATROPIUM 0.5MG/ALBUTEROL 2.5MG INH SOL UD 3ML (DUONEB) NEB SCH ×3 (02:00→13:58)
[2021-05-26] MEDS: BRIMONIDINE 0.1% OPHTH SOLN 5 ML OU SCH (05:50)
[2021-05-26 06:00] VITALS: BP 126/77; O2SAT 94
[2021-05-26 06:42] LABS: BASO % 0.1 % (0.0-1.0); HEMATOCRIT 35.4 % (42.0-52.0); LYMPH # 0.6 10^3/uL (1.5-5.0); LYMPH % 5.5 % (24.0-44.0); MEAN CORPUSCULAR HEMOGLOBIN 32.2 pg (27.0-33.0); MEAN CORPUSCULAR HGB CONC 33.9 g/dl (32.0-36.5); MEAN CORPUSCULAR VOLUME 94.9 fl (80.0-96.0); MONO # 0.3 10^3/uL (0.0-0.8); MONO % 2.2 % (2.0-8.0); NEUTROPHILS # 10.3 10^3/uL (1.5-8.5); PLATELET COUNT, AUTOMATED 232 10^3/uL (150-450); RED BLOOD COUNT 3.73 10^6/uL (4.30-6.10); WHITE BLOOD COUNT 11.3 10^3/uL (4.0-10.0)
[2021-05-26 07:10] LABS: BLOOD UREA NITROGEN 19 MG/DL (7-18); CALCIUM LEVEL 9.4 MG/DL (8.8-10.2); CARBON DIOXIDE LEVEL 31 MEQ/L (21-32); CHLORIDE LEVEL 96 MEQ/L (98-107); CREATININE FOR GFR 0.76 MG/DL (0.70-1.30); GLOMERULAR FILTRATION RATE > 60.0 (>49); GLUCOSE, FASTING 206 MG/DL (70-100); MAGNESIUM LEVEL 2.3 MG/DL (1.8-2.4); POTASSIUM SERUM 3.6 MEQ/L (3.5-5.1); SODIUM LEVEL 133 MEQ/L (136-145)
[2021-05-26] MEDS ORDERED: TORSEMIDE 10 MG TABLET PO ONE (07:30)
[2021-05-26] MEDS: FORMOTEROL FUMARATE 20 MCG/2 ML INHALATION SOLUTION (PERFOROMIST) INH SCH (07:35)
[2021-05-26] MEDS: BUDESONIDE 0.5 MG/2 ML INHALATION SUSPENSION INH SCH (07:35)
[2021-05-26] MEDS: HumaLOG INSULIN (NovoLOG) PER UNIT SC SCH ×2 (08:29→12:12)
[2021-05-26] MEDS: methylPREDNISolone 40MG 1ML VIAL IV SCH (08:29)
[2021-05-26 08:30] VITALS: BP 126/77
[2021-05-26] MEDS: guaiFENesin ER 600 MG TAB PO SCH (08:30)
[2021-05-26] MEDS: DOXYCYCLINE HYCLATE 100MG TABLET PO SCH (08:30)
[2021-05-26] MEDS: DOCUSATE SODIUM 100MG CAPSULE PO SCH (08:30)
[2021-05-26] MEDS ORDERED: LACTOBACILLUS ACIDOPHILUS CAP (BACID) PO SCH (09:00)
[2021-05-26] MEDS ORDERED: ASCORBIC ACID 500 MG TAB PO SCH (09:00)
[2021-05-26] MEDS ORDERED: VITAMIN D 1,000 INTERNATIONAL UNITS TABLET PO SCH (09:00)
[2021-05-26] MEDS ORDERED: diltiaZEM **CD** 180 MG CAP PO SCH (09:00)
[2021-05-26] MEDS ORDERED: FOLIC ACID 1 MG TAB PO SCH (09:00)
[2021-05-26] MEDS ORDERED: BACTRIM 160MG/800MG DS TAB PO SCH (09:00)
[2021-05-26] MEDS ORDERED: FERROUS SULFATE 325MG TAB PO SCH (09:00)
[2021-05-26] MEDS ORDERED: OMEPRAZOLE 20 MG CAP PO SCH (09:00)
[2021-05-26] MEDS ORDERED: PRED10TA2 PO (13:36)
--- NOTE | 2021-05-26 13:53 | DS.PDOC ---
Discharge Summary General Date of Admission May 25, 2021 at 13:45 Date of Discharge 05/26/21 Attending Physician: ALTAF HILL MD Discharge Summary PROCEDURES PERFORMED DURING STAY: None. ADMITTING DIAGNOSES: #. Systolic CHF, EF of 35- 40% #. AVR, due to , s/p bovine valve in 2019, TAVR 12/25 #. HTN #. CAD s/p 13 stents, troponin chronically elevated #. Chronic hypoxia, 2LNC at rest #. PAD, s/p left femoral endarterectomy, right leg stent 2017 #. COPD/ bronchiectasis steroid dep, PCP prophylaxis on MWF #. MYKEL, no CPAP #. T2DM, NID #. Hx Covid april 27 #. Hypothyroidism #. Hearing loss #. Glaucoma #. Depression #. 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 B12 and Iron deficiency DISCHARGE DIAGNOSES: #. Systolic CHF, EF of 35- 40% #. AVR, due to , s/p bovine valve in 2019, TAVR 12/25 #. HTN #. CAD s/p 13 stents, troponin chronically elevated #. Chronic hypoxia, 2LNC at rest #. PAD, s/p left femoral endarterectomy, right leg stent 2017 #. COPD/ bronchiectasis steroid dep, PCP prophylaxis on MWF #. MYKEL, no CPAP #. T2DM, NID #. Hx Covid april 27 #. Hypothyroidism #. Hearing loss #. Glaucoma #. Depression #. 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 B12 and Iron deficiency COMPLICATIONS/CHIEF COMPLAINT: Chronic Respiratory Failure With Hypoxia. HISTORY OF PRESENT ILLNESS: Casey Velasquez, the third, is a 70 year old male with a PMHx of systolic CHF, HTN, AVR, CAD, PAD, chronically elevated troponin, chronic h ypoxia, COPD w/ Bronchiectasis, and MYKEL who presented to [facility] ED with a 24 hx of SOB. His measured a temporal temp of 100.2 at home and brought him in. AT time of presentation patient reports productive cough w/ difficulty expectorating. Patient notes new baseline ankle swelling since COVID infection 1 month prior. On day of discharge patient remarks that he feels much better and that his SOB has returned to baseline. He denies chest pain nausea, vomiting, dysuria, hematuria, hematochezia, dizziness, headache, and reports mild chest tightness. He did note coughing overnight that woke him from sleep. Reports soreness in chest from strain of using acapella and incentive spirometry. Patient noted he felt ready to return home. HOSPITAL COURSE: Patient presented to [facility] ED on May 25 due to SOB that began on the . His drove him to the ED after reading his temp temporally at 100.2. In the ED patient was satting in the high 90's at 3LNC which he notes he needs on exertion since the COVID infection, 2L had been his baseline. A CXR was performed that revealed decreases opacities in bilateral lower lobes. Patient was administered dexamethasone. Acapella and incentive spirometry was ordered. Patient was placed on strict I&O's and fluid restriction and was given a single dose of torsemide for suspicions of fluid overload. Patient noted large volumes of diuresis s/p torsemide. Patients home medications for chronic conditions were continued during stay. Blood cultures taken showed no growth and a sputum culture is still pending. Patient was found to have leukocytosis on admission which has trended down, patient had been given a single dose of TMP-SMX. On day of admission patients was called and informed of the discharge plan and it was emphasized that he reschedule his appointment with Dr. Eliud ARNOLD as he missed it due to inpatient stay, additionally the prednisone taper was explained to his over the phone. DISCHARGE MEDICATIONS: Please see below. ALLERGIES: Please see below. PHYSICAL EXAMINATION ON DISCHARGE: VITAL SIGNS: Please see below. GENERAL: Patient was sitting comfortably in a chair eating his meal, appears stated age, and was in no acute distress. HEENT: AT/NC, PERRLA, EOMI, mucous membranes moist CARDIOVASCULAR EXAMINATION: Distant heart sounds appreciated, RRR, hx of valvular replacement RESPIRATORY EXAMINATION: Upper lobes bilaterally expressed end expiratory wheezing and mild diffuse rales bilaterally. No rhonchi. ABDOMINAL EXAMINATION: Normoactive bowel sounds, soft abdomen with no tenderness or guarding. EXTREMITIES: Isolated discrete areas of ecchymosis and scabbing, no edema noted NEUROLOGICAL EXAMINATION: CN 2-12 intact, no gross focal deficits appreciated PSYCHIATRIC EXAMINATION: Mood seemed irritable, affect appropriate. LABORATORY DATA: Please see below. IMAGING: #. 05/25 CXR: "IMPRESSION: Decreased bilateral lower lobe opacities." #. 05/[address]: "IMPRESSION: 1. Advanced chronic emphysematous changes with scattered scarring and fibrosis. 2. Small amounts of superimposed bibasilar atelectasis." PROGNOSIS: Good ACTIVITY: As tolerated. DIET: As tolerated. DISCHARGE PLAN: Home with services DISCHARGE INSTRUCTIONS: - Please follow up with PCP, Cardiology and Pulmonology within 7 days. - Please remain compliant with treatment plan and medications. - Return to the ER if you experience any problems. ITEMS TO FOLLOWUP ON ON OUTPATIENT: #. Cardiology #. Pulmonology DISCHARGE CONDITION: Stable. TIME SPENT ON DISCHARGE: 31 minutes. Vital Signs/I&Os Vital Signs Date Time Temp Pulse Resp B/P (MAP) Pulse Ox O2 Delivery O2 Flow Rate FiO2 05/26/21 09:00 2.0 05/26/21 08:30 93 126/77 05/26/21 06:00 97.1 18 94 Nasal Cannula I&O- Last 24 Hours up to 6 AM 05/26/21 06:00 Intake Total 1120 ml Output Total 2900 ml Balance -1780 ml Laboratory Data Labs 24H Laboratory Tests 2 05/25/21 14:40: Lactic Acid Level 3.5*H, Procalcitonin 0.12 05/25/21 16:42: Bedside Glucose (Misc Panel) 308H 05/25/21 18:58: Lactic Acid Followup at 4 Hours 4.1*H 05/25/21 20:16: Bedside Glucose (Misc Panel) 373H 05/26/21 00:57: Lactic Acid Level 2.6*H 05/26/21 06:17: Immature Granulocyte % (Auto) 1.2, Neutrophils (%) (Auto) 91.0H, Lymphocytes (%) (Auto) 5.5L, Monocytes (%) (Auto) 2.2, Eosinophils (%) (Auto) 0.0, Basophils (%) (Auto) 0.1, Neutrophils # (Auto) 10.3H, Lymphocytes # (Auto) 0.6L, Monocytes # (Auto) 0.3, Eosinophils # (Auto) 0.0, Basophils # (Auto) 0.0, Nucleated Red Blood Cells % (auto) 0.0, Anion Gap 6L, Glomerular Filtration Rate > 60.0, Lactic Acid Followup at 4 Hours 1.5, Calcium Level 9.4, Magnesium Level 2.3, C- Reactive Protein, Quantitative 12.10H 05/26/21 11:36: Bedside Glucose (Misc Panel) 208H CBC/BMP Laboratory Tests 05/26/21 06:17 FSBS Laboratory Tests Test 05/25/21 16:42 05/25/21 20:16 05/26/21 11:36 Range/Units Bedside Glucose (Misc Panel) 308 373 208 80-115 MG/DL Microbiology Microbiology 05/25/21 Gram Stain - Final, Resulted 05/25/21 Sputum Culture, Resulted Pending 05/25/21 Respiratory Virus Panel (PCR) ([facility]) - Final, Complete 05/25/21 Blood Culture - Preliminary, Resulted No growth after 24 hours . All specim... 05/25/21 Blood Culture - Preliminary, Resulted No growth after 24 hours . All specim... Discharge Medications Scheduled Aclidinium [place] (Tudorza Pressair) 400 Mcg Aer.pow.ba, 1 PUFF INH BID, (Reported) Albuterol Sulf (Albuterol Sulfate) 2.5 Mg/3 Ml Nebu, 1 VIAL INH QID, (Reported) MIXES WITH IPRATROPIUM Ascorbic Acid (Ascorbic Acid) 500 Mg Tablet, 1,000 MG PO DAILY, (Reported) Brimonidine Tartrate (Alphagan P) 0.1% 5ML Drops, 1 DROP OU BID, (Reported) USES MORNING/DINNERTIME Budesonide (Pulmicort) 0.5 Mg/2 Ml Mely, 0.5 MG INH BID, (Reported) USED WITH PERFOROMIST, USES 30MIN AFTER ALBUTEROL/IPRATROPIUM NEB Calcium Citrate/Vitamin D3 (Calcium Citrate-Vit D3 Caplet) 1 Tab Tab, 1 TAB PO BID, (Reported) Cholecalciferol (Vitamin D3) (Vitamin D3) 1,000 Unit Tablet, 2,000 UNITS PO DAILY, (Reported) Citalopram Hydrobromide (Celexa) 20 Mg Tablet, 20 MG PO QHS, (Reported) Clopidogrel Bisulfate (Plavix) 75 Mg Tab, 75 MG PO QHS, (Reported) Famotidine (Famotidine) 40 Mg Tablet, 40 MG PO QHS, (Reported) Ferrous Sulfate (Ferrous Sulfate) 325 Mg Tab, 325 MG PO DAILY, (Reported) Fluconazole (Fluconazole) 200 Mg Tablet, 200 MG PO QWEEK, (Reported) FRIDAYS Folic Acid (Folic Acid) 1 Mg Tab, 1 MG PO DAILY, (Reported) Formoterol Fumarate (Perforomist) 20 Mcg/2 Ml Neb, 20 MCG INH BID, (Reported) USED WITH PULMICORT, USES 30MIN AFTER ALBUTEROL/IPRATROPIUM NEB Glimepiride (Glimepiride) 4 Mg Tablet, 4 MG PO BID, (Reported) Guaifenesin (Mucinex) 600 Mg Tab.er.12h, 600 MG PO BID, (Reported) Ibandronate Sodium (Boniva) 150 Mg Tablet, 150 MG PO QMONTH, (Reported) TAKES ON 10TH OF EACH MONTH Immun Glob G(IgG)/Pro/Iga 0-50 (Hizentra 1 Gram/5 ml Vial) 1 Gm/5 Ml Vial, 14 MG SC QWEEK, (Reported) SATURDAYS Ipratropium [place] (Ipratropium [place]) 0.5 Mg/2.5 Ml Soln, 0.5 MG INH QID, (Reported) MIXES WITH ALBUTEROL L.acidoph/L.bulg/B.bif/S.therm (Bacid Caplet) 1 Each Tablet, 1 TAB PO DAILY, (Reported) Levothyroxine Sodium (Levothyroxine Sodium) 50 Mcg Tablet, 50 MCG PO QHS, (Reported) Metformin HCl (Metformin HCl) 500 Mg Tab, 500 MG PO TID, (Reported) Montelukast Sodium (Singulair) 10 Mg Tab, 10 MG PO QHS, (Reported) Omeprazole (Omeprazole) 40 Mg Cap, 40 MG PO DAILY, (Reported) Pitavastatin Calcium (Livalo) 2 Mg Tablet, 2 MG PO QHS, (Reported) Prednisone (Prednisone) 10 Mg Tablet, 20 MG PO DAILY, (Reported) Prednisone (Prednisone) 10 Mg Tablet, 10 MG PO TAPER Take 4 tabs daily x 3 days, then 3 tabs daily x 3 days, then return to home dose Sulfamethoxazole/Trimethoprim (Bactrim Ds Tablet) 1 Each Tablet, 1 TAB PO 3XW, (Reported) MON/WED/FRI Travoprost (Travatan Z) 50 Drop/2.5 Ml Soln, 1 DROP OU QHS, (Reported) Vitamin B Complex (Vitamin B Complex) 1 Each Tablet, 1 TAB PO DAILY, (Reported) Zinc (Zinc) 50 Mg Tablet, 50 MG PO DAILY, (Reported) dilTIAZem HCl (Diltiazem 24Hr Cd) 180 Mg Cap.er.24h, 180 MG PO DAILY, (Reported) Scheduled PRN Nitroglycerin (Nitrostat) 0.4 Mg Subl, 0.4 MG SL NITRO PRN for CHEST PAIN, (Reported) Allergies Coded Allergies: fexofenadine (Verified Allergy, Severe, anaphylaxis, 05/25/21) quinidine (Verified Allergy, Intermediate, HIVES, 05/25/21) metoprolol (Verified Adverse Reaction, Intermediate, d/t lung condition, 05/25/21) pravastatin (Verified Adverse Reaction, Intermediate, MUSCLE WEAKNESS, 05/25/21) aspirin (Verified Adverse Reaction, Mild, RECTAL BLEEDING, 05/25/21) furosemide (Verified Adverse Reaction, Mild, dizziness, 05/25/21) levofloxacin (Verified Adverse Reaction, Mild, MUSCLE CRAMPING, 05/25/21) GME ATTESTATION GME ATTESTATION My faculty preceptor for this patient encounter was physically present during the encounter and was fully available. All aspects of the patient interview, examination, medical decision making process, and medical care plan development were reviewed and approved by the faculty preceptor. The faculty preceptor is aware and concurs with the plan as stated in the body of this note and will attest to such by his/her cosignature. ATTENDING NOTE I, Altaf Hill, have independently examined this patient and performed my own physical exam, and verified the medical students physical exam. The documentation (including HPI and medical decision making) above has been verified and edited where necessary with the student. I have discussed in detail with the student the findings and plan of treatment as documented by the student and edited their note. I will continue to follow the patient during this hospital stay. LOUISE FABIAN S-3 May 26, 2021 13:53 ALTAF HILL MD May 26, 2021 17:29
[2021-05-26 14:00] VITALS: BP 116/73
[2021-05-26] MEDS ORDERED: DOXY100T PO (17:31)
--- NOTE | 2021-05-27 08:54 | ECHO ---
ECHOCARDIOGRAM DATE OF PROCEDURE: 05/26/2021 Age: Gender: M Height: 173 cm Weight: 65 kg REFERRING PHYSICIAN: Dr. Altaf Hill INDICATION: Dyspnea. MEASUREMENTS: IVS: 1.1 LV: 5.5 LVPW: 1.2 LA: 3.6 Aorta: 3.9 Left atrial volume index: 36 IVC: 1.2 Ascending aorta: 4.3 Mitral E wave velocity is 81; A wave 136 E prime septal: 7.7 E prime lateral: 11.5 FINDINGS: The study is of fair technical quality. Underlying sinus rhythm. Apparently, patient was poorly cooperative with the exam. Left ventricle is at the upper limits of normal size. Mild left ventricular hypertrophy is noted. Normal left ventricular (LV) systolic function with estimated ejection fraction (EF) around 60%. Right ventricle also appears normal size and systolic function. Left atrium is mildly enlarged. Right atrium appears grossly normal based on limited views. There is a bioprosthetic valve in aortic position which was poorly visualized and I cannot comment on its structure. Mitral valve exhibits degenerative abnormalities with normal leaflet mobility. Tricuspid valve appears normal. Pulmonic valve was not well seen. No pericardial effusion is noted. Inferior vena cava is normal size. Aortic root is borderline dilated at 3.9 and ascending aorta at 4.3 cm. Aortic arch and abdominal aorta were not well seen. Doppler interrogation of aortic valve reveals no insufficiency and mean gradient 16 mmHg, which would be considered within normal limits. Mitral and tricuspid valves are functionally competent. Mitral inflow pattern and tissue Doppler imaging of mitral annulus revealed grade 1 diastolic dysfunction. CONCLUSIONS: 1. Study is of acceptable technical quality; underlying sinus rhythm. 2. Normal left ventricle (LV) size with mild left ventricular hypertrophy (LVH) and preserved left ventricular (LV) systolic function. Grade 1 diastolic dysfunction. 3. Poorly visualized but functionally normal bioprosthesis in aortic position (no insufficiency, mean gradient 16 mmHg). 4. No additional valvular disease. 5. Normal central venous pressure. 6. Unable to estimate pulmonary artery pressure. 7. Dilated ascending aorta (4.3 cm).
[2021-05-30] MEDS ORDERED: FLUCONAZOLE 100 MG TAB PO SCH (09:00)
== END 2021-05-26 16:50 | disposition home health service (06) ==
LOC: M ED 08:48 → M ED INP 13:45 → ENRESERV 14:01 → M MS5PR 15:15
PROVIDERS: ADMIT Internal Medicine; ATTEND Internal Medicine
DX: R09.02 Hypoxemia (principal); I50.20 Unspecified systolic (congestive) heart failure; I11.9 Hypertensive heart disease without heart failure; Z95.3 Presence of xenogenic heart valve; I25.10 Atherosclerotic heart disease of native coronary artery without angina pectoris; Z95.5 Presence of coronary angioplasty implant and graft; R74.8 Abnormal levels of other serum enzymes; Z99.81 Dependence on supplemental oxygen; J44.9 Chronic obstructive pulmonary disease, unspecified; G47.33 Obstructive sleep apnea (adult) (pediatric); E11.51 Type 2 diabetes mellitus with diabetic peripheral angiopathy without gangrene; Z86.16 Personal history of COVID-19; E03.9 Hypothyroidism, unspecified; H40.9 Unspecified glaucoma; H91.90 Unspecified hearing loss, unspecified ear; F32.9 Major depressive disorder, single episode, unspecified; D50.9 Iron deficiency anemia, unspecified; E53.8 Deficiency of other specified B group vitamins; R06.02 Shortness of breath; R60.0 Localized edema; E87.2 Acidosis; D83.9 Common variable immunodeficiency, unspecified; K21.9 Gastro-esophageal reflux disease without esophagitis; M81.0 Age-related osteoporosis without current pathological fracture; Z88.8 Allergy status to other drugs, medicaments and biological substances; Z88.6 Allergy status to analgesic agent; Z88.1 Allergy status to other antibiotic agents; Z79.899 Other long term (current) drug therapy; Z79.51 Long term (current) use of inhaled steroids; Z79.52 Long term (current) use of systemic steroids; Z79.02 Long term (current) use of antithrombotics/antiplatelets; Z79.84 Long term (current) use of oral hypoglycemic drugs; Z87.891 Personal history of nicotine dependence
CPT/HCPCS: 36415; 71045; 71250; 80048; 80076; 83605; 83735; 83880; 84145; 84484; 85025; 86140; 87040; 87070; 87077; 87205; 87798; 93005; 93041; 93306; 94640; 94760; 96372; 96374; 96375; 96376; 99285; G0378; J1100; J1650; J2920; J7606

== ENCOUNTER → 2021-06-09 | Outpatient (REF) | payer MEDICARE, OTHER ==
[~2021-06-09] MED LIST changes: -CEFD1CAP8 PO; +DILT180C70 PO; -MONT10TA10 PO; +MONT10TA97 PO
[2021-06-09 14:10] LABS: APPEARANCE, URINE CLEAR (CLEAR); BACTERIA, URINE AUTO NEGATIVE (NEGATIVE); BILIRUBIN, URINE AUTO NEGATIVE (NEGATIVE); BLOOD, URINE BLOOD NEGATIVE (NEGATIVE); COLOR, URINE YELLOW (YELLOW); GLUCOSE, URINE (UA) AUTO NEGATIVE (NEGATIVE); KETONE, URINE AUTO NEGATIVE (NEGATIVE); LEUKOCYTE ESTERASE, URINE AUTO NEGATIVE (NEGATIVE); NITRITE, URINE AUTO NEGATIVE (NEGATIVE); PROTEIN, URINE AUTO NEGATIVE (NEGATIVE); RBC, URINE AUTO 11 /HPF (0-3); SPECIFIC GRAVITY URINE AUTO 1.009 (1.002-1.035); SQUAMOUS EPITHELIAL CELL UR AU 0 /HPF (0-6); UROBILINOGEN, URINE AUTO 0.2 mg/dL (0.0-2.0); WBC, URINE AUTO 0 /HPF (0-3)
== END ==
LOC: M SMT 13:03
PROVIDERS: ATTEND Urology
DX: R30.0 Dysuria (principal)

== ENCOUNTER 2021-08-20 08:14 | Inpatient (IN) | payer MEDICARE, OTHER ==
[~2021-08-20] VITALS: Ht 172.7 cm; Wt 68.9 kg
[~2021-08-20 08:14] MED LIST changes: -D31000TA2 PO; -FLUC200T2 PO; +FLUC200T4 PO; +VITA100093 PO
[2021-08-20] MEDS ORDERED: ALBUTEROL SULFATE 2.5 MG/0.5 ML INH NEB SOLN INH ONE (08:25)
[2021-08-20] MEDS ORDERED: IPRATROPIUM 0.5MG/ALBUTEROL 2.5MG INH SOL UD 3ML (DUONEB) NEB ONE (08:25)
[2021-08-20 08:57] LABS: ABG BASE EXCESS -3.3 (-2.0-2.0); ABG HCO3 21.2 MEQ/L (22.0-26.0); ABG O2 SATURATION 98.4 % (95.0-99.0); ABG PARTIAL PRESSURE CO2 36.1 mmHg (35.0-45.0); ABG PARTIAL PRESSURE O2 136.6 mmHg (75.0-100.0); ABG STANDARD HCO3 21.8 MEQ/L (22.0-26.0); ABG TOTAL CO2 22.3 MEQ/L (23.0-31.0); ABG pH (ARTERIAL) 7.386 UNITS (7.350-7.450)
[2021-08-20] MEDS: LACTOBACILLUS ACIDOPHILUS CAP (BACID) PO SCH ×2 (09:00→15:13)
[2021-08-20] MEDS: FOLIC ACID 1 MG TAB PO SCH ×2 (09:00→15:14)
[2021-08-20] MEDS: OMEPRAZOLE 20MG CAP PO SCH ×2 (09:00→15:12)
[2021-08-20] MEDS: FERROUS SULFATE 325MG TAB PO SCH ×2 (09:00→15:15)
[2021-08-20 09:22] LABS: BASO % 0.4 % (0.0-1.0); EOS # 0.2 10^3/uL (0.0-0.5); EOS % 1.5 % (0.0-3.0); HEMATOCRIT 39.2 % (42.0-52.0); HEMOGLOBIN 12.9 g/dl (13.5-17.5); LYMPH # 0.7 10^3/uL (1.5-5.0); LYMPH % 6.3 % (24.0-44.0); MEAN CORPUSCULAR HEMOGLOBIN 31.1 pg (27.0-33.0); MEAN CORPUSCULAR HGB CONC 32.9 g/dl (32.0-36.5); MEAN CORPUSCULAR VOLUME 94.5 fl (80.0-96.0); MONO # 0.7 10^3/uL (0.0-0.8); MONO % 5.8 % (2.0-8.0); NEUTROPHILS # 9.7 10^3/uL (1.5-8.5); NEUTROPHILS % 85.3 % (36.0-66.0); PLATELET COUNT, AUTOMATED 281 10^3/uL (150-450); RED BLOOD COUNT 4.15 10^6/uL (4.30-6.10); WHITE BLOOD COUNT 11.4 10^3/uL (4.0-10.0)
[2021-08-20 09:57] LABS: ALBUMIN 3.4 GM/DL (3.2-5.2); ALT/SGPT 27 U/L (12-78); BILIRUBIN,DIRECT 0.1 MG/DL (0.0-0.2); BILIRUBIN,TOTAL 0.2 MG/DL (0.2-1.0); BLOOD UREA NITROGEN 23 MG/DL (7-18); CARBON DIOXIDE LEVEL 29 MEQ/L (21-32); CHLORIDE LEVEL 102 MEQ/L (98-107); CREATININE FOR GFR 0.71 MG/DL (0.70-1.30); GLOMERULAR FILTRATION RATE > 60.0 (>49); GLUCOSE, FASTING 43 MG/DL (70-100); NT-PRO BNP 448 PG/ML (<125); POTASSIUM SERUM 4.2 MEQ/L (3.5-5.1); SODIUM LEVEL 139 MEQ/L (136-145); THYROID STIMULATING HORMONE 0.865 uIU/ML (0.358-3.740); TOTAL PROTEIN 6.8 GM/DL (6.4-8.2)
[2021-08-20] MEDS ORDERED: DEXTROSE 50% 50 ML SYRINGE IV STA ×2 (10:15→10:20)
[2021-08-20] MEDS ORDERED: DEXTROSE 50% 50 ML SYRINGE As Ordered ONE (10:16)
[2021-08-20] MEDS ORDERED: [UNRECOGNIZED DRUG - CODE] PO (11:04)
[2021-08-20] MEDS ORDERED: CIPR-249 PO (11:04)
[2021-08-20] MEDS ORDERED: CEFD300C41 PO (11:04)
[2021-08-20] MEDS ORDERED: HOME MED LIST COMPLETE! XX SCH (11:05)
[2021-08-20] MEDS ORDERED: GLUCOSE 4GM CHEW TABLET PO PRN (12:15)
[2021-08-20] MEDS ORDERED: NITROGLYCERIN 0.4 MG SUBL TABLET SL PRN (12:15)
[2021-08-20] MEDS ORDERED: DEXTROSE 50% 50 ML SYRINGE IV PRN (12:15)
[2021-08-20] MEDS ORDERED: ACETAMINOPHEN TAB 650MG DOSE (2X325MG) PO PRN (12:15)
[2021-08-20] MEDS ORDERED: ALBUTEROL SULFATE 2.5 MG/0.5 ML INH NEB SOLN NEB PRN (12:15)
[2021-08-20] MEDS ORDERED: MOM 30ML SUSPENSION UDC PO PRN (12:15)
[2021-08-20] MEDS ORDERED: GLUCAGON INJ 1MG VIAL SC PRN (12:15)
[2021-08-20] MEDS ORDERED: IPRATROPIUM 0.02% SOLN 0.5MG 2.5ML NEB INH SCH (13:00)
[2021-08-20] MEDS: ASCORBIC ACID 500 MG TAB PO SCH ×2 (13:34→15:13)
[2021-08-20 14:00] VITALS: BP 124/83
[2021-08-20] MEDS: IPRATROPIUM 0.5MG/ALBUTEROL 2.5MG INH SOL UD 3ML (DUONEB) NEB SCH ×2 (14:00→20:08)
[2021-08-20] MEDS: methylPREDNISolone 125MG 2ML VIAL IV SCH ×2 (15:12→22:15)
[2021-08-20] MEDS: BACTRIM 160MG/800MG DS TAB PO SCH (15:12)
[2021-08-20] MEDS: VITAMIN D 1,000 INTERNATIONAL UNITS TABLET PO SCH (15:13)
[2021-08-20] MEDS: diltiaZEM **CD** 180 MG CAP PO SCH (15:15)
[2021-08-20] MEDS: HumaLOG INSULIN (NovoLOG) PER UNIT SC SCH ×2 (18:06→22:13)
[2021-08-20] MEDS: BRIMONIDINE 0.1% OPHTH SOLN 5 ML OU SCH (18:09)
[2021-08-20] MEDS: FORMOTEROL FUMARATE 20 MCG/2 ML INHALATION SOLUTION (PERFOROMIST) INH SCH (20:00)
[2021-08-20] MEDS: BUDESONIDE 0.5 MG/2 ML INHALATION SUSPENSION INH SCH (20:08)
[2021-08-20] MEDS ORDERED: ENTER DRUG NAME HERE (PATIENT'S OWN MED) INH SCH (21:00)
[2021-08-20 22:00] VITALS: BP 159/74
[2021-08-20] MEDS: MONTELUKAST 10 MG TAB PO SCH (22:10)
[2021-08-20] MEDS: FAMOTIDINE 20 MG TAB PO SCH (22:10)
[2021-08-20] MEDS: guaiFENesin ER 600 MG TAB PO SCH (22:11)
[2021-08-20] MEDS: CitaloPRAM (CeleXA) 20 MG TAB PO SCH (22:11)
[2021-08-20] MEDS: CALCIUM/VITAMIN D 500 MG TAB PO SCH (22:12)
[2021-08-20] MEDS: LEVOTHYROXINE 50MCG TABLET (0.05MG) PO SCH (22:12)
[2021-08-20] MEDS: CLOPIDOGREL 75 MG TAB PO SCH (22:12)
[2021-08-20] MEDS: LATANOPROST 0.005% OPHTH SOLN 2.5 ML OU SCH (22:14)
[2021-08-20] MEDS: ENOXAPARIN 40MG/0.4ML SYRINGE (J1650 PER 10MG) SC SCH (22:15)
[2021-08-21] MEDS: IPRATROPIUM 0.5MG/ALBUTEROL 2.5MG INH SOL UD 3ML (DUONEB) NEB SCH ×4 (01:09→17:50)
[2021-08-21 06:00] VITALS: BP 152/73
[2021-08-21 06:22] LABS: HEMATOCRIT 35.8 % (42.0-52.0); HEMOGLOBIN 12.3 g/dl (13.5-17.5); MEAN CORPUSCULAR HEMOGLOBIN 31.6 pg (27.0-33.0); MEAN CORPUSCULAR HGB CONC 34.4 g/dl (32.0-36.5); PLATELET COUNT, AUTOMATED 294 10^3/uL (150-450); RED BLOOD COUNT 3.89 10^6/uL (4.30-6.10); WHITE BLOOD COUNT 7.8 10^3/uL (4.0-10.0)
[2021-08-21 06:52] LABS: BLOOD UREA NITROGEN 18 MG/DL (7-18); CALCIUM LEVEL 9.1 MG/DL (8.8-10.2); CARBON DIOXIDE LEVEL 28 MEQ/L (21-32); CHLORIDE LEVEL 99 MEQ/L (98-107); CREATININE FOR GFR 0.77 MG/DL (0.70-1.30); GLOMERULAR FILTRATION RATE > 60.0 (>49); GLUCOSE, FASTING 203 MG/DL (70-100); MAGNESIUM LEVEL 2.2 MG/DL (1.8-2.4); POTASSIUM SERUM 4.3 MEQ/L (3.5-5.1); SODIUM LEVEL 134 MEQ/L (136-145)
[2021-08-21] MEDS: methylPREDNISolone 125MG 2ML VIAL IV SCH ×2 (07:05→20:07)
[2021-08-21] MEDS: TIOTROPIUM INHALER/CAPSULE (SPIRIVA) INH SCH (07:40)
[2021-08-21] MEDS: BUDESONIDE 0.5 MG/2 ML INHALATION SUSPENSION INH SCH ×2 (08:00→17:50)
[2021-08-21] MEDS: FORMOTEROL FUMARATE 20 MCG/2 ML INHALATION SOLUTION (PERFOROMIST) INH SCH ×2 (08:00→17:50)
[2021-08-21] MEDS ORDERED: PITAVASTATIN 2 MG PO SCH (09:00)
[2021-08-21] MEDS: HumaLOG INSULIN (NovoLOG) PER UNIT SC SCH ×4 (10:14→20:10)
[2021-08-21] MEDS: LACTOBACILLUS ACIDOPHILUS CAP (BACID) PO SCH (10:15)
[2021-08-21] MEDS: VITAMIN D 1,000 INTERNATIONAL UNITS TABLET PO SCH (10:15)
[2021-08-21] MEDS: ASCORBIC ACID 500 MG TAB PO SCH (10:15)
[2021-08-21] MEDS: FOLIC ACID 1 MG TAB PO SCH (10:15)
[2021-08-21] MEDS: OMEPRAZOLE 20MG CAP PO SCH (10:15)
[2021-08-21] MEDS: diltiaZEM **CD** 180 MG CAP PO SCH (10:17)
[2021-08-21] MEDS: FERROUS SULFATE 325MG TAB PO SCH (10:18)
[2021-08-21] MEDS: CALCIUM/VITAMIN D 500 MG TAB PO SCH ×2 (10:18→20:10)
[2021-08-21] MEDS: guaiFENesin ER 600 MG TAB PO SCH ×2 (10:18→20:09)
[2021-08-21] MEDS: BRIMONIDINE 0.1% OPHTH SOLN 5 ML OU SCH ×2 (10:19→17:03)
[2021-08-21 14:00] VITALS: BP 101/70
[2021-08-21] MEDS: ENOXAPARIN 40MG/0.4ML SYRINGE (J1650 PER 10MG) SC SCH (20:07)
[2021-08-21] MEDS: MONTELUKAST 10 MG TAB PO SCH (20:08)
[2021-08-21] MEDS: LATANOPROST 0.005% OPHTH SOLN 2.5 ML OU SCH (20:08)
[2021-08-21] MEDS: CLOPIDOGREL 75 MG TAB PO SCH (20:09)
[2021-08-21] MEDS: FAMOTIDINE 20 MG TAB PO SCH (20:09)
[2021-08-21] MEDS: LEVOTHYROXINE 50MCG TABLET (0.05MG) PO SCH (20:09)
[2021-08-21] MEDS: CitaloPRAM (CeleXA) 20 MG TAB PO SCH (20:09)
[2021-08-21 21:39] VITALS: BP 113/70
[2021-08-22] MEDS: IPRATROPIUM 0.5MG/ALBUTEROL 2.5MG INH SOL UD 3ML (DUONEB) NEB SCH ×4 (01:38→19:30)
[2021-08-22 05:28] VITALS: BP 119/70
[2021-08-22 06:54] LABS: HEMATOCRIT 34.8 % (42.0-52.0); HEMOGLOBIN 11.9 g/dl (13.5-17.5); MEAN CORPUSCULAR HEMOGLOBIN 31.6 pg (27.0-33.0); MEAN CORPUSCULAR HGB CONC 34.2 g/dl (32.0-36.5); MEAN CORPUSCULAR VOLUME 92.3 fl (80.0-96.0); PLATELET COUNT, AUTOMATED 295 10^3/uL (150-450); RED BLOOD COUNT 3.77 10^6/uL (4.30-6.10); WHITE BLOOD COUNT 11.1 10^3/uL (4.0-10.0)
[2021-08-22 07:20] LABS: BLOOD UREA NITROGEN 24 MG/DL (7-18); CALCIUM LEVEL 9.4 MG/DL (8.8-10.2); CARBON DIOXIDE LEVEL 29 MEQ/L (21-32); CHLORIDE LEVEL 102 MEQ/L (98-107); CREATININE FOR GFR 0.78 MG/DL (0.70-1.30); GLOMERULAR FILTRATION RATE > 60.0 (>49); GLUCOSE, FASTING 242 MG/DL (70-100); POTASSIUM SERUM 4.3 MEQ/L (3.5-5.1); SODIUM LEVEL 139 MEQ/L (136-145)
[2021-08-22] MEDS: HumaLOG INSULIN (NovoLOG) PER UNIT SC SCH ×4 (08:00→21:28)
[2021-08-22] MEDS: FORMOTEROL FUMARATE 20 MCG/2 ML INHALATION SOLUTION (PERFOROMIST) INH SCH ×2 (08:00→19:30)
[2021-08-22] MEDS: methylPREDNISolone 125MG 2ML VIAL IV SCH ×2 (08:00→21:28)
[2021-08-22] MEDS: diltiaZEM **CD** 180 MG CAP PO SCH (08:01)
[2021-08-22] MEDS: ASCORBIC ACID 500 MG TAB PO SCH (08:01)
[2021-08-22] MEDS: OMEPRAZOLE 20MG CAP PO SCH (08:01)
[2021-08-22] MEDS: FERROUS SULFATE 325MG TAB PO SCH (08:02)
[2021-08-22] MEDS: BACTRIM 160MG/800MG DS TAB PO SCH (08:02)
[2021-08-22] MEDS: LACTOBACILLUS ACIDOPHILUS CAP (BACID) PO SCH (08:02)
[2021-08-22] MEDS: guaiFENesin ER 600 MG TAB PO SCH ×2 (08:02→21:27)
[2021-08-22] MEDS: FOLIC ACID 1 MG TAB PO SCH (08:02)
[2021-08-22] MEDS: VITAMIN D 1,000 INTERNATIONAL UNITS TABLET PO SCH (08:02)
[2021-08-22] MEDS: CALCIUM/VITAMIN D 500 MG TAB PO SCH ×2 (08:02→21:27)
[2021-08-22] MEDS: BRIMONIDINE 0.1% OPHTH SOLN 5 ML OU SCH ×2 (08:03→17:13)
[2021-08-22] MEDS: TIOTROPIUM INHALER/CAPSULE (SPIRIVA) INH SCH (08:18)
[2021-08-22] MEDS: BUDESONIDE 0.5 MG/2 ML INHALATION SUSPENSION INH SCH ×2 (08:19→19:30)
[2021-08-22 14:00] VITALS: BP 134/80
[2021-08-22] MEDS: CitaloPRAM (CeleXA) 20 MG TAB PO SCH (21:27)
[2021-08-22] MEDS: CLOPIDOGREL 75 MG TAB PO SCH (21:27)
[2021-08-22] MEDS: FAMOTIDINE 20 MG TAB PO SCH (21:27)
[2021-08-22] MEDS: LEVOTHYROXINE 50MCG TABLET (0.05MG) PO SCH (21:27)
[2021-08-22] MEDS: MONTELUKAST 10 MG TAB PO SCH (21:28)
[2021-08-22] MEDS: ENOXAPARIN 40MG/0.4ML SYRINGE (J1650 PER 10MG) SC SCH (21:28)
[2021-08-22] MEDS: LATANOPROST 0.005% OPHTH SOLN 2.5 ML OU SCH (21:28)
[2021-08-22 22:00] VITALS: BP 139/75
[2021-08-23] MEDS: IPRATROPIUM 0.5MG/ALBUTEROL 2.5MG INH SOL UD 3ML (DUONEB) NEB SCH ×3 (01:18→14:13)
[2021-08-23 06:00] VITALS: BP 121/86
[2021-08-23 06:17] LABS: HEMATOCRIT 34.3 % (42.0-52.0); HEMOGLOBIN 11.8 g/dl (13.5-17.5); MEAN CORPUSCULAR HEMOGLOBIN 31.9 pg (27.0-33.0); MEAN CORPUSCULAR HGB CONC 34.4 g/dl (32.0-36.5); MEAN CORPUSCULAR VOLUME 92.7 fl (80.0-96.0); PLATELET COUNT, AUTOMATED 304 10^3/uL (150-450); WHITE BLOOD COUNT 13.9 10^3/uL (4.0-10.0)
[2021-08-23 06:42] LABS: BLOOD UREA NITROGEN 25 MG/DL (7-18); CALCIUM LEVEL 9.6 MG/DL (8.8-10.2); CARBON DIOXIDE LEVEL 30 MEQ/L (21-32); CHLORIDE LEVEL 100 MEQ/L (98-107); CREATININE FOR GFR 0.77 MG/DL (0.70-1.30); GLOMERULAR FILTRATION RATE > 60.0 (>49); GLUCOSE, FASTING 241 MG/DL (70-100); POTASSIUM SERUM 4.2 MEQ/L (3.5-5.1); SODIUM LEVEL 138 MEQ/L (136-145)
[2021-08-23 07:36] VITALS: BP 145/83
[2021-08-23] MEDS: FORMOTEROL FUMARATE 20 MCG/2 ML INHALATION SOLUTION (PERFOROMIST) INH SCH (08:00)
[2021-08-23] MEDS: BUDESONIDE 0.5 MG/2 ML INHALATION SUSPENSION INH SCH (08:25)
[2021-08-23] MEDS: TIOTROPIUM INHALER/CAPSULE (SPIRIVA) INH SCH (08:25)
[2021-08-23] MEDS: HumaLOG INSULIN (NovoLOG) PER UNIT SC SCH ×2 (08:57→13:12)
[2021-08-23] MEDS: OMEPRAZOLE 20MG CAP PO SCH (08:58)
[2021-08-23] MEDS: VITAMIN D 1,000 INTERNATIONAL UNITS TABLET PO SCH (08:58)
[2021-08-23] MEDS: ASCORBIC ACID 500 MG TAB PO SCH (08:58)
[2021-08-23] MEDS: LACTOBACILLUS ACIDOPHILUS CAP (BACID) PO SCH (08:58)
[2021-08-23 08:59] VITALS: BP 143/84
[2021-08-23] MEDS: diltiaZEM **CD** 180 MG CAP PO SCH (08:59)
[2021-08-23] MEDS: FERROUS SULFATE 325MG TAB PO SCH (09:00)
[2021-08-23] MEDS: FOLIC ACID 1 MG TAB PO SCH (09:00)
[2021-08-23] MEDS: guaiFENesin ER 600 MG TAB PO SCH (09:00)
[2021-08-23] MEDS: CALCIUM/VITAMIN D 500 MG TAB PO SCH (09:00)
[2021-08-23] MEDS ORDERED: predniSONE 20 MG TAB PO SCH (09:00)
[2021-08-23] MEDS: BRIMONIDINE 0.1% OPHTH SOLN 5 ML OU SCH (09:01)
[2021-08-23] MEDS ORDERED: PRED10TA2 PO ×2 (10:13→12:35)
[2021-08-23 14:30] VITALS: BP 118/78
== END 2021-08-23 15:11 | disposition home health service (06) | DRG 191 ==
LOC: EDBD 08:14 → M ED 08:14 → M ED INP 12:14 → ENRESERV 13:38 → M MSPAV 14:09
PROVIDERS: ADMIT Internal Medicine; ATTEND Internal Medicine
DX: J44.1 Chronic obstructive pulmonary disease with (acute) exacerbation (principal); I50.22 Chronic systolic (congestive) heart failure; D83.9 Common variable immunodeficiency, unspecified; I25.10 Atherosclerotic heart disease of native coronary artery without angina pectoris; G47.33 Obstructive sleep apnea (adult) (pediatric); I11.0 Hypertensive heart disease with heart failure; E11.51 Type 2 diabetes mellitus with diabetic peripheral angiopathy without gangrene; E03.9 Hypothyroidism, unspecified; H40.9 Unspecified glaucoma; F32.A Depression, unspecified; E53.8 Deficiency of other specified B group vitamins; E61.1 Iron deficiency; J45.909 Unspecified asthma, uncomplicated; M80.08XD Age-related osteoporosis with current pathological fracture, vertebra(e), subsequent encounter for fracture with routine healing; Z66 Do not resuscitate; B34.1 Enterovirus infection, unspecified; K21.9 Gastro-esophageal reflux disease without esophagitis; B34.8 Other viral infections of unspecified site; J06.9 Acute upper respiratory infection, unspecified; Z99.81 Dependence on supplemental oxygen; Z95.5 Presence of coronary angioplasty implant and graft; Z95.3 Presence of xenogenic heart valve; Z95.820 Peripheral vascular angioplasty status with implants and grafts; Z88.8 Allergy status to other drugs, medicaments and biological substances; Z86.16 Personal history of COVID-19; Z87.891 Personal history of nicotine dependence; Z79.1 Long term (current) use of non-steroidal anti-inflammatories (NSAID); Z79.84 Long term (current) use of oral hypoglycemic drugs; Z79.02 Long term (current) use of antithrombotics/antiplatelets; Z79.52 Long term (current) use of systemic steroids; Z79.899 Other long term (current) drug therapy; Z88.1 Allergy status to other antibiotic agents; Z88.6 Allergy status to analgesic agent; H91.90 Unspecified hearing loss, unspecified ear

== ENCOUNTER 2021-09-22 13:44 | Outpatient (CLI) | payer MEDICARE, OTHER ==
[~2021-09-22] VITALS: Ht 172.7 cm; Wt 62.7 kg
[~2021-09-22 13:44] MED LIST changes: +ALBUTEROL SULFATE (2.5MG/0.5ML) NEB INH PRN; +BENZ1LOZ10 PO; -CEPA1LOZ2 PO; +EPINEPHrine (1MG/ML) IV IM PRN; +FAMOTIDINE 20MG IVP IV PRN; +NS 1,000 ML IV PRN; +TUDO1AER2 INH; -TUDO1AER3 INH; +[UNRECOGNIZED DRUG - CODE] PO; +diphenhydrAMINE (50MG/ML) IV IV PRN; +methylPREDNISolone (125 MG/2 ML) IV IV PRN
[2021-09-22 13:45] VITALS: BP 131/79
[2021-09-22] MEDS ORDERED: TIXAGEVIMAB/CILGAVIMAB (EVUSHELD) 150MG-150MG 3ML VIAL (EUA) IM NO SITE ONE (14:00)
[2021-09-22 15:30] VITALS: BP 147/70
== END 2021-09-22 15:30 | disposition home or self-care (01) ==
LOC: M INFU 13:44
PROVIDERS: ATTEND Internal Medicine Pulmonary Disease
DX: J44.9 Chronic obstructive pulmonary disease, unspecified (principal); Z79.51 Long term (current) use of inhaled steroids

== ENCOUNTER → 2022-01-09 | Outpatient (CLI) | payer MEDICARE, OTHER ==
[~2022-01-09] MED LIST changes: +ALBU2.5V10 INH; -ALBU83IN INH; -ALBUTEROL SULFATE (2.5MG/0.5ML) NEB INH PRN; -EPINEPHrine (1MG/ML) IV IM PRN; -FAMOTIDINE 20MG IVP IV PRN; -NS 1,000 ML IV PRN; +SIMV-253 PO; -ZOCO20TA PO; -diphenhydrAMINE (50MG/ML) IV IV PRN; -methylPREDNISolone (125 MG/2 ML) IV IV PRN
== END ==
LOC: M RAD 10:58
PROVIDERS: ATTEND Surgery Vascular Surgery
DX: I70.213 Atherosclerosis of native arteries of extremities with intermittent claudication, bilateral legs (principal)

== ENCOUNTER → 2022-02-05 | Outpatient (CLI) | payer MEDICARE, OTHER | LOC: M WUC 10:15 | PROVIDERS: ATTEND Physician Assistant | DX: J44.1 Chronic obstructive pulmonary disease with (acute) exacerbation (principal); R06.02 Shortness of breath ==

== ENCOUNTER → 2022-05-11 | Outpatient (REF) | payer MEDICARE, OTHER ==
[~2022-05-11] MED LIST changes: +CLOP75TA99 PO; -PLAV1TAB2 PO
== END ==
LOC: M LAB REF 16:27
PROVIDERS: ATTEND Podiatrist
DX: L03.032 Cellulitis of left toe (principal); M79.672 Pain in left foot

== ENCOUNTER 2022-07-09 08:57 | Inpatient (IN) | payer MEDICARE, OTHER ==
[~2022-07-09] VITALS: Ht 172.7 cm; Wt 62.5 kg
[~2022-07-09 08:57] MED LIST changes: +NYST-38 SSP; -NYST50SS SSP
[2022-07-09] MEDS ORDERED: ALBUTEROL SULFATE 2.5MG/0.5ML INH NEB SOLN INH ONE (09:25)
[2022-07-09] MEDS ORDERED: IPRATROPIUM 0.5MG/ALBUTEROL 2.5MG INH SOL UD 3ML (DUONEB) NEB ONE (09:25)
[2022-07-09 09:29] LABS: ABG BASE EXCESS 6.3 (-2.0-2.0); ABG HCO3 30.7 MEQ/L (22.0-26.0); ABG O2 SATURATION 96.3 % (95.0-99.0); ABG PARTIAL PRESSURE CO2 43.4 mmHg (35.0-45.0); ABG PARTIAL PRESSURE O2 86.7 mmHg (75.0-100.0); ABG STANDARD HCO3 30.2 MEQ/L (22.0-26.0); ABG pH (ARTERIAL) 7.467 UNITS (7.350-7.450)
[2022-07-09 09:37] LABS: BASO % 0.2 % (0.0-1.0); EOS # 0.2 10^3/uL (0.0-0.5); EOS % 1.4 % (0.0-3.0); HEMOGLOBIN 10.7 g/dl (13.5-17.5); LYMPH # 1.6 10^3/uL (1.5-5.0); LYMPH % 9.3 % (24.0-44.0); MEAN CORPUSCULAR HEMOGLOBIN 28.2 pg (27.0-33.0); MEAN CORPUSCULAR HGB CONC 31.5 g/dl (32.0-36.5); MEAN CORPUSCULAR VOLUME 89.5 fl (80.0-96.0); MONO # 1.2 10^3/uL (0.0-0.8); MONO % 7.1 % (2.0-8.0); NEUTROPHILS # 13.8 10^3/uL (1.5-8.5); NEUTROPHILS % 81.2 % (36.0-66.0); PLATELET COUNT, AUTOMATED 461 10^3/uL (150-450); WHITE BLOOD COUNT 16.9 10^3/uL (4.0-10.0)
[2022-07-09] MEDS ORDERED: methylPREDNISolone 125MG 2ML VIAL IV ONE (09:55)
[2022-07-09 10:01] LABS: ALBUMIN 3.4 G/DL (3.2-5.2); ALKALINE PHOSPHATASE 93 U/L (46-116); ALT/SGPT 27 U/L (7.0-40); AST/SGOT 25 U/L (<34); BILIRUBIN,DIRECT 0.1 MG/DL (<0.4); BILIRUBIN,TOTAL 0.3 MG/DL (0.3-1.2); BLOOD UREA NITROGEN 11 MG/DL (9-23); CALCIUM LEVEL 9.3 MG/DL (8.3-10.6); CARBON DIOXIDE LEVEL 35 MMOL/L (20-31); CHLORIDE LEVEL 94 MMOL/L (98-107); CPK CREATINE PHOSPHOKINASE 77 U/L (46-171); CREATININE FOR GFR 0.55 MG/DL (0.70-1.30); GLOMERULAR FILTRATION RATE > 60.0 (>49); GLUCOSE, FASTING 95 MG/DL (74-106); POTASSIUM SERUM 3.7 MMOL/L (3.5-5.1); SODIUM LEVEL 134 MMOL/L (136-145)
[2022-07-09 10:42] LABS: CK-MB VALUE MASS 3.6 NG/ML (<3.6); MB/CK RELATIVE INDEX 4.67 (< OR =4)
[2022-07-09 10:58] LABS: THYROID STIMULATING HORMONE 4.425 uIU/ML (0.55-4.78); THYROXINE (T4) 6.1 UG/DL (4.5-10.9)
[2022-07-09] MEDS ORDERED: FUROSEMIDE 20MG/2ML VIAL IV ONE (11:20)
[2022-07-09] MEDS ORDERED: cefTRIAXone SOD 2 GM in D5W MINI-BAG PLUS 50 ML IV ONE (11:25)
[2022-07-09] MEDS ORDERED: ISOVUE-370 76% 100ML VIAL As Ordered ONE (11:28)
[2022-07-09 12:29] LABS: CK-MB VALUE MASS 2.9 NG/ML (<3.6); MB/CK RELATIVE INDEX 4.46 (< OR =4)
[2022-07-09] MEDS ORDERED: DEXTROSE 50% 50ML SYRINGE IV PRN (13:30)
[2022-07-09] MEDS ORDERED: GLUCOSE 4GM CHEW TABLET PO PRN (13:30)
[2022-07-09] MEDS ORDERED: LEVALBUTEROL 1.25MG 0.5ML CONCENTRATE NEB INH PRN (13:30)
[2022-07-09] MEDS ORDERED: GLUCAGON INJ 1MG VIAL SC PRN (13:30)
[2022-07-09] MEDS: AZITHROMYCIN 250MG TABLET PO SCH (15:29)
[2022-07-09 15:30] VITALS: BP 128/90
[2022-07-09] MEDS: guaiFENesin 200 MG TAB PO SCH ×2 (15:30→20:18)
[2022-07-09] MEDS: LEVALBUTEROL 1.25MG 0.5ML CONCENTRATE NEB INH SCH ×2 (15:40→19:56)
[2022-07-09 16:00] VITALS: BP 124/77
[2022-07-09] MEDS ORDERED: CHOL125C6 PO (16:11)
[2022-07-09] MEDS ORDERED: CEFD300C41 PO (16:16)
[2022-07-09] MEDS ORDERED: TRAD5TAB PO (16:16)
[2022-07-09] MEDS ORDERED: RISATAB3 PO (16:32)
[2022-07-09] MEDS ORDERED: BACTDSTA PO (16:32)
[2022-07-09] MEDS ORDERED: PRED10TA2 PO (16:34)
[2022-07-09] MEDS ORDERED: ZINC50TA34 PO (16:35)
[2022-07-09] MEDS ORDERED: HOME MED LIST COMPLETE! XX SCH (16:35)
[2022-07-09] MEDS ORDERED: VITA-172 PO (16:35)
[2022-07-09] MEDS: BRIMONIDINE 0.1% OPHTH SOLN 5ML OU SCH (18:00)
[2022-07-09] MEDS: INSULIN LISPRO (NovoLOG) PER UNIT SC SCH ×2 (18:06→21:00)
[2022-07-09] MEDS: methylPREDNISolone 40MG 1ML VIAL IV SCH (18:06)
[2022-07-09] MEDS: ACETYLCYSTEINE 20% 4 ML VIAL (200MG/ML) INH SCH (19:56)
[2022-07-09] MEDS: BUDESONIDE 0.5 MG/2 ML INHALATION SUSPENSION INH SCH (19:56)
[2022-07-09] MEDS: IPRATROPIUM 0.02% SOLN 0.5MG 2.5ML NEB INH SCH (19:56)
[2022-07-09] MEDS: FORMOTEROL FUMARATE 20 MCG/2 ML INHALATION SOLUTION (PERFOROMIST) INH SCH (19:56)
[2022-07-09 20:00] VITALS: BP 112/78
[2022-07-09] MEDS: FERROUS SULFATE 325MG TAB PO SCH (20:17)
[2022-07-09] MEDS: MONTELUKAST 10 MG TAB PO SCH (20:17)
[2022-07-09] MEDS: LATANOPROST 0.005% OPHTH SOLN 2.5 ML OU SCH (20:18)
[2022-07-09] MEDS: CLOPIDOGREL 75 MG TAB PO SCH (20:18)
[2022-07-09] MEDS: FAMOTIDINE 20 MG TAB PO SCH (20:19)
[2022-07-09] MEDS: HEPARIN SOD (PORCINE) 5000UNITS/ML 1ML VIAL/SYRINGE SQ SCH (21:20)
[2022-07-09 23:52] VITALS: BP 115/71
[2022-07-10] MEDS: LEVALBUTEROL 1.25MG 0.5ML CONCENTRATE NEB INH SCH ×7 (00:29→19:40)
[2022-07-10] MEDS: guaiFENesin 200 MG TAB PO SCH ×6 (01:20→20:24)
[2022-07-10] MEDS: methylPREDNISolone 40MG 1ML VIAL IV SCH ×3 (01:20→18:04)
[2022-07-10 04:00] VITALS: BP 127/79
[2022-07-10 05:39] LABS: HEMATOCRIT 29.9 % (42.0-52.0); HEMOGLOBIN 9.5 g/dl (13.5-17.5); MEAN CORPUSCULAR HEMOGLOBIN 27.8 pg (27.0-33.0); MEAN CORPUSCULAR HGB CONC 31.8 g/dl (32.0-36.5); MEAN CORPUSCULAR VOLUME 87.4 fl (80.0-96.0); PLATELET COUNT, AUTOMATED 405 10^3/uL (150-450); RED BLOOD COUNT 3.42 10^6/uL (4.30-6.10); WHITE BLOOD COUNT 18.5 10^3/uL (4.0-10.0)
[2022-07-10] MEDS: HEPARIN SOD (PORCINE) 5000UNITS/ML 1ML VIAL/SYRINGE SQ SCH ×3 (05:40→22:27)
[2022-07-10] MEDS: LEVOTHYROXINE 50MCG TABLET (0.05MG) PO SCH (05:40)
[2022-07-10 06:40] LABS: ALKALINE PHOSPHATASE 83 U/L (46-116); ALT/SGPT 22 U/L (7.0-40); AST/SGOT 24 U/L (<34); BILIRUBIN,TOTAL 0.3 MG/DL (0.3-1.2); BLOOD UREA NITROGEN 16 MG/DL (9-23); CALCIUM LEVEL 8.9 MG/DL (8.3-10.6); CARBON DIOXIDE LEVEL 32 MMOL/L (20-31); CHLORIDE LEVEL 91 MMOL/L (98-107); CREATININE FOR GFR 0.61 MG/DL (0.70-1.30); GLOMERULAR FILTRATION RATE > 60.0 (>49); GLUCOSE, FASTING 169 MG/DL (74-106); MAGNESIUM LEVEL 1.8 MG/DL (1.8-2.4); POTASSIUM SERUM 4.1 MMOL/L (3.5-5.1); SODIUM LEVEL 132 MMOL/L (136-145); TOTAL PROTEIN 6.3 G/DL (5.7-8.2)
[2022-07-10] MEDS: FORMOTEROL FUMARATE 20 MCG/2 ML INHALATION SOLUTION (PERFOROMIST) INH SCH ×2 (07:23→19:39)
[2022-07-10] MEDS: ACETYLCYSTEINE 20% 4 ML VIAL (200MG/ML) INH SCH ×2 (07:23→19:40)
[2022-07-10] MEDS: BUDESONIDE 0.5 MG/2 ML INHALATION SUSPENSION INH SCH ×2 (07:24→19:39)
[2022-07-10] MEDS: IPRATROPIUM 0.02% SOLN 0.5MG 2.5ML NEB INH SCH ×5 (07:24→19:39)
[2022-07-10] MEDS: INSULIN LISPRO (NovoLOG) PER UNIT SC SCH ×4 (07:32→22:27)
[2022-07-10] MEDS: BRIMONIDINE 0.1% OPHTH SOLN 5ML OU SCH (07:33)
[2022-07-10] MEDS: ASCORBIC ACID 500 MG TAB PO SCH (07:39)
[2022-07-10] MEDS: BACTRIM 160MG/800MG DS TAB PO SCH ×2 (07:39→07:40)
[2022-07-10] MEDS: AZITHROMYCIN 250MG TABLET PO SCH (07:40)
[2022-07-10] MEDS: FOLIC ACID 1MG TAB PO SCH (07:40)
[2022-07-10] MEDS: FERROUS SULFATE 325MG TAB PO SCH ×2 (07:40→20:23)
[2022-07-10] MEDS: CYANOCOBALAMIN 500 MCG TAB PO SCH (07:41)
[2022-07-10] MEDS ORDERED: ceFAZolin SOD 1 GM in D5W MINI-BAG PLUS 50 ML IV SCH (07:55)
[2022-07-10 08:00] VITALS: BP 150/66
[2022-07-10] MEDS ORDERED: FUROSEMIDE 40 MG TAB PO SCH (09:00)
[2022-07-10] MEDS: LACTOBACILLUS ACIDOPHILUS CAP (BACID) PO SCH (10:31)
[2022-07-10 11:13] VITALS: BP 126/80
[2022-07-10] MEDS: cefTRIAXone SOD 2 GM in D5W MINI-BAG PLUS 50 ML IV SCH (11:57)
[2022-07-10 16:18] VITALS: BP 139/91
[2022-07-10 20:00] VITALS: BP 129/79
[2022-07-10] MEDS: FAMOTIDINE 20 MG TAB PO SCH (20:23)
[2022-07-10] MEDS: MONTELUKAST 10 MG TAB PO SCH (20:23)
[2022-07-10] MEDS: LATANOPROST 0.005% OPHTH SOLN 2.5 ML OU SCH (20:24)
[2022-07-10] MEDS: CLOPIDOGREL 75 MG TAB PO SCH (20:24)
[2022-07-10] MEDS ORDERED: FUROSEMIDE 20MG/2ML VIAL IV ONE (22:00)
[2022-07-11] VITALS (21 sets, daily range): BP systolic 122–137; BP diastolic 74–99; O2SAT 84–99
[2022-07-11] MEDS: LEVALBUTEROL 1.25MG 0.5ML CONCENTRATE NEB INH SCH ×7 (00:14→23:29)
[2022-07-11] MEDS: guaiFENesin 200 MG TAB PO SCH ×6 (01:17→21:01)
[2022-07-11] MEDS: methylPREDNISolone 40MG 1ML VIAL IV SCH ×3 (01:17→17:37)
[2022-07-11 05:39] LABS: BASO % 0.1 % (0.0-1.0); HEMATOCRIT 28.6 % (42.0-52.0); HEMOGLOBIN 9.3 g/dl (13.5-17.5); LYMPH # 0.2 10^3/uL (1.5-5.0); LYMPH % 1.5 % (24.0-44.0); MEAN CORPUSCULAR HGB CONC 32.5 g/dl (32.0-36.5); MEAN CORPUSCULAR VOLUME 86.1 fl (80.0-96.0); MONO # 0.5 10^3/uL (0.0-0.8); MONO % 3.6 % (2.0-8.0); NEUTROPHILS # 13.5 10^3/uL (1.5-8.5); NEUTROPHILS % 94.1 % (36.0-66.0); PLATELET COUNT, AUTOMATED 400 10^3/uL (150-450); RED BLOOD COUNT 3.32 10^6/uL (4.30-6.10); WHITE BLOOD COUNT 14.4 10^3/uL (4.0-10.0)
[2022-07-11] MEDS: HEPARIN SOD (PORCINE) 5000UNITS/ML 1ML VIAL/SYRINGE SQ SCH ×3 (05:44→21:07)
[2022-07-11] MEDS: LEVOTHYROXINE 50MCG TABLET (0.05MG) PO SCH (05:44)
[2022-07-11 06:05] LABS: ALBUMIN 2.8 G/DL (3.2-5.2); ALKALINE PHOSPHATASE 78 U/L (46-116); ALT/SGPT 21 U/L (7.0-40); AST/SGOT 20 U/L (<34); BILIRUBIN,TOTAL 0.3 MG/DL (0.3-1.2); BLOOD UREA NITROGEN 28 MG/DL (9-23); CALCIUM LEVEL 8.6 MG/DL (8.3-10.6); CARBON DIOXIDE LEVEL 31 MMOL/L (20-31); CHLORIDE LEVEL 93 MMOL/L (98-107); CREATININE FOR GFR 0.59 MG/DL (0.70-1.30); GLOMERULAR FILTRATION RATE > 60.0 (>49); GLUCOSE, FASTING 141 MG/DL (74-106); MAGNESIUM LEVEL 1.9 MG/DL (1.8-2.4); POTASSIUM SERUM 3.9 MMOL/L (3.5-5.1); SODIUM LEVEL 131 MMOL/L (136-145); TOTAL PROTEIN 5.9 G/DL (5.7-8.2)
[2022-07-11] MEDS: IPRATROPIUM 0.02% SOLN 0.5MG 2.5ML NEB INH SCH ×5 (07:06→23:29)
[2022-07-11] MEDS: ACETYLCYSTEINE 20% 4 ML VIAL (200MG/ML) INH SCH ×4 (07:06→23:30)
[2022-07-11] MEDS: BUDESONIDE 0.5 MG/2 ML INHALATION SUSPENSION INH SCH ×2 (07:07→20:43)
[2022-07-11] MEDS: FORMOTEROL FUMARATE 20 MCG/2 ML INHALATION SOLUTION (PERFOROMIST) INH SCH ×2 (07:07→20:43)
[2022-07-11] MEDS: INSULIN LISPRO (NovoLOG) PER UNIT SC SCH ×4 (08:56→21:00)
[2022-07-11] MEDS: BRIMONIDINE 0.1% OPHTH SOLN 5ML OU SCH ×3 (08:56→17:37)
[2022-07-11] MEDS: ACETAMINOPHEN TAB 650MG DOSE (2X325MG) PO PRN (08:57)
[2022-07-11] MEDS: LACTOBACILLUS ACIDOPHILUS CAP (BACID) PO SCH (08:57)
[2022-07-11] MEDS: AZITHROMYCIN 250MG TABLET PO SCH (08:57)
[2022-07-11] MEDS: CYANOCOBALAMIN 500 MCG TAB PO SCH (08:58)
[2022-07-11] MEDS: ASCORBIC ACID 500 MG TAB PO SCH (08:58)
[2022-07-11] MEDS: FOLIC ACID 1MG TAB PO SCH (08:58)
[2022-07-11] MEDS: FERROUS SULFATE 325MG TAB PO SCH ×2 (08:58→20:59)
[2022-07-11] MEDS: cefTRIAXone SOD 2 GM in D5W MINI-BAG PLUS 50 ML IV SCH (13:00)
[2022-07-11] MEDS: FAMOTIDINE 20 MG TAB PO SCH (21:00)
[2022-07-11] MEDS: CLOPIDOGREL 75 MG TAB PO SCH (21:00)
[2022-07-11] MEDS: MONTELUKAST 10 MG TAB PO SCH (21:01)
[2022-07-11] MEDS: LATANOPROST 0.005% OPHTH SOLN 2.5 ML OU SCH (21:06)
[2022-07-12] VITALS (23 sets, daily range): BP systolic 100–133; BP diastolic 71–84; O2SAT 86–99
[2022-07-12] MEDS: guaiFENesin 200 MG TAB PO SCH ×6 (01:19→21:00)
[2022-07-12] MEDS: methylPREDNISolone 40MG 1ML VIAL IV SCH ×3 (01:20→17:50)
[2022-07-12] MEDS: LEVALBUTEROL 1.25MG 0.5ML CONCENTRATE NEB INH SCH ×6 (04:04→23:33)
[2022-07-12] MEDS: ACETYLCYSTEINE 20% 4 ML VIAL (200MG/ML) INH SCH ×6 (04:04→21:06)
[2022-07-12] MEDS: IPRATROPIUM 0.02% SOLN 0.5MG 2.5ML NEB INH SCH ×6 (04:04→23:33)
[2022-07-12 05:15] LABS: BASO % 0.2 % (0.0-1.0); HEMATOCRIT 30.4 % (42.0-52.0); HEMOGLOBIN 9.7 g/dl (13.5-17.5); LYMPH # 0.3 10^3/uL (1.5-5.0); LYMPH % 1.4 % (24.0-44.0); MEAN CORPUSCULAR HEMOGLOBIN 27.9 pg (27.0-33.0); MEAN CORPUSCULAR HGB CONC 31.9 g/dl (32.0-36.5); MEAN CORPUSCULAR VOLUME 87.4 fl (80.0-96.0); MONO # 0.7 10^3/uL (0.0-0.8); MONO % 3.8 % (2.0-8.0); NEUTROPHILS # 16.9 10^3/uL (1.5-8.5); NEUTROPHILS % 93.8 % (36.0-66.0); PLATELET COUNT, AUTOMATED 408 10^3/uL (150-450); RED BLOOD COUNT 3.48 10^6/uL (4.30-6.10)
[2022-07-12 05:41] LABS: ALBUMIN 3.1 G/DL (3.2-5.2); ALKALINE PHOSPHATASE 95 U/L (46-116); ALT/SGPT 66 U/L (7.0-40); AST/SGOT 54 U/L (<34); BILIRUBIN,TOTAL 0.3 MG/DL (0.3-1.2); BLOOD UREA NITROGEN 25 MG/DL (9-23); CARBON DIOXIDE LEVEL 30 MMOL/L (20-31); CHLORIDE LEVEL 93 MMOL/L (98-107); CREATININE FOR GFR 0.55 MG/DL (0.70-1.30); GLOMERULAR FILTRATION RATE > 60.0 (>49); GLUCOSE, FASTING 211 MG/DL (74-106); MAGNESIUM LEVEL 2.2 MG/DL (1.8-2.4); POTASSIUM SERUM 4.6 MMOL/L (3.5-5.1); SODIUM LEVEL 132 MMOL/L (136-145); TOTAL PROTEIN 6.2 G/DL (5.7-8.2)
[2022-07-12] MEDS: LEVOTHYROXINE 50MCG TABLET (0.05MG) PO SCH (05:44)
[2022-07-12] MEDS: HEPARIN SOD (PORCINE) 5000UNITS/ML 1ML VIAL/SYRINGE SQ SCH ×3 (05:45→21:01)
[2022-07-12] MEDS: FORMOTEROL FUMARATE 20 MCG/2 ML INHALATION SOLUTION (PERFOROMIST) INH SCH ×2 (07:06→21:06)
[2022-07-12] MEDS: BUDESONIDE 0.5 MG/2 ML INHALATION SUSPENSION INH SCH ×3 (07:06→21:06)
[2022-07-12] MEDS: CYANOCOBALAMIN 500 MCG TAB PO SCH (08:32)
[2022-07-12] MEDS: FERROUS SULFATE 325MG TAB PO SCH ×2 (08:32→21:00)
[2022-07-12] MEDS: ASCORBIC ACID 500 MG TAB PO SCH (08:32)
[2022-07-12] MEDS: FOLIC ACID 1MG TAB PO SCH (08:32)
[2022-07-12] MEDS: BRIMONIDINE 0.1% OPHTH SOLN 5ML OU SCH ×2 (08:32→17:51)
[2022-07-12] MEDS: LACTOBACILLUS ACIDOPHILUS CAP (BACID) PO SCH (08:34)
[2022-07-12] MEDS: INSULIN LISPRO (NovoLOG) PER UNIT SC SCH ×4 (08:34→21:08)
[2022-07-12] MEDS: cefTRIAXone SOD 2 GM in D5W MINI-BAG PLUS 50 ML IV SCH (12:21)
[2022-07-12] MEDS: CLOPIDOGREL 75 MG TAB PO SCH (21:00)
[2022-07-12] MEDS: LATANOPROST 0.005% OPHTH SOLN 2.5 ML OU SCH (21:00)
[2022-07-12] MEDS: FAMOTIDINE 20 MG TAB PO SCH (21:00)
[2022-07-12] MEDS: MONTELUKAST 10 MG TAB PO SCH (21:00)
[2022-07-12] MEDS: ACETAMINOPHEN TAB 650MG DOSE (2X325MG) PO PRN (21:00)
[2022-07-13] VITALS (14 sets, daily range): BP systolic 122–171; BP diastolic 71–102; O2SAT 87–99
[2022-07-13] MEDS: methylPREDNISolone 40MG 1ML VIAL IV SCH ×3 (01:24→17:51)
[2022-07-13] MEDS: guaiFENesin 200 MG TAB PO SCH ×6 (01:25→21:43)
[2022-07-13] MEDS: IPRATROPIUM 0.02% SOLN 0.5MG 2.5ML NEB INH SCH ×7 (03:38→23:02)
[2022-07-13] MEDS: LEVALBUTEROL 1.25MG 0.5ML CONCENTRATE NEB INH SCH ×7 (03:40→23:02)
[2022-07-13] MEDS: ACETYLCYSTEINE 20% 4 ML VIAL (200MG/ML) INH SCH ×3 (03:41→07:08)
[2022-07-13] MEDS: HEPARIN SOD (PORCINE) 5000UNITS/ML 1ML VIAL/SYRINGE SQ SCH ×3 (05:16→21:43)
[2022-07-13] MEDS: LEVOTHYROXINE 50MCG TABLET (0.05MG) PO SCH (05:16)
[2022-07-13 06:21] LABS: BASO % 0.1 % (0.0-1.0); HEMATOCRIT 29.5 % (42.0-52.0); HEMOGLOBIN 9.4 g/dl (13.5-17.5); LYMPH # 0.3 10^3/uL (1.5-5.0); LYMPH % 1.8 % (24.0-44.0); MEAN CORPUSCULAR HEMOGLOBIN 27.8 pg (27.0-33.0); MEAN CORPUSCULAR HGB CONC 31.9 g/dl (32.0-36.5); MEAN CORPUSCULAR VOLUME 87.3 fl (80.0-96.0); MONO # 0.5 10^3/uL (0.0-0.8); MONO % 3.6 % (2.0-8.0); NEUTROPHILS # 12.9 10^3/uL (1.5-8.5); NEUTROPHILS % 93.6 % (36.0-66.0); PLATELET COUNT, AUTOMATED 342 10^3/uL (150-450); RED BLOOD COUNT 3.38 10^6/uL (4.30-6.10); WHITE BLOOD COUNT 13.8 10^3/uL (4.0-10.0)
[2022-07-13 06:48] LABS: ALBUMIN 2.9 G/DL (3.2-5.2); ALKALINE PHOSPHATASE 99 U/L (46-116); ALT/SGPT 102 U/L (7.0-40); AST/SGOT 77 U/L (<34); BILIRUBIN,TOTAL 0.3 MG/DL (0.3-1.2); BLOOD UREA NITROGEN 31 MG/DL (9-23); CALCIUM LEVEL 8.2 MG/DL (8.3-10.6); CARBON DIOXIDE LEVEL 30 MMOL/L (20-31); CHLORIDE LEVEL 89 MMOL/L (98-107); CREATININE FOR GFR 0.58 MG/DL (0.70-1.30); GLOMERULAR FILTRATION RATE > 60.0 (>49); GLUCOSE, FASTING 216 MG/DL (74-106); POTASSIUM SERUM 4.6 MMOL/L (3.5-5.1); SODIUM LEVEL 127 MMOL/L (136-145); TOTAL PROTEIN 6.1 G/DL (5.7-8.2)
[2022-07-13] MEDS: BUDESONIDE 0.5 MG/2 ML INHALATION SUSPENSION INH SCH ×2 (07:07→19:07)
[2022-07-13] MEDS: FORMOTEROL FUMARATE 20 MCG/2 ML INHALATION SOLUTION (PERFOROMIST) INH SCH ×2 (07:07→19:06)
[2022-07-13] MEDS: FERROUS SULFATE 325MG TAB PO SCH ×2 (08:07→21:43)
[2022-07-13] MEDS: CYANOCOBALAMIN 500 MCG TAB PO SCH (08:07)
[2022-07-13] MEDS: BRIMONIDINE 0.1% OPHTH SOLN 5ML OU SCH ×2 (08:07→17:53)
[2022-07-13] MEDS: INSULIN LISPRO (NovoLOG) PER UNIT SC SCH ×4 (08:07→21:42)
[2022-07-13] MEDS: ASCORBIC ACID 500 MG TAB PO SCH (08:08)
[2022-07-13] MEDS: LACTOBACILLUS ACIDOPHILUS CAP (BACID) PO SCH (08:08)
[2022-07-13] MEDS: FOLIC ACID 1MG TAB PO SCH (08:09)
[2022-07-13] MEDS: BACTRIM 160MG/800MG DS TAB PO SCH (08:09)
[2022-07-13] MEDS ORDERED: FUROSEMIDE 40 MG TAB PO ONE (08:15)
[2022-07-13] MEDS: SODIUM CHLORIDE HYPERTONIC 3% 15ML NEB SOL INH SCH ×4 (11:15→23:02)
[2022-07-13] MEDS: FAMOTIDINE 20 MG TAB PO SCH (21:42)
[2022-07-13] MEDS: MONTELUKAST 10 MG TAB PO SCH (21:42)
[2022-07-13] MEDS: CLOPIDOGREL 75 MG TAB PO SCH (21:42)
[2022-07-13] MEDS: LATANOPROST 0.005% OPHTH SOLN 2.5 ML OU SCH (21:44)
[2022-07-14] VITALS (12 sets, daily range): BP systolic 116–131; BP diastolic 72–74; O2SAT 98–99
[2022-07-14] MEDS: guaiFENesin 200 MG TAB PO SCH ×5 (01:59→17:00)
[2022-07-14] MEDS: methylPREDNISolone 40MG 1ML VIAL IV SCH ×2 (01:59→11:14)
[2022-07-14] MEDS: IPRATROPIUM 0.02% SOLN 0.5MG 2.5ML NEB INH SCH ×4 (03:16→15:47)
[2022-07-14] MEDS: LEVALBUTEROL 1.25MG 0.5ML CONCENTRATE NEB INH SCH ×4 (03:16→15:47)
[2022-07-14] MEDS: SODIUM CHLORIDE HYPERTONIC 3% 15ML NEB SOL INH SCH ×4 (03:17→15:47)
[2022-07-14] MEDS: LEVOTHYROXINE 50MCG TABLET (0.05MG) PO SCH (05:52)
[2022-07-14] MEDS: HEPARIN SOD (PORCINE) 5000UNITS/ML 1ML VIAL/SYRINGE SQ SCH ×2 (05:52→14:16)
[2022-07-14 05:58] LABS: BASO % 0.2 % (0.0-1.0); HEMOGLOBIN 9.3 g/dl (13.5-17.5); LYMPH # 0.3 10^3/uL (1.5-5.0); LYMPH % 2.2 % (24.0-44.0); MEAN CORPUSCULAR HEMOGLOBIN 27.7 pg (27.0-33.0); MEAN CORPUSCULAR HGB CONC 32.1 g/dl (32.0-36.5); MEAN CORPUSCULAR VOLUME 86.3 fl (80.0-96.0); MONO # 0.6 10^3/uL (0.0-0.8); MONO % 4.4 % (2.0-8.0); NEUTROPHILS # 11.4 10^3/uL (1.5-8.5); NEUTROPHILS % 92.2 % (36.0-66.0); PLATELET COUNT, AUTOMATED 334 10^3/uL (150-450); RED BLOOD COUNT 3.36 10^6/uL (4.30-6.10); WHITE BLOOD COUNT 12.4 10^3/uL (4.0-10.0)
[2022-07-14 06:28] LABS: ALBUMIN 3.1 G/DL (3.2-5.2); ALKALINE PHOSPHATASE 99 U/L (46-116); ALT/SGPT 95 U/L (7.0-40); AST/SGOT 41 U/L (<34); BILIRUBIN,TOTAL 0.4 MG/DL (0.3-1.2); BLOOD UREA NITROGEN 30 MG/DL (9-23); CALCIUM LEVEL 8.5 MG/DL (8.3-10.6); CARBON DIOXIDE LEVEL 32 MMOL/L (20-31); CHLORIDE LEVEL 91 MMOL/L (98-107); CREATININE FOR GFR 0.64 MG/DL (0.70-1.30); GLOMERULAR FILTRATION RATE > 60.0 (>49); GLUCOSE, FASTING 168 MG/DL (74-106); MAGNESIUM LEVEL 2.1 MG/DL (1.8-2.4); POTASSIUM SERUM 5.2 MMOL/L (3.5-5.1); SODIUM LEVEL 131 MMOL/L (136-145); TOTAL PROTEIN 6.2 G/DL (5.7-8.2)
[2022-07-14] MEDS: FORMOTEROL FUMARATE 20 MCG/2 ML INHALATION SOLUTION (PERFOROMIST) INH SCH (07:15)
[2022-07-14] MEDS: BUDESONIDE 0.5 MG/2 ML INHALATION SUSPENSION INH SCH (07:15)
[2022-07-14] MEDS: ASCORBIC ACID 500 MG TAB PO SCH (08:36)
[2022-07-14] MEDS: INSULIN LISPRO (NovoLOG) PER UNIT SC SCH ×3 (08:36→17:30)
[2022-07-14] MEDS: FERROUS SULFATE 325MG TAB PO SCH (08:36)
[2022-07-14] MEDS: BRIMONIDINE 0.1% OPHTH SOLN 5ML OU SCH ×2 (08:36→17:29)
[2022-07-14] MEDS: FOLIC ACID 1MG TAB PO SCH (08:36)
[2022-07-14] MEDS: LACTOBACILLUS ACIDOPHILUS CAP (BACID) PO SCH (08:36)
[2022-07-14] MEDS: CYANOCOBALAMIN 500 MCG TAB PO SCH (08:36)
[2022-07-14] MEDS ORDERED: FUROSEMIDE 40 MG TAB PO ONE (10:35)
[2022-07-14 15:57] LABS: BLOOD UREA NITROGEN 33 MG/DL (9-23); CALCIUM LEVEL 8.2 MG/DL (8.3-10.6); CARBON DIOXIDE LEVEL 31 MMOL/L (20-31); CHLORIDE LEVEL 90 MMOL/L (98-107); CREATININE FOR GFR 0.65 MG/DL (0.70-1.30); GLOMERULAR FILTRATION RATE > 60.0 (>49); GLUCOSE, FASTING 319 MG/DL (74-106); POTASSIUM SERUM 4.1 MMOL/L (3.5-5.1); SODIUM LEVEL 131 MMOL/L (136-145)
[2022-07-14] MEDS ORDERED: SCOPOLAMINE 1MG TRANSDERMAL PATCH TOP PRN (17:00)
[2022-07-14] MEDS ORDERED: ONDANSETRON 4MG ORAL DISINTEGRATING TAB PO PRN (17:00)
[2022-07-14] MEDS ORDERED: MORPHINE 10MG/0.5ML ORAL CONCENTRATE SOLUTION U/D SL PRN (17:00)
[2022-07-14] MEDS ORDERED: LORazepam 1 MG TAB PO PRN (17:00)
[2022-07-14] MEDS ORDERED: HYOSCYAMINE SULFATE 0.125 MG SUBL TABLET PO PRN (17:00)
[2022-07-14] MEDS ORDERED: MORPHINE 2 MG/ML 1ML VIAL IV PRN (17:00)
[2022-07-14] MEDS ORDERED: ONDA4TAB6 PO (17:15)
[2022-07-14] MEDS ORDERED: ATIV1TAB7 PO (17:15)
[2022-07-14] MEDS ORDERED: GUAI20TA PO (17:15)
[2022-07-14] MEDS ORDERED: MORP1SOL SL (17:15)
[2022-07-14] MEDS ORDERED: ACET1TAB55 PO (17:15)
[2022-07-14] MEDS ORDERED: PRED10TA2 PO (17:15)
[2022-07-14] MEDS ORDERED: TRAN1DIS4 TOP (17:15)
[2022-07-15] MEDS ORDERED: predniSONE 20 MG TAB PO SCH (09:00)
== END 2022-07-14 18:30 | disposition hospice, home (50) | DRG 191 ==
LOC: M ED 08:57 → M ED INP 13:30 → ENRESERV 14:26 → M PCU 15:01
PROVIDERS: ADMIT Family Medicine; ATTEND Family Medicine
PROC: B246ZZZ Ultrasonography of Right and Left Heart (ICD-10-PCS; principal; 2022-07-11)
DX: J44.1 Chronic obstructive pulmonary disease with (acute) exacerbation (principal); J96.11 Chronic respiratory failure with hypoxia; I50.22 Chronic systolic (congestive) heart failure; J45.901 Unspecified asthma with (acute) exacerbation; I47.1 Supraventricular tachycardia; I5A Non-ischemic myocardial injury (non-traumatic); I11.0 Hypertensive heart disease with heart failure; I25.10 Atherosclerotic heart disease of native coronary artery without angina pectoris; E11.51 Type 2 diabetes mellitus with diabetic peripheral angiopathy without gangrene; G47.33 Obstructive sleep apnea (adult) (pediatric); J84.10 Pulmonary fibrosis, unspecified; E03.9 Hypothyroidism, unspecified; I27.20 Pulmonary hypertension, unspecified; F32.A Depression, unspecified; Z66 Do not resuscitate; Z99.81 Dependence on supplemental oxygen; Z95.3 Presence of xenogenic heart valve; Z95.5 Presence of coronary angioplasty implant and graft; Z95.820 Peripheral vascular angioplasty status with implants and grafts; Z79.02 Long term (current) use of antithrombotics/antiplatelets; Z79.890 Hormone replacement therapy; Z79.84 Long term (current) use of oral hypoglycemic drugs; Z79.899 Other long term (current) drug therapy; Z88.1 Allergy status to other antibiotic agents; Z88.6 Allergy status to analgesic agent; Z88.8 Allergy status to other drugs, medicaments and biological substances; Z79.52 Long term (current) use of systemic steroids; Z87.891 Personal history of nicotine dependence; Z74.09 Other reduced mobility